=== PATIENT | female | born 1950 | race Caucasian/White ===

== ENCOUNTER 2019-02-05 10:22 | Inpatient (IN) | payer MEDICARE, SELFPAY ==
[2019-02-05 10:25] VITALS: BP 146/89; PULSE 89; RESP 16; TEMP 36.6; O2SAT 99; BMI 25.1
--- NOTE | 2019-02-05 10:43 | CT_ITS ---
STUDY: CT ABDOMEN AND PELVIS WITH CONTRAST REASON FOR EXAM: Female, 68 years old. 4 day history of right lower quadrant pain. RADIATION DOSAGE (If Supplied By Facility): CTDIvol = ( 51.88 ) mGy, DLP = ( 873.28 ) mGycm TECHNIQUE: Transaxial images were obtained from the dome of the diaphragm to the symphysis pubis with oral contrast. 100ml IV/Oral Isovue 300 was administered. Sagittal and coronal images were reconstructed. Individualized dose optimization techniques were used for this CT. COMPARISON: None. FINDINGS: Mild degree of increased markings at the lung bases suggestive of bibasilar atelectasis and/or scarring. Calcified granuloma in the right lower lobe. The visualized portions of the heart are within normal limits. There is decreased attenuation of the liver consistent with steatosis. Normal gallbladder and extrahepatic biliary system. There are multiple benign calcified granulomata of the spleen. Normal pancreas. Normal bilateral adrenal glands. There is a 4.9 cm x 4.6 cm cyst in the mid medial aspect of the right kidney. There is a Newell's cyst in the inferior posterior aspect of the left kidney. There is a small hiatal hernia. Normal small intestine. There is diverticulosis, with thickening of the rectal sigmoid colon wall, and pericolonic inflammation changes consistent with acute diverticulitis. There is evidence of a 3.1 cm x 3.7 cm soft tissue density with air within it along the mesenteric side of the rectosigmoid colon. This may represent localized perforation with phlegmon. A small amount of free fluid is seen in the cul-de-sac. There is non-visualization of the appendix. There is scattered atherosclerotic calcification of the abdominal aorta, without a demonstrated aneurysm. Normal inferior vena cava. Normal retroperitoneum. Normal urinary bladder. There is absence of the uterus consistent with a prior hysterectomy. There is a small umbilical hernia containing fat. Disc space narrowing and degeneration at the L4-L5 and L5-S1 levels. CT/Abdomen/Pelvis WITH Contrast IMPRESSION: Inflammatory changes in the rectosigmoid colon as described with findings suggestive of localized perforation and phlegmon formation as described. Radiographic follow-up is recommended. Small amount of free fluid in the cul-de-sac. Electronically Signed: Tan Willis, at 13:10 EDT , Service support ,
[2019-02-05 10:50] LABS: Absolute Lymphocyte Count 2.07 X10^3/ul (0.83-4.51); Absolute Neutrophil Count 9.5 X10^3/uL (2.0-7.7); Basophil# 0.03 X10^3/uL; Basophil% 0.2 % (0-1); Eosinophil# 0.06 X10^3/uL; Eosinophils% 0.5 % (0-5); Hematocrit 42.4 % (37-47); Hemoglobin 14.3 g/dl (12.0-15.0); Lymphocyte # 2.07 X10^3/ul (4.0); Lymphocyte % 15.8 % (19-41); Mean Corp Hgb Conc 33.7 g/gl (32-36); Mean Corpuscular Hgb 30.2 pg (27.0-32.0); Mean Corpuscular Volume 89.6 fL (81-99); Mean Platelet Vol. 9.5 fl (6.2-12.0); Monocyte# 1.43 X10^3/uL; Monocyte% 10.9 % (0-10); Neutrophil # 9.53 X10^3/uL (2.7-7.7); Neutrophil % 72.4 % (47-70); POSITIVE COUNT NO; POSITIVE DIFFERENTIAL NO; POSITIVE MORPHOLOGY NO; Platelet Count 367 K/mm3 (150-450); RBC Distribution Width CV 12.9 % (11.6-14.6); RBC Distribution Width SD 42.5 fl (35.1-43.9); Red Blood Count 4.73 M/mm3 (4.2-5.4); White Blood Count 13.1 K/mm3 (4.4-11.0)
--- NOTE | 2019-02-05 10:58 | ED.VISSUMM ---
- ER Visit Summary Date of Service: 02/05/19 Chief Complaint: Abdominal pain History of Present Illness: The patient is a 68 F who presents emergency department with 5 days of abdominal pain. Patient states that on Saturday morning she had a late breakfast and had a breakfast burrito. She states around 1230 she began to have a severe abdominal cramps. It waxed and waned since that time. She notes nausea but no vomiting. She notes slight amount of diarrhea. Subjective fever. She notes the pain is mostly on the right mid to upper side of her abdomen. She has not had appendectomy or cholecystectomy. No history of pancreatitis. Physical Examination: Afebrile vital signs are stable Gen: Well-nourished well-developed Head: Normocephalic atraumatic Eyes: Perrl EOMI ENT: TMs clear no rhinorrhea moist mucous membranes Neck: Supple no lymphadenopathy no JVD nontender CVS: Regular rate rhythm no murmurs normal S1-S2 Respiratory: No distress clear to auscultation bilaterally chest nontender Abdomen: Soft moderate tenderness on the right side of her abdomen without guarding or rebound nondistended normal bowel sounds no masses patient also reports tenderness in the suprapubic left lower quadrant Back: Nontender Extremity: Nontender no edema Skin: Normal color no rash Neuro: alert orientated ?3 CN II-XII intact normal strength sensation Psych: Normal affect normal mood Test Results: White count is elevated at 13. CT of the abdomen pelvis demonstrates sigmoid diverticulitis with perforation and phlegmon formation. Emergency Department Course and Treatment: Patient received a dose of IV Zosyn. I spoke with Dr. Porras who performed her colonoscopy as well as hospitalist. Impression: 1. Acute sigmoid perforated diverticulitis with phlegmon formation This note was generated with [employer] dictation software. It may contain incorrect words, spelling, and punctuation that were not noted in review of the chart prior to signing ED Disposition - Plan for ED Patient: Referrals: Pantera Thomas III, MD [Primary Care Provider] -
[2019-02-05 11:11] LABS: AST(SGOT) 13 U/L (15-37); Alanine Aminotransfer ALT/SGPT 18 U/L (13-56); Albumin, Serum 3.5 g/dL (3.2-5.0); Alkaline Phosphatase 97 U/L (45-117); Anion Gap 10 (5-15); BUN 23 mg/dL (7-18); Bilirubin, Direct 0.17 mg/dL (0.00-0.30); Calcium,Total 9.1 mg/dL (8.5-10.1); Chloride 103 mmol/L (98-107); EST Glomerular Filtration Rate 59 mL/min (>60); Est Glom Filt Rate - Afr Amer 71 mL/min (>60); Estimated Creatinine Clearance 55.49 ml/min; Globulin 4.6 g/dL (2.2-4.2); Glucose 130 mg/dL (74-106); Lipase 126 U/L (73-393); Potassium 3.4 mmol/L (3.5-5.1); Protein, Total 8.1 g/dL (6.4-8.2); Sodium Level 139 mmol/L (136-145)
[2019-02-05 11:22] LABS: Bacteria 0 SEEN /hpf (None Seen)
[2019-02-05 11:28] LABS: Color, Urine Yellow (Yellow); Glucose, Dipstick Normal (Normal); Ketone-Dipstick 5 mg/dl (Negative); Leukocyte Esterase-Dipstick 25 /ul (Negative); Nitrite-Dipstick Negative (Negative); Occult Blood-Urine 50 /ul (Negative); Protein-Dipstick 30 mg/dl (Negative); Specific Gravity, Urine 1.005 (1.002-1.030); Urine Bilirubin Dipstick Negative (Negative); Urine Clarity Clear (Clear); Urine Urobilinogen Normal (Normal)
[2019-02-05 11:37] LABS: Mucous, Urine 1+ /hpf (<or=2+); Red Blood Cells-Urine 0-5 SEEN /hpf (0-5); Squamous Epithelial Cells - UA 0-5 SEEN /hpf (5-10); White Blood Cells 0-5 SEEN /hpf (0-5)
--- NOTE | 2019-02-05 13:53 | PCM.HP.STD ---
Problem List (1) Acute diverticulitis Status: Acute (2) Hypertension Status: Chronic Qualifiers: Hypertension type: essential hypertension Qualified Code(s): I10 - Essential (primary) hypertension (3) Hypokalemia Status: Acute History of Present Illness Date of Admission: 02/05/19 Chief Complaint: Abdominal pain - 5 days The patient is a 68 year old F with PMHx of Hypertension, h/o breast CA s/p lumpectomy, s/p radiation and chemotherapy, s/p recent colonoscopy which showed diverticulosis, comes in with abdominal pain and anorexia. It is associated with nausea, anorexia, subjective fever and chills. She had been managing it conservatively by resting at home with no improvement. She went to urgent care this morning was told that she has a fever. Abdominal pain is described as crampy, located in the suprapubic and sometimes in the right and left lower quadrant. She denies any diarrhea or hematochezia or hematemesis. Vitals in ED showed temperature was 90 7.8F, heart rate was 89, blood pressure is 146/89, respiratory rate was 16, SPO2 is 99% on room air. Her admitting blood work showed WBC count of 13.1, hemoglobin 14.3, platelet 367, sodium is 139, potassium 3.4, chloride 103, bicarbonate 26, BUN is 23, creatinine is 1.0. UA is unremarkable. CT scan of the abdomen and pelvic showed inflammatory changes in the rectosigmoid colon, with signs suggestive of localized perforation and phlegmon formation. 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 Denies: Chills, Fever, Malaise, Weight Change Eyes: Denies: Blurred vision, Cataracts, Conjunctivae Inflammation, Pain, Redness, Vision Change HEENT: Denies: Difficulty Hearing, Difficulty Swallowing, Head Aches, Hearing Changes, Sinus Congestion, Sinus Drainage Cardiovascular: Denies: Chest Pain, Claudication, Chest Pressure, Light Headedness, Orthopnea, Palpitations, Paroxysmal Noc. Dyspnea Respiratory: Denies: Cough, Hemoptysis, Shortness of Breath, Shortness of breath at rest, Shortness of breath upon exertion, Sputum production Gastrointestinal: Reports: Abdominal Pain, Nausea. Denies: Constipation, Hematemesis, Hematochezia, Vomiting Genitourinary: Denies: Dysuria, Frequency, Incontinence Gynecological: Denies: Breast symptoms, Excessively long or heavy periods, Vaginal discharge, Vaginal itching Musculoskeletal: Denies: Joint Pain, Joint stiffness, Joint swelling, Joint Tenderness Skin: Denies: Rash, Wounds Neurological: Denies: Difficulty swallowing, Focal weakness, Numbness, Tingling Psychiatric: Denies: Anxiety, Depression, Homicidal Ideations, Suicidal Ideations Endocrine: Denies: Change in Body Habitus, Heat/ Cold Intolerance Hematologic/ Lymphatic: Denies: Easy Bruising, Easy Bleeding VTE Information - Inpt Only VTE Present on Admission: No VTE Pharm Prophylaxis ordered?: Yes Patient Problems: Active and Suspected Problems Acute diverticulitis (Acute) Hypokalemia (Acute) - Physical Exam General: Alert, Oriented x3, Cooperative, No apparent distress HEENT: Atraumatic, PERRLA, EOMI, Normocephalic Oral: Moist Mucosa Neck: Supple Lungs: Clear to auscultation, Normal air movement Cardiovascular: Regular rate, Regular Rhythm, Normal S1, Normal S2, No murmurs Abdomen: Bowel Sounds Present, Soft, Non-Distended, No Hepato-splenomegaly, Tender - tenderness over lower abdominal, with guarding, no rebound tenderness Extremities: No edema Skin: No rashes, No breakdown Musculoskeletal: No Tenderness to Palpation of Joints or Extremities Lymphatic: No Cervical, Supraclavicular, or Inguinal Adenopathy Neurological: Cranial nerves II-XII grossly intact, Neuro grossly intact Psych/Mental Status: Normal Affect, Appropriate Vital Signs Temp Pulse Resp BP Pulse Ox 97.8 F 89 16 146/89 H 99 02/05/19 10:25 02/05/19 10:25 02/05/19 10:25 02/05/19 10:25 02/05/19 10:25 Weight: 77.111 kg Body Mass Index (BMI) 25.1 Laboratory Tests Past 24 Hrs 02/05/19 02/05/19 02/05/19 10:34 10:34 11:18 WBC 13.1 H RBC 4.73 Hgb 14.3 Hct 42.4 MCV 89.6 MCH 30.2 MCHC 33.7 RDW 12.9 RDW Differential 42.5 Plt Count 367 MPV 9.5 Immature Gran % (Auto) 0.200 Neut % (Auto) 72.4 H Lymph % (Auto) 15.8 L [place] % (Auto) 10.9 H Eos % (Auto) 0.5 Baso % (Auto) 0.2 Absolute Neuts (auto) 9.5 H Absolute Lymphs (auto) 2.07 Total Counted Not Reportable Sodium 139 Potassium 3.4 L Chloride 103 Carbon Dioxide 26.0 Anion Gap 10 BUN 23 H Creatinine 1.00 Estim Creat Clear Calc 55.49 Est GFR (MDRD) Af Amer 71 Est GFR (MDRD) Non-Af 59 L BUN/Creatinine Ratio 23.0 H Glucose 130 H Calcium 9.1 Total Bilirubin 0.80 Direct Bilirubin 0.17 AST 13 L ALT 18 Alkaline Phosphatase 97 Total Protein 8.1 Albumin 3.5 Globulin 4.6 H Lipase 126 Urine Color Yellow Urine Clarity Clear Urine pH 7.0 Ur Specific [place] 1.005 Urine Protein 30 H Urine Glucose (UA) Normal Urine Ketones 5 H Urine Occult Blood 50 H Urine Nitrite Negative Urine Bilirubin Negative Urine Urobilinogen Normal Ur Leukocyte Esterase 25 H Urine RBC 0-5 SEEN Urine WBC 0-5 SEEN Ur Squamous Epith Cells 0-5 SEEN Urine Bacteria 0 SEEN Urine Mucus 1+ Assessment/Plan All Active Problems Acute diverticulitis (Acute) Hypokalemia (Acute) 68 year old F with PMHx of Hypertension, h/o breast CA s/p lumpectomy, s/p radiation and chemotherapy, s/p recent colonoscopy which showed diverticulosis, comes in with abdominal pain and anorexia. 1. Acute diverticulitis, possibly complicated with localised perforation and phlegmon formation, admitting WBC 13.1 Plan: Admit to Medsurg, NPO, General surgery, IVF, pain control, IV Unasyn, labs in am 2. Hypokalemia, K 3.4, replaced, recheck in am 3. Hypertension, controlled, continue on atenolol, Irbesartan, Hydrochlorothiazide, Will continue to monitor 4. DVT PPx- Heparin SC Code Visit Inpatient E&M: 17478 Init Hosp L3
[2019-02-05 14:04] VITALS: BP 145/79; PULSE 84; RESP 16; O2SAT 94
[2019-02-05 14:32] VITALS: BP 139/81; PULSE 82; RESP 16; TEMP 36.8; O2SAT 93; BMI 26.2
[2019-02-05 14:34] VITALS: BMI 26.3
[2019-02-05] MEDS: Potassium Chloride 40 MEQ in 0.9% Normal Saline 1,000 ML 75 MEQ IV (16:29)
[2019-02-05] MEDS: Heparin Injection (Vial) 5,000 UNIT/ML VIAL 5000 UNIT SC ×2 (16:29→21:36)
--- NOTE | 2019-02-05 16:34 | CASEMGMT ---
RN CM Assessment Introduced role of RN CM to patient and patient Dominic at bedside.? Patient is alert, oriented and able?to participate in RN CM Assessment. ?Care providers, pharmacy, and demographics verified. Presentation: Abd Pain x5 days, Nausea, Slight Diarrhea, Subjective Fever. Admit Dx: Acute Diverticulitis Re-Admit: No Barriers/Issues: None PCP: Pantera Thomas III Specialists: Onc- Dr Juarez, Cardio- Dr Norman Preferred Pharmacy: [facility] Insurance: [facility] Rx Benefit:?Yes LNOK: Dominic Cai LW/HPOA: Yes-LW, No HPOA and declined offered information. Living Arrangements:?Lives with in a Tri level home. 1-2 steps to enter home. 9 steps to get from Family Room to Bedrooms. ADL?s: Independent with ambulation and ADL's Transportation: Patient drives, to transport on DC DME: None HHC: None SNF: None Goal: Home, does not think will have any needs. Denies questions/concerns, aware CM remains available should there be changes or needs arise. DC PLAN: Home with no anticipated needs identified at this time. Jenni Alarcon RNCM
--- NOTE | 2019-02-05 16:37 | CHAPLAIN ---
Type of Pastoral Visit _x__ Initial Visit ___ Follow-up Visit ___ On-call Visit ___ General Patient Visit ___ Spiritual Assessment ___ Family Conference ___ Bereavement ___ Rapid Response ___ Code Blue ___ Other (describe below) Pastoral Care Referral From _x__ Patient ___ Family ___ Nurse ___ Physician ___ Gameplay Programmer ___ Extrusion Technician ___ Other (describe below) Sacrament/Intervention _x__ Active listening ___ Anointing ___ Confucianist ___ Bereavement ___ Communion ___ Sarai exploration ___ ___ Life review ___ Prayer ___ Reconciliation ___ Sacrament of Sick ___ Supportive presence ___ Wedding ___ Other (describe below) Pastoral Comments
[2019-02-05] MEDS: oxyCODONE 5 MG Tablet PO (17:51)
--- NOTE | 2019-02-05 19:32 | PCM.CONS.GEN ---
Reason for Consult Date of Consultation: 02/05/19 Reason for Consultation: diverticulitis with likely abscess versus phlegmon History of Present Illness: The patient is a 68 year old F who presents with a four-day history of lower abdominal pain. Last Saturday, the patient noted the onset of significant pain after feeling the sensation of a pop in her lower abdomen. The pain was relatively localized to the lower abdomen. It was relatively severe on Saturday and Saturday. It was made more severe with eating but in general the patient felt she would just tough it out at home. The patient improved somewhat Saturday but worsened over the last 2 days. She noted low-grade fever. She denied nausea or vomiting. She presented to urgent care today and was referred to [facility] emergency department. In the emergency department she was noted to have an elevated white blood cell count of 13,000. CT scan of the abdomen and pelvis was performed which demonstrated sigmoid diverticulitis with was felt to be contained perforation of either a phlegmon or an abscess. The patient was noted to be relatively comfortable without peritoneal signs on emerged from examination. The patient is well-known to me. 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 The patient has a personal history of colon polyps.I performed screening colonoscopy in August 08, 2018. No polyps were found but the patient was noted to have diverticulosis throughout the colon.diverticulosis was noted to be sporadic throughout with somewhat increased density of diverticula in the sigmoid region but overall did not seem to have a huge number or significantly large diverticula on endoscopy. the patient had a known aortic murmur and on CT scan and a questionable enlarged aortic arch. She underwent cardiac workup for these findings preoperatively for a right uncal plastic breast reduction and a left breast reduction due to asymmetry following her lumpectomy. The surgical procedure was from September 15, 2018.she had undergone an echocardiogram after my evaluation discovering a murmur. 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 she underwent a CT Jenny Gamma the chest which demonstrated moderate dilation to be relatively localized. It was recommended that this just be followed up serially. She had a normal stress test-nuclear medicine perfusion exercise scan. 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 Denies: Chills, Fever, Weight Change HEENT: Denies: Head Aches, Sinus Congestion, Sinus Drainage Cardiovascular: Denies: Chest Pain, Palpitations Respiratory: Denies: Cough, Shortness of breath at rest, Sputum production Gastrointestinal: Reports: Abdominal Pain. Denies: Nausea, Vomiting Genitourinary: Denies: Dysuria Musculoskeletal: Denies: Joint Pain, Joint Tenderness Skin: Denies: Rash, Wounds Neurological: Denies: Numbness, Tingling, Focal weakness Psychiatric: Denies: Anxiety, Depression, Homicidal Ideations, Suicidal Ideations Hematologic/ Lymphatic: Denies: Easy Bruising, Easy Bleeding Patient Problems: Active and Suspected Problems Acute diverticulitis (Acute) Hypokalemia (Acute) - Physical Exam General: Alert, Oriented x3, Cooperative HEENT: Atraumatic, PERRLA, EOMI, Normocephalic Neck: Supple, No JVD, Negative Carotid Bruits Lungs: Clear to auscultation, Normal air movement Cardiovascular: Regular rate, No murmurs Abdomen: Bowel Sounds Present, Soft, Tender - tender in the lower midabdomen maximally without diffuse peritoneal signs Extremities: No edema, Capillary Refill Less than 3 Seconds Skin: No rashes, No breakdown Musculoskeletal: No Tenderness to Palpation of Joints or Extremities Neurological: Cranial nerves II-XII grossly intact Psych/Mental Status: Normal Affect, Appropriate Vital Signs Temp Pulse Resp BP Pulse Ox 98.3 F 82 16 139/81 H 93 02/05/19 14:32 02/05/19 14:32 02/05/19 14:32 02/05/19 14:32 02/05/19 14:32 Oxygen Delivery Method Room Air Weight: 83 kg Body Mass Index (BMI) 26.2 Intake and Output for Last 24 Hours 02/03/19 02/04/19 02/05/19 23:59 23:59 23:59 Intake Total 184 / 184 Balance 184 / 184 Laboratory Tests Past 24 Hrs 02/05/19 02/05/19 02/05/19 10:34 10:34 11:18 WBC 13.1 H RBC 4.73 Hgb 14.3 Hct 42.4 MCV 89.6 MCH 30.2 MCHC 33.7 RDW 12.9 RDW Differential 42.5 Plt Count 367 MPV 9.5 Immature Gran % (Auto) 0.200 Neut % (Auto) 72.4 H Lymph % (Auto) 15.8 L [place] % (Auto) 10.9 H Eos % (Auto) 0.5 Baso % (Auto) 0.2 Absolute Neuts (auto) 9.5 H Absolute Lymphs (auto) 2.07 Total Counted Not Reportable Sodium 139 Potassium 3.4 L Chloride 103 Carbon Dioxide 26.0 Anion Gap 10 BUN 23 H Creatinine 1.00 Estim Creat Clear Calc 55.49 Est GFR (MDRD) Af Amer 71 Est GFR (MDRD) Non-Af 59 L BUN/Creatinine Ratio 23.0 H Glucose 130 H Calcium 9.1 Total Bilirubin 0.80 Direct Bilirubin 0.17 AST 13 L ALT 18 Alkaline Phosphatase 97 Total Protein 8.1 Albumin 3.5 Globulin 4.6 H Lipase 126 Urine Color Yellow Urine Clarity Clear Urine pH 7.0 Ur Specific [place] 1.005 Urine Protein 30 H Urine Glucose (UA) Normal Urine Ketones 5 H Urine Occult Blood 50 H Urine Nitrite Negative Urine Bilirubin Negative Urine Urobilinogen Normal Ur Leukocyte Esterase 25 H Urine RBC 0-5 SEEN Urine WBC 0-5 SEEN Ur Squamous Epith Cells 0-5 SEEN Urine Bacteria 0 SEEN Urine Mucus 1+ Assessment/Plan All Active Problems Acute diverticulitis (Acute) Hypokalemia (Acute) diverticulitis-abscess versus phlegmon I'm comfortable with the patient being admitted and maintained on IV antibiotics. Would plan to follow her examination sequentially. If the patient fails to improve or her symptoms worsen, I would recommend repeat CT scan to see if this collection in the pelvis appears more to be a drainable abscess then truly a phlegmon. Currently I anticipate she'll respond to conservative treatment. I'm comfortable with restarting her on liquids as she tolerates. We discussed that rarely there is the need for urgent surgical intervention based on diffuse peritonitis bowel obstruction or failure to improve. We'll watch the patient clinically for this possibility.
[2019-02-05 20:15] VITALS: BP 132/71; PULSE 85; RESP 18; TEMP 37.1; O2SAT 93
[2019-02-05] MEDS: Losartan Potassium 50 MG Tablet PO (21:36)
[2019-02-06 02:19] VITALS: BP 122/69; PULSE 80; RESP 18; TEMP 37; O2SAT 95
[2019-02-06] MEDS: oxyCODONE 5 MG Tablet PO (05:29)
[2019-02-06] MEDS: Heparin Injection (Vial) 5,000 UNIT/ML VIAL 5000 UNIT SC ×3 (05:29→21:21)
[2019-02-06 06:41] LABS: Absolute Lymphocyte Count 1.69 X10^3/ul (0.83-4.51); Absolute Neutrophil Count 6.2 X10^3/uL (2.0-7.7); Basophil# 0.02 X10^3/uL; Basophil% 0.2 % (0-1); Eosinophil# 0.13 X10^3/uL; Eosinophils% 1.5 % (0-5); Hematocrit 37.1 % (37-47); Hemoglobin 12.1 g/dl (12.0-15.0); Lymphocyte # 1.69 X10^3/ul (4.0); Lymphocyte % 18.9 % (19-41); Mean Corp Hgb Conc 32.6 g/gl (32-36); Mean Corpuscular Hgb 29.4 pg (27.0-32.0); Mean Corpuscular Volume 90.3 fL (81-99); Mean Platelet Vol. 9.4 fl (6.2-12.0); Monocyte# 0.85 X10^3/uL; Monocyte% 9.5 % (0-10); Neutrophil # 6.24 X10^3/uL (2.7-7.7); Neutrophil % 69.8 % (47-70); Platelet Count 290 K/mm3 (150-450); RBC Distribution Width SD 42.8 fl (35.1-43.9); Red Blood Count 4.11 M/mm3 (4.2-5.4); White Blood Count 8.9 K/mm3 (4.4-11.0)
[2019-02-06 06:45] LABS: POSITIVE COUNT NO; POSITIVE DIFFERENTIAL NO; POSITIVE MORPHOLOGY NO
[2019-02-06 07:01] LABS: Anion Gap 11 (5-15); BUN 18 mg/dL (7-18); BUN/Creat Ratio 27.1 RATIO (10-20); Calcium,Total 8.3 mg/dL (8.5-10.1); Chloride 109 mmol/L (98-107); Creatinine, Serum 0.66 mg/dL (0.55-1.02); EST Glomerular Filtration Rate 94 mL/min (>60); Est Glom Filt Rate - Afr Amer 113 mL/min (>60); Estimated Creatinine Clearance 57.42 ml/min; Glucose 95 mg/dL (74-106); Potassium 3.3 mmol/L (3.5-5.1); Sodium Level 142 mmol/L (136-145)
[2019-02-06 07:37] VITALS: BP 135/64; PULSE 86; RESP 16; TEMP 37.1; O2SAT 93
[2019-02-06] MEDS: Potassium Chloride 40 MEQ in 0.9% Normal Saline 1,000 ML 75 MEQ IV (08:11)
[2019-02-06] MEDS: hydroCHLOROthiazide 25 MG Tablet PO (09:35)
[2019-02-06] MEDS: Atenolol 25 MG Tablet PO (09:35)
--- NOTE | 2019-02-06 09:55 | PN.SURG_ITS ---
Patient Problems: Active and Suspected Problems Acute diverticulitis (Acute) Hypokalemia (Acute) Subjective: still in abdominal discomfort with oral intake, passing flatus - Physical Exam General: Alert, Oriented x3, Cooperative Lungs: Clear to auscultation, Normal air movement Cardiovascular: Regular rate, No murmurs Abdomen: Bowel Sounds Present, Soft, Tender - lower abdominal-slightly decreased from yesterday Vital Signs Temp Pulse Resp BP Pulse Ox 98.8 F 86 16 135/64 H 93 02/06/19 07:37 02/06/19 07:37 02/06/19 07:37 02/06/19 07:37 02/06/19 07:37 Oxygen Delivery Method Room Air Weight: 83 kg Body Mass Index (BMI) 26.2 Intake and Output for Last 24 Hours 02/04/19 02/05/19 02/06/19 23:59 23:59 23:59 Intake Total 184 / 184 1058 / 1058 Output Total 400 / 400 Balance 184 / 184 658 / 658 Laboratory Tests Past 24 Hrs 02/05/19 02/05/19 02/05/19 10:34 10:34 11:18 WBC 13.1 H RBC 4.73 Hgb 14.3 Hct 42.4 MCV 89.6 MCH 30.2 MCHC 33.7 RDW 12.9 RDW Differential 42.5 Plt Count 367 MPV 9.5 Immature Gran % (Auto) 0.200 Neut % (Auto) 72.4 H Lymph % (Auto) 15.8 L [place] % (Auto) 10.9 H Eos % (Auto) 0.5 Baso % (Auto) 0.2 Absolute Neuts (auto) 9.5 H Absolute Lymphs (auto) 2.07 Total Counted Not Reportable Sodium 139 Potassium 3.4 L Chloride 103 Carbon Dioxide 26.0 Anion Gap 10 BUN 23 H Creatinine 1.00 Estim Creat Clear Calc 55.49 Est GFR (MDRD) Af Amer 71 Est GFR (MDRD) Non-Af 59 L BUN/Creatinine Ratio 23.0 H Glucose 130 H Calcium 9.1 Total Bilirubin 0.80 Direct Bilirubin 0.17 AST 13 L ALT 18 Alkaline Phosphatase 97 Total Protein 8.1 Albumin 3.5 Globulin 4.6 H Lipase 126 Urine Color Yellow Urine Clarity Clear Urine pH 7.0 Ur Specific [place] 1.005 Urine Protein 30 H Urine Glucose (UA) Normal Urine Ketones 5 H Urine Occult Blood 50 H Urine Nitrite Negative Urine Bilirubin Negative Urine Urobilinogen Normal Ur Leukocyte Esterase 25 H Urine RBC 0-5 SEEN Urine WBC 0-5 SEEN Ur Squamous Epith Cells 0-5 SEEN Urine Bacteria 0 SEEN Urine Mucus 1+ 02/06/19 02/06/19 06:15 06:15 WBC 8.9 RBC 4.11 L Hgb 12.1 Hct 37.1 MCV 90.3 MCH 29.4 MCHC 32.6 RDW 13.0 RDW Differential 42.8 Plt Count 290 MPV 9.4 Immature Gran % (Auto) 0.100 Neut % (Auto) 69.8 Lymph % (Auto) 18.9 L [place] % (Auto) 9.5 Eos % (Auto) 1.5 Baso % (Auto) 0.2 Absolute Neuts (auto) 6.2 Absolute Lymphs (auto) 1.69 Total Counted Not Reportable Sodium 142 Potassium 3.3 L Chloride 109 H Carbon Dioxide 22.0 Anion Gap 11 BUN 18 Creatinine 0.66 Estim Creat Clear Calc 57.42 Est GFR (MDRD) Af Amer 113 Est GFR (MDRD) Non-Af 94 BUN/Creatinine Ratio 27.1 H Glucose 95 Calcium 8.3 L Total Bilirubin Direct Bilirubin AST ALT Alkaline Phosphatase Total Protein Albumin Globulin Lipase Urine Color Urine Clarity Urine pH Ur Specific [place] Urine Protein Urine Glucose (UA) Urine Ketones Urine Occult Blood Urine Nitrite Urine Bilirubin Urine Urobilinogen Ur Leukocyte Esterase Urine RBC Urine WBC Ur Squamous Epith Cells Urine Bacteria Urine Mucus Medical Necessity - Tobacco Use Smoking Status: Never smoker Tobacco Use: Non-smoker Assessment/Plan All Active Problems Acute diverticulitis (Acute) Hypokalemia (Acute) diverticulitis-abscess versus phlegmon I'm comfortable with the patient being admitted and maintained on IV antibiotics. Would plan to follow her examination sequentially. If the patient fails to improve or her symptoms worsen, I would recommend repeat CT scan to see if this collection in the pelvis appears more to be a drainable abscess then truly a phlegmon. Currently I anticipate she'll respond to conservative treatment. I'm comfortable with restarting her on liquids as she tolerates. We discussed that rarely there is the need for urgent surgical intervention based on diffuse peritonitis bowel obstruction or failure to improve. We'll watch the patient clinically for this possibility.
[2019-02-06 13:36] VITALS: BP 122/60; PULSE 71; RESP 16; TEMP 37; O2SAT 93
--- NOTE | 2019-02-06 14:35 | PCM.PN.HOSP ---
Patient Problems: Active and Suspected Problems Acute diverticulitis (Acute) Hypokalemia (Acute) Subjective: Feeling better. Cannot tolerate even ice chips without vomiting. Vitals/I&O's: Vital Signs Temp Pulse Resp BP Pulse Ox 37.0 C 71 16 122/60 H 93 02/06/19 13:36 02/06/19 13:36 02/06/19 13:36 02/06/19 13:36 02/06/19 13:36 Oxygen Delivery Method Room Air Weight: 83 kg Body Mass Index (BMI) 26.2 Intake and Output for Last 24 Hours 02/04/19 02/05/19 02/06/19 23:59 23:59 23:59 Intake Total 184 / 184 1058 / 1058 Output Total 400 / 400 Balance 184 / 184 658 / 658 General: Alert, No apparent distress HEENT: Atraumatic, Normocephalic Oral: Moist Mucosa, No Gingival or Mucosal Lesions/ Ulcerations Neck: No Nodes, Thyroid Normal Size and Texture Neurological: - - normal gait Psych/Mental Status: Normal Affect Laboratory Results 02/06/19 06:15: WBC 8.9, RBC 4.11 L, Hgb 12.1, Hct 37.1, MCV 90.3, MCH 29.4, MCHC 32.6, RDW 13.0, RDW Differential 42.8, Plt Count 290, MPV 9.4, Immature Gran % (Auto) 0.100, Neut % (Auto) 69.8, Lymph % (Auto) 18.9 L, [place] % (Auto) 9.5, Eos % (Auto) 1.5, Baso % (Auto) 0.2, Absolute Neuts (auto) 6.2, Absolute Lymphs (auto) 1.69, Total Counted Not Reportable 02/06/19 06:15: Sodium 142, Potassium 3.3 L, Chloride 109 H, Carbon Dioxide 22.0, Anion Gap 11, BUN 18, Creatinine 0.66, Estim Creat Clear Calc 57.42, Est GFR (MDRD) Af Amer 113, Est GFR (MDRD) Non-Af 94, BUN/Creatinine Ratio 27.1 H, Glucose 95, Calcium 8.3 L Current Medications Acetaminophen (Tylenol) 650 mg PO Q6H PRN PRN PRN Reason: Mild Pain (1-3)/Temp > 100.7 F Atenolol (Tenormin (Beta Pati)) 25 mg PO DAILY [facility] Last Admin: 02/06/19 09:35 Dose: 25 mg Heparin Sodium (Porcine) (Heparin Na) 5,000 unit SC Q8 [facility] Last Admin: 02/06/19 13:43 Dose: 5,000 unit Hydrochlorothiazide (Hctz) 25 mg PO DAILY [facility] Last Admin: 02/06/19 09:35 Dose: 25 mg Potassium Chloride 40 meq/ (Sodium Chloride) 1,020 mls @ 75 mls/hr IV .[id number] [facility] Stop: 02/06/19 21:14 Last Admin: 02/06/19 08:11 Dose: 75 mls/hr Ampicillin Sodium/Sulbactam Sodium 3,000 mg/ Sodium Chloride 100 mls @ 150 mls/hr IV Q6 [facility] Last Admin: 02/06/19 12:45 Dose: 150 mls/hr Losartan Potassium (Cozaar) 50 mg PO QHS [facility] Last Admin: 02/05/19 21:36 Dose: 50 mg Multivitamins (Multivitamin) 1 tablet PO QHS [facility] Oxycodone HCl (Oxyir) 5 mg PO Q4H PRN PRN PRN Reason: Moderate Pain (4-6/10) Last Admin: 02/06/19 05:29 Dose: 5 mg Sodium Chloride () 5 - 15 ml IV UD PRN PRN Reason: SALINE FLUSH Medical Necessity - Tobacco Use Smoking Status: Never smoker Tobacco Use: Non-smoker Assessment/Plan All Active Problems Acute diverticulitis (Acute) Hypokalemia (Acute) 1. acute diverticulitis localized perf and phlegmon improved, but still uncomfortable per surgery, advance to clears continue Unasyn reimage if worse 2. VTE proph: SQ heparin Code Visit Inpatient E&M: 18536 Subs Hosp L1
--- NOTE | 2019-02-06 14:39 | PN_ITS ---
Patient Problems: Active and Suspected Problems Acute diverticulitis (Acute) Hypokalemia (Acute) Subjective: Feeling better. Cannot tolerate even ice chips without vomiting. Vitals/I&O's: Vital Signs Temp Pulse Resp BP Pulse Ox 37.0 C 71 16 122/60 H 93 02/06/19 13:36 02/06/19 13:36 02/06/19 13:36 02/06/19 13:36 02/06/19 13:36 Oxygen Delivery Method Room Air Weight: 83 kg Body Mass Index (BMI) 26.2 Intake and Output for Last 24 Hours 02/04/19 02/05/19 02/06/19 23:59 23:59 23:59 Intake Total 184 / 184 1058 / 1058 Output Total 400 / 400 Balance 184 / 184 658 / 658 General: Alert, No apparent distress HEENT: Atraumatic, Normocephalic Oral: Moist Mucosa, No Gingival or Mucosal Lesions/ Ulcerations Neck: No Nodes, Thyroid Normal Size and Texture Neurological: - - normal gait Psych/Mental Status: Normal Affect Laboratory Results 02/06/19 06:15: WBC 8.9, RBC 4.11 L, Hgb 12.1, Hct 37.1, MCV 90.3, MCH 29.4, MCHC 32.6, RDW 13.0, RDW Differential 42.8, Plt Count 290, MPV 9.4, Immature Gran % (Auto) 0.100, Neut % (Auto) 69.8, Lymph % (Auto) 18.9 L, [place] % (Auto) 9.5, Eos % (Auto) 1.5, Baso % (Auto) 0.2, Absolute Neuts (auto) 6.2, Absolute Lymphs (auto) 1.69, Total Counted Not Reportable 02/06/19 06:15: Sodium 142, Potassium 3.3 L, Chloride 109 H, Carbon Dioxide 22.0, Anion Gap 11, BUN 18, Creatinine 0.66, Estim Creat Clear Calc 57.42, Est GFR (MDRD) Af Amer 113, Est GFR (MDRD) Non-Af 94, BUN/Creatinine Ratio 27.1 H, Glucose 95, Calcium 8.3 L Current Medications Acetaminophen (Tylenol) 650 mg PO Q6H PRN PRN PRN Reason: Mild Pain (1-3)/Temp > 100.7 F Atenolol (Tenormin (Beta Pati)) 25 mg PO DAILY [facility] Last Admin: 02/06/19 09:35 Dose: 25 mg Heparin Sodium (Porcine) (Heparin Na) 5,000 unit SC Q8 [facility] Last Admin: 02/06/19 13:43 Dose: 5,000 unit Hydrochlorothiazide (Hctz) 25 mg PO DAILY [facility] Last Admin: 02/06/19 09:35 Dose: 25 mg Potassium Chloride 40 meq/ (Sodium Chloride) 1,020 mls @ 75 mls/hr IV .[id number] [facility] Stop: 02/06/19 21:14 Last Admin: 02/06/19 08:11 Dose: 75 mls/hr Ampicillin Sodium/Sulbactam Sodium 3,000 mg/ Sodium Chloride 100 mls @ 150 mls/hr IV Q6 [facility] Last Admin: 02/06/19 12:45 Dose: 150 mls/hr Losartan Potassium (Cozaar) 50 mg PO QHS [facility] Last Admin: 02/05/19 21:36 Dose: 50 mg Multivitamins (Multivitamin) 1 tablet PO QHS [facility] Oxycodone HCl (Oxyir) 5 mg PO Q4H PRN PRN PRN Reason: Moderate Pain (4-6/10) Last Admin: 02/06/19 05:29 Dose: 5 mg Sodium Chloride () 5 - 15 ml IV UD PRN PRN Reason: SALINE FLUSH Medical Necessity - Tobacco Use Smoking Status: Never smoker Tobacco Use: Non-smoker Assessment/Plan All Active Problems Acute diverticulitis (Acute) Hypokalemia (Acute) 1. acute diverticulitis * localized perf and phlegmon * improved, but still uncomfortable * per surgery, advance to clears * continue Unasyn * reimage if worse 2. VTE proph: SQ heparin Code Visit Inpatient E&M: 99074 Subs Hosp L1
[2019-02-06 20:06] VITALS: BP 130/71; PULSE 66; RESP 16; TEMP 36.9; O2SAT 94
[2019-02-06] MEDS: Multivitamins,Therapeutic Tablet 1 TABLET PO (21:21)
[2019-02-06] MEDS: Losartan Potassium 50 MG Tablet PO (21:21)
[2019-02-07 02:00] VITALS: BP 141/79; PULSE 66; RESP 16; TEMP 36.3; O2SAT 94
[2019-02-07] MEDS: Hydrocortisone 2.5% Crm 1 APPLIC TOPICAL (03:10)
[2019-02-07] MEDS: Heparin Injection (Vial) 5,000 UNIT/ML VIAL 5000 UNIT SC ×3 (05:18→20:23)
[2019-02-07 08:32] VITALS: BP 147/82; PULSE 67; RESP 18; TEMP 36.3; O2SAT 95
[2019-02-07] MEDS: hydroCHLOROthiazide 25 MG Tablet PO (08:33)
[2019-02-07] MEDS: Atenolol 25 MG Tablet PO (08:33)
--- NOTE | 2019-02-07 08:44 | PCM.PN.SRG ---
Patient Problems: Active and Suspected Problems Acute diverticulitis (Acute) Hypokalemia (Acute) Subjective: felling less pain, tolerating ice chips - Physical Exam General: Alert, Oriented x3, Cooperative HEENT: Atraumatic, PERRLA, EOMI, Normocephalic Neck: Supple, No JVD, Negative Carotid Bruits Lungs: Clear to auscultation, Normal air movement Cardiovascular: Regular rate, No murmurs Abdomen: Bowel Sounds Present, Soft, Non Tender Extremities: No edema, Capillary Refill Less than 3 Seconds Skin: No rashes, No breakdown Musculoskeletal: No Tenderness to Palpation of Joints or Extremities Neurological: Cranial nerves II-XII grossly intact Psych/Mental Status: Normal Affect, Appropriate Vital Signs Temp Pulse Resp BP Pulse Ox 97.4 F L 67 18 147/82 H 95 02/07/19 08:32 02/07/19 08:32 02/07/19 08:32 02/07/19 08:32 02/07/19 08:32 Oxygen Delivery Method Room Air Weight: 83 kg Body Mass Index (BMI) 26.2 Intake and Output for Last 24 Hours 02/05/19 02/06/19 02/07/19 23:59 23:59 23:59 Intake Total 184 / 184 1058 / 1058 1767 / 1767 Output Total 400 / 400 300 / 300 Balance 184 / 184 658 / 658 1467 / 1467 Medical Necessity - Tobacco Use Smoking Status: Never smoker Tobacco Use: Non-smoker Assessment/Plan All Active Problems Acute diverticulitis (Acute) Hypokalemia (Acute) diverticulitis-abscess versus phlegmon I'm comfortable with the patient being admitted and maintained on IV antibiotics. Would plan to follow her examination sequentially. If the patient fails to improve or her symptoms worsen, I would recommend repeat CT scan to see if this collection in the pelvis appears more to be a drainable abscess then truly a phlegmon. Currently I anticipate she'll respond to conservative treatment. I'm comfortable with restarting her on liquids as she tolerates. We discussed that rarely there is the need for urgent surgical intervention based on diffuse peritonitis bowel obstruction or failure to improve. We'll watch the patient clinically for this possibility. Given findings of abscess versus phelgmon, would repeat non contrast pelvic CT in AM to assure it is improving.
--- NOTE | 2019-02-07 10:13 | PN_ITS ---
Patient Problems: Active and Suspected Problems Acute diverticulitis (Acute) Hypokalemia (Acute) Subjective: Feeling better. Decreased abdominal pain. Still with abdominal distention. Vitals/I&O's: Vital Signs Temp Pulse Resp BP Pulse Ox 36.3 C L 67 18 147/82 H 95 02/07/19 08:32 02/07/19 08:32 02/07/19 08:32 02/07/19 08:32 02/07/19 08:32 Oxygen Delivery Method Room Air Weight: 83 kg Body Mass Index (BMI) 26.2 Intake and Output for Last 24 Hours 02/05/19 02/06/19 02/07/19 23:59 23:59 23:59 Intake Total 184 / 184 1058 / 1058 1767 / 1767 Output Total 400 / 400 300 / 300 Balance 184 / 184 658 / 658 1467 / 1467 General: Alert, No apparent distress HEENT: Atraumatic, Normocephalic Oral: Moist Mucosa, No Gingival or Mucosal Lesions/ Ulcerations Neck: No Nodes, Thyroid Normal Size and Texture Lungs: Clear to auscultation, Normal air movement, No rhonchi, No wheeze Cardiovascular: Regular rate, Regular Rhythm, Normal S1, Normal S2, No murmurs Abdomen: Bowel Sounds Present, Soft, Distended - slight, not taught, Tender - slight Extremities: No edema, No Calf Tenderness Psych/Mental Status: Normal Affect, Appropriate Current Medications Acetaminophen (Tylenol) 650 mg PO Q6H PRN PRN PRN Reason: Mild Pain (1-3)/Temp > 100.7 F Atenolol (Tenormin (Beta Pati)) 25 mg PO DAILY [facility] Last Admin: 02/07/19 08:33 Dose: 25 mg Heparin Sodium (Porcine) (Heparin Na) 5,000 unit SC Q8 [facility] Last Admin: 02/07/19 05:18 Dose: 5,000 unit Hydrochlorothiazide (Hctz) 25 mg PO DAILY [facility] Last Admin: 02/07/19 08:33 Dose: 25 mg Hydrocortisone (Hytone) 1 applic TOPICAL BID PRN PRN; Protocol PRN Reason: ITCHING Ampicillin Sodium/Sulbactam Sodium 3,000 mg/ Sodium Chloride 100 mls @ 150 mls/hr IV Q6 [facility] Last Admin: 02/07/19 05:18 Dose: 150 mls/hr Losartan Potassium (Cozaar) 50 mg PO QHS [facility] Last Admin: 02/06/19 21:21 Dose: 50 mg Multivitamins (Multivitamin) 1 tablet PO QHS [facility] Last Admin: 02/06/19 21:21 Dose: 1 tablet Oxycodone HCl (Oxyir) 5 mg PO Q4H PRN PRN PRN Reason: Moderate Pain (4-6/10) Last Admin: 02/06/19 05:29 Dose: 5 mg Sodium Chloride () 5 - 15 ml IV UD PRN PRN Reason: SALINE FLUSH Medical Necessity - Tobacco Use Smoking Status: Never smoker Tobacco Use: Non-smoker Assessment/Plan All Active Problems Acute diverticulitis (Acute) Hypokalemia (Acute) 1. acute diverticulitis * localized perf and phlegmon * improved, but still uncomfortable * per surgery, advance to clears * continue Unasyn * CT on 02/08 * IVF 2. VTE proph: SQ heparin Code Visit Inpatient E&M: 60680 Subs Hosp L2
[2019-02-07 14:30] VITALS: BP 153/78; PULSE 61; RESP 18; TEMP 36.6; O2SAT 95
[2019-02-07 20:08] VITALS: BP 161/81; PULSE 70; RESP 18; TEMP 36.7; O2SAT 97
[2019-02-07] MEDS: Losartan Potassium 50 MG Tablet PO (20:22)
[2019-02-07] MEDS: Multivitamins,Therapeutic Tablet 1 TABLET PO (20:23)
[2019-02-08 03:07] VITALS: BP 139/74; PULSE 65; RESP 16; TEMP 36.4; O2SAT 98
[2019-02-08] MEDS: Heparin Injection (Vial) 5,000 UNIT/ML VIAL 5000 UNIT SC (05:56)
--- NOTE | 2019-02-08 07:00 | CT_ITS ---
STUDY: CT PELVIS WITHOUT CONTRAST REASON FOR EXAM: Female, 68 years old. History of diverticulitis. Follow-up exam. RADIATION DOSAGE (If Supplied By Facility): CTDIvol = ( 17.29 ) mGy, DLP = ( 604.47 ) mGycm TECHNIQUE: Transaxial imaging of the pelvis was performed with oral contrast, and without intravenous administration of contrast material. Individualized dose optimization techniques were used for this CT. COMPARISON: 02/05/2019. FINDINGS: Partially visualized bilateral renal cysts are again seen. The bladder is suboptimally distended. The visualized small bowel loops are normal in caliber. There again is diverticulosis of the sigmoid colon with thickening and pericolonic inflammatory changes consistent with acute diverticulitis slightly improved since the previous examination. Focal thickening of the rectosigmoid colon is again seen but there is no evidence of drainable abscess. The previously noted adjacent free fluid has decreased. There is no evidence of free air. Diverticulosis of the descending colon is again seen. There is residual minimal fluid. There is no pelvic mass lesion or lymphadenopathy. Normal visualized pelvic arteries. There is is more umbilical hernia containing fat. Degenerative changes in the lower lumbar spine are again seen. CT/Pelvis without IV Contrast IMPRESSION: 1. Diverticulitis of the sigmoid colon as described above slightly improved since previous examination. 2. No drainable abscess is seen at this time. Electronically Signed: Vern Brown MD at 8:34 EDT Tel , Service support ,
--- NOTE | 2019-02-08 07:18 | PCA ---
pt off floor
[2019-02-08 07:50] LABS: Anion Gap 8 (5-15); BUN 9 mg/dL (7-18); BUN/Creat Ratio 13.4 RATIO (10-20); Calcium,Total 8.8 mg/dL (8.5-10.1); Chloride 107 mmol/L (98-107); Creatinine, Serum 0.67 mg/dL (0.55-1.02); EST Glomerular Filtration Rate 92 mL/min (>60); Est Glom Filt Rate - Afr Amer 112 mL/min (>60); Estimated Creatinine Clearance 57.42 ml/min; Glucose 94 mg/dL (74-106); Potassium 3.8 mmol/L (3.5-5.1); Sodium Level 139 mmol/L (136-145)
[2019-02-08 08:10] VITALS: BP 167/84; PULSE 68; RESP 18; TEMP 36.6; O2SAT 94
[2019-02-08] MEDS: Atenolol 25 MG Tablet PO (08:13)
[2019-02-08] MEDS: hydroCHLOROthiazide 25 MG Tablet PO (08:13)
[2019-02-08 09:51] VITALS: BP 165/91
--- NOTE | 2019-02-08 11:07 | PCM.PN.SRG ---
Patient Problems: Active and Suspected Problems Acute diverticulitis (Acute) Hypokalemia (Acute) Subjective: feeling better - Physical Exam Abdomen: - - benign Vital Signs Temp Pulse Resp BP Pulse Ox 97.9 F 68 18 165/91 H 94 02/08/19 08:10 02/08/19 08:10 02/08/19 08:10 02/08/19 09:51 02/08/19 08:10 Oxygen Delivery Method Room Air Weight: 83 kg Body Mass Index (BMI) 26.2 Intake and Output for Last 24 Hours 02/06/19 02/07/19 02/08/19 23:59 23:59 23:59 Intake Total 1058 / 1058 3128 / 3128 2041 / 2041 Output Total 400 / 400 300 / 300 3050 / 3050 Balance 658 / 658 2828 / 2828 -1009 / -1009 Laboratory Tests Past 24 Hrs 02/08/19 07:00 Sodium 139 Potassium 3.8 Chloride 107 Carbon Dioxide 24.0 Anion Gap 8 BUN 9 Creatinine 0.67 Estim Creat Clear Calc 57.42 Est GFR (MDRD) Af Amer 112 Est GFR (MDRD) Non-Af 92 BUN/Creatinine Ratio 13.4 Glucose 94 Calcium 8.8 Medical Necessity - Tobacco Use Smoking Status: Never smoker Tobacco Use: Non-smoker Assessment/Plan All Active Problems Acute diverticulitis (Acute) Hypokalemia (Acute) diverticulitis-abscess versus phlegmon I'm comfortable with the patient being admitted and maintained on IV antibiotics. Would plan to follow her examination sequentially. If the patient fails to improve or her symptoms worsen, I would recommend repeat CT scan to see if this collection in the pelvis appears more to be a drainable abscess then truly a phlegmon. Currently I anticipate she'll respond to conservative treatment. I'm comfortable with restarting her on liquids as she tolerates. We discussed that rarely there is the need for urgent surgical intervention based on diffuse peritonitis bowel obstruction or failure to improve. We'll watch the patient clinically for this possibility. repeat non contrast pelvic CT demonstrates no true abscess in fact the phlegmon looks somewhat improved and what I thought was likely phlegmon may be just more curvature of the colon. Overall the site looks better to be area I'm comfortable with her being discharged home on oral antibiotics and low residue diet for the next few days. I would like for follow-up my office this coming .
--- NOTE | 2019-02-08 12:40 | DCINST_ITS ---
- Discharge Diagnoses Current Active Problems: Current Active and Chronic Problems Acute diverticulitis (Acute) Hypertension (Chronic) Hypokalemia (Acute) You will use the following diet at home:: No restrictions Your food should be the consistency of: Regular Your liquids should be the consistency of: Regular/Thin Discharge Activity: Return to Normal Activity Call your doctor if you observe: Fever of 101 or Higher, - - worsening abdominal pain. Allergies/Adverse Reactions: Allergies ENVIRONMENTAL Allergy (Uncoded 02/05/19 10:24) Itching Medications to take at Discharge Multivitamins,Therapeutic [Multivitamin] 1 tab PO QHS 10/12/13 Atenolol 50 mg PO DAILY 02/05/19 Irbesartan 300 mg PO DAILY 02/05/19 hydroCHLOROthiazide [Hydrochlorothiazide] 12.5 mg PO DAILY 02/05/19 Amox/Clavulanate Tablet [Augmentin Tablet] 875 mg PO Q12H #14 tablet 02/08/19 Ondansetron [Zofran] 8 mg PO Q8H PRN PRN #20 tablet 02/08/19 The following prescriptions were given: Ondansetron [Zofran] 8 mg PO Q8H PRN PRN #20 tablet PRN Reason: nausea vomiting Amox/Clavulanate Tablet [Augmentin Tablet] 875 mg PO Q12H #14 tablet Primary Care Physician: Pantera Thomas III, MD [Primary Care Provider] - Within 2 Weeks Test Results: Test results from this visit will be discussed in further detail at your follow- up appointment, if applicable. Please Follow Up With: Meng Moon MD When: 02/12/19 Proposed Discharge Date: 02/08/19
--- NOTE | 2019-02-08 12:40 | PCM.DC.SUM ---
Discharge Date and Diagnosis - Problem List Patient Problems: Active and Suspected Problems Acute diverticulitis (Acute) Hypokalemia (Acute) Date of Admission: 02/05/19 Date of Discharge: 02/08/19 - Primary Discharge Diagnosis Active and Suspected Problems Acute diverticulitis (Acute) Hypokalemia (Acute) - Secondary Discharge Diagnosis Chronic Problems Hypertension (Chronic) Hospital Course and Treatment Imaging Results: 02/08/19 07:00 CT Pel [Pelvis without IV Contrast] [CT] Urgent Clinical Impression(s) from Imaging Studies Abdomen/Pelvis CT 02/05/19 10:43 IMPRESSION: Inflammatory changes in the rectosigmoid colon as described with findings suggestive of localized perforation and phlegmon formation as described. Radiographic follow-up is recommended. Small amount of free fluid in the cul-de-sac. Electronically Signed: Tan Willis, at 13:10 EDT , Service support , Pelvis CT 02/08/19 07:00 IMPRESSION: 1. Diverticulitis of the sigmoid colon as described above slightly improved since previous examination. 2. No drainable abscess is seen at this time. Electronically Signed: Vern Brown MD at 8:34 EDT Tel , Service support , Meng Moon MD: general surgery. Operations: None Procedures: None Summary of Care Provided: The patient is a 68 year old F presents with 5 days of abdominal pain. Had a CT that showed inflammatory changes and possible localized perforation and phlegmon. Seen by general surgery and no surgical intervention was necessary. Patient did have a repeat scan that showed overall improvement and no abscess formation. Patient was on Unasyn while she was here patient will be discharged with Augmentin upon discharge. She will follow-up with Dr. Moon on the 6. [] Patient Problems: Active and Suspected Problems Acute diverticulitis (Acute) Hypokalemia (Acute) - Physical Exam General: Alert, No apparent distress HEENT: Atraumatic, Normocephalic Oral: Moist Mucosa, No Gingival or Mucosal Lesions/ Ulcerations Neck: No Nodes, Thyroid Normal Size and Texture Lungs: Clear to auscultation, Normal air movement, No rhonchi, No wheeze Cardiovascular: Regular rate, Regular Rhythm, Normal S1, Normal S2, No murmurs Abdomen: Bowel Sounds Present, Soft, Non Tender, Non-Distended Vital Signs Temp Pulse Resp BP Pulse Ox 36.6 C 68 18 165/91 H 94 02/08/19 08:10 02/08/19 08:10 02/08/19 08:10 02/08/19 09:51 02/08/19 08:10 Oxygen Delivery Method Room Air Weight: 83 kg Body Mass Index (BMI) 26.2 Intake and Output for Last 24 Hours 02/06/19 02/07/19 02/08/19 23:59 23:59 23:59 Intake Total 1058 / 1058 3128 / 3128 2040 / 204 Output Total 400 / 400 300 / 300 3050 / 3050 Balance 658 / 658 2828 / 2828 -1009 / -1009 Laboratory Tests Past 24 Hrs 02/08/19 07:00 Sodium 139 Potassium 3.8 Chloride 107 Carbon Dioxide 24.0 Anion Gap 8 BUN 9 Creatinine 0.67 Estim Creat Clear Calc 57.42 Est GFR (MDRD) Af Amer 112 Est GFR (MDRD) Non-Af 92 BUN/Creatinine Ratio 13.4 Glucose 94 Calcium 8.8 Discharge Diet: - - Low residue diet Discharge Activity: Return to Normal Activity Call your doctor if you observe: Fever of 101 or Higher, - - worsening abdominal pain. Home Medications: Medications to take at Discharge Multivitamins,Therapeutic [Multivitamin] 1 tab PO QHS 10/12/13 Atenolol 50 mg PO DAILY 02/05/19 Irbesartan 300 mg PO DAILY 02/05/19 hydroCHLOROthiazide [Hydrochlorothiazide] 12.5 mg PO DAILY 02/05/19 Amox/Clavulanate Tablet [Augmentin Tablet] 875 mg PO Q12H #14 tablet 02/08/19 Ondansetron [Zofran] 8 mg PO Q8H PRN PRN #20 tablet 02/08/19 Following Prescrptions Were Given to Patient: Ondansetron [Zofran] 8 mg PO Q8H PRN PRN #20 tablet PRN Reason: nausea vomiting Amox/Clavulanate Tablet [Augmentin Tablet] 875 mg PO Q12H #14 tablet Primary Care Physician: Pantera Thomas III, MD [Primary Care Provider] - Within 2 Weeks Please Follow Up With: Meng Moon MD When: 02/12/19 Disposition: Home Minutes spent on discharge:: 32 Patient Condition:: Good Medical Necessity - Tobacco Use Smoking Status: Never smoker Tobacco Use: Non-smoker Meaningful Use Info Meaningful Use Diagnoses (Choose all that apply): None applicable Code Visit Inpatient E&M: 20846 Disch Hosp
--- NOTE | 2019-02-08 12:45 | DS.PCM_ITS ---
Discharge Date and Diagnosis - Problem List Patient Problems: Active and Suspected Problems Acute diverticulitis (Acute) Hypokalemia (Acute) Date of Admission: 02/05/19 Date of Discharge: 02/08/19 - Primary Discharge Diagnosis Active and Suspected Problems Acute diverticulitis (Acute) Hypokalemia (Acute) - Secondary Discharge Diagnosis Chronic Problems Hypertension (Chronic) Hospital Course and Treatment Imaging Results: 02/08/19 07:00 CT Pel [Pelvis without IV Contrast] [CT] Urgent Clinical Impression(s) from Imaging Studies Abdomen/Pelvis CT 02/05/19 10:43 IMPRESSION: Inflammatory changes in the rectosigmoid colon as described with findings suggestive of localized perforation and phlegmon formation as described. Radiographic follow-up is recommended. Small amount of free fluid in the cul-de-sac. Electronically Signed: Tan Willis, at 13:10 EDT , Service support , Pelvis CT 02/08/19 07:00 IMPRESSION: 1. Diverticulitis of the sigmoid colon as described above slightly improved since previous examination. 2. No drainable abscess is seen at this time. Electronically Signed: Vren Brown MD at 8:34 EDT Tel , Service support , Meng Moon MD: general surgery. Operations: None Procedures: None Summary of Care Provided: The patient is a 68 year old F presents with 5 days of abdominal pain. Had a CT that showed inflammatory changes and possible localized perforation and phlegmon. Seen by general surgery and no surgical intervention was necessary. Patient did have a repeat scan that showed overall improvement and no abscess formation. Patient was on Unasyn while she was here patient will be discharged with Augmentin upon discharge. She will follow-up with Dr. Moon on the 6. [] Patient Problems: Active and Suspected Problems Acute diverticulitis (Acute) Hypokalemia (Acute) - Physical Exam General: Alert, No apparent distress HEENT: Atraumatic, Normocephalic Oral: Moist Mucosa, No Gingival or Mucosal Lesions/ Ulcerations Neck: No Nodes, Thyroid Normal Size and Texture Lungs: Clear to auscultation, Normal air movement, No rhonchi, No wheeze Cardiovascular: Regular rate, Regular Rhythm, Normal S1, Normal S2, No murmurs Abdomen: Bowel Sounds Present, Soft, Non Tender, Non-Distended Vital Signs Temp Pulse Resp BP Pulse Ox 36.6 C 68 18 165/91 H 94 02/08/19 08:10 02/08/19 08:10 02/08/19 08:10 02/08/19 09:51 02/08/19 08:10 Oxygen Delivery Method Room Air Weight: 83 kg Body Mass Index (BMI) 26.2 Intake and Output for Last 24 Hours 02/06/19 02/07/19 02/08/19 23:59 23:59 23:59 Intake Total 1058 / 1058 3128 / 3128 2040 / 204 Output Total 400 / 400 300 / 300 3050 / 3050 Balance 658 / 658 2828 / 2828 -1009 / -1009 Laboratory Tests Past 24 Hrs 02/08/19 07:00 Sodium 139 Potassium 3.8 Chloride 107 Carbon Dioxide 24.0 Anion Gap 8 BUN 9 Creatinine 0.67 Estim Creat Clear Calc 57.42 Est GFR (MDRD) Af Amer 112 Est GFR (MDRD) Non-Af 92 BUN/Creatinine Ratio 13.4 Glucose 94 Calcium 8.8 Discharge Diet: - - Low residue diet Discharge Activity: Return to Normal Activity Call your doctor if you observe: Fever of 101 or Higher, - - worsening abdominal pain. Home Medications: Medications to take at Discharge Multivitamins,Therapeutic [Multivitamin] 1 tab PO QHS 10/12/13 Atenolol 50 mg PO DAILY 02/05/19 Irbesartan 300 mg PO DAILY 02/05/19 hydroCHLOROthiazide [Hydrochlorothiazide] 12.5 mg PO DAILY 02/05/19 Amox/Clavulanate Tablet [Augmentin Tablet] 875 mg PO Q12H #14 tablet 02/08/19 Ondansetron [Zofran] 8 mg PO Q8H PRN PRN #20 tablet 02/08/19 Following Prescrptions Were Given to Patient: Ondansetron [Zofran] 8 mg PO Q8H PRN PRN #20 tablet PRN Reason: nausea vomiting Amox/Clavulanate Tablet [Augmentin Tablet] 875 mg PO Q12H #14 tablet Primary Care Physician: Pantera Thomas III, MD [Primary Care Provider] - Within 2 Weeks Please Follow Up With: Meng Moon MD When: 02/12/19 Disposition: Home Minutes spent on discharge:: 32 Patient Condition:: Good Medical Necessity - Tobacco Use Smoking Status: Never smoker Tobacco Use: Non-smoker Meaningful Use Info Meaningful Use Diagnoses (Choose all that apply): None applicable Code Visit Inpatient E&M: 37830 Disch Hosp
== END 2019-02-08 12:53 | disposition home or self-care (01) | DRG 392 ==
LOC: ED 11:00 → MS2 14:04
PROVIDERS: Admitting Provider Internal Medicine; Emergency Provider Emergency Medicine; Family Provider Family Medicine; PCP Family Medicine
DX: K57.20 Diverticulitis of large intestine with perforation and abscess without bleeding (principal); E87.6 Hypokalemia; I10 Essential (primary) hypertension; R01.1 Cardiac murmur, unspecified
CPT/HCPCS: 36415; 72192; 74177; 80048; 80076; 81001; 83690; 85025; 99284; J7030; Q9967; J0295

== ENCOUNTER → 2019-08-18 09:58 | Outpatient (CLI) | payer MEDICARE, SELFPAY ==
[2019-04-30 11:14] VITALS: BMI 26.3
--- NOTE | 2019-08-18 10:00 | ECHOD_ITS ---
Reason For Study: Thoracic Aortic Aneurysm Procedure This was a 2D Doppler, Color Flow transthoracic echocardiogram. Myocardial strain analysis was performed in this exam to aid in the assessment of cardiac function. Contrast injection was performed. Exam performed in department. Left Ventricle Normal LV size. Left ventricular systolic function is normal. The estimated ejection fraction is 60 %. The global longitudinal strain = -20 % (normal). Diastolic function is indeterminate. No regional wall motion abnormalities noted. Right Ventricle Normal RV size. Normal systolic function. Atria The left atrium is mildly enlarged. Normal right atrium. No doppler evidence for ASD. Bubble contrast study negative for right to left interatrial shunt. Mitral Valve There is no mitral annular calcification. Mild diffuse mitral valve thickening. Moderate (2+) eccentric mitral valve insufficiency. Tricuspid Valve Normal tricuspid valve. Mild tricuspid valve insufficiency. Right ventricular systolic pressure estimated to be 28 mmHg. Aortic Valve Trisinus/trileaflet aortic valve. Normal aortic valve. Trivial aortic valve insufficiency. Pulmonic Valve The pulmonic valve is not well visualized. Great Vessels The ascending aorta is moderately dilated. Pericardium/Pleural No pericardial effusion. Medication 22 gauge I.V. with prn adaptor inserted into right arm. Performed a rapid injection of agitated mix of 9 cc saline and 1cc air to assess for atrial septal defect. MMode/2D Measurements & Calculations LVIDd: 5.4 cm IVSd: 1.1 cm Ao root diam: 3.8 cm LVIDs: 3.1 cm LVPWd: 1.0 cm LA dimension: 4.3 cm RVDd: 4.0 cm FS: 41.5 % LAV(MOD-bp): 69.3 ml LA A4 area: 22.2 cm2 RA A4 area: 13.7 cm2 LAV(MOD-bp) Indexed: 35.5 ml/m2 LAV(MOD-sp2): 68.5 ml LAV(MOD-sp4): 63.4 ml Time Measurements MV dec time: 0.35 sec Doppler Measurements & Calculations MV E max camron: 64.7 cm/sec Lat Peak E' Camron: 6.8 cm/sec Med Peak E' Camron: 6.2 cm/sec MV A max camron: 77.1 cm/sec E/E' lat: 9.5 E/E' med: 10.4 MV E/A: 0.84 MV V2 max: 80.3 cm/sec MV P1/2t max camron: 71.9 cm/sec Ao V2 max: 109.5 cm/sec MV max P.6 mmHg MV P1/2t: 78.0 msec Ao max P.8 mmHg MV V2 mean: 46.6 cm/sec MV dec slope: 270.1 cm/sec2 MV mean P.99 mmHg MV V2 VTI: 27.0 cm MVA(P1/2t): 2.8 cm2 AI max camron: 362.2 cm/sec LV V1 max: 92.5 cm/sec MR max camron: 603.7 cm/sec AI max P.6 mmHg LV V1 max P.4 mmHg MR max P.8 mmHg AI dec slope: 140.0 cm/sec2 MR mean camron: 462.5 cm/sec AI P1/2t: 757.6 msec MR mean P.9 mmHg MR VTI: 239.3 cm PA V2 max: 58.9 cm/sec TR max camron: 247.8 cm/sec TR max P.6 mmHg Interpretation Summary Contrast injection was performed. Left ventricular systolic function is normal. The estimated ejection fraction is 60 %. The global longitudinal strain = -20 % (normal). The left atrium is mildly enlarged. Mild diffuse mitral valve thickening. Moderate (2+) eccentric mitral valve insufficiency. Mild tricuspid valve insufficiency. Trivial aortic valve insufficiency. The ascending aorta is moderately dilated. (approximately 4.9 cm) Right ventricular systolic pressure estimated to be 28 mmHg. Diastolic function is indeterminate. Ordering Physician: Dominic Valencia Referring Physician: LISA Thomas M.D. Performed By: Mickey Rivera RCS
== END ==
PROVIDERS: Family Provider Family Medicine; PCP Family Medicine; Referring Provider Internal Medicine Cardiovascular Disease; Visit Provider Internal Medicine Cardiovascular Disease
DX: I71.2 Thoracic aortic aneurysm, without rupture (principal)
CPT/HCPCS: 93306; A4216

== ENCOUNTER → 2020-05-10 08:18 | Outpatient (CLI) | payer MEDICARE, SELFPAY ==
[2020-05-02 09:55] VITALS: BMI 26.9
--- NOTE | 2020-05-10 08:21 | CT_ITS ---
STUDY: CT CHEST WITH CONTRAST REASON FOR EXAM: Female, 69 years old. THORACIC AORTIC ANEURYSM, HX BREAST CA RADIATION DOSAGE (If Supplied By Facility): CTDIvol = ( 14.89 ) mGy, DLP = ( 651.09 ) mGycm TECHNIQUE: Transaxial imaging was performed following intravenous administration of IV 100mL Isovue-370. Multiplanar coronal and sagittal images were reformatted. Individualized dose optimization techniques were used for this CT. COMPARISON: None. FINDINGS: Minimal degree of increased markings in the medial aspect of the right middle lobe as well as in the lower lobes suggestive of scarring. There is no demonstrated pleural abnormality. There is mild cardiac enlargement. Left ventricular hypertrophy. Normal mediastinum. Normal hilar regions. Normal enhanced pulmonary arteries. There is dilatation of the root of the ascending aorta with a transverse dimension of 50.3 mm. There are multi-level degenerative changes of the thoracic spine. Increased thoracic kyphosis. There is no demonstrated abnormality of the visualized upper abdomen. CT/Chest WITH Contrast IMPRESSION: Dilatation of the root of the ascending thoracic aorta with a transverse dimension of 50.3 mm. Electronically Signed: Tan Willis, at 9:30 EDT , Service support ,
[2020-05-10 08:30] LABS: CREATININE FINGERSTICK 0.8 mg/dL (0.55-1.02); EGFR FINGERSTICK > 60.0000 mL/min (>60)
== END ==
PROVIDERS: PCP Family Medicine; Referring Provider Internal Medicine Cardiovascular Disease; Visit Provider Internal Medicine Cardiovascular Disease
DX: I71.2 Thoracic aortic aneurysm, without rupture (principal); Z85.3 Personal history of malignant neoplasm of breast
CPT/HCPCS: 71260; Q9967

== ENCOUNTER → 2020-05-19 08:51 | Outpatient (CLI) | payer MEDICARE, SELFPAY ==
[2020-05-02 09:55] VITALS: BMI 26.9
[2020-05-19 09:36] LABS: Anion Gap 4 (5-15); BUN 24 mg/dL (7-18); BUN/Creat Ratio 27.1 RATIO (10-20); Calcium,Total 9.1 mg/dL (8.5-10.1); Chloride 103 mmol/L (98-107); Creatinine, Serum 0.89 mg/dL (0.55-1.02); EST Glomerular Filtration Rate 67 mL/min (>60); Est Glom Filt Rate - Afr Amer 81 mL/min (>60); Glucose 113 mg/dL (74-106); Potassium 3.5 mmol/L (3.5-5.1); Sodium Level 139 mmol/L (136-145)
== END ==
PROVIDERS: PCP Family Medicine; Visit Provider Internal Medicine Cardiovascular Disease
DX: I10 Essential (primary) hypertension (principal)
CPT/HCPCS: 36415; 80048

== ENCOUNTER → 2020-06-03 09:18 | Outpatient (CLI) | payer MEDICARE, SELFPAY ==
[2020-05-02 09:55] VITALS: BMI 26.9
[2020-06-03 11:06] LABS: Anion Gap 5 (5-15); BUN 24 mg/dL (7-18); BUN/Creat Ratio 28.2 RATIO (10-20); Calcium,Total 9.1 mg/dL (8.5-10.1); Chloride 104 mmol/L (98-107); Creatinine, Serum 0.85 mg/dL (0.55-1.02); EST Glomerular Filtration Rate 70 mL/min (>60); Est Glom Filt Rate - Afr Amer 85 mL/min (>60); Glucose 109 mg/dL (74-106); Potassium 3.7 mmol/L (3.5-5.1); Sodium Level 138 mmol/L (136-145)
== END ==
PROVIDERS: PCP Family Medicine; Referring Provider Internal Medicine Cardiovascular Disease; Visit Provider Internal Medicine Cardiovascular Disease
DX: I10 Essential (primary) hypertension (principal)
CPT/HCPCS: 36415; 80048

== ENCOUNTER → 2021-08-15 13:53 | Outpatient (CLI) | payer MEDICARE, SELFPAY ==
--- NOTE | 2021-08-15 13:55 | CT_ITS ---
STUDY: CTA CHEST REASON FOR EXAM: Female, 70 years old. TAA RADIATION DOSAGE (If Supplied By Facility): CTDIvol = ( 15.14 ) mGy, DLP = ( 601.14 ) mGycm TECHNIQUE: The examination was performed with the intravenous administration of IV 100mL Isovue-370. Post-processing of the angiographic images was performed, with multiplanar reformation and 3D reconstruction. Individualized dose optimization techniques were used for this CT. COMPARISON: Comparison is made with prior study dated 05/10/2020. FINDINGS: Stable small benign-appearing bilateral axillary lymph nodes. Normal enhancement of the main pulmonary artery and right and left pulmonary arteries. Normal enhancement of the bilateral peripheral pulmonary arteries. There is no demonstrated pulmonary embolism. There is aneurysmal dilatation of the ascending aorta. The transverse diameter of the ascending aorta measures 50 mm''s. There is no demonstrated aortic dissection. There are calcifications of the coronary arteries. Normal mediastinum. Normal hilar regions. Normal visualized trachea and bronchi. The lungs are well expanded. Mild degree of increased markings in the right middle lobe as well as in the lower lobe suggestive of scarring. Normal pleura. Normal chest wall structures. There are degenerative changes of thoracic spine. Normal visualized upper abdomen. CT/CTA Chest W/WO Contrast IMPRESSION: Stable dilatation at the root of the ascending thoracic aorta with a transverse dimension of 50mm. There is been no change. Electronically Signed: Tan Willis MD at 9:06 EST , Service support ,
[2021-08-15 14:16] LABS: CREATININE FINGERSTICK 0.6 mg/dL (0.55-1.02); EGFR FINGERSTICK > 60.0000 mL/min (>60)
== END ==
PROVIDERS: PCP Family Medicine; Referring Provider Physician Assistant Medical; Visit Provider Physician Assistant Medical
DX: I71.2 Thoracic aortic aneurysm, without rupture (principal)
CPT/HCPCS: 71275; Q9967

== ENCOUNTER 2022-07-24 09:12 | Outpatient (CLI) | payer MEDICARE, SELFPAY ==
[2022-07-24 10:24] LABS: Anion Gap 5 (5-15); BUN 29 mg/dL (7-18); Calcium,Total 9.4 mg/dL (8.5-10.1); Chloride 105 mmol/L (98-107); Creatinine, Serum 0.88 mg/dL (0.55-1.02); EST Glomerular Filtration Rate 67 mL/min (>60); Est Glom Filt Rate - Afr Amer 81 mL/min (>60); Glucose 104 mg/dL (74-106); Potassium 4.1 mmol/L (3.5-5.1); Sodium Level 139 mmol/L (136-145)
== END 2022-07-24 23:59 | disposition home or self-care (01) ==
LOC: LAB 09:15
PROVIDERS: PCP Internal Medicine; Referring Provider Physician Assistant Medical; Visit Provider Physician Assistant Medical
DX: I10 Essential (primary) hypertension (principal)
CPT/HCPCS: 36415; 80048

== ENCOUNTER 2022-08-14 07:21 | Outpatient (CLI) | payer MEDICARE, SELFPAY ==
--- NOTE | 2022-08-14 07:23 | CT_ITS ---
EXAM: CT ANGIOGRAPHY CHEST WITH INTRAVENOUS CONTRAST CLINICAL INDICATION: taa f/u -- schedule mid august TECHNIQUE: Helically acquired angiography images were obtained of the chest with intravenous contrast. This CT exam was performed using one or more of the following dose reduction techniques: automated exposure control, adjustment of the mA and/or kV according to patient size, and/or use of iterative reconstruction technique. This report was created using [employer] report generation technology. MIP reconstructed images were created and reviewed. CONTRAST: IV 100mL Isovue-370 COMPARISON: CTA Chest dated 08/15/2021 FINDINGS: PULMONARY ARTERIES: Normal. Normal in caliber. No evidence of pulmonary embolism. AORTA: Stable 5 cm aneurysmal dilatation of the ascending thoracic aorta. Thoracic aorta tapers to 2.7 cm in diameter of the aortic arch and 2.3 cm diameter of the descending aorta. No evidence of dissection. GREAT VESSELS OF AORTIC ARCH: Normal. Normal in caliber. No evidence of dissection. LUNGS AND PLEURAL SPACES: Normal. No mass. No consolidation or edema. No pleural effusion or thickening. No pneumothorax. HEART: Stable mild cardiomegaly. No coronary artery calcification. No pericardial effusion. No signs of right heart strain, ratio of right ventricle to left ventricle measures less than 1. MEDIASTINUM: Normal. No mediastinal or hilar adenopathy. Esophagus is unremarkable. No hiatal hernia. THYROID: Normal. No thyroid lesions. BONES/JOINTS: Normal. No suspicious lytic or blastic abnormality. CT/CTA Chest W/WO Contrast IMPRESSION: 1. Stable 5 cm aneurysm of the ascending thoracic aorta. 2. Stable mild cardiomegaly. Electronically Signed: Fly Gandhi MD at 7:56 EST ,
== END 2022-08-14 23:59 | disposition home or self-care (01) ==
LOC: CT 07:22
PROVIDERS: PCP Internal Medicine; Referring Provider Physician Assistant Medical; Visit Provider Physician Assistant Medical
DX: I71.20 Thoracic aortic aneurysm, without rupture, unspecified (principal); I51.7 Cardiomegaly
CPT/HCPCS: 71275; Q9967

== ENCOUNTER → 2022-08-16 | Outpatient (CLI) | payer MEDICARE, SELFPAY ==
--- NOTE | 2022-08-16 09:00 | BD_ITS ---
STUDY: DUAL ENERGY X-RAY ABSORPTIOMETRY / DXA REASON FOR EXAM: Female, 71 years old. 627.8Menopausal postmenopausalBONE DENSITY REASON FOR EXAM TECHNIQUE: Bone Mineral Density (BMD) measurements of lumbar spine and bilateral hips were obtained. COMPARISON: Comparison is made with prior study dated 03/01/2011. FINDINGS: Lumbar Spine (L1-L4): g/cm2 (1.109) / T-score (0.6) / Z-score (2.8) Findings are suggestive of normal bone density with a low fracture risk. Left Femur Total: g/cm2 (0.792) / T-score (-1.2) / Z-score (0.4) Left Femoral Neck: g/cm2 (0.698) / T-score (-1.4) / Z-score (0.6) Right Femur Total: g/cm2 (0.829) / T-score (-0.9) / Z-score (0.7) Right Femoral Neck: g/cm2 (0.728) / T-score (-1.1) / Z-score (0.9) The T-Scores on the most recent prior examination were: Lumbar Spine (L1-L4): There has been worsening of bone density since the previous examination. Left Femur Total: which represents a worsening of 8.4%. Right Femur Total: which represents a worsening of 4.6%. BD/Dexa Bone Density Study IMPRESSION: The patient is considered osteopenic as outlined below according to World [employer] Organization (WHO) criteria with a low fracture risk. There has been worsening of bone density since the previous examination. Reference Information: The T-score is the number of standard deviations above or below the standard which is normal for young adults at their peak bone mineral density. The World Health Organization (WHO) interprets the T-scores as follows: Above -1 Normal bone density Between -1 and -2.5 Osteopenia Equal to / or below -2.5 Osteoporosis As a practical clinical guideline, osteopenia may be graded as follows: Mild -1 through -1.5 Moderate -1.6 through -2.0 Severe -2.1 through -2.4 The Z-score is the number of standard deviations above or below age-matched controls. A Z-score of less than -1.5 would be considered abnormal. References: 1. NIH Osteoporosis and Related Bone Diseases www osteo.org 2. International Society for Clinical Densitometry www iscd.org 3. National Osteoporosis Foundation www nof.org Electronically Signed: Tan Willis MD at 10:23 EST ,
== END | disposition home or self-care (01) ==
PROVIDERS: PCP Internal Medicine; Referring Provider Student in an Organized Health Care Education/Training Program; Visit Provider Student in an Organized Health Care Education/Training Program
DX: N95.1 Menopausal and female climacteric states (principal); Z78.0 Asymptomatic menopausal state; M85.80 Other specified disorders of bone density and structure, unspecified site
CPT/HCPCS: 77080

== ENCOUNTER → 2023-01-09 | Outpatient (CLI) | payer MEDICARE, SELFPAY ==
[2023-01-09 11:00] LABS: Anion Gap 9 (5-15); BUN 26 mg/dL (7-18); BUN/Creat Ratio 26.7 RATIO (10-20); Calcium,Total 9.6 mg/dL (8.5-10.1); Chloride 105 mmol/L (98-107); Creatinine, Serum 0.98 mg/dL (0.55-1.02); EST Glomerular Filtration Rate 60 mL/min (>60); Est Glom Filt Rate - Afr Amer 72 mL/min (>60); Glucose 122 mg/dL (74-106); Potassium 4.4 mmol/L (3.5-5.1); Sodium Level 136 mmol/L (136-145)
== END | disposition home or self-care (01) ==
LOC: LAB 10:10
PROVIDERS: PCP Internal Medicine; Referring Provider Physician Assistant Medical; Visit Provider Physician Assistant Medical
DX: I10 Essential (primary) hypertension (principal)
CPT/HCPCS: 36415; 80048

== ENCOUNTER → 2023-08-13 | Outpatient (CLI) | payer MEDICARE, SELFPAY ==
--- NOTE | 2023-08-13 07:59 | CT_ITS ---
STUDY: CTA CHEST REASON FOR EXAM: Female, 72 years old. TAA. Patient has a history of breast carcinoma with radiation and chemotherapy. Prior breast resection and reconstruction. RADIATION DOSAGE (If Supplied By Facility): CTDIvol = ( 12.71 ) mGy, DLP = ( 411.98 ) mGycm TECHNIQUE: The examination was performed with the intravenous administration of IV 100mL Isovue-370. Post-processing of the angiographic images was performed, with multiplanar reformation and 3D reconstruction. Individualized dose optimization techniques were used for this CT. COMPARISON: Comparison is made with prior study dated August 14, 2022. FINDINGS: Normal enhancement of the main pulmonary artery and right and left pulmonary arteries. Normal enhancement of the bilateral peripheral pulmonary arteries. There is no demonstrated pulmonary embolism. There is aneurysmal dilatation of the ascending aorta. The transverse diameter of the ascending aorta measures 48.1 mm''s. There is no demonstrated aortic dissection. Mild atherosclerotic plaque formation of the aortic arch. Mild cardiomegaly. No significant coronary artery calcification is seen. Normal mediastinum. Normal hilar regions. Normal visualized trachea and bronchi. The lungs are well expanded. Normal pulmonary parenchyma. Normal pleura. Normal chest wall structures. There are degenerative changes of thoracic spine. Increased kyphosis. Normal visualized upper abdomen. CT/CTA Chest W/WO Contrast IMPRESSION: Stable examination. Electronically Signed: Tan Willis MD at 15:32 EST ,
[2023-08-13 08:24] LABS: CREATININE FINGERSTICK < 1.0 mg/dL (0.55-1.02); EGFR FINGERSTICK > 60.0000 mL/min (>60)
== END | disposition home or self-care (01) ==
LOC: CT 07:58
PROVIDERS: PCP Internal Medicine; Referring Provider Physician Assistant Medical; Visit Provider Physician Assistant Medical
DX: I71.20 Thoracic aortic aneurysm, without rupture, unspecified (principal)
CPT/HCPCS: 71275; Q9967

== ENCOUNTER → 2023-08-30 | Outpatient (CLI) | payer MEDICARE, SELFPAY ==
--- NOTE | 2023-08-30 08:51 | ECHOD_ITS ---
Reason For Study: Murmur Procedure This was a 2D Doppler, Color Flow transthoracic echocardiogram. Myocardial strain analysis was performed in this exam to aid in the assessment of cardiac function. Exam performed in department. Left Ventricle Normal LV size. Left ventricular systolic function is normal. The estimated ejection fraction is 60 %. Stage 1 diastolic dysfunction. No regional wall motion abnormalities noted. Right Ventricle Normal RV size. Normal systolic function. Atria The left atrium is moderately enlarged. Normal right atrium. Mitral Valve Normal mitral valve. Moderate (2+) eccentric mitral valve insufficiency. Tricuspid Valve Normal tricuspid valve. Mild to moderate (1-2+) tricuspid valve insufficiency. Pulmonary artery systolic pressure is 45 mmHg. Aortic Valve Trisinus/trileaflet aortic valve. Mild (1+) aortic valve insufficiency. Pulmonic Valve Normal pulmonic valve. Great Vessels Moderately dilated aortic root. The pulmonary artery is normal size. Normal inferior vena cava. Pericardium/Pleural No pericardial effusion. MMode/2D Measurements & Calculations LVIDd: 5.5 cm IVSd: 1.0 cm Ao root diam: 5.1 cm LVIDs: 3.7 cm LVPWd: 1.1 cm RVDd: 3.4 cm FS: 31.4 % LAV(MOD-bp): 74.0 ml LVAd ap4: 25.4 cm2 SV(MOD-sp4): 47.8 ml LAV(MOD-bp) Indexed: 37.4 ml/m2 LVLd ap4: 6.9 cm LAV(MOD-sp2): 50.8 ml EDV(MOD-sp4): 78.9 ml LAV(MOD-sp4): 78.5 ml EDV(sp4-el): 79.5 ml LVAs ap4: 14.2 cm2 LVLs ap4: 5.5 cm ESV(MOD-sp4): 31.1 ml ESV(sp4-el): 31.1 ml EF(MOD-sp4): 60.5 % EF(sp4-el): 60.9 % SV(sp4-el): 48.4 ml LA A4 area: 25.7 cm2 RA A4 area: 12.1 cm2 TAPSE: 1.8 cm Time Measurements MV dec time: 0.24 sec Doppler Measurements & Calculations MV E max camron: 70.7 cm/sec Lat Peak E' Camron: 11.0 cm/sec Med Peak E' Camron: 4.9 cm/sec MV A max camron: 84.7 cm/sec E/E' lat: 6.4 E/E' med: 14.4 MV E/A: 0.83 MV dec slope: 297.5 cm/sec2 Ao V2 max: 109.3 cm/sec AI max camron: 349.2 cm/sec Ao max P.8 mmHg AI max P.8 mmHg Ao V2 mean: 86.9 cm/sec AI dec slope: 227.5 cm/sec2 Ao mean P.2 mmHg AI P1/2t: 449.5 msec Ao V2 VTI: 27.0 cm AV (velocity ratio): 0.90 LV V1 max: 90.8 cm/sec PA V2 max: 60.0 cm/sec TR max camron: 322.8 cm/sec LV V1 max P.3 mmHg TR max P.7 mmHg LV V1 mean P.0 mmHg LV V1 mean: 66.5 cm/sec LV V1 VTI: 24.3 cm ECHO/Echo Complete Interpretation Summary Normal LV size. Left ventricular systolic function is normal. The estimated ejection fraction is 60 %. Pulmonary artery systolic pressure is 45 mmHg. Stage 1 diastolic dysfunction. Moderately dilated aortic root. Compared to the previous the aortic root is more dilated. Moderate (2+) eccentric mitral valve insufficiency. Ordering Physician: Yessi Boogie Referring Physician: Jae Belcher Performed By: Sandi Landeros, TONY, RVT
== END | disposition home or self-care (01) ==
LOC: CVS 08:50
PROVIDERS: PCP Internal Medicine; Referring Provider Physician Assistant Medical; Visit Provider Physician Assistant Medical
DX: I34.0 Nonrheumatic mitral (valve) insufficiency (principal)
CPT/HCPCS: 93306

== ENCOUNTER → 2024-04-16 | Outpatient (CLI) | payer MEDICARE, SELFPAY ==
[2024-04-16 16:40] LABS: Creatinine, Serum 0.94 mg/dL (0.55-1.02); EST Glomerular Filtration Rate 62 mL/min (>60); Est Glom Filt Rate - Afr Amer 75 mL/min (>60)
== END | disposition home or self-care (01) ==
LOC: LAB 15:10
PROVIDERS: PCP Internal Medicine; Referring Provider Surgery Trauma Surgery; Visit Provider Surgery Trauma Surgery
DX: I71.20 Thoracic aortic aneurysm, without rupture, unspecified (principal)
CPT/HCPCS: 36415; 82565

== ENCOUNTER → 2024-05-05 | Outpatient (CLI) | payer MEDICARE, SELFPAY ==
--- NOTE | 2024-05-05 07:48 | CT_ITS ---
INDICATION: aortic aneurysm EXAMINATION: CTA CHEST, ABDOMEN AND PELVIS WITH CONTRAST - TECHNIQUE: A CTA of the chest, abdomen, and pelvis is obtained with sagittal and coronal reconstructed MIP views. Three-dimensional surface rendered sequence of the thoracic and abdominal aorta was obtained. A radiation dose optimization technique was used for this scan. 75 mL of Isovue-370. Oral contrast: None. COMPARISON: None. FINDINGS: CT CHEST: THORACIC AORTA: There is aneurysmal dilatation at the root of the ascending thoracic aorta. This measures 48.8 mm. This extends to the proximal portion of the aortic arch. ABDOMINAL AORTA: Atherosclerotic calcific plaques of the abdominal aorta. No evidence of abdominal aortic aneurysm. Mild calcific plaques seen in the common iliac arteries bilaterally. LUNGS: Mild increased markings at the lung bases suggestive of mild scarring. MEDIASTINUM: The thyroid gland is normal. No mediastinal or hilar adenopathy. HEART: Heart is normal size. No pericardial effusion. No coronary calcification is seen. CT ABDOMEN AND PELVIS: LIVER: The liver enhances homogeneously. No masses identified. GALLBLADDER: The CBD is normal. Normal gallbladder. SPLEEN: Normal. PANCREAS: No masses or inflammation. ADRENAL GLANDS: Normal. KIDNEYS AND URETERS: The kidneys both enhance appropriately. There are normal size and shape. No hydronephrosis or nephrolithiasis. Bilateral renal cysts. There is a dominant cyst in the anterior aspect of the right kidney measuring 5.1 cm x 5.7 cm. STOMACH: Normal. SMALL BOWEL: No abnormal distention of the small bowel. MESENTERY: No mesenteric inflammation. No ascites. COLON: Sigmoid diverticulosis. The colon otherwise is normal. There is a large fatty ileocecal valve. APPENDIX: The appendix is visualized and normal. IVC: Normal. RETROPERITONEUM: No retroperitoneal lymphadenopathy. PELVIC STRUCTURES: Normal bladder. Patient is status post hysterectomy. SOFT TISSUES ABDOMEN: The anterior abdominal wall is normal. SOFT TISSUE CHEST: The extrathoracic soft tissues are normal. BONES: Degenerative changes of the lumbar spine. CT/CTA Chst, Abd, Pel W and/or WO IMPRESSION: Aneurysmal dilatation of the root of the ascending thoracic aorta with a transverse dimension of 48.8 mm. No evidence of abdominal aortic aneurysm. Electronically Signed: Tan Willis MD at 10:58 EDT ,
== END | disposition home or self-care (01) ==
LOC: CT 07:48
PROVIDERS: PCP Internal Medicine; Referring Provider Surgery Trauma Surgery; Visit Provider Surgery Trauma Surgery
DX: Z98.890 Other specified postprocedural states (principal); Z86.79 Personal history of other diseases of the circulatory system
CPT/HCPCS: 71275; 74174; Q9967

== ENCOUNTER 2024-07-13 15:59 | Outpatient (RCR) | payer SELFPAY | END 2024-08-08 23:59 | LOC: NS 15:59 | PROVIDERS: PCP Internal Medicine | DX: Z71.3 Dietary counseling and surveillance (principal) ==

== ENCOUNTER → 2024-09-03 | Outpatient (CLI) | payer MEDICARE, SELFPAY ==
--- NOTE | 2024-09-03 13:50 | RAD_ITS ---
STUDY: X-RAY CHEST REASON FOR EXAM: Female, 73 years old. BLUE TECHNIQUE: PA and lateral views of the chest. COMPARISON: None. FINDINGS: Status post median sternotomy with a left atrial appendage closure device. The lungs are clear and expanded. Moderate bilateral pleural effusions. There is moderate cardiac enlargement. Normal mediastinum and cristhian. Normal visualized pulmonary arteries. Normal visualized aortic arch and descending thoracic aorta. Normal visualized thoracic spine. Normal visualized ribs, clavicles, and shoulders. There is no demonstrated abnormality of the visualized soft tissue structures of the upper abdomen. RAD/Chest PA and Lateral IMPRESSION: Moderate bilateral pleural effusions. Electronically Signed: Meng Dickerson MD at 15:00 EST ,
[2024-09-03 14:27] LABS: Basophil# 0.03 X10^3/uL; Basophil% 0.3 % (0-1); Eosinophil# 0.28 X10^3/uL; Hematocrit 35.5 % (37-47); Lymphocyte % 11.9 % (19-41); Mean Corpuscular Hgb 28.9 pg (27.0-32.0); Mean Corpuscular Volume 93.2 fL (81-99); Mean Platelet Vol. 8.3 fl (6.2-12.0); Monocyte# 0.76 X10^3/uL; Monocyte% 8.3 % (0-10); NRBC Flagged by Analyzer 0 % (0-5); Neutrophil % 76.1 % (47-70); Platelet Count 691 K/mm3 (150-450); RBC Distribution Width SD 54.6 fl (35.1-43.9); Red Blood Count 3.81 M/mm3 (4.2-5.4); White Blood Count 9.2 K/mm3 (4.4-11.0)
[2024-09-03 14:40] LABS: Anion Gap 7 (5-15); BUN 30 mg/dL (7-18); BUN/Creat Ratio 35.7 RATIO (10-20); Calcium,Total 8.5 mg/dL (8.5-10.1); Chloride 104 mmol/L (98-107); Creatinine, Serum 0.84 mg/dL (0.55-1.02); EST Glomerular Filtration Rate 70 mL/min (>60); Est Glom Filt Rate - Afr Amer 85 mL/min (>60); Glucose 119 mg/dL (74-106); Potassium 3.5 mmol/L (3.5-5.1); Sodium Level 138 mmol/L (136-145)
== END | disposition home or self-care (01) ==
LOC: RAD 13:42
PROVIDERS: PCP Internal Medicine; Referring Provider Physician Assistant Medical; Visit Provider Physician Assistant Medical
DX: I71.21 Aneurysm of the ascending aorta, without rupture (principal); I34.0 Nonrheumatic mitral (valve) insufficiency; R06.09 Other forms of dyspnea
CPT/HCPCS: 36415; 71046; 80048; 85025

== ENCOUNTER → 2024-09-07 | Outpatient (CLI) | payer MEDICARE, SELFPAY ==
[2024-09-07 07:57] VITALS: BP 128/63; PULSE 71; RESP 20; TEMP 36; O2SAT 95
[2024-09-07] MEDS: Lidocaine 2% (20 ml mdv) 20 ML Vial INFILT (08:04)
[2024-09-07 08:10] VITALS: BP 103/60; PULSE 67; RESP 20; O2SAT 94
[2024-09-07 08:14] VITALS: BP 98/57; PULSE 72; RESP 20; O2SAT 94
--- NOTE | 2024-09-07 08:20 | RAD_ITS ---
STUDY: X-RAY CHEST REASON FOR EXAM: Female, 73 years old. Postthoracentesis TECHNIQUE: 2 AP portable views COMPARISON: 09/03/2024 FINDINGS: No postprocedural pneumothorax noted. Lungs are expanded with persistent and essentially unchanged bilateral pleural effusions with likely associated atelectasis. Sternal cerclage wires and vascular clips are present from a prior sternotomy and coronary artery bypass graft procedure (CABG). Normal mediastinum and cristhian. Normal visualized pulmonary arteries. Normal visualized aortic arch and descending thoracic aorta. Normal visualized thoracic spine. Normal visualized ribs, clavicles, and shoulders. There is no demonstrated abnormality of the visualized soft tissue structures of the upper abdomen. RAD/Chest Insp/Exp 2 View IMPRESSION: No postprocedural pneumothorax Despite apparent thoracentesis, the bilateral pleural effusions are essentially unchanged from 09/03/2024. Electronically Signed: Tomas Arenas MD at 8:56 EST ,
--- NOTE | 2024-09-07 08:20 | OP.PCM_ITS ---
Problems Associated Problem List Diagnoses (1) Bilateral pleural effusion: Multi Select Codes Radiology Radiology [place] Procedures: 23834 Thoracentesis Operative Report (Standard) Operative Information Date of Procedure: 09/07/24 Pre-Operative Diagnosis: Pleural effusion Post-Operative Diagnosis: Pleural effusion Surgery/Procedure Performed: Ultrasound-guided thoracentesis bench scientist: No Type of Anesthesia: Local Procedure Start Time: 09:05 Procedure Stop Time: 09:18 Select all DRAINS/GRAFTS/IMPLANTS that apply: None Estimated Blood Loss: 0 Specimen collected: No Description of surgery: PROCEDURE: Ultrasound Guided Thoracentesis ORDERING PROVIDER: WILY Vazquez INDICATION: Female, 73 years old. Pleural effusion. PROVIDER: Christina Chapman CNP PROCEDURE: The risks, benefits, and alternatives to the procedure were explained to the patient. The specific risks of bleeding, infection, and pneumothorax requiring chest tube insertion were discussed and accepted. Written informed consent was obtained. The patient was placed in the sitting, upright position. Ultrasonographic evaluation of the bilateral lower pleural spaces was carried out. An adequate pocket was identified in the right lower lobe. The overlying skin was prepped with chlorhexidine and draped in sterile fashion. 2 % lidocaine was administered subcutaneously for local anesthesia. Under ultrasound guidance, a 5-[place] thoracentesis needle/catheter system was advanced into the posterior lower pleural fluid collection. 1050 ml of red colored fluid was drained. The catheter was removed, and a sterile dressing was applied. The patient tolerated the procedure well. A chest x-ray was ordered. IMPRESSION: Successful ultrasound guided thoracentesis of right pleural effusion. Surgical Findings: None Complications Complications: No
[2024-09-07 08:29] VITALS: BP 109/65; PULSE 68; RESP 18; O2SAT 94
== END | disposition home or self-care (01) ==
LOC: US 07:47
PROVIDERS: PCP Internal Medicine; Referring Provider Physician Assistant Medical; Visit Provider Physician Assistant Medical
DX: J90 Pleural effusion, not elsewhere classified (principal)
CPT/HCPCS: 32555; 71046

== ENCOUNTER → 2024-09-08 | Outpatient (CLI) | payer MEDICARE, SELFPAY ==
--- NOTE | 2024-09-08 11:42 | FLU_PTH ---
PATIENT: BOB JACOB LOC: U#:[id number] AGE/SX: 73/F ROOM: RE09/08/[address]: WILY Hernandez : 1950 BED: DIS: 09/08/2024 SPEC #: [id number] RECD: 09/08/24 12:05 STATUS: SOFIE RENO #: [id number] BIJAN: 09/08/24 11:[address]: Yessi Boogie DEPT: CYTOLOGY RECD BY: Ralph Boyle ENTERED: 09/08/24 12:06 SP TYPE: Fluid OTHR DR: Dr. Jae Belcher MD Tissues: THORACIC FLUID Procedures: Special Stain Group II Surgery Specimen Level IV Cytospin Fluid HEADER OPERATION: Ultrasound guided thoracentesis fluid PRE-OP DIAGNOSIS: Bilateral pleural effusion TISSUE SUBMITTED: Thoracentesis fluid for cytology DIAGNOSIS CYTOLOGY Thoracentesis fluid for cytology (cytospins and cellblock): Negative for malignant cells. Bloody specimen. See comment. mr 09/10/2024 COMMENT Correlation with clinical, radiologic findings and appropriate follow up are necessary. CYTOLOGY STUDY Slides are reviewed. CYTOLOGY GROSS Received is 100 ml of dark red fluid labeled with the patient's name and and designated per the requisition as Thoracentesis fluid. Submitted for cytology preparation including cell block. Mr 09/08/2024 TC:5 CPT: 36329,68211
[2024-09-08] MEDS: Lidocaine 2% (20 ml mdv) 20 ML Vial INFILT (11:46)
--- NOTE | 2024-09-08 11:57 | OP.PCM_ITS ---
Problems Associated Problem List Diagnoses (1) Bilateral pleural effusion: Multi Select Codes Radiology Radiology [place] Procedures: 88505 Thoracentesis Operative Report (Standard) Operative Information Date of Procedure: 09/08/24 Pre-Operative Diagnosis: Pleural effusion Post-Operative Diagnosis: Pleural effusion Surgery/Procedure Performed: Ultrasound guided thoracentesis facility coordinator: No Type of Anesthesia: Local Procedure Start Time: 11:41 Procedure Stop Time: 11:53 Select all DRAINS/GRAFTS/IMPLANTS that apply: None Estimated Blood Loss: 0 Specimen collected: Yes Description of specimen(s) removed: 100 cc sent to lab Description of surgery: PROCEDURE: Ultrasound Guided Thoracentesis ORDERING PROVIDER: WILY Vazquez INDICATION: Female, 73 years old. Pleural effusion. PROVIDER: Christina Chapman CNP PROCEDURE: The risks, benefits, and alternatives to the procedure were explained to the patient. The specific risks of bleeding, infection, and pneumothorax requiring chest tube insertion were discussed and accepted. Written informed consent was obtained. The patient was placed in the sitting, upright position. Ultrasonographic evaluation of the bilateral lower pleural spaces was carried out. An adequate pocket was identified in the left lower lobe. The overlying skin was prepped with chlorhexidine and draped in sterile fashion. 2 % lidocaine was administered subcutaneously for local anesthesia. Under ultrasound guidance, a 5-[place] thoracentesis needle/catheter system was advanced into the left posterior lower pleural fluid collection. 1010 ml of red colored fluid was drained. The catheter was removed, and a sterile dressing was applied. The patient tolerated the procedure well. A chest x-ray was ordered. IMPRESSION: Successful ultrasound guided thoracentesis of left pleural effusion. Surgical Findings: none Complications Complications: No
--- NOTE | 2024-09-08 12:00 | RAD_ITS ---
STUDY: X-RAY CHEST REASON FOR EXAM: Female, 73 years old. Postthoracentesis TECHNIQUE: 2 AP portable views COMPARISON: Yesterday FINDINGS: No postprocedural pneumothorax No interval change in the size of the previously noted pleural effusions with likely associated atelectasis. Normal size heart. Normal mediastinum and cristhian. Normal visualized pulmonary arteries. Normal visualized aortic arch and descending thoracic aorta. Normal visualized thoracic spine. Normal visualized ribs, clavicles, and shoulders. There is no demonstrated abnormality of the visualized soft tissue structures of the upper abdomen. RAD/Chest Insp/Exp 2 View IMPRESSION: No postprocedural pneumothorax No interval change in the appearance of the lungs since the previous study, persistent bilateral pleural effusions with bibasilar atelectasis Electronically Signed: Tomas Arenas MD at 12:14 EST ,
[2024-09-08 12:27] VITALS: BP 122/53; PULSE 74; RESP 18; O2SAT 94
[2024-09-08 12:28] VITALS: BP 116/55; PULSE 70; RESP 18; O2SAT 92
== END | disposition home or self-care (01) ==
LOC: US 11:09
PROVIDERS: PCP Internal Medicine; Referring Provider Physician Assistant Medical; Visit Provider Physician Assistant Medical
DX: J90 Pleural effusion, not elsewhere classified (principal); I48.91 Unspecified atrial fibrillation; N28.9 Disorder of kidney and ureter, unspecified; I34.0 Nonrheumatic mitral (valve) insufficiency; I97.89 Other postprocedural complications and disorders of the circulatory system, not elsewhere classified
CPT/HCPCS: 32555; 71046; 88108; 88305; 88313

== ENCOUNTER → 2024-09-11 | Outpatient (CLI) | payer MEDICARE, SELFPAY ==
[2024-09-11 11:13] LABS: Anion Gap 6 (5-15); BUN 32 mg/dL (7-18); BUN/Creat Ratio 32.9 RATIO (10-20); Calcium,Total 8.6 mg/dL (8.5-10.1); Chloride 105 mmol/L (98-107); Creatinine, Serum 0.97 mg/dL (0.55-1.02); EST Glomerular Filtration Rate 59 mL/min (>60); Est Glom Filt Rate - Afr Amer 72 mL/min (>60); Glucose 106 mg/dL (74-106); Potassium 3.1 mmol/L (3.5-5.1); Sodium Level 141 mmol/L (136-145)
== END | disposition home or self-care (01) ==
PROVIDERS: PCP Internal Medicine; Referring Provider Physician Assistant Medical; Visit Provider Physician Assistant Medical
DX: J90 Pleural effusion, not elsewhere classified (principal)
CPT/HCPCS: 36415; 80048

== ENCOUNTER → 2024-09-15 | Outpatient (CLI) | payer MEDICARE, SELFPAY ==
--- NOTE | 2024-09-15 10:48 | RAD_ITS ---
HISTORY: Pleural effusion. TECHNIQUE: XR Chest 2 Views. COMPARISON: 09/08/2024. FINDINGS: CARDIOMEDIASTINAL BORDERS: Cardiac silhouette within normal limits in size with closure device again seen. Mediastinal contour also unchanged with midline sternotomy and calcification of the aortic knob. LUNGS: Mild linear bibasilar opacities again seen. PLEURA: Persistent bilateral pleural effusions. OSSEOUS STRUCTURES: Degenerative change. RAD/Chest PA and Lateral IMPRESSION: Persistent bilateral pleural effusions with bibasilar atelectasis. Electronically Signed: Joanne Stewart MD at 11:52 EST ,
== END | disposition home or self-care (01) ==
LOC: RAD 10:47
PROVIDERS: PCP Internal Medicine; Referring Provider Physician Assistant Medical; Visit Provider Physician Assistant Medical
DX: J90 Pleural effusion, not elsewhere classified (principal)
CPT/HCPCS: 71046

== ENCOUNTER → 2024-09-16 | Outpatient (CLI) | payer MEDICARE, SELFPAY ==
[2024-09-16 12:43] LABS: Anion Gap 6 (5-15); BUN 32 mg/dL (7-18); BUN/Creat Ratio 41.2 RATIO (10-20); Calcium,Total 9.1 mg/dL (8.5-10.1); Chloride 108 mmol/L (98-107); Creatinine, Serum 0.78 mg/dL (0.55-1.02); EST Glomerular Filtration Rate 77 mL/min (>60); Est Glom Filt Rate - Afr Amer 93 mL/min (>60); Glucose 117 mg/dL (74-106); Potassium 3.7 mmol/L (3.5-5.1); Sodium Level 141 mmol/L (136-145)
== END | disposition home or self-care (01) ==
LOC: LAB 11:15
PROVIDERS: PCP Internal Medicine; Referring Provider Physician Assistant Medical; Visit Provider Physician Assistant Medical
DX: J90 Pleural effusion, not elsewhere classified (principal)
CPT/HCPCS: 36415; 80048

== ENCOUNTER → 2024-09-22 | Outpatient (CLI) | payer MEDICARE, SELFPAY ==
[2024-09-22] VITALS (7 sets, daily range): BP systolic 94–128; BP diastolic 55–77; PULSE 77–87; RESP 24–26; TEMP 36.2; O2SAT 94–95
[2024-09-22] MEDS: Lidocaine 2% (20 ml mdv) 20 ML Vial INFILT (08:23)
--- NOTE | 2024-09-22 08:33 | RAD_ITS ---
STUDY: X-RAY CHEST REASON FOR EXAM: Female, 73 years old. Post thoracentesis TECHNIQUE: AP inspiration and expiration views. COMPARISON: Comparison is made with prior study dated September 15, 2024. FINDINGS: The patient is status post right thoracentesis. No evidence of pneumothorax. Residual right pleural parenchymal changes. Small to moderate size left pleural effusion with left basilar atelectasis. RAD/Chest Insp/Exp 2 View IMPRESSION: Status post right thoracentesis. No evidence of pneumothorax. Residual pleural-parenchymal changes. Electronically Signed: Tan Willis MD at 8:55 EST ,
--- NOTE | 2024-09-22 08:40 | OP.PCM_ITS ---
Problems Associated Problem List Diagnoses (1) Bilateral pleural effusion: Multi Select Codes Radiology Radiology [place] Procedures: 83031 Thoracentesis Operative Report (Standard) Operative Information Date of Procedure: 09/22/24 Pre-Operative Diagnosis: Pleural effusion Post-Operative Diagnosis: Pleural effusion Surgery/Procedure Performed: Ultrasound-guided thoracentesis spring coiler: No Type of Anesthesia: Local Procedure Start Time: 08:18 Procedure Stop Time: 08:30 Select all DRAINS/GRAFTS/IMPLANTS that apply: None Estimated Blood Loss: 0 Specimen collected: No Description of surgery: PROCEDURE: Ultrasound Guided Thoracentesis ORDERING PROVIDER: WILY Vazquez INDICATION: Female, 73 years old. Pleural effusion. PROVIDER: Christina Chapman CNP PROCEDURE: The risks, benefits, and alternatives to the procedure were explained to the patient. The specific risks of bleeding, infection, and pneumothorax requiring chest tube insertion were discussed and accepted. Written informed consent was obtained. The patient was placed in the sitting, upright position. Ultrasonographic evaluation of the bilateral lower pleural spaces was carried out. An adequate pocket was identified in the right. The overlying skin was prepped with chlorhexidine and draped in sterile fashion. 2 % lidocaine was administered subcutaneously for local anesthesia. Under ultrasound guidance, a 5-[place] thoracentesis needle/catheter system was advanced into the right posterior lower pleural fluid collection. 1270 ml of red colored fluid was drained. The catheter was removed, and a sterile dressing was applied. The patient tolerated the procedure well. A chest x-ray was ordered. IMPRESSION: Successful ultrasound guided thoracentesis of right pleural effusion. Surgical Findings: None Complications Complications: No
== END | disposition home or self-care (01) ==
LOC: US 08:00
PROVIDERS: PCP Internal Medicine; Referring Provider Physician Assistant Medical; Visit Provider Physician Assistant Medical
DX: J90 Pleural effusion, not elsewhere classified (principal)
CPT/HCPCS: 32555; 71046

== ENCOUNTER → 2024-09-23 | Outpatient (CLI) | payer MEDICARE, SELFPAY ==
--- NOTE | 2024-09-23 | FLU_PTH ---
PATIENT: BOB JACOB LOC: U#:[id number] AGE/SX: 73/F ROOM: RE09/23/[address]: WILY Hernandez : 1950 BED: DIS: 09/23/2024 SPEC #: [id number] RECD: 09/23/24 12:47 STATUS: SOFIE BOJORQUEZ #: [id number] BIJAN: 09/23/24 00:[address]: Yessi Boogie DEPT: CYTOLOGY RECD BY: Ralph Boyle ENTERED: 09/24/24 07:58 SP TYPE: Fluid OTHR DR: Dr. Jae Belcher MD Tissues: THORACIC FLUID Procedures: Special Stain Group II Surgery Specimen Level IV Cytospin Fluid HEADER OPERATION: Ultrasound guided thoracentesis PRE-OP DIAGNOSIS: Pleural effusion TISSUE SUBMITTED: Thoracentesis fluid for cytology DIAGNOSIS CYTOLOGY Thoracentesis fluid for cytology (cytospins and cellblock): Negative for malignant cells. See comment. mr 09/25/2024 COMMENT Clinical correlation and appropriate follow up are necessary. CYTOLOGY STUDY Slides are reviewed. CYTOLOGY GROSS Received is 100 ml of dark-red cloudy fluid labeled with the patient's name and and designated per the requisition as Thoracentesis fluid. Submitted for cytology preparation including cell block. Mr 09/24/2024 TC:5 CPT: 53116,94623
[2024-09-23] MEDS: Lidocaine 2% (20 ml mdv) 20 ML Vial INFILT (12:23)
--- NOTE | 2024-09-23 12:33 | RAD_ITS ---
STUDY: X-RAY CHEST REASON FOR EXAM: Female, 73 years old. Post thora TECHNIQUE: AP inspiration and expiration views. COMPARISON: Comparison is made with prior study dated March 22, 2025. FINDINGS: The patient is status post left thoracentesis. No evidence of pneumothorax. Residual bibasilar pleural-parenchymal changes. RAD/Chest Insp/Exp 2 View IMPRESSION: Status post left thoracentesis. No evidence of pneumothorax. Electronically Signed: Tan Willis MD at 12:53 EST ,
[2024-09-23 12:58] VITALS: BP 103/76; BP 125/64; PULSE 76; RESP 18; O2SAT 94; O2SAT 95
[2024-09-23 12:59] VITALS: BP 116/77; PULSE 75; RESP 18; O2SAT 94
--- NOTE | 2024-09-23 12:59 | OP.PCM_ITS ---
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 Pleural effusion. PROVIDER: Christina Chapman CNP PROCEDURE: The risks, benefits, and alternatives to the procedure were explained to the patient. The specific risks of bleeding, infection, and pneumothorax requiring chest tube insertion were discussed and accepted. Written informed consent was obtained. The patient was placed in the sitting, upright position. Ultrasonographic evaluation of the bilateral lower pleural spaces was carried out. An adequate pocket was identified in the left lung. The overlying skin was prepped with chlorhexidine and draped in sterile fashion. 2 % lidocaine was administered subcutaneously for local anesthesia. Under ultrasound guidance, a 5-[place] thoracentesis needle/catheter system was advanced into the left posterior lower pleural fluid collection. 620 ml of red colored fluid was drained. The catheter was removed, and a sterile dressing was applied. The patient tolerated the procedure well. A chest x-ray was ordered. IMPRESSION: Successful ultrasound guided thoracentesis of left pleural effusion. Surgical Findings: None Complications Complications: No
== END | disposition home or self-care (01) ==
LOC: US 11:42
PROVIDERS: PCP Internal Medicine; Referring Provider Physician Assistant Medical; Visit Provider Physician Assistant Medical
DX: J90 Pleural effusion, not elsewhere classified (principal)
CPT/HCPCS: 32555; 71046; 88108; 88305; 88313

== ENCOUNTER → 2024-11-02 | Outpatient (CLI) | payer MEDICARE, SELFPAY ==
--- NOTE | 2024-11-02 13:58 | PCM.CR.HP2 ---
CR - History & Physical General Arrival date:: 11/02/24 Arrival time:: 13:59 Date of Referral:: 10/29/24 Date of CR Evaluation:: 11/02/24 Referring Physician: Dr. Keenan Primary Diagnosis: Heart valve replacement History of Present Cardiac Event Onset Date Heart valve replacement or repair:: Yes (onset 08/10/2024) Medications Ambulatory Orders ?Medication ?Instructions ?Recorded olopatadine 0.1 % eye drops 1 drp ophthalmic (eye) BID PRN 04/30/19 multivitamin 1 tab PO DAILY 03/11/24 pravastatin 20 mg tablet 20 mg PO QDAY 03/11/24 vit C 250 mg-vit E 90 mg-zinc 40 1 tab PO BID 03/11/24 mg-copper 1 lq-usmigh-ugrunc capsule (PreserVision AREDS-2) aspirin 81 mg tablet,delayed 81 mg PO QDAY 09/03/24 release (Adult Low Dose Aspirin) beta carotene 10,000 unit capsule 7,500 mcg PO QDAY 09/03/24 fluticasone propionate 50 1 spray intranasal QDAY 09/03/24 mcg/actuation nasal spray,suspension loratadine 10 mg capsule (Allergy 10 mg PO QDAY PRN 09/03/24 Relief (loratadine)) oxycodone 5 mg capsule 5 mg PO BID PRN 09/03/24 spironolactone 25 mg tablet 25 mg PO DAILY #30 tabs 09/03/24 vitamin B complex-folic acid 1 tab PO DAILY 09/03/24 mg-vit C 60 mg-biotin 300 mcg tablet apixaban 5 mg tablet 5 mg PO BID #180 tabs 09/16/24 metoprolol tartrate 25 mg tablet 25 mg PO BID #180 tabs 09/21/24 Allergies Allergies adhesive tape Allergy (Intermediate, Verified 10/29/24 10:28) Itching Environmental Allergies: Uncoded Allergy (Verified 10/29/24 10:28) Itching amlodipine Adverse Reaction (Severe, Verified 10/29/24 10:28) pedal edema lisinopril Adverse Reaction (Severe, Verified 10/29/24 10:28) Cough doxazosin Adverse Reaction (Unknown, Verified 10/29/24 10:28) dizzy, loopy meloxicam Adverse Reaction (Unknown, Verified 10/29/24 10:28) kidney problems Sleep Disorder Evaluation Hx of Sleep Apnea: No Do you snore loudly (louder than talking or can be heard through closed doors)?: No Do you often feel tired/ fatigued/ sleepy during daytime?: No Has anyone observed you stop breathing during sleep?: No History of Hypertension (for STOP score): Yes STOP Results: Negative Advanced Directives Advanced Directives Power of Ct Mri Technologist: Yes Living Will: Yes Advance Directives Information Provided: Yes Advance Directives on File: No DNR Order?:: No Past Medical History Covid-19 Screening Physicial Symptoms Other Clinical Concerns Exposure Risk Pertinent Comorbidities 65 years or older:: Yes Has a serious heart condition:: Yes Past Medical Illness Medical History Bilateral pleural effusion Postoperative atrial fibrillation Mitral valve insufficiency Thoracic aortic aneurysm without rupture Breast cancer Essential hypertension Hypokalemia Acute diverticulitis Past Surgical History Surgical History S/P left atrial appendage ligation History of lumpectomy of right breast History of breast reconstruction History of hysterectomy Acoustic neuroma Surgical History: hysterectomy and - (s/p left breast lumpectomy, s/p acoustic neuroma excision) Family History Summary Family History Mother Hypertension Colon cancer Father Heart disease Cancer Prostate Hypertension Brother Diabetes Hypertension Sister Cancer Ovarian, thyroid Sister Cancer Thyroid Other Hypokalemia Social History Smoking History Smoking Status: Never smoker Alcohol Use Alcohol Usage: Yes (occas) Substance Abuse Hx Substance Use: No Occupation Occupation (List type of work in comments):: Retired Social Environment Status Marital Status: Current Living Arrangements Living Environment:: Spouse Children How many children do you have?: 3 Safety Do you feel safe in your surroundings?: Yes Assistance Do you need any assistance at home?: no Review of Systems Review of Systems Hints Review of Present Symptoms: Reports Shortness of Breath with Exertion, Dizziness/Lightheadedness, Fatigue, Appetite - Normal, Appetite - Special Diet and Sleep - Normal; Denies Shortness of Breath at Rest, PVD, Operative Discomfort, Angina, Wound Healing, Heart Arrhythmia/Irregularities or Sexual Changes Pain Is Patient Pain Free?: Yes Risk Factor Assessment Chief Complaint Chief Complaint: Heart valve replacement Vital Signs Pulse Ox: 92 Blood Pressure: 111/71 Pulse Pulse Rate: 74 Hypertension Blood Pressure Sitting - Right Arm: 111/71 Obesity Height: 5 ft 9 in Weight:: 157 lb Weight in Pounds: 157.0 lbs Body Mass Index (BMI): 23.1 Nutritional Referral for Obesity: No Physical Inactivity Physical Inactivity: Reg Exercise 30 min/day Risk Stratification Risk Guidelines: Lowest Risk: Risk Factor for Smoking, Moderate Risk: Risk Factor for Dyslipidemia, Risk Factor for Diabetes, Risk Factor for Obesity, Risk Factor for Sedentary Lifestyle and Risk Factor for Depression and Highest Risk: Risk Factor for Hypertension For Smoking Smoking Risk Guidelines For Dyslipidemia Dyslipidemia Risk Guidelines For Diabetes Mellitus Diabetes Risk Guidelines For Obesity/Overweight Obesity/Overweight Risk Guidelines For Hypertension Hypertension Risk Guidelines For Sedentary Lifestyle Sedentary Lifestyle Risk Guidelines For Depression Depression Risk Guidelines Family History Family History Mother Hypertension Colon cancer Father Heart disease Cancer Hypertension Brother Diabetes Hypertension Sister Cancer Sister Cancer Other Hypokalemia Motivation Motivation to Participate On a scale of 1 to 10, how prepared are you to commit to attending program?: 8 What do you see as barriers to successfully being able to complete the program?: nothing What do you see as the benefits of succesfully completing the program? In other words, what do you hope to get out of participating in the program?: energy, strength, stability. Are there issues you are dealing with that will interfere with completing the program?: no Do you have a spouse or signficant other, family or friends who will help support you to complete the program?: yes
[2024-11-02 14:04] VITALS: BP 111/71; PULSE 74; O2SAT 92
--- NOTE | 2024-11-02 14:04 | CR.ITP_ITS ---
Diagnosis General Information Admitting Diagnosis: Heart valve replacement Personal Learning Style:: Audio/Visual Barriers to Learning: No Barriers Stage of change r/t lifestyle modifications:: Contemplation Gave educational material for:: Treating Heart Disease, How The Heart Works, What it means to have Heart Disease, How Coronary Artery Disease is Diagnosed, Heart Procedures, What Heart Medications Do, Risk Factors & Modifications, Living an Active Life, Nutrition, Emotions & Heart Disease, Stress Management & Relaxation and Sleep Disorders & Heart Disease Education/Goals Cardiac Rehabilitation Goals Personal Goals: Initial Assessment: Improve management of stress and emotions, Improve energy level, Participate in home exercise program, Get back to work, or to resume activities faster, Improve knowledge of cardiac disease, Improve muscle strength and endurance, Improve diet and eating habits (eat healthier) and Control risk factors (learn risk factor modification) Scale for measuring improvement of personal goals Diagnosis & Disease Process Outcomes/Goals: Pt IDs own risk factors & lifestyle modifications by Session 10, Verbalizes symptoms of angina & response by session 3., Pt independently manages and Other Additional Outcomes/Goals: Plan/Interventions: Assist Pt to ID & engage in lifestyle modification to reduce CVD risk, Instruct on individual risk factors, Review symptoms of angina & emergency actions, Review secondary diagnosis & identify educational needs. and Other see comment 30 day Reassessments:: Not Met 30 day Reassessments:: Not Met 30 day Reassessments:: Not Met 30 day Reassessments:: Not Met Final Reassessments:: Not Met Safety Referral to Physical Therapy: No Referral to [facility] Case Management: No Fall Risk Assessed:: Yes Assistive Devices:: None Exercise - Initial Assessment Visit Date of Eval: 11/02/24 (initial eval ) Mets: Pre-: >3 METS for 30 minutes by discharge, >5 METS for 30 minutes by discharge, >7 METS for 30 minutes by discharge and Unable to meet goal due to: (see comment below) Physician Prescribed Exercise Modalities: Treadmill, [place] Airdyne AD-7, SciFit Stepper, SciFit Pro-II Ergometer and SciFit Lateral [place] Frequency: 3x/week for 12 weeks [36 sessions] Intensity: 60-80% of age predicted maximum heart rate reserve Duration: 30 - 45 minutes Current METSs:: 3.0 Target Heart Rate:: 88-110 Resting Blood Pressure: 111/71 EKG Type: A-fib with RVR with premanture ventricular or abberantly conducted complexe Outcomes & Goals Goals:: Verbalizes understanding of THR, RPE & goal METS by session 6, Documents in home exercise log/reports 30 min aerobic 5 day/wk by DC, Demonstrates accurate pulse taking by DC and Other additional outcome/goals: see below Intervention & Plan Exercise Program Goals: Instruct on personal THR & RPE, Instruct on MET level & personal MET goal, Show patient to take own pulse /validate performance until accurate and Instruct on home exercise Physical Activity Home Exercise Physical Activity - Home Exercise: Safe Exercise, Warm-up, Self-monitoring, Cool-Down, Home Exercise > 30 min Daily and Sitting Time <3 hours/daily Outcomes & Goals Outcomes/Goals: Demonstrates correct Warm-up/exercise Cool-Down (S3) if = 2.5 METs, Verbalizes symptoms of exercise intolerance by Session 3 (S3) and Demonstrate safe equipment use (S3) & follows exercise prescrition (6) Intervention & Plan Plan/Intervention: Instruct warm-up & cool-down if exercising at > 2 METs, Instruct on symptoms of exercise intolerance & actions to take, Instruct & monitor on saf and Assess intial functional capacity & safety risk Nutrition - Initial Assessment Program Goals Nutrition Program Goals Patient has diagnosis of Hyperlipidemia (ICD E78)?: No Visit Date of Eval: 11/02/24 (initial eval ) Cholesterol/Lipids (Other Core Measures) Determine presence & major risk factors that modify LDL goal: Hypertension or hypertensive medication, Low HDL cholesterol <40 mg/dL*, Family history of premature CHD in Male < 55 years: female <65 yearsFa and Age men > 45 years; women >/= 55 years Outcomes/Goals: Pt IDs own risk factors & lifestyle modifications by Session 10, Verbalizes symptoms of angina & response by session 3., Pt independently manages and Other Additional Outcomes/Goals: Intervention/Plan: Advocate for lipid panel cholesterol medication if applicable, Instruct on personal lipid levels & lipid goals/NCEP guidelines, Ins truct on cholesterol and Other additional plan/int Referral to dietitian:: Yes Diabetes (Other Core Measures) Diabetes Type: Not Applicable Weight Mgt (Other Care) Height: 5 ft 9 in Weight:: 157 lb BMI: 23.1 Diagnosis Overweight/Obesity BMI> 30% ICD-10 E66: No Diagnosis High BMI/Morbid Obesity BMI> 35% ICD-10 Z68: No Outcomes/Goals: Pt sets, maintains & shows weight loss goal & trend during rehab and Other additional outcomes/goals Intervention/Plan: Instruct on ideal BMI & set weight loss goal w/patient, Assist pt to ID & incorporate diet changes for weight loss by S9, Refer to Structured Weight Loss program as appropriate, Encourage goal of using 250- 300dcal per session for weight loss and Other additional plan/interventions Healthy Eating Habits Will attend diet classes:: Yes Outcomes/Goals:: Consume diet rich in vegs,fruits,whole grain/high fibe r,fish,lean meat, Limit sat/trans fats,cholesterol & added salts & sugars and Other additional outcome/goals: Intervention/Plan:: Assess current eating habits and Other Additional plan/interventions Education Gave educational materials for:: Signs & symptoms of hypoglycemia, Signs & symptoms of hyperglycemia, Relate diabetes to coronary artery disease and Healthy eating Core - Initial Assessment Visit Date of Eval: 11/02/24 (initial eval ) Medication Compliance Preventative Medication(s):: Aspirin, Statin/lipid, Beta rocco and Eliquis H/O mental health issues: depression, anxiety, or addiction?: No Doesn?t believe in the benefits of treatment?: No Believes medications are unnecessary or harmful?: No Has a concern about medication side effects?: No Expresses concern over the cost of medications?: No Outcomes/Goals: Verbalizes medications,desired effect & common side effects @ DC, Pt self-reports following medication regimen, Keeps card in wallet w/medications listed by DC and Other additional outcome/goals: Interventions/plans: Instruct on medication effects & side effects, Review medication list w/patient every two weeks, Instruct importance of taking meds as ordered & assist problem solving and Other additional Tobacco Use Tobacco Use: Non-smoker Hypertension Hypertension Diagnosis:: Hypertension ICD-10 I10 Resting Blood Pressure:: 111/71 [place] [employer] Hypertension Guidelines Outcomes/Goals: Able to verbalize/achieve optimal blood pressure <130/80, Incorporates diet changes & exercise for blood pressure control by DC and Other additional outcomes/goals Interventions/plan: Instruct on optimal blood pressure, hypertension & medications, Instruct on effects of sodium, alcohol, stress, exercise &hypertension and Other additional plan/interventions Tobacco Cessation Referral Smoking Cessation Referral:: No Individual Education/Counseling:: No Education Schedule Given:: Yes Psychosocial - Initial Assess VIsit Date of Eval: 11/02/24 (initial eval ) History of previous Mental disease:: No Target Goals Target Goals Psychosocial Test Tool Used:: Buyer[employer] QOL Cardiac and PHQ-9 Questionnaire phq-9 Severity Referral to Behavioral Health PS - Interventions: Yes: Attend Stress Management Classes Outcomes/Goals: See list Psychosocial Outcomes/Goals:: ID's personal stressors & 2 strategies to manage stress by discharge and Other Additional outcome/goals: Intervention/Plan: See List Interventions/Plan:: Assess stressors,coping strategies & signs of derpression on admission, Instruct/assist pt to develop coping & personal stress Mgt strategies, Refer to Behavioral Health if appropriate, Refer to Physician if appropriate, Instruct patient to recognize signs & symptoms of depression, Instruct patient to recog and Other additional plan/intervention Patient Health Questionnaire PHQ-9 Screening Initial Assessment: 1. Little interest or pleasure in doing things: Not at all 2. Feeling down, depressed, or hopeless: Not at all 3. Trouble falling or staying asleep, or sleeping too much: Several days 4. Feeling tired or having little energy: Several days 5. Poor appetite or overeating: Several days 6. Feeling bad about yourself -- or that you are a failure or have let yourself or your family down: Not at all 7. Trouble concentrating on things, such as reading the newspaper or watching television: Not at all 8. Moving or speaking so slowly that other people could have noticed. Or the opposite - being so fidgety or restless that you have been moving around a lot more than usual: Not at all 9. Thoughts that you would be better off , or of hurting yourself in some way: Not at all How difficult have these problems made it for you to do your work, take care of things at home, or get along with other people?: Not difficult at all Total Score: 3 [place]-Q SV Test Statements CAD is a disease of the arteries in the heart: False Examples of risk factors for heart disease: True Angina is chest pain or discomfort: True The benefits of resistance training include: True Eating more meat and dairy products: False Anti-platelet medications such as aspirin are important: True The only effective way to manage stress: False An exercise warm-up slowly increases heart rate: True Prepared, processed foods usually have high sodium: True Depression is common after a heart attack: True The statin medications lower cholesterol: True To control blood pressure, lower the amount of sodium: True If someone gets chest discomfort during walking: False Transfats are partially hydrogenated vegetable oils: True Sleep apnea that is not treated increases the risk: False To control cholesterol, one should become a vegetarian: False Someone knows if he/she is exercising at the right level: I Don't Know Diabetes cannot be prevented with exercise & health eating: False Stress is a large risk for heart attack: True A diet that can help lower blood pressure is rich in: True Total Score Total Correct Responses: 19 Self-Efficacy 6-Item Scale Initial Assessment: We would like to know how confident you are in doing certain activities. Please select your confidence level for: Fatigue Select Number: 4 Physical Discomfort or Pain Select Number: 5 Emotional Distress Select Number: 6 Other Symptoms or Health Problems Select Number: 6 Different Tasks and Activities Select Number: 8 Medication Select Number: 9 Total Score:: 6 Nutrition Survey Nutrition Survey Instructions Scoring Instructions Nutrition Survey Initial: Have you lost >10 lbs over the past 2 months without trying?: Yes Are you following a special diet at home for diabetes, low fat, or low salt?: Yes Are you interested in meeting with a dietitian for help understanding your diet?: Yes Do you eat less than 3 meals a day?: No Do you eat fatty meats (olivarez, sausage, ribs, etc), fried foods, desserts, large amounts of salad dressings, margarine, butter, or cheese most days?: No Do you have food allergies? [Enter types in comment field]: No Do you eat in restaurants more than 3 times a week?: No Do you season food with salt, seasoning salt, or garlic salt?: No Do you used canned, boxed, frozen meals, or soups, seasoning packets?: No Total Score:: 3 Exercise - 30-day Assessment Physician Prescribed Exercise Modalities: Treadmill, [place] Airdyne AD-7, SciFit Stepper, SciFit Pro-II Ergometer and SciFit Lateral [place] Exercise - 60-day Assessment Physician Prescribed Exercise Modalities: Treadmill, [place] Airdyne AD-7, SciFit Stepper, SciFit Pro-II Ergometer and SciFit Lateral [place] Exercise - 90-day Assessment Physician Prescribed Exercise Modalities: Treadmill, [place] Airdyne AD-7, SciFit Stepper, SciFit Pro-II Ergometer and SciFit Lateral Licensing [place] Exercise - Final/Discharge Physician Prescribed Exercise Modalities: Treadmill, Schwinn Airdyne AD-7, SciFit Stepper, SciFit Pro-II Ergo meter and SciFit Lateral [employer]ensing [employer] Frequency: 3x/week for 12 weeks [36 sessions] Intensity: 60-80% of age predicted maximum heart rate reserve Current METSs:: 3.0 Target Heart Rate:: 88-110 Nutrition - 30-Day Assessment Weight Mgt (Other Care) Height: 5 ft 9 in Weight:: 157 lb BMI: 23.1 Nutrition - 60-Day Assessment Weight Mgt (Other Care) Height: 5 ft 9 in Weight:: 157 lb BMI: 23.1 Core - Final Assessment Hypertension Resting Blood Pressure:: 111/71 [place] [employer] Hypertension Guidelines Core - 60-Day Assessment Hypertension Resting Blood Pressure:: 111/71 [place] [employer] Hypertension Guidelines Psychosocial - 30-Day Assess Target Goals Target Goals Referral to Behavioral Health PS - Interventions: Yes: Attend Stress Management Classes Psychosocial - 60-Day Assess Target Goals Target Goals Referral to Behavioral Health PS - Interventions: Yes: Attend Stress Management Classes Psychosocial - 90-Day Assess Target Goals Target Goals Referral to Behavioral Health PS - Interventions: Yes: Attend Stress Management Classes Psychosocial - Final Assessmen Target Goals Target Goals Referral to Behavioral Health PS - Interventions: Yes: Attend Stress Management Classes Nutrition - 90-Day Assessment Weight Mgt (Other Care) Height: 5 ft 9 in Weight:: 157 lb BMI: 23.1 Nutrition - Final Assessment Program Goals Patient has diagnosis of Hyperlipidemia (ICD E78)?: No Weight Mgt (Other Care) Height: 5 ft 9 in Weight:: 157 lb BMI: 23.1
[2024-11-02 14:07] VITALS: BP 111/71
[2024-11-02 14:19] VITALS: BMI 23.1
[2024-11-02 14:40] VITALS: BP 111/71
[2024-11-02 14:51] VITALS: BP 111/71; BMI 23.1
== END | disposition home or self-care (01) ==
LOC: CR 13:51
PROVIDERS: PCP Internal Medicine; Referring Provider Internal Medicine Cardiovascular Disease; Visit Provider Internal Medicine Cardiovascular Disease
DX: I71.21 Aneurysm of the ascending aorta, without rupture (principal); I10 Essential (primary) hypertension; Z95.2 Presence of prosthetic heart valve; R06.02 Shortness of breath; R42 Dizziness and giddiness; R53.83 Other fatigue

== ENCOUNTER → 2024-11-09 | Outpatient (CLI) | payer MEDICARE, SELFPAY ==
[2024-11-02 14:51] VITALS: BMI 23.1
--- NOTE | 2024-11-09 11:57 | RAD_ITS ---
EXAM: XR Chest, 2 Views CLINICAL INDICATION: TECHNIQUE: Frontal and lateral views of the chest. COMPARISON: No relevant prior studies available. FINDINGS: LUNGS AND PLEURAL SPACES: Right middle lobe and lingula atelectasis or pneumonia. Bilateral pleural effusions. No pneumothorax. HEART: Unremarkable. No cardiomegaly. MEDIASTINUM: Unremarkable. Normal mediastinal contour. BONES/JOINTS: Unremarkable. No acute fracture. RAD/Chest PA and Lateral IMPRESSION: 1. Right middle lobe and lingula atelectasis or pneumonia. 2. Bilateral pleural effusions. Reading [facility]
[2024-11-09 15:52] LABS: Anion Gap 14 (5-15); BUN 25 mg/dL (4-19); BUN/Creat Ratio 27.6 RATIO (10-20); Calcium 9.9 mg/dL (7.6-11.0); Carbon Dioxide 20.7 mmol/L (22.0-29.0); Chloride 105 mmol/L (96-108); Creatinine, Serum 0.91 mg/dL (0.70-1.20); EST Glomerular Filtration Rate 66 (>60); Glucose 119 mg/dL (70-99); Potassium 4.1 mmol/L (3.3-5.1); Sodium Level 140 mmol/L (133-145)
== END | disposition home or self-care (01) ==
LOC: RAD 11:57
PROVIDERS: PCP Internal Medicine; Referring Provider Physician Assistant Medical; Visit Provider Physician Assistant Medical
DX: J90 Pleural effusion, not elsewhere classified (principal)
CPT/HCPCS: 36415; 71046; 80048

== ENCOUNTER 2024-11-11 11:15 | Outpatient (RCR) | payer MEDICARE, SELFPAY ==
[2024-11-02 14:51] VITALS: BMI 23.1
== END 2024-12-07 23:59 ==
LOC: CR 11:15
PROVIDERS: PCP Internal Medicine; Referring Provider Internal Medicine Cardiovascular Disease; Visit Provider Internal Medicine Cardiovascular Disease
DX: I71.21 Aneurysm of the ascending aorta, without rupture (principal)
CPT/HCPCS: 93798

== ENCOUNTER → 2024-11-12 | Outpatient (CLI) | payer MEDICARE, SELFPAY ==
[2024-11-02 14:51] VITALS: BMI 23.1
[2024-11-12 12:16] VITALS: BP 136/65; PULSE 67; RESP 18; TEMP 36.3; O2SAT 95
[2024-11-12] MEDS: Lidocaine 2% (20 ml mdv) 20 ML Vial INFILT (12:25)
[2024-11-12 12:28] VITALS: BP 125/74; PULSE 69; RESP 18; O2SAT 97
[2024-11-12 12:30] VITALS: BP 115/71; PULSE 71; RESP 18; O2SAT 95
[2024-11-12 12:35] VITALS: BP 107/61; PULSE 73; RESP 18; TEMP 36.3; O2SAT 94
--- NOTE | 2024-11-12 12:41 | RAD_ITS ---
PROCEDURE: CHEST INSP/EXP 2 VIEW REASON FOR EXAM: Post right thoracentesis. TECHNIQUE: Frontal and lateral views of the chest. COMPARISON: 11/09/2024 chest. FINDINGS: The heart size is normal. The mediastinal contour is unremarkable. The lungs are clear. No pneumothorax following right thoracentesis. Decrease in the right pleural fluid. Left pleural effusion is again noted. Median sternotomy wires. RAD/Chest Insp/Exp 2 View IMPRESSION: No evidence of pneumothorax following right thoracentesis. Decrease in the right pleural effusion. Left pleural effusion. Reading Location: [place] [id number]
--- NOTE | 2024-11-12 12:54 | OP.PCM_ITS ---
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 Bilateral pleural effusion. PROVIDER: JESSE Parra PROCEDURE: The risks, benefits, and alternatives to the procedure were explained to the patient. The specific risks of bleeding, infection, and pneumothorax requiring chest tube insertion were discussed and accepted. Written informed consent was obtained. The patient was placed in the sitting, upright position. Ultrasonographic evaluation of the bilateral lower pleural spaces was carried out. Both the left and the right lower pleural spaces had an adequate amount of fluid to drain. The right pocket appeared to be slightly larger than the left; therefore, I proceeded with drainage of the right side today and will defer the left side for 24 hours. The patient does not appear symptomatic at this time and this is the safest approach. An adequate pocket was identified in the right lower pleural space. The overlying skin was prepped with chlorhexidine and draped in sterile fashion. 2 % lidocaine was administered subcutaneously for local anesthesia. Under ultrasound guidance, a 5-[place] thoracentesis needle/catheter system was advanced into the right posterior lower pleural fluid collection. 1050 ml of clear red-tinged colored fluid was drained. The catheter was removed, and a sterile dressing was applied. The patient tolerated the procedure well. A chest x-ray was ordered. There was no evidence of pneumothorax. IMPRESSION: Successful ultrasound guided thoracentesis of right pleural effusion. Surgical Findings: None Complications Complications: No
== END | disposition home or self-care (01) ==
LOC: US 11:53
PROVIDERS: PCP Internal Medicine; Referring Provider Physician Assistant Medical; Visit Provider Physician Assistant Medical
DX: J90 Pleural effusion, not elsewhere classified (principal)
CPT/HCPCS: 32555; 71046

== ENCOUNTER → 2024-11-16 | Outpatient (CLI) | payer MEDICARE, SELFPAY ==
[2024-11-02 14:51] VITALS: BMI 23.1
--- NOTE | 2024-11-16 07:58 | US_ITS ---
PROCEDURE: THORACENTESIS W US REASON FOR EXAM: Right pleural effusion. TECHNIQUE: The procedure as well as benzoin possible complications including infection bleeding and pneumothorax were explained to the patient. Informed consent was obtained. The overlying skin was prepped and draped in the usual sterile fashion. Following local anesthetic application, puncture of the right pleural space was performed with a 5 [place] catheter. 650 mL of blood- tinged fluid was aspirated. The patient tolerated the procedure well. COMPARISON: None. FINDINGS: Right pleural effusion. US/Thoracentesis W US IMPRESSION: Successful right thoracentesis without immediate complication. The patient tolerated the procedure well. Reading Location: [place] [id number]
[2024-11-16 08:18] VITALS: BP 124/71; PULSE 68; RESP 18; TEMP 36.4; O2SAT 95
[2024-11-16] MEDS: Lidocaine 2% (20 ml mdv) 20 ML Vial (08:27)
[2024-11-16 08:28] VITALS: BP 115/61; PULSE 70; RESP 18; O2SAT 94
[2024-11-16 08:30] VITALS: BP 123/65; PULSE 69; RESP 18; O2SAT 94
[2024-11-16 08:33] VITALS: BP 118/62; PULSE 64; RESP 18; O2SAT 94
--- NOTE | 2024-11-16 08:35 | RAD_ITS ---
PROCEDURE: CHEST INSP/EXP 2 VIEW REASON FOR EXAM: Status post right thoracentesis. TECHNIQUE: Inspiration expiration views were obtained following the thoracentesis. COMPARISON: Comparison is made with prior study dated November 12, 2024. FINDINGS: No evidence of pneumothorax in the immediate post right thoracentesis. Residual pleural-parenchymal changes at the left lung base. RAD/Chest Insp/Exp 2 View IMPRESSION: Status post right thoracentesis. There is no evidence of pneumothorax. Residual left pleural-parenchymal changes. Reading Location: [place] [id number]
== END | disposition home or self-care (01) ==
PROVIDERS: PCP Internal Medicine; Referring Provider Physician Assistant Medical; Visit Provider Physician Assistant Medical
DX: J90 Pleural effusion, not elsewhere classified (principal)
CPT/HCPCS: 32555; 71046

== ENCOUNTER → 2024-12-21 | Outpatient (CLI) | payer MEDICARE, SELFPAY ==
[2024-11-02 14:51] VITALS: BMI 23.1
--- NOTE | 2024-12-21 10:05 | RAD_ITS ---
PROCEDURE: CHEST PA AND LATERAL 12/21/2024 REASON FOR EXAM: RECURRENT PLEURAL EFFUSIONS TECHNIQUE: Frontal and lateral views of the chest. COMPARISON: 11/16/2024 and 11/12/2024 FINDINGS: Fairly small right pleural effusion. Very small left pleural effusion versus pleural thickening. Platelike area of left base atelectasis or scar. The lungs otherwise appear clear. Pulmonary vascularity appears within limits. Status post median sternotomy with left atrial appendage closure device and epicardial pacing wires again noted. Atherosclerotic changes again seen at the aortic arch. There is again suggestion of possible enlargement of the main pulmonary artery seen on the frontal view, unchanged. RAD/Chest PA and Lateral IMPRESSION: Fairly small right pleural effusion. Very small left pleural effusion versus pl eural thickening. Platelike area of left base atelectasis or scar. The lungs otherwise appear clear. Reading Location: [id number]
== END | disposition home or self-care (01) ==
LOC: RAD 10:05
PROVIDERS: PCP Internal Medicine; Referring Provider Physician Assistant Medical; Visit Provider Physician Assistant Medical
DX: J90 Pleural effusion, not elsewhere classified (principal)
CPT/HCPCS: 71046

== ENCOUNTER → 2025-01-05 | Outpatient (CLI) | payer MEDICARE, SELFPAY ==
[2024-11-02 14:51] VITALS: BMI 23.1
[2025-01-05 10:40] LABS: Anion Gap 10 (5-15); BUN 31 mg/dL (4-19); BUN/Creat Ratio 30.8 RATIO (10-20); Calcium,Total 9.4 mg/dL (7.6-11.0); Carbon Dioxide 23.6 mmol/L (21.0-32.0); Chloride 104 mmol/L (98-108); EST Glomerular Filtration Rate 59 (>60); Glucose 97 mg/dL (70-99); Potassium 4.5 mmol/L (3.3-5.1); Sodium Level 138 mmol/L (133-145)
== END | disposition home or self-care (01) ==
LOC: LAB 09:06
PROVIDERS: PCP Internal Medicine; Referring Provider Physician Assistant Medical; Visit Provider Physician Assistant Medical
DX: J90 Pleural effusion, not elsewhere classified (principal)
CPT/HCPCS: 36415; 80048

== ENCOUNTER 2025-01-14 08:47 | Outpatient (RCR) | payer SELFPAY ==
[2024-11-02 14:51] VITALS: BMI 23.1
== END 2025-02-06 23:59 ==
LOC: NS 08:47
PROVIDERS: PCP Internal Medicine
DX: Z71.3 Dietary counseling and surveillance (principal)

== ENCOUNTER → 2025-04-21 | Outpatient (CLI) | payer MEDICARE, SELFPAY ==
[2024-11-02 14:51] VITALS: BMI 23.1
--- OUTSIDE RECORDS SUMMARY | 2025-04-21 07:20 | XMS RPT_ITS | CCD ---
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 Pantera Thomas III Referring Provider WILY Early Attending Provider Dr. Jae Belcher Primary Care Provider Dr. Jae Belcher Referring Provider WILY Early Attending Provider Dr. Jae Belcher Primary Care Provider Dr. Jae Belcher Referring Provider WILY Early Attending Provider Jae Belcher MD Primary Care Provider Jae Belcher MD Primary Care Provider Joaquim Galloway MD Unavailable JAE BELCHER Primary Care Unavailable FLAQUITA HENDRIX Admitting Unavailable FLAQUITA HENDRIX Attending Unavailable JOAQUIM GALLOWAY Admitting Unavailable JOAQUIM GALLOWAY Attending Unavailable JAE BELCHER Primary Care Unavailable JOAQUIM GALLOWAY Referring Unavailable JAE BELCHER Primary Care Unavailable KATHI, SALLY A Attending Unavailable JAE BELCHER Primary Care Unavailable KATHI, SALLY A Referring Unavailable JOAQUIM GALLOWAY Referring Unavailable JAE BELCHER HIZON Primary Care Unavailable JAH OLMEDO Referring Unavailable BELCHER, JAE [facility] Primary Care Unavailable Marium FLETCHER, Jae [facility] Primary Care Provider Joaquim Galloway MD Unavailable Unavailable Primary Care Provider Hang Kothari APRN.Savanna MARY Unavailable JOAQUIM GALLOWAY Referring Unavailable BELCHER, JAE [facility] Primary Care Unavailable LAVERNE, JOAQUIM James Attending Unavailable MARIUM[facility] Care Unavailable LAVERNE, JOAQUIM James Referring Unavailable BELCHER, JAE [facility] Primary Care Unavailable BELCHER, JAE [facility] Primary Care Unavailable JOAQUIM GALLOWAY Attending Unavailable ANITA LIM Referring Unavailable BELCHER, JAE [facility] Primary Care Unavailable BELCHER, JAE [facility] Primary Care Unavailable EH MCKEON Referring Unavailable BELCHER, JAE [facility] Primary Care Unavailable MARIUM, JAE [facility] Primary Care Unavailable JOAQUIM GALLOWAY Referring Unavailable BELCHER, JAE [facility] Primary Care Unavailable JOAQUIM GALLOWAY Referring Unavailable BELCHER, JAE [facility] Primary Care Unavailable LAVERNE, JOAQUIM James Attending Unavailable MARIUM JAE OLINDA HIMYESHACoreen Primary Care Unavailable JAE BELCHER Primary Care Unavailable JAE BELCHER Attending Unavailable JAE BELCHER Primary Care Unavailable JAE BELCHER Referring Unavailable AMANDA FLEMING Referring Unavailable JAE BELCHER Primary Care Unavailable TESTAMANDA GONZALEZ Attending Unavailable JAE BELCHER Primary Care Unavailable MARIUM, JAE Sloan Primary Care Unavailable JAE BELCHER Referring Unavailable JAE BELCHER Referring Unavailable MARIUM, JAE Sloan Primary Care Unavailable JAE BELCHER Primary Care Unavailable SAVANNA KOTHARI Attending Unavailable JAE BELCHER Primary Care Unavailable SAVANNA KOTHARI Referring Unavailable MARIUM, JAE Sloan Primary Care Unavailable SAVANNA KOTHARI Attending Unavailable BELCHER, DHARA Primary Care Unavailable BELCHER, DHARA Referring Unavailable BELCHER, DHARA Primary Care Unavailable BELCHER, DHARA Referring Unavailable MENDOZA PUENTE Attending Unavailable BELCHER, DHARA Primary Care Unavailable BELCHER, DHARA Referring Unavailable BELCHER, DHARA Primary Care Unavailable BELCHER, DHARA Referring Unavailable BELCHER, DHARA Primary Care Unavailable BELCHER, DHARA Referring Unavailable BELCHER, DHARA Primary Care Unavailable BELCHER, DHARA Attending Unavailable BELCHER, DHARA Primary Care Unavailable Marium FLETCHER, Dr. Rowe Primary Care Provider Marium FLETCHER, Dr. Rowe Referring Provider Mendoza Early Attending Provider Mendoza Early Referring Provider Mendoza Early Other Provider [phone] Christina Brooks Attending Provider Ree FLETCHER, Dr. Antunez Attending Provider Dr. Tulio Keenan MD Referring Provider Lisbeth Lay Attending Provider Marium FLETCHER, Dr. Rowe Primary Care Provider Marium FLETCHER, Dr. Rowe Referring Provider Mendoza Early Attending Provider Mendoza Early Referring Provider Mendoza Early Other Provider [phone] Referred, Self Attending Provider Unavailable Jaqueline FLETCHER, Dr. Coronel Attending Provider Referred, Self Attending Unavailable Marium, Jae Primary Care Unavailable Referred, Self Attending Unavailable Marium, Jae Primary Care Unavailable Tulio Keenan Attending Unavailable Tulio Keenan Referring Unavailable Marium, Jae Primary Care Unavailable Belcher, Jae Primary Care Unavailable Mendoza Early Attending Unavail able Mendoza Early Referring Unavail able Belcher, Jae Primary Care Unavailable Mendoza Early Attending Unavail able Mendoza Early Referring Unavail able Berna Parsons Attending Unavailable Berna Parsons Referring Unavailable Belcher, Jae Primary Care Unavailable Mendoza Early Attending Unavail able Belcher, Jae Primary Care Unavailable Mendoza Early Referring Unavail able Belcher, Jae Primary Care Unavailable Mendoza Early Attending Unavail able Mendoza Early Referring Unavail able Belcher, Jae Primary Care Unavailable Mendoza Early Attending Unavail able Mendoza Early Referring Unavail able Belcher, Jae Primary Care Unavailable Mendoza Early Referring Unavail able Mendoza Early Attending Unavail able Belcher, Jae Primary Care Unavailable Mendoza Early Referring Unavail able Mnedoza Early Attending Unavail able Belcher, Jae Primary Care Unavailable Mendoza Early Referring Unavail able Mendoza Early Attending Unavail able Belcher, Jae Primary Care Unavailable Mendoza Early Referring Unavail able Mendoza Early Attending Unavail able Tulio Keenan Attending Unavailable Ree, [place] Referring Unavailable Belcher, Jae Primary Care Unavailable Roman Alberto Attending Unavailable Roman Alberto Referring Unavailable Belcher, Jae Primary Care Unavailable Belcher, Jae Primary Care Unavailable Mendoza Early Attending Unavail able Mendoza Early Referring Unavail able Referred, Self Attending Unavailable Belcher, Jae Primary Care Unavailable Ree, Tulio Attending Unavailable Belcher, Jae Primary Care Unavailable Mendoza Early Referring Unavail able Mendoza Early Attending Unavail able Belcher, Jae Primary Care Unavailable Mendzoa Early Referring Unavail able Mendoza Early Attending Unavail able Belcher, Jae Primary Care Unavailable Mendoza Early Referring Unavail able Belcher, Jae Primary Care Unavailable Mendoza Early Attending Unavail able Mendoza Early Referring Unavail able Ree, [place] Attending Unavailable Ree, Tulio Referring Unavailable Belcher, Jae Primary Care Unavailable Lisbeth Garvey Attending Unavailable Belcher, Jae Primary Care Unavailable Mendoza Early Consulting Unavail able Chuyita JULIEN, Menodza Lawler Referring Unavail able Ari BRICK OFF BEARER, Attending Unavailable Belcher, Jae Primary Care Unavailable Chuyita JULIEN, Mendoza Lawler Consulting Unavail able Chuyita JULIEN, Mendoza Lawler Referring Unavail able Ari BRICK OFF BEARER, Attending Unavailable Chuyita JULIEN, Mendoza Lawler Consulting Unavail able Belcher, Jae Primary Care Unavailable Chuyita JULIEN, Mendoza Lawler Referring Unavail able Ari BRICK OFF BEARER, Attending Unavailable Chuyita JULIEN, Mendoza Lawler Consulting Unavail able Belcher, Jae Primary Care Unavailable Mendoza Early Referring Unavail able Belcher, Jae Referring Unavailable Belcher, Jae Primary Care Unavailable Mendoza Early Attending Unavail able Berna Parsons Attending Unavailable Belcher, Jae Referring Unavailable Belcher, Jae Primary Care Unavailable Belcher, Jae Referring Unavailable Belcher, Jae Primary Care Unavailable Mendoza Early Attending Unavail able Belcher, Jae Referring Unavailable Belcher, Jae Primary Care Unavailable Mendoza Early Attending Unavail able Belcher, Jae Referring Unavailable Belcher, Jae Primary Care Unavailable Mendoza Early Attending Unavail able Ari BRICK OFF BEARER, Attending Unavailable Belcher, Jae Primary Care Unavailable Mendoza Early Consulting Unavail able Chuyita JULIEN, Mendoza Lawler Referring Unavail able Referred, Self Attending Unavailable Belcher, Jae Primary Care Unavailable Belcher, Jae Primary Care Unavailable Mendoza Early Attending Unavail able Mendoza Early Referring Unavail able Allergies Allergy Classification Reported Allergen(s) Allergy Type Date of Onset Reaction(s) Facility (20 sources) amLODIPine; Translations: [AMLODIPINE BESYLATE] Drug Allergy 01-31-20 10 Swelling [facility] Repository (20 sources) Lisinopril; Translations: [LISINOPRIL] Drug Allergy 03-09-20 10 Cough [facility] Repository (1 source) OTHER; Translations: [OTHER] Propensity to adverse reactions (disorder) 07-14-20 09 [facility] Other [place] Repository (20 sources) Adhesive agent; Translations: [ADHESIVE] Drug Intolerance 11-06-19 19 Other: See Comments, Rash [facility] Work Phone: (12 sources) Environmental allergies [Other] Propensity to adverse reactions 07-14-20 09 [facility] (20 sources) amLODIPine; Translations: [AMLODIPINE] Drug Allergy 07-05-20 22 Swelling [facility] (11 sources) Environmental Allergies: Uncoded; Translations: [Environmental Allergies: Uncoded] Allergy to substance 08-10-20 22 Itching [facility] (20 sources) House Dust Mite; Translations: [HOUSE DUST MITE] Drug Allergy 08-26-20 23 Cough [facility] Work Phone: (20 sources) meloxicam; Translations: [MELOXICAM] Drug Allergy 01-02-20 24 Myalgia, Other [facility] (20 sources) Doxazosin; Translations: [DOXAZOSIN] Drug Allergy 05-14-20 24 [facility] Work Phone: (14 sources) Adhesive Tape-Silicones; Translations: [ADHESIVE TAPE-SILICONES] Propensity to adverse reactions 05-14-20 24 Itching [facility] (8 sources) Adhesive Tape; Translations: [adhesive tape] Allergy to substance 10-29-19 25 Itching [facility] (1 source) amLODIPine Drug Allergy 01-19-20 25 [facility] Repository (1 source) Doxazosin Drug Allergy 01-19-20 25 [facility] Repository (1 source) meloxicam Drug Allergy 01-19-20 25 [facility] Repository Medications Current Medications Medication Drug Class(es) Dates Sig (Normalized) Sig (Original) acetaminophen 500 mg oral tablet (12 sources) Start: 01-18-2025 take 1 tablet by mouth twice daily Acetaminophen 500 mg tablet Active 500 mg PO TWICE A DAY January 18, 2025 12:00am Start: 08-21-2024 [facility] hours acetaminophen (Tylenol) 325 mg tablet Indications: S/P ascending aortic replacement Take 2 tablets (650 mg) by mouth every 6 hours. 08/21/2024 Active Start: 08-11-2024 End: 08-17-2024 Start: 08-10-2024 End: 08-11-2024 take 1 tablet by mouth every six hours End: 08-22-2024 albuterol 0.833 mg/ml / ipratropium bromide 0.167 mg/ml inhalation solution (2 sources) Anticholinergic, beta2-Adrenergic Agonist Start: 08-14-2024 End: 08-16-2024 aspirin 81 mg delayed release oral tablet (15 sources) Platelet Aggregation Inhibitor, Nonsteroidal Anti-inflammatory Drug Start: 09-03-2024 Aspirin (Adult Lo w Dose Aspirin) 81 mg tablet,delayed release (DR/EC) Active 81 mg PO daily September 03, 2024 1:00am Start: 08-10-2024 End: 09-21-2024 take 1 tablet by mouth once daily aspirin 81 mg chewable tablet Take 81 mg by mouth once daily. 08/22/2024 09/21/2024 Active Start: 06-09-2024 End: 06-09-2024 take 324 mg by mouth once 324 mg, oral, Once, On Sat at 1000, For 1 dose, Preprocedure, If not taken prior to arrival B complex-vitamin C-folic acid (Nephro-Bull Rx) 1-60-300 mg-mg-mcg tablet (11 sources) take 1 tablet by britni th once daily at breakfast B complex-vitamin C-folic acid (Nephro-Bull Rx) 1-60-300 mg-mg-mcg tablet Take 1 tablet by mouth once daily with breakfast. Suspended take 1 tablet by britni th once daily at breakfast B complex-vitamin C-folic acid (Nephro-V ite Rx) 1-60-300 mg-mg-mcg tablet Take 1 tablet by mouth once daily with breakfast. Active Beta Carotene 10,000 unit capsule (7 sources) Start: 09-03-2024 take 1 capsule by mouth once daily Beta Carotene 10,000 unit capsule Active 7500 ug PO daily September 03, 2024 1:00am administer with a meal biotin 1 mg chewable tablet (18 sources) Start: 01-18-2025 take 1 tablet by mouth once daily Biotin 1,000 mcg tablet,chewable Active 1000 ug PO daily January 18, 2025 12:00am Start: 03-11-2024 End: 09-03-2024 Biotin 10,000 mcg capsule Discontinued ug PO March 11, 2024 12:00am September 03, 2024 1:58pm End: 08-28-2024 take 1 capsule by mouth once daily Biotin 10,000 mcg cap Take 1 capsule by mouth once daily. 08/28/2024 Discontinued (Discontinued by Patient) cephalexin 500 mg oral capsule (3 sources) Cephalosporin Antibacterial Start: 05-29-2024 End: 06-05-2024 take 1 capsule by mouth three times daily cephALEXin (KEFLEX) 500 mg capsule Indications: Burning with urination Take 1 capsule by mouth three times a day for 7 days. 21 capsule 05/29/2024 06/05/2024 Active Start: 05-20-2024 End: 05-27-2024 take 1 capsule by mouth twice daily cephALEXin (KEFLEX) 500 mg capsule Take 1 capsule by mouth two times a day for 7 days. 14 capsule 05/20/2024 05/27/2024 Active docusate sodium 50 mg / antonino osides, longterm 8.6 mg oral tablet (1 source) Start: 08-10-2024 Drug or medicament (substanc e) (9 sources) Start: 08-17-2024 Start: 08-15-2024 End: 08-17-2024 Start: 08-13-2024 End: 08-15-2024 Start: 08-12-2024 End: 08-13-2024 Start: 08-12-2024 End: 08-12-2024 Start: 08-12-2024 End: 08-12-2024 Start: 08-11-2024 End: 08-12-2024 Start: 08-10-2024 End: 08-11-2024 fluticasone propionate 0.05 mg/actuat metered dose nasal spray (17 sources) Corticosteroid Start: 09-03-2024 End: 01-18-2025 Fluticasone Propionate 50 mcg/actuation spray,suspension Active 1 NMA INTRANASAL daily as needed January 18, 2025 1:53pm administer into each nostril take 1 spray(s) nasal route once daily fluticasone (FLONASE) 50 mcg/actuation nasal spray Use 1 [place] in each nostril once daily. Active fluticasone (Tino nase) 50 mcg/actuation nasal spray Administer 1 spray into each nostril if needed for rhinitis. Shake gently. Before first use, prime pump. After use, clean tip and replace cap. Active glucagon (rdna) 1 mg injection (2 sources) Antihypoglycemic Agent Start: 08-21-2024 50 ml glucose 500 mg/ml prefilled syringe (2 sources) Start: 08-21-2024 loratadine 10 mg oral tablet (16 sources) Start: 09-03-2024 take 1 capsule by mouth once daily as needed Loratadine (Allergy Relief (Loratadine)) 10 mg capsule Active 10 mg PO daily as needed September 03, 2024 1:00am loratadine 10 mg dissolvable tablet Take 10 mg by mouth. Active Multivitamin preparation (3 sources) take 3000 ug by mout h once daily multivitamin (VITAMIN A DAY ORAL) Take 3,000 mcg by mouth once daily. Active multivitamin tablet (11 sources) take 1 tablet by britni th once daily multivitamin tablet Take 1 tablet by mouth once daily. Suspended take 1 tablet by mouth once olga y multivitamin tablet Take 1 tablet by mouth once daily. Active Multivitamin tablet (7 sources) Start: 03-11-2024 Multivitamin t ablet Active 1 {tbl} PO DAILY March 11, 2024 12:00am ha-erg-lypil-calcium carb-K1 (WOMEN'S 50 PLUS MULTIVITAMIN) 400 mcg-500 mg calcium-20 mcg tab (7 sources) Start: 05-29-2024 take 1 tablet by mouth once daily ab-wmn-htpqp-calcium carb-K1 (WOMEN'S 50 PLUS MULTIVITAMIN) 400 mcg-500 mg calcium-20 mcg tab Take 1 tablet by mouth once daily. 05/29/2024 Active mv-min/FA/vit K/lutein/zeaxant (PRESERVISION AREDS 2 PLUS MV ORAL) (11 sources) mv-min/FA/vit K/lutein/zeaxant (PRESERVISION AREDS 2 PLUS MV ORAL) Take 1 tablet by mouth once daily. Suspended mv-min/FA/vit K/ lutein/zeaxant (PRESERVISION AREDS 2 PLUS MV ORAL) Take 1 tablet by mouth once daily. Active nitrofurantoin, macrocrystals 25 mg / nitrofurantoin, monohydrate 75 mg oral capsule (1 source) Nitrofuran Antibacterial Start: 10-26-2023 End: 10-29-2023 take 1 capsule by mouth twice daily at mealtime nitrofurantoin monohydrate and macrocrystal (MACROBID) 100 mg capsule Indications: Dysuria Take 1 capsule by mouth two times a day with meals for 3 days. 6 capsule 0 10/26/2023 10/29/2023 Active Comment on above: [facility] 1 capsule [facility] two times a day with meals for 3 days. olopatadine 1 mg/ml ophthalmic solution (20 sources) Histamine-1 Receptor Inhibitor Start: 04-28-2019 End: 04-30-2019 Olopatadine 0.1 % drops Active 1 NMA OPHTHALMIC TWICE A DAY as needed April 30, 2019 11:15am Start: 06-28-2009 End: 04-30-2019 olopatadine hcl(PATANOL 0.1 % EYE DROPS) Indications: Acute atopic conjunctivitis 1 to 2 drops to each eye twice daily as needed 1 11 06/28/2009 Active olopatadine (Pat anol) 0.1 % ophthalmic solution Administer 1 drop into both eyes if needed. Active take 1 drop(s) into the eye(s) twice daily olopatadine (Patanol) 0.1 % ophthalmic solution Administer 1 drop into both eyes 2 times a day. Active Comment on above: 1 to 2 drops to each eye twice daily as needed 2 ml ondansetron 2 mg/ml injection (11 sources) Serotonin-3 Receptor Antagonist Start: 08-10-2024 take 4 mg intravenously every eight hours as needed Start: 02-08-2019 End: 04-28-2019 take 1 tablet by mouth every eight hours as needed for nausea Ondansetron Hcl 8 MG tablet Discontinued 8 mg PO EVERY 8 HOURS NEEDED as needed for nausea vomiting February 08, 2019 12:00am April 28, 2019 5:03pm polyethylene glycol 3350 12276 mg powder for oral solution (8 sources) Osmotic Laxative Start: 08-10-2024 take 17 g by mouth every twenty-four hours as needed polyethylene glycol 3350 17 gram packet Take 17 g by mouth at bedtime as needed. 08/21/2024 Active Potassium (3 sources) End: 07-24-2022 POTASSIUM ORAL Take by mouth. 0 07/24/2022 Discontinued POTASSIUM ORAL T tegan by mouth. 0 Active Comment on above: Take by mouth. pravastatin sodium 20 mg oral tablet (20 sources) HMG-CoA Reductase Inhibitor Start: 09-04-2023 End: 09-13-2024 take 1 tablet by mouth once daily Pravastatin 20 mg tablet Active 20 mg PO daily March 11, 2024 12:00am Comment on above: Take 1 tablet by britni th once daily. simethicone 80 mg chewable tablet (8 sources) Start: 08-21-2024 simethicone, chewable (MYLICON) 80 mg chewable tablet Take 120 mg by mouth. 08/21/2024 Active Start: 08-12-2024 simethicone (M ylicon) 80 mg chewable tablet Indications: S/P ascending aortic replacement Chew 1.5 tablets (120 mg) 4 times a day as needed for flatulence (gas pains). 08/21/2024 Active spironolactone 25 mg oral tablet (20 sources) Aldosterone Antagonist Start: 09-03-2024 End: 12-08-2024 take 1 tablet by mouth once daily Spironolactone 25 mg tablet Active 25 mg PO DAILY December 08, 2024 10:44am Start: 07-05-2022 End: 09-03-2024 take 1 tablet by mouth once daily Spironolactone 50 mg tablet Discontinued 50 mg PO DAILY November 04, 2023 2:43pm September 03, 2024 1:58pm Comment on above: Take 50 mg by mouth once daily. Take 1 tablet by britni th once daily. Per [facility] Take 50 mg by mouth once daily. Per [facility] traZODone hydrochloride 50 mg oral tablet (1 source) Serotonin Reuptake Inhibitor Start: 4 Vit B Cmplx 3-FA-Vit C-Biotin tablet (5 sources) Vit B Cmplx 3-FA-Vit C-Biotin tablet Take 1 tablet by mouth daily with breakfast. Active Vit B Complx-Folic Ac-C-Biotin 1 mg-60 mg- 300 mcg tablet (7 sources) Start: 4 Vit B Complx-Folic Ac-C-Biotin 1 mg-60 mg- 300 mcg tablet Active {tbl} PO DAILY September 03, 2024 1:00am Vit C,P-Cm-Yatjx-Lutein-Ant avery (Preservision Areds-2) 250-90-40-1 mg capsule (15 sources) Start: take 2 capsules by mouth twice daily Vit C,P-Uj-Hsjjg-Lute in-Zeaxan (Preservision Areds-2) 250-90-40-1 mg capsule Active 1 {tbl} PO TWICE A DAY March 11, 2024 2:40pm Start: 08-20-2023 End: 03-11-2024 take 2 capsules by mouth once Vit C,Z-Wd-Evfru-Lutein-Zeaxan (Preservision Areds-2) 250-90-40-1 mg capsule Discontinued 1 {tbl} PO ONCE August 20, 2023 1:00am March 11, 2024 2:41pm Start: 08-20-2023 Vit C,E-Zn-Machine Etcher cr-Kaoxwn-Gdncfm (Preservision Areds-2) 250-90-40-1 mg capsule Active 1 TABLET PO ONCE August 20, 2023 12:00am vit C/E/Zn/coppr/lutein/zeax an (PRESERVISION AREDS-2 ORAL) (20 sources) take 1 tablet by mouth twice daily vit C/E/Zn/coppr/lutein/zeaxan (PRESERVISION AREDS-2 ORAL) Take 1 tablet by mouth two times a day. Active take 1 tablet by britni th twice daily vit C/E/Zn/coppr/lutein/zeaxan (PRESERVI RIO AREDS-2 ORAL) Take 1 tablet by mouth two times a day. 0 Active Comment on above: Take 1 tablet by britni th two times a day. VITAMIN A ORAL (20 sources) take 400 mg by mouth once daily VITAMIN A ORAL Take 400 mg by mouth once daily. Active take 400 mg by mouth once daily VITAMIN A ORAL Take 400 mg by mouth once daily. 0 Active Comment on above: Take 400 mg by mouth once daily. (1 source) (1 source) (2 sources) Start: 08-19-2024 End: 08-31-2024 [Order 1 Start] Name: amiodarone (Pacerone) tablet 400 mg Signed Summary: 400 mg, oral, 2 times daily, First dose on Sat08/19/24 at 0900, For 25 doses, Indications: atrial fibrillation [Order 1 End] [Order 2 Start] Name: amiodarone (Pacerone) tablet 200 mg Signed Summary: 200 mg, oral, Daily, First dose on Sat09/01/24 at 0900, Indications: atrial fibrillation [Order 2 End] Start: 08-12-2024 End: 08-12-2024 (1 source) Start: 08-16-2024 Completed/Discontinued Medications Medication Drug Class(es) Dates Sig (Normalized) Sig (Original) 500 ml albumin human, longterm 50 mg/ml injection (2 sources) Human Serum Albumin Start: 08-12-2024 End: 08-12-2024 Start: 08-11-2024 End: 08-11-2024 amiodarone hydrochloride 200 mg oral tablet (20 sources) Antiarrhythmic Start: 09-03-2024 End: 10-29-2024 take 1 tablet by mouth once daily Amiodarone 200 mg tablet Discontinued 200 mg PO daily September 03, 2024 1:00am October 29, 2024 11:32am Start: 08-21-2024 End: 10-13-2024 take 2 tablets by mouth twice daily, then take 1 tablet by mouth once daily amiodarone (PACERONE) 200 mg tablet Take 400 mg by mouth two times a day. for 10 days and then 200 mg daily for 20 days 08/21/2024 10/13/2024 Discontinued (Discontinued by another Health Care Provider) Start: 08-19-2024 End: 08-19-2024 Start: 08-12-2024 End: 08-12-2024 Start: 08-12-2024 End: 08-12-2024 Start: 08-12-2024 End: 08-12-2024 amoxicillin 875 mg / clavulanate 125 mg oral tablet (10 sources) Penicillin-class Antibacterial Start: 02-08-2019 End: 04-28-2019 take 1 tablet by mouth every twelve hours Amoxicillin-Pot Clavulanate 875 MG tablet Discontinued 875 mg PO Q12H February 08, 2019 12:00am April 28, 2019 5:03pm apixaban 5 mg oral tablet (20 sources) Factor Xa Inhibitor Start: 08-20-2024 End: 11-19-2024 take 1 tablet by mouth twice daily Apixaban 5 mg tablet Discontinued 5 mg PO TWICE A DAY September 03, 2024 1:00am September 16, 2024 11:56am atenolol 50 mg oral tablet (20 sources) beta-Adrenergic Pati Start: 02-05-2019 End: 08-25-2019 take 1 tablet by mouth once daily Atenolol 50 mg tablet Discontinued 50 mg PO DAILY 90 April 30, 2019 11:59am August 25, 2019 10:06am benzonatate 100 mg oral capsule (1 source) Non-narcotic Antitussive Start: 08-15-2024 End: 08-17-2024 calcium carbonate 1500 mg / cholecalciferol 200 unt oral capsule (10 sources) Vitamin D Start: 04-28-2019 End: 08-20-2023 Calcium Carbonate-Vitamin D3 600 mg calcium- 200 unit capsule Discontinued 1 NMA PO DAILY April 28, 2019 12:00am August 20, 2023 10:12am Calcium Carbonate / vitamin D3 (12 sources) take 1 tablet by mouth twice daily CALCIUM CARBONATE/VITAMIN D3 (CALCIUM 600 + D ORAL) Take 1 tablet by mouth twice daily. 0 Active Comment on above: Take 1 tablet by britni twice daily. calcium chloride 0.0014 meq/ml / potassium chloride 0.004 meq/ml / sodium chloride 0.103 meq/ml / sodium lactate 0.028 meq/ml injectable solution (9 sources) Start: 08-13-2024 End: 08-14-2024 Start: 08-10-2024 End: 08-13-2024 100 ml calcium gluconate 20 mg/ml injection (1 source) Start: 08-11-2024 End: 08-11-2024 ceFAZolin 2000 mg injection (1 source) Cephalosporin Antibacterial Start: 08-10-2024 End: 08-12-2024 take 2 g intravenously every eight hours chlorhexidine gluconate 1.2 mg/ml mouthwash (2 sources) Start: 07-29-2024 End: 08-10-2024 Start: 07-29-2024 chlorhexidine (Peridex) 0.12 % solution Indications: Preop testing 15 ml swish and spit for 30 seconds night prior to surgery and morning of surgery 473 mL 07/29/2024 Active cholecalciferol 0.05 mg oral capsule (9 sources) Vitamin D Start: 11-29-2022 End: 08-20-2023 take 1 capsule by mouth once daily Cholecalciferol (Vitamin D3) 50 mcg (2,000 unit) capsule Discontinued 50 ug PO DAILY November 29, 2022 12:00am August 20, 2023 10:11am dextromethorphan hydrobromide 2 mg/ml / guaiFENesin 20 mg/ml oral solution (1 source) Uncompetitive D-vstgdm-M-asparta te Receptor Antagonist, Sigma-1 Agonist Start: 08-15-2024 End: 08-17-2024 take 10 mL by mouth every four hours as needed doxazosin 2 mg oral tablet (20 sources) alpha-Adrenergic Pati Start: 08-20-2023 End: 03-23-2024 take 1 tablet by mouth at bedtime Doxazosin (Cardura) 2 mg tablet Discontinued 2 mg PO AT BEDTIME August 20, 2023 1:00am March 11, 2024 2:38pm Comment on above: Take 1 tablet by britni th daily at bedtime. [facility]. 0.4 ml enoxaparin sodium 100 mg/ml prefilled syringe (1 source) Low Molecular Weight Heparin Start: 08-12-2024 End: 08-19-2024 EPINEPHrine (Adrenalin) 4 mg in dextrose 5% 250 mL (16 mcg/mL) infusion (premix) (1 source) Start: 08-10-2024 End: 08-11-2024 ferrous sulfate 325 mg oral tablet (1 source) Start: 08-17-2024 End: 08-19-2024 furosemide 20 mg oral tablet (20 sources) Loop Diuretic Start: 12-22-2024 End: 01-18-2025 take 1 tablet by mouth once daily in the morning Furosemide 20 mg tablet Discontinued 20 mg PO EVERY MORNING December 22, 2024 10:05am January 18, 2025 1:53pm Start: 11-10-2024 End: 12-22-2024 take 1 tablet by mouth once daily in the morning Furosemide 40 mg tablet Discontinued 40 mg PO EVERY MORNING November 10, 2024 12:38pm December 22, 2024 10:07am Start: 09-04-2024 End: 10-29-2024 take 1 tablet by mouth once daily in the morning Furosemide 40 mg tablet Discontinued 40 mg PO EVERY MORNING September 21, 2024 11:17am October 29, 2024 12:07pm Start: 08-21-2024 End: 08-29-2024 take 1 tablet by mouth twice daily furosemide (Lasix) 20 mg tablet Indications: S/P ascending aortic replacement Take 1 tablet (20 mg) by mouth 2 times daily (morning and late afternoon) for 7 days. 14 tablet 08/22/2024 11:17 AM EST 08/21/2024 Active Start: 08-12-2024 End: 08-21-2024 take 20 mg intravenously every twelve hours 12 hr guaiFENesin 600 mg extended release oral tablet (1 source) Start: 08-18-2024 End: 08-21-2024 hydrALAZINE hydrochloride 25 mg oral tablet (20 sources) Arteriolar Vasodilator Start: 05-30-2020 End: 06-06-2020 take 1 tablet by mouth three times daily Hydralazine 25 mg tablet Discontinued 25 mg PO THREE TIMES A DAY May 30, 2020 4:59pm June 06, 2020 2:38pm hydroCHLOROthiazide 25 mg oral tablet (20 sources) Thiazide Diuretic Start: 11-29-2022 End: 08-20-2023 take 1 tablet by mouth once daily Hydrochlorothiazide 25 mg tablet Discontinued 25 mg PO DAILY November 29, 2022 2:02pm August 20, 2023 10:12am Start: 08-22-2021 End: 07-24-2022 take 2 tablets by mouth once daily hydroCHLOROthiazide (HYDRODIURIL, ESIDRIX) 12.5 mg tablet Take 2 tablets by mouth once daily. 0 08/22/2021 07/24/2022 Discontinued Start: 05-10-2020 End: 07-05-2022 take 1 tablet by mouth once daily Hydrochlorothiazide 25 mg tablet Discontinued 25 mg PO DAILY August 10, 2021 4:24pm July 05, 2022 11:14am Start: 02-05-2019 End: 05-10-2020 take 1 tablet by mouth once daily Hydrochlorothiazide 12.5 MG tablet Discontinued 12.5 mg PO DAILY February 05, 2019 12:00am May 10, 2020 2:51pm Comment on above: [facility] 1 ml HYDROmorphone hydrochloride 0.2 mg/ml prefilled syringe (1 source) Opioid Agonist Start: End: 4 insulin lispro 100 unt/ml injectable solution (2 sources) Insulin Analog Start: 4 End: 4 iohexol (OMNIPaque) 350 mg iodine/mL solution 75 mL (1 source) Start: 5 End: 5 75 mL, intravenous, Once in imaging, Starting on Sat09/30/24 at 1324, For 1 dose irbesartan 300 mg oral tablet (20 sources) Angiotensin 2 Receptor Pati Start: 9 End: 4 take 1 tablet by mouth once daily Irbesartan 300 MG tablet Discontinued 300 mg PO DAILY February 05, 2019 12:00am September 03, 2024 1:58pm Comment on above: Take 1 tablet by britni th once daily. 10 ml lidocaine hydrochloride 10 mg/ml injection (2 sources) Antiarrhythmic, Amide Local Anesthetic Start: 4 End: 4 Start: 08-10-2024 End: 08-13-2024 Magnesium (10 sources) Start: 04-30-2019 End: 08-20-2023 take 1 tablet by mouth once daily Magnesium 250 mg tablet Discontinued 250 mg PO DAILY April 30, 2019 12:00am August 20, 2023 10:12am Start: 04-30-2019 End: 08-20-2023 take 250 mg by mouth once daily Magnesium Discontinued 250 MG PO DAILY April 29, 2019 11:00pm August 20, 2023 9:12am Start: 04-30-2019 take 250 mg by mouth once daily Magnesium Active 250 MG PO DAILY April 30, 2019 12:00am Start: 04-30-2019 take 250 mg by mouth once daily Magnesium Active 250 MG PO DAILY April 29, 2019 11:00pm 50 ml magnesium sulfate 40 m g/ml injection (5 sources) Start: 08-19-2024 End: 08-20-2024 Start: 08-10-2024 End: 08-14-2024 meloxicam 15 mg oral tablet (20 sources) Nonsteroidal Anti-inflammatory Drug Start: 08-10-2021 End: 03-11-2024 take 1 tablet by mouth once daily as needed Meloxicam 15 mg tablet Discontinued 15 mg PO DAILY as needed August 10, 2021 1:00am March 11, 2024 2:39pm Comment on above: Take 15 mg by mouth once daily. Take 1 tablet by britni th once daily. 24 hr metoprolol succinate 100 mg extended release oral tablet (20 sources) beta-Adrenergic Pati Start: 09-03-2024 End: 09-03-2024 take 4 tablets by mouth twice daily Metoprolol Succinate 100 mg tablet extended release 24 hr Discontinued 25 mg PO TWICE A DAY September 03, 2024 1:57pm September 03, 2024 4:08pm Start: 08-28-2024 End: 10-13-2024 take 1 tablet by mouth once daily metoprolol succinate ER (TOPROL XL) 25 mg 24 hr tablet Take 1 tablet by mouth once daily. 08/28/2024 10/13/2024 Discontinued (Discontinued by another Health Care Provider) Start: 08-14-2024 End: 09-21-2024 take 1 tablet by mouth twice daily Metoprolol Tartrate 25 mg tablet Discontinued 25 mg PO TWICE A DAY September 03, 2024 1:00am September 21, 2024 12:56pm Start: 05-08-2024 End: 08-22-2024 Start: 05-15-2023 End: 09-03-2024 take 1 tablet by mouth once daily Metoprolol Succinate 100 mg tablet extended release 24 hr Discontinued 100 mg PO daily March 11, 2024 12:00am September 03, 2024 1:58pm Start: 08-10-2021 End: 03-11-2024 Metoprolol Succinate 50 mg t ablet extended release 24 hr Discontinued 100 mg PO DAILY August 10, 2021 3:56pm March 11, 2024 2:39pm Start: 08-10-2021 take 100 mg by mouth once daily Metoprolol Succinate Active 100 MG PO DAILY August 10, 2021 2:56pm Start: 04-11-2021 End: 05-13-2023 take 1 tablet by mouth once daily metoprolol succinate ER (TOPROL XL) 100 mg Take 1 tablet by mouth once daily. 90 tablet 3 05/09/2022 05/13/2023 Discontinued Start: 08-25-2019 End: 08-10-2021 take 1 tablet by mouth once daily Metoprolol Succinate 50 mg tablet extended release 24 hr Discontinued 50 mg PO DAILY August 25, 2019 1:00am August 10, 2021 3:57pm Comment on above: Take 1 tablet by britni th once daily. multivitamin ORAL tablet (12 sources) take 1 tablet by mouth once daily multivitamin ORAL tablet Take 1 tablet by mouth once daily. 0 Active Comment on above: Take 1 tablet by britni th once daily. Multivitamin With Folic Acid (3 sources) Start: 10-12-2013 End: 08-20-2023 take 1 tablet by mouth at bedtime Multivitamin With Folic Acid Discontinued 1 TABLET PO AT BEDTIME October 12, 2013 12:00am August 20, 2023 9:12am Start: 10-12-2013 take 1 tablet by britni th at bedtime Multivitamin With Folic Acid Active 1 TABLET PO AT BEDTIME October 12, 2013 1:00am Start: 10-12-2013 take 1 tablet by britni th at bedtime Multivitamin With Folic Acid Active 1 TABLET PO AT BEDTIME October 12, 2013 12:00am Multivitamin With Folic Acid 1 TABLET tablet (7 sources) Start: 10-12-2013 End: 08-20-2023 take 1 tablet by mouth at bedtime Multivitamin With Folic Acid 1 TABLET tablet Discontinued 1 {tbl} PO AT BEDTIME October 12, 2013 1:00am August 20, 2023 10:12am norepinephrine (Levophed) 8 mg in dextrose 5% 250 mL (0.032 mg/mL) infusion (premix) (1 source) Start: 08-10-2024 End: 08-11-2024 oxyCODONE hydrochloride 5 mg oral capsule (11 sources) Opioid Agonist Start: 09-03-2024 End: 01-18-2025 take 1 capsule by mouth twice daily as needed Oxycodone 5 mg capsule Discontinued 5 mg PO TWICE A DAY as needed September 03, 2024 1:00am January 18, 2025 1:53pm Start: 08-17-2024 End: 08-26-2024 Start: 08-10-2024 End: 08-17-2024 take 1 tablet by mouth every four hours as needed Start: 08-10-2024 End: 08-17-2024 take 1 tablet by mouth every four hours as needed oxygen (O2) therapy (1 source) Start: 08-10-2024 End: 08-10-2024 piperacillin 4000 mg / tazobactam 500 mg injection (1 source) Penicillin-cla ss Antibacterial, beta Lactamase Inhibitor Start: 08-12-2024 End: 08-14-2024 take 4.5 g intravenously every six hours microencapsulated potassium chloride 20 meq extended release oral tablet (20 sources) Start: 12-22-2024 End: 01-18-2025 take 1 tablet by mouth once daily Potassium Chloride 20 mEq tablet,ER particles/jamel ls Discontinued 20 meq PO daily December 22, 2024 12:00am January 18, 2025 1:53pm Start: 09-11-2024 End: 10-29-2024 take 2 capsules by mouth once daily Potassium Chloride 10 mEq capsule, extended release Discontinued 20 meq PO DAILY 60 September 11, 2024 1:00am October 29, 2024 12:07pm Start: 08-21-2024 take 40 mEq by mouth twice yumi ly potassium chloride 20 mEq TbER Take 40 mEq by mouth two times a day. 08/21/2024 Active Start: 08-16-2024 End: 08-29-2024 Start: 08-14-2024 End: 08-14-2024 Start: 08-10-2024 End: 08-10-2024 Start: 11-29-2022 End: 08-20-2023 take 1 capsule by mouth once daily Potassium Chloride 10 mEq capsule, extended release Discontinued 10 meq PO DAILY November 29, 2022 12:00am August 20, 2023 10:12am Start: 08-10-2021 End: 07-05-2022 take 2 capsules by mouth once daily Potassium Chloride 10 mEq capsule, extended release Discontinued 20 meq PO DAILY August 10, 2021 1:00am July 05, 2022 11:13am Start: 08-10-2021 End: 07-05-2022 take 20 mEq by mouth once daily Potassium Chloride Dis continued 20 MEQ PO DAILY 180 August 10, 2021 12:00am July 05, 2022 10:13am Start: 05-19-2020 End: 08-10-2021 take 1 tablet by mouth once daily Potassium Chloride 20 mEq tablet extended release Discontinued 20 meq PO DAILY June 19, 2020 11:06am August 10, 2021 4:23pm 10 ml propofol 10 mg/ml inje ction (1 source) General Anesthetic Start: 08-10-2024 End: 08-10-2024 sodium chloride 30 mg/ml inh alation solution (4 sources) Start: 08-14-2024 End: 08-16-2024 Start: 08-10-2024 End: 08-11-2024 Start: 06-09-2024 End: 06-09-2024 take 100 mL intravenously every hour 100 mL/hr, intravenous, Continuous, Starting on Sat06/09/24 at 1000, Preprocedure vitamin a 37183 unt oral capsule (20 sources) Vitamin A Start: 04-30-2019 End: 09-03-2024 Vitamin A 10,000 unit capsul e Discontinued [id number] U PO DAILY April 30, 2019 12:00am September 03, 2024 1:58pm Vitamin B Complex (B Complex-Vitamin B12) tablet (10 sources) Start: 04-28-2019 End: 08-20-2023 Vitamin B Complex (B Complex-Vitamin B12) tablet Discontinued 1 {tbl} PO DAILY April 28, 2019 12:00am August 20, 2023 10:12am Start: 04-28-2019 End: 08-20-2023 take 1 tablet by mouth once daily Vitamin B Complex (B Complex-Vitamin B12) tablet Discontinued 1 TABLET PO DAILY April 27, 2019 11:00pm August 20, 2023 9:12am Start: 04-28-2019 take 1 tablet by britni th once daily Vitamin B Complex (B Complex-Vitamin B12) tablet Active 1 TABLET PO DAILY April 28, 2019 12:00am Start: 04-28-2019 take 1 tablet by britni th once daily Vitamin B Complex (B Complex-Vitamin B12) tablet Active 1 TABLET PO DAILY April 27, 2019 11:00pm vitamin b12 0.05 mg oral tablet (12 sources) Vitamin B12 take 1 tablet by mouth once daily Cyanocobalamin 50 mcg tab Take 1 tablet by mouth once daily. 0 Active Comment on above: Take 1 tablet by britni th once daily. zinc gluconate 50 mg oral tablet (9 sources) Start: 11-29-2022 End: 08-20-2023 take 1 tablet by mouth once daily Zinc Gluconate 50 mg tablet Discontinued 50 mg PO DAILY November 29, 2022 12:00am August 20, 2023 10:12am (3 sources) Start: 08-13-2024 End: 08-15-2024 Start: 08-12-2024 End: 08-13-2024 Start: 08-12-2024 End: 08-12-2024 (3 sources) Start: 08-13-2024 End: 08-14-2024 Start: 08-11-2024 End: 08-13-2024 Start: 08-10-2024 End: 08-10-2024 (2 sources) Start: 08-11-2024 End: 08-12-2024 Start: 08-10-2024 End: 08-10-2024 Problems Active Problems Problem Classification Problem Date Documented Date Episodic/Chronic Acquired foot deformities (1 source) Toe joint rigid; Translations: [Hallux rigidus, right foot] 01-02-2024 Chronic Administrative/socia l admission (1 source) First encounter by subject; Translations: [Persons encountering health services in other specified circumstances] 01-18-2025 Episodic Aortic; peripheral; and visceral artery aneurysms (20 sources) Thoracic aortic aneurysm, without rupture; Translations: [Aortic root dilatation] Onset: 8 10-14-2018 Chronic Comment on above: CTA images reviewed, 4.83 cm by center line, taper to normal prior to innominateECHO-tricuspid aortic valve Cancer of breast (20 sources) Intraductal carcinoma in situ of breast; Translations: [Intraductal carcinoma in situ of unspecified breast] Onset: 1 09-04-2021 Chronic Cancer of breast (20 sources) History of malignant neoplasm of breast; Translations: [Personal history of malignant neoplasm of breast] Onset: 8 06-05-2018 Episodic Cardiac dysrhythmias (3 sources) Unspecified atrial fibrillation; Translations: [Paroxysmal atrial fibrillation] Onset: 5 Chronic Cardiac dysrhythmias (2 sources) Palpitations; Translations: [Palpitations] Onset: 4 08-28-2024 Episodic Chronic kidney disease (20 sources) Chronic kidney disease stage 3A ; Translations: [Chronic renal impairment, stage 3a (HCC)] Onset: 4 10-17-2023 Chronic Complications of surgical procedures or medical care (20 sources) Iatrogenic hypotension; Translations: [Postprocedural hypotension] Onset: 5 08-18-2024 Episodic Conditions associated with dizziness or vertigo (2 sources) Lightheadedness; Translations: [Dizziness and giddiness] Onset: 4 08-28-2024 Episodic Deficiency and other anemia (1 source) Anemia due to blood loss; Translations: [Iron deficiency anemia secondary to blood loss (chronic)] 08-28-2024 Chronic Deficiency and other anemia (1 source) Iron deficiency anemia secondary to blood loss (chronic); Translations: [Blood loss anemia] Onset: 4 Chronic Diabetes mellitus without complication (12 sources) Type 2 diabetes mellitus without complication; Translations: [Type 2 diabetes mellitus without complications] Onset: 4 02-25-2024 Chronic Diabetes mellitus without complication (20 sources) Impaired fasting glycemia; Translations: [Impaired fasting glucose] Onset: 9 Resolved: 4 07-27-2019 Episodic Disorders of lipid metabolism (20 sources) Raised low density lipoprotein cholesterol; Translations: [Pure hypercholesterolemia, unspecified] Onset: 3 09-04-2023 Chronic Essential hypertension (20 sources) Benign essential hypertension; Translations: [Essential (primary) hypertension] Onset: 9 06-21-2009 Chronic Genitourinary symptoms and ill-defined conditions (5 sources) Dysuria; Translations: [Dysuria] Onset: 4 10-26-2023 Episodic Heart valve disorders (20 sources) Aortic murmur; Translations: [Other nonrheumatic aortic valve disorders] Onset: 6 07-30-2016 Chronic Immunizations and screening for infectious disease (3 sources) Vaccination needed; Translations: [Encounter for immunization] Episodic Malaise and fatigue (2 sources) Asthenia; Translations: [Weakness] Onset: 4 08-28-2024 Episodic Neoplasms of unspecified nature or uncertain behavior (1 source) Thrombocytosis; Translations: [Thrombocytosis] Onset: 5 Chronic Neoplasms of unspecified nature or uncertain behavior (1 source) Thrombocytosis; Translations: [Thrombocytosis] 10-13-2024 Episodic Osteoarthritis (20 sources) Bilateral arthritis of first metatarsophalangeal joints; Translations: [Primary osteoarthritis, right ankle and foot] Onset: 0 08-27-2023 Chronic Other circulatory disease (1 source) History of aortic arch replacement; Translations: [Presence of other vascular implants and grafts] 08-18-2024 Chronic Other circulatory disease (2 sources) History of replacement of ascending aorta; Translations: [Presence of other vascular implants and grafts] 08-21-2024 Chronic Other circulatory disease (2 sources) Presence of other vascular implants and grafts; Translations: [Presence of other vascular implants and grafts] Onset: 5 Chronic Other circulatory disease (1 source) Personal history of other diseases of the circulatory system; Translations: [S/P aortic aneurysm repair] Onset: 4 Episodic Other connective tissue disease (1 source) Foot pain; Translations: [Pain in right foot] 01-18-2025 Episodic Other connective tissue disease (1 source) Pain in right foot; Translations: [Pain in right foot] Onset: 5 Episodic Other connective tissue disease (1 source) Pain in left foot; Translations: [Pain in left foot] Onset: 5 Episodic Other diseases of kidney and ureters (7 sources) Renal impairment; Translations: [Disorder of kidney and ureter, unspecified] 03-11-2024 Episodic Other diseases of veins and lymphatics (1 source) Vascular insufficiency; Translations: [Venous insufficiency (chronic) (peripheral)] 08-28-2024 Episodic Other diseases of veins and lymphatics (1 source) Venous insufficiency (chronic) (peripheral); Translations: [Venous insufficiency] Onset: 4 Episodic Other lower respiratory disease (1 source) Dyspnea on exertion; Translations: [Other forms of dyspnea] 08-28-2024 Episodic Other nervous system disorders (1 source) Paresthesia of foot ; Translations: [Anesthesia of skin] 01-18-2025 Episodic Other nervous system disorders (1 source) Paresthesia of skin; Translations: [Paresthesia of skin] Onset: 5 Episodic Other nervous system disorders (1 source) Anesthesia of skin; Translations: [Anesthesia of skin] Onset: 5 Episodic Other screening for suspected conditions (not mental disorders or infectious disease) (5 sources) Patient encounter status; Translations: [Encounter for screening mammogram for malignant neoplasm of breast] Onset: 4 07-23-2023 Episodic Other upper respiratory disease (20 sources) Allergic rhinitis; Translations: [Allergic rhinitis, unspecified] Onset: 9 06-21-2009 Chronic Pleurisy; pneumothorax; pulmonary collapse (20 sources) Pleural effusion; Translations: [Pleural effusion, not elsewhere classified] Onset: 4 08-28-2024 Episodic Residual codes; unclassified (1 source) Pain; Translations: [Pain, unspecified] 01-02-2024 Episodic Residual codes; unclassified (1 source) Bilateral lower limb edema; Translations: [Localized edema] 08-28-2024 Episodic Residual codes; unclassified (1 source) Localized edema; Translations: [Bilateral lower extremity edema] Onset: Episodic Respiratory failure; insufficiency; arrest (adult) (5 sources) Acute respiratory distress syndrome; Translations: [Acute respiratory distress syndrome] Onset: 4 08-14-2024 Episodic Superficial injury; contusion (2 sources) Contusion of left lesser toe; Translations: [Contusion of left lesser toe(s) without damage to nail, initial encounter] 01-02-2024 Episodic Unclassified (2 sources) Aneurysm of the ascending aorta, without rupture (CMS-HCC); Translations: [Aneurysm of the ascending aorta, without rupture (CMS-HCC)] Onset: 4 Unclassified (2 sources) History of replacement of ascending aorta 08-22-2024 Unclassified (2 sources) Nurse Visit; Translations: [Nurse Visit] Onset: 4 Unclassified (1 source) Chronic renal impairment, stage 3a (HCC); Translations: [Chronic renal impairment, stage 3a (HCC)] Onset: 4 Unclassified (5 sources) I71.21 - Aneurysm of the ascending aorta, without rupture Unclassified (7 sources) N28.9 - Disorder of kidney and ureter, unspecified,I10 - Essential (primary) hypertension,I97.89 - Other postprocedural complications and disorders of the circulatory system, not elsewhere classified,I48.91 - Unspecified atrial fibrillation Unclassified (2 sources) Pain in both feet; Translations: [M79.671 - Pain in right foot,M79.672 - Pain in left foot] Unclassified (1 source) Postoperative atrial fibrillation Unclassified (1 source) Aneurysm of the ascending aorta, without rupture; Translations: [Aneurysm of the ascending aorta, without rupture] Onset: Past or Other Problems Problem Classification Problem Date Documented Da te Episodic/Chronic Acquired foot deformities (17 sources) Bunion; Translations: [Bunion of left foot] Onset: 07-18-2013 Resolved: 07-27-2014 07-27-2014 Episodic Diverticulosis and diverticulitis (20 sources) Diverticular disease; Translations: [Diverticulosis of intestine, part unspecified, without perforation or abscess without bleeding] Onset: 07-27-2019 Resolved: 08-26-2023 07-27-2019 Chronic Inflammation; infection of eye (except that caused by tuberculosis or sexually transmitteddisease) (17 sources) Eczematous dermatitis of eyelid; Translations: [Eczematous dermatitis of unspecified eye, unspecified eyelid] Onset: 07-26-2009 Resolved: 08-22-2021 08-22-2021 Episodic Menopausal disorders (20 sources) Menopausal symptom; Translations: [Menopausal and female climacteric states] Onset: 07-25-2011 Resolved: 08-26-2023 07-25-2011 Chronic Nonmalignant breast conditions (20 sources) Disproportion of reconstructed breast; Translations: [Disproportion of reconstructed breast] Onset: 06-05-2018 06-05-2018 Episodic Other and unspecified benign neoplasm (20 sources) Adenoma of ascending colon; Translations: [Benign neoplasm of ascending colon] Onset: 07-01-2018 07-01-2018 Episodic Other bone disease and musculoskeletal deformities (20 sources) Osteopenia; Translations: [Other specified disorders of bone density and structure, unspecified site] Onset: 08-26-2023 08-26-2023 Episodic Other diseases of kidney and ureters (2 sources) Disorder of kidney and ureter, unspecified; Translations: [Disorder of kidney and ureter, unspecified] Onset: 10-06-2024 Episodic Other lower respiratory disease (2 sources) Dyspnea; Translations: [Shortness of breath] Onset: 06-03-2024 05-27-2024 Episodic Other lower respiratory disease (1 source) Shortness of breath; Translations: [Shortness of breath] Onset: 06-03-2024 Episodic Other lower respiratory disease (2 sources) Other forms of dyspnea; Translations: [Dyspnea on exertion] Onset: 08-28-2024 Episodic Other nutritional; endocrine; and metabolic disorders (20 sources) Body mass index 25-29 - overweight; Translations: [Overweight] Onset: 08-22-2021 08-22-2021 Episodic Residual codes; unclassified (20 sources) History of colonoscopy; Translations: [Other specified postprocedural states] Onset: 07-28-2015 Resolved: 08-26-2023 07-28-2015 Episodic Residual codes; unclassified (6 sources) History of great vessel repair; Translations: [Other specified postprocedural states] Onset: 08-28-2024 08-28-2024 Episodic Residual codes; unclassified (2 sources) Other specified postprocedural states; Translations: [S/P aortic aneurysm repair] Onset: 05-12-2024 Episodic Residual codes; unclassified (1 source) Pain, unspecified; Translations: [Pain] Onset: 01-02-2024 Episodic Unclassified (9 sources) Onset: 05-27-2024 Resolved: 06-24-2024 05-27-2024 Unclassified (2 sources) Aneurysm of the ascending aorta, without rupture (CMS-HCC); Translations: [Aneurysm of the ascending aorta, without rupture (CMS-HCC)] Onset: 07-22-2024 Unclassified (1 source) History of aortic arch replacement 08-22-2024 Results Test Name Value Interpretation Reference Range Facility Laboratory - Hematology and Cell countsOrdered By: Berna Parsons on 01-18-2025 HbA1c (Bld) [Mass fraction] 5.8 % 4.2-6.3 [facility] Internal Medicine Office Vis [facility] 01-14-2025 Internal Medicine Office Visit [facility] [address] [place], [place] [address] OFFICE VISIT Date of Service: 01/18/25 MR#: [id number] Acct: [id number] Name: KARLA CAI Rep #: [id number] : 1950 Provider: Dr. Berna tidwell MD Age/Sex: 74/F Location: [facility] Status: Signed Intake Vital Signs 10/29/24 10:28 12/22/24 09:17 01/18/25 14:06 Height 5 ft 9 in 5 ft 9 in 5 ft 9 in Weight: 163 lb BMI 24.0 BP 120/76 Blood Pressure Location Lt brachial Position Sitting Respiration 16 Pulse 64 Pulse Source Monitor Temp 97.5 F L Temp Source Temporal Pulse Oximetry (%) 97 Oxygen Delivery Method room air Intake Visit Reasons: BRICK OFF BEARER EST CARE-WHG PATIENT Chief Complaint: establish care Rope Tier Required: No Is patient in pain?: No Allergies adhesive tape Allergy (Intermediate, Verified 01/18/25 13:45) Itching Environmental Allergies: Uncoded Allergy (Verified 01/18/25 13:45) Itching amlodipine Adverse Reaction (Severe, Verified 01/18/25 13:45) pedal edema lisinopril Adverse Reaction (Severe, Verified 01/18/25 13:45) Cough doxazosin Adverse Reaction (Unknown, Verified 01/18/25 13:45) dizzy, loopy meloxicam Adverse Reaction (Unknown, Verified 01/18/25 13:45) kidney problems Medications ???Medication ???Instructions ???Recorded ???Confirmed ???Type olopatadine 0.1 % eye drops 1 drp ophthalmic (eye) BID PRN 01/18/25 History multivitamin 1 tab PO DAILY 03/11/24 01/18/25 H istory pravastatin 20 mg tablet 20 mg PO QDAY 03/11/24 01/18/25 Hi story vit C 250 mg-vit E 90 mg-zinc 40 1 tab PO BID 03/11/24 01/18/25 His tory mg-copper 1 [id number] capsule (PreserVision AREDS-2) aspirin 81 mg tablet,delayed 81 mg PO QDAY 09/03/24 01/18/25 Hi story release (Adult Low Dose Aspirin) beta carotene 10,000 unit capsule 7,500 mcg PO QDAY 09/03/24 History loratadine 10 mg capsule (Allergy 10 mg PO QDAY PRN 09/03/24 History Relief (loratadine)) vitamin B complex-folic acid 1 tab PO DAILY 09/03/24 01/18/25 His tory mg-vit C 60 mg-biotin 300 mcg tablet apixaban 5 mg tablet 5 mg PO BID #180 tabs 09/16/2409/02 Rx metoprolol tartrate 25 mg tablet 25 mg PO BID #180 tabs 09/21/24 Rx spironolactone 25 mg tablet 25 mg PO DAILY #90 tabs 12/08/24 0 01/18/25 Rx acetaminophen 500 mg tablet 500 mg PO BID Aug 2024 01/18/25 History biotin 1,000 mcg chewable tablet 1,000 mcg PO QDAY 01/18/25 5 History fluticasone propionate 50 1 spray intranasal QDAY PRN 01/18/25 History mcg/actuation nasal spray,suspension Have you fallen in the past year?: No Nurse's Note: Dr. Keenan does not fill statin. Pt forgot hearing aids today. Has H/o breast CA. Last mammogram 07/2024 States she was dx'd as diabetic and wants to know what else she can do, is uncertain of when last a1c was and previously saw [facility]. Has toe numbness that has been ongoing. She states she had a few toes here and there but after heart surgery both feet have had a lot of numbness that goes into the heel. Pt states that she has seen a interlocking pavement installer and been told she has arthritis in the toes and surgery would be the only option. She does not want to do this. Pt states the numbness is all the time but notices it the most when she is in bed or does not have shoes on. Is concerned as she has been dx'd as diabetic. She has some feeling but not how it previously was. Pt wants to know what excercises would be safe to help assist w/ losing stomach fat that will not go. She is concerned w/ what she is able to do w/ the heart surgery and was not eligible for cardiac rehab and the heart group did not help. [facility] Medical History (Updated 01/18/25 @ 14:[address] Berna Parsons MD) Arthritis CKD (chronic kidney disease) Bilateral pleural effusion Postoperative atrial fibrillation Mitral valve insufficiency Thoracic aortic aneurysm without rupture Breast cancer Essential hypertension Hypokalemia Acute diverticulitis Surgical History (Updated 01/18/25 @ 14:[address] Berna Parsons MD) Surgical procedures, elective History of thoracentesis S/P left atrial appendage ligation History of lumpectomy of right breast History of breast reconstruction History of hysterectomy Acoustic neuroma Family History (Updated 01/18/25 @ 14:[address] Berna Parsons MD) Mother Hypertension Colon cancer Father Heart disease Cancer Prostate Hypertension Brother Diabetes Hypertension Sister Cancer Ovarian, thyroid Retina hole Sister Cancer Thyroid Breast cancer Other Hypokalemia Social History (Updated 01/18/25 @ 14:[address] 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 Normal [facility] Anion gap in Serum or Plasma Ordered By: Mendoza Boogie on 01-05-2025 Anion gap [Moles/Vol] 10 mmol/L 5-15 [facility] BUN/creatinine ratioOrdered By: Mendoza Boogie on 01-05-2025 Urea nitrogen/Creatinine [Mass ratio] 30.8 mg/mg High - [facility] Basic Metabolic Profile (BMP )on 01-05-2025 BUN/CRE 30.8 RATIO [facility] 10- [facility] Comment on above: Performed By: #### L 500.2500 #### [facility] [address] [place], [address] Calcium [Mass/Vol] 9.4 mg/dL Normal 7.6-11.0 [facility] Comment on above: Performed By: #### L 500.2500 #### [facility] [address] [place], [address] Chloride [Moles/Vol] 104 mmol/L Normal 98-108 [facility] Comment on above: Performed By: #### L 500.2500 #### [facility] [address] [place], [address] CO2 [Moles/Vol] 23.6 mmol/L Normal 21.0-32.0 [facility] Comment on above: Performed By: #### L 500.2500 #### [facility] [address] [place], [address] Creatinine [Mass/Vol] 1.00 mg/dL Normal 0.70-1.20 [facility] Comment on above: Performed By: #### L 500.2500 #### [facility] [address] [place], [address] GAP 10 Normal 5-15 [facility] Comment on above: Performed By: #### L 500.2500 #### [facility] [address] [place], [address] GFR/1.73 sq M.predicted among non-blacks MDRD (S/P/Bld) [Vol rate/Area] 59 mL/min/{1.73_m2} Low >60 [facility] Comment on above: Result Comment: mL/m in/1.73m2 CKD-EPI Creatinine Equation (2020) Performed By: #### L 500.2500 #### [facility] [address] [place], [address] Glucose [Mass/Vol] 97 mg/dL Normal 70-99 [facility] Comment on above: Performed By: #### L 500.2500 #### [facility] [address] [place], [address] Potassium [Moles/Vol] 4.5 mmol/L Normal 3.3-5.1 [facility] Comment on above: Performed By: #### L 500.2500 #### [facility] [address] [place], [address] Sodium [Moles/Vol] 138 mmol/L Normal 133-145 [facility] Comment on above: Performed By: #### L 500.2500 #### [facility] [address] [place], [address] Urea nitrogen [Mass/Vol] 31 mg/dL High 4-19 [facility] Comment on above: Performed By: #### L 500.2500 #### [facility] [address] [place], [address] Carbon dioxide, total [Moles /volume] in Central venous bloodOrdered By: Mendoza Boogie on 01-05-2025 CO2 [Moles/Vol] 23.6 mmol/L 21.0-32.0 [facility] Chloride assayOrdered By: Farzana Boogie on 01-05-2025 Chloride [Moles/Vol] 104 mmol/L 98-108 [facility] Glomerular filtration rate ( GFR) estimation/1.73 sq m using serum, plasma, or whole bOrdered By: Mendoza Boogie on 01-05-2025 GFR/1.73 sq M.predicted among non-blacks MDRD (S/P/Bld) [Vol rate/Area] 59 mL/min/{1.73_m2} Low >60 [facility] Comment on above: mL/min/1.73m2 CKD-EP I Creatinine Equation (2020) Potassium measurement (mass/ volume)Ordered By: Mendoza Boogie on 01-05-2025 Potassium (Unsp spec) [Mass/Vol] 4.5 mmol/L 3.3-5.1 [facility] Serum creatinine measurement (mass/volume)Ordered By: Mendoza Boogie on 01-05-2025 Creatinine [Mass/Vol] 1.00 mg/dL 0.70-1.20 [facility] Serum glucose measurement (m ass/volume)Ordered By: Mendoza Boogie on 01-05-2025 Glucose [Mass/Vol] 97 mg/dL 70-99 [facility] Serum or plasma calcium jillian urement (mass/volume)Ordered By: Mendoza Boogie on 01-05-2025 Calcium [Mass/Vol] 9.4 mg/dL 7.6-11.0 [facility] Serum or plasma urea nitroge n measurement (mass/volume)Ordered By: Mendoza Boogie on 01-05-2025 Urea nitrogen [Mass/Vol] 31 mg/dL High 4-19 [facility] Sodium levelOrdered By: Ten Boogie on 01-05-2025 Sodium [Moles/Vol] 138 mmol/L 133-145 [facility] Cardiology Visit Reporton Cardiology Visit Report [facility] [address] [place] [address] OFFICE VISIT Date of Service: 12/22/24 MR#: [id number] Acct: [id number] Name: KARLA CAI Rep #: [id number] : 1950 Provider: WILY Ortega Age/Sex: 74/F Location: [facility] Status: Signed HPI HPI History of Present Illness Details: Karla Cai is a 73-year-old female that presents here today for a cardiovascular follow-up with a history of an ascending aortic aneurysm, moderate mitral valve insuff and hypertension. Patient aortic aneurysm was being followed by Dr. Alberto, it was noted to be greater than 5 mm, she was referred to for aortic aneurysm replacement. On August 10, 2024 patient underwent an aortic aneurysm replacement with a Gelweave 30 mm, EDD C40 5 mm meter atrial clip. Postoperatively was complicated by new onset of left bundle branch block, atrial for with RVR, accelerated junctional rhythm, anemia requiring transfusion, respiratory failure with moderate ards requiring Airvo and a large pleural effusion with thoracentesis which had 850 cc removed. She was discharged home on amiodarone twice a day for 10 days then once a day for 20 days, apixaban, furosemide, metoprolol. Patient was in to see our office in September 2024. She did have recurrent bilateral pleural effusions. She did undergo bilateral thoracentesis 1 was done on September 22 the second was done on September 23.In November 2024 patient had a right sided pleural thoracentesis x 2. Chest x-ray today demonstrates improved pleural effusions. She does feel better. She has been able to walk. She does feel her SOB has improved. At night she does sometimes note that she walks up with an irregular heart beat. Her watch has not indicated any Afib. She does sometimes have lightheadedness, this is with positional changes. Unfortunately cardiac rehab was not covered. Intake Vital Signs 10/29/24 10:28 12/22/24 09:17 Height 5 ft 9 in 5 ft 9 in Weight: 160 lb BMI 23.6 BP 123/76 H Blood Pressure Location Lt brachial Position Sitting Respiration 16 Pulse 68 Pulse Source NIBP Intake Visit Reasons: 2 M FU PER MMM Rope Tier Required: No Is patient in pain?: No Allergies adhesive tape Allergy (Intermediate, Verified 12/22/24 09:30) Itching Environmental Allergies: Uncoded Allergy (Verified 12/22/24 09:30) Itching amlodipine Adverse Reaction (Severe, Verified 12/22/24 09:30) pedal edema lisinopril Adverse Reaction (Severe, Verified 12/22/24 09:30) Cough doxazosin Adverse Reaction (Unknown, Verified 12/22/24 09:30) dizzy, loopy meloxicam Adverse Reaction (Unknown, Verified 12/22/24 09:30) kidney problems Medications ???Medication ???Instructions ???Recorded ???Confirmed ???Type olopatadine 0.1 % eye drops 1 drp ophthalmic (eye) BID PRN 12/22/24 History multivitamin 1 tab PO DAILY 03/11/24 12/22/24 H istory pravastatin 20 mg tablet 20 mg PO QDAY 03/11/24 12/22/24 Hi story vit C 250 mg-vit E 90 mg-zinc 40 1 tab PO BID 03/11/24 12/22/24 His tory mg-copper 1 jz-zaphti-rfuwiq capsule (PreserVision AREDS-2) aspirin 81 mg tablet,delayed 81 mg PO QDAY 09/03/24 12/22/24 Hi story release (Adult Low Dose Aspirin) beta carotene 10,000 unit capsule 7,500 mcg PO QDAY 09/03/24 History fluticasone propionate 50 1 spray intranasal QDAY 09/03/24 0 12/22/24 History mcg/actuation nasal spray,suspension loratadine 10 mg capsule (Allergy 10 mg PO QDAY PRN 09/03/24 History Relief (loratadine)) oxycodone 5 mg capsule 5 mg PO BID PRN 09/03/24 12/22/24 History vitamin B complex-folic acid 1 tab PO DAILY 09/03/24 12/22/24 His tory mg-vit C 60 mg-biotin 300 mcg tablet apixaban 5 mg tablet 5 mg PO BID #180 tabs 09/16/24 Rx metoprolol tartrate 25 mg tablet 25 mg PO BID #180 tabs 09/21/24 Rx spironolactone 25 mg tablet 25 mg PO DAILY #90 tabs 12/08/24 0 12/22/24 Rx furosemide 20 mg tablet 20 mg PO QAM #90 tabs 12/22/24 Rx potassium chloride 20 mEq 20 meq PO QDAY 12/22/24 12/22/24 H istory tablet,extended release(part/cryst) Ejection fraction %: 60 Have you fallen in the past year?: No PFSH Medical History Bilateral pleural effusion Postoperative atrial fibrillation Mitral valve insufficiency Thoracic aortic aneurysm without rupture Breast cancer Essential hypertension Hypokalemia Acute diverticulitis Surgical History (Updated 12/22/24 @ 09:33 by Mile Nolt) History of thoracentesis S/P left atrial appendage ligation History of lumpectomy of right breast History of breast reconstruction History of hysterectomy Acoustic neuroma Family History (more content not included)... Normal [facility] Chest PA and Lateralon 12-21 Chest PA and Lateral [facility] Services [address] [place], [place] [address] Chest PA and Lateral MR#: [id number] Acct: [id number] Name: KARLA CAI Rep #: [id number] : 1950 F 74 From: Hung Campbell MD PCP: Dr. Jae Belcher MD Status: REG CLI Study: Chest PA and Lateral Date of Exam: 12/21/24 Exam# [id number] Ordering Dr: Mendoza Boogie PA PROCEDURE: CHEST PA AND LATERAL 12/21/2024 REASON FOR EXAM: RECURRENT PLEURAL EFFUSIONS TECHNIQUE: Frontal and lateral views of the chest. COMPARISON: 11/16/2024 and 11/12/2024 FINDINGS: Fairly small right pleural effusion. Very small left pleural effusion versus pleural thickening. Platelike area of left base atelectasis or scar. The lungs otherwise appear clear. Pulmonary vascularity appears within limits. Status post median sternotomy with left atrial appendage closure device and epicardial pacing wires again noted. Atherosclerotic changes again seen at the aortic arch. There is again suggestion of possible enlargement of the main pulmonary artery seen on the frontal view, unchanged. RAD/Chest PA and Lateral IMPRESSION: Fairly small right pleural effusion. Very small left pleural effusion versus pleural thickening. Platelike area of left base atelectasis or scar. The lungs otherwise appear clear. Reading Location: [id number] CC: Dr. Jae Belcher MD; WILY Hernandez Biscuit Packer: Signed Normal [facility] Chest Insp/Exp 2 Viewon 11-07 Chest Insp/Exp 2 View [facility] [address] [place] [address] Chest Insp/Exp 2 View MR#: [id number] Acct: [id number] Name: KARLA CAI Rep #: [id number] : 1950 F 73 From: Tan lechuga MD PCP: Dr. Jae Belcher MD Status: [facility] Study: Chest Insp/Exp 2 View Date of Exam: 11/16/24 Exam# [id number] Ordering Dr: Tan Willis PROCEDURE: CHEST INSP/EXP 2 VIEW REASON FOR EXAM: Status post right thoracentesis. TECHNIQUE: Inspiration expiration views were obtained following the thoracentesis. COMPARISON: Comparison is made with prior study dated November 12, 2024. FINDINGS: No evidence of pneumothorax in the immediate post right thoracentesis. Residual pleural-parenchymal changes at the left lung base. RAD/Chest Insp/Exp 2 View IMPRESSION: Status post right thoracentesis. There is no evidence of pneumothorax. Residual left pleural-parenchymal changes. Reading Location: [facility] CC: Dr. Tan Willis MD; Dr. Jae Belcher MD Biscuit Packer: Signed Normal [facility] Thoracentesis W USon 025 Thoracentesis W [facility] Services [address] [place], [place] [id number] Thoracentesis W US MR#: [id number] Acct: [id number] Name: KARLA CAI Rep #: [id number] : 1950 F 73 From: Tan lechuga MD PCP: Dr. Jae Belcher MD Status: REG CLI Study: Thoracentesis W US Date of Exam: 11/16/24 Exam# [id number] Ordering Dr: Mendoza Boogie PROCEDURE: THORACENTESIS W US REASON FOR EXAM: Right pleural effusion. TECHNIQUE: The procedure as well as benzoin possible complications including infection bleeding and pneumothorax were explained to the patient. Informed consent was obtained. The overlying skin was prepped and draped in the usual sterile fashion. Following local anesthetic application, puncture of the right pleural space was performed with a 5 Belgian catheter. 650 mL of blood-tinged fluid was aspirated. The patient tolerated the procedure well. COMPARISON: None. FINDINGS: Right pleural effusion. US/Thoracentesis W US IMPRESSION: Successful right thoracentesis without immediate complication. The patient tolerated the procedure well. Reading Location: [facility] CC: Dr. Jae Belcher MD; WILY Hernandez Biscuit Packer: Signed Normal [facility] Chest Insp/Exp 2 Viewon 03 Chest Insp/Exp 2 View [facility] Imaging Services [address] [place] [address] Chest Insp/Exp 2 View MR#: [id number] Acct: [id number] Name: KARLA CAI Rep #: [id number] : 1950 F 73 From: Roman Diana MD PCP: Dr. Jae Belcher MD Status: REG CLI Study: Chest Insp/Exp 2 View Date of Exam: 11/12/24 Exam# [id number] Ordering Dr: Lisbeth Garvey BRICK OFF BEARER-C PROCEDURE: CHEST INSP/EXP 2 VIEW REASON FOR EXAM: Post right thoracentesis. TECHNIQUE: Frontal and lateral views of the chest. COMPARISON: 11/09/2024 chest. FINDINGS: The heart size is normal. The mediastinal contour is unremarkable. The lungs are clear. No pneumothorax following right thoracentesis. Decrease in the right pleural fluid. Left pleural effusion is again noted. Median sternotomy wires. RAD/Chest Insp/Exp 2 View IMPRESSION: No evidence of pneumothorax following right thoracentesis. Decrease in the right pleural effusion. Left pleural effusion. Reading Location: [facility] CC: BRICK OFF BEARERLavinia Garvey; Dr. Jae Belcher MD Biscuit Packer: Signed Normal [facility] Operative Reporton Operative Report [facility] Medical Records Department [address] [place] [address] Operative Report 11/12/24 1254 MR#: [id number] Acct: [id number] Name: KARLA CAI Rep #: [id number] : 1950 73 From: Lisbeth GONZALES PCP: Dr. Jae Belcher MD Status:REG CLI Location: US Problems Associated Problem List Diagnoses (1) Bilateral pleural effusion: Multi Select Codes Radiology Radiology US Procedures: 84070 Thoracentesis Operative Report (Standard) Operative Information Date of Procedure: 11/12/24 Pre-Operative Diagnosis: Bilateral pleural effusion Post-Operative Diagnosis: Bilateral pleural effusion Surgery/Procedure Performed: Ultrasound-guided thoracentesis manager strategic alliances: No Type of Anesthesia: Local Procedure Start Time: 12:16 Procedure Stop Time: 12:35 Select all DRAINS/GRAFTS/IMPLANTS that apply: None Estimated Blood Loss: 0 Specimen collected: No Description of surgery: PROCEDURE: Ultrasound Guided Thoracentesis ORDERING PROVIDER: WILY Vazquez INDICATION: Female, 73 years old. Bilateral pleural effusion. PROVIDER: JESSE Parra PROCEDURE: The risks, benefits, and alternatives to the procedure were explained to the patient. The specific risks of bleeding, infection, and pneumothorax requiring chest tube insertion were discussed and accepted. Written informed consent was obtained. The patient was placed in the sitting, upright position. Ultrasonographic evaluation of the bilateral lower pleural spaces was carried out. Both the left and the right lower pleural spaces had an adequate amount of fluid to drain. The right pocket appeared to be slightly larger than the left; therefore, I proceeded with drainage of the right side today and will defer the left side for 24 hours. The patient does not appear symptomatic at this time and this is the safest approach. An adequate pocket was identified in the right lower pleural space. The overlying skin was prepped with chlorhexidine and draped in sterile fashion. 2 % lidocaine was administered subcutaneously for local anesthesia. Under ultrasound guidance, a 5- Belgian thoracentesis needle/catheter system was advanced into the right posterior lower pleural fluid collection. 1050 ml of clear red-tinged colored fluid was drained. The catheter was removed, and a sterile dressing was applied. The patient tolerated the procedure well. A chest x-ray was ordered. There was no evidence of pneumothorax. IMPRESSION: Successful ultrasound guided thoracentesis of right pleural effusion. Surgical Findings: None Complications Complications: No 11/12/24 1320 Cosigner Signature (if applicable): CC: CHRISTIAN Garvey; Dr. Jae Belcher MD; WILY Hernandez Signed Normal [facility] BUN/creatinine ratioOrdered By: Mendoza Boogie on 11-09-2024 Urea nitrogen/Creatinine [Mass ratio] 27.6 mg/mg [address] Basic Metabolic Profile (BMP )on 11-09-2024 Anion gap [Moles/Vol] 14 mmol/L Normal 01-21 [facility] Comment on above: Performed By: #### L 500.2500 ####[facility] [id number] [place], [address] BUN/CRE 27.6 RATIO [address] [place] [address] Comment on above: Performed By: #### L 500.2500 ####[facility] [address] [place], [address] Calcium [Mass/Vol] 9.9 mg/dL Normal 7.6-11.0 [facility] Comment on above: Performed By: #### L 500.2500 ####[facility] [address] [place], [address] Chloride [Moles/Vol] 105 mmol/L Normal 96-108 [facility] Comment on above: Performed By: #### L 500.2500 ####[facility] [address] [place], [address] CO2 [Moles/Vol] 20.7 mmol/L Low 22.0-29.0 [facility] Comment on above: Performed By: #### L 500.2500 ####[facility] [address] [place], [address] Creatinine [Mass/Vol] 0.91 mg/dL Normal 0.70-1.20 [facility] Comment on above: Performed By: #### L 500.2500 ####[facility] [address] [place], [address] GFR/1.73 sq M.predicted among non-blacks MDRD (S/P/Bld) [Vol rate/Area] 66 mL/min/{1.73_m2} Normal >60 [facility] Comment on above: Result Comment: mL/m in/1.73m2 CKD-EPI Creatinine Equation (2020) Performed By: #### L 500.2500 ####[facility] [address] [place], [address] Glucose [Mass/Vol] 119 mg/dL High 70-99 [facility] Comment on above: Performed By: #### L 500.2500 ####[facility] [address] [place], [address] Potassium [Moles/Vol] 4.1 mmol/L Normal 3.3-5.1 [facility] Comment on above: Performed By: #### L 500.2500 ####[facility] [address] [place], [place], [address] Sodium [Moles/Vol] 140 mmol/L Normal 133-145 [facility] Comment on above: Performed By: #### L 500.2500 ####[facility] [address] [place], [place], [address] Urea nitrogen [Mass/Vol] 25 mg/dL High 4-19 [facility] Comment on above: Performed By: #### L 500.2500 ####[facility] [address] [place], [place], [address] Carbon dioxide measurementOr dered By: Mendoza Boogie on 11-09-2024 CO2 [Moles/Vol] 20.7 mmol/L Low 22.0-29.0 [facility] Chest PA and Lateralon 11-09 Chest PA and Lateral [facility] Services [address] [place], [place] [address] Chest PA and Lateral MR#: [id number] Acct: [id number] Name: KARLA CAI Rep #: [id number] : 1950 F 73 From: Ricky Queen MD PCP: Dr. Jae Belcher MD Status: REG CLI Study: Chest PA and Lateral Date of Exam: 11/09/24 Exam# [id number] Ordering Dr: Mendoza Boogie PA EXAM: XR Chest, 2 Views CLINICAL INDICATION: TECHNIQUE: Frontal and lateral views of the chest. COMPARISON: No relevant prior studies available. FINDINGS: LUNGS AND PLEURAL SPACES: Right middle lobe and lingula atelectasis or pneumonia. Bilateral pleural effusions. No pneumothorax. HEART: Unremarkable. No cardiomegaly. MEDIASTINUM: Unremarkable. Normal mediastinal contour. BONES/JOINTS: Unremarkable. No acute fracture. RAD/Chest PA and Lateral IMPRESSION: 1. Right middle lobe and lingula atelectasis or pneumonia. 2. Bilateral pleural effusions. Reading Location: [facility] CC: Dr. Jae Belcher MD; WILY Hernandez Biscuit Packer: Signed Normal [facility] Chloride measurementOrdered By: Mendoza Boogie on 11-09-2024 Chloride [Moles/Vol] 105 mmol/L 96-108 [facility] GFR/1.73 sq M.predicted maribel g non-blacks MDRD (S/P/Bld) [Vol rate/Area]Ordered By: Mendoza Boogie on 11-09-2024 Estimated GFR (MDRD) Non-Af Amer 66 >60 [facility] Comment on above: mL/min/1.73m2 CKD-EP I Creatinine Equation (2020) Glomerular filtration rate ( GFR) estimation/1.73 sq m using serum, plasma, or whole bOrdered By: Mendoza Boogie on 11-09-2024 GFR/1.73 sq M.predicted among non-blacks MDRD (S/P/Bld) [Vol rate/Area] 66 mL/min/{1.73_m2} >60 [facility] Comment on above: mL/min/1.73m2 CKD-EP I Creatinine Equation (2020) Serum creatinine measurement (mass/volume)Ordered By: Mendoza Boogie on 11-09-2024 Creatinine [Mass/Vol] 0.91 mg/dL 0.70-1.20 [facility] Serum glucose measurement (m ass/volume)Ordered By: Mendoza Boogie on 11-09-2024 Glucose [Mass/Vol] 119 mg/dL High 70-99 [facility] Serum or plasma anion gap de termination (moles/volume)Ordered By: Mendoza Boogie on 11-09-2024 Anion gap [Moles/Vol] 14 mmol/L 5-15 [facility] Serum or plasma calcium jillian urement (mass/volume)Ordered By: Mendoza Boogie on 11-09-2024 Calcium [Mass/Vol] 9.9 mg/dL 7.6-11.0 [facility] Serum or plasma potassium me asurementOrdered By: Mendoza Boogie on 11-09-2024 Potassium [Moles/Vol] 4.1 mmol/L 3.3-5.1 [facility] Serum or plasma sodium measu rement (moles/volume)Ordered By: Mendoza Boogie on 11-09-2024 Sodium [Moles/Vol] 140 mmol/L 133-145 [facility] Serum or plasma urea nitroge n measurement (mass/volume)Ordered By: Mendoza Boogie on 11-09-2024 Urea nitrogen [Mass/Vol] 25 mg/dL High 4-19 [facility] Cardiac rehabilitation evalu ation reportOrdered By: Ari De Los Santos on 11-03-2024 Study report [facility] Cardiac Rehab [address] [place] [address] CR - History & Physical MR#: [id number] Acct: [id number] Name: KARLA CAI Rep #:[id number] : 1950 73 From: Ari Moscoso BS, RVT PCP: Dr. Jae Belcher MD DOS: CR - History & Physical General Arrival date:: 11/02/24 Arrival time:: 13:59 Date of Referral:: 10/29/24 Date of CR Evaluation:: 11/02/24 Referring Physician: Dr. Keenan Primary Diagnosis: Heart valve replacement History of Present Cardiac Event Onset Date Heart valve replacement or repair:: Yes (onset 08/10/2024) Medications Ambulatory Orders ?Medication ?Instructions ?Recorded olopatadine 0.1 % eye drops 1 drp ophthalmic (eye) BID PRN 04/30/19 multivitamin 1 tab PO DAILY 03/11/24 pravastatin 20 mg tablet 20 mg PO QDAY 03/11/24 vit C 250 mg-vit E 90 mg-zinc 40 1 tab PO BID 03/11/24 mg-copper 1 tj-zvqqal-pxzszx capsule (PreserVision AREDS-2) aspirin 81 mg tablet,delayed 81 mg PO QDAY 09/03/24 release (Adult Low Dose Aspirin) beta carotene 10,000 unit capsule 7,500 mcg PO QDAY fluticasone propionate 50 1 spray intranasal QDAY 08/10 03/02 mcg/actuation nasal spray,suspension loratadine 10 mg capsule (Allergy 10 mg PO QDAY PRN Relief (loratadine)) oxycodone 5 mg capsule 5 mg PO BID PRN 09/03/24 spironolactone 25 mg tablet 25 mg PO DAILY #30 tabs vitamin B complex-folic acid 1 tab PO DAILY 09/03/24 mg-vit C 60 mg-biotin 300 mcg tablet apixaban 5 mg tablet 5 mg PO BID #180 tabs metoprolol tartrate 25 mg tablet 25 mg PO BID #180 tab s 09/21/24 Allergies Allergies adhesive tape Allergy (Intermediate, Verified 10/29/24 10:28) Itching Environmental Allergies: Uncoded Allergy (Verified 10/29/24 10:28) Itching amlodipine Adverse Reaction (Severe, Verified 10/29/24 10:28) pedal edema lisinopril Adverse Reaction (Severe, Verified 10/29/24 10:28) Cough doxazosin Adverse Reaction (Unknown, Verified 10/29/24 10:28) dizzy, loopy meloxicam Adverse Reaction (Unknown, Verified 10/29/24 10:28) kidney problems Sleep Disorder Evaluation Hx of Sleep Apnea: No Do you snore loudly (louder than talking or can be heard through closed doors)?:No Do you often feel tired/ fatigued/ sleepy during daytime?: No Has anyone observed you stop breathing during sleep?: No History of Hypertension (for STOP score): Yes STOP Results: Negative Advanced Directives Advanced Directives Power of Client Success Manager: Yes Living Will: Yes Advance Directives Information Provided: Yes Advance Directives on File: No DNR Order?:: No Past Medical History Covid-19 Screening Physicial Symptoms Other Clinical Concerns Exposure Risk Pertinent Comorbidities 65 years or older:: Yes Has a serious heart condition:: Yes Past Medical Illness Medical History Bilateral pleural effusion Postoperative atrial fibrillation Mitral valve insufficiency Thoracic aortic aneurysm without rupture Breast cancer Essential hypertension Hypokalemia Acute diverticulitis Past Surgical History Surgical History S/P left atrial appendage ligation History of lumpectomy of right breast History of breast reconstruction History of hysterectomy Acoustic neuroma Surgical History: hysterectomy and - (s/p left breast lumpectomy, s/p acoustic neuroma excision) Family History Summary Family History Mother Hypertension Colon cancer Father Heart disease Cancer Prostate Hypertension Brother Diabetes Hypertension Sister Cancer Ovarian, thyroid Sister Cancer Thyroid Other Hypokalemia Social History Smoking History Smoking Status: Never smoker Alcohol Use Alcohol Usage: Yes (occas) Substance Abuse Hx Substance Use: No Occupation Occupation (List type of work in comments):: Retired Social Environment Status Marital Status: Current Living Arrangements Living Environment:: Spouse Children How many children do you have?: 3 Safety Do you feel safe in your surroundings?: Yes Assistance Do you need any assistance at home?: no Review of Systems Review of Systems Hints Review of Present Symptoms: Reports Shortness of Breath with Exertion, Dizziness/Lightheadedn ess, Fatigue, Appetite - Normal, Appetite - Special Diet and Sleep - Normal; Denies Shortness of Breath at Rest, PVD, Operative Discomfort, Angina, Wound Healing, Heart Arrhythmia/Irregularit ies or Sexual Changes Pain Is Patient Pain Free?: Yes Risk Factor Assessment Chief Complaint Chief Complaint: Heart valve replacement Vital Signs Pulse Ox: 92 Blood Pressure: 111/71 Pulse Pulse Rate: 74 Hypertension Blood Pressure Sitting - Right Arm: 111/71 Obesity Height: 5 ft 9 in Weight:: 157 lb Weight in Pounds: 157.0 lbs Body Mass Index (BMI): 23.1 Nutritional Referral for Obesity: No Physical Inactivity Physical Inactivity: Reg Exercise 30 min/day Risk Stratification Risk Guidelines: Lo (more content not included)... [facility] No Panel InformationOrdered By: Ari De Los Santos on 11-03-2024 [facility] Cardiac Rehab [address] [place] [address] CR - Individual Treatment Plan MR#: [id number] Acct: [id number] Name: KARLA CAI Rep #:[id number] : 1950 73 From: Ari Moscoso BS, RVT PCP: Dr. Jae Belcher MD DOS: Diagnosis General Information Admitting Diagnosis: Heart valve replacement Personal Learning Style:: Audio/Visual Barriers to Learning: No Barriers Stage of change r/t lifestyle modifications:: Contemplation Gave educational material for:: Treating Heart Disease, How The Heart Works, What it means to have Heart Disease, How Coronary Artery Disease is Diagnosed, Heart Procedures, What Heart Medications Do, Risk Factors & Modifications, Living an Active Life, Nutrition, Emotions & Heart Disease, Stress Management & Relaxation and Sleep Disorders & Heart Disease Education/Goals Cardiac Rehabilitation Goals Personal Goals: Initial Assessment: Improve management of stress and emotions, Improve energy level, Participate in home exercise program, Get back to work, orto resume activities faster, Improve knowledge of cardiac disease, Improve muscle strength and endurance, Improve diet and eating habits (eat healthier) and Control risk factors (learn risk factor modification) Scale for measuring improvement of personal goals Diagnosis & Disease Process Outcomes/Goals: Pt IDs own risk factors & lifestyle modifications by Session 10,Verbalizes symptoms of angina & response by session 3., Pt independently managesand Other Additional Outcomes/Goals: Plan/Interventions: Assist Pt to ID & engage in lifestyle modification to reduceCVD risk, Instruct on individual risk factors, Review symptoms of angina & emergency actions, Review secondary diagnosis & identify educational needs. and Other see comment 30 day Reassessments:: Not Met 30 day Reassessments:: Not Met 30 day Reassessments:: Not Met 30 day Reassessments:: Not Met Final Reassessments:: Not Met Safety Referral to Physical Therapy: No Referral to [facility] Case Management: No Fall Risk Assessed:: Yes Assistive Devices:: None Exercise - Initial Assessment Visit Date of Eval: 11/02/24 (initial eval ) Mets: Pre-: >3 METS for 30 minutes by discharge, >5 METS for 30 minutes by discharge, >7 METS for 30 minutes by discharge and Unable to meet goal due to: (see comment below) Physician Prescribed Exercise Modalities: Treadmill, Schwinn Airdyne AD-7, SciFit Stepper, DashBurstFit Pro-II Ergometer and DashBurstFit Lateral [place] Frequency: 3x/week for 12 weeks [36 sessions] Intensity: 60-80% of age predicted maximum heart rate reserve Duration: 30 - 45 minutes Current METSs:: 3.0 Target Heart Rate:: 88-110 Resting Blood Pressure: 111/71 EKG Type: A-fib with RVR with premanture ventricular or abberantly conducted complexe Outcomes & Goals Goals:: Verbalizes understanding of THR, RPE & goal METS by session 6, Documentsin home exercise log/reports 30 min aerobic 5 day/wk by DC, Demonstrates accurate pulse taking by DC and Other additional outcome/goals: see below Intervention & Plan Exercise Program Goals: Instruct on personal THR & RPE, Instruct on MET level & personal MET goal, Show patient to take own pulse /validate performance until accurate and Instruct on home exercise Physical Activity Home Exercise Physical Activity - Home Exercise: Safe Exercise, Warm-up, Self-monitoring, Cool-Down, Home Exercise > 30 min Daily and Sitting Time <3 hours/daily Outcomes & Goals Outcomes/Goals: Demonstrates correct Warm-up/exercise Cool-Down (S3) if = 2.5 METs, Verbalizes symptoms of exercise intolerance by Session 3 (S3) and Demonstrate safe equipment use (S3) & follows exercise prescrition (6) Intervention & Plan Plan/Intervention: Instruct warm-up & cool-down if exercising at > 2 METs, Instruct on symptoms of exercise intolerance & actions to take, Instruct & monitor on saf and Assess intial functional capacity & safety risk Nutrition - Initial Assessment Program Goals Nutrition Program Goals Patient has diagnosis of Hyperlipidemia (ICD E78)?: No Visit Date of Eval: 11/02/24 (initial eval ) Cholesterol/Lipids (Other Core Measures) Determine presence & major risk factors that modify LDL goal: Hypertension or hypertensive medication, Low HDL cholesterol <40 mg/dL*, Family history of premature CHD in Male < 55 years: female <65 yearsFa and Age men > 45 years; women >/= 55 years Outcomes/Goals: Pt IDs own risk factors & lifestyle modifications by Session 10,Verbalizes symptoms of angina & response by session 3., Pt independently managesand Other Additional Outcomes/Goals: Intervention/Plan: Advocate for lipid panel cholesterol medication if applicable, Instruct on personal lipid levels & lipid goals/NCEP guidelines, Instruct on cholesterol and Other additional plan/int Referral to dietitian:: Yes Diabetes (Other Core Measures) Diabetes Type: Not Applicable Weight Mgt (Other Care) Height: 5 ft 9 in Weight:: 157 lb BMI: 23.1 Diagnosis Overweight/Obesity BMI> 30% ICD-10 E66: No Diagnosis High BMI/Morbid Obesity BMI> (more content not included)... [facility] CR - History AND Physicalon 11-02-2024 CR - History & Physical [facility] Cardiac Rehab [address] [place] [address] CR - History Physical MR#: [id number] Acct: [id number] Name: KARLA CAI Rep #: [id number] : 1950 73 From: Ari Moscoso BS, RVT PCP: Dr. Jae Belcher MD DOS: 11/02/24 CR - History Physical General Arrival date:: 11/02/24 Arrival time:: 13:59 Date of Referral:: 10/29/24 Date of CR Evaluation:: 11/02/24 Referring Physician: Dr. Keenan Primary Diagnosis: Heart valve replacement History of Present Cardiac Event Onset Date Heart valve replacement or repair:: Yes (onset 08/10/2024) Medications Ambulatory Orders ???Medication ???Instructions ???Recorded olopatadine 0.1 % eye drops 1 drp ophthalmic (eye) BID PRN multivitamin 1 tab PO DAILY 03/11/24 pravastatin 20 mg tablet 20 mg PO QDAY 03/11/24 vit C 250 mg-vit E 90 mg-zinc 40 1 tab PO BID 03/11/24 mg-copper 1 [id number]-[id number] capsule (PreserVision AREDS-2) aspirin 81 mg tablet,delayed 81 mg PO QDAY 09/03/24 release (Adult Low Dose Aspirin) beta carotene 10,000 unit capsule 7,500 mcg PO QDAY 09/03/24 fluticasone propionate 50 1 spray intranasal QDAY 09/03/24 mcg/actuation nasal spray,suspension loratadine 10 mg capsule (Allergy 10 mg PO QDAY PRN 09/03/24 Relief (loratadine)) oxycodone 5 mg capsule 5 mg PO BID PRN 09/03/24 spironolactone 25 mg tablet 25 mg PO DAILY #30 tabs 09/03/24 vitamin B complex-folic acid 1 tab PO DAILY 09/03/24 mg-vit C 60 mg-biotin 300 mcg tablet apixaban 5 mg tablet 5 mg PO BID #180 tabs 09/16/24 metoprolol tartrate 25 mg tablet 25 mg PO BID #180 tabs 09/21/24 Allergies Allergies adhesive tape Allergy (Intermediate, Verified 10/29/24 10:28) Itching Environmental Allergies: Uncoded Allergy (Verified 10/29/24 10:28) Itching amlodipine Adverse Reaction (Severe, Verified 10/29/24 10:28) pedal edema lisinopril Adverse Reaction (Severe, Verified 10/29/24 10:28) Cough doxazosin Adverse Reaction (Unknown, Verified 10/29/24 10:28) dizzy, loopy meloxicam Adverse Reaction (Unknown, Verified 10/29/24 10:28) kidney problems Sleep Disorder Evaluation Hx of Sleep Apnea: No Do you snore loudly (louder than talking or can be heard through closed doors)?: No Do you often feel tired/ fatigued/ sleepy during daytime?: No Has anyone observed you stop breathing during sleep?: No History of Hypertension (for STOP score): Yes STOP Results: Negative Advanced Directives Advanced Directives Power of Client Success Manager: Yes Living Will: Yes Advance Directives Information Provided: Yes Advance Directives on File: No DNR Order?:: No Past Medical History Covid-19 Screening Physicial Symptoms Other Clinical Concerns Exposure Risk Pertinent Comorbidities 65 years or older:: Yes Has a serious heart condition:: Yes Past Medical Illness Medical History Bilateral pleural effusion Postoperative atrial fibrillation Mitral valve insufficiency Thoracic aortic aneurysm without rupture Breast cancer Essential hypertension Hypokalemia Acute diverticulitis Past Surgical History Surgical History S/P left atrial appendage ligation History of lumpectomy of right breast History of breast reconstruction History of hysterectomy Acoustic neuroma Surgical History: hysterectomy and - (s/p left breast lumpectomy, s/p acoustic neuroma excision) Family History Summary Family History Mother Hypertension Colon cancer Father Heart disease Cancer Prostate Hypertension Brother Diabetes Hypertension Sister Cancer Ovarian, thyroid Sister Cancer Thyroid Other Hypokalemia Social History Smoking History Smoking Status: Never smoker Alcohol Use Alcohol Usage: Yes (occas) Substance Abuse Hx Substance Use: No Occupation Occupation (List type of work in comments):: Retired Social Environment Status Marital Status: Current Living Arrangements Living Environment:: Spouse Children How many children do you have?: 3 Safety Do you feel safe in your surroundings?: Yes Assistance Do you need any assistance at home?: no Review of Systems Review of Systems Hints Review of Present Symptoms: Reports Shortness of Breath with Exertion, Dizziness/Lightheadedn ess, Fatigue, Appetite - Normal, Appetite - Special Diet and Sleep - Normal; Denies Shortness of Breath at Rest, PVD, Operative Discomfort, Angina, Wound Healing, Heart Arrhythmia/Irregularit ies or Sexual Changes Pain Is Patient Pain Free?: Yes Risk Factor Assessment Chief Complaint Chief Complaint: Heart valve replacement Vital Signs Pulse Ox: 92 Blood Pressure: 111/71 Pulse Pulse Rate: 74 Hyper (more content not included)... Normal [facility] 12 Lead EKG performed by [facility] on 10-29-2024 12 Lead EKG performed by [address] [address] 12 Lead EKG performed by [facility] 10/29/24 1027 MR#: [id number] Acct: [id number] Name: KARLA CAI Rep #: [id number] : 1950 73 From: Mendoza Christie Attending Dr: WILY Hernandez Status: DEP AMB Ordering Dr: Mendoza Boogie Date: 10/11 Location: [facility] Sex: F C Admitted: BMS/12 Lead EKG performed by [facility] ECG Report Interpretation ----Sinus Rhythm -Left atrial enlargement. -Anterior infarct -age undetermined. ABNORMAL Electronically signed on 10/30/2024 at 12:00 by Tulio Keenan Software Version [id number] 10/30/24 1205 Date Mendoza JULIEN CC: Dr. Jae Belcher MD Date Dictated: 10/29/24 1027 Date Transcribed: 10/29/241026 Biscuit Packer: GO Signed Normal [facility] Cardiology Visit Reporton Cardiology Visit Report [facility] [address] [place] [address] OFFICE VISIT Date of Service: 10/29/24 MR#: [id number] Acct: [id number] Name: KARLA CAI Rep #: [id number] : 1950 Provider: WILY Ortega Age/Sex: 73/F Location: [facility] Status: Signed HPI HPI History of Present Illness Details: Karla Cai is a 73-year-old female that presents here today for a cardiovascular follow-up with a history of an ascending aortic aneurysm, moderate mitral valve insuff and hypertension. Patient aortic aneurysm was being followed by Dr. Alberto, it was noted to be greater than 5 mm, she was referred to for aortic aneurysm replacement. On August 10, 2024 patient underwent an aortic aneurysm replacement with a Gelweave 30 mm, EDD C40 5 mm meter atrial clip. Postoperatively was complicated by new onset of left bundle branch block, atrial for with RVR, accelerated junctional rhythm, anemia requiring transfusion, respiratory failure with moderate ards requiring Airvo and a large pleural effusion with thoracentesis which had 850 cc removed. She was discharged home on amiodarone twice a day for 10 days then once a day for 20 days, apixaban, furosemide, metoprolol. Patient was in to see our office in September 2024. She did have recurrent bilateral pleural effusions. She did undergo bilateral thoracentesis 1 was done on September 22 the second was done on September 23. She was at the surgeon 10/07/24, she was released from there. She is feeling much better. She does not have any chest pain. She feels her shortness of breath and cough has improved. She would like to stop her diuretics if possible. She does question how much protein she should have based on her renal function. She is also interested in cardiac rehab. Intake Vital Signs 09/16/24 10:29 10/29/24 10:28 Height 5 ft 9 in 5 ft 9 in Weight: 157 lb BMI 23.1 BP 111/71 Blood Pressure Location Lt brachial Position Sitting Respiration 18 Pulse 74 Pulse Source Monitor Pulse Oximetry (%) 92 Intake Visit Reasons: 1 M FU OK PER MMM Rope Tier Required: No Is patient in pain?: No Allergies adhesive tape Allergy (Intermediate, Verified 10/29/24 10:28) Itching Environmental Allergies: Uncoded Allergy (Verified 10/29/24 10:28) Itching amlodipine Adverse Reaction (Severe, Verified 10/29/24 10:28) pedal edema lisinopril Adverse Reaction (Severe, Verified 10/29/24 10:28) Cough doxazosin Adverse Reaction (Unknown, Verified 10/29/24 10:28) dizzy, loopy meloxicam Adverse Reaction (Unknown, Verified 10/29/24 10:28) kidney problems Medications ???Medication ???Instructions ???Recorded ???Confirmed ???Type olopatadine 0.1 % eye drops 1 drp ophthalmic (eye) BID PRN 10/29/24 History multivitamin 1 tab PO DAILY 03/11/24 10/29/24 H istory pravastatin 20 mg tablet 20 mg PO QDAY 03/11/24 10/29/24 Hi story vit C 250 mg-vit E 90 mg-zinc 40 1 tab PO BID 03/11/24 10/29/24 His tory mg-copper 1 im-euyylm-qkxjgz capsule (PreserVision AREDS-2) aspirin 81 mg tablet,delayed 81 mg PO QDAY 09/03/24 10/29/24 Hi story release (Adult Low Dose Aspirin) beta carotene 10,000 unit capsule 7,500 mcg PO QDAY 09/03/24 History fluticasone propionate 50 1 spray intranasal QDAY 09/03/24 0 10/29/24 History mcg/actuation nasal spray,suspension loratadine 10 mg capsule (Allergy 10 mg PO QDAY PRN 09/03/24 History Relief (loratadine)) oxycodone 5 mg capsule 5 mg PO BID PRN 09/03/24 10/29/24 History spironolactone 25 mg tablet 25 mg PO DAILY #30 tabs 09/03/24 0 10/29/24 Rx vitamin B complex-folic acid 1 tab PO DAILY 09/03/24 10/29/24 His tory mg-vit C 60 mg-biotin 300 mcg tablet apixaban 5 mg tablet 5 mg PO BID #180 tabs 09/16/24 Rx metoprolol tartrate 25 mg tablet 25 mg PO BID #180 tabs 09/21/24 Rx Have you fallen in the past year?: No PFSH Medical History Bilateral pleural effusion Postoperative atrial fibrillation Mitral valve insufficiency Thoracic aortic aneurysm without rupture Breast cancer Essential hypertension Hypokalemia Acute diverticulitis Surgical History S/P left atrial appendage ligation History of lumpectomy of right breast History of breast reconstruction History of hysterectomy Acoustic neuroma Family History Mother Hypertension Colon cancer Father Heart disease Cancer Prostate Hypertension Brother Diabetes Hypertension Sister Cancer Ovarian, thyroid Sister Cancer Thyroid Other Hypokalemia Social History (Reviewed 09/16/24 @ (more content not included)... Normal [facility] ALBUMIN/CREATININE RATIO, UR INEon 10-28-2024 Albumin DL <= 20 mg/L (U) [Mass/Vol] 87.4 mg/L Normal [facility] Comment on above: Order Comment: Speci men Type: BLOOD SPECIMEN Ordering Facility: [facility] Address: [address] [place] [address] Performed By: #### 5 5454-3 #### [facility] CLIA [id number] [address] [place] [address] [place] [facility] Albumin/Creatinine (U) [Mass ratio] 30 mg/g High <30 [facility] Comment on above: Order Comment: Speci men Type: BLOOD SPECIMEN Ordering Facility: [facility] Address: [address] [place] [address] Result Comment: Adul t Male and Female Nephrotic Criteria: <30 mg/g is considered normal to mildly increased 30-300 mg/g is considered moderately increased >300 mg/g is considered severely increased KDIGO. (2013). KDIGO 2012 Clinical Practice Guideline for the Evaluation and Management of Chronic Kidney Disease. Official Journal of the International Society of Nephrology, 3(1), 1-150. Performed By: #### 5 5454-3 #### [facility] CLIA [id number] [address] [place] [address] [place] Creatinine (U) [Mass/Vol] 287.1 mg/dL Normal 20.0-300.0 [facility] Comment on above: Order Comment: Speci men Type: BLOOD SPECIMEN Ordering Facility: [facility] Address: [address] [place] [address] Performed By: #### 5 [id number] #### [facility] CLIA [id number] [address] [place] [address] [place] CBC W Auto Differential pane l (Bld)on 10-28-2024 Basophils (Bld) [#/Vol] 0.06 10*3/uL Normal <0.11 [facility] Comment on above: Order Comment: Speci men Type: BLOOD SPECIMEN [facility] Facility[facility] Address: [address] [place] [address] Performed By: #### 5 5454-3 #### [facility] CLIA [id number] [address] [place] [address] [place] Basophils/100 WBC (Bld) 0.7 % [facility] Comment on above: Order Comment: Speci men Type: BLOOD SPECIMEN [facility] Facility: [facility] Address: [address] [place] [address] Performed By: #### 5 5454-3 #### [facility] CLIA [id number] [address] [place] [address] [place] Differential cell count method Nom (Bld) Auto Normal [facility] Comment on above: Order Comment: Speci men Type: BLOOD SPECIMEN [facility] Facility[facility] Address: [address] [place] [address] Performed By: #### 5 5454-3 #### [facility] CLIA [id number] [address] [place] [address] [place] Eosinophils (Bld) [#/Vol] 0.21 10*3/uL Normal <0.46 [facility] Comment on above: Order Comment: Speci men Type: BLOOD SPECIMEN [facility]ing Facility: [facility] Address: [address] [place] [address] Performed By: #### 5 5454-3 #### [facility] CLIA [id number] [address] [place] [address] [place] Eosinophils/100 WBC (Bld) 2.6 % Normal [facility] Comment on above: Order Comment: Speci men Type: BLOOD SPECIMEN [facility] Facility: [facility] Address: [address] [place] [address] Performed By: #### 5 5454-3 #### [facility] CLIA [id number] [address] [place] [address] [place] Erythrocyte distribution width (RBC) [Ratio] 16.9 % High 11.5-15.0 [facility] Comment on above: Order Comment: Speci men Type: BLOOD SPECIMEN [facility]ing Facility: [facility] Address: [address] [place] [address] Performed By: #### 5 5454-3 #### [facility] CLIA [id number] [address] [place] [address] [place] Hematocrit (Bld) [Volume fraction] 42.0 % Normal 36.0-46.0 [facility] Comment on above: Order Comment: Speci men Type: BLOOD SPECIMEN [facility]ing Facility: [facility] Address: [address] [place] [address] Performed By: #### 5 5454-3 #### [facility] CLIA [id number] [address] [place] [address] [place] Hemoglobin (Bld) [Mass/Vol] 13.0 g/dL Normal 11.5-15.5 [facility] Comment on above: Order Comment: Speci men Type: BLOOD SPECIMEN [facility]ing Facility: [facility] Address: [address] [place] [address] Performed By: #### 5 5454-3 #### [facility] CLIA [id number] [address] [place] [address] [place] Immature granulocytes (Bld) [#/Vol] 0.03 10*3/uL Normal <0.10 [facility] Comment on above: Order Comment: Speci men Type: BLOOD SPECIMEN [facility] Facility: [facility] Address: [address] [place] [address] Performed By: #### 5 5454-3 #### [facility] CLIA [id number] [address] [place] [address] [place] Immature granulocytes/100 WBC (Bld) 0.4 % Normal [facility] Comment on above: Order Comment: Speci men Type: BLOOD SPECIMEN [facility]ing Facility: [facility] Address: [address] [place] [address] Performed By: #### 5 5454-3 #### [facility] CLIA [id number] [address] [place] [address] [place] Lymphocytes (Bld) [#/Vol] 2.38 10*3/uL Normal 1.00-4.00 [facility] Comment on above: Order Comment: Speci men Type: BLOOD SPECIMEN [facility] Facility: [facility] Address: [address] [place] [address] Performed By: #### 5 5454-3 #### [facility] CLIA [id number] [address] [place] [address] [place] Lymphocytes/100 WBC (Bld) 29.0 % Normal [facility] Comment on above: Order Comment: Speci men Type: BLOOD SPECIMEN [facility]ing Facility: [facility] Address: [address] [place] [address] Performed By: #### 5 5454-3 #### [facility] CLIA [id number] [address] [place] [address] [place] MCH (RBC) [Entitic mass] 28.6 pg Normal 26.0-34.0 [facility] Comment on above: Order Comment: Speci men Type: BLOOD SPECIMEN [facility] Facility[facility] Address: [address] [place] [address] Performed By: #### 5 5454-3 #### [facility] CLIA [id number] [address] [place] [address] [place] MCHC (RBC) [Mass/Vol] 31.0 g/dL Normal 30.5-36.0 [facility] Comment on above: Order Comment: Speci men Type: BLOOD SPECIMEN [facility]ing Facility: [facility] Address: [address] [place] [address] Performed By: #### 5 5454-3 #### [facility] CLIA [id number] [address] [place] [address] [place] MCV (RBC) [Entitic vol] 92.3 fL Normal 80.0-100.0 [facility] Comment on above: Order Comment: Speci men Type: BLOOD SPECIMEN [facility]ing Facility: [facility] Address: [address] [place] [address] Performed By: #### 5 5454-3 #### [facility] CLIA [id number] [address] [place] [address] [place] Monocytes (Bld) [#/Vol] 0.88 10*3/uL High <0.87 [facility] Comment on above: Order Comment: Speci men Type: BLOOD SPECIMEN [facility]ing Facility: [facility] Address: [address] [place] [address] Performed By: #### 5 5454-3 #### [facility] CLIA [id number] [address] [place] [address] [place] Monocytes/100 WBC (Bld) 10.7 % Normal [facility] Comment on above: Order Comment: Speci men Type: BLOOD SPECIMEN [facility]ing Facility: [facility] Address: [address] [place] [address] Performed By: #### 5 5454-3 #### [facility] CLIA [id number] [address] [place] [address] [place] Neutrophils (Bld) [#/Vol] 4.66 10*3/uL Normal 1.45-7.50 [facility] Comment on above: Order Comment: Speci men Type: BLOOD SPECIMEN [facility] Facility: [facility] Address: [address] [place] [address] Performed By: #### 5 5454-3 #### [facility] CLIA [id number] [address] [place] [address] [place] Neutrophils/100 WBC (Bld) 56.6 % Normal [facility] Comment on above: Order Comment: Speci men Type: BLOOD SPECIMEN [facility]ing Facility: [facility] Address: [address] [place] [address] Performed By: #### 5 5454-3 #### [facility] CLIA [id number] [address] [place] [address] [place] Nucleated RBC (Bld) [#/Vol] 10*3/uL Normal <0.01 [facility] Comment on above: Order Comment: Speci men Type: BLOOD SPECIMEN [facility] Facility: [facility] Address: [address] [place] [address] Performed By: #### 5 5454-3 #### [facility] CLIA [id number] [address] [place] [address] [place] Nucleated RBC/100 WBC (Bld) [Ratio] 0.0 /100 WBC Normal [facility] Comment on above: Order Comment: Speci men Type: BLOOD SPECIMEN [facility] Facility: [facility] Address: [address] [place] [address] Performed By: #### 5 5454-3 #### [facility] CLIA [id number] [address] [place] [address] [place] Platelet mean volume (Bld) [Entitic vol] 10.4 fL Normal 9.0-12.7 [facility] Comment on above: Order Comment: Speci men Type: BLOOD SPECIMEN [facility]ing Facility: [facility] Address: [address] [place] [address] Performed By: #### 5 5454-3 #### [facility] CLIA [id number] [address] [place] [address] [place] Platelets (Bld) [#/Vol] 397 10*3/uL Normal 150-400 [facility] Comment on above: Order Comment: Speci men Type: BLOOD SPECIMEN [facility]ing Facility: [facility] Address: [address] [place] [address] Performed By: #### 5 5454-3 #### [facility] CLIA [id number] [address] [place] [address] [place] RBC (Bld) [#/Vol] 4.55 10*6/uL Normal 3.90-5.[address] [facility] Comment on above: Order Comment: Speci men Type: BLOOD SPECIMEN [facility] Facility[facility] Address: [address] [place] [address] Performed By: #### 5 5454-3 #### [facility] CLIA [id number] [address] [place] [address] [place] WBC (Bld) [#/Vol] 8.22 10*3/uL Normal 3.70-11.[address] [facility] Comment on above: Order Comment: Speci men Type: BLOOD SPECIMEN [facility] Facility[facility] Address: [address] [place] [address] Performed By: #### 5 5454-3 #### [facility] CLIA [id number] [address] [place] [address] [place] Comprehensive metabolic 2000 panelon 10-28-2024 Albumin [Mass/Vol] 4.0 g/dL Normal 3.9-4.9 [facility] Comment on above: Order Comment: Speci men Type: BLOOD SPECIMENOrdering Facility: [facility] Address: [address] [place] [address] Performed By: #### 2 4323-8, 6-4, 50277-4 ####[facility] [id number] [place] [address] [place] ALP [Catalytic activity/Vol] 95 U/L Normal 34-123 [facility] Comment on above: Order Comment: Speci men Type: BLOOD SPECIMENOrdering Facility: [facility] Address: [address] [place] [address] Performed By: #### 2 4323-8, 2275-, 07024-6 ####[facility] [id number] [place] [address] [place] ALT [Catalytic activity/Vol] 24 U/L Normal 7-38 [facility] Comment on above: Order Comment: Speci men Type: BLOOD SPECIMENOrdering Facility: [facility] Address: [address] [place] [address] Performed By: #### 2 4323-8, 2275-12, 81938-8 ####[facility] [id number] [place] [address] [place] Anion gap [Moles/Vol] 11 mmol/L Normal 8-15 [facility] Comment on above: Order Comment: Speci men Type: BLOOD SPECIMENOrdering Facility: [facility] Address: [address] [place] [address] Performed By: #### 2 4323-8, 6-, 36411-8 ####[facility] [id number] [place] [address] [place] AST [Catalytic activity/Vol] 27 U/L Normal 13-35 [facility] Comment on above: Order Comment: Speci men Type: BLOOD SPECIMENOrdering Facility: [facility] Address: [address] [place] [id number] Performed By: #### 2 4323-8, 6-4, 51389-6 ####[facility] [id number] [place] [address] [place] Bilirubin [Mass/Vol] 0.4 mg/dL Normal 0.2-1.3 [facility] Comment on above: Order Comment: Speci men Type: BLOOD SPECIMENOrdering Facility: [facility] Address: [address] [place] [address] Performed By: #### 2 4323-8, 6-4, 16134-1 ####[facility] [id number] [place] [address] [place] Calcium [Mass/Vol] 10.0 mg/dL Normal 8.5-10.2 [facility] Comment on above: Order Comment: Speci men Type: BLOOD SPECIMENOrdering Facility: [facility] Address: [address] [place] [address] Performed By: #### 2 4323-8, 2275-4, 49690-2 ####[facility] [id number] [place] [address] [place] Chloride [Moles/Vol] 103 mmol/L Normal 98-107 [facility] Comment on above: Order Comment: Speci men Type: BLOOD SPECIMENOrdering Facility: [facility] Address: [address] [place] [address] Performed By: #### 2 4323-8, 6-4, 35076-2 ####[facility] [id number] [place] [address] [place] CO2 [Moles/Vol] 24 mmol/L Normal 22-30 [facility] Comment on above: Order Comment: Speci men Type: BLOOD SPECIMENOrdering Facility: [facility] Address: [address] [place], [place] [address] Performed By: #### 2 4323-8, 2276-4, 74536-1 ####[facility] [id number] [place] [id number] [place] Creatinine [Mass/Vol] 0.99 mg/dL High 0.58-0.96 [facility] Comment on above: Order Comment: Speci men Type: BLOOD SPECIMENOrdering Facility: [facility] Address: [address] [place] [address] Performed By: #### 2 4323-8, 2275-4, 72353-8 ####[facility] [id number] [place] [address] [place] Creatinine and Glomerular filtration rate.predicted panel (S/P/Bld) 60 mL/min/1.73m??? Normal >=60 [facility] Comment on above: Order Comment: Jethro men Type: BLOOD SPECIMENOrdering Facility: [facility] Address: [address] [place] [address] Result Comment: Inocencia mated Glomerular Filtration Rate (eGFR) is calculated using the 2020 CKD-EPI creatinine equation. This equation utilizes serum creatinine, sex, and age as parameters. The creatinine assay has traceable calibration to isotope dilution-mass spectrometry. Refer to KDIGO guidelines for clinical interpretation. In patients with unstable renal function, e.g. those with acute kidney injury, the eGFR may not accurately reflect actual GFR. Performed By: #### 2 4323-8, 2275-4, 86142-4 ####[facility] [id number] [place] [id number] [place] Glucose [Mass/Vol] 105 mg/dL High 74-99 [facility] Comment on above: Order Comment: Speci men Type: BLOOD SPECIMENOrdering Facility: [facility] Address: [address] [place] [address] Result Comment: The [place] Diabetes Association (ADA) provides guidance for cutoff [...] Standards of Medical Care in Diabetes 2016, [place] Diabetes Association. Diabetes Care. 2016.39(Suppl 1). Performed By: #### 2 4323-8, 2275-12, 05198-8 ####[facility] [id number] [address] [address] [place] Potassium [Moles/Vol] 4.4 mmol/L Normal 3.7-5.1 [facility] Comment on above: Order Comment: Speci men Type: BLOOD SPECIMENOrdering Facility: [facility] Address: [address] [place] [address] Performed By: #### 2 4323-8, 2275-12, 03169-8 ####[facility] [id number] [place] [address] [place] Protein [Mass/Vol] 7.4 g/dL Normal 6.3-8.0 [facility] Comment on above: Order Comment: Speci men Type: BLOOD SPECIMENOrdering Facility: [facility] Address: [address] [place] [address] Performed By: #### 2 4323-8, 2275-12, ####[facility] [id number] [address] [address] [place] Sodium [Moles/Vol] 138 mmol/L Normal 136-144 [facility] Comment on above: Order Comment: Speci men Type: BLOOD SPECIMENOrdering Facility: [facility] Address: [address] [place] [address] Performed By: #### 2 4323-8, 2275-12, 78432-6 ####[facility] [id number] [place] [address] [place] Urea nitrogen [Mass/Vol] 34 mg/dL High 7- [facility] Comment on above: Order Comment: Speci men Type: BLOOD SPECIMENOrdering Facility: [facility] Address: [address] [place] [address] Performed By: #### 2 4323-8, 2276-4, 58339-8 ####[facility] [id number] [place] [address] [place] Ferritin SerPl-mCncon 2024 Ferritin [Mass/Vol] 107.0 ng/mL Normal 14.7-205.1 [facility] Comment on above: Order Comment: Speci men Type: BLOOD SPECIMENOrdering Facility: [facility] Address: [address] [place] [address] Performed By: #### 2 4323-8, 2276-4, 81869-7 ####[facility] [id number] [place] [address] [place] HbA1c (Bld)on 10-28-2024 Average glucose Estimated from glycated hemoglobin (Bld) [Mass/Vol] 105 mg/dL Normal [facility] Comment on above: Order Comment: Speci men Type: BLOOD SPECIMEN [facility] Address: [address] [place] [address] Result Comment: eAG: (Estimated average glucose) is a calculated value from HgbA1c and is mortician supplies sales representative of the average blood glucose level in the last 2-3 month period. Performed By: #### 5 5454-3 #### [facility] CLIA [id number] [address] [place] [address] [place] HbA1c (Bld) [Mass fraction] 5.3 % Normal 4.3-5.6 [facility] Comment on above: Order Comment: Speci men Type: BLOOD SPECIMEN [facility] Address: [address] [place] [address] Result Comment: [place] Diabetes Association guidelines indicate that patients with HgbA1c in the range 5.7-6.4% are at increased risk for development of diabetes, and intervention by lifestyle modification may be beneficial. HgbA1c greater or equal to 6.5% is considered diagnostic of diabetes. Performed By: #### 5 5454-3 #### [facility] CLIA [id number] [facility] [place] [address] [place] Lipid 1996 panelon 5 Cholesterol [Mass/Vol] 142 mg/dL Normal <200 [facility] Comment on above: Order Comment: Speci men Type: BLOOD SPECIMENOrdering Facility: [facility] Address: [address] [place] [address] Result Comment: <200 mg/dL, Desirable 200-239 mg/dL, Borderline high >239 mg/dL, High Performed By: #### 2 4323-8, 2276-4, 27856-9 ####[facility] [id number] [address] [place] Cholesterol in HDL [Mass/Vol] 45 mg/dL Normal >39 [facility] Comment on above: Order Comment: Speci men Type: BLOOD SPECIMENOrdering Facility: [facility] Address: [address] [place] [address] Result Comment: 40-5 9 mg/dL, Acceptable >59 mg/dL, High: Negative risk factor for coronary heart disease <40 mg/dL, Low: Positive risk factor for coronary heart disease Performed By: #### 2 4323-8, 2276-4, 45431-0 ####[facility] [id number] [address] [place] Cholesterol in LDL [Mass/Vol] 77 mg/dL Normal <100 [facility] Comment on above: Order Comment: Speci men Type: BLOOD SPECIMENOrdering Facility: [facility] Address: [address] [place] [address] Result Comment: <100 mg/dL, Optimal 100-129 mg/dL, Near optimal/above optimal 130-159 mg/dL, Borderline high 160-189 mg/dL, High >189 mg/dL, Very high Secondary prevention optimal LDL Cholesterol levels are recommended to be < 70 mg/dL Performed By: #### 2 4323-8, 6-4, 19248-8 ####[facility] [id number] [address] [address] [place] Cholesterol in LDL/Cholesterol in HDL [Mass ratio] 1.71 {ratio} Normal <2.54 [facility] Comment on above: Order Comment: Speci men Type: BLOOD SPECIMENOrdering Facility: [facility] Address: [address] [place] [address] Result Comment: Juju sutton: 1. National Cholesterol Education Program ATP III Guideline At-A-Glance Quick Desk Reference: National Heart, Lung, and Blood [place]. National Institutes of Health. 2001: NIH Publication No. 01-3305. 2. An International Atherosclerosis Society position paper: global recommendations for the management of dyslipidemia: executive summary, Atherosclerosis. 2014: 232(2):410-413. Performed By: #### 2 4323-8, 2275-4, 06204-6 ####[facility] [id number] [place] [address] [place] Cholesterol in VLDL [Mass/Vol] 20 mg/dL Normal <30 [facility] Comment on above: Order Comment: Pati men Type: BLOOD SPECIMENOrdering Facility: [facility] Address: [address] [place] [address] Performed By: #### 2 4323-8, 6-4, 18434-5 ####[facility] [id number] [place] [id number] [place] Cholesterol non HDL [Mass/Vol] 97 mg/dL Normal <130 [facility] Comment on above: Order Comment: Pati men Type: BLOOD SPECIMENOrdering Facility: [facility] Address: [address], [place] [address] Result Comment: <130 mg/dL, Optimal 130-159 mg/dL, Near optimal/above optimal 160-189 mg/dL, Borderline high 190-219 mg/dL, High >219 mg/dL, Very high Secondary prevention optimal non HDL Cholesterol levels are recommended to be <100 mg/dL Performed By: #### 2 4323-8, 6-4, 49987-9 ####[facility] [id number] [place] [address] [place] Cholesterol.total/Choles terol in HDL [Mass ratio] 3.16 {ratio} Normal <5.10 [facility] Comment on above: Order Comment: Speci men Type: BLOOD SPECIMENOrdering Facility: [facility] Address: [address] [place] [address] Performed By: #### 2 4323-8, 2275-, 88650-5 ####[facility] [id number] [address] STATES OF [facility] FASTING TIME 12 hrs Normal [facility] Comment on above: Order Comment: Speci men Type: BLOOD SPECIMENOrdering Facility: [facility] Address: [address] [place] [address] Performed By: #### 2 4323-8, 2275-12, ####[facility] [id number] [place] [address] [place] Triglyceride [Mass/Vol] 100 mg/dL Normal <150 [facility] Comment on above: Order Comment: Speci men Type: BLOOD SPECIMENOrdering Facility: [facility] Address: [address] [place] [address] Result Comment: <150 mg/dL, Normal 150-199 mg/dL, Borderline high 200-499 mg/dL, High >499 mg/dL, Very high Performed By: #### 2 4323-8, 2275-4, 97265-6 ####[facility] [id number] [place] [id number] [place] CNOVon 10-13-2024 CNOV Office Visit (INT[facility] ) KARLA CAI ([id number]) 1950 F Date Time Provider Department 10/13/24 12:20 PM SAVANNA KOTHARI [facility] During your visit today, we recorded the following information about you: Pulse Respiration Blood pressure Weight 80/minute 12/minute 114/70 69.1 kg Height 1.72 m Savanna Kothari, EDWARD.SURGICAL ONCOLOGIST 10/13/2024 12:52 PM Signed Karla Christie Trell is a 73 year old female here [...] Current care team: Patient Care Team: Jae Belcher MD as PCP - General (Internal Medicine) Savanna Kothari, EDWARD.SURGICAL ONCOLOGIST as Electrical Engineering Professor (Internal Medicine) Dr. Fleming-podiatry Dr. Moon-general surgeon Outside specialists seen: [facility], [facility]-Dr. Goldberg, Medical/Family history review Reviewed and updated problem list, medical/surgical/famil y/social history, medications, and allergies. Opioid use review [...] 80 Resp 12 Ht 172 cm (5' 7.72) Wt 69.1 kg (152 lb 5.4 oz) SpO2 96% BMI 23.36 kg/m? Vision Screening: Follows with optometry/ophthalmolog y Assessment/Plan Medicare annual wellness visit, subsequent () [...] 80 Resp 12 Ht 172 cm (5' 7.72) Wt 69.1 kg (152 lb 5.4 oz) [...] - Controlled - Continue current medications Savanna Kothari APRN.CNP Medical Decision Making: Problems: Moderate: 2+ stable chronic illnesses Risk: Low: Low risk from testing/treatment Medical Decision Making Level: 3 - Low Savanna Kothari APRN.CNP 10/13/2024 12:44 PM Addendum Screening schedule The following prevention plan is recommended: DTaP,Tdap,Td Vaccine(2 - Td or Tdap) due on 06/21/2019 WHAT YOU CAN DO TO PREVENT FALLS Many falls can be prevented. By making some changes, you can lower your chances of falling. Four t (more content not included)... Normal [facility] ALBUMIN/CREATININE RATIO, UR INEon 10-12-2024 Albumin DL <= 20 mg/L (U) [Mass/Vol] 49.4 mg/L Normal [facility] Comment on above: Order Comment: Speci men Type: URINE SPECIMENOrdering Facility: [facility] [facility] Address: [address] [place] [address] Performed By: #### U ACR ####[facility] [id number] [facility] [id number] [place] [address] [place] Albumin/Creatinine (U) [Mass ratio] 35 mg/g High <30 [facility] Comment on above: Order Comment: Speci men Type: URINE SPECIMENOrdering Facility: [facility] Address: [address] [place] [address] Result Comment: Adul t Male and Female Nephrotic Criteria: <30 mg/g is considered normal to mildly increased 30-300 mg/g is considered moderately increased >300 mg/g is considered severely increased KDIGO. (2013). KDIGO 2012 Clinical Practice Guideline for the Evaluation and Management of Chronic Kidney Disease. Official Journal of the International Society of Nephrology, 3(1), 1-150. Performed By: #### U ACR ####[facility] [id number] [place] [address] [place] Creatinine (U) [Mass/Vol] 139.6 mg/dL Normal 20.0-300.0 [facility] Comment on above: Order Comment: Speci men Type: URINE SPECIMENOrdering Facility: [facility] Address: [address] [place] [address] Performed By: #### U ACR ####[facility] [id number] [place] [address] [place] CBC panel Auto (Bld)on 10-12 Erythrocyte distribution width (RBC) [Ratio] 17.9 % High 11.5-15.0 [facility] Comment on above: Order Comment: Speci men Type: BLOOD SPECIMEN [facility] Address: [address] [place] [address] Performed By: #### 5 5454-3 #### [facility] CLIA [id number] [address] [place] [address] [place] Hematocrit (Bld) [Volume fraction] 40.4 % Normal 36.0-46.0 [facility] Comment on above: Order Comment: Speci men Type: BLOOD SPECIMEN [facility] Address: [address] [place] [address] Performed By: #### 5 5454-3 #### [facility] CLIA [id number] [address] [place] [address] [place] Hemoglobin (Bld) [Mass/Vol] 12.9 g/dL Normal 11.5-15.5 [facility] Comment on above: Order Comment: Speci men Type: BLOOD SPECIMEN [facility] Address: [address] [place] [address] Performed By: #### 5 5454-3 #### [facility] CLIA [id number] [address] [id number] [address] [place] MCH (RBC) [Entitic mass] 29.1 pg Normal 26.0-34.0 [facility] Comment on above: Order Comment: Speci men Type: BLOOD SPECIMEN [facility] Address: [address] [place] [address] Performed By: #### 5 5454-3 #### [facility] CLIA [id number] [address] [place] [address] [place] MCHC (RBC) [Mass/Vol] 31.9 g/dL Normal 30.5-36.0 [facility] Comment on above: Order Comment: Speci men Type: BLOOD SPECIMEN [facility] Address: [address] [place] [address] Performed By: #### 5 5454-3 #### [facility] CLIA [id number] [address] [place] [address] [place] MCV (RBC) [Entitic vol] 91.2 fL Normal 80.0-100.0 [facility] Comment on above: Order Comment: Speci men Type: BLOOD SPECIMEN [facility] Address: [address] [place] [address] Performed By: #### 5 5454-3 #### [facility] CLIA [id number] [address] [place] [address] [place] Nucleated RBC (Bld) [#/Vol] 10*3/uL Normal <0.01 [facility] Comment on above: Order Comment: Speci men Type: BLOOD SPECIMEN [facility] Address: [address] [place] [address] Performed By: #### 5 5454-3 #### [facility] CLIA [id number] [address] [place] [address] [place] Platelet mean volume (Bld) [Entitic vol] 10.3 fL Normal 9.0-12.7 [facility] Comment on above: Order Comment: Speci men Type: BLOOD SPECIMEN [facility] Address: [address] [place] [address] Performed By: #### 5 5454-3 #### [facility] CLIA [id number] [address] [place] [address] [place] Platelets (Bld) [#/Vol] 497 10*3/uL High 150-400 [facility] Comment on above: Order Comment: Speci men Type: BLOOD SPECIMEN [facility] Address: [address] [place] [address] Performed By: #### 5 5454-3 #### [facility] CLIA [id number] [address] [place] [address] [place] RBC (Bld) [#/Vol] 4.43 10*6/uL Normal 3.90-5.[address] [facility] Comment on above: Order Comment: Speci men Type: BLOOD SPECIMEN [facility] Address: [address] [place] [address] Performed By: #### 5 5454-3 #### [facility] CLIA [id number] [address] [place] [address] [place] WBC (Bld) [#/Vol] 7.37 10*3/uL Normal 3.70-11.[address] [facility] Comment on above: Order Comment: Speci men Type: BLOOD SPECIMEN [facility] Address: [address] [place] [address] Performed By: #### 5 5454-3 #### [facility] CLIA [id number] [address] [place] [address] [place] Comprehensive metabolic 2000 panelon 10-12-2024 Albumin [Mass/Vol] 4.0 g/dL Normal 3.9-4.9 [facility] Comment on above: Order Comment: Speci men Type: BLOOD SPECIMEN [facility] Address: [address] [place] [address] Performed By: #### 5 5454-3 #### [facility] CLIA [id number] [address] [place] [address] [place] ALP [Catalytic activity/Vol] 100 U/L Normal 34-123 [facility] Comment on above: Order Comment: Speci men Type: BLOOD SPECIMEN [facility] Address: [address] [place] [address] Performed By: #### 5 5454-3 #### [facility] CLIA [id number] [address] [place] [address] [place] ALT [Catalytic activity/Vol] 27 U/L Normal 7-38 [facility] Comment on above: Order Comment: Speci men Type: BLOOD SPECIMEN [facility] Address: [address] [place] [address] Performed By: #### 5 5454-3 #### [facility] CLIA [id number] [address] [place] [address] [place] Anion gap [Moles/Vol] 14 mmol/L Normal 8-15 [facility] Comment on above: Order Comment: Speci men Type: BLOOD SPECIMEN [facility] Address: [address] [place] [address] Performed By: #### 5 5454-3 #### [facility] CLIA [id number] [address] [place] [address] [place] AST [Catalytic activity/Vol] 28 U/L Normal 13-35 [facility] Comment on above: Order Comment: Speci men Type: BLOOD SPECIMEN [facility] Address: [address] [place] [address] Performed By: #### 5 5454-3 #### [facility] CLIA [id number] [address] [place] [address] [place] Bilirubin [Mass/Vol] 0.3 mg/dL Normal 0.2-1.3 [facility] Comment on above: Order Comment: Speci men Type: BLOOD SPECIMEN [facility] Address: [address] [place] [address] Performed By: #### 5 5454-3 #### [facility] CLIA [id number] [address] [place] [address] [place] Calcium [Mass/Vol] 9.3 mg/dL Normal 8.5-10.2 [facility] Comment on above: Order Comment: Speci men Type: BLOOD SPECIMEN [facility] Address: [address] [place] [address] Performed By: #### 5 5454-3 #### [facility] CLIA [id number] [address] [place] [address] [place] Chloride [Moles/Vol] 103 mmol/L Normal 98-107 [facility] Comment on above: Order Comment: Speci men Type: BLOOD SPECIMEN [facility] Address: [address] [place] [address] Performed By: #### 5 5454-3 #### [facility] CLIA [id number] [address] [place] [address] [place] CO2 [Moles/Vol] 21 mmol/L Low 22-30 [facility] Comment on above: Order Comment: Speci men Type: BLOOD SPECIMEN [facility] Address: [address] [place] [address] Performed By: #### 5 5454-3 #### [facility] CLIA [id number] [address] [place] [address] [place] Creatinine [Mass/Vol] 0.98 mg/dL High 0.58-0.96 [facility] Comment on above: Order Comment: Speci men Type: BLOOD SPECIMEN [facility] Address: [address] [place] [address] Performed By: #### 5 5454-3 #### [facility] CLIA [id number] [address] [place] [address] [place] Creatinine and Glomerular filtration rate.predicted panel (S/P/Bld) 61 mL/min/1.73m??? Normal >=60 [facility] Comment on above: Order Comment: Jethro bergman Type: BLOOD SPECIMEN [facility] Address: [address] [place] [address] Result Comment: Inocencia mated Glomerular Filtration Rate (eGFR) is calculated using the 2020 CKD-EPI creatinine equation. This equation utilizes serum creatinine, sex, and age as parameters. The creatinine assay has traceable calibration to isotope dilution-mass spectrometry. Refer to KDIGO guidelines for clinical interpretation. In patients with unstable renal function, e.g. those with acute kidney injury, the eGFR may not accurately reflect actual GFR. Performed By: #### 5 5454-3 #### [facility] CLIA [id number] [address] [place] [address] [place] Glucose [Mass/Vol] 148 mg/dL High 74-99 [facility] Comment on above: Order Comment: Jethro bergman Type: BLOOD SPECIMEN [facility] Address: [address] [place] [address] Result Comment: The [place] Diabetes Association (ADA) provides guidance for cutoff [...] Standards of Medical Care in Diabetes 2016, [place] Diabetes Association. Diabetes Care. 2016.39(Suppl 1). Performed By: #### 5 5454-3 #### [facility] CLIA [id number] [address] [place] [address] [place] Potassium [Moles/Vol] 4.1 mmol/L Normal 3.7-5.1 [facility] Comment on above: Order Comment: Speci men Type: BLOOD SPECIMEN [facility] Address: [address] [place] [address] Performed By: #### 5 5454-3 #### [facility] CLIA [id number] [address] [place] [address] [place] Protein [Mass/Vol] 7.2 g/dL Normal 6.3-8.0 [facility] Comment on above: Order Comment: Speci men Type: BLOOD SPECIMEN [facility] Address: [address] [place] [address] Performed By: #### 5 5454-3 #### [facility] CLIA [id number] [address] [place] [address] [place] Sodium [Moles/Vol] 138 mmol/L Normal 136-144 [facility] Comment on above: Order Comment: Speci men Type: BLOOD SPECIMEN [facility] Address: [address] [place] [address] Performed By: #### 5 5454-3 #### [facility] CLIA [id number] [address] [place] [address] [place] Urea nitrogen [Mass/Vol] 35 mg/dL High 7-21 [facility] Comment on above: Order Comment: Speci men Type: BLOOD SPECIMEN [facility] Address: [address] [place] [address] Performed By: #### 5 5454-3 #### [facility] CLIA [id number] [address] [place] [address] [place] HbA1c (Bld)on 10-12-2024 Average glucose Estimated from glycated hemoglobin (Bld) [Mass/Vol] 105 mg/dL Normal [facility] Comment on above: Order Comment: Speci men Type: BLOOD SPECIMEN [facility] Address: [address] [place] [address] Result Comment: eAG: (Estimated average glucose) is a calculated value from HgbA1c and is mortician supplies sales representative of the average blood glucose level in the last 2-3 month period. Performed By: #### 5 5454-3 #### [facility] CLIA [id number] [address] [place] [address] [place] HbA1c (Bld) [Mass fraction] 5.3 % Normal 4.3-5.6 [facility] Comment on above: Order Comment: Jethro bergman Type: BLOOD SPECIMEN [facility] Address: [address] [place] [address] Result Comment: [place] Diabetes Association guidelines indicate that patients with HgbA1c in the range 5.7-6.4% are at increased risk for development of diabetes, and intervention by lifestyle modification may be beneficial. HgbA1c greater or equal to 6.5% is considered diagnostic of diabetes. Performed By: #### 5 5454-3 #### [facility] CLIA [id number] [address] [place] [address] [place] LIPID PANEL, NONFASTINGon Cholesterol [Mass/Vol] 136 mg/dL Normal <200 [facility] Comment on above: Order Comment: Jethro bergman Type: BLOOD SPECIMEN [facility] Address: [address] [place] [address] Result Comment: <200 mg/dL, Desirable 200-239 mg/dL, Borderline high >239 mg/dL, High Performed By: #### 5 5454-3 #### [facility] CLIA [id number] [address] [place] [address] [place] HDL CHOLESTEROL, NF 47 mg/dL Normal >[address] [facility] Comment on above: Order Comment: Jethro bergman Type: BLOOD SPECIMEN [facility] Address: [address] [place] [address] Result Comment: 40-5 9 mg/dL, Acceptable >59 mg/dL, High: Negative risk factor for coronary heart disease <40 mg/dL, Low: Positive risk factor for coronary heart disease Performed By: #### 5 5454-3 #### [facility] CLIA [id number] [address] [place] [address] [place] [facility] LDL CHOLESTEROL, NF 70 mg/dL Normal <[address] [facility] Comment on above: Order Comment: Jethro bergman Type: BLOOD SPECIMEN [facility] Address: [address] [place] [address] Result Comment: <100 mg/dL, Optimal 100-129 mg/dL, Near optimal/above optimal 130-159 mg/dL, Borderline high 160-189 mg/dL, High >189 mg/dL, Very high Secondary prevention optimal LDL Cholesterol levels are recommended to be < 70 mg/dL Performed By: #### 5 5454-3 #### [facility] CLIA [id number] [address] [place] [address] OF [facility] LDL/HDL RATIO, NF 1.49 mg/dL Normal <2.54 [facility] Comment on above: Order Comment: Jethro bergman Type: BLOOD SPECIMEN [facility] Address: [address] [place] [address] Result Comment: Refe rence: 1. National Cholesterol Education Program ATP III Guideline At-A-Glance Quick Desk Reference: National Heart, Lung, and Blood [place]. National Institutes of Health. 2001: NIH Publication No. 01-3305. 2. An International Atherosclerosis Society position paper: global recommendations for the management of dyslipidemia: executive summary, Atherosclerosis. 2014: 232(2):410-413. Performed By: #### 5 5454-3 #### [facility] CLIA [id number] [address] [place] [address] [place] NON HDL CHOL, NF 89 mg/dL Normal <130 [facility] Comment on above: Order Comment: Jethro bergman Type: BLOOD SPECIMEN [facility] Address: [address] [place] [address] Result Comment: <130 mg/dL, Optimal 130-159 mg/dL, Near optimal/above optimal 160-189 mg/dL, Borderline high 190-219 mg/dL, High >219 mg/dL, Very high Secondary prevention optimal non HDL Cholesterol levels are recommended to be <100 mg/dL Performed By: #### 5 5454-3 #### [facility] CLIA [id number] [address] [place] [address] [place] T CHOL/HDL RATIO NF 2.89 mg/dL Normal <5.[address] [facility] Comment on above: Order Comment: Speci men Type: BLOOD SPECIMEN [facility] Address: [address] [place] [address] Performed By: #### 5 5454-3 #### [facility] CLIA [id number] [address] [place] [address] [place] TRIGLYCERIDES, NF 97 mg/dL Normal <150 [facility] Comment on above: Order Comment: Speci men Type: BLOOD SPECIMEN [facility] Address: [address] [place] [address] Result Comment: <150 mg/dL, Normal 150-199 mg/dL, Borderline high 200-499 mg/dL, High >499 mg/dL, Very high Performed By: #### 5 5454-3 #### [facility] CLIA [id number] [address] [place] [address] [place] VLDL CHOLESTEROL, NF 19 mg/dL Normal <30 [facility] Comment on above: Order Comment: Speci men Type: BLOOD SPECIMEN [facility] Address: [address] [place] [address] Performed By: #### 5 5454-3 #### [facility] CLIA [id number] [address] [place] [address] [place] XR CHEST 2 VIEWSon XR CHEST 2 VIEWS Interpreted By: Ayo Rey, STUDY: XR CHEST 2 VIEWS; 10/07/2024 3:16 pm INDICATION: Signs/Symptoms:postop. ,I71.21 Aneurysm of the ascending aorta, without rupture (CMS-HCC) COMPARISON: 08/21/2024 ACCESSION NUMBER(S): [id number] ORDERING CLINICIAN: JOAQUIM GALLOWAY FINDINGS: Median sternotomy wires present CARDIOMEDIASTINAL SILHOUETTE: Cardiomediastinal silhouette is normal in size and configuration. LUNGS: The lungs are hyperinflated. There is bilateral small pleural effusions. Associated atelectasis. ABDOMEN: No remarkable upper abdominal findings. BONES: No acute osseous changes. IMPRESSION: 1. Bilateral small pleural effusions with atelectatic changes MACRO: None Signed by: Ayo Rey 10/08/2024 6:25 PM Dictation workstation: [id number] [facility] CT ANGIO CHEST W AND WO IV C [facility] 09-30-2024 CT ANGIO CHEST W AND WO IV CONTRAST Interpreted By: Hung Currie, STUDY: CT ANGIO CHEST W AND WO IV CONTRAST; 09/30/2024 1:25 pm INDICATION: Signs/Symptoms:s/p asc aorta replacement. ,I71.21 Aneurysm of the ascending aorta, without rupture (CMS-HCC) COMPARISON: None. ACCESSION NUMBER(S): [id number] ORDERING CLINICIAN: JOAQUIM GALLOWAY TECHNIQUE: Using multi-detector CT technology, axial, sequential [...] bilateral renal arteries are normal in caliber. GREEN PIPEFITTER MEASUREMENTS OF THE AORTA: Annulus x cm [...] in morphology. No calcifications. MITRAL VALVE: No thickening/calcificati on. PERICARDIUM: There is no pericardial effusion or [...] Hung Currie 09/30/2024 3:06 PM Dictation workstation: [id number] [facility] Comment on above: Order Comment: GATED CTA CHEST PLEASE CTA Chest vessels WO and W andree ontrast Benigno 09-30-2024 1. Findings consiste nt with postsurgical changes of valve sparing ascending aorta interposition graft. 2. There is a small amount of postsurgical perigraft fluid without evidence of leak/extravasation. 3. Postsurgical moderate-sized bilateral pleural effusions with basilar atelectasis. MACRO: None Signed by: Hung Currie 09/30/2024 3:06 PM Dictation workstation: [id number] [facility] Interpreted By: Hung Currie, STUDY: CT ANGIO CHEST W AND WO IV CONTRAST; 09/30/2024 1:25 pm INDICATION: Signs/Symptoms:s/p asc aorta replacement. ,I71.21 Aneurysm of the ascending aorta, without rupture ([facility]) COMPARISON: None. ACCESSION NUMBER(S): [id number] ORDERING CLINICIAN: JOAQUIM GALLOWAY TECHNIQUE: Using multi-detector CT technology, axial, sequential [...] bilateral renal arteries are normal in caliber. GREEN PIPEFITTER MEASUREMENTS OF THE AORTA: Annulus x cm [...] in morphology. No calcifications. MITRAL VALVE: No thickening/calcificati on. PERICARDIUM: There is no pericardial effusion or [...] Postsurgical changes consistent with recent median sternotomy. MMODAL Jacob Currie MD - 09/30/2024 Interpreted By: Hung Currie, STUDY: CT ANGIO CHEST W AND WO IV CONTRAST; 09/30/2024 1:25 pm INDICATION: Signs/Symptoms:s/p asc aorta replacement. ,I71.21 Aneurysm of the ascending aorta, without rupture ([facility]) COMPARISON: None. ACCESSION NUMBER(S): [id number] ORDERING CLINICIAN: JOAQUIM GALLOWAY TECHNIQUE: Using multi-detector CT technology, axial, sequential [...] bilateral renal arteries are normal in caliber. GREEN PIPEFITTER MEASUREMENTS OF THE AORTA: Annulus x cm [...] in morphology. No calcifications. MITRAL VALVE: No thickening/calcificati on. PERICARDIUM: There is no pericardial effusion or [...] Hung Currie 09/30/2024 3:06 PM Dictation workstation: [id number] [facility] Work Phone: Radiology Study observation (narrative) [facility] Work Phone: CTA Chest vessels WO and W c ontrast IVOrdered By: Jacob Currie on 09-30-2024 [facility] Work Phone: Chest Insp/Exp 2 Viewon 09-09 Chest Insp/Exp 2 View [facility] Services [address] [place] [address] Chest Insp/Exp 2 View MR#: [id number] Acct: [id number] Name: KARLA CAI Rep #: [id number] : 1950 F 73 From: Tan lechuga MD PCP: Dr. Jae Belcher MD Status: REG CLI Study: Chest Insp/Exp 2 View Date of Exam: 09/23/24 Exam# [id number] Ordering Dr: Tan Willis [id number] STUDY: X-RAY CHEST REASON FOR EXAM: Female, 73 years old. Post thora TECHNIQUE: AP inspiration and expiration views. COMPARISON: Comparison is made with prior study dated March 22, 2025. FINDINGS: The patient is status post left thoracentesis. No evidence of pneumothorax. Residual bibasilar pleural-parenchymal changes. RAD/Chest Insp/Exp 2 View IMPRESSION: Status post left thoracentesis. No evidence of pneumothorax. Electronically Signed: Tan Willis MD at 12:53 EST , CC: Dr. Tan Willis MD; Dr. Jae Belcher MD Biscuit Packer: Signed Normal [facility] Operative Reporton Operative Report [facility] Medical Records Department [address] [place] [address] Operative Report 09/23/24 1259 MR#: [id number] Acct: [id number] Name: KARLA CAI Rep #: [id number] : 1950 73 From: Christina Chapman NP BRICK OFF BEARER-C PCP: Dr. Jae Belcher MD Status:REG CLI Location: US Problems Associated Problem List Diagnoses (1) Bilateral pleural effusion: Multi Select C[facility] Radiology Radiology US Procedures: 87910 Thoracentesis Operative Report (Standard) Operative Information Date of Procedure: 09/23/24 Pre-Operative Diagnosis: Pleural effusion Post-Operative Diagnosis: Pleural effusion Surgery/Procedure Performed: Ultrasound-guided thoracentesis manager strategic alliances: No Type of Anesthesia: Local Procedure Start Time: 12:16 Procedure Stop Time: 12:30 Select all DRAINS/GRAFTS/IMPLANTS that apply: None Estimated Blood Loss: 0 Specimen collected: Yes Description of specimen(s) removed: 100 cc of pleural fluid sent to lab Description of surgery: PROCEDURE: Ultrasound Guided Thoracentesis ORDERING PROVIDER: WILY Pickens INDICATION: Female, 73 years old. Pleural effusion. PROVIDER: Christina Chapman CNP PROCEDURE: The risks, benefits, and alternatives to the procedure were explained to the patient. The specific risks of bleeding, infection, and pneumothorax requiring chest tube insertion were discussed and accepted. Written informed consent was obtained. The patient was placed in the sitting, upright position. Ultrasonographic evaluation of the bilateral lower pleural spaces was carried out. An adequate pocket was identified in the left lung. The overlying skin was prepped with chlorhexidine and draped in sterile fashion. 2 % lidocaine was administered subcutaneously for local anesthesia. Under ultrasound guidance, a 5- Belgian thoracentesis needle/catheter system was advanced into the left posterior lower pleural fluid collection. 620 ml of red colored fluid was drained. The catheter was removed, and a sterile dressing was applied. The patient tolerated the procedure well. A chest x-ray was ordered. IMPRESSION: Successful ultrasound guided thoracentesis of left pleural effusion. Surgical Findings: None Complications Complications: No 09/23/24 1302 Cosigner Signature (if applicable): CC: CHRISTIAN Chapman; Dr. Jae Belcher MD; WILY Hernandez Signed Normal [facility] Special Stain Group IIon Special Stain Group II ----- ---- Patient Age/Sex Location Account Attending Physician ---- KARLA CAI 73/F [id number] WILY Hernandez ---- Specimen: [id number] Received: 09/23/24 Status: ALEJANDRODeja Templeton Num: [id number] Spec Type: Fluid Subm Dr: WILY Hernandez HEADER OPERATION: Ultrasound guided thoracentesis PRE-OP DIAGNOSIS: Pleural effusion TISSUE SUBMITTED: Thoracentesis fluid for cytology ---- DIAGNOSIS CYTOLOGY Thoracentesis fluid for cytology (cytospins and cellblock): Negative for malignant cells. See comment. SJ.mr 09/25/2024 COMMENT Clinical correlation and appropriate follow up are necessary. CYTOLOGY STUDY Slides are reviewed. CYTOLOGY GROSS Received is 100 ml of dark-red cloudy fluid labeled with the patient's name and and designated per the requisition as Thoracentesis fluid. Submitted for cytology preparation including cell block. Mr 09/24/2024 TC:5 CPT: 72403,80079 Signed (signature on file) Dr. Yogi Luciano MD 09/25/24 1254 ---- Normal [facility] Comment on above: Performed By: #### P SSII #### [facility] Laboratory [address] [place], [place], [address] Chest Insp/Exp 2 Viewon 09-09 Chest Insp/Exp 2 View [facility] Imaging Services [address] [place], [place] [address] Chest Insp/Exp 2 View MR#: [id number] Acct: [id number] Name: KARLA CAI Rep #: [id number] : 1950 F 73 From: Tan lechuga MD PCP: Dr. Jae Belcher MD Status: REG CLI Study: Chest Insp/Exp 2 View Date of Exam: 09/22/24 Exam# [id number] Ordering Dr: Christina Chapman BRICK OFF BEARER BRICK [employer] BEARER-C [id number] STUDY: X-RAY CHEST REASON FOR EXAM: Female, 73 years old. Post thoracentesis TECHNIQUE: AP inspiration and expiration views. COMPARISON: Comparison is made with prior study dated September 15, 2024. FINDINGS: The patient is status post right thoracentesis. No evidence of pneumothorax. Residual right pleural parenchymal changes. Small to moderate size left pleural effusion with left basilar atelectasis. RAD/Chest Insp/Exp 2 View IMPRESSION: Status post right thoracentesis. No evidence of pneumothorax. Residual pleural-parenchymal changes. Electronically Signed: Tan Willis MD at 8:55 EST Reading Location ID and State: [facility] / [place] , Service support , CC: CHRISTIAN Chapman; Dr. Jae Belcher MD Biscuit Packer: Signed Normal [facility] Operative Reporton 5 Operative Report [facility] Medical Records Department [address] [place] [address] Operative Report 09/22/24 0840 MR#: [id number] Acct: [id number] Name: KARLA CAI Rep #: [id number] : 1950 73 From: Christina GONZALES PCP: Dr. Jae Belcher MD Status:REG CLI Location: US Problems Associated Problem List Diagnoses (1) Bilateral pleural effusion: Multi Select Codes Radiology Radiology US Procedures: 20089 Thoracentesis Operative Report (Standard) Operative Information Date of Procedure: 09/22/24 Pre-Operative Diagnosis: Pleural effusion Post-Operative Diagnosis: Pleural effusion Surgery/Procedure Performed: Ultrasound-guided thoracentesis manager strategic alliances: No Type of Anesthesia: Local Procedure Start Time: 08:18 Procedure Stop Time: 08:30 Select all DRAINS/GRAFTS/IMPLANTS that apply: None Estimated Blood Loss: 0 Specimen collected: No Description of surgery: PROCEDURE: Ultrasound Guided Thoracentesis ORDERING PROVIDER: WILY Vazquez INDICATION: Female, 73 years old. Pleural effusion. PROVIDER: Christina Chapman CNP PROCEDURE: The risks, benefits, and alternatives to the procedure were explained to the patient. The specific risks of bleeding, infection, and pneumothorax requiring chest tube insertion were discussed and accepted. Written informed consent was obtained. The patient was placed in the sitting, upright position. Ultrasonographic evaluation of the bilateral lower pleural spaces was carried out. An adequate pocket was identified in the right. The overlying skin was prepped with chlorhexidine and draped in sterile fashion. 2 % lidocaine was administered subcutaneously for local anesthesia. Under ultrasound guidance, a 5- Belgian thoracentesis needle/catheter system was advanced into the right posterior lower pleural fluid collection. 1270 ml of red colored fluid was drained. The catheter was removed, and a sterile dressing was applied. The patient tolerated the procedure well. A chest x-ray was ordered. IMPRESSION: Successful ultrasound guided thoracentesis of right pleural effusion. Surgical Findings: None Complications Complications: No 09/22/24 0853 Cosigner Signature (if applicable): CC: CHRISTIAN Chapman; Dr. Jae Belcher MD; WILY Hernandez Signed Normal [facility] 12 Lead EKG performed by [facility] on 09-16-2024 12 Lead EKG performed by [place] [place] [address] [place] [address] 12 Lead EKG performed by [facility] 09/16/24 0751 MR#: [id number] Acct: [id number] Name: KARLA CAI Rep #: [id number] : 1950 73 From: Mendoza Christie Attending Dr: WILY Hernandez Status: DEP AMB Ordering Dr: Mendoza Boogie Date: 05/03 Location: [facility] Sex: F C Admitted: BMS/12 Lead EKG performed by [facility] ECG Report Interpretation ----Sinus Rhythm Low voltage in precordial leads. -Left atrial enlargement. -Anterior infarct -age undetermined. - T-abnormality -Possible Anterolateral and inferior ischemia. ABNORMAL Electronically signed on 09/16/2024 at 14:41 by [employer] Version [id number] 09/16/24 1443 Date Mendoza JULIEN CC: Dr. Jae Belcher MD Date Dictated: 09/16/24750 Date Transcribed: 09/16/24750 Biscuit Packer: GO Signed Normal [facility] Basic Metabolic Profile (BMP )on 09-16-2024 BUN/CRE 41.2 RATIO High 10-20 [facility] Comment on above: Performed By: #### L 500.2500 #### [facility] Laboratory [address] [place], [address] CA,Total 9.1 mg/dL Normal 8.5-10.1 [facility] Comment on above: Performed By: #### L 500.2500 #### [facility] [address] [place], [address] Chloride [Moles/Vol] 108 mmol/L High 98-107 [facility] Comment on above: Performed By: #### L 500.2500 #### [facility] [address] [place], [address] CO2 [Moles/Vol] 27.0 mmol/L Normal 21.0-32.0 [facility] Comment on above: Performed By: #### L 500.2500 #### [facility] [address] [place], [address] Creatinine [Mass/Vol] 0.78 mg/dL Normal 0.55-1.02 [facility] Comment on above: Result Comment: The validity of the calculated GFR GFRAA in patients over 70 years has not been determined. Clinical correlation is essential. Performed By: #### L 500.2500 #### [facility] [address] [place], [address] EST GFR - AA 93 mL/min Normal >60 [facility] Comment on above: Result Comment: Afri can Tunisian GFR Calc Performed By: #### L 500.2500 #### [facility] [address] [place], [address] GAP 6 Normal 5-15 [facility] Comment on above: Performed By: #### L 500.2500 #### [facility] [address] [place], [address] GFR/1.73 sq M.predicted among non-blacks MDRD (S/P/Bld) [Vol rate/Area] 77 mL/min/{1.73_m2} Normal >60 [facility] Comment on above: Result Comment: Non- GFR Calc Performed By: #### L 500.2500 #### [facility] [address] [place], [address] Glucose [Mass/Vol] 117 mg/dL High 74-106 [facility] Comment on above: Result Comment: Fast ing Glucose result from 100 to 125 mg/dL suggests IMPAIRED HOMEOSTASIS per A.D.A. criteria. Performed By: #### L 500.2500 #### [facility] [address] [place], [address] Potassium [Moles/Vol] 3.7 mmol/L Normal 3.5-5.1 [facility] Comment on above: Performed By: #### L 500.2500 #### [facility] [address] [place], [place], [address] Sodium [Moles/Vol] 141 mmol/L Normal 136-145 [facility] Comment on above: Performed By: #### L 500.2500 #### [facility] [address] [place], [place], [address] Urea nitrogen [Mass/Vol] 32 mg/dL High 7-18 [facility] Comment on above: Performed By: #### L 500.2500 #### [facility] [address] [place], [place], [address] Blood urea nitrogen (BUN)/cr eatinine ratioOrdered By: Mendoza Boogie on 09-16-2024 Urea nitrogen/Creatinine [Mass ratio] 41.2 mg/mg High 10-20 [facility] Carbon dioxide measurementOr dered By: Mendoza Boogie on 09-16-2024 CO2 [Moles/Vol] 27.0 mmol/L 21.0-32.0 [facility] Cardiology Visit Reporton Cardiology Visit Report [facility] [address] [place], [place] [address] OFFICE VISIT Date of Service: 09/16/24 MR#: [id number] Acct: [id number] Name: KARLA CAI Rep #: [id number] : 1950 Provider: WILY Ortega Age/Sex: 73/F Location: [facility] Status: Signed HPI HPI History of Present Illness Details: Karla Cai is a 73-year-old female that presents here today for a cardiovascular follow-up with a history of an ascending aortic aneurysm, moderate mitral valve insuff and hypertension. Patient aortic aneurysm was being followed by Dr. Alberto, it was noted to be greater than 5 mm, she was referred to for aortic aneurysm replacement. On August 10, 2024 patient underwent an aortic aneurysm replacement with a Gelweave 30 mm, EDD C40 5 mm meter atrial clip. Postoperatively was complicated by new onset of left bundle branch block, atrial for with RVR, accelerated junctional rhythm, anemia requiring transfusion, respiratory failure with moderate ards requiring Airvo and a large pleural effusion with thoracentesis which had 850 cc removed. She was discharged home on amiodarone twice a day for 10 days then once a day for 20 days, apixaban, furosemide, metoprolol. Patient was seen 2 weeks ago and was noted to still have shortness of breath and significant lower extremity edema. She did require a thoracentesis in her right and left lobe. Chest x-ray done yesterday demonstrates that pleural effusions have returned although they are not as significant as before. Patient does feel better however she still does have fatigue. She is short of breath but does feel it is better. She does have an appointment at the end of the month with the CT surgeon. She does not have any lower extremity edema. She does have a cough and wonders if it is from her pleural effusions. EKG today demonstrates sinus rhythm with a heart rate of 65. Left atrial enlargement, anterior infarct, age undetermined, T wave abnormality, possible anterolateral and inferior ischemia. Similar to previous. Intake Vital Signs 03/11/24 14:35 09/03/24 07:27 09/16/24 10:29 Height 5 ft 9 in 5 ft 9 in 5 ft 9 in Weight: 159 lb BMI 23.4 BP 105/66 Blood Pressure Location Rt brachial Position Sitting Respiration 18 Pulse 67 Pulse Source Monitor Pulse Oximetry (%) 95 Intake Visit Reasons: 6 m fu Rope Tier Required: No Is patient in pain?: No Allergies adhesive tape Allergy (Intermediate, Verified 09/16/24 10:29) Itching Environmental Allergies: Uncoded Allergy (Verified 09/16/24 10:29) Itching amlodipine Adverse Reaction (Severe, Verified 09/16/24 10:29) pedal edema lisinopril Adverse Reaction (Severe, Verified 09/16/24 10:29) Cough doxazosin Adverse Reaction (Unknown, Verified 09/16/24 10:29) dizzy, loopy meloxicam Adverse Reaction (Unknown, Verified 09/16/24 10:29) kidney problems Medications ???Medication ???Instructions ???Recorded ???Confirmed ???Type olopatadine 0.1 % eye drops 1 drp ophthalmic (eye) BID PRN 04/30/19 09/16/24 History multivitamin 1 tab PO DAILY 03/11/24 09/16/24 History pravastatin 20 mg tablet 20 mg PO QDAY 03/11/24 09/16/24 History vit C 250 mg-vit E 90 mg-zinc 40 1 tab PO BID 03/11/24 09/16/24 History mg-copper 1 [id number] capsule (PreserVision AREDS-2) amiodarone 200 mg tablet 200 mg PO QDAY 09/03/24 09/16/24 History aspirin 81 mg tablet,delayed 81 mg PO QDAY 09/03/24 09/16/24 History release (Adult Low Dose Aspirin) beta carotene 10,000 unit capsule 7,500 mcg PO QDAY 09/03/24 09/16/24 History fluticasone propionate 50 1 spray intranasal QDAY 09/03/24 09/16/24 History mcg/actuation nasal spray,suspension loratadine 10 mg capsule (Allergy 10 mg PO QDAY PRN 09/03/24 09/16/24 History Relief (loratadine)) metoprolol tartrate 25 mg tablet 25 mg PO BID 09/03/24 09/16/24 History oxycodone 5 mg capsule 5 mg PO BID PRN 09/03/24 09/16/24 History spironolactone 25 mg tablet 25 mg PO DAILY #30 tabs 09/03/24 09/16/24 Rx vitamin B complex-folic acid 1 tab PO DAILY 09/03/24 09/16/24 History mg-vit C 60 mg-biotin 300 mcg tablet furosemide 40 mg tablet 40 mg PO QAM 09/04/24 09/16/24 History potassium chloride 10 mEq 20 meq (2 x 10 mEq) PO DAILY #60 09/11/24 09/16/24 Rx capsule,extended release caps apixaban 5 mg tablet 5 mg PO BID #180 tabs 09/16/24 09/16/24 Rx Have you fallen in the past year?: No PFSH Medical History Bilateral pleural effusion Postoperative atrial fibrillation Mitral valve insufficiency Thoracic aortic aneurysm without rupture Breast cancer Essential hypertension Hypokalemia Acute diverticulitis Surgical History ... Normal [facility] Chloride measurementOrdered By: Mendoza Boogie on 09-16-2024 Chloride [Moles/Vol] 108 mmol/L High 98-107 [facility] Estimated glomerular filtrat ion rate (GFR) AmericanOrdered By: Mendoza Boogie on 09-16-2024 Estimated GFR (MDRD) Amer 93 mL/min >60 [facility] Comment on above: GFR Calc Glomerular filtration rate ( GFR) estimationOrdered By: Mendoza Boogie on 09-16-2024 Estimated GFR (MDRD) Non-Af Amer 77 mL/min >60 [facility] Comment on above: Non- GFR Calc Glucose measurementOrdered B y: Mendoza Boogie on 09-16-2024 Glucose [Mass/Vol] 117 mg/dL High 74-106 [facility] Comment on above: Fasting Glucose resu lt from 100 to 125 mg/dL suggests IMPAIRED HOMEOSTASIS per A.D.A. criteria. Potassium measurementOrdered By: Mendoza Boogie on 09-16-2024 Potassium [Moles/Vol] 3.7 mmol/L 3.5-5.1 [facility] Serum anion gap measurementO rdered By: Mendoza Boogie on 09-16-2024 Anion gap [Moles/Vol] 6 mmol/L 5-15 [facility] Serum or plasma calcium jillian urement (mass/volume)Ordered By: Mendoza Boogie on 09-16-2024 Calcium [Mass/Vol] 9.1 mg/dL 8.5-10.1 [facility] Serum or plasma creatinine m easurement (mass/volume)Ordered By: Mendoza Boogie on 09-16-2024 Creatinine [Mass/Vol] 0.78 mg/dL 0.55-1.02 [facility] Comment on above: The validity of the calculated GFR & GFRAA in patients over 70 years has not been determined. Clinical correlation is essential. Serum or plasma urea nitroge n measurement (mass/volume)Ordered By: Mendoza Boogie on 09-16-2024 Urea nitrogen [Mass/Vol] 32 mg/dL High 7-18 [facility] Sodium levelOrdered By: Ten Boogie on 09-16-2024 Sodium [Moles/Vol] 141 mmol/L 136-145 [facility] Chest PA and Lateralon 09-15 Chest PA and Lateral [facility] Imaging Services [address] [place], [place] [address] Chest PA and Lateral MR#: [id number] Acct: [id number] Name: KARLA CAI Rep #: [id number] : 1950 F 73 From: Joanne angela MD PCP: Dr. Jae Belcher MD Status: REG CLI Study: Chest PA and Lateral Date of Exam: 09/15/24 Exam# [id number] Ordering Dr: Mendoza Boogie [place] [id number] HISTORY: Pleural effusion. TECHNIQUE: XR Chest 2 Views. COMPARISON: 09/08/2024. FINDINGS: CARDIOMEDIASTINAL BORDERS: Cardiac silhouette within normal limits in size with closure device again seen. Mediastinal contour also unchanged with midline sternotomy and calcification of the aortic knob. LUNGS: Mild linear bibasilar opacities again seen. PLEURA: Persistent bilateral pleural effusions. OSSEOUS STRUCTURES: Degenerative change. RAD/Chest PA and Lateral IMPRESSION: Persistent bilateral pleural effusions with bibasilar atelectasis. Electronically Signed: Joanne Stewart MD at 11:52 EST , CC: Dr. Jae Belcher MD; WILY Hernandez Biscuit Packer: Signed Normal [facility] Basic Metabolic Profile (BMP )on 09-11-2024 BUN/CRE 32.9 RATIO High 10-20 [facility] Comment on above: Performed By: #### L 500.2500 #### [facility] [address] [place], [place], [address] CA,Total 8.6 mg/dL Normal 8.5-10.1 [facility] Comment on above: Performed By: #### L 500.2500 #### [facility] [address] [place], [address] Chloride [Moles/Vol] 105 mmol/L Normal 98-107 [facility] Comment on above: Performed By: #### L 500.2500 #### [facility] [address] [place], [address] CO2 [Moles/Vol] 30.0 mmol/L Normal 21.0-32.0 [facility] Comment on above: Performed By: #### L 500.2500 #### [facility] [address] [place], [address] Creatinine [Mass/Vol] 0.97 mg/dL Normal 0.55-1.02 [facility] Comment on above: Result Comment: The validity of the calculated GFR GFRAA in patients over 70 years has not been determined. Clinical correlation is essential. Performed By: #### L 500.2500 #### [facility] [address] [place], [address] EST GFR - AA 72 mL/min Normal >60 [facility] Comment on above: Result Comment: Afri can Tunisian GFR Calc Performed By: #### L 500.2500 #### [facility] [address] [place], [address] GAP 6 Normal 5-15 [facility] Comment on above: Performed By: #### L 500.2500 #### [facility] [address] [place], [address] GFR/1.73 sq M.predicted among non-blacks MDRD (S/P/Bld) [Vol rate/Area] 59 mL/min/{1.73_m2} Low >60 [facility] Comment on above: Result Comment: Non- GFR Calc Performed By: #### L 500.2500 #### [facility] [address] [place], [address] Glucose [Mass/Vol] 106 mg/dL Normal 74-106 [facility] Comment on above: Result Comment: Fast ing Glucose result from 100 to 125 mg/dL suggests IMPAIRED HOMEOSTASIS per A.D.A. criteria. Performed By: #### L 500.2500 #### [facility] [address] [place], [address] Potassium [Moles/Vol] 3.1 mmol/L Low 3.5-5.1 [facility] Comment on above: Performed By: #### L 500.2500 #### [facility] [address] [place], [address] Sodium [Moles/Vol] 141 mmol/L Normal 136-145 [facility] Comment on above: Performed By: #### L 500.2500 #### [facility] [address] [place], [address] Urea nitrogen [Mass/Vol] 32 mg/dL High 7-18 [facility] Comment on above: Performed By: #### L 500.2500 #### [facility] [address] [place], [address] Blood urea nitrogen (BUN)/cr eatinine ratioOrdered By: Mendoza Boogie on 09-11-2024 Urea nitrogen/Creatinine [Mass ratio] 32.9 mg/mg High 10-20 [facility] Carbon dioxide measurementOr dered By: Mendoza Boogie on 09-11-2024 CO2 [Moles/Vol] 30.0 mmol/L 21.0-32.0 [facility] Chloride measurementOrdered By: Mendoza Boogie on 09-11-2024 Chloride [Moles/Vol] 105 mmol/L 98-107 [facility] Estimated glomerular filtrat ion rate (GFR) AmericanOrdered By: Mendoza Boogie on 09-11-2024 Estimated GFR (MDRD) Amer 72 mL/min >60 [facility] Comment on above: GFR Calc Glomerular filtration rate ( GFR) estimationOrdered By: Mendoza Boogie on 09-11-2024 Estimated GFR (MDRD) Non-Af Amer 59 mL/min Low >60 [facility] Comment on above: Non- GFR Calc Glucose measurementOrdered B y: Mendoza Boogie on 09-11-2024 Glucose [Mass/Vol] 106 mg/dL 74-106 [facility] Comment on above: Fasting Glucose resu lt from 100 to 125 mg/dL suggests IMPAIRED HOMEOSTASIS per A.D.A. criteria. Potassium measurementOrdered By: Mendoza Boogie on 09-11-2024 Potassium [Moles/Vol] 3.1 mmol/L Low 3.5-5.1 [facility] Serum anion gap measurementO rdered By: Mendoza Boogie on 09-11-2024 Anion gap [Moles/Vol] 6 mmol/L 5-15 [facility] Serum or plasma calcium jillian urement (mass/volume)Ordered By: Mendoza Boogie on 09-11-2024 Calcium [Mass/Vol] 8.6 mg/dL 8.5-10.1 [facility] Serum or plasma creatinine m easurement (mass/volume)Ordered By: Mendoza Boogie on 09-11-2024 Creatinine [Mass/Vol] 0.97 mg/dL 0.55-1.02 [facility] Comment on above: The validity of the calculated GFR & GFRAA in patients over 70 years has not been determined. Clinical correlation is essential. Serum or plasma urea nitroge n measurement (mass/volume)Ordered By: Mendoza Boogie on 09-11-2024 Urea nitrogen [Mass/Vol] 32 mg/dL High 7-18 [facility] Sodium levelOrdered By: Ten Boogie on 09-11-2024 Sodium [Moles/Vol] 141 mmol/L 136-145 [facility] Chest Insp/Exp 2 Viewon 12-3 Chest Insp/Exp 2 View [facility] Imaging Services [address] [place], [place] [address] Chest Insp/Exp 2 View MR#: [id number] Acct: [id number] Name: TRELLKARLA EDWARD Rep #: [id number] : 1950 F 73 From: Chris Arenas MD PCP: Dr. Jae Belcher MD Status: REG CLI Study: Chest Insp/Exp 2 View Date of Exam: 09/08/24 Exam# [id number] Ordering Dr: Christina Chapman NP [employer]ER-C [id number] STUDY: X-RAY CHEST REASON FOR EXAM: Female, 73 years old. Postthoracentesis TECHNIQUE: 2 AP portable views COMPARISON: Yesterday FINDINGS: No postprocedural pneumothorax No interval change in the size of the previously noted pleural effusions with likely associated atelectasis. Normal size heart. Normal mediastinum and cristhian. Normal visualized pulmonary arteries. Normal visualized aortic arch and descending thoracic aorta. Normal visualized thoracic spine. Normal visualized ribs, clavicles, and shoulders. There is no demonstrated abnormality of the visualized soft tissue structures of the upper abdomen. RAD/Chest Insp/Exp 2 View IMPRESSION: No postprocedural pneumothorax No interval change in the appearance of the lungs since the previous study, persistent bilateral pleural effusions with bibasilar atelectasis Electronically Signed: Tomas Arenas MD at 12:14 EST , CC: BR[employer]-Andree Chapman; Dr. Jae Belcher MD Biscuit Packer: Signed Normal [facility] Operative Reporton 4 Operative Report [facility] Medical Records Department [address] [place] [address] Operative Report 09/08/24 1157 MR#: [id number] Acct: [id number] Name: KARLA CAI Rep #: [id number] : 1950 73 From: Christina Chapman NP, NP-C PCP: Dr. Jae Belcher MD Status:REG CLI Location: US Problems Associated Problem List Diagnoses (1) Bilateral pleural effusion: Multi Select Codes Radiology Radiology US Procedures: 07122 Thoracentesis Operative Report (Standard) Operative Information Date of Procedure: 09/08/24 Pre-Operative Diagnosis: Pleural effusion Post-Operative Diagnosis: Pleural effusion Surgery/Procedure Performed: Ultrasound guided thoracentesis manager strategic alliances: No Type of Anesthesia: Local Procedure Start Time: 11:41 Procedure Stop Time: 11:53 Select all DRAINS/GRAFTS/IMPLANTS that apply: None Estimated Blood Loss: 0 Specimen collected: Yes Description of specimen(s) removed: 100 cc sent to lab Description of surgery: PROCEDURE: Ultrasound Guided Thoracentesis ORDERING PROVIDER: WILY Vazquez INDICATION: Female, 73 years old. Pleural effusion. PROVIDER: Christina Chapman CNP PROCEDURE: The risks, benefits, and alternatives to the procedure were explained to the patient. The specific risks of bleeding, infection, and pneumothorax requiring chest tube insertion were discussed and accepted. Written informed consent was obtained. The patient was placed in the sitting, upright position. Ultrasonographic evaluation of the bilateral lower pleural spaces was carried out. An adequate pocket was identified in the left lower lobe. The overlying skin was prepped with chlorhexidine and draped in sterile fashion. 2 % lidocaine was administered subcutaneously for local anesthesia. Under ultrasound guidance, a 5- Belgian thoracentesis needle/catheter system was advanced into the left posterior lower pleural fluid collection. 1010 ml of red colored fluid was drained. The catheter was removed, and a sterile dressing was applied. The patient tolerated the procedure well. A chest x-ray was ordered. IMPRESSION: Successful ultrasound guided thoracentesis of left pleural effusion. Surgical Findings: none Complications Complications: No 09/08/24 1201 Cosigner Signature (if applicable): CC: BRICK OFF BEARERLavinia Chapman; Dr. Jae Belcher MD; WILY Hernandez Signed Normal [facility] Special Stain Group IIon Special Stain Group II ----- ---- Patient Age/Sex Location Account Attending Physician ---- KARLA CAI 73/F [id number] WILY Hernandez ---- Specimen: [id number] Received: 09/08/24-120 Status: SOFIE [place] Num: [id number] Spec Type: Fluid Subm Dr: WILY Hernandez HEADER OPERATION: Ultrasound guided thoracentesis fluid PRE-OP DIAGNOSIS: Bilateral pleural effusion TISSUE SUBMITTED: Thoracentesis fluid for cytology ---- DIAGNOSIS CYTOLOGY Thoracentesis fluid for cytology (cytospins and cellblock): Negative for malignant cells. Bloody specimen. See comment. SJ.mr 09/10/2024 COMMENT Correlation with clinical, radiologic findings and appropriate follow up are necessary. CYTOLOGY STUDY Slides are reviewed. CYTOLOGY GROSS Received is 100 ml of dark red fluid labeled with the patient's name and and designated per the requisition as Thoracentesis fluid. Submitted for cytology preparation including cell block. Mr 09/08/2024 TC:5 CPT: 85724,60815 Signed (signature on file) Dr. Yogi Luciano MD 09/10/24 1042 ---- Normal [facility] Comment on above: Performed By: #### P SSII ####[facility] [address] [facility] [place], [place], [id number] Chest Insp/Exp 2 Viewon 12-3 Chest Insp/Exp 2 View [facility] Imaging Services [address] [place], [place] [address] Chest Insp/Exp 2 View MR#: [id number] Acct: [id number] Name: KARLA ACI Rep #: [id number] : 1950 F 73 From: Chris Arenas MD PCP: Dr. Jae Belcher MD Status: REG CLI Study: Chest Insp/Exp 2 View Date of Exam: 09/07/24 Exam# [id number] Ordering Dr: Christina Chapman BRICK OFF BEARER BRICK OFF BEARER-C [id number] STUDY: X-RAY CHEST REASON FOR EXAM: Female, 73 years old. Postthoracentesis TECHNIQUE: 2 AP portable views COMPARISON: 09/03/2024 FINDINGS: No postprocedural pneumothorax noted. Lungs are expanded with persistent and essentially unchanged bilateral pleural effusions with likely associated atelectasis. Sternal cerclage wires and vascular clips are present from a prior sternotomy and coronary artery bypass graft procedure (CABG). Normal mediastinum and cristhian. Normal visualized pulmonary arteries. Normal visualized aortic arch and descending thoracic aorta. Normal visualized thoracic spine. Normal visualized ribs, clavicles, and shoulders. There is no demonstrated abnormality of the visualized soft tissue structures of the upper abdomen. RAD/Chest Insp/Exp 2 View IMPRESSION: No postprocedural pneumothorax Despite apparent thoracentesis, the bilateral pleural effusions are essentially unchanged from 09/03/2024. Electronically Signed: Tomas Arenas MD at 8:56 EST , CC: CHRISTIAN Chapman; Dr. Jae Belcher MD Biscuit Packer: Signed Normal [facility] Operative Reporton Operative Report [facility] Medical Records Department [address] [place] [address] Operative Report 09/07/24 0820 MR#: [id number] Acct: [id number] Name: KARLA CAI Rep #: [id number] : 1950 73 From: Christina GONZALES PCP: Dr. Jae Belcher MD Status:REG CLI Location: US Problems Associated Problem List Diagnoses (1) Bilateral pleural effusion: Multi Select Codes Radiology Radiology US Procedures: 84414 Thoracentesis Operative Report (Standard) Operative Information Date of Procedure: 09/07/24 Pre-Operative Diagnosis: Pleural effusion Post-Operative Diagnosis: Pleural effusion Surgery/Procedure Performed: Ultrasound-guided thoracentesis manager strategic alliances: No Type of Anesthesia: Local Procedure Start Time: 09:05 Procedure Stop Time: 09:18 Select all DRAINS/GRAFTS/IMPLANTS that apply: None Estimated Blood Loss: 0 Specimen collected: No Description of surgery: PROCEDURE: Ultrasound Guided Thoracentesis ORDERING PROVIDER: WILY Vazquez INDICATION: Female, 73 years old. Pleural effusion. PROVIDER: Christina Chapman CNP PROCEDURE: The risks, benefits, and alternatives to the procedure were explained to the patient. The specific risks of bleeding, infection, and pneumothorax requiring chest tube insertion were discussed and accepted. Written informed consent was obtained. The patient was placed in the sitting, upright position. Ultrasonographic evaluation of the bilateral lower pleural spaces was carried out. An adequate pocket was identified in the right lower lobe. The overlying skin was prepped with chlorhexidine and draped in sterile fashion. 2 % lidocaine was administered subcutaneously for local anesthesia. Under ultrasound guidance, a 5- Belgian thoracentesis needle/catheter system was advanced into the posterior lower pleural fluid collection. 1050 ml of red colored fluid was drained. The catheter was removed, and a sterile dressing was applied. The patient tolerated the procedure well. A chest x-ray was ordered. IMPRESSION: Successful ultrasound guided thoracentesis of right pleural effusion. Surgical Findings: None Complications Complications: No 09/07/24 0823 Cosigner Signature (if applicable): CC: CHRISTIAN Chapman; Dr. Jae Belcher MD; WILY Hernandez Signed Normal [facility] 12 Lead EKG performed by [facility] on 09-03-2024 12 Lead EKG performed by [facility] [address] [place] [address] 12 Lead EKG performed by [facility] 09/03/24 1252 MR#: [id number] Acct: [id number] Name: KARLA CAI Rep #: [id number] : 1950 73 From: Mendoza Christie Attending Dr: WILY Hernandez Status: DEP AMB Ordering Dr: Mendoza Boogie Date: 08/10 03/02 Location: [facility] Sex: F C Admitted: BMS/12 Lead EKG performed by [facility] ECG Report Interpretation ----Sinus Rhythm Diffuse low voltage. -Intraventricular conduction defect -consider left ventricular hypertrophy. - Anterior -lateral infarct (age undetermined) -Right axis -may be secondary to infarct. ABNORMAL Electronically signed on 09/06/2024 at 12:06 by Tulio Keenan Software Version [id number] 09/06/24 1209 Date Mendoza JULIEN CC: Dr. Jae Belcher MD Date Dictated: 09/03/24 1252 Date Transcribed: 09/03/24 125 Biscuit Packer: GO Signed Normal [facility] Absolute neutrophil countOrd ered By: Mendoza Boogie on 09-03-2024 Neutrophils (Bld) [#/Vol] 7.0 10*3/uL 2.0-7.7 [facility] Basic Metabolic Profile (BMP )on 09-03-2024 BUN/CRE 35.7 RATIO High 10-20 [facility] Comment on above: Performed By: #### L 100.0100, L500.2500 ####[facility] [address] [place], [address] CA,Total 8.5 mg/dL Normal 8.5-10.1 [facility] Comment on above: Performed By: #### L 100.0100, L500.2500 ####[facility] [address] [place], [address] Chloride [Moles/Vol] 104 mmol/L Normal 98-107 [facility] Comment on above: Performed By: #### L 100.0100, L500.2500 ####[facility] [address] [place], [address] CO2 [Moles/Vol] 27.0 mmol/L Normal 21.0-32.0 [facility] Comment on above: Performed By: #### L 100.0100, L500.2500 ####[facility] [address] [place], [address] Creatinine [Mass/Vol] 0.84 mg/dL Normal 0.55-1.02 [facility] Comment on above: Result Comment: The validity of the calculated GFR GFRAA in patients over 70 years has not been determined. Clinical correlation is essential. Performed By: #### L 100.0100, L500.2500 ####[facility] [address] [place], [address] EST GFR - AA 85 mL/min Normal >60 [facility] Comment on above: Result Comment: Afri can Tunisian GFR Calc Performed By: #### L 100.0100, L500.2500 ####[facility] [address] [place], [address] GAP 7 Normal 5-15 [facility] Comment on above: Performed By: #### L 100.0100, L500.2500 ####[facility] [address] [place], [address] GFR/1.73 sq M.predicted among non-blacks MDRD (S/P/Bld) [Vol rate/Area] 70 mL/min/{1.73_m2} Normal >60 [facility] Comment on above: Result Comment: Non- GFR Calc Performed By: #### L 100.0100, L500.2500 ####[facility] [address] [place], [address] Glucose [Mass/Vol] 119 mg/dL High 74-106 [facility] Comment on above: Result Comment: Fast ing Glucose result from 100 to 125 mg/dL suggests IMPAIRED HOMEOSTASIS per A.D.A. criteria. Performed By: #### L 100.0100, L500.2500 ####[facility] [address] [place], [address] Potassium [Moles/Vol] 3.5 mmol/L Normal 3.5-5.1 [facility] Comment on above: Performed By: #### L 100.0100, L500.2500 ####[facility] [address] [place], [address] Sodium [Moles/Vol] 138 mmol/L Normal 136-145 [facility] Comment on above: Performed By: #### L 100.0100, L500.2500 ####[facility] [address] [place], [address] Urea nitrogen [Mass/Vol] 30 mg/dL High 7-18 [facility] Comment on above: Performed By: #### L 100.0100, L500.2500 ####[facility] [address] [place], [address] Basophil percentageOrdered B y: Mendoza Boogie on 09-03-2024 Basophils/100 WBC (Bld) 0.3 % 0-1 [facility] Blood urea nitrogen (BUN)/cr eatinine ratioOrdered By: Mendoza Boogie on 09-03-2024 Urea nitrogen/Creatinine [Mass ratio] 35.7 mg/mg High 10-20 [facility] CBC W/Diff, Automatedon 12-2 Absolute Lymph 1.10 X10 3/uL Normal 0.83-4.51 [facility] Comment on above: Performed By: #### L 100.0100, L500.2500 #### [facility] [address] [place], [address] Absolute Neut 7.0 X10 3/uL Normal 2.0-7.7 [facility] Comment on above: Performed By: #### L 100.0100, L500.2500 #### [facility] [address] [place], [address] Basophils/100 WBC (Bld) 0.3 % Normal 0-1 [facility] Comment on above: Performed By: #### L 100.0100, L500.2500 #### [facility] [address] [place], [address] Eosinophils/100 WBC (Bld) 3.0 % Normal 0-5 [facility] Comment on above: Performed By: #### L 100.0100, L500.2500 #### [facility] [address] [place], [address] Erythrocyte distribution width (RBC) [Ratio] 16.0 % High 11.6-14.6 [facility] Comment on above: Performed By: #### L 100.0100, L500.2500 #### [facility] [address] [place], [address] Hematocrit (Bld) [Volume fraction] 35.5 % Low 37-47 [facility] Comment on above: Performed By: #### L 100.0100, L500.2500 #### [facility] [address] [place], [address] Hemoglobin (Bld) [Mass/Vol] 11.0 g/dL Low 12.0-15.0 [facility] Comment on above: Performed By: #### L 100.0100, L500.2500 #### [facility] [address] [place], [address] IG% 0.400 Normal 0.0-0.9 [facility] Comment on above: Result Comment: IG% - Immature Granulocytes (promyelocytes, myelocytes and metamyelocytes) > 1% indicates that a LEFT SHIFT is Present. Performed By: #### L 100.0100, L500.2500 #### [facility] [address] [place], [address] Lymphocytes/100 WBC (Bld) 11.9 % Low 19-41 [facility] Comment on above: Performed By: #### L 100.0100, L500.2500 #### [facility] [address] [place], [address] MCH (RBC) [Entitic mass] 28.9 pg Normal 27.0-32.0 [facility] Comment on above: Performed By: #### L 100.0100, L500.2500 #### [facility] [address] [place], [address] MCHC (RBC) [Mass/Vol] 31.0 g/dL Low 32-36 [facility] Comment on above: Performed By: #### L 100.0100, L500.2500 #### [facility] [address] [place], [address] MCV (RBC) [Entitic vol] 93.2 fL Normal 81-99 [facility] Comment on above: Performed By: #### L 100.0100, L500.2500 #### [facility] [address] [place], [address] Monocytes/100 WBC (Bld) 8.3 % Normal 0-10 [facility] Comment on above: Performed By: #### L 100.0100, L500.2500 #### [facility] [address] [place], [address] Neutrophils/100 WBC (Bld) 76.1 % High 47-70 [facility] Comment on above: Performed By: #### L 100.0100, L500.2500 #### [facility] [address] [place], [address] Nucleated RBC (Bld) [#/Vol] 0 10*3/uL Normal 0-5 [facility] Comment on above: Performed By: #### L 100.0100, L500.2500 #### [facility] [address] [place], [address] Platelet mean volume (Bld) [Entitic vol] 8.3 fL Normal 6.2-12.0 [facility] Comment on above: Performed By: #### L 100.0100, L500.2500 #### [facility] [address] [place], [address] Platelets (Bld) [#/Vol] 691 10*3/uL High 150-450 [facility] Comment on above: Performed By: #### L 100.0100, L500.2500 #### [facility] [address] [place], [address] RBC (Bld) [#/Vol] 3.81 10*6/uL Low 4.2-5.4 [facility] Comment on above: Performed By: #### L 100.0100, L500.2500 #### [facility] [address] [place], [address] RDW SD 54.6 fl High 35.1-43.9 [facility] Comment on above: Performed By: #### L 100.0100, L500.2500 #### [facility] [address] [place], [address] WBC (Bld) [#/Vol] 9.2 10*3/uL Normal 4.4-11.0 [facility] Comment on above: Performed By: #### L 100.0100, L500.2500 #### [facility] [address] [place], [address] Carbon dioxide measurementOr dered By: Mendoza Boogie on 09-03-2024 CO2 [Moles/Vol] 27.0 mmol/L 21.0-32.0 [facility] Cardiology Visit Reporton Cardiology Visit Report [facility] [address] [place] [address] OFFICE VISIT Date of Service: 09/03/24 MR#: [id number] Acct: [id number] Name: KARLA CAI Rep #: [id number] : 1950 Provider: WILY Ortega Age/Sex: 73/F Location: [facility] Status: Signed HPI HPI History of Present Illness Details: Karla Cai is a 73-year-old female that presents here today for a cardiovascular follow-up with a history of an ascending aortic aneurysm, moderate mitral valve insuff and hypertension. Patient aortic aneurysm was being followed by Dr. Alberto, it was noted to be greater than 5 mm, she was referred to for aortic aneurysm replacement. On August 10, 2024 patient underwent an aortic aneurysm replacement with a Gelweave 30 mm, EDD C40 5 mm meter atrial clip. Postoperatively was complicated by new onset of left bundle branch block, atrial for with RVR, accelerated junctional rhythm, anemia requiring transfusion, respiratory failure with moderate ards requiring Airvo and a large pleural effusion with thoracentesis which had 850 cc removed. She was discharged home on amiodarone twice a day for 10 days then once a day for 20 days, apixaban, furosemide, metoprolol. Patient has been home for 10 days. She states that she is still fatigued. She does feel short of breath. She did need to increase her Lasix about 3 days ago. She did call the surgeons office and discussed this with them. She does have lower extremity edema that is not improving. She is concerned that she has her pleural effusions back. She does not have any incisional pains. Her incision is healing well. She does not have any palpitations that she is aware of. Intake Vital Signs 03/11/24 14:35 09/03/24 07:27 Height 5 ft 9 in 5 ft 9 in Weight: 173 lb BMI 25.5 BP 135/82 H Blood Pressure Location Lt brachial Position Sitting Respiration 18 Pulse 61 Pulse Source Monitor Pulse Oximetry (%) 93 Intake Visit Reasons: S/P Yara 08/22 Rope Tier Required: No Is patient in pain?: No Allergies adhesive tape Allergy (Intermediate, Verified 09/03/24 12:49) Itching Environmental Allergies: Uncoded Allergy (Verified 09/03/24 12:49) Itching amlodipine Adverse Reaction (Severe, Verified 09/03/24 12:49) pedal edema lisinopril Adverse Reaction (Severe, Verified 09/03/24 12:49) Cough doxazosin Adverse Reaction (Unknown, Verified 09/03/24 12:49) dizzy, loopy meloxicam Adverse Reaction (Unknown, Verified 09/03/24 12:49) kidney problems Medications ???Medication ???Instructions ???Recorded ???Confirmed ???Type olopatadine 0.1 % eye drops 1 drp ophthalmic (eye) BID PRN 04/30/19 09/03/24 History multivitamin 1 tab PO DAILY 03/11/24 09/03/24 History pravastatin 20 mg tablet 20 mg PO QDAY 03/11/24 09/03/24 History vit C 250 mg-vit E 90 mg-zinc 40 1 tab PO BID 03/11/24 09/03/24 History mg-copper 1 [id number]-[id number]-gzorfi capsule (PreserVision AREDS-2) amiodarone 200 mg tablet 200 mg PO QDAY 09/03/24 09/03/24 History apixaban 5 mg tablet 5 mg PO BID 09/03/24 09/03/24 History aspirin 81 mg tablet,delayed 81 mg PO QDAY 09/03/24 09/03/24 History release (Adult Low Dose Aspirin) beta carotene 10,000 unit capsule 7,500 mcg PO QDAY 09/03/24 09/03/24 History fluticasone propionate 50 1 spray intranasal QDAY 09/03/24 09/03/24 History mcg/actuation nasal spray,suspension loratadine 10 mg capsule (Allergy 10 mg PO QDAY PRN 09/03/24 09/03/24 History Relief (loratadine)) metoprolol succinate 100 mg 25 mg PO BID 09/03/24 09/03/24 History tablet,extended release 24 hr metoprolol tartrate 25 mg tablet 25 mg PO BID 09/03/24 09/03/24 History oxycodone 5 mg capsule 5 mg PO BID PRN 09/03/24 09/03/24 History vitamin B complex-folic acid 1 tab PO DAILY 09/03/24 09/03/24 History mg-vit C 60 mg-biotin 300 mcg tablet Have you fallen in the past year?: No PFSH Medical History (Updated 09/03/24 @ 13:55 by Mendoza JULIEN PA) Postoperative atrial fibrillation Mitral valve insufficiency Thoracic aortic aneurysm without rupture Breast cancer Essential hypertension Hypokalemia Acute diverticulitis Surgical History (Updated 09/03/24 @ 14:01 by Mendoza JULIEN PA) S/P left atrial appendage ligation History of lumpectomy of right breast History of breast reconstruction History of hysterectomy Acoustic neuroma Family History Mother Hypertension Colon cancer Father Heart disease Cancer Prostate Hypertension Brother Diabetes Hypertension Sister Cancer Ovarian, thyroid Sister Cancer Thyroid Other Hypokalemia Social History Smoking Status: Never smoker alcohol intake: n (more content not included)... Normal [facility] Chest PA and Lateralon 09-03 Chest PA and Lateral [facility] Imaging Services [address] [place], [place] [address] Chest PA and Lateral MR#: [id number] Acct: [id number] Name: KARLA CAI Rep #: [id number] : 1950 F 73 From: Meng Dickerson MD PCP: Dr. Jae Belcher MD Status: REG CLI Study: Chest PA and Lateral Date of Exam: 09/03/24 Exam# [id number] Ordering Dr: Mendoza Boogie [id number] STUDY: X-RAY CHEST REASON FOR EXAM: Female, 73 years old. BLUE TECHNIQUE: PA and lateral views of the chest. COMPARISON: None. FINDINGS: Status post median sternotomy with a left atrial appendage closure device. The lungs are clear and expanded. Moderate bilateral pleural effusions. There is moderate cardiac enlargement. Normal mediastinum and cristhian. Normal visualized pulmonary arteries. Normal visualized aortic arch and descending thoracic aorta. Normal visualized thoracic spine. Normal visualized ribs, clavicles, and shoulders. There is no demonstrated abnormality of the visualized soft tissue structures of the upper abdomen. RAD/Chest PA and Lateral IMPRESSION: Moderate bilateral pleural effusions. Electronically Signed: Meng Dickerson MD at 15:00 EST , CC: Dr. Jae Belcher MD; WILY Hernandez Biscuit Packer: Signed Normal [facility] Chloride measurementOrdered By: Mendoza Boogie on 09-03-2024 Chloride [Moles/Vol] 104 mmol/L 98-107 [facility] Eosinophil percentageOrdered By: Mendoza Boogie on 09-03-2024 Eosinophils/100 WBC (Bld) 3.0 % 0-5 [facility] Erythrocyte distribution wid th ratioOrdered By: Mendoza Boogie on 09-03-2024 Erythrocyte distribution width (RBC) [Ratio] 16.0 % High 11.6-14.6 [facility] Erythrocyte distribution wid th standard deviationOrdered By: Mendoza Boogie on 09-03-2024 Erythrocyte distribution width (RBC) [Entitic vol] 54.6 fL High 35.1-43.9 [facility] Estimated glomerular filtrat ion rate (GFR) AmericanOrdered By: Mendoza Boogie on 09-03-2024 Estimated GFR (MDRD) Amer 85 mL/min >60 [facility] Comment on above: GFR Calc Glomerular filtration rate ( GFR) estimationOrdered By: Mendoza Boogie on 09-03-2024 Estimated GFR (MDRD) Non-Af Amer 70 mL/min >60 [facility] Comment on above: Non- GFR Calc Glucose measurementOrdered B y: Mendoza Boogie on 09-03-2024 Glucose [Mass/Vol] 119 mg/dL High 74-106 [facility] Comment on above: Fasting Glucose resu lt from 100 to 125 mg/dL suggests IMPAIRED HOMEOSTASIS per A.D.A. criteria. Hematocrit Auto (Bld) [Volum e fraction]Ordered By: Mendoza Boogie on 09-03-2024 Hematocrit (Bld) [Volume fraction] 35.5 % Low 37-47 [facility] Hemoglobin measurementOrdere d By: Mendoza Boogie on 09-03-2024 Hemoglobin (Bld) [Mass/Vol] 11.0 g/dL Low 12.0-15.0 [facility] Immature granulocytes/100 WB C Auto (Bld)Ordered By: Mendoza Boogie on 09-03-2024 Immature granulocytes/100 WBC (Bld) 0.400 % 0.0-0.9 [facility] Comment on above: IG% - Immature Granu locytes (promyelocytes, myelocytes and metamyelocytes) > 1% indicates that a LEFT SHIFT is Present. Lymphocytes Auto (Unsp spec) [#/Vol]Ordered By: Mendoza Boogie on 09-03-2024 Lymphocytes (Bld) [#/Vol] 1.10 10*3/uL 0.83-4.51 [facility] Lymphocytes/100 WBC Auto (Un sp spec)Ordered By: Mendoza Boogie on 09-03-2024 Lymphocytes/100 WBC (Bld) 11.9 % Low 19-41 [facility] MCV (mean corpuscular volume ) determinationOrdered By: Mendoza Boogie on 09-03-2024 MCV (RBC) [Entitic vol] 93.2 fL 81-99 [facility] Mean corpuscular hemoglobin (MCH) determinationOrdered By: Mendoza Boogie on 09-03-2024 MCH (RBC) [Entitic mass] 28.9 pg 27.0-32.0 [facility] Mean corpuscular hemoglobin concentration (MCHC) determinationOrdered By: Mendoza Boogie on 09-03-2024 MCHC (RBC) [Mass/Vol] 31.0 g/dL Low 32-36 [facility] Mean platelet volume determi nationOrdered By: Mendoza Boogie on 09-03-2024 Platelet mean volume (Bld) [Entitic vol] 8.3 fL 6.2-12.0 [facility] Monocyte percentageOrdered B y: Mendoza Boogie on 09-03-2024 Monocytes/100 WBC (Bld) 8.3 % 0-10 [facility] Neutrophil percentageOrdered By: Mendoza Boogie on 09-03-2024 Neutrophils/100 WBC (Bld) 76.1 % High 47-70 [facility] Nucleated red blood cell per centageOrdered By: Mendoza Boogie on 09-03-2024 Nucleated RBC/100 WBC (Bld) [Ratio] 0 % 0-5 [facility] Platelet countOrdered By: Farzana Boogie on 09-03-2024 Platelets (Bld) [#/Vol] 691 10*3/uL High 150-450 [facility] Potassium measurementOrdered By: Mendoza Boogie on 09-03-2024 Potassium [Moles/Vol] 3.5 mmol/L 3.5-5.1 [facility] RBC Auto (Bld) [#/Vol]Ordere d By: Mendoza Boogie on 09-03-2024 RBC (Bld) [#/Vol] 3.81 10*6/uL Low 4.2-5.4 [facility] Serum anion gap measurementO rdered By: Mendoza Boogie on 09-03-2024 Anion gap [Moles/Vol] 7 mmol/L 5-15 [facility] Serum or plasma calcium jillian urement (mass/volume)Ordered By: Mendoza Boogie on 09-03-2024 Calcium [Mass/Vol] 8.5 mg/dL 8.5-10.1 [facility] Serum or plasma creatinine m easurement (mass/volume)Ordered By: Mendoza Boogie on 09-03-2024 Creatinine [Mass/Vol] 0.84 mg/dL 0.55-1.02 [facility] Comment on above: The validity of the calculated GFR & GFRAA in patients over 70 years has not been determined. Clinical correlation is essential. Serum or plasma urea nitroge n measurement (mass/volume)Ordered By: Mendoza Boogie on 09-03-2024 Urea nitrogen [Mass/Vol] 30 mg/dL High 7-18 [facility] Sodium levelOrdered By: Ten Boogie on 09-03-2024 Sodium [Moles/Vol] 138 mmol/L 136-145 [facility] White blood cell (WBC) count Ordered By: Mendoza Boogie on 09-03-2024 WBC (Bld) [#/Vol] 9.2 10*3/uL 4.4-11.0 [facility] CNOVon 08-28-2024 CNOV Office Visit (INTMWS ) KARLA CAI ([id number]) 1950 F Date Time Provider Department 08/28/24 1:20 PM SAVANNA KOTHARI INTMWS During your visit today, we recorded the following information about you: Temperature Pulse Blood pressure Weight 98.3 degrees 66/minute 122/68 79.4 kg Savanna Kothari, MANAGER HOSPICE.SURGICAL ONCOLOGIST 08/28/2024 2:06 PM Signed CC: Patient presents with: Hospital F/U: [facility] Dr. Galloway. Has been having some dizziness off and on. SAVANNA Karla Cai is a 73 year old female who [...] and Aldactone were discontinued. [facility] cardiac nurse yesterday. She is scheduled for follow-up with the belt cleaner on 09/03 and the surgeon on 10/07. [...] episode of palpitations causing her breath to catch but resolved quickly. Incisional pain is controlled [...] difficulty urinating, dysuria, frequency, hematuria and urgency. Psychiatric/Behavioral : Negative for dysphoric mood. The patient is not nervous/anxious. 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 vit C/E/Zn/coppr/lutein/ze axan (PRESERVISION AREDS-2 ORAL) Take 1 tablet by mouth two times a day. spironolactone (ALDACTONE) 50 mg tablet Take 1 tablet by mouth once daily. Per [facility] VITAMIN A ORAL Take (more content not included)... Normal [facility] CBC panel Auto (Bld)on 08-22 Erythrocyte distribution width (RBC) [Ratio] 16.9 % High 11.5 - 14.5 % [facility] Hematocrit (Bld) [Volume fraction] 28.1 % Low 36.0 - 46.0 % [facility] Hemoglobin (Bld) [Mass/Vol] 9.1 g/dL Low 12.0 - 16.0 g/dL [facility] Interpretation and review of laboratory results Abnormal [facility] MCH (RBC) [Entitic mass] 30.2 pg 26. 0 - 34.0 pg [facility] MCHC (RBC) [Mass/Vol] 32.4 g/dL 32.0 - 36.0 g/dL [facility] MCV (RBC) [Entitic vol] 93 fL 80 - 100 fL [facility] Nucleated RBC/100 WBC (Bld) [Ratio] 0 % [facility] Platelets (Bld) [#/Vol] 539 10*3/uL High [facility] RBC (Bld) [#/Vol] 3.01 10*6/uL Low Unive [facility] WBC (Bld) [#/Vol] 15.8 10*3/uL High [facility] Erythrocyte distribution width (RBC) [Ratio] 16.9 % High 11.5-14.5 [facility] Comment on above: Performed By: #### 5 8410-2 ####STEFANO TROY ([id number])[facility] ([facility] [place] [place])[address] [place] [address] Hematocrit (Bld) [Volume fraction] 28.1 % Low 36.0-46.0 [facility] Comment on above: Performed By: #### 5 8410-2 ####STEFANO TROY ([id number])[facility] ([facility] [place] [place])[address] [place] [address] Hemoglobin (Bld) [Mass/Vol] 9.1 g/dL Low 12.0-16.0 [facility] Comment on above: Performed By: #### 5 8410-2 ####STEFANO TROY ([id number])[facility] ([facility] [place] [place])[address] [place] [address] MCH (RBC) [Entitic mass] 30.2 pg Normal 26.0-34.0 [facility] Comment on above: Performed By: #### 5 8410-2 ####STEFANO TROY ([id number])[facility] ([facility] [place] [place])[address] [place] [address] MCHC (RBC) [Mass/Vol] 32.4 g/dL Normal 32.0-36.0 [facility] Comment on above: Performed By: #### 5 8410-2 ####STEFANO TROY ([id number])[facility] ([facility] [place] [place])[address] [place] [address] MCV (RBC) [Entitic vol] 93 fL Normal 80-100 [facility] Comment on above: Performed By: #### 5 8410-2 ####STEFANO TROY ([id number])[facility] ([facility] [place] [place])[address] [place] [id number] Nucleated RBC/100 WBC (Bld) [Ratio] 0.0 /100 WBCs Normal 0.0-0.0 [facility] Comment on above: Performed By: #### 5 8410-2 ####STEFANO TROY ([id number])[facility] ([facility] [place] [place])[address] [place] [address] Platelets (Bld) [#/Vol] 539 x10*3/uL High 150-450 [facility] Comment on above: Performed By: #### 5 8410-2 ####STEFANO TROY ([id number])[facility] ([facility] [place] [place])[address] [place] [id number] RBC (Bld) [#/Vol] 3.01 x10*6/uL Low 4.00-5.20 [facility] Comment on above: Performed By: #### 5 8410-2 ####STEFANO TROY ([id number])[facility] ([facility] [place] [place])[address] [place] [id number] WBC (Bld) [#/Vol] 15.8 x10*3/uL High 4.4-11.3 [facility] Comment on above: Performed By: #### 5 8410-2 ####STEFANO TROY ([id number])[facility] ([facility] [place] [place])[address] [place] [id number] Magnesiumon 08-22-2024 Magnesium [Mass/Vol] 1.9 mg/dL 1.60 - 2.40 mg/dL [facility] Magnesium [Mass/Vol] 1.90 mg/dL Normal 1.60-2.40 [facility] Comment on above: Performed By: #### 1 9123-9 ####STEFANO TROY ([id number])[facility] ([facility] [place] [place])[address] [place] [address] Magnesium [Mass/Vol]on 08-22 Interpretation and review of laboratory results Normal [facility] No Panel Informationon 08-22 [facility] Renal function 2000 panelon 08-22-2024 Albumin BCP dye [Mass/Vol] 2.7 g/dL Low 3.4 - 5.0 g/dL [facility] Anion gap [Moles/Vol] 12 mmol/L 10 - 2 0 mmol/L [facility] Calcium [Mass/Vol] 7.9 mg/dL Low 8.6 - 10. 3 mg/dL [facility] Chloride [Moles/Vol] 108 mmol/L High 98 - 10 7 mmol/L [facility] CO2 [Moles/Vol] 24 mmol/L 21 - 32 mmol/L [facility] Creatinine [Mass/Vol] 0.74 mg/dL 0.50 - 1.05 mg/dL [facility] GFR/1.73 sq M.predicted among non-blacks MDRD (S/P/Bld) [Vol rate/Area] 85 mL/min/{1.73_m2} - PINF [facility] Glucose [Mass/Vol] 109 mg/dL High 74 - 99 mg/dL [facility] Interpretation and review of laboratory results Abnormal [facility] Phosphate [Mass/Vol] 3.6 mg/dL 2.5 - 4 .9 mg/dL [facility] Potassium [Moles/Vol] 4.3 mmol/L 3.5 - 5.3 mmol/L [facility] Sodium [Moles/Vol] 140 mmol/L 136 - 145 mmol/L [facility] Urea nitrogen [Mass/Vol] 32 mg/dL High 6 - 23 mg/d L [facility] Albumin BCP dye [Mass/Vol] 2.7 g/dL Low 3.4-5.0 [facility] Comment on above: Performed By: #### 2 4362-6 ####STEFANO TROY ([id number])[facility] ([facility] [place] [place])[address] [place] [address] Anion gap [Moles/Vol] 12 mmol/L Normal 10-20 [facility] Comment on above: Performed By: #### 2 4362-6 ####STEFANO TROY ([id number])[facility] ([facility] [place] [place])[address] [place] [address] Calcium [Mass/Vol] 7.9 mg/dL Low 8.6-10.3 [facility] Comment on above: Performed By: #### 2 4362-6 ####STEFANO TROY ([id number])[facility] ([facility] [place] [place])[address] [place] [address] Chloride [Moles/Vol] 108 mmol/L High 98-107 [facility] Comment on above: Performed By: #### 2 4362-6 ####STEFANO TROY ([id number])[facility] ([facility] [place] [place])[address] [place] [address] CO2 [Moles/Vol] 24 mmol/L Normal 21-32 [facility] Comment on above: Performed By: #### 2 4362-6 ####STEFANO TROY ([id number])[facility] ([facility] [place] [place])[address] [place] [address] Creatinine [Mass/Vol] 0.74 mg/dL Normal 0.50-1.05 [facility] Comment on above: Performed By: #### 2 4362-6 ####STEFANO TROY ([id number])[facility] ([facility] [place] [place])[address] [place] [address] Glomerular filtration rate/1.73 sq M.predicted 85 mL/min/1.73m*2 Normal >60 [facility] Comment on above: Result Comment: Calc ulations of estimated GFR are performed using the 2020 CKD-EPI Study Refit equation without the race variable for the IDMS-Traceable creatinine methods.https://jasn.asnjournals.org/content/early /ASN.8690640175 Performed By: #### 2 4362-6 ####STEFANO TROY ([id number])[facility] ([facility] [place] [place])[address] [place] [address] Glucose [Mass/Vol] 109 mg/dL High 74-99 [facility] Comment on above: Performed By: #### 2 4362-6 ####STEFANO TROY ([id number])[facility] ([facility] [place] [place])[address] [place] [address] Phosphate [Mass/Vol] 3.6 mg/dL Normal 2.5-4.9 [facility] Comment on above: Result Comment: The performance characteristics of phosphorus testing in heparinized plasma have been validated by the individual laboratory site where testing is performed. Testing on heparinized plasma is not approved by the FDA; however, such approval is not necessary. Performed By: #### 2 4362-6 ####STEFANO TROY ([id number])[facility] ([facility] [place] [place])[address] [place] [address] Potassium [Moles/Vol] 4.3 mmol/L Normal 3.5-5.3 [facility] Comment on above: Performed By: #### 2 4362-6 ####STEFANO TROY ([id number])[facility] ([facility] [place] [place])[address] [place] [address] Sodium [Moles/Vol] 140 mmol/L Normal 136-145 [facility] Comment on above: Performed By: #### 2 4362-6 ####STEFANO TROY ([id number])[facility] ([facility] [place] [place])[address] [place] [address] Urea nitrogen [Mass/Vol] 32 mg/dL High 6-23 [facility] Comment on above: Performed By: #### 2 4362-6 ####STEFANO TROY ([id number])[facility] ([facility] [place] [place])[address] [place] [address] CBC panel Auto (Bld)on 08-21 Erythrocyte distribution width (RBC) [Ratio] 16.6 % High 11.5 - 14.5 % [facility] Hematocrit (Bld) [Volume fraction] 31.8 % Low 36.0 - 46.0 % [facility] Hemoglobin (Bld) [Mass/Vol] 9.9 g/dL Low 12.0 - 16.0 g/dL [facility] Interpretation and review of laboratory results Abnormal [facility] MCH (RBC) [Entitic mass] 29.4 pg 26. 0 - 34.0 pg [facility] MCHC (RBC) [Mass/Vol] 31.1 g/dL Low 32.0 - 36.0 g/dL [facility] MCV (RBC) [Entitic vol] 94 fL 80 - 100 fL [facility] Nucleated RBC/100 WBC (Bld) [Ratio] 0 % [facility] Platelets (Bld) [#/Vol] 614 10*3/uL High [facility] RBC (Bld) [#/Vol] 3.37 10*6/uL Low [facility]ive [facility] WBC (Bld) [#/Vol] 17.1 10*3/uL High [facility] Erythrocyte distribution width (RBC) [Ratio] 16.6 % High 11.5-14.5 [facility] Comment on above: Performed By: #### 5 8410-2 ####STEFANO TROY ([id number])[facility] ([facility] [place] [place])[address] [place] [address] Hematocrit (Bld) [Volume fraction] 31.8 % Low 36.0-46.0 [facility] Comment on above: Performed By: #### 5 8410-2 ####STEFANO TROY ([id number])[facility] ([facility] [place] [place])[address] [place] [address] Hemoglobin (Bld) [Mass/Vol] 9.9 g/dL Low 12.0-16.0 [facility] Comment on above: Performed By: #### 5 8410-2 ####STEFANO TROY ([id number])[facility] ([facility] [place] [place])[address] [place] [address] MCH (RBC) [Entitic mass] 29.4 pg Normal 26.0-34.0 [facility] Comment on above: Performed By: #### 5 8410-2 ####STEFANO TROY ([id number])[facility] ([facility] [place] [place])[address] [place] [address] MCHC (RBC) [Mass/Vol] 31.1 g/dL Low 32.0-36.0 [facility] Comment on above: Performed By: #### 5 8410-2 ####STEFANO TROY ([id number])[facility] ([facility] [place] [place])[address] [place] [address] MCV (RBC) [Entitic vol] 94 fL Normal 80-100 [facility] Comment on above: Performed By: #### 5 8410-2 ####STEFANO TROY ([id number])[facility] ([facility] [place] [place])[address] [place] [address] Nucleated RBC/100 WBC (Bld) [Ratio] 0.0 /100 WBCs Normal 0.0-0.0 [facility] Comment on above: Performed By: #### 5 8410-2 ####STEFANO TROY ([id number])[facility] ([facility] [place] [place])[address] [place] [address] Platelets (Bld) [#/Vol] 614 x10*3/uL High 150-450 [facility] Comment on above: Performed By: #### 5 8410-2 ####STEFANO TROY ([id number])[facility] ([facility] [place] [place])[address] [place] [address] RBC (Bld) [#/Vol] 3.37 x10*6/uL Low 4.00-5.20 [facility] Comment on above: Performed By: #### 5 8410-2 ####STEFANO TROY ([id number])[facility] ([facility] [place] [place])[address] [place] [id number] WBC (Bld) [#/Vol] 17.1 x10*3/uL High 4.4-11.3 [facility] Comment on above: Performed By: #### 5 8410-2 ####STEFANO TROY ([id number])[facility] ([facility] [place] [place])[address] [place] [address] Erythrocyte distribution width (RBC) [Ratio] 16.7 % High 11.5 - 14.5 % [facility] Hematocrit (Bld) [Volume fraction] 29.7 % Low 36.0 - 46.0 % [facility] Hemoglobin (Bld) [Mass/Vol] 9.3 g/dL Low 12.0 - 16.0 g/dL [facility] Interpretation and review of laboratory results Abnormal [facility] MCH (RBC) [Entitic mass] 30 pg 26. 0 - 34.0 pg [facility] MCHC (RBC) [Mass/Vol] 31.3 g/dL Low 32.0 - 36.0 g/dL [facility] MCV (RBC) [Entitic vol] 96 fL 80 - 100 fL [facility] Nucleated RBC/100 WBC (Bld) [Ratio] 0 % [facility] Platelets (Bld) [#/Vol] 542 10*3/uL High [facility] RBC (Bld) [#/Vol] 3.1 10*6/uL Low [facility] WBC (Bld) [#/Vol] 15.1 10*3/uL High [facility] Glucose Test strip manual (B ld) [Mass/Vol]on 08-21-2024 Glucose [Mass/Vol] 118 mg/dL High 74 - 99 mg/dL [facility] Interpretation and review of laboratory results Abnormal [facility] Glucose [Mass/Vol] 118 mg/dL High 74-99 [facility] Comment on above: Performed By: #### 2 341-6 ####STEFANO TROY ([id number])[facility] ([facility] [place] [place])[address] [place], [place] [id number] Lavender Topon 08-21-2024 Extra Tube Hold for add-ons. [facility] Magnesiumon 08-21-2024 Magnesium [Mass/Vol] 2.2 mg/dL 1.60 - 2.40 mg/dL [facility] Magnesium [Mass/Vol] 2.20 mg/dL Normal 1.60-2.40 [facility] Comment on above: Performed By: #### 1 9123-9 ####STEFANO TROY ([id number])[facility] ([facility] [place] [place])[address] [place] [address] Magnesium [Mass/Vol]on 08-21 Interpretation and review of laboratory results Normal [facility] Renal function 2000 panelon 08-21-2024 Albumin BCP dye [Mass/Vol] 2.7 g/dL Low 3.4 - 5.0 g/dL [facility] Anion gap [Moles/Vol] 11 mmol/L 10 - 2 0 mmol/L [facility] Calcium [Mass/Vol] 7.7 mg/dL Low 8.6 - 10. 3 mg/dL [facility] Chloride [Moles/Vol] 107 mmol/L 98 - 10 7 mmol/L [facility] CO2 [Moles/Vol] 24 mmol/L 21 - 32 mmol/L [facility] Creatinine [Mass/Vol] 0.79 mg/dL 0.50 - 1.05 mg/dL [facility] GFR/1.73 sq M.predicted among non-blacks MDRD (S/P/Bld) [Vol rate/Area] 79 mL/min/{1.73_m2} - PINF [facility] Glucose [Mass/Vol] 114 mg/dL High 74 - 99 mg/dL [facility] Interpretation and review of laboratory results Abnormal [facility] Phosphate [Mass/Vol] 3.5 mg/dL 2.5 - 4 .9 mg/dL [facility] Potassium [Moles/Vol] 3.7 mmol/L 3.5 - 5.3 mmol/L [facility] Sodium [Moles/Vol] 138 mmol/L 136 - 145 mmol/L [facility] Urea nitrogen [Mass/Vol] 34 mg/dL High 6 - 23 mg/d L [facility] Albumin BCP dye [Mass/Vol] 2.7 g/dL Low 3.4-5.0 [facility] Comment on above: Performed By: #### 2 4362-6 ####STEFANO TROY ([id number])[facility] ([facility] [place] [place])[address] [place] [address] Anion gap [Moles/Vol] 11 mmol/L Normal 10-20 [facility] Comment on above: Performed By: #### 2 4362-6 ####STEFANO TROY ([id number])[facility] ([facility] [place] [place])[address] [place] [address] Calcium [Mass/Vol] 7.7 mg/dL Low 8.6-10.3 [facility] Comment on above: Performed By: #### 2 4362-6 ####STEFANO TROY ([id number])[facility] ([facility] [place] [place])[address] [place] [address] Chloride [Moles/Vol] 107 mmol/L Normal 98-107 [facility] Comment on above: Performed By: #### 2 4362-6 ####STEFANO TROY ([id number])[facility] ([facility] [place] [place])[address] [place] [address] CO2 [Moles/Vol] 24 mmol/L Normal 21-32 [facility] Comment on above: Performed By: #### 2 4362-6 ####STEFANO TROY ([id number])[facility] ([facility] [place] [place])[address] [place] [address] Creatinine [Mass/Vol] 0.79 mg/dL Normal 0.50-1.05 [facility] Comment on above: Performed By: #### 2 4362-6 ####STEFANO TROY ([id number])[facility] ([facility] [place] [place])[address] [place] [address] Glomerular filtration rate/1.73 sq M.predicted 79 mL/min/1.73m*2 Normal >60 [facility] Comment on above: Result Comment: Calc ulations of estimated GFR are performed using the 2020 CKD-EPI Study Refit equation without the race variable for the IDMS-Traceable creatinine methods.https://jasn.asnjournals.org/content/ /ASN.3292662260 Performed By: #### 2 4362-6 ####STEFANO TROY ([id number])[facility] ([facility] [place] [place])[address] [place] [address] Glucose [Mass/Vol] 114 mg/dL High 74-99 [facility] Comment on above: Performed By: #### 2 4362-6 ####STEFANO TROY ([id number])[facility] ([facility] [place] [place])[address] [place] [address] Phosphate [Mass/Vol] 3.5 mg/dL Normal 2.5-4.9 [facility] Comment on above: Result Comment: The performance characteristics of phosphorus testing in heparinized plasma have been validated by the individual laboratory site where testing is performed. Testing on heparinized plasma is not approved by the FDA; however, such approval is not necessary. Performed By: #### 2 4362-6 ####STEFANO TROY ([id number])[facility] ([facility] [place], [place])[address] [place] [address] Potassium [Moles/Vol] 3.7 mmol/L Normal 3.5-5.3 [facility] Comment on above: Performed By: #### 2 4362-6 ####STEFANO TROY ([id number])[facility] ([facility] [place] [place])[address] [place] [address] Sodium [Moles/Vol] 138 mmol/L Normal 136-145 [facility] Comment on above: Performed By: #### 2 4362-6 ####STEFANO TROY ([id number])[facility] ([facility] [place] [place])[address] [place] [address] Urea nitrogen [Mass/Vol] 34 mg/dL High 6-23 [facility] Comment on above: Performed By: #### 2 4362-6 ####STEFANO TROY ([id number])[facility] ([facility] [place] [place])[address] [place] [address] Urinalysis complete W Reflex Culture panel (U)on 08-21-2024 Appearance (U) Clear Clear [facility] Bilirubin (U) [Mass/Vol] Negative NEGATIVE [facility] Color (U) Yellow Light-Yellow , Yellow, Dark-Yellow [facility] Glucose Auto test strip (U) [Mass/Vol] Normal Normal mg/dL [facility] Interpretation and review of laboratory results Normal [facility] Ketones (U) [Mass/Vol] Negative NEGAT ELLEN mg/dL [facility] Leukocyte esterase Auto test strip Ql (U) Negative NEGATIVE [facility] Nitrite Auto test strip Ql (U) Negative NEGATIVE [facility] pH (U) 5 [pH] 5.0, 5.5, 6.0, 6.5, 7.0, 7.5, 8.0 [facility] Protein (U) [Mass/Vol] Negative NEGAT ELLEN, 10 (TRACE), 20 (TRACE) mg/dL [facility] RBC (U) [#/Vol] Negative NEGATIVE [facility] Specific gravity (U) [Rel density] 1.019 1.005 - 1.035 [facility] Urobilinogen (U) [Mass/Vol] Normal Normal mg/dL [facility] Appearance (U) Clear Normal Clear [facility] Comment on above: Performed By: #### 5 8077-9 ####STEFANO TROY ([id number])[facility] ([facility] [place], [place])[address] [place] [address] Bilirubin (U) [Mass/Vol] Negative Normal NEGATIVE [facility] Comment on above: Performed By: #### 5 8077-9 ####STEFANO TROY ([id number])[facility] ([facility] [place], [place])[address] [place] [address] Color (U) Yellow Normal Light-Yellow , Yellow, Dark-Yellow [facility] Comment on above: Performed By: #### 5 8077-9 ####STEFANO TROY ([id number])[facility] ([facility] [place] [place])[address] [place] [address] Glucose Auto test strip (U) [Mass/Vol] Normal Normal Normal [facility] Comment on above: Performed By: #### 5 8077-9 ####STEFANO TROY ([id number])[facility] ([facility] [place] [place])[address] [place] [address] [place] [address] Ketones (U) [Mass/Vol] Negative Normal NEGATIVE Un [facility] Comment on above: Performed By: #### 5 8077-9 ####STEFANO TROY ([id number])[facility] ([facility] [place] [place])[address] [place] [address] Leukocyte esterase Auto test strip Ql (U) Negative Normal NEGATIVE [facility] Comment on above: Performed By: #### 5 8077-9 ####STEFANO TROY ([id number])[facility] ([facility] [place] [place])[address] [place] [address] Nitrite Auto test strip Ql (U) Negative Normal NEGATIVE [facility] Comment on above: Performed By: #### 5 8077-9 ####STEFANO TROY ([id number])[facility] ([facility] [place] [place])[address] [place] [address] pH (U) 5.0 [pH] Normal 5.0, 5.5, 6.0, 6.5, 7.0, 7.5, 8.0 [facility] Comment on above: Performed By: #### 5 8077-9 ####STEFANO TROY ([id number])[facility] ([facility] [place] [place])[address] [place] [address] Protein (U) [Mass/Vol] Negative Normal NEGAT ELLEN, 10 (TRACE), 20 (TRACE) [facility] Comment on above: Performed By: #### 5 8077-9 ####STEFANO TROY ([id number])[facility] ([facility] [place] [place])[address] [place] [address] RBC (U) [#/Vol] Negative Normal NEGATIVE [facility] Comment on above: Performed By: #### 5 8077-9 ####STEFANO TROY ([id number])[facility] ([facility] [place] [place])[address] [place] [address] Specific gravity (U) [Rel density] 1.019 Normal 1.005-1.035 [facility] Comment on above: Performed By: #### 5 8077-9 ####STEFANO TROY ([id number])[facility] ([facility] [place] [place])[address] [place] [address] Urobilinogen (U) [Mass/Vol] Normal Normal Normal [facility] Comment on above: Performed By: #### 5 8077-9 ####STEFANO TROY ([id number])[facility] ([facility] [place] [place])[address] [place] [address] XR CHEST 1 VIEWon 08-21-2024 XR CHEST 1 VIEW Normal [facility] XR Chest Single viewon 08-21 [facility] MMODAL U[facility] MMODAL [facility] Work Phone: [facility] Work Phone: Radiology Study observation (narrative) [facility] Work Phone: CBC panel Auto (Bld)on 08-20 Erythrocyte distribution width (RBC) [Ratio] 16.7 % High 11.5-14.5 [facility] Comment on above: Performed By: #### 5 8410-2 ####STEFANO TROY ([id number])[facility] ([facility] [place] [place])[address] [place] [address] Hematocrit (Bld) [Volume fraction] 29.7 % Low 36.0-46.0 [facility] Comment on above: Performed By: #### 5 8410-2 ####STEFANO TROY ([id number])[facility] ([facility] [place] [place])[address] [place] [id number] Hemoglobin (Bld) [Mass/Vol] 9.3 g/dL Low 12.0-16.0 [facility] Comment on above: Performed By: #### 5 8410-2 ####STEFANO TORY ([id number])[facility] ([facility] [place] [place])[address] [place] [phone] MCH (RBC) [Entitic mass] 30.0 pg Normal 26.0-34.0 [facility] Comment on above: Performed By: #### 5 8410-2 ####STEFANO TROY ([id number])[facility] ([facility] [place] [place])[address] [place] [address] MCHC (RBC) [Mass/Vol] 31.3 g/dL Low 32.0-36.0 [facility] Comment on above: Performed By: #### 5 8410-2 ####STEFANO TROY ([id number])[facility] ([facility] [place] [place])[address] [place] [address] MCV (RBC) [Entitic vol] 96 fL Normal 80-100 [facility] Comment on above: Performed By: #### 5 8410-2 ####STEFANO TROY ([id number])[facility] ([facility] [place] [place])[address] [place] [phone] Nucleated RBC/100 WBC (Bld) [Ratio] 0.0 /100 WBCs Normal 0.0-0.0 [facility] Comment on above: Performed By: #### 5 8410-2 ####STEFANO TROY ([id number])[facility] ([facility] [place] [place])[address] [place] [address] Platelets (Bld) [#/Vol] 542 x10*3/uL High 150-450 [facility] Comment on above: Performed By: #### 5 8410-2 ####STEFANO TROY ([id number])[facility] ([facility] [place] [place])[address] [place] [address] RBC (Bld) [#/Vol] 3.10 x10*6/uL Low 4.00-5.20 [facility] Comment on above: Performed By: #### 5 8410-2 ####STEFANO TROY ([id number])[facility] ([facility] [place] [place])[address] [place] [address] WBC (Bld) [#/Vol] 15.1 x10*3/uL High 4.4-11.3 [facility] Comment on above: Performed By: #### 5 8410-2 ####STEFANO TROY ([id number])[facility] ([facility] [place] [place])[address] [place] [address] Glucose Test strip manual (B ld) [Mass/Vol]on 08-20-2024 Glucose [Mass/Vol] 144 mg/dL High 74 - 99 mg/dL [facility] Interpretation and review of laboratory results Abnormal [facility] Glucose [Mass/Vol] 144 mg/dL High 74-99 [facility] Comment on above: Performed By: #### 2 341-6 ####STEFANO TROY ([id number])[facility] ([facility] [place] [place])[address] [place] [address] Glucose [Mass/Vol] 114 mg/dL High 74 - 99 mg/dL [facility] Interpretation and review of laboratory results Abnormal [facility] Glucose [Mass/Vol] 114 mg/dL High 74-99 [facility] Comment on above: Performed By: #### 2 341-6 ####STEFANO TROY ([id number])[facility] ([facility] [place] [place])[address] [place] [address] Glucose [Mass/Vol] 140 mg/dL High 74 - 99 mg/dL [facility] Interpretation and review of laboratory results Abnormal [facility] Glucose [Mass/Vol] 140 mg/dL High 74-99 [facility] Comment on above: Performed By: #### 2 341-6 ####STEFANO TROY ([id number])[facility] ([facility] [place] [place])[address] [place] [address] Lavender Topon 08-20-2024 Extra Tube Hold for add-ons. [facility] Magnesiumon 08-20-2024 Magnesium [Mass/Vol] 2.16 mg/dL 1.60 - 2.40 mg/dL [facility] Magnesium [Mass/Vol] 2.16 mg/dL Normal 1.60-2.40 [facility] Comment on above: Order Comment: 2 yury rs after infusion complete. Performed By: #### 1 9123-9 ####STEFANO TROY ([id number])[facility] ([facility] [place] [place])[address] [place] [address] Magnesium [Mass/Vol]on 08-20 Interpretation and review of laboratory results Normal [facility] Renal function 2000 panelon 08-20-2024 Albumin BCP dye [Mass/Vol] 3 g/dL Low 3.4 - 5.0 g/dL [facility] Anion gap [Moles/Vol] 13 mmol/L 10 - 2 0 mmol/L [facility] Calcium [Mass/Vol] 8.3 mg/dL Low 8.6 - 10. 3 mg/dL [facility] Chloride [Moles/Vol] 106 mmol/L 98 - 10 7 mmol/L [facility] CO2 [Moles/Vol] 23 mmol/L 21 - 32 mmol/L [facility] Creatinine [Mass/Vol] 0.97 mg/dL 0.50 - 1.05 mg/dL [facility] GFR/1.73 sq M.predicted among non-blacks MDRD (S/P/Bld) [Vol rate/Area] 61 mL/min/{1.73_m2} - PINF [facility] Glucose [Mass/Vol] 142 mg/dL High 74 - 99 mg/dL [facility] Interpretation and review of laboratory results Abnormal [facility] Phosphate [Mass/Vol] 3.6 mg/dL 2.5 - 4 .9 mg/dL [facility] Potassium [Moles/Vol] 4.6 mmol/L 3.5 - 5.3 mmol/L [facility] Sodium [Moles/Vol] 137 mmol/L 136 - 145 mmol/L [facility] Urea nitrogen [Mass/Vol] 36 mg/dL High 6 - 23 mg/d L [facility] Albumin BCP dye [Mass/Vol] 3.0 g/dL Low 3.4-5.0 [facility] Comment on above: Performed By: #### 2 4362-6 ####STEFANO TROY ([id number])[facility] ([facility] [place], [place])[address] [place] [address] Anion gap [Moles/Vol] 13 mmol/L Normal 10-20 [facility] Comment on above: Performed By: #### 2 4362-6 ####STEFANO TROY ([id number])[facility] ([facility] [place] [place])[address] [place] [address] Calcium [Mass/Vol] 8.3 mg/dL Low 8.6-10.3 [facility] Comment on above: Performed By: #### 2 4362-6 ####STEFANO TROY ([id number])[facility] ([facility] [place] [place])[address] [place] [address] Chloride [Moles/Vol] 106 mmol/L Normal 98-107 [facility] Comment on above: Performed By: #### 2 4362-6 ####STEFANO TROY ([id number])[facility] ([facility] [place] [place])[address] [place] [address] CO2 [Moles/Vol] 23 mmol/L Normal 21-32 [facility] Comment on above: Performed By: #### 2 4362-6 ####STEFANO TROY ([id number])[facility] ([facility] [place] [place])[address] [place] [address] Creatinine [Mass/Vol] 0.97 mg/dL Normal 0.50-1.05 [facility] Comment on above: Performed By: #### 2 4362-6 ####STEFANO TROY ([id number])[facility] ([facility] [place] [place])[address] [place] [address] Glomerular filtration rate/1.73 sq M.predicted 61 mL/min/1.73m*2 Normal >60 [facility] Comment on above: Result Comment: Calc ulations of estimated GFR are performed using the 2020 CKD-EPI Study Refit equation without the race variable for the IDMS-Traceable creatinine methods.https://jasn.asnjournals.org/content/ /ASN.2945916554 Performed By: #### 2 4362-6 ####STEFANO TROY ([id number])[facility] ([facility] [place] [place])[address] [place] [address] Glucose [Mass/Vol] 142 mg/dL High 74-99 [facility] Comment on above: Performed By: #### 2 4362-6 ####STEFANO TROY ([id number])[facility] ([facility] [place] [place])[address] [place] [address] Phosphate [Mass/Vol] 3.6 mg/dL Normal 2.5-4.9 [facility] Comment on above: Result Comment: The performance characteristics of phosphorus testing in heparinized plasma have been validated by the individual laboratory site where testing is performed. Testing on heparinized plasma is not approved by the FDA; however, such approval is not necessary. Performed By: #### 2 4362-6 ####STEFANO TROY ([id number])[facility] ([facility] [place], [place])[address] [place], [place] [id number] Potassium [Moles/Vol] 4.6 mmol/L Normal 3.5-5.3 [facility] Comment on above: Performed By: #### 2 4362-6 ####STEFANO TROY ([id number])[facility] ([facility] [place] [place])[address] [place] [address] Sodium [Moles/Vol] 137 mmol/L Normal 136-145 [facility] Comment on above: Performed By: #### 2 4362-6 ####STEFANO TROY ([id number])[facility] ([facility] [place] [place])[address] [place] [address] Urea nitrogen [Mass/Vol] 36 mg/dL High 6-23 [facility] Comment on above: Performed By: #### 2 4362-6 ####STEFANO TROY ([id number])[facility] ([facility] [place] [place])[address] [place] [address] Surgical pathology studyOrde red By: Marisela Orlando on 08-20-2024 Laboratory comment Dharmesh (Report) u3hvqVVxYBZil8niOWQhrI FuZzEwMzNcZnRuYmpcdWMx BCqoqfZvBJjfl5IsJ7JwMn AwMFxhbnNpXGRlZmxhbmcx OEDwLSZ9ahBeXZHzGJpvYG HjYJryVs3ipBUngMfsLmRh QGTin5dvklJABCrtRUNMKD w1h9icEAVgQqG8aEOlTAmb Z0gnakOwtLNxF0Abf5IkRF y6rI60ACOpeC4zfLYbTDqo cpGdCmM7UCftAOUjLpY0LI DwxDHbCSQkL3bdUCEaRKgg PDLmUYbxqSHwKSN9lJilc3 U0uOXhkQMbjOwqEfXnZnZy ZpMWh1HaPTf4jMsvC9AlKE RkYxJ8sUIuZEExAOngYFNe JNZjsdT8pC40UBrwenX3tM Tqw3Aws95bt189sV4suWOn GYK5RVBjVBHboBCkOHSrQA H4VWJvzMTnQ4rlEdByhFVh Q1LoJmDbfBUtL0HkKxWxcK AiT9MyBpIllZVzRGUdhJI8 AUihk288VGE8QuKcSI4yI6 Kht6B5zK8qpZNvYYZjnTZe QzJmRUOugh6fuIChIMeej1 QfVFQ9adJ8nJBmbBMcUKCv PG77Vgmux0NsZekgOUV8YV SbtuXou7Nli6vlWyJkryRn D9syT6PaCOMfBTRyEYHzRk AisrMny8Igk0GgwIMziGq1 n7kkXFCyJYTwwYcxm9cdDG W8BUOdC5O6bPYnb0diOPzs RNBkgZU9bdZ4JNxtWOLhhx G7ckV7KKaeLVHhhBC4wbZ6 OLrzHZZnOyD1jbT2KAbjQC XyQXT1ZfHvUJAxp6Gvuecz WaZqq1IuhECmDSzbH15jy7 38BUTwuiUxV0carJZnxrig qKJpivmkKBzbtxG5BPPcKT BsYWluXGYxXGZzMjBcbGFu ZzEwMzNcaGljaFxmMVxkYm VmZUPsTNiyA2nrLmBxUeTc USVMzDF5fJXot9fdtaU0eC OeFB2wBCVdzDBdxqFlz4B3 UCU5gMGzaP3tdVBaDWHxnH EwusVaeg99nIJjfRV9SLVn NVQalMDbwS3wDXKmEHJBbG 5hbCBJbnRlcnByZXRhdGlv at8RwCUgfx4agBNyR6QiuJ lmaWVzIHRoYXQgdGhleSBo TEAcXIBsapkwu0WtMMJppI KaR3DeIW5lJORake98 [facility] Work Phone: Pathology report Cancer Narrative [facility] Work Phone: Pathology report final diagnosis Narrative t1oapEZjNORrrKBgGSnvDv ywzxNyGLFqmRWcZ3Xnxski AJjqMK7jMI8ntYdeuKSkkS ToPLElOiHuk3pen657mZLh p4sjEPDJpkrhpCq5oCtrJ6 5ng7D7GxjvS4ybBGTzNNmd XCMgVKeveBTpSBf9NDDosH VydzEyMjQwXHBhcGVyaDE1 FVZdDX6wdpbsALxiZEemFK JrnrT1EOSclFOmP4JcDRKa QE3gmiqgJZQ5XNxgBRYaSN Z7RhQcIFXbh9Srhxv7JtIa nEh5s1shLGZfEIMmdTnma4 poMJD0DQHcmQYqN3jhsK1h NFIpNF5ytuynb3oeAPjxSA uqCEKqtIL2cgZ6RNYouCRw E3IlgF0gJHRvXNKdboXnqI xoyD5aSwpkpuDjLIBdUJXT U6LZKKoFRgGAZ2WXCSWoXP pNI2XEWilzIROcRsRuCW7t QkVOSUdOIEFPUlRJQyBXQU xMLCBDTElOSUNBTExZIEFO RXSJXINSQRFVLLOSHa9hE4 YxICBccGFyXHBhcn0= [facility] Work Phone: Pathology report gross observation Narrative k6kfmKAvJHEzpMRiRMxxYg buaeGxNXDhqNLaT4Jqilhn IKtmOR6eBQ0huBhpyYNwrV OjYSAaYvMiz0lgn699iDXr d7pbLNQZjpqatCv3nCfjO4 7dp8P6JpfzB45etSSuKZT1 NYTaFIHzxEBxXLBwBHP8QO HqyVCxG2udTYIfBJ4gvity KNfgSUudKULezCM3MXPbaG XfO0YnDWRtRKxzAQZclwu3 WpWxQz6bdFSibRviJLjdAg wuiTple9QwcVQpXRozKMVj XHJvQBsamhzhDMv3BXEvVC uuqVViCY5fbTxlSemtkLma x1LsaIGlODijYNNhZPWeKQ grSDQfU0BMXLMfCkN0SDF2 OutlLGu9XUk4JF2YImGuGM FbNPT8NXK3BdXbVPf2ATmp KD0ZVMUrELBkUUVmOrKmQB QzNTMgXFxuaCBcXHQgMiBc GMFmSHGtVFyyzTDwDE9xOK tfXtP6KOOtxbVyp2PaCRvt zTtuRBQrKoXckWxbnU8lXk TqMSPBBmJqDaXeBGk0RVZh vV5mTw3zrWTrgN4wYKjbLi UyTUHoq3k9sLE3tOXkgUG4 zNYkxOlhXC7abROzGD5xIK reu4GoyMKwCP37vQNyzeUr tsXnZdNlmkRiHlY0iYOafK UiLCBhcmUgbXVsdGlwbGUg r1YmpPVbwBHhx3ErFK1aqG loLJHag4W6RUNbB2qgCDxz vQojJlZ3quGaXj4hHWoqWw 63MKpmWN9mIHNnXkVGhRNh i7VkwCDzsiJgUdYtL79rgU 8yoFezP7ozWBFrXqKIfIZv bG09uP0kjWHfnNKvSPPlUC FwMPLufo04POErcH2gw5Gr UOJhTIVcaKStNzitGCF5kS Llw9LluBPas7Hamr5kCNmn IGFkdmVudGlhbCBzdXJmYW ElEZZllB4cg0GzCXIwldUa suMukoCqLT3fDY4ugFCuxY Oel3CngVCsAD0dFgGtoeCz IT52ZAAjyeTrn6MwmZuhsa WuKEXiDKU5Ne8unOPqBLKt hbCenuQoZ2Onu9K3kCZrFI BhclxwYXJkXHNhMzBcZXBp I7uaEJPiLMNPC8qtLNLdM2 NqB2MeztE1l4jadHpwt2Pe tKFuUN5ncXFskY== [facility] Work Phone: Pathology report relevant history Narrative c0ieoVMiTSHqb3qhQQIltO DhYgZiAvGvSnWySrk3ESIz elG2Uvs0MZTtMVhovM5zRA UnNNigH0aiypBrtOOlIVJy FCc6iI2pfQftgN1bXbCjHu PeEOXEneOuz2YxHWujX22y m1prMvkmRAYsWO0ukFM6g4 2kd7HlKFXxZZ0gcD0dFZFm cnRhIHdpdGhvdXQgcnVwdH GhMOJnF35IHQkXNwgbN1a7 QL0yNW6mpBRoOV2= [facility] Work Phone: [facility] Work Phone: CBC panel Auto (Bld)on 08-19 Erythrocyte distribution width (RBC) [Ratio] 16 % High 11.5 - 14.5 % [facility] Hematocrit (Bld) [Volume fraction] 27.6 % Low 36.0 - 46.0 % [facility] Hemoglobin (Bld) [Mass/Vol] 9 g/dL Low 12.0 - 16.0 g/dL [facility] Interpretation and review of laboratory results Abnormal [facility] MCH (RBC) [Entitic mass] 30.6 pg 26. 0 - 34.0 pg [facility] MCHC (RBC) [Mass/Vol] 32.6 g/dL 32.0 - 36.0 g/dL [facility] MCV (RBC) [Entitic vol] 94 fL 80 - 100 fL [facility] Nucleated RBC/100 WBC (Bld) [Ratio] 0.2 % High [facility] Platelets (Bld) [#/Vol] 433 10*3/uL [facility] RBC (Bld) [#/Vol] 2.94 10*6/uL Low [facility] WBC (Bld) [#/Vol] 11.8 10*3/uL High [facility] Erythrocyte distribution width (RBC) [Ratio] 16.0 % High 11.5-14.5 [facility] Comment on above: Performed By: #### 5 8410-2 ####STEFANO TROY ([id number])[facility] ([facility] [place] [place])[address] [place] [address] Hematocrit (Bld) [Volume fraction] 27.6 % Low 36.0-46.0 [facility] Comment on above: Performed By: #### 5 8410-2 ####STEFANO TROY ([id number])[facility] ([facility] [place] [place])[address] [place] [id number] Hemoglobin (Bld) [Mass/Vol] 9.0 g/dL Low 12.0-16.0 [facility] Comment on above: Performed By: #### 5 8410-2 ####STEFANO TROY ([id number])[facility] ([facility] [place] [place])[address] [place] [address] MCH (RBC) [Entitic mass] 30.6 pg Normal 26.0-34.0 [facility] Comment on above: Performed By: #### 5 8410-2 ####STEFANO TROY ([id number])[facility] ([facility] [place], [place])[address] [place] [address] MCHC (RBC) [Mass/Vol] 32.6 g/dL Normal 32.0-36.0 [facility] Comment on above: Performed By: #### 5 8410-2 ####STEFANO TROY ([id number])[facility] ([facility] [place], [place])[address] [place] [address] MCV (RBC) [Entitic vol] 94 fL Normal 80-100 [facility] Comment on above: Performed By: #### 5 8410-2 ####STEFANO TROY ([id number])[facility] ([facility] [place], [place])[address] [place] [address] Nucleated RBC/100 WBC (Bld) [Ratio] 0.2 /100 WBCs High 0.0-0.0 [facility] Comment on above: Performed By: #### 5 8410-2 ####STEFANO TROY ([id number])[facility] ([facility] [place], [place])[address] [place] [address] Platelets (Bld) [#/Vol] 433 x10*3/uL Normal 150-450 [facility] Comment on above: Performed By: #### 5 8410-2 ####STEFANO TROY ([id number])[facility] ([facility] [place] [place])[address] [place] [address] RBC (Bld) [#/Vol] 2.94 x10*6/uL Low 4.00-5.20 [facility] Comment on above: Performed By: #### 5 8410-2 ####STEFANO TROY ([id number])[facility] ([facility] [place] [place])[address] [place] [id number] WBC (Bld) [#/Vol] 11.8 x10*3/uL High 4.4-11.3 [facility] Comment on above: Performed By: #### 5 8410-2 ####STEFANO LI ([id number])[facility] ([facility] [place], [place])[address] [place] [address] ECG 12-LEADon 08-19-2024 ECG 12-LEAD Ventricular Rate 109 Atrial Rate 117 QRS Duration 144 Q-T Interval 334 QTC Calculation([place]az[place]) 449 R [place] 113 T [place] -38 QRS Count 18 Q Onset 213 [...] changes have occurred Confirmed by Gurjit Bower ([id number]) on 08/25/2024 5:44:02 PM Normal [facility] Electrocardiogram 12-lead HI N for arrhythmiaOrdered By: Kevin Kenyon on 08-19-2024 Atrial Rate 92 BPM [facility] Work Phone: [phone] P [place] 40 degrees [facility] Work Phone: [phone] P Offset 179 ms [facility] Work Phone: [phone] P Onset 130 ms [facility] Work Phone: [phone] HI Interval 168 ms [facility] Work Phone: [phone] Q Onset 214 ms [facility] Work Phone: [phone] QRS Count 15 beats [facility] Work Phone: [phone] QRS Duration 134 ms [facility] Work Phone: [phone] QT Interval 430 ms [facility] Work Phone: [phone] QTC Calculation([place]) 531 ms [facility] Work Phone: [phone] QTC Fredericia 495 ms [facility] Work Phone: [phone] R [place] 136 degrees [facility] Work Phone: [phone] T [place] 47 degrees [facility] Work Phone: T Offset 429 ms [facility] Work Phone: Ventricular Rate 92 BPM [facility] Work Phone: [facility] Work Phone: Electrocardiogram 12-lead HI N for arrhythmiaon 08-19-2024 [facility] Work Phone: Glucose Test strip manual (B ld) [Mass/Vol]on 08-19-2024 Glucose [Mass/Vol] 121 mg/dL High 74 - 99 mg/dL [facility] Interpretation and review of laboratory results Abnormal [facility] Glucose [Mass/Vol] 121 mg/dL High 74-99 [facility] Comment on above: Performed By: #### 2 341-6 ####STEFANO TROY ([id number])[facility] ([facility] [place], [place])[address] [place] [address] Glucose [Mass/Vol] 137 mg/dL High 74 - 99 mg/dL [facility] Interpretation and review of laboratory results Abnormal [facility] Glucose [Mass/Vol] 137 mg/dL High 74-99 [facility] Comment on above: Performed By: #### 2 341-6 ####STEFANO TROY ([id number])[facility] ([facility] [place] [place])[address] [place] [address] Glucose [Mass/Vol] 128 mg/dL High 74 - 99 mg/dL [facility] Interpretation and review of laboratory results Abnormal [facility] Glucose [Mass/Vol] 128 mg/dL High 74-99 [facility] Comment on above: Performed By: #### 2 341-6 ####STEFANO TROY ([id number])[facility] ([facility] [place] [place])[address] [place] [address] Glucose [Mass/Vol] 122 mg/dL High 74 - 99 mg/dL [facility] Interpretation and review of laboratory results Abnormal [facility] Glucose [Mass/Vol] 122 mg/dL High 74-99 [facility] Comment on above: Performed By: #### 2 341-6 ####STEFANO TROY ([id number])[facility] ([facility] [place] [place])[address] [place] [address] Magnesiumon 08-19-2024 Magnesium [Mass/Vol] 1.91 mg/dL 1.60 - 2.40 mg/dL [facility] Magnesium [Mass/Vol] 1.91 mg/dL Normal 1.60-2.40 [facility] Comment on above: Performed By: #### 1 9123-9 ####STEFANO TROY ([id number])[facility] ([facility] [place] [place])[address] [place] [address] Magnesium [Mass/Vol]on 08-19 Interpretation and review of laboratory results Normal [facility] No Panel Informationon 08-19 [facility] Renal function 2000 panelon 08-19-2024 Albumin BCP dye [Mass/Vol] 2.7 g/dL Low 3.4 - 5.0 g/dL [facility] Anion gap [Moles/Vol] 12 mmol/L 10 - 2 0 mmol/L [facility] Calcium [Mass/Vol] 7.6 mg/dL Low 8.6 - 10. 3 mg/dL [facility] Chloride [Moles/Vol] 107 mmol/L 98 - 10 7 mmol/L [facility] CO2 [Moles/Vol] 24 mmol/L 21 - 32 mmol/L [facility] Creatinine [Mass/Vol] 0.81 mg/dL 0.50 - 1.05 mg/dL [facility] GFR/1.73 sq M.predicted among non-blacks MDRD (S/P/Bld) [Vol rate/Area] 76 mL/min/{1.73_m2} - PINF [facility] Glucose [Mass/Vol] 104 mg/dL High 74 - 99 mg/dL [facility] Interpretation and review of laboratory results Abnormal [facility] Phosphate [Mass/Vol] 4 mg/dL 2.5 - 4 .9 mg/dL [facility] Potassium [Moles/Vol] 4 mmol/L 3.5 - 5.3 mmol/L [facility] Sodium [Moles/Vol] 139 mmol/L 136 - 145 mmol/L [facility] Urea nitrogen [Mass/Vol] 33 mg/dL High 6 - 23 mg/d L [facility] Albumin BCP dye [Mass/Vol] 2.7 g/dL Low 3.4-5.0 [facility] Comment on above: Performed By: #### 2 4362-6 ####STEFANO TROY ([id number])[facility] ([facility] [place] [place])[address] [place] [address] Anion gap [Moles/Vol] 12 mmol/L Normal 10-20 [facility] Comment on above: Performed By: #### 2 436-6 ####STEFANO TROY ([id number])[facility] ([facility] [place] [place])[address] [place] [address] Calcium [Mass/Vol] 7.6 mg/dL Low 8.6-10.3 [facility] Comment on above: Performed By: #### 2 4362-6 ####STEFANO TROY ([id number])[facility] ([facility] [place] [place])[address] [place] [address] Chloride [Moles/Vol] 107 mmol/L Normal 98-107 [facility] Comment on above: Performed By: #### 2 4362-6 ####STEFANO TROY ([id number])[facility] ([facility] [place] [place])[address] [place] [address] CO2 [Moles/Vol] 24 mmol/L Normal 21-32 [facility] Comment on above: Performed By: #### 2 4362-6 ####STEFANO TROY ([id number])[facility] ([facility] [place] [place])[address] [place] [address] Creatinine [Mass/Vol] 0.81 mg/dL Normal 0.50-1.05 [facility] Comment on above: Performed By: #### 2 4362-6 ####STEFANO TROY ([id number])[facility] ([facility] [place] [place])[address] [place] [address] Glomerular filtration rate/1.73 sq M.predicted 76 mL/min/1.73m*2 Normal >60 [facility] Comment on above: Result Comment: Calc ulations of estimated GFR are performed using the 2020 CKD-EPI Study Refit equation without the race variable for the IDMS-Traceable creatinine methods.https://jasn.asnjournals.org/content/early /ASN.6797424252 Performed By: #### 2 4362-6 ####STEFANO TROY ([id number])[facility] ([facility] [place] [place])[address] [place] [address] Glucose [Mass/Vol] 104 mg/dL High 74-99 [facility] Comment on above: Performed By: #### 2 4362-6 ####STEFANO TROY ([id number])[facility] ([facility] [place] [place])[address] [place] [address] Phosphate [Mass/Vol] 4.0 mg/dL Normal 2.5-4.9 [facility] Comment on above: Result Comment: The performance characteristics of phosphorus testing in heparinized plasma have been validated by the individual laboratory site where testing is performed. Testing on heparinized plasma is not approved by the FDA; however, such approval is not necessary. Performed By: #### 2 4362-6 ####STFEANO TROY ([id number])[facility] ([facility] [place] [place])[address] [place] [address] Potassium [Moles/Vol] 4.0 mmol/L Normal 3.5-5.3 [facility] Comment on above: Performed By: #### 2 4362-6 ####STEFANO TROY ([id number])[facility] ([facility] [place] [place])[address] [place] [address] Sodium [Moles/Vol] 139 mmol/L Normal 136-145 [facility] Comment on above: Performed By: #### 2 4362-6 ####STEFANO TROY ([id number])[facility] ([facility] [place] [place])[address] [place] [address] Urea nitrogen [Mass/Vol] 33 mg/dL High 6-23 [facility] Comment on above: Performed By: #### 2 4362-6 ####STEFANO TROY ([id number])[facility] ([facility] [place] [place])[address] [place] [address] XR CHEST 1 VIEWon 08-19-2024 XR CHEST 1 VIEW Normal [facility] XR Chest Single viewon 08-19 [facility] Work Phone: [facility] Work Phone: Radiology Study observation (narrative) [facility] Work Phone: CBC panel Auto (Bld)on 08-18 Erythrocyte distribution width (RBC) [Ratio] 15.9 % High 11.5 - 14.5 % [facility] Hematocrit (Bld) [Volume fraction] 27.8 % Low 36.0 - 46.0 % [facility] Hemoglobin (Bld) [Mass/Vol] 8.9 g/dL Low 12.0 - 16.0 g/dL [facility] Interpretation and review of laboratory results Abnormal [facility] MCH (RBC) [Entitic mass] 29.2 pg 26. 0 - 34.0 pg [facility] MCHC (RBC) [Mass/Vol] 32 g/dL 32.0 - 36.0 g/dL [facility] MCV (RBC) [Entitic vol] 91 fL 80 - 100 fL [facility] Nucleated RBC/100 WBC (Bld) [Ratio] 0.3 % High [facility] Platelets (Bld) [#/Vol] 409 10*3/uL [facility] RBC (Bld) [#/Vol] 3.05 10*6/uL Low [facility] WBC (Bld) [#/Vol] 11.5 10*3/uL High [facility] Erythrocyte distribution width (RBC) [Ratio] 15.9 % High 11.5-14.5 [facility] Comment on above: Performed By: #### 5 8410-2 ####STEFANO TROY ([id number])[facility] ([facility] [place] [place])[address] [place] [address] Hematocrit (Bld) [Volume fraction] 27.8 % Low 36.0-46.0 [facility] Comment on above: Performed By: #### 5 8410-2 ####STEFANO TROY ([id number])[facility] ([facility] [place] [place])[address] [place] [address] Hemoglobin (Bld) [Mass/Vol] 8.9 g/dL Low 12.0-16.0 [facility] Comment on above: Performed By: #### 5 8410-2 ####STEFANO TROY ([id number])[facility] ([facility] [place] [place])[address] [place] [address] MCH (RBC) [Entitic mass] 29.2 pg Normal 26.0-34.0 [facility] Comment on above: Performed By: #### 5 8410-2 ####STEFANO TROY ([id number])[facility] ([facility] [place] [place])[address] [place] [address] MCHC (RBC) [Mass/Vol] 32.0 g/dL Normal 32.0-36.0 [facility] Comment on above: Performed By: #### 5 8410-2 ####STEFANO TROY ([id number])[facility] ([facility] [place] [place])[address] [place] [id number] MCV (RBC) [Entitic vol] 91 fL Normal 80-100 [facility] Comment on above: Performed By: #### 5 8410-2 ####STEFANO TROY ([id number])[facility] ([facility] [place] [place])[address] [place] [phone] Nucleated RBC/100 WBC (Bld) [Ratio] 0.3 /100 WBCs High 0.0-0.0 [facility] Comment on above: Performed By: #### 5 8410-2 ####STEFANO TROY ([id number])[facility] ([facility] [place] [place])[address] [place] [address] Platelets (Bld) [#/Vol] 409 x10*3/uL Normal 150-450 [facility] Comment on above: Performed By: #### 5 8410-2 ####STEFANO TROY ([id number])[facility] ([facility] [place] [place])[address] [place] [address] RBC (Bld) [#/Vol] 3.05 x10*6/uL Low 4.00-5.20 [facility] Comment on above: Performed By: #### 5 8410-2 ####STEFANO TROY ([id number])[facility] ([facility] [place] [place])[address] [place] [address] WBC (Bld) [#/Vol] 11.5 x10*3/uL High 4.4-11.3 [facility] Comment on above: Performed By: #### 5 8410-2 ####STEFANO TROY ([id number])[facility] ([facility] [place] [place])[address] [place] [phone] Glucose Test strip manual (B ld) [Mass/Vol]on 08-18-2024 Glucose [Mass/Vol] 138 mg/dL High 74 - 99 mg/dL [facility] Interpretation and review of laboratory results Abnormal [facility] Glucose [Mass/Vol] 138 mg/dL High 74-99 [facility] Comment on above: Performed By: #### 2 341-6 ####STEFANO TROY ([id number])[facility] ([facility] [place] [place])[address] [place] [address] Glucose [Mass/Vol] 137 mg/dL High 74 - 99 mg/dL [facility] Interpretation and review of laboratory results Abnormal [facility] Glucose [Mass/Vol] 137 mg/dL High 74-99 [facility] Comment on above: Performed By: #### 2 341-6 ####TSEFANO TROY ([id number])[facility] ([facility] [place] [place])[address] [place] [address] Glucose [Mass/Vol] 121 mg/dL High 74 - 99 mg/dL [facility] Interpretation and review of laboratory results Abnormal [facility] Glucose [Mass/Vol] 121 mg/dL High 74-99 [facility] Comment on above: Performed By: #### 2 341-6 ####STEFANO TROY ([id number])[facility] ([facility] [place] [place])[address] [place] [address] Glucose [Mass/Vol] 161 mg/dL High 74 - 99 mg/dL [facility] Interpretation and review of laboratory results Abnormal [facility] Glucose [Mass/Vol] 161 mg/dL High 74-99 [facility] Comment on above: Performed By: #### 2 341-6 ####STEFANO TROY ([id number])[facility] ([facility] [place] [place])[address] [place] [address] Glucose [Mass/Vol] 113 mg/dL High 74 - 99 mg/dL [facility] Interpretation and review of laboratory results Abnormal [facility] Glucose [Mass/Vol] 113 mg/dL High 74-99 [facility] Comment on above: Performed By: #### 2 341-6 ####STEFANO TROY ([id number])[facility] ([facility] [place] [place])[address] [place] [address] Guidance for thoracentesis o f Cheston 08-18-2024 [facility] MM[facility] Work Phone: [place] [address] Work Phone: Radiology Study observation (narrative) [facility] Work Phone: Magnesiumon 08-18-2024 Magnesium [Mass/Vol] 2.08 mg/dL 1.60 - 2.40 mg/dL [facility] Magnesium [Mass/Vol] 2.08 mg/dL Normal 1.60-2.40 [facility] Comment on above: Performed By: #### 1 9123-9 ####STEFANO TROY ([id number])[facility] ([facility] [place] [place])[address] [place] [phone] Magnesium [Mass/Vol]on 08-18 Interpretation and review of laboratory results Normal [facility] No Panel Informationon 08-18 [facility] Renal function 2000 panelon 08-18-2024 Albumin BCP dye [Mass/Vol] 3 g/dL Low 3.4 - 5.0 g/dL [facility] Anion gap [Moles/Vol] 12 mmol/L 10 - 2 0 mmol/L [facility] Calcium [Mass/Vol] 7.8 mg/dL Low 8.6 - 10. 3 mg/dL [facility] Chloride [Moles/Vol] 106 mmol/L 98 - 10 7 mmol/L [facility] CO2 [Moles/Vol] 25 mmol/L 21 - 32 mmol/L [facility] Creatinine [Mass/Vol] 0.79 mg/dL 0.50 - 1.05 mg/dL [facility] GFR/1.73 sq M.predicted among non-blacks MDRD (S/P/Bld) [Vol rate/Area] 79 mL/min/{1.73_m2} - PINF [facility] Glucose [Mass/Vol] 118 mg/dL High 74 - 99 mg/dL [facility] Interpretation and review of laboratory results Abnormal [facility] Phosphate [Mass/Vol] 3.6 mg/dL 2.5 - 4 .9 mg/dL [facility] Potassium [Moles/Vol] 4.2 mmol/L 3.5 - 5.3 mmol/L [facility] Sodium [Moles/Vol] 139 mmol/L 136 - 145 mmol/L [facility] Urea nitrogen [Mass/Vol] 35 mg/dL High 6 - 23 mg/d L [facility] Albumin BCP dye [Mass/Vol] 3.0 g/dL Low 3.4-5.0 [facility] Comment on above: Performed By: #### 2 4362-6 ####STEFANO SYDNI ([id number])[facility] ([facility] [place] [place])[address] [place] [address] Anion gap [Moles/Vol] 12 mmol/L Normal 10-20 [facility] Comment on above: Performed By: #### 2 4362-6 ####STEFANO TROY ([id number])[facility] ([facility] [place] [place])[address] [place] [address] Calcium [Mass/Vol] 7.8 mg/dL Low 8.6-10.3 [facility] Comment on above: Performed By: #### 2 4362-6 ####STEFANO TROY ([id number])[facility] ([facility] [place] [place])[address] [place] [address] Chloride [Moles/Vol] 106 mmol/L Normal 98-107 [facility] Comment on above: Performed By: #### 2 4362-6 ####STEFANO TROY ([id number])[facility] ([facility] [place] [place])[address] [place] [address] CO2 [Moles/Vol] 25 mmol/L Normal 21-32 [facility] Comment on above: Performed By: #### 2 4362-6 ####STEFANO TROY ([id number])[facility] ([facility] [place] [place])[address] [place] [address] Creatinine [Mass/Vol] 0.79 mg/dL Normal 0.50-1.05 [facility] Comment on above: Performed By: #### 2 4362-6 ####STEFANO TROY ([id number])[facility] ([facility] [place] [place])[address] [place] [address] Glomerular filtration rate/1.73 sq M.predicted 79 mL/min/1.73m*2 Normal >60 [facility] Comment on above: Result Comment: Calc ulations of estimated GFR are performed using the 2020 CKD-EPI Study Refit equation without the race variable for the IDMS-Traceable creatinine methods.https://jasn.asnjournals.org/content/ /ASN.3644097056 Performed By: #### 2 4362-6 ####STEFANO TROY ([id number])[facility] ([facility] [place] [place])[address] [place] [address] Glucose [Mass/Vol] 118 mg/dL High 74-99 [facility] Comment on above: Performed By: #### 2 4362-6 ####STEFANO TROY ([id number])[facility] ([facility] [place] [place])[address] [place] [address] Phosphate [Mass/Vol] 3.6 mg/dL Normal 2.5-4.9 [facility] Comment on above: Result Comment: The performance characteristics of phosphorus testing in heparinized plasma have been validated by the individual laboratory site where testing is performed. Testing on heparinized plasma is not approved by the FDA; however, such approval is not necessary. Performed By: #### 2 4362-6 ####STEFANO TROY ([id number])[facility] ([facility] [place] [place])[address] [place] [address] Potassium [Moles/Vol] 4.2 mmol/L Normal 3.5-5.3 [facility] Comment on above: Performed By: #### 2 4362-6 ####STEFANO TROY ([id number])[facility] ([facility] [place] [place])[address] [place] [address] Sodium [Moles/Vol] 139 mmol/L Normal 136-145 [facility] Comment on above: Performed By: #### 2 4362-6 ####STEFANO TROY ([id number])[facility] ([facility] [place] [place])[address] [place] [address] Urea nitrogen [Mass/Vol] 35 mg/dL High 6-23 [facility] Comment on above: Performed By: #### 2 4362-6 ####STEFANO TROY ([id number])[facility] ([facility] [place] [place])[address] [place] [address] US THORACENTESISon 4 US THORACENTESIS Normal [facility] XR CHEST 1 VIEWon 08-18-2024 XR CHEST 1 VIEW Normal [facility] XR CHEST 2 VIEWSon 4 XR CHEST 2 VIEWS Normal [facility] XR Chest 2 Viewson [facility] Work Phone: Radiology Study observation (narrative) [facility] Work Phone: XR Chest 2 ViewsOrdered By: Elisabet Borges on 08-18-2024 [facility] Work Phone: XR Chest Single viewon 08-18 [facility] MM[facility] MM[facility] Work Phone: [facility] Work Phone: Radiology Study observation (narrative) [facility] Work Phone: Bacteria identified Cx Nom ( Bld)on 08-17-2024 Interpretation and review of laboratory results Normal [facility] Blood Cultureon 08-17-2024 Bacteria identified Cx Nom (Bld) No growth at 4 days - FINAL REPORT [facility] CBC panel Auto (Bld)on 08-17 Erythrocyte distribution width (RBC) [Ratio] 15.3 % High 11.5 - 14.5 % [facility] Hematocrit (Bld) [Volume fraction] 25.5 % Low 36.0 - 46.0 % [facility] Hemoglobin (Bld) [Mass/Vol] 8.4 g/dL Low 12.0 - 16.0 g/dL [facility] Interpretation and review of laboratory results Abnormal [facility] MCH (RBC) [Entitic mass] 30.3 pg 26. 0 - 34.0 pg [facility] MCHC (RBC) [Mass/Vol] 32.9 g/dL 32.0 - 36.0 g/dL [facility] MCV (RBC) [Entitic vol] 92 fL 80 - 100 fL [facility] Nucleated RBC/100 WBC (Bld) [Ratio] 0.4 % High [facility] Platelets (Bld) [#/Vol] 342 10*3/uL [facility] RBC (Bld) [#/Vol] 2.77 10*6/uL Low [facility] WBC (Bld) [#/Vol] 11.9 10*3/uL High [facility] Erythrocyte distribution width (RBC) [Ratio] 15.3 % High 11.5-14.5 [facility] Comment on above: Performed By: #### 5 8410-2 ####STEFANO TROY ([id number])[facility] ([facility] [place] [place])[address] [place] [address] Hematocrit (Bld) [Volume fraction] 25.5 % Low 36.0-46.0 [facility] Comment on above: Performed By: #### 5 8410-2 ####STEFANO TROY ([id number])[facility] ([facility] [place] [place])[address] [place] [address] Hemoglobin (Bld) [Mass/Vol] 8.4 g/dL Low 12.0-16.0 [facility] Comment on above: Performed By: #### 5 8410-2 ####STEFANO TROY ([id number])[facility] ([facility] [place] [place])[address] [place] [id number] MCH (RBC) [Entitic mass] 30.3 pg Normal 26.0-34.0 [facility] Comment on above: Performed By: #### 5 8410-2 ####STEFANO TROY ([id number])[facility] ([facility] [place] [place])[address] [place] [address] MCHC (RBC) [Mass/Vol] 32.9 g/dL Normal 32.0-36.0 [facility] Comment on above: Performed By: #### 5 8410-2 ####STEFANO TROY ([id number])[facility] ([facility] [place] [place])[address] [place] [address] MCV (RBC) [Entitic vol] 92 fL Normal 80-100 [facility] Comment on above: Performed By: #### 5 8410-2 ####STEFANO TROY ([id number])[facility] ([facility] [place] [place])[address] [place] [phone] Nucleated RBC/100 WBC (Bld) [Ratio] 0.4 /100 WBCs High 0.0-0.0 [facility] Comment on above: Performed By: #### 5 8410-2 ####STEFANO TROY ([id number])[facility] ([facility] [place] [place])[address] [place] [address] Platelets (Bld) [#/Vol] 342 x10*3/uL Normal 150-450 [facility] Comment on above: Performed By: #### 5 8410-2 ####STEFANO TROY ([id number])[facility] ([facility] [place] [place])[address] [place] [address] RBC (Bld) [#/Vol] 2.77 x10*6/uL Low 4.00-5.20 [facility] Comment on above: Performed By: #### 5 8410-2 ####STEFANO TROY ([id number])[facility] ([facility] [place] [place])[address] [place] [address] WBC (Bld) [#/Vol] 11.9 x10*3/uL High 4.4-11.3 [facility] Comment on above: Performed By: #### 5 8410-2 ####STEFANO TROY ([id number])[facility] ([facility] [place], [place])[address] [place] [address] ECG 12 LeadOrdered By: Cassius Mei on 08-17-2024 Atrial Rate 104 BPM [facility] Work Phone: [phone] P [place] 270 degrees [facility] Work Phone: [phone] P Offset 206 ms [facility] Work Phone: [phone] P Onset 146 [facility] Work Phone: [phone] HI Interval 130 ms [facility] Work Phone: [phone] Q Onset 211 ms [facility] Work Phone: [phone] QRS Count 17 beats [facility] Work Phone: [phone] QRS Duration 146 ms [facility] Work Phone: [phone] QT Interval 410 ms [facility] Work Phone: [phone] QTC Calculation(Bazett) 539 ms [facility] Work Phone: [phone] QTC Fredericia 492 ms [facility] Work Phone: [phone] R [place] 96 degrees [facility] Work Phone: [phone] T [place] -2 degrees [facility] Work Phone: [phone] T Offset 416 ms [facility] Work Phone: [phone] Ventricular Rate 104 BPM [facility] Work Phone: [phone] [facility] Work Phone: [phone] ECG 12 Leadon 08-17-2024 [facility] Work Phone: [phone] Electrocardiogram 12-lead HI N for arrhythmiaon 08-17-2024 Atrial Rate 99 BPM [facility] Work Phone: [phone] P Offset 132 [facility] Work Phone: [phone] P Onset 96 [facility] Work Phone: [phone] HI Interval 128 ms [facility] Work Phone: [phone] Q Onset 218 ms [facility] Work Phone: [phone] QRS Count 16 beats [facility] Work Phone: [phone] QRS Duration 138 ms [facility] Work Phone: [phone] QT Interval 296 ms [facility] Work Phone: [phone] QTC Calculation(Bazett) 379 ms [facility] Work Phone: [phone] QTC Fredericia 349 ms [facility] Work Phone: [phone] R [place] 145 degrees [facility] Work Phone: [phone] T [place] 44 degrees [facility] Work Phone: [phone] T Offset 366 ms [facility] Work Phone: Ventricular Rate 99 BPM [facility] Work Phone: [facility] Work Phone: [facility] Work Phone: Glucose Test strip manual (B ld) [Mass/Vol]on 08-17-2024 Glucose [Mass/Vol] 117 mg/dL High 74 - 99 mg/dL [facility] Interpretation and review of laboratory results Abnormal [facility] Glucose [Mass/Vol] 117 mg/dL High 74-99 [facility] Comment on above: Performed By: #### 2 341-6 ####STEFANO TROY ([id number])[facility] ([facility] [place] [place])[address] [place] [address] Glucose [Mass/Vol] 156 mg/dL High 74 - 99 mg/dL [facility] Interpretation and review of laboratory results Abnormal [facility] Glucose [Mass/Vol] 156 mg/dL High 74-99 [facility] Comment on above: Performed By: #### 2 341-6 ####STEFANO TROY ([id number])[facility] ([facility] [place] [place])[address] [place] [address] Glucose [Mass/Vol] 122 mg/dL High 74 - 99 mg/dL [facility] Interpretation and review of laboratory results Abnormal [facility] Glucose [Mass/Vol] 122 mg/dL High 74-99 [facility] Comment on above: Performed By: #### 2 341-6 ####STEFANO TROY ([id number])[facility] ([facility] [place] [place])[address] [place] [address] Glucose [Mass/Vol] 116 mg/dL High 74 - 99 mg/dL [facility] Interpretation and review of laboratory results Abnormal [facility] Glucose [Mass/Vol] 116 mg/dL High 74-99 [facility] Comment on above: Performed By: #### 2 341-6 ####STEFANO TROY ([id number])[facility] ([facility] [place] [place])[address] [place] [address] Magnesiumon 08-17-2024 Magnesium [Mass/Vol] 2.22 mg/dL 1.60 - 2.40 mg/dL [facility] Magnesium [Mass/Vol] 2.22 mg/dL Normal 1.60-2.40 [facility] Comment on above: Performed By: #### 1 9123-9 ####STEFANO TROY ([id number])[facility] ([facility] [place] [place])[address] [place] [address] Magnesium [Mass/Vol]on 08-17 Interpretation and review of laboratory results Normal [facility] No Panel Informationon 08-17 [facility] Renal function 2000 panelon 08-17-2024 Albumin BCP dye [Mass/Vol] 3 g/dL Low 3.4 - 5.0 g/dL [facility] Anion gap [Moles/Vol] 13 mmol/L 10 - 2 0 mmol/L [facility] Calcium [Mass/Vol] 7.6 mg/dL Low 8.6 - 10. 3 mg/dL [facility] Chloride [Moles/Vol] 103 mmol/L 98 - 10 7 mmol/L [facility] CO2 [Moles/Vol] 23 mmol/L 21 - 32 mmol/L [facility] Creatinine [Mass/Vol] 0.83 mg/dL 0.50 - 1.05 mg/dL [facility] GFR/1.73 sq M.predicted among non-blacks MDRD (S/P/Bld) [Vol rate/Area] 74 mL/min/{1.73_m2} - PINF [facility] Glucose [Mass/Vol] 119 mg/dL High 74 - 99 mg/dL [facility] Interpretation and review of laboratory results Abnormal [facility] Phosphate [Mass/Vol] 3 mg/dL 2.5 - 4 .9 mg/dL [facility] Potassium [Moles/Vol] 3.9 mmol/L 3.5 - 5.3 mmol/L [facility] Sodium [Moles/Vol] 135 mmol/L Low 136 - 145 mmol/L [facility] Urea nitrogen [Mass/Vol] 38 mg/dL High 6 - 23 mg/d L [facility] Albumin BCP dye [Mass/Vol] 3.0 g/dL Low 3.4-5.0 [facility] Comment on above: Performed By: #### 2 436-6 ####STEFANO TROY ([id number])[facility] ([facility] [place] [place])[address] [place] [address] Anion gap [Moles/Vol] 13 mmol/L Normal 10-20 [facility] Comment on above: Performed By: #### 2 436-6 ####STEFANO TROY ([id number])[facility] ([facility] [place] [place])[address] [place] [id number] Calcium [Mass/Vol] 7.6 mg/dL Low 8.6-10.3 [facility] Comment on above: Performed By: #### 2 436-6 ####STEFANO TROY ([id number])[facility] ([facility] [place] [place])[address] [place] [address] Chloride [Moles/Vol] 103 mmol/L Normal 98-107 [facility] Comment on above: Performed By: #### 2 436-6 ####STEFANO TROY ([id number])[facility] ([facility] [place] [place])[address] [place] [address] CO2 [Moles/Vol] 23 mmol/L Normal 21-32 [facility] Comment on above: Performed By: #### 2 4362-6 ####STEFANO TROY ([id number])[facility] ([facility] [place] [place])[address] [place] [address] Creatinine [Mass/Vol] 0.83 mg/dL Normal 0.50-1.05 [facility] Comment on above: Performed By: #### 2 4362-6 ####STEFANO TROY ([id number])[facility] ([facility] [place] [place])[address] [place] [address] Glomerular filtration rate/1.73 sq M.predicted 74 mL/min/1.73m*2 Normal >60 [facility] Comment on above: Result Comment: Calc ulations of estimated GFR are performed using the 2020 CKD-EPI Study Refit equation without the race variable for the IDMS-Traceable creatinine methods.https://jasn.asnjournals.org/content/ /ASN.6560124828 Performed By: #### 2 4362-6 ####STEFANO TROY ([id number])[facility] ([facility] [place] [place])[address] [place] [address] Glucose [Mass/Vol] 119 mg/dL High 74-99 [facility] Comment on above: Performed By: #### 2 4362-6 ####STEFANO TROY ([id number])[facility] ([facility] [place] [place])[address] [place] [address] Phosphate [Mass/Vol] 3.0 mg/dL Normal 2.5-4.9 [facility] Comment on above: Result Comment: The performance characteristics of phosphorus testing in heparinized plasma have been validated by the individual laboratory site where testing is performed. Testing on heparinized plasma is not approved by the FDA; however, such approval is not necessary. Performed By: #### 2 4362-6 ####STEFANO TROY ([id number])[facility] ([facility] [place] [place])[address] [place] [address] Potassium [Moles/Vol] 3.9 mmol/L Normal 3.5-5.3 [facility] Comment on above: Performed By: #### 2 4362-6 ####STEFANO TROY ([id number])[facility] ([facility] [place] [place])[address] [place] [address] Sodium [Moles/Vol] 135 mmol/L Low 136-145 [facility] Comment on above: Performed By: #### 2 4362-6 ####STEFANO TROY ([id number])[facility] ([facility] [place] [place])[address] [place] [address] Urea nitrogen [Mass/Vol] 38 mg/dL High 6-23 [facility] Comment on above: Performed By: #### 2 4362-6 ####STEFANO SYDNI ([id number])[facility] ([facility] [place] [place])[address] [place] [address] XR CHEST 2 VIEWSon 4 XR CHEST 2 VIEWS Normal [facility] XR Chest 2 Viewson 4 UH MMODAL UH MMODAL [facility] Work Phone: [facility] Work Phone: Radiology Study observation (narrative) [facility] Work Phone: CBC W Auto Differential pane l (Bld)on 08-16-2024 Basophils (Bld) [#/Vol] 0.02 10*3/uL [facility] Basophils/100 WBC (Bld) 0.2 % 0.0 - 2.0 % [facility] Eosinophils (Bld) [#/Vol] 0.27 10*3/uL [facility] Eosinophils/100 WBC (Bld) 2.6 % 0.0 - 6.0 % [facility] Erythrocyte distribution width (RBC) [Ratio] 15.2 % High 11.5 - 14.5 % [facility] Hematocrit (Bld) [Volume fraction] 25.2 % Low 36.0 - 46.0 % [facility] Hemoglobin (Bld) [Mass/Vol] 8.5 g/dL Low 12.0 - 16.0 g/dL [facility] Immature granulocytes (Bld) [#/Vol] 0.09 10*3/uL [facility] Immature granulocytes/100 WBC (Bld) 0.9 % 0.0 - 0.9 % [facility] Interpretation and review of laboratory results Abnormal [facility] Lymphocytes (Bld) [#/Vol] 1.76 10*3/uL [facility] Lymphocytes/100 WBC (Bld) 17.3 % 13.0 - 44.0 % [facility] MCH (RBC) [Entitic mass] 30.5 pg 26. 0 - 34.0 pg [facility] MCHC (RBC) [Mass/Vol] 33.7 g/dL 32.0 - 36.0 g/dL [facility] MCV (RBC) [Entitic vol] 90 fL 80 - 100 fL [facility] Monocytes (Bld) [#/Vol] 1.05 10*3/uL [facility] Monocytes/100 WBC (Bld) 10.3 % 2.0 - 10.0 % [facility] Neutrophils (Bld) [#/Vol] 7.01 10*3/uL [facility] Neutrophils/100 WBC (Bld) 68.7 % 40.0 - 80.0 % [facility] Nucleated RBC/100 WBC (Bld) [Ratio] 0.6 % [facility] Platelets (Bld) [#/Vol] 287 10*3/uL [facility] RBC (Bld) [#/Vol] 2.79 10*6/uL Low Unive [facility] WBC (Bld) [#/Vol] 10.2 10*3/uL [facility] Basophils (Bld) [#/Vol] 0.02 x10*3/uL Normal 0.00-0.10 [facility] Comment on above: Performed By: #### 5 7021-8 ####STEFANO TROY ([id number])[facility] ([facility] [place], [place])[address] [place] [address] Basophils/100 WBC (Bld) 0.2 % Normal 0.0-2.0 [facility] Comment on above: Performed By: #### 5 7021-8 ####STEFANO TROY ([id number])[facility] ([facility] [place] [place])[address] [place] [address] Eosinophils (Bld) [#/Vol] 0.27 x10*3/uL Normal 0.00-0.40 [facility] Comment on above: Performed By: #### 5 7021-8 ####STEFANO TROY ([id number])[facility] ([facility] [place] [place])[address] [place] [address] Eosinophils/100 WBC (Bld) 2.6 % Normal 0.0-6.0 [facility] Comment on above: Performed By: #### 5 7021-8 ####STEFANO TROY ([id number])[facility] ([facility] [place] [place])[address] [place] [address] Erythrocyte distribution width (RBC) [Ratio] 15.2 % High 11.5-14.5 [facility] Comment on above: Performed By: #### 5 7021-8 ####STEFANO TROY ([id number])[facility] ([facility] [place] [place])[address] [place] [address] Hematocrit (Bld) [Volume fraction] 25.2 % Low 36.0-46.0 [facility] Comment on above: Performed By: #### 5 7021-8 ####STEFANO TROY ([id number])[facility] ([facility] [place] [place])[address] [place] [address] Hemoglobin (Bld) [Mass/Vol] 8.5 g/dL Low 12.0-16.0 [facility] Comment on above: Performed By: #### 5 7021-8 ####STEFANO TROY ([id number])[facility] ([facility] [place] [place])[address] [place] [address] Immature granulocytes (Bld) [#/Vol] 0.09 x10*3/uL Normal 0.00-0.50 [facility] Comment on above: Performed By: #### 5 7021-8 ####STEFANO TROY ([id number])[facility] ([facility] [place] [place])[address] [place] [address] Immature granulocytes/100 WBC (Bld) 0.9 % Normal 0.0-0.9 [facility] Comment on above: Result Comment: Laurie ture Granulocyte Count (IG) includes promyelocytes, myelocytes and metamyelocytes but does not include bands. Percent differential counts (%) should be interpreted in the context of the absolute cell counts (cells/UL). Performed By: #### 5 7021-8 ####STEFANO TROY ([id number])[facility] ([facility] [place] [place])[address] [place] [address] Lymphocytes (Bld) [#/Vol] 1.76 x10*3/uL Normal 0.80-3.00 [facility] Comment on above: Performed By: #### 5 7021-8 ####STEFANO TROY ([id number])[facility] ([facility] [place] [place])[address] [place] [address] Lymphocytes/100 WBC (Bld) 17.3 % Normal 13.0-44.0 [facility] Comment on above: Performed By: #### 5 7021-8 ####STEFANO TROY ([id number])[facility] ([facility] [place] [place])[address] [place] [address] MCH (RBC) [Entitic mass] 30.5 pg Normal 26.0-34.0 [facility] Comment on above: Performed By: #### 5 7021-8 ####STEFANO TROY ([id number])[facility] ([facility] [place] [place])[address] [place] [address] MCHC (RBC) [Mass/Vol] 33.7 g/dL Normal 32.0-36.0 [facility] Comment on above: Performed By: #### 5 7021-8 ####STEFANO TROY ([id number])[facility] ([facility] [place] [place])[address] [place] [address] MCV (RBC) [Entitic vol] 90 fL Normal 80-100 [facility] Comment on above: Performed By: #### 5 7021-8 ####STEFANO TROY ([id number])[facility] ([facility] [place] [place])[address] [place], [place] [id number] Monocytes (Bld) [#/Vol] 1.05 x10*3/uL High 0.05-0.80 [facility] Comment on above: Performed By: #### 5 7021-8 ####STEFANO TROY ([id number])[facility] ([facility] [place] [place])[address] [place] [address] Monocytes/100 WBC (Bld) 10.3 % Normal 2.0-10.0 [facility] Comment on above: Performed By: #### 5 7021-8 ####STEFANO TROY ([id number])[facility] ([facility] [place] [place])[address] [place] [address] Neutrophils (Bld) [#/Vol] 7.01 x10*3/uL High 1.60-5.50 [facility] Comment on above: Result Comment: Perc ent differential counts (%) should be interpreted in the context of the absolute cell counts (cells/uL). Performed By: #### 5 7021-8 ####STEFANO TROY ([id number])[facility] ([facility] [place] [place])[address] [place] [id number] Neutrophils/100 WBC (Bld) 68.7 % Normal 40.0-80.0 [facility] Comment on above: Performed By: #### 5 7021-8 ####STEFANO TROY ([id number])[facility] ([facility] [place] [place])[address] [place] [address] Nucleated RBC/100 WBC (Bld) [Ratio] 0.6 /100 WBCs High 0.0-0.0 [facility] Comment on above: Performed By: #### 5 7021-8 ####STEFANO TROY ([id number])[facility] ([facility] [place] [place])[address] [place] [phone] Platelets (Bld) [#/Vol] 287 x10*3/uL Normal 150-450 [facility] Comment on above: Performed By: #### 5 7021-8 ####STEFANO TROY ([id number])[facility] ([facility] [place] [place])[address] [place] [id number] RBC (Bld) [#/Vol] 2.79 x10*6/uL Low 4.00-5.20 [facility] Comment on above: Performed By: #### 5 7021-8 ####STEFANO TROY ([id number])[facility] ([facility] [place] [place])[address] [place] [address] WBC (Bld) [#/Vol] 10.2 x10*3/uL Normal 4.4-11.3 [facility] Comment on above: Performed By: #### 5 7021-8 ####STEFANO TROY ([id number])[facility] ([facility] [place] [place])[address] [place] [address] Glucose Test strip manual (B ld) [Mass/Vol]on 08-16-2024 Glucose [Mass/Vol] 122 mg/dL High 74 - 99 mg/dL [facility] Interpretation and review of laboratory results Abnormal [facility] Glucose [Mass/Vol] 122 mg/dL High 74-99 [facility] Comment on above: Performed By: #### 2 341-6 ####STEFANO TROY ([id number])[facility] ([facility] [place] [place])[address] [place] [phone] Glucose [Mass/Vol] 130 mg/dL High 74 - 99 mg/dL [facility] Interpretation and review of laboratory results Abnormal [facility] Glucose [Mass/Vol] 130 mg/dL High 74-99 [facility] Comment on above: Performed By: #### 2 341-6 ####STEFANO TROY ([id number])[facility] ([facility] [place] [place])[address] [place] [address] Glucose [Mass/Vol] 126 mg/dL High 74 - 99 mg/dL [facility] Interpretation and review of laboratory results Abnormal [facility] Glucose [Mass/Vol] 126 mg/dL High 74-99 [facility] Comment on above: Performed By: #### 2 341-6 ####STEFANO TROY ([id number])[facility] ([facility] [place] [place])[address] [place] [id number] Glucose [Mass/Vol] 122 mg/dL High 74 - 99 mg/dL [facility] Interpretation and review of laboratory results Abnormal [facility] Glucose [Mass/Vol] 122 mg/dL High 74-99 [facility] Comment on above: Performed By: #### 2 341-6 ####STEFANO TROY ([id number])[facility] ([facility] [place] [place])[address] [place] [phone] Magnesiumon 08-16-2024 Magnesium [Mass/Vol] 2.34 mg/dL 1.60 - 2.40 mg/dL [facility] Magnesium [Mass/Vol] 2.34 mg/dL Normal 1.60-2.40 [facility] Comment on above: Performed By: #### 1 9123-9 ####STEFANO SYDNI ([id number])[facility] ([facility] [place] [place])[address] [place] [address] Magnesium [Mass/Vol]on 08-16 Interpretation and review of laboratory results Normal [facility] No Panel Informationon 08-16 [facility] Blood Expiration Date 09/10/2024 11:59:00 PM EST [facility] Dispense Status RE [facility] PRODUCT BLOOD TYPE 5[address] [facility] PRODUCT CODE [id number] [facility] Unit ABO O [facility] RH Positive [facility] UNIT VOLUME 350 [facility] XM INTEP COMP [facility] Prepare RBC: 4 Unitson 08-16 Blood Expiration Date 09/04/2024 11:59:0 0 PM EST [facility] Dispense Status TR [facility] Unit Number [id number] [facility] Unit Number [id number] [facility] Unit Number [id number] [facility] Unit Number [id number] [facility] Renal function 2000 panelon 08-16-2024 Albumin BCP dye [Mass/Vol] 3 g/dL Low 3.4 - 5.0 g/dL [facility] Anion gap [Moles/Vol] 12 mmol/L 10 - 2 0 mmol/L [facility] Calcium [Mass/Vol] 7.5 mg/dL Low 8.6 - 10. 3 mg/dL [facility] Chloride [Moles/Vol] 102 mmol/L 98 - 10 7 mmol/L [facility] CO2 [Moles/Vol] 22 mmol/L 21 - 32 mmol/L [facility] Creatinine [Mass/Vol] 0.81 mg/dL 0.50 - 1.05 mg/dL [facility] GFR/1.73 sq M.predicted among non-blacks MDRD (S/P/Bld) [Vol rate/Area] 76 mL/min/{1.73_m2} - PINF [facility] Glucose [Mass/Vol] 119 mg/dL High 74 - 99 mg/dL [facility] Interpretation and review of laboratory results Abnormal [facility] Phosphate [Mass/Vol] 3.4 mg/dL 2.5 - 4 .9 mg/dL [facility] Potassium [Moles/Vol] 4 mmol/L 3.5 - 5.3 mmol/L [facility] Sodium [Moles/Vol] 132 mmol/L Low 136 - 145 mmol/L [facility] Urea nitrogen [Mass/Vol] 40 mg/dL High 6 - 23 mg/d L [facility] Albumin BCP dye [Mass/Vol] 3.0 g/dL Low 3.4-5.0 [facility] Comment on above: Performed By: #### 2 4362-6 ####STEFANO TROY ([id number])[facility] ([facility] [place] [place])[address] [place] [address] Anion gap [Moles/Vol] 12 mmol/L Normal 10-20 [facility] Comment on above: Performed By: #### 2 4362-6 ####STEFANO TROY ([id number])[facility] ([facility] [place], [place])[address] [place] [address] Calcium [Mass/Vol] 7.5 mg/dL Low 8.6-10.3 [facility] Comment on above: Performed By: #### 2 4362-6 ####STEFANO TROY ([id number])[facility] ([facility] – [place], [place])[address] [place] [id number] Chloride [Moles/Vol] 102 mmol/L Normal 98-107 [facility] Comment on above: Performed By: #### 2 4362-6 ####STEFANO TROY ([id number])[facility] ([facility] – [place], [place])[address] [place] [address] CO2 [Moles/Vol] 22 mmol/L Normal 21-32 [facility] Comment on above: Performed By: #### 2 4362-6 ####STEFANO TROY ([id number])[facility] ([facility] – [place], [place])[address] [place] [address] Creatinine [Mass/Vol] 0.81 mg/dL Normal 0.50-1.05 [facility] Comment on above: Performed By: #### 2 4362-6 ####STEFANO TROY ([id number])[facility] ([facility] – [place], [place])[address] [place] [address] Glomerular filtration rate/1.73 sq M.predicted 76 mL/min/1.73m*2 Normal >60 [facility] Comment on above: Result Comment: Calc ulations of estimated GFR are performed using the 2020 CKD-EPI Study Refit equation without the race variable for the IDMS-Traceable creatinine methods.https://jasn.asnjournals.org/content/early /ASN.6417709568 Performed By: #### 2 4362-6 ####STEFANO TROY ([id number])[facility] ([facility] – [place], [place])[address] [place] [address] Glucose [Mass/Vol] 119 mg/dL High 74-99 [facility] Comment on above: Performed By: #### 2 4362-6 ####STEFANO TROY ([id number])[facility] ([facility] – [place], [place])[address] [place] [address] Phosphate [Mass/Vol] 3.4 mg/dL Normal 2.5-4.9 [facility] Comment on above: Result Comment: The performance characteristics of phosphorus testing in heparinized plasma have been validated by the individual laboratory site where testing is performed. Testing on heparinized plasma is not approved by the FDA; however, such approval is not necessary. Performed By: #### 2 4362-6 ####STEFANO TROY ([id number])[facility] ([facility] – [place], [place])[address] [place] [address] Potassium [Moles/Vol] 4.0 mmol/L Normal 3.5-5.3 [facility] Comment on above: Performed By: #### 2 4362-6 ####STEFANO TROY ([id number])[facility] ([facility] – [place], [place])[address] [place] [address] Sodium [Moles/Vol] 132 mmol/L Low 136-145 [facility] Comment on above: Performed By: #### 2 4362-6 ####STEFANO TROY ([id number])[facility] ([facility] – [place], [place])[address] [place] [address] Urea nitrogen [Mass/Vol] 40 mg/dL High 6-23 [facility] Comment on above: Performed By: #### 2 4362-6 ####STEFANO TROY ([id number])[facility] ([facility] – [place], [place])[address] [place] [address] Bacteria identified Respirat ory culture Nom (Unsp spec)Ordered By: Joann Dennis on 08-15-2024 Interpretation and review of laboratory results Abnormal [facility] Microscopic observation Gram stain Nom (Unsp spec) Gram stain indicates specimen contains significant salivary contamination. Abnormal [facility] CBC W Auto Differential pane l (Bld)on 08-15-2024 Basophils (Bld) [#/Vol] 0.02 10*3/uL [facility] Basophils/100 WBC (Bld) 0.2 % 0.0 - 2.0 % [facility] Eosinophils (Bld) [#/Vol] 0.23 10*3/uL [facility] Eosinophils/100 WBC (Bld) 2.2 % 0.0 - 6.0 % [facility] Erythrocyte distribution width (RBC) [Ratio] 15.5 % High 11.5 - 14.5 % [facility] Hematocrit (Bld) [Volume fraction] 26.6 % Low 36.0 - 46.0 % [facility] Hemoglobin (Bld) [Mass/Vol] 8.7 g/dL Low 12.0 - 16.0 g/dL [facility] Immature granulocytes (Bld) [#/Vol] 0.05 10*3/uL [facility] Immature granulocytes/100 WBC (Bld) 0.5 % 0.0 - 0.9 % [facility] Interpretation and review of laboratory results Abnormal [facility] Lymphocytes (Bld) [#/Vol] 2.48 10*3/uL [facility] Lymphocytes/100 WBC (Bld) 24.1 % 13.0 - 44.0 % [facility] MCH (RBC) [Entitic mass] 29.6 pg 26. 0 - 34.0 pg [facility] MCHC (RBC) [Mass/Vol] 32.7 g/dL 32.0 - 36.0 g/dL [facility] MCV (RBC) [Entitic vol] 91 fL 80 - 100 fL [facility] Monocytes (Bld) [#/Vol] 1.1 10*3/uL [facility] Monocytes/100 WBC (Bld) 10.7 % 2.0 - 10.0 % [facility] Neutrophils (Bld) [#/Vol] 6.41 10*3/uL [facility] Neutrophils/100 WBC (Bld) 62.3 % 40.0 - 80.0 % [facility] Nucleated RBC/100 WBC (Bld) [Ratio] 0.6 % [facility] Platelets (Bld) [#/Vol] 283 10*3/uL [facility] RBC (Bld) [#/Vol] 2.94 10*6/uL [facility] WBC (Bld[facility] [#/Vol] 10.3 10*3/uL [facility] Basophils (Bld) [#/Vol] 0.02 x10*3/uL Normal 0.00-0.10 [facility] Comment on above: Performed By: #### 5 7021-8 ####STEFANO TROY ([id number])[facility] ([facility] – [place], [place])[address] [place] [address] Basophils/100 WBC (Bld) 0.2 % Normal 0.0-2.0 [facility] Comment on above: Performed By: #### 5 7021-8 ####STEFANO TROY ([id number])[facility] ([facility] – [place], [place])[address] [place] [address] Eosinophils (Bld) [#/Vol] 0.23 x10*3/uL Normal 0.00-0.40 [facility] Comment on above: Performed By: #### 5 7021-8 ####STEFANO TROY ([id number])[facility] ([facility] – [place], [place])[address] [place] [address] Eosinophils/100 WBC (Bld) 2.2 % Normal 0.0-6.0 [facility] Comment on above: Performed By: #### 5 7021-8 ####STEFANO TROY ([id number])[facility] ([facility] – [place], [place])[address] [place] [address] Erythrocyte distribution width (RBC) [Ratio] 15.5 % High 11.5-14.5 [facility] Comment on above: Performed By: #### 5 7021-8 ####STEFANO TROY ([id number])[facility] ([facility] – [place], [place])[address] [place] [address] Hematocrit (Bld) [Volume fraction] 26.6 % Low 36.0-46.0 [facility] Comment on above: Performed By: #### 5 7021-8 ####STEFANO TROY ([id number])[facility] ([facility] – [place], [place])[address] [place] [phone] Hemoglobin (Bld) [Mass/Vol] 8.7 g/dL Low 12.0-16.0 [facility] Comment on above: Performed By: #### 5 7021-8 ####STEFANO TROY ([id number])[facility] ([facility] – [place], [place])[address] [place] [id number] Immature granulocytes (Bld) [#/Vol] 0.05 x10*3/uL Normal 0.00-0.50 [facility] Comment on above: Performed By: #### 5 7021-8 ####STEFANO TROY ([id number])[facility] ([facility] – [place], [place])[address] [place] [address] Immature granulocytes/100 WBC (Bld) 0.5 % Normal 0.0-0.9 [facility] Comment on above: Result Comment: Laurie ture Granulocyte Count (IG) includes promyelocytes, myelocytes and metamyelocytes but does not include bands. Percent differential counts (%) should be interpreted in the context of the absolute cell counts (cells/UL). Performed By: #### 5 7021-8 ####STEFANO TROY ([id number])[facility] ([facility] – [place], [place])[address] [place] [address] Lymphocytes (Bld) [#/Vol] 2.48 x10*3/uL Normal 0.80-3.00 [facility] Comment on above: Performed By: #### 5 7021-8 ####STEFANO TROY ([id number])[facility] ([facility] – [place], [place])[address] [place] [address] Lymphocytes/100 WBC (Bld) 24.1 % Normal 13.0-44.0 [facility] Comment on above: Performed By: #### 5 7021-8 ####STEFANO TROY ([id number])[facility] ([facility] – [place], [place])[address] [place], [place] [id number] MCH (RBC) [Entitic mass] 29.6 pg Normal 26.0-34.0 [facility] Comment on above: Performed By: #### 5 7021-8 ####STEFANO TROY ([id number])[facility] ([facility] – [place], [place])[address] [place], [place] [address] MCHC (RBC) [Mass/Vol] 32.7 g/dL Normal 32.0-36.0 [facility] Comment on above: Performed By: #### 5 7021-8 ####STEFANO TROY ([id number])[facility] ([facility] – [place], [place])[address] [place], [place] [id number] MCV (RBC) [Entitic vol] 91 fL Normal 80-100 [facility] Comment on above: Performed By: #### 5 7021-8 ####STEFANO TROY ([id number])[facility] ([facility] [place], [place])[address] [place] [address] Monocytes (Bld) [#/Vol] 1.10 x10*3/uL High 0.05-0.80 [facility] Comment on above: Performed By: #### 5 7021-8 ####STEFANO RTOY ([id number])[facility] ([facility] – [place], [place])[address] [place] [address] Monocytes/100 WBC (Bld) 10.7 % Normal 2.0-10.0 [facility] Comment on above: Performed By: #### 5 7021-8 ####STEFANO TROY ([id number])[facility] ([facility] [place], [place])[address] [place] [phone] Neutrophils (Bld) [#/Vol] 6.41 x10*3/uL High 1.60-5.50 [facility] Comment on above: Result Comment: Perc ent differential counts (%) should be interpreted in the context of the absolute cell counts (cells/uL). Performed By: #### 5 7021-8 ####STEFANO TROY ([id number])[facility] ([facility] – [place], [place])[address] [place] [address] Neutrophils/100 WBC (Bld) 62.3 % Normal 40.0-80.0 [facility] Comment on above: Performed By: #### 5 7021-8 ####STEFANO TROY ([id number])[facility] ([facility] – [place], [place])[address] [place] [address] Nucleated RBC/100 WBC (Bld) [Ratio] 0.6 /100 WBCs High 0.0-0.0 [facility] Comment on above: Performed By: #### 5 7021-8 ####STEFANO TROY ([id number])[facility] ([facility] – [place], [place])[address] [place] [address] Platelets (Bld) [#/Vol] 283 x10*3/uL Normal 150-450 [facility] Comment on above: Performed By: #### 5 7021-8 ####STEFANO TROY ([id number])[facility] ([facility] – [place], [place])[address] [place] [address] RBC (Bld) [#/Vol] 2.94 x10*6/uL Low 4.00-5.20 [facility] Comment on above: Performed By: #### 5 7021-8 ####STEFANO TROY ([id number])[facility] ([facility] – [place], [place])[address] [place] [address] WBC (Bld) [#/Vol] 10.3 x10*3/uL Normal 4.4-11.3 [facility] Comment on above: Performed By: #### 5 7021-8 ####STEFANO TROY ([id number])[facility] ([facility] [place], [place])[address] [place] [address] Glucose Test strip manual (B ld) [Mass/Vol]on 08-15-2024 Glucose [Mass/Vol] 136 mg/dL High 74 - 99 mg/dL [facility] Interpretation and review of laboratory results Abnormal [facility] Glucose [Mass/Vol] 136 mg/dL High 74-99 [facility] Comment on above: Performed By: #### 2 341-6 ####STEFANO TROY ([id number])[facility] ([facility] – [place], [place])[address] [place] [address] Glucose [Mass/Vol] 133 mg/dL High 74 - 99 mg/dL [facility] Interpretation and review of laboratory results Abnormal [facility] Glucose [Mass/Vol] 133 mg/dL High 74-99 [facility] Comment on above: Performed By: #### 2 341-6 ####STEFANO TROY ([id number])[facility] ([facility] – [place], [place])[address] [place] [address] Glucose [Mass/Vol] 111 mg/dL High 74 - 99 mg/dL [facility] Interpretation and review of laboratory results Abnormal [facility] Glucose [Mass/Vol] 111 mg/dL High 74-99 [facility] Comment on above: Performed By: #### 2 341-6 ####STEFANO TROY ([id number])[facility] ([facility] – [place], [place])[address] [place] [address] Glucose [Mass/Vol] 108 mg/dL High 74 - 99 mg/dL [facility] Interpretation and review of laboratory results Abnormal [facility] Glucose [Mass/Vol] 108 mg/dL High 74-99 [facility] Comment on above: Performed By: #### 2 341-6 ####STEFANO TROY ([id number])[facility] ([facility] – [place], [place])[address] [place] [address] Magnesiumon 08-15-2024 Magnesium [Mass/Vol] 2.37 mg/dL 1.60 - 2.40 mg/dL [facility] Magnesium [Mass/Vol] 2.37 mg/dL Normal 1.60-2.40 [facility] Comment on above: Performed By: #### 1 9123-9 ####STEFANO TROY ([id number])[facility] ([facility] – [place], [place])[address] [place] [address] Magnesium [Mass/Vol]on 08-15 Interpretation and review of laboratory results Normal [facility] No Panel Informationon 08-15 [facility] Renal function 2000 panelon 08-15-2024 Albumin BCP dye [Mass/Vol] 3.2 g/dL Low 3.4 - 5.0 g/dL [facility] Anion gap [Moles/Vol] 12 mmol/L 10 - 2 0 mmol/L [facility] Calcium [Mass/Vol] 7.8 mg/dL Low 8.6 - 10. 3 mg/dL [facility] Chloride [Moles/Vol] 101 mmol/L 98 - 10 7 mmol/L [facility] CO2 [Moles/Vol] 25 mmol/L 21 - 32 mmol/L [facility] Creatinine [Mass/Vol] 0.86 mg/dL 0.50 - 1.05 mg/dL [facility] GFR/1.73 sq M.predicted among non-blacks MDRD (S/P/Bld) [Vol rate/Area] 71 mL/min/{1.73_m2} - PINF [facility] Glucose [Mass/Vol] 108 mg/dL High 74 - 99 mg/dL [facility] Interpretation and review of laboratory results Abnormal [facility] Phosphate [Mass/Vol] 3.1 mg/dL 2.5 - 4 .9 mg/dL [facility] Potassium [Moles/Vol] 4.4 mmol/L 3.5 - 5.3 mmol/L [facility] Sodium [Moles/Vol] 134 mmol/L Low 136 - 145 mmol/L [facility] Urea nitrogen [Mass/Vol] 41 mg/dL High 6 - 23 mg/d L [facility] Albumin BCP dye [Mass/Vol] 3.2 g/dL Low 3.4-5.0 [facility] Comment on above: Performed By: #### 2 4362-6 ####STEFANO TROY ([id number])[facility] ([facility] – [place], [place])[address] [place], [place] [address] Anion gap [Moles/Vol] 12 mmol/L Normal 10-20 [facility] Comment on above: Performed By: #### 2 4362-6 ####STEFANO TROY ([id number])[facility] ([facility] – [place], [place])[address] [place] [address] Calcium [Mass/Vol] 7.8 mg/dL Low 8.6-10.3 [facility] Comment on above: Performed By: #### 2 4362-6 ####STEFANO TROY ([id number])[facility] ([facility] – [place], [place])[address] [place] [address] Chloride [Moles/Vol] 101 mmol/L Normal 98-107 [facility] Comment on above: Performed By: #### 2 4362-6 ####STEFANO TROY ([id number])[facility] ([facility] [place], [place])[address] [place] [address] CO2 [Moles/Vol] 25 mmol/L Normal 21-32 [facility] Comment on above: Performed By: #### 2 4362-6 ####STEFANO TROY ([id number])[facility] ([facility] [place], [place])[address] [place] [address] Creatinine [Mass/Vol] 0.86 mg/dL Normal 0.50-1.05 [facility] Comment on above: Performed By: #### 2 4362-6 ####STEFANO RTOY ([id number])[facility] ([facility] [place], [place])[address] [place] [address] Glomerular filtration rate/1.73 sq M.predicted 71 mL/min/1.73m*2 Normal >60 [facility] Comment on above: Result Comment: Calc ulations of estimated GFR are performed using the 2020 CKD-EPI Study Refit equation without the race variable for the IDMS-Traceable creatinine methods.https://jasn.asnjournals.org/content/early /ASN.4099740216 Performed By: #### 2 4362-6 ####STEFANO TROY ([id number])[facility] ([facility] – [place], [place])[address] [place] [address] Glucose [Mass/Vol] 108 mg/dL High 74-99 [facility] Comment on above: Performed By: #### 2 4362-6 ####STEFANO TROY ([id number])[facility] ([facility] [place], [place])[address] [place] [address] Phosphate [Mass/Vol] 3.1 mg/dL Normal 2.5-4.9 [facility] Comment on above: Result Comment: The performance characteristics of phosphorus testing in heparinized plasma have been validated by the individual laboratory site where testing is performed. Testing on heparinized plasma is not approved by the FDA; however, such approval is not necessary. Performed By: #### 2 4362-6 ####STEFANO TROY ([id number])[facility] ([facility] – [place], [place])[address] [place] [address] Potassium [Moles/Vol] 4.4 mmol/L Normal 3.5-5.3 [facility] Comment on above: Performed By: #### 2 4362-6 ####STEFANO TROY ([id number])[facility] ([facility] – [place], [place])[address] [place] [address] Sodium [Moles/Vol] 134 mmol/L Low 136-145 [facility] Comment on above: Performed By: #### 2 4362-6 ####STEFANO TROY ([id number])[facility] ([facility] [place], [place])[address] [place] [phone] Urea nitrogen [Mass/Vol] 41 mg/dL High 6-23 [facility] Comment on above: Performed By: #### 2 4362-6 ####STEFANO TROY ([id number])[facility] ([facility] [place], [place])[address] [place] [address] Respiratory Culture/SmearOrd ered By: Joann Dennis on 08-15-2024 Bacteria identified Respiratory culture Nom (Unsp spec) Culture not performed. See Gram stain findings. Recollect if clinically indicated. Abnormal [facility] Bacteria identifiedon 2023 Bacteria identified Respiratory culture Nom (Unsp spec) Abnormal [facility] Comment on above: Performed By: #### 3 2355-0 ####ZABRINA Villalba ([id number])[facility] ([facility])[address] [place] [address] CBC W Auto Differential pane l (Bld)on 08-14-2024 Basophils (Bld) [#/Vol] 0.01 10*3/uL [facility] Basophils/100 WBC (Bld) 0.1 % 0.0 - 2.0 % [facility] Eosinophils (Bld) [#/Vol] 0.11 10*3/uL [facility] Eosinophils/100 WBC (Bld) 0.9 % 0.0 - 6.0 % [facility] Erythrocyte distribution width (RBC) [Ratio] 15 % High 11.5 - 14.5 % [facility] Hematocrit (Bld) [Volume fraction] 24.9 % Low 36.0 - 46.0 % [facility] Hemoglobin (Bld) [Mass/Vol] 9 g/dL Low 12.0 - 16.0 g/dL [facility] Immature granulocytes (Bld) [#/Vol] 0.07 10*3/uL [facility] Immature granulocytes/100 WBC (Bld) 0.6 % 0.0 - 0.9 % [facility] Interpretation and review of laboratory results Abnormal [facility] Lymphocytes (Bld) [#/Vol] 1.85 10*3/uL [facility] Lymphocytes/100 WBC (Bld) 15.5 % 13.0 - 44.0 % [facility] MCH (RBC) [Entitic mass] 30.1 pg 26. 0 - 34.0 pg [facility] MCHC (RBC) [Mass/Vol] 36.1 g/dL High 32.0 - 36.0 g/dL [facility] MCV (RBC) [Entitic vol] 83 fL 80 - 100 fL [facility] Monocytes (Bld) [#/Vol] 1.13 10*3/uL [facility] Monocytes/100 WBC (Bld) 9.5 % 2.0 - 10.0 % [facility] Neutrophils (Bld) [#/Vol] 8.77 10*3/uL High [facility] Neutrophils/100 WBC (Bld) 73.4 % 40.0 - 80.0 % [facility] Nucleated RBC/100 WBC (Bld) [Ratio] 0.3 % [facility] Platelets (Bld) [#/Vol] 224 10*3/uL [facility] RBC (Bld) [#/Vol] 2.99 10*6/uL Low [facility] WBC (Bld) [#/Vol] 11.9 10*3/uL High [facility] Basophils (Bld) [#/Vol] 0.01 x10*3/uL Normal 0.00-0.10 [facility] Comment on above: Performed By: #### 5 7021-8 ####STEFANO TROY ([id number])[facility] ([facility] – [place], [place])[address] [place] [address] Basophils/100 WBC (Bld) 0.1 % Normal 0.0-2.0 [facility] Comment on above: Performed By: #### 5 7021-8 ####STEFANO TROY ([id number])[facility] ([facility] [place], [place])[address] [place] [address] Eosinophils (Bld) [#/Vol] 0.11 x10*3/uL Normal 0.00-0.40 [facility] Comment on above: Performed By: #### 5 7021-8 ####STEFANO TROY ([id number])[facility] ([facility] [place])[address] [place] [address] Eosinophils/100 WBC (Bld) 0.9 % Normal 0.0-6.0 [facility] Comment on above: Performed By: #### 5 7021-8 ####STEFANO TRYO ([id number])[facility] ([facility] – [place])[address] [place] [address] Erythrocyte distribution width (RBC) [Ratio] 15.0 % High 11.5-14.5 [facility] Comment on above: Performed By: #### 5 7021-8 ####STEFANO TROY ([id number])[facility] ([facility] [place], [place])[address] [place] [address] Hematocrit (Bld) [Volume fraction] 24.9 % Low 36.0-46.0 [facility] Comment on above: Performed By: #### 5 7021-8 ####STEFANO TROY ([id number])[facility] ([facility] [place], [place])[address] [place] [address] Hemoglobin (Bld) [Mass/Vol] 9.0 g/dL Low 12.0-16.0 [facility] Comment on above: Performed By: #### 5 7021-8 ####STEFANO TROY ([id number])[facility] ([facility] [place], [place])[address] [place], [place] [id number] Immature granulocytes (Bld) [#/Vol] 0.07 x10*3/uL Normal 0.00-0.50 [facility] Comment on above: Performed By: #### 5 7021-8 ####STEFANO TROY ([id number])[facility] ([facility] [place], [place])[address] [place] [address] Immature granulocytes/100 WBC (Bld) 0.6 % Normal 0.0-0.9 [facility] Comment on above: Result Comment: Laurie ture Granulocyte Count (IG) includes promyelocytes, myelocytes and metamyelocytes but does not include bands. Percent differential counts (%) should be interpreted in the context of the absolute cell counts (cells/UL). Performed By: #### 5 7021-8 ####STEFANO TROY ([id number])[facility] ([facility] – [place], [place])[address] [place] [address] Lymphocytes (Bld) [#/Vol] 1.85 x10*3/uL Normal 0.80-3.00 [facility] Comment on above: Performed By: #### 5 7021-8 ####STEFANO TROY ([id number])[facility] ([facility] [place], [place])[address] [place] [address] Lymphocytes/100 WBC (Bld) 15.5 % Normal 13.0-44.0 [facility] Comment on above: Performed By: #### 5 7021-8 ####STEFANO TROY ([id number])[facility] ([facility] [place], [place])[address] [place] [phone] MCH (RBC) [Entitic mass] 30.1 pg Normal 26.0-34.0 [facility] Comment on above: Performed By: #### 5 7021-8 ####STEFANO TROY ([id number])[facility] ([facility] [place], [place])[address] [place] [phone] MCHC (RBC) [Mass/Vol] 36.1 g/dL High 32.0-36.0 [facility] Comment on above: Performed By: #### 5 7021-8 ####STEFANO TROY ([id number])[facility] ([facility] [place] [place])[address] [place] [phone] MCV (RBC) [Entitic vol] 83 fL Normal 80-100 [facility] Comment on above: Performed By: #### 5 7021-8 ####STEFANO TROY ([id number])[facility] ([facility] [place] [place])[address] [place] [address] Monocytes (Bld) [#/Vol] 1.13 x10*3/uL High 0.05-0.80 [facility] Comment on above: Performed By: #### 5 7021-8 ####STEFANO TROY ([id number])[facility] ([facility] [place] [place])[address] [place] [address] Monocytes/100 WBC (Bld) 9.5 % Normal 2.0-10.0 [facility] Comment on above: Performed By: #### 5 7021-8 ####STEFANO TROY ([id number])[facility] ([facility] [place] [place])[address] [place] [address] Neutrophils (Bld) [#/Vol] 8.77 x10*3/uL High 1.60-5.50 [facility] Comment on above: Result Comment: Perc ent differential counts (%) should be interpreted in the context of the absolute cell counts (cells/uL). Performed By: #### 5 7021-8 ####STEFANO TROY ([id number])[facility] ([facility] [place] [place])[address] [place] [address] Neutrophils/100 WBC (Bld) 73.4 % Normal 40.0-80.0 [facility] Comment on above: Performed By: #### 5 7021-8 ####STEFANO TROY ([id number])[facility] ([facility] [place] [place])[address] [place] [address] Nucleated RBC/100 WBC (Bld) [Ratio] 0.3 /100 WBCs High 0.0-0.0 [facility] Comment on above: Performed By: #### 5 7021-8 ####STEFANO TROY ([id number])[facility] ([facility] [place] [place])[address] [place] [address] Platelets (Bld) [#/Vol] 224 x10*3/uL Normal 150-450 [facility] Comment on above: Performed By: #### 5 7021-8 ####STEFANO TROY ([id number])[facility] ([facility] [place] [place])[address] [place] [address] RBC (Bld) [#/Vol] 2.99 x10*6/uL Low 4.00-5.20 [facility] Comment on above: Performed By: #### 5 7021-8 ####STEFANO TROY ([id number])[facility] ([facility] [place] [place])[address] [place] [address] WBC (Bld) [#/Vol] 11.9 x10*3/uL High 4.4-11.3 [facility] Comment on above: Performed By: #### 5 7021-8 ####STEFANO TROY ([id number])[facility] ([facility] [place] [place])[address] [place] [address] ECG 12-LEADon 08-14-2024 ECG 12-LEAD Ventricular Rate 92 Atrial Rate 92 P-R Interval 168 QRS Duration 134 Q-T Interval 430 QTC Calculation(Bazett) 531 P [place] 40 R [place] 136 T [place] 47 QRS Count 15 Q Onset 214 P Onset 130 P Offset 179 T Offset 429 QTC Fredericia 495 Diagnosis Normal sinus rhythm Right axis deviation Nonspecific intraventricular block Cannot rule out Anteroseptal infarct , age undetermined ST elevation in Inferior leads ACUTE MO Abnormal ECG When compared with ECG of 13-AUG-2024 08:21, (unconfirmed) Sinus rhythm has replaced Junctional rhythm QRS axis Shifted right Nonspecific T wave abnormality now evident in Anterior leads Confirmed by Kevin Kenyon ([id number]) on 08/19/2024 7:28:14 PM Normal [facility] Gas and Carbon monoxide and Electrolytes panel (BldA)on 08-14-2024 Anion gap 4 (BldA) [Moles/Vol] 11 [facility] Base excess Calc (Bld) [Moles/Vol] -0.8000 mmol/L -2.0 - 3.0 mmol/L [facility] Calcium.ionized (BldA) [Moles/Vol] 1.14 mmol/L 1.10 - 1.33 mmol/L [facility] Chloride (BldA) [Moles/Vol] 102 mmol/L 98 - 107 mmol/L [facility] CO2 (Bld) [Partial pressure] 28 mm[Hg] Low [facility] Flow 40 LPM [facility] Glucose [Mass/Vol] 121 mg/dL High 74 - 99 mg/dL [facility] HCO3 (Bld) [Moles/Vol] 21.8 mmol/L Low 22.0 - 26.0 mmol/L [facility] Hematocrit Est (Bld) [Volume fraction] 27 % Low 36.0 - 46.0 % [facility] Hemoglobin (Bld) [Mass/Vol] 8.9 g/dL Low 12.0 - 16.0 g/dL [facility] Inhaled oxygen concentration 40 % [facility] Interpretation and review of laboratory results Abnormal [facility] Lactate (BldA) [Moles/Vol] 1.4 mmol/L 0.4 - 2.0 mmol/L [facility] Oxygen (Bld) [Partial pressure] 95 mm[Hg] [facility] Oxyhemoglobin (BldA) [Mass fraction] 97.1 % 94.0 - 98.0 % [facility] pH (Bld) 7.5 [pH] High 7.38 - 7.42 pH [facility] Potassium (BldA) [Moles/Vol] 3.9 mmol/L 3.5 - 5.3 mmol/L [facility] Sodium (BldA) [Moles/Vol] 131 mmol/L Low 136 - 145 mmol/L [facility] Anion gap 4 (BldA) [Moles/Vol] 11 mmo/L Normal 10-25 [facility] Comment on above: Performed By: #### 9 3685-6 ####STEFANO TROY ([id number])[facility] ([facility] [place], [place])[address] [place] [address] Base excess Calc (Bld) [Moles/Vol] -0.8000 mmol/L Normal -2.0-3.0 [facility] Comment on above: Performed By: #### 9 3685-6 ####STEFANO TROY ([id number])[facility] ([facility] [place] [place])[address] [place] [address] Calcium.ionized (BldA) [Moles/Vol] 1.14 mmol/L Normal 1.10-1.33 [facility] Comment on above: Performed By: #### 9 3685-6 ####STEFANO TROY ([id number])[facility] ([facility] [place] [place])[address] [place] [address] Chloride (BldA) [Moles/Vol] 102 mmol/L Normal 98-107 [facility] Comment on above: Performed By: #### 9 3685-6 ####STEFANO TROY ([id number])[facility] ([facility] [place], [place])[address] [place], [place] [address] CO2 (Bld) [Partial pressure] 28 mm Hg Low 38-42 [facility] Comment on above: Performed By: #### 9 3685-6 ####STEFANO TROY ([id number])[facility] ([facility] [place] [place])[address] [place] [address] FLOW 40.0 LPM Normal [facility] Comment on above: Performed By: #### 9 3685-6 ####STEFANO TROY ([id number])[facility] ([facility] [place], [place])[address] [place], [place] [address] Glucose [Mass/Vol] 121 mg/dL High 74-99 [facility] Comment on above: Performed By: #### 9 3685-6 ####STEFANO TROY ([id number])[facility] ([facility] [place], [place])[address] [place], [place] [address] HCO3 (Bld) [Moles/Vol] 21.8 mmol/L Low 22.0-26.0 [facility] Comment on above: Performed By: #### 9 3685-6 ####STEFANO TROY ([id number])[facility] ([facility] [place] [place])[address] [place] [phone] Hematocrit Est (Bld) [Volume fraction] 27.0 % Low 36.0-46.0 [facility] Comment on above: Performed By: #### 9 3685-6 ####STEFANO TROY ([id number])[facility] ([facility] [place] [place])[address] [place] [address] Hemoglobin (Bld) [Mass/Vol] 8.9 g/dL Low 12.0-16.0 [facility] Comment on above: Performed By: #### 9 3685-6 ####STEFANO TROY ([id number])[facility] ([facility] [place] [place])[address] [place] [phone] Inhaled oxygen concentration 40 % Normal [facility] Comment on above: Performed By: #### 9 3685-6 ####STEFANO TROY ([id number])[facility] ([facility] [place] [place])[address] [place] [phone] Lactate (BldA) [Moles/Vol] 1.4 mmol/L Normal 0.4-2.0 [facility] Comment on above: Performed By: #### 9 3685-6 ####STEFANO TROY ([id number])[facility] ([facility] [place] [place])[address] [place] [phone] Oxygen (Bld) [Partial pressure] 95 mm Hg Normal 85-95 [facility] Comment on above: Performed By: #### 9 3685-6 ####STEFANO TROY ([id number])[facility] ([facility] [place] [place])[address] [place] [address] Oxyhemoglobin (BldA) [Mass fraction] 97.1 % Normal 94.0-98.0 [facility] Comment on above: Performed By: #### 9 3685-6 ####STEFANO TROY ([id number])[facility] ([facility] [place] [place])[address] [place] [address] pH (Bld) 7.50 [pH] High 7.38-7.42 [facility] Comment on above: Performed By: #### 9 3685-6 ####STEFANO TROY ([id number])[facility] ([facility] [place] [place])[address] [place] [address] Potassium (BldA) [Moles/Vol] 3.9 mmol/L Normal 3.5-5.3 [facility] Comment on above: Performed By: #### 9 3685-6 ####STEFANO TROY ([id number])[facility] ([facility] [place] [place])[address] [place] [phone] Sodium (BldA) [Moles/Vol] 131 mmol/L Low 136-145 [facility] Comment on above: Performed By: #### 9 3685-6 ####STEFANO TROY ([id number])[facility] ([facility] [place], [place])[address] [place], [place] [address] Anion gap 4 (BldA) [Moles/Vol] 11 [facility] Base excess Calc (Bld) [Moles/Vol] -0.1000 mmol/L -2.0 - 3.0 mmol/L [facility] Calcium.ionized (BldA) [Moles/Vol] 1.14 mmol/L 1.10 - 1.33 mmol/L [facility] Chloride (BldA) [Moles/Vol] 100 mmol/L 98 - 107 mmol/L [facility] CO2 (Bld) [Partial pressure] 29 mm[Hg] Low [facility] Flow 60 LPM [facility] Glucose [Mass/Vol] 153 mg/dL High 74 - 99 mg/dL [facility] HCO3 (Bld) [Moles/Vol] 22.6 mmol/L 22.0 - 26.0 mmol/L [facility] Hematocrit Est (Bld) [Volume fraction] 28 % Low 36.0 - 46.0 % [facility] Hemoglobin (Bld) [Mass/Vol] 9.2 g/dL Low 12.0 - 16.0 g/dL [facility] Inhaled oxygen concentration 50 % [facility] Interpretation and review of laboratory results Abnormal [facility] Lactate (BldA) [Moles/Vol] 1.4 mmol/L 0.4 - 2.0 mmol/L [facility] Oxygen (Bld) [Partial pressure] 81 mm[Hg] Low [facility] Oxyhemoglobin (BldA) [Mass fraction] 95.9 % 94.0 - 98.0 % [facility] pH (Bld) 7.5 [pH] High 7.38 - 7.42 pH [facility] Potassium (BldA) [Moles/Vol] 3.6 mmol/L 3.5 - 5.3 mmol/L [facility] Sodium (BldA) [Moles/Vol] 130 mmol/L Low 136 - 145 mmol/L [facility] Anion gap 4 (BldA) [Moles/Vol] 11 mmo/L Normal 10-25 [facility] Comment on above: Performed By: #### 9 3685-6 ####STEFANO TROY ([id number])[facility] ([facility] [place], [place])[address] [place] [address] Base excess Calc (Bld) [Moles/Vol] -0.1000 mmol/L Normal -2.0-3.0 [facility] Comment on above: Performed By: #### 9 3685-6 ####STEFANO TROY ([id number])[facility] ([facility] [place], [place])[address] [place] [address] Calcium.ionized (BldA) [Moles/Vol] 1.14 mmol/L Normal 1.10-1.33 [facility] Comment on above: Performed By: #### 9 3685-6 ####STEFANO TROY ([id number])[facility] ([facility] [place], [place])[address] [place], [place] [address] Chloride (BldA) [Moles/Vol] 100 mmol/L Normal 98-107 [facility] Comment on above: Performed By: #### 9 3685-6 ####STEFANO TROY ([id number])[facility] ([facility] [place], [place])[address] [place], [place] [address] CO2 (Bld) [Partial pressure] 29 mm Hg Low 38-42 [facility] Comment on above: Performed By: #### 9 3685-6 ####STEFANO TROY ([id number])[facility] ([facility] [place], [place])[address] [place] [address] FLOW 60.0 LPM Normal [facility] Comment on above: Performed By: #### 9 3685-6 ####STEFANO TROY ([id number])[facility] ([facility] [place] [place])[address] [place] [address] Glucose [Mass/Vol] 153 mg/dL High 74-99 [facility] Comment on above: Performed By: #### 9 3685-6 ####STEFANO TROY ([id number])[facility] ([facility] [place] [place])[address] [place] [address] HCO3 (Bld) [Moles/Vol] 22.6 mmol/L Normal 22.0-26.0 [facility] Comment on above: Performed By: #### 9 3685-6 ####STEFANO TROY ([id number])[facility] ([facility] [place] [place])[address] [place] [address] Hematocrit Est (Bld) [Volume fraction] 28.0 % Low 36.0-46.0 [facility] Comment on above: Performed By: #### 9 3685-6 ####STEFANO TROY ([id number])[facility] ([facility] [place] [place])[address] [place] [address] Hemoglobin (Bld) [Mass/Vol] 9.2 g/dL Low 12.0-16.0 [facility] Comment on above: Performed By: #### 9 3685-6 ####STEFANO TROY ([id number])[facility] ([facility] [place] [place])[address] [place] [address] Inhaled oxygen concentration 50 % Normal [facility] Comment on above: Performed By: #### 9 3685-6 ####STEFANO TROY ([id number])[facility] ([facility] [place] [place])[address] [place] [address] Lactate (BldA) [Moles/Vol] 1.4 mmol/L Normal 0.4-2.0 [facility] Comment on above: Performed By: #### 9 3685-6 ####STEFANO TROY ([id number])[facility] ([facility] [place] [place])[address] [place] [address] Oxygen (Bld) [Partial pressure] 81 mm Hg Low 85-95 [facility] Comment on above: Performed By: #### 9 3685-6 ####STEFANO TROY ([id number])[facility] ([facility] [place], [place])[address] [place] [phone] Oxyhemoglobin (BldA) [Mass fraction] 95.9 % Normal 94.0-98.0 [facility] Comment on above: Performed By: #### 9 3685-6 ####STEFANO TROY ([id number])[facility] ([facility] [place], [place])[address] [place] [address] pH (Bld) 7.50 [pH] High 7.38-7.42 [facility] Comment on above: Performed By: #### 9 3685-6 ####STEFANO TROY ([id number])[facility] ([facility] [place] [place])[address] [place] [phone] Potassium (BldA) [Moles/Vol] 3.6 mmol/L Normal 3.5-5.3 [facility] Comment on above: Performed By: #### 9 3685-6 ####STEFANO TROY ([id number])[facility] ([facility] [place], [place])[address] [place], [place] [address] Sodium (BldA) [Moles/Vol] 130 mmol/L Low 136-145 [facility] Comment on above: Performed By: #### 9 3685-6 ####STEFANO TROY ([id number])[facility] ([facility] [place], [place])[address] [place], [place] [address] Glucose Test strip manual (B ld) [Mass/Vol]on 08-14-2024 Glucose [Mass/Vol] 149 mg/dL High 74 - 99 mg/dL [facility] Interpretation and review of laboratory results Abnormal [facility] Glucose [Mass/Vol] 149 mg/dL High 74-99 [facility] Comment on above: Performed By: #### 2 341-6 ####STEFANO TROY ([id number])[facility] ([facility] [place] [place])[address] [place] [address] Glucose [Mass/Vol] 111 mg/dL High 74 - 99 mg/dL [facility] Interpretation and review of laboratory results Abnormal [facility] Glucose [Mass/Vol] 111 mg/dL High 74-99 [facility] Comment on above: Performed By: #### 2 341-6 ####STEFANO TROY ([id number])[facility] ([facility] [place], [place])[address] [place] [address] Glucose [Mass/Vol] 163 mg/dL High 74 - 99 mg/dL [facility] Interpretation and review of laboratory results Abnormal [facility] Glucose [Mass/Vol] 163 mg/dL High 74-99 [facility] Comment on above: Performed By: #### 2 341-6 ####STEFANO TROY ([id number])[facility] ([facility] [place] [place])[address] [place] [address] Glucose [Mass/Vol] 142 mg/dL High 74 - 99 mg/dL [facility] Interpretation and review of laboratory results Abnormal [facility] Glucose [Mass/Vol] 142 mg/dL High 74-99 [facility] Comment on above: Performed By: #### 2 341-6 ####STEFANO TROY ([id number])[facility] ([facility] [place] [place])[address] [place], [place] [address] Magnesiumon 08-14-2024 Magnesium [Mass/Vol] 2.22 mg/dL 1.60 - 2.40 mg/dL [facility] Magnesium [Mass/Vol] 2.22 mg/dL Normal 1.60-2.40 [facility] Comment on above: Performed By: #### 1 9123-9 ####STEFANO TROY ([id number])[facility] ([facility] [place], [place])[address] [place] [address] Magnesium [Mass/Vol]on 08-14 Interpretation and review of laboratory results Normal [facility] Renal function 2000 panelon 08-14-2024 Albumin BCP dye [Mass/Vol] 3.1 g/dL Low 3.4 - 5.0 g/dL [facility] Anion gap [Moles/Vol] 12 mmol/L 10 - 2 0 mmol/L [facility] Calcium [Mass/Vol] 7.6 mg/dL Low 8.6 - 10. 3 mg/dL [facility] Chloride [Moles/Vol] 100 mmol/L 98 - 10 7 mmol/L [facility] CO2 [Moles/Vol] 22 mmol/L 21 - 32 mmol/L [facility] Creatinine [Mass/Vol] 0.79 mg/dL 0.50 - 1.05 mg/dL [facility] GFR/1.73 sq M.predicted among non-blacks MDRD (S/P/Bld) [Vol rate/Area] 79 mL/min/{1.73_m2} - PINF [facility] Glucose [Mass/Vol] 138 mg/dL High 74 - 99 mg/dL [facility] Interpretation and review of laboratory results Abnormal [facility] Phosphate [Mass/Vol] 2.9 mg/dL 2.5 - 4 .9 mg/dL [facility] Potassium [Moles/Vol] 3.6 mmol/L 3.5 - 5.3 mmol/L [facility] Sodium [Moles/Vol] 130 mmol/L Low 136 - 145 mmol/L [facility] Urea nitrogen [Mass/Vol] 39 mg/dL High 6 - 23 mg/d L [facility] Albumin BCP dye [Mass/Vol] 3.1 g/dL Low 3.4-5.0 [facility] Comment on above: Performed By: #### 2 4362-6 ####STEFANO TROY ([id number])[facility] ([facility] [place], [place])[address] [place] [address] Anion gap [Moles/Vol] 12 mmol/L Normal 10-20 [facility] Comment on above: Performed By: #### 2 4362-6 ####STEFANO TROY ([id number])[facility] ([facility] [place] [place])[address] [place] [address] Calcium [Mass/Vol] 7.6 mg/dL Low 8.6-10.3 [facility] Comment on above: Performed By: #### 2 4362-6 ####STEFANO TROY ([id number])[facility] ([facility] [place] [place])[address] [place] [address] Chloride [Moles/Vol] 100 mmol/L Normal 98-107 [facility] Comment on above: Performed By: #### 2 4362-6 ####STEFANO TROY ([id number])[facility] ([facility] [place] [place])[address] [place] [address] CO2 [Moles/Vol] 22 mmol/L Normal 21-32 [facility] Comment on above: Performed By: #### 2 4362-6 ####STEFANO TROY ([id number])[facility] ([facility] [place] [place])[address] [place] [address] Creatinine [Mass/Vol] 0.79 mg/dL Normal 0.50-1.05 [facility] Comment on above: Performed By: #### 2 4362-6 ####STEFANO TROY ([id number])[facility] ([facility] [place] [place])[address] [place] [address] Glomerular filtration rate/1.73 sq M.predicted 79 mL/min/1.73m*2 Normal >60 [facility] Comment on above: Result Comment: Calc ulations of estimated GFR are performed using the 2020 CKD-EPI Study Refit equation without the race variable for the IDMS-Traceable creatinine methods.https://jasn.asnjournals.org/content/ /ASN.6233650660 Performed By: #### 2 4362-6 ####STEFANO TROY ([id number])[facility] ([facility] [place] [place])[address] [place] [address] Glucose [Mass/Vol] 138 mg/dL High 74-99 [facility] Comment on above: Performed By: #### 2 4362-6 ####STEFANO TROY ([id number])[facility] ([facility] [place] [place])[address] [place] [address] Phosphate [Mass/Vol] 2.9 mg/dL Normal 2.5-4.9 [facility] Comment on above: Result Comment: The performance characteristics of phosphorus testing in heparinized plasma have been validated by the individual laboratory site where testing is performed. Testing on heparinized plasma is not approved by the FDA; however, such approval is not necessary. Performed By: #### 2 4362-6 ####STEFANO TROY ([id number])[facility] ([facility] [place] [place])[address] [place] [id number] Potassium [Moles/Vol] 3.6 mmol/L Normal 3.5-5.3 [facility] Comment on above: Performed By: #### 2 4362-6 ####STEFANO TROY ([id number])[facility] ([facility] [place] [place])[address] [place], [place] [address] Sodium [Moles/Vol] 130 mmol/L Low 136-145 [facility] Comment on above: Performed By: #### 2 4362-6 ####STEFANO TROY ([id number])[facility] ([facility] [place] [place])[address] [place] [address] Urea nitrogen [Mass/Vol] 39 mg/dL High 6-23 [facility] Comment on above: Performed By: #### 2 4362-6 ####STEFANO TROY ([id number])[facility] ([facility] [place], [place])[address] [place] [address] XR CHEST 1 VIEWon 08-14-2024 XR CHEST 1 VIEW Normal [facility] XR Chest Single viewon 08-14 [facility] Work Phone: [facility] Work Phone: Radiology Study observation (narrative) [facility] Work Phone: CBC W Auto Differential pane l (Bld)on 08-13-2024 Basophils (Bld) [#/Vol] 0.02 10*3/uL [facility] Basophils/100 WBC (Bld) 0.1 % 0.0 - 2.0 % [facility] Eosinophils (Bld) [#/Vol] 0.03 10*3/uL [facility] Eosinophils/100 WBC (Bld) 0.2 % 0.0 - 6.0 % [facility] Erythrocyte distribution width (RBC) [Ratio] 15.9 % High 11.5 - 14.5 % [facility] [facility] Hematocrit (Bld) [Volume fraction] 28 % Low 36.0 - 46.0 % [facility] Hemoglobin (Bld) [Mass/Vol] 9.9 g/dL Low 12.0 - 16.0 g/dL [facility] Immature granulocytes (Bld) [#/Vol] 0.16 10*3/uL [facility] Immature granulocytes/100 WBC (Bld) 0.9 % 0.0 - 0.9 % [facility] Interpretation and review of laboratory results Abnormal [facility] Lymphocytes (Bld) [#/Vol] 2.19 10*3/uL [facility] Lymphocytes/100 WBC (Bld) 12.8 % 13.0 - 44.0 % [facility] MCH (RBC) [Entitic mass] 30.7 pg 26. 0 - 34.0 pg [facility] MCHC (RBC) [Mass/Vol] 35.4 g/dL 32.0 - 36.0 g/dL [facility] MCV (RBC) [Entitic vol] 87 fL 80 - 100 fL [facility] Monocytes (Bld) [#/Vol] 1.68 10*3/uL High [facility] Monocytes/100 WBC (Bld) 9.8 % 2.0 - 10.0 % [facility] Neutrophils (Bld) [#/Vol] 12.98 10*3/uL High [facility] Neutrophils/100 WBC (Bld) 76.2 % 40.0 - 80.0 % [facility] Nucleated RBC/100 WBC (Bld) [Ratio] 0 % [facility] Platelets (Bld) [#/Vol] 247 10*3/uL [facility] RBC (Bld) [#/Vol] 3.23 10*6/uL Low [facility] WBC (Bld) [#/Vol] 17.1 10*3/uL High [facility] Basophils (Bld) [#/Vol] 0.02 x10*3/uL Normal 0.00-0.10 [facility] Comment on above: Performed By: #### 5 7021-8 ####STEFANO TROY ([id number])[facility] ([facility] [place], [place])[address] [place] [address] Basophils/100 WBC (Bld) 0.1 % Normal 0.0-2.0 [facility] Comment on above: Performed By: #### 5 7021-8 ####STEFANO TROY ([id number])[facility] ([facility] [place] [place])[address] [place] [address] Eosinophils (Bld) [#/Vol] 0.03 x10*3/uL Normal 0.00-0.40 [facility] Comment on above: Performed By: #### 5 7021-8 ####STEFANO TROY ([id number])[facility] ([facility] [place] [place])[address] [place] [address] Eosinophils/100 WBC (Bld) 0.2 % Normal 0.0-6.0 [facility] Comment on above: Performed By: #### 5 7021-8 ####STEFANO TROY ([id number])[facility] ([facility] [place] [place])[address] [place] [address] Erythrocyte distribution width (RBC) [Ratio] 15.9 % High 11.5-14.5 [facility] Comment on above: Performed By: #### 5 7021-8 ####STEFANO TROY ([id number])[facility] ([facility] [place] [place])[address] [place] [address] Hematocrit (Bld) [Volume fraction] 28.0 % Low 36.0-46.0 [facility] Comment on above: Performed By: #### 5 7021-8 ####STEFANO TROY ([id number])[facility] ([facility] [place] [place])[address] [place] [id number] Hemoglobin (Bld) [Mass/Vol] 9.9 g/dL Low 12.0-16.0 [facility] Comment on above: Performed By: #### 5 7021-8 ####STEFANO TROY ([id number])[facility] ([facility] [place] [place])[address] [place] [address] Immature granulocytes (Bld) [#/Vol] 0.16 x10*3/uL Normal 0.00-0.50 [facility] Comment on above: Performed By: #### 5 7021-8 ####STEFANO TROY ([id number])[facility] ([facility] [place] [place])[address] [place] [address] Immature granulocytes/100 WBC (Bld) 0.9 % Normal 0.0-0.9 [facility] Comment on above: Result Comment: Laurie ture Granulocyte Count (IG) includes promyelocytes, myelocytes and metamyelocytes but does not include bands. Percent differential counts (%) should be interpreted in the context of the absolute cell counts (cells/UL). Performed By: #### 5 7021-8 ####STEFANO TROY ([id number])[facility] ([facility] [place] [place])[address] [place] [address] Lymphocytes (Bld) [#/Vol] 2.19 x10*3/uL Normal 0.80-3.00 [facility] Comment on above: Performed By: #### 5 7021-8 ####STEFANO TROY ([id number])[facility] ([facility] [place] [place])[address] [place] [id number] Lymphocytes/100 WBC (Bld) 12.8 % Normal 13.0-44.0 [facility] Comment on above: Performed By: #### 5 7021-8 ####STEFANO TROY ([id number])[facility] ([facility] [place] [place])[address] [place] [phone] MCH (RBC) [Entitic mass] 30.7 pg Normal 26.0-34.0 [facility] Comment on above: Performed By: #### 5 7021-8 ####STEFANO TROY ([id number])[facility] ([facility] [place], [place])[address] [place], [place] [id number] MCHC (RBC) [Mass/Vol] 35.4 g/dL Normal 32.0-36.0 [facility] Comment on above: Performed By: #### 5 7021-8 ####STEFANO TROY ([id number])[facility] ([facility] [place] [place])[address] [place] [address] MCV (RBC) [Entitic vol] 87 fL Normal 80-100 [facility] Comment on above: Performed By: #### 5 7021-8 ####STEFANO TROY ([id number])[facility] ([facility] [place] [place])[address] [place] [address] Monocytes (Bld) [#/Vol] 1.68 x10*3/uL High 0.05-0.80 [facility] Comment on above: Performed By: #### 5 7021-8 ####STEFANO TROY ([id number])[facility] ([facility] [place] [place])[address] [place] [id number] Monocytes/100 WBC (Bld) 9.8 % Normal 2.0-10.0 [facility] Comment on above: Performed By: #### 5 7021-8 ####STEFANO TROY ([id number])[facility] ([facility] [place] [place])[address] [place] [phone] Neutrophils (Bld) [#/Vol] 12.98 x10*3/uL High 1.60-5.50 [facility] Comment on above: Result Comment: Perc ent differential counts (%) should be interpreted in the context of the absolute cell counts (cells/uL). Performed By: #### 5 7021-8 ####STEFANO TROY ([id number])[facility] ([facility] [place] [place])[address] [place] [address] Neutrophils/100 WBC (Bld) 76.2 % Normal 40.0-80.0 [facility] Comment on above: Performed By: #### 5 7021-8 ####STEFANO TROY ([id number])[facility] ([facility] [place] [place])[address] [place] [phone] Nucleated RBC/100 WBC (Bld) [Ratio] 0.0 /100 WBCs Normal 0.0-0.0 [facility] Comment on above: Performed By: #### 5 7021-8 ####STEFANO TROY ([id number])[facility] ([facility] [place] [place])[address] [place] [address] Platelets (Bld) [#/Vol] 247 x10*3/uL Normal 150-450 [facility] Comment on above: Performed By: #### 5 7021-8 ####STEFANO TROY ([id number])[facility] ([facility] [place] [place])[address] [place] [address] RBC (Bld) [#/Vol] 3.23 x10*6/uL Low 4.00-5.20 [facility] Comment on above: Performed By: #### 5 7021-8 ####STEFANO TROY ([id number])[facility] ([facility] [place] [place])[address] [place] [address] WBC (Bld) [#/Vol] 17.1 x10*3/uL High 4.4-11.3 [facility] Comment on above: Performed By: #### 5 7021-8 ####STEFANO TROY ([id number])[facility] ([facility] [place] [place])[address] [place] [address] ECG 12-LEADon 08-13-2024 ECG 12-LEAD Ventricular Rate 104 Atrial Rate 104 P-R Interval 130 QRS Duration 146 Q-T Interval 410 QTC Calculation(Bazett) 539 P [place] 270 R [place] 96 T [place] -2 QRS Count 17 Q Onset 211 P Onset 146 P Offset 206 T Offset 416 QTC Fredericia 492 Diagnosis Unusual P axis and short HI, probable junctional tachycardia Rightward axis Nonspecific intraventricular block Abnormal ECG When compared with ECG of 13-AUG-2024 06:22, (unconfirmed) Junctional rhythm has replaced Sinus rhythm QRS axis Shifted left Criteria for Lateral infarct are no longer Present Criteria for Inferior infarct are no longer Present QT has lengthened Confirmed by Cassius Mei ([id number]) on 08/17/2024 11:26:11 AM Normal [facility] ECG 12-LEAD Ventricular Rate 99 Atrial Rate 99 P-R Interval 128 QRS Duration 138 Q-T Interval 296 QTC Calculation(Bazett) 379 R [place] 145 T [place] 44 QRS Count 16 Q Onset 218 P Onset 96 P Offset 132 T Offset 366 QTC Fredericia 349 Diagnosis Suspect arm lead reversal, interpretation assumes no reversal Normal sinus rhythm Nonspecific intraventricular block Possible Right ventricular hypertrophy Cannot rule out Septal infarct (cited on or before 12-AUG-2024) Lateral infarct (cited on or before 12-AUG-2024) Inferior infarct , age undetermined ACUTE MO Abnormal ECG When compared with ECG of 12-AUG-2024 17:34, (unconfirmed) HI interval has decreased Serial changes of Septal infarct Present Confirmed by Cassius Mei ([id number]) on 08/17/2024 11:25:29 AM Normal [facility] Electrocardiogram 12-lead HI N ACS symptomsOrdered By: Alexy Montana on 08-13-2024 Atrial Rate 99 BPM [facility] Work Phone: HI Interval 288 ms [facility] Work Phone: Q Onset 217 ms [facility] Work Phone: QRS Count 16 beats [facility] Work Phone: QRS Duration 132 ms [facility] Work Phone: QT Interval 318 ms [facility] Work Phone: QTC Calculation(Bazett) 408 ms U [facility] Work Phone: QTC Fredericia 375 ms [facility] Work Phone: R [place] 106 degrees [facility] Work Phone: T [place] 22 degrees [facility] Work Phone: T Offset 376 ms [facility] Work Phone: Ventricular Rate 99 BPM [facility] Work Phone: [facility] Work Phone: Electrocardiogram 12-lead HI N ACS symptomson 08-13-2024 [facility] Work Phone: Gas and Carbon monoxide and Electrolytes panel (BldA)on 08-13-2024 Anion gap 4 (BldA) [Moles/Vol] 15 [facility] Base excess Calc (Bld) [Moles/Vol] -2.2000 mmol/L Low -2.0 - 3.0 mmol/L [facility] Calcium.ionized (BldA) [Moles/Vol] 1.14 mmol/L 1.10 - 1.33 mmol/L [facility] Chloride (BldA) [Moles/Vol] 100 mmol/L 98 - 107 mmol/L [facility] CO2 (Bld) [Partial pressure] 25 mm[Hg] Low [facility] Glucose [Mass/Vol] 148 mg/dL High 74 - 99 mg/dL [facility] HCO3 (Bld) [Moles/Vol] 19.9 mmol/L Low 22.0 - 26.0 mmol/L [facility] Hematocrit Est (Bld) [Volume fraction] 29 % Low 36.0 - 46.0 % [facility] Hemoglobin (Bld) [Mass/Vol] 9.7 g/dL Low 12.0 - 16.0 g/dL [facility] Inhaled oxygen concentration 65 % [facility] Interpretation and review of laboratory results Abnormal [facility] Lactate (BldA) [Moles/Vol] 2 mmol/L 0.4 - 2.0 mmol/L [facility] Oxygen (Bld) [Partial pressure] 72 mm[Hg] Low [facility] Oxyhemoglobin (BldA) [Mass fraction] 95.3 % 94.0 - 98.0 % [facility] pH (Bld) 7.51 [pH] High 7.38 - 7.42 pH [facility] Potassium (BldA) [Moles/Vol] 3.7 mmol/L 3.5 - 5.3 mmol/L [facility] Sodium (BldA) [Moles/Vol] 131 mmol/L Low 136 - 145 mmol/L [facility] Anion gap 4 (BldA) [Moles/Vol] 15 mmo/L Normal 10-25 [facility] Comment on above: Performed By: #### 9 3685-6 ####STEFANO TROY ([id number])[facility] ([facility] [place], [place])[address] [place] [address] Base excess Calc (Bld) [Moles/Vol] -2.2000 mmol/L Low -2.0-3.0 [facility] Comment on above: Performed By: #### 9 3685-6 ####STEFANO TROY ([id number])[facility] ([facility] [place] [place])[address] [place] [address] Calcium.ionized (BldA) [Moles/Vol] 1.14 mmol/L Normal 1.10-1.33 [facility] Comment on above: Performed By: #### 9 3685-6 ####STEFANO TROY ([id number])[facility] ([facility] [place] [place])[address] [place] [address] Chloride (BldA) [Moles/Vol] 100 mmol/L Normal 98-107 [facility] Comment on above: Performed By: #### 9 3685-6 ####STEFANO TROY ([id number])[facility] ([facility] [place] [place])[address] [place] [address] CO2 (Bld) [Partial pressure] 25 mm Hg Low 38-42 [facility] Comment on above: Performed By: #### 9 3685-6 ####STEFANO TROY ([id number])[facility] ([facility] [place], [place])[address] [place], [place] [id number] Glucose [Mass/Vol] 148 mg/dL High 74-99 [facility] Comment on above: Performed By: #### 9 3685-6 ####STEFANO TROY ([id number])[facility] ([facility] [place] [place])[address] [place], [place] [address] HCO3 (Bld) [Moles/Vol] 19.9 mmol/L Low 22.0-26.0 [facility] Comment on above: Performed By: #### 9 3685-6 ####STEFANO TROY ([id number])[facility] ([facility] [place] [place])[address] [place] [address] Hematocrit Est (Bld) [Volume fraction] 29.0 % Low 36.0-46.0 [facility] Comment on above: Performed By: #### 9 3685-6 ####STEFANO TROY ([id number])[facility] ([facility] [place] [place])[address] [place] [address] Hemoglobin (Bld) [Mass/Vol] 9.7 g/dL Low 12.0-16.0 [facility] Comment on above: Performed By: #### 9 3685-6 ####STEFANO TROY ([id number])[facility] ([facility] [place] [place])[address] [place] [id number] Inhaled oxygen concentration 65 % Normal [facility] Comment on above: Performed By: #### 9 3685-6 ####STEFANO TROY ([id number])[facility] ([facility] [place] [place])[address] [place] [phone] Lactate (BldA) [Moles/Vol] 2.0 mmol/L Normal 0.4-2.0 [facility] Comment on above: Performed By: #### 9 3685-6 ####STEFANO TROY ([id number])[facility] ([facility] [place] [place])[address] [place] [address] Oxygen (Bld) [Partial pressure] 72 mm Hg Low 85-95 [facility] Comment on above: Performed By: #### 9 3685-6 ####STEFANO TROY ([id number])[facility] ([facility] [place] [place])[address] [place] [address] Oxyhemoglobin (BldA) [Mass fraction] 95.3 % Normal 94.0-98.0 [facility] Comment on above: Performed By: #### 9 3685-6 ####STEFANO TROY ([id number])[facility] ([facility] [place] [place])[address] [place] [address] pH (Bld) 7.51 [pH] High 7.38-7.42 [facility] Comment on above: Performed By: #### 9 3685-6 ####STEFANO TROY ([id number])[facility] ([facility] [place] [place])[address] [place] [address] Potassium (BldA) [Moles/Vol] 3.7 mmol/L Normal 3.5-5.3 [facility] Comment on above: Performed By: #### 9 3685-6 ####STEFANO TROY ([id number])[facility] ([facility] [place] [place])[address] [place] [address] Sodium (BldA) [Moles/Vol] 131 mmol/L Low 136-145 [facility] Comment on above: Performed By: #### 9 3685-6 ####STEFANO TROY ([id number])[facility] ([facility] [place] [place])[address] [place] [address] Glucose Test strip manual (B ld) [Mass/Vol]on 08-13-2024 Glucose [Mass/Vol] 150 mg/dL High 74 - 99 mg/dL [facility] Interpretation and review of laboratory results Abnormal [facility] Glucose [Mass/Vol] 150 mg/dL High 74-99 [facility] Comment on above: Performed By: #### 2 341-6 ####STEFANO TROY ([id number])[facility] ([facility] [place] [place])[address] [place] [address] Glucose [Mass/Vol] 142 mg/dL High 74 - 99 mg/dL [facility] Interpretation and review of laboratory results Abnormal [facility] Glucose [Mass/Vol] 142 mg/dL High 74-99 [facility] Comment on above: Performed By: #### 2 341-6 ####STEFANO TROY ([id number])[facility] ([facility] [place] [place])[address] [place] [address] Glucose [Mass/Vol] 127 mg/dL High 74 - 99 mg/dL [facility] Interpretation and review of laboratory results Abnormal [facility] Glucose [Mass/Vol] 127 mg/dL High 74-99 [facility] Comment on above: Performed By: #### 2 341-6 ####STEFANO TROY ([id number])[facility] ([facility] [place] [place])[address] [place] [phone] Glucose [Mass/Vol] 179 mg/dL High 74 - 99 mg/dL [facility] Interpretation and review of laboratory results Abnormal [facility] Glucose [Mass/Vol] 179 mg/dL High 74-99 [facility] Comment on above: Performed By: #### 2 341-6 ####STEFANO TROY ([id number])[facility] ([facility] [place] [place])[address] [place] [address] Legionella Antigen, UrineOrd ered By: Hannah Bower on 08-13-2024 Legionella sp Ag Ql (U) Negative Negative U [facility] No Panel InformationOrdered By: Hannah Bower on 08-13-2024 Interpretation and review of laboratory results Normal [facility] Renal function 2000 panelon 08-13-2024 Albumin BCP dye [Mass/Vol] 3.4 g/dL 3.4 - 5.0 g/dL [facility] Anion gap [Moles/Vol] 12 mmol/L 10 - 2 0 mmol/L [facility] Calcium [Mass/Vol] 7.7 mg/dL Low 8.6 - 10. 3 mg/dL [facility] Chloride [Moles/Vol] 101 mmol/L 98 - 10 7 mmol/L [facility] CO2 [Moles/Vol] 21 mmol/L 21 - 32 mmol/L [facility] Creatinine [Mass/Vol] 0.88 mg/dL 0.50 - 1.05 mg/dL [facility] GFR/1.73 sq M.predicted among non-blacks MDRD (S/P/Bld) [Vol rate/Area] 69 mL/min/{1.73_m2} - PINF [facility] Glucose [Mass/Vol] 161 mg/dL High 74 - 99 mg/dL [facility] Interpretation and review of laboratory results Abnormal [facility] Phosphate [Mass/Vol] 3.3 mg/dL 2.5 - 4 .9 mg/dL [facility] Potassium [Moles/Vol] 4 mmol/L 3.5 - 5.3 mmol/L [facility] Sodium [Moles/Vol] 130 mmol/L Low 136 - 145 mmol/L [facility] Urea nitrogen [Mass/Vol] 37 mg/dL High 6 - 23 mg/d L [facility] Albumin BCP dye [Mass/Vol] 3.4 g/dL Normal 3.4-5.0 [facility] Comment on above: Performed By: #### 2 4362-6 ####STEFANO TROY ([id number])[facility] ([facility] [place] [place])[address] [place] [address] Anion gap [Moles/Vol] 12 mmol/L Normal 10-20 [facility] Comment on above: Performed By: #### 2 4362-6 ####STEFANO TROY ([id number])[facility] ([facility] [place] [place])[address] [place], [place] [id number] Calcium [Mass/Vol] 7.7 mg/dL Low 8.6-10.3 [facility] Comment on above: Performed By: #### 2 4362-6 ####STEFANO TROY ([id number])[facility] ([facility] [place], [place])[address] [place] [address] Chloride [Moles/Vol] 101 mmol/L Normal 98-107 [facility] Comment on above: Performed By: #### 2 4362-6 ####STEFANO TROY ([id number])[facility] ([facility] [place] [place])[address] [place] [address] CO2 [Moles/Vol] 21 mmol/L Normal 21-32 [facility] Comment on above: Performed By: #### 2 4362-6 ####STEFANO TROY ([id number])[facility] ([facility] [place] [place])[address] [place] [address] Creatinine [Mass/Vol] 0.88 mg/dL Normal 0.50-1.05 [facility] Comment on above: Performed By: #### 2 4362-6 ####STEFANO TROY ([id number])[facility] ([facility] [place] [place])[address] [place] [address] Glomerular filtration rate/1.73 sq M.predicted 69 mL/min/1.73m*2 Normal >60 [facility] Comment on above: Result Comment: Calc ulations of estimated GFR are performed using the 2020 CKD-EPI Study Refit equation without the race variable for the IDMS-Traceable creatinine methods.https://jasn.asnjournals.org/content/early/ /ASN.8031069462 Performed By: #### 2 4362-6 ####STEFANO TROY ([id number])[facility] ([facility] [place] [place])[address] [place] [address] Glucose [Mass/Vol] 161 mg/dL High 74-99 [facility] Comment on above: Performed By: #### 2 4362-6 ####STEFANO TROY ([id number])[facility] ([facility] [place] [place])[address] [place] [address] Phosphate [Mass/Vol] 3.3 mg/dL Normal 2.5-4.9 [facility] Comment on above: Result Comment: The performance characteristics of phosphorus testing in heparinized plasma have been validated by the individual laboratory site where testing is performed. Testing on heparinized plasma is not approved by the FDA; however, such approval is not necessary. Performed By: #### 2 4362-6 ####STEFANO TROY ([id number])[facility] ([facility] [place] [place])[address] [place] [address] Potassium [Moles/Vol] 4.0 mmol/L Normal 3.5-5.3 [facility] Comment on above: Performed By: #### 2 4362-6 ####STEFANO TROY ([id number])[facility] ([facility] [place] [place])[address] [place] [address] Sodium [Moles/Vol] 130 mmol/L Low 136-145 [facility] Comment on above: Performed By: #### 2 4362-6 ####STEFANO TROY ([id number])[facility] ([facility] [place] [place])[address] [place] [address] Urea nitrogen [Mass/Vol] 37 mg/dL High 6- [facility] Comment on above: Performed By: #### 2 4362-6 ####STEFANO TROY ([id number])[facility] ([facility] [place] [place])[address] [place] [address] Streptococcus pneumoniae Ant igen, Urineon 08-13-2024 S. pneumoniae Ag Ql (U) Negative Negative U [facility] Work Phone: XR CHEST 1 VIEWon 08-13-2024 XR CHEST 1 VIEW Normal [facility] XR Chest Single viewon 08-13 [facility] MMODAL U[facility] MMODAL [facility] Work Phone: Radiology Study observation (narrative) [facility] Work Phone: XR Chest Single viewOrdered By: Chirag Ortega on 08-13-2024 [facility] Work Phone: Bacteria identifiedon 2023 Bacteria identified Cx Nom (Bld) Normal [facility] Comment on above: Performed By: #### 6 00-7 ####ZABRINA Villalba ([id number])[facility] ([facility])[address] [place], [place] [id number] CBC W Auto Differential pane l (Bld)on 08-12-2024 Basophils (Bld) [#/Vol] 0.02 10*3/uL [facility] Basophils/100 WBC (Bld) 0.1 % 0.0 - 2.0 % [facility] Eosinophils (Bld) [#/Vol] 0.02 10*3/uL [facility] Eosinophils/100 WBC (Bld) 0.1 % 0.0 - 6.0 % [facility] Erythrocyte distribution width (RBC) [Ratio] 16 % High 11.5 - 14.5 % [facility] Hematocrit (Bld) [Volume fraction] 30.2 % Low 36.0 - 46.0 % [facility] Hemoglobin (Bld) [Mass/Vol] 10.3 g/dL Low 12.0 - 16.0 g/dL [facility] Immature granulocytes (Bld) [#/Vol] 0.13 10*3/uL [facility] Immature granulocytes/100 WBC (Bld) 0.7 % 0.0 - 0.9 % [facility] Interpretation and review of laboratory results Abnormal [facility] Lymphocytes (Bld) [#/Vol] 2.27 10*3/uL [facility] Lymphocytes/100 WBC (Bld) 12.3 % 13.0 - 44.0 % [facility] MCH (RBC) [Entitic mass] 30.1 pg 26. 0 - 34.0 pg [facility] MCHC (RBC) [Mass/Vol] 34.1 g/dL 32.0 - 36.0 g/dL [facility] MCV (RBC) [Entitic vol] 88 fL 80 - 100 fL [facility] Monocytes (Bld) [#/Vol] 2.16 10*3/uL High [facility] Monocytes/100 WBC (Bld) 11.7 % 2.0 - 10.0 % [facility] Neutrophils (Bld) [#/Vol] 13.84 10*3/uL High [facility] Neutrophils/100 WBC (Bld) 75.1 % 40.0 - 80.0 % [facility] Nucleated RBC/100 WBC (Bld) [Ratio] 0 % [facility] Platelets (Bld) [#/Vol] 237 10*3/uL [facility] RBC (Bld) [#/Vol] 3.42 10*6/uL Low [facility] WBC (Bld) [#/Vol] 19.2 10*3/uL High [facility] Basophils (Bld) [#/Vol] 0.02 x10*3/uL Normal 0.00-0.10 [facility] Comment on above: Performed By: #### 5 7021-8 ####STEFANO TROY ([id number])[facility] ([facility] [place] [place])[address] [place] [address] Basophils/100 WBC (Bld) 0.1 % Normal 0.0-2.0 [facility] Comment on above: Performed By: #### 5 7021-8 ####STEFANO TROY ([id number])[facility] ([facility] [place] [place])[address] [place] [address] Eosinophils (Bld) [#/Vol] 0.02 x10*3/uL Normal 0.00-0.40 [facility] Comment on above: Performed By: #### 5 7021-8 ####STEFANO TROY ([id number])[facility] ([facility] [place] [place])[address] [place] [id number] Eosinophils/100 WBC (Bld) 0.1 % Normal 0.0-6.0 [facility] Comment on above: Performed By: #### 5 7021-8 ####STEFANO TROY ([id number])[facility] ([facility] [place] [place])[address] [place] [address] Immature granulocytes (Bld) [#/Vol] 0.13 x10*3/uL Normal 0.00-0.50 [facility] Comment on above: Performed By: #### 5 7021-8 ####STEFANO TROY ([id number])[facility] ([facility] [place] [place])[address] [place] [id number] Immature granulocytes/100 WBC (Bld) 0.7 % Normal 0.0-0.9 [facility] Comment on above: Result Comment: Laurie ture Granulocyte Count (IG) includes promyelocytes, myelocytes and metamyelocytes but does not include bands. Percent differential counts (%) should be interpreted in the context of the absolute cell counts (cells/UL). Performed By: #### 5 7021-8 ####STEFANO TROY ([id number])[facility] ([facility] [place] [place])[address] [place], [place] [id number] Lymphocytes (Bld) [#/Vol] 2.27 x10*3/uL Normal 0.80-3.00 [facility] Comment on above: Performed By: #### 5 7021-8 ####STEFANO TROY ([id number])[facility] ([facility] [place] [place])[address] [place] [address] Lymphocytes/100 WBC (Bld) 12.3 % Normal 13.0-44.0 [facility] Comment on above: Performed By: #### 5 7021-8 ####STEFANO TROY ([id number])[facility] ([facility] [place] [place])[address] [place] [address] Monocytes (Bld) [#/Vol] 2.16 x10*3/uL High 0.05-0.80 [facility] Comment on above: Performed By: #### 5 7021-8 ####STEFANO TROY ([id number])[facility] ([facility] [place] [place])[address] [place] [address] Monocytes/100 WBC (Bld) 11.7 % Normal 2.0-10.0 [facility] Comment on above: Performed By: #### 5 7021-8 ####STEFANO TROY ([id number])[facility] ([facility] [place], [place])[address] [place] [address] Neutrophils (Bld) [#/Vol] 13.84 x10*3/uL High 1.60-5.50 [facility] Comment on above: Result Comment: Perc ent differential counts (%) should be interpreted in the context of the absolute cell counts (cells/uL). Performed By: #### 5 7021-8 ####STEFANO TROY ([id number])[facility] ([facility] [place] [place])[address] [place] [address] Neutrophils/100 WBC (Bld) 75.1 % Normal 40.0-80.0 [facility] Comment on above: Performed By: #### 5 7021-8 ####STEFANO TROY ([id number])[facility] ([facility] [place] [place])[address] [place] [address] CBC panel Auto (Bld)on 08-12 Erythrocyte distribution width (RBC) [Ratio] 16 % High 11.5 - 14.5 % [facility] Hematocrit (Bld) [Volume fraction] 30.2 % Low 36.0 - 46.0 % [facility] Hemoglobin (Bld) [Mass/Vol] 10.3 g/dL Low 12.0 - 16.0 g/dL [facility] Interpretation and review of laboratory results Abnormal [facility] MCH (RBC) [Entitic mass] 30.1 pg 26. 0 - 34.0 pg [facility] MCHC (RBC) [Mass/Vol] 34.1 g/dL 32.0 - 36.0 g/dL [facility] MCV (RBC) [Entitic vol] 88 fL 80 - 100 fL [facility] Nucleated RBC/100 WBC (Bld) [Ratio] 0 % [facility] Platelets (Bld) [#/Vol] 237 10*3/uL [facility] RBC (Bld) [#/Vol] 3.42 10*6/uL Low [facility] WBC (Bld) [#/Vol] 19.2 10*3/uL High [facility] Erythrocyte distribution width (RBC) [Ratio] 16.1 % High 11.5 - 14.5 % [facility] Hematocrit (Bld) [Volume fraction] 27.7 % Low 36.0 - 46.0 % [facility] Hemoglobin (Bld) [Mass/Vol] 9 g/dL Low 12.0 - 16.0 g/dL [facility] Interpretation and review of laboratory results Abnormal [facility] MCH (RBC) [Entitic mass] 29.5 pg 26. 0 - 34.0 pg [facility] MCHC (RBC) [Mass/Vol] 32.5 g/dL 32.0 - 36.0 g/dL [facility] MCV (RBC) [Entitic vol] 91 fL 80 - 100 fL [facility] Nucleated RBC/100 WBC (Bld) [Ratio] 0 % [facility] Platelets (Bld) [#/Vol] 186 10*3/uL [facility] RBC (Bld) [#/Vol] 3.05 10*6/uL Low [facility] WBC (Bld) [#/Vol] 12.4 10*3/uL High [facility] Erythrocyte distribution width (RBC) [Ratio] 16.1 % High 11.5-14.5 [facility] Comment on above: Performed By: #### 5 8410-2 ####STEFANO TROY ([id number])[facility] ([facility] [place] [place])[address] [place] [address] Hematocrit (Bld) [Volume fraction] 27.7 % Low 36.0-46.0 [facility] Comment on above: Performed By: #### 5 8410-2 ####STEFANO TROY ([id number])[facility] ([facility] [place] [place])[address] [place] [address] Hemoglobin (Bld) [Mass/Vol] 9.0 g/dL Low 12.0-16.0 [facility] Comment on above: Performed By: #### 5 8410-2 ####STEFANO TROY ([id number])[facility] ([facility] [place] [place])[address] [place] [id number] MCH (RBC) [Entitic mass] 29.5 pg Normal 26.0-34.0 [facility] Comment on above: Performed By: #### 5 8410-2 ####STEFANO TROY ([id number])[facility] ([facility] [place] [place])[address] [place] [address] MCHC (RBC) [Mass/Vol] 32.5 g/dL Normal 32.0-36.0 [facility] Comment on above: Performed By: #### 5 8410-2 ####STEFANO TROY ([id number])[facility] ([facility] [place] [place])[address] [place] [address] MCV (RBC) [Entitic vol] 91 fL Normal 80-100 [facility] Comment on above: Performed By: #### 5 8410-2 ####STEFANO TROY ([id number])[facility] ([facility] [place] [place])[address] [place] [address] Nucleated RBC/100 WBC (Bld) [Ratio] 0.0 /100 WBCs Normal 0.0-0.0 [facility] Comment on above: Performed By: #### 5 8410-2 ####STEFANO TROY ([id number])[facility] ([facility] [place] [place])[address] [place] [address] Platelets (Bld) [#/Vol] 186 x10*3/uL Normal 150-450 [facility] Comment on above: Performed By: #### 5 8410-2 ####STEFANO TROY ([id number])[facility] ([facility] [place] [place])[address] [place] [address] RBC (Bld) [#/Vol] 3.05 x10*6/uL Low 4.00-5.20 [facility] Comment on above: Performed By: #### 5 8410-2 ####STEFANO TROY ([id number])[facility] ([facility] [place] [place])[address] [place] [address] WBC (Bld) [#/Vol] 12.4 x10*3/uL High 4.4-11.3 [facility] Comment on above: Performed By: #### 5 8410-2 ####STEFANO TROY ([id number])[facility] ([facility] [place] [place])[address] [place], [place] [id number] Erythrocyte distribution width (RBC) [Ratio] 14.8 % High 11.5 - 14.5 % [facility] Hematocrit (Bld) [Volume fraction] 25.4 % Low 36.0 - 46.0 % [facility] Hemoglobin (Bld) [Mass/Vol] 9 g/dL Low 12.0 - 16.0 g/dL [facility] Interpretation and review of laboratory results Abnormal [facility] MCH (RBC) [Entitic mass] 30.1 pg 26. 0 - 34.0 pg [facility] MCHC (RBC) [Mass/Vol] 35.4 g/dL 32.0 - 36.0 g/dL [facility] MCV (RBC) [Entitic vol] 85 fL 80 - 100 fL [facility] Nucleated RBC/100 WBC (Bld) [Ratio] 0 % [facility] Platelets (Bld) [#/Vol] 182 10*3/uL [facility] RBC (Bld) [#/Vol] 2.99 10*6/uL [facility] WBC (Bld) [#/Vol] 11 10*3/uL [facility] Erythrocyte distribution width (RBC) [Ratio] 14.8 % High 11.5-14.5 [facility] Comment on above: Performed By: #### 5 8410-2 ####STEFANO TROY ([id number])[facility] ([facility] [place] [place])[address] [place] [address] Hematocrit (Bld) [Volume fraction] 25.4 % Low 36.0-46.0 [facility] Comment on above: Performed By: #### 5 8410-2 ####STEFANO TROY ([id number])[facility] ([facility] [place] [place])[address] [place] [address] Hemoglobin (Bld) [Mass/Vol] 9.0 g/dL Low 12.0-16.0 [facility] Comment on above: Performed By: #### 5 8410-2 ####STEFANO TROY ([id number])[facility] ([facility] [place] [place])[address] [place] [address] MCH (RBC) [Entitic mass] 30.1 pg Normal 26.0-34.0 [facility] Comment on above: Performed By: #### 5 8410-2 ####STEFANO TROY ([id number])[facility] ([facility] [place] [place])[address] [place] [address] MCHC (RBC) [Mass/Vol] 35.4 g/dL Normal 32.0-36.0 [facility] Comment on above: Performed By: #### 5 8410-2 ####STEFANO TROY ([id number])[facility] ([facility] [place] [place])[address] [place] [address] MCV (RBC) [Entitic vol] 85 fL Normal 80-100 [facility] Comment on above: Performed By: #### 5 8410-2 ####STEFANO TROY ([id number])[facility] ([facility] [place] [place])[address] [place] [id number] Nucleated RBC/100 WBC (Bld) [Ratio] 0.0 /100 WBCs Normal 0.0-0.0 [facility] Comment on above: Performed By: #### 5 8410-2 ####STEFANO TROY ([id number])[facility] ([facility] [place] [place])[address] [place] [address] Platelets (Bld) [#/Vol] 182 x10*3/uL Normal 150-450 [facility] Comment on above: Performed By: #### 5 8410-2 ####STEFANO TROY ([id number])[facility] ([facility] [place] [place])[address] [place] [address] RBC (Bld) [#/Vol] 2.99 x10*6/uL Low 4.00-5.20 [facility] Comment on above: Performed By: #### 5 8410-2 ####STEFANO TROY ([id number])[facility] ([facility] [place] [place])[address] [place] [address] WBC (Bld) [#/Vol] 11.0 x10*3/uL Normal 4.4-11.3 [facility] Comment on above: Performed By: #### 5 8410-2 ####STEFANO TROY ([id number])[facility] ([facility] [place] [place])[address] [place], [place] [id number] Coagulation factor VIII acti vity actual/normal Coag (PPP) [Relative time]Ordered By: Katelin Childs on 08-12-2024 Interpretation and review of laboratory results Normal [facility] Complete blood count panelon 08-12-2024 Erythrocyte distribution width (RBC) [Ratio] 16.0 % High 11.5-14.5 [facility] Comment on above: Performed By: #### 5 8410-2 ####STEFANO TROY ([id number])[facility] ([facility] [place] [place])[address] [place] [address] Performed By: #### 5 7021-8 ####STEFANO TROY ([id number])[facility] ([facility] [place] [place])[address] [place] [address] Hematocrit (Bld) [Volume fraction] 30.2 % Low 36.0-46.0 [facility] Comment on above: Performed By: #### 5 8410-2 ####STEFANO TROY ([id number])[facility] ([facility] [place] [place])[address] [place] [address] Performed By: #### 5 7021-8 ####STEFANO TROY ([id number])[facility] ([facility] [place] [place])[address] [place] [address] Hemoglobin (Bld) [Mass/Vol] 10.3 g/dL Low 12.0-16.0 [facility] Comment on above: Performed By: #### 5 8410-2 ####STEFANO TROY ([id number])[facility] ([facility] [place] [place])[address] [place] [address] Performed By: #### 5 7021-8 ####STEFANO TROY ([id number])[facility] ([facility] [place] [place])[address] [place] [address] MCH (RBC) [Entitic mass] 30.1 pg Normal 26.0-34.0 [facility] Comment on above: Performed By: #### 5 8410-2 ####STEFANO TROY ([id number])[facility] ([facility] [place] [place])[address] [place] [address] Performed By: #### 5 7021-8 ####STEFANO TROY ([id number])[facility] ([facility] [place] [place])[address] [place] [address] MCHC (RBC) [Mass/Vol] 34.1 g/dL Normal 32.0-36.0 [facility] Comment on above: Performed By: #### 5 8410-2 ####STEFANO TROY ([id number])[facility] ([facility] [place] [place])[address] [place] [address] Performed By: #### 5 7021-8 ####STEFANO TROY ([id number])[facility] ([facility] [place] [place])[address] [place] [address] MCV (RBC) [Entitic vol] 88 fL Normal 80-100 [facility] Comment on above: Performed By: #### 5 8410-2 ####STEFANO TROY ([id number])[facility] ([facility] [place] [place])[address] [place] [address] Performed By: #### 5 7021-8 ####STEFANO TROY ([id number])[facility] ([facility] [place] [place])[address] [place] [id number] Nucleated RBC/100 WBC (Bld) [Ratio] 0.0 /100 WBCs Normal 0.0-0.0 [facility] Comment on above: Performed By: #### 5 8410-2 ####STEFANO TROY ([id number])[facility] ([facility] [place] [place])[address] [place] [address] Performed By: #### 5 7021-8 ####STEFANO TROY ([id number])[facility] ([facility] [place] [place])[address] [place] [address] Platelets (Bld) [#/Vol] 237 x10*3/uL Normal 150-450 [facility] Comment on above: Performed By: #### 5 8410-2 ####STEFANO TROY ([id number])[facility] ([facility] [place] [place])[address] [place] [address] Performed By: #### 5 7021-8 ####STEFANO TROY ([id number])[facility] ([facility] [place] [place])[address] [place] [address] RBC (Bld) [#/Vol] 3.42 x10*6/uL Low 4.00-5.20 [facility] Comment on above: Performed By: #### 5 8410-2 ####STEFANO TROY ([id number])[facility] ([facility] [place] [place])[address] [place] [address] Performed By: #### 5 7021-8 ####STEFANO TROY ([id number])[facility] ([facility] [place] [place])[address] [place] [address] WBC (Bld) [#/Vol] 19.2 x10*3/uL High 4.4-11.3 [facility] Comment on above: Performed By: #### 5 8410-2 ####STEFANO TROY ([id number])[facility] ([facility] [place] [place])[address] [place] [address] Performed By: #### 5 7021-8 ####STEFANO TROY ([id number])[facility] ([facility] [place] [place])[address] [place] [id number] ECG 12-LEADon 08-12-2024 ECG 12-LEAD Ventricular Rate 99 Atrial Rate 99 P-R Interval 288 QRS Duration 132 Q-T Interval 318 QTC Calculation(Bazett) 408 R [place] 106 T [place] 22 QRS Count 16 Q Onset 217 T Offset 376 QTC Fredericia 375 Diagnosis Sinus rhythm with 1st degree AV block Nonspecific intraventricular block Anterolateral infarct (cited on or before 12-AUG-2024) Abnormal ECG When compared with ECG of 12-AUG-2024 08:32, Sinus rhythm has replaced Atrial fibrillation Questionable change in initial forces of Anterolateral leads Confirmed by Alexy Montana ([id number]) on 08/13/2024 10:22:47 AM Normal [facility] ECG 12-LEAD Ventricular Rate 121 Atrial Rate 133 QRS Duration 130 Q-T Interval 350 QTC Calculation(Bazett) 497 R [place] 89 T [place] 47 QRS Count 20 Q Onset 213 T Offset 388 QTC Fredericia 442 Diagnosis Atrial fibrillation with rapid ventricular response Low voltage QRS Nonspecific intraventricular block Cannot rule out Septal infarct , age undetermined Possible Lateral infarct , age undetermined Abnormal ECG Confirmed by Staci Díaz ([id number]) on 08/12/2024 11:41:30 AM Normal [facility] Electrocardiogram 12-lead HI N for arrhythmiaon 08-12-2024 Atrial Rate 133 BPM [facility] Work Phone: Q Onset 213 ms [facility] Work Phone: QRS Count 20 beats [facility] Work Phone: QRS Duration 130 ms [facility] Work Phone: QT Interval 350 ms [facility] Work Phone: QTC Calculation(Bazett) 497 ms U [facility] Work Phone: QTC Fredericia 442 ms [facility] Work Phone: R [place] 89 degrees [facility] Work Phone: T [place] 47 degrees [facility] Work Phone: [phone] T Offset 388 ms [facility] Work Phone: Ventricular Rate 121 BPM [facility] Work Phone: MUSE [facility] Work Phone: [facility] Work Phone: Factor 8 ActivityOrdered By: Katelin Childs on 08-12-2024 Coagulation factor VIII activity actual/normal Coag (PPP) [Relative time] 108 % 55 - 180 % [facility] Gas and Carbon monoxide and Electrolytes panel (BldA)on 08-12-2024 Anion gap 4 (BldA) [Moles/Vol] 16 [facility] [employer]aratus HIGH FLOW CANNULA [facility] Base excess Calc (Bld) [Moles/Vol] -4.2000 mmol/L Low -2.0 - 3.0 mmol/L [facility] Calcium.ionized (BldA) [Moles/Vol] 1.17 mmol/L 1.10 - 1.33 mmol/L [facility] Chloride (BldA) [Moles/Vol] 100 mmol/L 98 - 107 mmol/L [facility] CO2 (Bld) [Partial pressure] 26 mm[Hg] Low [facility] Flow 60 LPM [facility] Glucose [Mass/Vol] 213 mg/dL High 74 - 99 mg/dL [facility] HCO3 (Bld) [Moles/Vol] 18.5 mmol/L Low 22.0 - 26.0 mmol/L [facility] Hematocrit Est (Bld) [Volume fraction] 31 % Low 36.0 - 46.0 % [facility] Hemoglobin (Bld) [Mass/Vol] 10.4 g/dL Low 12.0 - 16.0 g/dL [facility] Inhaled oxygen concentration 90 % [facility] Interpretation and review of laboratory results Abnormal [facility] Lactate (BldA) [Moles/Vol] 2.4 mmol/L High 0.4 - 2.0 mmol/L [facility] Oxygen (Bld) [Partial pressure] 117 mm[Hg] High [facility] Oxyhemoglobin (BldA) [Mass fraction] 97.3 % 94.0 - 98.0 % [facility] pH (Bld) 7.46 [pH] High 7.38 - 7.42 pH [facility] Potassium (BldA) [Moles/Vol] 4.3 mmol/L 3.5 - 5.3 mmol/L [facility] Sodium (BldA) [Moles/Vol] 130 mmol/L Low 136 - 145 mmol/L [facility] Specimen drawn from Nom Arterial Line [facility] Anion gap 4 (BldA) [Moles/Vol] 16 mmo/L Normal 10-25 [facility] Comment on above: Performed By: #### 9 3685-6 ####STEFANO TROY ([id number])[facility] ([facility] [place] [place])[address] [place] [address] APPARATUS HIGH FLOW CANNULA Normal [facility] Comment on above: Performed By: #### 9 3685-6 ####STEFANO TROY ([id number])[facility] ([facility] [place] [place])[address] [place] [address] Base excess Calc (Bld) [Moles/Vol] -4.2000 mmol/L Low -2.0-3.0 [facility] Comment on above: Performed By: #### 9 3685-6 ####STEFANO TROY ([id number])[facility] ([facility] – [place], [place])[address] [place] [address] Calcium.ionized (BldA) [Moles/Vol] 1.17 mmol/L Normal 1.10-1.33 [facility] Comment on above: Performed By: #### 9 3685-6 ####STEFANO TROY ([id number])[facility] ([facility] – [place], [place])[address] [place] [address] Chloride (BldA) [Moles/Vol] 100 mmol/L Normal 98-107 [facility] Comment on above: Performed By: #### 9 3685-6 ####STEFANO TROY ([id number])[facility] ([facility] – [place], [place])[address] [place] [address] CO2 (Bld) [Partial pressure] 26 mm Hg Low 38-42 [facility] Comment on above: Performed By: #### 9 3685-6 ####STEFANO TROY ([id number])[facility] ([facility] [place], [place])[address] [place] [address] FLOW 60.0 LPM Normal [facility] Comment on above: Performed By: #### 9 3685-6 ####STEFANO TROY ([id number])[facility] ([facility] [place], [place])[address] [place] [address] Glucose [Mass/Vol] 213 mg/dL High 74-99 [facility] Comment on above: Performed By: #### 9 3685-6 ####STEFANO TROY ([id number])[facility] ([facility] [place], [place])[address] [place] [address] HCO3 (Bld) [Moles/Vol] 18.5 mmol/L Low 22.0-26.0 [facility] Comment on above: Performed By: #### 9 3685-6 ####STEFANO TROY ([id number])[facility] ([facility] [place] [place])[address] [place] [address] Hematocrit Est (Bld) [Volume fraction] 31.0 % Low 36.0-46.0 [facility] Comment on above: Performed By: #### 9 3685-6 ####STEFANO TROY ([id number])[facility] ([facility] [place] [place])[address] [place] [address] Hemoglobin (Bld) [Mass/Vol] 10.4 g/dL Low 12.0-16.0 [facility] Comment on above: Performed By: #### 9 3685-6 ####STEFANO TROY ([id number])[facility] ([facility] [place] [place])[address] [place] [address] Inhaled oxygen concentration 90 % Normal [facility] Comment on above: Performed By: #### 9 3685-6 ####STEFANO TROY ([id number])[facility] ([facility] [place] [place])[address] [place] [address] Lactate (BldA) [Moles/Vol] 2.4 mmol/L High 0.4-2.0 [facility] Comment on above: Performed By: #### 9 3685-6 ####STEFANO TROY ([id number])[facility] ([facility] [place] [place])[address] [place] [address] Oxygen (Bld) [Partial pressure] 117 mm Hg High 85-95 [facility] Comment on above: Performed By: #### 9 3685-6 ####STEFANO TROY ([id number])[facility] ([facility] [place] [place])[address] [place] [address] Oxyhemoglobin (BldA) [Mass fraction] 97.3 % Normal 94.0-98.0 [facility] Comment on above: Performed By: #### 9 3685-6 ####STEFANO TROY ([id number])[facility] ([facility] [place] [place])[address] [place] [address] pH (Bld) 7.46 [pH] High 7.38-7.42 [facility] Comment on above: Performed By: #### 9 3685-6 ####STEFANO TROY ([id number])[facility] ([facility] [place] [place])[address] [place] [address] Potassium (BldA) [Moles/Vol] 4.3 mmol/L Normal 3.5-5.3 [facility] Comment on above: Performed By: #### 9 3685-6 ####STEFANO TROY ([id number])[facility] ([facility] [place] [place])[address] [place] [address] Sodium (BldA) [Moles/Vol] 130 mmol/L Low 136-145 [facility] Comment on above: Performed By: #### 9 3685-6 ####STEFANO TROY ([id number])[facility] ([facility] [place] [place])[address] [place] [address] Specimen drawn from Nom Arterial Line Normal [facility] Comment on above: Performed By: #### 9 3685-6 ####STEFANO TROY ([id number])[facility] ([facility] [place] [place])[address] [place] [address] Anion gap 4 (BldA) [Moles/Vol] 10 [facility] Base excess Calc (Bld) [Moles/Vol] -3.2000 mmol/L Low -2.0 - 3.0 mmol/L [facility] Calcium.ionized (BldA) [Moles/Vol] 1.13 mmol/L 1.10 - 1.33 mmol/L [facility] Chloride (BldA) [Moles/Vol] 105 mmol/L 98 - 107 mmol/L [facility] CO2 (Bld) [Partial pressure] 20 mm[Hg] Low [facility] Glucose [Mass/Vol] 214 mg/dL High 74 - 99 mg/dL [facility] HCO3 (Bld) [Moles/Vol] 17.5 mmol/L Low 22.0 - 26.0 mmol/L [facility] Hematocrit Est (Bld) [Volume fraction] 33 % Low 36.0 - 46.0 % [facility] Hemoglobin (Bld) [Mass/Vol] 11.1 g/dL Low 12.0 - 16.0 g/dL [facility] Inhaled oxygen concentration 80 % [facility] Interpretation and review of laboratory results Abnormal [facility] Lactate (BldA) [Moles/Vol] 2.4 mmol/L High 0.4 - 2.0 mmol/L [facility] Oxygen (Bld) [Partial pressure] 58 mm[Hg] Low [facility] Oxyhemoglobin (BldA) [Mass fraction] 91.6 % Low 94.0 - 98.0 % [facility] pH (Bld) 7.55 [pH] High 7.38 - 7.42 pH [facility] Potassium (BldA) [Moles/Vol] 4.2 mmol/L 3.5 - 5.3 mmol/L [facility] Sodium (BldA) [Moles/Vol] 128 mmol/L Low 136 - 145 mmol/L [facility] Anion gap 4 (BldA) [Moles/Vol] 10 mmo/L Normal 10-25 [facility] Comment on above: Performed By: #### 9 3685-6 ####STEFANO TROY ([id number])[facility] ([facility] [place], [place])[address] [place] [address] Base excess Calc (Bld) [Moles/Vol] -3.2000 mmol/L Low -2.0-3.0 [facility] Comment on above: Performed By: #### 9 3685-6 ####STEFANO TROY ([id number])[facility] ([facility] [place], [place])[address] [place] [address] Calcium.ionized (BldA) [Moles/Vol] 1.13 mmol/L Normal 1.10-1.33 [facility] Comment on above: Performed By: #### 9 3685-6 ####STEFANO TROY ([id number])[facility] ([facility] [place], [place])[address] [place], [place] [address] Chloride (BldA) [Moles/Vol] 105 mmol/L Normal 98-107 [facility] Comment on above: Performed By: #### 9 3685-6 ####STEFANO TROY ([id number])[facility] ([facility] [place], [place])[address] [place], [place] [address] CO2 (Bld) [Partial pressure] 20 mm Hg Low 38-42 [facility] Comment on above: Performed By: #### 9 3685-6 ####STEFANO TROY ([id number])[facility] ([facility] [place], [place])[address] [place], [place] [address] Glucose [Mass/Vol] 214 mg/dL High 74-99 [facility] Comment on above: Performed By: #### 9 3685-6 ####STEFANO TROY ([id number])[facility] ([facility] [place] [place])[address] [place] [address] HCO3 (Bld) [Moles/Vol] 17.5 mmol/L Low 22.0-26.0 [facility] Comment on above: Performed By: #### 9 3685-6 ####STEFANO TROY ([id number])[facility] ([facility] [place], [place])[address] [place] [phone] Hematocrit Est (Bld) [Volume fraction] 33.0 % Low 36.0-46.0 [facility] Comment on above: Performed By: #### 9 3685-6 ####STEFANO TROY ([id number])[facility] ([facility] [place] [place])[address] [place] [address] Hemoglobin (Bld) [Mass/Vol] 11.1 g/dL Low 12.0-16.0 [facility] Comment on above: Performed By: #### 9 3685-6 ####STEFANO TROY ([id number])[facility] ([facility] [place] [place])[address] [place] [phone] Inhaled oxygen concentration 80 % Normal [facility] Comment on above: Performed By: #### 9 3685-6 ####STEFANO TROY ([id number])[facility] ([facility] [place] [place])[address] [place] [address] Lactate (BldA) [Moles/Vol] 2.4 mmol/L High 0.4-2.0 [facility] Comment on above: Performed By: #### 9 3685-6 ####STEFANO TROY ([id number])[facility] ([facility] [place] [place])[address] [place] [address] Oxygen (Bld) [Partial pressure] 58 mm Hg Low 85-95 [facility] Comment on above: Performed By: #### 9 3685-6 ####STEFANO TROY ([id number])[facility] ([facility] [place] [place])[address] [place] [address] Oxyhemoglobin (BldA) [Mass fraction] 91.6 % Low 94.0-98.0 [facility] Comment on above: Performed By: #### 9 3685-6 ####STEFANO TROY ([id number])[facility] ([facility] [place] [place])[address] [place] [address] pH (Bld) 7.55 [pH] High 7.38-7.42 [facility] Comment on above: Performed By: #### 9 3685-6 ####STEFANO TROY ([id number])[facility] ([facility] [place] [place])[address] [place] [address] Potassium (BldA) [Moles/Vol] 4.2 mmol/L Normal 3.5-5.3 [facility] Comment on above: Performed By: #### 9 3685-6 ####STEFANO TROY ([id number])[facility] ([facility] [place] [place])[address] [place] [address] Sodium (BldA) [Moles/Vol] 128 mmol/L Low 136-145 [facility] Comment on above: Performed By: #### 9 3685-6 ####STEFANO TROY ([id number])[facility] ([facility] [place] [place])[address] [place] [address] Gas panelon 08-12-2024 Lactate (BldV) [Moles/Vol] 2.3 mmol/L High 0.4-2.0 [facility] Comment on above: Order Comment: Pleas e obtain from distal port of CVCBedside RN to obtain sample Performed By: #### 2 4339-4 ####STEFANO TROY ([id number])[facility] ([facility] [place], [place])[address] [place] [address] Performed By: #### 2 519-7 ####STEFANO TROY ([id number])[facility] ([facility] [place] [place])[address] [place] [address] Gas panel (BldV)on 4 Anion gap 4 (BldV) [Moles/Vol] 11 mmol/L 10.0 - 25.0 mmol/L [facility] Base excess Calc (BldV) [Moles/Vol] -4.3000 mmol/L Low -2.0 - 3.0 mmol/L [facility] Calcium.ionized (BldV) [Moles/Vol] 1.11 mmol/L 1.10 - 1.33 mmol/L [facility] Chloride (BldV) [Moles/Vol] 103 mmol/L 98 - 107 mmol/L [facility] CO2 (BldV) [Partial pressure] 33 mm[Hg] Low [facility] Flow 60 LPM [facility] Glucose [Mass/Vol] 189 mg/dL High 74 - 99 mg/dL [facility] HCO3 (Bld) [Moles/Vol] 20 mmol/L Low 22.0 - 26.0 mmol/L [facility] Hematocrit Est (Bld) [Volume fraction] 31 % Low 36.0 - 46.0 % [facility] Hemoglobin (Bld) [Mass/Vol] 10.2 g/dL Low 12.0 - 16.0 g/dL [facility] Inhaled oxygen concentration 90 % [facility] Oxygen (BldV) [Partial pressure] 30 mm[Hg] Low [facility] Oxygen saturation in Venous blood 50 % 45 - 75 % [facility] Oxyhemoglobin (BldV) [Mass fraction] 49.5 % 45.0 - 75.0 % [facility] pH (BldV) 7.39 [pH] 7.33 - 7.43 pH [facility] Potassium (BldV) [Moles/Vol] 4 mmol/L 3.5 - 5.3 mmol/L [facility] Sodium (BldV) [Moles/Vol] 130 mmol/L Low 136 - 145 mmol/L [facility] Anion gap 4 (BldV) [Moles/Vol] 11.0 mmol/L Normal 10.0-25.0 [facility] Comment on above: Order Comment: Ilir rucker obtain from distal port of CVCBedside RN to obtain sample Performed By: #### 2 4339-4 ####STEFANO TROY ([id number])[facility] ([facility] [place], [place])[address] [place] [address] Base excess Calc (BldV) [Moles/Vol] -4.3000 mmol/L Low -2.0-3.0 [facility] Comment on above: Order Comment: Pleas e obtain from distal port of CVCBedside RN to obtain sample Performed By: #### 2 4339-4 ####STEFANO TROY ([id number])[facility] ([facility] [place], [place])[address] [place] [address] Calcium.ionized (BldV) [Moles/Vol] 1.11 mmol/L Normal 1.10-1.33 [facility] Comment on above: Order Comment: Pleas e obtain from distal port of CVCBedside RN to obtain sample Performed By: #### 2 4339-4 ####STEFANO TROY ([id number])[facility] ([facility] [place], [place])[address] [place] [address] Chloride (BldV) [Moles/Vol] 103 mmol/L Normal 98-107 [facility] Comment on above: Order Comment: Pleas e obtain from distal port of CVCBedside RN to obtain sample Performed By: #### 2 4339-4 ####STEFANO TROY ([id number])[facility] ([facility] [place], [place])[address] [place] [address] CO2 (BldV) [Partial pressure] 33 mm Hg Low 41-51 [facility] Comment on above: Order Comment: Pleas e obtain from distal port of CVCBedside RN to obtain sample Performed By: #### 2 4339-4 ####STEFANO TROY ([id number])[facility] ([facility] [place], [place])[address] [place], [place] [address] FLOW 60.0 LPM Normal [facility] Comment on above: Order Comment: Pleas e obtain from distal port of CVCBedside RN to obtain sample Performed By: #### 2 4339-4 ####STEFANO TROY ([id number])[facility] ([facility] [place], [place])[address] [place] [phone] Glucose [Mass/Vol] 189 mg/dL High 74-99 [facility] Comment on above: Order Comment: Pleas e obtain from distal port of CVCBedside RN to obtain sample Performed By: #### 2 4339-4 ####STEFANO TROY ([id number])[facility] ([facility] [place], [place])[address] [place] [address] HCO3 (Bld) [Moles/Vol] 20.0 mmol/L Low 22.0-26.0 [facility] Comment on above: Order Comment: Pleas e obtain from distal port of CVCBedside RN to obtain sample Performed By: #### 2 4339-4 ####STEFANO TROY ([id number])[facility] ([facility] [place], [place])[address] [place] [address] Hematocrit Est (Bld) [Volume fraction] 31.0 % Low 36.0-46.0 [facility] Comment on above: Order Comment: Pleas e obtain from distal port of CVCBedside RN to obtain sample Performed By: #### 2 4339-4 ####STEFANO TROY ([id number])[facility] ([facility] [place], [place])[address] [place] [address] Hemoglobin (Bld) [Mass/Vol] 10.2 g/dL Low 12.0-16.0 [facility] Comment on above: Order Comment: Pleas e obtain from distal port of CVCBedside RN to obtain sample Performed By: #### 2 4339-4 ####STEFANO TROY ([id number])[facility] ([facility] [place], [place])[address] [place] [phone] Inhaled oxygen concentration 90 % Normal [facility] Comment on above: Order Comment: Pleas e obtain from distal port of CVCBedside RN to obtain sample Performed By: #### 2 4339-4 ####STEFANO TROY ([id number])[facility] ([facility] [place], [place])[address] [place] [phone] Oxygen (BldV) [Partial pressure] 30 mm Hg Low 35-45 [facility] Comment on above: Order Comment: Pleas e obtain from distal port of CVCBedside RN to obtain sample Performed By: #### 2 4339-4 ####STEFANO TROY ([id number])[facility] ([facility] [place], [place])[address] [place] [address] Oxygen saturation in Venous blood 50 % Normal 45-75 [facility] Comment on above: Order Comment: Pleas e obtain from distal port of CVCBedside RN to obtain sample Performed By: #### 2 4339-4 ####STEFANO TROY ([id number])[facility] ([facility] [place], [place])[address] [place] [address] Oxyhemoglobin (BldV) [Mass fraction] 49.5 % Normal 45.0-75.0 [facility] Comment on above: Order Comment: Pleas e obtain from distal port of CVCBedside RN to obtain sample Performed By: #### 2 4339-4 ####STEFANO TROY ([id number])[facility] ([facility] [place], [place])[address] [place] [address] pH (BldV) 7.39 [pH] Normal 7.33-7.43 [facility] Comment on above: Order Comment: Pleas e obtain from distal port of CVCBedside RN to obtain sample Performed By: #### 2 4339-4 ####STEFANO TROY ([id number])[facility] ([facility] [place], [place])[address] [place], [place] [address] Potassium (BldV) [Moles/Vol] 4.0 mmol/L Normal 3.5-5.3 [facility] Comment on above: Order Comment: Pleas e obtain from distal port of CVCBedside RN to obtain sample Performed By: #### 2 4339-4 ####STEFANO TROY ([id number])[facility] ([facility] [place], [place])[address] [place], [place] [address] Sodium (BldV) [Moles/Vol] 130 mmol/L Low 136-145 [facility] Comment on above: Order Comment: Pleas e obtain from distal port of CVCBedside RN to obtain sample Performed By: #### 2 4339-4 ####STEFANO TROY ([id number])[facility] ([facility] [place] [place])[address] [place], [place] [address] Glucose Test strip manual (B ld) [Mass/Vol]on 08-12-2024 Glucose [Mass/Vol] 151 mg/dL High 74 - 99 mg/dL [facility] Interpretation and review of laboratory results Abnormal [facility] Glucose [Mass/Vol] 151 mg/dL High 74-99 [facility] Comment on above: Performed By: #### 2 341-6 ####STEFANO TROY ([id number])[facility] ([facility] [place], [place])[address] [place] [address] Glucose [Mass/Vol] 193 mg/dL High 74 - 99 mg/dL [facility] Interpretation and review of laboratory results Abnormal [facility] Glucose [Mass/Vol] 193 mg/dL High 74-99 [facility] Comment on above: Performed By: #### 2 341-6 ####STEFANO TROY ([id number])[facility] ([facility] [place], [place])[address] [place] [address] Glucose [Mass/Vol] 178 mg/dL High 74 - 99 mg/dL [facility] Interpretation and review of laboratory results Abnormal [facility] Glucose [Mass/Vol] 178 mg/dL High 74-99 [facility] Comment on above: Performed By: #### 2 341-6 ####STEFANO TROY ([id number])[facility] ([facility] [place], [place])[address] [place] [address] Glucose [Mass/Vol] 130 mg/dL High 74 - 99 mg/dL [facility] Interpretation and review of laboratory results Abnormal [facility] Glucose [Mass/Vol] 130 mg/dL High 74-99 [facility] Comment on above: Performed By: #### 2 341-6 ####STEFANO TROY ([id number])[facility] ([facility] [place], [place])[address] [place], [place] [address] Hemoglobin and Hematocrit pa basil (Bld)on 08-12-2024 Hematocrit (Bld) [Volume fraction] 30.1 % Low 36.0 - 46.0 % [facility] Hemoglobin (Bld) [Mass/Vol] 10.3 g/dL Low 12.0 - 16.0 g/dL [facility] Interpretation and review of laboratory results Abnormal [facility] Hematocrit (Bld) [Volume fraction] 30.1 % Low 36.0-46.0 [facility] Comment on above: Performed By: #### 2 4360-0 ####STEFANO TROY ([id number])[facility] ([facility] [place], [place])[address] [place] [address] Hemoglobin (Bld) [Mass/Vol] 10.3 g/dL Low 12.0-16.0 [facility] Comment on above: Performed By: #### 2 4360-0 ####STEFANO TROY ([id number])[facility] ([facility] [place] [place])[address] [place] [address] Laboratory - Chemistry and C hemistry - challengeon 08-12-2024 Lactate (BldV) [Moles/Vol] 2.3 mmol/L High 0.4 - 2.0 mmol/L [facility] Legionella sp Agon Legionella sp Ag Ql (U) Negative Normal Negative U [facility] Comment on above: Performed By: #### 3 2781-7 ####ZABRINA Villalba ([id number])[facility] ([facility])[address] [place] [address] Magnesiumon 08-12-2024 Magnesium [Mass/Vol] 2.9 mg/dL High 1.60 - 2.40 mg/dL [facility] Magnesium [Mass/Vol] 2.90 mg/dL High 1.60-2.40 [facility] Comment on above: Performed By: #### 1 9123-9 ####STEFANO TROY ([id number])[facility] ([facility] [place], [place])[address] [place], [place] [address] Magnesium [Mass/Vol] 1.87 mg/dL 1.60 - 2.40 mg/dL [facility] Magnesium [Mass/Vol] 1.87 mg/dL Normal 1.60-2.40 [facility] Comment on above: Performed By: #### 1 9123-9 ####STEFANO TROY ([id number])[facility] ([facility] [place] [place])[address] [place] [phone] Magnesium [Mass/Vol]on 08-12 Interpretation and review of laboratory results Normal [facility] No Panel Informationon 08-12 [facility] Interpretation and review of laboratory results Abnormal [facility] Interpretation and review of laboratory results Abnormal [facility] Blood Expiration Date 08/13/2024 11:59:00 PM EST [facility] PRODUCT BLOOD TYPE [address] [facility] PRODUCT CODE [id number] [facility] Unit ABO O [facility] Unit RH Negative [facility] UNIT VOLUME 350 [facility] XM INTEP COMP [facility] Dispense Status PT [facility] PRODUCT BLOOD TYPE [address] [facility] PRODUCT CODE [id number] [facility] ABO O [facility] RH Positive [facility] PT and aPTT panel Coag (PPP) on 08-12-2024 aPTT Coag (PPP) [Time] 31 s Un [facility] INR Coag (PPP) [Relative time] 1.5 {INR} High 0.9 - 1.1 [facility] Interpretation and review of laboratory results Abnormal [facility] PT Coag (PPP) [Time] 17 s High [facility] aPTT Coag (PPP) [Time] 31 s Normal 27-[address] [facility] Comment on above: Order Comment: The A PTT is no longer used for monitoring Unfractionated Heparin Therapy. For monitoring Heparin Therapy, use the Heparin Assay. Performed By: #### 3 4529-8 ####STEFANO TROY ([id number])[facility] ([facility] [place] [place])[address] [place] [phone] INR Coag (PPP) [Relative time] 1.5 High 0.9-1.1 [facility] Comment on above: Order Comment: The A PTT is no longer used for monitoring Unfractionated Heparin Therapy. For monitoring Heparin Therapy, use the Heparin Assay. Performed By: #### 3 4529-8 ####STEFANO TROY ([id number])[facility] ([facility] [place] [place])[address] [place] [address] PT Coag (PPP) [Time] 17.0 s High 9.8-12.8 [facility] Comment on above: Order Comment: The A PTT is no longer used for monitoring Unfractionated Heparin Therapy. For monitoring Heparin Therapy, use the Heparin Assay. Performed By: #### 3 4529-8 ####STEFANO TROY ([id number])[facility] ([facility] [place] [place])[address] [place] [address] Prepare Cryoprecipitated AHF (Pooled Units): 2 Poolson 08-12-2024 Blood Expiration Date 08/10/2024 10:12:00 PM [facility] Blood Expiration Date 08/10/2024 10:26:00 PM [facility] Unit Number [id number] [facility] Unit Number [id number] [facility] UNIT VOLUME 82 [facility] UNIT VOLUME 103 [facility] Prepare RBC: 1 Unitson 08-12 Blood Expiration Date 08/28/2024 11:59:0 0 PM [facility] Dispense Status RE [facility] PRODUCT BLOOD TYPE [address] [facility] PRODUCT CODE [id number] [facility] [facility] ABO O [facility] Number [id number] [facility] RH Positive [facility] VOLUME 350 [facility] XM INTEP COMP [facility] Prepare RBC: 2 Unitson 08-12 Dispense Status RE [facility] Dispense Status TR [facility] Unit Number [id number] [facility] Unit Number [id number] [facility] Renal function 2000 panelon 08-12-2024 Albumin BCP dye [Mass/Vol] 3.4 g/dL 3.4 - 5.0 g/dL [facility] Anion gap [Moles/Vol] 13 mmol/L 10 - 2 0 mmol/L [facility] Calcium [Mass/Vol] 7.9 mg/dL Low 8.6 - 10. 3 mg/dL [facility] Chloride [Moles/Vol] 102 mmol/L 98 - 10 7 mmol/L [facility] CO2 [Moles/Vol] 21 mmol/L 21 - 32 mmol/L [facility] Creatinine [Mass/Vol] 0.92 mg/dL 0.50 - 1.05 mg/dL [facility] GFR/1.73 sq M.predicted among non-blacks MDRD (S/P/Bld) [Vol rate/Area] 65 mL/min/{1.73_m2} - PINF [facility] Glucose [Mass/Vol] 180 mg/dL High 74 - 99 mg/dL [facility] Phosphate [Mass/Vol] 2.9 mg/dL 2.5 - 4 .9 mg/dL [facility] Potassium [Moles/Vol] 4 mmol/L 3.5 - 5.3 mmol/L [facility] Sodium [Moles/Vol] 132 mmol/L Low 136 - 145 mmol/L [facility] Urea nitrogen [Mass/Vol] 34 mg/dL High 6 - 23 mg/d L [facility] Albumin BCP dye [Mass/Vol] 3.4 g/dL Normal 3.4-5.0 [facility] Comment on above: Performed By: #### 2 4362-6 ####STEFANO TROY ([id number])[facility] ([facility] [place] [place])[address] [place] [address] Anion gap [Moles/Vol] 13 mmol/L Normal 10-20 [facility] Comment on above: Performed By: #### 2 4362-6 ####STEFANO TROY ([id number])[facility] ([facility] [place] [place])[address] [place] [address] Calcium [Mass/Vol] 7.9 mg/dL Low 8.6-10.3 [facility] Comment on above: Performed By: #### 2 4362-6 ####STEFANO TROY ([id number])[facility] ([facility] [place] [place])[address] [place] [address] Chloride [Moles/Vol] 102 mmol/L Normal 98-107 [facility] Comment on above: Performed By: #### 2 4362-6 ####STEFANO TROY ([id number])[facility] ([facility] [place] [place])[address] [place] [address] CO2 [Moles/Vol] 21 mmol/L Normal 21-32 [facility] Comment on above: Performed By: #### 2 4362-6 ####STEFANO TROY ([id number])[facility] ([facility] [place] [place])[address] [place] [address] Creatinine [Mass/Vol] 0.92 mg/dL Normal 0.50-1.05 [facility] Comment on above: Performed By: #### 2 436-6 ####STEFANO TROY ([id number])[facility] ([facility] [place] [place])[address] [place] [address] Glomerular filtration rate/1.73 sq M.predicted 65 mL/min/1.73m*2 Normal >60 [facility] Comment on above: Result Comment: Calc ulations of estimated GFR are performed using the 2020 CKD-EPI Study Refit equation without the race variable for the IDMS-Traceable creatinine methods.https://jasn.asnjournals.org/content/early /ASN.7840408167 Performed By: #### 2 4362-6 ####STEFANO TROY ([id number])[facility] ([facility] [place] [place])[address] [place] [address] Glucose [Mass/Vol] 180 mg/dL High 74-99 [facility] Comment on above: Performed By: #### 2 4362-6 ####STEFANO TROY ([id number])[facility] ([facility] [place] [place])[address] [place] [address] Phosphate [Mass/Vol] 2.9 mg/dL Normal 2.5-4.9 [facility] Comment on above: Result Comment: The performance characteristics of phosphorus testing in heparinized plasma have been validated by the individual laboratory site where testing is performed. Testing on heparinized plasma is not approved by the FDA; however, such approval is not necessary. Performed By: #### 2 4362-6 ####STEFANO TROY ([id number])[facility] ([facility] [place] [place])[address] [place] [address] Potassium [Moles/Vol] 4.0 mmol/L Normal 3.5-5.3 [facility] Comment on above: Performed By: #### 2 4362-6 ####STEFANO TROY ([id number])[facility] ([facility] [place] [place])[address] [place] [address] Sodium [Moles/Vol] 132 mmol/L Low 136-145 [facility] Comment on above: Performed By: #### 2 4362-6 ####STEFANO TROY ([id number])[facility] ([facility] [place] [place])[address] [place] [address] Urea nitrogen [Mass/Vol] 34 mg/dL High 6-23 [facility] Comment on above: Performed By: #### 2 4362-6 ####STEFANO TROY ([id number])[facility] ([facility] [place] [place])[address] [place] [address] Albumin BCP dye [Mass/Vol] 3.4 g/dL 3.4 - 5.0 g/dL [facility] Anion gap [Moles/Vol] 10 mmol/L 10 - 2 0 mmol/L [facility] Calcium [Mass/Vol] 8.2 mg/dL Low 8.6 - 10. 3 mg/dL [facility] Chloride [Moles/Vol] 105 mmol/L 98 - 10 7 mmol/L [facility] CO2 [Moles/Vol] 25 mmol/L 21 - 32 mmol/L [facility] Creatinine [Mass/Vol] 0.64 mg/dL 0.50 - 1.05 mg/dL [facility] eGFR - PINF [facility] Glucose [Mass/Vol] 127 mg/dL High 74 - 99 mg/dL [facility] Interpretation and review of laboratory results Abnormal [facility] Phosphate [Mass/Vol] 2 mg/dL Low 2.5 - 4 .9 mg/dL [facility] Potassium [Moles/Vol] 4.2 mmol/L 3.5 - 5.3 mmol/L [facility] Sodium [Moles/Vol] 136 mmol/L 136 - 145 mmol/L [facility] Urea nitrogen [Mass/Vol] 29 mg/dL High 6 - 23 mg/d L [facility] Albumin BCP dye [Mass/Vol] 3.4 g/dL Normal 3.4-5.0 [facility] Comment on above: Performed By: #### 2 4362-6 ####STEFANO TROY ([id number])[facility] ([facility] [place] [place])[address] [place] [address] Anion gap [Moles/Vol] 10 mmol/L Normal 10-20 [facility] Comment on above: Performed By: #### 2 4362-6 ####STEFANO TROY ([id number])[facility] ([facility] [place] [place])[address] [place] [address] Calcium [Mass/Vol] 8.2 mg/dL Low 8.6-10.3 [facility] Comment on above: Performed By: #### 2 4362-6 ####STEFANO TROY ([id number])[facility] ([facility] [place] [place])[address] [place] [address] Chloride [Moles/Vol] 105 mmol/L Normal 98-107 [facility] Comment on above: Performed By: #### 2 4362-6 ####STEFANO TROY ([id number])[facility] ([facility] [place] [place])[address] [place] [address] CO2 [Moles/Vol] 25 mmol/L Normal 21-32 [facility] Comment on above: Performed By: #### 2 4362-6 ####STEFANO TROY ([id number])[facility] ([facility] [place] [place])[address] [place] [address] Creatinine [Mass/Vol] 0.64 mg/dL Normal 0.50-1.05 [facility] Comment on above: Performed By: #### 2 4362-6 ####STEFANO TROY ([id number])[facility] ([facility] [place] [place])[address] [place] [address] GFR/1.73 sq M.predicted MDRD (S/P/Bld) [Vol rate/Area] mL/min/{1.73_m2} Normal >60 [facility] Comment on above: Result Comment: Calc ulations of estimated GFR are performed using the 2020 CKD-EPI Study Refit equation without the race variable for the IDMS-Traceable creatinine methods.https://jasn.asnjournals.org/content/early/ /ASN.9482382316 Performed By: #### 2 4362-6 ####STEFANO TROY ([id number])[facility] ([facility] [place] [place])[address] [place] [address] Glucose [Mass/Vol] 127 mg/dL High 74-99 [facility] Comment on above: Performed By: #### 2 4362-6 ####STEFANO TROY ([id number])[facility] ([facility] [place] [place])[address] [place] [address] Phosphate [Mass/Vol] 2.0 mg/dL Low 2.5-4.9 [facility] Comment on above: Result Comment: The performance characteristics of phosphorus testing in heparinized plasma have been validated by the individual laboratory site where testing is performed. Testing on heparinized plasma is not approved by the FDA; however, such approval is not necessary. Performed By: #### 2 4362-6 ####STEFANO TROY ([id number])[facility] ([facility] [place] [place])[address] [place] [address] Potassium [Moles/Vol] 4.2 mmol/L Normal 3.5-5.3 [facility] Comment on above: Performed By: #### 2 4362-6 ####STEFANO TROY ([id number])[facility] ([facility] [place] [place])[address] [place] [address] Sodium [Moles/Vol] 136 mmol/L Normal 136-145 [facility] Comment on above: Performed By: #### 2 4362-6 ####STEFANO TROY ([id number])[facility] ([facility] [place] [place])[address] [place] [address] Urea nitrogen [Mass/Vol] 29 mg/dL High 6-23 [facility] Comment on above: Performed By: #### 2 4362-6 ####STEFANO TROY ([id number])[facility] ([facility] [place] [place])[address] [place] [address] Streptococcus pneumoniae Ago n 08-12-2024 S. pneumoniae Ag Ql (U) Negative Normal Negative U [facility] Comment on above: Performed By: #### 2 4027-5 ####ZABRINA Villalba ([id number])[facility] ([facility])[address] [place], [place] [address] TRANSTHORACIC ECHO (TTE) [place] ITEDon 08-12-2024 TRANSTHORACIC ECHO (TTE) LIMITED Normal [facility] US Heart Transthoracicon LV A4C EF 57.7 [facility] Work Phone: LV EF 49 % [facility] Work Phone: Tricuspid annular plane systolic excursion 2.1 cm [facility] Phone: SYNGO [facility] Work Phone: [facility] Work Phone: Urinalysis complete panel (U )on 08-12-2024 Appearance (U) Turbid Abnormal Clear [facility] Bilirubin (U) [Mass/Vol] Negative NEGATIVE [facility] Color (U) Light-Yellow Light-Yellow , Yellow, Dark-Yellow [facility] Glucose Auto test strip (U) [Mass/Vol] Normal Normal mg/dL [facility] Interpretation and review of laboratory results Abnormal [facility] Ketones (U) [Mass/Vol] Negative NEGAT ELLEN mg/dL [facility] Leukocyte esterase Auto test strip Ql (U) Negative NEGATIVE [facility] Nitrite Auto test strip Ql (U) Negative NEGATIVE [facility] pH (U) 5 [pH] 5.0, 5.5, 6.0, 6.5, 7.0, 7.5, 8.0 [facility] Protein (U) [Mass/Vol] 20 (TRACE) NEGAT ELLEN, 10 (TRACE), 20 (TRACE) mg/dL [facility] RBC (U) [#/Vol] 0.2 (2+) Abnormal NEGATIVE [facility] Specific gravity (U) [Rel density] 1.021 1.005 - 1.035 [facility] Urobilinogen (U) [Mass/Vol] Normal Normal mg/dL [facility] Appearance (U) Turbid Normal Clear [facility] Comment on above: Performed By: #### 2 4356-8 ####STEFANO TROY ([id number])[facility] ([facility] [place] [place])[address] [place] [address] Bilirubin (U) [Mass/Vol] Negative Normal NEGATIVE [facility] Comment on above: Performed By: #### Ramirez 4356-8 ####STEFANO TROY ([id number])[facility] ([facility] [place] [place])[address] [place] [address] Color (U) Light-Yellow Normal Light-Yellow , Yellow, Dark-Yellow [facility] Comment on above: Performed By: #### 2 4356-8 ####STEFANO TROY ([id number])[facility] ([facility] [place] [place])[address] [place] [address] Glucose Auto test strip (U) [Mass/Vol] Normal Normal Normal [facility] Comment on above: Performed By: #### 2 4356-8 ####STEFANO TROY ([id number])[facility] ([facility] [place] [place])[address] [place] [address] Ketones (U) [Mass/Vol] Negative Normal NEGATIVE [facility] Comment on above: Performed By: #### 2 4356-8 ####STEFANO TROY ([id number])[facility] ([facility] [place] [place])[address] [place] [address] Leukocyte esterase Auto test strip Ql (U) Negative Normal NEGATIVE [facility] Comment on above: Performed By: #### 2 4356-8 ####STEFANO TROY ([id number])[facility] ([facility] [place] [place])[address] [place] [address] Nitrite Auto test strip Ql (U) Negative Normal NEGATIVE [facility] Comment on above: Performed By: #### 2 435-8 ####STEFANO TROY ([id number])[facility] ([facility] [place] [place])[address] [place] [address] pH (U) 5.0 [pH] Normal 5.0, 5.5, 6.0, 6.5, 7.0, 7.5, 8.0 [facility] Comment on above: Performed By: #### 2 4356-8 ####STEFANO TROY ([id number])[facility] ([facility] [place] [place])[address] [place] [address] Protein (U) [Mass/Vol] 20 (TRACE) Normal NEGAT ELLEN, 10 (TRACE), 20 (TRACE) [facility] Comment on above: Performed By: #### 2 4356-8 ####STEFANO TROY ([id number])[facility] ([facility] [place] [place])[address] [place] [address] RBC (U) [#/Vol] 0.2 (2+) Abnormal NEGATIVE [facility] Comment on above: Performed By: #### 2 4356-8 ####STEFANO TROY ([id number])[facility] ([facility] [place] [place])[address] [place] [address] Specific gravity (U) [Rel density] 1.021 Normal 1.005-1.035 [facility] Comment on above: Performed By: #### 2 4356-8 ####STEFANO TROY ([id number])[facility] ([facility] [place] [place])[address] [place] [address] Urobilinogen (U) [Mass/Vol] Normal Normal Normal [facility] Comment on above: Performed By: #### 2 4356-8 ####STEFANO TROY ([id number])[facility] ([facility] [place] [place])[address] [place] [address] Urinalysis microscopic panel Auto Ql (U)on 08-12-2024 Mucus Auto (Urine sed) [#/Area] FEW Reference range not established. /LPF [facility] RBC Auto (Urine sed) [#/Area] 1-2 NONE, 1-2, 3-5 /HPF [facility] WBC Auto (Urine sed) [#/Area] 1-5 1-5, NONE /HPF [facility] Mucus Auto (Urine sed) [#/Area] FEW Normal Reference range not established. [facility] Comment on above: Performed By: #### 5 3315-8 ####STEFANO TROY ([id number])[facility] ([facility] [place] [place])[address] [place] [address] RBC Auto (Urine sed) [#/Area] 1-2 Normal NONE, 1-2, 3-5 [facility] Comment on above: Performed By: #### 5 3315-8 ####STEFANO TROY ([id number])[facility] ([facility] [place] [place])[address] [place] [address] WBC Auto (Urine sed) [#/Area] 1-5 Normal 1-5, NONE [facility] Comment on above: Performed By: #### 5 2465-8 ####STEFANO TROY ([id number])[facility] ([facility] [place] [place])[address] [place], [place] [address] XR CHEST 1 VIEWon 08-12-2024 XR CHEST 1 VIEW Normal [facility] XR CHEST 1 VIEW Normal [facility] XR Chest Single viewon 08-12 [facility] MM[facility]AL [facility] MM[facility]AL [facility] Work Phone: Radiology Study observation (narrative) [facility] Work Phone: [facility] MMODAL [facility] MMODAL [facility] Work Phone: [facility] Work Phone: Radiology Study observation (narrative) [facility] Work Phone: XR Chest Single viewOrdered By: Lenard Munguia on 08-12-2024 [facility] Work Phone: CBC panel Auto (Bld)on 08-11 Erythrocyte distribution width (RBC) [Ratio] 13.4 % Normal 11.5-14.5 [facility] Comment on above: Performed By: #### 5 8410-2 ####STEFANO TROY ([id number])[facility] ([facility] [place] [place])[address] [place] [address] Hematocrit (Bld) [Volume fraction] 23.6 % Low 36.0-46.0 [facility] Comment on above: Performed By: #### 5 8410-2 ####STEFANO TROY ([id number])[facility] ([facility] [place] [place])[address] [place] [address] Hemoglobin (Bld) [Mass/Vol] 7.6 g/dL Low 12.0-16.0 [facility] Comment on above: Performed By: #### 5 8410-2 ####STEFANO TROY ([id number])[facility] ([facility] [place] [place])[address] [place] [phone] MCH (RBC) [Entitic mass] 29.9 pg Normal 26.0-34.0 [facility] Comment on above: Performed By: #### 5 8410-2 ####STEFANO TROY ([id number])[facility] ([facility] [place] [place])[address] [place] [phone] MCHC (RBC) [Mass/Vol] 32.2 g/dL Normal 32.0-36.0 [facility] Comment on above: Performed By: #### 5 8410-2 ####STEFANO TROY ([id number])[facility] ([facility] [place] [place])[address] [place] [phone] MCV (RBC) [Entitic vol] 93 fL Normal 80-100 U [facility] Comment on above: Performed By: #### 5 8410-2 ####STEFANO TROY ([id number])[facility] ([facility] [place] [place])[address] [place] [address] Nucleated RBC/100 WBC (Bld) [Ratio] 0.0 /100 WBCs Normal 0.0-0.0 [facility] Comment on above: Performed By: #### 5 8410-2 ####STEFANO TROY ([id number])[facility] ([facility] [place] [place])[address] [place] [address] Platelets (Bld) [#/Vol] 230 x10*3/uL Normal 150-450 [facility] Comment on above: Performed By: #### 5 8410-2 ####STEFANO TROY ([id number])[facility] ([facility] [place] [place])[address] [place] [address] RBC (Bld) [#/Vol] 2.54 x10*6/uL Low 4.00-5.20 [facility] Comment on above: Performed By: #### 5 8410-2 ####STEFANO TROY ([id number])[facility] ([facility] [place] [place])[address] [place] [address] WBC (Bld) [#/Vol] 9.5 x10*3/uL Normal 4.4-11.3 [facility] Comment on above: Performed By: #### 5 8410-2 ####STEFANO TROY ([id number])[facility] ([facility] [place] [place])[address] [place] [address] Coagulation factor VIII acti vity actual/Normalon 08-11-2024 Coagulation factor VIII activity actual/normal Coag (PPP) [Relative time] 108 % Normal 55-180 [facility] Comment on above: Performed By: #### 3 209-4 ####ZABRINA Villalba ([id number])[facility] ([facility])[address] [place] [address] Gas panel (BldV)on 4 Anion gap 4 (BldV) [Moles/Vol] 10 mmol/L 10.0 - 25.0 mmol/L [facility] Base excess Calc (BldV) [Moles/Vol] -0.4000 mmol/L -2.0 - 3.0 mmol/L [facility] Calcium.ionized (BldV) [Moles/Vol] 1.21 mmol/L 1.10 - 1.33 mmol/L [facility] Chloride (BldV) [Moles/Vol] 104 mmol/L 98 - 107 mmol/L [facility] CO2 (BldV) [Partial pressure] 38 mm[Hg] Low [facility] Glucose [Mass/Vol] 172 mg/dL High 74 - 99 mg/dL [facility] HCO3 (Bld) [Moles/Vol] 24.1 mmol/L 22.0 - 26.0 mmol/L [facility] Hematocrit Est (Bld) [Volume fraction] 29 % Low 36.0 - 46.0 % [facility] Hemoglobin (Bld) [Mass/Vol] 9.6 g/dL Low 12.0 - 16.0 g/dL [facility] Inhaled oxygen concentration 28 % [facility] Interpretation and review of laboratory results Abnormal [facility] Lactate (BldV) [Moles/Vol] 2.7 mmol/L High 0.4 - 2.0 mmol/L [facility] Oxygen (BldV) [Partial pressure] 36 mm[Hg] [facility] Oxygen saturation in Venous blood 58 % 45 - 75 % [facility] Oxyhemoglobin (BldV) [Mass fraction] 57.2 % 45.0 - 75.0 % [facility] pH (BldV) 7.41 [pH] 7.33 - 7.43 pH [facility] Potassium (BldV) [Moles/Vol] 4.2 mmol/L 3.5 - 5.3 mmol/L [facility] Sodium (BldV) [Moles/Vol] 134 mmol/L Low 136 - 145 mmol/L [facility] Anion gap 4 (BldV) [Moles/Vol] 10.0 mmol/L Normal 10.0-25.0 [facility] Comment on above: Order Comment: Place draw from CVP port Performed By: #### 2 4339-4 ####STEFANO TROY ([id number])[facility] ([facility] [place] [place])[address] [place] [address] Base excess Calc (BldV) [Moles/Vol] -0.4000 mmol/L Normal -2.0-3.0 [facility] Comment on above: Order Comment: Place draw from CVP port Performed By: #### 2 4339-4 ####STEFANO TROY ([id number])[facility] ([facility] [place] [place])[address] [place] [address] Calcium.ionized (BldV) [Moles/Vol] 1.21 mmol/L Normal 1.10-1.33 [facility] Comment on above: Order Comment: Place draw from CVP port Performed By: #### 2 4339-4 ####STEFANO TROY ([id number])[facility] ([facility] [place] [place])[address] [place], [place] [address] Chloride (BldV) [Moles/Vol] 104 mmol/L Normal 98-107 [facility] Comment on above: Order Comment: Place draw from CVP port Performed By: #### 2 4339-4 ####STEFANO TROY ([id number])[facility] ([facility] [place] [place])[address] [place] [address] CO2 (BldV) [Partial pressure] 38 mm Hg Low 41-51 [facility] Comment on above: Order Comment: Place draw from CVP port Performed By: #### 2 4339-4 ####STEFANO TROY ([id number])[facility] ([facility] [place] [place])[address] [place] [address] Glucose [Mass/Vol] 172 mg/dL High 74-99 [facility] Comment on above: Order Comment: Place draw from CVP port Performed By: #### 2 4339-4 ####STEFANO TROY ([id number])[facility] ([facility] [place] [place])[address] [place] [address] HCO3 (Bld) [Moles/Vol] 24.1 mmol/L Normal 22.0-26.0 [facility] Comment on above: Order Comment: Place draw from CVP port Performed By: #### 2 4339-4 ####STEFANO TROY ([id number])[facility] [facility] [place], [place])[address] [place] [address] Hematocrit Est (Bld) [Volume fraction] 29.0 % Low 36.0-46.0 [facility] Comment on above: Order Comment: Place draw from CVP port Performed By: #### 2 4339-4 ####STEFANO TROY ([id number])[facility] ([facility] [place], [place])[address] [place] [id number] Hemoglobin (Bld) [Mass/Vol] 9.6 g/dL Low 12.0-16.0 [facility] Comment on above: Order Comment: Place draw from CVP port Performed By: #### 2 4339-4 ####STEFANO TROY ([id number])[facility] ([facility] [place], [place])[address] [place] [phone] Inhaled oxygen concentration 28 % Normal [facility] Comment on above: Order Comment: Place draw from CVP port Result Comment: 1L N C Performed By: #### 2 4339-4 ####STEFANO TROY ([id number])[facility] ([facility] [place], [place])[address] [place] [address] Lactate (BldV) [Moles/Vol] 2.7 mmol/L High 0.4-2.0 [facility] Comment on above: Order Comment: Place draw from CVP port Performed By: #### 2 4339-4 ####STEFANO TROY ([id number])[facility] ([facility] [place], [place])[address] [place] [address] Oxygen (BldV) [Partial pressure] 36 mm Hg Normal 35-45 [facility] Comment on above: Order Comment: Place draw from CVP port Performed By: #### 2 4339-4 ####STEFANO TROY ([id number])[facility] ([facility] [place], [place])[address] [place] [phone] Oxygen saturation in Venous blood 58 % Normal 45-75 [facility] Comment on above: Order Comment: Place draw from CVP port Performed By: #### 2 4339-4 ####STEFANO TROY ([id number])[facility] ([facility] [place], [place])[address] [place] [address] Oxyhemoglobin (BldV) [Mass fraction] 57.2 % Normal 45.0-75.0 [facility] Comment on above: Order Comment: Place draw from CVP port Performed By: #### 2 4339-4 ####STEFANO TROY ([id number])[facility] ([facility] [place], [place])[address] [place] [address] pH (BldV) 7.41 [pH] Normal 7.33-7.43 [facility] Comment on above: Order Comment: Place draw from CVP port Performed By: #### 2 4339-4 ####STEFANO TROY ([id number])[facility] ([facility] [place], [place])[address] [place] [address] Potassium (BldV) [Moles/Vol] 4.2 mmol/L Normal 3.5-5.3 [facility] Comment on above: Order Comment: Place draw from CVP port Performed By: #### 2 4339-4 ####STEFANO TROY ([id number])[facility] ([facility] [place], [place])[address] [place] [address] Sodium (BldV) [Moles/Vol] 134 mmol/L Low 136-145 [facility] Comment on above: Order Comment: Place draw from CVP port Performed By: #### 2 4339-4 ####STEFANO TROY ([id number])[facility] ([facility] [place], [place])[address] [place] [address] Glucose Test strip manual (B ld) [Mass/Vol]on 08-11-2024 Glucose [Mass/Vol] 123 mg/dL High 74 - 99 mg/dL [facility] Interpretation and review of laboratory results Abnormal [facility] Glucose [Mass/Vol] 123 mg/dL High 74-99 [facility] Comment on above: Performed By: #### 2 341-6 ####STEFANO TROY ([id number])[facility] ([facility] [place], [place])[address] [place] [address] Glucose [Mass/Vol] 155 mg/dL High 74 - 99 mg/dL [facility] Interpretation and review of laboratory results Abnormal [facility] Glucose [Mass/Vol] 155 mg/dL High 74-99 [facility] Comment on above: Performed By: #### 2 341-6 ####STEFANO TROY ([id number])[facility] ([facility] [place], [place])[address] [place] [address] Glucose [Mass/Vol] 151 mg/dL High 74 - 99 mg/dL [facility] Interpretation and review of laboratory results Abnormal [facility] Glucose [Mass/Vol] 151 mg/dL High 74-99 [facility] Comment on above: Performed By: #### 2 341-6 ####STEFANO TROY ([id number])[facility] ([facility] [place], [place])[address] [place] [phone] Glucose [Mass/Vol] 158 mg/dL High 74 - 99 mg/dL [facility] Interpretation and review of laboratory results Abnormal [facility] Glucose [Mass/Vol] 158 mg/dL High 74-99 [facility] Comment on above: Performed By: #### 2 341-6 ####STEFANO TROY ([id number])[facility] ([facility] [place], [place])[address] [place] [phone] Magnesiumon 08-11-2024 Magnesium [Mass/Vol] 2.16 mg/dL Normal 1.60-2.40 [facility] Comment on above: Performed By: #### 1 9123-9 ####STEFANO TROY ([id number])[facility] ([facility] [place], [place])[address] [place] [address] Renal function 2000 panelon 08-11-2024 Anion gap [Moles/Vol] 12 mmol/L 10 - 2 0 mmol/L [facility] Albumin BCP dye [Mass/Vol] 3.6 g/dL Normal 3.4-5.0 [facility] Comment on above: Performed By: #### 2 4362-6 ####STEFANO TROY ([id number])[facility] ([facility] [place], [place])[address] [place] [address] Anion gap [Moles/Vol] 12 mmol/L Normal 10-20 [facility] Comment on above: Performed By: #### 2 4362-6 ####STEFANO TROY ([id number])[facility] ([facility] [place], [place])[address] [place] [address] Calcium [Mass/Vol] 7.7 mg/dL Low 8.6-10.3 [facility] Comment on above: Performed By: #### 2 4362-6 ####STEFANO TROY ([id number])[facility] ([facility] [place], [place])[address] [place] [address] Chloride [Moles/Vol] 107 mmol/L Normal 98-107 [facility] Comment on above: Performed By: #### 2 4362-6 ####STEFANO RTOY ([id number])[facility] ([facility] [place], [place])[address] [place] [address] CO2 [Moles/Vol] 22 mmol/L Normal 21-32 [facility] Comment on above: Performed By: #### 2 4362-6 ####STEFANO TROY ([id number])[facility] ([facility] [place], [place])[address] [place] [address] Creatinine [Mass/Vol] 0.76 mg/dL Normal 0.50-1.05 [facility] Comment on above: Performed By: #### 2 4362-6 ####STEFANO TROY ([id number])[facility] ([facility] [place], [place])[address] [place] [address] Glomerular filtration rate/1.73 sq M.predicted 82 mL/min/1.73m*2 Normal >60 [facility] Comment on above: Result Comment: Calc ulations of estimated GFR are performed using the 2020 CKD-EPI Study Refit equation without the race variable for the IDMS-Traceable creatinine methods.https://jasn.asnjournals.org/content/ /ASN.5914327403 Performed By: #### 2 4362-6 ####STEFANO TROY ([id number])[facility] ([facility] [place], [place])[address] [place] [address] Glucose [Mass/Vol] 187 mg/dL High 74-99 [facility] Comment on above: Performed By: #### 2 4362-6 ####STEFANO TROY ([id number])[facility] ([facility] [place], [place])[address] [place] [address] Phosphate [Mass/Vol] 3.3 mg/dL Normal 2.5-4.9 [facility] Comment on above: Result Comment: The performance characteristics of phosphorus testing in heparinized plasma have been validated by the individual laboratory site where testing is performed. Testing on heparinized plasma is not approved by the FDA; however, such approval is not necessary. Performed By: #### 2 4362-6 ####STEFANO TROY ([id number])[facility] ([facility] [place], [place])[address] [place] [address] Potassium [Moles/Vol] 4.1 mmol/L Normal 3.5-5.3 [facility] Comment on above: Performed By: #### 2 4362-6 ####STEFANO TROY ([id number])[facility] ([facility] [place], [place])[address] [place] [address] Sodium [Moles/Vol] 137 mmol/L Normal 136-145 [facility] Comment on above: Performed By: #### 2 4362-6 ####STEFANO TROY ([id number])[facility] ([facility] [place], [place])[address] [place] [address] Urea nitrogen [Mass/Vol] 24 mg/dL High 6-23 [facility] Comment on above: Performed By: #### 2 4362-6 ####STEFANO TROY ([id number])[facility] ([facility] [place], [place])[address] [place] [address] XR Chest Single viewon 08-11 [facility] MM[facility]AL [facility] MM[facility]AL [facility] Work Phone: XR Chest Single viewOrdered By: Rob Hussein on 08-11-2024 [facility] Work Phone: ANESTHESIA INTRAOPERATIVE TE Tanner 08-10-2024 ANESTHESIA INTRAOPERATIVE ANASTASIA Normal [facility] Activated clotting timeon ACT Coag (Bld) 115 s Normal [address] [place] [address] Comment on above: Result Comment: Targ et ACT range will vary based on the patient population, clinical status, and surgical intervention occurring. Performed By: #### 3 184-9 ####STEFANO TROY ([id number])[facility] ([facility] [place], [place])[address] [place] [phone] ACT Coag (Bld) [address] Comment on above: Result Comment: Targ et ACT range will vary based on the patient population, clinical status, and surgical intervention occurring. Performed By: #### 3 184-9 ####STEFANO TROY ([id number])[facility] ([facility] [place], [place])[address] [place], [place] [id number] ACT Coag (Bld) [address] Comment on above: Result Comment: Targ et ACT range will vary based on the patient population, clinical status, and surgical intervention occurring. Performed By: #### 3 184-9 ####STEFANO TROY ([id number])[facility] ([facility] [place], [place])[address] [place] [address] ACT Coag (Bld) [address] Comment on above: Result Comment: Targ et ACT range will vary based on the patient population, clinical status, and surgical intervention occurring. Performed By: #### 3 184-9 ####STEFANO TROY ([id number])[facility] ([facility] [place], [place])[address] [place] [address] ACT Coag (Bld) [address] Comment on above: Result Comment: Targ et ACT range will vary based on the patient population, clinical status, and surgical intervention occurring. Performed By: #### 3 184-9 ####STEFANO TROY ([id number])[facility] ([facility] [place], [place])[address] [place] [address] ACT Coag (Bld) 579 s High 82-174 [facility] Comment on above: Result Comment: Targ et ACT range will vary based on the patient population, clinical status, and surgical intervention occurring. Performed By: #### 3 184-9 ####STEFANO TROY ([id number])[facility] ([facility] [place], [place])[address] [place] [address] ACT Coag (Bld) 93 s Normal 82-174 [facility] Comment on above: Result Comment: Targ et ACT range will vary based on the patient population, clinical status, and surgical intervention occurring. Performed By: #### 3 184-9 ####STEFANO TROY ([id number])[facility] ([facility] [place], [place])[address] [place] [address] Anesthesia Intraoperative Tr ansesophageal EchocardiogramOrdered By: Jah Olmedo on 08-10-2024 Aortic Valve Area by Continuity of Peak Velocity 1.41 cm2 [facility] Work Phone: 30 Aortic Valve Area by Continuity of VTI 1.28 cm2 [facility] Work Phone: 30 AV mn grad 3 mmHg [facility] Work Phone: 30 AV pk grad 6 mmHg [facility] Work Phone: 30 AV pk last 1.2 m/s [facility] Work Phone: 30 LV EF 58 % [facility] Work Phone: 30 LVOT diam 1.9 cm [facility] Work Phone: 30 RVSP 41.4 mmHg [facility] Work Phone: 30 [facility] Work Phone: 30 Anesthesia Intraoperative Tr ansesophageal Echocardiogramon 08-10-2024 [facility] - Dept of Anesthesiology [address] [place] [address] and TRANSESOPHAGEAL ECHOCARDIOGRAM REPORT Patient Name: KARLA EDWARD TRELL [place] Physician: [id number] Jah Olmedo DO Study Date: 08/10/2024 Ordering Provider: [id number] OLMEDO MRN/PID: [id number] Fellow: Nurse: Date of /Age: 3 1950 / 73 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: Gender assigned at F Additional Staff: : BSA / BMI: m2 / kg/m2 Study Type: ANESTHESIA INTRAOPERATIVE ANASTASIA Diagnosis/ICD: Aneurysm of the ascending aorta, without rupture-I71.21 CPT Code: ANASTASIA Complete-80806; Doppler Limited-56248; Color Doppler-89436 PHYSICIAN INTERPRETATION: Left Ventricle: The left ventricular [...] LV DIASTOLIC FUNCTION: Normal Ranges: PulmV Sys Last: 33.20 cm/s PulmV Diaz Last: 32.70 cm/s PulmV S/D Last: 1.00 PulmV A Revs Last: 18.80 cm/s PulmV A Revs Dur: 148.00 msec AORTIC VALVE: Normal Ranges: AoV Vmax: 1.20 m/s (<=1.7m/s) AoV Peak P.8 mmHg (<20mmHg) AoV Mean P.0 mmHg (1.7-11.5mmHg) LVOT Max Last: 0.60 m/s (<=1.1m/s) AoV VTI: 27.90 cm (18-25cm) LVOT VTI: 12.60 cm LVOT Diameter: 1.90 cm (1.8-2.4cm) AoV Area, VTI: 1.28 cm2 (2.5-5.5cm2) AoV Area,Vm (more content not included)... 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: Gender assigned at F Additional Staff: : BSA / BMI: m2 / kg/m2 Study Type: ANESTHESIA INTRAOPERATIVE ANASTASIA Diagnosis/ICD: Aneurysm of the ascending aorta, without rupture-I71.21 CPT Code: ANASTASIA Complete-33836; Doppler Limited-97682; Color Doppler-05315 PHYSICIAN INTERPRETATION: Left Ventricle: The left ventricular [...] LV DIASTOLIC FUNCTION: Normal Ranges: PulmV Sys Last: 33.20 cm/s PulmV Diaz Last: 32.70 cm/s PulmV S/D Last: 1.00 PulmV A Revs Last: 18.80 cm/s PulmV A Revs Dur: 148.00 msec AORTIC VALVE: Normal Ranges: AoV Vmax: 1.20 m/s (<=1.7m/s) AoV Peak P.8 mmHg (<20mmHg) AoV Mean P.0 mmHg (1.7-11.5mmHg) LVOT Max Last: 0.60 m/s (<=1.1m/s) AoV VTI: 27.90 cm (18-25cm) LVOT VTI: 12.60 cm LVOT Diameter: 1.90 cm (1.8-2.4cm) AoV Area, VTI: 1.28 cm2 (2.5-5.5cm2) AoV Area,Vmax: 1.41 cm2 (2.5-4.5cm2) AoV Dimensionless Index: 0.45 TRICUSPID VALVE/RVSP: Normal Ranges: Peak TR Velocity: 3.10 m/s RV Syst Pressure: 41 mmHg (< 30mmHg) Pulmonary Veins: PulmV A Revs Dur: 148.00 msec PulmV A Revs Last: 18.80 cm/s PulmV Diaz Last: 32.70 cm/s PulmV S/D Last: 1.00 PulmV Sys (more content not included)... [facility] Work Phone: CBC panel Auto (Bld)on 08-10 Erythrocyte distribution width (RBC) [Ratio] 13.1 % Normal 11.5-14.5 [facility] Comment on above: Performed By: #### 5 8410-2 ####STEFANO TROY ([id number])[facility] ([facility] [place], [place])[address] [place] [address] Hematocrit (Bld) [Volume fraction] 27.5 % Low 36.0-46.0 [facility] Comment on above: Performed By: ###Óscar 5 8410-2 ####STEFANO TROY ([id number])[facility] ([facility] [place], [place])[address] [place] [address] Hemoglobin (Bld) [Mass/Vol] 9.0 g/dL Low 12.0-16.0 [facility] Comment on above: Performed By: ##Emmanuelle 5 8410-2 ####STEFANO TROY ([id number])[facility] ([facility] [place], [place])[address] [place] [address] MCH (RBC) [Entitic mass] 30.7 pg Normal 26.0-34.0 [facility] Comment on above: Performed By: #### 5 8410-2 ####STEFANO TROY ([id number])[facility] ([facility] [place], [place])[address] [place] [address] MCHC (RBC) [Mass/Vol] 32.7 g/dL Normal 32.0-36.0 [facility] Comment on above: Performed By: #### 5 8410-2 ####STEFANO TROY ([id number])[facility] ([facility] [place], [place])[address] [place] [address] MCV (RBC) [Entitic vol] 94 fL Normal 80-100 [facility] Comment on above: Performed By: #### 5 8410-2 ####STEFANO TROY ([id number])[facility] ([facility] [place], [place])[address] [place] [address] Nucleated RBC/100 WBC (Bld) [Ratio] 0.0 /100 WBCs Normal 0.0-0.0 [facility] Comment on above: Performed By: #### 5 8410-2 ####STEFANO TROY ([id number])[facility] ([facility] [place], [place])[address] [place] [phone] Platelets (Bld) [#/Vol] 286 x10*3/uL Normal 150-450 [facility] Comment on above: Performed By: #### 5 8410-2 ####STEFANO TROY ([id number])[facility] ([facility] [place], [place])[address] [place] [phone] RBC (Bld) [#/Vol] 2.93 x10*6/uL Low 4.00-5.20 [facility] Comment on above: Performed By: #### 5 8410-2 ####STEFANO TROY ([id number])[facility] ([facility] [place], [place])[address] [place] [address] WBC (Bld) [#/Vol] 13.6 x10*3/uL High 4.4-11.3 [facility] Comment on above: Performed By: #### 5 8410-2 ####STEFANO TROY ([id number])[facility] ([facility] [place], [place])[address] [place] [address] Erythrocyte distribution width (RBC) [Ratio] 13.0 % Normal 11.5-14.5 [facility] Comment on above: Order Comment: On ad kareem to ICU Performed By: #### 5 8410-2 ####STEFANO TROY ([id number])[facility] ([facility] [place], [place])[address] [place] [address] Hematocrit (Bld) [Volume fraction] 27.5 % Low 36.0-46.0 [facility] Comment on above: Order Comment: On ad kareem to ICU Performed By: #### 5 8410-2 ####STEFANO TROY ([id number])[facility] ([facility] [place], [place])[address] [place] [address] Hemoglobin (Bld) [Mass/Vol] 9.1 g/dL Low 12.0-16.0 [facility] Comment on above: Order Comment: On ad kareem to ICU Performed By: #### 5 8410-2 ####STEFANO TROY ([id number])[facility] ([facility] [place], [place])[address] [place] [address] MCH (RBC) [Entitic mass] 29.7 pg Normal 26.0-34.0 [facility] Comment on above: Order Comment: On ad kareem to ICU Performed By: #### 5 8410-2 ####STEFANO TROY ([id number])[facility] ([facility] [place], [place])[address] [place] [address] MCHC (RBC) [Mass/Vol] 33.1 g/dL Normal 32.0-36.0 [facility] Comment on above: Order Comment: On ad kareem to ICU Performed By: #### 5 8410-2 ####STEFANO TROY ([id number])[facility] ([facility] [place], [place])[address] [place] [address] MCV (RBC) [Entitic vol] 90 fL Normal 80-100 [facility] Comment on above: Order Comment: On ad kareem to ICU Performed By: #### 5 8410-2 ####STEFANO TROY (35279)[facility] ([facility] [place], [place])[address] [place] [phone] Nucleated RBC/100 WBC (Bld) [Ratio] 0.0 /100 WBCs Normal 0.0-0.0 [facility] Comment on above: Order Comment: On ad kareem to ICU Performed By: #### 5 8410-2 ####STEFANO TROY ([id number])[facility] ([facility] [place] [place])[address] [place] [phone] Platelets (Bld) [#/Vol] 273 x10*3/uL Normal 150-450 [facility] Comment on above: Order Comment: On ad kareem to ICU Performed By: #### 5 8410-2 ####STFEANO TROY ([id number])[facility] ([facility] [place], [place])[address] [place] [address] RBC (Bld) [#/Vol] 3.06 x10*6/uL Low 4.00-5.20 [facility] Comment on above: Order Comment: On ad kareem to ICU Performed By: #### 5 8410-2 ####STEFANO TROY ([id number])[facility] ([facility] [place], [place])[address] [place] [phone] WBC (Bld) [#/Vol] 15.8 x10*3/uL High 4.4-11.3 [facility] Comment on above: Order Comment: On ad kareem to ICU Performed By: #### 5 8410-2 ####STEFANO TROY ([id number])[facility] ([facility] [place], [place])[address] [place] [address] Erythrocyte distribution width (RBC) [Ratio] 12.9 % Normal 11.5-14.5 [facility] Comment on above: Performed By: #### 5 8410-2 ####STEFANO TROY ([id number])[facility] ([facility] [place] [place])[address] [place] [address] Hematocrit (Bld) [Volume fraction] 29.8 % Low 36.0-46.0 [facility] Comment on above: Performed By: #### 5 8410-2 ####STEFANO TROY ([id number])[facility] ([facility] [place] [place])[address] [place] [address] Hemoglobin (Bld) [Mass/Vol] 9.8 g/dL Low 12.0-16.0 [facility] Comment on above: Performed By: #### 5 8410-2 ####STEFANO TROY ([id number])[facility] ([facility] [place], [place])[address] [place] [phone] MCHC (RBC) [Mass/Vol] 32.9 g/dL Normal 32.0-36.0 [facility] Comment on above: Performed By: #### 5 8410-2 ####STEFANO TROY ([id number])[facility] ([facility] [place] [place])[address] [place] [address] MCV (RBC) [Entitic vol] 93 fL Normal 80-100 [facility] Comment on above: Performed By: #### 5 8410-2 ####STEFANO TROY (18273)[facility] ([facility] [place] [place])[address] [place] [address] Platelets (Bld) [#/Vol] 229 x10*3/uL Normal 150-450 [facility] Comment on above: Performed By: #### 5 8410-2 ####STEFANO TROY ([id number])[facility] ([facility] [place] [place])[address] [place] [address] RBC (Bld) [#/Vol] 3.19 x10*6/uL Low 4.00-5.20 [facility] Comment on above: Performed By: #### 5 8410-2 ####STEFANO TROY ([id number])[facility] ([facility] [place] [place])[address] [place] [phone] WBC (Bld) [#/Vol] 18.3 x10*3/uL High 4.4-11.3 [facility] Comment on above: Performed By: #### 5 8410-2 ####STEFANO TROY ([id number])[facility] ([facility] [place] [place])[address] [place] [address] Carboxyhemoglobin (BldA) [Ma ss fraction]on 08-10-2024 Deoxyhemoglobin (BldA) [Mass fraction] 0.5 % Normal 0.0-5.0 [facility] Comment on above: Performed By: #### 2 030-5 ####STEFANO TROY ([id number])[facility] ([facility] [place] [place])[address] [place] [address] Methemoglobin (BldA) [Mass fraction] 0.9 % Normal 0.0-1.5 [facility] Comment on above: Performed By: #### 2 030-5 ####STEFANO TROY ([id number])[facility] ([facility] [place] [place])[address] [place] [address] Deoxyhemoglobin (BldA) [Mass fraction] 0.2 % Normal 0.0-5.0 [facility] Comment on above: Performed By: #### 2 030-5 ####STEFANO TROY ([id number])[facility] ([facility] – [place], [place])[address] [place] [address] Methemoglobin (BldA) [Mass fraction] 0.6 % Normal 0.0-1.5 [facility] Comment on above: Performed By: #### 2 030-5 ####STEFANO TROY ([id number])[facility] ([facility] – [place], [place])[address] [place] [address] Deoxyhemoglobin (BldA) [Mass fraction] 0.0 % Normal 0.0-5.0 [facility] Comment on above: Performed By: #### 2 030-5 ####STEFANO TROY ([id number])[facility] ([facility] [place], [place])[address] [place] [address] Methemoglobin (BldA) [Mass fraction] 0.6 % Normal 0.0-1.5 [facility] Comment on above: Performed By: #### 2 030-5 ####STEFANO TROY ([id number])[facility] ([facility] [place], [place])[address] [place] [address] Deoxyhemoglobin (BldA) [Mass fraction] 0.0 % Normal 0.0-5.0 [facility] Comment on above: Performed By: #### 2 030-5 ####STEFANO TROY ([id number])[facility] ([facility] [place], [place])[address] [place] [address] Methemoglobin (BldA) [Mass fraction] 1.0 % Normal 0.0-1.5 [facility] Comment on above: Performed By: #### 2 030-5 ####STEFANO TROY ([id number])[facility] ([facility] [place], [place])[address] [place] [address] Deoxyhemoglobin (BldA) [Mass fraction] 0.2 % Normal 0.0-5.0 [facility] Comment on above: Performed By: #### 2 030-5 ####STEFANO TROY ([id number])[facility] ([facility] [place] [place])[address] [place] [address] Methemoglobin (BldA) [Mass fraction] 0.8 % Normal 0.0-1.5 [facility] Comment on above: Performed By: #### 2 030-5 ####STEFANO TROY ([id number])[facility] ([facility] [place] [place])[address] [place] [address] Deoxyhemoglobin (BldA) [Mass fraction] 0.0 % Normal 0.0-5.0 [facility] Comment on above: Performed By: #### 2 030-5 ####STEFANO TROY ([id number])[facility] ([facility] [place] [place])[address] [place] [address] Methemoglobin (BldA) [Mass fraction] 0.4 % Normal 0.0-1.5 [facility] Comment on above: Performed By: #### 2 030-5 ####STEFANO TROY ([id number])[facility] ([facility] [place] [place])[address] [place] [address] Deoxyhemoglobin (BldA) [Mass fraction] 0.0 % Normal 0.0-5.0 [facility] Comment on above: Performed By: #### 2 030-5 ####STEFANO TROY ([id number])[facility] ([facility] [place] [place])[address] [place] [address] Methemoglobin (BldA) [Mass fraction] 0.7 % Normal 0.0-1.5 [facility] Comment on above: Performed By: #### 2 030-5 ####STEFANO TROY ([id number])[facility] ([facility] [place] [place])[address] [place] [address] Deoxyhemoglobin (BldA) [Mass fraction] 0.0 % Normal 0.0-5.0 [facility] Comment on above: Performed By: #### 2 030-5 ####STEFANO TROY ([id number])[facility] ([facility] [place] [place])[address] [place] [address] Methemoglobin (BldA) [Mass fraction] 0.3 % Normal 0.0-1.5 [facility] Comment on above: Performed By: #### 2 030-5 ####STEFANO TROY ([id number])[facility] ([facility] [place] [place])[address] [place] [address] Carboxyhemoglobin (BldV) [Ma ss fraction]on 08-10-2024 Methemoglobin (BldV) [Mass fraction] 0.7 % Normal 0.0-1.5 [facility] Comment on above: Performed By: #### 2 032-1 ####STEFANO TROY ([id number])[facility] ([facility] [place] [place])[address] [place] [address] Carboxyhemoglobin/Hemoglobin .totalon 08-10-2024 Carboxyhemoglobin (BldA) [Mass fraction] 1.2 % Normal [facility] Comment on above: Result Comment: Ref ValuesNon-Smokers 0.5-1.5%Smokers 0.5-10.0% Performed By: #### 2 030-5 ####STEFANO TROY ([id number])[facility] ([facility] [place] [place])[address] [place] [address] Carboxyhemoglobin (BldA) [Mass fraction] 1.1 % [facility] Comment on above: Result Comment: Ref ValuesNon-Smokers 0.5-1.5%Smokers 0.5-10.0% Performed By: #### 2 030-5 ####STEFANO TROY ([id number])[facility] ([facility] [place] [place])[address] [place] [address] Carboxyhemoglobin (BldA) [Mass fraction] 1.6 % [facility] Comment on above: Result Comment: Ref ValuesNon-Smokers 0.5-1.5%Smokers 0.5-10.0% Performed By: #### 2 030-5 ####STEFANO TROY ([id number])[facility] ([facility] [place] [place])[address] [place] [address] Carboxyhemoglobin (BldA) [Mass fraction] 1.6 % [facility] Comment on above: Result Comment: Ref ValuesNon-Smokers 0.5-1.5%Smokers 0.5-10.0% Performed By: #### 2 030-5 ####STEFANO TROY ([id number])[facility] ([facility] [place] [place])[address] [place] [address] Carboxyhemoglobin (BldA) [Mass fraction] 1.4 % [facility] Comment on above: Result Comment: Ref ValuesNon-Smokers 0.5-1.5%Smokers 0.5-10.0% Performed By: #### 2 030-5 ####STEFANO TROY ([id number])[facility] ([facility] [place] [place])[address] [place] [address] Carboxyhemoglobin (BldV) [Mass fraction] 1.5 % [facility] Comment on above: Result Comment: Ref ValuesNon-Smokers 0.5-1.5%Smokers 0.5-10.0% Performed By: #### 2 032-1 ####STEFANO TROY ([id number])[facility] ([facility] [place] [place])[address] [place] [address] Carboxyhemoglobin (BldA) [Mass fraction] 1.5 % Normal [facility] Comment on above: Result Comment: Ref ValuesNon-Smokers 0.5-1.5%Smokers 0.5-10.0% Performed By: #### 2 030-5 ####STEFANO TROY ([id number])[facility] ([facility] [place] [place])[address] [place] [phone] Carboxyhemoglobin (BldA) [Mass fraction] 1.7 % Normal [facility] Comment on above: Result Comment: Ref ValuesNon-Smokers 0.5-1.5%Smokers 0.5-10.0% Performed By: #### 2 030-5 ####STEFANO TROY ([id number])[facility] ([facility] [place] [place])[address] [place] [address] Carboxyhemoglobin (BldA) [Mass fraction] 1.5 % Normal [facility] Comment on above: Result Comment: Ref ValuesNon-Smokers 0.5-1.5%Smokers 0.5-10.0% Performed By: #### 2 030-5 ####STEFANO TROY ([id number])[facility] ([facility] [place] [place])[address] [place] [phone] Hemoglobin (Bld) [Mass/Vol] 12.0 g/dL Normal 12.0-16.0 [facility] Comment on above: Performed By: #### 2 030-5 ####STEFANO TROY ([id number])[facility] ([facility] [place] [place])[address] [place] [address] Performed By: #### 9 3685-6 ####STEFANO TROY ([id number])[facility] ([facility] [place] [place])[address] [place] [address] Oxyhemoglobin (BldA) [Mass fraction] 98.2 % High 94.0-98.0 [facility] Comment on above: Performed By: #### 2 030-5 ####STEFANO TROY ([id number])[facility] ([facility] [place] [place])[address] [place] [address] Performed By: #### 9 3685-6 ####STEFANO TROY ([id number])[facility] ([facility] [place] [place])[address] [place] [phone] Coagulation surface inducedo n 08-10-2024 aPTT Coag (PPP) [Time] 34 s Normal 27-[address] [facility] Comment on above: Order Comment: The A PTT is no longer used for monitoring Unfractionated Heparin Therapy. For monitoring Heparin Therapy, use the Heparin Assay. Performed By: #### 1 4979-9 ####STEFANO TROY ([id number])[facility] ([facility] [place] [place])[address] [place] [address] Coagulation tissue factor in ducedon 08-10-2024 PT Coag (PPP) [Time] 19.0 s High 9.8-12.8 [facility] Comment on above: Performed By: #### 5 902-2 ####STEFANO TROY ([id number])[facility] ([facility] [place] [place])[address] [place], [place] [address] ECG 12-LEADon 08-10-2024 ECG 12-LEAD Ventricular Rate 71 Atrial Rate 71 P-R Interval 204 QRS Duration 148 Q-T Interval 508 QTC Calculation(Bazett) 552 P [place] 75 R [place] -23 T [place] 72 QRS Count 12 Q Onset 212 P Onset 110 P Offset 167 T Offset 466 QTC Fredericia 537 Diagnosis Normal sinus rhythm Left bundle branch block Abnormal ECG Confirmed by Staci Díaz ([id number]) on 08/10/2024 4:54:53 PM Normal [facility] Fibrinogenon 08-10-2024 Fibrinogen Coag (PPP) [Mass/Vol] 185 mg/dL Low 200-400 [facility] Comment on above: Performed By: #### 3 255-7 ####STEFANO TROY ([id number])[facility] ([facility] [place] [place])[address] [place] [phone] Fibrinogen Coag (PPP) [Mass/Vol] 151 mg/dL Low 200-400 [facility] Comment on above: Performed By: #### 3 255-7 ####STEFANO TROY ([id number])[facility] ([facility] [place] [place])[address] [place] [address] Gas AND CO AND electrolytes panelon 08-10-2024 Hemoglobin (Bld) [Mass/Vol] 10.1 g/dL Low 12.0-16.0 [facility] Comment on above: Performed By: #### 9 3685-6 ####STEFANO TROY ([id number])[facility] ([facility] [place] [place])[address] [place] [address] Performed By: #### 2 030-5 ####STEFANO TROY ([id number])[facility] ([facility] [place] [place])[address] [place] [address] Oxyhemoglobin (BldA) [Mass fraction] 97.4 % Normal 94.0-98.0 [facility] Comment on above: Performed By: #### 9 3685-6 ####STEFANO TROY ([id number])[facility] ([facility] [place] [place])[address] [place] [phone] Performed By: #### 2 030-5 ####STEFANO TROY ([id number])[facility] ([facility] [place] [place])[address] [place] [address] Hemoglobin (Bld) [Mass/Vol] 8.3 g/dL Low 12.0-16.0 [facility] Comment on above: Performed By: #### 9 3685-6 ####STEFANO TROY ([id number])[facility] ([facility] [place] [place])[address] [place] [address] Performed By: #### 2 030-5 ####STEFANO TROY ([id number])[facility] ([facility] [place] [place])[address] [place] [address] Oxyhemoglobin (BldA) [Mass fraction] 98.2 % High 94.0-98.0 [facility] Comment on above: Performed By: #### 9 3685-6 ####STEFANO TROY ([id number])[facility] ([facility] [place] [place])[address] [place] [address] Performed By: #### 2 030-5 ####STEFANO TROY ([id number])[facility] ([facility] [place] [place])[address] [place] [address] Hemoglobin (Bld) [Mass/Vol] 9.1 g/dL Low 12.0-16.0 [facility] Comment on above: Performed By: #### 9 3685-6 ####STEFANO TROY ([id number])[facility] ([facility] [place] [place])[address] [place] [address] Performed By: #### 2 030-5 ####STEFANO TROY ([id number])[facility] ([facility] [place] [place])[address] [place] [address] Oxyhemoglobin (BldA) [Mass fraction] 97.8 % Normal 94.0-98.0 [facility] Comment on above: Performed By: #### 9 3685-6 ####STEFANO TROY ([id number])[facility] ([facility] [place] [place])[address] [place] [address] Performed By: #### 2 030-5 ####STEFANO TROY ([id number])[facility] ([facility] [place] [place])[address] [place] [address] Hemoglobin (Bld) [Mass/Vol] 8.8 g/dL Low 12.0-16.0 [facility] Comment on above: Performed By: #### 9 3685-6 ####STEFANO TROY ([id number])[facility] ([facility] [place] [place])[address] [place] [phone] Performed By: #### 2 030-5 ####STEFANO TROY ([id number])[facility] ([facility] [place] [place])[address] [place] [phone] Oxyhemoglobin (BldA) [Mass fraction] 97.4 % Normal 94.0-98.0 [facility] Comment on above: Performed By: #### 9 3685-6 ####STEFANO TROY ([id number])[facility] ([facility] [place] [place])[address] [place] [address] Performed By: #### 2 030-5 ####STEFANO TROY ([id number])[facility] ([facility] [place] [place])[address] [place] [address] Hemoglobin (Bld) [Mass/Vol] 8.8 g/dL Low 12.0-16.0 [facility] Comment on above: Performed By: #### 9 3685-6 ####STEFANO TROY ([id number])[facility] ([facility] [place] [place])[address] [place] [address] Performed By: #### 2 030-5 ####STEFANO TROY ([id number])[facility] ([facility] [place] [place])[address] [place] [address] Oxyhemoglobin (BldA) [Mass fraction] 97.6 % Normal 94.0-98.0 [facility] Comment on above: Performed By: #### 9 3685-6 ####STEFANO TROY ([id number])[facility] ([facility] [place] [place])[address] [place] [address] Performed By: #### 2 030-5 ####STEFANO TROY ([id number])[facility] ([facility] [place] [place])[address] [place] [address] Hemoglobin (Bld) [Mass/Vol] 8.6 g/dL Low 12.0-16.0 [facility] Comment on above: Performed By: #### 9 3685-6 ####STEFANO TROY ([id number])[facility] ([facility] [place] [place])[address] [place] [address] Performed By: #### 2 030-5 ####STEFANO TROY ([id number])[facility] ([facility] [place] [place])[address] [place], [place] [address] Oxyhemoglobin (BldA) [Mass fraction] 98.0 % Normal 94.0-98.0 [facility] Comment on above: Performed By: #### 9 3685-6 ####STEFANO TROY ([id number])[facility] ([facility] [place] [place])[address] [place], [place] [address] Performed By: #### 2 030-5 ####STEFANO TROY ([id number])[facility] ([facility] [place] [place])[address] [place] [address] Hemoglobin (Bld) [Mass/Vol] 10.9 g/dL Low 12.0-16.0 [facility] Comment on above: Performed By: #### 9 3685-6 ####STEFANO TROY ([id number])[facility] ([facility] [place] [place])[address] [place] [address] Performed By: #### 2 030-5 ####STEFANO TROY ([id number])[facility] ([facility] [place] [place])[address] [place], [place] [address] Oxyhemoglobin (BldA) [Mass fraction] 97.6 % Normal 94.0-98.0 [facility] Comment on above: Performed By: #### 9 3685-6 ####STEFANO TROY ([id number])[facility] ([facility] [place] [place])[address] [place] [address] Performed By: #### 2 030-5 ####STEFANO TROY ([id number])[facility] ([facility] [place] [place])[address] [place] [address] Gas and Carbon monoxide and Electrolytes panel (BldA)on 08-10-2024 Anion gap 4 (BldA) [Moles/Vol] 11 mmo/L Normal 10-25 [facility] Comment on above: Performed By: #### 9 3685-6 ####STEFANO TROY ([id number])[facility] ([facility] [place] [place])[address] [place] [address] Base excess Calc (Bld) [Moles/Vol] -5.5000 mmol/L Low -2.0-3.0 [facility] Comment on above: Performed By: #### 9 3685-6 ####STEFANO TROY ([id number])[facility] ([facility] [place] [place])[address] [place], [place] [address] Calcium.ionized (BldA) [Moles/Vol] 1.10 mmol/L Normal 1.10-1.33 [facility] Comment on above: Performed By: #### 9 3685-6 ####STEFANO TROY ([id number])[facility] ([facility] [place] [place])[address] [place], [place] [address] Chloride (BldA) [Moles/Vol] 110 mmol/L High 98-107 [facility] Comment on above: Performed By: #### 9 3685-6 ####STEFANO TROY ([id number])[facility] ([facility] [place] [place])[address] [place] [address] CO2 (Bld) [Partial pressure] 39 mm Hg Normal 38-42 [facility] Comment on above: Performed By: #### 9 3685-6 ####STEFANO TROY ([id number])[facility] ([facility] [place] [place])[address] [place] [address] Glucose [Mass/Vol] 234 mg/dL High 74-99 [facility] Comment on above: Performed By: #### 9 3685-6 ####STEFANO TROY ([id number])[facility] ([facility] [place] [place])[address] [place] [address] HCO3 (Bld) [Moles/Vol] 20.1 mmol/L Low 22.0-26.0 [facility] Comment on above: Performed By: #### 9 3685-6 ####STEFANO TROY ([id number])[facility] ([facility] [place] [place])[address] [place] [phone] Hematocrit Est (Bld) [Volume fraction] 27.0 % Low 36.0-46.0 [facility] Comment on above: Performed By: #### 9 3685-6 ####STEFANO TROY ([id number])[facility] ([facility] [place] [place])[address] [place] [address] Hemoglobin (Bld) [Mass/Vol] 9.1 g/dL Low 12.0-16.0 [facility] Comment on above: Performed By: #### 9 3685-6 ####STEFANO TROY ([id number])[facility] ([facility] [place] [place])[address] [place] [phone] Inhaled oxygen concentration 40 % Normal [facility] Comment on above: Performed By: #### 9 3685-6 ####STEFANO TROY ([id number])[facility] ([facility] [place] [place])[address] [place] [address] Lactate (BldA) [Moles/Vol] 1.9 mmol/L Normal 0.4-2.0 [facility] Comment on above: Performed By: #### 9 3685-6 ####STEFANO TROY ([id number])[facility] ([facility] [place] [place])[address] [place] [address] Oxygen (Bld) [Partial pressure] 154 mm Hg High 85-95 [facility] Comment on above: Performed By: #### 9 3685-6 ####STEFANO TROY ([id number])[facility] ([facility] [place] [place])[address] [place] [address] Oxyhemoglobin (BldA) [Mass fraction] 97.5 % Normal 94.0-98.0 [facility] Comment on above: Performed By: #### 9 3685-6 ####STEFANO TROY ([id number])[facility] ([facility] [place] [place])[address] [place] [address] PEEP CMH2O 5.0 cm H2O Normal [facility] Comment on above: Performed By: #### 9 3685-6 ####STEFANO TROY ([id number])[facility] ([facility] [place] [place])[address] [place] [address] pH (Bld) 7.32 [pH] Low 7.38-7.42 [facility] Comment on above: Performed By: #### 9 3685-6 ####STEFANO TROY ([id number])[facility] ([facility] [place] [place])[address] [place] [address] Potassium (BldA) [Moles/Vol] 4.0 mmol/L Normal 3.5-5.3 [facility] Comment on above: Performed By: #### 9 3685-6 ####STEFANO TROY ([id number])[facility] ([facility] [place] [place])[address] [place] [address] Sodium (BldA) [Moles/Vol] 137 mmol/L Normal 136-145 [facility] Comment on above: Performed By: #### 9 3685-6 ####STEFANO TROY ([id number])[facility] ([facility] [place] [place])[address] [place] [address] TIDAL VOLUME 400 mL Normal [facility] Comment on above: Performed By: #### 9 3685-6 ####STEFANO TROY ([id number])[facility] ([facility] [place] [place])[address] [place] [address] VENTILATOR RATE 14 bpm Normal [facility] Comment on above: Performed By: #### 9 3685-6 ####STEFANO TROY ([id number])[facility] ([facility] [place] [place])[address] [place], [place] [address] Anion gap 4 (BldA) [Moles/Vol] 12 mmo/L Normal 10-25 [facility] Comment on above: Performed By: #### 9 3685-6 ####STEFANO TROY ([id number])[facility] ([facility] [place] [place])[address] [place], [place] [address] Base excess Calc (Bld) [Moles/Vol] -4.4000 mmol/L Low -2.0-3.0 [facility] Comment on above: Performed By: #### 9 3685-6 ####STEFANO TROY ([id number])[facility] ([facility] [place] [place])[address] [place], [place] [address] Calcium.ionized (BldA) [Moles/Vol] 1.04 mmol/L Low 1.10-1.33 [facility] Comment on above: Performed By: #### 9 3685-6 ####STEFANO TROY ([id number])[facility] ([facility] [place] [place])[address] [place] [address] Chloride (BldA) [Moles/Vol] 110 mmol/L High 98-107 [facility] Comment on above: Performed By: #### 9 3685-6 ####STEFANO TROY ([id number])[facility] ([facility] [place] [place])[address] [place], [place] [address] CO2 (Bld) [Partial pressure] 43 mm Hg High 38-42 [facility] Comment on above: Performed By: #### 9 3685-6 ####STEFANO TROY ([id number])[facility] ([facility] [place] [place])[address] [place] [address] Glucose [Mass/Vol] 202 mg/dL High 74-99 [facility] Comment on above: Performed By: #### 9 3685-6 ####STEFANO TROY (67346)[facility] ([facility] [place] [place])[address] [place] [address] HCO3 (Bld) [Moles/Vol] 21.7 mmol/L Low 22.0-26.0 [facility] Comment on above: Performed By: #### 9 3685-6 ####STEFANO TROY ([id number])[facility] ([facility] [place] [place])[address] [place] [address] Hematocrit Est (Bld) [Volume fraction] 29.0 % Low 36.0-46.0 [facility] Comment on above: Performed By: #### 9 3685-6 ####STEFANO TROY ([id number])[facility] ([facility] [place] [place])[address] [place] [address] Hemoglobin (Bld) [Mass/Vol] 9.6 g/dL Low 12.0-16.0 [facility] Comment on above: Performed By: #### 9 3685-6 ####STEFANO TROY ([id number])[facility] ([facility] [place] [place])[address] [place] [address] Inhaled oxygen concentration 50 % Normal [facility] Comment on above: Performed By: #### 9 3685-6 ####STEFANO TROY ([id number])[facility] ([facility] [place] [place])[address] [place] [address] Lactate (BldA) [Moles/Vol] 1.2 mmol/L Normal 0.4-2.0 [facility] Comment on above: Performed By: #### 9 3685-6 ####STEFANO TROY ([id number])[facility] ([facility] [place] [place])[address] [place] [address] Oxygen (Bld) [Partial pressure] 149 mm Hg High 85-95 [facility] Comment on above: Performed By: #### 9 3685-6 ####STEFANO TROY ([id number])[facility] ([facility] [place], [place])[address] [place] [id number] Oxyhemoglobin (BldA) [Mass fraction] 97.2 % Normal 94.0-98.0 [facility] Comment on above: Performed By: #### 9 3685-6 ####STEFANO TROY ([id number])[facility] ([facility] [place], [place])[address] [place] [id number] PEEP CMH2O 5.0 cm H2O [facility] Comment on above: Performed By: #### 9 3685-6 ####STEFANO TROY ([id number])[facility] ([facility] [place], [place])[address] [place] [address] pH (Bld) 7.31 [pH] Low 7.38-7.42 [facility] Comment on above: Performed By: #### 9 3685-6 ####STEFANO TROY ([id number])[facility] ([facility] [place], [place])[address] [place] [address] Potassium (BldA) [Moles/Vol] 3.7 mmol/L Normal 3.5-5.3 [facility] Comment on above: Performed By: #### 9 3685-6 ####STEFANO TROY ([id number])[facility] ([facility] [place], [place])[address] [place] [address] Sodium (BldA) [Moles/Vol] 140 mmol/L Normal 136-145 [facility] Comment on above: Performed By: #### 9 3685-6 ####STEFANO TROY ([id number])[facility] ([facility] [place], [place])[address] [place] [id number] Specimen drawn from Nom Arterial Line [facility] Comment on above: Performed By: #### 9 3685-6 ####STEFANO TRYO ([id number])[facility] ([facility] [place], [place])[address] [place] [address] TIDAL VOLUME 450 mL [facility] Comment on above: Performed By: #### 9 3685-6 ####STEFANO TROY ([id number])[facility] ([facility] [place], [place])[address] [place] [id number] VENTILATOR RATE 14 bpm Normal [facility] Comment on above: Performed By: #### 9 3685-6 ####STEFANO TROY ([id number])[facility] ([facility] [place], [place])[address] [place], [place] [id number] Anion gap 4 (BldA) [Moles/Vol] 13 mmo/L Normal 10-25 [facility] Comment on above: Performed By: #### 9 3685-6 ####STEFANO TROY ([id number])[facility] ([facility] [place], [place])[address] [place] [address] Base excess Calc (Bld) [Moles/Vol] -3.8000 mmol/L Low -2.0-3.0 [facility] Comment on above: Performed By: #### 9 3685-6 ####STEFANO TROY ([id number])[facility] ([facility] [place], [place])[address] [place] [address] Calcium.ionized (BldA) [Moles/Vol] 1.17 mmol/L Normal 1.10-1.33 [facility] Comment on above: Performed By: #### 9 3685-6 ####STEFANO TROY ([id number])[facility] ([facility] [place], [place])[address] [place] [address] Chloride (BldA) [Moles/Vol] 108 mmol/L High 98-107 [facility] Comment on above: Performed By: #### 9 3685-6 ####STEFANO TROY ([id number])[facility] ([facility] [place], [place])[address] [place] [id number] CO2 (Bld) [Partial pressure] 43 mm Hg High 38-42 [facility] Comment on above: Performed By: #### 9 3685-6 ####STEFANO TROY ([id number])[facility] ([facility] [place], [place])[address] [place], [place] [id number] Glucose [Mass/Vol] 162 mg/dL High 74-99 [facility] Comment on above: Performed By: #### 9 3685-6 ####STEFANO TROY ([id number])[facility] ([facility] – [place], [place])[address] [place] [id number] HCO3 (Bld) [Moles/Vol] 22.2 mmol/L Normal 22.0-26.0 [facility] Comment on above: Performed By: #### 9 3685-6 ####STEFANO TROY ([id number])[facility] ([facility] [place], [place])[address] [place] [id number] Hematocrit Est (Bld) [Volume fraction] 30.0 % Low 36.0-46.0 [facility] Comment on above: Performed By: #### 9 3685-6 ####STEFANO TROY ([id number])[facility] ([facility] [place], [place])[address] [place] [address] Inhaled oxygen concentration 100 % Normal [facility] Comment on above: Performed By: #### 9 3685-6 ####STEFANO TROY ([id number])[facility] ([facility] [place], [place])[address] [place] [address] Lactate (BldA) [Moles/Vol] 2.2 mmol/L High 0.4-2.0 [facility] Comment on above: Performed By: #### 9 3685-6 ####STEFANO TROY ([id number])[facility] ([facility] [place], [place])[address] [place] [address] Oxygen (Bld) [Partial pressure] 298 mm Hg High 85-95 [facility] Comment on above: Performed By: #### 9 3685-6 ####STEFANO TROY ([id number])[facility] ([facility] [place], [place])[address] [place] [address] pH (Bld) 7.32 [pH] Low 7.38-7.42 [facility] Comment on above: Performed By: #### 9 3685-6 ####STEFANO TROY ([id number])[facility] ([facility] [place], [place])[address] [place] [address] Potassium (BldA) [Moles/Vol] 3.7 mmol/L Normal 3.5-5.3 [facility] Comment on above: Performed By: #### 9 3685-6 ####STEFANO TROY ([id number])[facility] ([facility] [place], [place])[address] [place] [address] Sodium (BldA) [Moles/Vol] 139 mmol/L Normal 136-145 [facility] Comment on above: Performed By: #### 9 3685-6 ####STEFANO TROY ([id number])[facility] ([facility] [place], [place])[address] [place], [place] [address] Anion gap 4 (BldA) [Moles/Vol] 14 mmo/L Normal 10-25 [facility] Comment on above: Performed By: #### 9 3685-6 ####STEFANO TROY ([id number])[facility] ([facility] [place], [place])[address] [place], [place] [address] Base excess Calc (Bld) [Moles/Vol] -3.6000 mmol/L Low -2.0-3.0 [facility] Comment on above: Performed By: #### 9 3685-6 ####STEFANO TROY ([id number])[facility] ([facility] [place], [place])[address] [place], [place] [address] Calcium.ionized (BldA) [Moles/Vol] 1.19 mmol/L Normal 1.10-1.33 [facility] Comment on above: Performed By: #### 9 3685-6 ####STEFANO TROY ([id number])[facility] ([facility] [place], [place])[address] [place] [address] Chloride (BldA) [Moles/Vol] 108 mmol/L High 98-107 [facility] Comment on above: Performed By: #### 9 3685-6 ####STEFANO TROY ([id number])[facility] ([facility] [place], [place])[address] [place], [place] [address] CO2 (Bld) [Partial pressure] 42 mm Hg Normal 38-42 [facility] Comment on above: Performed By: #### 9 3685-6 ####STEFANO TROY ([id number])[facility] ([facility] [place], [place])[address] [place] [phone] Glucose [Mass/Vol] 144 mg/dL High 74-99 [facility] Comment on above: Performed By: #### 9 3685-6 ####STEFANO TROY ([id number])[facility] ([facility] [place], [place])[address] [place] [address] HCO3 (Bld) [Moles/Vol] 22.1 mmol/L Normal 22.0-26.0 [facility] Comment on above: Performed By: #### 9 3685-6 ####STEFANO TROY ([id number])[facility] ([facility] [place], [place])[address] [place] [address] Hematocrit Est (Bld) [Volume fraction] 25.0 % Low 36.0-46.0 [facility] Comment on above: Performed By: #### 9 3685-6 ####STEFANO TROY ([id number])[facility] ([facility] [place], [place])[address] [place] [address] Inhaled oxygen concentration 100 % Normal [facility] Comment on above: Performed By: #### 9 3685-6 ####STEFANO TROY ([id number])[facility] ([facility] [place], [place])[address] [place] [address] Lactate (BldA) [Moles/Vol] 2.9 mmol/L High 0.4-2.0 [facility] Comment on above: Performed By: #### 9 3685-6 ####STEFANO TROY ([id number])[facility] ([facility] [place], [place])[address] [place] [address] Oxygen (Bld) [Partial pressure] 266 mm Hg High 85-95 [facility] Comment on above: Performed By: #### 9 3685-6 ####STEFANO TROY ([id number])[facility] ([facility] [place], [place])[address] [place] [address] pH (Bld) 7.33 [pH] Low 7.38-7.42 [facility] Comment on above: Performed By: #### 9 3685-6 ####STEFANO TROY ([id number])[facility] ([facility] [place], [place])[address] [place] [address] Potassium (BldA) [Moles/Vol] 4.0 mmol/L Normal 3.5-5.3 [facility] Comment on above: Performed By: #### 9 3685-6 ####STEFANO TROY ([id number])[facility] ([facility] [place], [place])[address] [place] [address] Sodium (BldA) [Moles/Vol] 140 mmol/L Normal 136-145 [facility] Comment on above: Performed By: #### 9 3685-6 ####STEFANO TROY ([id number])[facility] ([facility] [place], [place])[address] [place] [address] Anion gap 4 (BldA) [Moles/Vol] 11 mmo/L Normal 10-25 [facility] Comment on above: Performed By: #### 9 3685-6 ####STEFANO TROY ([id number])[facility] ([facility] [place], [place])[address] [place], [place] [address] Base excess Calc (Bld) [Moles/Vol] -4.2000 mmol/L Low -2.0-3.0 [facility] Comment on above: Performed By: #### 9 3685-6 ####STEFANO TROY ([id number])[facility] ([facility] [place], [place])[address] [place] [address] Calcium.ionized (BldA) [Moles/Vol] 1.15 mmol/L Normal 1.10-1.33 [facility] Comment on above: Performed By: #### 9 3685-6 ####STEFANO TROY ([id number])[facility] ([facility] [place], [place])[address] [place] [address] Chloride (BldA) [Moles/Vol] 109 mmol/L High 98-107 [facility] Comment on above: Performed By: #### 9 3685-6 ####STEFANO TROY ([id number])[facility] ([facility] [place], [place])[address] [place] [address] CO2 (Bld) [Partial pressure] 45 mm Hg High 38-42 [facility] Comment on above: Performed By: #### 9 3685-6 ####STEFANO TROY ([id number])[facility] ([facility] [place], [place])[address] [place] [address] Glucose [Mass/Vol] 188 mg/dL High 74-99 [facility] Comment on above: Performed By: #### 9 3685-6 ####STEFANO TROY ([id number])[facility] ([facility] [place], [place])[address] [place] [address] HCO3 (Bld) [Moles/Vol] 22.1 mmol/L Normal 22.0-26.0 [facility] Comment on above: Performed By: #### 9 3685-6 ####STEFANO TROY ([id number])[facility] ([facility] [place], [place])[address] [place] [address] Hematocrit Est (Bld) [Volume fraction] 27.0 % Low 36.0-46.0 [facility] Comment on above: Performed By: #### 9 3685-6 ####STEFANO TROY ([id number])[facility] ([facility] [place], [place])[address] [place] [address] Inhaled oxygen concentration 100 % Normal [facility] Comment on above: Performed By: #### 9 3685-6 ####STEFANO TROY ([id number])[facility] ([facility] [place], [place])[address] [place] [address] Lactate (BldA) [Moles/Vol] 2.7 mmol/L High 0.4-2.0 [facility] Comment on above: Performed By: #### 9 3685-6 ####STEFANO TROY ([id number])[facility] ([facility] [place], [place])[address] [place] [address] Oxygen (Bld) [Partial pressure] 281 mm Hg High 85-95 [facility] Comment on above: Performed By: #### 9 3685-6 ####STEFANO TROY ([id number])[facility] ([facility] [place], [place])[address] [place] [address] pH (Bld) 7.30 [pH] Low 7.38-7.42 [facility] Comment on above: Performed By: #### 9 3685-6 ####STEFANO TROY ([id number])[facility] ([facility] [place], [place])[address] [place] [address] Potassium (BldA) [Moles/Vol] 4.7 mmol/L Normal 3.5-5.3 [facility] Comment on above: Performed By: #### 9 3685-6 ####STEFANO TROY ([id number])[facility] ([facility] [place], [place])[address] [place] [address] Sodium (BldA) [Moles/Vol] 137 mmol/L Normal 136-145 [facility] Comment on above: Performed By: #### 9 3685-6 ####STEFANO TROY ([id number])[facility] ([facility] [place], [place])[address] [place], [place] [address] Anion gap 4 (BldA) [Moles/Vol] 9 mmo/L Low 10-25 [facility] Comment on above: Performed By: #### 9 3685-6 ####STEFANO TROY ([id number])[facility] ([facility] [place], [place])[address] [place], [place] [address] Base excess Calc (Bld) [Moles/Vol] -1.5000 mmol/L Normal -2.0-3.0 [facility] Comment on above: Performed By: #### 9 3685-6 ####STEFANO TROY ([id number])[facility] ([facility] [place], [place])[address] [place], [place] [address] Calcium.ionized (BldA) [Moles/Vol] 1.14 mmol/L Normal 1.10-1.33 [facility] Comment on above: Performed By: #### 9 3785-6 ####STEFANO TROY ([id number])[facility] ([facility] [place], [place])[address] [place] [address] Chloride (BldA) [Moles/Vol] 109 mmol/L High 98-107 [facility] Comment on above: Performed By: #### 9 3685-6 ####STEFANO TROY ([id number])[facility] ([facility] [place], [place])[address] [place] [address] CO2 (Bld) [Partial pressure] 35 mm Hg Low 38-42 [facility] Comment on above: Performed By: #### 9 3685-6 ####STEFANO TROY ([id number])[facility] ([facility] [place], [place])[address] [place] [address] Glucose [Mass/Vol] 182 mg/dL High 74-99 [facility] Comment on above: Performed By: #### 9 3685-6 ####STEFANO TROY ([id number])[facility] ([facility] [place], [place])[address] [place] [address] HCO3 (Bld) [Moles/Vol] 22.7 mmol/L Normal 22.0-26.0 [facility] Comment on above: Performed By: #### 9 3685-6 ####STEFANO TROY ([id number])[facility] ([facility] [place], [place])[address] [place] [address] Hematocrit Est (Bld) [Volume fraction] 26.0 % Low 36.0-46.0 [facility] Comment on above: Performed By: #### 9 3685-6 ####STEFANO TROY ([id number])[facility] ([facility] [place], [place])[address] [place] [address] Inhaled oxygen concentration 80 % Normal [facility] Comment on above: Performed By: #### 9 3685-6 ####STEFANO TROY ([id number])[facility] ([facility] [place], [place])[address] [place] [address] Lactate (BldA) [Moles/Vol] 1.2 mmol/L Normal 0.4-2.0 [facility] Comment on above: Performed By: #### 9 3685-6 ####STEFANO TROY ([id number])[facility] ([facility] [place], [place])[address] [place] [address] Oxygen (Bld) [Partial pressure] 350 mm Hg High 85-95 [facility] Comment on above: Performed By: #### 9 3685-6 ####STEFANO TROY ([id number])[facility] ([facility] [place], [place])[address] [place] [address] pH (Bld) 7.42 [pH] Normal 7.38-7.42 [facility] Comment on above: Performed By: #### 9 3685-6 ####STEFANO TROY ([id number])[facility] ([facility] [place], [place])[address] [place] [address] Potassium (BldA) [Moles/Vol] 5.3 mmol/L Normal 3.5-5.3 [facility] Comment on above: Performed By: #### 9 3685-6 ####STEFANO TROY ([id number])[facility] ([facility] [place], [place])[address] [place] [address] Sodium (BldA) [Moles/Vol] 135 mmol/L Low 136-145 [facility] Comment on above: Performed By: #### 9 3685-6 ####STEFANO TROY ([id number])[facility] ([facility] [place], [place])[address] [place], [place] [address] Anion gap 4 (BldA) [Moles/Vol] 10 mmo/L Normal 10-25 [facility] Comment on above: Performed By: #### 9 3685-6 ####STEFANO TROY ([id number])[facility] ([facility] [place], [place])[address] [place], [place] [address] Base excess Calc (Bld) [Moles/Vol] -1.5000 mmol/L Normal -2.0-3.0 [facility] Comment on above: Performed By: #### 9 3685-6 ####STEFANO TROY ([id number])[facility] ([facility] [place], [place])[address] [place] [address] Calcium.ionized (BldA) [Moles/Vol] 1.12 mmol/L Normal 1.10-1.33 [facility] Comment on above: Performed By: #### 9 3685-6 ####STEFANO TROY ([id number])[facility] ([facility] [place], [place])[address] [place] [address] Chloride (BldA) [Moles/Vol] 108 mmol/L High 98-107 [facility] Comment on above: Performed By: #### 9 3685-6 ####STEFANO TROY ([id number])[facility] ([facility] [place], [place])[address] [place] [address] CO2 (Bld) [Partial pressure] 35 mm Hg Low 38-42 [facility] Comment on above: Performed By: #### 9 3685-6 ####STEFANO TROY ([id number])[facility] ([facility] [place], [place])[address] [place] [address] Glucose [Mass/Vol] 175 mg/dL High 74-99 [facility] Comment on above: Performed By: #### 9 3685-6 ####STEFANO TROY ([id number])[facility] ([facility] [place], [place])[address] [place], [place] [address] HCO3 (Bld) [Moles/Vol] 22.7 mmol/L Normal 22.0-26.0 [facility] Comment on above: Performed By: #### 9 3685-6 ####STEFANO TROY ([id number])[facility] ([facility] [place], [place])[address] [place] [phone] Hematocrit Est (Bld) [Volume fraction] 26.0 % Low 36.0-46.0 [facility] Comment on above: Performed By: #### 9 3685-6 ####STEFANO TROY ([id number])[facility] ([facility] [place], [place])[address] [place] [address] Lactate (BldA) [Moles/Vol] 1.2 mmol/L Normal 0.4-2.0 [facility] Comment on above: Performed By: #### 9 3685-6 ####STEFANO TROY ([id number])[facility] ([facility] [place], [place])[address] [place], [place] [address] Oxygen (Bld) [Partial pressure] 356 mm Hg High 85-95 [facility] Comment on above: Performed By: #### 9 3685-6 ####STEFANO TROY ([id number])[facility] ([facility] [place], [place])[address] [place], [place] [address] pH (Bld) 7.42 [pH] Normal 7.38-7.42 [facility] Comment on above: Performed By: #### 9 3685-6 ####STEFANO TROY ([id number])[facility] ([facility] [place], [place])[address] [place] [address] Potassium (BldA) [Moles/Vol] 5.0 mmol/L Normal 3.5-5.3 [facility] Comment on above: Performed By: #### 9 3685-6 ####STEFANO TROY ([id number])[facility] ([facility] [place], [place])[address] [place], [place] [address] Sodium (BldA) [Moles/Vol] 136 mmol/L Normal 136-145 [facility] Comment on above: Performed By: #### 9 3685-6 ####STEFANO TROY ([id number])[facility] ([facility] [place], [place])[address] [place], [place] [address] Anion gap 4 (BldA) [Moles/Vol] 9 mmo/L Low 10-25 [facility] Comment on above: Performed By: #### 9 3685-6 ####STEFANO TROY ([id number])[facility] ([facility] [place], [place])[address] [place], [place] [address] Base excess Calc (Bld) [Moles/Vol] -0.2000 mmol/L Normal -2.0-3.0 [facility] Comment on above: Performed By: #### 9 3685-6 ####STEFANO TROY ([id number])[facility] ([facility] [place], [place])[address] [place], [place] [address] Calcium.ionized (BldA) [Moles/Vol] 1.09 mmol/L Low 1.10-1.33 [facility] Comment on above: Performed By: #### 9 3685-6 ####STEFANO TROY ([id number])[facility] ([facility] [place], [place])[address] [place] [address] Chloride (BldA) [Moles/Vol] 108 mmol/L High 98-107 [facility] Comment on above: Performed By: #### 9 3685-6 ####STEFANO TROY ([id number])[facility] ([facility] [place], [place])[address] [place] [address] CO2 (Bld) [Partial pressure] 34 mm Hg Low 38-42 [facility] Comment on above: Performed By: #### 9 3685-6 ####STEFANO TROY ([id number])[facility] ([facility] [place], [place])[address] [place] [address] Glucose [Mass/Vol] 174 mg/dL High 74-99 [facility] Comment on above: Performed By: #### 9 3685-6 ####STEFANO TROY ([id number])[facility] ([facility] [place], [place])[address] [place], [place] [address] HCO3 (Bld) [Moles/Vol] 23.6 mmol/L Normal 22.0-26.0 [facility] Comment on above: Performed By: #### 9 3685-6 ####STEFANO TROY ([id number])[facility] ([facility] [place], [place])[address] [place] [address] Hematocrit Est (Bld) [Volume fraction] 26.0 % Low 36.0-46.0 [facility] Comment on above: Performed By: #### 9 3685-6 ####STEFANO TROY ([id number])[facility] ([facility] [place], [place])[address] [place] [address] Inhaled oxygen concentration 75 % Normal [facility] Comment on above: Performed By: #### 9 1525-6 ####STEFANO TROY ([id number])[facility] ([facility] [place], [place])[address] [place] [address] Lactate (BldA) [Moles/Vol] 1.2 mmol/L Normal 0.4-2.0 [facility] Comment on above: Performed By: #### 9 3685-6 ####STEFANO TROY ([id number])[facility] ([facility] [place], [place])[address] [place], [place] [address] Oxygen (Bld) [Partial pressure] 396 mm Hg High 85-95 [facility] Comment on above: Performed By: #### 9 3685-6 ####STEFANO TROY ([id number])[facility] ([facility] [place], [place])[address] [place], [place] [address] pH (Bld) 7.45 [pH] High 7.38-7.42 [facility] Comment on above: Performed By: #### 9 3685-6 ####STEFANO TROY ([id number])[facility] ([facility] [place], [place])[address] [place], [place] [address] Potassium (BldA) [Moles/Vol] 6.0 mmol/L High 3.5-5.3 [facility] Comment on above: Performed By: #### 9 3685-6 ####STEFANO TROY ([id number])[facility] ([facility] [place], [place])[address] [place] [address] Sodium (BldA) [Moles/Vol] 135 mmol/L Low 136-145 [facility] Comment on above: Performed By: #### 9 3685-6 ####STEFANO TROY ([id number])[facility] ([facility] [place], [place])[address] [place] [id number] Anion gap 4 (BldA) [Moles/Vol] 11 mmo/L Normal 10-25 [facility] Comment on above: Performed By: #### 9 3685-6 ####STEFANO TROY ([id number])[facility] ([facility] [place], [place])[address] [place] [address] Base excess Calc (Bld) [Moles/Vol] -2.3000 mmol/L Low -2.0-3.0 [facility] Comment on above: Performed By: #### 9 3685-6 ####STEFANO TROY ([id number])[facility] ([facility] [place], [place])[address] [place] [address] Calcium.ionized (BldA) [Moles/Vol] 1.21 mmol/L Normal 1.10-1.33 [facility] Comment on above: Performed By: #### 9 3685-6 ####STEFANO TROY ([id number])[facility] ([facility] [place] [place])[address] [place] [address] Chloride (BldA) [Moles/Vol] 108 mmol/L High 98-107 [facility] Comment on above: Performed By: #### 9 3685-6 ####STEFANO TROY ([id number])[facility] ([facility] [place] [place])[address] [place] [address] CO2 (Bld) [Partial pressure] 38 mm Hg Normal 38-42 [facility] Comment on above: Performed By: #### 9 3685-6 ####STEFANO TROY ([id number])[facility] ([facility] [place], [place])[address] [place] [id number] Glucose [Mass/Vol] 141 mg/dL High 74-99 [facility] Comment on above: Performed By: #### 9 3685-6 ####STEFANO TROY ([id number])[facility] ([facility] [place], [place])[address] [place] [address] HCO3 (Bld) [Moles/Vol] 22.5 mmol/L Normal 22.0-26.0 [facility] Comment on above: Performed By: #### 9 3685-6 ####STEFANO TROY ([id number])[facility] ([facility] [place], [place])[address] [place] [phone] Hematocrit Est (Bld) [Volume fraction] 33.0 % Low 36.0-46.0 [facility] Comment on above: Performed By: #### 9 3685-6 ####STEFANO TROY ([id number])[facility] ([facility] – [place], [place])[address] [place] [address] Inhaled oxygen concentration 100 % Normal [facility] Comment on above: Performed By: #### 9 3685-6 ####STEFANO TROY ([id number])[facility] ([facility] – [place], [place])[address] [place] [address] Lactate (BldA) [Moles/Vol] 1.2 mmol/L Normal 0.4-2.0 [facility] Comment on above: Performed By: #### 9 3685-6 ####STEFANO TROY ([id number])[facility] ([facility] – [place], [place])[address] [id number] Oxygen (Bld) [Partial pressure] 318 mm Hg High 85-95 [facility] Comment on above: Performed By: #### 9 3685-6 ####STEFANO TROY ([id number])[facility] ([facility] – [place], [place])[address] [address] pH (Bld) 7.38 [pH] Normal 7.38-7.42 [facility] Comment on above: Performed By: #### 9 9115-6 ####STEFANO TROY ([id number])[facility] ([facility] – [place], [place])[address] [place] [address] Potassium (BldA) [Moles/Vol] 3.6 mmol/L Normal 3.5-5.3 [facility] Comment on above: Performed By: #### 9 2455-6 ####STEFANO TROY ([id number])[facility] ([facility] [place], [place])[address] [place] [address] Sodium (BldA) [Moles/Vol] 138 mmol/L Normal 136-145 [facility] Comment on above: Performed By: #### 9 3775-6 ####STEFANO TROY ([id number])[facility] ([facility] [place], [place])[address] [place] [address] Anion gap 4 (BldA) [Moles/Vol] 13 mmo/L Normal 10-25 [facility] Comment on above: Performed By: #### 9 3685-6 ####STEFANO TROY ([id number])[facility] ([facility] [place], [place])[address] [place] [address] Base excess Calc (Bld) [Moles/Vol] -2.0000 mmol/L Normal -2.0-3.0 [facility] Comment on above: Performed By: #### 9 3685-6 ####STEFANO TROY ([id number])[facility] ([facility] – [place], [place])[address] [place] [address] Calcium.ionized (BldA) [Moles/Vol] 1.23 mmol/L Normal 1.10-1.33 [facility] Comment on above: Performed By: #### 9 3685-6 ####STEFANO TROY ([id number])[facility] ([facility] – [place], [place])[address] [place] [address] Chloride (BldA) [Moles/Vol] 107 mmol/L Normal 98-107 [facility] Comment on above: Performed By: #### 9 3685-6 ####STEFANO TROY ([id number])[facility] ([facility] [place], [place])[address] [id number] CO2 (Bld) [Partial pressure] 35 mm Hg Low 38-42 [facility] Comment on above: Performed By: #### 9 3685-6 ####STEFANO TROY ([id number])[facility] ([facility] [place], [place])[address] [id number] Glucose [Mass/Vol] 127 mg/dL High 74-99 [facility] Comment on above: Performed By: #### 9 3685-6 ####STEFANO TROY ([id number])[facility] ([facility] [place], [place])[address] [id number] HCO3 (Bld) [Moles/Vol] 22.2 mmol/L Normal 22.0-26.0 [facility] Comment on above: Performed By: #### 9 3685-6 ####STEFANO TROY ([id number])[facility] ([facility] [place], [place])[address] [place] [address] Hematocrit Est (Bld) [Volume fraction] 36.0 % Normal 36.0-46.0 [facility] Comment on above: Performed By: #### 9 3685-6 ####STEFANO TROY ([id number])[facility] ([facility] [place], [place])[address] [place] [address] Inhaled oxygen concentration 60 % Normal [facility] Comment on above: Performed By: #### 9 3685-6 ####STEFANO TROY ([id number])[facility] ([facility] [place] [place])[address] [place] [id number] Lactate (BldA) [Moles/Vol] 1.5 mmol/L Normal 0.4-2.0 [facility] Comment on above: Performed By: #### 9 3685-6 ####STEFANO TROY ([id number])[facility] ([facility] [place] [place])[address] [place] [phone] Oxygen (Bld) [Partial pressure] 225 mm Hg High 85-95 [facility] Comment on above: Performed By: #### 9 3685-6 ####STEFANO TROY ([id number])[facility] ([facility] [place], [place])[address] [place], [place] [address] pH (Bld) 7.41 [pH] Normal 7.38-7.42 [facility] Comment on above: Performed By: #### 9 3685-6 ####STEFANO TORY ([id number])[facility] ([facility] [place] [place])[address] [place] [phone] Potassium (BldA) [Moles/Vol] 3.6 mmol/L Normal 3.5-5.3 [facility] Comment on above: Performed By: #### 9 3685-6 ####STEFANO TROY ([id number])[facility] ([facility] [place] [place])[address] [place] [address] Sodium (BldA) [Moles/Vol] 139 mmol/L Normal 136-145 [facility] Comment on above: Performed By: #### 9 7845-6 ####STEFANO TROY ([id number])[facility] ([facility] [place] [place])[address] [place] [address] Gas panel (BldV)on 4 Anion gap 4 (BldV) [Moles/Vol] 11.0 mmol/L Normal 10.0-25.0 [facility] Comment on above: Performed By: #### 2 4339-4 ####STEFANO TROY ([id number])[facility] ([facility] [place] [place])[address] [place], [place] [address] Base excess Calc (BldV) [Moles/Vol] -0.5000 mmol/L Normal -2.0-3.0 [facility] Comment on above: Performed By: #### 2 4339-4 ####STEFANO TROY ([id number])[facility] ([facility] [place] [place])[address] [place] [address] Calcium.ionized (BldV) [Moles/Vol] 1.13 mmol/L Normal 1.10-1.33 [facility] Comment on above: Performed By: #### 2 4339-4 ####STEFANO TROY ([id number])[facility] ([facility] [place], [place])[address] [place], [place] [address] Chloride (BldV) [Moles/Vol] 106 mmol/L Normal 98-107 [facility] Comment on above: Performed By: #### 2 4339-4 ####STEFANO TROY ([id number])[facility] ([facility] [place], [place])[address] [place], [place] [address] CO2 (BldV) [Partial pressure] 39 mm Hg Low 41-51 [facility] Comment on above: Performed By: #### 2 4339-4 ####STEFANO TROY ([id number])[facility] ([facility] [place] [place])[address] [place], [place] [address] Glucose [Mass/Vol] 176 mg/dL High 74-99 [facility] Comment on above: Performed By: #### 2 4339-4 ####STEFANO TROY ([id number])[facility] ([facility] [place], [place])[address] [place], [place] [address] HCO3 (Bld) [Moles/Vol] 24.2 mmol/L Normal 22.0-26.0 [facility] Comment on above: Performed By: #### 2 4339-4 ####STEFANO TROY ([id number])[facility] ([facility] [place] [place])[address] [place] [address] Hematocrit Est (Bld) [Volume fraction] 26.0 % Low 36.0-46.0 [facility] Comment on above: Performed By: #### 2 4339-4 ####STEFANO TROY ([id number])[facility] ([facility] [place] [place])[address] [place] [phone] Hemoglobin (Bld) [Mass/Vol] 8.7 g/dL Low 12.0-16.0 [facility] Comment on above: Performed By: #### 2 4339-4 ####STEFANO TROY ([id number])[facility] ([facility] [place] [place])[address] [place] [address] Inhaled oxygen concentration 75 % Normal [facility] Comment on above: Performed By: #### 2 4339-4 ####STEFANO TROY ([id number])[facility] ([facility] [place] [place])[address] [place] [address] Lactate (BldV) [Moles/Vol] 1.1 mmol/L Normal 0.4-2.0 [facility] Comment on above: Performed By: #### 2 4339-4 ####STEFANO TROY ([id number])[facility] ([facility] [place] [place])[address] [place] [address] Oxygen (BldV) [Partial pressure] 53 mm Hg High 35-45 [facility] Comment on above: Performed By: #### 2 4339-4 ####STEFANO TROY ([id number])[facility] ([facility] [place] [place])[address] [place] [address] Oxygen saturation in Venous blood 88 % High 45-75 [facility] Comment on above: Performed By: #### 2 4339-4 ####STEFANO TROY ([id number])[facility] ([facility] [place] [place])[address] [place] [address] Oxyhemoglobin (BldV) [Mass fraction] 86.3 % High 45.0-75.0 [facility] Comment on above: Performed By: #### 2 4339-4 ####STEFANO TROY ([id number])[facility] ([facility] [place] [place])[address] [place] [address] pH (BldV) 7.40 [pH] Normal 7.33-7.43 [facility] Comment on above: Performed By: #### 2 4339-4 ####STEFANO TROY ([id number])[facility] ([facility] [place] [place])[address] [place], [place] [address] Potassium (BldV) [Moles/Vol] 5.3 mmol/L Normal 3.5-5.3 [facility] Comment on above: Performed By: #### 2 4339-4 ####STEFANO TROY ([id number])[facility] ([facility] [place] [place])[address] [place] [address] Sodium (BldV) [Moles/Vol] 136 mmol/L Normal 136-145 [facility] Comment on above: Performed By: #### 2 4339-4 ####STEFANO TROY ([id number])[facility] ([facility] [place] [place])[address] [place] [phone] Glucose Test strip manual (B ld) [Mass/Vol]on 08-10-2024 Glucose [Mass/Vol] 173 mg/dL High 74-99 [facility] Comment on above: Performed By: #### 2 341-6 ####STEFANO TROY ([id number])[facility] ([facility] [place] [place])[address] [place] [address] Glucose [Mass/Vol] 182 mg/dL High [address] [place] [address] Comment on above: Performed By: #### 2 341-6 ####STEFANO TROY ([id number])[facility] ([facility] [place] [place])[address] [place] [phone] Glucose [Mass/Vol] 167 mg/dL High 74-99 [facility] Comment on above: Performed By: #### 2 341-6 ####STEFANO TROY ([id number])[facility] ([facility] [place] [place])[address] [place] [address] Glucose [Mass/Vol] 113 mg/dL High 74-99 [facility] Comment on above: Performed By: #### 2 341-6 ####STEFANO TROY ([id number])[facility] ([facility] [place], [place])[address] [place] [address] Magnesiumon 08-10-2024 Magnesium [Mass/Vol] 2.39 mg/dL Normal 1.60-2.40 [facility] Comment on above: Order Comment: On ad kareem to ICU Performed By: #### 1 9123-9 ####STEFANO TROY ([id number])[facility] ([facility] [place], [place])[address] [place] [address] PT Coag (PPP) [Time]on 08-10 INR Coag (PPP) [Relative time] 1.7 High 0.9-1.1 [facility] Comment on above: Performed By: #### 5 902-2 ####STEFANO TROY ([id number])[facility] ([facility] [place], [place])[address] [place] [address] PT and aPTT panel Coag (PPP) on 08-10-2024 aPTT Coag (PPP) [Time] 27 s Normal 27-38 [facility] Comment on above: Order Comment: The A PTT is no longer used for monitoring Unfractionated Heparin Therapy. For monitoring Heparin Therapy, use the Heparin Assay. Performed By: #### 3 4529-8 ####STEFANO TROY ([id number])[facility] ([facility] [place], [place])[address] [place] [address] INR Coag (PPP) [Relative time] 1.3 High 0.9-1.1 [facility] Comment on above: Order Comment: The A PTT is no longer used for monitoring Unfractionated Heparin Therapy. For monitoring Heparin Therapy, use the Heparin Assay. Performed By: #### 3 4529-8 ####STEFANO TROY ([id number])[facility] ([facility] [place] [place])[address] [place] [address] PT Coag (PPP) [Time] 14.5 s High 9.8-12.8 [facility] Comment on above: Order Comment: The A PTT is no longer used for monitoring Unfractionated Heparin Therapy. For monitoring Heparin Therapy, use the Heparin Assay. Performed By: #### 3 4529-8 ####STEFANO TROY ([id number])[facility] ([facility] [place] [place])[address] [place] [address] Renal function 2000 panelon 08-10-2024 Albumin BCP dye [Mass/Vol] 3.4 g/dL Normal 3.4-5.0 [facility] Comment on above: Order Comment: On ad kareem to ICU Performed By: #### 2 4362-6 ####STEFANO TROY ([id number])[facility] ([facility] [place] [place])[address] [place] [address] Anion gap [Moles/Vol] 10 mmol/L Normal 10-20 [facility] Comment on above: Order Comment: On ad kareem to ICU Performed By: #### 2 4362-6 ####STEFANO TROY ([id number])[facility] ([facility] [place] [place])[address] [place] [address] Calcium [Mass/Vol] 7.3 mg/dL Low 8.6-10.3 [facility] Comment on above: Order Comment: On ad kareem to ICU Performed By: #### 2 4362-6 ####STEFANO TROY ([id number])[facility] ([facility] [place] [place])[address] [place] [address] Chloride [Moles/Vol] 112 mmol/L High 98-107 [facility] Comment on above: Order Comment: On ad kareem to ICU Performed By: #### 2 4362-6 ####STEFANO TROY ([id number])[facility] ([facility] [place] [place])[address] [place] [address] CO2 [Moles/Vol] 23 mmol/L Normal 21-32 [facility] Comment on above: Order Comment: On ad kareem to ICU Performed By: #### 2 4362-6 ####STEFANO TROY ([id number])[facility] ([facility] [place] [place])[address] [place] [address] Creatinine [Mass/Vol] 0.73 mg/dL Normal 0.50-1.05 [facility] Comment on above: Order Comment: On ad kareem to ICU Performed By: #### 2 4362-6 ####STEFANO TROY ([id number])[facility] ([facility] [place] [place])[address] [place] [address] Glomerular filtration rate/1.73 sq M.predicted 86 mL/min/1.73m*2 Normal >60 [facility] Comment on above: Order Comment: On ad kareem to ICU Result Comment: Calc ulations of estimated GFR are performed using the 2020 CKD-EPI Study Refit equation without the race variable for the IDMS-Traceable creatinine methods.https://jasn.asnjournals.org/content/early/ /ASN.1224666938 Performed By: #### 2 4362-6 ####STEFANO TROY ([id number])[facility] ([facility] [place] [place])[address] [place] [address] Glucose [Mass/Vol] 180 mg/dL High 74-99 [facility] Comment on above: Order Comment: On ad kareem to ICU Performed By: #### 2 4362-6 ####STEFANO TROY ([id number])[facility] ([facility] [place] [place])[address] [place] [address] Phosphate [Mass/Vol] 3.0 mg/dL Normal 2.5-4.9 [facility] Comment on above: Order Comment: On ad kareem to ICU Result Comment: The performance characteristics of phosphorus testing in heparinized plasma have been validated by the individual laboratory site where testing is performed. Testing on heparinized plasma is not approved by the FDA; however, such approval is not necessary. Performed By: #### 2 4362-6 ####STEFANO TROY ([id number])[facility] ([facility] [place] [place])[address] [place] [address] Potassium [Moles/Vol] 3.6 mmol/L Normal 3.5-5.3 [facility] Comment on above: Order Comment: On ad kareem to ICU Performed By: #### 2 4362-6 ####STEFANO TROY ([id number])[facility] ([facility] [place] [place])[address] [place] [phone] Sodium [Moles/Vol] 141 mmol/L Normal 136-145 [facility] Comment on above: Order Comment: On ad kareem to ICU Performed By: #### 2 4362-6 ####STEFANO TROY ([id number])[facility] ([facility] [place] [place])[address] [place] [address] Urea nitrogen [Mass/Vol] 21 mg/dL Normal 6-23 [facility] Comment on above: Order Comment: On ad kareem to ICU Performed By: #### 2 4362-6 ####STEFANO TROY ([id number])[facility] ([facility] [place] [place])[address] [place] [address] Surgical pathology studyon 1 10-11-2023 Surgical pathology study [facility] Comment on above: Order Comment: Pre-o p diagnosis:Aneurysm of ascending aorta without rupture ([facility]) [I71.21] VERAB/VERIFY ABORHon 024 ABO group Nom (Bld) O [facility] Comment on above: Order Comment: Thi s is for confirming/verifying history of ABORh on file for transfusion of blood products. If this is not for transfusion, please order an ABO/RH [[id number]]. If you have any questions or unsure what to order, please call the blood bank. Performed By: #### V ERAB ####STEFANO TROY ([id number])[facility] ([facility])[address] [place] [address] US D Ag Ql (Bld) Positive [facility] Comment on above: Order Comment: Thi s is for confirming/verifying history of ABORh on file for transfusion of blood products. If this is not for transfusion, please order an ABO/RH [[id number]]. If you have any questions or unsure what to order, please call the blood bank. Performed By: #### V ERAB ####STEFANO RTOY ([id number])[facility] ([facility]BB)[address] [place] [address] US XR CHEST 1 VIEWon 08-10-2024 XR CHEST 1 VIEW Normal [facility] Comment on above: Order Comment: Rafaelherminio dave in ICU Order Comment: On ar rival to ICU Blood type and Indirect anti body screen panel (Bld)on 07-29-2024 ABO group Nom (Bld) O [facility] Comment on above: Performed By: #### 5 8410-2 #### ZABRINA Villalba ([id number]) [facility] ([facility]) [address] [place] [address] Blood group antibody screen Ql Negative [facility] Comment on above: Performed By: #### 5 8410-2 #### ZABRINA POLANCO L ([id number]) [facility] ([facility]) [address] [place] [address] D Ag Ql (Bld) Positive [facility] Comment on above: Result Comment: 2nd ABO test required. Order and Collect VERAB Performed By: #### 5 8410-2 #### ZABRINA Villalba ([id number]) [facility] ([facility]) [address] [place] [address] C reactive proteinon 024 CRP [Mass/Vol] mg/L Normal <1.00 [facility] Comment on above: Performed By: #### 1 988-5 #### STEFANO TROY ([id number]) [facility] ([facility] [place] [place]) [address] [place], [place] [address] CBC W Auto Differential pane l (Bld)on 07-29-2024 Basophils (Bld) [#/Vol] 0.02 x10*3/uL Normal 0.00-0.10 [facility] Comment on above: Performed By: #### 5 7021-8 #### STEFANO TROY ([id number]) [facility] ([facility] [place] [place]) [address] [place] [id number] Basophils/100 WBC (Bld) 0.4 % Normal 0.0-2.0 [facility] Comment on above: Performed By: #### 5 7021-8 #### STEFANO TROY ([id number]) [facility] ([facility] [place] [place]) [address] [place] [address] Eosinophils (Bld) [#/Vol] 0.15 x10*3/uL Normal 0.00-0.40 [facility] Comment on above: Performed By: #### 5 7021-8 #### STEFANO TROY ([id number]) [facility] ([facility] [place] [place]) [address] [place] [address] Eosinophils/100 WBC (Bld) 2.7 % Normal 0.0-6.0 [facility] Comment on above: Performed By: #### 5 7021-8 #### STEFANO TROY ([id number]) [facility] ([facility] [place] [place]) [address] [place] [address] Erythrocyte distribution width (RBC) [Ratio] 13.2 % Normal 11.5-14.5 [facility] Comment on above: Performed By: #### 5 7021-8 #### STEFANO TROY ([id number]) [facility] ([facility] [place] [place]) [address] [place] [address] Hematocrit (Bld) [Volume fraction] 41.4 % Normal 36.0-46.0 [facility] Comment on above: Performed By: #### 5 7021-8 #### STEFANO TROY ([id number]) [facility] ([facility] [place] [place]) [address] [place] [phone] Hemoglobin (Bld) [Mass/Vol] 12.9 g/dL Normal 12.0-16.0 [facility] Comment on above: Performed By: #### 5 7021-8 #### STEFANO TROY ([id number]) [facility] ([facility] [place] [place]) [address] [place] [address] Immature granulocytes (Bld) [#/Vol] 0.02 x10*3/uL Normal 0.00-0.50 [facility] Comment on above: Performed By: #### 5 7021-8 #### STEFANO TROY ([id number]) [facility] ([facility] [place] [place]) [address] [place] [address] Immature granulocytes/100 WBC (Bld) 0.4 % Normal 0.0-0.9 [facility] Comment on above: Result Comment: Laurie ture Granulocyte Count (IG) includes promyelocytes, myelocytes and metamyelocytes but does not include bands. Percent differential counts (%) should be interpreted in the context of the absolute cell counts (cells/UL). Performed By: #### 5 7021-8 #### STEFANO TROY ([id number]) [facility] ([facility] [place] [place]) [address] [place] [address] Lymphocytes (Bld) [#/Vol] 1.79 x10*3/uL Normal 0.80-3.00 [facility] Comment on above: Performed By: #### 5 7021-8 #### STEFANO TROY ([id number]) [facility] ([facility] [place] [place]) [address] [place] [address] Lymphocytes/100 WBC (Bld) 32.5 % Normal 13.0-44.0 [facility] Comment on above: Performed By: #### 5 7021-8 #### STEFANO TROY ([id number]) [facility] ([facility] [place] [place]) [address] [place] [address] MCH (RBC) [Entitic mass] 29.3 pg Normal 26.0-34.0 [facility] Comment on above: Performed By: #### 5 7021-8 #### STEFANO TROY ([id number]) [facility] ([facility] [place] [place]) [address] [place] [address] MCHC (RBC) [Mass/Vol] 31.2 g/dL Low 32.0-36.0 [facility] Comment on above: Performed By: #### 5 7021-8 #### STEFANO TROY ([id number]) [facility] ([facility] [place] [place]) [address] [place] [address] MCV (RBC) [Entitic vol] 94 fL Normal 80-100 [facility] Comment on above: Performed By: #### 5 7021-8 #### STEFANO TROY ([id number]) [facility] ([facility] [place] [place]) [address] [place] [address] Monocytes (Bld) [#/Vol] 0.53 x10*3/uL Normal 0.05-0.80 [facility] Comment on above: Performed By: #### 5 7021-8 #### STEFANO TROY ([id number]) [facility] ([facility] [place] [place]) [address] [place] [phone] Monocytes/100 WBC (Bld) 9.6 % Normal 2.0-10.0 [facility] Comment on above: Performed By: #### 5 7021-8 #### STEFANO TROY ([id number]) [facility] ([facility] [place] [place]) [address] [place] [phone] Neutrophils (Bld) [#/Vol] 3.00 x10*3/uL Normal 1.60-5.50 [facility] Comment on above: Result Comment: Perc ent differential counts (%) should be interpreted in the context of the absolute cell counts (cells/uL). Performed By: #### 5 7021-8 #### STEFANO TROY ([id number]) [facility] ([facility] [place] [place]) [address] [place] [address] Neutrophils/100 WBC (Bld) 54.4 % Normal 40.0-80.0 [facility] Comment on above: Performed By: #### 5 7021-8 #### STEFANO TROY (49789) [facility] ([facility] [place] [place]) [address] [place] [address] Nucleated RBC/100 WBC (Bld) [Ratio] 0.0 /100 WBCs Normal 0.0-0.0 [facility] Comment on above: Performed By: #### 5 7021-8 #### STEFANO TROY ([id number]) [facility] ([facility] [place] [place]) [address] [place] [address] Platelets (Bld) [#/Vol] 317 x10*3/uL Normal 150-450 [facility] Comment on above: Performed By: #### 5 7021-8 #### STEFANO TROY ([id number]) [facility] ([facility] [place] [place]) [address] [place] [address] RBC (Bld) [#/Vol] 4.41 x10*6/uL Normal 4.00-5.20 [facility] Comment on above: Performed By: #### 5 7021-8 #### STEFANO TROY ([id number]) [facility] ([facility] [place] [place]) [address] [place] [address] WBC (Bld) [#/Vol] 5.5 x10*3/uL Normal 4.4-11.3 [facility] Comment on above: Performed By: #### 5 7021-8 #### STEFANO TROY ([id number]) [facility] ([facility] [place] [place]) [address] [place] [address] Comprehensive metabolic 2000 panelon 07-29-2024 Albumin BCP dye [Mass/Vol] 4.5 g/dL Normal 3.4-5.0 [facility] Comment on above: Performed By: #### 2 4323-8 #### STEFANO TROY ([id number]) [facility] ([facility] [place] [place]) [address] [place] [id number] ALP [Catalytic activity/Vol] 85 U/L Normal 33-136 [facility] Comment on above: Performed By: #### 2 4323-8 #### STEFANO TROY ([id number]) [facility] ([facility] [place] [place]) [address] [place] [id number] ALT With P-5'-P [Catalytic activity/Vol] 17 U/L Normal 7-45 [facility] Comment on above: Result Comment: [place] ents treated with Sulfasalazine may generate falsely decreased results for ALT. Performed By: #### 2 4323-8 #### STEFANO TROY ([id number]) [facility] ([facility] [place] [place]) [address] [place] [id number] Anion gap [Moles/Vol] 10 mmol/L Normal 10-20 [facility] Comment on above: Performed By: #### 2 4323-8 #### STEFANO TROY ([id number]) [facility] ([facility] – [place], [place]) [address] [place] [address] AST With P-5'-P [Catalytic activity/Vol] 18 U/L Normal 9-39 [facility] Comment on above: Performed By: #### 2 4323-8 #### STEFANO TROY ([id number]) [facility] ([facility] – [place], [place]) [address] [place] [address] Bilirubin [Mass/Vol] 0.7 mg/dL Normal 0.0-1.2 [facility] Comment on above: Performed By: #### 2 4323-8 #### STEFANO TROY ([id number]) [facility] ([facility] – [place], [place]) [address] [place] [address] Calcium [Mass/Vol] 9.6 mg/dL Normal 8.6-10.3 [facility] Comment on above: Performed By: #### 2 4323-8 #### STEFANO TROY ([id number]) [facility] ([facility] – [place], [place]) [address] [place] [address] Chloride [Moles/Vol] 104 mmol/L Normal 98-107 [facility] Comment on above: Performed By: #### 2 4323-8 #### STEFANO TROY ([id number]) [facility] ([facility] [place], [place]) [address] [place] [address] CO2 [Moles/Vol] 28 mmol/L Normal 21-32 [facility] Comment on above: Performed By: #### 2 4323-8 #### STEFANO TROY ([id number]) [facility] ([facility] [place], [place]) [address] [place] [address] Creatinine [Mass/Vol] 0.89 mg/dL Normal 0.50-1.05 [facility] Comment on above: Performed By: #### 2 4323-8 #### STEFANO TROY ([id number]) [facility] ([facility] [place], [place]) [address] [place] [address] Glomerular filtration rate/1.73 sq M.predicted 68 mL/min/1.73m*2 Normal >60 [facility] Comment on above: Result Comment: Calc ulations of estimated GFR are performed using the 2020 CKD-EPI Study Refit equation without the race variable for the IDMS-Traceable creatinine methods. https://jasn.asnjournals.org/content/ASN.956 2744225 Performed By: #### 2 4323-8 #### STEFANO TROY ([id number]) [facility] ([facility] [place], [place]) [address] [place] [address] Glucose [Mass/Vol] 105 mg/dL High 74-99 [facility] Comment on above: Performed By: #### 2 4323-8 #### STEFANO TROY ([id number]) [facility] ([facility] [place] [place]) [address] [place] [address] Potassium [Moles/Vol] 4.5 mmol/L Normal 3.5-5.3 [facility] Comment on above: Performed By: #### 2 4323-8 #### STEFANO TROY ([id number]) [facility] ([facility] [place] [place]) [address] [place] [address] Protein [Mass/Vol] 6.7 g/dL Normal 6.4-8.2 [facility] Comment on above: Performed By: #### 2 4323-8 #### STEFANO TROY ([id number]) [facility] ([facility] [place] [place]) [address] [place] [address] Sodium [Moles/Vol] 137 mmol/L Normal 136-145 [facility] Comment on above: Performed By: #### 2 4323-8 #### STEFANO TROY ([id number]) [facility] ([facility] [place] [place]) [address] [place] [address] Urea nitrogen [Mass/Vol] 29 mg/dL High 6-23 [facility] Comment on above: Performed By: #### 2 4323-8 #### STEFANO TROY ([id number]) [facility] ([facility] [place] [place]) [address] [place] [address] ECG 12-LEADon 07-29-2024 ECG 12-LEAD Ventricular Rate 59 Atrial Rate 59 P-R Interval 182 QRS Duration 86 Q-T Interval 428 QTC Calculation(Bazett) 423 P [place] 44 R [place] 2 T [place] 12 QRS Count 10 Q Onset 220 P Onset 129 P Offset 200 T Offset 434 QTC Fredericia 425 Diagnosis Sinus bradycardia Nonspecific ST and T wave abnormality Abnormal ECG No previous ECGs available Confirmed by Santo Hargrove ([id number]) on 07/29/2024 2:34:55 PM Normal [facility] PT and aPTT panel Coag (PPP) on 07-29-2024 aPTT Coag (PPP) [Time] 34 s Normal 27-38 Un [facility] Comment on above: Order Comment: The A PTT is no longer used for monitoring Unfractionated Heparin Therapy. For monitoring Heparin Therapy, use the Heparin Assay. Performed By: #### 3 4529-8 #### STEFANO TROY ([id number]) [facility] ([facility] [place] [place]) [address] [place] [address] INR Coag (PPP) [Relative time] 1.0 Normal 0.9-1.1 [facility] Comment on above: Order Comment: The A PTT is no longer used for monitoring Unfractionated Heparin Therapy. For monitoring Heparin Therapy, use the Heparin Assay. Performed By: #### 3 4529-8 #### STEFANO TROY ([id number]) [facility] ([facility] [place] [place]) [address] [place] [address] PT Coag (PPP) [Time] 11.2 s Normal 9.8-12.8 [facility] Comment on above: Order Comment: The A PTT is no longer used for monitoring Unfractionated Heparin Therapy. For monitoring Heparin Therapy, use the Heparin Assay. Performed By: #### 3 4529-8 #### STEFANO TROY ([id number]) [facility] ([facility] [place] [place]) [address] [place] [id number] Staphylococcus aureus.methic illin resistant isolateon 07-29-2024 MRSA isol Org specific cx Ql (Nose) Normal [facility] Comment on above: Performed By: #### 5 2969-3 ####ZABRINA Villalba ([id number])[facility] ([facility])[address] [place] [id number] Urinalysis complete W Reflex Culture panel (U)on 07-29-2024 Appearance (U) Clear Normal Clear [facility] Comment on above: Performed By: #### 5 8077-9 #### STEFANO TROY ([id number]) [facility] ([facility] [place] [place]) [address] [place] [address] Bilirubin (U) [Mass/Vol] Negative Normal NEGATIVE [facility] Comment on above: Performed By: #### 5 8077-9 #### STEFANO TROY ([id number]) [facility] ([facility] [place] [place]) [address] [place] [address] Color (U) Light-Yellow Normal Light-Yellow , Yellow, Dark-Yellow [facility] Comment on above: Performed By: #### 5 8077-9 #### STEFANO TROY ([id number]) [facility] ([facility] [place] [place]) [address] [place] [address] Epithelial cells.squamous Auto (Urine sed) [#/Area] 1-9 (SPARSE) Normal Reference range not established. [facility] Comment on above: Performed By: #### 5 8077-9 #### STEFANO TROY ([id number]) [facility] ([facility] [place] [place]) [address] [place] [address] Glucose Auto test strip (U) [Mass/Vol] Normal Normal Normal [facility] Comment on above: Performed By: #### 5 8077-9 #### STEFANO TROY ([id number]) [facility] ([facility] [place] [place]) [address] [place] [address] Ketones (U) [Mass/Vol] Negative Normal NEGATIVE [facility] Comment on above: Performed By: #### 5 8077-9 #### STEFANO TROY ([id number]) [facility] ([facility] [place] [place]) [address] [place] [address] Leukocyte esterase Auto test strip Ql (U) Negative Normal NEGATIVE [facility] Comment on above: Performed By: #### 5 8077-9 #### STEFANO TROY ([id number]) [facility] ([facility] [place] [place]) [address] [place] [address] Mucus Auto (Urine sed) [#/Area] FEW Normal Reference range not established. [facility] Comment on above: Performed By: #### 5 8077-9 #### STEFANO TROY ([id number]) [facility] ([facility] [place] [place]) [address] [place] [address] Nitrite Auto test strip Ql (U) Negative Normal NEGATIVE [facility] Comment on above: Performed By: #### 5 8077-9 #### STEFANO TROY ([id number]) [facility] ([facility] [place] [place]) [address] [place] [address] pH (U) 5.5 [pH] Normal 5.0, 5.5, 6.0, 6.5, 7.0, 7.5, 8.0 [facility] Comment on above: Performed By: #### 5 8077-9 #### STEFANO TROY ([id number]) [facility] ([facility] [place] [place]) [address] [place] [address] Protein (U) [Mass/Vol] 10 (TRACE) Normal NEGAT ELLEN, 10 (TRACE), 20 (TRACE) [facility] Comment on above: Performed By: #### 5 8077-9 #### STEFANO TROY ([id number]) [facility] ([facility] [place] [place]) [address] [place] [address] RBC (U) [#/Vol] Negative Normal NEGATIVE [facility] Comment on above: Performed By: #### 5 8077-9 #### STEFANO TROY ([id number]) [facility] ([facility] [place] [place]) [address] [place] [address] RBC Auto (Urine sed) [#/Area] 1-2 Normal NONE, 1-2, 3-5 [facility] Comment on above: Performed By: #### 5 8077-9 #### STEFANO TROY ([id number]) [facility] ([facility] [place] [place]) [address] [place] [address] Specific gravity (U) [Rel density] 1.029 Normal 1.005-1.035 [facility] Comment on above: Performed By: #### 5 8077-9 #### STEFANO TROY ([id number]) [facility] ([facility] [place] [place]) [address] [place] [phone] Urobilinogen (U) [Mass/Vol] Normal Normal Normal [facility] Comment on above: Performed By: #### 5 8077-9 #### STEFANO TROY ([id number]) [facility] ([facility] [place] [place]) [address] [place] [phone] WBC Auto (Urine sed) [#/Area] 1-5 Normal 1-5, NONE [facility] Comment on above: Performed By: #### 5 8077-9 #### STEFANO TROY ([id number]) [facility] ([facility] [place] [place]) [address] [place] [phone] XR CHEST 2 VIEWSon XR CHEST 2 VIEWS Normal [facility] DAVID SCREENING W TOMOon 07-23 DAVID SCREENING W OSVALDO * * *Final Report* * * DATE OF EXAM: Jul 23 2024 9:38AM WRW [id number] - DAVID SCREENING W OSVALDO / PROCEDURE REASON: Screening mammogram for breast cancer * * * * Physician Interpretation * * * * RESULT: [place] [address] HISTORY: Patient is 73 years old and [...] year. BI-RADS Category 2: Benign Interpreting Radiologist: Abraham Garrison M.D. Electronically signed on: 07/24/2024 Biscuit Packer: JOANN Transcribe Date/Time: Jul 23 2024 9:07A Dictated by: ABRAHAM GARRISON MD This examination was interpreted and the report reviewed and electronically signed by: ABRAHAM GARRISON MD on Jul 24 2024 4:33PM EST [id number] Normal [facility] CARDIAC CATHETERIZATION PROC EDUREon 06-09-2024 CARDIAC CATHETERIZATION PROCEDURE Normal [facility] Cardiac catheterization stud yon 06-09-2024 [facility], Family Court Counsellor, [address] [place] [address] Cardiovascular Catheterization Report Patient Name: KARLA CAI Performing Physician: [id number] Hendrix MD Study Date: 06/09/2024 Verifying Physician: Elizabeth Hendrix MD MRN/PID: [id number] Clinical Project Coordinator/Co-Scrub: Ordering Provider: [id number] GALLOWAY Date of /Age: 3 1950 / 73 years Clinical Project Coordinator: Gender: F Fellow: Surgeon: Study: Left Heart Cath Additional Study: Coronary Arteriogram Indications: KARLA CAI is a 74 year old female who [...] a modified Seldinger technique. Subsequently a 6 Belgian sheath was placed retrograde in the right [...] Patient counseled and advised to discontinue smoking. ___ (more content not included)... Flaquita Vega MD - 06/09/2024 [facility], Family Court Counsellor, [address] [place] [address] Cardiovascular Catheterization Report Patient Name: KARLA CAI Performing Physician: [id number] Hendrix MD Study Date: 06/09/2024 Verifying Physician: Elizabeth Hendrix MD MRN/PID: [id number] Clinical Project Coordinator/Co-Scrub: Ordering Provider: [id number] GALLOWAY Date of /Age: 3 1950 / 73 years Clinical Project Coordinator: Gender: F Fellow: Surgeon: Study: Left Heart Cath Additional Study: Coronary Arteriogram Indications: KARLA CAI is a 74 year old female who [...] a modified Seldinger technique. Subsequently a 6 Belgian sheath was placed retrograde in the right [...] Patient counseled and advised to discontinue smoking. CONCLUSIONS: 1. Left dominant coronary circulation with trivial diffuse non-obstructive CAD, as described above. 2. LVEDP 17 mm Hg. ICD 10 Codes: Aneurysm of the ascending aorta, without rupture-I71.21 CPT Codes: Left Heart Cath (visualization of coronaries) and LV-63598 57900 Car (more content not included)... [facility] Work Phone: Cardiac catheterization stud yOrdered By: Flaquita Hendrix on 06-09-2024 [facility] Work Phone: Basic metabolic 2000 panelon 06-03-2024 Anion gap [Moles/Vol] 14 mmol/L Normal 10-20 [facility] Comment on above: Performed By: #### 2 4321-2 #### ZABRINA Villalba ([id number]) [facility] ([facility]) [address] [place] [address] Calcium [Mass/Vol] 9.9 mg/dL Normal 8.6-10.6 [facility] Comment on above: Performed By: #### 2 4321-2 #### ZABRINA Villalba ([id number]) [facility] ([facility]) [address] [place] [address] Chloride [Moles/Vol] 103 mmol/L Normal 98-107 [facility] Comment on above: Performed By: #### 2 4321-2 #### ZABRINA Villalba ([id number]) [facility] ([facility]) [address] [place] [address] CO2 [Moles/Vol] 26 mmol/L Normal 21-32 [facility] Comment on above: Performed By: #### 2 4321-2 #### ZABRINA Villalba ([id number]) [facility] ([facility]) [address] [place] [address] Creatinine [Mass/Vol] 1.09 mg/dL High 0.50-1.05 [facility] Comment on above: Performed By: #### 2 4321-2 #### ZABRINA Villalba ([id number]) [facility] ([facility]) [address] [place] [address] Glomerular filtration rate/1.73 sq M.predicted 53 mL/min/1.73m*2 Low >60 [facility] Comment on above: Result Comment: Calc ulations of estimated GFR are performed using the 2020 CKD-EPI Study Refit equation without the race variable for the IDMS-Traceable creatinine methods. https://jasn.asnjournals.org/content/early//ASN.223 1551936 Performed By: #### 2 4321-2 #### ZABRINA Villalba ([id number]) [facility] ([facility]) [address] [place] [address] Glucose [Mass/Vol] 103 mg/dL High 74-99 [facility] Comment on above: Performed By: #### 2 4321-2 #### ZABRINA Villalba (85295) [facility] ([facility]) [address] [place] [address] Potassium [Moles/Vol] 4.2 mmol/L Normal 3.5-5.3 [facility] Comment on above: Performed By: #### 2 4321-2 #### ZABRINA POLANCO L ([id number]) [facility] ([facility]) [address] [place] [address] Sodium [Moles/Vol] 139 mmol/L Normal 136-145 [facility] Comment on above: Performed By: #### 2 4321-2 #### ZABRINA POLANCO L (43925) [facility] ([facility]) [address] [place] [address] Urea nitrogen [Mass/Vol] 32 mg/dL High 6-23 [facility] Comment on above: Performed By: #### 2 4321-2 #### ZABRINA Villalba (53644) [facility] ([facility]) [address] [place] [address] 1945[address] CBC panel Auto (Bld)on 06-03 Erythrocyte distribution width (RBC) [Ratio] 12.9 % Normal 11.5-14.5 [facility] Comment on above: Performed By: #### 5 8410-2 #### ZABRINA Villalba ([id number]) [facility] ([facility]) [address] [place] [address] Hematocrit (Bld) [Volume fraction] 41.8 % Normal 36.0-46.0 [facility] Comment on above: Performed By: #### 5 8410-2 #### ZABRINA Villalba ([id number]) [facility] ([facility]) [address] [place] [address] Hemoglobin (Bld) [Mass/Vol] 13.5 g/dL Normal 12.0-16.0 [facility] Comment on above: Performed By: #### 5 8410-2 #### ZABRINA Villalba ([id number]) [facility] ([facility]) [address] [place] [address]75 MCH (RBC) [Entitic mass] 30.1 pg Normal 26.0-34.0 [facility] Comment on above: Performed By: #### 5 8410-2 #### ZABRINA Villalba ([id number]) [facility] ([facility]) [address] [place] [address] MCHC (RBC) [Mass/Vol] 32.3 g/dL Normal 32.0-36.0 [facility] Comment on above: Performed By: #### 5 8410-2 #### ZABRINA Villalba ([id number]) [facility] ([facility]) [address] [place] [address]262 MCV (RBC) [Entitic vol] 93 fL Normal 80-100 [facility] Comment on above: Performed By: #### 5 8410-2 #### ZABRINA Villalba ([id number]) [facility] ([facility]) [address] [place] [address] Nucleated RBC/100 WBC (Bld) [Ratio] 0.0 /100 WBCs Normal 0.0-0.0 [facility] Comment on above: Performed By: #### 5 8410-2 #### ZABRINA Villalba ([id number]) [facility] ([facility]) [address] [place] [address] Platelets (Bld) [#/Vol] 364 x10*3/uL Normal 150-450 [facility] Comment on above: Performed By: #### 5 8410-2 #### ZABRINA Villalba (58446) [facility] ([facility]) [address] [place] [address] RBC (Bld) [#/Vol] 4.49 x10*6/uL Normal 4.00-5.20 [facility] Comment on above: Performed By: #### 5 8410-2 #### ZABRINA Villalba ([id number]) [facility] ([facility]) [address] [place] [address] WBC (Bld) [#/Vol] 6.3 x10*3/uL Normal 4.4-11.3 [facility] Comment on above: Performed By: #### 5 8410-2 #### ZABRINA Villalba ([id number]) [facility] ([facility]) [address] [place] [address] PT and aPTT panel Coag (PPP) on 06-03-2024 aPTT Coag (PPP) [Time] 36 s Normal 27-38 [facility] Comment on above: Order Comment: The A PTT is no longer used for monitoring Unfractionated Heparin Therapy. For monitoring Heparin Therapy, use the Heparin Assay. Performed By: #### 3 4529-8 #### ZABRINA Villalba ([id number]) [facility] ([facility]) [address] [place] [address] INR Coag (PPP) [Relative time] 1.0 Normal 0.9-1.1 [facility] Comment on above: Order Comment: The A PTT is no longer used for monitoring Unfractionated Heparin Therapy. For monitoring Heparin Therapy, use the Heparin Assay. Performed By: #### 3 4529-8 #### ZABRINA Villalba ([id number]) [facility] ([facility]) [address] [place] [address] PT Coag (PPP) [Time] 11.8 s Normal 9.8-12.8 [facility] Comment on above: Order Comment: The A PTT is no longer used for monitoring Unfractionated Heparin Therapy. For monitoring Heparin Therapy, use the Heparin Assay. Performed By: #### 3 4529-8 #### ZABRINA Villalba ([id number]) [facility] ([facility]) [address] [place] [address] TRANSTHORACIC ECHO (TTE) [facility] 06-03-2024 TRANSTHORACIC ECHO (TTE) COMPLETE [address] [address] and TRANSTHORACIC ECHOCARDIOGRAM REPORT Patient Name: KARLA Hancock Physician: [id number] Rob Jones MD Study Date: 06/03/2024 Ordering Provider: [id number] JOAQUIM GALLOWAY MRN/PID: [id number] Fellow: Nurse: Date of /Age: 3 1950 / 73 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: Yenny Vyas DEVON Gender: F Additional Staff: Height: 175.26 cm Admit Date: Weight: 78.02 kg Admission Status: Outpatient BSA / BMI: 1.94 m2 / 25.40 kg/m2 Blood Pressure: 120/63 mmHg Department Location: [facility] Study Type: TRANSTHORACIC ECHO (TTE) COMPLETE Diagnosis/ICD: Ascending aorta dilatation-I77.810; Nonrheumatic aortic (valve) insufficiency-I35.1; Nonrheumatic mitral (valve) insufficiency-I34.0 Indication: Asc AO Dilatation CPT Code: Echo Complete w Full Doppler-30898 Patient History: Pertinent History: HTN, ASC AO DILATATION. Study Detail: The following Echo studies were performed: 2D, M-Mode, Doppler and color flow. A bubble study was not performed. PHYSICIAN INTERPRETATION: Left Ventricle: The left ventricular systolic function is normal, with a visually estimated ejection fraction of 60-65%. There are no regional left ventricular wall motion abnormalities. The left ventricular cavity size is normal. Spectral Doppler shows an impaired relaxation pattern of left ventricular diastolic filling. Left Atrium: The left atrium is normal in size. A bubble study using agitated saline was not performed. Right Ventricle: The right ventricle is normal in size. There is low normal right ventricular systolic function. Right Atrium: The right atrium is normal in size. Aortic Valve: The aortic valve is trileaflet. The aortic valve dimensionless index is 0.72. There is trace aortic valve regurgitation. The peak instantaneous gradient of the aortic valve is 5.0 mmHg. The mean gradient of the aortic valve is 2.8 mmHg. Mitral Valve: The mitral valve is normal in structure. There is mild to moderate mitral valve regurgitation. Tricuspid Valve: The tricuspid valve is structurally normal. There is mild to moderate tricuspid regurgitation. The Doppler estimated RVSP is within normal limits at 29.0 mmHg. Pulmonic Valve: The pulmonic valve is structurally normal. There is physiologic pulmonic valve regurgitation. Pericardium: Trivial pericardial effusion. There is a pericardial fat pad present. Aorta: The aortic root is normal. The ascending thoracic aorta is aneurysmal measuring 5 cm in diameter. Recommend chest cta and/or mra of the chest for confirmation. In comparison to the previous echocardiogram(s): There are no prior studies on this patient for comparison purposes. CONCLUSIONS: 1. The left ventricular systolic function is normal, with a visually estimated ejection fraction of 60-65%. 2. Spectral Doppler shows an impaired relaxation pattern of left ventricular diastolic filling. 3. There is low normal right ventricular systolic function. 4. Mild to moderate mitral valve regurgitation. 5. Mild to moderate tricuspid regurgitation visualized. 6. Right ventricular systolic pressure is within normal limits. 7. The ascending thoracic aorta is aneurysmal measuring 5 cm in diameter. Recommend chest cta and/or mra of the chest for confirmation. QUANTITATIVE DATA SUMMARY: 2D MEASUREMENTS: Normal Ranges: LAs: 4.06 cm (2.7-4.0cm) IVSd: 0.86 cm (0.6-1.1cm) LVPWd: 0.88 cm (0.6-1.1cm) LVIDd: 4.83 cm (3.9-5.9cm) LVIDs: 3.43 cm LV Mass Index: 74 g/m2 LVEDV Index: 39 ml/m2 LV % FS 29.1 % LA VOLUME: Normal Ranges: LA Vol A4C: 40.3 ml (22+/-6mL/m2) LA Vol A2C: 32.7 ml LA Vol BP: 37.3 ml LA Vol Index A4C: 20.8ml/m2 LA Vol Index A2C: 16.9 ml/m2 LA Vol Index BP: 19.3 ml/m2 LA Area A4C: 16.0 cm2 LA Area A2C: 14.0 cm2 LA Major [place] A4C: 5.4 cm LA [place] A2C: 5.1 cm LA Volume Index: 19.3 ml/m2 LA Vol A4C: 36.9 ml LA Vol A2C: 31.0 ml LA Vol Index BSA: 17.5 ml/m2 RA VOLUME BY A/L METHOD: Normal Ranges: RA Area A4C: 15.4 cm2 AORTA MEASUREMENTS: Normal Ranges: Ao Sinus, d: 3.70 cm (2.1-3.5cm) Ao STJ, d: 3.20 cm (1.7-3.4cm) Asc Ao, d: 5.00 cm (2.1-3.4cm) LV SYSTOLIC FUNCTION BY 2D PLANIMETRY (MOD): Normal Ranges: EF-A4C View: 67 % (>=55%) EF-A2C View: 71 % EF-Biplane: 69 % EF-Visual: 63 % LV EF Reported: 63 % LV DIASTOLIC FUNCTION: Normal Ranges: MV Peak E: 0.49 m/s (0.7-1.2 m/s) MV Peak A: 0.74 m/s (0.42-0.7 m/s) E/A Ratio: 0.67 (1.0-2.2) MV e' 0.070 m/s (>8.0) MV lateral e' 0.09 m/s MV medial e' 0.05 m/s E/e' Ratio: 7.06 (<8.0) MITRAL VALVE: Normal Ranges: MV DT: 352 msec (150-240msec) MITRAL INSUFFICIENCY: Normal Ranges: MR VTI: 158.58 cm MR Vmax: 483.44 cm/s AORTIC VALVE: Normal Ranges: AoV Vmax: 1.11 m/s (<=1.7m/s) AoV Peak P.0 mmHg (<20mmHg) AoV Mean P.8 mmHg (1.7-11.5mmHg) LVOT Max Ve (more content not included)... [facility] CNOVon 05-29-2024 CNOV Office Visit (INTMWS ) KARLA CAI ([id number]) 1950 F Date Time Provider Department 05/29/24 10:40 AM JAE BELCHER INTMWS During your visit today, we recorded the following information about you: Temperature Pulse Respiration Blood pressure 97.7 degrees 68/minute 18/minute 118/78 Weight 77.7 kg Jae Belcher MD 05/29/2024 2:00 PM Signed This note was created using [employer]. Subjective Patient presents with: F/U 3 Month Karla Shahnaz Cai is a 73 year old female. She was here for follow up of newly diagnosed diabetes. She was not on medication and had no symptoms of hyperglycemia. Her fasting glucoses have elevated but her A1C's continued to be borderline. She just finished cephalexin for urinary tract infection and symptoms were recurring. Urine culture was + E. Coli. She scraped her right knee and clark this Saturday getting off a boat. She was applying [employer]. Her vascular specialist referred her to in [place] for consideration of thoracic aneurysm repair. Review of Systems Constitutional: Negative for chills and fever. Respiratory: Negative for shortness of breath. Cardiovascular: Negative for chest pain and palpitations. Gastrointestinal: Negative for abdominal pain. Genitourinary: Negative for flank pain. 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 Biotin 10,000 mcg cap Take 1 capsule by mouth once daily. irbesartan (AVAPRO) 300 mg tablet Take 1 tablet by mouth once daily. pravastatin (PRAVACHOL) 20 mg tablet Take 1 tablet by mouth once daily. vit C/E/Zn/coppr/lutein/ze axan (PRESERVISION AREDS-2 ORAL) Take 1 tablet by mouth two times a day. spironolactone (ALDACTONE) 50 mg tablet Take 1 tablet by mouth once daily. Per [facility] VITAMIN A ORAL Take 400 mg by mouth once daily. olopatadine hcl(PATANOL 0.1 % EYE DROPS) 1 to 2 drops to each eye twice daily as needed hj-lww-szddz-calcium carb-K1 (WOMEN'S 50 PLUS MULTIVITAMIN) 400 mcg-500 mg calcium-20 mcg tab Take 1 tablet by mouth once daily. No current facility-administered medications for this visit. Objective BP 118/78 (BP Site: Left Arm, BP Position: Sitting, BP Cuff Size: Regular Adult) Pulse 68 Resp 18 Wt 77.7 kg (171 lb 4.8 oz) SpO2 94% BMI 26.05 kg/m? Physical Exam Constitutional: Appearance: Normal appearance. She is not ill-appearing. HENT: Head: Normocephalic. Cardiovascular: Rate and Rhythm: Normal rate and regular rhythm. Heart sounds: S1 normal and S2 normal. Murmur heard. Systolic murmur is present with a grade of 1/6. Comments: LLSB Pulmonary: Breath sounds: Normal breath sounds. Abdominal: Tenderness: There is no abdominal tenderness. There is no right CVA tenderness or left CVA tenderness. Musculoskeletal: Right lower leg: No edema. Left lower leg: No edema. Comments: Moist ovoid abrasion right knee 2 x 1 cm minimal marginal erythema. Moist linear abrasion right clark. Neurological: Mental Status: She is alert. Latest Ref Rng 05/29/2024 Hemoglobin A1C (POCT) 4.3 - 5.6 % 5.9 ! Legend: ! Abnormal Assessment and Plan 1. Encounter for immunization - ICD9: V03.89, ICD10: Z23 (primary diagnosis) - INFLUENZA VACCINE, PRSV FREE, AGE 65+ YR, HIGH DOSE, TRIVALENT (FLUZONE HIGH-DOSE) 2. Burning with urination - ICD9: 788.1, ICD10: R30.0 acute - UA DIP B/O - CEPHALEXIN 500 MG CAPSULE. Repeat treatment TID x 7 days. 3. Abrasion of right lower extremity, initial encounter - ICD9: 916.0, ICD10: S80.811A - Continue self wound care. - Get Tdap booster at the pharmacy. 4. Controlled type 2 diabetes mellitus without complication, without long-term current use of insulin (HCC) - ICD9: 250.00, ICD10: E11.9 - Diet controlled - HEMOGLOBIN A1C (POC) - COMPREHENSIVE METABOLIC PANEL - LIPID PANEL BASIC - HEMOGLOBIN A1C - ALBUMIN/CREATININE RATIO, URINE 5. Aneurysm of ascending aorta without rupture (HCC) - ICD9: 441.2, ICD10: I71.21 - Evaluation ongoing at [facility]. Jae Belcher MD Allergies A (more content not included)... Normal [facility] HEMOGLOBIN A1C (POC)on 05-29 HbA1c (Bld) [Mass fraction] 5.9 % Abnormal 4.3 - 5.6 % [facility] Comment on above: Location:[address], [place], [address] Point of care (POC) Hemoglobin A1c (HGBA1C) testing is intended to assess glucose control and provide a management tool for patients known to have diabetes and their healthcare providers. Target HGBA1C levels may depend on specific clinical circumstances. POC HGBA1C is not intended for use as a diagnostic or screening test; laboratory-based testing should be used for diagnostic purposes. The following information is supplemental and may not be applicable to specific diabetes management situations: The POC device horticultural specialty grower field provides a normal range of 4.2% to 6.5% for the HGBA1C POC test. However, the [place] [employer] guidelines indicate that patients with HGBA1C in the range of 5.7% to 6.4% are at increased risk for development of diabetes and that intervention by lifestyle modification may be beneficial. A HGBA1C level greater than or equal to 6.5% is considered diagnostic of diabetes, pending confirmatory testing. Use of HGBA1C testing to evaluate glucose control may not be appropriate for patients with hemoglobin variants or other conditions (e.g. anemia) that alter red blood cell lifespan. Interpretation and review of laboratory results Abnormal [facility] UA DIP, URINE (POC)on 2023 BILIRUBIN UA (POCT) Negative Negative [facility] CLARITY UA (POCT) [facility] COLOR UA (POCT) Other [facility] GLUCOSE UA (POCT) Negative Negative mg/dL [facility] Hemoglobin Ql (U) Trace-intact Abnormal Negative [facility] Interpretation and review of laboratory results Abnormal [facility] KETONE UA (POCT) Trace Negative mg/dL [facility] LEUKOCYTES UA (POCT) Small Abnormal Negative [facility] NITRITE UA (POCT) Negative Negative [facility] PH UA (POCT) 5.5 4.5 - 8.0 [facility] Protein Ql (U) 100 mg/dL Abnormal Negative [facility] SPECIFIC GRAVITY UA (POCT) >=1.030 1.005 - 1.030 [facility] UROBILINOGEN UA (POCT) 0.2 Ashley l E.U./dL [facility] Location:[address], [place], [address] [facility] POINT OF CARE [facility] [place] 05-23-2024 [facility] Telephone (RUSTTR) KARLA CAI ([id number]) 1950 F Date Time Provider Department 05/23/24 CLARIBEL HOOPER [facility] During your visit today, we recorded the following information about you: Claribel Hooper APRN.SURGICAL ONCOLOGIST 05/23/2024 3:17 PM Signed Please call patient and let her know she is on the correct antibiotic according to urine culture. Please let her know if her symptoms are not improving she needs to follow-up with primary care. Elizabeth Dash MA 05/23/2024 3:30 PM Signed Left message for patient to return call. CAMDEN Mahan Brittany L, MA 05/25/2024 1:45 PM Signed Patient active MyChart. Patient notified via [employer] message. Chad Delgado MA Allergies As of Date: 05/23/2024 Noted Allergy Reaction ADHESIVE 11/06/2018 2 - Rash Comments: Redness, swelling, blisters MELOXICAM 01/02/2024 17 - Myalgia Comments: Kidney damage HOUSE DUST MITE 08/26/2023 3 - Cough LISINOPRIL 03/09/2010 3 - Cough NORVASC (AMLODIPINE BESYLATE) 01/30/2010 7 - Swelling Comments: pedal edema Date Reviewed: 05/20/2024 Reviewed by: Elizabeth Dash MA - Fully Assessed Reason for Visit: Results [95] Prescriptions as of 05/25/2024 - cephALEXin (KEFLEX) 500 mg capsule Take 1 capsule by mouth two times a day for 7 days. - metoprolol succinate ER (TOPROL XL) 100 mg Take 1 tablet by mouth once daily. - Biotin 10,000 mcg cap Take 1 capsule by mouth once daily. - irbesartan (AVAPRO) 300 mg tablet Take 1 tablet by mouth once daily. - pravastatin (PRAVACHOL) 20 mg tablet Take 1 tablet by mouth once daily. - vit C/E/Zn/coppr/lutein/ze axan (PRESERVISION AREDS-2 ORAL) Take 1 tablet by mouth two times a day. - spironolactone (ALDACTONE) 50 mg tablet Take 1 tablet by mouth once daily. Per [facility] - VITAMIN A ORAL Take 400 mg by mouth once daily. - olopatadine hcl(PATANOL 0.1 % EYE DROPS) 1 to 2 drops to each eye twice daily as needed Problem List As Of Date 05/23/2024 Noted Resolved Essential Hypertension, Benign [I10] 06/21/2009 [...] rupture (HC*08/27/2018 Impaired fasting glucose [R73.01] 07/27/2019 Diverticulosis [K57.90] 07/27/2019 08/26/2023 Overweight (BMI 25.0-29.9) [E66.3] 08/22/2021 Osteopenia [M85.80] 08/26/2023 Mitral valve insufficiency [I34.0] 11/29/2022 Diagnosed: 08/26/2023 Arthritis of metatarsophalangeal (MTP) joint of*08/30/2020 Elevated LDL cholesterol level [E78.00] 09/04/2023 Chronic kidney insufficiency [N18.9] 10/17/2023 Encounter Status:Closed by CHAD DELGADO on 05/25/24 Normal [facility] Echocardiogram Non Bill Outs adam Study Onlyon 05-22-2024 Study performed outside the system. Official study report is not available here and may be obtained from the performing facility. [facility] Work Phone: Bacteria Ur Culton 4 Bacteria identified Cx Nom (U) ORGANISM ID: 1 >=100,000 CFU/ml Escherichia coli ORGANISM ID: 1 (ESCHERICHIA COLI) -- ANTIBIOTIC INTERPRETATION KAUSHIK STATUS REFERENCE RANGE -- Ampicillin S 8 F Susceptible <=8 , Intermediate >8 , Resistant >16 Cefazolin S <=4 F Susceptible 0-16 , Intermediate <0 or >16 , Resistant >16 For uncomplicated urinary tract infections, cefazolin results can be used to predict susceptibility or resistance to cephalexin. Ceftriaxone S <=1 F Susceptible <=1 , Intermediate >1 , Resistant >=4 Cefepime S <=1 F Susceptible <=2 , Susceptible-Dose Dependent >2 , Resistant >=16 Ertapenem S <=0.5 F Susceptible <=0.5 , Intermediate >.5 , Resistant >1 Meropenem S <=0.25 F Susceptible <=1 , Intermediate >1 , Resistant >2 Ampicillin/Sulbact S 4 F Susceptible <=8 , Intermediate >8 , Resistant >16 Piperacillin/Tazobac S <=4 F Susceptible <16 , Susceptible-Dose Dependent >=16 , Resistant >=32 Gentamicin S <=1 F Susceptible <=2 , Intermediate >2 , Resistant >=8 Tobramycin S <=1 F Susceptible <4 , Intermediate >=4 , Resistant >=8 Trimeth sulfameth S <=20 F Susceptible <=40 , Resistant >40 Ciprofloxacin S <=0.25 F Susceptible <0.5 , Intermediate >=.5 , Resistant >=1 Nitrofurantoin S <=16 F Susceptible <=32 , Intermediate >32 , Resistant >64 Abnormal [facility] Comment on above: Performed By: #### 6 30-4 #### [facility] CLIA [id number] [address] [place] [address] STATES OF [facility] CNOVon 05-20-2024 CNOV Office Visit (UCWSTR ) KARLA CAI ([id number]) 1950 F Date Time Provider Department 05/20/24 11:45 AM TORRI FERRER WS During your visit today, we recorded the following information about you: Temperature Pulse Respiration Blood pressure 98.7 degrees 68/minute 16/minute 124/70 Weight 79.6 kg Torri Ferrer PA 05/20/2024 11:40 AM Signed This note was created using [employer]. Subjective Karla Cai is a 73 year old female. HPI 73-year-old female presents for urinary frequency, urgency, burning. Patient states symptoms have been going on for about a week. She states they resolved while she was taking Azo, but when she stopped taking it, they returned. She has not taken Azo for about 3 days now. She has not seen any blood in the urine. No abdominal pain, back pain, fevers, vomiting. She does have history of UTIs in the past, but none recently. She states that she does have CKD as well. No other complaint. 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 03/2011: DCIS (ductal carcinoma in situ) No date: Diverticulitis 07/27/2019: Diverticulosis 07/26/2009: Eczematous dermatitis of eyelid No date: Essential hypertension, benign 08/27/2013: History of colonoscopy with polypectomy Comment: tubular adenoma, patient prefers prep with least amount of sodium 07/27/2019: Impaired fasting glucose 11/29/2022: Mitral valve insufficiency 08/26/2023: Osteopenia PAST SURGICAL HISTORY 1986: BIOPSY BREAST OPEN INCISIONAL Comment: Left Breast cyst 03/07/2011: BX BREAST PERC VACUUM/ROTN Comment: Right - DCIS 2003: COLONOSCOPY Comment: Per HM repeat in 10 yrs (-2013) 08/08/2018: COLONOSCOPY FLX DX W/COLLJ SPEC WHEN PFRMD Comment: Colonoscopy, patient prefers prep with least amount of sodium 12/15/1997: DIAGNOSIS/HISTORY; Left Comment: acoustic neuroma unilateral, 47 04/12/2011: EXC BREAST LES PREOP PLMT RAD MARKER OPEN 1 LES Comment: RIght Needle Loc - Excisional 10/10/2013: EYE SURGERY HX Comment: right/left cararact surgery 1999: HEMORRHOIDECTOMY XTRNL 2/> COLUMN/GROUP 1992: PUNCTURE ASPIRATION CYST BREAST Comment: Right breast 10/10/2000: VAGINAL HYSTERECTOMY UTERUS 250 GM/< Comment: Hysterectomy, vaginal ALLERGIES Adhesive, Meloxicam, House Dust Mite, Lisinopril, and Norvasc [Amlodipine Besylate] MEDICATIONS metoprolol succinate ER (TOPROL XL) 100 mg Take 1 tablet by mouth once daily. Biotin 10,000 mcg cap Take 1 capsule by mouth once daily. irbesartan (AVAPRO) 300 mg tablet Take 1 tablet by mouth once daily. pravastatin (PRAVACHOL) 20 mg tablet Take 1 tablet by mouth once daily. vit C/E/Zn/coppr/lutein/ze axan (PRESERVISION AREDS-2 ORAL) Take 1 tablet by mouth two times a day. spironolactone (ALDACTONE) 50 mg tablet Take 1 tablet by mouth once daily. Per [facility] VITAMIN A ORAL Take 400 mg by mouth once daily. olopatadine hcl(PATANOL 0.1 % EYE DROPS) 1 to 2 drops to each eye twice daily as needed cephALEXin (KEFLEX) 500 mg capsule Take 1 capsule by mouth two times a day for 7 days. FAMILY HISTORY Problem Relation Age of Onset [...] per week Comment: 1-2/week Drug use: No Review of Systems Constitutional: Negative for chills and fever. HENT: Negative for congestion, ear pain and sore throat. Respiratory: Negative for cough and shortness of breath. Cardiovascular: Negative for chest pain. Gastrointestinal: Negative for abdominal pain, diarrhea and vomiting. Genitourinary: Positive for dysuria, frequency and urgency. Negative for hematuria. Objective BP 124/70 Pulse 68 Temp 37.1 ?C (98.7 ?F) Resp 16 Wt 79.6 kg (175 lb 7.8 oz) SpO2 97% BMI 26.68 kg/m? Physical Exam Vitals and nursing note reviewed. Constitutional: General: She is not in acute distress. Appearance: Normal appearance. She is not toxic-appearing. Cardiovascular: Rate and Rhythm: Normal rate and regular rhythm. Pulmonary: (more content not included)... Normal [facility] UA DIP, URINE (POC)on 2023 BILIRUBIN UA (POCT) Small Abnormal Negative [facility] CLARITY UA (POCT) [facility] COLOR UA (POCT) Dark yellow [facility] GLUCOSE UA (POCT) Negative Negative mg/dL [facility] Hemoglobin Ql (U) Large Abnormal Negative [facility] Interpretation and review of laboratory results Abnormal [facility] KETONE UA (POCT) Trace Negative mg/dL [facility] LEUKOCYTES UA (POCT) Small Abnormal Negative [facility] NITRITE UA (POCT) Negative Negative [facility] PH UA (POCT) 5.5 4.5 - 8.0 [facility] Protein Ql (U) >=300 Abnormal Negative mg/dL [facility] SPECIFIC GRAVITY UA (POCT) >=1.030 1.005 - 1.030 [facility] UROBILINOGEN UA (POCT) 0.2 Ashley l E.U./dL [facility] Location:[facility], [address], [place], [address] [facility] POINT OF CARE [facility] CTA Chst, Abd, Pel W and/or WOon 05-05-2024 CTA Chst, Abd, Pel W and/or WO [facility] [address] [place] [address] CTA Chst, Abd, Pel W and/or WO MR#: [id number] Acct: [id number] Name: KARLA CAI Rep #: [id number] : 1950 F 73 From: Tan lechuga MD PCP: Dr. Jae Belcher MD Status: REG CLI Study: CTA Chst, Abd, Pel W and/or WO Date of Exam: 0 05/05/24 Exam# [id number] Ordering Dr: Roman Alberto MD [id number] INDICATION: aortic aneurysm EXAMINATION: CTA CHEST, ABDOMEN AND PELVIS WITH CONTRAST - TECHNIQUE: A CTA of the chest, abdomen, and pelvis is obtained with sagittal and coronal reconstructed MIP views. Three-dimensional surface rendered sequence of the thoracic and abdominal aorta was obtained. A radiation dose optimization technique was used for this scan. 75 mL of Isovue-370. Oral contrast: None. COMPARISON: None. FINDINGS: CT CHEST: THORACIC AORTA: There is aneurysmal dilatation at the root of the ascending thoracic aorta. This measures 48.8 mm. This extends to the proximal portion of the aortic arch. ABDOMINAL AORTA: Atherosclerotic calcific plaques of the abdominal aorta. No evidence of abdominal aortic aneurysm. Mild calcific plaques seen in the common iliac arteries bilaterally. LUNGS: Mild increased markings at the lung bases suggestive of mild scarring. MEDIASTINUM: The thyroid gland is normal. No mediastinal or hilar adenopathy. HEART: Heart is normal size. No pericardial effusion. No coronary calcification is seen. CT ABDOMEN AND PELVIS: LIVER: The liver enhances homogeneously. No masses identified. GALLBLADDER: The CBD is normal. Normal gallbladder. SPLEEN: Normal. PANCREAS: No masses or inflammation. ADRENAL GLANDS: Normal. KIDNEYS AND URETERS: The kidneys both enhance appropriately. There are normal size and shape. No hydronephrosis or nephrolithiasis. Bilateral renal cysts. There is a dominant cyst in the anterior aspect of the right kidney measuring 5.1 cm x 5.7 cm. STOMACH: Normal. SMALL BOWEL: No abnormal distention of the small bowel. MESENTERY: No mesenteric inflammation. No ascites. COLON: Sigmoid diverticulosis. The colon otherwise is normal. There is a large fatty ileocecal valve. APPENDIX: The appendix is visualized and normal. IVC: Normal. RETROPERITONEUM: No retroperitoneal lymphadenopathy. PELVIC STRUCTURES: Normal bladder. Patient is status post hysterectomy. SOFT TISSUES ABDOMEN: The anterior abdominal wall is normal. SOFT TISSUE CHEST: The extrathoracic soft tissues are normal. BONES: Degenerative changes of the lumbar spine. CT/CTA Chst, Abd, Pel W and/or WO IMPRESSION: Aneurysmal dilatation of the root of the ascending thoracic aorta with a transverse dimension of 48.8 mm. No evidence of abdominal aortic aneurysm. Electronically Signed: Tan Willis MD at 10:58 EDT , CC: Dr. Roman Alberto MD; Dr. Jae Belcher MD Biscuit Packer: Signed Normal [facility] 03-23-2024 [facility] Telephone ([id number]) KARLA CAI ([id number]) 1950 F Date Time Provider Department 03/23/24 JAE BELCHER During your visit today, we recorded the following information about you: Mandie Recinos LPN 03/23/2024 8:13 AM Signed ----- Message from Jae Belcher MD sent at 03/21/2024 10:50 AM EDT ----- See comment. Within normal limits. Mandie Recinos LPN 03/23/2024 8:14 AM Signed Left a message for pt to call the office and ask to speak to a nurse. MARKOS Keith Beth, LPN 03/23/2024 8:42 AM Signed Patient returned call and went over ultrasound results from Dr Belcher with understanding. Patient concerned report says lesions in both kidneys one 2.0 cm and other 6.1 cm is that going to be a problem down the road? Jae Belcher MD 03/23/2024 8:08 PM Signed Kidney cysts are common, benign, and not expected to be an issue. These have been noted on CT scans as early as 2018. Teodoro Roca MA 03/24/2024 10:08 AM Signed Patient notified, verbalized understanding. Allergies As of Date: 03/23/2024 Noted Allergy Reaction ADHESIVE 11/06/2018 2 - Rash Comments: Redness, swelling, blisters MELOXICAM 01/02/2024 17 - Myalgia Comments: Kidney damage HOUSE DUST MITE 08/26/2023 3 - Cough LISINOPRIL 03/09/2010 3 - Cough NORVASC (AMLODIPINE BESYLATE) 01/30/2010 7 - Swelling Comments: pedal edema Date Reviewed: 02/25/2024 Reviewed by: Faiza Morgan LPN - Fully Assessed Reason for Visit: Results [95] Prescriptions as of 03/24/2024 - Biotin 10,000 mcg cap Take 1 capsule by mouth once daily. - irbesartan (AVAPRO) 300 mg tablet Take 1 tablet by mouth once daily. - pravastatin (PRAVACHOL) 20 mg tablet Take 1 tablet by mouth once daily. - vit C/E/Zn/coppr/lutein/ze axan (PRESERVISION AREDS-2 ORAL) Take 1 tablet by mouth two times a day. - metoprolol succinate ER (TOPROL XL) 100 mg Take 1 tablet by mouth once daily. - spironolactone (ALDACTONE) 50 mg tablet Take 1 tablet by mouth once daily. Per [facility] - VITAMIN A ORAL Take 400 mg by mouth once daily. - olopatadine hcl(PATANOL 0.1 % EYE DROPS) 1 to 2 drops to each eye twice daily as needed Problem List As Of Date 03/23/2024 Noted Resolved Essential Hypertension, Benign [I10] 06/21/2009 [...] rupture (HC*08/27/2018 Impaired fasting glucose [R73.01] 07/27/2019 Diverticulosis [K57.90] 07/27/2019 08/26/2023 Overweight (BMI 25.0-29.9) [E66.3] 08/22/2021 Osteopenia [M85.80] 08/26/2023 Mitral valve insufficiency [I34.0] 11/29/2022 Arthritis of metatarsophalangeal (MTP) joint of*08/30/2020 Elevated LDL cholesterol level [E78.00] 09/04/2023 Chronic kidney insufficiency [N18.9] 10/17/2023 Medications Discontinued During This Encounter Prescriptions - doxazosin (CARDURA) 2 mg tablet (Discontinued) Reported on 01/02/2024 Encounter Status:Closed by TEODORO ROCA on 03/24/24 Normal [facility] US KIDNEY/BLADDERon 03-19-20 US KIDNEY/BLADDER * * *Final Report* * * DATE OF EXAM: Mar 19 2024 9:39AM U 1055 - US KIDNEY/BLADDER / PROCEDURE REASON: Chronic renal impairment, stage 3a (HCC) * * * * Physician Interpretation * * * * EXAMINATION: RENAL ULTRASOUND CLINICAL HISTORY: Chronic kidney disease TECHNIQUE: Sonography of the kidneys and urinary bladder was performed. Images were obtained and stored in a permanent archive. MQ: [id number] COMPARISON: CT abdomen pelvis 05/29/2019. RESULT: Right Kidney: -Renal length: 12.9 cm -Parenchyma: Normal parenchymal echogenicity. Normal parenchymal thickness. -Collecting system: No hydronephrosis. -Calculus: No echogenic, shadowing calculus. -Lesion: 6.1 cm mid pole cyst. Left Kidney: -Renal length: 11.0 cm -Parenchyma: Normal parenchymal echogenicity. Normal parenchymal thickness. -Collecting system: No hydronephrosis. -Calculus: No echogenic, shadowing calculus. -Lesion: 2.0 cm lower pole cyst. Bladder: Not well distended. IMPRESSION: No hydronephrosis or echogenic calculus. Biscuit Packer: [facility] Transcribe Date/Time: Mar 21 2024 9:41A Dictated by : JASE DUMAS MD This examination was interpreted and the report reviewed and electronically signed by: JASE DUMAS MD on Mar 21 2024 9:42AM EST [id number] Normal [facility] CNNURSEon 03-11-2024 CNNURSE Nurse Visit (ENDIMT) KARLA CAI ([id number]) 1950 F Date Time Provider Department 03/11/24 1:00 PM ABDIFATAH AVELAR During your visit today, we recorded the following information about you: Abdifatah Avelar RN 03/11/2024 1:34 PM Signed DIABETES CARE AND EDUCATION VISIT Location: [place] Type of visit: In person individual PATIENT'S MAIN CONCERN TODAY: New diagnosis of Pre-diabetes Support person present for education today: none Cognitive ability: Alert and oriented Motivation to learn: Interested Learning barriers identified by educator: none Method of instruction: written, verbal, and demonstration DIABETES FINDINGS: Monitoring: Reviewed A1c and monitoring Meal Planning: Reviewed basic ADA diet recommendations Medications: discussed Metformin as most often used medication for first instance Physical Activity: benefits of activity to help avoid progression of diabetes Reducing Risks: Importance of maintaining good control to avoid complications reviewed HANDOUTS: Healthy You: Survival Skills and Healthy You: Planning Healthy Meals LEARNING RESPONSE: Healthy eating: Demonstrated understanding/competen cy today or at previous visit Being active: Demonstrated understanding/competen cy today or at previous visit POSSIBLE FUTURE TOPICS: 1. DIABETES CARE AND EDUCATION PLAN: Education completed and annual diabetes education follow-up visit recommended Time Spent (Minutes): 30 This visit note will be communicated to the healthcare provider via access to shared medical record. SIGNATURE: Abdifatah Avelar RN PATIENT NAME: Karla Cai DATE: March 11, 2024 TIME: 12:45 PM Referring Provider: JAE BELCHER [[id number]] Allergies As of Date: 03/11/2024 Noted Allergy Reaction ADHESIVE 11/06/2018 2 - Rash Comments: Redness, swelling, blisters MELOXICAM 01/02/2024 17 - Myalgia Comments: Kidney damage HOUSE DUST MITE 08/26/2023 3 - Cough LISINOPRIL 03/09/2010 3 - Cough NORVASC (AMLODIPINE BESYLATE) 01/30/2010 7 - Swelling Comments: pedal edema Date Reviewed: 02/25/2024 Reviewed by: Faiza Morgan LPN - Fully Assessed Primary Visit Diagnosis:Prediabetes [R73.03] Prescriptions as of 03/11/2024 - Biotin 10,000 mcg cap Take 1 capsule by mouth once daily. - irbesartan (AVAPRO) 300 mg tablet Take 1 tablet by mouth once daily. - pravastatin (PRAVACHOL) 20 mg tablet Take 1 tablet by mouth once daily. - vit C/E/Zn/coppr/lutein/ze axan (PRESERVISION AREDS-2 ORAL) Take 1 tablet by mouth two times a day. - doxazosin (CARDURA) 2 mg tablet Take 1 tablet by mouth daily at bedtime. [facility] - metoprolol succinate ER (TOPROL XL) 100 mg Take 1 tablet by mouth once daily. - spironolactone (ALDACTONE) 50 mg tablet Take 1 tablet by mouth once daily. Per [facility] - VITAMIN A ORAL Take 400 mg by mouth once daily. - olopatadine hcl(PATANOL 0.1 % EYE DROPS) 1 to 2 drops to each eye twice daily as needed Problem List As Of Date 03/11/2024 Noted Resolved Essential Hypertension, Benign [I10] 06/21/2009 [...] rupture (HC*08/27/2018 Impaired fasting glucose [R73.01] 07/27/2019 Diverticulosis [K57.90] 07/27/2019 08/26/2023 Overweight (BMI 25.0-29.9) [E66.3] 08/22/2021 Osteopenia [M85.80] 08/26/2023 Mitral valve insufficiency [I34.0] 11/29/2022 Arthritis of metatarsophalangeal (MTP) joint of*08/30/2020 Elevated LDL cholesterol level [E78.00] 09/04/2023 Chronic kidney insufficiency [N18.9] 10/17/2023 Encounter Status:Closed by ABDIFATAH AVELAR on 03/11/24 [facility] CNOVon 02-25-2024 CNOV Office Visit (INTMWS ) KARLA CAI ([id number]) 1950 F Date Time Provider Department 02/25/24 9:20 AM JAE BELCHER INTMWS During your visit today, we recorded the following information about you: Temperature Pulse Respiration Blood pressure 97.7 degrees 64/minute 16/minute 120/78 Weight 80.3 kg Jae Belcher MD 02/26/2024 12:07 AM Signed This note was created using [employer]. Subjective Karla Cai is a 73 year old female. She felt well, and was mainly concerned with her lab results. 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 irbesartan (AVAPRO) 300 mg tablet Take 1 tablet by mouth once daily. pravastatin (PRAVACHOL) 20 mg tablet Take 1 tablet by mouth once daily. vit C/E/Zn/coppr/lutein/ze axan (PRESERVISION AREDS-2 ORAL) Take 1 tablet by mouth two times a day. metoprolol succinate ER (TOPROL XL) 100 mg Take 1 tablet by mouth once daily. spironolactone (ALDACTONE) 50 mg tablet Take 1 tablet by mouth once daily. Per [facility] VITAMIN A ORAL Take 400 mg by mouth once daily. olopatadine hcl(PATANOL 0.1 % EYE DROPS) 1 to 2 drops to each eye twice daily as needed doxazosin (CARDURA) 2 mg tablet Take 1 tablet by mouth daily at bedtime. [facility]. (Patient not taking: Reported on 01/02/2024) No current facility-administered medications for this visit. Objective BP 120/78 (BP Site: Left Arm, BP Position: Sitting, BP Cuff Size: Large Adult) Pulse 64 Temp 36.5 ?C (97.7 ?F) (Temporal) Resp 16 Wt 80.3 kg (177 lb) BMI 26.91 kg/m? Physical Exam Constitutional: Appearance: Normal appearance. Depression Screening PHQ-2 Score PRIMO-2 Total Score 02/25/2024 0 0 Depression screening tool completed and reviewed. Based on score and interview, patient is not at risk for depression. Screening tool discussed with patient, and I recommended no further intervention at this time. Latest Ref Rng 02/24/2024 Glucose 74 - 99 mg/dL 129 (H) BUN 7 - 21 mg/dL 31 (H) Creatinine 0.58 - 0.96 mg/dL 0.91 Sodium 136 - 144 mmol/L 136 Potassium 3.7 - 5.1 mmol/L 4.0 Chloride 98 - 107 mmol/L 103 CO2 22 - 30 mmol/L 21 (L) Anion Gap 8 - 15 mmol/L 12 Calcium 8.5 - 10.2 mg/dL 10.0 eGFR >=60 mL/min/1.73m? 66 Hemoglobin A1C 4.3 - 5.6 % 6.1 (H) Estimated Average Glucose mg/dL 128 Legend: (H) High (L) Low Assessment and Plan: 1. Controlled type 2 diabetes mellitus without complication, without long-term current use of insulin (HCC) - ICD9: 250.00, ICD10: E11.9 (primary diagnosis) - New diagnosis - Discussed diabetic education issues of diabetes complications and monitoring required, medication-specific side effects and monitoring. - Shared Medical Decision Making was done: Medication: Options include Jardiance, Ozempic, metformin. Benefits: Medication may help glucose in the short term and CV or renal risk in the snf. Risks: Possible side effects were discussed including , GI. Possible interactions: n/a. Warnings: discussed. Approved use or off label use: approved. Option as above. Cost: high Prior approval may be needed. We agreed to monitor only for now and she will focus on low carb diet. She declined self glucose monitoring. - CONSULT TO DIABETES EDUCATION DSME/MNT 2. Chronic renal impairment, stage 3a (HCC) - ICD9: 585.3, ICD10: N18.31 - eGFR: 66 Improving - US KIDNEY/BLADDER Time spent was 30 or more, all for discussion. Jae Belcher MD Allergies As of Date: 02/25/2024 Noted Allergy Reaction ADHESIVE 11/06/2018 2 - Rash Comments: Redness, swelling, blisters MELOXICAM 01/02/2024 17 - Myalgia Comments: Kidney damage HOUSE DUST MITE 08/26/2023 3 - Cough LISINOPRIL 03/09/2010 3 - Cough NORVASC (AMLODIPINE BESYLATE) 01/30/2010 7 - Swelling Comments: pedal edema Date Reviewed: 02/25/2024 Reviewed by: Faiza Morgan LPN - Fully Assessed Reason for Visit: F/U 6 months [1177] Primary Visit Diagnosis:Controlled type 2 diabetes mellitus without complication, without long-term current use of insulin (HCC) [E11.9] Oth (more content not included)... Normal [facility] Basic metabolic 2000 panelon 02-24-2024 Anion gap [Moles/Vol] 12 mmol/L Normal 8-15 [facility] Comment on above: Order Comment: Speci men Type: BLOOD SPECIMEN [facility] Facility: [facility] Address: [address] [place] [address] Performed By: #### 5 5454-3 #### [facility] CLIA [id number] [address] [place] [address] [place] Calcium [Mass/Vol] 10.0 mg/dL Normal 8.5-10.2 [facility] Comment on above: Order Comment: Pati pacheco Type: BLOOD SPECIMEN Ordering Facility: [facility] Address: [address] [place] [address] Performed By: #### 5 5454-3 #### [facility] CLIA [id number] [address] [place] [address] [place] Chloride [Moles/Vol] 103 mmol/L Normal 98-107 [facility] Comment on above: Order Comment: Speci men Type: BLOOD SPECIMEN [facility]ing Facility: [facility] Address: [address] [place] [address] Performed By: #### 5 5454-3 #### [facility] CLIA [id number] [address] [place] [address] [place] CO2 [Moles/Vol] 21 mmol/L Low 22-30 [facility] Comment on above: Order Comment: Speci men Type: BLOOD SPECIMEN [facility] Facility: [facility] Address: [address] [place] [address] Performed By: #### 5 5454-3 #### [facility] CLIA [id number] [address] [place] [address] [place] Creatinine [Mass/Vol] 0.91 mg/dL Normal 0.58-0.96 [facility] Comment on above: Order Comment: Speci men Type: BLOOD SPECIMEN [facility]ing Facility: [facility] Address: [address] [place] [address] Performed By: #### 5 5454-3 #### [facility] CLIA [id number] [address] [place] [address] [place] Creatinine and Glomerular filtration rate.predicted panel (S/P/Bld) 66 mL/min/1.73m??? Normal >=60 [facility] Comment on above: Order Comment: Speci men Type: BLOOD SPECIMEN [facility]ing Facility: [facility] Address: [address] [place] [address] Result Comment: Inocencia mated Glomerular Filtration Rate (eGFR) is calculated using the 2020 CKD-EPI creatinine equation. This equation utilizes serum creatinine, sex, and age as parameters. The creatinine assay has traceable calibration to isotope dilution-mass spectrometry. Refer to KDIGO guidelines for clinical interpretation. In patients with unstable renal function, e.g. those with acute kidney injury, the eGFR may not accurately reflect actual GFR. Performed By: #### 5 5454-3 #### [facility] CLIA [id number] [address] [place] [address] [place] Glucose [Mass/Vol] 129 mg/dL High 74-99 [facility] Comment on above: Order Comment: Speci men Type: BLOOD SPECIMEN Ordering Facility: [facility] Address: [address] [place] [address] Result Comment: The [place] Diabetes Association (ADA) provides guidance for cutoff [...] Standards of Medical Care in Diabetes 2016, [place] Diabetes Association. Diabetes Care. 2016.39(Suppl 1). Performed By: #### 5 5454-3 #### [facility] CLIA [id number] [address] [place] [address] [place] Potassium [Moles/Vol] 4.0 mmol/L Normal 3.7-5.1 [facility] Comment on above: Order Comment: Speci pacheco Type: BLOOD SPECIMEN Ordering Facility: [facility] Address: [address] [place] [address] Performed By: #### 5 5454-3 #### [facility] CLIA [id number] [address] [place] [address] [place] Sodium [Moles/Vol] 136 mmol/L Normal 136-144 [facility] Comment on above: Order Comment: Pati pacheco Type: BLOOD SPECIMEN Ordering Facility: [facility] Address: [address] [place] [address] Performed By: #### 5 5454-3 #### [facility] CLIA [id number] [address] [place] [address] [place] Urea nitrogen [Mass/Vol] 31 mg/dL High 7-21 [facility] Comment on above: Order Comment: Pati men Type: BLOOD SPECIMEN Ordering Facility: [facility] Address: [address] [place] [address] Performed By: #### 5 5454-3 #### [facility] CLIA [id number] [address] [place] [address] STATES [place] [facility] HbA1c (Bld)on 02-24-2024 Average glucose Estimated from glycated hemoglobin (Bld) [Mass/Vol] 128 mg/dL Normal [facility] Comment on above: Order Comment: Jethro bergman Type: BLOOD SPECIMEN Ordering Facility: [facility] Address: [address] [place] [address] Result Comment: eAG: (Estimated average glucose) is a calculated value from HgbA1c and is mortician supplies sales representative of the average blood glucose level in the last 2-3 month period. Performed By: #### 5 5454-3 #### [facility] CLIA [id number] [address] [place] [address] HbA1c (Bld) [Mass fraction] 6.1 % High 4.3-5.6 [facility] Comment on above: Order Comment: Jethro bergman Type: BLOOD SPECIMEN Ordering Facility: [facility] Address: [address] [place] [address] Result Comment: [place] Diabetes Association guidelines indicate that patients with HgbA1c in the range 5.7-6.4% are at increased risk for development of diabetes, and intervention by lifestyle modification may be beneficial. HgbA1c greater or equal to 6.5% is considered diagnostic of diabetes. Performed By: #### 5 5454-3 #### [facility] CLIA [id number] [address] [place] [address] OF [facility] CNPDayna 02-17-2024 CNPN Telephone (INTMWS) KARLA CAI ([id number]) 1950 F Date Time Provider Department 02/17/24 JAE BELCHER INTMWS During your visit today, we recorded the following information about you: Joanie Garcia 02/17/2024 4:26 PM Signed Pt got notification on MyChart she is due for Mammmogram although it is not until July. Will need order placed. Allergies As of Date: 02/17/2024 Noted Allergy Reaction ADHESIVE 11/06/2018 2 - Rash Comments: Redness, swelling, blisters MELOXICAM 01/02/2024 17 - Myalgia Comments: Kidney damage HOUSE DUST MITE 08/26/2023 3 - Cough LISINOPRIL 03/09/2010 3 - Cough NORVASC (AMLODIPINE BESYLATE) 01/30/2010 7 - Swelling Comments: pedal edema Date Reviewed: 01/02/2024 Reviewed by: Zora Comer RN - Fully Assessed Reason for Visit: Orders [681] Primary Visit Diagnosis:Screening mammogram for breast cancer [Z12.31] Order(s):[facility]CRE[facility] [[id number]] Order #: [id number] FUTURE Prescriptions as of 02/17/2024 - irbesartan (AVAPRO) 300 mg tablet Take 1 tablet by mouth once daily. - pravastatin (PRAVACHOL) 20 mg tablet Take 1 tablet by mouth once daily. - vit C/E/Zn/coppr/lutein/ze axan (PRESERVISION AREDS-2 ORAL) Take 1 tablet by mouth two times a day. - doxazosin (CARDURA) 2 mg tablet Take 1 tablet by mouth daily at bedtime. [facility] - metoprolol succinate ER (TOPROL XL) 100 mg Take 1 tablet by mouth once daily. - spironolactone (ALDACTONE) 50 mg tablet Take 1 tablet by mouth once daily. Per [facility] - VITAMIN A ORAL Take 400 mg by mouth once daily. - olopatadine hcl(PATANOL 0.1 % EYE DROPS) 1 to 2 drops to each eye twice daily as needed Problem List As Of Date 02/17/2024 Noted Resolved Essential Hypertension, Benign [I10] 06/21/2009 [...] rupture (HC*08/27/2018 Impaired fasting glucose [R73.01] 07/27/2019 Diverticulosis [K57.90] 07/27/2019 08/26/2023 Overweight (BMI 25.0-29.9) [E66.3] 08/22/2021 Osteopenia [M85.80] 08/26/2023 Mitral valve insufficiency [I34.0] 11/29/2022 Arthritis of metatarsophalangeal (MTP) joint of*08/30/2020 Elevated LDL cholesterol level [E78.00] 09/04/2023 Chronic kidney insufficiency [N18.9] 10/17/2023 Encounter Status:Closed by JAE BELCHER on 02/17/24 [facility] CNOVon 01-02-2024 CNOV Office Visit (PODIWS ) KARLA CAI ([id number]) 1950 F Date Time Provider Department 01/02/24 1:45 PM AMANDA FLEMING PODIWS During your visit today, we recorded the following information about you: Zora Comer RN 01/02/2024 10:50 PM Signed AMB ROOMING INTAKE FLOWSHEET DATA Pain Pain Level: 7 Pain Location: Other: See Comment (B/L toes) Description: Throbbing, Aching (twitching) Duration Amount of Time: 8 Duration Units: Weeks Frequency: Continuous Intervention/Comfort measure: Medication, Reposition, Relaxation (meloxicam, Advil) Patient presents with: Left Great Toe - New Patient, Pain Right Great Toe - New Patient, Pain Patient c/o pain in B/L hallux in the joint. Ongoing for years but was controlled with meloxicam. Patient recently had to stop the meloxicam because it was damaging her kidneys. Her PCP told her to refrain from not only meloxicam but all NSAIDS. Patient would like to discuss options. Patient also notes that she hit her L 2nd toe on her closet door and is now painful and black and blue. Patient concerned it may be fractured. Amanda Fleming 01/02/2024 10:50 PM Signed Initial Podiatric Office Visit: Chief Complaint: This 73 year old female who presents with chief complaint:b/l great toe pain HPI Patient presents to clinic for evaluation of b/l feet. Her primary complaint is pain in both great toes. She has severe arthritis. Did take mobic for the pain but had to stop because it was affecting her kidneys. She states that since she had to stop the mobic, and now is having pain. Did report bumping her left 2nd toe against the closet yesterday and now has pain. 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 pravastatin (PRAVACHOL) 20 mg tablet Take 1 tablet by mouth once daily. vit C/E/Zn/coppr/lutein/ze axan (PRESERVISION AREDS-2 ORAL) Take 1 tablet by mouth two times a day. metoprolol succinate ER (TOPROL XL) 100 mg Take 1 tablet by mouth once daily. spironolactone (ALDACTONE) 50 mg tablet Take 1 tablet by mouth once daily. Per [facility] VITAMIN A ORAL Take 400 mg by mouth once daily. olopatadine hcl(PATANOL 0.1 % EYE DROPS) 1 to 2 drops to each eye twice daily as needed doxazosin (CARDURA) 2 mg tablet Take 1 tablet by mouth daily at bedtime. [facility]. (Patient not taking: Reported on 01/02/2024) No current facility-administered medications for this visit. ALLERGIES Allergen Reactions Adhesive Rash Redness, swelling, blisters Meloxicam Myalgia Kidney damage House Dust Mite Cough Lisinopril Cough Norvasc [Amlodipine* Swelling pedal edema PAST SURGICAL HISTORY Procedure Laterality Date BIOPSY [...] HYSTERECTOMY UTERUS 250 GM/< 10/10/2000 Hysterectomy, vaginal FAMILY HISTORY Problem Relation Age of Onset Cancer Mother small intestine Hypertension Mother Ischemic Heart Disease Father Prostate Cancer Father Hypertension Father Cervical Cancer Sister Thyroid Cancer Sister Breast Cancer Sister Thyroid Cancer Sister Diabetes Brother Hypertension Brother Leukemia Maternal Grandmother (more content not included)... Normal [facility] XR FOOT 3V AP/LAT/OBL BILon 01-02-2024 XR FOOT 3V AP/LAT/OBL KENIA * * *Final Report* * * DATE OF EXAM: Jan 02 2024 1:22PM [id number] [id number] - XR FOOT 3V AP/LAT/OBL KENIA / PROCEDURE REASON: Pain * * * * Physician Interpretation * * * * EXAMINATION: XR FOOT 3V AP/LAT/OBL KENIA HISTORY: Chronic bilateral diffuse pain that has flaired up over the last 8 weeks. Left 2nd toe jamming injury yesterday. Pain . TECHNIQUE: XR FOOT 3V AP/LAT/OBL KENIA Laterality: BILATERAL Number of different views (projections): 3 M: XB_1 COMPARISON: 08/30/2020 RESULT: Advanced first MTP degenerative changes bilaterally. Mild ankle degenerative change on the left. Mild midfoot degenerative change bilaterally. No acute fracture or dislocation. There are no bony erosions. IMPRESSION: Advanced first MTP degenerative changes. Biscuit Packer: VANDANA Transcribe Date/Time: Jan 09 2024 7:31A Dictated by : STACI MONTGOMERY MD This examination was interpreted and the report reviewed and electronically signed by: STACI MONTGOMERY MD on Jan 09 2024 7:31AM EST [id number] Normal [facility] 12-19-2023 CNPN Telephone (INTMWS) KARLA CAI ([id number]) 1950 F Date Time Provider Department 12/19/23 JAE BELCHER INTMWS During your visit today, we recorded the following information about you: Sonia Juares, DANIEL 12/19/2023 8:57 AM Signed Patient calls to ask about anti-inflammatory medication. She reports that since stopping the meloxicam she is starting to have joint pain especially in her feet. She reports pain/cramping that is affecting her ability to walk. Patient is asking if there is another anti-inflammatory she can take since she can't have meloxicam and since her kidney function improved with blood wok 11/15/2023. DANIEL Mobley Victor H, MD 12/19/2023 10:42 AM Signed Any anti inflammatory can potentially affect kidney function. Tylenol is okay to take. Off podiatry consult if pain is primarily in the feet. Anne Dorsey RN 12/19/2023 12:27 PM Signed Pt called and is notified of providers message and instructions. Pt voices understanding.She states it's bilateral the big toe where she has bunions. She states she will get some OTC Tylenol. She sees Podiatry in 2 weeks and will see what they recommend. Anne Dorsey RN Allergies As of Date: 12/19/2023 Noted Allergy Reaction ADHESIVE 11/06/2018 2 - Rash Comments: Redness, swelling, blisters HOUSE DUST MITE 08/26/2023 3 - Cough LISINOPRIL 03/09/2010 3 - Cough NORVASC (AMLODIPINE BESYLATE) 01/30/2010 7 - Swelling Comments: pedal edema Date Reviewed: 12/10/2023 Reviewed by: Mendoza Puente RD - Fully Assessed Reason for Visit: Patient Question [1917] Prescriptions as of 12/19/2023 - irbesartan (AVAPRO) 300 mg tablet Take 1 tablet by mouth once daily. - pravastatin (PRAVACHOL) 20 mg tablet Take 1 tablet by mouth once daily. - vit C/E/Zn/coppr/lutein/ze axan (PRESERVISION AREDS-2 ORAL) Take 1 tablet by mouth two times a day. - doxazosin (CARDURA) 2 mg tablet Take 1 tablet by mouth daily at bedtime. [facility] - metoprolol succinate ER (TOPROL XL) 100 mg Take 1 tablet by mouth once daily. - spironolactone (ALDACTONE) 50 mg tablet Take 1 tablet by mouth once daily. Per [facility] - VITAMIN A ORAL Take 400 mg by mouth once daily. - olopatadine hcl(PATANOL 0.1 % EYE DROPS) 1 to 2 drops to each eye twice daily as needed Problem List As Of Date 12/19/2023 Noted Resolved Essential Hypertension, Benign [I10] 06/21/2009 [...] rupture (HC*08/27/2018 Impaired fasting glucose [R73.01] 07/27/2019 Diverticulosis [K57.90] 07/27/2019 08/26/2023 Overweight (BMI 25.0-29.9) [E66.3] 08/22/2021 Osteopenia [M85.80] 08/26/2023 Mitral valve insufficiency [I34.0] 11/29/2022 Arthritis of metatarsophalangeal (MTP) joint of*08/30/2020 Elevated LDL cholesterol level [E78.00] 09/04/2023 Chronic kidney insufficiency [N18.9] 10/17/2023 Encounter Status:Closed by JAE BELCHER on 12/19/23 Normal [facility] Basic metabolic 2000 panelon 11-15-2023 Anion gap [Moles/Vol] 12 mmol/L Normal -18 [facility] Comment on above: Order Comment: Speci men Type: BLOOD SPECIMENOrdering Facility: [facility] Address: [address] [place] [address] Performed By: #### 2 4321-2 ####[facility] TAMRA PANDEYREVA [id number] [place] [address] [place] Calcium [Mass/Vol] 10.1 mg/dL Normal 8.5-10.2 [facility] Comment on above: Order Comment: Speci men Type: BLOOD SPECIMENOrdering Facility: [facility] Address: [address] [place] [address] Performed By: #### 2 4321-2 ####[facility] [id number] [place] [address] [place] Chloride [Moles/Vol] 102 mmol/L Normal 97-105 [facility] Comment on above: Order Comment: Speci men Type: BLOOD SPECIMENOrdering Facility: [facility] Address: [address] [place] [address] Performed By: #### 2 4321-2 ####[facility] [id number] [place] [address] [place] CO2 [Moles/Vol] 22 mmol/L Normal 22-30 [facility] Comment on above: Order Comment: Speci men Type: BLOOD SPECIMENOrdering Facility: [facility] Address: [address] [place] [address] Performed By: #### 2 4321-2 ####[facility] [id number] [place] [address] [place] Creatinine [Mass/Vol] 1.05 mg/dL High 0.58-0.96 [facility] Comment on above: Order Comment: Speci men Type: BLOOD SPECIMENOrdering Facility: [facility] Address: [address] [place] [address] Performed By: #### 2 4321-2 ####[facility] [id number] [place] [address] [place] Creatinine and Glomerular filtration rate.predicted panel (S/P/Bld) 56 mL/min/1.73m??? Low >=60 [facility] Comment on above: Order Comment: Speci men Type: BLOOD SPECIMENOrdering Facility: [facility] Address: [address], [place] [address] Result Comment: Inocencia mated Glomerular Filtration Rate (eGFR) is calculated using the 2020 CKD-EPI creatinine equation. This equation utilizes serum creatinine, sex, and age as parameters. The creatinine assay has traceable calibration to isotope dilution-mass spectrometry. Refer to KDIGO guidelines for clinical interpretation. In patients with unstable renal function, e.g. those with acute kidney injury, the eGFR may not accurately reflect actual GFR. Performed By: #### 2 4321-2 ####[facility] [id number] [place] [address] [place] Glucose [Mass/Vol] 127 mg/dL High 74-99 [facility] Comment on above: Order Comment: Jethro bergman Type: BLOOD SPECIMENOrdering Facility: [facility] Address: [address] [place] [address] Result Comment: The [place] Diabetes Association (ADA) provides guidance for cutoff [...] Standards of Medical Care in Diabetes 2016, [place] [employer]. Diabetes Care. 2016.39(Suppl 1). Performed By: #### 2 4321-2 ####[facility] [id number] [place] [address] [place] Potassium [Moles/Vol] 4.3 mmol/L Normal 3.7-5.1 [facility] Comment on above: Order Comment: Jethro bergman Type: BLOOD SPECIMENOrdering Facility: [facility] Address: [address] [place] [address] Performed By: #### 2 4321-2 ####[facility] [id number] [place] [address] [place] Sodium [Moles/Vol] 136 mmol/L Normal 136-144 [facility] Comment on above: Order Comment: Speci men Type: BLOOD SPECIMENOrdering Facility: [facility] Address: [address] [place] [address] Performed By: #### 2 4321-2 ####[facility] [id number] [place] [address] [place] Urea nitrogen [Mass/Vol] 27 mg/dL High 7-21 [facility] Comment on above: Order Comment: Speci men Type: BLOOD SPECIMENOrdering Facility: [facility] Address: [address] [place] [address] Performed By: #### 2 4321-2 ####[facility] [id number] [place] [address] [place] Basophil percentageOrdered B y: Mendoza Boogie on 08-13-2023 Basophil percentage < 1.0 mg/dL 0.55-1.02 [facility] No Panel InformationOrdered By: Mendoza Boogie on 08-13-2023 Bedside Estimated GFR (eGFR) > 60.0000 mL/min >60 [facility] Basophil percentageOrdered B y: Mendoza Boogie on 01-09-2023 Chloride [Moles/Vol] 105 mmol/L 98-107 [facility] Glucose [Mass/Vol] 122 mg/dL 74-106 [facility] Comment on above: Fasting Glucose resu lt from 100 to 125 mg/dL suggests IMPAIRED HOMEOSTASIS per A.D.A. criteria. Potassium [Moles/Vol] 4.4 mmol/L 3.5-5.1 [facility] Comment on above: Moderate Hemolysis, Result may be falsely increased. Sodium [Moles/Vol] 136 mmol/L 136-145 [facility] Laboratory - Chemistry and C hemistry - challengeOrdered By: Mendoza Boogie on 01-09-2023 CO2 [Moles/Vol] 22.0 mmol/L 21.0-32.0 [facility] Urea nitrogen/Creatinine [Mass ratio] 26.7 mg/mg 10-20 [facility] No Panel InformationOrdered By: Mendoza Boogie on 01-09-2023 Estimated GFR (MDRD) Amer 72 mL/min >60 [facility] Comment on above: GFR Calc Estimated GFR (MDRD) Non-Af Amer 60 mL/min >60 [facility] Comment on above: Non- GFR Calc Serum or plasma calcium jillian urement (mass/volume)Ordered By: Mendoza Boogie on 01-09-2023 Calcium [Mass/Vol] 9.6 mg/dL 8.5-10.1 [facility] Serum or plasma creatinine m easurement (mass/volume)Ordered By: Mendoza Boogie on 01-09-2023 Creatinine [Mass/Vol] 0.98 mg/dL 0.55-1.02 [facility] Comment on above: The validity of the calculated GFR & GFRAA in patients over 70 years has not been determined. Clinical correlation is essential. Serum or plasma urea nitroge n measurement (mass/volume)Ordered By: Mendoza Boogie on 01-09-2023 Urea nitrogen [Mass/Vol] 26 mg/dL 7-18 [facility] Thin prep Papanicolaou smear with manual screeningOrdered By: Mendoza Boogie on 01-09-2023 Thin prep Papanicolaou smear with manual screening 9 5-15 [facility] Basophil percentageon 2021 Chloride [Moles/Vol] 105 mmol/L 98-107 [facility] Work Phone: Glucose [Mass/Vol] 104 mg/dL 74-106 [facility] Work Phone: Comment on above: Fasting Glucose resu lt from 100 to 125 mg/dL suggests IMPAIRED HOMEOSTASIS per A.D.A. criteria. Potassium [Moles/Vol] 4.1 mmol/L 3.5-5.1 [facility] Work Phone: Sodium [Moles/Vol] 139 mmol/L 136-145 [facility] Work Phone: Laboratory - Chemistry and C hemistry - challengeon 07-24-2022 CO2 [Moles/Vol] 29.0 mmol/L 21.0-32.0 [facility] Work Phone: Urea nitrogen/Creatinine [Mass ratio] 33.0 mg/mg 10-20 [facility] Work Phone: No Panel Informationon 07-24 Estimated GFR (MDRD) Amer 81 mL/min >60 [facility] Work Phone: Comment on above: GFR Calc Estimated GFR (MDRD) Non-Af Amer 67 mL/min >60 [facility] Work Phone: Comment on above: Non- GFR Calc Serum or plasma calcium jillian urement (mass/volume)on 07-24-2022 Calcium [Mass/Vol] 9.4 mg/dL 8.5-10.1 [facility] Work Phone: Serum or plasma creatinine m easurement (mass/volume)on 07-24-2022 Creatinine [Mass/Vol] 0.88 mg/dL 0.55-1.02 [facility] Work Phone: Comment on above: The validity of the calculated GFR & GFRAA in patients over 70 years has not been determined. Clinical correlation is essential. Serum or plasma urea nitroge n measurement (mass/volume)on 07-24-2022 Urea nitrogen [Mass/Vol] 29 mg/dL 7-18 [facility] Work Phone: Thin prep Papanicolaou smear with manual screeningon 07-24-2022 Thin prep Papanicolaou smear with manual screening 01 11- [facility] Work Phone: CNNURSEon 11-12-2020 CNNURSE Nurse Visit (GENIAABA) KARLA CAI ([id number]) 1950 F Date Time Provider Department 11/12/20 10:40 AM COVID VACCINE [facility]OV[facility] During your visit today, we recorded the following information about you: Referring Provider: SELF [200] Allergies As of Date: 11/12/2020 Noted Allergy Reaction ADHESIVE 11/06/2018 14 - Other: See Comments Comments: Redness, swelling, blisters Environmental allergies [Other] 07/14/2009 Comments: Cockroaches, dust mites LISINOPRIL 03/09/2010 3 - Cough NORVASC (AMLODIPINE BESYLATE) 01/30/2010 Comments: pedal edema Date Reviewed: 08/30/2020 Reviewed by: Zora Comer RN - Fully Assessed Order(s):[facility] COVID-19 VACCINE [[id number]] Order #: [id number] [facility] SARS-COV-2 VACCINE 2D DOSE APPT [[id number]] Order #: [id number] FUTURE Prescriptions as of 11/12/2020 Sig: POTASSIUM ORAL Take by mouth. IRBESARTAN 300 MG TABLET Take 1 tablet by mouth once d* METOPROLOL SUCCINATE ER 50 MG* Take 1 tablet by mouth once d* HYDROCHLOROTHIAZIDE 12.5 MG T* Take 1 tablet by mouth once d* VITAMIN A ORAL Take 400 mg by mouth once yumi* * MULTIVITAMIN TABLET Take 1 tablet by mouth once d* * CYANOCOBALAMIN (VIT B-12) 50 * Take 1 tablet by mouth once d* * CALCIUM 600 + D ORAL Take 1 tablet by mouth twice * * PATANOL 0.1 % EYE DROPS 1 to 2 drops to each eye twic* Problem List As Of Date 11/12/2020 Noted Resolved Essential Hypertension, Benign [I10] 06/21/2009 Allergic Rhinitis [J30.9] 06/21/2009 Eczematous Dermatitis of Eyelid [H01.139] 07/26/2009 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] 03/13/2011 Symptomatic menopausal or female climacteric st*07/25/2011 Bunion of great toe of left foot [M21.612] 07/18/2013 07/27/2014 History of colonoscopy with polypectomy [Z98.89*07/28/2015 Aortic heart murmur [I35.8] 07/30/2016 History of breast cancer [Z85.3] 06/05/2018 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] 06/05/2018 Adenoma of ascending colon [D12.2] 07/01/2018 Dilated aortic root (HCC) [I77.810] 10/14/2018 Impaired fasting glucose [R73.01] 07/27/2019 Diverticulosis [K57.90] 07/27/2019 Encounter Status:Open Normal [facility] CT 3D POST PROCESSINGon 08-09 CT 3D POST PROCESSING * * *Final Report* * *DATE OF EXAM: Aug 27 2018 7:20AM [facility] [place] - CT 3D POST PROCESSING / REASON: multiple diagnoses * * * * Physician Interpretation * * * * Examination: CTA chest, CTA abdomen and pelvis dated 08/27/2018 7:22 AM.Comparison: NoneHistory: 67 years old 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 Spiral imaging was performed following the IV administration of contrast material. In addition, delayed imaging was performed. A low-osmolar contrast agent was used (100 cc of Omnipaque 350).CT Dose-Length Product (DLP): 1769 mGycmCT Dose Reduction Employed: Automated exposure control (AEC)For optimization of anatomic evaluation, multiplanar reconstruction, maximum intensity projections, and advanced 3-D off-line postprocessing were performed on a dedicated stand-alone workstation by the interpreting physician.RESULT:Poten tial study limitations: Motion artifactCHEST:The chest wall is remarkable for postsurgical changes and punctate calcifications in the right breast. There is no significant adenopathy noted in the axillae, mediastinum, and cristhian. Calcified left hilar lymph nodes. The pericardium appears normal. Dilated pulmonary arteries, 2.5 cm.Lung windows reveal no acute abnormalities. Dependant atelectasis. There is no abnormal pulmonary parenchymal mass, infiltrate, or pleural effusion.The cardiac chambers demonstrate normal atrioventricular and ventriculoarterial concordance, and systemic and pulmonary venous return. The cardiac chamber sizes are normal. The coronary arteries have normal origins and courses. There are no distinct coronary calcifications identified, though this study was not optimized for coronary artery evaluation.VASCULAR WITH ADVANCED 3-D OFF-LINE POSTPROCESSING:Aortic valve morphology is incompletely assessed on this non-gated examination.Motion artifact precludes accurate measurements of the aortic root. Ascending aorta is dilated. There is no acute aortic pathology, such as dissection, intramural hematoma, or contained rupture. The arch vessel branching pattern is normal .The abdominal aorta is normal in course, caliber, and contour. There is no acute aortic pathology.Representati ve dimensions of the thoracic aorta are as follows:3.8 cm at the sinuses of Valsalva measured sinus to trigone (the sinotubular junction is preserved)4.7 cm at the mid ascending aorta4.3 cm at the distal ascending aorta3.2 cm at the mid transverse arch2.2 cm at the proximal descending thoracic aorta2.2 cm at the diaphragmatic hiatusThe abdominal aorta measures:2.1 cm at the supramesenteric segment1.8 cm at the renal segment1.7 cm at the mid infrarenal segment1.7 cm at the aortic bifurcationThe celiac axis, SMA, and JOSE are patent. There are single renal arteries bilaterally, both of which appear patent.The pelvic arteries are tortuous, but otherwise normal in caliber and contour.ABDOMEN:Puncta te calcification in liver and spleen. The gallbladder, and pancreas appear normal. The adrenal glands appear normal. Bilateral renal cysts. There is no abnormal mass or hydronephrosis.PELVIS: There is no significant retroperitoneal adenopathy. No free fluid or free air within the abdomen or pelvis.The bowel appears unremarkable on this non-GI contrast examination sent for diverticulosis. The urinary bladder appears normal. There are scattered phleboliths within the deep pelvis.IMPRESSION:1. Moderate dilatation of the ascending aorta, 4.7 cm. No acute aortic pathology identified.2. Normal abdominal aorta. No acute abdominal aortic pathology.3. Old granulomatous disease.Transcriptioni st: PSCB Transcribe Date/Time: Aug 27 2018 8:50ADictated by : TEAGAN WHITFIELD MDThis examination was interpreted and the report reviewed and electronically signed by: TEAGAN WHITFIELD MD on Sep 03 2018 6:14PM [id number] [facility] CTA C/A/P (NONGATED) W IVCON on 08-27-2018 CTA C/A/P (NONGATED) W IVCON * * *Final Report* * *DATE OF EXAM: Aug 27 2018 7:22AM [facility] [place]131 - CTA C/A/P (NONGATED) W IVCON / REASON: multiple diagnoses * * * * Physician Interpretation * * * * Examination: CTA chest, CTA abdomen and pelvis dated 08/27/2018 7:22 AM.Comparison: NoneHistory: 67 years old 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 Spiral imaging was performed following the IV administration of contrast material. In addition, delayed imaging was performed. A low-osmolar contrast agent was used (100 cc of Omnipaque 350).CT Dose-Length Product (DLP): 1769 mGycmCT Dose Reduction Employed: Automated exposure control (AEC)For optimization of anatomic evaluation, multiplanar reconstruction, maximum intensity projections, and advanced 3-D off-line postprocessing were performed on a dedicated stand-alone workstation by the interpreting physician.RESULT:Potnesha tiayaima study limitations: Motion artifactCHEST:The chest wall is remarkable for postsurgical changes and punctate calcifications in the right breast. There is no significant adenopathy noted in the axillae, mediastinum, and cristhian. Calcified left hilar lymph nodes. The pericardium appears normal. Dilated pulmonary arteries, 2.5 cm.Lung windows reveal no acute abnormalities. Dependant atelectasis. There is no abnormal pulmonary parenchymal mass, infiltrate, or pleural effusion.The cardiac chambers demonstrate normal atrioventricular and ventriculoarterial concordance, and systemic and pulmonary venous return. The cardiac chamber sizes are normal. The coronary arteries have normal origins and courses. There are no distinct coronary calcifications identified, though this study was not optimized for coronary artery evaluation.VASCULAR WITH ADVANCED 3-D OFF-LINE POSTPROCESSING:Aortic valve morphology is incompletely assessed on this non-gated examination.Motion artifact precludes accurate measurements of the aortic root. Ascending aorta is dilated. There is no acute aortic pathology, such as dissection, intramural hematoma, or contained rupture. The arch vessel branching pattern is normal .The abdominal aorta is normal in course, caliber, and contour. There is no acute aortic pathology.Representati ve dimensions of the thoracic aorta are as follows:3.8 cm at the sinuses of Valsalva measured sinus to trigone (the sinotubular junction is preserved)4.7 cm at the mid ascending aorta4.3 cm at the distal ascending aorta3.2 cm at the mid transverse arch2.2 cm at the proximal descending thoracic aorta2.2 cm at the diaphragmatic hiatusThe abdominal aorta measures:2.1 cm at the supramesenteric segment1.8 cm at the renal segment1.7 cm at the mid infrarenal segment1.7 cm at the aortic bifurcationThe celiac axis, SMA, and JOSE are patent. There are single renal arteries bilaterally, both of which appear patent.The pelvic arteries are tortuous, but otherwise normal in caliber and contour.ABDOMEN:Puncta te calcification in liver and spleen. The gallbladder, and pancreas appear normal. The adrenal glands appear normal. Bilateral renal cysts. There is no abnormal mass or hydronephrosis.PELVIS: There is no significant retroperitoneal adenopathy. No free fluid or free air within the abdomen or pelvis.The bowel appears unremarkable on this non-GI contrast examination sent for diverticulosis. The urinary bladder appears normal. There are scattered phleboliths within the deep pelvis.IMPRESSION:1. Moderate dilatation of the ascending aorta, 4.7 cm. No acute aortic pathology identified.2. Normal abdominal aorta. No acute abdominal aortic pathology.3. Old granulomatous disease.Transcriptioni st: PSCB Transcribe Date/Time: Aug 27 2018 8:50ADictated by : TEAGAN WHITFIELD MDThis examination was interpreted and the report reviewed and electronically signed by: TEAGAN WHITFIELD MD on Aug 27 2018 9:28AM [id number] Normal [facility] Vital Signs Date Time Vital Sign Value Performing Clinician Facility 01-18-2025 14:06040 Body height 175.[address] Jae Belcher MD Work Phone: [facility] 01-18-2025 14:06-0400 Body mass index (BMI) [Ratio] 24 kg/m2 Dr. Jae Belcher MD Work Phone: [facility] 01-18-2025 14:06-040 Body temperature 97.5 [degF] Dr. Jae Belcher MD Work Phone: [facility] 01-18-2025 14:060400 Body weight 73.[address] Jae Belcher MD Work Phone: 8(921)527-223126 [place] [address] 01-18-2025 14:06-0400 Diastolic blood pressure 76 mm[Hg] Dr. Jae Belcher MD Work Phone: 7(888)750-299426 [place] [address] 01-18-2025 14:06-0400 Heart rate 64 /min Dr. Jae Belcher MD Work Phone: 4(167)514-271026 [place] [address] 01-18-2025 14:06-0400 Respiratory rate 16 /min Dr. Jae Belcher MD Work Phone: 3(052)954-212126 [place] [address] 01-18-2025 14:06-0400 SaO2% (BldA) [Mass fraction] 97 % Dr. Jae Belcher MD Work Phone: 8(610)830-280226 [place] [address] 01-18-2025 14:06-0400 Systolic blood pressure 120 mm[Hg] Dr. Jae Belcher MD Work Phone: 4(841)881-053626 [place] [address] 12-22-2024 09:17-0400 Body mass index (BMI) [Ratio] 23.6 kg/m2 Dr. Jae Belcher MD Work Phone: 7(367)866-653226 [place] [address] 12-22-2024 09:17-0400 Body weight 72.[address] Jae Belcher MD Work Phone: 1(651)979-702026 [place] [address] 12-22-2024 09:17-0400 Diastolic blood pressure 76 mm[Hg] Dr. Jae Belcher MD Work Phone: 2(804)449-775226 [place] [address] 12-22-2024 09:17-0400 Heart rate 68 /min Dr. Jae Belcher MD Work Phone: 9(728)382-795126 [place] [address] 12-22-2024 09:17-0400 Respiratory rate 16 /min Dr. Jae Belcher MD Work Phone: 8(597)011-436626 [place] [address] 12-22-2024 09:17-0400 Systolic blood pressure 123 mm[Hg] Dr. Jae Belcher MD Work Phone: 6(034)423-420926 [place] [address] 11-16-2024 08:33-0400 Diastolic blood pressure 62 mm[Hg] Dr. Jae Belcher MD Work Phone: 9(810)521-412126 [place] [address] 11-16-2024 08:33-0400 Heart rate 64 /min Dr. Jae Belcher MD Work Phone: 6(910)925-506426 [place] [address] 11-16-2024 08:33-0400 Respiratory rate 18 /min Dr. Jae Belcher MD Work Phone: 6(448)491-981026 [place] [address] 11-16-2024 08:33-0400 Systolic blood pressure 118 mm[Hg] Dr. Jae Belcher MD Work Phone: 8(259)268-216326 [place] [address] 11-16-2024 08:18-0400 Body temperature 97.6 [degF] Dr. Jae Belcher MD Work Phone: 3(578)192-923826 [place] [address] 11-12-2024 12:35-0500 Body temperature 97.4 [degF] Dr. Jae Belcher MD Work Phone: 3(336)201-983626 [place] [address] 11-12-2024 12:35-0500 Diastolic blood pressure 61 mm[Hg] Dr. Jae Belcher MD Work Phone: 1(287)593-909726 [place] [address] 11-12-2024 12:35-0500 Heart rate 73 /min Dr. Jae Belcher MD Work Phone: 0(332)345-124826 [place] [address] 11-12-2024 12:35-0500 Respiratory rate 18 /min Dr. Jae Belcher MD Work Phone: 3(973)604-376626 [place] [address] 11-12-2024 12:35-0500 Systolic blood pressure 107 mm[Hg] Dr. Jae Belcher MD Work Phone: 1(631)417-816426 [place] [address] 11-02-2024 14:51-0500 Body height 175.[address] Jae Belcher MD Work Phone: 2(052)422-867026 [place] [address] 11-02-2024 14:51-0500 Body weight 71.[address] Jae Belcher MD Work Phone: 7(736)827-609126 [place] [address] 11-02-2024 14:19-0500 Body mass index (BMI) [Ratio] 23.1 kg/m2 Dr. Jae Belcher MD Work Phone: 5(040)048-285026 [place] [address] 11-02-2024 14:04-0500 Diastolic blood pressure 71 mm[Hg] Dr. Jae Belcher MD Work Phone: 2(605)083-052626 [place] [address] 11-02-2024 14:04-0500 Heart rate 74 /min Dr. Jae Belcher MD Work Phone: 1(929)988-926226 [place] [address] 11-02-2024 14:04-0500 SaO2% (BldA) [Mass fraction] 92 % Dr. Jae Belcher MD Work Phone: 7(348)874-746726 [place] [address] 11-02-2024 14:04-0500 Systolic blood pressure 111 mm[Hg] Dr. Jae Belcher MD Work Phone: 9(786)871-985626 [place] [address] 10-29-2024 10:28-0500 Body mass index (BMI) [Ratio] 23.1 kg/m2 Dr. Jae Belcher MD Work Phone: 5(834)701-578426 [place] [address] 10-29-2024 10:28-0500 Body weight 71.[address] Jae Belcher MD Work Phone: 3(544)582-841526 [place] [address] 10-29-2024 10:28-0500 Diastolic blood pressure 71 mm[Hg] Dr. Jae Belcher MD Work Phone: 0(515)762-863326 [place] [address] 10-29-2024 10:28-0500 Heart rate 74 /min Dr. Jae Belcher MD Work Phone: 6(396)566-304426 [place] [address] 10-29-2024 10:28-0500 Respiratory rate 18 /min Dr. Jae Belcher MD Work Phone: 5(878)448-217426 [place] [address] 10-29-2024 10:28-0500 SaO2% (BldA) [Mass fraction] 92 % Dr. Jae Belcher MD Work Phone: 3(072)445-857226 [place] [address] 10-29-2024 10:28-0500 Systolic blood pressure 111 mm[Hg] Dr. Jae Belcher MD Work Phone: [facility] 10-13-2024 12:18-0500 Body height 172 cm Savanna Ngozi MANAGER HOSPICE.SURGICAL ONCOLOGIST Work Phone: [facility] 10-13-2024 12:18-0500 Body mass index (BMI) [Ratio] 23.36 kg/m2 Savanna Ngozi MANAGER HOSPICE.SURGICAL ONCOLOGIST Work Phone: [facility] 10-13-2024 12:18-0500 Body weight 69.1 kg Savanna Ngozi MANAGER HOSPICE.SURGICAL ONCOLOGIST Work Phone: [facility] 10-13-2024 12:18-0500 Diastolic blood pressure 70 mm[Hg] Savanna Ngozi MANAGER HOSPICE.SURGICAL ONCOLOGIST Work Phone: [facility] 10-13-2024 12:18-0500 Heart rate 80 /min Savanna Ngozi MANAGER HOSPICE.SURGICAL ONCOLOGIST Work Phone: [facility] 10-13-2024 12:18-0500 Respiratory rate 12 /min Savanna Gnozi MANAGER HOSPICE.SURGICAL ONCOLOGIST Work Phone: [facility] 10-13-2024 12:18-0500 SaO2% (BldA) [Mass fraction] 96 % Savanna Ngozi MANAGER HOSPICE.SURGICAL ONCOLOGIST Work Phone: [facility] 10-13-2024 12:18-0500 Systolic blood pressure 114 mm[Hg] Savanna Ngozi MANAGER HOSPICE.SURGICAL ONCOLOGIST Work Phone: [facility] 10-07-2024 15:47-0500 Body mass index (BMI) [Ratio] 22.45 kg/m2 Joaquim Galloway MD Work Phone: [facility] 10-07-2024 15:47-0500 Body weight 68.95 kg Joaquim Galloway MD Work Phone: [facility] 10-07-2024 15:47-0500 Diastolic blood pressure 81 mm[Hg] Joaquim Galloway MD Work Phone: [facility] 10-07-2024 15:47-0500 Heart rate 76 /min Joaquim Galloway MD Work Phone: [facility] 10-07-2024 15:47-0500 SaO2% (BldA) [Mass fraction] 93 % Joaquim Galloway MD Work Phone: [facility] 10-07-2024 15:47-0500 Systolic blood pressure 138 mm[Hg] Joaquim Galloway MD Work Phone: [facility] 09-23-2024 12:59-0500 Diastolic blood pressure 77 mm[Hg] Dr. Jae Belcher MD Work Phone: 8(745)013-580926 [place] [address] 09-23-2024 12:59-0500 Heart rate 75 /min Dr. Jae Belcher MD Work Phone: 4(377)586-370526 [place] [address] 09-23-2024 12:59-0500 Respiratory rate 18 /min Dr. Jae Belcher MD Work Phone: 5(809)099-963526 [place] [address] 09-23-2024 12:59-0500 Systolic blood pressure 116 mm[Hg] Dr. Jae Belcher MD Work Phone: 4(771)512-770826 [place] [address] 09-22-2024 08:45-0500 Diastolic blood pressure 68 mm[Hg] Dr. Jae Belcher MD Work Phone: 0(898)201-702626 [place] [address] 09-22-2024 08:45-0500 Heart rate 77 /min Dr. Jae Belcher MD Work Phone: 8(282)964-507453 [place] [address] 09-22-2024 08:45-0500 Respiratory rate 26 /min Dr. Jae Belcher MD Work Phone: 0(396)785-545126 [place] [address] 09-22-2024 08:45-0500 Systolic blood pressure 119 mm[Hg] Dr. Jae Belcher MD Work Phone: 5(301)249-799526 [place] [address] 09-22-2024 08:15-0500 Body temperature 97.2 [degF] Dr. Jae Belcher MD Work Phone: 6(583)381-633426 [place] [address] 09-16-2024 10:29-0500 Body mass index (BMI) [Ratio] 23.4 kg/m2 Dr. Jae Belcher MD Work Phone: 1(000)842-184526 [place] [address] 09-16-2024 10:29-0500 Body weight 72.[address] Jae Belcher MD Work Phone: 2(290)662-351926 [place] [address] 09-16-2024 10:29-0500 Diastolic blood pressure 66 mm[Hg] Dr. Jae eBlcher MD Work Phone: 1(316)350-006526 [place] [address] 09-16-2024 10:29-0500 Heart rate 67 /min Dr. Jae Belcher MD Work Phone: 1(148)568-959526 [place] [address] 09-16-2024 10:29-0500 Respiratory rate 18 /min Dr. Jae Belcher MD Work Phone: 2(340)475-848026 [place] [address] 09-16-2024 10:29-0500 SaO2% (BldA) [Mass fraction] 95 % Dr. Jae Belcher MD Work Phone: 2(311)102-008426 [place] [address] 09-16-2024 10:29-0500 Systolic blood pressure 105 mm[Hg] Dr. Jae Belcher MD Work Phone: 6(987)345-580626 [place] [address] 09-08-2024 12:28-0500 Diastolic blood pressure 55 mm[Hg] Dr. Jae Belcher MD Work Phone: 7(245)640-461926 [place] [address] 09-08-2024 12:28-0500 Heart rate 70 /min Dr. Jae Belcher MD Work Phone: 8(173)706-742226 [place] [address] 09-08-2024 12:28-0500 Respiratory rate 18 /min Dr. Jae Belcher MD Work Phone: 9(791)522-322026 [place] [address] 09-08-2024 12:28-0500 Systolic blood pressure 116 mm[Hg] Dr. Jae Belcher MD Work Phone: 2(122)308-413026 [place] [address] 09-07-2024 08:29-0500 Diastolic blood pressure 65 mm[Hg] Dr. Jae Belcher MD Work Phone: 3(979)321-455126 [place] [address] 09-07-2024 08:29-0500 Heart rate 68 /min Dr. Jae Belcher MD Work Phone: 0(213)149-787626 [place] [address] 09-07-2024 08:29-0500 Respiratory rate 18 /min Dr. Jae Belcher MD Work Phone: 9(711)472-164226 [place] [address] 09-07-2024 08:29-0500 Systolic blood pressure 109 mm[Hg] Dr. Jae Belcher MD Work Phone: 6(085)999-279326 [place] [address] 09-07-2024 07:57-0500 Body temperature 96.8 [degF] Dr. Jae Belcher MD Work Phone: 7(389)146-110926 [place] [address] 09-03-2024 07:27-0500 Body mass index (BMI) [Ratio] 25.5 kg/m2 Dr. Jae Belcher MD Work Phone: 0(611)705-449226 [place] [address] 09-03-2024 07:27-0500 Body weight 78.[address] Jae Belcher MD Work Phone: 8(677)628-633226 [place] [address] 09-03-2024 07:27-0500 Diastolic blood pressure 82 mm[Hg] Dr. Jae Belcher MD Work Phone: 6(863)864-190026 [place] [address] 09-03-2024 07:27-0500 Heart rate 61 /min Dr. Jae Belcher MD Work Phone: 6(701)043-950226 [place] [address] 09-03-2024 07:27-0500 Respiratory rate 18 /min Dr. Jae Belcher MD Work Phone: 2(337)354-476026 [place] [address] 09-03-2024 07:27-0500 SaO2% (BldA) [Mass fraction] 93 % Dr. Jae Belcher MD Work Phone: 3(509)360-069526 [place] [address] 09-03-2024 07:27-0500 Systolic blood pressure 135 mm[Hg] Dr. Jae Belcher MD Work Phone: 7(431)794-360626 [place] [address] 08-28-2024 13:19-0500 Body mass index (BMI) [Ratio] 26.61 kg/m2 Savanna Ngozi MANAGER HOSPICE.SURGICAL ONCOLOGIST Work Phone: [facility] 08-28-2024 13:19-0500 Body temperature 98.29 [degF] Savanna Ngozi MANAGER HOSPICE.SURGICAL ONCOLOGIST Work Phone: [facility] 08-28-2024 13:19-0500 Body weight 79.38 kg Savanna Ngozi MANAGER HOSPICE.SURGICAL ONCOLOGIST Work Phone: [facility] 08-28-2024 13:19-0500 Diastolic blood pressure 68 mm[Hg] Savanna GuadalupeNgozi MANAGER HOSPICE.SURGICAL ONCOLOGIST Work Phone: [facility] 08-28-2024 13:19-0500 Heart rate 66 /min Savanna Ngozi MANAGER HOSPICE.SURGICAL ONCOLOGIST Work Phone: [facility] 08-28-2024 13:19-0500 SaO2% (BldA) [Mass fraction] 96 % Savanna Ngozi MANAGER HOSPICE.SURGICAL ONCOLOGIST Work Phone: [facility] 08-28-2024 13:19-0500 Systolic blood pressure 122 mm[Hg] Savanna Ngzoi MANAGER HOSPICE.SURGICAL ONCOLOGIST Work Phone: [facility] 08-22-2024 10:19-0500 SaO2% (BldA) [Mass fraction] 95 % Joaquim Galloway MD Work Phone: [facility] 08-22-2024 06:46-0500 Body mass index (BMI) [Ratio] 26.37 kg/m2 Joaquim Galloway MD Work Phone: [facility] 08-22-2024 06:46-0500 Body weight 81 kg Joaquim Galloway MD Work Phone: [facility] 08-22-2024 05:35-0500 Body temperature 97.59 [degF] Joaquim Galloway MD Work Phone: [facility] 08-22-2024 05:35-0500 Diastolic blood pressure 66 mm[Hg] Joaquim Galloway MD Work Phone: [facility] 08-22-2024 05:35-0500 Heart rate 76 /min Joaquim Galloway MD Work Phone: [facility] 08-22-2024 05:35-0500 Respiratory rate 18 /min Joaquim Galloway MD Work Phone: [facility] 08-22-2024 05:35-0500 Systolic blood pressure 111 mm[Hg] Joaquim Galloway MD Work Phone: [facility] 08-14-2024 14:43-0500 Body temperature 37 Joaquim Galloway MD Work Phone: [facility] 08-14-2024 14:43-0500 SaO2% (BldA) [Mass fraction] 99 % Joaquim Galloway MD Work Phone: [facility] 08-14-2024 14:37-0500 Body temperature 37.0 degrees Celsius [facility] Comment on above: Performed By: #### [id number] ####STEFANO TROY (6 [id number])[facility] ([facility] [place], [place])[address] [place] [address] 08-14-2024 14:37-0500 SaO2% (BldA) [Mass fraction] 99 % [facility] Comment on above: Performed By: #### [id number] ####STEFANO TROY (6 [id number])[facility] ([facility] [place] [place])[address] [place] [address] 08-14-2024 07:51-0500 Body temperature 37 Joaquim Galloway MD Work Phone: [facility] 08-14-2024 07:51-0500 SaO2% (BldA) [Mass fraction] 98 % Joaquim Galloway MD Work Phone: [facility] 08-14-2024 07:42-0500 Body temperature 37.0 degrees Celsius [facility] Comment on above: Performed By: #### 11124-7 ####STEFANO TROY (6 0522)[facility] ([facility] [place] [place])[address] [place] [address] 08-14-2024 07:42-0500 SaO2% (BldA) [Mass fraction] 98 % [facility] Comment on above: Performed By: #### [id number] ####STEFANO TROY (6 0522)[facility] ([facility] [place], [place])[address] [place] [address] 08-13-2024 10:32-0500 Body temperature 37 Joaquim Galloway MD Work Phone: [facility] 08-13-2024 10:32-0500 SaO2% (BldA) [Mass fraction] 97 % Joaquim Galloway MD Work Phone: [facility] 08-13-2024 10:21-0500 Body temperature 37.0 degrees Celsius [facility] Comment on above: Performed By: #### [id number] ####STEFANO TROY (6 0522)[facility] ([facility] [place] [place])[address] [place] [address] 08-13-2024 10:21-0500 SaO2% (BldA) [Mass fraction] 97 % [facility] Comment on above: Performed By: #### [id number] ####STEFANO TROY (6 0522)[facility] ([facility] [place], [place])[address] [place] [address] 08-12-2024 18:08-0500 Body temperature 37 Joaquim Galloway MD Work Phone: [facility] 08-12-2024 18:06-0500 Body temperature 37 Joaquim Galloway MD Work Phone: [facility] 08-12-2024 18:06-0500 SaO2% (BldA) [Mass fraction] 100 % Joaquim Galloway MD Work Phone: [facility] 08-12-2024 18:02-0500 Body temperature 37.0 degrees Celsius [facility] Comment on above: Order Comment: Please obtain from distal port of CVCBedside RN to obtain sample Performed By: #### 2 4339-4 ####STEFANO TROY ([id number])[facility] ([facility] [place], [place])[address] [place] [address] 08-12-2024 17:59-0500 Body temperature 37.0 degrees Celsius [facility] Comment on above: Performed By: #### 86407-3 ####STEFANO TROY (6 0522)[facility] ([facility] [place], [place])[address] [place] [address] 08-12-2024 17:59-0500 SaO2% (BldA) [Mass fraction] 100 % [facility] Comment on above: Performed By: #### 98421-6 ####STEFANO TROY (6 0522)[facility] ([facility] [place] [place])[address] [place] [address] 08-12-2024 17:04-0500 Body temperature 37 Joaquim Galloway MD Work Phone: [facility] 08-12-2024 17:04-0500 SaO2% (BldA) [Mass fraction] 94 % Joaquim Galloway MD Work Phone: [facility] 08-12-2024 16:47-0500 Body temperature 37.0 degrees Celsius [facility] Comment on above: Performed By: #### 68536-4 ####STEFANO TROY (6 0522)[facility] ([facility] [place], [place])[address] [place] [address] 08-12-2024 16:47-0500 SaO2% (BldA) [Mass fraction] 94 % [facility] Comment on above: Performed By: #### [id number] ####STEFANO TROY (6 0522)[facility] ([facility] [place] [place])[address] [place] [address] 08-11-2024 16:19-0500 Body temperature 37 Joaquim Galloway MD Work Phone: [facility] 08-11-2024 15:59-0500 Body temperature 37.0 degrees Celsius [facility] Comment on above: Order Comment: Place draw from CVP port Performed By: #### 2 4339-4 ####STEFANO TROY ([id number])[facility] ([facility] [place], [place])[address] [place] [address] 08-10-2024 14:55-0500 Body temperature 37.0 degrees Celsius [facility] Comment on above: Performed By: #### [id number] ####STEFANO TROY (6 0522)[facility] ([facility] [place] [place])[address] [place] [address] 08-10-2024 14:55-0500 SaO2% (BldA) [Mass fraction] 100 % [facility] Comment on above: Performed By: #### 84046-2 ####STEFANO TROY (6 0522)[facility] ([facility] [place] [place])[address] [place] [address] 08-10-2024 13:41-0500 Body temperature 37.0 degrees Celsius [facility] Comment on above: Performed By: #### 76675-6 ####STEFANO TROY (6 0522)[facility] ([facility] [place] [place])[address] [place] [address] 08-10-2024 13:41-0500 SaO2% (BldA) [Mass fraction] 99 % [facility] Comment on above: Performed By: #### [id number] ####STEFANO TROY (6 0522)[facility] ([facility] [place] [place])[address] [place] [address] 08-10-2024 12:11-0500 Body temperature 37.0 degrees Celsius [facility] Comment on above: Result Comment: NOTE: Patient Results ar e Not Corrected for Temperature Performed By: #### 9 3685-6 ####STEFANO TROY ([id number])[facility] ([facility] [place] [place])[address] [place] [address] 08-10-2024 12:11-0500 SaO2% (BldA) [Mass fraction] 100 % [facility] Comment on above: Performed By: #### [id number] ####STEFANO TROY (6 0522)[facility] ([facility] [place] [place])[address] [place] [address] 08-10-2024 11:22-0500 Body temperature 37.0 degrees Celsius [facility] Comment on above: Result Comment: NOTE: Patient Results ar e Not Corrected for Temperature Performed By: #### 9 [id number] ####STEFANO TROY ([id number])[facility] ([facility] [place] [place])[address] [place] [address] 08-10-2024 11:22-0500 SaO2% (BldA) [Mass fraction] 100 % [facility] Comment on above: Performed By: #### [id number] ####STEFANO TROY (6 0522)[facility] ([facility] [place] [place])[address] [place] [address] 08-10-2024 10:42-0500 Body temperature 37.0 degrees Celsius [facility] Comment on above: Result Comment: NOTE: Patient Results ar e Not Corrected for Temperature Performed By: #### 9 [id number] ####STEFANO TROY ([id number])[facility] ([facility] [place] [place])[address] [place] [address] 08-10-2024 10:42-0500 SaO2% (BldA) [Mass fraction] 100 % [facility] Comment on above: Performed By: #### 27543-5 ####STEFANO TROY (6 0522)[facility] ([facility] [place] [place])[address] [place] [address] 08-10-2024 10:06-0500 Body temperature 37.0 degrees Celsius [facility] Comment on above: Result Comment: NOTE: Patient Results ar e Not Corrected for Temperature Performed By: #### 9 [id number] ####STEFANO TROY ([id number])[facility] ([facility] [place] [place])[address] [place] [address] 08-10-2024 10:06-0500 SaO2% (BldA) [Mass fraction] 100 % [facility] Comment on above: Performed By: #### [id number] ####STEFANO TROY (6 0522)[facility] ([facility] [place] [place])[address] [place] [address] 08-10-2024 09:40-0500 Body temperature 37.0 degrees Celsius [facility] Comment on above: Result Comment: NOTE: Patient Results ar e Not Corrected for Temperature Performed By: #### 9 [id number] ####STEFANO TROY ([id number])[facility] ([facility] [place] [place])[address] [place] [address] 08-10-2024 09:40-0500 SaO2% (BldA) [Mass fraction] 100 % [facility] Comment on above: Performed By: #### 99062-1 ####STEFANO TROY (6 0522)[facility] ([facility] [place] [place])[address] [place] [address] 08-10-2024 09:31-0500 Body temperature 37.0 degrees Celsius [facility] Comment on above: Result Comment: NOTE: Patient Results ar e Not Corrected for Temperature Performed By: #### 2 4339-4 ####STEFANO TROY ([id number])[facility] ([facility] [place] [place])[address] [place] [address] 08-10-2024 09:27-0500 Body temperature 37.0 degrees Celsius [facility] Comment on above: Result Comment: NOTE: Patient Results ar e Not Corrected for Temperature Performed By: #### 9 [id number] ####STEFANO TROY ([id number])[facility] ([facility] [place] [place])[address] [place] [address] 08-10-2024 09:27-0500 SaO2% (BldA) [Mass fraction] 100 % [facility] Comment on above: Performed By: #### 44280-3 ####STEFANO TROY (6 0522)[facility] ([facility] [place] [place])[address] [place] [address] 08-10-2024 08:47-0500 Body temperature 37.0 degrees Celsius [facility] Comment on above: Result Comment: NOTE: Patient Results ar e Not Corrected for Temperature Performed By: #### 9 [id number] ####STEFANO TROY ([id number])[facility] ([facility] [place] [place])[address] [place] [address] 08-10-2024 08:47-0500 SaO2% (BldA) [Mass fraction] 100 % [facility] Comment on above: Performed By: #### 38697-5 ####STEFANO TROY (6 0522)[facility] ([facility] [place] [place])[address] [place] [address] 08-10-2024 07:59-0500 Body temperature 37.0 degrees Celsius [facility] Comment on above: Result Comment: NOTE: Patient Results ar e Not Corrected for Temperature Performed By: #### 9 [id number] ####STEFANO TROY ([id number])[facility] ([facility] [place] [place])[address] [place] [address] 08-10-2024 07:59-0500 SaO2% (BldA) [Mass fraction] 100 % [facility] Comment on above: Performed By: #### 25321-0 ####STEFANO TROY (6 0522)[facility] ([facility] [place] [place])[address] [place] [address] 08-10-2024 07:08-0500 Body height 175.3 cm Joaquim Galloway MD Work Phone: [facility] 06-24-2024 14:06-0400 Body height 175.3 cm Joaquim Galloway MD Work Phone: [facility] 06-24-2024 14:06-0400 Body mass index (BMI) [Ratio] 25.1 kg/m2 Joaquim Galloway MD Work Phone: [facility] 06-24-2024 14:06-0400 Body weight 77.11 kg Joaquim Galloway MD Work Phone: [facility] 06-24-2024 14:06-0400 Diastolic blood pressure 64 mm[Hg] Joaquim Galloway MD Work Phone: [facility] 06-24-2024 14:06-0400 Heart rate 63 /min Joaquim Galloway MD Work Phone: [facility] 06-24-2024 14:06-0400 SaO2% (BldA) [Mass fraction] 94 % Joaquim Galloway MD Work Phone: [facility] 06-24-2024 14:06-0400 Systolic blood pressure 108 mm[Hg] Joaquim Galloway MD Work Phone: [facility] 06-09-2024 18:00-0400 Diastolic blood pressure 64 mm[Hg] Flaquita Hendrix MD Work Phone: [facility] 06-09-2024 18:00-0400 Heart rate 54 /min Flaquita Hendrix MD Work Phone: [facility] 06-09-2024 18:00-0400 Respiratory rate 16 /min Flaquita Hendrix MD Work Phone: [facility] 06-09-2024 18:00-0400 SaO2% (BldA) [Mass fraction] 96 % Flaquita Hendrix MD Work Phone: [facility] 06-09-2024 18:00-0400 Systolic blood pressure 132 mm[Hg] Flaquita Hendrix MD Work Phone: [facility] 06-09-2024 16:25-0400 Body temperature 98.1 [degF] Flaquita Hendrix MD Work Phone: [facility] 06-09-2024 09:56-0400 Body height 175.3 cm Flaquita Hendrix MD Work Phone: [facility] 06-09-2024 09:56-0400 Body mass index (BMI) [Ratio] 25.39 kg/m2 Flaquita Hendrix MD Work Phone: [facility] 06-09-2024 09:56-0400 Body weight 78 kg Flaquita Hendrix MD Work Phone: [facility] 05-29-2024 10:42-0400 Body mass index (BMI) [Ratio] 26.05 kg/m2 Jae Belcher MD Work Phone: [facility] 05-29-2024 10:42-0400 Body temperature 97.7 [degF] Jae Belcher MD Work Phone: [facility] 05-29-2024 10:42-0400 Body weight 77.7 kg Jae Belcher MD Work Phone: [facility] 05-29-2024 10:42-0400 Diastolic blood pressure 78 mm[Hg] Jae Belcher MD Work Phone: [facility] 05-29-2024 10:42-0400 Heart rate 68 /min Jae Belcher MD Work Phone: [facility] 05-29-2024 10:42-0400 Respiratory rate 18 /min Jae Belcher MD Work Phone: [facility] 05-29-2024 10:42-0400 SaO2% (BldA) [Mass fraction] 94 % Jae Belcher MD Work Phone: [facility] 05-29-2024 10:42-0400 Systolic blood pressure 118 mm[Hg] Jae Belcher MD Work Phone: [facility] 05-27-2024 13:44-0400 Body height 175.3 cm Joaquim Galloway MD Work Phone: [facility] 05-27-2024 13:44-0400 Body mass index (BMI) [Ratio] 25.45 kg/m2 Joaquim Galloway MD Work Phone: [facility] 05-27-2024 13:44-0400 Body weight 78.16 kg Joaquim Galloway MD Work Phone: [facility] 05-27-2024 13:44-0400 Diastolic blood pressure 63 mm[Hg] Joaquim Galloway MD Work Phone: [facility] 05-27-2024 13:44-0400 Heart rate 60 /min Joaquim Galloway MD Work Phone: [facility] 05-27-2024 13:44-0400 SaO2% (BldA) [Mass fraction] 95 % Joaquim Galloway MD Work Phone: [facility] 05-27-2024 13:44-0400 Systolic blood pressure 120 mm[Hg] Joaquim Galloway MD Work Phone: [facility] 05-20-2024 11:33-0400 Body mass index (BMI) [Ratio] 26.68 kg/m2 Krislyn Aberegg PA Work Phone: [facility] 05-20-2024 11:33-0400 Body temperature 98.71 [degF] Krislyn Aberegg PA Work Phone: [facility] 05-20-2024 11:33-0400 Body weight 79.6 kg Krislycoreen Aberegg PA Work Phone: [facility] 05-20-2024 11:33-0400 Diastolic blood pressure 70 mm[Hg] Krislyn Aberegg PA Work Phone: [facility] 05-20-2024 11:33-0400 Heart rate 68 /min Krislyn Aberegg PA Work Phone: [facility] 05-20-2024 11:33-0400 Respiratory rate 16 /min Krislyn Aberegg PA Work Phone: [facility] 05-20-2024 11:33-0400 SaO2% (BldA) [Mass fraction] 97 % Krislyn Aberegg PA Work Phone: [facility] 05-20-2024 11:33-0400 Systolic blood pressure 124 mm[Hg] Krislyn Aberegg PA Work Phone: [facility] 02-25-2024 09:30-0400 Body mass index (BMI) [Ratio] 26.91 kg/m2 Jae Belcher MD Work Phone: [facility] 02-25-2024 09:30-0400 Body temperature 97.7 [degF] Jae Belcher MD Work Phone: [facility] 02-25-2024 09:30-0400 Body weight 80.29 kg Jae Belcher MD Work Phone: [facility] 02-25-2024 09:30-0400 Diastolic blood pressure 78 mm[Hg] Jae Belcher MD Work Phone: [facility] 02-25-2024 09:30-0400 Heart rate 64 /min Jae Belcher MD Work Phone: [facility] 02-25-2024 09:30-0400 Respiratory rate 16 /min Jae Belcher MD Work Phone: [facility] 02-25-2024 09:30-0400 Systolic blood pressure 120 mm[Hg] Jae Belcher MD Work Phone: [facility] 12-10-2023 11:12-0400 Body weight 80.74 kg Mendoza Puente FAN Work Phone: [facility] 09-03-2023 13:44-0500 Diastolic blood pressure 72 mm[Hg] Dr. Jae Belcher Work Phone: [facility] 09-03-2023 13:44-0500 Heart rate 68 /min Dr. Jae Belcher Work Phone: 5(925)758-483653 [place] [address] 09-03-2023 13:44-0500 Respiratory rate 16 /min Dr. Jae Belcher Work Phone: 5(402)732-553726 [place] [address] 09-03-2023 13:44-0500 Systolic blood pressure 114 mm[Hg] Dr. Jae Belcher Work Phone: 8(162)613-496526 [place] [address] 08-20-2023 09:08-0500 Body height 175.[address] Jae Belcher Work Phone: 2(664)834-642826 [place] [address] 08-20-2023 09:08-0500 Body mass index (BMI) [Ratio] 28 kg/m2 Dr. Jae Belcher Work Phone: 4(984)900-108326 [place] [address] 08-20-2023 09:08-0500 Body weight 86.[address] Jae Belcher Work Phone: 6(796)[phone] [place] [address] 08-20-2023 09:08-0500 Diastolic blood pressure 83 mm[Hg] Dr. Jae Belcher Work Phone: 6(739)[phone] [place] [address] 08-20-2023 09:08-0500 Heart rate 53 /min Dr. Jae Belcher Work Phone: 0(260)[phone] [place] [address] 08-20-2023 09:08-0500 Respiratory rate 18 /min Dr. Jae Belcher Work Phone: [phone] [place] [address] 08-20-2023 09:08-0500 SaO2% (BldA) [Mass fraction] 95 % Dr. Jae Belcher Work Phone: 4(163)[phone] [place] [address] 08-20-2023 09:08-0500 Systolic blood pressure 152 mm[Hg] Dr. Jae Belchre Work Phone: [facility] 11-29-2022 13:33-0400 Body height 175.[address] Jae Belcher Work Phone: [facility] 11-29-2022 13:33-0400 Body mass index (BMI) [Ratio] 29.2 kg/m2 Dr. Jae Belcher Work Phone: 6(349)[phone] [place] [address] 11-29-2022 13:33-0400 Body weight 89.[address] Jae Belcher Work Phone: 6(453)114-842626 [place] [address] 11-29-2022 13:33-0400 Diastolic blood pressure 78 mm[Hg] Dr. Jae Belcher Work Phone: 8(320)025-567926 [place] [address] 11-29-2022 13:33-0400 Heart rate 72 /min Dr. Jae Belcher Work Phone: 7(681)[phone] [place] [address] 11-29-2022 13:33-0400 Respiratory rate 18 /min Dr. Jae Belcher Work Phone: 2(125)781-917726 [place] [address] 11-29-2022 13:33-0400 SaO2% (BldA) [Mass fraction] 94 % Dr. Jae Belcher Work Phone: [facility] 11-29-2022 13:33-0400 Systolic blood pressure 130 mm[Hg] Dr. Jae Belcher Work Phone: [facility] 08-22-2022 17:53-0500 Body height 172.7 cm Savanna Older MANAGER HOSPICE.SURGICAL ONCOLOGIST Work Phone: [facility] 08-22-2022 17:53-0500 Body temperature 98.6 [degF] Savanna Older MANAGER HOSPICE.SURGICAL ONCOLOGIST Work Phone: [facility] 08-22-2022 17:53-0500 Body weight 87.09 kg Savanna Older MANAGER HOSPICE.SURGICAL ONCOLOGIST Work Phone: [facility] 08-22-2022 17:53-0500 Diastolic blood pressure 86 mm[Hg] Savanna Older MANAGER HOSPICE.SURGICAL ONCOLOGIST Work Phone: [facility] 08-22-2022 17:53-0500 Heart rate 70 /min Savanna Older MANAGER HOSPICE.SURGICAL ONCOLOGIST Work Phone: [facility] 08-22-2022 17:53-0500 Respiratory rate 14 /min Asvanna Older MANAGER HOSPICE.SURGICAL ONCOLOGIST Work Phone: [facility] 08-22-2022 17:53-0500 Systolic blood pressure 124 mm[Hg] Savanna Older MANAGER HOSPICE.SURGICAL ONCOLOGIST Work Phone: [facility] 07-24-2022 08:37-0500 Body temperature 96.6 [degF] Jennifer Luong MANAGER HOSPICE.SURGICAL ONCOLOGIST Work Phone: [facility] 07-24-2022 08:37-0500 Body weight 85.73 kg Jennifer Luong MANAGER HOSPICE.SURGICAL ONCOLOGIST Work Phone: [facility] 07-24-2022 08:37-0500 Diastolic blood pressure 67 mm[Hg] Jennifer Luong MANAGER HOSPICE.SURGICAL ONCOLOGIST Work Phone: [facility] 07-24-2022 08:37-0500 Heart rate 75 /min [place] Luong MANAGER HOSPICE.SURGICAL ONCOLOGIST Work Phone: [facility] 07-24-2022 08:37-0500 Systolic blood pressure 118 mm[Hg] Jennifer Luong MANAGER HOSPICE.SURGICAL ONCOLOGIST Work Phone: [facility] 07-05-2022 10:37-0400 Body height 175.[address] Pantera Thomas III Work Phone: [facility] Work Phone: 07-05-2022 10:37-0400 Diastolic blood pressure 80 mm[Hg] Dr. Pantera Thomas III Work Phone: [facility] Work Phone: 07-05-2022 10:37-0400 Systolic blood pressure 140 mm[Hg] Dr. Pantera Thomas III Work Phone: [facility] Work Phone: 07-05-2022 10:35-0400 Body mass index (BMI) [Ratio] 28.2 kg/m2 Dr. Pantera Thomas III Work Phone: [facility] Work Phone: 07-05-2022 10:35-0400 Body weight 86.[address] Pantera Thomas III Work Phone: [facility] Work Phone: 07-05-2022 10:35-0400 Heart rate 62 /min Dr. Pantera Thomas III Work Phone: [facility] Work Phone: 07-05-2022 10:35-0400 Respiratory rate 18 /min Dr. Pantera Thomas III Work Phone: [facility] Work Phone: 07-05-2022 10:35-0400 SaO2% (BldA) [Mass fraction] 93 % Dr. Pantera Thomas III Work Phone: [facility] Work Phone: Encounters Encounter Date Encounter Type Care Provider Facility Start: 04-21-2025 ambulatory [facility] Facility :[facility] Start: 02-17-2025 ambulatory Self Referred Facility: [facility] Start: 01-18-2025 End: 01-18-[address] Berna Parsons MD -[facility] Work Phone: Start: 01-18-2025 End: 01-18-2025 ambulatory Berna Jaqueline Facility:[facility] Start: 01-14-2025 End: 02-06-2025 Discharged Recurring Self Referred -Nutritional Servic es Work Phone: Start: 01-14-2025 End: 02-06-[address] Jae Belcher MD Work Phone: [facility] Work Phone: Start: 01-05-2025 End: 01-05-2025 Patient encounter procedure Mendoza Boogie PA -Laboratory Work Phone: Start: 01-05-2025 End: 01-05-2025 ambulatory Jae Belcher Facility:[facility] Start: 12-31-2024 ambulatory Tulio Keenan Facility:[facility] Start: 12-31-2024 Registered Referred Mendoza JULIEN -Cardiovascular Services Work Phone: Start: 12-22-2024 End: 12-22-2024 Patient encounter procedure Mendoza JULIEN -[facility] Work Phone: Start: 12-22-2024 End: 12-22-2024 ambulatory Jae Belcher Facility:[facility] Start: 12-21-2024 End: 12-21-[address] Jae Belcher MD Work Phone: [facility] Work Phone: Start: 12-21-2024 End: 12-21-2024 Patient encounter procedure Mendoza JULIEN -Radiology, [facility] Work Phone: Start: 12-21-2024 End: 12-21-2024 ambulatory Jae Belcher Facility:[facility] Start: 12-18-2024 ambulatory [place] Ree [facility] Start: 11-16-2024 End: 11-16-[address] Jae Belcher MD Work Phone: [facility] Work Phone: Start: 11-16-2024 End: 11-16-2024 Patient encounter procedure Mendoza JULIEN -Ultrasound, [facility] Work Phone: Start: 11-16-2024 End: 11-16-2024 ambulatory Jae Belcher Facility:[facility] Start: 11-12-2024 ambulatory Lisbeth Garvey Facility: [facility] Start: 11-12-2024 Non-patient / Non-visit Lisbeth GONZALES -[facility] Start: 11-12-2024 End: 11-12-[address] Jae Belcher MD Work Phone: [facility] Work Phone: Start: 11-12-2024 End: 11-12-2024 Patient encounter procedure Mendoza JULIEN -Ultrasound, [facility] Work Phone: Start: 11-11-2024 End: [address] Jae Belcher MD Work Phone: [facility] Work Phone: Start: 11-11-2024 End: [address] Tulio Keenan MD -Cardiac Rehab Work Phone: Start: 11-11-[address] Tulio Keenan MD -Cardiac Rehab Work Phone: Start: 11-09-2024 End: 01-09-2025 Follow-up encounter Savanna Kothari APRN.CNP Work Phone: [facility] [place] Start: 11-09-2024 End: 11-09-[address] Jae Belcher MD Work Phone: [facility] Work Phone: Start: 11-09-2024 End: 11-09-2024 Patient encounter procedure Mendoza JULIEN -Radiology, [facility] Work Phone: Start: 11-09-2024 End: 11-09-2024 ambulatory Jae Belcher Facility:[facility] Start: 11-02-2024 End: 11-02-[address] Jae Belcher MD Work Phone: [facility] Work Phone: Start: 11-02-2024 End: 11-02-[address] Tulio Keenan MD -Cardiac Rehab Work Phone: Start: 11-02-2024 End: 11-02-2024 ambulatory Tulio Keenan Facility:[facility] Start: 10-29-2024 End: 10-29-2024 Follow-up encounter Jae Belcher MD Work Phone: [facility] [place] Start: 10-29-2024 End: 10-29-2024 Patient encounter procedure Mendoza JULIEN -[facility] Work Phone: Start: 10-29-2024 End: 10-29-2024 ambulatory Jae Belcher Facility:[facility] Start: 10-28-2024 End: 10-28-2024 ambulatory DHARA MARIUM Facility:[facility] Start: 10-27-2024 ambulatory DHARA BELCHER Faci lity:[facility] Start: 10-13-2024 End: 10-13-2024 ambulatory DHARA BELCHER Facility:[facility] Start: 10-13-2024 End: 10-13-2024 Patient encounter procedure Savanna Lawler Ngozi HICKMAN Work Phone: [facility] [place] Comment on above: Medicare annual well ness visit, subsequent (Primary Dx); Thrombocytosis; Chronic renal impairment, stage 3a (HCC); Aneurysm of ascending aorta without rupture (HCC); Controlled type 2 diabetes mellitus without complication, without long-term current use of insulin (HCC); Essential hypertension, benign; Hyperlipidemia, unspecified hyperlipidemia type Start: 10-12-2024 End: 10-12-2024 ambulatory JAE BELCHER Facility:[facility] Start: 10-07-2024 End: 10-07-2024 Office outpatient visit 15 minutes Joaquim Galloway MD Work Phone: [facility] Comment on above: S/P ascending aortic replacement Start: 10-07-2024 End: 10-07-2024 Subsequent hospital visit by physician Nikhil [id number] X-Ray 1 [facility] Comment on above: Aneurysm of the asce nding aorta, without rupture ([facility]-HCC) Start: 10-07-2024 End: 10-07-2024 ambulatory JOAQUIM GALLOWAY [facility] Start: 09-30-2024 End: 09-30-2024 Subsequent hospital visit by physician Nikhil [id number] Ct 1 [facility] Comment on above: Aneurysm of the asce nding aorta, without rupture ([facility]-HCC) Start: 09-30-2024 End: 09-30-2024 ambulatory JOAQUIM James LAVERNE [facility] Start: 09-23-2024 ambulatory Christina Chapman NP Fac ility:[facility] Start: 09-23-2024 Non-patient / Non-visit Christian MARTINC -[facility] Start: 09-23-2024 End: 09-23-2024 Patient encounter procedure Mendoza JULIEN -Ultrasound, [facility] Work Phone: Start: 09-22-2024 End: 09-23-2024 ambulatory Jae Belcher Facility:[facility] Start: 09-22-2024 Non-patient / Non-visit Christina MARTINC -[facility] Start: 09-22-2024 End: 09-22-2024 Patient encounter procedure Mendoza JULIEN -Ultrasound, [facility] Work Phone: Start: 09-22-2024 End: 09-22-2024 ambulatory Jae Belcher Facility:[facility] Start: 09-16-2024 End: 09-16-2024 Patient encounter procedure Mendoza JULIEN -[facility] Work Phone: Start: 09-16-2024 End: 09-16-2024 ambulatory Jae Belcher Facility:[facility] Start: 09-16-2024 End: 09-16-2024 ambulatory Jae Belcher Facility:[facility] Start: 09-15-2024 End: 09-15-2024 Patient encounter procedure Mendoza JULIEN -Radiology, [facility] Work Phone: Start: 09-15-2024 End: 09-15-2024 ambulatory Jae Belcher Facility:[facility] Start: 09-13-2024 End: 09-14-2024 Refill Jae Belcher MD Work Phone: [facility] [place] Comment on above: Refill Request Start: 09-11-2024 End: 09-11-2024 Patient encounter procedure Mendoza JULIEN -Laboratory Work Phone: Start: 09-11-2024 End: 09-11-2024 ambulatory Mendoza JULIEN Facility:[facility] Start: 09-08-2024 ambulatory Christina Chapman NP Fac ility:[facility] Start: 09-08-2024 Non-patient / Non-visit Christina hernandez BRICK OFF BEARER-C -[facility] Start: 09-08-2024 End: 09-08-2024 Patient encounter procedure Mendoza JULIEN -Ultrasound, [facility] Work Phone: Start: 09-07-2024 End: 09-08-2024 ambulatory Mendoza JULIEN Facility:[facility] Start: 09-07-2024 Non-patient / Non-visit Christina hernandez [facility] [employer] [facility]-C -[facility] Start: 09-07-2024 End: 09-07-2024 Patient encounter procedure Mendoza JULIEN -Ultrasound, [facility] Work Phone: Start: 09-07-2024 End: 09-07-2024 ambulatory Mendoza JULIEN Facility:[facility] Start: 09-03-2024 End: 09-03-2024 Patient encounter procedure Mendoza JULIEN -[facility] Work Phone: Start: 09-03-2024 End: 09-03-2024 ambulatory Jae Belcher Facility:[facility] Start: 09-03-2024 End: 09-03-2024 ambulatory Jae Belcher Facility:[facility] Start: 08-28-2024 End: 08-28-2024 Patient encounter procedure Savanna Kothari APRN.SURGICAL ONCOLOGIST Work Phone: [facility] [place] Comment on above: Bilateral lower extr emity edema (Primary Dx); Palpitations; Dyspnea on exertion; Positional lightheadedness; Venous insufficiency; Weakness; Pleural effusion; S/P aortic aneurysm repair; Blood loss anemia Start: 08-28-2024 End: 08-28-2024 ambulatory JAE BELCHER Facility:[facility] Start: 08-27-2024 End: 08-27-2024 ambulatory JAE BELCHER [facility] Start: 08-25-2024 ambulatory EH MCKEON [facility] Start: 08-19-2024 ambulatory Self Referred Facility: [facility] Start: 08-10-2024 End: 08-10-2024 Evaluation and management of inpatient [facility] 1 Formerly named [facility] Comment on above: Arrived Start: 08-10-2024 End: 08-22-2024 Evaluation and management of inpatient [facility] Work Phone: Start: 07-29-2024 End: 07-29-2024 Subsequent hospital visit by physician Ahu X-Ray 3 [facility] Comment on above: Aneurysm of ascendin g aorta without rupture ([facility]-HCC) Start: 07-29-2024 End: 07-29-2024 ambulatory [facility] Start: 07-29-2024 End: 07-29-2024 ambulatory [facility] Start: 07-29-2024 End: 07-29-2024 Encounter for other preprocedural examination [facility] Start: 07-23-2024 End: 07-23-2024 ambulatory JAE BELCHER Facility:[facility] Start: 07-23-2024 End: 07-23-2024 Subsequent hospital visit by physician Screen Mammo On License Of [facility] Comment on above: Screening mammogram for breast cancer [Z12.31] Start: 07-22-2024 End: 07-22-2024 ambulatory [facility] Start: 07-13-2024 End: 08-08-2024 ambulatory Self Referred Facility:[facility] Start: 06-24-2024 End: 06-24-2024 Office outpatient visit 40 minutes Joaquim Galloway MD Work Phone: [facility] Comment on above: Aneurysm of the asce nding aorta, without rupture ([facility]-HCC) Start: 06-24-2024 End: 06-24-2024 ambulatory JOAQUIM Jacob LAVERNE [facility] Start: 06-09-2024 End: 06-09-2024 ambulatory JAE HEATHZ [facility] Start: 06-09-2024 End: 06-09-2024 Subsequent hospital visit by physician Flaquita Hendrix MD Work Phone: [facility] Comment on above: Ascending aorta dila tion (CMS-HCC) (Primary Dx); Nonrheumatic mitral valve regurgitation; Nonrheumatic tricuspid valve regurgitation; Nonrheumatic aortic valve insufficiency; Aneurysm of the ascending aorta, without rupture (CMS-HCC) Start: 06-03-2024 End: 06-03-2024 Subsequent hospital visit by physician Med Echo/Stress [facility] Comment on above: Ascending aorta dila tion (CMS-HCC); Nonrheumatic mitral valve regurgitation; Nonrheumatic tricuspid valve regurgitation; Nonrheumatic aortic valve insufficiency Start: 06-03-2024 End: 06-03-2024 ambulatory JAE JIMÉNEZ BELCHER [facility] Start: 05-29-2024 End: 05-29-2024 ambulatory JAE BELCHER Facility:[facility] Start: 05-29-2024 End: 05-29-2024 Office outpatient visit 25 minutes Jae Belcher MD Work Phone: [facility] [place] Comment on above: Encounter for immuni zation (Primary Dx); Burning with urination; Abrasion of right lower extremity, initial encounter; Controlled type 2 diabetes mellitus without complication, without long-term current use of insulin (HCC); Aneurysm of ascending aorta without rupture (HCC) Start: 05-27-2024 End: 05-27-2024 Office outpatient new 60 minutes Joaquim Galloway MD Work Phone: [facility] Comment on above: Ascending aorta dila tion (CMS-HCC); Nonrheumatic mitral valve regurgitation; Nonrheumatic tricuspid valve regurgitation; Nonrheumatic aortic valve insufficiency; Shortness of breath Start: 05-27-2024 End: 05-27-2024 ambulatory JOAQUIM GALLOWAY [facility] Start: 05-23-2024 End: 05-25-2024 Telephone encounter Claribel Hooper APRN.CNP Work Phone: [facility] Comment on above: Results Start: 05-22-2024 End: 05-22-2024 Subsequent hospital visit by physician Rad External Film EF RAD EXTERNAL [facility]M [facility] Comment on above: Ascending aortic ane urysm, unspecified whether ruptured ([facility]-HCC) Start: 05-22-2024 End: 05-22-2024 [facility] Start: 05-20-2024 End: 05-20-2024 Patient encounter procedure Torri JULIEN Work Phone: [facility] Comment on above: Urinary frequency (P rimary Dx) Start: 05-20-2024 End: 05-20-2024 ambulatory JAE BELCHER Facility:[facility] Start: 05-08-2024 End: 05-08-2024 Refill Savanna Kothari APRN.CNP Work Phone: [facility] [place] Comment on above: Refill Request Start: 05-05-2024 End: 05-05-2024 ambulatory Roman Alberto Facility:[facility] Start: 03-23-2024 Telephone encounter Jae bueno MD Work Phone: [facility] [place] Comment on above: Results Start: 03-19-2024 End: 03-19-2024 ambulatory JAE BELCHER Facility:[facility] Start: 03-19-2024 End: 03-19-2024 Subsequent hospital visit by physician [facility] Mob 1 Work Phone: Radiology Comment on above: Chronic renal impair ment, stage 3a ([facility]) [N18.31] Start: 03-11-2024 End: 03-11-2024 Nursing evaluation of patient and report Abdifatah Avelar RN Work Phone: Endocrinology Comment on above: Prediabetes (Primary Dx) Start: 03-11-2024 End: 03-11-2024 ambulatory JAE BELCHER Facility:[facility] Start: 02-25-2024 End: 02-25-2024 ambulatory JAE BELCHER Facility:[facility] Start: 02-25-2024 End: 02-25-2024 Patient encounter procedure Jae Belcher MD Work Phone: [facility] [place] Comment on above: Controlled type 2 di abetes mellitus without complication, without long-term current use of insulin (HCC) (Primary Dx); Chronic renal impairment, stage 3a (HCC) Start: 02-24-2024 End: 02-24-2024 ambulatory JAE BELCHER Facility:[facility] Start: 02-17-2024 Telephone encounter Jae bueno MD Work Phone: [facility] [place] Comment on above: Orders Start: 01-02-2024 End: 01-02-2024 Patient encounter procedure Amanda Testfrank Work Phone: Podiatry Comment on above: Hallux rigidus of catia th feet (Primary Dx); Contusion of lesser toe of left foot without damage to nail, initial encounter Start: 01-02-2024 End: 01-02-2024 ambulatory AMANDA FLEMING Facility:[facility] Start: 01-02-2024 End: 01-02-2024 Subsequent hospital visit by physician Yuliana On License [facility] Alvarenga Work Phone: Radiology Comment on above: Pain [R52] Start: 12-19-2023 Telephone encounter Jae bueno MD Work Phone: [facility] [place] Comment on above: Patient Question Start: 12-10-2023 End: 12-10-[address] Work Phone: [facility] Start: 12-10-2023 End: 12-10-2023 Nutrition therapy Mendoza Puente RD Work Phone: Nutrition Therapy Comment on above: Nutrition Assessment ; Patient Education Start: 11-19-2023 ambulatory Jae godoy MD Work Phone: [facility] [place] Comment on above: Test Results 11/15/23 Start: 11-15-2023 End: 11-15-2023 ambulatory JAE BELCHER Facility:[facility] Start: 11-11-2023 Refill Savanna simms MANAGER HOSPICE.SURGICAL ONCOLOGIST Work Phone: [facility] [place] Comment on above: Refill Request Start: 10-25-2023 Telephone encounter Jae bueno MD Work Phone: [facility] [place] Comment on above: Patient Update Start: 10-17-2023 Orders Only aJe godoy MD Work Phone: [facility] [place] Comment on above: Chronic renal impair ment, stage 3a (HCC) (Primary Dx) Start: 09-03-2023 End: 09-03-[address] Jae Belcher Work Phone: [facility] Work Phone: Start: 08-30-2023 End: 08-30-[address] Jae Belcher Work Phone: [facility] Work Phone: Start: 08-30-2023 End: 08-30-[address] Jae Belcher Work Phone: [facility]-Cardiovascula r Services Work Phone: Start: 08-20-2023 End: 08-20-[address] Jae Belcher Work Phone: [facility] Work Phone: Start: 08-13-2023 End: 08-13-[address] Jae Belcher Work Phone: [facility]-Cat Scan, [facility] Work Phone: Start: 07-23-2023 Documentation procedure Mammog reynaldo Coordinator [facility] Start: 07-23-2023 Letter encounter Mammography Coordinator [facility] Department Start: 07-23-2023 End: 07-23-2023 Subsequent hospital visit by physician Screen Mammo On License Of [facility] Mammogram Start: 05-13-2023 Refill Savanna Do APRN, .CNP Work Phone: Family [facility] Comment on above: Refill Request Start: 04-25-2023 Refill Jae godoy MD Work Phone: [facility] Comment on above: Refill Request; Refi ll Request Start: 03-05-2023 Refill Savanna Older MANAGER HOSPICE .SURGICAL ONCOLOGIST Work Phone: [facility] Comment on above: Refill Request Start: 01-09-2023 End: 01-09-[address] Jae Belcher Work Phone: [facility] Work Phone: Start: 01-09-2023 End: 01-09-[address] Jae Belcher Work Phone: [facility]-Laboratory Start: 11-29-2022 End: 11-29-[address] Jae Belcher Work Phone: [facility] Start: 11-13-2022 Refill Savanna Older MANAGER HOSPICE .SURGICAL ONCOLOGIST Work Phone: [facility] Comment on above: Refill Request Start: 08-28-2022 End: 08-28-2022 Nursing evaluation of patient and report Mi Nurse Work Phone: Family [facility] Comment on above: Need for vaccination (Primary Dx) Start: 08-22-2022 End: 08-22-2022 Patient encounter procedure Savanna Older MANAGER HOSPICE.SURGICAL ONCOLOGIST Work Phone: Internal [facility] Comment on above: Medicare annual well ness visit, subsequent (Primary Dx); Essential hypertension, benign; Impaired fasting glucose Start: 08-16-2022 End: 08-16-[address] Pantera Thomas III Work Phone: [facility] Work Phone: Start: 08-16-2022 End: 08-16-[address] Pantera Thomas III Work Phone: [facility]-Outpatient Bone Densitometry Start: 08-14-2022 End: 08-14-[address] Pantera Thomas III [facility] Start: 08-08-2022 Refill Savanna Do MANAGER HOSPICE .SURGICAL ONCOLOGIST Work Phone: [facility] Comment on above: Refill Request Start: 07-24-2022 End: 07-24-2022 ambulatory Jennifer Luong MANAGER HOSPICE.SURGICAL ONCOLOGIST Work Phone: Hematology/Oncology Comment on above: Ductal carcinoma in situ (DCIS) of right breast (Primary Dx) Start: 07-24-2022 End: 07-24-2022 Patient encounter procedure Jennifer Luong MANAGER HOSPICE.SURGICAL ONCOLOGIST Work Phone: [facility] Start: 07-05-2022 End: 07-05-[address] Pantera Thomas III Work Phone: [facility] Start: 05-08-2022 Refill [facility] Provider [facility] Comment on above: Refill Request Start: 08-27-2018 Encounter for other preprocedural examination [facility] Start: 08-27-2018 Patient encounter procedure [facility] [facility] Procedures Date Procedure Procedure Detail Performing Clinician Start: 12-21-2024 X-ray of chest, PA a nd lateral views Dr. Jae Belcher MD Work Phone: Start: 11-16-2024 Plain chest X-ray Dr. Jenny Belcher MD Work Phone: Start: 11-16-2024 Ultrasonic guidance for thoracentesis Dr. Jae Belcher MD Work Phone: Start: 11-12-2024 Plain chest X-ray Dr. Jenny Belcher MD Work Phone: Start: 11-12-2024 Ultrasonic guidance for thoracentesis Dr. Jae Belcher MD Work Phone: Start: 11-09-2024 X-ray of chest, PA a nd lateral views Dr. Jae Belcher MD Work Phone: Start: 10-29-2024 Evaluation of diagno stic study results Dr. Jae Belcher MD Work Phone: Start: 09-30-2024 Ct angiography chest w/contrast/noncontrast Joaquim Galloway MD Work Phone: Start: 09-23-2024 Plain chest X-ray Dr. Jenny Belcher MD Work Phone: Start: 09-23-2024 Ultrasonic guidance for thoracentesis Dr. Jae Belcher MD Work Phone: Start: 09-22-2024 Plain chest X-ray Dr. Jenny Belcher MD Work Phone: Start: 09-22-2024 Ultrasonic guidance for thoracentesis Dr. Jae Belcher MD Work Phone: Start: 09-16-2024 Evaluation of diagno stic study results Dr. Jae Belcher MD Work Phone: Start: 09-15-2024 X-ray of chest, PA a nd lateral views Dr. Jae Belcher MD Work Phone: Start: 09-08-2024 Plain chest X-ray Dr. Jenny Belcher MD Work Phone: Start: 09-08-2024 Ultrasonic guidance for thoracentesis Dr. Jae Belcher MD Work Phone: Start: 09-07-2024 Plain chest X-ray Dr. Jenny Belcher MD Work Phone: Start: 09-07-2024 Ultrasonic guidance for thoracentesis Dr. Jae Belcher MD Work Phone: Start: 09-03-2024 X-ray of chest, PA a nd lateral views Dr. Jae Belcher MD Work Phone: Start: 09-03-2024 Evaluation of diagno stic study results Dr. Jae Belcher MD Work Phone: Start: 08-22-2024 Renal function panel Yogesh Mckeon MANAGER HOSPICE-SURGICAL ONCOLOGIST Work Phone: Start: 08-21-2024 Urnls dip stick/tabl et rgnt auto w/o microscopy Adriana Garnica PA-C Work Phone: Start: 08-21-2024 Radiologic exam ches t single view Adriana Garnica PA-C Work Phone: Start: 08-21-2024 Blood count complete automated Adriana Garnica PA-C Work Phone: Start: 08-21-2024 AIRWAY CLEARANCE TECHNIQUES Adriana Garnica PA-C Work Phone: Start: 08-21-2024 Glucose quantitative blood xcpt reagent strip Joaquim Galloway MD Work Phone: Start: 08-21-2024 EXTRA TUBES Joaqumi alanis MD Work Phone: Start: 08-21-2024 LAVENDER TOP Joaquim alanis MD Work Phone: Start: 08-21-2024 Renal function panel Yogesh Mckeon MANAGER HOSPICE-SURGICAL ONCOLOGIST Work Phone: Start: 08-20-2024 Glucose quantitative blood xcpt reagent strip Jaoquim Galloway MD Work Phone: Start: 08-20-2024 Glucose quantitative blood xcpt reagent strip Joaquim Galloway MD Work Phone: Start: 08-20-2024 Glucose quantitative blood xcpt reagent strip Joaquim Galloway MD Work Phone: Start: 08-20-2024 AIRWAY CLEARANCE TECHNIQUES Julissa Storm MANAGER HOSPICE-SURGICAL ONCOLOGIST Work Phone: Start: 08-20-2024 EXTRA TUBES Joaquim alanis MD Work Phone: Start: 08-20-2024 LAVENDER TOP Joaquim alanis MD Work Phone: Start: 08-20-2024 Renal function panel Yogesh Mckeon MANAGER HOSPICE-SURGICAL ONCOLOGIST Work Phone: Start: 08-19-2024 AIRWAY CLEARANCE TECHNIQUES Julissa Storm MANAGER HOSPICE-SURGICAL ONCOLOGIST Work Phone: Start: 08-19-2024 Glucose quantitative blood xcpt reagent strip Joaquim Galloway MD Work Phone: Start: 08-19-2024 AIRWAY CLEARANCE TECHNIQUES Julissa Christie Storm MANAGER HOSPICE-SURGICAL ONCOLOGIST Work Phone: Start: 08-19-2024 Radiologic exam ches t single view Eh Keren Linda MANAGER HOSPICE-SURGICAL ONCOLOGIST Work Phone: Start: 08-19-2024 Glucose quantitative blood xcpt reagent strip Joaquim Galloway MD Work Phone: Start: 08-19-2024 Glucose quantitative blood xcpt reagent strip Joaquim Galloway MD Work Phone: Start: 08-19-2024 Ecg routine ecg w/le ast 12 lds trcg only w/o i&r Adriana Garnica PA-C Work Phone: Start: 08-19-2024 Renal function panel Ki tazmisaelyobani Keren GonzalezMckeon MANAGER HOSPICE-SURGICAL ONCOLOGIST Work Phone: Start: 08-19-2024 Glucose quantitative blood xcpt reagent strip Joaquim Galloway MD Work Phone: Start: 08-18-2024 Glucose quantitative blood xcpt reagent strip Joaquim Galloway MD Work Phone: Start: 08-18-2024 Glucose quantitative blood xcpt reagent strip Joaquim Galloway MD Work Phone: Start: 08-18-2024 Radiologic exam ches t single view Pee Tavares MANAGER HOSPICE-SURGICAL ONCOLOGIST Work Phone: Start: 08-18-2024 Thoracentesis needle /cath pleura w/imaging Eh Keren Linda MANAGER HOSPICE-SURGICAL ONCOLOGIST Work Phone: Start: 08-18-2024 Glucose quantitative blood xcpt reagent strip Joaquim Galloway MD Work Phone: Start: 08-18-2024 Radiologic exam ches t 2 views Eh Keren Linda MANAGER HOSPICE-SURGICAL ONCOLOGIST Work Phone: Start: 08-18-2024 AIRWAY CLEARANCE TECHNIQUES Julissa Storm MANAGER HOSPICE-SURGICAL ONCOLOGIST Work Phone: Start: 08-18-2024 Glucose quantitative blood xcpt reagent strip Joaquim Galloway MD Work Phone: Start: 08-18-2024 AIRWAY CLEARANCE TECHNIQUES Julissa Christie Storm MANAGER HOSPICE-SURGICAL ONCOLOGIST Work Phone: Start: 08-18-2024 Glucose quantitative blood xcpt reagent strip Joaquim Galloway MD Work Phone: Start: 08-18-2024 Renal function panel Ki taniayobani Gonzalezelsen MANAGER HOSPICE-SURGICAL ONCOLOGIST Work Phone: Start: 08-17-2024 Glucose quantitative blood xcpt reagent strip Joaquim Galloway MD Work Phone: Start: 08-17-2024 Glucose quantitative blood xcpt reagent strip Joaquim Galloway MD Work Phone: Start: 08-17-2024 Glucose quantitative blood xcpt reagent strip Joaquim Galloway MD Work Phone: Start: 08-17-2024 AIRWAY CLEARANCE TECHNIQUES Julissa Storm MANAGER HOSPICE-SURGICAL ONCOLOGIST Work Phone: Start: 08-17-2024 Radiologic exam ches t 2 views Eh Mckeon MANAGER HOSPICE-SURGICAL ONCOLOGIST Work Phone: Start: 08-17-2024 AIRWAY CLEARANCE TECHNIQUES Julissa Storm MANAGER HOSPICE-SURGICAL ONCOLOGIST Work Phone: Start: 08-17-2024 End: 08-17-2024 Renal function panel Eh Mckeon MANAGER HOSPICE-SURGICAL ONCOLOGIST Work Phone: Start: 08-16-2024 Glucose quantitative blood xcpt reagent strip Joaquim Galloway MD Work Phone: Start: 08-16-2024 Glucose quantitative blood xcpt reagent strip Joaquim Galloway MD Work Phone: Start: 08-16-2024 AIRWAY CLEARANCE TECHNIQUES Julissa A Storm MANAGER HOSPICE-SURGICAL ONCOLOGIST Work Phone: Start: 08-16-2024 AIRWAY CLEARANCE TECHNIQUES Julissa Storm MANAGER HOSPICE-SURGICAL ONCOLOGIST Work Phone: Start: 08-16-2024 Glucose quantitative blood xcpt reagent strip Jose Roberto L Pack DO Work Phone: Start: 08-16-2024 Glucose quantitative blood xcpt reagent strip Jose Roberto L Pack DO Work Phone: Start: 08-16-2024 AIRWAY CLEARANCE TECHNIQUES Julissa Storm MANAGER HOSPICE-SURGICAL ONCOLOGIST Work Phone: Start: 08-16-2024 End: 08-16-2024 Renal function panel Adriana Candelario Work Phone: Start: 08-15-2024 Glucose quantitative blood xcpt reagent strip Jose Roberto L Pack DO Work Phone: Start: 08-15-2024 Glucose quantitative blood xcpt reagent strip Jose Roberto L Pack DO Work Phone: Start: 08-15-2024 AIRWAY CLEARANCE TECHNIQUES Julissa Storm MANAGER HOSPICE-SURGICAL ONCOLOGIST Work Phone: Start: 08-15-2024 AIRWAY CLEARANCE TECHNIQUES Julissa Christie Bauer MANAGER HOSPICE-SURGICAL ONCOLOGIST Work Phone: Start: 08-15-2024 Glucose quantitative blood xcpt reagent strip Jose Roberto L Pack DO Work Phone: Start: 08-15-2024 Glucose quantitative blood xcpt reagent strip Jose Roberto L Pack DO Work Phone: Start: 08-15-2024 AIRWAY CLEARANCE TECHNIQUES Julissa Storm MANAGER HOSPICE-SURGICAL ONCOLOGIST Work Phone: Start: 08-15-2024 Renal function panel Ca masood Garnica PA-C Work Phone: Start: 08-14-2024 Glucose quantitative blood xcpt reagent strip Jose Roberto L Pack DO Work Phone: Start: 08-14-2024 Smr prim src gram/gi emsa stain bct fungi/cell Julissa Shahnaz Dotty MANAGER HOSPICE-SURGICAL ONCOLOGIST Work Phone: Start: 08-14-2024 AIRWAY CLEARANCE TECHNIQUES Julissa Storm MANAGER HOSPICE-SURGICAL ONCOLOGIST Work Phone: Start: 08-14-2024 End: 08-14-2024 Chloride gelyd Eh Veliz Mckeon MANAGER HOSPICE-SURGICAL ONCOLOGIST Work Phone: Start: 08-14-2024 Glucose quantitative blood xcpt reagent strip Jose Roberto L Pack DO Work Phone: Start: 08-14-2024 AIRWAY CLEARANCE TECHNIQUES Julissa Storm MANAGER HOSPICE-SURGICAL ONCOLOGIST Work Phone: Start: 08-14-2024 End: 08-14-2024 Chloride gelyd Eh Veliz Mckeon MANAGER HOSPICE-SURGICAL ONCOLOGIST Work Phone: Start: 08-14-2024 Radiologic exam ches t single view Ehyobani Mckeon MANAGER HOSPICE-SURGICAL ONCOLOGIST Work Phone: Start: 08-14-2024 AIRWAY CLEARANCE TECHNIQUES Julissa Storm MANAGER HOSPICE-SURGICAL ONCOLOGIST Work Phone: Start: 08-14-2024 Ecg routine ecg w/le ast 12 lds trcg only w/o i&r Adriana Garnica PA-C Work Phone: Start: 08-14-2024 Renal function panel Ca masood Garnica PA-C Work Phone: Start: 08-13-2024 Glucose quantitative blood xcpt reagent strip Jose Roberto L Pack DO Work Phone: Start: 08-13-2024 Glucose quantitative blood xcpt reagent strip Jose Roberto L Pack DO Work Phone: Start: 08-13-2024 AIRWAY CLEARANCE TECHNIQUES Julissa Storm MANAGER HOSPICE-SURGICAL ONCOLOGIST Work Phone: Start: 08-13-2024 Glucose quantitative blood xcpt reagent strip Jose Roberto L Pack DO Work Phone: Start: 08-13-2024 AIRWAY CLEARANCE TECHNIQUES Julissa Storm MANAGER HOSPICE-SURGICAL ONCOLOGIST Work Phone: Start: 08-13-2024 Chloride gelyd Eh Veliz Mckeon MANAGER HOSPICE-SURGICAL ONCOLOGIST Work Phone: Start: 08-13-2024 Radiologic exam ches t single view Eh Mckeon MANAGER HOSPICE-SURGICAL ONCOLOGIST Work Phone: Start: 08-13-2024 Glucose quantitative blood xcpt reagent strip Jose Roberto Woodruff DO Work Phone: Start: 08-13-2024 AIRWAY CLEARANCE TECHNIQUES Julissa Christie Dotty MANAGER HOSPICE-SURGICAL ONCOLOGIST Work Phone: Start: 08-13-2024 Ecg routine ecg w/le ast 12 lds trcg only w/o i&r Adriana Garnica PA-C Work Phone: Start: 08-13-2024 Renal function panel Ca masood Garnica PA-C Work Phone: Start: 08-12-2024 Urinalysis microscop ic panel - Urine Qualitative by Automated Jasmine Lacy MANAGER HOSPICE-SURGICAL ONCOLOGIST Work Phone: Start: 08-12-2024 End: 08-12-2024 Urnls dip stick/tablet reagent auto microscopy Jasmine Lacy MANAGER HOSPICE-SURGICAL ONCOLOGIST Work Phone: Start: 08-12-2024 End: 08-12-2024 Chloride bld Jasmine Lacy MANAGER HOSPICE-CN P Work Phone: Start: 08-12-2024 AIRWAY CLEARANCE TECHNIQUES Julissa Christie Storm MANAGER HOSPICE-SURGICAL ONCOLOGIST Work Phone: Start: 08-12-2024 End: 08-12-2024 Blood count complete auto&auto difrntl wbc Jose Roberto Woodruff DO Work Phone: Start: 08-12-2024 Radiologic exam ches t single view Eh Mckeon MANAGER HOSPICE-SURGICAL ONCOLOGIST Work Phone: Start: 08-12-2024 Echo transthorc r-t 2d w/wo m-mode rec f-up/lmtd Eh Mckeon MANAGER HOSPICE-SURGICAL ONCOLOGIST Work Phone: Start: 0 End: 08-12-2024 Calcium ionized Eh Mckeon MANAGER HOSPICE-SURGICAL ONCOLOGIST Work Phone: Start: 08-12-2024 PREPARE RBC Eh Mckeon MANAGER HOSPICE-SURGICAL ONCOLOGIST Work Phone: Start: 08-12-2024 AIRWAY CLEARANCE TECHNIQUES Julissa Storm MANAGER HOSPICE-SURGICAL ONCOLOGIST Work Phone: Start: 08-12-2024 End: 08-12-2024 Blood count hematocrit Eh angela MANAGER HOSPICE-SURGICAL ONCOLOGIST Work Phone: Start: 08-12-2024 Glucose quantitative blood xcpt reagent strip Jose Roberto L Pack DO Work Phone: Start: 08-12-2024 AIRWAY CLEARANCE TECHNIQUES Julissa Christie Bauer MANAGER HOSPICE-SURGICAL ONCOLOGIST Work Phone: Start: 08-12-2024 End: 08-12-2024 Ecg routine ecg w/least 12 lds trcg only w/o i&r Adriana Garnica PA-C Work Phone: Start: 08-12-2024 End: 08-12-2024 TRANSFUSE RED BLOOD CELLS Eh vasquez MANAGER HOSPICE-SURGICAL ONCOLOGIST Work Phone: Start: 08-12-2024 Glucose quantitative blood xcpt reagent strip Jose Roberto L Pack DO Work Phone: Start: 08-12-2024 Radiologic exam ches t single view Eh Mckeon MANAGER HOSPICE-SURGICAL ONCOLOGIST Work Phone: Start: 08-12-2024 AIRWAY CLEARANCE TECHNIQUES Julissaabdelrahman Christie Bauer MANAGER HOSPICE-SURGICAL ONCOLOGIST Work Phone: Start: 08-12-2024 Renal function panel Ca masood Garnica PA-C Work Phone: Start: 08-12-2024 Blood count complete automated Bretzyl M Liscoe MANAGER HOSPICE-SURGICAL ONCOLOGIST Work Phone: Start: 08-11-2024 End: 08-12-2024 TRANSFUSE RED BLOOD CELLS Bretzyl M Lisc oe MANAGER HOSPICE-SURGICAL ONCOLOGIST Work Phone: Start: 08-11-2024 PREPARE RBC Bretzyl M Liscoe MANAGER HOSPICE-SURGICAL ONCOLOGIST Work Phone: Start: 08-11-2024 Glucose quantitative blood xcpt reagent strip Jose Roberto L Pack DO Work Phone: Start: 08-11-2024 AIRWAY CLEARANCE TECHNIQUES Julissa Christie Dotty MANAGER HOSPICE-SURGICAL ONCOLOGIST Work Phone: Start: 08-11-2024 AIRWAY CLEARANCE TECHNIQUES Julissa Shahnaz Dotty MANAGER HOSPICE-SURGICAL ONCOLOGIST Work Phone: Start: 08-11-2024 End: 08-11-2024 Chloride bld Alexy Burton MANAGER HOSPICE-SURGICAL ONCOLOGIST Work Phone: Start: 08-11-2024 Glucose quantitative blood xcpt reagent strip Jose Roberto L Pack DO Work Phone: Start: 08-11-2024 Glucose quantitative blood xcpt reagent strip Jose Roberto L Pack DO Work Phone: Start: 08-11-2024 Radiologic exam ches t single view Adriana JULIEN-C Work Phone: Start: 08-11-2024 Renal function panel Ca masood JULIEN-C Work Phone: Start: 08-10-2024 AIRWAY CLEARANCE TECHNIQUES Belen Lawler Liscokorey MANAGER HOSPICE-SURGICAL ONCOLOGIST Work Phone: Start: 08-10-2024 Glucose quantitative blood xcpt reagent strip Jose Roberto L Pack DO Work Phone: Start: 08-10-2024 End: 08-10-2024 TRANSFUSE CRYOPRECIPITATE POOLS Adriana JULIEN-C Work Phone: Start: 08-10-2024 PREPARE CRYOPRECIPIT ATE POOLS Adriana JULIEN-C Work Phone: Start: 08-10-2024 End: 08-10-2024 Blood count complete automated Adriana JULIEN-C Work Phone: Start: 08-10-2024 Radiologic exam ches t single view Adriana JULIEN-C Work Phone: Start: 08-10-2024 End: 08-10-2024 Chloride bld Adriana JULIEN-C Work Phone: Start: 08-10-2024 End: 08-10-2024 Ecg routine ecg w/least 12 lds trcg only w/o i&r Adriana JULIEN-C Work Phone: Start: 08-10-2024 PULSE OXIMETRY, CONTINUOUS Adriana JULIEN-Andree Work Phone: Start: 08-10-2024 End: 08-10-2024 TRANSFUSE PLATELETS Barrett ESTEBAN A Work Phone: Start: 08-10-2024 Chloride bld Joaquim alanis MD Work Phone: Start: 08-10-2024 End: 08-10-2024 TRANSFUSE PLATELETS Barrett ESTEBAN A Work Phone: Start: 08-10-2024 End: 08-10-2024 Coagulation time activated Joaquim Galloway MD Work Phone: Start: 08-10-2024 PREPARE PLATELETS Rip White CAA Work Phone: Start: 08-10-2024 End: 08-10-2024 Coagulation time activated Joaquim Galloway MD Work Phone: Start: 08-10-2024 Surgical pathology study Joaquim Galloway MD Work Phone: Start: 08-10-2024 End: 08-10-2024 Coagulation time activated Joaquim Galloway MD Work Phone: Start: 08-10-2024 End: 08-10-2024 As-aort grf w/card byp f/aortic ds oth/thn dsj Joaquim Galloway MD Work Phone: Start: 08-10-2024 VERAB/VERIFY ABORH Aliza Galloway MD Work Phone: Start: 08-10-2024 PREPARE RBC Jah Andr ews DO Work Phone: Start: 08-10-2024 ANESTHESIA INTRAOPER ATIVE ANASTASIA Jah Olmedo DO Work Phone: Start: 07-23-2024 Mammography Ahu 3 Start: 06-09-2024 Cardiac catheterizat ion study Joaquim Galloway MD Work Phone: Start: 05-29-2024 Hemoglobin A1c/Hemoglobin.total in Blood Jae Belcher MD Work Phone: Start: 05-29-2024 Urnls dip stick/tabl et rgnt auto w/o microscopy Jae Belcher MD Work Phone: Start: 05-22-2024 CARD ECHOCARDIOGRAM NON BILL OUTSIDE STUDY ONLY Joaquim Galloway MD Work Phone: Start: 05-20-2024 Urnls dip stick/tabl et rgnt auto w/o microscopy Claribel Hooper MANAGER HOSPICE.SURGICAL ONCOLOGIST Work Phone: Start: 02-25-2024 Adult depression scr eening assessment Savanna Ngozi MANAGER HOSPICE.SURGICAL ONCOLOGIST Work Phone: Start: 08-29-2023 Lipid 1996 panel - S devin or Plasma Jae Belcher MD Work Phone: Start: 08-13-2023 CT angiography of ch est with contrast Dr. Jae Belcher Work Phone: Start: 07-23-2023 Mammography Rad Film Start: 08-29-2022 Lipid 1996 panel - S devin or Plasma Screen Wstr Start: 08-28-2022 [employer] COVI D-19 BIVALENT BOOSTER VACCINE, AGE 12+ YR Savanna Older MANAGER HOSPICE.SURGICAL ONCOLOGIST Work Phone: Start: 08-16-2022 Dual energy X-ray absorptiometry Dr. Pantera Thomas III Work Phone: Start: 08-14-2022 CT angiography of ch est with contrast Dr. Pantera Thomas III Work Phone: Start: 07-23-2022 Mammography [place] Carp enter MANAGER HOSPICE.SURGICAL ONCOLOGIST Work Phone: Start: 07-21-2021 Adult depression scr eening assessment [facility] Start: 07-20-2021 Mammography [facility] Provid er Start: 08-08-2018 Colonoscopy [facility] Prov[facility] er Plan of Treatment Date Care Activity Detail Author Start: 08-29-2028 Lipid panel Lipid Screening [facility] Start: 08-08-2028 Colonoscopy COLONOSCOPY [facility] Start: 08-08-2028 COLORECTAL CANCER SCREENING COLORECTAL CANCER SCREENING [facility] Start: 08-08-2028 Screening for malignant neoplasm of colon [facility] Start: 08-29-2027 Lipid 1996 panel - Serum or Plasma Lipid Screening [facility] Start: 08-29-2027 LIPID SCREEN LIPID SCREEN [facility] Start: 02-23-2027 Diabetes Screening Diabetes Screening [facility] Start: 11-14-2026 Diabetes Screening Diabetes Screening [facility] Start: 10-16-2026 Diabetes Screening Diabetes Screening [facility] Start: 08-25-2026 LIPID SCREEN LIPID SCREEN [facility] Start: 10-28-2025 Creatinine measurement Serum Creatinine [facility] Start: 10-28-2025 Hepatitis B screening Urine Albumin:Creatinine Ratio [facility] Start: 10-28-2025 Hepatitis B surface antibody level LDL Cholesterol [facility] Start: 10-13-2025 Annual PCP Team Chronic Disease Visit Annual PCP Team Chronic Disease Visit [facility] Start: 10-13-2025 BP Controlled (<130/80) BP Controlled (<130/80) [facility] Start: 10-13-2025 Urine microalbumin profile DTaP,Tdap,Td Vaccine (2 - Td or Tdap) [facility] Comment on above: Postponed from 06/21/2019 (Declined at t his time) Start: 10-12-2025 Creatinine measurement Serum Creatinine [facility] Start: 10-12-2025 Hepatitis B screening Urine Albumin:Creatinine Ratio [facility] Start: 10-12-2025 Hepatitis B surface antibody level LDL Cholesterol [facility] Start: 08-29-2025 DIABETES SCREEN DIABETES SCREEN [facility] Start: 08-29-2025 Diabetes Screening Diabetes Screening [facility] Start: 08-28-2025 Annual PCP Team Chronic Disease Visit Annual PCP Team Chronic Disease Visit [facility] Start: 08-28-2025 BP Controlled (<130/80) BP Controlled (<130/80) [facility] Start: 08-22-2025 Creatinine measurement Serum Creatinine [facility] Start: 08-21-2025 Diabetes mellitus screening [facility] Start: 08-10-2025 Diabetes mellitus screening Diabetes Screening [facility] Start: 07-23-2025 Screening for malignant neoplasm of breast [facility] Start: 06-03-2025 Creatinine measurement Serum Creatinine [facility] Start: 05-29-2025 Annual PCP Team Chronic Disease Visit Annual PCP Team Chronic Disease Visit [facility] Start: 05-29-2025 BP Controlled (<130/80) BP Controlled (<130/80) [facility] Start: 05-29-2025 Covid-19 Vaccine () Covid-19 Vaccine () [facility] Comment on above: Postponed from 05/10/2024 (Declined at t his time) Start: 05-29-2025 Covid-19 Vaccine () Covid-19 Vaccine () [facility] Comment on above: Postponed from 05/10/2024 (Declined at t his time) Start: 05-29-2025 Hemoglobin A1c measurement [facility] Start: 05-20-2025 BP Controlled (<130/80) BP Controlled (<130/80) [facility] Start: 04-27-2025 Hemoglobin A1c measurement HbA1C [facility] Start: 04-13-2025 End: 04-13-2025 Patient encounter procedure 04/13/2025 10:40 AM EDT Office Visit [facility] [address] [place] [address] Savanna Kothari, MANAGER HOSPICE.SURGICAL ONCOLOGIST [address] [place] [address] follow up 6 months [facility] Comment on above: follow up 6 months Start: 04-11-2025 Hemoglobin A1c measurement HbA1C [facility] Start: 02-24-2025 Annual PCP Team Chronic Disease Visit Annual PCP Team Chronic Disease Visit [facility] Start: 02-24-2025 Anxiety Screening Anxiety Screening [facility] Start: 02-24-2025 BP Controlled (<130/80) BP Controlled (<130/80) [facility] Start: 02-24-2025 Depression Screening Depression Screening [facility] Start: 02-23-2025 Creatinine measurement Serum Creatinine [facility] Start: 02-23-2025 Diabetes mellitus screening Diabetes Screening [facility] Start: 02-23-2025 Hemoglobin A1c measurement Diabetes: Hemoglobin A1C [facility] Start: 01-18-2025 Patient referral [facility] Work Phone: Start: 01-01-2025 Diabetic foot examination Diabetic Foot Exam [facility] Start: 2024 RSV Vaccine (1 - 1-dose 75+ series) RSV Vaccine (1 - 1-dose 75+ series) [facility] Start: 11-26-2024 Hemoglobin A1c measurement HbA1C [facility] Start: 11-16-2024 Patient discharge [facility] Start: 11-16-2024 Vital signs measurements [facility] Start: 11-14-2024 Creatinine measurement Serum Creatinine [facility] Start: 11-12-2024 Thoracentesis needle/cath pleura w/imaging ASPIRATE PLEURA W/ IMAGING [facility] Start: 11-12-2024 Patient discharge [facility] Start: 11-12-2024 Vital signs measurements [facility] Start: 11-02-2024 Patient referral to dietitian [facility] Start: 10-29-2024 Patient referral [facility] Work Phone: Start: 10-16-2024 Creatinine measurement Serum Creatinine [facility] Start: 10-13-2024 End: 01-12-2025 CBC W Auto Differential panel - Blood COMPLETE BLOOD COUNT AND DIFFERENTIAL Lab Routine Thrombocytosis Expected: 10/13/2024, Expires: 01/12/2025 [facility] Work Phone: Comment on above: Expected: 10/13/2024, Expires: Start: 10-13-2024 End: 01-12-2025 Ferritin [Mass/volume] in Serum or Plasma FERRITIN Lab Routine Thrombocytosis Expected: 10/13/2024, Expires: 01/12/2025 [facility] Comment on above: Expected: 10/13/2024, Expires: Start: 10-12-2024 End: 10-12-2024 Patient encounter procedure 10/12/2024 12:40 PM EST Office Visit [facility] [place] [address] [facility] [place] [address] Savanna Kothari, MANAGER HOSPICE.SURGICAL ONCOLOGIST [address] [place] [address] [employer] Comment on above: [employer] Start: 10-07-2024 End: 10-07-2024 ambulatory [facility] Start: 10-07-2024 End: 10-07-2024 Patient encounter procedure 10/07/2024 3:45 PM EST Office Visit [facility] [address] [place] [id number] [place] [address] [facility] [place] [address] [facility] Start: 09-23-2024 Patient discharge [facility] Start: 09-23-2024 Vital signs measurements [facility] Start: 09-22-2024 Thoracentesis needle/cath pleura w/imaging ASPIRATE PLEURA W/ IMAGING [facility] Start: 09-22-2024 Patient discharge [facility] Start: 09-22-2024 Vital signs measurements [facility] Start: 09-09-2024 Advance Directive Discussion Advance Directive Discussion [facility] Start: 09-08-2024 Patient discharge [facility] Start: 09-08-2024 Vital signs measurements [facility] Start: 09-08-2024 End: 09-08-2024 Patient encounter procedure 09/08/2024 10:00 AM EST Office Visit Internal Medicine [place] [address] [facility] [place] [address] Savanna Kothari, MANAGER HOSPICE.SURGICAL ONCOLOGIST [address] [place] [address] Medicare Wellness Internal Medicine [place] Comment on above: Medicare Wellness Start: 09-07-2024 Patient discharge [facility] Start: 09-07-2024 Vital signs measurements [facility] Start: 08-29-2024 Complete blood count Hemoglobin/Hematocrit [facility] Start: 08-29-2024 Hepatitis B surface antibody level LDL Cholesterol [facility] Start: 08-28-2024 End: 11-27-2024 Comprehensive metabolic 2000 panel - Serum or Plasma COMPREHENSIVE METABOLIC PANEL Lab Routine Controlled type 2 diabetes mellitus without complication, without long-term current use of insulin (HCC) Expected: 08/28/2024, Expires: 11/27/2024 [facility] Comment on above: Expected: 08/28/2024, Expires: Start: 08-28-2024 End: 11-27-2024 Hemoglobin A1c in Blood HEMOGLOBIN A1C Lab Routine Controlled type 2 diabetes mellitus without complication, without long-term current use of insulin (HCC) Expected: 08/28/2024, Expires: 11/27/2024 [facility] Comment on above: Expected: 08/28/2024, Expires: Start: 08-28-2024 End: 11-27-2024 Lipid 1996 panel - Serum or Plasma LIPID PANEL BASIC Lab Routine Controlled type 2 diabetes mellitus without complication, without long-term current use of insulin (HCC) Expected: 08/28/2024, Expires: 11/27/2024 [facility] Comment on above: Expected: 08/28/2024, Expires: Start: 08-28-2024 End: 11-27-2024 Microalbumin/Creatinine [Mass Ratio] in Urine ALBUMIN/CREATININE RATIO, URINE Lab Routine Controlled type 2 diabetes mellitus without complication, without long-term current use of insulin (HCC) Expected: 08/28/2024, Expires: 11/27/2024 [facility] Comment on above: Expected: 08/28/2024, Expires: 5 Start: 08-27-2024 End: 08-27-2024 ambulatory [facility] Start: 08-26-2024 Annual PCP Team Chronic Disease Visit Annual PCP Team Chronic Disease Visit [facility] Start: 08-26-2024 BP Controlled (<130/80) BP Controlled (<130/80) [facility] Start: 08-26-2024 Covid-19 Vaccine ( season) Covid-19 Vaccine () [facility] Comment on above: Postponed from 05/10/2023 (Declined at t his time) Start: 08-25-2024 DIABETES SCREEN DIABETES SCREEN [facility] Start: 08-10-2024 End: 08-10-2024 Admission to same day surgery center Formerly named [facility] [place] Comment on above: Ascending Aorta Replacement [16070 (CPT )] Ascending Aorta Repl acement; Left Atrial Appendage Closure [29196 (CPT )] Start: 08-10-2024 End: 08-10-2024 As-aort grf w/card byp f/aortic ds oth/thn dsj Repair Ascending Aorta Aneurysm of ascending aorta without rupture ([facility]) 08/10/2024 7:30 AM EST Virtual AHU A [place] Start: 08-10-2024 Subsequent hospital visit by physician 08/10/2024 6:00 AM EST Hospital Encounter Formerly named [facility] [place] [address] [place] [address] [place] [address] [address] Department [place] [address] Formerly named [facility] [place] Start: 07-23-2024 Mammography Mammogram Screening [facility] Start: 07-23-2024 Screening for malignant neoplasm of breast [facility] Start: 07-23-2024 End: 07-23-2024 Patient encounter procedure 07/23/2024 9:10 AM EST Appointment Mammogram [address] [place], [place] [id number] Mammogram Start: 07-10-2024 End: 03-18-2025 DBT Breast - bilateral screening DAVID SCREENING W OSVALDO Radiology Routine Screening mammogram for breast cancer Expected: 07/10/2024, Expires: 03/18/2025 [facility] Work Phone: Comment on above: Expected: 07/10/2024, Expires: Start: 06-09-2024 End: 06-09-2024 Admission to same day surgery center 06/09/2024 11:00 AM EDT - 06/09/2024 12:00 PM EDT Surgery Formerly named [facility] [address] [place] [address] Flaquita Hendrix MD [address] [facility] [place] [id number] [place] [id number] Left Heart Cath with Coronary Angiography and LV [41126 (CPT )] Formerly named [facility] Comment on above: Left Heart Cath with Coronary Angiograph y and LV [26253 (CPT )] Start: 06-09-2024 Subsequent hospital visit by physician 06/09/2024 11:00 AM EDT Hospital Encounter Formerly named [facility] [address] [place] [address] Flaquita Hendrix MD [address] [address] Ascending aorta dilation (CMS-HCC); Nonrheumatic mitral valve regurgitation; Nonrheumatic tricuspid valve regurgitation; Nonrheumatic aortic valve insufficiency Formerly named [facility] Comment on above: Ascending aorta dilation (CMS-HCC); Nonrheumatic mitral valve regurgitation; Nonrheumatic tricuspid valve regurgitation; Nonrheumatic aortic valve insufficiency Start: 05-29-2024 End: 05-29-2024 Patient encounter procedure [facility] [place] Comment on above: 3 month follow-up 3 month follow-up, n eed to schedule Annual Medicare Wellness Start: 05-27-2024 End: 05-27-2025 Basic metabolic 2000 panel - Serum or Plasma Basic Metabolic Panel Lab Routine Ascending aorta dilation (CMS-HCC) Nonrheumatic mitral valve regurgitation Nonrheumatic tricuspid valve regurgitation Nonrheumatic aortic valve insufficiency Expected: 05/27/2024 (Approximate), Expires: 05/27/2025 [facility] Work Phone: Comment on above: Expected: 05/27/2024 (Approximate), Expi res: 05/27/2025 Start: 05-27-2024 End: 09-18-2025 CBC panel - Blood by Automated count CBC Lab Routine Ascending aorta dilation (CMS-HCC) Nonrheumatic mitral valve regurgitation Nonrheumatic tricuspid valve regurgitation Nonrheumatic aortic valve insufficiency Expected: 05/27/2024 (Approximate), Expires: 05/27/2025 [facility] Work Phone: Comment on above: Expected: 05/27/2024 (Approximate), Expi res: 05/27/2025 Start: 05-27-2024 End: 05-27-2024 Patient encounter procedure 05/27/2024 2:00 PM EDT Office Visit [facility] [address] [place] [address] [place] [address] [place] [address] [address] Department of Surgery-[place], [place] [id number] [facility] Start: 05-27-2024 End: 05-27-2025 PT and aPTT panel - Platelet poor plasma by Coagulation assay Coagulation Screen Lab Routine Ascending aorta dilation (CMS-HCC) Nonrheumatic mitral valve regurgitation Nonrheumatic tricuspid valve regurgitation Nonrheumatic aortic valve insufficiency Shortness of breath Expected: 05/27/2024 (Approximate), Expires: 05/27/2025 [facility] Work Phone: Comment on above: Expected: 05/27/2024 (Approximate), Expi res: 05/27/2025 Start: 05-27-2024 End: 05-27-2026 US Heart Transthoracic Transthoracic Echo (TTE) Complete Echocardiography Routine Ascending aorta dilation (CMS-HCC) Nonrheumatic mitral valve regurgitation Nonrheumatic tricuspid valve regurgitation Nonrheumatic aortic valve insufficiency Expected: 05/27/2024 (Approximate), Expires: 05/27/2026 [facility] Service Area Work Phone: Comment on above: Expected: 05/27/2024 (Approximate), Expi res: 05/27/2026 Start: 05-10-2024 COVID-19 Vaccine () COVID-19 Vaccine () [facility] Start: 05-10-2024 Covid-19 Vaccine () Covid-19 Vaccine () [facility] Start: 05-10-2024 COVID-19 Vaccine () COVID-19 Vaccine () [facility] Start: 05-10-2024 Influenza vaccination Influenza Vaccine (#1) [facility] Start: 05-10-2024 [facility] Start: 03-19-2024 End: 03-19-2024 Patient encounter procedure 03/19/2024 9:15 AM EDT Appointment Radiology [address] [place] [address] Chronic renal impairment, stage 3a (HCC) [N18.31] Radiology Comment on above: Chronic renal impairment, stage 3a (HCC) [N18.31] Start: 03-11-2024 End: 03-11-2024 Nursing evaluation of patient and report 03/11/2024 9:00 AM EDT Nurse Visit Endocrinology [address] [place] [address] Abdifatah Avelar, RN [address] [id number] Controlled type 2 diabetes mellitus without complication, without long-term curr... Endocrinology Comment on above: Controlled type 2 diabetes mellitus with out complication, without long-term curr... Start: 02-25-2024 End: 02-25-2024 Patient encounter procedure 02/25/2024 9:20 AM EDT Office Visit Internal Medicine [place] [address] [place] [address] Jae Belcher MD [address] [place] [address] 6 month follow-up Internal Medicine [place] Comment on above: 6 month follow-up Start: 02-24-2024 End: 02-24-2024 ambulatory 02/24/2024 7:15 AM EDT Results Only [place] [facility] Laboratory [address] [place] [address] [facility] Start: 02-23-2024 End: 05-24-2024 Basic metabolic 2000 panel - Serum or Plasma BASIC METABOLIC PNL Lab Routine Impaired fasting glucose Expected: 02/23/2024, Expires: 05/24/2024 [facility] Work Phone: Comment on above: Expected: 02/23/2024, Expires: 4 Start: 02-23-2024 End: 05-24-2024 Hemoglobin A1c in Blood HGB A1C Lab Routine Impaired fasting glucose Expected: 02/23/2024, Expires: 05/24/2024 [facility] Work Phone: Comment on above: Expected: 02/23/2024, Expires: 4 Start: 11-15-2023 End: 02-14-2024 Basic metabolic 2000 panel - Serum or Plasma BASIC METABOLIC PNL Lab Routine Chronic renal impairment, stage 3a (HCC) Expected: 11/15/2023, Expires: 02/14/2024 [facility] Work Phone: Comment on above: Expected: 11/15/2023, Expires: 4 Start: 10-17-2023 End: 01-16-2024 Urinalysis complete panel - Urine URINALYSIS, WITH MICROSCOPIC Lab Routine Chronic renal impairment, stage 3a (HCC) Expected: 10/17/2023, Expires: 01/16/2024 [facility] Work Phone: Comment on above: Expected: 10/17/2023, Expires: 4 Start: 09-09-2023 Advance Directive Discussion Advance Directive Discussion [facility] Start: 09-09-2023 Behavioral Health Screening Behavioral Health Screening [facility] Start: 09-09-2023 Depression Assessment Depression Assessment [facility] Start: 08-22-2023 ANNUAL PCP TEAM CHRONIC DISEASE VISIT ANNUAL PCP TEAM CHRONIC DISEASE VISIT [facility] Start: 08-22-2023 BP CONTROLLED (<130/80) BP CONTROLLED (<130/80) [facility] Start: 08-22-2023 Urine microalbumin profile [facility] Comment on above: Postponed from 06/21/2019 (Declined at t his time) Start: 07-24-2023 BP CONTROLLED (<130/80) BP CONTROLLED (<130/80) [facility] Start: 07-23-2023 Mammography [facility] Start: 05-10-2023 Covid-19 Vaccine ( season) Covid-19 Vaccine () [facility] Start: 05-10-2023 Influenza vaccination [facility] Start: 12-27-2022 COVID-19 VACCINE (5 - Pfizer series) COVID-19 VACCINE (5 - Pfizer series) [facility] Start: 09-09-2022 ADVANCE DIRECTIVE DISCUSSION ADVANCE DIRECTIVE DISCUSSION [facility] Start: 09-09-2022 DEPRESSION ASSESSMENT DEPRESSION ASSESSMENT [facility] Start: 08-22-2022 ANNUAL PCP TEAM CHRONIC DISEASE VISIT ANNUAL PCP TEAM CHRONIC DISEASE VISIT [facility] Start: 08-22-2022 End: 10-22-2022 Hemoglobin A1c in Blood HGB A1C Lab Routine Impaired fasting glucose Expected: 08/22/2022, Expires: 10/22/2022 [facility] Work Phone: Comment on above: Expected: 08/22/2022, Expires: 3 Start: 08-22-2022 End: 10-22-2022 Lipid 1996 panel - Serum or Plasma LIPID PANEL BASIC Lab Routine Essential hypertension, benign Expected: 08/22/2022, Expires: 10/22/2022 [facility] Work Phone: Comment on above: Expected: 08/22/2022, Expires: 3 Start: 07-21-2022 Adult depression screening assessment DEPRESSION SCREENING [facility] Start: 07-20-2022 Mammography MAMMOGRAM [facility] Start: 05-10-2022 Influenza vaccination INFLUENZA (#1) [facility] Start: 11-23-2021 COVID-19 VACCINE (4 - Booster for Pfizer series) COVID-19 VACCINE (4 - Booster for Pfizer series) [facility] Start: 09-20-2021 COVID-19 VACCINE (4 - Booster for Pfizer series) COVID-19 VACCINE (4 - Booster for Pfizer series) [facility] Start: 09-09-2021 ADVANCE DIRECTIVE DISCUSSION ADVANCE DIRECTIVE DISCUSSION [facility] Start: 09-09-2021 DEPRESSION ASSESSMENT DEPRESSION ASSESSMENT [facility] Start: 06-21-2019 DTaP/Tdap/Td Vaccines (2 - Td or Tdap) DTaP/Tdap/Td Vaccines (2 - Td or Tdap) [facility] Start: 06-21-2019 Urine microalbumin profile [facility] Start: 06-21-2019 [facility] Start: 2009 RSV High Risk: (Elderly (60+) or Population) (1 - Risk 60-74 years 1-dose series) RSV High Risk: (Elderly (60+) or Population) (1 - Risk 60-74 years 1-dose series) [facility] Start: 2009 RSV patients and/or patients aged 60+ years (1 - 1-dose 60+ series) RSV patients and/or patients aged 60+ years (1 - 1-dose 60+ series) [facility] Start: 2009 RSV Vaccine (1 - 1-dose 60+ series) RSV Vaccine (1 - 1-dose 60+ series) [facility] Start: 2009 [facility] Start: 1994 COLOGUARD (FIT-DNA) COLOGUARD (FIT-DNA) [facility] Start: [address] COLONOGRAPHY [facility] Start: 1994 FECAL OCCULT BLOOD FECAL OCCULT BLOOD [facility] Start: 1994 Screening for malignant neoplasm of colon [facility] Start: 1994 SIGMOIDOSCOPY SIGMOIDOSCOPY [facility] Start: 1968 Urine screening for protein [facility] Start: 12-08-1967 BP CONTROLLED (<130/80) BP CONTROLLED (<130/80) [facility] Start: 12-08-1967 Hepatitis C screening [facility] Start: 12-08-1959 Diabetic foot examination Diabetic Foot Exam [facility] Start: 12-08-1959 Glaucoma screening Dilated Retinal Exam [facility] Start: 12-08-1959 Hepatitis B screening Urine Albumin:Creatinine Ratio [facility] Start: 1949 Annual wellness visit [facility] Start: 1949 Lipid panel [facility] Start: 1949 Medicare Annual Wellness Visit Medicare Annual Wellness Visit (AWV) [facility] Start: 1949 Screening for malignant neoplasm of colon [facility] Start: 1949 Thyroid stimulating hormone measurement [facility] Start: 1949 Yearly Adult Physical Yearly Adult Physical [facility] Airway Clearance Techniques Device/modality: Per RT discretion [facility] Work Phone: Bacteria identified in Urine by Culture URINE CULTURE Microbiology Routine Urinary frequency 05/20/2024 11:59 AM EDT [facility] Work Phone: Basic metabolic 2008 panel with ionized calcium - Serum or Plasma [facility] Cardiac event recording [facility] Cath plmt l hrt & ar ts w/njx & angio img s&i LEFT HEART CATH Ascending aorta dilation (CMS-HCC) Nonrheumatic mitral valve regurgitation Nonrheumatic tricuspid valve regurgitation Nonrheumatic aortic valve insufficiency Virtual [facility] Coun[employer]or End: 08-28-2024 CBC panel - Blood by Automated count [facility] Work Phone: CTA Chest vessels WO and W contrast IV [facility] DBT Breast - bilater al screening DAVID SCREENING W OSVALDO Radiology Routine Screening mammogram for breast cancer 07/23/2024 9:39 AM EST [facility] Work Phone: End: 08-10-2024 Determination of physical activity tolerance [facility] Work Phone: End: 08-14-2024 ECG 12 Lead [facility] Service Area Work Phone: Electrocardiogram 12 -lead PRN for arrhythmia [facility] Work Phone: Electrocardiogram 12 -lead PRN for arrhythmia [facility] Work Phone: Electrocardiogram 12 -lead PRN for arrhythmia [facility] Work Phone: End: 08-21-2024 Extra Urine Bai Tube [facility] Work Phone: End: 06-09-2024 Glucose [Mass/volume] in Serum or Plasma POCT Glucose Point of Care Testing - Docked Device Routine Once (Lab) for 1 Occurrences starting 06/09/2024 until 06/09/2024 [facility] Work Phone: Comment on above: Once (Lab) for 1 Occurrences starting until 06/09/2024 Glucose [Mass/volume ] in Serum or Plasma [facility] Work Phone: Glucose [Mass/volume ] in Serum or Plasma [facility] Work Phone: End: 08-10-2024 Incentive spirometry Instruct [facility] Work Phone: End: 08-28-2024 Magnesium [Mass/volume] in Serum or Plasma [facility] Work Phone: End: 07-23-2023 DAVID SCREENING W OSVALDO [facility] Work Phone: Comment on above: ONCE for 1 Occurrences starting 07/23/20 23 until 07/23/2023 MG Breast - bilatera l Screening [facility] Patient referral [facility] Work Phone: End: 08-23-2024 Renal function 2000 panel - Serum or Plasma [facility] Work Phone: End: 05-22-2024 Study Interpretation of outside study [facility] Work Phone: Comment on above: Once for 1 Occurrences starting 05/22/20 24 until 05/22/2024 Transfuse Cryoprecipitated AHF (Pooled Units): 2 Pools :30 Minutes [facility] Work Phone: UA DIP B/O UA DIP B/O Lab R outine Burning with urination Ordered: 05/29/2024 [facility] Work Phone: Comment on above: Ordered: 05/29/2024 End: 08-21-2024 Urinalysis complete W Reflex Culture panel - Urine [facility] Work Phone: US Heart [facility] End: 06-03-2024 US Heart Transthoracic [facility] Area Work Phone: Comment on above: Once for 1 Occurrences starting 06/03/20 until 06/03/2024 End: 03-26-2025 US Kidney - bilateral and Urinary bladder US KIDNEY/BLADDER Radiology Routine Chronic renal impairment, stage 3a (HCC) 1 Occurrences starting 02/25/2024 until 03/26/2025 [facility] Work Phone: Comment on above: 1 Occurrences starting 02/25/2024 until 03/26/2025 US Kidney - bilatera l and Urinary bladder US KIDNEY/BLADDER Radiology Routine Chronic renal impairment, stage 3a (HCC) 03/19/2024 9:39 AM EDT [facility] Work Phone: End: 07-29-2024 XR Chest 2 Views [facility] Service Area Work Phone: Comment on above: Once for 1 Occurrences starting 07/29/20 until 07/29/2024 End: 10-07-2024 XR Chest 2 Views [facility] Service Area Work Phone: Comment on above: Once for 1 Occurrences starting 10/07/19 until 10/07/2024 XR Foot - bilateral AP and Lateral and oblique XR FOOT GENERAL 3V AP/LAT/OBL BILATERAL Radiology Routine Pain 01/02/2024 1:22 PM EDT [facility] Work Phone: [facility] Immunizations Immunization Date Immunization Notes Care Provider [facility] 05-29-2024 influenza, high dose seasonal, preservative-free Jae Belcher MD Work Phone: [facility] 08-26-2023 influenza (HD-IIV4) vaccine, age 65+ yr, high dose, quadrivalent, PF (FLUZONE HIGH-DOSE) Jae Belcher MD Work Phone: [facility] 08-26-2023 influenza virus vacc ine, unspecified formulation Abdifatah Avelar RN Work Phone: [facility] 08-28-2022 COVID-19 booster vaccine, age 12+ yr, bivalent (PFIZER-BIONTECH) Id Nurse Work Phone: [facility] Work Phone: 07-06-2022 influenza, high-dose , quadrivalent vaccine (FLUZONE HIGH DOSE QUADRIVALENT) Jennifer Luong SURGICAL ONCOLOGIST Work Phone: [facility] Work Phone: 07-06-2022 influenza virus vacc ine, unspecified formulation Screen Wstr [facility] 07-26-2021 Covid (Pfizer) Dr. Jae Belcher MD Work Phone: [facility] 07-26-2021 zoster vaccine recombinant [facility] Provider [facility] 07-21-2021 influenza, high-dose , quadrivalent vaccine (FLUZONE HIGH DOSE QUADRIVALENT) [facility] 04-20-2021 zoster vaccine recombinant [facility] Provider [facility] 12-03-2020 COVID-19 vaccine, ag e 12+ yr (PFIZER-BIONTECH - PURPLE TOP) [facility] Provider [facility] 11-12-2020 COVID-19 vaccine, ag e 12+ yr (PFIZER-BIONTECH - PURPLE TOP) [facility] 07-28-2020 influenza, high-dose , quadrivalent vaccine (FLUZONE HIGH DOSE QUADRIVALENT) [facility] 07-27-2019 influenza, high dose seasonal, preservative-free [facility] 07-01-2018 influenza, high dose seasonal, preservative-free [facility] Provider [facility] 08-06-2017 influenza, high dose seasonal, preservative-free f [facility] 07-30-2016 influenza, high dose seasonal, preservative-free [facility] 07-30-2016 pneumococcal polysaccharide vaccine, 23 valent [facility] 07-28-2015 influenza, injectabl e, quadrivalent, contains preservative [facility] 07-28-2015 influenza, injectabl e, quadrivalent, preservative free Dr. Jea Belcher MD Work Phone: [facility] 07-28-2015 pneumococcal conjuga te vaccine, 13 valent [facility] 07-27-2014 influenza, injectabl e, quadrivalent, preservative free Dr. Jae Belcher MD Work Phone: [facility] 07-27-2014 influenza, seasonal, injectable [facility] 07-18-2013 influenza virus vacc ine, unspecified formulation [facility] 07-13-2011 influenza virus vacc ine, unspecified formulation [facility] Work Phone: 02-23-2011 zoster vaccine, live [facility] Provider [facility] 06-21-2009 tetanus toxoid, redu elvie diphtheria toxoid, and acellular pertussis vaccine, adsorbed [facility] Provider [facility] Payers Date Payer Category Payer Self-pay [id number] 2024 Medicare [id number] 2024 Self-pay [id number] 2023 Medicare [id number] 2017 Medicare (Managed Care) 1.2. [id number] 2017 Unknown [id number] 2017 Medicare [id number] 2012 Unknown [employer] [id number] 1949 Unknown [id number] [id number] 1949 Unknown [id number] 2.16.8 [id number] 1949 Unknown [id number] 2.16.8 [id number] 1949 Unknown [id number] 2.16.8 [id number] 1949 Unknown [id number] 2.16.8 [id number] 1949 Unknown [id number] 2.16.8 40.1.301699.3.579.2.124 1950 Unknown [id number] 2.16. 840.1.773712.3.579.2.124 1950 Unknown [id number] 2.16. 840.1.056204.3.579.2.1244 1950 Unknown [id number] 2.16. 840.1.189063.3.579.2.1244 1950 Unknown [id number] 2.16. 840.1.963997.3.579.2.1244 1950 Unknown [id number] 2.16. 840.1.312629.3.579.2.124 1950 Unknown [id number] 2.16.8 40.1.835621.3.579.2.1244 1950 Unknown [id number] 2.16.8 40.1.899245.3.579.2.124 1950 Unknown [id number] 2.16.8 40.1.494606.3.579.2.1244 1950 Unknown [id number] 2.16.8 40.1.596052.3.579.2.1245 1950 Unknown [id number] 2.16.8 40.1.876972.3.579.2.1244 1950 Unknown [id number] 2.16.8 40.1.279606.3.579.2.1244 1950 Unknown [id number] 2.16.8 40.1.998494.3.579.2.1245 Unknown [id number] 2.16.8 40.1.775893.3.579.2.462 Unknown [id number] 2.16.8 40.1.701966.3.579.2.462 Unknown [id number] 2.16.8 40.1.632520.3.579.2.462 Unknown [id number] 2.16.8 40.1.386175.3.579.2.462 Unknown [id number] 2.16.8 40.1.078907.3.579.2.462 Unknown [id number] 2.16.8 40.1.567042.3.579.2.462 Unknown [id number] 2.16.8 40.1.177647.3.579.2.462 Unknown [id number] 2.16.8 40.1.278928.3.579.2.462 Unknown [id number] 2.16.8 40.1.532553.3.579.2.462 Unknown [id number] 2.16.8 40.1.482269.3.579.2.462 Unknown [id number] 2.16.8 40.1.170417.3.579.2.462 Unknown [id number] 2.16.8 40.1.585250.3.579.2.462 Unknown [id number] 2.16.8 40.1.845109.3.579.2.462 Unknown [id number] 2.16.8 40.1.321179.3.579.2.462 Unknown [id number] 2.16.8 40.1.449752.3.579.2.462 Unknown [id number] 2.16.8 40.1.912280.3.579.2.462 Unknown [id number] 2.16.8 40.1.147720.3.579.2.462 Unknown [id number] 2.16.8 40.1.070532.3.579.2.462 Unknown [id number] 2.16.8 40.1.173615.3.579.2.462 Unknown [id number] 2.16.8 40.1.390067.3.579.2.462 Unknown [id number] 2.16.8 40.1.020393.3.579.2.462 Unknown [id number] 2.16.8 40.1.879736.3.579.2.462 Unknown [id number] 2.16.8 40.1.307372.3.579.2.462 Unknown [id number] 2.16.8 40.1.218723.3.579.2.462 Unknown [id number] 2.16.8 40.1.805774.3.579.2.462 Unknown [id number] 2.16.8 40.1.668069.3.579.2.462 Unknown [id number] 2.16.8 40.1.748195.3.579.2.462 Unknown [id number] 2.16.8 40.1.441259.3.579.2.462 Unknown [id number] 2.16.8 40.1.730875.3.579.2.462 Unknown [id number] 2.16.8 40.1.680205.3.579.2.462 Unknown [id number] 2.16.8 40.1.525805.3.579.2.462 Unknown [id number] 2.16.8 40.1.241399.3.579.2.462 Unknown [id number] 2.16.8 40.1.914180.3.579.2.462 Unknown [id number] 2.16.8 40.1.346282.3.579.2.462 Social History Date Type Detail Facility Start: 05-04-2011 End: 01-18-2025 Tobacco smoking status NHIS Never smoked tobacco [facility] Start: 05-04-2011 End: 08-22-2022 Tobacco use and exposure Smokeless tobacco non-user [facility] Start: 08-22-2021 End: 10-13-2024 Alcohol intake Current drinker of alcohol (finding) [facility] Start: 08-29-2018 History SDOH Alcohol Comment 1-2/week [facility] Start: 1950 Sex Assigned At Not on file [facility] Start: 07-14-2022 End: 10-07-2024 Exposure to SARS-CoV-2 (event) Not sure [facility] Start: 07-05-2022 End: 09-03-2023 Tobacco smoking status NHIS Unknown if ever smoked [facility] Start: 02-05-2019 None [facility] Start: 02-05-2019 Spouse/ Significant Other [facility] Start: 02-08-2019 Non-smoker [facility] Start: 1950 Sex Assigned At Female [facility] Start: 08-22-2022 End: 05-29-2024 History of Social function [facility] Work Phone: Start: 08-22-2022 End: 05-29-2024 Tobacco use panel [facility] Work Phone: Adult Depression Screening Assessment 0 [facility] Work Phone: Has the [employer] threatened to shut off services in your home in past 12Mo No [facility] Do you belong to any clubs or organizations such as adventist groups, unions, fraternal or athletic groups, or school groups? Yes [facility] Are you now , , , , never or living with a partner? [facility] How often to you hav e a drink containing alcohol? 2-4 times a month [facility] How many standard dr inks containing alcohol do you have on a typical day? 1 or 2 [facility] How often do you hav e 6 or more drinks on 1 occasion? Never [facility] Do you feel stress - tense, restless, nervous, or anxious, or unable to sleep at night because your mind is troubled all the time - these days [OSQ] Only a little [facility] (I/We) worried wheth er (my/our) food would run out before (I/we) got money to buy more. Never true [facility] Start: 05-27-2024 End: 06-09-2024 Alcoholic beverage intake Not Asked [facility] Work Phone: Start: 07-22-2024 Alcohol Comment drinks wine a few times a month [facility] Work Phone: Start: 11-16-2024 End: 12-23-2024 Sex Female (finding) [facility] Sexual Orientation Heterosexual (finding) [facility] Medical Equipment Procedure Code Equipment Code Equipment Origin al Text Equipment Identifier Dates 03_[facility] Start: 08-10-2024 [id number] , [facility] FDA Start: 08-10-2024 [id number] FDA Start: 08-10-2024[facility] Start: 08-10-2024 Functional Status Date Assessment Result Facility 11-17-2018 Are you deaf, or do you have serious difficulty hearing No 11/17/2018 8:24 PM EDT Pantera Thomas III, MD No [facility] 11-17-2018 Are you blind, or do you have serious difficulty seeing, even when wearing glasses No 11/17/2018 8:24 PM EDT Pantera Thomas III, MD [facility] 11-17-2018 Do you have serious difficulty walking or climbing stairs No 11/17/2018 8:24 PM EDGARDOT Pantera Thomas III, MD [facility] 11-17-2018 Do you have difficul ty dressing or bathing No 11/17/2018 8:24 PM Pantera Mcneill III, MD [facility] 11-17-2018 Because of a physica l, mental, or emotional condition, do you have difficulty doing errands alone such as visiting a physician's office or shopping No 11/17/2018 8:24 PM EDT Pantera Thomas III, MD No [facility] Mental Status Date Assessment Result Facility 11-16-2024 Cognitive function Level Of Cons ciousness Awake;Alert;Appropriate;Fol lows Commands [facility] Work Phone: 11-12-2024 Cognitive function Level Of Cons ciousness Awake;Alert;Appropriate;Fol lows Commands [facility] Work Phone: 09-23-2024 Cognitive function Level Of Cons ciousness Awake;Alert;Appropriate [facility] Work Phone: 09-22-2024 Cognitive function Level Of Cons ciousness Awake;Alert;Appropriate;Fol lows Commands [facility] Work Phone: 09-08-2024 Cognitive function Level Of Cons ciousness Awake;Alert;Appropriate [facility] Work Phone: 09-07-2024 Cognitive function Level Of Cons ciousness Awake;Alert;Appropriate [facility] Work Phone: 11-17-2018 Because of a physica l, mental, or emotional condition, do you have serious difficulty concentrating, remembering, or making decisions No 11/17/2018 8:24 PM EDT Pantera Thomas III, MD No [facility] Clinical Notes 07-18-2013 to 12-22-2024 Note Date & Type Note Facility 12-22-2024 Radiology Diagnostic study note [facility] [address] [place], [place] [address] Chest PA and Lateral MR#: [id number] Acct: [id number] Name: KARLA CAI Rep #: [id number] : 1950 F 74 From: Esvin Campbell MD PCP: Dr. Jae Belcher MD Status: R EG CLI Study:Chest PA and Lateral Date of Exam: 12/21/24 Exam# [id number] Ordering Dr: Mendoza Paige PA PROCEDURE: CHEST PA AND LATERAL 12/21/2024 REASON FOR EXAM: RECURRENT PLEURAL EFFUSIONS TECHNIQUE: Frontal and lateral views of the chest. COMPARISON: 11/16/2024 and 11/12/2024 FINDINGS: Fairly small right pleural effusion. Very small left pleural effusion versus pleural thickening. Platelike area of left base atelectasis or scar. The lungs otherwise appear clear. Pulmonary vascularity appears within limits. Status post median sternotomy with left atrial appendage closure device and epicardial pacing wiresagain noted. Atherosclerotic changes again seen at the aortic arch. There is again suggestion of possible enlargement of the main pulmonary artery seen on the frontal view, unchanged. RAD/Chest PA and Lateral IMPRESSION: Fairly small right pleural effusion. Very small left pleural effusion versus pleural thickening. Platelike area of left base atelectasis or scar. The lungs otherwise appear clear. Reading Location: [facility] CC: Dr. Jae Belcher MD; WILY Hernandez ~ Bisc[employer] Packer: Signed [facility] 11-16-2024 Radiology Diagnostic study note [facility] [address] [place], [place] [address] Thoracentesis W US MR#: [id number] Acct: [id number] Name: KARLA CAI Rep #: [id number] : 1950 F 73 From: Farhan Willis MD PCP: Dr. Jae Belcher MD Status: R EG CLI Study:Thoracentesis W US Date of Exam: 0 11/16/24 Exam# [id number] Ordering Dr: Mendoza Paige PROCEDURE: THORACENTESIS W US REASON FOR EXAM: Right pleural effusion. TECHNIQUE: The procedure as well as benzoin possible complications including infection bleeding and pneumothorax were explained to the patient. Informed consent was obtained. The overlying skin was prepped and draped in the usual sterile fashion. Following local anesthetic application, puncture of the right pleural space was performed with a 5 Belgian catheter. 650 mL of blood-tinged fluid was aspirated. The patient tolerated the procedure well. COMPARISON: None. FINDINGS: Right pleural effusion. US/Thoracentesis W US IMPRESSION: Successful right thoracentesis without immediate complication. The patient tolerated the procedure well. Reading Location: [facility] CC: Dr. Jae Belcher MD; WILY Hernandez ~ [employer]isc[employer] Packer: Signed [facility] 11-16-2024 Radiology Diagnostic study note [facility] [address] [place], [place] [address] Chest Insp/Exp 2 View MR#: [id number] Acct: [id number] Name: KARLA CAI Rep #: [id number] : 1950 F 73 From: Farhan Willis MD PCP: Dr. Jae Belcher MD Status: R EG CLI Study:Chest Insp/Exp 2 View Date of Exam: 11/16/24 Exam# [id number] Ordering Dr: Tan Gonzalez i, MD PROCEDURE: CHEST INSP/EXP 2 VIEW REASON FOR EXAM: Status post right thoracentesis. TECHNIQUE: Inspiration expiration views were obtained following the thoracentesis. COMPARISON: Comparison is made with prior study dated November 12, 2024. FINDINGS: No evidence of pneumothorax in the immediate post right thoracentesis. Residualpleural-parenchymal changes at the left lung base. RAD/Chest Insp/Exp 2 View IMPRESSION: Status post right thoracentesis. There is no evidence of pneumothorax. Residual left pleural-parenchymal changes. Reading Location: [facility]- CC: Dr. Tan Willis MD; Dr. Jae Belcher MD ~ Bisc[employer] Packer: Signed [facility] 11-12-2024 Procedure note [facility] 11-12-2024 Radiology Diagnostic study note [facility] [address] [place] [id number] Chest Insp/Exp 2 View MR#: [id number] Acct: [id number] Name: KARLA CAI Rep #: [id number] : 1950 F 73 From: Laurence Diana MD PCP: Dr. Jae Belcehr MD Status: R EG CLI Study:Chest Insp/Exp 2 View Date of Exam: 11/12/24 Exam# [id number] Ordering Dr: Lisbeth Garvey BRICK OFF BEARER-C PROCEDURE: CHEST INSP/EXP 2 VIEW REASON FOR EXAM: Post right thoracentesis. TECHNIQUE: Frontal and lateral views of the chest. COMPARISON: 11/09/2024 chest. FINDINGS: The heart size is normal. The mediastinal contour is unremarkable. The lungs are clear. No pneumothorax following right thoracentesis. Decrease in the right pleural fluid. Left pleural effusion is again noted. Median sternotomy wires. RAD/Chest Insp/Exp 2 View IMPRESSION: No evidence of pneumothorax following right thoracentesis. Decrease in the right pleural effusion. Left pleural effusion. Reading Location: [place] [address] CC: CHRISTIAN Garvey; Dr. Jae Belcher MD ~ Biscuit Packer: Signed [facility] 11-09-2024 Radiology Diagnostic study note [facility] [address] [place], [place] [address] Chest PA and Lateral MR#: [id number] Acct: [id number] Name: KARLA CAI Rep #: [id number] : 1950 F 73 From: Kathryn Queen MD PCP: Dr. Jae Belcher MD Status: R EG CLI Study:Chest PA and Lateral Date of Exam: 11/09/24 Exam# [id number] Ordering Dr: Mendoza Paige PA EXAM: XR Chest, 2 Views CLINICAL INDICATION: TECHNIQUE: Frontal and lateral views of the chest. COMPARISON: No relevant prior studies available. FINDINGS: LUNGS AND PLEURAL SPACES: Right middle lobe and lingula atelectasis or pneumonia. Bilateral pleural effusions. No pneumothorax. HEART: Unremarkable. No cardiomegaly. MEDIASTINUM: Unremarkable. Normal mediastinal contour. BONES/JOINTS: Unremarkable. No acute fracture. RAD/Chest PA and Lateral IMPRESSION: 1. Right middle lobe and lingula atelectasis or pneumonia. 2. Bilateral pleural effusions. Reading Location: [facility] CC: Dr. Jae Belcher MD; WILY Hernandez ~ Biscuit Packer: Signed [facility] 10-29-2024 Evaluation note Diagnosis Onset Date Resolution Bilateral pleural effusion acute October 29, 025 10:24am Mitral valve insufficiency acute October 29, 025 10:24am Postoperative atrial fibrillation acute October 29 025 10:24am Essential hypertension chronic [facility]2024 10:24am Thoracic aortic aneurysm without rupture chronic October 29, 2 025 10:24am Bilateral pleural effusion acute November 12, 2024 11:53am Bilateral pleural effusion acute December 22, 2024 9:23am Mitral valve insufficiency acute December 22, 2024 9:23am Postoperative atrial fibrillation acute December 22, 2024 9:23am Essential hypertension chronic Ap ril 2024 9:23am Thoracic aortic aneurysm without rupture chronic December 22, 2024 9:23am Bilateral pleural effusion acute January 18, 2025 1:45pm Postoperative atrial fibrillation acute January 18, 2025 1:45pm Prediabetes acute January 18 1:45pm Essential hypertension chronic Ma y 2024 1:45pm Screening for depression noneactive January 18, 2025 1:45pm History of malignant neoplasm of breast noneactive January 18 1:45pm Immunization due noneactive January 1:45pm Establishing care with new doctor, encounter for noneactive January 18, 2025 1:45pm Pain in both feet noneactive January 1:45pm Numbness and tingling of both feet noneactive January 18, 2025 1:45pm [facility] Work Phone: [phone]) 312-214502-04-2025 Instructions* Patient Instructions* Savanna Kothari, MANAGER HOSPICE.SURGICAL ONCOLOGIST - 10/13/2024 12:38 PM EST Screening schedule The following prevention plan is [...] review all the medicines you take, even qncc-lhk-mfpwsko medicines. As you get older, the way medicines work in your body can change. Some medicines, or combinations of medicines, can make you sleepy or dizzy andcan cause you to fall. 3. Have your [...] apply if you have certain medical conditions. [facility] NoteHNO ID: [id number] Author: SAVANNA KOTHARI APRN.CNP Service: ? Author Type: Nurse Practitioner Type: Progress Notes Filed: 10/13/2024 12:52 Note Text: Karla Cai is a 73 year old female here [...] Current care team: Patient Care Team: Jae Belcher MD as PCP - General (Internal Medicine) Savanna Kothari APRN.TYRA as Electrical Engineering Professor (Internal Medicine) Dr. Fleming-podiatry Dr. Moon-general surgeon Outside specialists seen: [facility], [facility]-Dr. Goldberg, Medical/Family history review Reviewed and updated [...] 80 Resp 12 Ht 172 cm (5' 7.72) Wt 69.1 kg (152 lb 5.4 oz) [...] 80 Resp 12 Ht 172 cm (5' 7.72) Wt 69.1 kg (152 lb 5.4 oz) [...] - Controlled - Continue current medications Savanna Kothari APRN.CNP Medical Decision Making: Problems: Moderate: 2+ stable chronic illnesses Risk: Low: Low risk from testing/treatment Medical Decision Making [facility] of Present illness Narrative* Savanna Kothari APRN.TYRA - 10/13/2024 12:34 PM EST Images from the original note were not included. Karla Cai is a 73 year old female here [...] Current care team: Patient Care Team: Jae Belcher MD as PCP - General (Internal Medicine) Savanna Kothari APRN.TYRA as Electrical Engineering Professor (Internal Medicine) Dr. Fleming-podiatry Dr. Moon-general surgeon Outside specialists seen: [facility], [facility]-Dr. Goldberg, Medical/Family history review Reviewed and updated [...] Functional Observation Was the patient's Timed Up & Go test unsteady or >= 12 seconds? No Advance Care Planning Patient was not able to provide a surrogate decision maker or written advance directives Measurements BP 114/70 Pulse 80 Resp 12 Ht 172 cm (5' 7.72) Wt 69.1 kg (152 lb 5.4 oz) SpO2 96% BMI23.36 kg/m Vision Screening: Follows with optometry/ophthalmology Assessment/Plan Medicare [...] 80 Resp 12 Ht 172 cm (5' 7.72) Wt 69.1 kg (152 lb 5.4 oz) SpO2 96% BMI23.36 kg/m GENERAL: well appearing, alert, in no acute [...] - Controlled - Continue current medications Savanna Kothari APRN.CNP Medical Decision Making: Problems: Moderate: 2+ stable chronic illnesses Risk: Low: Low risk from testing/treatment Medical Decision Making Level: 3 - Low [facility] History of Present illness Narrative* Joaquim Galloway MD - 10/07/2024 3:45 PM EST Chief Complaint Post-op evaluation HPI: Karla Cai is a 73-year-old female s/p ascending aortic replacement, LAAC, and posterior pericardial window on 08/10/24. Her postoperative course was complicated by vasoplegia, Afib with RVR, anemia requiring transfusion, acute hypoxic respiratory failure, and left pleural effusion s/p thoracentesis 08/18/24 for 850cc. She ultimately recovered well and was discharged home in stable condition on 08/22/24. She presents now for postoperative follow up. Since discharge, she has had recurrent bilateral pleural effusions requiring thoracenteses at an outside hospital. Her last thoracenteses were on 09/23/24 and 09/24/24. On repeat CXR today, she has small bilateral pleural effusions, left greater than right, which do not require thoracentesis. She remains on diuresis with Lasix and spironolactone. Her pain has been well controlled. She denies dyspnea with exertion, but fatigues easily. Her exercise tolerance has gradually been improving. She has been tolerating a diet and her appetite has been improving. Her bowel function has returned to baseline. Past Medical History: Diagnosis Date Allergic rhinitis Aortic regurgitation Arthritis bilateral feet Ascending aortic aneurysm ([facility]) Breast cancer (Multi) 2010 s/p lumpectomy,radiation and tamoxifen CKD (chronic kidney disease) stage 2 Diverticulitis no issues since 2019 DM (diabetes mellitus) (Multi) diet controlled GERD (gastroesophageal reflux disease) occasional symptoms HLD (hyperlipidemia) Hypertension Hypokalemia Kidney cyst, acquired Mitral regurgitation Osteopenia Tricuspid regurgitation Past Surgical History: Procedure Laterality Date BREAST LUMPECTOMY Right 2011 BREAST RECONSTRUCTION Right BREAST SURGERY Left reduction CARDIAC CATHETERIZATION N/A 06/09/2024 Procedure: Left Heart Cath with Coronary Angiography and LV; Surgeon: Flaquita Hendrix MD; Location: [facility] Cardiac Family Court Counsellor; Service: Cardiovascular; Laterality: N/A; preop asc aorta replacement. [facility] Jun AT 11:00 AM PT WILL ARRIVE AT 9:30 AM - DR. HENDRIX CATARACT EXTRACTION Bilateral COLONOSCOPY 2018 HEMORRHOID SURGERY HYSTERECTOMY NEUROMA SURGERY Left 1998 acoustic neuroma TUBAL LIGATION Family History Problem Relation Name Age of Onset Hypertension Mother Colon cancer Mother Heart disease Father Prostate cancer Father Hypertension Father Ovarian cancer Sister Thyroid cancer Sister Diabetes Brother Hypertension Brother Social History Socioeconomic History Marital status: Spouse name: Not on file Number of children: Not on file Years of education: Not on file Highest education level: Not on file Occupational History Not on file Tobacco Use Smoking status: Never Smokeless tobacco: Never Vaping Use Vaping status: Never Used Substance and Sexual Activity Alcohol use: Yes Comment: drinks wine a few times a month Drug use: Never Sexual activity: Defer Other Topics Concern Not on file Social History Narrative Not on file Social Drivers of Health Financial Resource Strain: Low Risk (08/11/2024) Overall Financial Resource Strain (CARDIA) Difficulty of Paying Living Expenses: Not hard at all Food Insecurity: Patient Unable To Answer (08/10/2024) Hunger Vital Sign Worried About Running Out of Food in the Last Year: Patient unable to answer Ran Out of Food in the Last Year: Patient unable to answer Transportation Needs: No Transportation Needs (08/11/2024) PRAPARE - Transportation Lack of Transportation (Medical): No Lack of Transportation (Non-Medical): No Physical Activity: Sufficiently Active (02/18/2024) [facility] Exercise Vital Sign Days of Exercise per Week: 4 days Minutes of Exercise per Session: 60 min Stress: Patient Unable To Answer (08/10/2024) [employer] [place] [employer] - Occupational Stress Questionnaire Feeling of Stress : Patient unable to answer Social Connections: Patient Unable To Answer (08/10/2024) Social Connection and Isolation Panel [NHANES] Frequency of Communication with Friends and Family: Patient unable to answer Frequency of Social Gatherings with Friends and Family: Patient unable to answer Attends Tenriism Services: Patient unable to answer Active Member of Clubs or Organizations: Patient unable to answer Attends Club or Organization Meetings: Patient unable to answer Marital Status: Patient unable to answer Intimate Partner Violence: Patient Unable To Answer (08/10/2024) Humiliation, Afraid, Rape, and Kick questionnaire Fear of Current or Ex-Partner: Patient unable to answer Emotionally Abused: Patient unable to answer Physically Abused: Patient unable to answer Sexually Abused: Patient unable to answer Housing Stability: Unknown (08/11/2024) Housing Stability Vital Sign Unable to Pay for Housing in the Last Year: No Number of Times Moved in the Last Year: 0 Homeless in the Last Year: Patient unable to answer Allergies Allergen Reactions Amlodipine Swelling Adhesive Tape-Silicones Itching Doxazosin Dizziness Lisinopril Cough Meloxicam Other Renal, avoids all NSAIDS Outpatient Encounter Medications as of 10/07/2024 Medication Sig Dispense Refill acetaminophen (Tylenol) 325 mg tablet Take 2 tablets (650 mg) by mouth every 6 hours. amiodarone (Pacerone) 200 mg tablet Take 2 tablets (400 mg) by mouth 2 times a day for 10 days, THEN 1 tablet (200 mg) once daily for 20 days. 60 tablet 0 apixaban (Eliquis) 5 mg tablet Take 1 tablet (5 mg) by mouth 2 times a day. 60 tablet 2 B complex-vitamin C-folic acid (Nephro-Bull Rx) 1-60-300 mg-mg-mcg tablet Take 1 tablet by mouth once daily with breakfast. beta carotene (vitamin A) 3,000 mcg (10,000 unit) capsule Take 1 capsule (10,000 Units) by mouth once daily. fluticasone (Flonase) 50 mcg/actuation nasal spray Administer 1 spray into each nostril if needed for rhinitis. Shake gently. Before first use, prime pump. After use, clean tip and replace cap. furosemide (Lasix) 20 mg tablet Take 1 tablet (20 mg) by mouth 2 times daily (morning and late afternoon) for 7 days. 14 tablet 0 loratadine (Claritin Reditabs) 10 mg disintegrating tablet Dissolve 1 tablet (10 mg) in the mouth if needed for allergies. metoprolol tartrate (Lopressor) 25 mg tablet Take 1 tablet (25 mg) by mouth 2 times a day. Hold if heart rate < 60 and/or systolic blood pressure < 100 60 tablet 0 multivitamin tablet Take 1 tablet by mouth once daily. mv-min/FA/vit K/lutein/zeaxant (PRESERVISION AREDS 2 PLUS MV ORAL) Take 1 tablet by mouth once daily. olopatadine (Patanol) 0.1 % ophthalmic solution Administer 1 drop into both eyes if needed. polyethylene glycol (Glycolax, Miralax) 17 gram packet Take 17 g by mouth once daily as needed (Constipation). pravastatin (Pravachol) 20 mg tablet Take 1 tablet (20 mg) by mouth early in the morning.. simethicone (Mylicon) 80 mg chewable tablet Chew 1.5 tablets (120 mg) 4 times a day as needed for flatulence (gas pains). No facility-administered encounter medications on file as of 10/07/2024. Physical Exam Constitutional: General: She is not in acute distress. Appearance: She is normal weight. She is not ill-appearing. Cardiovascular: Rate and Rhythm: Normal rate and regular rhythm. Pulmonary: Effort: Pulmonary effort is normal. No respiratory distress. Abdominal: General: There is no distension. Palpations: Abdomen is soft. Musculoskeletal: Right lower leg: No edema. Left lower leg: No edema. Skin: General: Skin is warm and dry. Comments: Well-healing sternal incision Neurological: General: No focal deficit present. Mental Status: She is alert and oriented to person, place, and time. Mental status is at baseline. Psychiatric: Mood and Affect: Mood normal. Behavior: Behavior normal. Encounter Date: 08/10/24 Electrocardiogram 12-lead PRN ACS symptoms Result Value Ventricular Rate 109 Atrial Rate 117 QRS Duration 144 QT Interval 334 QTC Calculation(Bazett) 449 R [place] 113 T [place] -38 QRS Count 18 Q Onset 213 T Offset 380 QTC Fredericia 407 Narrative Atrial fibrillation with rapid ventricular response with [...] Gurjit Bower ([id number]) on 08/25/2024 5:44:02 PM Lab Results Component Value Date WBC 15.8 (H) 08/22/2024 HGB 9.1 (L) 08/22/2024 HCT 28.1 (L) 08/22/2024 MCV 93 08/22/2024 PLT 539 (H) 08/22/2024 Lab Results Component Value Date GLUCOSE 109 (H) 08/22/2024 CALCIUM 7.9 (L) 08/22/2024 NA 140 08/22/2024 K 4.3 08/22/2024 CO2 24 08/22/2024 CL 108 (H) 08/22/2024 BUN 32 (H) 08/22/2024 CREATININE 0.74 08/22/2024 Transthoracic Echo (TTE) Limited Result Date: 08/12/2024 [facility], [address] [place] [address] and TRANSTHORACIC ECHOCARDIOGRAM REPORT Patient Name: KARLA Hancock Physician: [id number] Kevin Kenyon MD Study Date: 08/12/2024 Ordering Provider: [id number] EH MCKEON MRN/PID: [id number] Fellow: Nurse: Date of /Age: 3 1950 Bobbin Painter: Erik smith [facility] Gender assigned at F Additional Staff: Abdifatah Flores : Height: 175.00 cm Admit Date: 08/10/2024 Weight: 83.00 kg Admission Status: Inpatient - STAT BSA / BMI: 1.99 m2 / 27.10 kg/m2 Blood Pressure: 101/61 mmHg Department Location: [facility] Study Type: TRANSTHORACIC ECHO (TTE) LIMITED Diagnosis/ICD: Postprocedural hypotension- I95.81 Indication: Hypotension S/P Ascending Aorta Replacement CPT Code: Echo Limited-81939; Doppler Limited-19894; Color Doppler-79108 Patient History: Pertinent History: Aneurysm of ascending [...] assessed. Aortic Valve: The aortic valve is trileaflet.There is no evidence of aortic valve regurgitation. Mitral Valve: The mitral valve is normal in stru cture. There is mild mitral valve regurgitation. Tricuspid [...] 1. Poorly visualized anatomical structures due to cruz boptimal image quality. 2. Left ventricular ejection fraction is mildly decreased, calculated by Torres's biplane at 49%. 3. Abnormal septal motion consistent with post-operative status. 4. There isreduced right ventricular systolic function. 5. There is a large pleural effusion. 6. Trivial pericardial effusion. 7. Mild mitral valve regurgitation. QUANTITATIVE DATA SUMMARY: 2D MEASUREMENTS: Normal Ranges: LVEDV Index: 43 ml/m2 LV SYSTOLIC FUNCTION BY 2D PLANIMETRY (MOD): Normal Ranges: EF-Y4KTtdv: 58 % (>=55%) EF-A2C View: 44 % EF- Biplane: 49 % LV EF Reported: 49 % RIGHT VENTRICLE: TAPSE: 20.9 mm [id number] Kevin Kenyon MD Electronically signed on 08/12/2024 at 6:18:22 PM Final Transthoracic Echo (TTE) Complete Result Date: 06/05/2024 [facility], [address] [place] [address], [facility] [address] [place] [address] and TRANSTHORACIC ECHOCARDIOGRAM REPORT Patient Name: KARLA BENITEZ CAI Reading Physician: [id number] Rob Jones MD Study Date: 06/03/2024 Ordering Provider: [id number] JOAQUIM GALLOWAY MRN/PID: [id number] Fellow: Nurse: Date of /Age: 3 1950 / 73 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: Joycelyn JIMENEZ Gender: F Additional Staff: Height: 175.26 cm Admit Date: Weight: 78.02 kg Admission Status: Outpatient BSA / BMI: 1.94 m2 / 25.40 kg/m2 Blood Pressure: 120/63 mmHgDepartment Location: [facility] Study Type: TRANSTHORACIC ECHO (TTE) COMPLETE Diagnosis/ICD: 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; Nonrheumatic aortic (valve) insufficiency- I35.1; Nonrheumatic mitral (valve) insufficiency-I34.0 Indication: Asc AO Dilatation CPT Code: Echo Complete w Full Doppler-16641 Patient History: Pertinent History: HTN, ASC AO DILATATION. Study Detail: The following Echo s tudies were performed: 2D, M-Mode, Doppler and color flow. A bubble study was not performed. PHYSICIAN INTERPRETATION: Left Ventricle: The left ventricular systolic function is normal, with a visually estimated ejection fraction of 60- 65%. There are no regional left ventricular wall motion abnormalities. The left ventricular cavity size is normal. Spectral Doppler shows an impaired relaxation pattern of left ventricular diastolic filling. Left Atrium: The left atrium is normal in size. A bubblestudy using agitated saline was not performed. Right Ventricle: The right ventricle is normal in size. There is low normal right ventricular systolic function. Right Atrium: The right atrium is normal in size. Aortic Valve: The aortic valve is trileaflet. The aortic valve dimensionless index is 0.72. There is trace aortic valve regurgitation. The peak instantaneous gradient of the aortic valve is5.0 mmHg. The mean gradient of the aortic valve is 2.8 mmHg. Mitral Valve: The mitral valve is normal in structure. There is mild to moderate mitral valve regurgitation. Tricuspid Valve: The tricuspid valve is structurally normal. There is mild to moderate tricuspid regurgitation. The Doppler estimated RVSP is within normal limits at 29.0 mmHg. Pulmonic Valve: The pulmonic valve is structurally normal. There is physiologic pulmonic valve regurgitation. Pericardium: Trivial pericardial effusion.There is a pericardial fat pad present. Aorta: The aortic root is normal. The ascending thoracic aorta is aneurysmal measuring 5 cm in diameter. Recommend chest cta and/or mra of the chest for confirmation. In comparison to the previous echocardiogram(s): There are no prior studies on this patient for comparison purposes. CONCLUSIONS: 1. The left ventricular systolic function is normal, with a visually estimated ejection fraction of 60-65%. 2. Spectral Doppler shows an impaired relaxation pattern of left ventricular diastolic filling. 3. There is low normal right ventricular systolic function. 4. Mild to moderate mitral valve regurgitation. 5. Mild to moderate tricuspid regurgitation visualized. 6. Right ventricular systolic pressure is within normal limits. 7. The ascending thoracic aorta is aneurysmal measuring 5 cm in diameter. Recommend chest cta and/or mra of the chest for confirmation. QUANTITATIVE DATA SUMMARY: 2D MEASUREMENTS: Normal Ranges: LAs: 4.06 cm (2.7-4.0cm) IVSd: 0.86cm (0.6-1.1cm) LVPWd: 0.88 cm (0.6-1.1cm) LVIDd: 4.83 cm (3.9-5.9cm) LVIDs: 3.43 cm LV Mass Index: 74 g/m2 LVEDV Index: 39 ml/m2 LV % FS 29.1 % LA VOLUME: Normal Ranges: LA Vol A4C: 40.3 ml (22+/-6mL/m2) LA Vol A2C: 32.7 ml LA Vol BP: 37.3 ml LA Vol Index A4C: 20.8ml/m2 LA Vol Index A2C: 16.9 ml/m2LA Vol Index BP: 19.3 ml/m2 LA Area A4C: 16.0 cm2 LA Area A2C: 14.0 cm2 LA [place] A4C: 5.4 cm LA Major [place] A2C: 5.1 cm LA Volume Index: 19.3 ml/m2 LA Vol A4C: 36.9 ml LA Vol A2C: 31.0 ml LA Vol Index BSA: 17.5 ml/m2 RA VOLUME BY A/L METHOD: Normal Ranges: RA Area A4C: 15.4 cm2 AORTA MEASUREMENTS: Normal Ranges: Ao Sinus, d: 3.70 cm (2.1- 3.5cm) Ao STJ, d: 3.20 cm (1.7-3.4cm) Asc Ao, d: 5.00 cm (2.1-3.4cm) LV SYSTOLIC FUNCTION BY 2D PLANIMETRY (MOD): Normal Ranges: EF-A4C View: 67 % (>=55%) EF- A2C View: 71 % EF-Biplane: 69 % EF-Visual: 63 % LV EF Reported: 63 % LV DIASTOLIC FUNCTION: Normal Ranges: MV Peak E: 0.49 m/s (0.7-1.2 m/s) MV Peak A: 0.74 m/s (0.42-0.7 m/s) E/A Ratio: 0.67 (1.0-2.2) MV e' 0.070 m/s (>8.0) MV lateral e' 0.09 m/s MV medial e' 0.05 m/s E/e' Ratio: 7.06 (<8.0) MITRAL VALVE: Normal Ranges: MV DT: 352 msec (150-240msec) MITRAL INSUFFICIENCY: Normal Ranges: MR VTI: 158.58 cm MR Vmax: 483.44 cm/s AORTIC VALVE: Normal Ranges: AoV Vmax: 1.11 m/s (<=1.7m/s) AoV Peak P.0 mmHg (<20mmHg) AoV Mean P.8 mmHg (1.7-11.5mmHg) LVOT Max Last: 0.79 m/s (<=1.1m/s) AoV VTI: 28.24 cm (18-25cm) LVOT VTI: 20.42 cm LVOT Diameter: 2.06 cm (1.8-2.4cm) AoV Area, VTI: 2.41 cm2 (2.5-5.5cm2) AoV Area,Vmax: 2.37 cm2 (2.5-4.5cm2) AoV Dimensionless Index: 0.72 RIGHT VENTRICLE: RV Basal 3.50 cm TAPSE: 20.4 mm RV s' 0.09 m/s TRICUSPID VALVE/RVSP: Normal Ranges: Peak TR Velocity: 2.55 m/s RV Syst Pressure: 29 mmHg (< 30mmHg) IVC Diam: 1.51 cm AORTA: Asc Ao Diam 4.49 cm [id number] Rob Jones MD Electronically signed on 06/05/2024 at 4:01:39 PM Final Assessment and Plan: Karla Cai is a 73-year-old female s/p ascending aortic replacement, LAAC, and posterior pericardial window on 08/10/24, recovering well - The patient may resume regular activity, including driving and lifting, without restriction (postoperative week 6 - 09/21/24) - CXR today demonstrates small bilateral pleural effusions, left greater than right, which do not require thoracentesis. Recommend continued diuresis with Lasix and spironolactone. - She may follow up with her PCP as needed - She was advised to contact our office with questions or concerns Thank you for the opportunity to participate in her care. Joaquim Galloway MD Cardiac Surgeon documented in [facility]Bl[facility] Work Phone: 1(976) 393-149801-06-2025 Telephone encounter Note* Telephone Encounter - Faiza Morgan LPN - 09/14/2024 12:30 PM EST Patient has been identified by name and date of : Yes Patient phones for refill(s): Requested Prescriptions Pending Prescriptions Disp Refills pravastatin (PRAVACHOL) 20 mg tablet 90 tablet 3 Sig: Take 1 tablet by mouth once daily. Date of last office visit in primary care: 08/28/2024 Date of next office visit in primary care: 10/12/2024 Please advise. Thank you. Faiza Morgan LPN. [facility]01-06-2025 Miscellaneous Notes* Telephone Encounter - Faiza Morgan LPN - 09/14/2024 12:30 PM EST Patient has been identified by name and date of : Yes Patient phones for refill(s): Requested Prescriptions Pending Prescriptions Disp Refills pravastatin (PRAVACHOL) 20 mg tablet 90 tablet 3 Sig: Take 1 tablet by mouth once daily. Date of last office visit in primary care: 08/28/2024 Date of next office visit in primary care: 10/12/2024 Please advise. Thank you. Faiza Morgan LPN. documented in this encounterPromedica [facility] Hospital12-26-2024 Evaluation note* Diagnosis Onset Date Resolution Status Admit Date Mitral valve insufficiency acute September 03, 2024 12:47pm Pleural effusion acute September 03, 2024 12:47pm Postoperative atrial fibrillation acute September 03 12:47pm Essential hypertension chronic [facility] 2023 12:47pm Thoracic aortic aneurysm without rupture chronic September 03 12:47pm Bilateral pleural effusion acute September 07, 2024 7:46am Bilateral pleural effusion acute September 08, 2024 11:04am Bilateral pleural effusion acute September 16, 2024 10:19am Mitral valve insufficiency acute September 16, 2024 10:19am Postoperative atrial fibrillation acute September 16 10:19am Essential hypertension chronic [facility] 2024 10:19am Thoracic aortic aneurysm without rupture chronic September 16 10:19am Bilateral pleural effusion acute September 22, 2024 8:00am Bilateral pleural effusion acute September 23, 2024 11:40am Bilateral pleural effusion acute October 29, 2024 10:24am Mitral valve insufficiency acute October 29, 2024 10:24am Postoperative atrial fibrillation acute October 29 10:24am Essential hypertension chronic 2024 10:24am Thoracic aortic aneurysm without rupture chronic October 29 10:24am Bilateral pleural effusion acute November 12, 2024 11:53am [facility] Work Phone: 1(472) 697-862512-26-2024 Evaluation note* Diagnosis Onset Date Resolution Status Admit Date Mitral valve insufficiency acute September 03, 2024 12:47pm Pleural effusion acute September 03, 2024 12:47pm Postoperative atrial fibrillation acute September 03 12:47pm Essential hypertension chronic [facility]2023 12:47pm Thoracic aortic aneurysm without rupture chronic September 03 12:47pm Bilateral pleural effusion acute September 07, 2024 7:46am Bilateral pleural effusion acute September 08, 2024 11:04am Bilateral pleural effusion acute September 16, 2024 10:19am Mitral valve insufficiency acute September 16, 2024 10:19am Postoperative atrial fibrillation acute September 16 10:19am Essential hypertension chronic [facility]2024 10:19am Thoracic aortic aneurysm without rupture chronic September 16 10:19am Bilateral pleural effusion acute September 22, 2024 8:00am Bilateral pleural effusion acute September 23, 2024 11:40am Bilateral pleural effusion acute October 29, 2024 10:24am Mitral valve insufficiency acute October 29, 2024 10:24am Postoperative atrial fibrillation acute October 29 10:24am Essential hypertension chronic [place] 2024 10:24am Thoracic aortic aneurysm without rupture chronic October 29 10:24am Bilateral pleural effusion acute November 12, 2024 11:53am Bilateral pleural effusion acute December 22, 2024 9:23am Mitral valve insufficiency acute December 22, 2024 9:23am Postoperative atrial fibrillation acute December 22, 2024 9:23am Essential hypertension chronic [facility] 2024 9:23am Thoracic aortic aneurysm without rupture chronic December 22, 2024 9:23am [facility] Work Phone: 1(151) 667-387412-20-2024 Instructions* Patient Instructions* Savanna Kothari APRN.CNP - 08/28/2024 1:52 PM EST Elevate your toes above your nose! Sit in a recliner with your legs up. Avoid sitting for long periods of time. Wear compression socks. Apply them first things in the morning and remove them at bedtime. If swelling does not improve with over the counter socks fill the prescription for the compression stockings you were given today at any [facility]. Avoid sitting or standing for long periods of time If palpitations with breathing difficulty becomes more persistent, intense or does not resolve you should go to the ER or call 911 documented in this encounterPromedica Memorial Hospital12-20-2024 NoteHNO ID: [id number] Author: SAVANNA KOTHARI APRN.TYRA Service: ? Author Type: Nurse Practitioner Type: Progress Notes Filed: 08/28/2024 14:06 Note Text: CC: Patient presents with: Hospital F/U: [facility] Dr. Galloway. Has been having some dizziness off and on. SAVANNA Cai is a 73 year old female who [...] She is scheduled for follow-up with the belt cleaner on 09/03 and the surgeon on 10/07. [...] episode of palpitations causing her breath to catch but resolved quickly. 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 of both feet 08/30/2020 Controlled type 2 diabetes mellitus without complication, without long-term current use of insulin ([facility]LY [facility]) 05/29/2024 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 Galloway. Has been having some dizziness off and on. HPI Karla Cai is a 73 year old female who presents today for above. She was admitted to after elective outpatient ascending aortic aneurysm repair on 08/10. Postoperative course was complicated by new LBBB, vasoplegia requiring pressor support, arrhythmia,anemia requiring transfusion, acute hypoxic respiratory failure secondary to moderate ARDS requiring Airvo and large left pleural effusion s/p thoracentesis (08/18 for 850cc). She was discharged homeon 08/22 with new prescriptions for amiodarone, Eliquis, aspirin, and Lasix. She was also given a prescription for oxycodone for post operative pain control. Metoprolol dose was was decreased from 100 mg to 25 mg. Irbesartan and Aldactone were discontinued. She had a telehealth hospital follow-up with the cardiac nurse yesterday. She is scheduled for follow-up with the belt cleaner on 09/03 and the surgeon on 10/07. [...] episode of palpitations causing her breath to catch but resolved quickly. 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 Per [facility] VITAMIN A ORAL Take 400 [...] kg (175 lb) SpO2 96% BMI 26.61 kg/m Physical Exam Vitals reviewed. Constitutional: General: She [...] Affect: Mood normal. I have reviewed the patient s records from including diagnostic testing performed, their discharge medications, and my assessment and plan with the patient and any family members present at today s visit. ASSESSMENT/PLAN: 1. Bilateral lower extremity edema [...] more intense. Recommend discussing further with her belt cleaner at appointment on 09/03 3. Dyspnea on [...] symptoms occur. Patient agreeable to treatment plan. Saavnna Kothari APRN.SURGICAL ONCOLOGIST documented in this encounterPromedica [facility] Hospital12-14-2024 History of Present illness Narrative* Vaishali Oseguera RN - 08/22/2024 10:14 AM EST 08/22/24 1014 Discharge Planning Expected Discharge Disposition Home H Patient has avtive discharge order. [facility] notified and they said SOC will be within 48 hours.. Patient is going home with [facility] following. 1015 Patient is medically ready for discharge They are being discharged to: Home _Husband will pick patient [facility] Name of agency on AVS- [facility] Patient denies any other needs * Alivia Nieto OT - 08/21/2024 4:33 PM EST Occupational Therapy OT Treatment Patient Name: Karla Cai Department: [place] [address] ICU Room: [address] [place] [address] Today's Date: 08/21/2024 Time Calculation Start Time: 1535 Stop Time: 1555 Time Calculation (min): 20 min Assessment: End of Session Communication: Bedside nurse End of Session Patient Position: Up in chair, Alarm off, caregiver present Plan: Treatment Interventions: ADL retraining, Functional transfer training, UE strengthening/ROM, Endurance training, Compensatory technique education OT Frequency: 3 times per week OT Discharge Recommendations: Low intensity level of continued care Equipment Recommended upon Discharge: (TBD) OT Recommended Transfer Status: Assist of 1 OT - OK to Discharge: Yes (continue per OT POC) Treatment Interventions: ADL retraining, Functional transfer training, UE strengthening/ROM, Endurance training, Compensatory technique education Subjective Previous Visit Info: OT Last Visit OT Received On: 08/21/24 General: General Reason for Referral: POD #11 s/p ascending aorta repair with LAAC Referred By: DO Ranjan Past Medical History Relevant to Rehab: Past Medical History: Diagnosis Date Allergic rhinitis Aortic regurgitation Arthritis bilateral feet Ascending aortic aneurysm (CMS-HCC) Breast cancer (Multi) 2010 s/p lumpectomy,radiation and tamoxifen CKD (chronic kidney disease) stage 2 Diverticulitis no issues since 2019 DM (diabetes mellitus) (Multi) diet controlled GERD (gastroesophageal reflux disease) occasional symptoms HLD (hyperlipidemia) Hypertension Hypokalemia Kidney cyst, acquired Mitral regurgitation Osteopenia Tricuspid regurgitation Family/Caregiver Present: Yes Caregiver Feedback: spouse Dominic present Prior to Session Communication: Bedside nurse Patient Position Received: Up in chair, Alarm off, caregiver present Preferred Learning Style: auditory, verbal, visual General Comment: Pt seated in chair upon arrival and agreeable to treatment. Pt fully particiaptoryin session. Pt declined ADLs this date, reports completed LB Dressing this AM with no assist and feels comfortable with UB dressing with assist from spouse PRN. Precautions: Medical Precautions: Cardiac precautions Post-Surgical Precautions: Move in the Tube Precautions Comment: reviewed MITT precautions with pt and spouse Vital Signs (Past 2hrs) Date/Time Vitals Session Patient Position Pulse Resp SpO2 BP MAP (mmHg) 08/21/24 1535 During OT -- -- -- -- -- -- Pain: Pain Assessment Pain Assessment: 0-10 0-10 (Numeric) Pain Score: 0 - No pain Pain Type: Surgical pain Pain Location: Chest Pain Interventions: Ambulation/increased activity, Repositioned Objective Cognition: Cognition Overall Cognitive Status: Within Functional Limits Orientation Level: Oriented X4 Bed Mobility/Transfers: Transfers Transfer: Yes Transfer 1 Technique 1: Sit to stand, Stand to sit Transfer Device 1: (no AD) Transfer Level of Assistance 1: Modified independent Trials/Comments 1: from chair, pt adheres to MITT precautions, pt prefers to use cardiac pillow during transfer Standing Balance: Static Standing Balance Static Standing-Balance Support: No upper extremity supported Static Standing-Level of Assistance: Close supervision Static Standing-Comment/Number of Minutes: FWW Dynamic Standing Balance Dynamic Standing-Comments: SBA-CGA Therapy/Activity: Therapeutic Activity Therapeutic Activity Performed: Yes Therapeutic Activity 1: Pt functionally navigated x mod household distance using no AD with [id number]-CGAx1. No LOB Noted. Pt fatigues quickly, requires intermittent short standing rest breaks d/t fatigue. Cues for PLB. Therapeutic Activity 2: Pt and spouse educated on framing inspector and long handled sponge for maximal safety for ADLs. Provided pt and spouse with handout in order to obtain AE. Educated on MITT precautions and compensatory techniques for ADLs, both pt and spouse receptive to all education. Outcome Measures:[facility] Daily Activity Putting on and taking off regular lower body clothing: A little Bathing (including washing, rinsing, drying): A little Putting on and taking off regular upper body clothing: A little Toileting, which includes using toilet, bedpan or urinal: A little Taking care of personal grooming such as brushing teeth: None Eating Meals: None Daily Activity - Total Score: 20 Education Documentation Body Mechanics, taught by Alivia Nieto OT at 08/21/2024 4:31 PM. Learner: Significant Other, Patient Readiness: Acceptance Method: Explanation, Demonstration, Handout Response: Verbalizes Understanding Handouts, taught by Alivia Nieto OT at 08/21/2024 4:31 PM. Learner: Significant Other, Patient Readiness: Acceptance Method: Explanation, Demonstration, Handout Response: Verbalizes Understanding Precautions, taught by Alivia Nieto OT at 08/21/2024 4:31 PM. Learner: Significant Other, Patient Readiness: Acceptance Method: Explanation, Demonstration, Handout Response: Verbalizes Understanding ADL Training, taught by Alivia Nieto OT at 08/21/2024 4:31 PM. Learner: Significant Other, Patient Readiness: Acceptance Method: Explanation, Demonstration, Handout Response: Verbalizes Understanding Education Comments No comments found. Goals: Encounter Problems Encounter Problems (Active) ADLs Patient will perform UB and LB bathing with independent level of assistance. (Progressing) Start: 08/11/24 Expected End: 08/25/24 Patient with complete upper body dressing with independent level of assistance donning and doffing all UE clothes with no adaptive equipment while edge of bed (Progressing) Start: 08/11/24 Expected End: 08/25/24 Patient with complete lower body dressing with independent level of assistance donning and doffing all LE clothes with no adaptive equipment while standing (Progressing) Start: 08/11/24 Expected End: 08/25/24 Patient will complete daily grooming tasks brushing teeth and washing face/hair with independent level of assistance and PRN adaptive equipment while standing. (Progressing) Start: 08/11/24 Expected End: 08/25/24 Patient will complete toileting including hygiene clothing management/hygiene with independent level of assistance and raised toilet seat. (Progressing) Start: 08/11/24 Expected End: 08/25/24 BALANCE Pt will maintain dynamic standing balance during ADL task with independent level of assistance in order to demonstrate decreased risk of falling and improved postural control. (Progressing) Start: 08/11/24 Expected End: 08/25/24 TRANSFERS Patient will perform bed mobility independent level of assistance and bed rails in order to improvesafety and independence with mobility (Progressing) Start: 08/11/24 Expected End: 08/25/24 Patient will complete functional transfer to all surfaces with least restrictive device with independent level of assistance. (Progressing) Start: 08/11/24 Expected End: 08/25/24 * Joanie Koo RD - 08/21/2024 4:00 PM EST Nutrition Note Length of Stay Pt admitted 08/10 10/11 aneurysm of ascending aorta without rupture. S/p ascending aortic replacement 08/10. Chart reviewed, events noted. Dietary Orders (From admission, onward) Start Ordered 08/19/24 0653 May Not Participate in Room Service ( ROOM SERVICE MAY NOT PARTICIPATE) Once Question: . Answer: Yes 08/19/24 0652 08/17/24 1607 Oral nutritional supplements Until discontinued Question Answer Comment Deliver with Breakfast Select supplement: Ensure Clear 08/17/24 1607 08/17/24 0813 Adult diet Regular; 1500 mL fluid Diet effective now Question Answer Comment Diet type Regular Dietary fluid restriction / 24h: 1500 mL fluid 08/17/24 0812 Latest Reference Range & Units 08/21/24 05:14 GLUCOSE 74 - 99 mg/dL 114 (H) SODIUM 136 - 145 mmol/L 138 POTASSIUM 3.5 - 5.3 mmol/L 3.7 CHLORIDE 98 - 107 mmol/L 107 Bicarbonate 21 - 32 mmol/L 24 Anion Gap 10 - 20 mmol/L 11 Blood Urea Nitrogen 6 - 23 mg/dL 34 (H) Creatinine 0.50 - 1.05 mg/dL 0.79 EGFR >60 mL/min/1.73m*2 79 Calcium 8.6 - 10.3 mg/dL 7.7 (L) PHOSPHORUS 2.5 - 4.9 mg/dL 3.5 Albumin 3.4 - 5.0 g/dL 2.7 (L) MAGNESIUM 1.60 - 2.40 mg/dL 2.20 (H): Data is abnormally high (L): Data is abnormally low Scheduled medications amiodarone, 400 mg, oral, BID Followed by [START ON 09/01/2024] amiodarone, 200 mg, oral, Daily apixaban, 5 mg, oral, BID aspirin, 81 mg, oral, Daily furosemide, 20 mg, oral, BID metoprolol tartrate, 25 mg, oral, BID multivitamin with minerals, 1 tablet, oral, Daily polyethylene glycol, 17 g, oral, Daily potassium chloride CR, 20 mEq, oral, BID pravastatin, 20 mg, oral, Nightly [Held by provider] sennosides-docusate sodium, 2 tablet, oral, BID Continuous medications PRN medications PRN medications: acetaminophen, dextrose, dextrose, glucagon, glucagon, ipratropium-albuteroL, [DISCONTINUED] ondansetron ODT OR ondansetron, oxyCODONE, oxygen, simethicone, traZODone Visit Vitals BP 125/73 (BP Location: Right arm, Patient Position: Sitting) Pulse 87 Temp 37 C (98.6 F) (Temporal) Resp 14 Ht 1.753 m (5' 9) Wt 79.8 kg (175 lb 14.8 oz) SpO2 98% BMI 25.98 kg/m OB Status Hysterectomy Smoking Status Never BSA 1.97 m Oral intake variable/fair. Possible discharge home tomorrow. Recommend continue MVI and oral nutrition supplement as ordered, FR as per MD. Please consult dietitian for complete assessment, if indicated. * Sarah Giles PTA - 08/21/2024 3:41 PM EST Physical Therapy Physical Therapy Treatment Patient Name: Karla Cai Department: [place] [id number] ICU Room: [address] [place] [address] Today's Date: 08/21/2024 Time Calculation Start Time: 1416 Stop Time: 1439 Time Calculation (min): 23 min Assessment/Plan PT Assessment PT Assessment Results: Decreased strength, Decreased endurance, Impaired balance, Decreased mobility, Pain Rehab Prognosis: Good Barriers to Discharge: ongoing medical and PT needs Evaluation/Treatment Tolerance: Patient limited by fatigue (and SOB) Strengths: Ability to acquire knowledge, Coping skills, Support and attitude of living partners Barriers to Participation: Comorbidities End of Session Communication: Bedside nurse Assessment Comment: Pt limited by fatigue and SOB this session. She demonstrated good progress toward stair goal. present for instruction/education and able to assist as needed at home. End of Session Patient Position: Up in chair, Alarm off, caregiver present PT Plan Inpatient/Swing Bed or Outpatient: Inpatient PT Plan Treatment/Interventions: Transfer training, Gait training, Stair training, Endurance training, Therapeutic activity PT Plan: Ongoing PT PT Frequency: 4 times per week PT Discharge Recommendations: Low intensity level of continued care Equipment Recommended upon Discharge: Wheeled walker PT Recommended Transfer Status: Assist x1 PT - OK to Discharge: Yes (per PT POC) General Visit Information: PT Visit PT Received On: 08/21/24 Response to Previous Treatment: Patient reporting fatigue but able to participate. General Reason for Referral: POD #11 s/p ascending aorta repair with LAAC Referred By: Pack, DO Family/Caregiver Present: Yes Caregiver Feedback: spouse Dominic present Prior to Session Communication: Bedside nurse Patient Position Received: Up in chair, Alarm off, caregiver present Preferred Learning Style: verbal, visual, auditory General Comment: Pt agreeable to participate. Reporting fatigue and dyspnea. RN stating ok for pt to participate Subjective Precautions: Precautions Medical Precautions: Cardiac precautions Post-Surgical Precautions: Move in the Tube Precautions Comment: reviewed MITT precautions with pt and spouse Vital Signs (Past 2hrs) Date/Time Vitals Session Patient Position Pulse Resp SpO2 BP MAP (mmHg) 08/21/24 1346 -- -- -- -- 94 % -- -- 08/21/24 1416 During PT -- 91 -- -- -- -- Objective Pain: Pain Assessment Pain Assessment: 0-10 0-10 (Numeric) Pain Score: 0 - No pain Cognition: Cognition Overall Cognitive Status: Within Functional Limits Coordination: Movements are Fluid and Coordinated: Yes Postural Control: Postural Control Postural Control: Within Functional Limits Static Sitting Balance Static Sitting-Balance Support: Bilateral upper extremity supported, Feet supported Static Sitting-Level of Assistance: Close supervision Dynamic Sitting Balance Dynamic Sitting-Balance Support: Bilateral upper extremity supported, Feet supported Dynamic Sitting-Level of Assistance: Contact guard, Close supervision Dynamic Sitting-Balance: Reaching for objects, Trunk control activities, Forward lean, Lateral lean Static Standing Balance Static Standing-Balance Support: No upper extremity supported Static Standing-Level of Assistance: Close supervision Dynamic Standing Balance Dynamic Standing-Balance Support: No upper extremity supported Dynamic Standing-Level of Assistance: Close supervision, Contact guard Dynamic Standing-Balance: Turning, Reaching for objects Activity Tolerance: Activity Tolerance Endurance: Tolerates less than 10 min exercise, no significant change in vital signs Treatments: Ambulation/Gait Training Ambulation/Gait Training Performed: Yes Ambulation/Gait Training 1 Surface 1: Level tile Device 1: No device Gait Support Devices: Gait belt Assistance 1: Close supervision Quality of Gait 1: Decreased step length Comments/Distance (ft) 1: 15' and 10' x 2. Pt first did stair negotiation, then stated thats all she could do at this time. Stating she will walk later with or staff. Transfers Transfer: Yes Transfer 1 Transfer From 1: Chair with arms to Transfer to 1: Chair with arms Technique 1: Sit to stand, Stand to sit Transfer Device 1: (none) Transfer Level of Assistance 1: Close supervision Trials/Comments 1: 2 trials. MITT precautions followed. Transfers 2 Transfer From 2: Toilet to Transfer to 2: Stand Technique 2: Sit to stand Transfer Device 2: (none) Transfer Level of Assistance 2: Close supervision Trials/Comments 2: toilet seat used for ue placement. Stairs Stairs: Yes Stairs Rails 1: Left Curb Step 1: No Device 1: Single point cane Support Devices 1: Gait belt Assistance 1: Close supervision Comment/Number of Steps 1: x 7 stairs with breif standing rests needed to complete with ascending. Slow but continuous descending. Only Initial instruction needed for cane and rail sequencing. Outcome Measures: [facility] Basic Mobility Turning from your back to your side while in a flat bed without using bedrails: A little Moving from lying on your back to sitting on the side of a flat bed without using bedrails: A lot Moving to and from bed to chair (including a wheelchair): A little Standing up from a chair using your arms (e.g. wheelchair or bedside chair): A little To walk in hospital room: A little Climbing 3-5 steps with railing: A little Basic Mobility - Total Score: 17 FSS-ICU Ambulation: Walks >/ or equal to 50 feet with any assistance Rolling: Moderate assistance (performs 50 - 74% of task) Sitting: Supervision or set-up only Transfer Mkp-on-Gdifl: Minimal Assist (CGA from wheel chair) Transfer Deeecn-xl-Loi: Moderate assistance (performs 50 - 74% of task) Total Score: 21 Education Documentation Handouts, taught by Sarah Giles PTA at 08/21/2024 3:39 PM. Learner: Significant Other, Patient Readiness: Acceptance Method: Explanation, Demonstration Response: Verbalizes Understanding, Demonstrated Understanding Precautions, taught by Sarah Giles PTA at 08/21/2024 3:39 PM. Learner: Significant Other, Patient Readiness: Acceptance Method: Explanation, Demonstration Response: Verbalizes Understanding, Demonstrated Understanding Body Mechanics, taught by Sarah Giles PTA at 08/21/2024 3:39 PM. Learner: Significant Other, Patient Readiness: Acceptance Method: Explanation, Demonstration Response: Verbalizes Understanding, Demonstrated Understanding Home Exercise Program, taught by Sarah Giles PTA at 08/21/2024 3:39 PM. Learner: Significant Other, Patient Readiness: Acceptance Method: Explanation, Demonstration Response: Verbalizes Understanding, Demonstrated Understanding Mobility Training, taught by Sarah Giles PTA at 08/21/2024 3:39 PM. Learner: Significant Other, Patient Readiness: Acceptance Method: Explanation, Demonstration Response: Verbalizes Understanding, Demonstrated Understanding Education Comments No comments found. OP EDUCATION: Encounter Problems Encounter Problems (Active) PT Problem Patient will complete bed mobility with logroll technique, HOB flat and MOD I (Progressing) Start: 12/03/24 Expected End: 08/25/24 Patient will complete all transfers (sit to/from standing, bed to/from chair) with mod I x1 and LRAD, using safe technique. (Progressing) Start: 08/11/24 Expected End: 08/25/24 Patient will ambulate mod I to independent >500 feet in 6 minutes with stable vitals, minimal ally BLUE, and normal gait speed. (Not Progressing) Start: 08/11/24 Expected End: 08/25/24 Patient will ascend/descend 7 stairs with HR support +/- LRAD and SBA, with adherence to precautions and safe technique (Progressing) Start: 08/11/24 Expected End: 08/25/24 Patient will recall and adhere to MITT precautions independently with all activities. (Progressing) Start: 08/11/24 Expected End: 08/25/24 Pain - Adult Safety LTG - Patient will adhere to hip precautions during ADL's and transfers Start: 08/10/24 LTG - Patient will demonstrate safety requirements appropriate to situation/environment Start: 08/10/24 LTG - Patient will utilize safety techniques Start: 08/10/24 STG - Patient locks brakes on wheelchair Start: 08/10/24 STG - Patient uses call light consistently to request assistance with transfers Start: 08/10/24 STG - Patient uses gait belt during all transfers Start: 08/10/24 Goal 1 Start: 08/10/24 Goal 2 Start: 08/10/24 Goal 3 Start: 08/10/24 Cosigned by Jessy Hernández, PT at 08/21/2024 6:48 PM EST * Herlinda Castillo RN - 08/21/2024 1:49 PM EST 08/21/24 1348 Discharge Planning Who is requesting discharge planning? Provider Home or Post Acute Services In home services Type of Home Care Services Home OT;Home PT Expected Discharge Disposition Home H Does the patient need discharge transport arranged? No Intensity of Service Intensity of Service 0-30 min 08/21/24 1349 Patient not ready for discharge today due to leukocytosis. Possible discharge tomorrow. Will go home with [facility]. Herlinda Castillo RN TCC * Adriana Garnica PA-C - 08/21/2024 11:39 AM EST Karla Cai is a 73 y.o. female on day 11 of admission presenting with Aneurysm of ascendingaorta without rupture ([facility]). Subjective Feeling well, wants to go home Denies respiratory (cough, drainage, phlegm, SOB) and urinary (burning, pain, irritation) sxs. Urinary ugency and frequency attributed to Lasix and improve after Lasix half life Objective Physical Exam Constitutional: General: She is not in acute distress. Appearance: Normal appearance. She is not ill-appearing, toxic-appearing or diaphoretic. HENT: Mouth/Throat: Mouth: Mucous membranes are moist. Eyes: Pupils: Pupils are equal, round, and reactive to light. Comments: Lt eye slightly more closed than Rt. Per patient and at bedside, this is normal and due to hx acoustic neuroma removal 25+ years ago Cardiovascular: Rate and Rhythm: Normal rate and regular rhythm. Pulmonary: Effort: Pulmonary effort is normal. No respiratory distress. Breath sounds: Normal breath sounds. No stridor. No wheezing or rhonchi. Comments: CTAB not diminished no adventitious sounds on RA Abdominal: General: There is no distension. Palpations: Abdomen is soft. Tenderness: There is no abdominal tenderness. Comments: +BM Skin: General: Skin is warm and dry. Comments: Well approx MSI stable to palp no e/e/p No noted erythema over thoracentesis site Neurological: General: No focal deficit present. Mental Status: She is alert and oriented to person, place, and time. Psychiatric: Mood and Affect: Mood normal. Behavior: Behavior normal. Last Recorded Vitals Blood pressure 108/56, pulse 90, temperature 36.6 C (97.9 F), temperature source Tympanic, resp. rate 18, height 1.753 m (5' 9), weight 79.8 kg (175 lb 14.8 oz), SpO2 94%. Intake/Output last 3 Shifts: I/O last 3 completed shifts: In: 770 (9.6 mL/kg) [P.O.:720; I.V.:50 (0.6 mL/kg)] Out: 2200 (27.6 mL/kg) [Urine:2200 (0.8 mL/kg/hr)] Weight: 79.8 kg Relevant Results Scheduled medications amiodarone, 400 mg, oral, BID Followed by [START ON 09/01/2024] amiodarone, 200 mg, oral, Daily apixaban, 5 mg, oral, BID aspirin, 81 mg, oral, Daily furosemide, 20 mg, oral, BID metoprolol tartrate, 25 mg, oral, BID multivitamin with minerals, 1 tablet, oral, Daily polyethylene glycol, 17 g, oral, Daily potassium chloride CR, 20 mEq, oral, BID pravastatin, 20 mg, oral, Nightly [Held by provider] sennosides-docusate sodium, 2 tablet, oral, BID Continuous medications PRN medications PRN medications: acetaminophen, dextrose, dextrose, glucagon, glucagon, ipratropium-albuteroL, [DISCONTINUED] ondansetron ODT OR ondansetron, oxyCODONE, oxygen, simethicone, traZODone LABS: CMP: Results from last 7 days Lab Units 08/21/24 0514 08/20/24 0618 08/19/24 0508 08/18/24 0529 08/17/24 0523 08/16/24 0529 08/15/24 0526 SODIUM mmol/L 138 137 139 139 135* 132* 134* POTASSIUM mmol/L 3.7 4.6 4.0 4.2 3.9 4.0 4.4 CHLORIDE mmol/L 107 106 107 106 103 102 101 CO2 mmol/L 24 23 24 25 23 22 25 ANION GAP mmol/L 11 13 12 12 13 12 12 BUN mg/dL 34* 36* 33* 35* 38* 40* 41* CREATININE mg/dL 0.79 0.97 0.81 0.79 0.83 0.81 0.86 EGFR mL/min/1.73m*2 79 61 76 79 74 76 71 MAGNESIUM mg/dL 2.20 2.16 1.91 2.08 2.22 2.34 2.37 ALBUMIN g/dL 2.7* 3.0* 2.7* 3.0* 3.0* 3.0* 3.2* CBC: Results from last 7 days Lab Units 08/21/24 1008 08/20/24 0618 08/19/24 0508 08/18/24 0529 08/17/24 0523 08/16/24 0528 08/15/24 0526 WBC AUTO x10*3/uL 17.1* 15.1* 11.8* 11.5* 11.9* 10.2 10.3 HEMOGLOBIN g/dL 9.9* 9.3* 9.0* 8.9* 8.4* 8.5* 8.7* HEMATOCRIT % 31.8* 29.7* 27.6* 27.8* 25.5* 25.2* 26.6* PLATELETS AUTO x10*3/uL 614* 542* 433 409 342 287 283 MCV fL 94 96 94 91 92 90 91 COAG: HEME/ENDO: CARDIAC: XR chest 1 view Final Result Persistent bibasilar infiltrates and/or pleural effusions. No definite pneumothorax. MACRO: None. Signed by: Fernanda Lambert 08/19/2024 12:17 PM Dictation workstation: [id number] XR chest 1 view Final Result Status post left-sided thoracentesis. No pneumothorax. Mild residual pleural and parenchymal opacities at the left base, improved. Mild stable infiltrate versus atelectasis at the medial right lung base. Previous heart surgery. Stable cardiomegaly. MACRO: None Signed by: Rob Hussein 08/18/2024 3:37 PM Dictation workstation: [id number] US thoracentesis Final Result Uneventful thoracentesis, as detailed above. Left pleural space, 850 mL I personally performed and/or directly supervised this study and was present for the entire procedure. Performed and dictated at [facility]. Signed by: Pee Tavares 08/18/2024 4:08 PM Dictation workstation: [id number] XR chest 2 views Final Result Cardiomegaly. Bilateral pleural effusions, left greater than right. Underlying infiltrates or atelectasis can not be excluded. MACRO: None Signed by: Elisabet Borges 08/18/2024 11:54 AM Dictation workstation: [id number] XR chest 2 views Final Result Interval removal of support devices. Status post sternotomy. Keci-cisfxzl-kjst-right basilar infiltrates and/or pleural effusions. MACRO: None. Signed by: Fernanda Lambert 08/17/2024 11:22 AM Dictation workstation: [id number] XR chest 1 view Final Result 1. Patchy bibasilar opacities may represent atelectasis, edema, aspiration, or infection. 2. Small left pleural effusion. MACRO: None Signed by: Lenard Munguia 08/14/2024 8:07 AM Dictation workstation: [id number] XR chest 1 view Final Result 1. Near-total resolution of the right apical pneumothorax with question of tiny residual. 2. Persistent left basilar effusion and infiltrate for which continued follow-up recommended. Question subtle right basilar infiltrate. MACRO: None Signed by: Chirag Ortega 08/13/2024 8:06 AM Dictation workstation: [id number] XR chest 1 view Final Result 1. Stable exam. Small right apical pneumothorax. MACRO: None Signed by: Lenard Munguia 08/12/2024 6:05 PM Dictation workstation: [id number] Transthoracic Echo (TTE) Limited Final Result XR chest 1 view Final Result Recent heart surgery. Stable right IJ vein catheter and bibasilar chest tubes. Decrease in size of now tiny right apical pneumothorax. Stable pleural and parenchymal opacities at the left base. Stable atelectasis at the medial right lung base. Cardiomegaly. MACRO: None Signed by: Rob Hussein 08/12/2024 8:04 AM Dictation workstation: [id number] XR chest 1 view Final Result Recent heart surgery. ET tube and NG [...] Rob Hussein 08/11/2024 8:18 AM Dictation workstation: [id number] XR chest 1 view Final Result Status post sternotomy with multiple support devices in place as above. Questionable small left apical pneumothorax. Kmlt-fezgsji-ynyg-right basilar infiltrates or atelectasis. MACRO: None. Signed by: Fernanda Lambert 08/10/2024 2:44 PM Dictation workstation: [id number] Anesthesia Intraoperative Transesophageal Echocardiogram Final Result XR chest 1 view (Results Pending) Assessment/Plan Assessment & Plan Aneurysm of ascending aorta without rupture ([facility]) Acute respiratory distress syndrome (ARDS) (Multi) Karla (Charley) Trell is a 73yo female with known ascending aortic aneurysm and mild AI who presentedfor elective outpatient Asc Ao aneurysm replacement with Gelweave 30mm, LAAC 45mm Atriclip, PPW with Dr. Galloway. Additional PMHx includes Rt breast CA s/p lumpectomy with XRT, HTN, HLD, CKD, diverticulitis. Postoperative course has been complicated by new LBBB, vasoplegia requiring pressor support (resolved), arrhythmia (Afib RVR > NSR > accelerated jxl > NSR > Afib > NSR), anemia requiring transfusion, acute hypoxic respiratory failure 2/2 both moderate ARDS requiring Airvo and large Lt pleural effusion s/p thoracentesis (08/18 for 850cc). Currently, she is hemodynamically stable, oxygenating well on RA, able to ambulate and has done stairs with PT/OT, and tolerating diuresis, with no respiratory or urinary complaints nor sxs infection; however, she has an uptrending leukocytosis. Neuro: # Acute expected postop pain - well controlled - Serial neuro and pain assessments - Analgesia: Scheduled Tylenol, PRN Oxy - PT/OT/MITT - ambulate in caba - AREDS, olopatadine eye gtts as needed - Trazodone for Sleep CV: # Asc Ao aneurysm s/p Asc Ao replacement, LAAC, PPW # Postoperative vasoplegia - resolved # Postoperative arrhythmia (Afib > NSR > accel. Jxl > NSR > Afib > NSR) - in NSR # New LBBB # Postoperative HFmrEF (normal biV pre and post CPB; 08/12 TTE EF 49% reduced RV/mild MR) # Hx HTN, HLD - Cut EP wires prior to discharge - ASA, statin, Metoprolol 25 mg bid titrate as HDs permit - PO Amio load - Hold home irbesartan, spironolactone for now - Change to PO Lasix BID with supplemental K Pulm: # Acute hypoxic respiratory failure 2/2 moderate ARDS req'ing Airvo and increased Lt pleural effusion s/p thoracentesis - resolved 08/18 2v CXR increased Lt pleural effusion now s/p Lt thoracentesis (850cc serous fluid) - Wean FiO2 to SpO2 > 90% - Aggressive BPH, cough, deep breathing - Duoneb PRN - No indication for home O2 eval at this point; oxygenating well on RA during rest and ambulation GI: # Poor po intake - improving # Hx Diverticulitis - Regular Diet - Continue 1500ml FR - PRN bowel regimen, mylicon - GI ppx: not indicated /Renal # Total body fluid overload # Stage II CKD (baseline Cr 0.9) - RFP daily, replete lytes per protocol - I&Os Heme/Onc: # Acute blood loss anemia, periop coagulopathy - no overt bleeding, HDS # Hx breast CA s/p lumpectomy and XRT - CBC daily - DVTppx: SCDs, Eliquis (for postop Afib) - MVI Endo: Pre-DM (A1c 5.9) - Check daily with AM labs - Maintain BG < 180. Hypoglycemia protocol ID: Leukocytosis - uptrending, afebrile, no sxs infection - Trend temp, WBCs - Periop abx completed - Will get CXR and UA with reflex now given rising leukocytosis Discussed with Dr. Galloway via telephone. Dispo: remain inpatient today given rising leukocytosis. Potential discharge tomorrow Time spent in patient encounter may include but are not limited to: review of external notes, prescription drug management, management of social determinants of health, order and/or independent review and interpretation of test results, discussion with other services/medical lab scientist, and discussion regarding major surgery, hospitalization and/or level of care needed, and/or code status. LEVEL OF COMPLEXITY: high TIME: 60 minutes Adriana Garnica PA-C * Alivia Nieto OT - 08/20/2024 5:32 PM EST Occupational Therapy OT Treatment Patient Name: Karla Cai Department: [place] [id number] ICU Room: [facility] Today's Date: 08/20/2024 Time Calculation Start Time: 164 Stop Time: 1659 Time Calculation (min): 18 min Assessment: End of Session Communication: Bedside nurse End of Session Patient Position: Up in chair, Alarm off, caregiver present Plan: Treatment Interventions: ADL retraining, Functional transfer training, UE strengthening/ROM, Endurance training, Compensatory technique education OT Frequency: 3 times per week OT Discharge Recommendations: Low intensity level of continued care Equipment Recommended upon Discharge: (TBD) OT Recommended Transfer Status: Assist of 1 OT - OK to Discharge: Yes (continue per OT POC) Treatment Interventions: ADL retraining, Functional transfer training, UE strengthening/ROM, Endurance training, Compensatory technique education Subjective Previous Visit Info: OT Last Visit OT Received On: 08/20/24 General: General Reason for Referral: POD #10 s/p ascending aorta repair with LAAC Referred By: DO Ranjan Past Medical History Relevant to Rehab: Past Medical History: Diagnosis Date Allergic rhinitis Aortic regurgitation Arthritis bilateral feet Ascending aortic aneurysm ([facility]) Breast cancer (Multi) 2010 s/p lumpectomy,radiation and tamoxifen CKD (chronic kidney disease) stage 2 Diverticulitis no issues since 2019 DM (diabetes mellitus) (Multi) diet controlled GERD (gastroesophageal reflux disease) occasional symptoms HLD (hyperlipidemia) Hypertension Hypokalemia Kidney cyst, acquired Mitral regurgitation Osteopenia Tricuspid regurgitation Family/Caregiver Present: Yes Caregiver Feedback: spouse Dominic present Prior to Session Communication: Bedside nurse Patient Position Received: Up in chair, Alarm off, caregiver present Preferred Learning Style: verbal, visual, auditory General Comment: Pt seated in chair upon arrival and agreeable to treatment. Pt fully participatory. VSS throughout session. Educated pt and spouse on AE/DME for safe homegoing, pt and spouse receptive. Precautions: Medical Precautions: Cardiac precautions Post-Surgical Precautions: Move in the Tube Precautions Comment: reviewed MITT precautions with pt and spouse Vital Signs (Past 2hrs) BP MAP (mmHg) 08/20/24 1641 -- -- 85 -- 96 % -- -- Pain: Pain Assessment Pain Assessment: 0-10 0-10 (Numeric) Pain Score: 3 Pain Type: Surgical pain Pain Location: Chest Pain Interventions: Ambulation/increased activity, Repositioned Objective Cognition: Cognition Overall Cognitive Status: Within Functional Limits Orientation Level: Oriented X4 Activities of Daily Living: Grooming Grooming Level of Assistance: Modified independent Grooming Where Assessed: (toilet) Grooming Comments: seated hand hygiene Toileting Toileting Level of Assistance: Close supervision, Minimal verbal cues Where Assessed: Toilet Toileting Comments: cues for safety awareness and to adhere to MITT precautions Bed Mobility/Transfers: Transfers Transfer: Yes Transfer 1 Technique 1: Sit to stand, Stand to sit Transfer Device 1: Walker Transfer Level of Assistance 1: Close supervision, Minimal verbal cues Trials/Comments 1: cues for safe hand placement and sequencing to adhere to MITT precautions Toilet Transfers Toilet Transfer Type: To and from Toilet Transfer to: Raised toilet seat with rails Toilet Transfer Technique: Ambulating Toilet Transfers: Supervision Toilet Transfers Comments: cues for safe hand placement to adhere to MITT precautions Standing Balance: Static Standing Balance Static Standing-Balance Support: Bilateral upper extremity supported Static Standing-Level of Assistance: Close supervision Static Standing-Comment/Number of Minutes: FWW Dynamic Standing Balance Dynamic Standing-Comments: SBA using FWW Therapy/Activity: Therapeutic Activity Therapeutic Activity Performed: Yes Therapeutic Activity 1: Pt functionally navigated x mod household distance using FWW with SBA x1. Cues for walker safety, no LOB Noted. Pt requires intermittent short standing rest breaks d/t fatigue. Cues for PLB. VSS. Outcome Measures:[facility] Daily Activity Putting on and taking off regular lower body clothing: A little Bathing (including washing, rinsing, drying): A little Putting on and taking off regular upper body clothing: A little Toileting, which includes using toilet, bedpan or urinal: A little Taking care of personal grooming such as brushing teeth: None Eating Meals: None Daily Activity - Total Score: 20 Education Documentation Body Mechanics, taught by Alivia Nieto OT at 08/20/2024 5:29 PM. Learner: Patient Readiness: Acceptance Method: Explanation Response: Verbalizes Understanding Precautions, taught by Alivia Nieto OT at 08/20/2024 5:29 PM. Learner: Patient Readiness: Acceptance Method: Explanation Response: Verbalizes Understanding ADL Training, taught by Alivia Nieto OT at 08/20/2024 5:29 PM. Learner: Patient Readiness: Acceptance Method: Explanation Response: Verbalizes Understanding Education Comments No comments found. OP EDUCATION: Goals: Encounter Problems Encounter Problems (Active) ADLs Patient will perform UB and LB bathing with independent level of assistance. (Progressing) Start: 08/11/24 Expected End: 08/25/24 Patient with complete upper body dressing with independent level of assistance donning and doffing all UE clothes with no adaptive equipment while edge of bed (Progressing) Start: 08/11/24 Expected End: 08/25/24 Patient with complete lower body dressing with independent level of assistance donning and doffing all LE clothes with no adaptive equipment while standing (Progressing) Start: 08/11/24 Expected End: 08/25/24 Patient will complete daily grooming tasks brushing teeth and washing face/hair with independent level of assistance and PRN adaptive equipment while standing. (Progressing) Start: 08/11/24 Expected End: 08/25/24 Patient will complete toileting including hygiene clothing management/hygiene with independent level of assistance and raised toilet seat. (Progressing) Start: 08/11/24 Expected End: 08/25/24 BALANCE Pt will maintain dynamic standing balance during ADL task with independent level of assistance in order to demonstrate decreased risk of falling and improved postural control. (Progressing) Start: 08/11/24 Expected End: 08/25/24 TRANSFERS Patient will perform bed mobility independent level of assistance and bed rails in order to improvesafety and independence with mobility (Progressing) Start: 08/11/24 Expected End: 08/25/24 Patient will complete functional transfer to all surfaces with least restrictive device with independent level of assistance. (Progressing) Start: 08/11/24 Expected End: 08/25/24 * Isabel Palacios RN - 08/20/2024 2:48 PM EST Cigarette Seller Note: Plan: patient s/p asc aorta replacement. ARDS post op. S/p thoracentesis. PTOT rec LOW. Monitoring heart rate. Home o2 eval at dc. Status: inpatient Payor: rosy medicare Disposition: Home with new [facility] PT OT Barrier: HR control ADOD: tomorrow Isabel Palacios [facility] 08/20/24 [id number] Discharge Planning Expected Discharge Disposition Home H Intensity of Service Intensity of Service 0-30 min * Indu Holman PharmD - 08/20/2024 12:08 PM EST Karla Cai was identified as being a new start on a high cost medication. Medication name(s): Eliquis (initiated this AM for afib) Discussed with patient and at bedside. Per test claim on Pharmacy software, the copay is$42 per month. The cost is affordable for patient. Medication counseling provided to patient on what the medication does, dosing, side effects, and monitoring parameters. Answered all questions regarding medication, cost, and assistance options to the best of my ability. Patient requesting some reading material on the Eliquis as medical team has not discussed anticoagulation plan with her yet. I will return to drop some off. Indu Holman PharmD Transitions of Care P: [phone] * Sarah Giles PTA - 08/20/2024 12:03 PM EST Physical Therapy Physical Therapy Treatment Patient Name: Karla Cai Department: [place] [id number] ICU Room: [address] [place] [address] Today's Date: 08/20/2024 Time Calculation Start Time: 1024 Stop Time: 1047 Time Calculation (min): 23 min Assessment/Plan PT Assessment PT Assessment Results: Decreased strength, Decreased endurance, Impaired balance, Decreased mobility, Pain Rehab Prognosis: Good Barriers to Discharge: ongoing medical and PT needs Evaluation/Treatment Tolerance: Patient limited by fatigue Medical Staff Made Aware: Yes Strengths: Ability to acquire knowledge, Insight into problems, Support and attitude of living partners Barriers to Participation: Comorbidities End of Session Communication: Bedside nurse Assessment Comment: Pt had no complaint of dizziness this session, and HR statying between 83 - 87 bpm. Quick to fatigue, though fully participating with frequent rest brakes to manage fatigue. Stairnegotiaton training began today. This [employer] discussed with supervising PT, the increase in pt tolerance for activity - pt would benefit from increased frequency to x4 per week to attain goals prior to discharge. End of Session Patient Position: Up in chair, Alarm off, caregiver present PT Plan Inpatient/Swing Bed or Outpatient: Inpatient PT Plan Treatment/Interventions: Transfer training, Gait training, Stair training, Endurance training, Therapeutic activity PT Plan: Ongoing PT PT Frequency: 4 times per week PT Discharge Recommendations: Low intensity level of continued care Equipment Recommended upon Discharge: Wheeled walker PT Recommended Transfer Status: Stand by assist, Assistive device PT - OK to Discharge: Yes (per PT POC) General Visit Information: PT Visit PT Received On: 08/20/24 General Reason for Referral: POD #10 s/p ascending aorta repair with LAAC Referred By: Pack, DO Family/Caregiver Present: Yes Caregiver Feedback: Dominic extremely supportive of patient Prior to Session Communication: Bedside nurse Patient Position Received: Up in chair, Alarm off, caregiver present Preferred Learning Style: auditory, kinesthetic, visual General Comment: Pt fully participatory. HR within therapeutic range. No complaint of dizziness today. Subjective Precautions: Precautions Medical Precautions: Cardiac precautions, Oxygen therapy device and L/min Post-Surgical Precautions: Move in the Tube Vital Signs (Past 2hrs) Date/Time Vitals Session Patient Position Pulse Resp SpO2 BP MAP (mmHg) 08/20/24 1024 During PT -- 86 -- -- 95 127/71 -- Objective Pain: Pain Assessment Pain Assessment: 0-10 0-10 (Numeric) Pain Score: 0 - No pain Cognition: Cognition Orientation Level: Oriented X4 Coordination: Movements are Fluid and Coordinated: Yes Postural Control: Postural Control Postural Control: Within Functional Limits Static Sitting Balance Static Sitting-Balance Support: Bilateral upper extremity supported, Feet supported Static Sitting-Level of Assistance: Close supervision Dynamic Sitting Balance Dynamic Sitting-Balance Support: Bilateral upper extremity supported, Feet supported Dynamic Sitting-Level of Assistance: Contact guard, Close supervision Dynamic Sitting-Balance: Reaching for objects, Trunk control activities, Forward lean, Lateral lean Static Standing Balance Static Standing-Balance Support: Bilateral upper extremity supported Static Standing-Level of Assistance: Close supervision Static Standing-Comment/Number of Minutes: WW support Dynamic Standing Balance Dynamic Standing-Balance Support: Bilateral upper extremity supported Dynamic Standing-Level of Assistance: Close supervision, Contact guard Dynamic Standing-Balance: Turning, Reaching for objects Dynamic Standing-Comments: WW support Activity Tolerance: Activity Tolerance Endurance: Tolerates 10 - 20 min exercise with multiple rests Treatments: Therapeutic Activity Therapeutic Activity Performed: Yes Ambulation/Gait Training Ambulation/Gait Training Performed: Yes Ambulation/Gait Training 1 Surface 1: Level tile Device 1: Rolling walker Gait Support Devices: Gait belt Assistance 1: Close supervision Quality of Gait 1: Decreased step length Comments/Distance (ft) 1: 130' with standing rest midway through. Slowed velocity, Steady, mild SOBwith SpO2 mid 90s. Transfers Transfer: Yes Transfer 1 Transfer From 1: Chair with arms to Transfer to 1: Chair with arms Technique 1: Sit to stand, Stand to sit Transfer Device 1: Gait belt Transfer Level of Assistance 1: Close supervision Trials/Comments 1: Min cues for correct MITT precaution hand placement . Transfers 2 Transfer From 2: Wheelchair to, Sit to Transfer to 2: Wheelchair, Stand Technique 2: Sit to stand, Stand to sit Transfer Device 2: Walker Transfer Level of Assistance 2: Contact guard Trials/Comments 2: x 2 trials each. Stairs Stairs: Yes Stairs Rails 1: Left Curb Step 1: No Device 1: No device Support Devices 1: Gait belt Assistance 1: Contact guard Comment/Number of Steps 1: x 3 stairs. forward ascending, backstep descending. Management of IV andtelemetry lines. Short Standing rest needed with each ascending step. Outcome Measures: [facility] Basic Mobility Turning from your back to your side while in a flat bed without using bedrails: A little Moving from lying on your back to sitting on the side of a flat bed without using bedrails: A lot Moving to and from bed to chair (including a wheelchair): A little Standing up from a chair using your arms (e.g. wheelchair or bedside chair): A little To walk in hospital room: A little Climbing 3-5 steps with railing: A little Basic Mobility - Total Score: 17 FSS-ICU Ambulation: Walks >/ or equal to 50 feet with any assistance Rolling: Moderate assistance (performs 50 - 74% of task) Sitting: Supervision or set-up only Transfer [id number]: Minimal Assist (CGA from wheel chair) Transfer [id number]: Moderate assistance (performs 50 - 74% of task) Total Score: 21 Education Documentation Handouts, taught by Sarah Giles PTA at 08/20/2024 12:01 PM. Learner: Significant Other, Patient Readiness: Acceptance Method: Explanation, Demonstration Response: Verbalizes Understanding, Demonstrated Understanding Precautions, taught by Sarah Giles PTA at 08/20/2024 12:01 PM. Learner: Significant Other, Patient Readiness: Acceptance Method: Explanation, Demonstration Response: Verbalizes Understanding, Demonstrated Understanding Body Mechanics, taught by Sarah Giles PTA at 08/20/2024 12:01 PM. Learner: Significant Other, Patient Readiness: Acceptance Method: Explanation, Demonstration Response: Verbalizes Understanding, Demonstrated Understanding Home Exercise Program, taught by Sarah Giles PTA at 08/20/2024 12:01 PM. Learner: Significant Other, Patient Readiness: Acceptance Method: Explanation, Demonstration Response: Verbalizes Understanding, Demonstrated Understanding Mobility Training, taught by Sarah Giles PTA at 08/20/2024 12:01 PM. Learner: Significant Other, Patient Readiness: Acceptance Method: Explanation, Demonstration Response: Verbalizes Understanding, Demonstrated Understanding Education Comments No comments found. OP EDUCATION: Encounter Problems Encounter Problems (Active) PT Problem Patient will complete bed mobility with logroll technique, HOB flat and MOD I (Progressing) Start: 08/11/24 Expected End: 08/25/24 Patient will complete all transfers (sit to/from standing, bed to/from chair) with mod I x1 and LRAD, using safe technique. (Progressing) Start: 08/11/24 Expected End: 08/25/24 Patient will ambulate mod I to independent >500 feet in 6 minutes with stable vitals, minimal ally BLUE, and normal gait speed. (Progressing) Start: 08/11/24 Expected End: 08/25/24 Patient will ascend/descend 7 stairs with HR support +/- LRAD and SBA, with adherence to precautions and safe technique (Progressing) Start: 08/11/24 Expected End: 08/25/24 Patient will recall and adhere to MITT precautions independently with all activities. (Progressing) Start: 08/11/24 Expected End: 08/25/24 Pain - Adult Safety LTG - Patient will adhere to hip precautions during ADL's and transfers Start: 08/10/24 LTG - Patient will demonstrate safety requirements appropriate to situation/environment Start: 08/10/24 LTG - Patient will utilize safety techniques Start: 08/10/24 STG - Patient locks brakes on wheelchair Start: 08/10/24 STG - Patient uses call light consistently to request assistance with transfers Start: 08/10/24 STG - Patient uses gait belt during all transfers Start: 08/10/24 Goal 1 Start: 08/10/24 Goal 2 Start: 08/10/24 Goal 3 Start: 08/10/24 Cosigned by Judith Weber, PT at 08/20/2024 2:56 PM EST * Mark Geiger, MANAGER HOSPICE-SURGICAL ONCOLOGIST - 08/20/2024 9:15 AM EST Karla Cai is a 73 y.o. female on day 10 of admission presenting with Aneurysm of ascendingaorta without rupture ([facility]). Subjective ASHLEY reported. Recently converted to SR and has remained in SR. Denies any dizziness, SOB, CP, palpitations, n/v or abdominal discomfort, Objective Physical Exam Constitutional: General: She is not in acute distress. Appearance: She is not ill-appearing. Cardiovascular: Rate and Rhythm: Normal rate and regular rhythm. Pulses: Normal pulses. Pulmonary: Breath sounds: Normal air entry. Decreased breath sounds present. Abdominal: General: There is no distension. Palpations: Abdomen is soft. Tenderness: There is no abdominal tenderness. Musculoskeletal: General: Normal range of motion. Skin: General: Skin is warm and dry. Capillary Refill: Capillary refill takes less than 2 seconds. Comments: Sternotomy incision well approximated, stable to palpation. Neurological: General: No focal deficit present. Mental Status: She is oriented to person, place, and time. Mental status is at baseline. Psychiatric: Mood and Affect: Mood normal. Last Recorded Vitals Blood pressure 127/71, pulse 90, temperature 36.1 C (97 F), resp. rate 18, height 1.753 m (5' 9), weight 80.8 kg (178 lb 2.1 oz), SpO2 97%. Intake/Output last 3 Shifts: I/O last 3 completed shifts: In: - (0 mL/kg) Out: 2650 (32.8 mL/kg) [Urine:2650 (0.9 mL/kg/hr)] Weight: 80.8 kg Relevant Results Scheduled medications amiodarone, 400 mg, oral, BID Followed by [START ON 09/01/2024] amiodarone, 200 mg, oral, Daily apixaban, 5 mg, oral, BID aspirin, 81 mg, oral, Daily furosemide, 20 mg, intravenous, BID guaiFENesin, 1,200 mg, oral, BID magnesium sulfate, 2 g, intravenous, Once metoprolol tartrate, 25 mg, oral, BID multivitamin with minerals, 1 tablet, oral, Daily polyethylene glycol, 17 g, oral, Daily potassium chloride CR, 20 mEq, oral, BID pravastatin, 20 mg, oral, Nightly [Held by provider] sennosides-docusate sodium, 2 tablet, oral, BID Continuous medications PRN medications PRN medications: acetaminophen, ipratropium-albuteroL, [DISCONTINUED] ondansetron ODT OR ondansetron, oxyCODONE, oxygen, simethicone, traZODone Results for orders placed or performed during the hospital encounter of 08/10/24 (from the past 24 hours) POCT GLUCOSE Result Value Ref Range POCT Glucose 137 (H) 74 - 99 mg/dL POCT GLUCOSE Result Value Ref Range POCT Glucose 121 (H) 74 - 99 mg/dL Renal Function Panel Result Value Ref Range Glucose 142 (H) 74 - 99 mg/dL Sodium 137 136 - 145 mmol/L Potassium 4.6 3.5 - 5.3 mmol/L Chloride 106 98 - 107 mmol/L Bicarbonate 23 21 - 32 mmol/L Anion Gap 13 10 - 20 mmol/L Urea Nitrogen 36 (H) 6 - 23 mg/dL Creatinine 0.97 0.50 - 1.05 mg/dL eGFR 61 >60 mL/min/1.73m*2 Calcium 8.3 (L) 8.6 - 10.3 mg/dL Phosphorus 3.6 2.5 - 4.9 mg/dL Albumin 3.0 (L) 3.4 - 5.0 g/dL Lavender Top Result Value Ref Range Extra Tube Hold for add-ons. Magnesium Result Value Ref Range Magnesium 2.16 1.60 - 2.40 mg/dL POCT GLUCOSE Result Value Ref Range POCT Glucose 140 (H) 74 - 99 mg/dL Electrocardiogram 12-lead PRN ACS symptoms Result Date: 08/20/2024 Atrial fibrillation with rapid ventricular response with premature ventricular or aberrantly conducted complexes Nonspecific intraventricular block Cannot rule out Septal infarct (cited on or before 14-AUG-2024) Possible Lateral infarct (cited on or before 14-AUG-2024) T wave abnormality, consider inferior ischemia or digitalis effect Abnormal ECG When compared with ECG of 14-AUG-2024 05:29, Significant changes have occurred XR chest 1 view Result Date: 08/19/2024 Interpreted By: Fernanda Lambert, STUDY: XR CHEST 1 VIEW; 08/19/2024 12:15 pm INDICATION: Signs/Symptoms:s/p thoracentesis. COMPARISON: 08/18/2024 ACCESSION NUMBER(S): [id number] ORDERING CLINICIAN: EH MCKEON FINDINGS: Artifact from overlying monitoring leads noted. Hazy bibasilar opacities with blunting of the left costophrenic angle again seen. No definite pneumothorax. The cardiomediastinal silhouette remains enlarged with overlying sternotomy wires and atrial closure device again seen. Persistent bibasilar infiltrates and/or pleural effusions. No definite pneumothorax. MACRO: None. Signed by: Fernanda Lambert 08/19/2024 12:17 PM Dictation workstation: [id number] US thoracentesis Result Date: 08/18/2024 Interpreted By: Pee Tavares, STUDY: US [id number] pm INDICATION: Signs/Symptoms:worsening left pleural effusion COMPARISON: Chest Xray 08/18/2024 ACCESSION NUMBER(S): [id number] ORDERING CLINICIAN: EH MCKEON TECHNIQUE: INTERVENTIONALIST(S): Pee Tavares CONSENT: The patie nt/patient's POA/next of kin was informed of the nature of the proposed procedure. The purposes, alternatives, risks, and benefits were explained and discussed. All questions were answered and consent was obtained. SEDATION: None MEDICATION/CONTRAST: 1% lidocaine was used to anesthetize subcutaneously. TIME OUT: A time out was performed immediately prior to procedure start with the interventionalteam, correctly identifying the patient name, date of , MRN, procedure, anatomy (including marking of site and side), patient position, procedure consent form, relevant laboratory and imaging test results, antibiotic administration, safety precautions, and procedure-specific equipment needs. FI NDINGS: The patient was placed in the sitting position. The pleural space was examined with selby scale ultrasound, and the most accessible fluid identified and marked for thoracentesis. The skin was prepped and draped in usual manner. Local anesthesia with lidocaine was administered and a left-sided thoracentesis was performed. A 5 Belgian One-Step Valved thoracentesis needle/catheter was then placed where marked. Approximately 850 mL of Tory colored fluid was removed. The needle/catheter was then withdrawn. The patient tolerated the procedure well and there were no immediate complications. Uneventful thoracentesis, as detailed above. Left pleural space, 850 mL I personally performed and/or directly supervised this study and was present for the entire procedure. Performed and dictated at [facility]. Signed by: Pee Tavares 08/18/2024 4:08 PM Dictation w orkstation: [id number] XR chest 1 view Result Date: 08/18/2024 Interpreted By: Rob Hussein, STUDY: XR CHEST 1 VIEW; 08/18/2024 3:17 pm INDICATION: Signs/Symptoms:post thora. COMPARISON: Chest x-ray from 08/18/2024 at 11:52 a.m. ACCESSION NUMBER(S): [id number] ORDERING CLINICIAN: PEE TAVARES TECHNIQUE: Single AP portable view of the chest was obtained. FINDINGS: MEDIASTINUM/ LUNGS/ CRISTHIAN: Status post interval left-sided thoracentesis. Previous heart surgery. Stable cardiomegaly without vascular congestion. There is mild hazy opacity at the medial right base, unchanged. Decrease in pleural and parenchymal opacities at the left base. No pneumothorax. Notracheal deviation. No abnormal hilar fullness or gross mass on either side. BONES: No lytic or blastic destructive bone lesion. UPPER ABDOMEN: Grossly intact. Status post left-sided thoracentesis. No pneumothorax. Mild residual pleural and parenchymal opacities at the left base, improved. Mild stable infiltrate versus atelectasis at the medial right lung base. Previous heart surgery. Stable cardiomegaly. MACRO: None Signed by: Rob Hussein 08/18/2024 3:37 PM Dictation workstation: [id number] XR chest 2 views Result Date: 08/18/2024 Interpreted By: Elisabet Borges, STUDY: XR CHEST 2 VIEWS; 08/18/2024 11:39 am INDICATION: Signs/Symptoms:follow pleural effusion. COMPARISON: 08/17/2024 ACCESSION NUMBER(S): [id number] ORDERING CLINICIAN: EH MCKEON FINDINGS: Sternotomy wires and atrial closure device is again seen. Bilateralpleural effusions are noted, left greater than right. The heart is probably enlarged though difficult to tell due to the large left pleural effusion. No pneumothorax is seen. Cardiomegaly. Bilateral pleural effusions, left greater than right. Underlying infiltrates or atelectasis can not be excluded. MACRO: None Signed by: Elisabet Borges 08/18/2024 11:54 AM Dictation workstation: [id number] Assessment/Plan Assessment & Plan Aneurysm of ascending aorta without rupture (CMS-HCC) Acute respiratory distress syndrome (ARDS) (Multi) 73 y.o. F PMHx of Ascending aortic aneurysm with mild AI, breast CA, CKD II, pre-DM, diverticulitis, GERD, HLD, and HTN now s/p ascending Ao replacement (Gelweave), LAAC (45mm Atriclip), and pericardial window 08/10/[address] Galloway. Neuro: # expected Acute postop pain well controlled - Serial neuro and pain assessments - Analgesia: PRN Tylenol pain level & Oxy 5mg for breakthrough - PT/OT/MITT - ambulate in caba - Olopatadine eye gtts as needed - Trazodone for Sleep CV: # H/O HTN, HLD # Asc Ao aneurysm s/p Asc Ao replacement with LAAC 08/[address] Galloway. # Normal biV pre and post CPB,:08/12 TTE ef 49%reduced RV/lg left pleural effusion/ mild MR # new LBBB # Vasodilatory hypotension resolved # Post op Afib RVR->NSR-> Accelerated junctional- > NSR-> Afib --> reconversion to SR #Epicardial wires capped - Continue Amiodarone load orally - Cut EP wires prior to discharge - Continue ASA, statin - Metoprolol 25 mg bid titrate as HDs permit - Hold home irbesartan, spironolactone for now - Continue Lasix BID Pulm: # Acute hypoxic respiratory failure moderate ARDS P/F ratio 162 requiring Airvo- resolved #Acute hypoxic respiratory insufficiency 2/2 increased Left pleural effusion 08/18 2 view cxr increased Left pleural effusion s/p Left thoracenthesis this (850cc serous fluid drained) - Wean FiO2 to SpO2 > 90% - Aggressive bronchopulmonary hygiene and enc cough and deep breating - Duoneb prn - Home O2 eval GI: Poor po Intake- improving , +BM,+flatus # H/O Diverticulitis - Regular Diet - Continue 1500ml FR - Bowel regimen- PRN - Gas X - GI ppx: not indicated /Renal Total body fluid overload --> Net + 4L and weight 80Kg from 77kg at admit. # H/O Stage II CKD (baseline Cr 0.9) - RFP daily, replete lytes per protocol - I&O - discussed hat front & back of toliet - Potassium with lasix Heme/Onc: # Acute blood loss anemia, zoie-op coagulopathy. POD#2 S/P 2 units prbc # Hx breast CA s/p lumpectomy and XRT - CBC daily and as needed - DVTppx: SCDs, Lovenox - MVI Endo: Pre DM with last A1c 5.9 - Check daily with AM labs - Maintain BG < 180. Hypoglycemia protocol ID: afebrile Leukocytosis resolved; MRSA screen negative - Trend temp, WBCs - Periop abx cefaz x 48 hrs completed Dispo: likely DC home tomorrow pending O2 status and heart rhythm. Discussed with Dr. Galloway I spent 60 minutes in the professional and overall care of this patient. Mark Geiger APRN-TYRA * Odette Tracey OT - 08/19/2024 4:08 PM EST Occupational Therapy OT Treatment Patient Name: Karla Cai Department: [facility] [id number] ICU Room: [address] [place], [place] [address] Today's Date: 08/19/2024 Time Calculation Start Time: 1331 Stop Time: 1356 Time Calculation (min): 25 min Assessment: OT Assessment: Pt declining ambulation. pt sat in chair to complete ADLs and educated in energy conservation strategies during ADLs upon d/c home. Pt's HR was 100-120 during seated activites, RN aware and notified. Sit<>stand with SUP and VC's Pt stating she recently completed ambulation requiring a rest break. Prognosis: Good Evaluation/Treatment Tolerance: Patient tolerated treatment well Medical Staff Made Aware: Yes End of Session Communication: Bedside nurse, Physician End of Session Patient Position: Up in chair, Alarm off, not on at start of session OT Assessment Results: Decreased ADL status, Decreased endurance, Decreased functional mobility Prognosis: Good Evaluation/Treatment Tolerance: Patient tolerated treatment well Medical Staff Made Aware: Yes Strengths: Ability to acquire knowledge, Access to adaptive/assistive products, Attitude of self, Capable of completing ADLs semi/independent Barriers to Participation: Comorbidities Plan: Treatment Interventions: ADL retraining, Functional transfer training, UE strengthening/ROM, Endurance training, Compensatory technique education OT Frequency: 3 times per week OT Discharge Recommendations: Moderate intensity level of continued care Equipment Recommended upon Discharge: Wheeled walker OT Recommended Transfer Status: Assist of 1 OT - OK to Discharge: Yes Treatment Interventions: ADL retraining, Functional transfer training, UE strengthening/ROM, Endurance training, Compensatory technique education Subjective Previous Visit Info: OT Last Visit OT Received On: 08/19/24 General: General Reason for Referral: POD #8 s/p ascending aorta repair with LAAC Referred By: DO Ranjan Past Medical History Relevant to Rehab: Past Medical History: Diagnosis Date Allergic rhinitis Aortic regurgitation Arthritis bilateral feet Ascending aortic aneurysm (CMS-HCC) Breast cancer (Multi) 2010 s/p lumpectomy,radiation and tamoxifen CKD (chronic kidney disease) stage 2 Diverticulitis no issues since 2019 DM (diabetes mellitus) (Multi) diet controlled GERD (gastroesophageal reflux disease) occasional symptoms HLD (hyperlipidemia) Hypertension Hypokalemia Kidney cyst, acquired Mitral regurgitation Osteopenia Tricuspid regurgitation Prior to Session Communication: Bedside nurse Patient Position Received: Up in chair, Alarm off, not on at start of session Preferred Learning Style: auditory, kinesthetic, visual General Comment: Pt agreeable to OT Precautions: Medical Precautions: Cardiac precautions, Oxygen therapy device and L/min Post-Surgical Precautions: Move in the Tube Precautions Comment: pt requiring review of MITT Pain: Pain Assessment Pain Assessment: 0-10 0-10 (Numeric) Pain Score: 0 - No pain Objective Cognition: Cognition Orientation Level: Oriented X4 Activities of Daily Living: Grooming Grooming Level of Assistance: Setup Grooming Where Assessed: Chair Grooming Comments: pt brushed her teeth in the chair, HR: 100-120, RN notified LE Dressing LE Dressing: Yes LE Dressing Comments: pt able to do figure-4 to don socks seated in chair Bed Mobility/Transfers: Transfers Transfer: Yes Transfer 1 Technique 1: Sit to stand, Stand to sit Transfer Device 1: Walker Transfer Level of Assistance 1: Close supervision Trials/Comments 1: good balance, cues for hand placement upon sit/stand Outcome Measures:[facility] Daily Activity Putting on and taking off regular lower body clothing: A little Bathing (including washing, rinsing, drying): A lot Putting on and taking off regular upper body clothing: A little Toileting, which includes using toilet, bedpan or urinal: A little Taking care of personal grooming such as brushing teeth: A little Eating Meals: None Daily Activity - Total Score: 18 Education Documentation Handouts, taught by Odette Tracey OT at 08/19/2024 4:06 PM. Learner: Family, Patient Readiness: Acceptance Method: Explanation, Demonstration Response: Verbalizes Understanding, Demonstrated Understanding, Needs Reinforcement Precautions, taught by Odette Tracey OT at 08/19/2024 4:06 PM. Learner: Family, Patient Readiness: Acceptance Method: Explanation, Demonstration Response: Verbalizes Understanding, Demonstrated Understanding, Needs Reinforcement ADL Training, taught by Odette Tracey OT at 08/19/2024 4:06 PM. Learner: Family, Patient Readiness: Acceptance Method: Explanation, Demonstration Response: Verbalizes Understanding, Demonstrated Understanding, Needs Reinforcement Education Comments No comments found. Goals: Encounter Problems Encounter Problems (Active) ADLs Patient will perform UB and LB bathing with independent level of assistance. (Progressing) Start: 08/11/24 Expected End: 08/25/24 Patient with complete upper body dressing with independent level of assistance donning and doffing all UE clothes with no adaptive equipment while edge of bed (Progressing) Start: 08/11/24 Expected End: 08/25/24 Patient with complete lower body dressing with independent level of assistance donning and doffing all LE clothes with no adaptive equipment while standing (Progressing) Start: 08/11/24 Expected End: 08/25/24 Patient will complete daily grooming tasks brushing teeth and washing face/hair with independent level of assistance and PRN adaptive equipment while standing. (Progressing) Start: 08/11/24 Expected End: 08/25/24 Patient will complete toileting including hygiene clothing management/hygiene with independent level of assistance and raised toilet seat. (Progressing) Start: 08/11/24 Expected End: 08/25/24 BALANCE Pt will maintain dynamic standing balance during ADL task with independent level of assistance in order to demonstrate decreased risk of falling and improved postural control. (Not Progressing) Start: 08/11/24 Expected End: 08/25/24 TRANSFERS Patient will perform bed mobility independent level of assistance and bed rails in order to improvesafety and independence with mobility (Progressing) Start: 08/11/24 Expected End: 08/25/24 Patient will complete functional transfer to all surfaces with least restrictive device with independent level of assistance. (Progressing) Start: 08/11/24 Expected End: 08/25/24 * Sarah Giles PTA - 08/19/2024 4:05 PM EST Images from the original note were not included. Physical Therapy Physical Therapy Treatment Patient Name: Karla Cai Department: [place] [id number] ICU Room: [address] [place] [address] Today's Date: 08/19/2024 Time Calculation Start Time: 1504 Stop Time: 1521 Time Calculation (min): 17 min Assessment/Plan PT Assessment PT Assessment Results: Decreased strength, Decreased endurance, Impaired balance, Decreased mobility, Pain Rehab Prognosis: Good Barriers to Discharge: ongoing medical and PT needs Evaluation/Treatment Tolerance: Treatment limited secondary to medical complications (Comment) Medical Staff Made Aware: Yes Strengths: Ability to acquire knowledge, Support and attitude of living partners Barriers to Participation: (today - Low BP and increased HR.) End of Session Communication: Bedside nurse Assessment Comment: Pt limited by dizziness with standing activity today. Increased HR and decreased BP. BRICK OFF BEARER limiting activites this date. End of Session Patient Position: Up in chair, Alarm off, not on at start of session PT Plan Inpatient/Swing Bed or Outpatient: Inpatient PT Plan Treatment/Interventions: Gait training, Transfer training PT Plan: Ongoing PT PT Frequency: 3 times per week PT Discharge Recommendations: Low intensity level of continued care Equipment Recommended upon Discharge: Wheeled walker PT Recommended Transfer Status: Stand by assist, Assistive device PT - OK to Discharge: Yes (per PT POC) General Visit Information: PT Visit PT Received On: 08/19/24 General Reason for Referral: POD #9 s/p ascending aorta repair with LAAC Referred By: Pack, DO Family/Caregiver Present: Yes Caregiver Feedback: Dominic extremely supportive of patient Prior to Session Communication: Bedside nurse Patient Position Received: Up in chair, Alarm off, not on at start of session Preferred Learning Style: auditory, kinesthetic, visual General Comment: RN reporting - BRICK OFF BEARER voiding stair negotiation today due to increased heart rate. Ok to trial ambulation. Subjective Precautions: Precautions Medical Precautions: Cardiac precautions, Oxygen therapy device and L/min Post-Surgical Precautions: Move in the Tube Vital Signs (Past 2hrs) Date/Time Vitals Session Patient Position Pulse Resp SpO2 BP MAP (mmHg) 08/19/24 1504 -- -- 123 -- 95 % -- -- 08/19/24 1518 -- -- 113 -- 96 % 104/71 81 08/19/24 1526 -- -- 97 -- 93 % -- -- Objective Pain: Pain Assessment Pain Assessment: 0-10 0-10 (Numeric) Pain Score: 2 Cognition: Cognition Orientation Level: Oriented X4 Coordination: Movements are Fluid and Coordinated: Yes Postural Control: Postural Control Postural Control: Within Functional Limits Static Sitting Balance Static Sitting-Balance Support: Bilateral upper extremity supported, Feet supported Static Sitting-Level of Assistance: Close supervision Dynamic Sitting Balance Dynamic Sitting-Balance Support: Bilateral upper extremity supported, Feet supported Dynamic Sitting-Level of Assistance: Contact guard, Close supervision Dynamic Sitting-Balance: Reaching for objects, Trunk control activities, Forward lean, Lateral lean Static Standing Balance Static Standing-Balance Support: Bilateral upper extremity supported Static Standing-Level of Assistance: Contact guard Static Standing-Comment/Number of Minutes: WW support Dynamic Standing Balance Dynamic Standing-Balance Support: Bilateral upper extremity supported Dynamic Standing-Level of Assistance: Contact guard Dynamic Standing-Balance: Turning Dynamic Standing-Comments: WW support Activity Tolerance: Activity Tolerance Endurance: Tolerates less than 10 min exercise with changes in vital signs Treatments: Ambulation/Gait Training Ambulation/Gait Training Performed: Yes Ambulation/Gait Training 1 Surface 1: Level tile Device 1: Rolling walker Gait Support Devices: Gait belt Assistance 1: Contact guard, Close supervision Quality of Gait 1: Decreased step length, Antalgic Comments/Distance (ft) 1: 46 ft. Pt becoming light headed, BP dropping and returned to chair. Vitals taken. Transfers Transfer: Yes Transfer 1 Transfer From 1: Chair with arms to Transfer to 1: Chair with arms Technique 1: Sit to stand, Stand to sit Transfer Device 1: Gait belt (nejohnie walker.) Transfer Level of Assistance 1: Close supervision (pt maintaining MITT precautions.) Outcome Measures: [facility] Basic Mobility Turning from your back to your side while in a flat bed without using bedrails: A little Moving from lying on your back to sitting on the side of a flat bed without using bedrails: A lot Moving to and from bed to chair (including a wheelchair): A little Standing up from a chair using your arms (e.g. wheelchair or bedside chair): A little To walk in hospital room: A little Climbing 3-5 steps with railing: Total Basic Mobility - Total Score: 15 FSS-ICU Ambulation: Walks >/ or equal to 150 feet with supervision Rolling: Moderate assistance (performs 50 - 74% of task) Sitting: Supervision or set-up only Transfer Auk-ad-Dkqhz: Supervision or set-up only Transfer Hevjnw-aa-Xnx: Moderate assistance (performs 50 - 74% of task) Total Score: 21 Education Documentation Handouts, taught by Sarah Giles PTA at 08/19/2024 4:02 PM. Learner: Significant Other, Patient Readiness: Acceptance Method: Explanation, Demonstration Response: Verbalizes Understanding Precautions, taught by Sarah Giles PTA at 08/19/2024 4:02 PM. Learner: Significant Other, Patient Readiness: Acceptance Method: Explanation, Demonstration Response: Verbalizes Understanding Body Mechanics, taught by Sarah Giles PTA at 08/19/2024 4:02 PM. Learner: Significant Other, Patient Readiness: Acceptance Method: Explanation, Demonstration Response: Verbalizes Understanding Home Exercise Program, taught by Sarah Giles PTA at 08/19/2024 4:02 PM. Learner: Significant Other, Patient Readiness: Acceptance Method: Explanation, Demonstration Response: Verbalizes Understanding Mobility Training, taught by Sarah Giles PTA at 08/19/2024 4:02 PM. Learner: Significant Other, Patient Readiness: Acceptance Method: Explanation, Demonstration Response: Verbalizes Understanding Education Comments No comments found. OP EDUCATION: Encounter Problems Encounter Problems (Active) PT Problem Patient will complete bed mobility with logroll technique, HOB flat and MOD I (Progressing) Start: 08/11/24 Expected End: 08/25/24 Patient will complete all transfers (sit to/from standing, bed to/from chair) with mod I x1 and LRAD, using safe technique. (Progressing) Start: 08/11/24 Expected End: 08/25/24 Patient will ambulate mod I to independent >500 feet in 6 minutes with stable vitals, minimal ally BLUE, and normal gait speed. (Not Progressing) Start: 08/11/24 Expected End: 08/25/24 Patient will ascend/descend 7 stairs with HR support +/- LRAD and SBA, with adherence to precautions and safe technique (Not Progressing) Start: 08/11/24 Expected End: 08/25/24 Patient will recall and adhere to MITT precautions independently with all activities. (Progressing) Start: 08/11/24 Expected End: 08/25/24 Pain - Adult Safety LTG - Patient will adhere to hip precautions during ADL's and transfers Start: 08/10/24 LTG - Patient will demonstrate safety requirements appropriate to situation/environment Start: 08/10/24 LTG - Patient will utilize safety techniques Start: 08/10/24 STG - Patient locks brakes on wheelchair Start: 08/10/24 STG - Patient uses call light consistently to request assistance with transfers Start: 08/10/24 STG - Patient uses gait belt during all transfers Start: 08/10/24 Goal 1 Start: 08/10/24 Goal 2 Start: 08/10/24 Goal 3 Start: 08/10/24 Cosigned by Sanchez Whitfield PT at 08/19/2024 4:38 PM EST * Eh Mckeon, MANAGER HOSPICE-SURGICAL ONCOLOGIST - 08/19/2024 11:59 AM EST Karla Cai is a 73 y.o. female on day 9 of admission presenting with Aneurysm of ascending aorta without rupture ([facility]-HCC) Subjective Afib 120's over night received Amio bolus x2 started on Oral load Objective Physical Exam Physical Exam Constitutional: Comments: Weak but improving Neck: Comments: RIJ CVC site dressing C/D/I Cardiovascular: Rate and Rhythm: Irregular rate and rhythm- Afib 90-120's Pulses: Normal pulses. Comments: MSI stable w/o click, well approximated w/o drainage or hematoma EP wires capped Pulmonary: Effort: No respiratory distress. Breath sounds: No stridor. Rhonchi present. Comments: Weak productive cough 1-2L NC CT site dressing c/d/i Abdominal: Palpations: Abdomen is soft. Comments: +BM,+Flatus Musculoskeletal: General: No swelling. Skin: General: Skin is warm and dry. Neurological: General: No focal deficit present. Mental Status: She is alert and oriented to person, place, and time. Psychiatric: Mood and Affect: Mood normal. Behavior: Behavior normal. Thought Content: Thought content normal. Judgment: Judgment normal. Review of Systems Denies chest pain, palpations, light headedness, dizziness sob, n/v fever, chills Last Recorded Vitals Blood pressure 125/77, pulse (!) 121, temperature 36 C (96.8 F), temperature source Temporal, resp.rate 18, height 1.753 m (5' 9), weight 82.4 kg (181 lb 10.5 oz), SpO2 93%. Intake/Output Last 3 Shifts I/O last 3 completed shifts: In: 200 (2.4 mL/kg) [P.O.:200] Out: 1800 (21.8 mL/kg) [Urine:1800 (0.6 mL/kg/hr)] Weight: 82.4 kg Lines Recent Labs CMP: Results from last 7 days Lab Units 08/19/24 0508 08/18/24 0529 08/17/24 0523 08/16/24 0529 08/15/24 0526 08/14/24 0510 08/13/24 0514 08/12/242001 SODIUM mmol/L 139 139 135* 132* 134* 130* 130* 132* POTASSIUM mmol/L 4.0 4.2 3.9 4.0 4.4 3.6 4.0 4.0 CHLORIDE mmol/L 107 106 103 102 101 100 101 102 CO2 mmol/L 24 25 23 22 25 22 21 21 ANION GAP mmol/L 12 12 13 12 12 12 12 13 BUN mg/dL 33* 35* 38* 40* 41* 39* 37* 34* CREATININE mg/dL 0.81 0.79 0.83 0.81 0.86 0.79 0.88 0.92 EGFR mL/min/1.73m*2 76 79 74 76 71 79 69 65 MAGNESIUM mg/dL 1.91 2.08 2.22 2.34 2.37 2.22 -- 2.90* ALBUMIN g/dL 2.7* 3.0* 3.0* 3.0* 3.2* 3.1* 3.4 3.4 CBC: Results from last 7 days Lab Units 08/19/24 0508 08/18/24 0529 08/17/24 0523 08/16/24 0528 08/15/24 0526 08/14/24 0510 08/13/24 0514 08/12/24 1812 WBC AUTO x10*3/uL 11.8* 11.5* 11.9* 10.2 10.3 11.9* 17.1* 19.2* 19.2* HEMOGLOBIN g/dL 9.0* 8.9* 8.4* 8.5* 8.7* 9.0* 9.9* 10.3* 10.3* HEMATOCRIT % 27.6* 27.8* 25.5* 25.2* 26.6* 24.9* 28.0* 30.2* 30.2* PLATELETS AUTO x10*3/uL 433 409 342 287 283 224 247 237 237 MCV fL 94 91 92 90 91 83 87 88 88 COAG: Results from last 7 days Lab Units 08/12/24 1654 INR 1.5* HEME/ENDO: CARDIAC: Imaging XR chest 1 view Final Result Status post left-sided thoracentesis. No pneumothorax. Mild residual pleural and parenchymal opacities at the left base, improved. Mild stable infiltrate versus atelectasis at the medial right lung base. Previous heart surgery. Stable cardiomegaly. MACRO: None Signed by: Rob Hussein 08/18/2024 3:37 PM Dictation workstation: [id number] US thoracentesis Final Result Uneventful thoracentesis, as detailed above. Left pleural space, 850 mL I personally performed and/or directly supervised this study and was present for the entire procedure. Performed and dictated at [facility]. Signed by: Pee Tavares 08/18/2024 4:08 PM Dictation workstation: [id number] XR chest 2 views Final Result Cardiomegaly. Bilateral pleural effusions, left greater than right. Underlying infiltrates or atelectasis can not be excluded. MACRO: None Signed by: Elisabet Borges 08/18/2024 11:54 AM Dictation workstation: [id number] XR chest 2 views Final Result Interval removal of support devices. Status post sternotomy. Xdpz-gwlwxjx-zudq-right basilar infiltrates and/or pleural effusions. MACRO: None. Signed by: Fernanda Lambert 08/17/2024 11:22 AM Dictation workstation: [id number] XR chest 1 view Final Result 1. Patchy bibasilar opacities may represent atelectasis, edema, aspiration, or infection. 2. Small left pleural effusion. MACRO: None Signed by: Lenard Munguia 08/14/2024 8:07 AM Dictation workstation: [id number] XR chest 1 view Final Result 1. Near-total resolution of the right apical pneumothorax with question of tiny residual. 2. Persistent left basilar effusion and infiltrate for which continued follow-up recommended. Question subtle right basilar infiltrate. MACRO: None Signed by: Chirag Ortega 08/13/2024 8:06 AM Dictation workstation: [id number] XR chest 1 view Final Result 1. Stable exam. Small right apical pneumothorax. MACRO: None Signed by: Lenard Munguia 08/12/2024 6:05 PM Dictation workstation: [id number] Transthoracic Echo (TTE) Limited Final Result XR chest 1 view Final Result Recent heart surgery. Stable right IJ vein catheter and bibasilar chest tubes. Decrease in size of now tiny right apical pneumothorax. Stable pleural and parenchymal opacities at the left base. Stable atelectasis at the medial right lung base. Cardiomegaly. MACRO: None Signed by: Rob Hussein 08/12/2024 8:04 AM Dictation workstation: [id number] XR chest 1 view Final Result Recent heart surgery. ET tube and NG [...] Rob Hussein 08/11/2024 8:18 AM Dictation workstation: [id number] XR chest 1 view Final Result Status post sternotomy with multiple support devices in place as above. Questionable small left apical pneumothorax. Yywy-iarxyvx-srqc-right basilar infiltrates or atelectasis. MACRO: None. Signed by: Fernanda Lambert 08/10/2024 2:44 PM Dictation workstation: [id number] Anesthesia Intraoperative Transesophageal Echocardiogram Final Result Medications Scheduled medications amiodarone, 400 mg, oral, BID Followed by [START ON 09/01/2024] amiodarone, 200 mg, oral, Daily aspirin, 81 mg, oral, Daily enoxaparin, 40 mg, subcutaneous, q24h KEYANNA furosemide, 20 mg, intravenous, q12h guaiFENesin, 1,200 mg, oral, BID metoprolol tartrate, 25 mg, oral, BID multivitamin with minerals, 1 tablet, oral, Daily polyethylene glycol, 17 g, oral, Daily potassium chloride CR, 20 mEq, oral, BID pravastatin, 20 mg, oral, Nightly [Held by provider] sennosides-docusate sodium, 2 tablet, oral, BID Continuous medications PRN medications PRN medications: acetaminophen, ipratropium-albuteroL, [DISCONTINUED] ondansetron ODT OR ondansetron, oxyCODONE, oxygen, simethicone, traZODone Assessment/Plan Assessment & Plan Aneurysm of ascending aorta without rupture (CMS-HCC) Acute respiratory distress syndrome (ARDS) (Multi) 73 y.o. F PMHx of Ascending aortic aneurysm with mild AI, breast CA, CKD II, pre-DM, diverticulitis, GERD, HLD, and HTN now s/p ascending Ao replacement (Gelweave), LAAC (45mm Atriclip), and pericardial window 08/10/[address] Galloway. Neuro: # expected Acute postop pain well controlled - Serial neuro and pain assessments - Analgesia: PRN Tylenol pain level & Oxy 5mg for breakthrough - PT/OT/MITT - ambulate in caba - Olopatadine eye gtts as needed - Trazodone for Sleep CV: # Asc Ao aneurysm s/p Asc Ao replacement with LAAC 08/[address] Galloway. # Normal biV pre and post CPB,:08/12 TTE ef 49%reduced RV/lg left pleural effusion/ mild MR # new LBBB # H/O HTN, HLD # Vasodilatory hypotension resolved # Post op Afib RVR->NSR-> Accelerated junctional- > NSR-> Afib (08/19@ 0015) rate controlled #Epicardial wires capped - Amio IV bolus x2-> Amio oral load - Cut EP wires prior to discharge - Continue ASA, statin - Metoprolol 25 mg bid titrate as HDs permit - Hold home irbesartan, spironolactone for now Pulm: # expected atelectasis -RA SpO2 >92% # Acute hypoxic respiratory failure moderate ARDS P/F ratio 162 requiring Airvo- resolved #Acute hypoxic respiratory insufficiency 2/2 increased Left pleural effusion 08/18 2 view cxr increased Left pleural effusion s/p Left thoracenthesis this afternoon (850cc serous fluid drained) - Chest tubes removed POD#4 - Wean FiO2 to SpO2 > 90% - BPH/ Mucinex bid - Duoneb prn - Home O2 eval - Repeat CXR today GI: Poor po Intake- improving , +BM,+flatus # H/O Diverticulitis # LLQ intermittent abd pain- resolved - Regular Diet add fluid restriction - DC Mitchel per patient request, Ensure - Bowel regimen- PRN - Gas X - GI ppx: not indicated /Renal: Voiding - I/Os: since admission +8L/ last 24 hours -1395L (inaccurate missing hat); wt 82.9 today (08/16 85 ; preop 77kg) # expected post op fluid overload # H/O Stage II CKD (baseline Cr 0.9) - RFP daily, replete lytes per protocol - I&O - discussed hat front & back of toliet - Lasix 20 mg IV bid scheduled - K dur 40meq this am then 20meq bid Heme/Onc: # Acute blood loss anemia, zoie-op coagulopathy. POD#2 S/P 2 units prbc # Hx breast CA s/p lumpectomy and XRT - CBC daily and as needed - DVTppx: SCDs, Lovenox - MVI Endo: Pre DM with last A1c 5.9 - Check daily with AM labs - Maintain BG < 180. Hypoglycemia protocol ID: afebrile Leukocytosis resolved; MRSA screen negative - Trend temp, WBCs - Periop abx cefaz x [address] Galloway, patient and updated and agree with plan Seen with Dr Yissel Castellanos during bedside rounds Dispo: Maintain SDU d/t Afib if remains afib will require AC, Hopefully home with [facility] in the next few days pending SR or Rate control x 24 hours Time spent on the assessment of patient, gathering and interpreting data, review of medical record/patient history, personally reviewing radiographic imaging and formulation of this note. With greater than 50% spent in personal discussion with patient/ family. Time:50 minutes JESSE Wilks * Paul Hodgson RN - 08/19/2024 7:24 AM EST 08/19/24723 Discharge Planning Expected Discharge Disposition Home H POD 9 AA replacement. ARDS post op, now on 1L NC. Thoracentesis yesterday. Current dc plan home with [facility] once medically stable. * Jessy Hernández, PT - 08/18/2024 6:17 PM EST Physical Therapy Physical Therapy Treatment Patient Name: Karla Cai Department: [place] [id number] ICU Room: [address] [place] [address] Today's Date: 08/18/2024 Time Calculation Start Time: 1342 Stop Time: 1421 Time Calculation (min): 39 min Assessment/Plan PT Assessment PT Assessment Results: Decreased strength, Decreased endurance, Impaired balance, Decreased mobility, Pain Rehab Prognosis: Good Barriers to Discharge: ongoing medical and PT needs Evaluation/Treatment Tolerance: Patient limited by fatigue, Patient tolerated treatment well (demonstrated signficant improvements in overall activity tolerance) Medical Staff Made Aware: Yes Strengths: Ability to acquire knowledge, Access to adaptive/assistive products, Attitude of self, Coping skills, Insight into problems, Premorbid level of function, Rehab experience, Support and attitude of living partners Barriers to Participation: Comorbidities, Housing layout End of Session Communication: Bedside nurse, Physician (Padmini Soto, EDWARD-SURGICAL ONCOLOGIST rounding with Dr. Proctor following mobility, aware of pt's performance and plan for stair training at another session.) Assessment Comment: Patient is POD #8 s/p ascending aorta repair with current L pleural effusion. Patient seen for follow up visit today, demonstrated improving ease of transfers and gait with decreased hands on assistance provided. Required ongoing cues/instruction for problem solving mobility impairments, however pt is very motivated to continually progress with each subsequent visit from this author and other therapy staff. Anticipate stair negotation with instruction to be completed at subsequent PT session, especially as pt pending L thoracocentesis and (+) BLUE symptomatic with ambulating on level surface. She will benefit from LOW intensity PT at time of medical DC to maximize her inde pendence, safety and well-being. End of Session Patient Position: Up in chair, Alarm off, not on at start of session (d/w RN) PT Plan Inpatient/Swing Bed or Outpatient: Inpatient PT Plan Treatment/Interventions: Bed mobility, Transfer training, Gait training, Stair training, Balance training, Strengthening, Endurance training, Therapeutic activity, Home exercise program, Positioning,Postural re-education PT Plan: Ongoing PT PT Frequency: 3 times per week PT Discharge Recommendations: Low intensity level of continued care Equipment Recommended upon Discharge: Wheeled walker PT Recommended Transfer Status: Stand by assist, Assistive device PT - OK to Discharge: Yes General Visit Information: PT Visit PT Received On: 08/18/24 Response to Previous Treatment: Patient with no complaints from previous session. General Reason for Referral: POD #8 s/p ascending aorta repair with LAAC Referred By: DO Ranjan Past Medical History Relevant to Rehab: Past Medical History: Diagnosis Date Allergic rhinitis Aortic regurgitation Arthritis bilateral feet Ascending aortic aneurysm (CMS-HCC) Breast cancer (Multi) 2010 s/p lumpectomy,radiation and tamoxifen CKD (chronic kidney disease) stage 2 Diverticulitis no issues since 2019 DM (diabetes mellitus) (Multi) diet controlled GERD (gastroesophageal reflux disease) occasional symptoms HLD (hyperlipidemia) Hypertension Hypokalemia Kidney cyst, acquired Mitral regurgitation Osteopenia Tricuspid regurgitation Family/Caregiver Present: Yes Caregiver Feedback: Dominic extremely supportive of patient Prior to Session Communication: Bedside nurse Patient Position Received: Up in chair, Alarm off, not on at start of session Preferred Learning Style: auditory, kinesthetic, visual General Comment: patient remains on 1LO2 NC, tele, PIV heplocked. L thoracocentesis planned for this afternoon 2/2 L pleural effusion Subjective Precautions: Precautions Medical Precautions: Cardiac precautions, Oxygen therapy device and L/min Post-Surgical Precautions: Move in the Tube Precautions Comment: patient engaged in situational awareness of MITT precautions with relationshipto her mobility and daily activities. discussed with this author throughout session along with recommendations to keep movement in the tube Vital Signs (Past 2hrs) Date/Time Vitals Session Patient Position Pulse Resp SpO2 BP MAP (mmHg) 08/18/24 1632 -- -- -- 18 91 % -- -- Vital Signs Comment: Vitals stable with ambulation, 97bpm, 97% SpO2. Objective Pain: Pain Assessment Pain Assessment: 0-10 0-10 (Numeric) Pain Score: 3 Pain Type: Surgical pain Pain Location: Chest Pain Orientation: Mid Pain Descriptors: Aching, Sore Pain Frequency: Constant/continuous Pain Onset: Ongoing Clinical Progression: Gradually improving Effect of Pain on Daily Activities: PT to tolerance Pain Interventions: Compression, Repositioned, Ambulation/increased activity, Distraction, Elevated, Environmental changes, Relaxation technique, Rest Response to Interventions: Decrease in pain, Content/relaxed (10/19 post mobility) Cognition: Cognition Overall Cognitive Status: Within Functional Limits Orientation Level: Oriented X4 Coordination: Movements are Fluid and Coordinated: Yes Postural Control: Postural Control Postural Control: Within Functional Limits Static Sitting Balance Static Sitting-Comment/Number of Minutes: good balance, no UE support and distant supervision Dynamic Sitting Balance Dynamic Sitting-Comments: good balance, BUE to no UE support with reaching, weight shifting in sitting Static Standing Balance Static Standing-Comment/Number of Minutes: CGA to Supv with BUE support for standing Dynamic Standing Balance Dynamic Standing-Comments: CGA to supv with nezzie walker support for standing Activity Tolerance: Activity Tolerance Endurance: Tolerates 30 min exercise with multiple rests Early Mobility/Exercise Safety Screen: Proceed with mobilization - No exclusion criteria met Activity Tolerance Comments: fair+ activity tolerance with ambulation on level surfaces Rate of Perceived Dyspnea (RPD): 6/10 Rate of Perceived Exertion (RPE): 6/10 Treatments: Therapeutic Activity Therapeutic Activity Performed: Yes Therapeutic Activity 1: ongoing review for PLB, splinted breathing with diaphragmatic excursion anddecreasing accessory muscle use. pt and reported noticable improvement in strength of pt's coughing today. Therapeutic Activity 2: review for warm up and cool down times, progressive mobility with attentionto RPE/RPD and adjustments to her activity as needed; discussed expectations for further PT interventions, including stair training. demonstrated and verbally reviewed logroll, as pt in chair pre/post and has adjustable base bed at home. Therapeutic Activity 3: discussed stair negotiation recommendations to assist pt with her 7+7 stairs at home, including placing chair support at top/bottom of stairs to allow for sufficient rest breaks as needed, negotiating stairs with the presence of her / caregivers for improved safety, allowing sufficient time for recovery of BLUE/fatigue prior to completing additional mobility/ADL tasks, minimizing initial frequency of stair negotation as able to prevent excessive fatigue. pt demonstrated/verbalized agreement. Bed Mobility Bed Mobility: No Ambulation/Gait Training Ambulation/Gait Training Performed: Yes Ambulation/Gait Training 1 Surface 1: Level tile Device 1: Rolling walker (nezzie walker) Assistance 1: Contact guard, Close supervision Quality of Gait 1: Decreased step length, Antalgic Comments/Distance (ft) 1: patient ambulated 95 feet, 45 feet, 100 feet and 80 feet with 30 second to 1 minute long standing rest breaks d/t moderate BLUE/fatigue. demonstrated improved upright posturewith decreased UE reliance on nezzie walker, more fluid with ongoing mobility. Transfers Transfer: Yes Transfer 1 Technique 1: Sit to stand, Stand to sit Transfer Device 1: Walker (nezzie) Transfer Level of Assistance 1: Contact guard, Close supervision, Moderate verbal cues, Minimal tactile cues Trials/Comments 1: review for sequencing, scooting anteriorly prior to standing with emphasis on BLE activation/engagement and pairing exhalation concurrent with movement. patient with remarkable improvement in fludity and improved concentric/eccentric control of prox LE strength demonstrated. Stairs Stairs: No (today's goal to attempt stairs was deferred d/t progressive BLUE/fatigue with ambulationon level surface.) Outcome Measures: [facility] Basic Mobility Turning from your back to your side while in a flat bed without using bedrails: A little Moving from lying on your back to sitting on the side of a flat bed without using bedrails: A lot Moving to and from bed to chair (including a wheelchair): A little Standing up from a chair using your arms (e.g. wheelchair or bedside chair): A little To walk in hospital room: A little Climbing 3-5 steps with railing: Total Basic Mobility - Total Score: 15 Brief Confusion Assessment Method (bCAM) Feature 1: Altered Mental Status or Fluctuating Course: No CAM Result: CAM - FSS-ICU Ambulation: Walks >/ or equal to 150 feet with supervision Rolling: Moderate assistance (performs 50 - 74% of task) Sitting: Supervision or set-up only Transfer [id number]: Supervision or set-up only Transfer [id number]: Moderate assistance (performs 50 - 74% of task) Total Score: 21 Early Mobility/Exercise Safety Screen: Proceed with mobilization - No exclusion criteria met ICU Mobility Scale: Walking with assistance of 1 person [8] Education Documentation Handouts, taught by Jessy Hernández, PT at 08/18/2024 6:15 PM. Learner: Significant Other, Patient Readiness: Acceptance Method: Explanation, Demonstration, Handout Response: Verbalizes Understanding, Demonstrated Understanding Comment: review and progression of mobility with respect to precautions. Precautions, taught by Jessy Hernández, PT at 08/18/2024 6:15 PM. Learner: Significant Other, Patient Readiness: Acceptance Method: Explanation, Demonstration, Handout Response: Verbalizes Understanding, Demonstrated Understanding Comment: review and progression of mobility with respect to precautions. Body Mechanics, taught by Jessy Hernández, PT at 08/18/2024 6:15 PM. Learner: Significant Other, Patient Readiness: Acceptance Method: Explanation, Demonstration, Handout Response: Verbalizes Understanding, Demonstrated Understanding Comment: review and progression of mobility with respect to precautions. Home Exercise Program, taught by Jessy Hernández PT at 08/18/2024 6:15 PM. Learner: Significant Other, Patient Readiness: Acceptance Method: Explanation, Demonstration, Handout Response: Verbalizes Understanding, Demonstrated Understanding Comment: review and progression of mobility with respect to precautions. Mobility Training, taught by Jessy Hernández PT at 08/18/2024 6:15 PM. Learner: Significant Other, Patient Readiness: Acceptance Method: Explanation, Demonstration, Handout Response: Verbalizes Understanding, Demonstrated Understanding Comment: review and progression of mobility with respect to precautions. Education Comments No comments found. OP EDUCATION: Encounter Problems Encounter Problems (Active) PT Problem Patient will complete bed mobility with logroll technique, HOB flat and MOD I (Progressing) Start: 08/11/24 Expected End: 08/25/24 Patient will complete all transfers (sit to/from standing, bed to/from chair) with mod I x1 and LRAD, using safe technique. (Progressing) Start: 08/11/24 Expected End: 08/25/24 Patient will ambulate mod I to independent >500 feet in 6 minutes with stable vitals, minimal ally BLUE, and normal gait speed. (Progressing) Start: 08/11/24 Expected End: 08/25/24 Patient will ascend/descend 7 stairs with HR support +/- LRAD and SBA, with adherence to precautions and safe technique (Progressing) Start: 08/11/24 Expected End: 08/25/24 Patient will recall and adhere to MITT precautions independently with all activities. (Progressing) Start: 08/11/24 Expected End: 08/25/24 * RODNEY Jeong - 08/18/2024 2:47 PM EST Occupational Therapy Therapy Communication Note Patient Name: Karla Cai Department: [facility] Room: [address] [place] [address] Today's Date: 08/18/2024 Discipline: Occupational Therapy Missed Visit Reason: Missed Visit Reason: Patient in a medical procedure (Attempted OT tx, per RN, pt currently off the floor for thoracentesis.) Missed Time: Attempt Cosigned by Nicol Cai OT at 08/20/2024 8:50 AM EST * Eh Mckeon, MANAGER HOSPICE-SURGICAL ONCOLOGIST - 08/18/2024 6:55 AM EST Karla Cai is a 73 y.o. female on day 8 of admission presenting with Aneurysm of ascending aorta without rupture ([facility]-H[facility]) Subjective Ambulated in caba this morning, seen sitting up in chair, eating breakfast, remains on 1L NC to maintain sats>92 Thoracentesis this afternoon for 850 cc serous fluid Objective Physical Exam Constitutional: Comments: Weak but improving Neck: Comments: RIJ CVC site dressing C/D/I Cardiovascular: Rate and Rhythm: Normal rate and regular rhythm. Pulses: Normal pulses. Comments: MSI stable w/o click, well approximated w/o drainage or hematoma EP wires capped Pulmonary: Effort: No respiratory distress. Breath sounds: No stridor. Rhonchi present. Comments: Weak non productive cough 1-2L NC CXR with bilateral effusions/atelectatics CT site dressing c/d/i Abdominal: Palpations: Abdomen is soft. Comments: +BM,+Flatus Musculoskeletal: General: No swelling. Skin: General: Skin is warm and dry. Neurological: General: No focal deficit present. Mental Status: She is alert and oriented to person, place, and time. Psychiatric: Mood and Affect: Mood normal. Behavior: Behavior normal. Thought Content: Thought content normal. Judgment: Judgment normal. Review of Systems Denies chest pain, palpations, light headedness, dizziness sob, n/v fever, chills Last Recorded Vitals Blood pressure 112/69, pulse 89, temperature 37.1 C (98.8 F), temperature source Temporal, resp. rate 16, height 1.753 m (5' 9), weight 82.9 kg (182 lb 12.2 oz), SpO2 92%. Intake/Output Last 3 Shifts I/O last 3 completed shifts: In: 820 (9.9 mL/kg) [P.O.:820] Out: 2975 (35.9 mL/kg) [Urine:2975 (1 mL/kg/hr)] Weight: 82.9 kg Lines Recent Labs CMP: Results from last 7 days Lab Units 08/18/24 0529 08/17/24 0523 08/16/24 0529 08/15/24 0526 08/14/24 0510 08/13/24 0514 08/12/24 2002 08/12/24 0606 SODIUM mmol/L 139 135* 132* 134* 130* 130* 132* 136 POTASSIUM mmol/L 4.2 3.9 4.0 4.4 3.6 4.0 4.0 4.2 CHLORIDE mmol/L 106 103 102 101 100 101 102 105 CO2 mmol/L 25 23 22 25 22 21 21 25 ANION GAP mmol/L 12 13 12 12 12 12 13 10 BUN mg/dL 35* 38* 40* 41* 39* 37* 34* 29* CREATININE mg/dL 0.79 0.83 0.81 0.86 0.79 0.88 0.92 0.64 EGFR mL/min/1.73m*2 79 74 76 71 79 69 65 >90 MAGNESIUM mg/dL 2.08 2.22 2.34 2.37 2.22 -- 2.90* 1.87 ALBUMIN g/dL 3.0* 3.0* 3.0* 3.2* 3.1* 3.4 3.4 3.4 CBC: Results from last 7 days Lab Units 08/18/24 0529 08/17/24 0523 08/16/24 0528 08/15/24 0526 08/14/24 0510 08/13/24 0514 08/12/24 1812 08/12/24 1451 08/12/24 0606 WBC AUTO x10*3/uL 11.5* 11.9* 10.2 10.3 11.9* 17.1* 19.2* 19.2* -- 12.4* HEMOGLOBIN g/dL 8.9* 8.4* 8.5* 8.7* 9.0* 9.9* 10.3* 10.3* 10.3* 9.0* HEMATOCRIT % 27.8* 25.5* 25.2* 26.6* 24.9* 28.0* 30.2* 30.2* 30.1* 27.7* PLATELETS AUTO x10*3/uL 409 342 287 283 224 247 237 237 -- 186 MCV fL 91 92 90 91 83 87 88 88 -- 91 COAG: Results from last 7 days Lab Units 08/12/24 1654 INR 1.5* HEME/ENDO: CARDIAC: Imaging XR chest 2 views Final Result Interval removal of support devices. Status post sternotomy. Uwsu-otzogpq-uylu-right basilar infiltrates and/or pleural effusions. MACRO: None. Signed by: Fernanda Lambert 08/17/2024 11:22 AM Dictation workstation: [id number] XR chest 1 view Final Result 1. Patchy bibasilar opacities may represent atelectasis, edema, aspiration, or infection. 2. Small left pleural effusion. MACRO: None Signed by: Lenard Munguia 08/14/2024 8:07 AM Dictation workstation: [id number] XR chest 1 view Final Result 1. Near-total resolution of the right apical pneumothorax with question of tiny residual. 2. Persistent left basilar effusion and infiltrate for which continued follow-up recommended. Question subtle right basilar infiltrate. MACRO: None Signed by: Chirag Ortega 08/13/2024 8:06 AM Dictation workstation: [id number] XR chest 1 view Final Result 1. Stable exam. Small right apical pneumothorax. MACRO: None Signed by: Lenard Munguia 08/12/2024 6:05 PM Dictation workstation: [id number] Transthoracic Echo (TTE) Limited Final Result XR chest 1 view Final Result Recent heart surgery. Stable right IJ vein catheter and bibasilar chest tubes. Decrease in size of now tiny right apical pneumothorax. Stable pleural and parenchymal opacities at the left base. Stable atelectasis at the medial right lung base. Cardiomegaly. MACRO: None Signed by: Rob Hussein 08/12/2024 8:04 AM Dictation workstation: [id number] XR chest 1 view Final Result Recent heart surgery. ET tube and NG [...] Rob Hussein 08/11/2024 8:18 AM Dictation workstation: [id number] XR chest 1 view Final Result Status post sternotomy with multiple support devices in place as above. Questionable small left apical pneumothorax. Vwsj-yvmhjkt-zjmk-right basilar infiltrates or atelectasis. MACRO: None. Signed by: Fernanda Lambert 08/10/2024 2:44 PM Dictation workstation: [id number] Anesthesia Intraoperative Transesophageal Echocardiogram Final Result Medications Scheduled medications aspirin, 81 mg, oral, Daily enoxaparin, 40 mg, subcutaneous, q24h KEYANNA ferrous sulfate (325 mg ferrous sulfate), 65 mg of iron, oral, Daily with breakfast furosemide, 20 mg, intravenous, q12h insulin lispro, 0-15 Units, subcutaneous, Before meals & nightly metoprolol tartrate, 25 mg, oral, BID multivitamin with minerals, 1 tablet, oral, Daily [Held by provider] polyethylene glycol, 17 g, oral, Daily potassium chloride CR, 20 mEq, oral, BID pravastatin, 20 mg, oral, Nightly [Held by provider] sennosides-docusate sodium, 2 tablet, oral, BID Continuous medications PRN medications PRN medications: acetaminophen, ipratropium-albuteroL, [DISCONTINUED] ondansetron ODT OR ondansetron, oxyCODONE, oxygen, simethicone, traZODone Assessment/Plan Principal Problem: Aneurysm of ascending aorta without rupture ([facility]-H[facility]) Active Problems: Acute respiratory distress syndrome (ARDS) (Multi) 73 y.o. F PMHx of Ascending aortic aneurysm with mild AI, breast CA, CKD II, pre-DM, diverticulitis, GERD, HLD, and HTN now s/p ascending Ao replacement ([employer]), LAAC (45mm Atriclip), and pericardial window 08/10/[address] Galloway. Neuro: # expected Acute postop pain well controlled - Serial neuro and pain assessments - Analgesia: PRN Tylenol pain level & Oxy 5mg for breakthrough - PT/OT/MITT - ambulate in caba - Olopatadine eye gtts as needed - Trazodone for Sleep CV: # Asc Ao aneurysm s/p Asc Ao replacement with LAAC 08/[address] Galloway. # Normal biV pre and post CPB,:12 TTE ef 49%reduced RV/lg left pleural effusion/ mild MR # new LBBB # H/O HTN, HLD # Vasodilatory hypotension resolved # Post op Afib RVR->NSR-> Accelerated junctional- > NSR #Epicardial wires capped - Cut EP wires - Continue ASA, statin - Metoprolol 12.5 mg bid titrate as HDs permit - Hold home irbesartan, spironolactone for now Pulm: # expected atelectasis -2L NC SpO2 92-100% # Acute hypoxic respiratory failure moderate ARDS P/F ratio 162 requiring Airvo- resolved #Acute hypoxic respiratory insufficiency 2/2 increased Left pleural effusion 12 2 view cxr increased Left pleural effusion - Chest tubes removed POD#4 - Wean FiO2 to SpO2 > 90% - BPH - Duoneb prn - Home O2 eval - IR consulted for Left thoracenthesis this afternoon (850cc serous fluid drained) GI: Poor po Intake, +BM,+flatus # H/O Diverticulitis # LLQ intermittent abd pain- resolved - Regular Diet add fluid restriction - DC Mitchel per patient request, Ensure - Bowel regimen- on hold d/t frequent soft stool - Gas X - GI ppx: not indicated /Renal: Voiding - I/Os: since admission +8L/ last 24 hours -1395L (inaccurate missing hat); wt 82.9 today (08/16 85 ; preop 77kg) # expected post op fluid overload # H/O Stage II CKD (baseline Cr 0.9) - RFP daily, replete lytes per protocol - I&O - discussed hat front & back of toliet - Lasix 20 mg IV bid scheduled - K dur 40meq this am then 20meq bid Heme/Onc: # Acute blood loss anemia, zoie-op coagulopathy. POD#2 S/P 2 units prbc # Hx breast CA s/p lumpectomy and XRT - CBC daily and as needed - DVTppx: SCDs, Lovenox - MVI, start iron Endo: Pre DM with last A1c 5.9 - POCT BG, corrective scale qachs - Maintain BG < 180. Hypoglycemia protocol ID: afebrile Leukocytosis resolved; MRSA screen negative - Trend temp, WBCs - Periop abx cefaz x 48 hrs completed Dispo: SDU status; anticipating home with [facility] tomorrow Time spent on the assessment of patient, gathering and interpreting data, review of medical record/patient history, personally reviewing radiographic imaging and formulation of this note. With greater than 50% spent in personal discussion with patient/ family. Time:45 Eh Mckeon APRN-TYRA * Jessy Hernández, PT - 08/17/2024 6:54 PM EST Physical Therapy Physical Therapy Treatment Patient Name: Karla Cai Department: [place] [id number] ICU Room: [address] [place] [address] Today's Date: 08/17/2024 Time Calculation Start Time: 175 Stop Time: 182 Time Calculation (min): 27 min Assessment/Plan PT Assessment PT Assessment Results: Decreased strength, Decreased endurance, Impaired balance, Decreased mobility, Pain Rehab Prognosis: Good Barriers to Discharge: ongoing medical and PT interventions Evaluation/Treatment Tolerance: Patient limited by fatigue (but demonstrating significant improvements in activity tolerance despite decrease in O2 and medication support) Medical Staff Made Aware: Yes Strengths: Ability to acquire knowledge, Access to adaptive/assistive products, Attitude of self, Premorbid level of function, Rehab experience, Support and attitude of living partners, Support of extended family/friends Barriers to Participation: Comorbidities, Housing layout End of Session Communication: Bedside nurse, Charge Nurse Assessment Comment: Patient is POD#7 s/p aortic aneurysm repair with postop needs for prolonged O2 support, delayed removal of lines/tubes and pressors. She is now mobilizing with CGA/SBA support andkenny alvarez on 1LO2 NC with moderate fatigue; progressing with distance and duration. Patient will benefit from ongoing PT in house to maximize her independence and promote her functional I. End of Session Patient Position: Up in chair, Alarm off, not on at start of session (RN aware) PT Plan Inpatient/Swing Bed or Outpatient: Inpatient PT Plan Treatment/Interventions: Bed mobility, Transfer training, Gait training, Stair training, Balance training, Strengthening, Therapeutic activity, Home exercise program, Positioning, Postural re-education PT Plan: Ongoing PT PT Frequency: 3 times per week PT Discharge Recommendations: Low intensity level of continued care Equipment Recommended upon Discharge: Wheeled walker PT Recommended Transfer Status: Assist x1, Assistive device PT - OK to Discharge: Yes General Visit Information: PT Visit PT Received On: 08/17/24 Response to Previous Treatment: Patient reporting fatigue but able to participate. (ambulated in halls x3 today with kenny walker) General Reason for Referral: POD #7 ascending aorta repair with LAAC Referred By: DO Ranjan Past Medical History Relevant to Rehab: Past Medical History: Diagnosis Date Allergic rhinitis Aortic regurgitation Arthritis bilateral feet Ascending aortic aneurysm (CMS-HCC) Breast cancer (Multi) 2010 s/p lumpectomy,radiation and tamoxifen CKD (chronic kidney disease) stage 2 Diverticulitis no issues since 2019 DM (diabetes mellitus) (Multi) diet controlled GERD (gastroesophageal reflux disease) occasional symptoms HLD (hyperlipidemia) Hypertension Hypokalemia Kidney cyst, acquired Mitral regurgitation Osteopenia Tricuspid regurgitation PT Missed Visit: Yes Missed Visit Reason: Patient sleeping (returned from amb in [place] ~40 minutes prior. requires supplemental O2 support and vitals monitoring. patient agreeable to mobilize again later today. disucssed with DANIEL Larry.) Family/Caregiver Present: Yes Caregiver Feedback: Dominic present and supportive. both engaged in education provided. Prior to Session Communication: Bedside nurse Patient Position Received: Up in chair, Alarm off, not on at start of session Preferred Learning Style: auditory, kinesthetic, visual, written General Comment: patient on 1LO2 NC, tele, PIV heplocked. Subjective Precautions: Precautions Medical Precautions: Cardiac precautions Post-Surgical Precautions: Move in the Tube Precautions Comment: reviewed MITT precautions and progressive mobility throughout Vital Signs (Past 2hrs) Date/Time Vitals Session Patient Position Pulse Resp SpO2 BP MAP (mmHg) 08/17/24 1755 During PT Sitting 88 18 97 % 108/63 77 Vital Signs Comment: Vitals stable with movement: BP 118/67(80), HR 101bpm, SpO2 92-95% with ambulation, occasional mouth breathing with fatigue; cues for PLB Objective Pain: Pain Assessment Pain Assessment: 0-10 0-10 (Numeric) Pain Score: 3 Pain Type: Surgical pain Pain Location: Sternum Pain Orientation: Mid Pain Descriptors: Aching, Sore Pain Frequency: Constant/continuous Pain Onset: Ongoing Clinical Progression: Not changed Effect of Pain on Daily Activities: PT to tolerance. Splinted coughing, transfers, breathing techniques with (+) response Patient's Stated Pain Goal: No pain Pain Interventions: Compression, Repositioned, Ambulation/increased activity, Elevated, Distraction, Relaxation technique, Rest Response to Interventions: Content/relaxed, No change in pain Cognition: Cognition Overall Cognitive Status: Within Functional Limits Orientation Level: Oriented X4 Coordination: Movements are Fluid and Coordinated: Yes Postural Control: Postural Control Postural Control: Within Functional Limits Static Sitting Balance Static Sitting-Comment/Number of Minutes: good balance with distant supv Dynamic Sitting Balance Dynamic Sitting-Comments: good balance with close supv Static Standing Balance Static Standing-Comment/Number of Minutes: CGA to SBA with single to BUE support, fair+ balance Dynamic Standing Balance Dynamic Standing-Comments: CGA to SBA with BUE support, fair+ balance Activity Tolerance: Activity Tolerance Endurance: Tolerates 30 min exercise with multiple rests Early Mobility/Exercise Safety Screen: Proceed with mobilization - No exclusion criteria met Activity Tolerance Comments: fair+ activity tolerance Rate of Perceived Dyspnea (RPD): 5/10 Rate of Perceived Exertion (RPE): 5/10 Treatments: Therapeutic Activity Therapeutic Activity Performed: Yes Therapeutic Activity 1: reviewed PLB and provided demo with pt completing splinted breathing with emphasis on diaphragmatic excursion. pt with tendency to quickly revert to accessory muscle use. instruction for ongoing homework for pt to focus on this. Therapeutic Activity 2: postural corrections provided with mobility. pt with slow pace, able to converse between 3-4 words comfortably, 2 instances of mouth breathing and hyperventilation during ambulation, quickly corrected with demo and multimodal correction from PT. Bed Mobility Bed Mobility: No (pt up in chair pre/post visit; ongoing instruction for logroll advised for futuresessions) Ambulation/Gait Training Ambulation/Gait Training Performed: Yes Ambulation/Gait Training 1 Surface 1: Level tile Device 1: Rolling walker (nezzie walker) Assistance 1: Contact guard, Close supervision, Moderate verbal cues, Minimal tactile cues Quality of Gait 1: Decreased step length, Inconsistent stride length, Forward flexed posture, Antalgic Comments/Distance (ft) 1: patient ambulated with FWW support 65 feet, 45 feet, 50 feet x2 with brief standing rest breaks (less than 30 seconds each) with cues for postural corrections, fluctuated between CGA and SBA. Transfers Transfer: Yes Transfer 1 Transfer From 1: Chair with drop arm to Transfer to 1: Commode-standard Technique 1: Lateral, To right, Sit to stand, Stand to sit Transfer Level of Assistance 1: Hand held assistance, Contact guard, Set up, Moderate verbal cues, Minimal tactile cues Trials/Comments 1: patient cued on hand placement, sequencing and safety Transfers 2 Technique 2: Sit to stand, Stand to sit Transfer Device 2: Cardio-thoracic walker Transfer Level of Assistance 2: Set up, Contact guard, Moderate verbal cues, Minimal tactile cues Trials/Comments 2: review for precautions, hand placement and sequencing. good carryover Stairs Stairs: No (pt requesting to trial another time, emphasis on level surfaces this date) Outcome Measures: [facility] Basic Mobility Turning from your back to your side while in a flat bed without using bedrails: A little Moving from lying on your back to sitting on the side of a flat bed without using bedrails: A lot Moving to and from bed to chair (including a wheelchair): A little Standing up from a chair using your arms (e.g. wheelchair or bedside chair): A little To walk in hospital room: A little Climbing 3-5 steps with railing: Total Basic Mobility - Total Score: 15 Brief Confusion Assessment Method (bCAM) Feature 1: Altered Mental Status or Fluctuating Course: No CAM Result: CAM - FSS-ICU Ambulation: Walks >/ or equal to 150 feet with supervision Rolling: Moderate assistance (performs 50 - 74% of task) Sitting: Supervision or set-up only Transfer Xkc-el-[id number]: Minimal assistance (performs 75% or more of task) Transfer Vrzanc-oq-Sug: Moderate assistance (performs 50 - 74% of task) Total Score: 20 Early Mobility/Exercise Safety Screen: Proceed with mobilization - No exclusion criteria met ICU Mobility Scale: Walking with assistance of 1 person [8] Education Documentation Handouts, taught by Jessy Hernández, PT at 08/17/2024 6:53 PM. Learner: Significant Other, Patient Readiness: Acceptance Method: Explanation, Demonstration Response: Verbalizes Understanding, Demonstrated Understanding Comment: ongoing review of precautions concurrent with mobility; progressive ambulation with postural corrections, breathing techniques using splinting of pillow for incision. Precautions, taught by Jessy Hernández PT at 08/17/2024 6:53 PM. Learner: Significant Other, Patient Readiness: Acceptance Method: Explanation, Demonstration Response: Verbalizes Understanding, Demonstrated Understanding Comment: ongoing review of precautions concurrent with mobility; progressive ambulation with postural corrections, breathing techniques using splinting of pillow for incision. Body Mechanics, taught by Jessy Hernández PT at 08/17/2024 6:53 PM. Learner: Significant Other, Patient Readiness: Acceptance Method: Explanation, Demonstration Response: Verbalizes Understanding, Demonstrated Understanding Comment: ongoing review of precautions concurrent with mobility; progressive ambulation with postural corrections, breathing techniques using splinting of pillow for incision. Home Exercise Program, taught by Jessy Hernández PT at 08/17/2024 6:53 PM. Learner: Significant Other, Patient Readiness: Acceptance Method: Explanation, Demonstration Response: Verbalizes Understanding, Demonstrated Understanding Comment: ongoing review of precautions concurrent with mobility; progressive ambulation with postural corrections, breathing techniques using splinting of pillow for incision. Mobility Training, taught by Jessy Hernández PT at 08/17/2024 6:53 PM. Learner: Significant Other, Patient Readiness: Acceptance Method: Explanation, Demonstration Response: Verbalizes Understanding, Demonstrated Understanding Comment: ongoing review of precautions concurrent with mobility; progressive ambulation with postural corrections, breathing techniques using splinting of pillow for incision. Education Comments No comments found. OP EDUCATION: Encounter Problems Encounter Problems (Active) PT Problem Patient will complete bed mobility with logroll technique, HOB flat and MOD I (Progressing) Start: 08/11/24 Expected End: 08/25/24 Patient will complete all transfers (sit to/from standing, bed to/from chair) with mod I x1 and LRAD, using safe technique. (Progressing) Start: 08/11/24 Expected End: 08/25/24 Patient will ambulate mod I to independent >500 feet in 6 minutes with stable vitals, minimal ally BLUE, and normal gait speed. (Progressing) Start: 08/11/24 Expected End: 08/25/24 Patient will ascend/descend 7 stairs with HR support +/- LRAD and SBA, with adherence to precautions and safe technique (Progressing) Start: 08/11/24 Expected End: 08/25/24 Patient will recall and adhere to MITT precautions independently with all activities. (Progressing) Start: 08/11/24 Expected End: 08/25/24 * Vaishali Oseguera RN - 08/17/2024 5:24 PM EST 08/17/24 1724 Discharge Planning Expected Discharge Disposition Home H Patient remains in ICU. She is sitting up in the chair. Her oxygen demand is decreased and she is on 1L NC. When patient is medically ready will go home with her and [facility] following. * Jessy Hernández PT - 08/17/2024 3:19 PM EST Physical Therapy Therapy Communication Note Patient Name: Karla Cai Department: [place] [id number] ICU Room: [address] [place] [address] Today's Date: 08/17/2024 Discipline: Physical Therapy Missed Visit Reason: Missed Visit Reason: Patient sleeping (returned from [facility] in [place] ~40 minutes prior. requires supplemental O2 support and vitals monitoring. patient agreeable to mobilize again later today. disucssed with DANIEL Larry.) Missed Time: Attempt Comment: * Vita Hernandez Cap, APRN-TYRA - 08/17/2024 7:39 AM EST Karla Cai is a 73 y.o. female on day 7 of admission presenting with Aneurysm of ascending aorta without rupture ([facility]-HCC). Subjective Pain controlled/ improved ambulating in halls - yesterday half loop around unit Mild sob but improving Denies nausea, vomiting, tolerating oral intake, limited appetite Objective Physical Exam Vitals reviewed. Constitutional: Comments: OOB in chair HENT: Head: Normocephalic and atraumatic. Cardiovascular: Rate and Rhythm: Normal rate and regular rhythm. Heart sounds: No murmur heard. No friction rub. No gallop. Comments: Tele: SR with occasional PVCs Pulmonary: Comments: Mild conversational dyspnea, CTA upper, diminished bilateral bases Abdominal: General: Abdomen is flat. Palpations: Abdomen is soft. Musculoskeletal: General: Normal range of motion. Skin: General: Skin is warm and dry. Comments: MSI CDI, without erythema; sternum stable; epi cardial wires capped Neurological: General: No focal deficit present. Mental Status: She is alert and oriented to person, place, and time. Psychiatric: Mood and Affect: Mood normal. Last Recorded Vitals Blood pressure 107/62, pulse 86, temperature 37.3 C (99.1 F), temperature source Temporal, resp. rate 17, height 1.753 m (5' 9), weight 82.9 kg (182 lb 12.2 oz), SpO2 95%. Intake/Output last 3 Shifts: I/O last 3 completed shifts: In: 580 (7 mL/kg) [P.O.:580] Out: 1975 (23.8 mL/kg) [Urine:1975 (0.7 mL/kg/hr)] Weight: 82.9 kg Relevant Results Scheduled medications aspirin, 81 mg, oral, Daily enoxaparin, 40 mg, subcutaneous, q24h KEYANNA furosemide, 20 mg, intravenous, q12h insulin lispro, 0-15 Units, subcutaneous, Before meals & nightly metoprolol tartrate, 12.5 mg, oral, BID multivitamin with minerals, 1 tablet, oral, Daily [Held by provider] polyethylene glycol, 17 g, oral, Daily pravastatin, 20 mg, oral, Nightly [Held by provider] sennosides-docusate sodium, 2 tablet, oral, BID Continuous medications PRN medications PRN medications: acetaminophen, benzonatate, dextromethorphan-guaifenesin, ipratropium-albuteroL, naloxone, [DISCONTINUED] ondansetron ODT OR ondansetron, oxyCODONE, oxyCODONE, oxygen, simethicone, traZODone Results for orders placed or performed during the hospital encounter of 08/10/24 (from the past 24 hours) POCT GLUCOSE Result Value Ref Range POCT Glucose 122 (H) 74 - 99 mg/dL POCT GLUCOSE Result Value Ref Range POCT Glucose 126 (H) 74 - 99 mg/dL POCT GLUCOSE Result Value Ref Range POCT Glucose 130 (H) 74 - 99 mg/dL POCT GLUCOSE Result Value Ref Range POCT Glucose 122 (H) 74 - 99 mg/dL Magnesium Result Value Ref Range Magnesium 2.22 1.60 - 2.40 mg/dL Renal Function Panel Result Value Ref Range Glucose 119 (H) 74 - 99 mg/dL Sodium 135 (L) 136 - 145 mmol/L Potassium 3.9 3.5 - 5.3 mmol/L Chloride 103 98 - 107 mmol/L Bicarbonate 23 21 - 32 mmol/L Anion Gap 13 10 - 20 mmol/L Urea Nitrogen 38 (H) 6 - 23 mg/dL Creatinine 0.83 0.50 - 1.05 mg/dL eGFR 74 >60 mL/min/1.73m*2 Calcium 7.6 (L) 8.6 - 10.3 mg/dL Phosphorus 3.0 2.5 - 4.9 mg/dL Albumin 3.0 (L) 3.4 - 5.0 g/dL CBC Result Value Ref Range WBC 11.9 (H) 4.4 - 11.3 x10*3/uL nRBC 0.4 (H) 0.0 - 0.0 /100 WBCs RBC 2.77 (L) 4.00 - 5.20 x10*6/uL Hemoglobin 8.4 (L) 12.0 - 16.0 g/dL Hematocrit 25.5 (L) 36.0 - 46.0 % MCV 92 80 - 100 fL MCH 30.3 26.0 - 34.0 pg MCHC 32.9 32.0 - 36.0 g/dL RDW 15.3 (H) 11.5 - 14.5 % Platelets 342 150 - 450 x10*3/uL POCT GLUCOSE Result Value Ref Range POCT Glucose 116 (H) 74 - 99 mg/dL XR chest 1 view Final Result 1. Patchy bibasilar opacities may represent atelectasis, edema, aspiration, or infection. 2. Small left pleural effusion. MACRO: None Signed by: Lenard Munguia 08/14/2024 8:07 AM Dictation workstation: [id number] XR chest 1 view Final Result 1. Near-total resolution of the right apical pneumothorax with question of tiny residual. 2. Persistent left basilar effusion and infiltrate for which continued follow-up recommended. Question subtle right basilar infiltrate. MACRO: None Signed by: Chirag Ortega 08/13/2024 8:06 AM Dictation workstation: [id number] XR chest 1 view Final Result 1. Stable exam. Small right apical pneumothorax. MACRO: None Signed by: Lenard Munguia 08/12/2024 6:05 PM Dictation workstation: [id number] Transthoracic Echo (TTE) Limited Final Result XR chest 1 view Final Result Recent heart surgery. Stable right IJ vein catheter and bibasilar chest tubes. Decrease in size of now tiny right apical pneumothorax. Stable pleural and parenchymal opacities at the left base. Stable atelectasis at the medial right lung base. Cardiomegaly. MACRO: None Signed by: Rob Hussein 08/12/2024 8:04 AM Dictation workstation: [id number] XR chest 1 view Final Result Recent heart surgery. ET tube and NG [...] Rob Hussein 08/11/2024 8:18 AM Dictation workstation: [id number] XR chest 1 view Final Result Status post sternotomy with multiple support devices in place as above. Questionable small left apical pneumothorax. Tkuv-riinrxm-oxae-right basilar infiltrates or atelectasis. MACRO: None. Signed by: Fernanda Lambert 08/10/2024 2:44 PM Dictation workstation: [id number] Anesthesia Intraoperative Transesophageal Echocardiogram Final Result XR chest 2 views (Results Pending) Assessment/Plan Assessment & Plan Aneurysm of ascending aorta without rupture (CMS-HCC) Acute respiratory distress syndrome (ARDS) (Multi) 73 y.o. F PMHx of Ascending aortic aneurysm with mild AI, breast CA, CKD II, pre-DM, diverticulitis, GERD, HLD, and HTN now s/p ascending Ao replacement ([facility]), LAAC (45mm Atriclip), and pericardial window 08/10/[address] Galloway. Neuro: # expected Acute postop pain well controlled - Serial neuro and pain assessments - Analgesia: PRN Tylenol pain level & Oxy 5mg for breakthrough, dc oxy 10 mg - PT/OT/MITT - ambulate in [place] - Olopatadine eye gtts as needed - Trazodone for Sleep CV: # Asc Ao aneurysm s/p Asc Ao replacement with LAAC 08/[address] Galloway. # Normal biV pre and post CPB,:12 TTE ef 49%reduced RV/lg left pleural effusion/ mild MR # new LBBB # H/O HTN, HLD # Vasodilatory hypotension resolved # Post op Afib RVR->NSR-> Accelerated junctional- > NSR #Epicardial wires capped - Continue ASA, statin - Metoprolol 12.5 mg bid titrate as HDs permit - Hold home irbesartan, spironolactone for now Pulm: # expected atelectasis -2L NC SpO2 92-100% # Acute hypoxic respiratory failure moderate ARDS P/F ratio 162 requiring Airvo- resolved Chest tubes removed POD#4 - Wean FiO2 to SpO2 > 90% - BPH - Duoneb prn - PA & lateral after more diuresis GI: Poor po Intake, +BM,+flatus # H/O Diverticulitis # LLQ intermittent abd pain- resolved - Regular Diet add fluid restriction - DC Mitchel per patient request, Ensure - Bowel regimen- on hold d/t frequent soft stool - Gas X - GI ppx: not indicated /Renal: Voiding - I/Os: since admission +8L/ last 24 hours -1395L (inaccurate missing hat); wt 82.9 today (08/16 85 ; preop 77kg) # expected post op fluid overload # H/O Stage II CKD (baseline Cr 0.9) - RFP daily, replete lytes per protocol - I&O - discussed hat front & back of toliet - Lasix 20 mg IV bid scheduled - K dur 40meq this am then 20meq bid Heme/Onc: # Acute blood loss anemia, zoie-op coagulopathy. POD#2 S/P 2 units prbc # Hx breast CA s/p lumpectomy and XRT - CBC daily and as needed - DVTppx: SCDs, Lovenox - MVI, start iron Endo: Pre DM with last A1c 5.9 - POCT BG, corrective scale qachs - Maintain BG < 180. Hypoglycemia protocol ID: afebrile Leukocytosis resolved; MRSA screen negative - Trend temp, WBCs - Periop abx cefaz x 48 hrs completed Dispo: SDU status; anticipating home with [facility] mid to late week Seen & Discussed plan with Dr Mcdonald Bedside RN, patient and all in agreement I spent 60 minutes in the professional and overall care of this patient. JESSE Mrain Cap * Odette Tracey OT - 08/16/2024 1:44 PM EST Occupational Therapy Therapy Communication Note Patient Name: Karla Cai Department: [place] [address] ICU Room: [address] [place] [address] Today's Date: 08/16/2024 Discipline: Occupational Therapy Missed Visit Reason: Missed Visit Reason: Other (Comment) (Per RN pt was just up and ambulating to the bathroom, pt eating lunch now. OT asked to defer at this time.) Missed Time: Attempt * Saul Tariq PTA - 08/16/2024 10:04 AM EST Physical Therapy Physical Therapy Treatment Patient Name: Karla Cai Department: [place] [id number] ICU Room: [address] [place] [address] Today's Date: 08/16/2024 Time Calculation Start Time: 0830 Stop Time: 0853 Time Calculation (min): 23 min Assessment/Plan PT Assessment End of Session Communication: Bedside nurse Assessment Comment: Pt able to move to sit in chair at this date. End of Session Patient Position: Up in chair (Left with RN) PT Plan Inpatient/Swing Bed or Outpatient: Inpatient PT Plan Treatment/Interventions: Bed mobility, Transfer training, Gait training PT Plan: Ongoing PT PT Frequency: 3 times per week PT Discharge Recommendations: Low intensity level of continued care Equipment Recommended upon Discharge: Wheeled walker PT Recommended Transfer Status: Assist x1 PT - OK to Discharge: Yes (per POC) General Visit Information: PT Visit PT Received On: 08/16/24 General Reason for Referral: s/p Ascending aorta repair with LAAC 08/[address] Galloway. Normal biV pre and post CPB, new LBBB Referred By: Pack, DO Patient Position Received: Alarm off, not on at start of session, Bed, 3 rail up Preferred Learning Style: auditory, kinesthetic, verbal, visual, written General Comment: Pt supine in bed upon arrival, agreeable to tx. Subjective Precautions: Precautions Medical Precautions: Cardiac precautions, Fall precautions Post-Surgical Precautions: Move in the Tube Vital Signs (Past 2hrs) Date/Time Vitals Session Patient Position Pulse Resp SpO2 BP MAP (mmHg) 08/16/24 0830 During PT -- 85 25 93 % -- -- 08/16/24 0900 -- -- 97 25 92 % 96/57 69 Objective Pain: Pain Assessment Pain Assessment: 0-10 0-10 (Numeric) Pain Score: 6 Pain Type: Surgical pain Pain Location: Sternum Pain Interventions: Ambulation/increased activity, Repositioned Cognition: Cognition Orientation Level: Oriented X4 Treatments: Bed Mobility Bed Mobility: Yes Bed Mobility 1 Bed Mobility 1: Log roll, Supine to sitting Level of Assistance 1: Minimum assistance Bed Mobility Comments 1: Pt performed with cues given for proper sequencing. Min A at the trunk andBLEs Ambulation/Gait Training Ambulation/Gait Training Performed: Yes Ambulation/Gait Training 1 Surface 1: Level tile Device 1: Rolling walker Assistance 1: Contact guard Quality of Gait 1: Decreased step length, Forward flexed posture Comments/Distance (ft) 1: Pt ambulated 40ftx2 with cues given for upright posture and forward gaze Transfers Transfer: Yes Transfer 1 Technique 1: Sit to stand, Stand to sit Transfer Device 1: Cardio-thoracic walker Transfer Level of Assistance 1: Contact guard Trials/Comments 1: Performed x2 with cues given for hand placement before sitting and standing. No overt LOB. Outcome Measures: [facility] Basic Mobility Turning from your back to your side while in a flat bed without using bedrails: A little Moving from lying on your back to sitting on the side of a flat bed without using bedrails: A little Moving to and from bed to chair (including a wheelchair): A little Standing up from a chair using your arms (e.g. wheelchair or bedside chair): A little To walk in hospital room: A little Climbing 3-5 steps with railing: Total Basic Mobility - Total Score: 16 Education Documentation Precautions, taught by Saul Tariq PTA at 08/16/2024 10:03 AM. Learner: Patient Readiness: Acceptance Method: Explanation Response: Verbalizes Understanding Body Mechanics, taught by Saul Tariq PTA at 08/16/2024 10:03 AM. Learner: Patient Readiness: Acceptance Method: Explanation Response: Verbalizes Understanding Home Exercise Program, taught by Saul Tariq PTA at 08/16/2024 10:03 AM. Learner: Patient Readiness: Acceptance Method: Explanation Response: Verbalizes Understanding Mobility Training, taught by Saul Tariq PTA at 08/16/2024 10:03 AM. Learner: Patient Readiness: Acceptance Method: Explanation Response: Verbalizes Understanding Education Comments No comments found. OP EDUCATION: Outpatient Education Education Comment: educated on importance of OOB activity Encounter Problems Encounter Problems (Active) PT Problem Patient will complete bed mobility with logroll technique, HOB flat and MOD I (Progressing) Start: 08/11/24 Expected End: 08/25/24 Patient will complete all transfers (sit to/from standing, bed to/from chair) with mod I x1 and LRAD, using safe technique. (Progressing) Start: 08/11/24 Expected End: 08/25/24 Patient will ambulate mod I to independent >500 feet in 6 minutes with stable vitals, minimal ally BLUE, and normal gait speed. (Progressing) Start: 08/11/24 Expected End: 08/25/24 Patient will ascend/descend 7 stairs with HR support +/- LRAD and SBA, with adherence to precautions and safe technique (Progressing) Start: 08/11/24 Expected End: 08/25/24 Patient will recall and adhere to MITT precautions independently with all activities. (Progressing) Start: 08/11/24 Expected End: 08/25/24 Pain - Adult Safety LTG - Patient will adhere to hip precautions during ADL's and transfers Start: 08/10/24 LTG - Patient will demonstrate safety requirements appropriate to situation/environment Start: 08/10/24 LTG - Patient will utilize safety techniques Start: 08/10/24 STG - Patient locks brakes on wheelchair Start: 08/10/24 STG - Patient uses call light consistently to request assistance with transfers Start: 08/10/24 STG - Patient uses gait belt during all transfers Start: 08/10/24 Goal 1 Start: 08/10/24 Goal 2 Start: 08/10/24 Goal 3 Start: 08/10/24 Cosigned by Sigifredo Peters, PT at 08/16/2024 4:17 PM EST * Eh Veliz Linda, MANAGER HOSPICE-SURGICAL ONCOLOGIST - 08/16/2024 7:39 AM EST Karla Cai is a 73 y.o. female on day 6 of admission presenting with Aneurysm of ascending aorta without rupture ([facility]) Subjective ASHLEY, slept a little better Remains on 1-2 L NC, HD stable, SR 80-90's, +BM, voiding (has not measured) Ambulated multiple times yesterday Objective Physical Exam Vitals reviewed. Constitutional: General: She is not in acute distress. Appearance: She is weak Comments: Elderly female sitting up in chair, color improved Neck: Comments: [facility] [place] CVC dressing c/d/i Cardiovascular: Rate and Rhythm: Regular Pulses: Normal pulses. Comments: MSI stable w/o click, well approximated w/o drainage or hematoma NSR 90's EP pacer vvi 40 capped Pulmonary: Breath sounds: No stridor. No wheezing or rhonchi. Comments: Shallow respirations, Equal chest rise, Chest tube site dressing C/D/I NC 1-2L Abdominal: Palpations: Abdomen is soft. Genitourinary: Comments: voiding s/p carlson Musculoskeletal: Right lower leg: +1 edema present. Left lower le+ edema present. Skin: General: Skin is warm and dry. Coloration: Skin is pink Neurological: General: No focal deficit present. Mental Status: She is alert and oriented to person, place, and time. Psychiatric: Mood and Affect: Mood normal. Behavior: Behavior normal. Judgment: Judgment normal. Review of Systems Denies chest pain, palpations, light headedness, dizziness sob, n/v fever, chills Last Recorded Vitals Blood pressure 99/67, pulse 88, temperature 37.5 C (99.5 F), temperature source Temporal, resp. rate 15, height 1.753 m (5' 9), weight 81.3 kg (179 lb 3.7 oz), SpO2 96%. Intake/Output Last 3 Shifts I/O last 3 completed shifts: In: 339.1 (4.2 mL/kg) [P.O.:240; I.V.:99.1 (1.2 mL/kg)] Out: - (0 mL/kg) Weight: 81.3 kg Lines Recent Labs CMP: Results from last 7 days Lab Units 08/16/24 0529 08/15/24 0526 08/14/24 0510 08/13/24 0514 08/12/24 2002 08/12/24 0606 08/11/24 0417 08/10/24 1342 SODIUM mmol/L 132* 134* 130* 130* 132* 136 137 141 POTASSIUM mmol/L 4.0 4.4 3.6 4.0 4.0 4.2 4.1 3.6 CHLORIDE mmol/L 102 101 100 101 102 105 107 112* CO2 mmol/L 22 25 22 21 21 25 22 23 ANION GAP mmol/L 12 12 12 12 13 10 12 10 BUN mg/dL 40* 41* 39* 37* 34* 29* 24* 21 CREATININE mg/dL 0.81 0.86 0.79 0.88 0.92 0.64 0.76 0.73 EGFR mL/min/1.73m*2 76 71 79 69 65 >90 82 86 MAGNESIUM mg/dL 2.34 2.37 2.22 -- 2.90* 1.87 2.16 2.39 ALBUMIN g/dL 3.0* 3.2* 3.1* 3.4 3.4 3.4 3.6 3.4 CBC: Results from last 7 days Lab Units 08/16/24 0528 08/15/24 0526 08/14/24 0510 08/13/24 0514 08/12/24 1812 08/12/24 1451 08/12/24 0606 08/12/24 0140 08/11/24 0417 WBC AUTO x10*3/uL 10.2 10.3 11.9* 17.1* 19.2* 19.2* -- 12.4* 11.0 9.5 HEMOGLOBIN g/dL 8.5* 8.7* 9.0* 9.9* 10.3* 10.3* 10.3* 9.0* 9.0* 7.6* HEMATOCRIT % 25.2* 26.6* 24.9* 28.0* 30.2* 30.2* 30.1* 27.7* 25.4* 23.6* PLATELETS AUTO x10*3/uL 287 283 224 247 237 237 -- 186 182 230 MCV fL 90 91 83 87 88 88 -- 91 85 93 COAG: Results from last 7 days Lab Units 08/12/24 1654 08/10/24 1454 08/10/24 1200 INR 1.5* 1.3* 1.7* HEME/ENDO: CARDIAC: Imaging XR chest 1 view Final Result 1. Patchy bibasilar opacities may represent atelectasis, edema, aspiration, or infection. 2. Small left pleural effusion. MACRO: None Signed by: Lenard Munguia 08/14/2024 8:07 AM Dictation workstation: [id number] XR chest 1 view Final Result 1. Near-total resolution of the right apical pneumothorax with question of tiny residual. 2. Persistent left basilar effusion and infiltrate for which continued follow-up recommended. Question subtle right basilar infiltrate. MACRO: None Signed by: Chirag Ortega 08/13/2024 8:06 AM Dictation workstation: [id number] XR chest 1 view Final Result 1. Stable exam. Small right apical pneumothorax. MACRO: None Signed by: Lenard Munguia 08/12/2024 6:05 PM Dictation workstation: [id number] Transthoracic Echo (TTE) Limited Final Result XR chest 1 view Final Result Recent heart surgery. Stable right IJ vein catheter and bibasilar chest tubes. Decrease in size of now tiny right apical pneumothorax. Stable pleural and parenchymal opacities at the left base. Stable atelectasis at the medial right lung base. Cardiomegaly. MACRO: None Signed by: Rob Hussein 08/12/2024 8:04 AM Dictation workstation: [id number] XR chest 1 view Final Result Recent heart surgery. ET tube and NG [...] Rob Hussein 08/11/2024 8:18 AM Dictation workstation: [id number] XR chest 1 view Final Result Status post sternotomy with multiple support devices in place as above. Questionable small left apical pneumothorax. Sgaa-cylbjvr-usuo-right basilar infiltrates or atelectasis. MACRO: None. Signed by: Fernanda Lambert 08/10/2024 2:44 PM Dictation workstation: [id number] Anesthesia Intraoperative Transesophageal Echocardiogram Final Result Medications Scheduled medications aspirin, 81 mg, oral, Daily enoxaparin, 40 mg, subcutaneous, q24h KEYANNA insulin lispro, 0-15 Units, subcutaneous, Before meals & nightly ipratropium-albuteroL, 3 mL, nebulization, 4x daily metoprolol tartrate, 12.5 mg, oral, BID multivitamin with minerals iron-free, 1 tablet, oral, Daily [Held by provider] polyethylene glycol, 17 g, oral, Daily pravastatin, 20 mg, oral, Nightly [Held by provider] sennosides-docusate sodium, 2 tablet, oral, BID sodium chloride, 3 mL, nebulization, 4x daily Continuous medications PRN medications PRN medications: acetaminophen, benzonatate, dextromethorphan-guaifenesin, naloxone, ondansetron ODT OR ondansetron, oxyCODONE, oxyCODONE, oxygen, simethicone, traZODone Assessment/Plan Principal Problem: Aneurysm of ascending aorta without rupture ([facility]) Active Problems: Acute respiratory distress syndrome (ARDS) (Multi) 73 y.o. F PMHx of Ascending aortic aneurysm with mild AI, breast CA, CKD II, pre-DM, diverticulitis, GERD, HLD, and HTN now s/p ascending Ao replacement ([employer]), LAAC (45mm Atriclip), and pericardial window 08/10/[address] Galloway. Neuro: # Acute postop pain well controlled - Serial neuro and pain assessments - Analgesia: PRN Tylenol & Oxy - PT/OT/MITT - Olopatadine eye gtts as needed - Trazodone for Sleep CV: # Asc Ao aneurysm s/p Asc Ao replacement with LAAC 08/[address] Galloway. Normal biV pre and post CPB, new LBBB # H/O HTN, HLD # Vasodilatory hypotension resolved # Post op Afib RVR->NSR-> Accelerated junctional- > NSR EP wires capped - Cont EKG, NIBP - Maintain MAP >65, - Continue ASA, statin - Metoprolol 12.5 mg bid titrate as HDs permit - Hold home irbesartan, spironolactone for now Pulm: # Acute hypoxic respiratory failure moderate ARDS P/F ratio 162 requiring Airvo- resolved now on 1-2L NC Sats >96% Chest tubes removed POD#4 - Wean FiO2 to SpO2 > 90% - BPH - 3% saline nebs w/ Duoneb GI: Poor po Intake, +BM,+flatus # H/O Diverticulitis # LLQ intermittent abd pain- resolved - Regular Diet - DC Mitchel per patient request, add Ensure - Bowel regimen- hold d/t frequent soft stool - Gas X - GI ppx: not indicated - Zofran PRN /Renal: Voiding unable to measure # H/O Stage II CKD (baseline Cr 0.9) - RFP daily, replete lytes per protocol - I&O - Lasix 20 x1 and 40 meq potassium Heme/Onc: # Acute blood loss anemia, zoie-op coagulopathy. POD#2 S/P 2 units prbc # Hx breast CA s/p lumpectomy and XRT - CBC daily and as needed - DVTppx: SCDs, Lovenox - MVI Endo: Pre DM with last A1c 5.9 - POCT BG, ISS achs - Maintain BG < 180. Hypoglycemia protocol ID: Leukocytosis resolved - Trend temp, WBCs - Periop abx cefaz x 48 hrs completed Dispo: Transition SDU today home early to mid week Discussed plan with Dr Galloway, Bedside RN, patient and all in agreement This critically ill patient continues to be at-risk for clinically significant deterioration / failure due to the above mentioned dysfunctional, unstable organ systems. I have personally identified and managed all complex critical care issues with efforts to prevent aforementioned clinical deterioration. Critical care time is spent at bedside and/or the immediate area and has included, but is notlimited to, the review of diagnostic tests, labs, radiographs, serial assessments of hemodynamics, respiratory status, ventilatory management, and family updates. Time spent in procedures and teaching are reported separately. CRITICAL CARE TIME: 45 minutes JESSE Wilks * Misti Saha, OT - 08/15/2024 2:09 PM EST Occupational Therapy Occupational Therapy Treatment Name: Karla Cai Department: [place] [id number] ICU Room: [address] [place] [address] Date: 08/15/24 Time Calculation Start Time: 1147 Stop Time: 1211 Time Calculation (min): 24 min Assessment: Plan: Treatment Interventions: ADL retraining, Functional transfer training, Endurance training, Patient/family training, Neuromuscular reeducation OT Frequency: 3 times per week OT Discharge Recommendations: Moderate intensity level of continued care Equipment Recommended upon Discharge: Wheeled walker OT Recommended Transfer Status: Minimal assist OT - OK to Discharge: Yes Subjective Previous Visit Info: OT Last Visit OT Received On: 08/15/24 General: General Reason for Referral: s/p Ascending aorta repair with LAAC 08/[address] Galloway. Normal biV pre and post CPB, new LBBB Referred By: Pack, DO Past Medical History Relevant to Rehab: Past Medical History: Diagnosis Date Allergic rhinitis Aortic regurgitation Arthritis bilateral feet Ascending aortic aneurysm (CMS-HCC) Breast cancer (Multi) 2010 s/p lumpectomy,radiation and tamoxifen CKD (chronic kidney disease) stage 2 Diverticulitis no issues since 2018 DM (diabetes mellitus) (Multi) diet controlled GERD (gastroesophageal reflux disease) occasional symptoms HLD (hyperlipidemia) Hypertension Hypokalemia Kidney cyst, acquired Mitral regurgitation Osteopenia Tricuspid regurgitation Co-Treatment: PT Co-Treatment Reason: for maximal pt safety and participation Prior to Session Communication: Bedside nurse Patient Position Received: Alarm off, not on at start of session, Up in chair, Alarm off, caregiverpresent Preferred Learning Style: auditory, kinesthetic, verbal, visual, written General Comment: Pt pleasant and agreeable to OT tx. Pt limited due to mild lightheadedness and fatigue with activities. Pt with only NC for supplemental O2 (2 L/min) and telemetry lines in place at this time. No need for subsequent cotreat sessions Precautions: Medical Precautions: Cardiac precautions, Fall precautions Post-Surgical Precautions: Move in the Tube Precautions Comment: reviewed precautions concurrent with activity Vital Signs (Past 2hrs) Date/Time Vitals Session Patient Position Pulse Resp SpO2 BP MAP (mmHg) 08/15/24 1227 -- -- 90 25 94 % 95/62 72 08/15/24 1300 -- -- 89 18 93 % 84/57 66 Pain Assessment: Pain Assessment Pain Assessment: 0-10 0-10 (Numeric) Pain Score: 3 Pain Type: Surgical pain Pain Location: Chest Pain Orientation: Mid Pain Interventions: Repositioned, Ambulation/increased activity Objective Cognition: Overall Cognitive Status: Within Functional Limits Orientation Level: Oriented X4 Activities of Daily Living: Feeding Feeding Level of Assistance: Independent Feeding Comments: (Pt was able to drink from cup with no assistance.) Grooming Grooming Level of Assistance: Setup Grooming Where Assessed: Chair Grooming Comments: (pt completed oral care and washing face with setup.) UE Bathing UE Bathing Level of Assistance: Moderate assistance UE Bathing Where Assessed: (sitting in chair.) UE Bathing Comments: (Pt required assistance to bathe back.) UE Dressing UE Dressing Level of Assistance: Moderate assistance UE Dressing Where Assessed: Chair UE Dressing Comments: (Assistance to thread bilat arms into gown.) Toileting Toileting Level of Assistance: Maximum assistance Where Assessed: Bedside commode Toileting Comments: Pt req CGA for toilet transfer, TD for PH care and Mod A for CM. Functional Standing Tolerance: Functional Standing Tolerance Time: 8 min Activity: (Brushing Teeth.) Functional Standing Tolerance Comments: (fww cga) Bed Mobility/Transfers: Transfers Transfer: Yes Transfer 1 Transfer From 1: Sit to Transfer to 1: Stand Technique 1: Sit to stand, Stand to sit Transfer Device 1: Cardio-thoracic walker Transfer Level of Assistance 1: Contact guard Trials/Comments 1: (vc's for sequencing) Transfers 2 Transfer From 2: Commode-standard to Transfer to 2: Chair with arms Technique 2: Stand pivot Transfer Device 2: Walker Transfer Level of Assistance 2: Contact guard Trials/Comments 2: (vc's for sequencing) Outcome Measures: [facility] Daily Activity Putting on and taking off regular lower body clothing: A lot Bathing (including washing, rinsing, drying): A lot Putting on and taking off regular upper body clothing: A lot Toileting, which includes using toilet, bedpan or urinal: A lot Taking care of personal grooming such as brushing teeth: A little Eating Meals: None Daily Activity - Total Score: 15 Education Documentation No documentation found. Education Comments No comments found. Goals: Encounter Problems Encounter Problems (Active) ADLs Patient will perform UB and LB bathing with independent level of assistance. (Progressing) Start: 08/11/24 Expected End: 08/25/24 Patient with complete upper body dressing with independent level of assistance donning and doffing all UE clothes with no adaptive equipment while edge of bed (Progressing) Start: 08/11/24 Expected End: 08/25/24 Patient with complete lower body dressing with independent level of assistance donning and doffing all LE clothes with no adaptive equipment while standing (Progressing) Start: 08/11/24 Expected End: 08/25/24 Patient will complete daily grooming tasks brushing teeth and washing face/hair with independent level of assistance and PRN adaptive equipment while standing. (Progressing) Start: 08/11/24 Expected End: 08/25/24 Patient will complete toileting including hygiene clothing management/hygiene with independent level of assistance and raised toilet seat. (Progressing) Start: 08/11/24 Expected End: 08/25/24 BALANCE Pt will maintain dynamic standing balance during ADL task with independent level of assistance in order to demonstrate decreased risk of falling and improved postural control. (Progressing) Start: 08/11/24 Expected End: 08/25/24 TRANSFERS Patient will perform bed mobility independent level of assistance and bed rails in order to improvesafety and independence with mobility (Progressing) Start: 08/11/24 Expected End: 08/25/24 Patient will complete functional transfer to all surfaces with least restrictive device with independent level of assistance. (Progressing) Start: 08/11/24 Expected End: 08/25/24 * Hakeem Carson, PT - 08/15/2024 12:51 PM EST Physical Therapy Physical Therapy Treatment Patient Name: Karla Cai Department: [place] [address] ICU Room: [address] [place] [address] Today's Date: 08/15/2024 Time Calculation Start Time: 1146 Stop Time: 1211 Time Calculation (min): 25 min Assessment/Plan PT Assessment End of Session Communication: Bedside nurse Assessment Comment: PT treatment session focused on transfers and gait training using FWW. Pt demonstrating substantial improvements with only need for 2 L/min O2 and vitals WFL. Pt limited due to fatigue and report of mild lightheadedness. Continue to recommend LOW intensity therapy at DC End of Session Patient Position: Bed, 3 rail up, Alarm on PT Plan Treatment/Interventions: Bed mobility, Transfer training, Gait training, Stair training, Balance training, Neuromuscular re-education, Strengthening, Endurance training, Therapeutic activity, Home exercise program, Positioning, Postural re-education PT Plan: Ongoing PT PT Frequency: 3 times per week PT Discharge Recommendations: Low intensity level of continued care Equipment Recommended upon Discharge: Wheeled walker PT Recommended Transfer Status: Assist x1 PT - OK to Discharge: Yes (PT POC initiated this date) General Visit Information: PT Visit PT Received On: 08/15/24 General Reason for Referral: s/p Ascending aorta repair with LAAC 08/[address] Galloway. Normal biV pre and post CPB, new LBBB Referred By: Pack, DO Past Medical History Relevant to Rehab: Past Medical History: Diagnosis Date Allergic rhinitis Aortic regurgitation Arthritis bilateral feet Ascending aortic aneurysm (CMS-HCC) Breast cancer (Multi) 2010 s/p lumpectomy,radiation and tamoxifen CKD (chronic kidney disease) stage 2 Diverticulitis no issues since 2018 DM (diabetes mellitus) (Multi) diet controlled GERD (gastroesophageal reflux disease) occasional symptoms HLD (hyperlipidemia) Hypertension Hypokalemia Kidney cyst, acquired Mitral regurgitation Osteopenia Tricuspid regurgitation Co-Treatment: OT Co-Treatment Reason: for maximal pt safety and participation Prior to Session Communication: Bedside nurse Patient Position Received: Alarm off, not on at start of session, Up in chair, Alarm off, caregiverpresent General Comment: Pt pleasant and agreeable to PT evaluation. Pt limited due to mild lightheadednessand fatigue with activities. Pt with only NC for supplemental O2 (2 L/min) and telemetry lines in place at this time. No need for subsequent cotreat sessions Subjective Precautions: Precautions Medical Precautions: Cardiac precautions, Fall precautions Post-Surgical Precautions: Move in the Tube Precautions Comment: reviewed precautions concurrent with activity Vital Signs (Past 2hrs) Date/Time Vitals Session Patient Position Pulse Resp SpO2 BP MAP (mmHg) 08/15/24 1100 -- -- 83 16 92 % 80/50 61 08/15/24 1109 -- -- -- -- 92 % -- -- 08/15/24 1146 -- -- 95 -- 94 % -- -- 08/15/24 1200 -- -- 95 23 94 % -- -- Vital Signs Comment: Vitals stable with mobility; BP 105/60 with standing, HR 107-112, RR 13-25 with cues/demo for PLB and slowing pace of breathing; SpO2 96%. Post session in supine with stable vitals response. Objective Pain: Pain Assessment Pain Assessment: 0-10 0-10 (Numeric) Pain Score: 3 Pain Type: Surgical pain (with coughing) Pain Location: Chest Pain Orientation: Mid Pain Interventions: Repositioned, Ambulation/increased activity Cognition: Cognition Overall Cognitive Status: Within Functional Limits Orientation Level: Oriented X4 Coordination: Movements are Fluid and Coordinated: Yes Postural Control: Activity Tolerance: Activity Tolerance Endurance: Tolerates 30 min exercise with multiple rests Treatments: Ambulation/Gait Training Ambulation/Gait Training Performed: Yes Ambulation/Gait Training 1 Surface 1: Level tile Device 1: Rolling walker Assistance 1: Contact guard (x2 for line management) Quality of Gait 1: Decreased step length (reduced colette with multiple standing rest breaks) Comments/Distance (ft) 1: x65ft Transfers Transfer: Yes Transfer 1 Transfer From 1: Sit to Transfer to 1: Stand Technique 1: Sit to stand, Stand to sit Transfer Level of Assistance 1: Contact guard Trials/Comments 1: VCs for sequencing Transfers 2 Transfer From 2: Commode-standard to Transfer to 2: Chair with arms Technique 2: Stand pivot Transfer Device 2: Walker Transfer Level of Assistance 2: Contact guard Trials/Comments 2: VCs for sequencing Outcome Measures: [facility] Basic Mobility Turning from your back to your side while in a flat bed without using bedrails: A little Moving from lying on your back to sitting on the side of a flat bed without using bedrails: A little Moving to and from bed to chair (including a wheelchair): A little Standing up from a chair using your arms (e.g. wheelchair or bedside chair): A little To walk in hospital room: A little Climbing 3-5 steps with railing: A lot Basic Mobility - Total Score: 17 Education Documentation No documentation found. Education Comments No comments found. OP EDUCATION: Encounter Problems Encounter Problems (Active) PT Problem Patient will complete bed mobility with logroll technique, HOB flat and MOD I (Progressing) Start: 08/11/24 Expected End: 08/25/24 Patient will complete all transfers (sit to/from standing, bed to/from chair) with mod I x1 and LRAD, using safe technique. (Progressing) Start: 08/11/24 Expected End: 08/25/24 Patient will ambulate mod I to independent >500 feet in 6 minutes with stable vitals, minimal ally BLUE, and normal gait speed. (Progressing) Start: 08/11/24 Expected End: 08/25/24 Patient will ascend/descend 7 stairs with HR support +/- LRAD and SBA, with adherence to precautions and safe technique (Progressing) Start: 08/11/24 Expected End: 08/25/24 Patient will recall and adhere to MITT precautions independently with all activities. (Progressing) Start: 08/11/24 Expected End: 08/25/24 Pain - Adult Safety LTG - Patient will adhere to hip precautions during ADL's and transfers Start: 08/10/24 LTG - Patient will demonstrate safety requirements appropriate to situation/environment Start: 08/10/24 LTG - Patient will utilize safety techniques Start: 08/10/24 STG - Patient locks brakes on wheelchair Start: 08/10/24 STG - Patient uses call light consistently to request assistance with transfers Start: 08/10/24 STG - Patient uses gait belt during all transfers Start: 08/10/24 Goal 1 Start: 08/10/24 Goal 2 Start: 08/10/24 Goal 3 Start: 08/10/24 * Eh Mckeon, MANAGER HOSPICE-SURGICAL ONCOLOGIST - 08/15/2024 7:06 AM EST Karla Cai is a 73 y.o. female on day 5 of admission presenting with Aneurysm of ascending aorta without rupture ([facility]) Subjective Did not sleep well otherwise no issues Weaned off Airvo now on 2L NC O2 sats >96% NRS 90's Remains off pressors MAP>65 A-line removed this AM Objective Physical Exam Vitals reviewed. Constitutional: General: She is not in acute distress. Appearance: She is weak Comments: Elderly female sitting up in chair, color improved Neck: Comments: [facility] [place] CVC Cardiovascular: Rate and Rhythm: Regular Pulses: Normal pulses. Comments: MSI stable w/o click, well approximated w/o drainage or hematoma NSR 90's EP pacer vvi 40 Pulmonary: Breath sounds: No stridor. No wheezing or rhonchi. Comments: Shallow respirations, Equal chest rise, Chest tube site dressing C/D/I NC 2L Abdominal: Palpations: Abdomen is soft. Genitourinary: Comments: voiding s/p carlson Musculoskeletal: Right lower leg: no edema present. Left lower leg: no edema present. Skin: General: Skin is warm and dry. Coloration: Skin is pink Neurological: General: No focal deficit present. Mental Status: She is alert and oriented to person, place, and time. Psychiatric: Mood and Affect: Mood normal. Behavior: Behavior normal. Judgment: Judgment normal. Review of Systems Denies chest pain, palpations, light headedness, dizziness sob, n/v fever, chills Last Recorded Vitals Blood pressure 97/71, pulse 93, temperature 36.2 C (97.2 F), temperature source Temporal, resp. rate 17, height 1.753 m (5' 9), weight 81.3 kg (179 lb 3.7 oz), SpO2 97%. Intake/Output Last 3 Shifts I/O last 3 completed shifts: In: 77048.2 (275.4 mL/kg) [P.O.:960; I.V.:922.9 (11.4 mL/kg); Blood:40929.3] Out: 675 (8.3 mL/kg) [Urine:395 (0.1 mL/kg/hr); Chest Tube:280] Weight: 81.3 kg Lines CVC 08/10/24 Double lumen Right Internal jugular (Active) Placement Date/Time: 08/10/24 (c) 0810 Hand Hygiene Performed Prior to CVC Insertion: Yes Site Prep: Chlorhexidine Site Prep Agent has Completely Dried Before Insertion: Yes All 5 Sterile Barriers Used (Gloves, Gown, Cap, Mask, Large Sterile Jen... Number of days: 4 Recent Labs CMP: Results from last 7 days Lab Units 08/15/24 0526 08/14/24 0510 08/13/24 0514 08/12/24 2002 08/12/24 0606 08/11/24 0417 08/10/24 1342 SODIUM mmol/L 134* 130* 130* 132* 136 137 141 POTASSIUM mmol/L 4.4 3.6 4.0 4.0 4.2 4.1 3.6 CHLORIDE mmol/L 101 100 101 102 105 107 112* CO2 mmol/L 25 22 21 21 25 22 23 ANION GAP mmol/L 12 12 12 13 10 12 10 BUN mg/dL 41* 39* 37* 34* 29* 24* 21 CREATININE mg/dL 0.86 0.79 0.88 0.92 0.64 0.76 0.73 EGFR mL/min/1.73m*2 71 79 69 65 >90 82 86 MAGNESIUM mg/dL 2.37 2.22 -- 2.90* 1.87 2.16 2.39 ALBUMIN g/dL 3.2* 3.1* 3.4 3.4 3.4 3.6 3.4 CBC: Results from last 7 days Lab Units 08/15/24 0526 08/14/24 0510 08/13/24 0514 08/12/24 1812 08/12/24 1451 08/12/24 0606 08/12/24 0140 08/11/24 0417 08/10/24 1544 WBC AUTO x10*3/uL 10.3 11.9* 17.1* 19.2* 19.2* -- 12.4* 11.0 9.5 13.6* HEMOGLOBIN g/dL 8.7* 9.0* 9.9* 10.3* 10.3* 10.3* 9.0* 9.0* 7.6* 9.0* HEMATOCRIT % 26.6* 24.9* 28.0* 30.2* 30.2* 30.1* 27.7* 25.4* 23.6* 27.5* PLATELETS AUTO x10*3/uL 283 224 247 237 237 -- 186 182 230 286 MCV fL 91 83 87 88 88 -- 91 85 93 94 COAG: Results from last 7 days Lab Units 08/12/24 1654 08/10/24 1454 08/10/24 1200 INR 1.5* 1.3* 1.7* HEME/ENDO: CARDIAC: Imaging XR chest 1 view Final Result 1. Patchy bibasilar opacities may represent atelectasis, edema, aspiration, or infection. 2. Small left pleural effusion. MACRO: None Signed by: Lenard Munguia 08/14/2024 8:07 AM Dictation workstation: [id number] XR chest 1 view Final Result 1. Near-total resolution of the right apical pneumothorax with question of tiny residual. 2. Persistent left basilar effusion and infiltrate for which continued follow-up recommended. Question subtle right basilar infiltrate. MACRO: None Signed by: Chirag Ortega 08/13/2024 8:06 AM Dictation workstation: [id number] XR chest 1 view Final Result 1. Stable exam. Small right apical pneumothorax. MACRO: None Signed by: Lenard Munguia 08/12/2024 6:05 PM Dictation workstation: [id number] Transthoracic Echo (TTE) Limited Final Result XR chest 1 view Final Result Recent heart surgery. Stable right IJ vein catheter and bibasilar chest tubes. Decrease in size of now tiny right apical pneumothorax. Stable pleural and parenchymal opacities at the left base. Stable atelectasis at the medial right lung base. Cardiomegaly. MACRO: None Signed by: Rob Hussein 08/12/2024 8:04 AM Dictation workstation: [id number] XR chest 1 view Final Result Recent heart surgery. ET tube and NG [...] Rob Hussein 08/11/2024 8:18 AM Dictation workstation: [id number] XR chest 1 view Final Result Status post sternotomy with multiple support devices in place as above. Questionable small left apical pneumothorax. Ijdr-uyldztg-kzwj-right basilar infiltrates or atelectasis. MACRO: None. Signed by: Fernanda Lambert 08/10/2024 2:44 PM Dictation workstation: [id number] Anesthesia Intraoperative Transesophageal Echocardiogram Final Result Medications Scheduled medications aspirin, 81 mg, oral, Daily enoxaparin, 40 mg, subcutaneous, q24h KEYANNA insulin lispro, 0-15 Units, subcutaneous, Before meals & nightly ipratropium-albuteroL, 3 mL, nebulization, 4x daily metoprolol tartrate, 12.5 mg, oral, BID polyethylene glycol, 17 g, oral, Daily pravastatin, 20 mg, oral, Nightly sennosides-docusate sodium, 2 tablet, oral, BID sodium chloride, 3 mL, nebulization, 4x daily Continuous medications vasopressin, 0.03 Units/min, Last Rate: Stopped (08/14/24 1330) PRN medications PRN medications: acetaminophen, alteplase, benzonatate, HYDROmorphone, naloxone, ondansetron ODT OR ondansetron, oxyCODONE, oxyCODONE, oxygen, simethicone Assessment/Plan Principal Problem: Aneurysm of ascending aorta without rupture ([facility]) Active Problems: Acute respiratory distress syndrome (ARDS) (Multi) 73 y.o. F PMHx of Ascending aortic aneurysm with mild AI, breast CA, CKD II, pre-DM, diverticulitis, GERD, HLD, and HTN now s/p ascending Ao replacement ([employer]), LAAC (45mm Atriclip), and pericardial window 08/10/[address] Galloway. Neuro: # Acute postop pain well controlled - Serial neuro and pain assessments - Analgesia: PRN Tylenol & Oxy - PT/OT/MITT - Olopatadine eye gtts as needed - Trazodone for Sleep CV: # Asc Ao aneurysm s/p Asc Ao replacement with LAAC 08/[address] Galloway. Normal biV pre and post CPB, new LBBB # H/O HTN, HLD # Vasodilatory hypotension. Low dose VasO # Post op Afib RVR->NSR-> Accelerated junctional- > NSR - Cap EP wires - Maintain Pacer VVI 50 - Cont EKG, ABP - Maintain MAP >65, - Continue ASA, statin - Metoprolol 12.5 mg bid titrate as HDs permit - Hold home irbesartan, spironolactone for now Pulm: # Acute hypoxic respiratory failure moderate ARDS P/F ratio 162 requiring Airvo- resolved now on 6LNC Sats >96% Chest tubes removed POD#4 - Wean FiO2 to SpO2 > 90% - BPH - 3% saline nebs w/ Duoneb GI: Poor po Intake, +BM,+flatus # H/O Diverticulitis # LLQ intermittent abd pain- resolved - Regular Diet - DC Mitchel per patient request, add Ensure - Bowel regimen- hold d/t frequent soft stool - Gas X - GI ppx: not indicated - Zofran PRN /Renal: # H/O Stage II CKD (baseline Cr 0.9) - RFP daily, replete lytes per protocol - I&O Heme/Onc: # Acute blood loss anemia, zoie-op coagulopathy. POD#2 S/P 2 units prbc # Hx breast CA s/p lumpectomy and XRT - CBC daily and as needed - DVTppx: SCDs, Lovenox Endo: Pre DM with last A1c 5.9 - POCT BG, ISS achs - Maintain BG < 180. Hypoglycemia protocol ID: Leukocytosis resolved - Trend temp, WBCs - Periop abx cefaz x 48 hrs completed Dispo: maintain ICU today likely SDU tomorrow home early to mid next week Discussed plan with Dr Galloway, Dr Phillips, Bedside RN, patient and all in agreeemnt This critically ill patient continues to be at-risk for clinically significant deterioration / failure due to the above mentioned dysfunctional, unstable organ systems. I have personally identified and managed all complex critical care issues with efforts to prevent aforementioned clinical deterioration. Critical care time is spent at bedside and/or the immediate area and has included, but is notlimited to, the review of diagnostic tests, labs, radiographs, serial assessments of hemodynamics, respiratory status, ventilatory management, and family updates. Time spent in procedures and teaching are reported separately. CRITICAL CARE TIME: 60 minutes JESSE Wilks * Jessy Hernández, PT - 08/14/2024 5:51 PM EST Physical Therapy Physical Therapy Treatment Patient Name: Karla Cai Department: [place] [id number] ICU Room: [address] [place] [address] Today's Date: 08/14/2024 Time Calculation Start Time: 1441 Stop Time: 1519 Time Calculation (min): 38 min Assessment/Plan PT Assessment PT Assessment Results: Decreased strength, Decreased endurance, Impaired balance, Decreased mobility, Pain Rehab Prognosis: Good Barriers to Discharge: patient to recieve ongoing medical and PT interventions postop Evaluation/Treatment Tolerance: Patient limited by fatigue Medical Staff Made Aware: Yes Strengths: Ability to acquire knowledge, Attitude of self, Insight into problems, Premorbid level of function, Support and attitude of living partners Barriers to Participation: Comorbidities End of Session Communication: Bedside nurse (JESSE Gamez discussed pt's current medical status and anticipiated LOS, with respect to PT goals and anticipated outcomes) Assessment Comment: Patient seen for follow up visit, POD #4 s/p replacement of ascending aorta with postop complications requiring prolonged chest tube, a line, pressor support, CVP monitoring and airvo support. Patient able to complete mobility this date without pressor support and stable vitals. Demonstrated some effects of deconditioning. Based on her current performance, it is hopeful for ptto continue to progress her functional mobility with ongoing medical stability over the next several days. She will benefit from ongoing PT interventions to maximize her safety and promote functionalI. End of Session Patient Position: Bed, 3 rail up, Alarm off, caregiver present PT Plan Treatment/Interventions: Bed mobility, Transfer training, Gait training, Stair training, Balance training, Neuromuscular re-education, Strengthening, Endurance training, Therapeutic activity, Home exercise program, Positioning, Postural re-education PT Plan: Ongoing PT PT Frequency: 5 times per week PT Discharge Recommendations: Low intensity level of continued care Equipment Recommended upon Discharge: Wheeled walker PT Recommended Transfer Status: Assist x2, Assistive device PT - OK to Discharge: Yes General Visit Information: PT Visit PT Received On: 08/14/24 Response to Previous Treatment: Patient reporting fatigue but able to participate. General Reason for Referral: s/p Ascending aorta repair with LAAC 08/[address] Galloway. Normal biV pre and post CPB, new LBBB Referred By: Pack, DO Past Medical History Relevant to Rehab: Past Medical History: Diagnosis Date Allergic rhinitis Aortic regurgitation Arthritis bilateral feet Ascending aortic aneurysm (CMS-HCC) Breast cancer (Multi) 2010 s/p lumpectomy,radiation and tamoxifen CKD (chronic kidney disease) stage 2 Diverticulitis no issues since 2018 DM (diabetes mellitus) (Multi) diet controlled GERD (gastroesophageal reflux disease) occasional symptoms HLD (hyperlipidemia) Hypertension Hypokalemia Kidney cyst, acquired Mitral regurgitation Osteopenia Tricuspid regurgitation Family/Caregiver Present: Yes Caregiver Feedback: , Dominic present and engaged Co-Treatment: OT Co-Treatment Reason: seen with OT to maximize patient's participation and safety with functional I Prior to Session Communication: Bedside nurse (RNs Rita and STACEY present and supportive with mangement of lines and tubes) Patient Position Received: Up in chair, Alarm off, not on at start of session, Alarm off, caregiverpresent Preferred Learning Style: auditory, kinesthetic, verbal, visual, written General Comment: Patient on 40L/40% FiO2 via Airvo; BPs stable off vaso for ~1 hour prior to session. Pt remained with A-line, Chest tube, pacer, RIJ TLC with CVP monitoring. Per Padmini Soto, MANAGER HOSPICE-SURGICAL ONCOLOGIST, ok to remove chest tubes following session. Subjective Precautions: Precautions Medical Precautions: Cardiac precautions, Fall precautions, Oxygen therapy device and L/min Post-Surgical Precautions: Move in the Tube Precautions Comment: reviewed precautions concurrent with activity Vital Signs (Past 2hrs) Date/Time Vitals Session Patient Position Pulse Resp SpO2 BP MAP (mmHg) 08/14/24 1600 -- -- 101 18 96 % 114/67 81 08/14/24 1615 -- -- 99 16 95 % 105/66 79 Vital Signs Comment: Vitals stable with mobility; BP 105/60 with standing, HR 107-112, RR 13-25 with cues/demo for PLB and slowing pace of breathing; SpO2 96%. Post session in supine with stable vitals response. Objective Pain: Pain Assessment Pain Assessment: 0-10 0-10 (Numeric) Pain Score: 3 Pain Type: Surgical pain, Acute pain Pain Location: Chest Pain Orientation: Mid, Lower, Left, Right Pain Descriptors: Aching, Pressure Pain Frequency: Constant/continuous Pain Onset: Ongoing Clinical Progression: Not changed Pain Interventions: Compression, Repositioned, Ambulation/increased activity, Distraction, Relaxation technique, Rest Response to Interventions: Content/relaxed Cognition: Cognition Overall Cognitive Status: Within Functional Limits Orientation Level: Oriented X4 Coordination: Movements are Fluid and Coordinated: Yes Postural Control: Postural Control Postural Control: Within Functional Limits Static Sitting Balance Static Sitting-Balance Support: Bilateral upper extremity supported, Feet supported Static Sitting-Level of Assistance: Close supervision Static Sitting-Comment/Number of Minutes: good balance Dynamic Sitting Balance Dynamic Sitting-Balance Support: Bilateral upper extremity supported, Feet supported Dynamic Sitting-Level of Assistance: Contact guard, Close supervision Dynamic Sitting-Balance: Reaching for objects, Trunk control activities, Forward lean, Lateral lean Dynamic Sitting-Comments: fair+ balance; postural corrections provided Static Standing Balance Static Standing-Balance Support: Bilateral upper extremity supported Static Standing-Level of Assistance: Moderate assistance Static Standing-Comment/Number of Minutes: fair- balance Dynamic Standing Balance Dynamic Standing-Balance Support: Bilateral upper extremity supported Dynamic Standing-Level of Assistance: Moderate assistance Dynamic Standing-Balance: Lateral lean, Forward lean, Reaching for objects, Turning Dynamic Standing-Comments: patient with fatigue in trunk related to impaired mobility/fluctuating medical status since surgery Extremity/Trunk Assessments: Cervical Spine Cervical Spine: Within Functional Limits Lumbar Spine Lumbar Spine : Within Functional Limits RUE RUE : Within Functional Limits LUE LUE: Within Functional Limits RLE RLE : Within Functional Limits LLE LLE : Within Functional Limits Activity Tolerance: Activity Tolerance Endurance: Tolerates 30 min exercise with multiple rests Early Mobility/Exercise Safety Screen: Proceed with mobilization - No exclusion criteria met Activity Tolerance Comments: fair activity tolerance without pressor support Treatments: Therapeutic Exercise Therapeutic Exercise Performed: Yes Therapeutic Exercise Activity 1: AP, LAQ and marching completed intermittently to assist with venous return in prep for mobility/change in position 1-2 minutes each. Therapeutic Activity Therapeutic Activity Performed: Yes Therapeutic Activity 1: purse lip and paced breathing technqiues completed with cues; good carryover with occasional reminders. initiated splinted diaphragmatic excursion as pt currently heavily reliant on accessory muscle breathing. pt completed trial following instruction from PT. Therapeutic Activity 2: postural corrections with static standing x3-4 minutes, 3 trials during session. pt with min A to CGA with BUE support on nezzie walker support; ongoing cues for posture and vitals/breathing techniques Bed Mobility Bed Mobility: Yes Bed Mobility 1 Bed Mobility 1: Sitting to supine, Log roll, Rolling right, Scooting Level of Assistance 1: Moderate assistance, +2, +1 to manage equipment, Maximum tactile cues, Maximum verbal cues Bed Mobility Comments 1: increased time and cues; physical support of BLE concurrent with OT guiding trunk into L sidelying. pt assisted with rolling and repositioning; bed in partial chair position Ambulation/Gait Training Ambulation/Gait Training Performed: Yes Ambulation/Gait Training 1 Surface 1: Level tile Device 1: Thoracic walker (nezzie walker) Assistance 1: Set up, Moderate assistance, Maximum tactile cues, Maximum verbal cues Quality of Gait 1: Narrow base of support, Diminished heel strike, Inconsistent stride length, Decreased step length, Forward flexed posture, Antalgic, Soft knee(s) Comments/Distance (ft) 1: 5 feet then pt seated on BSC following transfer from chair. pt then ambulated ~7 feet to bed with increased time and effort. RNs present to assist with management of multiple lines/tubes. Provided with ongoing monitoring of pt's hemodynamic stability and presentation conucrrent with activity. Transfers Transfer: Yes Transfer 1 Transfer From 1: Chair with arms to Transfer to 1: Commode-standard Technique 1: Sit to stand, Stand to sit, To left Transfer Device 1: Cardio-thoracic walker Transfer Level of Assistance 1: Set up, Minimum assistance, +2, +1 to manage equipment, Moderate tactile cues, Maximum verbal cues Trials/Comments 1: instruction for splinting with pillow support, sequencing and safety. Transfers 2 Transfer From 2: Commode-standard to Transfer to 2: Bed Technique 2: Sit to stand, Stand to sit, To left Transfer Device 2: Cardio-thoracic walker Transfer Level of Assistance 2: Minimum assistance, +2, +1 to manage equipment, Moderate tactile cues, Maximum verbal cues Trials/Comments 2: ongoing cues for sequencing and postural corrections Outcome Measures: [facility] Basic Mobility Turning from your back to your side while in a flat bed without using bedrails: A lot Moving from lying on your back to sitting on the side of a flat bed without using bedrails: A lot Moving to and from bed to chair (including a wheelchair): A lot Standing up from a chair using your arms (e.g. wheelchair or bedside chair): A lot To walk in hospital room: A lot Climbing 3-5 steps with railing: Total Basic Mobility - Total Score: 11 FSS-ICU Ambulation: Walks <50 feet with any assistance x1 or walks any distance with assistance x2 people Rolling: Moderate assistance (performs 50 - 74% of task) Sitting: Supervision or set-up only Transfer [id number]: Moderate assistance (performs 50 - 74% of task) Transfer [id number]: Total assistance (performs 25% or requires another person) Total Score: 13 Early Mobility/Exercise Safety Screen: Proceed with mobilization - No exclusion criteria met ICU Mobility Scale: Transferring bed to chair [5] Education Documentation Handouts, taught by Jessy Hernández, PT at 08/14/2024 5:48 PM. Learner: Significant Other, Patient Readiness: Acceptance Method: Explanation, Demonstration Response: Verbalizes Understanding, Demonstrated Understanding Comment: reviewed breathing technqiues, postural corrections, transfer & gait training, logroll. interpretation of vitals response -extended rest breaks between activity to ensure recovery. progressive mobility pending ongoing medical stability. Precautions, taught by Jessy Hernández PT at 08/14/2024 5:48 PM. Learner: Significant Other, Patient Readiness: Acceptance Method: Explanation, Demonstration Response: Verbalizes Understanding, Demonstrated Understanding Comment: reviewed breathing technqiues, postural corrections, transfer & gait training, logroll. interpretation of vitals response -extended rest breaks between activity to ensure recovery. progressive mobility pending ongoing medical stability. Body Mechanics, taught by Jessy Hernández PT at 08/14/2024 5:48 PM. Learner: Significant Other, Patient Readiness: Acceptance Method: Explanation, Demonstration Response: Verbalizes Understanding, Demonstrated Understanding Comment: reviewed breathing technqiues, postural corrections, transfer & gait training, logroll. interpretation of vitals response -extended rest breaks between activity to ensure recovery. progressive mobility pending ongoing medical stability. Home Exercise Program, taught by Jessy Hernández PT at 08/14/2024 5:48 PM. Learner: Significant Other, Patient Readiness: Acceptance Method: Explanation, Demonstration Response: Verbalizes Understanding, Demonstrated Understanding Comment: reviewed breathing technqiues, postural corrections, transfer & gait training, logroll. interpretation of vitals response -extended rest breaks between activity to ensure recovery. progressive mobility pending ongoing medical stability. Mobility Training, taught by Jessy Hernández, PT at 08/14/2024 5:48 PM. Learner: Significant Other, Patient Readiness: Acceptance Method: Explanation, Demonstration Response: Verbalizes Understanding, Demonstrated Understanding Comment: reviewed breathing technqiues, postural corrections, transfer & gait training, logroll. interpretation of vitals response -extended rest breaks between activity to ensure recovery. progressive mobility pending ongoing medical stability. Education Comments No comments found. OP EDUCATION: Encounter Problems Encounter Problems (Active) PT Problem Patient will complete bed mobility with logroll technique, HOB flat and MOD I (Progressing) Start: 08/11/24 Expected End: 08/25/24 Patient will complete all transfers (sit to/from standing, bed to/from chair) with mod I x1 and LRAD, using safe technique. (Progressing) Start: 08/11/24 Expected End: 08/25/24 Patient will ambulate mod I to independent >500 feet in 6 minutes with stable vitals, minimal ally BLUE, and normal gait speed. (Progressing) Start: 08/11/24 Expected End: 08/25/24 Patient will ascend/descend 7 stairs with HR support +/- LRAD and SBA, with adherence to precautions and safe technique (Progressing) Start: 08/11/24 Expected End: 08/25/24 Patient will recall and adhere to MITT precautions independently with all activities. (Progressing) Start: 08/11/24 Expected End: 08/25/24 Pain - Adult Safety LTG - Patient will adhere to hip precautions during ADL's and transfers Start: 08/10/24 LTG - Patient will demonstrate safety requirements appropriate to situation/environment Start: 08/10/24 LTG - Patient will utilize safety techniques Start: 08/10/24 STG - Patient locks brakes on wheelchair Start: 08/10/24 STG - Patient uses call light consistently to request assistance with transfers Start: 08/10/24 STG - Patient uses gait belt during all transfers Start: 08/10/24 Goal 1 Start: 08/10/24 Goal 2 Start: 08/10/24 Goal 3 Start: 08/10/24 * Rolo Hodgson, OT - 08/14/2024 4:11 PM EST Occupational Therapy Occupational Therapy Treatment Name: Karla Cai Department: [place] [id number] ICU Room: [address] [place] [address] Date: 08/14/24 Time Calculation Start Time: 1440 Stop Time: 1518 Time Calculation (min): 38 min Assessment: OT Assessment: (Patient seen for follow up treatment, patient doing better, however requires rest periods due to increased anxiety. Patient with decreased ADLs, decreased transfers, decreased Activity tolerance. LOW intensity therapy to maximize functional independence.) Prognosis: Good Barriers to Discharge: Inaccessible home environment Evaluation/Treatment Tolerance: Patient limited by fatigue Medical Staff Made Aware: Yes End of Session Communication: Bedside nurse End of Session Patient Position: Up in chair, Alarm on Plan: Treatment Interventions: ADL retraining, Functional transfer training, Endurance training, Patient/family training, Neuromuscular reeducation OT Frequency: 3 times per week OT Discharge Recommendations: Moderate intensity level of continued care Equipment Recommended upon Discharge: Wheeled walker OT Recommended Transfer Status: Minimal assist OT - OK to Discharge: Yes Subjective Previous Visit Info: OT Last Visit OT Received On: 08/14/24 General: General Reason for Referral: s/p Ascending aorta repair with LAAC 08/[address] Galloway. Normal biV pre and post CPB, new LBBB Referred By: (DO Ranjan) Past Medical History Relevant to Rehab: Past Medical History: Diagnosis Date Allergic rhinitis Aortic regurgitation Arthritis bilateral feet Ascending aortic aneurysm (CMS-HCC) Breast cancer (Multi) 2010 s/p lumpectomy,radiation and tamoxifen CKD (chronic kidney disease) stage 2 Diverticulitis no issues since 2018 DM (diabetes mellitus) (Multi) diet controlled GERD (gastroesophageal reflux disease) occasional symptoms HLD (hyperlipidemia) Hypertension Hypokalemia Kidney cyst, acquired Mitral regurgitation Osteopenia Tricuspid regurgitation Family/Caregiver Present: Yes Caregiver Feedback: (Spouse present and receptive to therapy) Co-Treatment: PT Co-Treatment Reason: (To maximize patient participation) Prior to Session Communication: Bedside nurse Patient Position Received: Up in chair General Comment: (Patient making slow progress towards OT Goals, on 40L Airvo and 41% FiO2.) Precautions: Medical Precautions: Cardiac precautions Post-Surgical Precautions: Move in the Tube Pain Assessment: Pain Assessment Pain Assessment: 0-10 0-10 (Numeric) Pain Score: 3 Pain Type: Surgical pain Pain Location: Chest Objective Cognition: Overall Cognitive Status: Within Functional Limits Orientation Level: Oriented X4 Activities of Daily Living: Grooming Grooming Level of Assistance: Contact guard Grooming Where Assessed: (Standing with Nezzie walker) Grooming Comments: (Patient brushed Teeth) UE Dressing UE Dressing Level of Assistance: Moderate assistance UE Dressing Where Assessed: Chair UE Dressing Comments: (Assist with hospital gown around shoulders.) LE Dressing LE Dressing: No (Patient declined pants due to feeling hot.) Functional Standing Tolerance: Functional Standing Tolerance Time: (Stood approximately 3 minutes with CGA engaged in activity with minimal UE support. Patient would occasionally hold onto platform of [employer]. Patient completed grooming task to brush teeth.) Activity: (Brushing Teeth.) Bed Mobility/Transfers: Bed Mobility Bed Mobility: Yes Bed Mobility 1 Bed Mobility 1: Sitting to supine Level of Assistance 1: Moderate verbal cues, Moderate assistance Bed Mobility Comments 1: (Assist with upper trunk and Legs onto bed.) Transfers Transfer: Yes Transfer 1 Transfer From 1: Chair with arms to Transfer to 1: Bed Technique 1: Sit to stand Transfer Device 1: Cardio-thoracic walker Transfer Level of Assistance 1: Minimum assistance Trials/Comments 1: (Cues for hand placement and pursed lip breathing techniques.) Sitting Balance: Static Sitting Balance Static Sitting-Balance Support: Feet supported Static Sitting-Level of Assistance: Independent Dynamic Sitting Balance Dynamic Sitting-Balance Support: Feet supported Dynamic Sitting-Level of Assistance: Close supervision Dynamic Sitting-Balance: Forward lean Standing Balance: Static Standing Balance Static Standing-Balance Support: Bilateral upper extremity supported Static Standing-Level of Assistance: Minimum assistance Outcome Measures: [facility] Daily Activity Putting on and taking off regular lower body clothing: A little Bathing (including washing, rinsing, drying): A lot Putting on and taking off regular upper body clothing: A lot Toileting, which includes using toilet, bedpan or urinal: A lot Taking care of personal grooming such as brushing teeth: A little Eating Meals: None Daily Activity - Total Score: 16 Goals: Encounter Problems Encounter Problems (Active) ADLs Patient will perform UB and LB bathing with independent level of assistance. (Progressing) Start: 08/11/24 Expected End: 08/25/24 Patient with complete upper body dressing with independent level of assistance donning and doffing all UE clothes with no adaptive equipment while edge of bed (Progressing) Start: 08/11/24 Expected End: 08/25/24 Patient with complete lower body dressing with independent level of assistance donning and doffing all LE clothes with no adaptive equipment while standing (Progressing) Start: 08/11/24 Expected End: 08/25/24 Patient will complete daily grooming tasks brushing teeth and washing face/hair with independent level of assistance and PRN adaptive equipment while standing. (Progressing) Start: 08/11/24 Expected End: 08/25/24 Patient will complete toileting including hygiene clothing management/hygiene with independent level of assistance and raised toilet seat. (Progressing) Start: 08/11/24 Expected End: 08/25/24 BALANCE Pt will maintain dynamic standing balance during ADL task with independent level of assistance in order to demonstrate decreased risk of falling and improved postural control. (Progressing) Start: 08/11/24 Expected End: 08/25/24 TRANSFERS Patient will perform bed mobility independent level of assistance and bed rails in order to improvesafety and independence with mobility (Progressing) Start: 08/11/24 Expected End: 08/25/24 Patient will complete functional transfer to all surfaces with least restrictive device with independent level of assistance. (Progressing) Start: 08/11/24 Expected End: 08/25/24 * Vaishali Oseguera RN - 08/14/2024 1:25 PM EST 08/14/24 1325 Discharge Planning Expected Discharge Disposition Home H Patient remains in ICU. Seen up in the chair. Patient is on pressors and she is on Airvo. She has chest tubes. Spoke with SHAYE Rivas and she stated patient will need at leased till middle of next week before discharging. Plan is still to go home with [facility] when medically ready. Will continue to follow for discharge needs. * Eh Mckeon, EDWRAD-SURGICAL ONCOLOGIST - 08/14/2024 7:00 AM EST Karla Cai is a 73 y.o. female on day 4 of admission presenting with Aneurysm of ascending aorta without rupture ([facility]) Subjective Restarted on Vaso and weaned off Levo over night Now NRS 80-90's AM CXR bibasilar atelectasis Airvo 60L 49% morning ABG P/F consistent with moderate ARDS Ambulated to the door and bathroom this morning +BM Reports LLQ abd pain improved with bowel movement Objective Physical Exam Vitals reviewed. Constitutional: General: She is not in acute distress. Appearance: She is ill-appearing however improved Comments: Elderly female sitting up in chair, color improved Neck: Comments: [facility] [place] CVC Cardiovascular: Rate and Rhythm: Regular Pulses: Normal pulses. Comments: MSI stable w/o click, well approximated w/o drainage or hematoma NSR 90's EP pacer vvi 40 Pulmonary: Breath sounds: No stridor. No wheezing or rhonchi. Comments: Shallow respirations, Equal chest rise, Chest tube scant ss output w/o air leak or crepitus Airvo 60L 49% Abdominal: Palpations: Abdomen is soft. Genitourinary: Comments: Indwelling carlson Musculoskeletal: Right lower leg: no Edema present. Left lower leg: no Edema present. Skin: General: Skin is warm and dry. Coloration: Skin is pink Neurological: General: No focal deficit present. Mental Status: She is alert and oriented to person, place, and time. Psychiatric: Mood and Affect: Mood normal. Behavior: Behavior normal. Judgment: Judgment normal. Review of Systems Denies chest pain, palpations, light headedness, dizziness sob, n/v fever, chills Last Recorded Vitals Blood pressure 100/70, pulse 95, temperature 36.3 C (97.3 F), temperature source Temporal, resp. rate 20, height 1.753 m (5' 9), weight 85 kg (187 lb 6.3 oz), SpO2 95%. Intake/Output Last 3 Shifts I/O last 3 completed shifts: In: 4302.8 (50.6 mL/kg) [P.O.:480; I.V.:1522.8 (17.9 mL/kg); Blood:500; IV Piggyback:1800] Out: 2333 (27.4 mL/kg) [Urine:1033 (0.3 mL/kg/hr); Chest Tube:1300] Weight: 85 kg Lines CVC 08/10/24 Double lumen Right Internal jugular (Active) Placement Date/Time: 08/10/24 (c) 0810 Hand Hygiene Performed Prior to CVC Insertion: Yes Site Prep: Chlorhexidine Site Prep Agent has Completely Dried Before Insertion: Yes All 5 Sterile Barriers Used (Gloves, Gown, Cap, Mask, Large Sterile Jen... Number of days: 3 Arterial Line 08/10/24 Right Brachial (Active) Placement Date/Time: 08/10/24 (c) 0750 Size: 20 G Orientation: Right Location: Brachial Securement Method: Transparent dressing Patient Tolerance: Tolerated well Number of days: 3 Urethral Catheter Non-latex 16 Fr. (Active) Placement Date/Time: 08/10/24 1200 Earliest Known Present: 08/10/24 Catheter Type: Non-latex Tube Size (Fr.): 16 Fr. Catheter Balloon Size: 10 mL Urine Returned: Yes Number of days: 3 Chest Tube 1 28 Fr (Active) Placement Date: 08/10/24 Tube Number: 1 Chest Tube Drain Tube Size (Fr): 28 Fr Number of days: 4 Chest Tube 2 24 Fr (Active) Placement Date: 08/10/24 Tube Number: 2 Chest Tube Drain Tube Size (Fr): 24 Fr Number of days: 4 Recent Labs CMP: Results from last 7 days Lab Units 08/14/24 0510 08/13/24 0514 08/12/24 2002 08/12/24 0606 08/11/24 0417 08/10/24 1342 SODIUM mmol/L 130* 130* 132* 136 137 141 POTASSIUM mmol/L 3.6 4.0 4.0 4.2 4.1 3.6 CHLORIDE mmol/L 100 101 102 105 107 112* CO2 mmol/L 22 21 21 25 22 23 ANION GAP mmol/L 12 12 13 10 12 10 BUN mg/dL 39* 37* 34* 29* 24* 21 CREATININE mg/dL 0.79 0.88 0.92 0.64 0.76 0.73 EGFR mL/min/1.73m*2 79 69 65 >90 82 86 MAGNESIUM mg/dL -- -- 2.90* 1.87 2.16 2.39 ALBUMIN g/dL 3.1* 3.4 3.4 3.4 3.6 3.4 CBC: Results from last 7 days Lab Units 08/14/24 0510 08/13/24 0514 08/12/24 1812 08/12/24 1451 08/12/24 0606 08/12/24 0140 08/11/24 0417 08/10/24 1544 08/10/24 1342 WBC AUTO x10*3/uL 11.9* 17.1* 19.2* 19.2* -- 12.4* 11.0 9.5 13.6* 15.8* HEMOGLOBIN g/dL 9.0* 9.9* 10.3* 10.3* 10.3* 9.0* 9.0* 7.6* 9.0* 9.1* HEMATOCRIT % 24.9* 28.0* 30.2* 30.2* 30.1* 27.7* 25.4* 23.6* 27.5* 27.5* PLATELETS AUTO x10*3/uL 224 247 237 237 -- 186 182 230 286 273 MCV fL 83 87 88 88 -- 91 85 93 94 90 COAG: Results from last 7 days Lab Units 08/12/24 1654 08/10/24 1454 08/10/24 1200 INR 1.5* 1.3* 1.7* HEME/ENDO: CARDIAC: Imaging XR chest 1 view Final Result 1. Near-total resolution of the right apical pneumothorax with question of tiny residual. 2. Persistent left basilar effusion and infiltrate for which continued follow-up recommended. Question subtle right basilar infiltrate. MACRO: None Signed by: Chirag Ortega 08/13/2024 8:06 AM Dictation workstation: [id number] XR chest 1 view Final Result 1. Stable exam. Small right apical pneumothorax. MACRO: None Signed by: Lenard Munguia 08/12/2024 6:05 PM Dictation workstation: [id number] Transthoracic Echo (TTE) Limited Final Result XR chest 1 view Final Result Recent heart surgery. Stable right IJ vein catheter and bibasilar chest tubes. Decrease in size of now tiny right apical pneumothorax. Stable pleural and parenchymal opacities at the left base. Stable atelectasis at the medial right lung base. Cardiomegaly. MACRO: None Signed by: Rob Hussein 08/12/2024 8:04 AM Dictation workstation: [id number] XR chest 1 view Final Result Recent heart surgery. ET tube and NG [...] Rob Hussein 08/11/2024 8:18 AM Dictation workstation: [id number] XR chest 1 view Final Result Status post sternotomy with multiple support devices in place as above. Questionable small left apical pneumothorax. Ukxm-ltpdima-vfmm-right basilar infiltrates or atelectasis. MACRO: None. Signed by: Fernanda Lambert 08/10/2024 2:44 PM Dictation workstation: [id number] Anesthesia Intraoperative Transesophageal Echocardiogram Final Result Medications Scheduled medications acetaminophen, 975 mg, oral, q8h aspirin, 81 mg, oral, Daily enoxaparin, 40 mg, subcutaneous, q24h KEYANNA insulin lispro, 0-15 Units, subcutaneous, Before meals & nightly piperacillin-tazobactam, 4.5 g, intravenous, q6h polyethylene glycol, 17 g, oral, Daily pravastatin, 20 mg, oral, Nightly sennosides-docusate sodium, 2 tablet, oral, BID Continuous medications norepinephrine, 0-0.5 mcg/kg/min, Last Rate: Stopped (08/14/24 0400) vasopressin, 0.03 Units/min, Last Rate: 0.03 Units/min (08/14/24 0638) PRN medications PRN medications: alteplase, HYDROmorphone, magnesium sulfate, magnesium sulfate, naloxone, ondansetron ODT OR ondansetron, oxyCODONE, oxyCODONE, oxygen, potassium chloride CR OR potassium chloride, potassium chloride CR OR potassium chloride, potassium chloride, potassium chloride, simethicone Assessment/Plan Principal Problem: Aneurysm of ascending aorta without rupture ([facility] [place]) 73 y.o. F PMHx of Ascending aortic aneurysm with mild AI, breast CA, CKD II, pre-DM, diverticulitis, GERD, HLD, and HTN now s/p ascending Ao replacement ([employer]), LAAC (45mm Atriclip), and pericardial window 08/10/[address] Galloway. Neuro: # Acute postop pain well controlled - Serial neuro and pain assessments - Analgesia: scheduled Tylenol, PRN Oxy, Lidoderm patches - PT/OT/MITT - Olopatadine eye gtts as needed CV: # Asc Ao aneurysm s/p Asc Ao replacement with LAAC 08/[address] Galloway. Normal biV pre and post CPB, new LBBB # H/O HTN, HLD # Vasodilatory hypotension. Low dose VasO # Post op Afib RVR->NSR-> Accelerated junctional- > NSR - DC EP Consult E - Maintain Pacer VVI 50 - Cont EKG, ABP - Maintain MAP >65, - Vaso 0.03 - Maintain and monitor CTs for quantity, quality of drainage - Continue ASA, statin - Hold BB until HDs permit - Hold home irbesartan, spironolactone for now Pulm: # Acute hypoxic respiratory failure moderate ARDS P/F ratio 162 requiring Airvo etiology unclear Cts: - 24 Left pleural duncan & 1 mediastinal, output slowed this morning apx 0- 10cc /hr, clear ss drainage, no air leaks. - Daily CRX stable w/o PTX - Wean FiO2 to SpO2 > 90% - BPH - 3% saline nebs w/ Duoneb - CT's per protocol GI: Poor po Intake, +BM,+flatus # H/O Diverticulitis # LLQ intermittent abd pain etiology likely gas however other etiologies to consider is diverticulitis flair however less likely since is relieved with passing flatus and per patient ist the the samepain - Regular Diet - DC Mitchel per patient request, add Ensure - Bowel regimen - Gas X - GI ppx: not indicated - Zofran PRN - Consider further testing if abd pain sustained/worsens /Renal: # H/O Stage II CKD (baseline Cr 0.9) - RFP daily, replete lytes per protocol - Remove Carlson - I&Os, remove as hemodynamics normalize Heme/Onc: # Acute blood loss anemia, zoie-op coagulopathy. POD#2 S/P 2 units prbc # Hx breast CA s/p lumpectomy and XRT - CBC daily and as needed - DVTppx: SCDs, Lovenox Endo: Pre DM with last A1c 5.9 - POCT BG, ISS achs - Maintain BG < 180. Hypoglycemia protocol ID: Leukocytosis improved, afebrile likely 2/2 atelectatics, infective process unlikely this close postop with completion of zoie op abx 08/12, UA negative, Blood culture negative - DC Zosyn - Trend temp, WBCs - Periop abx cefaz x 48 hrs completed Code status: Full Code Emergency contact: Dominic Dispo: Maintain ICU, Discussed with Dr Galloway, Dr Phillips, Bedside RN, Patient and Pts at bedside This critically ill patient continues to be at-risk for clinically significant deterioration / failure due to the above mentioned dysfunctional, unstable organ systems. I have personally identified and managed all complex critical care issues with efforts to prevent aforementioned clinical deterioration. Critical care time is spent at bedside and/or the immediate area and has included, but is notlimited to, the review of diagnostic tests, labs, radiographs, serial assessments of hemodynamics, respiratory status, ventilatory management, and family updates. Time spent in procedures and teaching are reported separately. CRITICAL CARE TIME: 70 minutes JESSE Wilks * Rolo Hodgson OT - 08/13/2024 3:05 PM EST Occupational Therapy Occupational Therapy Treatment Name: Karla Cai Department: [place] [address] ICU Room: [address] [place] [address] Date: 08/13/24 Time Calculation Start Time: 1420 Stop Time: 1444 Time Calculation (min): 24 min Assessment: OT Assessment: (Patient seen for follow up treatment, continues to have chest tubes, external pacerand art line. Patient is weak and deconditioned. Patient would benefit from LOW intensity therapy to maximize functional independence.) Prognosis: Good Barriers to Discharge: Inaccessible home environment Evaluation/Treatment Tolerance: Patient limited by fatigue Medical Staff Made Aware: Yes End of Session Communication: Bedside nurse End of Session Patient Position: Up in chair, Alarm on Plan: Treatment Interventions: ADL retraining, Functional transfer training, Endurance training, Patient/family training, Neuromuscular reeducation OT Frequency: 3 times per week OT Discharge Recommendations: Moderate intensity level of continued care OT Recommended Transfer Status: Minimal assist OT - OK to Discharge: Yes Subjective Previous Visit Info: OT Last Visit OT Received On: 08/13/24 General: General Reason for Referral: s/p Ascending aorta repair with LAAC 08/[address] Galloway. Normal biV pre and post CPB, new LBBB Referred By: (Pack) Past Medical History Relevant to Rehab: Past Medical History: Diagnosis Date Allergic rhinitis Aortic regurgitation Arthritis bilateral feet Ascending aortic aneurysm (CMS-HCC) Breast cancer (Multi) 2010 s/p lumpectomy,radiation and tamoxifen CKD (chronic kidney disease) stage 2 Diverticulitis no issues since 2018 DM (diabetes mellitus) (Multi) diet controlled GERD (gastroesophageal reflux disease) occasional symptoms HLD (hyperlipidemia) Hypertension Hypokalemia Kidney cyst, acquired Mitral regurgitation Osteopenia Tricuspid regurgitation OT Missed Visit: Yes Missed Visit Reason: (Attempted to see, spoke with PT and patient with drop in Blood Pressure upon standing and unable to participate in therapy per RN.) Family/Caregiver Present: Yes Caregiver Feedback: (Spouse and dtr present) Prior to Session Communication: Bedside nurse Patient Position Received: Up in chair, Alarm on General Comment: (Patient SOB with minimal ADL activity in chair, respirations increased to 30 whencompleting ADLs.) Precautions: Medical Precautions: Cardiac precautions Post-Surgical Precautions: Move in the Tube Vital Signs Comment: (MAP 61) Pain Assessment: Pain Assessment Pain Assessment: 0-10 0-10 (Numeric) Pain Score: 3 Pain Type: Surgical pain Pain Location: Chest Pain Orientation: Left Objective Cognition: Overall Cognitive Status: Within Functional Limits Orientation Level: Oriented X4 Activities of Daily Living: LE Dressing LE Dressing: Yes Pants Level of Assistance: Close supervision Sock Level of Assistance: Close supervision LE Dressing Where Assessed: Chair LE Dressing Comments: (Educated on proper technique to perform LB ADLs and maintain MITT protocol.) Sitting Balance: Static Sitting Balance Static Sitting-Balance Support: Feet supported Static Sitting-Level of Assistance: Independent Dynamic Sitting Balance Dynamic Sitting-Balance Support: Feet supported Dynamic Sitting-Level of Assistance: Close supervision Dynamic Sitting-Balance: Forward lean Other Activity: Other Activity Other Activity Performed: (Patient educated regarding MITT protocol, reinforcement provided and reviewed with patient and family and energy conservation and pursed lip breathing techniques reviewed with patient.) Outcome Measures: [facility] Daily Activity Putting on and taking off regular lower body clothing: A little Bathing (including washing, rinsing, drying): A lot Putting on and taking off regular upper body clothing: A little Toileting, which includes using toilet, bedpan or urinal: A lot Taking care of personal grooming such as brushing teeth: A little Eating Meals: None Daily Activity - Total Score: 17 Goals: Encounter Problems Encounter Problems (Active) ADLs Patient will perform UB and LB bathing with independent level of assistance. (Progressing) Start: 08/11/24 Expected End: 08/25/24 Patient with complete upper body dressing with independent level of assistance donning and doffing all UE clothes with no adaptive equipment while edge of bed (Progressing) Start: 08/11/24 Expected End: 08/25/24 Patient with complete lower body dressing with independent level of assistance donning and doffing all LE clothes with no adaptive equipment while standing (Progressing) Start: 08/11/24 Expected End: 08/25/24 Patient will complete daily grooming tasks brushing teeth and washing face/hair with independent level of assistance and PRN adaptive equipment while standing. (Progressing) Start: 08/11/24 Expected End: 08/25/24 Patient will complete toileting including hygiene clothing management/hygiene with independent level of assistance and raised toilet seat. (Progressing) Start: 08/11/24 Expected End: 08/25/24 BALANCE Pt will maintain dynamic standing balance during ADL task with independent level of assistance in order to demonstrate decreased risk of falling and improved postural control. (Progressing) Start: 08/11/24 Expected End: 08/25/24 TRANSFERS Patient will perform bed mobility independent level of assistance and bed rails in order to improvesafety and independence with mobility (Progressing) Start: 08/11/24 Expected End: 08/25/24 Patient will complete functional transfer to all surfaces with least restrictive device with independent level of assistance. (Progressing) Start: 08/11/24 Expected End: 08/25/24 * Judith Weber PT - 08/13/2024 10:42 AM EST Physical Therapy Therapy Communication Note Patient Name: Karla Cai Department: [place] [address] ICU Room: [address] [place] [address] Today's Date: 08/13/2024 Discipline: Physical Therapy Missed Visit Reason: Missed Visit Reason: Patient placed on medical hold (Nurse requests to defer PT tx at this time. They are waiting on some lab values, and will attempt to wean her from some meds.She is currently on AirVO, and continues to have low BP.) Missed Time: Attempt/Hold * Paul oHdgson RN - 08/13/2024 7:40 AM EST 08/13/24 0740 Discharge Planning Expected Discharge Disposition Home H POD 3 AA replacement and pericardial window. Worsening hypoxia and vasoplegia last night. Placed onairvo and vasopressor. B/L chest tubes in place. Current dc plan home with [facility]. TCC to continue to follow for further dc needs. * Eh Mckeon, MANAGER HOSPICE-SURGICAL ONCOLOGIST - 08/13/2024 7:12 AM EST Karla Cai is a 73 y.o. female on day 3 of admission presenting with Aneurysm of ascending aorta without rupture ([facility]) Subjective Febrile, increased leukocytosis over night; blood and urine cultures sent started on Empiric Zosyn Received 500LR bolus and 500cc albumin over night for hypotension and decreased urine output. This morning Chest tube output has slowed to apx 10-20cc/hr clear thin SS fluid remains on Vaso at 0.03 and Levo0.04-0.06, and Amio infusion at 5. EKG this Accelerated junctional CXR stable no concern for pulmonary congestion Flowsonics indicative of fluid responsiveness Objective Physical Exam Physical Exam Vitals reviewed. Constitutional: General: She is not in acute distress. Appearance: She is ill-appearing. Comments: Elderly female sitting up in chair Pale, weak, frail appearing Neck: Comments: RIJ CVC Cardiovascular: Rate and Rhythm: Tachycardia present. Rhythm regular. Pulses: Normal pulses. Comments: MSI stable w/o click, well approximated w/o drainage or hematoma Accelerated junctional 90-100 EP pacer vvi 40 Pulmonary: Breath sounds: No stridor. No wheezing or rhonchi. Comments: Shallow respirations, Equal chest rise, Chest tube w/o air leak or crepitus Airvo 60L 75% Abdominal: Palpations: Abdomen is soft. Genitourinary: Comments: Indwelling carlson Musculoskeletal: Right lower leg: +1 Edema present. Left lower leg: +1 Edema present. Skin: General: Skin is warm and dry. Coloration: Skin is pale. Neurological: General: No focal deficit present. Mental Status: She is alert and oriented to person, place, and time. Psychiatric: Mood and Affect: Mood normal. Behavior: Behavior normal. Judgment: Judgment normal. Review of Systems Denies chest pain, palpations, light headedness, dizziness sob, n/v fever, chills Last Recorded Vitals Blood pressure 101/61, pulse 92, temperature 37.4 C (99.3 F), resp. rate 16, height 1.753 m (5' 9), weight 84.6 kg (186 lb 8.2 oz), SpO2 95%. Intake/Output Last 3 Shifts I/O last 3 completed shifts: In: 5059.7 (59.8 mL/kg) [P.O.:360; I.V.:2144.7 (25.4 mL/kg); Blood:1200; IV Piggyback:1355] Out: 2420 (28.6 mL/kg) [Urine:1280 (0.4 mL/kg/hr); Chest Tube:1140] Weight: 84.6 kg Lines CVC 08/10/24 Double lumen Right Internal jugular (Active) Placement Date/Time: 08/10/24 (c) 0810 Hand Hygiene Performed Prior to CVC Insertion: Yes Site Prep: Chlorhexidine Site Prep Agent has Completely Dried Before Insertion: Yes All 5 Sterile Barriers Used (Gloves, Gown, Cap, Mask, Large Sterile Jen... Number of days: 2 Arterial Line 08/10/24 Right Brachial (Active) Placement Date/Time: 08/10/24 (c) 0750 Size: 20 G Orientation: Right Location: Brachial Securement Method: Transparent dressing Patient Tolerance: Tolerated well Number of days: 2 Urethral Catheter Non-latex 16 Fr. (Active) Placement Date/Time: 08/10/24 1200 Earliest Known Present: 08/10/24 Catheter Type: Non-latex Tube Size (Fr.): 16 Fr. Catheter Balloon Size: 10 mL Urine Returned: Yes Number of days: 2 Chest Tube 1 28 Fr (Active) Placement Date: 08/10/24 Tube Number: 1 Chest Tube Drain Tube Size (Fr): 28 Fr Number of days: 3 Chest Tube 2 24 Fr (Active) Placement Date: 08/10/24 Tube Number: 2 Chest Tube Drain Tube Size (Fr): 24 Fr Number of days: 3 Recent Labs CMP: Results from last 7 days Lab Units 08/13/24 0514 08/12/24 2002 08/12/24 0606 08/11/24 0417 08/10/24 1342 SODIUM mmol/L 130* 132* 136 137 141 POTASSIUM mmol/L 4.0 4.0 4.2 4.1 3.6 CHLORIDE mmol/L 101 102 105 107 112* CO2 mmol/L 21 21 25 22 23 ANION GAP mmol/L 12 13 10 12 10 BUN mg/dL 37* 34* 29* 24* 21 CREATININE mg/dL 0.88 0.92 0.64 0.76 0.73 EGFR mL/min/1.73m*2 69 65 >90 82 86 MAGNESIUM mg/dL -- 2.90* 1.87 2.16 2.39 ALBUMIN g/dL 3.4 3.4 3.4 3.6 3.4 CBC: Results from last 7 days Lab Units 08/13/24 0514 08/12/24 1812 08/12/24 1451 08/12/24 0606 08/12/24 0140 08/11/24 0417 08/10/24 1544 08/10/24 1342 08/10/24 1200 WBC AUTO x10*3/uL 17.1* 19.2* 19.2* -- 12.4* 11.0 9.5 13.6* 15.8* 18.3* HEMOGLOBIN g/dL 9.9* 10.3* 10.3* 10.3* 9.0* 9.0* 7.6* 9.0* 9.1* 9.8* HEMATOCRIT % 28.0* 30.2* 30.2* 30.1* 27.7* 25.4* 23.6* 27.5* 27.5* 29.8* PLATELETS AUTO x10*3/uL 247 237 237 -- 186 182 230 286 273 229 MCV fL 87 88 88 -- 91 85 93 94 90 93 COAG: Results from last 7 days Lab Units 08/12/24 1654 08/10/24 1454 08/10/24 1200 INR 1.5* 1.3* 1.7* HEME/ENDO: CARDIAC: Imaging XR chest 1 view Final Result 1. Stable exam. Small right apical pneumothorax. MACRO: None Signed by: Lenard Munguia 08/12/2024 6:05 PM Dictation workstation: [id number] Transthoracic Echo (TTE) Limited Final Result XR chest 1 view Final Result Recent heart surgery. Stable right IJ vein catheter and bibasilar chest tubes. Decrease in size of now tiny right apical pneumothorax. Stable pleural and parenchymal opacities at the left base. Stable atelectasis at the medial right lung base. Cardiomegaly. MACRO: None Signed by: Rob Hussein 08/12/2024 8:04 AM Dictation workstation: [id number] XR chest 1 view Final Result Recent heart surgery. ET tube and NG [...] Rob Hussein 08/11/2024 8:18 AM Dictation workstation: [id number] XR chest 1 view Final Result Status post sternotomy with multiple support devices in place as above. Questionable small left apical pneumothorax. Qsep-rzrjfga-jtpl-right basilar infiltrates or atelectasis. MACRO: None. Signed by: Fernanda Lambert 08/10/2024 2:44 PM Dictation workstation: [id number] Anesthesia Intraoperative Transesophageal Echocardiogram Final Result Medications Scheduled medications acetaminophen, 975 mg, oral, q8h [START ON 08/14/2024] amiodarone, 200 mg, oral, Daily aspirin, 81 mg, oral, Daily enoxaparin, 40 mg, subcutaneous, q24h KEYANNA insulin lispro, 0-15 Units, subcutaneous, Before meals & nightly lactated Ringer's, 500 mL, intravenous, Once lidocaine, 1 patch, transdermal, q24h perflutren lipid microspheres, 0.5-10 mL of dilution, intravenous, Once in imaging perflutren protein A microsphere, 0.5 mL, intravenous, Once in imaging piperacillin-tazobactam, 4.5 g, intravenous, q6h polyethylene glycol, 17 g, oral, Daily pravastatin, 20 mg, oral, Nightly sennosides-docusate sodium, 2 tablet, oral, BID sulfur hexafluoride microsphr, 2 mL, intravenous, Once in imaging Continuous medications amiodarone, 0.5 mg/min, Last Rate: 0.5 mg/min (08/13/24 0400) lactated Ringer's, 30 mL/hr, Last Rate: 30 mL/hr (08/13/24 0505) norepinephrine, 0-0.5 mcg/kg/min, Last Rate: 0.04 mcg/kg/min (08/13/24 0659) vasopressin, 0-0.03 Units/min, Last Rate: 0.03 Units/min (08/13/24 0400) PRN medications PRN medications: alteplase, HYDROmorphone, magnesium sulfate, magnesium sulfate, naloxone, ondansetron ODT OR ondansetron, oxyCODONE, oxyCODONE, oxygen, potassium chloride CR OR potassium chloride, potassium chloride CR OR potassium chloride, potassium chloride, potassium chloride, simethicone Assessment/Plan Principal Problem: Aneurysm of ascending aorta without rupture ([facility]) 73 y.o. F PMHx of Ascending aortic aneurysm with mild AI, breast CA, CKD II, pre-DM, diverticulitis, GERD, HLD, and HTN now s/p ascending Ao replacement (Gelweave), LAAC (45mm Atriclip), and pericardial window 08/10/[address] Galloway. Neuro: # Acute postop pain well controlled - Serial neuro and pain assessments - Analgesia: scheduled Tylenol, PRN Oxy, Lidoderm patches - PT/OT/MITT - Olopatadine eye gtts as needed CV: # Asc Ao aneurysm s/p Asc Ao replacement with LAAC 08/[address] Galloway. Normal biV pre and post CPB, new LBBB # H/O HTN, HLD # Vasodilatory hypotension. Remains low dose Levo off vaso # Post op Afib RVR->NSR-> Accelerated junctional - DC Amiodarone - Consult EP appreciate --Dr Hargrove aware via Secure Chat; will see over the weekend - Maintain Pacer VVI 50 - Cont EKG, ABP - Maintain MAP >60, wena NE as needed - Maintain and monitor CTs for quantity, quality of drainage - Continue ASA, statin - Hold BB until HDs permit - Hold home irbesartan, spironolactone for now Pulm: # Acute on Expected post op respiratory insufficiency s/p sternotomy requiring Airvo Cts: - 24 Left pleural duncan & 1 mediastinal, output slowed this morning apx 10- 20cc /hr, clearss drainage, no air leaks. - Daily CRX unchanged - Wean FiO2 to SpO2 > 90% - BPH - CT's per protocol GI: Poor po Intake, no BM,+flatus # H/O Diverticulitis # LLQ intermittent abd pain etiology likely gas however other etiologies to consider is diverticulitis flair however less likely since is relieved with passing flatus and per patient ist the the samepain - Regular Diet - DC Mitchel per patient request, add Ensure - Bowel regimen to stool daily - Gas X - GI ppx: not indicated - Zofran PRN - Consider further testing if abd pain sustained/worsens /Renal: # H/O Stage II CKD (baseline Cr 0.9) - RFP daily, replete lytes per protocol - Continue Carlson for strict I&Os, remove as hemodynamics normalize Heme/Onc: # Acute blood loss anemia, zoie-op coagulopathy. POD#2 S/P 2 units prbc # Hx breast CA s/p lumpectomy and XRT - CBC daily and as needed - DVTppx: SCDs, Lovenox Endo: PreDM with last A1c 5.9 - POCT BG, ISS q4 - Maintain BG < 180. Hypoglycemia protocol ID: Leukocytosis, afebrile likely 2/2 atelectatics infective process unlikely this close post op with completion of zoie op abx 08/12, UA negative, Blood culture pending - Zosyn - likely discontinue pending blood culture - Trend temp, WBCs - Periop abx cefaz x 48 hrs completed Code status: Full Code Emergency contact: Dominic Dispo: Maintain ICU, Discussed with Dr Galloway, Dr Phillips, Bedside RN, Patient and Pts at bedside This critically ill patient continues to be at-risk for clinically significant deterioration / failure due to the above mentioned dysfunctional, unstable organ systems. I have personally identified and managed all complex critical care issues with efforts to prevent aforementioned clinical deterioration. Critical care time is spent at bedside and/or the immediate area and has included, but is notlimited to, the review of diagnostic tests, labs, radiographs, serial assessments of hemodynamics, respiratory status, ventilatory management, and family updates. Time spent in procedures and teaching are reported separately. CRITICAL CARE TIME: 70 minutes JESSE Wilks * Rolo Hodgson OT - 08/12/2024 3:31 PM EST Occupational Therapy Therapy Communication Note Patient Name: Karla Cai Department: [facility] [address] ICU Room: [address] [place] [address] Today's Date: 08/12/2024 Discipline: Occupational Therapy Missed Visit Reason: (Attempted to see, spoke with PT and patient with drop in Blood Pressure upon standing and unable to participate in therapy per RN.) * Judith Weber PT - 08/12/2024 3:02 PM EST Physical Therapy Therapy Communication Note Patient Name: Karla Cai Department: [facility] [place] [address] ICU Room: [address] [place] [address] Today's Date: 08/12/2024 Discipline: Physical Therapy Missed Visit Reason: Missed Visit Reason: Other (Comment) (Nurse reports that they just stood pt, and her BP dropped significantly. Pt has low tolerance for activity, and will defer PT tx at this time per nurse.) Missed Time: Attempt * Joanie Koo, RD - 08/12/2024 2:19 PM EST Nutrition Note RDN consulted per admission risk screen. Pt is s/p cardiac surgery 08/10/24. Chart reviewed, events noted. Pt requiring 10L HFNC today, expected post op resp insufficiency s/p sternotomy as per SURGICAL ONCOLOGIST. Dietary Orders (From admission, onward) Start Ordered 08/10/242223 Adult diet Regular, Cardiac; 70 gm fat; 2 - 3 grams Sodium Diet effective now Question Answer Comment Diet type Regular Diet type Cardiac Fat restriction: 70 gm fat Sodium restriction: 2 - 3 grams Sodium 08/10/24222308/10/24 1645 May Not Participate in Room Service ( ROOM SERVICE MAY NOT PARTICIPATE) Once Question: . Answer: Yes 08/10/244 08/10/24 1240 Oral nutritional supplements - Mitchel Until discontinued Comments: Twice a day. Question Answer Comment Deliver with Breakfast Deliver with Lunch Select supplement: Mitchel 08/10/24 1239 Visit Vitals BP 101/61 Pulse 101 Temp 36.3 C (97.3 F) (Temporal) Resp 19 Ht 1.753 m (5' 9) Wt 82.8 kg (182 lb 8.7 oz) SpO2 93% BMI 26.96 kg/m OB Status Hysterectomy Smoking Status Never BSA 2.01 m Wt hx: 78.2 kg 05/27/24 , no significant wt change Skin: MSI Edema: non pitting Latest Reference Range & Units 08/12/24 06:06 GLUCOSE 74 - 99 mg/dL 127 (H) SODIUM 136 - 145 mmol/L 136 POTASSIUM 3.5 - 5.3 mmol/L 4.2 CHLORIDE 98 - 107 mmol/L 105 Bicarbonate 21 - 32 mmol/L 25 Anion Gap 10 - 20 mmol/L 10 Blood Urea Nitrogen 6 - 23 mg/dL 29 (H) Creatinine 0.50 - 1.05 mg/dL 0.64 EGFR >60 mL/min/1.73m*2 >90 Calcium 8.6 - 10.3 mg/dL 8.2 (L) PHOSPHORUS 2.5 - 4.9 mg/dL 2.0 (L) Albumin 3.4 - 5.0 g/dL 3.4 MAGNESIUM 1.60 - 2.40 mg/dL 1.87 (H): Data is abnormally high (L): Data is abnormally low Scheduled medications acetaminophen, 975 mg, oral, q8h [START ON 08/14/2024] amiodarone, 200 mg, oral, Daily aspirin, 81 mg, oral, Daily enoxaparin, 40 mg, subcutaneous, q24h KEYANNA insulin lispro, 0-15 Units, subcutaneous, Before meals & nightly lidocaine, 1 patch, transdermal, q24h polyethylene glycol, 17 g, oral, Daily pravastatin, 20 mg, oral, Nightly sennosides-docusate sodium, 2 tablet, oral, BID Continuous medications amiodarone, 1 mg/min, Last Rate: 1 mg/min (08/12/24 1135) Followed by amiodarone, 0.5 mg/min lactated Ringer's, 20 mL/hr, Last Rate: 20 mL/hr (08/10/24 1900) norepinephrine, 0-0.5 mcg/kg/min, Last Rate: 0.06 mcg/kg/min (08/12/24 1300) PRN medications PRN medications: alteplase, HYDROmorphone, magnesium sulfate, magnesium sulfate, naloxone, ondansetron ODT OR ondansetron, oxyCODONE, oxyCODONE, oxygen, potassium chloride CR OR potassium chloride, potassium chloride CR OR potassium chloride, potassium chloride, potassium chloride Pt without malnutrition diagnosis at this time however pt with increased metabolic demands s/p surgery. Suggest add oral nutrition supplement with meals for supplementation, may be easier to drink while on HFNC. Add MVI once daily, if indicated, as well. RDN to follow peripherally at this time Please consult RDN for complete assessment, if indicated. * Eh Mckeon APRN-TYRA - 08/12/2024 7:10 AM EST Karla Cai is a 73 y.o. female on day 2 of admission presenting with Aneurysm of ascending aorta without rupture ([facility]) Subjective Received 1 unit prbc over night, weaned off levophed, repeat HGB 9, however up to chair this morning with 80cc chest tube dump , hypotensive, restarted low dose levophed, 2nd unit prbc lasix x1 Post op Afib RVR 120-130's SOB hypoxic requiring 10L HF, Amio bolus 2x 24 hour infusion CXR Objective Physical Exam Vitals reviewed. Constitutional: General: She is not in acute distress. Appearance: She is ill-appearing. Comments: Elderly female sitting up in chair Pale, weak, frail appearing Neck: Comments: RIJ CVC Cardiovascular: Rate and Rhythm: Tachycardia present. Rhythm irregular. Pulses: Normal pulses. Comments: MSI stable w/o click, well approximated w/o drainage or hematoma Afib RVR 120-130's EP wires capped Pulmonary: Breath sounds: No stridor. No wheezing or rhonchi. Comments: Shallow respirations, Equal chest rise, Chest tube w/o air leak or crepitus 10L HF Abdominal: Palpations: Abdomen is soft. Genitourinary: Comments: Indwelling carlson Musculoskeletal: Right lower leg: Edema present. Left lower leg: Edema present. Skin: General: Skin is warm and dry. Coloration: Skin is pale. Neurological: General: No focal deficit present. Mental Status: She is alert and oriented to person, place, and time. Psychiatric: Mood and Affect: Mood normal. Behavior: Behavior normal. Judgment: Judgment normal. Review of Systems Denies chest pain, n/v fever, chills, with Afib onset pt reports palpations, light headedness, dizziness sob Last Recorded Vitals Blood pressure 101/61, pulse 107, temperature 36.2 C (97.1 F), temperature source Temporal, resp. rate 20, height 1.753 m (5' 9), weight 82.8 kg (182 lb 8.7 oz), SpO2 94%. Intake/Output Last 3 Shifts I/O last 3 completed shifts: In: 4692.3 (56.7 mL/kg) [P.O.:490; I.V.:502.3 (6.1 mL/kg); Blood:600; IV Piggyback:3100] Out: 1852 (22.4 mL/kg) [Urine:902 (0.3 mL/kg/hr); Chest Tube:950] Weight: 82.8 kg Lines CVC 08/10/24 Double lumen Right Internal jugular (Active) Placement Date/Time: 08/10/24 (c) 0810 Hand Hygiene Performed Prior to CVC Insertion: Yes Site Prep: Chlorhexidine Site Prep Agent has Completely Dried Before Insertion: Yes All 5 Sterile Barriers Used (Gloves, Gown, Cap, Mask, Large Sterile Jen... Number of days: 1 Arterial Line 08/10/24 Right Brachial (Active) Placement Date/Time: 08/10/24 (c) 0750 Size: 20 G Orientation: Right Location: Brachial Securement Method: Transparent dressing Patient Tolerance: Tolerated well Number of days: 1 Urethral Catheter Non-latex 16 Fr. (Active) Placement Date/Time: 08/10/24 1200 Earliest Known Present: 08/10/24 Catheter Type: Non-latex Tube Size (Fr.): 16 Fr. Catheter Balloon Size: 10 mL Urine Returned: Yes Number of days: 1 Chest Tube 1 28 Fr (Active) Placement Date: 08/10/24 Tube Number: 1 Chest Tube Drain Tube Size (Fr): 28 Fr Number of days: 2 Chest Tube 2 24 Fr (Active) Placement Date: 08/10/24 Tube Number: 2 Chest Tube Drain Tube Size (Fr): 24 Fr Number of days: 2 Recent Labs CMP: Results from last 7 days Lab Units 08/12/24 0606 08/11/24 0417 08/10/24 1342 SODIUM mmol/L 136 137 141 POTASSIUM mmol/L 4.2 4.1 3.6 CHLORIDE mmol/L 105 107 112* CO2 mmol/L 25 22 23 ANION GAP mmol/L 10 12 10 BUN mg/dL 29* 24* 21 CREATININE mg/dL 0.64 0.76 0.73 EGFR mL/min/1.73m*2 >90 82 86 MAGNESIUM mg/dL 1.87 2.16 2.39 ALBUMIN g/dL 3.4 3.6 3.4 CBC: Results from last 7 days Lab Units 08/12/24 0606 08/12/24 0140 08/11/24 0417 08/10/24 1544 08/10/24 1342 08/10/24 1200 WBC AUTO x10*3/uL 12.4* 11.0 9.5 13.6* 15.8* 18.3* HEMOGLOBIN g/dL 9.0* 9.0* 7.6* 9.0* 9.1* 9.8* HEMATOCRIT % 27.7* 25.4* 23.6* 27.5* 27.5* 29.8* PLATELETS AUTO x10*3/uL 186 182 230 286 273 229 MCV fL 91 85 93 94 90 93 COAG: Results from last 7 days Lab Units 08/10/24 1454 08/10/24 1200 INR 1.3* 1.7* HEME/ENDO: CARDIAC: Imaging XR chest 1 view Final Result Recent heart surgery. Stable right IJ vein catheter and bibasilar chest tubes. Decrease in size of now tiny right apical pneumothorax. Stable pleural and parenchymal opacities at the left base. Stable atelectasis at the medial right lung base. Cardiomegaly. MACRO: None Signed by: Rob Hussein 08/12/2024 8:04 AM Dictation workstation: [id number] XR chest 1 view Final Result Recent heart surgery. ET tube and NG [...] Rob Hussein 08/11/2024 8:18 AM Dictation workstation: [id number] XR chest 1 view Final Result Status post sternotomy with multiple support devices in place as above. Questionable small left apical pneumothorax. Dqyz-yskcamt-njqf-right basilar infiltrates or atelectasis. MACRO: None. Signed by: Fernanda Lambert 08/10/2024 2:44 PM Dictation workstation: [id number] Anesthesia Intraoperative Transesophageal Echocardiogram Final Result Medications Scheduled medications acetaminophen, 975 mg, oral, q8h [START ON 08/14/2024] amiodarone, 200 mg, oral, Daily aspirin, 81 mg, oral, Daily ceFAZolin, 2 g, intravenous, q8h insulin lispro, 0-15 Units, subcutaneous, Before meals & nightly lidocaine, 1 patch, transdermal, q24h polyethylene glycol, 17 g, oral, Daily potassium phosphate, 15 mmol, intravenous, Once pravastatin, 20 mg, oral, Nightly sennosides-docusate sodium, 2 tablet, oral, BID Continuous medications amiodarone, 1 mg/min, Last Rate: 1 mg/min (08/12/24 0845) Followed by amiodarone, 0.5 mg/min EPINEPHrine, 0.02 mcg/kg/min, Last Rate: Stopped (08/11/24 1444) lactated Ringer's, 20 mL/hr, Last Rate: 20 mL/hr (08/10/24 1900) norepinephrine, 0-0.5 mcg/kg/min, Last Rate: 0.07 mcg/kg/min (08/12/24 1000) PRN medications PRN medications: alteplase, HYDROmorphone, magnesium sulfate, magnesium sulfate, naloxone, ondansetron ODT OR ondansetron, oxyCODONE, oxyCODONE, oxygen, potassium chloride CR OR potassium chloride, potassium chloride CR OR potassium chloride, potassium chloride, potassium chloride Assessment/Plan Principal Problem: Aneurysm of ascending aorta without rupture ([facility]) 73 y.o. F PMHx of Ascending aortic aneurysm with mild AI, breast CA, CKD II, pre-DM, diverticulitis, GERD, HLD, and HTN now s/p ascending Ao replacement (Gelweave), LAAC (45mm Atriclip), and pericardial window 08/10/[address] Galloway. Neuro: # Acute postop pain well controlled - Serial neuro and pain assessments - Analgesia: scheduled Tylenol, PRN Oxy, Lidoderm patches - PT/OT/MITT - Olopatadine eye gtts as needed CV: # Asc Ao aneurysm s/p Asc Ao replacement with LAAC 08/[address] Galloway. Normal biV pre and post CPB, new LBBB # H/O HTN, HLD # Vasodilatory hypotension. Remains low dose Levo # Post op Afib RVR - Cont EKG, ABP - Maintain MAP 70-90, wena NE as needed - Maintain and monitor CTs for quantity, quality of drainage - Repeat post op ECHO prior to discharge; sooner if indicated - Amio infusion with oral load - Continue ASA, statin - Hold BB until HDs permit - Hold home irbesartan, spironolactone for now Pulm: # Acute on Expected post op respiratory insufficiency s/p sternotomy. Requiring 10L High flow . Cts: - 24 Left pleural duncan & 1 mediastinal, apx 40cc/hr after 80cc dump this AM, no air leaks. - Daily CRX - Wean FiO2 to SpO2 > 92% - BPH - CT's per protocol GI: # H/O Diverticulitis - ADAT - Bowel regimen to stool daily - GI ppx: not indicated - Zofran PRN /Renal: # H/O Stage II CKD (baseline Cr 0.9) - RFP daily, replete lytes per protocol - Continue Carlson for strict I&Os, remove as hemodynamics normalize Heme/Onc: # Acute blood loss anemia, zoie-op coagulopathy. POD#2 S/P 2 units prbc # Hx breast CA s/p lumpectomy and XRT - CBC daily and as needed - DVTppx: SCDs, Lovenox Endo: PreDM with last A1c 5.9 - POCT BG, ISS q4 - Maintain BG < 180. Hypoglycemia protocol ID: Afebrile, no s/s infection - Trend temp, WBCs - Periop abx cefaz x 48 hrs Code status: Full Code Emergency contact: Dominic Dispo: Maintain ICU, Discussed with Dr Galloway, Bedside RN, Patient and Pts at bedside This critically ill patient continues to be at-risk for clinically significant deterioration / failure due to the above mentioned dysfunctional, unstable organ systems. I have personally identified and managed all complex critical care issues with efforts to prevent aforementioned clinical deterioration. Critical care time is spent at bedside and/or the immediate area and has included, but is notlimited to, the review of diagnostic tests, labs, radiographs, serial assessments of hemodynamics, respiratory status, ventilatory management, and family updates. Time spent in procedures and teaching are reported separately. CRITICAL CARE TIME: 70 minutes JESSE Wilks * Jessy Hernández, PT - 08/11/2024 3:43 PM EST Physical Therapy Physical Therapy Evaluation & Treatment Patient Name: Karla Cai Department: [place] [address] ICU Room: [address] [place] [address] Today's Date: 08/11/2024 Time Calculation Start Time: 1025 Stop Time: 1105 Time Calculation (min): 40 min Assessment/Plan PT Assessment PT Assessment Results: Decreased endurance, Impaired balance, Decreased mobility, Pain Rehab Prognosis: Good Barriers to Discharge: ongoing medical needs; will benefit from additional PT interventions prior to DC Evaluation/Treatment Tolerance: Treatment limited secondary to medical complications (Comment) Medical Staff Made Aware: Yes Strengths: Access to adaptive/assistive products, Ability to acquire knowledge, Premorbid level of function, Support and attitude of living partners Barriers to Participation: Comorbidities, Housing layout End of Session Communication: Bedside nurse Assessment Comment: Patient is POD #1 s/p replacement of ascending aorta; PT consutled to assess mobility and provide interventions. Patient has MITT, cardiac and falls precautions. She demonstrated limited physical mobility today with impaired physiologic response. Anticipate patient to demonstrate improved mobility with ongoing medical support of BP response postop. She will benefit from ongoing PT in house and LOW intensity PT at time of medical DC to maximize her safety and promote functional I. End of Session Patient Position: Up in chair, Alarm on IP OR SWING BED PT PLAN Inpatient or Swing Bed: Inpatient PT Plan Treatment/Interventions: Bed mobility, Transfer training, Gait training, Stair training, Balance training, Endurance training, Therapeutic activity, Home exercise program, Positioning, Postural re-education PT Plan: Ongoing PT PT Frequency: 5 times per week PT Discharge Recommendations: Low intensity level of continued care Equipment Recommended upon Discharge: (patient has DME at home) PT Recommended Transfer Status: Assist x2, Assistive device PT - OK to Discharge: Yes Subjective General Visit Information: General Reason for Referral: impaired mobility, POD #1 s/p Ascending aorta repair with LAAC 08/[address] Galloway. Normal biV pre and post CPB, new LBBB Past Medical History Relevant to Rehab: Past Medical History: Diagnosis Date Allergic rhinitis Aortic regurgitation Arthritis bilateral feet Ascending aortic aneurysm (CMS-HCC) Breast cancer (Multi) 2010 s/p lumpectomy,radiation and tamoxifen CKD (chronic kidney disease) stage 2 Diverticulitis no issues since 2018 DM (diabetes mellitus) (Multi) diet controlled GERD (gastroesophageal reflux disease) occasional symptoms HLD (hyperlipidemia) Hypertension Hypokalemia Kidney cyst, acquired Mitral regurgitation Osteopenia Tricuspid regurgitation Family/Caregiver Present: Yes Caregiver Feedback: Dominic present and supportive, engaged in education provided Co-Treatment: OT Co-Treatment Reason: seen with OT to maximize safety and promote maximum participation Prior to Session Communication: Bedside nurse Patient Position Received: Up in chair, Alarm off, not on at start of session Preferred Learning Style: auditory, kinesthetic General Comment: patient on 0.1 norepi and 0.02 epi drips to assist with BP response; 1LO2 NC, pacer VVI @50bpm, R IJ TLC with CVP monitoring, carlson, CT to suction (ok for waterseal for mobility per RN); tele, a-line Home Living: Home Living Type of Home: House Lives With: Spouse Home Adaptive Equipment: Walker rolling or standard, Cane, Other (Comment) (adjustable base bed; elevated toilet seat with removable handles, shower seat, grabbars) Home Layout: Multi-level, Laundry in basement Home Access: Stairs to enter without rails Entrance Stairs-Number of Steps: 2 Bathroom Shower/Tub: Tub/shower unit, Walk-in shower Bathroom Toilet: Handicapped height Bathroom Equipment: Grab bars in shower, Shower chair with back, Raised toilet seat with rails Home Living Comments: split level home with 7 steps up to bed/bath and 7 down to basement laundry with R HR support on both Prior Level of Function: Prior Function Per Pt/Caregiver Report Level of [place]: Independent with ADLs and functional transfers, Independent with homemaking with ambulation ADL Assistance: Independent Homemaking Assistance: Independent Ambulatory Assistance: Independent Hand Dominance: Left Prior Function Comments: community ambulator; noted mild BLUE with many flights of stairs or ambulating up hills Precautions: Precautions Medical Precautions: Cardiac precautions, Fall precautions, Oxygen therapy device and L/min Post-Surgical Precautions: Move in the Tube Precautions Comment: patient and education provided on MITT precautions and cardiac postop precautions. Vital Signs (Past 2hrs) Date/Time Vitals Session Patient Position Pulse Resp SpO2 BP MAP (mmHg) 08/11/24 1400 -- -- 95 20 96 % -- -- 08/11/24 1415 -- -- 94 19 98 % -- -- 08/11/24 1430 -- -- 95 20 97 % -- -- 08/11/24 1445 -- -- 99 17 95 % -- -- 08/11/24 1500 -- -- 100 25 96 % -- -- 08/11/24 1515 -- -- 93 19 95 % -- -- 08/11/24 1530 -- -- 96 21 95 % -- -- Vital Signs Comment: MAP 73; CVP 17. Patient with acute drop in ABP with MAP 48- 49 with standing and report of lightheadedness, change in pallor. all other vitals stable. pt assisted safely to sitting - No LOC but required ongoing cues for performing LE exercises to improve venous return. RN notified and arrived at bedside. Returned to 84/44(60) after 5 minutes sitting; HR 94, CVP 12, RR 23, [id number]%. Patient also with large amount of chest tube and carlson output noted. Objective Pain: Pain Assessment Pain Assessment: 0-10 0-10 (Numeric) Pain Score: 5 - Moderate pain Pain Type: Acute pain, Surgical pain Pain Location: Sternum Pain Orientation: Right, Mid, Upper Pain Descriptors: Sore Pain Frequency: Constant/continuous Pain Interventions: Medication (See MAR), Repositioned, Ambulation/increased activity, Distraction,Elevated, Rest, Relaxation technique Cognition: Cognition Overall Cognitive Status: Within Functional Limits Orientation Level: Oriented X4 General Assessments: General Observation General Observation: patient demonstrated limited mobility this visit related to phyisologic response to change in position; patient and presented with education and engaged in session prior to and following mobility trial. will benefit from ongoing PT in-house and following DC Activity Tolerance Endurance: Decreased tolerance for upright activites, Tolerates less than 10 min exercise with changes in vital signs Early Mobility/Exercise Safety Screen: Proceed with mobilization - No exclusion criteria met Activity Tolerance Comments: fair(-) (related to fluid shift with increased output in chest tube and carlson with standing concurrent with hypotension and prolonged recovery) Sensation Light Touch: No apparent deficits Sharp/Dull: No apparent deficits Strength Strength Comments: patient with grossly >3/5 strength in BUE and BLE Strength Strength Comments: patient with grossly >3/5 strength in BUE and BLE Perception Inattention/Neglect: Appears intact Coordination Movements are Fluid and Coordinated: Yes Postural Control Postural Control: Within Functional Limits Static Sitting Balance Static Sitting-Balance Support: Bilateral upper extremity supported, Feet supported Static Sitting-Level of Assistance: Close supervision Static Sitting-Comment/Number of Minutes: good balance Dynamic Sitting Balance Dynamic Sitting-Balance Support: Bilateral upper extremity supported, Feet supported Dynamic Sitting-Level of Assistance: Contact guard, Close supervision Dynamic Sitting-Balance: Lateral lean, Forward lean Dynamic Sitting-Comments: fair+ balance with cues for precautions Static Standing Balance Static Standing-Balance Support: Bilateral upper extremity supported Static Standing-Level of Assistance: Minimum assistance Static Standing-Comment/Number of Minutes: fair- balance with progressive hypotension ~1-2 minutes Dynamic Standing Balance Dynamic Standing-Balance Support: Bilateral upper extremity supported Dynamic Standing-Level of Assistance: Moderate assistance Dynamic Standing-Comments: related to hypotension. Functional Assessments: Bed Mobility Bed Mobility: No (anticipate mod A x1 with logroll) Transfers Transfer: Yes Transfer 1 Technique 1: Sit to stand Transfer Device 1: Cardio-thoracic walker Transfer Level of Assistance 1: Set up, Minimum assistance, +2, Moderate tactile cues, Maximum verbal cues Trials/Comments 1: 2 attempts from regular surface height with impaired concenctric/eccentric control Ambulation/Gait Training Ambulation/Gait Training Performed: No (related to impaired vitals/lightheadeness, ambulation was deferred. anticipate min A to CGA with cardio-thoracic/nezzie walker once vitals stabilize) Stairs Stairs: No Extremity/Trunk Assessments: Cervical Spine Cervical Spine: Within Functional Limits Lumbar Spine Lumbar Spine : Within Functional Limits RUE RUE : Within Functional Limits LUE LUE: Within Functional Limits RLE RLE : Within Functional Limits LLE LLE : Within Functional Limits Treatments: Therapeutic Activity Therapeutic Activity Performed: Yes Therapeutic Activity 1: patient performed static standing with BUE support on walker ~2 minutes duration with min A x1-2; provided postural corrections. careful monitoring of pt's physiologic response and physical presentation. further mobility deferred 2/2 progressive lightheadedness and decreasedMAP. Therapeutic Activity 2: education on postop cardiac rehab initiation including ambulating frequently with staff A/S, progressive mobility, increased warm up/cool down times, postural corrections, splinted breathing. Transfers Transfer: Yes Transfer 1 Technique 1: Sit to stand Transfer Device 1: Cardio-thoracic walker Transfer Level of Assistance 1: Set up, Minimum assistance, +2, Moderate tactile cues, Maximum verbal cues Trials/Comments 1: 2 attempts from regular surface height with impaired concenctric/eccentric control (patient required physical A at hips/trunk and cues to avoid pulling up on walker. splinted with cardiac pillow support.) Transfers 2 Technique 2: Stand to sit Transfer Device 2: Cardio-thoracic walker Transfer Level of Assistance 2: Moderate assistance, +2, Maximum tactile cues, Maximum verbal cues Trials/Comments 2: patient with impaired sequencing and hand placement, physical A to lower into chair Outcome Measures: [facility] Basic Mobility Turning from your back to your side while in a flat bed without using bedrails: A lot Moving from lying on your back to sitting on the side of a flat bed without using bedrails: A lot Moving to and from bed to chair (including a wheelchair): A lot Standing up from a chair using your arms (e.g. wheelchair or bedside chair): A lot To walk in hospital room: A lot Climbing 3-5 steps with railing: Total Basic Mobility - Total Score: 11 FSS-ICU Ambulation: Unable to attempt due to weakness Rolling: Moderate assistance (performs 50 - 74% of task) Sitting: Maximal assistance (performs 25% - 49% of task) Transfer [id number]: Moderate assistance (performs 50 - 74% of task) Transfer [id number]: Maximal assistance (performs 25% - 49% of task) Total Score: 10 Early Mobility/Exercise Safety Screen: Proceed with mobilization - No exclusion criteria met ICU Mobility Scale: Standing [4] Encounter Problems Encounter Problems (Active) PT Problem Patient will complete bed mobility with logroll technique, HOB flat and MOD I (Progressing) Start: 08/11/24 Expected End: 08/25/24 Patient will complete all transfers (sit to/from standing, bed to/from chair) with mod I x1 and LRAD, using safe technique. (Progressing) Start: 08/11/24 Expected End: 08/25/24 Patient will ambulate mod I to independent >500 feet in 6 minutes with stable vitals, minimal ally BLUE, and normal gait speed. (Progressing) Start: 08/11/24 Expected End: 08/25/24 Patient will ascend/descend 7 stairs with HR support +/- LRAD and SBA, with adherence to precautions and safe technique (Progressing) Start: 08/11/24 Expected End: 08/25/24 Patient will recall and adhere to MITT precautions independently with all activities. (Progressing) Start: 08/11/24 Expected End: 08/25/24 Pain - Adult Safety LTG - Patient will adhere to hip precautions during ADL's and transfers Start: 08/10/24 LTG - Patient will demonstrate safety requirements appropriate to situation/environment Start: 08/10/24 LTG - Patient will utilize safety techniques Start: 08/10/24 STG - Patient locks brakes on wheelchair Start: 08/10/24 STG - Patient uses call light consistently to request assistance with transfers Start: 08/10/24 STG - Patient uses gait belt during all transfers Start: 08/10/24 Goal 1 Start: 08/10/24 Goal 2 Start: 08/10/24 Goal 3 Start: 08/10/24 Education Documentation Handouts, taught by Jessy Hernández, PT at 08/11/2024 3:41 PM. Learner: Significant Other, Patient Readiness: Acceptance Method: Explanation, Demonstration, Handout Response: Verbalizes Understanding, Demonstrated Understanding Comment: postop precautions, mobility, sequencing, transfer training, progressive mobility Precautions, taught by Jessy Hernández, PT at 08/11/2024 3:41 PM. Learner: Significant Other, Patient Readiness: Acceptance Method: Explanation, Demonstration, Handout Response: Verbalizes Understanding, Demonstrated Understanding Comment: postop precautions, mobility, sequencing, transfer training, progressive mobility Body Mechanics, taught by Jessy Hernández PT at 08/11/2024 3:41 PM. Learner: Significant Other, Patient Readiness: Acceptance Method: Explanation, Demonstration, Handout Response: Verbalizes Understanding, Demonstrated Understanding Comment: postop precautions, mobility, sequencing, transfer training, progressive mobility Home Exercise Program, taught by Jessy Hernández, PT at 08/11/2024 3:41 PM. Learner: Significant Other, Patient Readiness: Acceptance Method: Explanation, Demonstration, Handout Response: Verbalizes Understanding, Demonstrated Understanding Comment: postop precautions, mobility, sequencing, transfer training, progressive mobility Mobility Training, taught by Jessy Hernández PT at 08/11/2024 3:41 PM. Learner: Significant Other, Patient Readiness: Acceptance Method: Explanation, Demonstration, Handout Response: Verbalizes Understanding, Demonstrated Understanding Comment: postop precautions, mobility, sequencing, transfer training, progressive mobility Education Comments No comments found. * Rolo Hodgson OT - 08/11/2024 2:03 PM EST Occupational Therapy Evaluation Patient Name: Karla Cai Department: [place] [id number] ICU Room: [address] [place] [address] Today's Date: 08/11/2024 Time Calculation Start Time: 1038 Stop Time: 1107 Time Calculation (min): 29 min Assessment IP OT Assessment OT Assessment: (OT Eval complete, patient is weak and deconditioned. Patient with decreased activity tolerance, decreased ADLs, decreased transfers. Patient would benefit from LOW intensity therapy to maximize functional independence.) Prognosis: Good Barriers to Discharge: Inaccessible home environment Evaluation/Treatment Tolerance: Patient limited by fatigue Medical Staff Made Aware: Yes End of Session Communication: Bedside nurse End of Session Patient Position: Up in chair, Alarm on Plan: Treatment Interventions: ADL retraining, Functional transfer training, Endurance training, Patient/family training, Neuromuscular reeducation OT Frequency: 3 times per week OT Discharge Recommendations: Moderate intensity level of continued care OT Recommended Transfer Status: Minimal assist OT - OK to Discharge: Yes Subjective Current Problem: 1. Aneurysm of ascending aorta without rupture (CMS-HCC) Height and weight Insert and maintain peripheral IV Saline lock IV lactated Ringer's infusion Surgical preparation Full code Height and weight Insert and maintain peripheral IV Saline lock IV Surgical preparation Full code Anesthesia Intraoperative Transesophageal Echocardiogram Anesthesia Intraoperative Transesophageal Echocardiogram Surgical Pathology Exam Surgical Pathology Exam Admit to inpatient Admit to inpatient Inpatient consult to Respiratory Care Inpatient consult to Respiratory Care CANCELED: NPO Diet Except: Sips with meds; Effective now CANCELED: Type And Screen CANCELED: Bath/Shower with Chlorhexidine Gluconate CANCELED: Admit to inpatient CANCELED: NPO Diet Except: Sips with meds; Effective now CANCELED: Bath/Shower with Chlorhexidine Gluconate CANCELED: Admit to inpatient CANCELED: Type And Screen General: General Reason for Referral: (s/p Ascending Aortic Replacement, L atrial appendhage clip, posterior pericardial window.) Referred By: (Pack) Past Medical History Relevant to Rehab: Past Medical History: Diagnosis Date Allergic rhinitis Aortic regurgitation Arthritis bilateral feet Ascending aortic aneurysm (CMS-HCC) Breast cancer (Multi) 2010 s/p lumpectomy,radiation and tamoxifen CKD (chronic kidney disease) stage 2 Diverticulitis no issues since 2019 DM (diabetes mellitus) (Multi) diet controlled GERD (gastroesophageal reflux disease) occasional symptoms HLD (hyperlipidemia) Hypertension Hypokalemia Kidney cyst, acquired Mitral regurgitation Osteopenia Tricuspid regurgitation Family/Caregiver Present: Yes Caregiver Feedback: (Spouse present) Co-Treatment: PT Co-Treatment Reason: (To maximize patient participation.) Prior to Session Communication: Bedside nurse Patient Position Received: Up in chair, Alarm on General Comment: patient on 0.1 norepi and 0.02 epi drips to assist with BP response; 1LO2 NC, pacer VVI @50bpm, R IJ TLC with CVP monitoring, carlson, CT to suction (ok for waterseal for mobility per RN); tele, a-line Precautions: Medical Precautions: Cardiac precautions Post-Surgical Precautions: Move in the Tube Vital Sign (Past 2hrs) Date/Time Vitals Session Patient Position Pulse Resp SpO2 BP MAP (mmHg) 08/11/24 1203 -- -- -- -- 96 % -- -- Vital Signs Comment: MAP 73; CVP 17. Patient with acute drop in ABP with MAP 48- 49 with standing and report of lightheadedness, change in pallor. all other vitals stable. pt assisted safely to sitting - No LOC but required ongoing cues for performing LE exercises to improve venous return. RN notified and arrived at bedside. Returned to 84/44(60) after 5 minutes sitting; HR 94, CVP 12, RR 23, [id number]%. Patient also with large amount of chest tube and carlson output noted. Pain: Pain Assessment Pain Assessment: 0-10 0-10 (Numeric) Pain Score: 5 - Moderate pain Pain Type: Acute pain, Surgical pain Pain Location: Chest Pain Orientation: Right, Upper Pain Descriptors: Sore Pain Frequency: Constant/continuous Objective Cognition: Overall Cognitive Status: Within Functional Limits Orientation Level: Oriented X4 Home Living: Type of Home: (2 story home with 2 steps, bed/bath on 2nd floor, 7 steps, R HR, tub/shower combo, raised toilet seat.) Lives With: Spouse Home Adaptive Equipment: (Raised tolet seat, shower seat, grab bars, crutches, wheeled walker.) Prior Function: Level of [place]: Independent with ADLs and functional transfers Receives Help From: (Spouse) ADL Assistance: Independent Homemaking Assistance: Independent Ambulatory Assistance: Independent Hand Dominance: Left Prior Function Comments: (Community ambulator) IADL History: Homemaking Responsibilities: Yes Meal Prep Responsibility: Primary ADL: Equipment: (Shower seat, grab bars.) Eating Assistance: Independent Grooming Assistance: Stand by Bathing Assistance: Minimal UE Dressing Assistance: Moderate (Assist to don hospital gown around shoulders.) LE Dressing Assistance: Stand by (To don/doff socks.) Toileting Assistance with Device: Minimal Functional Assistance: Stand by Activity Tolerance: Endurance: Tolerates 10 - 20 min exercise with multiple rests Activity Tolerance Comments: (Fair activity tolerance, BP dropped when standing MAP was 49 returnedto chair and callled RN.) Bed Mobility/Transfers: Bed Mobility Bed Mobility: No (Patient had to be returned to chair due to low BP) Transfers Transfer: Yes Transfer 1 Transfer From 1: Sit to Transfer to 1: Stand Technique 1: Sit to stand Transfer Device 1: Cardio-thoracic walker Transfer Level of Assistance 1: Minimum assistance Trials/Comments 1: (2 attempts required.) Sitting Balance: Static Sitting Balance Static Sitting-Balance Support: Feet supported Static Sitting-Level of Assistance: Close supervision Dynamic Sitting Balance Dynamic Sitting-Balance Support: Feet supported Dynamic Sitting-Level of Assistance: Contact guard Dynamic Sitting-Balance: Forward lean Standing Balance: Static Standing Balance Static Standing-Balance Support: Bilateral upper extremity supported Static Standing-Level of Assistance: Minimum assistance IADL's: Homemaking Responsibilities: Yes Meal Prep Responsibility: Primary Vision: Vision - Basic Assessment Current Vision: Wears glasses all the time Sensation: Light Touch: No apparent deficits Sharp/Dull: No apparent deficits Perception: Inattention/Neglect: Appears intact Coordination: Movements are Fluid and Coordinated: Yes Outcome Measures: [facility] Daily Activity Putting on and taking off regular lower body clothing: A little Bathing (including washing, rinsing, drying): A lot Putting on and taking off regular upper body clothing: A little Toileting, which includes using toilet, bedpan or urinal: A lot Taking care of personal grooming such as brushing teeth: A little Eating Meals: None Daily Activity - Total Score: 17 Goals: Encounter Problems Encounter Problems (Active) ADLs Patient will perform UB and LB bathing with independent level of assistance. Start: 08/11/24 Expected End: 08/25/24 Patient with complete upper body dressing with independent level of assistance donning and doffing all UE clothes with no adaptive equipment while edge of bed Start: 08/11/24 Expected End: 08/25/24 Patient with complete lower body dressing with independent level of assistance donning and doffing all LE clothes with no adaptive equipment while standing Start: 08/11/24 Expected End: 08/25/24 Patient will complete daily grooming tasks brushing teeth and washing face/hair with independent level of assistance and PRN adaptive equipment while standing. Start: 08/11/24 Expected End: 08/25/24 Patient will complete toileting including hygiene clothing management/hygiene with independent level of assistance and raised toilet seat. Start: 08/11/24 Expected End: 08/25/24 BALANCE Pt will maintain dynamic standing balance during ADL task with independent level of assistance in order to demonstrate decreased risk of falling and improved postural control. Start: 08/11/24 Expected End: 08/25/24 TRANSFERS Patient will perform bed mobility independent level of assistance and bed rails in order to improvesafety and independence with mobility Start: 08/11/24 Expected End: 08/25/24 Patient will complete functional transfer to all surfaces with least restrictive device with independent level of assistance. Start: 08/11/24 Expected End: 08/25/24 * Paul Hodgson RN - 08/11/2024 10:15 AM EST 08/11/24 1015 Discharge Planning Living Arrangements Spouse/significant other Support Systems Spouse/significant other Assistance Needed none Type of Residence Private residence Number of Stairs to Enter Residence 1 Number of Stairs Within Residence 14 Do you have animals or pets at home? No Who is requesting discharge planning? Provider Home or Post Acute Services In home services Type of Home Care Services Home OT;Home PT;Home nursing visits Expected Discharge Disposition Home H Does the patient need discharge transport arranged? No Financial Resource Strain How hard is it for you to pay for the very basics like food, housing, medical care, and heating? Not hard Housing Stability In the last 12 months, was there a time when you were not able to pay the mortgage or rent on time?N In the past 12 months, how many times have you moved where you were living? 0 Transportation Needs In the past 12 months, has lack of transportation kept you from medical appointments or from getting medications? no In the past 12 months, has lack of transportation kept you from meetings, work, or from getting things needed for daily living? No Patient Choice Provider Choice list and [facility] website (https://medicare.gov/care-compare#search) for post-acute Quality and Resource Measure Data were provided and reviewed with: Patient I met with patient and family at bedside and explained tcc role. POD 1 AA repair. She lives in a house with her , was ambulating independently and driving prior to surgery. PT/OT evals pending. Patient is agreeable to [facility] on dc. * Alexy Burton APRN-TYRA - 08/11/2024 7:09 AM EST CTICU Progress Note Karla Edward Trell/[id number] Admit Date: 08/10/2024 Hospital Length of Stay: 1 ICU Length of Stay: 18h CT SURGEON: Laverne SUBJECTIVE: POD # 1. Extubated yesterday, OOB to chair overnight. Hemodynamically supported with epi 0.03 0 0.05 mcg/kg min, NE weaned off. MEDICATIONS Infusions: EPINEPHrine, Last Rate: 0.05 mcg/kg/min (08/11/24 0600) lactated Ringer's, Last Rate: 20 mL/hr (08/10/24 1900) lactated Ringer's norepinephrine, Last Rate: 0 mcg/kg/min (08/11/24 0250) Scheduled: acetaminophen, 650 mg, q6h aspirin, 81 mg, Daily ceFAZolin, 2 g, q8h insulin lispro, 0-15 Units, Before meals & nightly lactated Ringer's, 250 mL, Once lidocaine, 1 patch, q24h oxygen, , Continuous - Inhalation pantoprazole, 40 mg, Daily before breakfast Or pantoprazole, 40 mg, Daily before breakfast polyethylene glycol, 17 g, Daily sennosides-docusate sodium, 2 tablet, BID PRN: alteplase, 2 mg, PRN HYDROmorphone, 0.2 mg, q15 min PRN magnesium sulfate, 2 g, q6h PRN magnesium sulfate, 4 g, q6h PRN naloxone, 0.2 mg, q5 min PRN ondansetron ODT, 4 mg, q8h PRN Or ondansetron, 4 mg, q8h PRN oxyCODONE, 10 mg, q4h PRN oxyCODONE, 5 mg, q4h PRN potassium chloride CR, 20 mEq, q6h PRN Or potassium chloride, 20 mEq, q6h PRN potassium chloride CR, 40 mEq, q6h PRN Or potassium chloride, 40 mEq, q6h PRN potassium chloride, 20 mEq, q6h PRN potassium chloride, 40 mEq, q6h PRN PHYSICAL EXAM: Visit Vitals BP 101/58 Pulse 89 Temp 36.7 C (98 F) (Skin) Resp 15 Ht 1.753 m (5' 9) Wt 78.9 kg (173 lb 15.1 oz) SpO2 96% BMI 25.69 kg/m OB Status Hysterectomy Smoking Status Never BSA 1.96 m Wt Readings from Last 5 Encounters: 08/11/24 78.9 kg (173 lb 15.1 oz) 07/29/24 77 kg (169 lb 12.1 oz) 06/24/24 77.1 kg (170 lb) 06/09/24 78 kg (171 lb 15.3 oz) 05/27/24 78.2 kg (172 lb 5 oz) INTAKE/OUTPUT: I/O last 3 completed shifts: In: 6769.9 (85.8 mL/kg) [I.V.:658.5 (8.3 mL/kg); Blood:1562; IV Piggyback:4549.4] Out: 3520 (44.6 mL/kg) [Urine:1980 (0.7 mL/kg/hr); Blood:250; Chest Tube:1290] Weight: 78.9 kg Vent settings: Vent Mode: Pressure support S RR: [14] 14 S VT: [400 mL-500 mL] 500 mL PEEP/CPAP (cm H2O): [5 cm H20] 5 cm H20 HI SUP: [5 cm H20] 5 cm H20 MAP (cm H2O): [7.4-7.7] 7.5 Physical Exam: - CONSTITUTION: NAD, moderately uncomfortable - NEUROLOGIC: non focal, ambulatory - CARDIOVASCULAR: RRR, pulses equal systemically - RESPIRATORY: Unlabored, diminished bases. No air leaks to Cts - GI: + BS, NT, ND - : carlson with low urine output - EXTREMITIES: no edema - SKIN: warm, dry - PSYCHIATRIC: calm & cooperative Daily Risk Screen Intubated: no Central line: 08/10 Carlson: 08/10 Images: CXR with expected post op changes, LLL effusion. Invasive Hemodynamics: Most Recent Range Past 24hrs BP (Art) 103/55 Arterial Line BP 1 Min: 74/42 Max: 118/65 MAP(Art) 73 mmHg Arterial Line MAP 1 (mmHg) Min: 53 mmHg Max: 86 mmHg RA/CVP No data recorded PA No data recorded PA(mean) No data recorded CO No data recorded CI No data recorded Mixed Venous No data recorded SVR No data recorded Assessment/Plan 73 y.o. F PMHx of Ascending aortic aneurysm with mild AI, breast CA, CKD II, pre-DM, diverticulitis, GERD, HLD, and HTN now s/p ascending Ao replacement ([place]), LAAC (45mm Atriclip), and pericardial window 08/10/[address] Galloway. Neuro: # Acute postop pain - Serial neuro and pain assessments - Analgesia: scheduled Tylenol, PRN Oxy, Lidoderm patches - PT/OT/MITT - Olopatadine eye gtts as needed CV: # Asc Ao aneurysm s/p Asc Ao replacement with LAAC 08/[address] Galloway. Normal biV pre and post CPB, new LBBB # H/O HTN, HLD # Vasodilatory hypotension. Arrived to ICU on epi and NE - Cont EKG, ABP - Maintain MAP 70-90, wena NE as needed - Wean off epi after volume resuscitation - Maintain and monitor CTs for quantity, quality of drainage - Continue ASA, statin - Hold BB until HDs permit - Hold home irbesartan, spironolactone for now Pulm: # Expected post op respiratory insufficiency s/p sternotomy. Oxygenating adequately with NC 1LPM. Cts: - 24 Left pleural duncan & 1 mediastinal, output has slowed, no air leaks. - Daily CRX - Wean FiO2 to SpO2 > 92% - BPH - Remove CT's per protocol GI: # H/O Diverticulitis - ADAT - Bowel regimen to stool daily - GI ppx: not indicated - Zofran PRN /Renal: # H/O Stage II CKD (baseline Cr 0.9) - RFP daily, replete lytes per protocol - Continue Carlson for strict I&Os, remove as hemodynamics normalize Heme/Onc: # Acute blood loss anemia, zoie-op coagulopathy. # Hx breast CA s/p lumpectomy and XRT - CBC daily - DVTppx: SCDs, Lovenox POD1 if appropriate Endo: PreDM with last A1c 5.9 - POCT BG, ISS q4 - Maintain BG < 180. Hypoglycemia protocol ID: Afebrile, no s/s infection - Trend temp, WBCs - Periop abx cefaz x 48 hrs Code status: Full Code Emergency contact: Dominic Stephenson personally spent 50 minutes of critical care time directly and personally managing the patient exclusive of separately billable procedures. A,B,C,D,E,F,G: reviewed Dispo: CTICU care for now. CTICU TEAM PHONE [phone] documented in this [facility] Work Phone: [phone] [phone] Miscellaneous Notes* Post-Procedure Note - Adriana Garnica PA-C - 08/22/2024 9:33 AM EST Temporary V epicardial pacing wire(s) site cleaned with chlorhexidine, suture cut, wire(s) cut at skin without difficulty. Dry sterile dressing applied. Patient tolerated well with no s/s complication. Patient instructed wires were cut, it is safe to have MRI if ever needed & to call and schedulean appointment with cardiac surgeon if notice the wires poking through skin or any drainage from the site where pacing wires were located. RN updated. * Care Plan - Harika Diana RN - 08/21/2024 8:00 PM EST The patient's goals for the shift include Pt. will have a safe, restful and uneventful evening The clinical goals for the shift include Pt. will remain free of post op complications this shift Problem: Pain Goal: Takes deep breaths with improved pain control throughout the shift Outcome: Progressing Goal: Turns in bed with improved pain control throughout the shift Outcome: Progressing Goal: Walks with improved pain control throughout the shift Outcome: Progressing Goal: Performs ADL's with improved pain control throughout shift Outcome: Progressing Goal: Participates in PT with improved pain control throughout the shift Outcome: Progressing Goal: Free from opioid side effects throughout the shift Outcome: Progressing Goal: Free from acute confusion related to pain meds throughout the shift Outcome: Progressing Problem: Pain - Adult Goal: Verbalizes/displays adequate comfort level or baseline comfort level Outcome: Progressing Problem: Safety - Adult Goal: Free from fall injury Outcome: Progressing Problem: Discharge Planning Goal: Discharge to home or other facility with appropriate resources Outcome: Progressing Problem: Chronic Conditions and Co-morbidities Goal: Patient's chronic conditions and co-morbidity symptoms are monitored and maintained or improved Outcome: Progressing Problem: Fall/Injury Goal: Not fall by end of shift Outcome: Progressing Goal: Be free from injury by end of the shift Outcome: Progressing Goal: Verbalize understanding of personal risk factors for fall in the hospital Outcome: Progressing Goal: Verbalize understanding of risk factor reduction measures to prevent injury from fall in the home Outcome: Progressing Goal: Use assistive devices by end of the shift Outcome: Progressing Goal: Pace activities to prevent fatigue by end of the shift Outcome: Progressing Problem: Indwelling Catheter Maintenance Goal: I will have no complications from indwelling catheter Outcome: Progressing Problem: Deep Vein Thrombosis Goal: I will remain free from complications of deep vein thrombosis and maintain current level of mobility Outcome: Progressing Problem: Knowledge Deficit Goal: Patient/family/caregiver demonstrates understanding of disease process, treatment plan, medications, and discharge instructions Outcome: Progressing Problem: Mechanical Ventilation Goal: Patient Will Maintain Patent Airway Outcome: Progressing Goal: Oral health is maintained or improved Outcome: Progressing Goal: Tracheostomy will be managed safely Outcome: Progressing Goal: ET tube will be managed safely Outcome: Progressing Goal: Ability to express needs and understand communication Outcome: Progressing Goal: Mobility/activity is maintained at optimum level for patient Outcome: Progressing Problem: Skin Goal: Decreased wound size/increased tissue granulation at next dressing change Outcome: Progressing Goal: Participates in plan/prevention/treatment measures Outcome: Progressing Goal: Prevent/manage excess moisture Outcome: Progressing Goal: Prevent/minimize sheer/friction injuries Outcome: Progressing Goal: Promote/optimize nutrition Outcome: Progressing Goal: Promote skin healing Outcome: Progressing * Care Plan - Vanita Munguia RN - 08/19/2024 2:07 AM EST Problem: Pain Goal: Takes deep breaths with improved pain control throughout the shift Outcome: Progressing Goal: Turns in bed with improved pain control throughout the shift Outcome: Progressing Goal: Walks with improved pain control throughout the shift Outcome: Progressing Goal: Performs ADL's with improved pain control throughout shift Outcome: Progressing Goal: Participates in PT with improved pain control throughout the shift Outcome: Progressing Goal: Free from opioid side effects throughout the shift Outcome: Progressing Goal: Free from acute confusion related to pain meds throughout the shift Outcome: Progressing Problem: Safety - Adult Goal: Free from fall injury Outcome: Progressing The patient's goals for the shift include The clinical goals for the shift include Pt safety will be maintained in duration of the shift Over the shift, the patient did make progress toward the following goals. * Post-Procedure Note - JESSE Navarro - 08/18/2024 3:10 PM EST Interventional Radiology Brief Postprocedure Note Attending: Pee Tavares CNP Molding Technician: none Diagnosis: left sided pleural effusion Description of procedure: Ultrasound guided thoracentesis was preformed on the left. 850 mL of tory fluid was drained. Anesthesia: Local Complications: None Estimated Blood Loss: none Medications As of 08/18/24 1510 lactated Ringer's infusion (mL/hr) Total volume: 1,187.34 mL* Dosing weight: 78 *From user-documented volume Date/Time Rate/Dose/Volume Action 08/10/24 1353 20 mL/hr New Bag 1646 20 mL/hr - 57.67 mL Rate Verify 1900 20 mL/hr - 44.67 mL Rate Verify 08/11/24 0000 100 mL 0600 120 mL 08/12/24 1800 720 mL 2000 20 mL/hr - 40 mL Rate Verify 08/13/24 0000 20 mL/hr - 80 mL Rate Verify 0115 25 mL Stopped lactated Ringer's infusion (mL/hr) Total volume: Not documented* Dosing weight: 77.1 *Total volume has not been documented. View each administration to see the amount administered. Date/Time Rate/Dose/Volume Action 08/10/24 1353 *5 mL/hr Missed lactated Ringer's infusion (mL/hr) Total volume: 562.5 mL* Dosing weight: 82.8 *From user-documented volume Date/Time Rate/Dose/Volume Action 08/13/24 0115 30 mL/hr Rate Change 0400 30 mL/hr - 82.5 mL Rate Verify 0505 30 mL/hr New Bag 1109 30 mL/hr New Bag 2000 30 mL/hr - 480 mL Rate Verify EPINEPHrine (Adrenalin) 4 mg in dextrose 5% 250 mL (16 mcg/mL) infusion (premix) (mcg/kg/min) Totaldose: Cannot be calculated* Dosing weight: 77.1 *Total user-documented volume 203.63 mL may contain volume from other administrations Date/Time Rate/Dose/Volume Action 08/10/24 1355 0.03 mcg/kg/min - 8.67 mL/hr Rate Verify EPINEPHrine (Adrenalin) 4 mg in dextrose 5% 250 mL (16 mcg/mL) infusion (premix) (mcg/kg/min) Totaldose: Cannot be calculated* Dosing weight: 77.1 *Total user-documented volume 203.63 mL may contain volume from other administrations Date/Time Rate/Dose/Volume Action 08/10/24 1352 0.03 mcg/kg/min - 8.67 mL/hr New Bag 1450 0.05 mcg/kg/min - 14.46 mL/hr Rate Change 1900 0.05 mcg/kg/min - 14.46 mL/hr Rate Verify 2100 0.04 mcg/kg/min - 11.57 mL/hr Rate Change 2137 0.03 mcg/kg/min - 8.67 mL/hr Rate Change 2200 0.02 mcg/kg/min - 5.78 mL/hr Rate Change 2213 0.03 mcg/kg/min - 8.67 mL/hr Rate Change 2330 0.03 mcg/kg/min - 8.67 mL/hr Block Chart Start 08/11/24 0330 0.05 mcg/kg/min - 14.46 mL/hr Block Chart Stop 0400 0.05 mcg/kg/min - 14.46 mL/hr New Bag 0411 0.06 mcg/kg/min - 17.35 mL/hr Rate Change 0421 0.07 mcg/kg/min - 20.2 mL/hr Rate Change 0500 0.06 mcg/kg/min - 17.35 mL/hr Rate Change 0600 0.05 mcg/kg/min - 14.46 mL/hr Rate Change 0712 0.04 mcg/kg/min - 11.57 mL/hr Rate Change 0713 0.03 mcg/kg/min - 8.67 mL/hr Rate Change 0715 0.02 mcg/kg/min - 5.78 mL/hr Rate Change 2025 Stopped EPINEPHrine (Adrenalin) 4 mg in dextrose 5% 250 mL (16 mcg/mL) infusion (premix) (mcg/kg/min) Totaldose: Cannot be calculated* Dosing weight: 77.1 *Total user-documented volume 203.63 mL may contain volume from other administrations Date/Time Rate/Dose/Volume Action 08/11/24 0745 0.02 mcg/kg/min - 5.78 mL/hr Restarted 1000 0.02 mcg/kg/min - 5.78 mL/hr Rate Verify Canceled Entry 1444 Stopped norepinephrine (Levophed) 8 mg in dextrose 5% 250 mL (0.032 mg/mL) infusion (premix) (mcg/kg/min) Total dose: Cannot be calculated* Dosing weight: 77.1 *Total user-documented volume 516.97 mL may contain volume from other administrations Date/Time Rate/Dose/Volume Action 08/10/24 1503 0.05 mcg/kg/min - 7.23 mL/hr Rate Verify norepinephrine (Levophed) 8 mg in dextrose 5% 250 mL (0.032 mg/mL) infusion (premix) (mcg/kg/min) Total dose: Cannot be calculated* Dosing weight: 77.1 *Total user-documented volume 516.97 mL may contain volume from other administrations Date/Time Rate/Dose/Volume Action 08/10/24 1351 0.04 mcg/kg/min - 5.78 mL/hr New Bag 1648 0.06 mcg/kg/min - 8.67 mL/hr Rate Change 1744 0.05 mcg/kg/min - 7.23 mL/hr Rate Change 1749 0.04 mcg/kg/min - 5.78 mL/hr Rate Change 1758 0.05 mcg/kg/min - 7.23 mL/hr Rate Change 1802 0.06 mcg/kg/min - 8.67 mL/hr Rate Change 1824 0.05 mcg/kg/min - 7.23 mL/hr Rate Change 1835 0.04 mcg/kg/min - 5.78 mL/hr Rate Change 1852 0.02 mcg/kg/min - 2.89 mL/hr Rate Change 1900 0.02 mcg/kg/min - 2.89 mL/hr Rate Verify 1945 0.01 mcg/kg/min - 1.45 mL/hr Rate Change 2007 Stopped 2330 0.01 mcg/kg/min - 1.45 mL/hr Block Chart Start 08/11/24 0250 0 mcg/kg/min - 0 mL/hr Block Chart Stop 0712 0.01 mcg/kg/min - 1.45 mL/hr Rate Change 0713 0.02 mcg/kg/min - 2.89 mL/hr Rate Change 0715 0.03 mcg/kg/min - 4.34 mL/hr Rate Change norepinephrine (Levophed) 8 mg in dextrose 5% 250 mL (0.032 mg/mL) infusion (premix) (mcg/kg/min) Total dose: Cannot be calculated* Dosing weight: 77.1 *Total user-documented volume 516.97 mL may contain volume from other administrations Date/Time Rate/Dose/Volume Action 08/11/24 0952 0.03 mcg/kg/min - 4.34 mL/hr New Bag 1000 0.01 mcg/kg/min - 1.45 mL/hr Rate Change 1113 0.07 mcg/kg/min - 10.12 mL/hr Rate Change 1203 0.05 mcg/kg/min - 7.23 mL/hr Rate Change 1413 0.03 mcg/kg/min - 4.34 mL/hr Rate Change 1444 0.07 mcg/kg/min - 10.12 mL/hr Rate Change 1515 0.06 mcg/kg/min - 8.67 mL/hr Rate Change 1530 0.05 mcg/kg/min - 7.23 mL/hr Rate Change 1615 0.06 mcg/kg/min - 8.67 mL/hr Rate Change 1714 0.05 mcg/kg/min - 7.23 mL/hr Rate Change 1715 0.04 mcg/kg/min - 5.78 mL/hr Rate Change 1816 0.06 mcg/kg/min - 8.67 mL/hr Rate Change 2000 0.05 mcg/kg/min - 7.23 mL/hr Rate Change Canceled Entry 2130 0.05 mcg/kg/min - 7.23 mL/hr New Bag 2200 0.04 mcg/kg/min - 5.78 mL/hr Rate Change 08/12/24 0000 0.03 mcg/kg/min - 4.34 mL/hr Rate Change 0145 0.02 mcg/kg/min - 2.89 mL/hr Rate Change 0300 0.01 mcg/kg/min - 1.45 mL/hr Rate Change 0415 Stopped 0730 0.01 mcg/kg/min - 1.45 mL/hr Restarted 0735 0.02 mcg/kg/min - 2.89 mL/hr Block Chart Start 0900 0.07 mcg/kg/min - 10.12 mL/hr Block Chart Stop 1000 0.07 mcg/kg/min - 10.12 mL/hr Rate Verify 1100 0.06 mcg/kg/min - 8.67 mL/hr Rate Change 1130 0.05 mcg/kg/min - 7.23 mL/hr Rate Change 1136 0.04 mcg/kg/min - 5.78 mL/hr New Bag 1201 0.05 mcg/kg/min - 7.23 mL/hr Rate Change 1204 0.06 mcg/kg/min - 8.67 mL/hr Rate Change 1300 0.06 mcg/kg/min - 8.67 mL/hr Rate Verify 1400 0.06 mcg/kg/min - 8.67 mL/hr Rate Verify 1430 0.05 mcg/kg/min - 7.23 mL/hr Rate Change 1444 0.06 mcg/kg/min - 8.67 mL/hr Rate Change 1500 0.06 mcg/kg/min - 8.67 mL/hr Rate Verify 1600 0.06 mcg/kg/min - 8.67 mL/hr Rate Verify 1630 0.05 mcg/kg/min - 7.23 mL/hr Rate Change 1635 0.06 mcg/kg/min - 8.67 mL/hr Rate Change 1640 0.08 mcg/kg/min - 11.57 mL/hr Rate Change 1645 0.1 mcg/kg/min - 14.46 mL/hr Rate Change 1700 0.09 mcg/kg/min - 13.01 mL/hr Rate Change 1705 0.08 mcg/kg/min - 11.57 mL/hr Rate Change 1730 0.07 mcg/kg/min - 10.12 mL/hr Rate Change 1800 0.06 mcg/kg/min - 8.67 mL/hr Rate Change 2000 0.06 mcg/kg/min - 8.67 mL/hr Block Chart Start 08/13/24 0000 0.04 mcg/kg/min - 5.78 mL/hr Block Chart Stop 0001 0.04 mcg/kg/min - 5.78 mL/hr Block Chart Start 0400 0.04 mcg/kg/min - 5.78 mL/hr Block Chart Stop 0401 0.04 mcg/kg/min - 5.78 mL/hr Block Chart Start 0659 0.04 mcg/kg/min - 5.78 mL/hr Block Chart Stop 0720 0.05 mcg/kg/min - 7.23 mL/hr Rate Change 0735 0.07 mcg/kg/min - 10.12 mL/hr Rate Change 0934 0.09 mcg/kg/min - 13.01 mL/hr Rate Change 1018 0.09 mcg/kg/min - 13.01 mL/hr Rate Change 1037 0.08 mcg/kg/min - 11.57 mL/hr Rate Change norepinephrine (Levophed) 8 mg in dextrose 5% 250 mL (0.032 mg/mL) infusion (premix) (mcg/kg/min) Total dose: Cannot be calculated* Dosing weight: 77.1 *Total user-documented volume 516.97 mL may contain volume from other administrations Date/Time Rate/Dose/Volume Action 08/13/24 1057 0.08 mcg/kg/min - 11.57 mL/hr Rate Verify 1115 0.07 mcg/kg/min - 10.12 mL/hr Rate Change 1200 0.06 mcg/kg/min - 8.67 mL/hr Rate Change 1300 0.05 mcg/kg/min - 7.23 mL/hr Rate Change 1315 0.05 mcg/kg/min - 7.23 mL/hr Rate Verify 1345 0.04 mcg/kg/min - 5.78 mL/hr Rate Change 1400 0.03 mcg/kg/min - 4.34 mL/hr Rate Change 1500 0.02 mcg/kg/min - 2.89 mL/hr Rate Change 1600 0.03 mcg/kg/min - 4.34 mL/hr Rate Change 1715 0.05 mcg/kg/min - 7.23 mL/hr Rate Change 1734 0.06 mcg/kg/min - 8.67 mL/hr Rate Change 1745 0.08 mcg/kg/min - 11.57 mL/hr Rate Change 1930 0.06 mcg/kg/min - 8.67 mL/hr New Bag 2000 0.06 mcg/kg/min - 8.67 mL/hr Block Chart Start 08/14/24 0000 0.04 mcg/kg/min - 5.78 mL/hr Block Chart Stop 0001 0.04 mcg/kg/min - 5.78 mL/hr Block Chart Start 0400 Stopped oxygen (O2) therapy (percent) Total dose: Not documented* Dosing weight: 77.1 *Total volume has not been documented. View each administration to see the amount administered. Date/Time Rate/Dose/Volume Action 08/10/24 1245 50 percent Start 1354 Rate Change Medical Gas oxygen (O2) therapy (L/min) Total volume: Not documented* Dosing weight: 77.1 *Total volume has not been documented. View each administration to see the amount administered. Date/Time Rate/Dose/Volume Action 08/10/24 1838 4 L/min Start 1999 4 L/min Rate Verify Medical Gas 2006 3 L/min Rate Change Medical Gas 08/11/24 0004 2 L/min Rate Change Medical Gas 0424 1 L/min Rate Change Medical Gas oxygen (O2) therapy (L/min) Total volume: Not documented* Dosing weight: 78.9 *Total volume has not been documented. View each administration to see the amount administered. Date/Time Rate/Dose/Volume Action 08/11/24 0755 1 L/min Rate Verify Medical Gas 1203 1 L/min Rate Verify Medical Gas 1619 1 L/min Rate Verify Medical Gas 1929 1 L/min Rate Change Medical Gas oxygen (O2) therapy (L/min) Total volume: Not documented* Dosing weight: 82.8 *Total volume has not been documented. View each administration to see the amount administered. Date/Time Rate/Dose/Volume Action 08/12/24 0846 10 L/min Rate Change Medical Gas 1104 10 L/min Rate Verify Medical Gas 1610 10 L/min Rate Verify Medical Gas 1645 15 L/min Rate Verify Medical Gas oxygen (O2) therapy (L/min) Total volume: Not documented* Dosing weight: 82.8 *Total volume has not been documented. View each administration to see the amount administered. Date/Time Rate/Dose/Volume Action 08/12/24 1635 15 L/min Rate Change Medical Gas 1650 15 L/min Rate Verify Medical Gas oxygen (O2) therapy (L/min) Total volume: Not documented* Dosing weight: 82.8 *Total volume has not been documented. View each administration to see the amount administered. Date/Time Rate/Dose/Volume Action 08/12/24 1705 60 L/min Rate Verify Medical Gas 1916 60 L/min Rate Change Medical Gas 2328 60 L/min Rate Verify Medical Gas 08/13/24 0312 60 L/min Rate Verify Medical Gas 0341 60 L/min Rate Change Medical Gas 0727 60 L/min Rate Verify Medical Gas 1018 60 L/min Rate Verify Medical Gas oxygen (O2) therapy (L/min) Total volume: Not documented* Dosing weight: 84.6 *Total volume has not been documented. View each administration to see the amount administered. Date/Time Rate/Dose/Volume Action 08/13/24 1106 60 L/min Rate Verify Medical Gas 1512 60 L/min Rate Verify Medical Gas 08/14/24 0309 *50 percent Rate Change Medical Gas 0740 60 L/min Rate Verify Medical Gas 1119 50 L/min Rate Change Medical Gas 1323 40 L/min Rate Change Medical Gas 1540 6 L/min Rate Change Medical Gas 2007 6 L/min Rate Verify Medical Gas 08/15/24 0022 6 L/min Rate Verify Medical Gas oxygen (O2) therapy (L/min) Total volume: Not documented* Dosing weight: 81.3 *Total volume has not been documented. View each administration to see the amount administered. Date/Time Rate/Dose/Volume Action 08/15/24 0751 3 L/min Start 1109 2 L/min Rate Verify Medical Gas 1524 1 L/min Rate Change Medical Gas 2031 1 L/min Rate Verify Medical Gas 08/16/24 0800 1 L/min Rate Verify Medical Gas 2028 2 L/min Start 2350 1 L/min Rate Change Medical Gas oxygen (O2) therapy (L/min) Total volume: Not documented* Dosing weight: 82.9 *Total volume has not been documented. View each administration to see the amount administered. Date/Time Rate/Dose/Volume Action 08/17/24 1154 1 L/min Rate Verify Medical Gas 1537 1 L/min Rate Verify Medical Gas 2103 1 L/min Rate Verify Medical Gas 08/18/24 0824 1 L/min Rate Verify Medical Gas 1202 1 L/min Rate Verify Medical Gas pantoprazole (ProtoNix) EC tablet 40 mg (mg) Total dose: 40 mg Dosing weight: 77.1 Date/Time Rate/Dose/Volume Action 08/11/24 0611 40 mg Given pantoprazole (ProtoNix) injection 40 mg (mg) Total dose: Cannot be calculated* Dosing weight: 77.1 *Administration dose not documented Date/Time Rate/Dose/Volume Action 08/11/24 0611 *Not included in total See Alternative ceFAZolin (Ancef) 2 g in dextrose (iso) IV 100 mL (g) Total dose: 12 g* Dosing weight: 77.1 *From user-documented volume Date/Time Rate/Dose/Volume Action 08/10/24 2018 2 g (over 30 min) - 100 mL New Bag 2108 (over 30 min) Stopped 08/11/24 0407 2 g (over 30 min) - 100 mL New Bag 0437 (over 30 min) Stopped 1325 2 g (over 30 min) New Bag 1413 (over 30 min) Stopped 2023 2 g (over 30 min) New Bag 2117 200 mL Stopped 08/12/24 0500 2 g (over 30 min) New Bag 0605 100 mL Stopped 1211 2 g (over 30 min) New Bag 1241 (over 30 min) Stopped 1800 100 mL acetaminophen (Tylenol) tablet 650 mg (mg) Total dose: 1,300 mg* Dosing weight: 77.1 *Administration not included in total Date/Time Rate/Dose/Volume Action 08/10/24 1350 *650 mg Missed 1806 *650 mg Missed 08/11/24 0110 650 mg Given 0611 650 mg Given acetaminophen (Tylenol) tablet 975 mg (mg) Total dose: 8,775 mg Dosing weight: 78.9 Date/Time Rate/Dose/Volume Action 08/11/24 1520 975 mg Given 2300 975 mg Given 08/12/24 0604 975 mg Given 1503 975 mg Given 2201 975 mg Given 08/13/24 0816 975 mg Given 1458 975 mg Given 2215 975 mg Given 08/14/24 0813 975 mg Given acetaminophen (Tylenol) tablet 975 mg (mg) Total dose: 1,950 mg Dosing weight: 85 Date/Time Rate/Dose/Volume Action 08/14/24 2205 975 mg Given 08/15/24 0551 975 mg Given acetaminophen (Tylenol) tablet 650 mg (mg) Total dose: 650 mg Dosing weight: 82.9 Date/Time Rate/Dose/Volume Action 08/18/24 0840 650 mg Given lidocaine 4 % patch 1 patch (patch) Total dose: 2 patch* Dosing weight: 77.1 *Administration not included in total Date/Time Rate/Dose/Volume Action 08/10/24 1414 *1 patch (over 1440 min) Missed 08/11/24 1312 1 patch (over 1440 min) Medication Applied 08/12/24 1206 (over 1440 min) Medication Removed 1211 1 patch (over 1440 min) Medication Applied 08/13/24 0833 (over 1440 min) Medication Removed oxyCODONE (Roxicodone) immediate release tablet 5 mg (mg) Total dose: 75 mg Dosing weight: 77.1 Date/Time Rate/Dose/Volume Action 08/11/24 0520 5 mg Given 0823 5 mg Given 1311 5 mg Given 1801 5 mg Given 08/12/24 0804 5 mg Given 1211 5 mg Given 1728 5 mg Given 08/13/24 1156 5 mg Given 1657 5 mg Given 08/14/24 0949 5 mg Given 1746 5 mg Given 2205 5 mg Given 08/15/24 0937 5 mg Given 1822 5 mg Given 08/16/24 0859 5 mg Given oxyCODONE (Roxicodone) immediate release tablet 10 mg (mg) Total dose: 30 mg Dosing weight: 77.1 Date/Time Rate/Dose/Volume Action 08/12/24 0144 10 mg Given 08/13/24 0519 10 mg Given 2126 10 mg Given oxyCODONE (Roxicodone) immediate release tablet 5 mg (mg) Total dose: 0 mg Dosing weight: 82.9 Date/Time Rate/Dose/Volume Action 08/18/24 0837 *0 mg Return to Cabinet HYDROmorphone PF (Dilaudid) injection 0.2 mg (mg) Total dose: 0.4 mg Dosing weight: 77.1 Date/Time Rate/Dose/Volume Action 08/10/24 1848 0.2 mg Given 08/12/242119 0.2 mg Given aspirin chewable tablet 81 mg (mg) Total dose: 648 mg* Dosing weight: 77.1 *Administration not included in total Date/Time Rate/Dose/Volume Action 08/10/24 1350 *81 mg Missed 08/11/24 0823 81 mg Given 08/12/24 0803 81 mg Given 08/13/24 0816 81 mg Given 08/14/24 0812 81 mg Given 08/15/24 0931 81 mg Given 08/16/24 0849 81 mg Given 08/17/24 0832 81 mg Given 08/18/24 0839 81 mg Given polyethylene glycol (Glycolax, Miralax) packet 17 g (g) Total dose: 51 g* Dosing weight: 77.1 *Administration not included in total Date/Time Rate/Dose/Volume Action 08/10/24 1354 *17 g Missed 08/11/24 0823 17 g Given 08/12/24 0805 17 g Given 08/13/24 0813 17 g Given 08/14/24 0813 *17 g Missed 08/15/24 0719 *Not included in total Held by provider 0900 *17 g Missed 08/16/24 0900 *17 g Missed 08/17/24 0900 *17 g Missed 08/18/24 0900 *17 g Missed sennosides-docusate sodium (Zoie-Colace) 8.6-50 mg per tablet 2 tablet (tablet) Total dose: 14 tablet* Dosing weight: 77.1 *Administration not included in total Date/Time Rate/Dose/Volume Action 08/10/24 1355 *2 tablet Missed 2216 2 tablet Given 08/11/24822 2 tablet Given 2022 2 tablet Given 08/12/24 0803 2 tablet Given 2005 2 tablet Given 08/13/24 0816 2 tablet Given 2127 2 tablet Given 08/14/24 08 *2 tablet Missed 2015 *2 tablet Missed 08/15/24718 *Not included in total Held by provider 0900 *2 tablet Missed 2099 *2 tablet Missed 08/16/24 0900 *2 tablet Missed 2099 *2 tablet Missed 08/17/24 09 *2 tablet Missed 2099 *2 tablet Missed 08/18/24 09 *2 tablet Missed magnesium sulfate 2 g in sterile water for injection 50 mL (mL/hr) Total volume: Cannot be calculated* Dosing weight: 77.1 *Total user-documented volume 134.58 mL may contain volume from other administrations Date/Time Rate/Dose/Volume Action 08/10/24 1354 2 g - 25 mL/hr (over 120 min) New Bag 1502 (over 120 min) Stopped magnesium sulfate 2 g in sterile water for injection 50 mL (mL/hr) Total volume: Cannot be calculated* Dosing weight: 82.8 *Total user-documented volume 134.58 mL may contain volume from other administrations Date/Time Rate/Dose/Volume Action 08/12/24 0807 2 g - 25 mL/hr (over 120 min) New Bag 1022 (over 120 min) Stopped magnesium sulfate 2 g in sterile water for injection 50 mL (mL/hr) Total volume: Cannot be calculated* Dosing weight: 82.8 *Total user-documented volume 134.58 mL may contain volume from other administrations Date/Time Rate/Dose/Volume Action 08/12/24 1840 2 g - 25 mL/hr (over 120 min) New Bag 2040 (over 120 min) Stopped propofol (Diprivan) infusion (mcg/kg/min) Total dose: 836,700 mcg* Dosing weight: 77.1 *From user-documented volume Date/Time Rate/Dose/Volume Action 08/10/24 1352 40 mcg/kg/min - 18.5 mL/hr New Bag 1415 45 mcg/kg/min - 20.8 mL/hr Rate Change 1728 40 mcg/kg/min - 18.5 mL/hr Rate Change 1737 35 mcg/kg/min - 16.19 mL/hr Rate Change 1742 30 mcg/kg/min - 13.88 mL/hr Rate Change 1749 25 mcg/kg/min - 11.57 mL/hr Rate Change 1803 20 mcg/kg/min - 9.25 mL/hr Rate Change 1811 Stopped sodium chloride 0.9 % bolus 1,000 mL (mL/hr) Total volume: 599.4 mL* Dosing weight: 77.1 *From user-documented volume Date/Time Rate/Dose/Volume Action 08/10/24 1426 1,000 mL - 999 mL/hr (over 60 min) New Bag 1502 (over 60 min) Stopped 1646 599.4 mL sodium chloride 0.9 % bolus 500 mL (mL/hr) Total volume: Not documented* Dosing weight: 78.9 *Total volume has not been documented. View each administration to see the amount administered. Date/Time Rate/Dose/Volume Action 08/11/24 1112 500 mL - 999 mL/hr (over 30 min) New Bag 1211 (over 30 min) Stopped potassium chloride 20 mEq in sterile water for injection 100 mL (mL/hr) Total volume: Not documented* Dosing weight: 77.1 *Total volume has not been documented. View each administration to see the amount administered. Date/Time Rate/Dose/Volume Action 08/10/24 1602 20 mEq - 50 mL/hr (over 120 min) New Bag 1707 (over 120 min) Stopped insulin lispro injection 0-15 Units (Units) Total dose: 80 Units Dosing weight: 77.1 Date/Time Rate/Dose/Volume Action 08/10/24 1600 10 Units Given 2018 5 Units Given 08/11/24 0824 5 Units Given 1201 5 Units Given 1558 5 Units Given 2025 *Not included in total Missed 08/12/24 0751 *Not included in total Missed 1158 5 Units Given 1535 10 Units Given 2049 5 Units Given 08/13/24 0814 5 Units Given 1140 *Not included in total Missed 1657 5 Units Given 2128 5 Units Given 08/14/24 0821 5 Units Given 1131 5 Units Given 1542 *Not included in total Missed 2210 5 Units Given 08/15/24 0838 *Not included in total Missed 1200 *Not included in total Missed 1822 *Not included in total Missed 2013 *Not included in total Missed 08/16/24 0800 *Not included in total Missed 1104 *Not included in total Missed 1631 *Not included in total Missed 2104 *Not included in total Missed 08/17/24 0651 *Not included in total Missed 1140 *Not included in total Missed 1702 *Not included in total Missed 2134 *Not included in total Missed 08/18/24 0640 *Not included in total Missed 1203 *Not included in total Missed lactated Ringer's bolus 250 mL (mL) Total volume: 0 mL* Dosing weight: 78.9 *Administration not included in total Date/Time Rate/Dose/Volume Action 08/11/24 1143 *250 mL - 500 mL/hr (over 30 min) Missed lactated Ringer's bolus 500 mL (mL/hr) Total volume: 500 mL* Dosing weight: 77.1 *From user-documented volume Date/Time Rate/Dose/Volume Action 08/10/24 2108 500 mL - 250 mL/hr (over 120 min) [dose] - 500 mL [vol] New Bag 2315 (over 120 min) Stopped lactated Ringer's bolus 250 mL (mL/hr) Total volume: 250 mL* Dosing weight: 77.1 *From user-documented volume Date/Time Rate/Dose/Volume Action 08/11/24 0006 250 mL - 250 mL/hr (over 60 min) New Bag 0111 250 mL Stopped lactated Ringer's bolus 250 mL (mL/hr) Total volume: 250 mL* Dosing weight: 77.1 *From user-documented volume Date/Time Rate/Dose/Volume Action 08/11/24 0100 250 mL - 250 mL/hr (over 60 min) [dose] - 250 mL [vol] New Bag 0200 (over 60 min) Stopped lactated Ringer's bolus 250 mL (mL/hr) Total volume: 250 mL* Dosing weight: 78.9 *From user-documented volume Date/Time Rate/Dose/Volume Action 08/11/24 0711 250 mL - 500 mL/hr (over 30 min) [dose] - 250 mL [vol] New Bag 0747 (over 30 min) Stopped lactated Ringer's bolus 500 mL (mL/hr) Total volume: 1,000 mL* Dosing weight: 78.9 *From user-documented volume Date/Time Rate/Dose/Volume Action 08/11/24 1640 500 mL - 999 mL/hr (over 30 min) New Bag 1811 1,000 mL Stopped lactated Ringer's bolus 500 mL (mL/hr) Total volume: 500 mL* Dosing weight: 82.8 *From user-documented volume Date/Time Rate/Dose/Volume Action 08/13/24 0517 500 mL - 250 mL/hr (over 120 min) New Bag 0733 500 mL Stopped lactated Ringer's bolus 500 mL (mL/hr) Total volume: 500 mL* Dosing weight: 84.6 *From user-documented volume Date/Time Rate/Dose/Volume Action 08/13/24 0948 500 mL - 999 mL/hr (over 30 min) New Bag 1024 500 mL Stopped albumin human 5 % infusion 12.5 g (mL/hr) Total dose: 12.5 g* Dosing weight: 77.1 *From user-documented volume Date/Time Rate/Dose/Volume Action 08/11/24 0110 12.5 g - 250 mL/hr (over 60 min) New Bag 0219 250 mL Stopped albumin human 5 % infusion 25 g (mL/hr) Total dose: 25 g* Dosing weight: 82.8 *From user-documented volume Date/Time Rate/Dose/Volume Action 08/12/24 2004 25 g - 250 mL/hr (over 120 min) - 500 mL New Bag 2214 (over 120 min) Stopped pravastatin (Pravachol) tablet 20 mg (mg) Total dose: 140 mg Dosing weight: 78.9 Date/Time Rate/Dose/Volume Action 08/11/242022 20 mg Given 08/12/242005 20 mg Given 08/13/248 20 mg Given 08/14/242204 20 mg Given 08/15/242015 20 mg Given 08/16/242051 20 mg Given 08/17/24 204 20 mg Given calcium gluconate 100 mg/mL (10%) injection 2 g (g) Total dose: Cannot be calculated* Dosing weight: 78.9 *Administration dose not documented Date/Time Rate/Dose/Volume Action 08/11/24 Canceled Entry calcium gluconate 2 g in sodium chloride (iso) IV 100 mL (mL/hr) Total dose: 2 g* Dosing weight: 78.9 *From user-documented volume Date/Time Rate/Dose/Volume Action 08/11/24 1558 2 g - 100 mL/hr (over 60 min) New Bag 1703 100 mL Stopped potassium phosphates 15 mmol in dextrose 5% 250 mL IV (mL/hr) Total dose: 15 mmol* Dosing weight: 82.8 *From user-documented volume Date/Time Rate/Dose/Volume Action 08/12/24 1012 15 mmol - 63.8 mL/hr (over 240 min) New Bag 1421 (over 240 min) Stopped 1800 255 mL [vol] furosemide (Lasix) injection 40 mg (mg) Total dose: 80 mg Dosing weight: 82.8 Date/Time Rate/Dose/Volume Action 08/12/24 0833 40 mg Given 1728 40 mg Given furosemide (Lasix) injection 20 mg (mg) Total dose: 20 mg Dosing weight: 85 Date/Time Rate/Dose/Volume Action 08/16/24 1056 20 mg Given furosemide (Lasix) injection 20 mg (mg) Total dose: 20 mg Dosing weight: 85 Date/Time Rate/Dose/Volume Action 08/16/24 1537 20 mg Given furosemide (Lasix) injection 20 mg (mg) Total dose: 60 mg Dosing weight: 82.9 Date/Time Rate/Dose/Volume Action 08/17/24 0738 20 mg Given 2045 20 mg Given 08/18/24 0844 20 mg Given amiodarone (Nexterone) 150 mg in dextrose (iso) IV 100 mL (mg) Total dose: Cannot be calculated* Dosing weight: 82.8 *Total user-documented volume 787.1 mL may contain volume from other administrations Date/Time Rate/Dose/Volume Action 08/12/24 0830 150 mg (over 10 min) New Bag 0841 (over 10 min) Stopped amiodarone (Nexterone) in dextrose (iso) IV 150 mg/100 mL (1.5 mg/mL) - [employer] Override Pull (mg)Total dose: Cannot be calculated* *Total user-documented volume 787.1 mL may contain volume from other administrations Date/Time Rate/Dose/Volume Action 08/12/24 0830 150 mg (over 10 min) New Bag 0841 (over 10 min) Stopped amiodarone (Nexterone) 150 mg in dextrose (iso) IV 100 mL (mg) Total dose: Cannot be calculated* Dosing weight: 82.8 *Total user-documented volume 787.1 mL may contain volume from other administrations Date/Time Rate/Dose/Volume Action 08/12/24 0840 150 mg (over 10 min) New Bag 0850 (over 10 min) Stopped amiodarone (Nexterone) 150 mg in dextrose (iso) IV 100 mL (mg) Total dose: Cannot be calculated* Dosing weight: 82.8 *Total user-documented volume 787.1 mL may contain volume from other administrations Date/Time Rate/Dose/Volume Action 08/12/24 1628 150 mg (over 10 min) New Bag 1730 (over 10 min) Stopped amiodarone (Nexterone) in dextrose (iso) IV 150 mg/100 mL (1.5 mg/mL) - [employer] Override Pull (mg)Total dose: Cannot be calculated* *Total user-documented volume 787.1 mL may contain volume from other administrations Date/Time Rate/Dose/Volume Action 08/12/24 1628 150 mg (over 10 min) New Bag 1730 (over 10 min) Stopped amiodarone (Nexterone) infusion 1.8 mg/mL - [employer] Override Pull (mg/min) Total dose: Cannot be calculated* *Total user-documented volume 787.1 mL may contain volume from other administrations Date/Time Rate/Dose/Volume Action 08/12/24 0845 1 mg/min - 33.3 mL/hr New Bag amiodarone (Nexterone) 360 mg in dextrose,iso-osm 200 mL (1.8 mg/mL) infusion (premix) (mg/min) Total dose: Cannot be calculated* Dosing weight: 82.8 *Total user-documented volume 787.1 mL may contain volume from other administrations Date/Time Rate/Dose/Volume Action 08/12/24 0845 1 mg/min - 33.3 mL/hr New Bag 1135 1 mg/min - 33.3 mL/hr New Bag 08/13/24 0834 Stopped amiodarone (Nexterone) 360 mg in dextrose,iso-osm 200 mL (1.8 mg/mL) infusion (premix) (mg/min) Total dose: Cannot be calculated* Dosing weight: 82.8 *Total user-documented volume 787.1 mL may contain volume from other administrations Date/Time Rate/Dose/Volume Action 08/12/24 1420 0.5 mg/min - 16.67 mL/hr New Bag 1730 0.5 mg/min - 16.67 mL/hr New Bag 2000 0.5 mg/min - 16.67 mL/hr Rate Verify 08/13/24 0000 0.5 mg/min - 16.67 mL/hr Rate Verify 0400 0.5 mg/min - 16.67 mL/hr Rate Verify 0824 Stopped enoxaparin (Lovenox) syringe 40 mg (mg) Total dose: 280 mg Dosing weight: 82.8 Date/Time Rate/Dose/Volume Action 08/12/24 1158 40 mg Given 08/13/24 0813 40 mg Given 08/14/24 0813 40 mg Given 08/15/24 0931 40 mg Given 08/16/24 0850 40 mg Given 08/17/24 0833 40 mg Given 08/18/24 0839 40 mg Given vasopressin (Vasostrict) in 5% dextrose 100 mL IV 0.2 unit/mL - [employer] Override Pull (Units/min) Total dose: Cannot be calculated* *Total user-documented volume 277.5 mL may contain volume from other administrations Date/Time Rate/Dose/Volume Action 08/12/24 1649 0.03 Units/min - 9 mL/hr New Bag vasopressin (Vasostrict) 0.2 unit/mL in 5% dextrose 100 mL IV (Units/min) Total dose: Cannot be calculated* Dosing weight: 82.8 *Total user-documented volume 277.5 mL may contain volume from other administrations Date/Time Rate/Dose/Volume Action 08/12/24 1649 0.03 Units/min - 9 mL/hr New Bag 2000 0.03 Units/min - 9 mL/hr Rate Verify 08/13/24 0000 0.03 Units/min - 9 mL/hr Rate Verify 0304 0.03 Units/min - 9 mL/hr New Bag 0400 0.03 Units/min - 9 mL/hr Rate Verify 0825 Stopped vasopressin (Vasostrict) in 5% dextrose 100 mL IV 0.2 unit/mL - [employer] Override Pull (Units/min) Total dose: Cannot be calculated* *Total user-documented volume 277.5 mL may contain volume from other administrations Date/Time Rate/Dose/Volume Action 08/13/24 2216 0.03 Units/min - 9 mL/hr New Bag vasopressin (Vasostrict) 0.2 unit/mL in 5% dextrose 100 mL IV (Units/min) Total dose: Cannot be calculated* Dosing weight: 84.6 *Total user-documented volume 277.5 mL may contain volume from other administrations Date/Time Rate/Dose/Volume Action 08/13/24 2216 0.03 Units/min - 9 mL/hr New Bag 08/14/24 0000 0.03 Units/min - 9 mL/hr Rate Verify 0400 0.03 Units/min - 9 mL/hr Rate Verify 0638 0.03 Units/min - 9 mL/hr New Bag 0950 0.03 Units/min - 9 mL/hr Rate Verify 1330 Stopped piperacillin-tazobactam (Zosyn) 4.5 g in dextrose (iso) IV 100 mL (g) Total dose: 13.5 g* Dosing weight: 82.8 *From user-documented volume Date/Time Rate/Dose/Volume Action 08/12/24 2303 4.5 g (over 30 min) - 100 mL New Bag 2333 (over 30 min) Stopped 08/13/24 0505 4.5 g (over 30 min) - 100 mL New Bag 0535 0 mL Stopped 1156 4.5 g (over 30 min) New Bag 1301 100 mL Stopped 1657 4.5 g (over 30 min) New Bag 1927 (over 30 min) Stopped 2217 4.5 g (over 30 min) New Bag 2247 (over 30 min) Stopped 08/14/24 0509 4.5 g (over 30 min) New Bag 0539 (over 30 min) Stopped potassium chloride CR (Klor-Con M20) ER tablet 40 mEq (mEq) Total dose: 80 mEq Dosing weight: 85 Date/Time Rate/Dose/Volume Action 08/14/24 0812 40 mEq Given 08/17/24 0739 40 mEq Given potassium chloride CR (Klor-Con M20) ER tablet 20 mEq (mEq) Total dose: 20 mEq Dosing weight: 85 Date/Time Rate/Dose/Volume Action 08/16/24 1056 20 mEq Given potassium chloride CR (Klor-Con M20) ER tablet 20 mEq (mEq) Total dose: 20 mEq Dosing weight: 85 Date/Time Rate/Dose/Volume Action 08/16/24 1537 20 mEq Given potassium chloride CR (Klor-Con M20) ER tablet 20 mEq (mEq) Total dose: 40 mEq Dosing weight: 82.9 Date/Time Rate/Dose/Volume Action 08/17/24 1705 20 mEq Given 08/18/24 0840 20 mEq Given sodium chloride 3 % nebulizer solution 3 mL (mL) Total volume: 21 mL* Dosing weight: 85 *Administration not included in total Date/Time Rate/Dose/Volume Action 08/14/24 1131 3 mL Given 1540 3 mL Given 2006 3 mL Given 08/15/24 0752 3 mL Given 1112 3 mL Given 1525 3 mL Given 2041 3 mL Given 08/16/24 0759 *3 mL Missed ipratropium-albuteroL (Duo-Neb) 0.5-2.5 mg/3 mL nebulizer solution 3 mL (mL) Total volume: 21 mL* Dosing weight: 85 *Administration not included in total Date/Time Rate/Dose/Volume Action 08/14/24 1119 3 mL Given 1540 3 mL Given 2001 3 mL Given 08/15/24 0751 3 mL Given 1109 3 mL Given 1524 3 mL Given 2031 3 mL Given 08/16/24 0759 *3 mL Missed metoprolol tartrate (Lopressor) tablet 12.5 mg (mg) Total dose: 75 mg Dosing weight: 85 Date/Time Rate/Dose/Volume Action 08/14/24 1845 12.5 mg Given 08/15/24 0932 12.5 mg Given 2015 12.5 mg Given 08/16/24 0849 12.5 mg Given 2051 12.5 mg Given 08/17/24 0832 12.5 mg Given metoprolol tartrate (Lopressor) tablet 25 mg (mg) Total dose: 50 mg Dosing weight: 82.9 Date/Time Rate/Dose/Volume Action 08/17/24 2045 25 mg Given 08/18/24 0843 25 mg Given metoprolol tartrate (Lopressor) tablet 12.5 mg (mg) Total dose: 12.5 mg Dosing weight: 82.9 Date/Time Rate/Dose/Volume Action 08/17/24 1036 12.5 mg Given benzonatate (Tessalon) capsule 100 mg (mg) Total dose: 100 mg Dosing weight: 85 Date/Time Rate/Dose/Volume Action 08/15/24 0134 100 mg Given dextromethorphan-guaifenesin (Robitussin DM) 10-100 mg/5 mL oral liquid 10 mL (mL) Total volume: 10mL Dosing weight: 81.3 Date/Time Rate/Dose/Volume Action 08/15/24 2016 10 mL Given multivitamin with minerals 1 tablet (tablet) Total dose: 3 tablet Dosing weight: 81.3 Date/Time Rate/Dose/Volume Action 08/16/24 0850 1 tablet Given 08/17/24 0832 1 tablet Given 08/18/24 0840 1 tablet Given ferrous sulfate (325 mg ferrous sulfate) tablet 325 mg (mg) Total dose: 130 mg of iron Dosing weight: 82.9 Date/Time Rate/Dose/Volume Action 08/17/24 1325 325 mg Given 08/18/24 0840 325 mg Given lidocaine PF (Xylocaine) 10 mg/mL (1 %) injection (mL) Total volume: 10 mL Date/Time Rate/Dose/Volume Action 08/18/24 1504 10 mL Given No specimens collected See detailed result report with images in PACS. The patient tolerated the procedure well without incident or complication and is in stable condition. * Care Plan - Katelin Walsh RN - 08/18/2024 1:38 PM EST Problem: Pain Goal: Takes deep breaths with improved pain control throughout the shift Outcome: Progressing Goal: Turns in bed with improved pain control throughout the shift Outcome: Progressing Goal: Walks with improved pain control throughout the shift Outcome: Progressing Goal: Performs ADL's with improved pain control throughout shift Outcome: Progressing Goal: Free from opioid side effects throughout the shift Outcome: Progressing Goal: Free from acute confusion related to pain meds throughout the shift Outcome: Progressing Problem: Safety - Adult Goal: Free from fall injury Outcome: Progressing Problem: Discharge Planning Goal: Discharge to home or other facility with appropriate resources Outcome: Progressing Problem: Chronic Conditions and Co-morbidities Goal: Patient's chronic conditions and co-morbidity symptoms are monitored and maintained or improved Outcome: Progressing The patient's goals for the shift include The clinical goals for the shift include monitor vs, labs, I&O's; manage pain; promote safe ambulation with assistance; rest * Care Plan - Rachel Riddle RN - 08/18/2024 6:59 AM EST The patient's goals for the shift include The clinical goals for the shift include pt will remain HDS and free from injury throughout the shift Over the shift, the patient did make progress toward the following goals. * Assessment & Plan Note - Vita Hernandez Cap, APRN-SURGICAL ONCOLOGIST - 08/17/2024 9:18 AM EST Associated Problem(s): Acute respiratory distress syndrome (ARDS) (Multi) 73 y.o. F PMHx of Ascending aortic aneurysm with mild AI, breast CA, CKD II, pre-DM, diverticulitis, GERD, HLD, and HTN now s/p ascending Ao replacement (Gelweave), LAAC (45mm Atriclip), and pericardial window 08/10/[address] Galloway. Neuro: # expected Acute postop pain well controlled - Serial neuro and pain assessments - Analgesia: PRN Tylenol pain level & Oxy 5mg for breakthrough, dc oxy 10 mg - PT/OT/MITT - ambulate in caba - Olopatadine eye gtts as needed - Trazodone for Sleep CV: # Asc Ao aneurysm s/p Asc Ao replacement with LAAC 08/[address] Galloway. # Normal biV pre and post CPB,:08/12 TTE ef 49%reduced RV/lg left pleural effusion/ mild MR # new LBBB # H/O HTN, HLD # Vasodilatory hypotension resolved # Post op Afib RVR->NSR-> Accelerated junctional- > NSR #Epicardial wires capped - Continue ASA, statin - Metoprolol 12.5 mg bid titrate as HDs permit - Hold home irbesartan, spironolactone for now Pulm: # expected atelectasis -2L NC SpO2 92-100% # Acute hypoxic respiratory failure moderate ARDS P/F ratio 162 requiring Airvo- resolved Chest tubes removed POD#4 - Wean FiO2 to SpO2 > 90% - BPH - Duoneb prn - PA & lateral after more diuresis GI: Poor po Intake, +BM,+flatus # H/O Diverticulitis # LLQ intermittent abd pain- resolved - Regular Diet add fluid restriction - DC Mitchel per patient request, Ensure - Bowel regimen- on hold d/t frequent soft stool - Gas X - GI ppx: not indicated /Renal: Voiding - I/Os: since admission +8L/ last 24 hours -1395L (inaccurate missing hat); wt 82.9 today (08/16 85 ; preop 77kg) # expected post op fluid overload # H/O Stage II CKD (baseline Cr 0.9) - RFP daily, replete lytes per protocol - I&O - discussed hat front & back of toliet - Lasix 20 mg IV bid scheduled - K dur 40meq this am then 20meq bid Heme/Onc: # Acute blood loss anemia, zoie-op coagulopathy. POD#2 S/P 2 units prbc # Hx breast CA s/p lumpectomy and XRT - CBC daily and as needed - DVTppx: SCDs, Lovenox - MVI, start iron Endo: Pre DM with last A1c 5.9 - POCT BG, corrective scale qachs - Maintain BG < 180. Hypoglycemia protocol ID: afebrile Leukocytosis resolved; MRSA screen negative - Trend temp, WBCs - Periop abx cefaz x 48 hrs completed Dispo: SDU status; anticipating home with [facility] mid to late week Seen & Discussed plan with Dr Mcdonald Bedside RN, patient and all in agreement * Care Plan - Yuly Ferreira RN - 08/14/2024 11:27 PM EST The patient's goals for the shift include remain HDS this shift The clinical goals for the shift include control pain, remove Chest tubes, wean off pressors * Care Plan - Rob Masterson RN - 08/14/2024 7:44 AM EST The patient's goals for the shift include The clinical goals for the shift include control pain, remove Chest tubes, wean off pressors Problem: Pain Goal: Takes deep breaths with improved pain control throughout the shift Outcome: Progressing Goal: Turns in bed with improved pain control throughout the shift Outcome: Progressing Goal: Walks with improved pain control throughout the shift Outcome: Progressing Goal: Performs ADL's with improved pain control throughout shift Outcome: Progressing Goal: Participates in PT with improved pain control throughout the shift Outcome: Progressing Goal: Free from opioid side effects throughout the shift Outcome: Progressing Goal: Free from acute confusion related to pain meds throughout the shift Outcome: Progressing Problem: Pain - Adult Goal: Verbalizes/displays adequate comfort level or baseline comfort level Outcome: Progressing Problem: Safety - Adult Goal: Free from fall injury Outcome: Progressing Problem: Discharge Planning Goal: Discharge to home or other facility with appropriate resources Outcome: Progressing Problem: Chronic Conditions and Co-morbidities Goal: Patient's chronic conditions and co-morbidity symptoms are monitored and maintained or improved Outcome: Progressing Problem: Fall/Injury Goal: Not fall by end of shift Outcome: Progressing Goal: Be free from injury by end of the shift Outcome: Progressing Goal: Verbalize understanding of personal risk factors for fall in the hospital Outcome: Progressing Goal: Verbalize understanding of risk factor reduction measures to prevent injury from fall in the home Outcome: Progressing Goal: Use assistive devices by end of the shift Outcome: Progressing Goal: Pace activities to prevent fatigue by end of the shift Outcome: Progressing Problem: Indwelling Catheter Maintenance Goal: I will have no complications from indwelling catheter Outcome: Progressing Problem: Deep Vein Thrombosis Goal: I will remain free from complications of deep vein thrombosis and maintain current level of mobility Outcome: Progressing Problem: Knowledge Deficit Goal: Patient/family/caregiver demonstrates understanding of disease process, treatment plan, medications, and discharge instructions Outcome: Progressing Problem: Skin Goal: Decreased wound size/increased tissue granulation at next dressing change Outcome: Progressing Goal: Participates in plan/prevention/treatment measures Outcome: Progressing Goal: Prevent/manage excess moisture Outcome: Progressing Goal: Prevent/minimize sheer/friction injuries Outcome: Progressing Goal: Promote/optimize nutrition Outcome: Progressing Goal: Promote skin healing Outcome: Progressing * Care Plan - Yuly Ferreira RN - 08/14/2024 2:49 AM EST The patient's goals for the shift include wean off levo The clinical goals for the shift include patient will remain HDS throughout this shift * Care Plan - Mendoza Durham RN - 08/12/2024 6:18 PM EST The clinical goals for the shift include pt will remain HDS throughout this shift Over the shift, the patient did not make progress toward the following goals. Barriers to progression include Problem: Pain Goal: Takes deep breaths with improved pain control throughout the shift Outcome: Progressing Goal: Turns in bed with improved pain control throughout the shift Outcome: Progressing Goal: Walks with improved pain control throughout the shift Outcome: Progressing Goal: Performs ADL's with improved pain control throughout shift Outcome: Progressing Goal: Participates in PT with improved pain control throughout the shift Outcome: Progressing Goal: Free from opioid side effects throughout the shift Outcome: Progressing Goal: Free from acute confusion related to pain meds throughout the shift Outcome: Progressing Problem: Pain - Adult Goal: Verbalizes/displays adequate comfort level or baseline comfort level Outcome: Progressing Problem: Safety - Adult Goal: Free from fall injury Outcome: Progressing Problem: Discharge Planning Goal: Discharge to home or other facility with appropriate resources Outcome: Progressing Problem: Chronic Conditions and Co-morbidities Goal: Patient's chronic conditions and co-morbidity symptoms are monitored and maintained or improved Outcome: Progressing Problem: Fall/Injury Goal: Not fall by end of shift Outcome: Progressing Goal: Be free from injury by end of the shift Outcome: Progressing Goal: Verbalize understanding of personal risk factors for fall in the hospital Outcome: Progressing Goal: Verbalize understanding of risk factor reduction measures to prevent injury from fall in the home Outcome: Progressing Goal: Use assistive devices by end of the shift Outcome: Progressing Goal: Pace activities to prevent fatigue by end of the shift Outcome: Progressing Problem: Indwelling Catheter Maintenance Goal: I will have no complications from indwelling catheter Outcome: Progressing Problem: Deep Vein Thrombosis Goal: I will remain free from complications of deep vein thrombosis and maintain current level of mobility Outcome: Progressing Problem: Knowledge Deficit Goal: Patient/family/caregiver demonstrates understanding of disease process, treatment plan, medications, and discharge instructions Outcome: Progressing Problem: Mechanical Ventilation Goal: Patient Will Maintain Patent Airway Outcome: Progressing Goal: Oral health is maintained or improved Outcome: Progressing Goal: Tracheostomy will be managed safely Outcome: Progressing Goal: ET tube will be managed safely Outcome: Progressing Goal: Ability to express needs and understand communication Outcome: Progressing Goal: Mobility/activity is maintained at optimum level for patient Outcome: Progressing Problem: Skin Goal: Decreased wound size/increased tissue granulation at next dressing change Outcome: Progressing Goal: Participates in plan/prevention/treatment measures Outcome: Progressing Goal: Prevent/manage excess moisture Outcome: Progressing Goal: Prevent/minimize sheer/friction injuries Outcome: Progressing Goal: Promote/optimize nutrition Outcome: Progressing Goal: Promote skin healing Outcome: Progressing . * Significant Event - JESSE Wilks - 08/12/2024 5:18 PM EST Near syncope with standing, increased oxygen and pressor requirements.Chest tube output 210cc/3H Afib rate controlled 90-105 Pt sitting up in chair, weak, sleepy, conversant Denies chest pain, c/o SOB and reports pain at chest tube insertion sites, Heart sounds normal, no rub, murmur, or muffled heart sounds No JVD or widening Pulse pressure Chest tubes patent right thin maroon output, mead with thin SS with some clots no air leak noted Worsening Vasoplegia and hypoxemia etiology unclear Stat ABG, CXR, ECHO, Coags, additional amio bolus--> Converted to NSR 90's Additional dose Lasix Blood ordered will hold for now Start vasopressin, Airvo, repeat ABG and VBG (MINISTERIO) in [address] Galloway updated further recs pending echo and labs JESSE Wilks This critically ill patient continues to be at-risk for clinically significant deterioration / failure due to the above mentioned dysfunctional, unstable organ systems. I have personally identified and managed all complex critical care issues with efforts to prevent aforementioned clinical deterioration. Critical care time is spent at bedside and/or the immediate area and has included, but is notlimited to, the review of diagnostic tests, labs, radiographs, serial assessments of hemodynamics, respiratory status, ventilatory management, and family updates. Time spent in procedures and teaching are reported separately. CRITICAL CARE TIME: additional 50 minutes * Care Plan - Rob Masterson RN - 08/10/2024 3:41 PM EST The patient's goals for the shift include control pain, remain HDS Over the shift, the patient did not make progress toward the following goals. Barriers to progression include Problem: Pain Goal: Takes deep breaths with improved pain control throughout the shift Outcome: Progressing Goal: Turns in bed with improved pain control throughout the shift Outcome: Progressing Goal: Walks with improved pain control throughout the shift Outcome: Progressing Goal: Performs ADL's with improved pain control throughout shift Outcome: Progressing Goal: Participates in PT with improved pain control throughout the shift Outcome: Progressing Goal: Free from opioid side effects throughout the shift Outcome: Progressing Goal: Free from acute confusion related to pain meds throughout the shift Outcome: Progressing Problem: Discharge Planning Goal: Discharge to home or other facility with appropriate resources Outcome: Progressing Problem: Fall/Injury Goal: Not fall by end of shift Outcome: Progressing Goal: Be free from injury by end of the shift Outcome: Progressing Goal: Verbalize understanding of personal risk factors for fall in the hospital Outcome: Progressing Goal: Verbalize understanding of risk factor reduction measures to prevent injury from fall in the home Outcome: Progressing Goal: Use assistive devices by end of the shift Outcome: Progressing Goal: Pace activities to prevent fatigue by end of the shift Outcome: Progressing Problem: Indwelling Catheter Maintenance Goal: I will have no complications from indwelling catheter Outcome: Progressing Problem: Knowledge Deficit Goal: Patient/family/caregiver demonstrates understanding of disease process, treatment plan, medications, and discharge instructions Outcome: Progressing Problem: Mechanical Ventilation Goal: Patient Will Maintain Patent Airway Outcome: Progressing Goal: Oral health is maintained or improved Outcome: Progressing Goal: Tracheostomy will be managed safely Outcome: Progressing Goal: ET tube will be managed safely Outcome: Progressing Goal: Ability to express needs and understand communication Outcome: Progressing Goal: Mobility/activity is maintained at optimum level for patient Outcome: Progressing * Op Note - Joaquim Galloway MD - 08/10/2024 8:30 AM EST Ascending Aortic Replacement; Left Atrial Appendage Clip; Posterior Pericardial Window Operative Note Date: 08/10/2024 OR Location: [facility] OR Name: Karla Cai, : 1950, Age: 73 y.o., , Sex: Female Diagnosis Pre-op Diagnosis * Ascending aortic aneurysm Post-op Diagnosis * Ascending aortic aneurysm Procedures Ascending aortic replacement with 30mm Hemashield graft Left atrial appendage clip with 45mm AtriClip Posterior pericardial window Surgeons * Joaquim Galloway MD - Primary Resident/Fellow/Other Molding Technician: * ROSALIND Patterson - Assisting * JUAQUIN Payton - Assisting Staff: Die Drawing Checker: Mayra Jeffriesub Person: Eamon Pack Room Operator: Pamela Pack Room Operator: Yuri Anesthesia Staff: Anesthesiologist: DO Andree Cadena-AA: SUHAIL Flynn Admissions Assistant: Bette Garza; Adriana Sue SON: Howard Mijares Procedure Summary Anesthesia: General ASA: IV Estimated Blood Loss: 250mL Intra-op Medications: Administrations occurring from 0730 to 1300 on 08/10/24: Medication Name Total Dose sodium chloride 0.9 % irrigation solution 2,000 mL vancomycin (Vancocin) vial for injection 6 g fibrinogen (Riastap) injection 1,000 mg 1,150 mg albumin human 5 % 500 mL calcium chloride 10% 0.5 g ceFAZolin (Ancef) vial 1 g 4 g clevidipine (Cleviprex) 25 mg/50 mL IV 0.25 mg electrolyte-A (Plasmalyte-A) solution Cannot be calculated EPINEPHrine (Adrenalin) 4 mg in dextrose 5% 250 mL (16 mcg/mL) infusion (premix) 0.36 mg EPINEPHrine (Adrenalin) injection 1 mg/mL 8 mcg fentaNYL (Sublimaze) injection 50 mcg/mL 250 mcg heparin injection 1,000 units/mL 30,000 Units insulin regular 100 units/100 mL premix 10 Units LR bolus Cannot be calculated lidocaine (Xylocaine) injection 1 % 100 mg lidocaine (Xylocaine) 2 % 80 mg magnesium sulfate 50 % injection 2 g midazolam PF (Versed) injection 1 mg/mL 2 mg norepinephrine (Levophed) 8 mg in dextrose 5% 250 mL (0.032 mg/mL) infusion (premix) 0.41 mg norepinephrine (Levophed) 16 mcg/mL IV bolus 104 mcg oxygen (O2) therapy 50 percent propofol (Diprivan) injection 10 mg/mL 417.56 mg protamine injection 350 mg rocuronium (ZeMuron) 50 mg/5 mL injection 140 mg ropivacaine PF (Naropin) 0.5 % 40 mL tranexamic acid (Cyklokapron) 6,250 mg in sodium chloride 0.9% 312.5 mL (20 mg/mL) infusion 1,771.8mg Anesthesia Record Intraprocedure I/O Totals Intake PLATELETS 500.00 mL LR bolus 1000.00 mL [id number] IV solution 1500.00 mL Norepinephrine Drip 0.00 mL The total shown is the total volume documented since Anesthesia Start was filed. Clevidipine Drip 0.00 mL The total shown is the total volume documented since Anesthesia Start was filed. Tranexamic Acid 0.00 mL The total shown is the total volume documented since Anesthesia Start was filed. Insulin Drip 0.00 mL The total shown is the total volume documented since Anesthesia Start was filed. Epinephrine Drip 0.00 mL The total shown is the total volume documented since Anesthesia Start was filed. Cell Saver 680 mL Total Intake 3680 mL Output Urine 365 mL Est. Blood Loss 250 mL Total Output 615 mL Net Net Volume 3065 mL Specimen: ID Type Source Tests Collected by Time 1 : AORTIC TISSUE Tissue AORTA SURGICAL PATHOLOGY EXAM Joaquim Galloway MD 08/10/2024 0830 Drains and/or Catheters: Chest Tube 1 28 Fr (Active) Function -20 cm H2O 08/10/24 1600 Chest Tube Air Leak Yes 08/10/24 1600 Patency Intervention Tip/tilt 08/10/24 1600 Drainage Description Serosanguineous 08/10/24 1600 Dressing Status Clean;Dry;Occlusive 08/10/24 1600 Site Assessment Clean;Dry;Intact 08/10/24 1600 Surrounding Skin Dry;Intact 08/10/24 1600 Output (mL) 30 mL 08/10/24 1800 Chest Tube 2 24 Fr (Active) Urethral Catheter Non-latex 16 Fr. (Active) Site Assessment Clean;Skin intact 08/10/24 153 Collection Container Urometer 08/10/24 153 Securement Method Securing device (Describe) 08/10/24 153 Reason for Continuing Urinary Catheterization accurate hourly measurement of urine volume in a critically ill patient that cannot be assessed by other volumes and urine collection strategies 530 Output (mL) 50 mL 08/10/24 1800 Implants: Implants Type Name Action Serial No. Heart Valve CARDIOPLEGIA SET - [id number] Implanted Implant PATCH, FELT, 1 X 6 IN, EPTFE - [id number] Implanted Other Cardiac Implant DEVICE, ATRICLIP FLEX V, 45MM - [id number] Implanted Implant GRAFT, VASCUTEK GELWEAVE 30 X 30 - [id number] - [id number] Implanted [id number] Findings: Normal biventricular function pre- and post-bypass Mild aortic regurgitation pre-bypass. No aortic regurgitation post-bypass. Chest Tubes/Drains: - 24 Belgian left pleural Duncan drain - 28 Belgian mediastinal chest tube Temporary Pacing Wires: Ventricular -Settings: VVI 80 -Underlying Rhythm: Normal sinus rhythm Permanent pacer/ICD: No Sternotomy performed by: Joaquim Galloway MD Sternal Wires placed by: ROSALIND Patterson Cardio Pulmonary Bypass Time: 69 minutes Cross-clamp Time: 60 minutes Circulatory Arrest: No Time: N/A Is patient candidate for Emergency Re-sternotomy? Yes -If yes, POD #10 is - 08/20/24 Indications: Karla Cai is a 73-year-old female with a history of an ascending aortic aneurysm. She presents now for ascending aortic replacement. The patient was seen in the preoperative area. The risks, benefits, complications, treatment options, non-operative alternatives, expected recovery and outcomes were discussed with the patient. The possibilities of reaction to medication, pulmonary aspiration, injury to surrounding structures, bleeding, recurrent infection, the need for additional procedures, failure to diagnose a condition, and creating a complication requiring transfusion or operation were discussed with the patient. The patient concurred with the proposed plan, giving informed consent. The site of surgery was properly noted per policy. Preoperative antibiotics were administered within 1 hour of incision. Venous thrombosis prophylaxis was not indicated. Procedure Details: After informed consent and patient identification, the patient was brought to the operating room. She was positioned supine and an arterial monitoring line was placed. General anesthesia was induced and the patient was intubated. A ANASTASIA probe was placed in the esophagus and central venous access wasobtained. The surgical site was prepped and draped in sterile fashion. A surgical time-out was performed verifying the correct patient, procedure, timing and dosage of antibiotics, availability of blood, fire risk and instrument sterility prior to beginning the case. CANNULATION AND INITIATION OF CARDIOPULMONARY BYPASS: A midline incision was made on the chest. Bovie electrocautery was used to dissect down to the anterior table of the sternum. A reciprocating saw was used to make a sternotomy. The pericardium was divided and reflected laterally to create a well. The patient was systemically heparinized to an ACT of > 400 seconds. The distal ascending aorta and right atrium were cannulated. An indirect retrograde cardioplegia catheter was placed into the coronary sinus and an antegrade cardioplegia catheter was placed in the ascending aorta. Cardiopulmonary bypass was initiated. The aorta was cross clampedand cardioplegia was initiated. The heart was arrested in diastole with cold cardioplegia. The heart received cardioplegia at 15 to 20 minute intervals in antegrade fashion down the antegrade cardioplegia catheter and coronary ostia as well as in retrograde fashion down the coronary sinus. LEFT ATRIAL APPENDAGE CLIP A 45mm AtriClip was applied across the base of the left atrial appendage. ASCENDING AORTIC REPLACEMENT An aortotomy was created and the ascending aortic aneurysm was excised. A 30mm Gelweave graft was sewn end to end with 4-0 Prolene in running fashion to the ongoing aorta distally and the sinotubularjunction proximally. Adequate hemostasis was appreciated. POSTERIOR PERICARDIAL WINDOW A window was created in the posterior pericardium with Bovie electrocautery. DECANNULATION AND CHEST CLOSURE A new root vent was placed in the ascending aortic graft. Warm blood cardioplegia was given retrograde via the retrograde cardioplegia catheter. The patient was placed in Trendelenberg position. The heart was deaired and the aortic cross clamp was removed with the root vent on. The patient was weaned from cardiopulmonary bypass and the retrograde cardioplegia catheter was removed. The venous cannula was then removed. Once appropriate deairing was confirmed by ANASTASIA, the root vent was removed. Protamine was administered and the aortic cannula was removed. Ventricular epicardial pacing wires wereplaced. Hemostasis was achieved throughout the mediastinum. A 24 Belgian Duncan drain was placed in the left pleural space and a 28 Belgian chest tube was placed in the mediastinum. The sternum was re-approximated using stainless steel wires in interrupted fashion. We then proceeded with soft tissue closure. The fascia was closed with 0 Vicryl suture in running fashion. The subcutaneous layer was closed with 2-0 Vicryl suture in running fashion. The subcuticular layer was closed with 3-0 Monocryl suture in running fashion. Dermabond was placed as a biologic dressing. The needle, instrument, and sponge counts were correct x2. [facility]. Complications: None; patient tolerated the procedure well. Disposition: ICU - intubated and hemodynamically stable. Condition: Stable Task Performed by JUAQUIN or Pack Room Operator: Assistance with ascending aortic replacement and performance of chest closure Additional Details: None Attending Attestation: I performed the procedure. Joaquim Galloway MD * Brief Op Note - JUAQUIN Johns - 08/10/2024 8:30 AM EST Date: 08/10/2024 OR Location: [facility] OR Name: Kalra Cai, : 1950, Age: 73 y.o., , Sex: female Diagnosis Pre-op Diagnosis * Aneurysm of ascending aorta without rupture (CMS-HCC) [I71.21] Post-op Diagnosis * Aneurysm of ascending aorta without rupture (CMS-HCC) [I71.21] Procedures Ascending Aorta Replacement; Left Atrial Appendage Closure; Postereior Pericardial Window 54683 - HI -AORT GRF W/CARD BYP F/AORTIC DS OTH/THN DSJ Median Sternotomy Replacement of Ascending Aorta w/ 30 mm Gelweave Graft EDD Ligation w/ 45mm AtriClip Posterior Pericardial Window Chest Tubes/Drains: Duncan Drain to Posterior Window, Chest tube to Right Pleural Temporary Pacing Wires: Ventricular -Settings: Backup 50 VVI -Underlying Rhythm: Sinus Sternotomy performed by: Laverne FLETCHER Sternal Wires placed by: Chrystal BOYER Cardio Pulmonary Bypass Time: 69 min Cross-clamp Time: 60 min Is patient candidate for Emergency Re-sternotomy? Yes -If yes, POD #10 is - 08/20 Surgeons * Joaquim Galloway - Primary Resident/Fellow/Other Molding Technician: Chrystal REZA Staff: Die Drawing Checker: Mayra Faust Person: Eamon Pack Room Operator: Pamela Pack Room Operator: Yuri Anesthesia Staff: Anesthesiologist: Jah Olmedo DO C-AA: SUHAIL Flynn Admissions Assistant: Adriana Sue SON: Howard Mijares Procedure Summary Anesthesia: General ASA: IV Estimated Blood Loss: 250mL Intra-op Medications: Administrations occurring from 0730 to 1300 on 08/10/24: Medication Name Total Dose sodium chloride 0.9 % irrigation solution 2,000 mL vancomycin (Vancocin) vial for injection 6 g albumin human 25 % Cannot be calculated calcium chloride 10% 0.5 g ceFAZolin (Ancef) vial 1 g 2 g clevidipine (Cleviprex) 25 mg/50 mL IV 0.25 mg electrolyte-A (Plasmalyte-A) solution Cannot be calculated EPINEPHrine (Adrenalin) 4 mg in dextrose 5% 250 mL (16 mcg/mL) infusion (premix) 0.36 mg EPINEPHrine (Adrenalin) injection 1 mg/mL 8 mcg fentaNYL (Sublimaze) injection 50 mcg/mL 250 mcg heparin injection 1,000 units/mL 30,000 Units insulin regular 100 units/100 mL premix 10 Units LR bolus Cannot be calculated lidocaine (Xylocaine) injection 1 % 100 mg lidocaine (Xylocaine) 2 % 80 mg magnesium sulfate 50 % injection 2 g midazolam PF (Versed) injection 1 mg/mL 2 mg norepinephrine (Levophed) 8 mg in dextrose 5% 250 mL (0.032 mg/mL) infusion (premix) 0.52 mg norepinephrine (Levophed) 16 mcg/mL IV bolus 104 mcg propofol (Diprivan) injection 10 mg/mL 417.56 mg protamine injection 300 mg rocuronium (ZeMuron) 50 mg/5 mL injection 140 mg tranexamic acid (Cyklokapron) 6,250 mg in sodium chloride 0.9% 312.5 mL (20 mg/mL) infusion 1,771.8mg Anesthesia Record Intraprocedure I/O Totals Intake PLATELETS 250.00 mL LR bolus 1000.00 mL Norepinephrine Drip 0.00 mL The total shown is the total volume documented since Anesthesia Start was filed. Clevidipine Drip 0.00 mL The total shown is the total volume documented since Anesthesia Start was filed. Tranexamic Acid 0.00 mL The total shown is the total volume documented since Anesthesia Start was filed. Insulin Drip 0.00 mL The total shown is the total volume documented since Anesthesia Start was filed. Epinephrine Drip 0.00 mL The total shown is the total volume documented since Anesthesia Start was filed. albumin human 25% 500.00 mL Cell Saver 680 mL Total Intake 2430 mL Output Urine 365 mL Est. Blood Loss 250 mL Total Output 615 mL Net Net Volume 1815 mL Specimen: ID Type Source Tests Collected by Time 1 : AORTIC TISSUE Tissue AORTA SURGICAL PATHOLOGY EXAM Joaquim Galloway MD 08/10/202430 Findings: Asc Ao Aneurysm Complications: None; patient tolerated the procedure well. Disposition: ICU - intubated and hemodynamically stable. Condition: stable Specimens Collected: ID Type Source Tests Collected by Time 1 : AORTIC TISSUE Tissue AORTA SURGICAL PATHOLOGY EXAM Joaquim Galloway MD 08/10/2024 0830 Attending Attestation: I was present and scrubbed for the carvajal portions of the procedure. Joaquim Galloway Cosigned by Joaquim Galloway MD at 08/10/2024 11:44 AM EST documented in this [facility] Work Phone: [phone] Hospital course Narrative* Adriana Garnica PA-C - 08/22/2024 6:34 AM EST Discharge Diagnosis Aneurysm of ascending aorta without rupture ([facility]-HCC) Issues Requiring Follow-Up Asc Ao aneurysm s/p replacement Postoperative arrhythmias including Afib Test Results Pending At Discharge Pending Labs Order Current Status Extra Urine Bai Tube Collected (08/21/24 1228) Urinalysis with Reflex Culture and Microscopic In process Hospital Course Karla (Charley) Trell is a 73yo female with known ascending aortic aneurysm and mild AI who presentedfor elective outpatient Asc Ao aneurysm replacement with Gelweave 30mm, LAAC 45mm Atriclip, PPW with Dr. Galloway. Additional PMHx includes Rt breast CA s/p lumpectomy with XRT, HTN, HLD, CKD, diverticulitis. Postoperative course has been complicated by new LBBB, vasoplegia requiring pressor support (resolved), arrhythmia (Afib RVR > NSR > accelerated jxl > NSR > Afib > NSR), anemia requiring transfusion, acute hypoxic respiratory failure 2/2 both moderate ARDS requiring Airvo and large Lt pleural effusion s/p thoracentesis (08/18 for 850cc). She briefly had uptrending leukocytosis without any sxs infection or associated fevers, CXR and UA were negative for infectious etiology, and it began downtrending without intervention. Currently, she is hemodynamically stable, oxygenating well on RA, able to ambulate and has done stairs with PT/OT, and tolerating diuresis. Neuro: # Acute expected postop pain - well controlled - Scheduled Tylenol, PRN Oxy - PT/OT/MITT - Home olopatadine eye gtts, AREDs CV: # Asc Ao aneurysm s/p Asc Ao replacement, LAAC, PPW # Postoperative vasoplegia - resolved # Postoperative arrhythmia (Afib > NSR > accel. Jxl > NSR > Afib > NSR) - in NSR # New LBBB # Postoperative HFmrEF (normal biV pre and post CPB; 08/12 TTE EF 49% reduced RV/mild MR) # Hx HTN, HLD - ASA, statin, metoprolol 25 mg bid - PO Amio load x 1mo, Eliquis x 3mo - Hold home irbesartan, spironolactone for now. Can resume as outpatient per PCP, cardiology teams if appropriate Pulm: # Acute hypoxic respiratory failure 2/2 moderate ARDS requiring Airvo and large Lt pleural effusions/p thoracentesis - resolved 08/18 2v CXR increased Left pleural effusion s/p Lt thoracentesis (850cc serous fluid) - Aggressive bronchopulmonary hygiene, IS GI: # Poor po intake - improved # Hx Diverticulitis - Regular Diet - PRN bowel regimen /Renal # Total body fluid overload - improving # Hx Stage II CKD (baseline Cr 0.9) - PO Lasix with supplemental K x 1 week Heme/Onc: # Acute blood loss anemia and periop coagulopathy s/p transfusion - resolved # Hx breast CA s/p lumpectomy and XRT - MVI Endo: # PreDM (A1c 5.9) ID: # Leukocytosis - downtrending Afebrile, no sxs infection Pertinent Physical Exam At Time of Discharge Physical Exam Constitutional: General: She is not in acute distress. Appearance: Normal appearance. She is not ill-appearing or toxic-appearing. HENT: Mouth/Throat: Mouth: Mucous membranes are moist. Eyes: Pupils: Pupils are equal, round, and reactive to light. Cardiovascular: Rate and Rhythm: Normal rate and regular rhythm. Heart sounds: No murmur heard. No friction rub. Comments: Occasional PVC Pulmonary: Effort: Pulmonary effort is normal. No respiratory distress. Breath sounds: Normal breath sounds. No stridor. No wheezing. Abdominal: General: There is no distension. Palpations: Abdomen is soft. Tenderness: There is no abdominal tenderness. Comments: +BM Skin: General: Skin is warm and dry. Comments: Well approx Msi stable to palp no e/e/p wearing surgical bra Neurological: General: No focal deficit present. Mental Status: She is alert and oriented to person, place, and time. Psychiatric: Mood and Affect: Mood normal. Behavior: Behavior normal. Home Medications Medication List START taking these medications amiodarone 200 mg tablet; Commonly known as: Pacerone; Take 2 tablets (400 mg) by mouth 2 times a day for 10 days, THEN 1 tablet (200 mg) once daily for 20 days.; Start taking on: August 21, 2024 apixaban 5 mg tablet; Commonly known as: Eliquis; Take 1 tablet (5 mg) by mouth 2 times a day. aspirin 81 mg chewable tablet; Chew 1 tablet (81 mg) once daily. furosemide 20 mg tablet; Commonly known as: Lasix; Take 1 tablet (20 mg) by mouth 2 times daily (morning and late afternoon) for 7 days. metoprolol tartrate 25 mg tablet; Commonly known as: Lopressor; Take 1 tablet (25 mg) by mouth 2 times a day. Hold if heart rate < 60 and/or systolic blood pressure < 100 oxyCODONE 5 mg immediate release tablet; Commonly known as: Roxicodone; Take 1 tablet (5 mg) by mouth every 6 hours if needed for moderate pain (4 - 6) or severe pain (7 - 10) for up to 4 days. polyethylene glycol 17 gram packet; Commonly known as: Glycolax, Miralax; Take 17 g by mouth once daily as needed (Constipation). potassium chloride CR 20 mEq ER tablet; Commonly known as: Klor-Con M20; Take 1 tablet (20 mEq) by mouth 2 times a day for 7 days. Do not crush or chew. Take with Lasix (furosemide). simethicone 80 mg chewable tablet; Commonly known as: Mylicon; Chew 1.5 tablets (120 mg) 4 times a day as needed for flatulence (gas pains). CHANGE how you take these medications acetaminophen 325 mg tablet; Commonly known as: Tylenol; Take 2 tablets (650 mg) by mouth every 6 hours.; What changed: medication strength, how much to take, when to take this CONTINUE taking these medications B complex-vitamin C-folic acid 1-60-300 mg-mg-mcg tablet; Commonly known as: Nephro-Bull Rx beta carotene 3,000 mcg (10,000 unit) capsule; Commonly known as: vitamin A fluticasone 50 mcg/actuation nasal spray; Commonly known as: Flonase loratadine 10 mg disintegrating tablet; Commonly known as: Claritin Reditabs multivitamin tablet olopatadine 0.1 % ophthalmic solution; Commonly known as: Patanol pravastatin 20 mg tablet; Commonly known as: Pravachol PRESERVISION AREDS 2 PLUS MV ORAL STOP taking these medications irbesartan 300 mg tablet; Commonly known as: Avapro metoprolol succinate XL 100 mg 24 hr tablet; Commonly known as: Toprol-XL spironolactone 50 mg tablet; Commonly known as: Aldactone Outpatient Follow-Up Future Appointments Date Time Provider Department Center 08/27/2024 12:00 PM [id number] N[facility]SE [id number] Academic 10/07/2024 3:45 PM Joaquim Galloway MD [id number] Khadar Garnica PA-C documented in this [facility] Work Phone: [phone] 777-760112-10-2024 History and physical note* JESSE Navarro - 08/18/2024 2:51 PM EST H&P reviewed. The patient was examined and there are no changes to the H&P. Source Note - Barry Orr RN - 08/14/2024 1:01 PM EST Karla Cai is a 73 y.o. female on day 3 of admission presenting with Aneurysm of ascending aorta without rupture ([facility]). No PMH of DM, A1C is 6.1%, BS well controlled. Pt not in need of DMeducation. Will sign off. Barry Orr RN * Adriana Garnica PA-C - 08/10/2024 10:58 AM EST History Of Present Illness Karla Cai is a 73 y.o. female presenting for elective outpatient Asc Ao replacement, LAAC,PPW. PMHx ascending aortic aneurysm, HTN, HLD, CKD, breast cancer s/p lumpectomy with XRT, diverticulitis (no flare ups since 2019). [facility] s/p Asc Ao replacement (30mm Gelweave), LAAC (45mm Atriclip), PPW with Dr. Galloway on 08/10/24. OR Course: Procedure/Surgeon: Asc Ao replacement, LAAC, PPW; [place] CPB: 69 min XC: 60 min LVEF Pre normal LVEF, mildly diminished RV fx, mild AI, mod TR, mild/mod MR, RVSP 40s Post normal LVEF, mildly diminished RV fx, no AI, mod TR, mild/mod MR, RVSP improved to low 30s Chest Tubes/Drains: 0 left pleural, 1 right pleural, 1 mediastinal Temporary wires: V wires set to VVI 50, intrinsic wide complex 70s. EKG demonstrates new LBBB Airway: Easy mask, easy intubation Fluids: Crystalloid: 2500ml Colloid: 500mL Cellsaver: 625ml Product: 5pk platelets x2, Riastap x1, protamine pushes EBL: 250ml UOP: 365ml Infusions: Propofol, epinephrine 0.03, levophed 0.03 Meds: Versed: 2mg 0735 Fentanyl: last pre-pump Rocuronium: last pre-pump Abx: 2g Ancef, last re-dosed 1215 Past Medical History Past Medical History: Diagnosis Date Allergic rhinitis Aortic regurgitation Arthritis bilateral feet Ascending aortic aneurysm (CMS-HCC) Breast cancer (Multi) 2010 s/p lumpectomy,radiation and tamoxifen CKD (chronic kidney disease) stage 2 Diverticulitis no issues since 2018 DM (diabetes mellitus) (Multi) diet controlled GERD (gastroesophageal reflux disease) occasional symptoms HLD (hyperlipidemia) Hypertension Hypokalemia Kidney cyst, acquired Mitral regurgitation Osteopenia Tricuspid regurgitation Surgical History Past Surgical History: Procedure Laterality Date BREAST LUMPECTOMY Right 2011 BREAST RECONSTRUCTION Right BREAST SURGERY Left reduction CARDIAC CATHETERIZATION N/A 06/09/2024 Procedure: Left Heart Cath with Coronary Angiography and LV; Surgeon: Flaquita Hendrix MD; Location: [facility] Cardiac Family Court Counsellor; Service: Cardiovascular; Laterality: N/A; preop asc aorta replacement. [facility] Jun AT 11:00 AM PT WILL ARRIVE AT 9:30 AM - DR. HENDRIX CATARACT EXTRACTION Bilateral COLONOSCOPY 2018 HEMORRHOID SURGERY HYSTERECTOMY NEUROMA SURGERY Left 1998 acoustic neuroma TUBAL LIGATION Social History She reports that she has never smoked. She has never used smokeless tobacco. She reports current alcohol use. She reports that she does not use drugs. Family History Family History Problem Relation Name Age of Onset Hypertension Mother Colon cancer Mother Heart disease Father Prostate cancer Father Hypertension Father Ovarian cancer Sister Thyroid cancer Sister Diabetes Brother Hypertension Brother Allergies Amlodipine, Adhesive tape-silicones, Doxazosin, Lisinopril, and Meloxicam Review of Systems Reason unable to perform ROS: Intubated sedated. Physical Exam Constitutional: Comments: Sedated intubated elderly female laying in bed Cardiovascular: Rate and Rhythm: Normal rate and regular rhythm. Comments: Wide complex with appearance of ST elevation on tele. EKG with new LBBB Pulmonary: Effort: Pulmonary effort is normal. Breath sounds: No stridor. No wheezing or rhonchi. Comments: Coarse breath sounds bilaterally equal chest rise bilaterally intubated Cts with questionable air leak. Moderate sanguinous output Abdominal: General: There is no distension. Palpations: Abdomen is soft. There is no mass. Skin: General: Skin is warm and dry. Comments: Well approx MSI stable to palp no e/e/p Well healed lumpectomy scar circumferential around Rt areola with vertical aspect from areola to inferior aspect of Rt breast Last Recorded Vitals Blood pressure 151/86, pulse 72, temperature 36 C (96.8 F), temperature source Skin, resp. rate 18,height 1.753 m (5' 9), weight 77.1 kg (169 lb 15.6 oz), SpO2 94%. Relevant Results Scheduled medications acetaminophen, 650 mg, oral, q6h aspirin, 81 mg, oral, Daily ceFAZolin, 2 g, intravenous, q8h lidocaine, 1 patch, transdermal, q24h oxygen, , inhalation, Continuous - Inhalation [START ON 08/11/2024] pantoprazole, 40 mg, oral, Daily before breakfast Or [START ON 08/11/2024] pantoprazole, 40 mg, intravenous, Daily before breakfast polyethylene glycol, 17 g, oral, Daily sennosides-docusate sodium, 2 tablet, oral, BID Continuous medications EPINEPHrine, 0-2 mcg/kg/min lactated Ringer's, 20 mL/hr lactated Ringer's, 5 mL/hr norepinephrine, 0-0.5 mcg/kg/min propofol, 5-50 mcg/kg/min PRN medications PRN medications: alteplase, HYDROmorphone, magnesium sulfate, magnesium sulfate, naloxone, ondansetron ODT OR ondansetron, oxyCODONE, oxyCODONE, oxygen, potassium chloride CR OR potassium chloride, potassium chloride CR OR potassium chloride, potassium chloride, potassium chloride LABS: CMP: No lab exists for component: CA CBC: Results from last 7 days Lab Units 08/10/24 1200 WBC AUTO x10*3/uL 18.3* HEMOGLOBIN g/dL 9.8* HEMATOCRIT % 29.8* PLATELETS AUTO x10*3/uL 229 MCV fL 93 COAG: Results from last 7 days Lab Units 08/10/24 1200 INR 1.7* HEME/ENDO: CARDIAC: Anesthesia Intraoperative Transesophageal Echocardiogram Final Result XR chest 1 view (Results Pending) XR chest 1 view (Results Pending) Assessment/Plan Assessment & Plan Aneurysm of ascending aorta without rupture ([facility]) Karla Cai is a 73 y.o. female presenting for elective outpatient Asc Ao replacement, LAAC,PPW. PMHx ascending aortic aneurysm, HTN, HLD, CKD, breast cancer s/p lumpectomy with XRT, diverticulitis (no flare ups since 2019). [facility] s/p Asc Ao replacement (30mm Gelweave), LAAC (45mm Atriclip), PPW with Dr. Galloway on 08/10/24. Neuro: # Sedated # Expected acute postop pain - Serial neuro and pain assessments - Sedation: propofol - Analgesia: scheduled Tylenol, PRN Oxy, PRN Dilaudid while CTs are in, Lidoderm patches - PT/OT/MITT - Ok for home eye drops tomorrow CV: # Asc Ao aneurysm s/p Asc Ao replacement, LAAC, PPW # HTN, HLD On prop, epi, levo on arrival to ICU LVEF normal, mild AI pre none post, mildly diminished RV fx V wires backup VVI 50, intrinsic NSR with new LBBB - Cont EKG, ABP - Maintain MAP 65-90 - Maintain and monitor CTs for quantity, quality of drainage - Volume resuscitate as needed - ASA - Hold BB until HDs permit - Hold home irbesartan, spironolactone for now Pulm: # Intubated - Wean FiO2 to SpO2 > 92% - ABGs prn - BPH GI: # Diverticulitis - NPO until extubated and BSE - Bowel regimen - GI ppx: PPI - Zofran PRN /Renal: # CKD (baseline Cr 0.9) - RFP daily, replete lytes per protocol - Carlson - Strict I&Os Heme/Onc: # Acute blood loss anemia 2/2 CBP # Hx breast CA s/p lumpectomy and XRT - CBC daily - DVTppx: SCDs, Lovenox POD1 if appropriate - Monitor coags that OR team sent perioperatively. Will send repeats if needed Endo: No hx endocrinopathies - POCT BG, ISS q4 - Maintain BG < 180. Hypoglycemia protocol ID: Afebrile, no s/s infection - Trend temp, WBCs - Periop abx Discussed with Dr. Galloway. Plan for observation with interval EKG for new LBBB. Dispo: admit to CTICU This critically ill patient continues to be at-risk for clinically significant deterioration / failure due to the above mentioned dysfunctional, unstable organ systems. I have personally identified and managed all complex critical care issues in an effort to prevent aforementioned clinical deterioration. Critical care time is spent at bedside and/or the immediate area and has included, but is notlimited to, the review of diagnostic tests, labs, radiographs, serial assessments of hemodynamics, respiratory status, ventilatory management, and family updates. Time spent in procedures and teaching are reported separately. CRITICAL CARE TIME: 120 minutes Adriana Garnica PA-C * Joaquim Galloway MD - 08/10/2024 7:04 AM EST H&P reviewed. The patient was examined and there are no changes to the H&P. Plan for ascending aortic replacement and left atrial appendage clip. Informed consent obtained. Joaquim Galloway MD Cardiac Surgeon Source Note - Sally Hannah PA-C - 07/29/2024 9:30 AM EST [facility] Evaluation Name: Karla Cai (Karla Cai) /Age: 312/07/1950/73 y.o. In-Person Chief Complaint: Aneurysm of ascending aorta without rupture HPI Date of Consult: 07/29/24 Referring Provider: Dr. Galloway Surgery, Date, and Length: Ascending Aorta Replacement; Left Atrial Appendage Closure; 08/10/24; 330minutes Karla Cai is a 73 year-old female who presents to the [facility] for perioperative risk assessment prior to surgery. She reports that she has known about her aneurysm since 2019. She is asymptomatic and has been followed with serial imaging. She denies chest pain and back pain. CT in emonstrated stability of her ascending aortic aneurysm, which again measured 4.8cm. This note was created in part upon personal review of patient's medical records. Patient is scheduled to have Ascending Aorta Replacement; Left Atrial Appendage Closure Medical History Past Medical History: Diagnosis Date Allergic rhinitis Aortic regurgitation Arthritis bilateral feet Ascending aortic aneurysm (CMS-HCC) Breast cancer (Multi) 2010 s/p lumpectomy,radiation and tamoxifen CKD (chronic kidney disease) stage 2 Diverticulitis no issues since 2018 DM (diabetes mellitus) (Multi) diet controlled GERD (gastroesophageal reflux disease) occasional symptoms HLD (hyperlipidemia) Hypertension Hypokalemia Kidney cyst, acquired Mitral regurgitation Osteopenia Tricuspid regurgitation STOP BANG = 2 (>50yo, htn) Caprini = 5 (age,surgery,BMI>25) Surgical History Past Surgical History: Procedure Laterality Date BREAST LUMPECTOMY Right 2011 BREAST RECONSTRUCTION Right BREAST SURGERY Left reduction CARDIAC CATHETERIZATION N/A 06/09/2024 Procedure: Left Heart Cath with Coronary Angiography and LV; Surgeon: Flaquita Hendrix MD; Location: [facility] Cardiac Family Court Counsellor; Service: Cardiovascular; Laterality: N/A; preop asc aorta replacement. [facility] Jun AT 11:00 AM PT WILL ARRIVE AT 9:30 AM - DR. HENDRIX CATARACT EXTRACTION Bilateral COLONOSCOPY 2019 HEMORRHOID SURGERY HYSTERECTOMY NEUROMA SURGERY Left 1998 acoustic neuroma TUBAL LIGATION Family history: Family History Problem Relation Name Age of Onset Hypertension Mother Colon cancer Mother Heart disease Father Prostate cancer Father Hypertension Father Ovarian cancer Sister Thyroid cancer Sister Diabetes Brother Hypertension Brother Social history: Social History Socioeconomic History Marital status: Spouse name: Not on file Number of children: Not on file Years of education: Not on file Highest education level: Not on file Occupational History Not on file Tobacco Use Smoking status: Never Smokeless tobacco: Never Vaping Use Vaping status: Never Used Substance and Sexual Activity Alcohol use: Yes Comment: drinks wine a few times a month Drug use: Never Sexual activity: Defer Other Topics Concern Not on file Social History Narrative Not on file Social Drivers of Health Financial Resource Strain: Low Risk (02/18/2024) Received from [facility] Overall Financial Resource Strain (CARDIA) Difficulty of Paying Living Expenses: Not hard at all Food Insecurity: No Food Insecurity (02/18/2024) Received from [facility] Hunger Vital Sign Worried About Running Out of Food in the Last Year: Never true Ran Out of Food in the Last Year: Never true Transportation Needs: No Transportation Needs (02/18/2024) Received from [facility] PRAPARE - Transportation Lack of Transportation (Medical): No Lack of Transportation (Non-Medical): No Physical Activity: Sufficiently Active (02/18/2024) Received from [facility] Exercise Vital Sign Days of Exercise per Week: 4 days Minutes of Exercise per Session: 60 min Stress: No Stress Concern Present (02/18/2024) Received from [facility] [employer] [place] [employer] - Occupational Stress Questionnaire Feeling of Stress : Only a little Social Connections: Socially Integrated (02/18/2024) Received from [facility] Social Connection and Isolation Panel [NHANES] Frequency of Communication with Friends and Family: More than three times a week Frequency of Social Gatherings with Friends and Family: More than three times a week Attends Tenriism Services: More than 4 times per year Active Member of Clubs or Organizations: Yes Attends Club or Organization Meetings: More than 4 times per year Marital Status: Intimate Partner Violence: Not on file Housing Stability: Not on file Current Outpatient Medications: acetaminophen (Tylenol) 500 mg tablet, Take 1 tablet (500 mg) by mouth once daily., Disp: , Rfl: B complex-vitamin C-folic acid (Nephro-Bull Rx) 1-60-300 mg-mg-mcg tablet, Take 1 tablet by mouth once daily with breakfast., Disp: , Rfl: beta carotene (vitamin A) 3,000 mcg (10,000 unit) capsule, Take 1 capsule (10,000 Units) by mouth once daily., Disp: , Rfl: irbesartan (Avapro) 300 mg tablet, Take 1 tablet (300 mg) by mouth early in the morning.., Disp: , Rfl: metoprolol succinate XL (Toprol-XL) 100 mg 24 hr tablet, Take 1 tablet (100 mg) by mouth early in the morning.., Disp: , Rfl: multivitamin tablet, Take 1 tablet by mouth once daily., Disp: , Rfl: mv-min/FA/vit K/lutein/zeaxant (PRESERVISION AREDS 2 PLUS MV ORAL), Take 1 tablet by mouth once daily., Disp: , Rfl: olopatadine (Patanol) 0.1 % ophthalmic solution, Administer 1 drop into both eyes if needed., Disp:, Rfl: pravastatin (Pravachol) 20 mg tablet, Take 1 tablet (20 mg) by mouth early in the morning.., Disp: , Rfl: spironolactone (Aldactone) 50 mg tablet, Take 1 tablet (50 mg) by mouth early in the morning.., Disp: , Rfl: chlorhexidine (Peridex) 0.12 % solution, 15 ml swish and spit for 30 seconds night prior to surgeryand morning of surgery, Disp: 473 mL, Rfl: 0 fluticasone (Flonase) 50 mcg/actuation nasal spray, Administer 1 spray into each nostril if needed for rhinitis. Shake gently. Before first use, prime pump. After use, clean tip and replace cap. (Patient not taking: Reported on 07/29/2024), Disp: , Rfl: loratadine (Claritin Reditabs) 10 mg disintegrating tablet, Take 1 tablet (10 mg) by mouth if needed for allergies. (Patient not taking: Reported on 07/29/2024), Disp: , Rfl: Visit Vitals BP 144/70 Pulse 61 Temp 36.6 C (97.9 F) Resp 18 Ht 1.72 m (5' 7.72) Wt 77 kg (169 lb 12.1 oz) SpO2 94% BMI 26.03 kg/m OB Status Hysterectomy Smoking Status Never BSA 1.92 m Review of Systems Constitutional: Negative. HENT: Negative. Eyes: Negative. Glasses Respiratory: Negative. Cardiovascular: Negative. METS 4 walk daily / walk in from lot Without chest pain / SOB Gastrointestinal: Negative. Endocrine: Negative. Genitourinary: Negative. Musculoskeletal: Positive for arthralgias (feet pain). Skin: Negative. Allergic/Immunologic: Negative. Neurological: Negative. Hematological: Negative. Psychiatric/Behavioral: Negative. Physical Exam Vitals reviewed. Constitutional: Appearance: Normal appearance. HENT: Head: Normocephalic and atraumatic. Right Ear: External ear normal. Left Ear: External ear normal. Nose: Nose normal. Mouth/Throat: Pharynx: Oropharynx is clear. Eyes: Extraocular Movements: Extraocular movements intact. Conjunctiva/sclera: Conjunctivae normal. Pupils: Pupils are equal, round, and reactive to light. Cardiovascular: Rate and Rhythm: Normal rate and regular rhythm. Heart sounds: Normal heart sounds. Pulmonary: Effort: Pulmonary effort is normal. Breath sounds: Normal breath sounds. Abdominal: Palpations: Abdomen is soft. Musculoskeletal: General: Normal range of motion. Cervical back: Normal range of motion and neck supple. Skin: General: Skin is warm and dry. Neurological: General: No focal deficit present. Mental Status: She is alert and oriented to person, place, and time. Psychiatric: Mood and Affect: Mood normal. Behavior: Behavior normal. PAT AIRWAY: Airway: Mallampati:: II Neck ROM:: Full Lab Results Component Value Date WBC 5.5 07/29/2024 HGB 12.9 07/29/2024 HCT 41.4 07/29/2024 MCV 94 07/29/2024 PLT 317 07/29/2024 Lab Results Component Value Date GLUCOSE 105 (H) 07/29/2024 CALCIUM 9.6 07/29/2024 NA 137 07/29/2024 K 4.5 07/29/2024 CO2 28 07/29/2024 CL 104 07/29/2024 BUN 29 (H) 07/29/2024 CREATININE 0.89 07/29/2024 Lab Results Component Value Date ALT 17 07/29/2024 AST 18 07/29/2024 ALKPHOS 85 07/29/2024 BILITOT 0.7 07/29/2024 Lab Results Component Value Date CRP <0.10 07/29/2024 Component Ref Range & Units 10:16 1 mo ago Protime 9.8 - 12.8 seconds 11.2 11.8 INR 0.9 - 1.1 1.0 1.0 aPTT 27 - 38 seconds 34 36 HgbA1c 05/29/24 5.9% === 07/29/24 === XR CHEST 2 VIEWS - Impression - 1. No acute cardiopulmonary process. MACRO: None. Signed by: Key Ram 07/30/2024 6:59 PM Dictation workstation: [id number] EKG 07/29/24 Sinus bradycardia at [address] and T wave abnormality TTE 06/03/24 CONCLUSIONS: 1. The left ventricular systolic function is normal, with a visually estimated ejection fraction of60-65%. 2. Spectral Doppler shows an impaired relaxation pattern of left ventricular diastolic filling. 3. There is low normal right ventricular systolic function. 4. Mild to moderate mitral valve regurgitation. 5. Mild to moderate tricuspid regurgitation visualized. 6. Right ventricular systolic pressure is within normal limits. 7. The ascending thoracic aorta is aneurysmal measuring 5 cm in diameter. Cardiac cath 06/09/24 CONCLUSIONS: 1. Left dominant coronary circulation with trivial diffuse non-obstructive CAD, as described above. 2. LVEDP 17 mm Hg. RCRI 1 , 6 % Risk of MACE Cardiac HTN- irbesartan HOLD 24 hours prior to surgery Metoprolol and spironolactone Continue DOS HLD- pravastatin Continue DOS Renal CKI - Recommendations to avoid nephrotoxic drugs and carefully monitor fluid status to maintain euvolemia. Use dose adjusted medications as needed for the underlying level of renal function. Hematology Patient instructed to ambulate as soon as possible postoperatively to decrease thromboembolic risk. Initiate mechanical DVT prophylaxis as soon as possible and initiate chemical prophylaxis when deemed safe from a bleeding standpoint post surgery. VTE prophylaxis per surgical team Tests ordered in PAT: cbc,coag,crp,cmp,t&s/t&x, ua,mrsa,EKG,cxr LABS REVIEWED: unremarkable Risk assessment complete. Patient is scheduled for a high surgical risk procedure. Preoperative medication instructions were provided and reviewed with the patient. Any additional testing or evaluation was explained to the patient. Nothing by mouth instructions were discussed and patient's questions were answered prior to conclusion to this encounter. Patient verbalized understanding of preoperative instructions given in preadmission testing; discharge instructions available inE. This note was dictated by a speech recognition. Minor errors may have been detected in a speech recognition. documented in this [facility] Work Phone: 1(396) 762-770212-08-2024 Hospital Discharge instructions* Discharge Instructions* Eh Mckeon, MANAGER HOSPICE-SURGICAL ONCOLOGIST - 08/16/2024 1:36 PM EST Images from the original note were not included. Do not lift/push/pull more than 10lbs for 3 months (sternal precautions). You may shower. Recommend using shower chair and showering with lukewarm water at first. Do not scrub incision; let soapy water run down. Pat to dry. Use fragrance-free soaps, detergents, etc. Do notapply scented oils, cologne, perfumes, detergents, soaps, etc to incision sites. Do not drive in the front seat (Mail Handler Assistant or Passenger side) until you are cleared by your surgeon in 4-6 weeks or while taking opioids. Please call 911 or go to the Emergency Department if you experience any of the following: extreme shortness of breath, severe or crushing chest pain, coughing up bloody or frothy sputum, or any otherconcerning symptoms. PLEASE TAKE ONLY MEDICINES THAT ARE LISTED ON YOUR DISCHARGE PAPERWORK. Do not restart any other medicines that are not listed. If you have any questions or concerns please call the ICU ([phone]) to speak with the Nurse Practitioner or Physician Molding Technician. Keep Your Move in the Tube!! and think of a John Champagne dinosaur! Please refer to the Move in the Tube handout. Load bearing activities can be completed if you are staying in the tube. If you are attempting loadbearing activities, let pain be your guide with when trying an activity out of the tube . If an activity hurts or is uncomfortable go back to doing it while you stay in the tube . There is no time limit to stay in the tube . Non-load bearing activities which are your activities of daily living can be completed with your arms out of the tube as long as you remain pain free. Some activities of daily living examples are dressing, personal care, showering, washing hair, and toilet hygiene. We are unable to provide any refills for narcotic pain medicine once you are discharged. We recommend you use acetaminophen as directed once you have finished your narcotic pain medicine. Continue 15-20 minute walks 5 times a day, you have no limitations on stairs. Please keep a log of your temperature, blood pressure, and weights. If you have diabetes please keep a log of your blood glucoses also. Please bring your log to your follow up appointments. Call the Cardiac Surgery Nurse Practitioner/ Physician Molding Technician ([phone]) if you gain 3 or more pounds in 1 day or 5 or more pounds in 1 week; shortness of breath not related to exercise, whilelying flat, or that wakes you up from sleep; increase in swelling feet, ankles or abdomen. If you begin to notice an increase your mouth feeling dry or dizziness when changing your position please call to speak with the nurse practitioner, you may need your furosemide (Lasix) adjusted. Your temporary pacing wires were cut. It is safe to have a MRI if ever needed. Please call and schedule an appointment with your cardiac surgeon if you notice the wires poking through your skin or any drainage from the site where pacing wires were located. Please continue to wear surgical bra, you may remove it to shower. Your sternum (breast bone) was closed with a sternal locking system. The system is a combination ofscrews & plates that will stay in permanently except if your surgeon feels there would be a need to remove them. This system helps improve the sternum healing, keeps the sternum together, decreases problems with your sternum healing and has been shown to improve the recovery period. * Appointments* Vaishali Oseguera RN - 08/22/2024 9:59 AM EST [facility] will follow You at home. They have 1-3 days to call You to schedule a visit. [facility] Phone: 1(816) 547-711812-06-2024 Consult note* Barry Orr RN - 08/14/2024 1:01 PM ESTAssociated Order(s): IP CONSULT TO [facility]OT[facility] BREEDER Karla Cai is a 73 y.o. female on day 3 of admission presenting with Aneurysm of ascending aorta without rupture ([facility]). No PMH of DM, A1C is 6.1%, BS well controlled. Pt not in need of DMeducation. Will sign off. Barry Orr RN documented [facility] Work Phone: 1(891) 335-279212-06-2024 Nurse Note* Rob Masterson RN - 08/14/2024 10:45 AM EST Carlson catheter removed per order. Pt tolerated well. 400 ml of tory urine drained from bag. Pt assisted onto BSC and had loose bowel movement. Pt denies any needs or pain at this time. Up to the chair resting comfortably. Call light in reach. Pt's at bedside, updated on plan of care. Will continue to monitor pt further. * Nettie Dillard RN - 08/13/2024 10:16 AM EST A Flosonics Device was used to determine this patient's fluid responsiveness. A value of +7 ms indicates a patient is fluid responsive, whereas any reading less than +7 ms indicates fluid to not be an effective intervention. BP 101/61 Pulse 109 Temp 36.6 C (97.9 F) Resp 15 Ht 1.753 m (5' 9) Wt 84.6 kg (186 lb 8.2 oz) SpO2 95% BMI 27.54 kg/m The device reading of +13 indicates this patient is fluid responsive. Results given to BRODIE * Rob Masterson RN - 08/10/2024 6:41 PM EST Pt extubated at this time. Pt tolerated well. Oral/mouth care performed. Swallow screen to be done 3-4 hrs pos extubation. Will let oncoming nurse know time documented in this [facility] Work Phone: 1(353) 642-917911-14-2024 History of Present illness Narrative* Cora Nielsen Mammo Tech - 07/23/2024 9:10 AM EST Radiology Service Progress Note PATIENT NAME: Karla Cai DATE OF SERVICE: July 23, 2024 TIME: 9:04 AM PATIENT IDENTITY VERIFICATION COMPLETED USING TWO (2) IDENTIFIERS: Name and Date of confirmedby patient verbally. FALL SCREENING: Has the patient had 2 falls in the last year or 1 fall with injury or currently using an Ambulatory Assistive Device (Walker, Cane, Wheelchair, Crutches, etc.)? No PATIENT GENDER DATA: Female. status: : No status: NO. PATIENT RELEVANT IMPLANT DATA REVIEWED: Not Applicable PATIENT PRESENTS WITH AN IMPLANTABLE OR ATTACHED MANUFACTURING LAB TECHNICIAN: No RADIOLOGY DEPARTMENT: Mammography PERIPHERAL IV DATA: Not applicable SIGNED BY: Mary Hunt July 23, 2024 9:04 AM documented in this encounterProm[facility]24 NoteHNO ID: [id number] Author: CORA NIELSEN Mammo Tech Service: ? Author Type: Forgeman Helper Type: Progress Notes Filed: 07/23/2024 09:04 Note Text: Radiology Service Progress Note PATIENT NAME: Karla Cai DATE OF SERVICE: July 23, 2024 TIME: [...] PATIENT PRESENTS WITH AN IMPLANTABLE OR ATTACHED MANUFACTURING LAB TECHNICIAN: No RADIOLOGY DEPARTMENT: Mammography PERIPHERAL IV DATA: Not applicable SIGNED BY: Mary Hunt July 23, 2024 9:04 [facility]10-16-2024 History of Present illness Narrative* Joaquim Galloway MD - 06/24/2024 2:15 PM EDT Chief Complaint Ascending aortic aneurysm HPI: Mrs. Karla Cai is a 73-year-old female who presents for surgical evaluation of her ascending aortic aneurysm. Since her last office visit on 05/27/24, she underwent cardiac cath and repeat TTE forsurgical planning. Cardiac cath demonstrated no significant coronary artery disease. TTE found normal LV function with EF 60-65%, low normal RV function, mild to moderate mitral regurgitation, mild to moderate tricuspid regurgitation, trace aortic regurgitation, and a 5cm ascending aortic aneurysm.Following discussion of these findings with her and her , she now agrees to proceed with ascending aortic replacement and left atrial appendage clip following Thanksgiving on 08/10/24. Past Medical History: Diagnosis Date Aortic regurgitation Ascending aortic aneurysm (CMS-HCC) Diverticulitis Hypertension Hypokalemia Mitral regurgitation Tricuspid regurgitation Past Surgical History: Procedure Laterality Date BREAST LUMPECTOMY Right BREAST RECONSTRUCTION Right CARDIAC CATHETERIZATION N/A 06/09/2024 Procedure: Left Heart Cath with Coronary Angiography and LV; Surgeon: Flaquita Hendrix MD; Location: [facility] Cardiac Family Court Counsellor; Service: Cardiovascular; Laterality: N/A; preop asc aorta replacement. [facility] Jun AT 11:00 AM PT WILL ARRIVE AT 9:30 AM - DR. HENDRIX HYSTERECTOMY Family History Problem Relation Name Age of Onset Hypertension Mother Colon cancer Mother Heart disease Father Prostate cancer Father Hypertension Father Ovarian cancer Sister Thyroid cancer Sister Diabetes Brother Hypertension Brother Social History Socioeconomic History Marital status: Spouse name: Not on file Number of children: Not on file Years of education: Not on file Highest education level: Not on file Occupational History Not on file Tobacco Use Smoking status: Never Smokeless tobacco: Never Substance and Sexual Activity Alcohol use: Not on file Drug use: Not on file Sexual activity: Not on file Other Topics Concern Not on file Social History Narrative Not on file Social Drivers of Health Financial Resource Strain: Low Risk (02/18/2024) [facility] Overall Financial Resource Strain (CARDIA) Difficulty of Paying Living Expenses: Not hard at all Food Insecurity: No Food Insecurity (02/18/2024) Re[facility] from [facility] Hunger Vital Sign Worried About Running Out of Food in the Last Year: Never true Ran Out of Food in the Last Year: Never true Transportation Needs: No Transportation Needs (02/18/2024) Re[facility] from [facility] PRAPARE - Transportation Lack of Transportation (Medical): No Lack of Transportation (Non-Medical): No Physical Activity: Sufficiently Active (02/18/2024) Received from [facility] Exercise Vital Sign Days of Exercise per Week: 4 days Minutes of Exercise per Session: 60 min Stress: No Stress Concern Present (02/18/2024) Re[facility] from [facility] [place] of Occupational Health - Occupational Stress Questionnaire Feeling of Stress : Only a little Social Connections: Socially Integrated (02/18/2024) Received from [facility] Social Connection and Isolation Panel [NHANES] Frequency of Communication with Friends and Family: More than three times a week Frequency of Social Gatherings with Friends and Family: More than three times a week Attends Tenriism Services: More than 4 times per year Active Member of Clubs or Organizations: Yes Attends Club or Organization Meetings: More than 4 times per year Marital Status: Intimate Partner Violence: Not on file Housing Stability: Not on file Allergies Allergen Reactions Adhesive Tape-Silicones Itching Amlodipine Swelling Doxazosin Dizziness Lisinopril Cough Meloxicam Other renal Outpatient Encounter Medications as of 06/24/2024 Medication Sig Dispense Refill B complex-vitamin C-folic acid (Nephro-Bull Rx) 1-60-300 mg-mg-mcg tablet Take 1 tablet by mouth once daily with breakfast. beta carotene (vitamin A) 3,000 mcg (10,000 unit) capsule Take 1 capsule (10,000 Units) by mouth once daily. irbesartan (Avapro) 300 mg tablet Take 1 tablet (300 mg) by mouth early in the morning.. metoprolol succinate XL (Toprol-XL) 100 mg 24 hr tablet Take 1 tablet (100 mg) by mouth early in the morning.. multivitamin tablet Take 1 tablet by mouth once daily. mv-min/FA/vit K/lutein/zeaxant (PRESERVISION AREDS 2 PLUS MV ORAL) Take 1 tablet by mouth once daily. olopatadine (Patanol) 0.1 % ophthalmic solution Administer 1 drop into both eyes 2 times a day. pravastatin (Pravachol) 20 mg tablet Take 1 tablet (20 mg) by mouth early in the morning.. spironolactone (Aldactone) 50 mg tablet Take 1 tablet (50 mg) by mouth early in the morning.. No facility-administered encounter medications on file as of 06/24/2024. Physical Exam Constitutional: General: She is not in acute distress. Appearance: Normal appearance. Cardiovascular: Rate and Rhythm: Normal rate and regular rhythm. Pulmonary: Effort: No respiratory distress. Breath sounds: No wheezing. Abdominal: Palpations: Abdomen is soft. Tenderness: There is no abdominal tenderness. Musculoskeletal: General: No swelling or tenderness. Skin: General: Skin is warm and dry. Neurological: General: No focal deficit present. Mental Status: She is alert and oriented to person, place, and time. Psychiatric: Mood and Affect: Mood normal. Behavior: Behavior normal. No results found for this or any previous visit (from the past 4464 hours). Lab Results Component Value Date WBC 6.3 06/03/2024 HGB 13.5 06/03/2024 HCT 41.8 06/03/2024 MCV 93 06/03/2024 PLT 364 06/03/2024 Lab Results Component Value Date GLUCOSE 103 (H) 06/03/2024 CALCIUM 9.9 06/03/2024 NA 139 06/03/2024 K 4.2 06/03/2024 CO2 26 06/03/2024 CL 103 06/03/2024 BUN 32 (H) 06/03/2024 CREATININE 1.09 (H) 06/03/2024 Transthoracic Echo (TTE) Complete Result Date: 06/05/2024 [facility], [address] [place] [address], [address] [address] and TRANSTHORACIC ECHOCARDIOGRAM REPORT Patient Name: KARLA Hancock Physician: [id number] Rob Jones MD Study Date: 06/03/2024 Ordering Provider: [id number] JOAQUIM GALLOWAY MRN/PID: [id number] Fellow: Nurse: Date of /Age: 3 1950 / 73 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: Joycelyn JIMENEZ Gender: F Additional Staff: Height: 175.26 cm Admit Date: Weight: 78.02 kg Admission Status: Outpatient BSA / BMI: 1.94 m2 / 25.40 kg/m2 Blood Pressure: 120/63 mmHgDepartment Location: [facility] Study Type: TRANSTHORACIC ECHO (TTE) COMPLETE Diagnosis/ICD: 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; Nonrheumatic aortic (valve) insufficiency- I35.1; Nonrheumatic mitral (valve) insufficiency-I34.0 Indication: Asc AO Dilatation CPT Code: Echo Complete w Full Doppler-15598 Patient History: Pertinent History: HTN, ASC AO DILATATION. Study Detail: The following Echo s tudies were performed: 2D, M-Mode, Doppler and color flow. A bubble study was not performed. PHYSICIAN INTERPRETATION: Left Ventricle: The left ventricular systolic function is normal, with a visually estimated ejection fraction of 60- 65%. There are no regional left ventricular wall motion abnormalities. The left ventricular cavity size is normal. Spectral Doppler shows an impaired relaxation pattern of left ventricular diastolic filling. Left Atrium: The left atrium is normal in size. A bubblestudy using agitated saline was not performed. Right Ventricle: The right ventricle is normal in size. There is low normal right ventricular systolic function. Right Atrium: The right atrium is normal in size. Aortic Valve: The aortic valve is trileaflet. The aortic valve dimensionless index is 0.72. There is trace aortic valve regurgitation. The peak instantaneous gradient of the aortic valve is5.0 mmHg. The mean gradient of the aortic valve is 2.8 mmHg. Mitral Valve: The mitral valve is normal in structure. There is mild to moderate mitral valve regurgitation. Tricuspid Valve: The tricuspid valve is structurally normal. There is mild to moderate tricuspid regurgitation. The Doppler estimated RVSP is within normal limits at 29.0 mmHg. Pulmonic Valve: The pulmonic valve is structurally normal. There is physiologic pulmonic valve regurgitation. Pericardium: Trivial pericardial effusion.There is a pericardial fat pad present. Aorta: The aortic root is normal. The ascending thoracic aorta is aneurysmal measuring 5 cm in diameter. Recommend chest cta and/or mra of the chest for confirmation. In comparison to the previous echocardiogram(s): There are no prior studies on this patient for comparison purposes. CONCLUSIONS: 1. The left ventricular systolic function is normal, with a visually estimated ejection fraction of 60-65%. 2. Spectral Doppler shows an impaired relaxation pattern of left ventricular diastolic filling. 3. There is low normal right ventricular systolic function. 4. Mild to moderate mitral valve regurgitation. 5. Mild to moderate tricuspid regurgitation visualized. 6. Right ventricular systolic pressure is within normal limits. 7. The ascending thoracic aorta is aneurysmal measuring 5 cm in diameter. Recommend chest cta and/or mra of the chest for confirmation. QUANTITATIVE DATA SUMMARY: 2D MEASUREMENTS: Normal Ranges: LAs: 4.06 cm (2.7-4.0cm) IVSd: 0.86cm (0.6-1.1cm) LVPWd: 0.88 cm (0.6-1.1cm) LVIDd: 4.83 cm (3.9-5.9cm) LVIDs: 3.43 cm LV Mass Index: 74 g/m2 LVEDV Index: 39 ml/m2 LV % FS 29.1 % LA VOLUME: Normal Ranges: LA Vol A4C: 40.3 ml (22+/-6mL/m2) LA Vol A2C: 32.7 ml LA Vol BP: 37.3 ml LA Vol Index A4C: 20.8ml/m2 LA Vol Index A2C: 16.9 ml/m2LA Vol Index BP: 19.3 ml/m2 LA Area A4C: 16.0 cm2 LA Area A2C: 14.0 cm2 LA [place] A4C: 5.4 cm LA [place] A2C: 5.1 cm LA Volume Index: 19.3 ml/m2 LA Vol A4C: 36.9 ml LA Vol A2C: 31.0 ml LA Vol Index BSA: 17.5 ml/m2 RA VOLUME BY A/L METHOD: Normal Ranges: RA Area A4C: 15.4 cm2 AORTA MEASUREMENTS: Normal Ranges: Ao Sinus, d: 3.70 cm (2.1- 3.5cm) Ao STJ, d: 3.20 cm (1.7-3.4cm) Asc Ao, d: 5.00 cm (2.1-3.4cm) LV SYSTOLIC FUNCTION BY 2D PLANIMETRY (MOD): Normal Ranges: EF-A4C View: 67 % (>=55%) EF- A2C View: 71 % EF-Biplane: 69 % EF-Visual: 63 % LV EF Reported: 63 % LV DIASTOLIC FUNCTION: Normal Ranges: MV Peak E: 0.49 m/s (0.7-1.2 m/s) MV Peak A: 0.74 m/s (0.42-0.7 m/s) E/A Ratio: 0.67 (1.0-2.2) MV e' 0.070 m/s (>8.0) MV lateral e' 0.09 m/s MV medial e' 0.05 m/s E/e' Ratio: 7.06 (<8.0) MITRAL VALVE: Normal Ranges: MV DT: 352 msec (150-240msec) MITRAL INSUFFICIENCY: Normal Ranges: MR VTI: 158.58 cm MR Vmax: 483.44 cm/s AORTIC VALVE: Normal Ranges: AoV Vmax: 1.11 m/s (<=1.7m/s) AoV Peak P.0 mmHg (<20mmHg) AoV Mean P.8 mmHg (1.7-11.5mmHg) LVOT Max Last: 0.79 m/s (<=1.1m/s) AoV VTI: 28.24 cm (18-25cm) LVOT VTI: 20.42 cm LVOT Diameter: 2.06 cm (1.8-2.4cm) AoV Area, VTI: 2.41 cm2 (2.5-5.5cm2) AoV Area,Vmax: 2.37 cm2 (2.5-4.5cm2) AoV Dimensionless Index: 0.72 RIGHT VENTRICLE: RV Basal 3.50 cm TAPSE: 20.4 mm RV s' 0.09 m/s TRICUSPID VALVE/RVSP: Normal Ranges: Peak TR Velocity: 2.55 m/s RV Syst Pressure: 29 mmHg (< 30mmHg) IVC Diam: 1.51 cm AORTA: Asc Ao Diam 4.49 cm [id number] Rob Jones MD Electronically signed on 06/05/2024 at 4:01:39 PM Final Assessment and Plan: Ms. Karla Cai is an 73 y.o. female who has been referred with an ascending aortic aneurysm. I had a chance to review all available, pertinent investigations. My interpretation of these studies is as follows: - 5cm ascending aortic aneurysm - Mild to moderate mitral regurgitation - Mild to moderate tricuspid regurgitation Based on a review of her symptoms and investigations, the options are - Continued observation of her ascending aortic aneurysm with serial CT imaging, understanding the increased risk of potentially fatal aortic dissection and rupture - Elective ascending aortic replacement - I would not recommend mitral or tricuspid valve repair in the setting of asymptomatic mild to moderate regurgitation We had a good discussion about these options, and feel that elective ascending aortic replacement would be a safer option for her than emergent operative intervention in the setting of aortic dissection or rupture. I would also plan to clip her left atrial appendage to reduce her risk of postoperative stroke in case of atrial fibrillation. Regarding surgery, the accepted indication is her 5cm ascending aortic aneurysm. Benefits of surgery are intended to be reduced risk of aortic dissection, rupture, and . We discussed specific risks inherent to the procedure, including bleeding requiring transfusion, infection, respiratory insufficiency, renal insufficiency, stroke, and . Based on the risks and benefits, I believe this patient would benefit from surgical intervention. She understands the risks and benefits of this procedure, and has asked that we proceed. The surgical strategy will be ascending aortic replacement and left atrial appendage clip. The surgery will be performed at [facility] based on the complexity of the procedure and patient'spreference. In preparation for surgery, she will require a PAT visit. I am hopeful surgery can be scheduled for08/10/24 as the patient has requested that we delay surgery until after Thanksgiving. Joaquim Galloway MD Cardiac Surgeon documented in this [facility] Work Phone: 1(201) 319-490910-01-2024 Nurse Note* Mariella Moy RN - 06/09/2024 5:02 PM EDT SURGICAL ONCOLOGIST here to assess and speak with patient. [facility]10-[facility] Nurse Note* Mariella Moy RN - 06/09/2024 5:02 PM EDT SURGICAL ONCOLOGIST here to assess and speak with patient. * Mariella Moy RN - 06/09/2024 4:40 PM EDT Meal ordered * Mariella Moy RN - 06/09/2024 4:22 PM EDT After patient had gone to the bathroom and was getting dressed to go home, the radial artery accesssite began to bleed profusely. Immediate pressure applied above the site and pressure band reapplied with 8cc of air. VS resumed. No complaints from the patient. Charge nurse and SURGICAL ONCOLOGIST updated. Physician is in procedure at this time. * Mariella Moy RN - 06/09/2024 4:09 PM EDT Patient ambulated with the bathroom with stand-by assistance. Voided. * Mariella Moy RN - 06/09/2024 4:08 PM EDT Home going instructions specific to procedure given. Easily arousable; responding appropriately. Vs+/- 20% of pre procedure status. Significant complications are absent. Ambulates without dizziness/age appropriate activity, pulse ox above or equal to 92% on room air/ordered oxygen treatment. Care Plan Complete. Discharge to home accompanied by (family). Discharged via wheelchair. * Mariella Moy RN - 06/09/2024 2:05 PM EDT SURGICAL ONCOLOGIST upated on BP with new order to bolus 500cc IVF. Same started. documented in this [facility]Un[facility] Work Phone: 1(477) 514-804910-01-2024 Nurse Note* Mariella Moy RN - 06/09/2024 4:40 PM EDT Meal ordered [facility] Work Phone: 1(428) 624-697010-01-2024 Nurse Note* Mariella Moy RN - 06/09/2024 4:22 PM EDT After patient had gone to the bathroom and was getting dressed to go home, the radial artery accesssite began to bleed profusely. Immediate pressure applied above the site and pressure band reapplied with 8cc of air. VS resumed. No complaints from the patient. Charge nurse and SURGICAL ONCOLOGIST updated. Physician is in procedure at this time. [facility] Work Phone: 1(948) 115-893410-01-2024 Nurse Note* Mariella Moy RN - 06/09/2024 4:09 PM EDT Patient ambulated with the bathroom with stand-by assistance. Voided. [facility] Work Phone: 1(381) 725-298010-01-2024 Nurse Note* Mariella Moy RN - 06/09/2024 4:08 PM EDT Home going instructions specific to procedure given. Easily arousable; responding appropriately. Vs+/- 20% of pre procedure status. Significant complications are absent. Ambulates without dizziness/age appropriate activity, pulse ox above or equal to 92% on room air/ordered oxygen treatment. Care Plan Complete. Discharge to home accompanied by (family). Discharged via wheelchair. [facility] Work Phone: 1(136) 198-230110-01-2024 Nurse Note* Mariella Moy RN - 06/09/2024 2:05 PM EDT SURGICAL ONCOLOGIST upated on BP with new order to bolus 500cc IVF. Same started. [facility] Work Phone: 1([phone]) 891-230010-01-2024 Hospital Discharge instructions* Discharge Instructions* Anita Lim APRN-TYRA - 06/09/2024 1:45 PM EDT Images from the original note were not included. CARDIAC CATHETERIZATION DISCHARGE INSTRUCTIONS Follow up with Dr. Galloway in the next month. Appointment requested. Please call the office if you donot hear anything in 3 business days FOR SUDDEN AND SEVERE CHEST PAIN, SHORTNESS OF BREATH, EXCESSIVE BLEEDING, SIGNS OF STROKE, OR CHANGES IN MENTAL STATUS YOU SHOULD CALL 911 IMMEDIATELY. If your provider has prescribed aspirin and/or clopidogrel (Plavix), or prasugrel (Effient), or ticagrelor (Brilinta), DO NOT STOP THESE MEDICATIONS for any reason without talking to your belt cleaner first. If any of these were prescribed, you must take them every day without missing a single dose. If you are getting low on these medications, contact your provider immediately for a refill. FOR NEXT 24 HOURS - Upon discharge, you should return home and rest for the remainder of the day and evening. You do not have to stay on bed rest but should not be very active. It is recommended a responsible adult bewith you for the first 24 hours after the procedure. - No driving for 24 hours after procedure. Please arrange for someone to drive you home from the hospital today. - Do not drive, operate machinery, or use power tools for 24 hours after your procedure. - Do not make any legal decisions for 24 hours after your procedure. - Do not drink alcoholic beverages for 24 hours after your procedure. WOUND CARE *FOR FEMORAL (LEG) ACCESS* Avoid heavy lifting (over 10 pounds) for 7 days, squatting or excessive bending for 2 days, and strenuous exercise for 7 days. No submerged bathing, swimming, or hot tubs for the next 7 days, or until fully healed. Avoid sexual activity for 3-4 days until any groin discomfort has ceased. *FOR RADIAL (WRIST) ACCESS* No lifting more than 5 pounds or excessive use of the wrist for 24 hours - for example, treat your wrist as if it is sprained. Do not engage in vigorous activities (tennis, golf, bowling, weights) for at least 48 hours after the procedure. Do not submerge the wrist for 7 days after the procedure. You should expect mild tingling in your hand and tenderness at the puncture site for up to 3 days. - The transparent dressing should be removed from the site 24 hours after the procedure. Wash the site gently with soap and water. Rinse well and pat dry. Keep the area clean and dry. You may apply aBand-Aid to the site. Avoid lotions, ointments, or powders until fully healed. - You may shower the day after your procedure. - It is normal to notice a small bruise around the puncture site and/or a small grape sized or smaller lump. Any large bruising or large lump warrants a call to the office. - If bleeding should occur, lay down and apply pressure to the affected area for 10 minutes. If thebleeding stops notify your physician. If there is a large amount of bleeding or spurting of blood CALL [address] yourself to the hospital. - You may experience some tenderness, bruising or minimal inflammation. If you have any concerns, you may contact the Family Court Counsellor or if any of these symptoms become excessive, contact your belt cleaner or go to the emergency room. OTHER INSTRUCTIONS - You may take acetaminophen (Tylenol) as directed for discomfort. If pain is not relieved with acetaminophen (Tylenol), contact your doctor. - If you notice or experience any of the following, you should notify your doctor or seek medical attention Chest pain or discomfort Change in mental status or weakness in extremities. Dizziness, light headedness, or feeling faint. Change in the site where the procedure was performed, such as bleeding or an increased area of bruising or swelling. Tingling, numbness, pain, or coolness in the leg/arm beyond the site where the procedure was performed. Signs of infection (i.e. shaking chills, temperature > 100 degrees Fahrenheit, warmth, redness) in the leg/arm area where the procedure was performed. Changes in urination Bloody or black stools Vomiting blood Severe nose bleeds Any excessive bleeding - If you DO NOT have an appointment with your belt cleaner within 2-4 weeks following your procedure, please contact their office. documented in this [facility] Work Phone: 1([phone]) 205-219910-01-2024 History and physical note* JESSE Callwaay - 06/09/2024 11:58 AM EDT History Of Present Illness Karla Cai is a 73 y.o. female presenting with ascending aortic aneuyrsm, here for [facility] as part of pre-op workup for aortic aneurysm surgery. PMHx significant for diverticulitis, HTN, mitral regurgitation, tricuspid regurgitation. Past Medical History: Past Medical History: Diagnosis Date Aortic regurgitation Ascending aortic aneurysm (CMS-HCC) Diverticulitis Hypertension Hypokalemia Mitral regurgitation Tricuspid regurgitation Past Surgical History: Past Surgical History: Procedure Laterality Date BREAST LUMPECTOMY Right BREAST RECONSTRUCTION Right HYSTERECTOMY Social History: reports that she has never smoked. She has never used smokeless tobacco. Family History: Family History Problem Relation Name Age of Onset Hypertension Mother Colon cancer Mother Heart disease Father Prostate cancer Father Hypertension Father Ovarian cancer Sister Thyroid cancer Sister Diabetes Brother Hypertension Brother Allergies: Allergies Allergen Reactions Adhesive Tape-Silicones Itching Amlodipine Swelling Doxazosin Dizziness Lisinopril Cough Meloxicam Other renal Home Medications: Current Outpatient Medications Medication Instructions B complex-vitamin C-folic acid (Nephro-Bull Rx) 1-60-300 mg-mg-mcg tablet 1 tablet, oral, Daily with breakfast beta carotene (VITAMIN A) 10,000 Units, oral, Daily irbesartan (Avapro) 300 mg tablet 1 tablet, oral, Daily (629) metoprolol succinate XL (Toprol-XL) 100 mg 24 hr tablet 1 tablet, oral, Daily (30) multivitamin tablet 1 tablet, oral, Daily mv-min/FA/vit K/lutein/zeaxant (PRESERVISION AREDS 2 PLUS MV ORAL) 1 tablet, oral, Daily olopatadine (Patanol) 0.1 % ophthalmic solution 1 drop, Both Eyes, 2 times daily pravastatin (Pravachol) 20 mg tablet 1 tablet, oral, Daily (30) spironolactone (Aldactone) 50 mg tablet 1 tablet, oral, Daily (629) Inpatient Medications: Scheduled medications Medication Dose Route Frequency PRN medications Medication Continuous Medications Medication Dose Last Rate sodium chloride 0.9% 100 mL/hr 100 mL/hr (06/09/24 1015) Review of Systems Constitutional: Negative. HENT: Negative. Eyes: Negative. Respiratory: Positive for shortness of breath (BLUE). Cardiovascular: Negative. Gastrointestinal: Negative. Endocrine: Negative. Genitourinary: Negative. Musculoskeletal: Negative. Skin: Negative. Allergic/Immunologic: Negative. Neurological: Positive for light-headedness. Hematological: Negative. Psychiatric/Behavioral: Negative. Physical Exam General: Patient is awake, alert, and oriented. Patient is in no acute distress. HEENT: Pupils equal and reactive. Normocephalic. Moist mucosa. Neck: No JVD. Cardiovascular: Regular rate and rhythm. Normal S1 and S2. +Murmur. Radial pulses 2+. Pulmonary: Clear to auscultation bilaterally. Abdomen: Soft. Non-tender. Non-distended. Positive bowel sounds. Lower Extremities: Pedal pulses 2+ No LE edema. Neurologic: Cranial nerves II-XII grossly intact. No focal deficit. Skin: Skin warm and dry, no lesions. Normal skin turgor. Psychiatric: Normal affect. Sedation Plan ASA 3 Mallampati class: II. Risks, benefits, and alternatives discussed with patient. NPO since 000 Last Recorded Vitals Blood pressure 158/72, pulse 55, temperature 36.4 C (97.5 F), temperature source Temporal, resp. rate 18, height 1.753 m (5' 9), weight 78 kg (171 lb 15.3 oz), SpO2 97%. Vitals from the Past 24 Hours Heart Rate: [55] Temp: [36.4 C (97.5 F)] Resp: [18] BP: (158)/(72) Height: [175.3 cm (5' 9)] Weight: [78 kg (171 lb 15.3 oz)] SpO2: [97 %] Relevant Results Labs CBC: Recent Labs 06/03/24 0930 WBC 6.3 HGB 13.5 HCT 41.8 PLT 364 MCV 93 BMP/CMP: Recent Labs 06/03/24 0930 NA 139 K 4.2 CL 103 BUN 32* CREATININE 1.09* CO2 26 CALCIUM 9.9 GLUCOSE 103* Lipid Panel: No results for input(s): CHOL, HDL, CHHDL, LDL, VLDL, TRIG, NHDL in the last 05389 hours. Cardiac No lab exists for component: CK, CKMBP Hemoglobin A1C: Recent Labs 05/29/24 1124 02/24/24 0722 08/29/23 0847 08/29/22 0737 08/25/21 0841 HGBA1C 5.9* 6.1* 6.0* 6.0* 6.1* TSH/ Free T4: No results for input(s): TSH, FREET4 in the last 22370 hours. Iron: No results for input(s): FERRITIN, TIBC, IRONSAT, BNP in the last 22584 hours. Coag: Results from last 7 days Lab Units 06/03/24 0930 INR 1.0 ABO: No results found for: ABO Past Cardiology Tests (Last 3 Years): EKG: No results for input(s): ATRRATE, VENTRATE, PRINT, QRSDUR, QTCFRED, QTCCALCB in the last 19168 hours.No results found for this or any previous visit (from the past 4464 hour(s)). Echo: Echocardiogram: Transthoracic Echo (TTE) Complete 06/03/2024 [facility], [address] [place] [address], [address] [address] and TRANSTHORACIC ECHOCARDIOGRAM REPORT Patient Name: KARLA BENITEZ Hancock Physician: [id number] Rob Jones MD Study Date: 06/03/2024 Ordering Provider: [id number] JOAQUIM GALLOWAY MRN/PID: [id number] Fellow: Nurse: Date of /Age: 3 1950 / 73 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: Yenny Vyas RDCS Gender: F Additional Staff: Height: 175.26 cm Admit Date: Weight: 78.02 kg Admission Status: Outpatient BSA / BMI: 1.94 m2 / 25.40 kg/m2 Blood Pressure: 120/63 mmHg Department Location: [facility] Study Type: TRANSTHORACIC ECHO (TTE) COMPLETE Diagnosis/ICD: Ascending aorta dilatation-I77.810; Nonrheumatic aortic (valve) insufficiency-I35.1; Nonrheumatic mitral (valve) insufficiency-I34.0 Indication: Asc AO Dilatation CPT Code: Echo Complete w Full Doppler-81032 Patient History: Pertinent History: HTN, ASC AO DILATATION. Study Detail: The following Echo studies were performed: 2D, M-Mode, Doppler and color flow. A bubble study was not performed. PHYSICIAN INTERPRETATION: Left Ventricle: The left ventricular systolic function is normal, with a visually estimated ejection fraction of 60-65%. There are no regional left ventricular wall motion abnormalities. The left ventricular cavity size is normal. Spectral Doppler shows an impaired relaxation pattern of left ventric ular diastolic filling. Left Atrium: The left atrium is normal in size. A bubble study using agitated saline was not performed. Right Ventricle: The right ventricle is normal in size. There is low normal right ventricular systolic function. Right Atrium: The right atrium is normal in size. Aortic Valve: The aortic valve is trileaflet. The aortic valve dimensionless index is 0.72. There is trace aortic valve regurgitation. The peak instantaneous gradient of the aortic valve is 5.0 mmHg.The mean gradient of the aortic valve is 2.8 mmHg. Mitral Valve: The mitral valve is normal in structure. There is mild to moderate mitral valve regurgitation. Tricuspid Valve: The tricuspid valve is structurally normal. There is mild to moderate tricuspid regurgitation. The Doppler estimated RVSP is within normal limits at 29.0 mmHg. Pulmonic Valve: The pulmonic valve is structurally normal. There is physiologic pulmonic valve regurgitation. Pericardium: Trivial pericardial effusion. There is a pericardial fat pad present. Aorta: The aortic root is normal. The ascending thoracic aorta is aneurysmal measuring 5 cm in diameter. Recommend chest cta and/or mra of the chest for confirmation. In comparison to the previous echocardiogram(s): There are no prior studies on this patient for comparison purposes. CONCLUSIONS: 1. The left ventricular systolic function is normal, with a visually estimated ejection fraction of60-65%. 2. Spectral Doppler shows an impaired relaxation pattern of left ventricular diastolic filling. 3. There is low normal right ventricular systolic function. 4. Mild to moderate mitral valve regurgitation. 5. Mild to moderate tricuspid regurgitation visualized. 6. Right ventricular systolic pressure is within normal limits. 7. The ascending thoracic aorta is aneurysmal measuring 5 cm in diameter. Recommend chest cta and/or mra of the chest for confirmation. QUANTITATIVE DATA SUMMARY: 2D MEASUREMENTS: Normal Ranges: LAs: 4.06 cm (2.7-4.0cm) IVSd: 0.86 cm (0.6-1.1cm) LVPWd: 0.88 cm (0.6-1.1cm) LVIDd: 4.83 cm (3.9-5.9cm) LVIDs: 3.43 cm LV Mass Index: 74 g/m2 LVEDV Index: 39 ml/m2 LV % FS 29.1 % LA VOLUME: Normal Ranges: LA Vol A4C: 40.3 ml (22+/-6mL/m2) LA Vol A2C: 32.7 ml LA Vol BP: 37.3 ml LA Vol Index A4C: 20.8ml/m2 LA Vol Index A2C: 16.9 ml/m2 LA Vol Index BP: 19.3 ml/m2 LA Area A4C: 16.0 cm2 LA Area A2C: 14.0 cm2 LA [place] A4C: 5.4 cm LA [place] A2C: 5.1 cm LA Volume Index: 19.3 ml/m2 LA Vol A4C: 36.9 ml LA Vol A2C: 31.0 ml LA Vol Index BSA: 17.5 ml/m2 RA VOLUME BY A/L METHOD: Normal Ranges: RA Area A4C: 15.4 cm2 AORTA MEASUREMENTS: Normal Ranges: Ao Sinus, d: 3.70 cm (2.1-3.5cm) Ao STJ, d: 3.20 cm (1.7-3.4cm) Asc Ao, d: 5.00 cm (2.1-3.4cm) LV SYSTOLIC FUNCTION BY 2D PLANIMETRY (MOD): Normal Ranges: EF-A4C View: 67 % (>=55%) EF-A2C View: 71 % EF-Biplane: 69 % EF-Visual: 63 % LV EF Reported: 63 % LV DIASTOLIC FUNCTION: Normal Ranges: MV Peak E: 0.49 m/s (0.7-1.2 m/s) MV Peak A: 0.74 m/s (0.42-0.7 m/s) E/A Ratio: 0.67 (1.0-2.2) MV e' 0.070 m/s (>8.0) MV lateral e' 0.09 m/s MV medial e' 0.05 m/s E/e' Ratio: 7.06 (<8.0) MITRAL VALVE: Normal Ranges: MV DT: 352 msec (150-240msec) MITRAL INSUFFICIENCY: Normal Ranges: MR VTI: 158.58 cm MR Vmax: 483.44 cm/s AORTIC VALVE: Normal Ranges: AoV Vmax: 1.11 m/s (<=1.7m/s) AoV Peak P.0 mmHg (<20mmHg) AoV Mean P.8 mmHg (1.7-11.5mmHg) LVOT Max Last: 0.79 m/s (<=1.1m/s) AoV VTI: 28.24 cm (18-25cm) LVOT VTI: 20.42 cm LVOT Diameter: 2.06 cm (1.8-2.4cm) AoV Area, VTI: 2.41 cm2 (2.5-5.5cm2) AoV Area,Vmax: 2.37 cm2 (2.5-4.5cm2) AoV Dimensionless Index: 0.72 RIGHT VENTRICLE: RV Basal 3.50 cm TAPSE: 20.4 mm RV s' 0.09 m/s TRICUSPID VALVE/RVSP: Normal Ranges: Peak TR Velocity: 2.55 m/s RV Syst Pressure: 29 mmHg (< 30mmHg) IVC Diam: 1.51 cm AORTA: Asc Ao Diam 4.49 cm [id number] Rob Jones MD Electronically signed on 06/05/2024 at 4:01:39 PM Final Ejection Fractions: LV EF Date/Time Value Ref Range Status 06/03/2024 09:29 AM 63 % Cath: Coronary Angiography: No results found for this or any previous visit from the past 1800 days. Right Heart Cath: No results found for this or any previous visit from the past 1800 days. Stress Test: Nuclear:No results found for this or any previous visit from the past 1800 days. Metabolic Stress: No results found for this or any previous visit from the past 1800 days. Cardiac Imaging: Cardiac Scoring: No results found for this or any previous visit from the past 1800 days. Cardiac MRI: No results found for this or any previous visit from the past 1800 days. Assessment/Plan Assessment/Plan Principal Problem: Ascending aorta dilation (CMS-HCC) Active Problems: Nonrheumatic mitral valve regurgitation Nonrheumatic tricuspid valve regurgitation Nonrheumatic aortic valve insufficiency #Ascending Aortic Aneurysm -[facility] with Dr. Yao as part of pre-op workup for aortic aneurysm surgery. -ASA 324 mg PO pre-procedure BRICK OFF BEARER discussed with Dr. Hendrix regarding plan of care/ discharge plan I spent 30 minutes in the professional and overall care of this patient. JESSE Callaway [facility] Work Phone: [phone]) 977-478610-01-2024 History and physical note* JESSE Callaway - 06/09/2024 11:58 AM EDT History Of Present Illness Karla Cai is a 73 y.o. female presenting with ascending aortic aneuyrsm, here for [facility] as part of pre-op workup for aortic aneurysm surgery. PMHx significant for diverticulitis, HTN, mitral regurgitation, tricuspid regurgitation. Past Medical History: Past Medical History: Diagnosis Date Aortic regurgitation Ascending aortic aneurysm (CMS-HCC) Diverticulitis Hypertension Hypokalemia Mitral regurgitation Tricuspid regurgitation Past Surgical History: Past Surgical History: Procedure Laterality Date BREAST LUMPECTOMY Right BREAST RECONSTRUCTION Right HYSTERECTOMY Social History: reports that she has never smoked. She has never used smokeless tobacco. Family History: Family History Problem Relation Name Age of Onset Hypertension Mother Colon cancer Mother Heart disease Father Prostate cancer Father Hypertension Father Ovarian cancer Sister Thyroid cancer Sister Diabetes Brother Hypertension Brother Allergies: Allergies Allergen Reactions Adhesive Tape-Silicones Itching Amlodipine Swelling Doxazosin Dizziness Lisinopril Cough Meloxicam Other renal Home Medications: Current Outpatient Medications Medication Instructions B complex-vitamin C-folic acid (Nephro-Bull Rx) 1-60-300 mg-mg-mcg tablet 1 tablet, oral, Daily with breakfast beta carotene (VITAMIN A) 10,000 Units, oral, Daily irbesartan (Avapro) 300 mg tablet 1 tablet, oral, Daily (30) metoprolol succinate XL (Toprol-XL) 100 mg 24 hr tablet 1 tablet, oral, Daily (30) multivitamin tablet 1 tablet, oral, Daily mv-min/FA/vit K/lutein/zeaxant (PRESERVISION AREDS 2 PLUS MV ORAL) 1 tablet, oral, Daily olopatadine (Patanol) 0.1 % ophthalmic solution 1 drop, Both Eyes, 2 times daily pravastatin (Pravachol) 20 mg tablet 1 tablet, oral, Daily (30) spironolactone (Aldactone) 50 mg tablet 1 tablet, oral, Daily (0630) Inpatient Medications: Scheduled medications Medication Dose Route Frequency PRN medications Medication Continuous Medications Medication Dose Last Rate sodium chloride 0.9% 100 mL/hr 100 mL/hr (06/09/24 1015) Review of Systems Constitutional: Negative. HENT: Negative. Eyes: Negative. Respiratory: Positive for shortness of breath (BLEU). Cardiovascular: Negative. Gastrointestinal: Negative. Endocrine: Negative. Genitourinary: Negative. Musculoskeletal: Negative. Skin: Negative. Allergic/Immunologic: Negative. Neurological: Positive for light-headedness. Hematological: Negative. Psychiatric/Behavioral: Negative. Physical Exam General: Patient is awake, alert, and oriented. Patient is in no acute distress. HEENT: Pupils equal and reactive. Normocephalic. Moist mucosa. Neck: No JVD. Cardiovascular: Regular rate and rhythm. Normal S1 and S2. +Murmur. Radial pulses 2+. Pulmonary: Clear to auscultation bilaterally. Abdomen: Soft. Non-tender. Non-distended. Positive bowel sounds. Lower Extremities: Pedal pulses 2+ No LE edema. Neurologic: Cranial nerves II-XII grossly intact. No focal deficit. Skin: Skin warm and dry, no lesions. Normal skin turgor. Psychiatric: Normal affect. Sedation Plan ASA 3 Mallampati class: II. Risks, benefits, and alternatives discussed with patient. NPO since 000 Last Recorded Vitals Blood pressure 158/72, pulse 55, temperature 36.4 C (97.5 F), temperature source Temporal, resp. rate 18, height 1.753 m (5' 9), weight 78 kg (171 lb 15.3 oz), SpO2 97%. Vitals from the Past 24 Hours Heart Rate: [55] Temp: [36.4 C (97.5 F)] Resp: [18] BP: (158)/(72) Height: [175.3 cm (5' 9)] Weight: [78 kg (171 lb 15.3 oz)] SpO2: [97 %] Relevant Results Labs CBC: Recent Labs 06/03/24 0930 WBC 6.3 HGB 13.5 HCT 41.8 PLT 364 MCV 93 BMP/CMP: Recent Labs 06/03/24 0930 NA 139 K 4.2 CL 103 BUN 32* CREATININE 1.09* CO2 26 CALCIUM 9.9 GLUCOSE 103* Lipid Panel: No results for input(s): CHOL, HDL, CHHDL, LDL, VLDL, TRIG, NHDL in the last 83756 hours. Cardiac No lab exists for component: CK, CKMBP Hemoglobin A1C: Recent Labs 05/29/24 1124 02/24/24 0722 08/29/23 0847 08/29/22 0737 08/25/21 0841 HGBA1C 5.9* 6.1* 6.0* 6.0* 6.1* TSH/ Free T4: No results for input(s): TSH, FREET4 in the last 52792 hours. Iron: No results for input(s): FERRITIN, TIBC, IRONSAT, BNP in the last 76965 hours. Coag: Results from last 7 days Lab Units 06/03/24 0930 INR 1.0 ABO: No results found for: ABO Past Cardiology Tests (Last 3 Years): EKG: No results for input(s): ATRRATE, VENTRATE, PRINT, QRSDUR, QTCFRED, QTCCALCB in the last 47672 hours.No results found for this or any previous visit (from the past 4464 hour(s)). Echo: Echocardiogram: Transthoracic Echo (TTE) Complete 06/03/2024 [facility], [address] [place] [address], [address] [address] and TRANSTHORACIC ECHOCARDIOGRAM REPORT Patient Name: KARLA Hancock Physician: [id number] Rob Jones MD Study Date: 06/03/2024 Ordering Provider: [id number] JOAQUIM GALLOWAY MRN/PID: [id number] Fellow: Nurse: Date of /Age: 3 1950 / 73 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: Yenny Vyas RDCS Gender: F Additional Staff: Height: 175.26 cm Admit Date: Weight: 78.02 kg Admission Status: Outpatient BSA / BMI: 1.94 m2 / 25.40 kg/m2 Blood Pressure: 120/63 mmHg Department Location: [facility] Study Type: TRANSTHORACIC ECHO (TTE) COMPLETE Diagnosis/ICD: Ascending aorta dilatation-I77.810; Nonrheumatic aortic (valve) insufficiency-I35.1; Nonrheumatic mitral (valve) insufficiency-I34.0 Indication: Asc AO Dilatation CPT Code: Echo Complete w Full Doppler-12426 Patient History: Pertinent History: HTN, ASC AO DILATATION. Study Detail: The following Echo studies were performed: 2D, M-Mode, Doppler and color flow. A bubble study was not performed. PHYSICIAN INTERPRETATION: Left Ventricle: The left ventricular systolic function is normal, with a visually estimated ejection fraction of 60-65%. There are no regional left ventricular wall motion abnormalities. The left ventricular cavity size is normal. Spectral Doppler shows an impaired relaxation pattern of left ventric ular diastolic filling. Left Atrium: The left atrium is normal in size. A bubble study using agitated saline was not performed. Right Ventricle: The right ventricle is normal in size. There is low normal right ventricular systolic function. Right Atrium: The right atrium is normal in size. Aortic Valve: The aortic valve is trileaflet. The aortic valve dimensionless index is 0.72. There is trace aortic valve regurgitation. The peak instantaneous gradient of the aortic valve is 5.0 mmHg.The mean gradient of the aortic valve is 2.8 mmHg. Mitral Valve: The mitral valve is normal in structure. There is mild to moderate mitral valve regurgitation. Tricuspid Valve: The tricuspid valve is structurally normal. There is mild to moderate tricuspid regurgitation. The Doppler estimated RVSP is within normal limits at 29.0 mmHg. Pulmonic Valve: The pulmonic valve is structurally normal. There is physiologic pulmonic valve regurgitation. Pericardium: Trivial pericardial effusion. There is a pericardial fat pad present. Aorta: The aortic root is normal. The ascending thoracic aorta is aneurysmal measuring 5 cm in diameter. Recommend chest cta and/or mra of the chest for confirmation. In comparison to the previous echocardiogram(s): There are no prior studies on this patient for comparison purposes. CONCLUSIONS: 1. The left ventricular systolic function is normal, with a visually estimated ejection fraction of60-65%. 2. Spectral Doppler shows an impaired relaxation pattern of left ventricular diastolic filling. 3. There is low normal right ventricular systolic function. 4. Mild to moderate mitral valve regurgitation. 5. Mild to moderate tricuspid regurgitation visualized. 6. Right ventricular systolic pressure is within normal limits. 7. The ascending thoracic aorta is aneurysmal measuring 5 cm in diameter. Recommend chest cta and/or mra of the chest for confirmation. QUANTITATIVE DATA SUMMARY: 2D MEASUREMENTS: Normal Ranges: LAs: 4.06 cm (2.7-4.0cm) IVSd: 0.86 cm (0.6-1.1cm) LVPWd: 0.88 cm (0.6-1.1cm) LVIDd: 4.83 cm (3.9-5.9cm) LVIDs: 3.43 cm LV Mass Index: 74 g/m2 LVEDV Index: 39 ml/m2 LV % FS 29.1 % LA VOLUME: Normal Ranges: LA Vol A4C: 40.3 ml (22+/-6mL/m2) LA Vol A2C: 32.7 ml LA Vol BP: 37.3 ml LA Vol Index A4C: 20.8ml/m2 LA Vol Index A2C: 16.9 ml/m2 LA Vol Index BP: 19.3 ml/m2 LA Area A4C: 16.0 cm2 LA Area A2C: 14.0 cm2 LA [place] A4C: 5.4 cm LA [place] A2C: 5.1 cm LA Volume Index: 19.3 ml/m2 LA Vol A4C: 36.9 ml LA Vol A2C: 31.0 ml LA Vol Index BSA: 17.5 ml/m2 RA VOLUME BY A/L METHOD: Normal Ranges: RA Area A4C: 15.4 cm2 AORTA MEASUREMENTS: Normal Ranges: Ao Sinus, d: 3.70 cm (2.1-3.5cm) Ao STJ, d: 3.20 cm (1.7-3.4cm) Asc Ao, d: 5.00 cm (2.1-3.4cm) LV SYSTOLIC FUNCTION BY 2D PLANIMETRY (MOD): Normal Ranges: EF-A4C View: 67 % (>=55%) EF-A2C View: 71 % EF-Biplane: 69 % EF-Visual: 63 % LV EF Reported: 63 % LV DIASTOLIC FUNCTION: Normal Ranges: MV Peak E: 0.49 m/s (0.7-1.2 m/s) MV Peak A: 0.74 m/s (0.42-0.7 m/s) E/A Ratio: 0.67 (1.0-2.2) MV e' 0.070 m/s (>8.0) MV lateral e' 0.09 m/s MV medial e' 0.05 m/s E/e' Ratio: 7.06 (<8.0) MITRAL VALVE: Normal Ranges: MV DT: 352 msec (150-240msec) MITRAL INSUFFICIENCY: Normal Ranges: MR VTI: 158.58 cm MR Vmax: 483.44 cm/s AORTIC VALVE: Normal Ranges: AoV Vmax: 1.11 m/s (<=1.7m/s) AoV Peak P.0 mmHg (<20mmHg) AoV Mean P.8 mmHg (1.7-11.5mmHg) LVOT Max Last: 0.79 m/s (<=1.1m/s) AoV VTI: 28.24 cm (18-25cm) LVOT VTI: 20.42 cm LVOT Diameter: 2.06 cm (1.8-2.4cm) AoV Area, VTI: 2.41 cm2 (2.5-5.5cm2) AoV Area,Vmax: 2.37 cm2 (2.5-4.5cm2) AoV Dimensionless Index: 0.72 RIGHT VENTRICLE: RV Basal 3.50 cm TAPSE: 20.4 mm RV s' 0.09 m/s TRICUSPID VALVE/RVSP: Normal Ranges: Peak TR Velocity: 2.55 m/s RV Syst Pressure: 29 mmHg (< 30mmHg) IVC Diam: 1.51 cm AORTA: Asc Ao Diam 4.49 cm [id number] Rob Jones MD Electronically signed on 06/05/2024 at 4:01:39 PM Final Ejection Fractions: LV EF Date/Time Value Ref Range Status 06/03/2024 09:29 AM 63 % Cath: Coronary Angiography: No results found for this or any previous visit from the past 1800 days. Right Heart Cath: No results found for this or any previous visit from the past 1800 days. Stress Test: Nuclear:No results found for this or any previous visit from the past 1800 days. Metabolic Stress: No results found for this or any previous visit from the past 1800 days. Cardiac Imaging: Cardiac Scoring: No results found for this or any previous visit from the past 1800 days. Cardiac MRI: No results found for this or any previous visit from the past 1800 days. Assessment/Plan Assessment/Plan Principal Problem: Ascending aorta dilation (CMS-HCC) Active Problems: Nonrheumatic mitral valve regurgitation Nonrheumatic tricuspid valve regurgitation Nonrheumatic aortic valve insufficiency #Ascending Aortic Aneurysm -[facility] with Dr. Yao as part of pre-op workup for aortic aneurysm surgery. -ASA 324 mg PO pre-procedure BRICK OFF BEARER discussed with Dr. Hendrix regarding plan of care/ discharge plan I spent 30 minutes in the professional and overall care of this patient. JESSE Callaway documented in this [facility] Work Phone: [phone]) 183-326609-20-2024 NoteHNO ID: [id number] Author: JAE BELCHER MD Service: ? Author Type: Physician Type: Progress Notes Filed: 05/29/2024 14:00 Note Text: This note was created using [employer]. Subjective Patient presents with: F/U 3 Month Karla Cai is a 73 year old female. She was here for follow up of newly diagnosed diabetes. She was not on medication and had no symptoms of hyperglycemia. Her fasting glucoses have elevated but her A1C's continued to be borderline. She just finished cephalexin for urinary tract infection and symptoms were recurring. Urine culture was + E. Coli. She scraped her right knee and clark this Saturday getting off a boat. She was applying [employer]. Her vascular specialist referred her to in [place] for consideration of thoracic aneurysm repair. Review of Systems Constitutional: Negative for chills and fever. Respiratory: Negative for shortness of breath. Cardiovascular: Negative for chest pain and palpitations. Gastrointestinal: Negative for abdominal pain. Genitourinary: Negative for flank pain. 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 Per [facility] VITAMIN A ORAL Take 400 mg by mouth once daily. olopatadine hcl(PATANOL 0.1 % EYE DROPS) 1 to 2 drops to each eye twice daily as needed [id number] [id number] (WOMEN'S 50 PLUS MULTIVITAMIN) 400 mcg-500 mg calcium-20 mcg tab Take 1 tablet by mouth once daily. No current facility-administered medications for this visit. Objective BP 118/78 (BP Site: Left Arm, BP Position: Sitting, BP Cuff Size: Regular Adult) Pulse 68 Resp 18 Wt 77.7 kg (171 lb 4.8 oz) SpO2 94% BMI 26.05 kg/m? Physical Exam Constitutional: Appearance: Normal appearance. She is not ill-appearing. HENT: Head: Normocephalic. Cardiovascular: Rate and Rhythm: Normal rate and regular rhythm. Heart sounds: S1 normal and S2 normal. Murmur heard. Systolic murmur is present with a grade of 1/6. Comments: LLSB Pulmonary: Breath sounds: Normal breath sounds. Abdominal: Tenderness: There is no abdominal tenderness. There is no right CVA tenderness or left CVA tenderness. Musculoskeletal: Right lower leg: No edema. Left lower leg: No edema. Comments: Moist ovoid abrasion right knee 2 x 1 cm minimal marginal erythema. Moist linear abrasion right clark. Neurological: Mental Status: She is alert. Latest Ref Rng 05/29/2024 Hemoglobin A1C (POCT) 4.3 - 5.6 % 5.9 ! Legend: ! Abnormal Assessment and Plan 1. Encounter for immunization - ICD9: V03.89, ICD10: Z23 (primary diagnosis) - INFLUENZA VACCINE, PRSV FREE, AGE 65+ YR, HIGH DOSE, TRIVALENT (FLUZONE HIGH-DOSE) 2. Burning with urination - ICD9: 788.1, ICD10: R30.0 acute - UA DIP B/O - CEPHALEXIN 500 MG CAPSULE. Repeat treatment TID x 7 days. 3. Abrasion of right lower extremity, initial encounter - ICD9: 916.0, ICD10: S80.811A - Continue self wound care. - Get Tdap booster at the pharmacy. 4. Controlled type 2 diabetes mellitus without complication, without long-term current use of insulin (HCC) - ICD9: 250.00, ICD10: E11.9 - Diet controlled - HEMOGLOBIN A1C (POC) - COMPREHENSIVE METABOLIC PANEL - LIPID PANEL BASIC - HEMOGLOBIN A1C - ALBUMIN/CREATININE RATIO, URINE 5. Aneurysm of ascending aorta without rupture (HCC) - ICD9: 441.2, ICD10: I71.21 - Evaluation ongoing at [facility]. Jae Belcher [facility]09-20-2024 History of Present illness Narrative* Jae Belcher MD - 05/29/2024 10:49 AM EDT This note was created using NoteWriter. Subjective Patient presents with: F/U 3 Month Karla Cai is a 73 year old female. She was here for follow up of newly diagnosed diabetes. She was not on medication and had no symptoms of hyperglycemia. Her fasting glucoses have elevated buther A1C's continued to be borderline. She just finished cephalexin for urinary tract infection and symptoms were recurring. Urine culturewas + E. Coli. She scraped her right knee and clark this Saturday getting off a boat. She was applying ALEXI. Her vascular specialist referred her to in [place] for consideration of thoracic aneurysm repair. Review of Systems Constitutional: Negative for chills and fever. Respiratory: Negative for shortness of breath. Cardiovascular: Negative for chest pain and palpitations. Gastrointestinal: Negative for abdominal pain. Genitourinary: Negative for flank pain. 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 Per [facility] VITAMIN A ORAL Take 400 mg by mouth once daily. olopatadine hcl(PATANOL 0.1 % EYE DROPS) 1 to 2 drops to each eye twice daily as needed [id number] [id number] (WOMEN'S 50 PLUS MULTIVITAMIN) 400 mcg-500 mg calcium-20 mcg tab Take 1 tablet by mouth once daily. No current facility-administered medications for this visit. Objective BP 118/78 (BP Site: Left Arm, BP Position: Sitting, BP Cuff Size: Regular Adult) Pulse 68 Resp 18 Wt 77.7 kg (171 lb 4.8 oz) SpO2 94% BMI 26.05 kg/m Physical Exam Constitutional: Appearance: Normal appearance. She is not ill-appearing. HENT: Head: Normocephalic. Cardiovascular: Rate and Rhythm: Normal rate and regular rhythm. Heart sounds: S1 normal and S2 normal. Murmur heard. Systolic murmur is present with a grade of 1/6. Comments: LLSB Pulmonary: Breath sounds: Normal breath sounds. Abdominal: Tenderness: There is no abdominal tenderness. There is no right CVA tenderness or left CVA tenderness. Musculoskeletal: Right lower leg: No edema. Left lower leg: No edema. Comments: Moist ovoid abrasion right knee 2 x 1 cm minimal marginal erythema. Moist linear abrasionright clark. Neurological: Mental Status: She is alert. Latest Ref Rng 05/29/2024 Hemoglobin A1C (POCT) 4.3 - 5.6 % 5.9 ! Legend: ! Abnormal Assessment and Plan 1. Encounter for immunization - ICD9: V03.89, ICD10: Z23 (primary diagnosis) - INFLUENZA VACCINE, PRSV FREE, AGE 65+ YR, HIGH DOSE, TRIVALENT (FLUZONE HIGH-DOSE) 2. Burning with urination - ICD9: 788.1, ICD10: R30.0 acute - UA DIP B/O - CEPHALEXIN 500 MG CAPSULE. Repeat treatment TID x 7 days. 3. Abrasion of right lower extremity, initial encounter - ICD9: 916.0, ICD10: S80.811A - Continue self wound care. - Get Tdap booster at the pharmacy. 4. Controlled type 2 diabetes mellitus without complication, without long-term current use of insulin (HCC) - ICD9: 250.00, ICD10: E11.9 - Diet controlled - HEMOGLOBIN A1C (POC) - COMPREHENSIVE METABOLIC PANEL - LIPID PANEL BASIC - HEMOGLOBIN A1C - ALBUMIN/CREATININE RATIO, URINE 5. Aneurysm of ascending aorta without rupture (HCC) - ICD9: 441.2, ICD10: I71.21 - Evaluation ongoing at [facility]. Jae Belcher MD documented in this encounter[facility] History of Present illness Narrative* Joaquim Galloway MD - 05/27/2024 2:00 PM EDT Chief Complaint Ascending aortic aneurysm HPI: Ms. Karla Cai is a 73-year-old female referred for evaluation of an ascending aortic aneurysm. She reports that she has known about her aneurysm since 2019. She is asymptomatic and has been followed with serial imaging. She had a CT in 08/2023, which demonstrated a 4.8cm ascending aortic aneurysm. Repeat CT in 04/2024 demonstrated stability of her ascending aortic aneurysm, which again measured 4.8cm. She denies chest pain and back pain. She has mild exertional dyspnea when walking uphill. Her history is significant for well- controlled hypertension. She denies tobacco use. She has no family history of aortic aneurysms, connective tissue disease, or sudden . Past Medical History: Diagnosis Date Aortic regurgitation Ascending aortic aneurysm (CMS-HCC) Diverticulitis Hypertension Hypokalemia Mitral regurgitation Tricuspid regurgitation Past Surgical History: Procedure Laterality Date BREAST LUMPECTOMY Right BREAST RECONSTRUCTION Right HYSTERECTOMY Family History Problem Relation Name Age of Onset Hypertension Mother Colon cancer Mother Heart disease Father Prostate cancer Father Hypertension Father Ovarian cancer Sister Thyroid cancer Sister Diabetes Brother Hypertension Brother Social History Socioeconomic History Marital status: Spouse name: Not on file Number of children: Not on file Years of education: Not on file Highest education level: Not on file Occupational History Not on file Tobacco Use Smoking status: Never Smokeless tobacco: Never Substance and Sexual Activity Alcohol use: Not on file Drug use: Not on file Sexual activity: Not on file Other Topics Concern Not on file Social History Narrative Not on file Social Determinants of Health Financial Resource Strain: Low Risk (02/18/2024) [facility] Overall Financial Resource Strain (CARDIA) Difficulty of Paying Living Expenses: Not hard at all Food Insecurity: No Food Insecurity (02/18/2024) Received from [facility] Hunger Vital Sign Worried About Running Out of Food in the Last Year: Never true Ran Out of Food in the Last Year: Never true Transportation Needs: No Transportation Needs (02/18/2024) Re[facility] from [facility] PRAPARE - Transportation Lack of Transportation (Medical): No Lack of Transportation (Non-Medical): No Physical Activity: Sufficiently Active (02/18/2024) Received from [facility] Exercise Vital Sign Days of Exercise per Week: 4 days Minutes of Exercise per Session: 60 min Stress: No Stress Concern Present (02/18/2024) Re[facility] from [facility] [employer] [place] [employer] - Occupational Stress Questionnaire Feeling of Stress : Only a little Social Connections: Socially Integrated (02/18/2024) Received from [facility] Social Connection and Isolation Panel [NHANES] Frequency of Communication with Friends and Family: More than three times a week Frequency of Social Gatherings with Friends and Family: More than three times a week Attends Tenriism Services: More than 4 times per year Active Member of Clubs or Organizations: Yes Attends Club or Organization Meetings: More than 4 times per year Marital Status: Intimate Partner Violence: Not on file Housing Stability: Not on file Allergies Allergen Reactions Adhesive Tape-Silicones Itching Amlodipine Swelling Doxazosin Dizziness Lisinopril Cough Meloxicam Other renal Outpatient Encounter Medications as of 05/27/2024 Medication Sig Dispense Refill B complex-vitamin C-folic acid (Nephro-Bull Rx) 1-60-300 mg-mg-mcg tablet Take 1 tablet by mouth once daily with breakfast. beta carotene (vitamin A) 3,000 mcg (10,000 unit) capsule Take 1 capsule (10,000 Units) by mouth once daily. irbesartan (Avapro) 300 mg tablet Take 1 tablet (300 mg) by mouth early in the morning.. metoprolol succinate XL (Toprol-XL) 100 mg 24 hr tablet Take 1 tablet (100 mg) by mouth early in the morning.. multivitamin tablet Take 1 tablet by mouth once daily. mv-min/FA/vit K/lutein/zeaxant (PRESERVISION AREDS 2 PLUS MV ORAL) Take 1 tablet by mouth once daily. olopatadine (Patanol) 0.1 % ophthalmic solution Administer 1 drop into both eyes 2 times a day. pravastatin (Pravachol) 20 mg tablet Take 1 tablet (20 mg) by mouth early in the morning.. spironolactone (Aldactone) 50 mg tablet Take 1 tablet (50 mg) by mouth early in the morning.. No facility-administered encounter medications on file as of 05/27/2024. Physical Exam Constitutional: General: She is not in acute distress. Appearance: Normal appearance. HENT: Head: Normocephalic and atraumatic. Eyes: Extraocular Movements: Extraocular movements intact. Cardiovascular: Rate and Rhythm: Normal rate and regular rhythm. Pulses: Normal pulses. Pulmonary: Effort: Pulmonary effort is normal. Breath sounds: Normal breath sounds. No wheezing. Abdominal: General: There is no distension. Palpations: Abdomen is soft. Musculoskeletal: General: No swelling. Right lower leg: No edema. Left lower leg: No edema. Skin: General: Skin is warm and dry. Neurological: General: No focal deficit present. Mental Status: She is alert and oriented to person, place, and time. Sensory: No sensory deficit. Motor: No weakness. Psychiatric: Mood and Affect: Mood normal. Behavior: Behavior normal. No results found for this or any previous visit (from the past 4463 hour(s)). No results found for: WBC, HGB, HCT, MCV, PLT No results found for: GLUCOSE, CALCIUM, NA, K, CO2, CL, BUN, CREATININE No echocardiogram results found for the past 12 months Assessment and Plan: Ms. Karla Cai is an 73 y.o. female who has been referred with an ascending aortic aneurysm. I had a chance to review all available, pertinent investigations. My interpretation of these studies is as follows: - Stable 4.8cm ascending aortic aneurysm on serial CT imaging from 08/2023 to 04/2024 - Mild aortic regurgitation, moderate mitral regurgitation, and mild to moderate tricuspid regurgitation on TTE 08/2023 Based on a review of her symptoms and investigations, the options are as follows: - Continued observation of her aneurysm with serial CT imaging, understanding the risk of aortic dissection and rupture, versus operative intervention with ascending aortic replacement We had a good discussion about these options, and feel that additional imaging with transthoracic echocardiogram and cardiac catheterization would guide operative planning and inform her decision on whether to proceed with surgery. Regarding surgery, the accepted indications are an enlarging or 5cm ascending aortic aneurysm. Given the 4.8cm size of her aneurysm, early intervention in an elective setting would be recommended over delayed intervention in an emergent setting as her aneurysm approaches 5cm. We plan to schedule another clinic visit following a TTE to reassess her valvulopathy and a cardiaccatheterization to assess for coronary artery disease. Joaquim Galloway MD Cardiac Surgery [facility] Work Phone: [phone] 161-982709-16-2024 Telephone encounter Note* Telephone Encounter - Chad Delgado MA - 05/25/2024 1:44 PM EDT Patient active MyChart. Patient notified via Curious Hat message. Chad Delgado MA [facility]09-16-2024 Miscellaneous Notes* Telephone Encounter - Chad Delgado MA - 05/25/2024 1:44 PM EDT Patient active MyChart. Patient notified via MyChart message. Chad Delgado MA * Telephone Encounter - Elizabeth Dash MA - 05/23/2024 3:30 PM EDT Left message for patient to return call. Elizabeth Dash MA * Telephone Encounter - Claribel Hooper APRN.CNP - 05/23/2024 3:17 PM EDT Please call patient and let her know she is on the correct antibiotic according to urine culture. Please let her know if her symptoms are not improving she needs to follow-up with primary care. documented in this encounterPromed[facility]09-14-2024 Telephone encounter Note * Telephone Encounter - Elizabeth Dash MA - 05/23/2024 3:30 PM EDT Left message for patient to return call. Elizabeth Dash MA [facility]09-14-2024 Telephone encounter Note* Telephone Encounter - Claribel Hooper APRN.CNP - 05/23/2024 3:17 PM EDT Please call patient and let her know she is on the correct antibiotic according to urine culture. Please let her know if her symptoms are not improving she needs to follow-up with primary care. [facility] Work Phone: 1(782) 890-974009-11-2024 NoteHNO ID: [id number] Author: TORRI FERRER PA Service: ? Author Type: Physician Molding Technician Type: Progress Notes Filed: 05/20/2024 11:40 Note Text: This note was created using [employer]. Subjective Karla Cai is a 73 year old female. HPI 73-year-old female presents for urinary frequency, urgency, burning. Patient states symptoms have been going on for about a week. She states they resolved while she was taking Azo, but when she stopped taking it, they returned. She has not taken Azo for about 3 days now. She has not seen any blood in the urine. No abdominal pain, back pain, fevers, vomiting. She does have history of UTIs in the past, but none recently. She states that she does have CKD as well. No other complaint. 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 03/2011: DCIS (ductal carcinoma in situ) No date: Diverticulitis 07/27/2019: Diverticulosis 07/26/2009: Eczematous dermatitis of eyelid No date: Essential hypertension, benign 08/27/2013: History of colonoscopy with polypectomy Comment: tubular adenoma, patient prefers prep with least amount of sodium 07/27/2019: Impaired fasting glucose 11/29/2022: Mitral valve insufficiency 08/26/2023: Osteopenia PAST SURGICAL HISTORY 1986: BIOPSY BREAST OPEN INCISIONAL Comment: Left Breast cyst 03/07/2011: BX BREAST PERC VACUUM/ROTN Comment: Right - DCIS 2003: COLONOSCOPY Comment: Per repeat in 10 yrs (-2013) 08/08/2018: COLONOSCOPY FLX DX W/COLLJ SPEC WHEN PFRMD Comment: Colonoscopy, patient prefers prep with least amount of sodium 12/15/1997: DIAGNOSIS/HISTORY; Left Comment: acoustic neuroma unilateral, 47 04/12/2011: EXC BREAST LES PREOP PLMT RAD MARKER OPEN 1 LES Comment: RIght Needle Loc - Excisional 10/10/2013: EYE SURGERY HX Comment: right/left cararact surgery 1999: HEMORRHOIDECTOMY XTRNL 2/> COLUMN/GROUP 1992: PUNCTURE ASPIRATION CYST BREAST Comment: Right breast 10/10/2000: VAGINAL HYSTERECTOMY UTERUS 250 GM/< Comment: Hysterectomy, vaginal ALLERGIES Adhesive, Meloxicam, House Dust Mite, Lisinopril, and Norvasc [Amlodipine Besylate] MEDICATIONS metoprolol succinate ER (TOPROL XL) 100 mg [...] 1 tablet by mouth once daily. Per [facility] VITAMIN A ORAL Take 400 mg by mouth once daily. olopatadine hcl(PATANOL 0.1 % EYE DROPS) 1 to 2 drops to each eye twice daily as needed cephALEXin (KEFLEX) 500 mg capsule Take 1 capsule by mouth two times a day for 7 days. FAMILY HISTORY Problem Relation Age of Onset [...] per week Comment: 1-2/week Drug use: No Review of Systems Constitutional: Negative for chills and fever. HENT: Negative for congestion, ear pain and sore throat. Respiratory: Negative for cough and shortness of breath. Cardiovascular: Negative for chest pain. Gastrointestinal: Negative for abdominal pain, diarrhea and vomiting. Genitourinary: Positive for dysuria, frequency and urgency. Negative for hematuria. Objective BP 124/70 Pulse 68 Temp 37.1 ?C (98.7 ?F) Resp 16 Wt 79.6 kg (175 lb 7.8 oz) SpO2 97% BMI 26.68 kg/m? Physical Exam Vitals and nursing note reviewed. Constitutional: General: She is not in acute distress. Appearance: Normal appearance. She is not toxic-appearing. Cardiovascular: Rate and Rhythm: Normal rate and regular rhythm. Pulmonary: Effort: Pulmonary effort is normal. Breath sounds: Normal breath sounds. Abdominal: General: Abdomen is flat. Palpations: Abdomen is soft. Tenderness: There is no abdominal tenderness. There is no right CVA tenderness or left CVA tenderness. Skin: General: Skin is warm and dry. (more content not included)...[facility]09-11-2024 History of Present illness Narrative* Torri Ferrer PA - 05/20/2024 11:38 AM EDT This note was created using [employer]. Subjective Karla Cai is a 73 year old female. HPI 73-year-old female presents for urinary frequency, urgency, burning. Patient states symptoms have been going on for about a week. She states they resolved while she was taking Azo, but when she stopped taking it, they returned. She has not taken Azo for about 3 days now. She has not seen any blood in the urine. No abdominal pain, back pain, fevers, vomiting. She does have history of UTIs in th e past, but none recently. She states that she does have CKD as well. No other complaint. 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 03/2011: DCIS (ductal carcinoma in situ) No date: Diverticulitis 07/27/2019: Diverticulosis 07/26/2009: Eczematous dermatitis of eyelid No date: Essential hypertension, benign 08/27/2013: History of colonoscopy with polypectomy Comment: tubular adenoma, patient prefers prep with least amount of sodium 07/27/2019: Impaired fasting glucose 11/29/2022: Mitral valve insufficiency 08/26/2023: Osteopenia PAST SURGICAL HISTORY 1986: BIOPSY BREAST OPEN INCISIONAL Comment: Left Breast cyst 03/07/2011: BX BREAST PERC VACUUM/ROTN Comment: Right - DCIS 2004: COLONOSCOPY Comment: Per [facility] repeat in 10 yrs (1-2013) 08/08/2018: COLONOSCOPY FLX DX W/COLLJ SPEC WHEN PFRMD Comment: Colonoscopy, patient prefers prep with least amount of sodium 12/15/1997: DIAGNOSIS/HISTORY; Left Comment: acoustic neuroma unilateral, 47 04/12/2011: EXC BREAST LES PREOP PLMT RAD MARKER OPEN 1 LES Comment: RIght Needle Loc - Excisional 10/10/2013: EYE SURGERY HX Comment: right/left cararact surgery 1999: HEMORRHOIDECTOMY XTRNL 2/> COLUMN/GROUP 1992: PUNCTURE ASPIRATION CYST BREAST Comment: Right breast 10/10/2000: VAGINAL HYSTERECTOMY UTERUS 250 GM/< Comment: Hysterectomy, vaginal ALLERGIES Adhesive, Meloxicam, House Dust Mite, Lisinopril, and Norvasc [Amlodipine Besylate] MEDICATIONS metoprolol succinate ER (TOPROL XL) 100 mg [...] 1 tablet by mouth once daily. Per [facility] VITAMIN A ORAL Take 400 mg by mouth once daily. olopatadine hcl(PATANOL 0.1 % EYE DROPS) 1 to 2 drops to each eye twice daily as needed cephALEXin (KEFLEX) 500 mg capsule Take 1 capsule by mouth two times a day for 7 days. FAMILY HISTORY Problem Relation Age of Onset [...] per week Comment: 1-2/week Drug use: No Review of Systems Constitutional: Negative for chills and fever. HENT: Negative for congestion, ear pain and sore throat. Respiratory: Negative for cough and shortness of breath. Cardiovascular: Negative for chest pain. Gastrointestinal: Negative for abdominal pain, diarrhea and vomiting. Genitourinary: Positive for dysuria, frequency and urgency. Negative for hematuria. Objective BP 124/70 Pulse 68 Temp 37.1 C (98.7 F) Resp 16 Wt 79.6 kg (175 lb 7.8 oz) SpO2 97% BMI26.68 kg/m Physical Exam Vitals and nursing note reviewed. Constitutional: General: She is not in acute distress. Appearance: Normal appearance. She is not toxic-appearing. Cardiovascular: Rate and Rhythm: Normal rate and regular rhythm. Pulmonary: Effort: Pulmonary effort is normal. Breath sounds: Normal breath sounds. Abdominal: General: Abdomen is flat. Palpations: Abdomen is soft. Tenderness: There is no abdominal tenderness. There is no right CVA tenderness or left CVA tenderness. Skin: General: Skin is warm and dry. Neurological: Mental Status: She is alert. Assessment and Plan ASSESSMENT/PLAN: 1. Urinary frequency - ICD9: 788.41, ICD10: R35.0 acute - UA positive for celena esterase, hematuria, and proteinuria - Send urine for culture Creatinine clearance calculated from labs 02/2024 is 68 - Begin treatment with cephalexin for 7 days - Patient education for prevention given - UA DIP, URINE (POC) - URINE CULTURE Diagnosis and treatment plan were discussed and questions were answered to the patient's satisfaction. Pt acknowledged understanding of concepts and follow up plan. Specific signs and symptoms that would indicate the need for higher level of care were discussed in detail warranting prompt ER evaluation. WILY Guillen documented in this encounterPromed[facility]08-30-2024 Telephone encounter Note * Telephone Encounter - Teodoro Roca MA - 05/08/2024 10:44 AM EDT Prescription Refill Information The patient has been identified by name and date of : Yes Caregiver verified no other encounters exist for this prescription request: Yes Caregiver confirmed with patient/requestor that no other refills are due, in the near future, with this provider at this time: Yes The last office visit in the department: 02/25/2024 Does the patient have a future office visit with this provider/department: Yes Requested Prescriptions Pending Prescriptions Disp Refills metoprolol succinate ER (TOPROL XL) 100 mg 90 tablet 3 Sig: Take 1 tablet by mouth once daily. Teodoro Roca MA May 08, 2024 10:45 AM [facility]08-30-20[facility] Miscellaneous Notes* Telephone Encounter - Teodoro Roca MA - 05/08/2024 10:44 AM EDT Prescription Refill Information The patient has been identified by name and date of : Yes Caregiver verified no other encounters exist for this prescription request: Yes Caregiver confirmed with patient/requestor that no other refills are due, in the near future, with this provider at this time: Yes The last office visit in the department: 02/25/2024 Does the patient have a future office visit with this provider/department: Yes Requested Prescriptions Pending Prescriptions Disp Refills metoprolol succinate ER (TOPROL XL) 100 mg 90 tablet 3 Sig: Take 1 tablet by mouth once daily. Teodoro Roca MA May 08, 2024 10:45 AM documented in this encounter[facility] Telephone encounter Note * Telephone Encounter - Teodoro Roca MA - 03/24/2024 10:08 AM EDT Patient notified, verbalized understanding. [facility] Miscellaneous Notes* Telephone Encounter - Teodoro Roca MA - 03/24/2024 10:08 AM EDT Patient notified, verbalized understanding. * Telephone Encounter - Jae Belcher MD - 03/23/2024 8:06 PM EDT Kidney cysts are common, benign, and not expected to be an issue. These have been noted on CT [place] early as 2018. * Telephone Encounter - Odilia Cox LPN - 03/23/2024 8:40 AM EDT Patient returned call and went over ultrasound results from Dr Belcher with understanding. Patient concerned report says lesions in both kidneys one 2.0 cm and other 6.1 cm is that going to be a problem down the road? * Telephone Encounter - Mandie Recinos LPN - 03/23/2024 8:14 AM EDT Left a message for pt to call the office and ask to speak to a nurse. Mandie Recinos LPN * Telephone Encounter - Mandie Recinos LPN - 03/23/2024 8:13 AM EDT ----- Message from Jae Belcher MD sent at 03/21/2024 10:50 AM EDT ----- See comment. Within normal limits. documented in this encounterProm[facility]07-15-2024 Telephone encounter Note * Telephone Encounter - Jae Belcher MD - 03/23/2024 8:06 PM EDT Kidney cysts are common, benign, and not expected to be an issue. These have been noted on CT [place] early as 2018. [facility] Telephone encounter Note* Telephone Encounter - Odilia Cox LPN - 03/23/2024 8:40 AM EDT Patient returned call and went over ultrasound results from Dr Belcher with understanding. Patient concerned report says lesions in both kidneys one 2.0 cm and other 6.1 cm is that going to be a problem down the road? [facility]07[facility] Telephone encounter Note* Telephone Encounter - Mandie Recinos LPN - 03/23/2024 8:14 AM EDT Left a message for pt to call the office and ask to speak to a nurse. Mandie Recinos LPN [facility] Telephone encounter Note* Telephone Encounter - Mandie Recinos LPN - 03/23/2024 8:13 AM EDT ----- Message from Jae Belcher MD sent at 03/21/2024 10:50 AM EDT ----- See comment. Within normal limits. [facility]07-03-[facility]24 NoteHNO ID: [id number] Author: ABDIFATAH AVELAR, DANIEL Service: ? Author Type: Registered Nurse Type: Progress Notes Filed: 03/11/2024 13:34 Note Text: DIABETES CARE AND EDUCATION VISIT Location: [place] Type of visit: In person individual PATIENT'S MAIN CONCERN TODAY: New diagnosis of Pre-diabetes Support person present for education today: none Cognitive ability: Alert and oriented Motivation to learn: Interested Learning barriers identified by educator: none Method of instruction: written, verbal, and demonstration DIABETES FINDINGS: Monitoring: Reviewed A1c and monitoring Meal Planning: Reviewed basic ADA diet recommendations Medications: discussed Metformin as most often used medication for first instance Physical Activity: benefits of activity to help avoid progression of diabetes Reducing Risks: Importance of maintaining good control to avoid complications reviewed HANDOUTS: Healthy You: Survival Skills and Healthy You: Planning Healthy Meals LEARNING RESPONSE: Healthy eating: Demonstrated understanding/competency today or at previous visit Being active: Demonstrated understanding/competency today or at previous visit POSSIBLE FUTURE TOPICS: 1. DIABETES CARE AND EDUCATION PLAN: Education completed and annual diabetes education follow-up visit recommended Time Spent (Minutes): 30 This visit note will be communicated to the healthcare provider via access to shared medical record. SIGNATURE: Abdifatah Avelar RN PATIENT NAME: Karla Cai DATE: March 11, 2024 TIME: 12:45 [facility] [place]07-03-2024 History of Present illness Narrative* Abdifatah Avelar RN - 03/11/2024 12:45 PM EDT DIABETES CARE AND EDUCATION VISIT Location: [place] Type of visit: In person individual PATIENT'S MAIN CONCERN TODAY: New diagnosis of Pre-diabetes Support person present for education today: none Cognitive ability: Alert and oriented Motivation to learn: Interested Learning barriers identified by educator: none Method of instruction: written, verbal, and demonstration DIABETES FINDINGS: Monitoring: Reviewed A1c and monitoring Meal Planning: Reviewed basic ADA diet recommendations Medications: discussed Metformin as most often used medication for first instance Physical Activity: benefits of activity to help avoid progression of diabetes Reducing Risks: Importance of maintaining good control to avoid complications reviewed HANDOUTS: Healthy You: Survival Skills and Healthy You: Planning Healthy Meals LEARNING RESPONSE: Healthy eating: Demonstrated understanding/competency today or at previous visit Being active: Demonstrated understanding/competency today or at previous visit POSSIBLE FUTURE TOPICS: 1. DIABETES CARE AND EDUCATION PLAN: Education completed and annual diabetes education follow-up visit recommended Time Spent (Minutes): 30 This visit note will be communicated to the healthcare provider via access to shared medical record. SIGNATURE: Abdifatah Avelar RN PATIENT NAME: Karla Cai DATE: March 11, 2024 TIME: 12:45 PM documented in this encounterPromedica [facility] Hospital06-18-2024 NoteHNO ID: [id number] Author: JAE BELCHER MD Service: ? Author Type: Physician Type: Progress Notes Filed: 02/26/2024 00:07 Note Text: This note was created using [employer]. Subjective Karla Cai is a 73 year old female. She felt well, and was mainly concerned with her lab results. 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 irbesartan (AVAPRO) 300 mg tablet Take 1 tablet by mouth once daily. pravastatin (PRAVACHOL) 20 mg tablet Take 1 tablet by mouth once daily. vit C/E/Zn/coppr/lutein/zeaxan (PRESERVISION AREDS-2 ORAL) Take 1 tablet by mouth two times a day. metoprolol succinate ER (TOPROL XL) 100 mg Take 1 tablet by mouth once daily. spironolactone (ALDACTONE) 50 mg tablet Take 1 tablet by mouth once daily. Per [facility] VITAMIN A ORAL Take 400 mg by mouth once daily. olopatadine hcl(PATANOL 0.1 % EYE DROPS) 1 to 2 drops to each eye twice daily as needed doxazosin (CARDURA) 2 mg tablet Take 1 tablet by mouth daily at bedtime. [facility] (Patient not taking: Reported on 01/02/2024) No current facility-administered medications for this visit. Objective BP 120/78 (BP Site: Left Arm, BP Position: Sitting, BP Cuff Size: Large Adult) Pulse 64 Temp 36.5 ?C (97.7 ?F) (Temporal) Resp 16 Wt 80.3 kg (177 lb) BMI 26.91 kg/m? Physical Exam Constitutional: Appearance: Normal appearance. Depression Screening PHQ-2 Score PRIMO-2 Total Score 02/25/2024 0 0 Depression screening tool completed and reviewed. Based on score and interview, patient is not at risk for depression. Screening tool discussed with patient, and I recommended no further intervention at this time. Latest Ref Rng 02/24/2024 Glucose 74 - 99 mg/dL 129 (H) BUN 7 - 21 mg/dL 31 (H) Creatinine 0.58 - 0.96 mg/dL 0.91 Sodium 136 - 144 mmol/L 136 Potassium 3.7 - 5.1 mmol/L 4.0 Chloride 98 - 107 mmol/L 103 CO2 22 - 30 mmol/L 21 (L) Anion Gap 8 - 15 mmol/L 12 Calcium 8.5 - 10.2 mg/dL 10.0 eGFR >=60 mL/min/1.73m? 66 Hemoglobin A1C 4.3 - 5.6 % 6.1 (H) Estimated Average Glucose mg/dL 128 Legend: (H) High (L) Low Assessment and Plan: 1. Controlled type 2 diabetes mellitus without complication, without long-term current use of insulin (HCC) - ICD9: 250.00, ICD10: E11.9 (primary diagnosis) - New diagnosis - Discussed diabetic education issues of diabetes complications and monitoring required, medication-specific side effects and monitoring. - Shared Medical Decision Making was done: Medication: Options include Jardiance, Ozempic, metformin. Benefits: Medication may help glucose in the short term and CV or renal risk in the snf. Risks: Possible side effects were discussed including , GI. Possible interactions: n/a. Warnings: discussed. Approved use or off label use: approved. Option as above. Cost: high Prior approval may be needed. We agreed to monitor only for now and she will focus on low carb diet. She declined self glucose monitoring. - CONSULT TO DIABETES EDUCATION DSME/MNT 2. Chronic renal impairment, stage 3a (HCC) - ICD9: 585.3, ICD10: N18.31 - eGFR: 66 Improving - US KIDNEY/BLADDER Time spent was 30 or more, all for discussion. Jae Belcher [facility]06-18-2024 History of Present illness Narrative* Jae Belcher MD - 02/25/2024 9:42 AM EDT This note was created using [employer]. Subjective Karla Cai is a 73 year old female. She felt well, and was mainly concerned with her lab results. 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 irbesartan (AVAPRO) 300 mg tablet Take 1 tablet by mouth once daily. pravastatin (PRAVACHOL) 20 mg tablet Take 1 tablet by mouth once daily. vit C/E/Zn/coppr/lutein/zeaxan (PRESERVISION AREDS-2 ORAL) Take 1 tablet by mouth two times a day. metoprolol succinate ER (TOPROL XL) 100 mg Take 1 tablet by mouth once daily. spironolactone (ALDACTONE) 50 mg tablet Take 1 tablet by mouth once daily. Per [facility] VITAMIN A ORAL Take 400 mg by mouth once daily. olopatadine hcl(PATANOL 0.1 % EYE DROPS) 1 to 2 drops to each eye twice daily as needed doxazosin (CARDURA) 2 mg tablet Take 1 tablet by mouth daily at bedtime. [facility]. (Patientnot taking: Reported on 01/02/2024) No current facility-administered medications for this visit. Objective BP 120/78 (BP Site: Left Arm, BP Position: Sitting, BP Cuff Size: Large Adult) Pulse 64 Temp 36.5 C (97.7 F) (Temporal) Resp 16 Wt 80.3 kg (177 lb) BMI 26.91 kg/m Physical Exam Constitutional: Appearance: Normal appearance. Depression Screening PHQ-2 Score PRIMO-2 Total Score 02/25/2024 0 0 Depression screening tool completed and reviewed. Based on score and interview, patient is not at risk for depression. Screening tool discussed with patient, and I recommended no further interventionat this time. Latest Ref Rng 02/24/2024 Glucose 74 - 99 mg/dL 129 (H) BUN 7 - 21 mg/dL 31 (H) Creatinine 0.58 - 0.96 mg/dL 0.91 Sodium 136 - 144 mmol/L 136 Potassium 3.7 - 5.1 mmol/L 4.0 Chloride 98 - 107 mmol/L 103 CO2 22 - 30 mmol/L 21 (L) Anion Gap 8 - 15 mmol/L 12 Calcium 8.5 - 10.2 mg/dL 10.0 eGFR >=60 mL/min/1.73m 66 Hemoglobin A1C 4.3 - 5.6 % 6.1 (H) Estimated Average Glucose mg/dL 128 Legend: (H) High (L) Low Assessment and Plan: 1. Controlled type 2 diabetes mellitus without complication, without long-term current use of insulin (HCC) - ICD9: 250.00, ICD10: E11.9 (primary diagnosis) - New diagnosis - Discussed diabetic education issues of diabetes complications and monitoring required, medication-specific side effects and monitoring. - Shared Medical Decision Making was done: Medication: Options include Jardiance, Ozempic, metformin. Benefits: Medication may help glucose in the short term and CV or renal risk in the terminal manager. Risks: Possible side effects were discussed including , GI. Possible interactions: n/a. Warnings: dis cussed. Approved use or off label use: approved. Option as above. Cost: high Prior approval may be needed. We agreed to monitor only for now and she will focus on low carb diet. She declined self glucose monitoring. - CONSULT TO DIABETES EDUCATION DSME/MNT 2. Chronic renal impairment, stage 3a (HCC) - ICD9: 585.3, ICD10: N18.31 - eGFR: 66 Improving - US KIDNEY/BLADDER Time spent was 30 or more, all for discussion. Jae Belcher MD documented in this encounterProm[facility]06-[facility]-2024 Telephone encounter Note * Telephone Encounter - Joanie Garcia - 02/17/2024 4:25 PM EDT Pt got notification on MyChart she is due for Mammmogram although it is not until July. Will need order placed. [facility] Work Phone: [phone]) 628-559806-10-2024 Miscellaneous Notes* Telephone Encounter - Joanie Garcia - 02/17/2024 4:25 PM EDT Pt got notification on MyChart she is due for Mammmogram although it is not until July. Will need order placed. documented in this encounterPromedica [facility] Hospital04-25-2024 Instructions* Patient Instructions* Amanda Fleming - 01/02/2024 2:14 PM EDT Continue with firm sole shoes, ie holm or hoka with carbon fiber inlay Could consider steroid injection Could consider surgery. documented in this encounterPromedica Memorial Hospital04-25-2024 NoteHNO ID: [id number] Author: AMANDA FLEMING, ? Service: ? Author Type: Physician Type: Progress Notes Filed: 01/02/2024 22:50 Note Text: Initial Podiatric Office Visit: Chief Complaint: This 73 year old female who presents with chief complaint:b/l great toe pain HPI Patient presents to clinic for evaluation of b/l feet. Her primary complaint is pain in both great toes. She has severe arthritis. Did take mobic for the pain but had to stop because it was affecting her kidneys. She states that since she had to stop the mobic, and now is having pain. Did report bumping her left 2nd toe against the closet yesterday and now has pain. 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 pravastatin (PRAVACHOL) 20 mg tablet Take 1 tablet by mouth once daily. vit C/E/Zn/coppr/lutein/zeaxan (PRESERVISION AREDS-2 ORAL) Take 1 tablet by mouth two times a day. metoprolol succinate ER (TOPROL XL) 100 mg Take 1 tablet by mouth once daily. spironolactone (ALDACTONE) 50 mg tablet Take 1 tablet by mouth once daily. Per [facility] VITAMIN A ORAL Take 400 mg by mouth once daily. olopatadine hcl(PATANOL 0.1 % EYE DROPS) 1 to 2 drops to each eye twice daily as needed doxazosin (CARDURA) 2 mg tablet Take 1 tablet by mouth daily at bedtime. [facility]. (Patient not taking: Reported on 01/02/2024) No current facility-administered medications for this visit. ALLERGIES Allergen Reactions Adhesive Rash Redness, swelling, blisters Meloxicam Myalgia Kidney damage House Dust Mite Cough Lisinopril Cough Norvasc [Amlodipine* Swelling pedal edema PAST SURGICAL HISTORY Procedure Laterality Date BIOPSY BREAST OPEN INCISIONAL 1986 Left Breast cyst BX BREAST PERC VACUUM/ROTN 03/07/2011 Right - DCIS COLONOSCOPY 2003 Per repeat in 10 yrs (1-2013) COLONOSCOPY FLX DX W/COLLJ SPEC WHEN PFRMD 08/08/2018 Colonoscopy, patient prefers prep with least amount of sodium DIAGNOSIS/HISTORY Left 12/15/1997 acoustic neuroma unilateral, 47 EXC BREAST LES PREOP PLMT RAD MARKER OPEN 1 LES 04/12/2011 RIght Needle Loc - Excisional EYE SURGERY HX 10/10/2013 right/left cararact surgery HEMORRHOIDECTOMY XTRNL 2/> COLUMN/GROUP 2000 PUNCTURE ASPIRATION CYST BREAST 1992 Right breast VAGINAL HYSTERECTOMY UTERUS 250 GM/< 10/10/2000 Hysterectomy, vaginal FAMILY HISTORY Problem Relation Age of Onset Cancer Mother small intestine Hypertension Mother Ischemic Heart Disease Father Prostate Cancer Father Hypertension Father Cervical Cancer Sister Thyroid Cancer Sister Breast Cancer Sister Thyroid Cancer Sister Diabetes Brother Hypertension Brother Leukemia Maternal Grandmother other (Uterine fibroids) Daughter Breast Cancer Daughter Breast Cancer Paternal Aunt Social History Tobacco Use Smoking status: Never Smokeless tobacco: Never Vaping Use Vaping Use: Never used Substance Use Topics Alcohol use: Yes Alcohol/week: 2.0 standard drinks of alcohol Types: 2 Glasses of wine per week Comment: 1-2/week Drug use: No REVIEW OF SYSTEMS GENERAL: Negative for Malaise, significant weight loss, fever RESPIRATORY: Negative for cough, wheezing and shortness of breath CARDIOVASCULAR: Negative for chest pain, leg swelling and palpitations GI: Negative for abdominal discomfort, blood in stools or black stools and change in bowel habits : Negative for dysuria, frequency and incontinence MUSCULOSKELETAL: Negative for joint pain or swelling, back pain, and muscle pain. SKIN: Negative for lesions, rash, and itching. HEMATOLOGY/LYMPHOLOGY Negative for prolonged bleeding, bruising easily, and swollen nodes. ENDOCRINE: Negative for cold or heat intolerance, polyuria, polydipsia and goiter. NEURO: negative Physic (more content not included)...[facility]04-25-2024 History of Present illness Narrative* Amanda Fleming - 01/02/2024 2:04 PM EDT Images from the original note were not included. Initial Podiatric Office Visit: Chief Complaint: This 73 year old female who presents with chief complaint:b/l great toe pain HPI Patient presents to clinic for evaluation of b/l feet. Her primary complaint is pain in both great toes. She has severe arthritis. Did take mobic for the pain but had to stop because it was affectingher kidneys. She states that since she had to stop the mobic, and now is having pain. Did report bumping her left 2nd toe against the closet yesterday and now has pain. 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 pravastatin (PRAVACHOL) 20 mg tablet Take 1 tablet by mouth once daily. vit C/E/Zn/coppr/lutein/zeaxan (PRESERVISION AREDS-2 ORAL) Take 1 tablet by mouth two times a day. metoprolol succinate ER (TOPROL XL) 100 mg Take 1 tablet by mouth once daily. spironolactone (ALDACTONE) 50 mg tablet Take 1 tablet by mouth once daily. Per [facility] VITAMIN A ORAL Take 400 mg by mouth once daily. olopatadine hcl(PATANOL 0.1 % EYE DROPS) 1 to 2 drops to each eye twice daily as needed doxazosin (CARDURA) 2 mg tablet Take 1 tablet by mouth daily at bedtime. [facility]. (Patientnot taking: Reported on 01/02/2024) No current facility-administered medications for this visit. ALLERGIES Allergen Reactions Adhesive Rash Redness, swelling, blisters Meloxicam Myalgia Kidney damage House Dust Mite Cough Lisinopril Cough Norvasc [Amlodipine* Swelling pedal edema PAST SURGICAL HISTORY Procedure Laterality Date BIOPSY [...] HYSTERECTOMY UTERUS 250 GM/< 10/10/2000 Hysterectomy, vaginal FAMILY HISTORY Problem Relation Age of Onset Cancer Mother small intestine Hypertension Mother Ischemic Heart Disease Father Prostate Cancer Father Hypertension Father Cervical Cancer Sister Thyroid Cancer Sister Breast Cancer Sister Thyroid Cancer Sister Diabetes Brother Hypertension Brother Leukemia Maternal Grandmother other (Uterine fibroids) Daughter Breast Cancer Daughter Breast Cancer Paternal Aunt Social History Tobacco Use Smoking status: Never Smokeless tobacco: Never Vaping Use Vaping Use: Never used Substance Use Topics Alcohol use: Yes Alcohol/week: 2.0 standard drinks of alcohol Types: 2 Glasses of wine per week Comment: 1-2/week Drug use: No REVIEW OF SYSTEMS GENERAL: Negative for Malaise, significant weight loss, fever RESPIRATORY: Negative for cough, wheezing and shortness of breath CARDIOVASCULAR: Negative for chest pain, leg swelling and palpitations GI: Negative for abdominal discomfort, blood in stools or black stools and change in bowel habits : Negative for dysuria, frequency and incontinence MUSCULOSKELETAL: Negative for joint pain or swelling, back pain, and muscle pain. SKIN: Negative for lesions, rash, and itching. HEMATOLOGY/LYMPHOLOGY Negative for prolonged bleeding, bruising easily, and swollen nodes. ENDOCRINE: Negative for cold or heat intolerance, polyuria, polydipsia and goiter. NEURO: negative Physical Exam: Constitutional: Pt is a well developed 73 year old female who is alert, oriented and cooperative Eyes: Following during examination. No redness or drainage. Respiratory: RR normal and nonlabored. Even breathing. No evidence of distress or shortness of breath. Psychology: Patient is engaged during conversation. Normal affect and mood. Does not appear depressed or anxious during encounter. Vascular: Dorsalis pedis and posterior tibial pulses palpable as b/l Capillary Fill time < 5 seconds to digits 1-5 b/l Skin temperature warm to warm proximal to distal b/l Hair growth present to digits Neurological: intact light touch/epicritic sensation b/l intact protective sensation no significant neurological deficits Dermatological: Nails 1-5 b/l appear normal. Webspaces clean and dry 1-4 b/l. Skin appears well hydrated and supple. good color, texture, turgor. No open lesions present. No callosities present. Bruising is noted toleft 2nd toe Musculoskeletal/Orthopaedic: Patient has pain to palpation of bl 1st mtpj. Foot type is neutral structurally AJ ROM is full with knee extended and flexed 1st MPJ is severely decreased when loaded and moderate pain or crepitus are noted with ROM. MTJ, STJ are full and free of pain and crepitus. 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 History and physical examination performed. 2. XR reviewed with patient and interpreted today 3. Discussed arthritis of b/l first mtpj. Discussed conservative treatment not limited to inserts, firm sole shoes, tylenol since her renal function was elevated with mobic, steroid injection vs first mtpj fusion. Patient not interested in surgery at this time. May consider use of tramadol but willreview with primary care provider first. 4. Discussed contusion of left 2nd toe. No fracture on xray. Continue with firm sole shoe until pain subsides. Amanda Fleming DPM Podiatry [address] [facility] [address] Dept: [phone] Dept * Zora Comer RN - 01/02/2024 1:36 PM EDT [facility] Pain Pain Level: 7 Pain Location: Other: See Comment (B/L toes) Description: Throbbing, Aching (twitching) Duration Amount of Time: 8 Duration Units: Weeks Frequency: Continuous Intervention/Comfort measure: Medication, Reposition, Relaxation (meloxicam, Advil) Patient presents with: Left Great Toe - New Patient, Pain Right Great Toe - New Patient, Pain Patient c/o pain in B/L hallux in the joint. Ongoing for years but was controlled with meloxicam. Patient recently had to stop the meloxicam because it was damaging her kidneys. Her PCP told her to refrain from not only meloxicam but all NSAIDS. Patient would like to discuss options. Patient also notes that she hit her L 2nd toe on her closet door and is now painful and black and blue. Patient concerned it may be fractured. documented in this encounterPromedica [facility] Hospital04-25-2024 NoteHNO ID: [id number] Author: ZORA COMER RN Service: ? Author Type: Registered Nurse Type: Progress Notes Filed: 01/02/2024 22:50 Note Text: [facility] Pain Pain Level: 7 Pain Location: Other: See Comment (B/L toes) Description: Throbbing, Aching (twitching) Duration Amount of Time: 8 Duration Units: Weeks Frequency: Continuous Intervention/Comfort measure: Medication, Reposition, Relaxation (meloxicam, Advil) Patient presents with: Left Great Toe - New Patient, Pain Right Great Toe - New Patient, Pain Patient c/o pain in B/L hallux in the joint. Ongoing for years but was controlled with meloxicam. Patient recently had to stop the meloxicam because it was damaging her kidneys. Her PCP told her to refrain from not only meloxicam but all NSAIDS. Patient would like to discuss options. Patient also notes that she hit her L 2nd toe on her closet door and is now painful and black and blue. Patient concerned it may be fractured.[facility]04-25-2024 History of Present illness Narrative* Kirby Arias RT(Jacob) - 01/02/2024 1:10 PM EDT Radiology Service Progress Note PATIENT NAME: Karla Cai DATE OF SERVICE: January 02, 2024 TIME: 1:11 PM PATIENT IDENTITY VERIFICATION COMPLETED USING TWO (2) IDENTIFIERS: Name and Date of confirmedby patient verbally. FALL SCREENING: Has the patient had 2 falls in the last year or 1 fall with injury or currently using an Ambulatory Assistive Device (Walker, Cane, Wheelchair, Crutches, etc.)? No PATIENT GENDER DATA: Female. status: : No status: NO. PATIENT RELEVANT IMPLANT DATA REVIEWED: Yes PATIENT PRESENTS WITH AN IMPLANTABLE OR ATTACHED MANUFACTURING LAB TECHNICIAN: No RADIOLOGY DEPARTMENT: General X-ray: Exam(s) Completed: Lower Extremity X- Ray(s): Foot, Bilateral and Wt. Bearing PERIPHERAL IV DATA: Not applicable SIGNED BY: LALIT Chua) January 02, 2024 1:11 PM documented in this encounterPromedica Memorial Hospital04-25-2024 NoteHNO ID: [id number] Author: KIRBY ARIAS RT(R) Service: Radiology Author Type: Technologist Type: Progress Notes Filed: 01/02/2024 13:23 Note Text: Radiology Service Progress Note PATIENT NAME: Karla Cai DATE OF SERVICE: January 02, 2024 TIME: 1:11 PM PATIENT IDENTITY VERIFICATION COMPLETED USING TWO (2) IDENTIFIERS: Name and Date of confirmed by patient verbally. FALL SCREENING: Has the patient had 2 falls in the last year or 1 fall with injury or currently using an Ambulatory Assistive Device (Walker, Cane, Wheelchair, Crutches, etc.)? No PATIENT GENDER DATA: Female. status: : No status: NO. PATIENT RELEVANT IMPLANT DATA REVIEWED: Yes PATIENT PRESENTS WITH AN IMPLANTABLE OR ATTACHED MANUFACTURING LAB TECHNICIAN: No RADIOLOGY DEPARTMENT: General X-ray: Exam(s) Completed: Lower Extremity X-Ray(s): Foot, Bilateral and Wt. Bearing PERIPHERAL IV DATA: Not applicable SIGNED BY: Kirby Arias RT(R) January 02, 2024 1:11 [facility]04-11-2024 Miscellaneous Notes* Telephone Encounter - Anne Dorsey RN - 12/19/2023 12:25 PM EDT Pt called and is notified of providers message and instructions. Pt voices understanding.She statesit's bilateral the big toe where she has bunions. She states she will get some OTC Tylenol. She sees Podiatry in 2 weeks and will see what they recommend. Anne Dorsey RN * Telephone Encounter - Jae Belcher MD - 12/19/2023 10:41 AM EDT Any anti inflammatory can potentially affect kidney function. Tylenol is okay to take. Off podiatryconsult if pain is primarily in the feet. * Telephone Encounter - Sonia Juares RN - 12/19/2023 8:51 AM EDT Patient calls to ask about anti-inflammatory medication. She reports that since stopping the meloxicam she is starting to have joint pain especially in her feet. She reports pain/cramping that is affecting her ability to walk. Patient is asking if there is another anti-inflammatory she can take since she can't have meloxicamand since her kidney function improved with blood wok 11/15/2023. Sonia Juares RN documented in this encounterPromedica Memorial Hospital04-02-2024 Instructions* Patient Instructions* Mendoza Puente RD - 12/10/2023 12:29 PM EDT Nutrition Intervention 12/10/2023: Modify type and amount of food consumed for meals and snacks: Recommendations for Blood Sugar Control: Eat every 3-4 hours throughout the day. A consistent eating pattern helps manage blood sugars more effectively. Spread carbohydrate intake evenly throughout the day. This can be done by utilizing the plate method (1/2 plate vegetables, 1/4 plate starch, 1/4 plate protein/meat, and a serving of fruit on the side if desired). Exercise can also help to improve blood sugar control. Follow the guidance provided by exercise physiology and your physician. Limit foods high in saturated fat (fat/skin on meat, fish, and poultry, dairy fats, butter, coconutoil), as these fats can make it harder for your body to use insulin properly, leading to higher blood sugar levels. Pairing a protein with a carbohydrate at meals and snacks will help slow down the spike of blood sugar by slowing down digestion. Refer to the Snack List and Protein Food List for ideas Losing 5-10% of your current body weight (8~16 lbs) can help to improve your body's ability to use insulin, which can improve blood sugar levels Dietary Recommendations to Improve Cholesterol Limit high saturated fat foods such as cheese, butter, high fat meats/dairy, red and processed meats. Limit high cholesterol foods such as egg yolks and shellfish. Replace animal fats with plant oils, avocado, nuts and seeds (be mindful of the serving size listedon the container due to calorie content). Choose plant-based protein such as soy and starchy beans,or low fat meats such as skinless poultry and fish. Add soluble fiber (10+g/day) to help reduce cholesterol - food sources include oats, barley, helder seeds, starchy beans such as black beans, most fruits, sweet potatoes, and cruciferous vegetables (broccoli/brussels sprouts). Limit refined grains, sugars/sweetened beverages, and alcohol which contribute to a high Triglyceride level. Replace with whole grains, fruits for dessert, and unsweetened beverages. documented in this encounterPromedica Memorial Hospital04-02-2024 NoteEducation (NUTRMM) TRELLKARLA Christie ([id number]) 1950 F Date Time Provider Department 12/10/23 11:00 AM MENDOZA PUENTE Reason for Visit: Nutrition Assessment [1591] Patient Education [91] Primary Visit Diagnosis:Impaired fasting glucose [R73.01] Order(s):CONSULT TO NUTRITION THERAPY [9020] Order #: [id number]: 4 During your visit today, we recorded the following information about you: Weight 80.7 kg Allergies As of Date: 12/10/2023 Noted Allergy Reaction ADHESIVE 11/06/2018 2 - Rash Comments: Redness, swelling, blisters HOUSE DUST MITE 08/26/2023 3 - Cough LISINOPRIL 03/09/2010 3 - Cough NORVASC (AMLODIPINE BESYLATE) 01/30/2010 7 - Swelling Comments: pedal edema Date Reviewed: 12/10/2023 Reviewed by: Mendoza Puente RD - Fully Assessed Prescriptions as of 12/10/2023 - irbesartan (AVAPRO) 300 mg tablet Take 1 tablet by mouth once daily. - pravastatin (PRAVACHOL) 20 mg tablet Take 1 tablet by mouth once daily. - vit C/E/Zn/coppr/lutein/zeaxan (PRESERVISION AREDS-2 ORAL) Take 1 tablet by mouth two times a day. - doxazosin (CARDURA) 2 mg tablet Take 1 tablet by mouth daily at bedtime. From [facility]. - metoprolol succinate ER (TOPROL XL) 100 mg Take 1 tablet by mouth once daily. - spironolactone (ALDACTONE) 50 mg tablet Take 1 tablet by mouth once daily. Per [facility] - VITAMIN A ORAL Take 400 mg by mouth once daily. - olopatadine hcl(PATANOL 0.1 % EYE DROPS) 1 to 2 drops to each eye twice daily as needed Disposition: Return if symptoms worsen or fail to improve. Follow-up and Disposition History for Encounter Date Provider Department Center 12/10/2023 [id number] PUENTE [facility] Encounter Status:Closed by MENDOZA PUENTE on 12/10/23[facility] 12-10-2023 NoteHNO ID: [id number] Author: MENDOZA PUENTE RD Service: ? Author Type: Registered Dietitian Type: Progress Notes Filed: 12/10/2023 12:29 Note Text: Nutrition Therapy Initial Assessment Nutrition Diagnosis: Overweight/obesity, related to, decreased energy needs, as evidenced by BMI above normative standard for age and gender. RECOMMENDED MALNUTRITION DIAGNOSIS: NO MALNUTRITION IDENTIFIED NUTRITION CARE PLAN Nutrition Intervention 12/10/2023: Modify type and amount of food consumed for meals and snacks: Recommendations for Blood Sugar Control: Eat every 3-4 hours throughout the day. A consistent eating pattern helps manage blood sugars more effectively. Spread carbohydrate intake evenly throughout the day. This can be done by utilizing the plate method (1/2 plate vegetables, 1/4 plate starch, 1/4 plate protein/meat, and a serving of fruit on the side if desired). Exercise can also help to improve blood sugar control. Follow the guidance provided by exercise physiology and your physician. Limit foods high in saturated fat (fat/skin on meat, fish, and poultry, dairy fats, butter, coconut oil), as these fats can make it harder for your body to use insulin properly, leading to higher blood sugar levels. Pairing a protein with a carbohydrate at meals and snacks will help slow down the spike of blood sugar by slowing down digestion. Refer to the Snack List and Protein Food List for ideas Losing 5-10% of your current body weight (8~16 lbs) can help to improve your body's ability to use insulin, which can improve blood sugar levels Dietary Recommendations to Improve Cholesterol Limit high saturated fat foods such as cheese, butter, high fat meats/dairy, red and processed meats. Limit high cholesterol foods such as egg yolks and shellfish. Replace animal fats with plant oils, avocado, nuts and seeds (be mindful of the serving size listed on the container due to calorie content). Choose plant-based protein such as soy and starchy beans, or low fat meats such as skinless poultry and fish. Add soluble fiber (10+g/day) to help reduce cholesterol - food sources include oats, barley, helder seeds, starchy beans such as black beans, most fruits, sweet potatoes, and cruciferous vegetables (broccoli/brussels sprouts). Limit refined grains, sugars/sweetened beverages, and alcohol which contribute to a high Triglyceride level. Replace with whole grains, fruits for dessert, and unsweetened beverages. Nutrition Monitoring AND Evaluation: PO, weight status, activity, adherence to the above recommendations. Need for Follow up: prn Patient presents for an initial nutrition consult. Ms Cia is a very pleasant 73 yo female referred for impaired fasting glucose. We discussed her current diet and talked about the timing of meals for blood sugar control as well as parings of carbs+ protein at a 1:1 ratio. We went over the protein food list, snack list and a few carb control menu plans to give her ideas. She is currently working out with cardio 3-4 days per week for 45~60 minutes each day. PMH reveals aorta aneurysm, HTN, mitral valve insufficiency, impaired fasting glucose, chronic kidney insufficiency, osteopenia, elevated LDL. Nutrition related lab values reveal: (11/15/23) creatinine 1.05 mg/dl ~ANL, fasting glucose 127 mg/dl ~ANL, eGFR 56 mL/min ~BNL, (08/29/23) LDL 102 mg/dl ~ANL, A1c 6.0% ~ANL Weight history reveals: Pt's current weight is 178 lbs, BMI 27.06 ~ANL but trending down. Diet recall reveals: Adequate Intake:dairy/calcium, fruit, nuts/seeds, fish/omega 3s Inadequate Intake:beans/legumes, vegetables, whole grains/fiber Restricting any foods none. 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 Resting Metabolic Rate: 1428 Malnutrition Screening Significant unintentional weight loss? No Eating less than 75% of usual intake for more than 2 weeks? No Potential Signs of Inflammation: no identifiable sources Education Materials Provided: Heart Healthy Eating for Lowering Cholesterol Levels , Healthy Lunch/Dinner Plate and Snack Ideas, High Protein Foods, and 1200 Adam (more content not included)...[facility]04-02-2024 History of Present illness Narrative* Mendoza Puente, RD - 12/10/2023 10:59 AM EDT Nutrition Therapy Initial Assessment Nutrition Diagnosis: Overweight/obesity, related to, decreased energy needs, as evidenced by BMI above normative standard for age and gender. RECOMMENDED MALNUTRITION DIAGNOSIS: NO MALNUTRITION IDENTIFIED NUTRITION CARE PLAN Nutrition Intervention 12/10/2023: Modify type and amount of food consumed for meals and snacks: Recommendations for Blood Sugar Control: Eat every 3-4 hours throughout the day. A consistent eating pattern helps manage blood sugars more effectively. Spread carbohydrate intake evenly throughout the day. This can be done by utilizing the plate method (1/2 plate vegetables, 1/4 plate starch, 1/4 plate protein/meat, and a serving of fruit on the side if desired). Exercise can also help to improve blood sugar control. Follow the guidance provided by exercise physiology and your physician. Limit foods high in saturated fat (fat/skin on meat, fish, and poultry, dairy fats, butter, coconutoil), as these fats can make it harder for your body to use insulin properly, leading to higher blood sugar levels. Pairing a protein with a carbohydrate at meals and snacks will help slow down the spike of blood sugar by slowing down digestion. Refer to the Snack List and Protein Food List for ideas Losing 5-10% of your current body weight (8~16 lbs) can help to improve your body's ability to use insulin, which can improve blood sugar levels Dietary Recommendations to Improve Cholesterol Limit high saturated fat foods such as cheese, butter, high fat meats/dairy, red and processed meats. Limit high cholesterol foods such as egg yolks and shellfish. Replace animal fats with plant oils, avocado, nuts and seeds (be mindful of the serving size listedon the container due to calorie content). Choose plant-based protein such as soy and starchy beans,or low fat meats such as skinless poultry and fish. Add soluble fiber (10+g/day) to help reduce cholesterol - food sources include oats, barley, helder seeds, starchy beans such as black beans, most fruits, sweet potatoes, and cruciferous vegetables (broccoli/brussels sprouts). Limit refined grains, sugars/sweetened beverages, and alcohol which contribute to a high Triglyceride level. Replace with whole grains, fruits for dessert, and unsweetened beverages. Nutrition Monitoring & Evaluation: PO, weight status, activity, adherence to the above recommendations. Need for Follow up: prn Patient presents for an initial nutrition consult. Ms Cai is a very pleasant 73 yo female referred for impaired fasting glucose. We discussed her current diet and talked about the timing of meals for blood sugar control as well as parings of carbs+ protein at a 1:1 ratio. We went over the proteinfood list, snack list and a few carb control menu plans to give her ideas. She is currently workingout with cardio 3-4 days per week for 45~60 minutes each day. PMH reveals aorta aneurysm, HTN, mitral valve insufficiency, impaired fasting glucose, chronic kidney insufficiency, osteopenia, elevatedLDL. Nutrition related lab values reveal: (11/15/23) creatinine 1.05 mg/dl ~ANL, fasting glucose 127 mg/dl~ANL, eGFR 56 mL/min ~BNL, (08/29/23) LDL 102 mg/dl ~ANL, A1c 6.0% ~ANL Weight history reveals: Pt's current weight is 178 lbs, BMI 27.06 ~ANL but trending down. Diet recall reveals: Adequate Intake:dairy/calcium, fruit, nuts/seeds, fish/omega 3s Inadequate Intake:beans/legumes, vegetables, whole grains/fiber Restricting any foods none. 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 Resting Metabolic Rate: 1428 Malnutrition Screening Significant unintentional weight loss? No Eating less than 75% of usual intake for more than 2 weeks? No Potential Signs of Inflammation: no identifiable sources Education Materials Provided: Heart Healthy Eating for Lowering Cholesterol Levels , Healthy Lunch/Dinner Plate and Snack Ideas, High Protein Foods, and 1200 Adam Carb-Controlled Sample Menus, 1500 Adam Carb-Controlled Sample Menus, and 1800 Adam Carb-Controlled Sample Menus READINESS TO LEARN Cognitive ability: Alert and oriented Motivation to learn: Interested Family support: Unable to assess - Family not present Instruction provided to: Patient Patient learns best by: Multiple Methods Factors affecting learning: None Physical limitations affecting learning: None Referred/Supervised by: Heena/Bailey SOSA Billing Type: Initial Assess/15 min 3 units SIGNATURE: Mendoza Puente RD PATIENT NAME: Karla Cai DATE: December 10, 2023 TIME: 10:59 AM documented in this encounterPromedica [facility] Hospital03-16-2024 Miscellaneous Notes* Telephone Encounter - Jae Belcher MD - 11/23/2023 10:44 AM EDT ASSESSMENT/PLAN: 1. Impaired fasting glucose - ICD9: 790.21, ICD10: R73.01 - CONSULT TO NUTRITION THERAPY - BASIC METABOLIC PNL - HGB A1C Jae Belcher MD * Telephone Encounter - Faiza Morgan LPN - 11/19/2023 9:12 AM EDT Karla is scheduled for 6 month follow-up 02/25/2024. Faiza Morgan LPN documented in this encounterPromedica Memorial Hospital03-04-2024 Miscellaneous Notes* Telephone Encounter - Faiza Morgan LPN - 11/11/2023 3:28 PM EST Patient has been identified by name and date of : Yes Patient phones for refill(s): Requested Prescriptions Pending Prescriptions Disp Refills irbesartan (AVAPRO) 300 mg tablet 90 tablet 3 Sig: Take 1 tablet by mouth once daily. Date of last office visit in primary care: 08/26/2023 Date of next office visit in primary care: 02/25/2024 Please advise. Thank you. Faiza Morgan LPN. documented in this encounterPromedica Memorial Hospital02-19-2024 Miscellaneous Notes* Telephone Encounter - Bernie Prather LPN - 10/28/2023 2:17 PM EST Pt. informed. * Telephone Encounter - Faiza Morgan LPN - 10/28/2023 12:16 PM EST Left message to call & speak to nurse. Faiza Morgan LPN * Telephone Encounter - Jae Belcher MD - 10/26/2023 4:07 PM EST Appointment or Express Care if not better or worse. Patient's request for medication is as follows Requested Prescriptions Signed Prescriptions Disp Refills nitrofurantoin monohydrate and macrocrystal (MACROBID) 100 mg capsule 6 capsule 0 Sig: Take 1 capsule by mouth two times a day with meals for 3 days. Authorizing Provider: JAE BELCHER Order entered - please phone pharmacy and notify patient. Jae Belcher MD * Telephone Encounter - Skyla Hodgson RN - 10/25/2023 11:41 AM EST Patient calls and reports that she is having urinary tract symptoms of frequency and burning. Patient state that she is also getting hot and cold. Patient asking if provider can send in a prescription for UTI to [facility]? Please review and advise, Skyla Hodgson RN documented in this encounterPromedica Memorial Hospital02-08-2024 Evaluation note* Diagnosis Chronic renal impairment, stage 3a (HCC)- Primary documented in this encounter [facility]11-14-20[facility] Miscellaneous Notes* Letter - Coordinator, Mammography - 07/23/2023 10:32 AM EST July 24, 2023 PID: [id number] Karla Cai [address] [place] [address] [place] [address] Dear Ms. Cai, We are pleased to inform you that the results of your recent breast imaging exam on 07/23/2023 are normal. Early detection of cancer is very important. We also understand recommendations regarding breast cancer screening are controversial. Please discuss with your primary care provider which strategy is best for you and whether a mammogram is right for you. Your imaging studies and report will be [facility] at [facility] as part of your permanent medical record and are available for your continuing care. Thank you for allowing us to help in meeting your health care needs. Sincerely, Dr. Newman Interpreting Radiologist [facility] (Normal over 40) documented in this encounterPromedica Memorial Hospital11-14-2023 History of Present illness Narrative* Anderson Champion Mammo Tech - 07/23/2023 9:10 AM EST Radiology Service Progress Note PATIENT NAME: Karla Cai DATE OF SERVICE: July 23, 2023 TIME: 8:57 AM PATIENT IDENTITY VERIFICATION COMPLETED USING TWO (2) IDENTIFIERS: Name and Date of confirmedby patient verbally. FALL SCREENING: Has the patient had 2 falls in the last year or 1 fall with injury or currently using an Ambulatory Assistive Device (Walker, Cane, Wheelchair, Crutches, etc.)? No PATIENT GENDER DATA: Female. status: : No status: NO. PATIENT RELEVANT IMPLANT DATA REVIEWED: Not Applicable RADIOLOGY DEPARTMENT: Mammography PERIPHERAL IV DATA: Not applicable SIGNED BY: Mary Mckeon July 23, 2023 8:57 AM documented in this encounterPromed[facility]09-[facility]-2023 Miscellaneous Notes* Telephone Encounter - Faiza Morgan LPN - 05/14/2023 3:54 PM EDT Patient has been identified by name and date of : Yes Patient phones for refill(s): Requested Prescriptions Pending Prescriptions Disp Refills metoprolol succinate ER (TOPROL XL) 100 mg 90 tablet 3 Sig: Take 1 tablet by mouth once daily. Date of last office visit in primary care: 08/22/2022 Physical: 08/26/2023 Last 2 Encounter Wt Readings: Date: Wt: 08/22/2022 87.1 kg (192 lb) 07/24/2022 85.7 kg (189 lb) Previous labs/tests for medication: Blood Pressure: BUN (mg/dL) Date Value 08/25/2021 24 Sodium (mmol/L) Date Value 08/25/2021 141 Last 1 Encounter BP Readings: Date: BP: 08/22/2022 124/86 Please advise. Thank you. Faiza Morgan LPN documented in this encounterPromedica [facility] Hospital08-21-2023 Miscellaneous Notes* Addendum Note - Savanna Do APRN.CNP - 04/29/2023 7:45 AM EDTAddended by: SAVANNA DO on: 04/29/2023 07:45 AM Modules accepted: Orders * Telephone Encounter - Faiza Morgan LPN - 04/25/2023 2:05 PM EDT Patient has been identified by name and date of : Yes, Patient phones for refill(s): Requested Prescriptions Pending Prescriptions Disp Refills meloxicam (MOBIC) 15 mg tablet 30 tablet 1 Sig: Take 1 tablet by mouth once daily. Date of last office visit in primary care: 08/22/2022 Physical: 08/26/2023 Last 2 Encounter Wt Readings: Date: Wt: 08/22/2022 87.1 kg (192 lb) 07/24/2022 85.7 kg (189 lb) Previous labs/tests for medication: Not applicable Please advise. Thank you. Faiza Morgan LPN documented in this encounterPromedica [facility] Hospital06-27-2023 Miscellaneous Notes* Telephone Encounter - Teodoro Roca Ma - 03/05/2023 2:39 PM EDT [place]: 08/22/2022 Last refill: 08/22/2022 QTY: 30 Refills: 1 documented in this encounterPromedica [facility] Hospital03-07-2023 Miscellaneous Notes* Telephone Encounter - Faiza Morgan LPN - 11/13/2022 12:14 PM EST Patient has been identified by name and date of : Yes Patient phones for refill(s): Requested Prescriptions Pending Prescriptions Disp Refills irbesartan (AVAPRO) 300 mg tablet 90 tablet 3 Sig: Take 1 tablet by mouth once daily. Date of last office visit in primary care: 08/22/2022 Physical: 08/26/2023 Last 2 Encounter Wt Readings: Date: Wt: 08/22/2022 87.1 kg (192 lb) 07/24/2022 85.7 kg (189 lb) Previous labs/tests for medication: Not applicable Please advise. Thank you. Faiza Morgan LPN documented in this encounterPromedica Memorial Hospital12-20-2022 History of Present illness Narrative* Rosalina Nolan LPN - 08/28/2022 1:56 PM EST Patient presents for COVID vaccine. Denies any problems at this time. Tolerated injection well. Rosalina Nolan LPN documented in this encounterPromedica Memorial Hospital12-14-2022 Instructions* Patient Instructions* Savanna Do APRN.TYRA - 08/22/2022 6:02 PM EST The following prevention plan is recommended: COVID-19 VACCINE(4 - Booster for Pfizer series) due on 09/20/2021 WHAT YOU CAN DO TO PREVENT FALLS [...] review all the medicines you take, even [id number] medicines. As you get older, the way medicines work in your body can change. Some medicines, or combinations of medicines, can make you sleepy or dizzy andcan cause you to fall. 3. Have your [...] apply if you have certain medical conditions. documented in this encounterPromedica Memorial Hospital12-14-2022 History of Present illness Narrative* Savanna Do APRN.CNP - 08/22/2022 6:01 PM EST Karla Cai is a 71 year old female here for a Medicare Subsequent Annual Wellness Visit Health Risk Assessment In general, health is: Very good Concerns with balance:Not at all Concerns with teeth or dentures:going to the dentist Concerns with sexual function:Not at all [place] anxious, stressed, angry, irritable, lonely, isolated, or had thoughts of hurting themself: Not at all Has little interest or pleasure in doing things: Not at all Bothered by feeling down, depressed, or hopeless: Not at all Needs help with grocery shopping, cooking, housework, bathing, grooming, dressing, eating, sitting or standing, walking, using the toilet, handling finances, taking medications, using the telephone, or driving: No Following safety precautions in the home environment and vehicle: removed throw rugs from floors, installed grab bars in the bathroom, handrails in stairwells, having adequate lighting, wearing seatbelt at all times?: Yes except no grab bars in the bathroom Smokes cigarettes, vapes, or chew tobacco: No Eats healthy foods including fruits, vegetables, whole grains, and fiber-rich foods: More than halfthe days Number of days per week engages in exercise: walks, elliptical, bike Average alcohol consumption: occasional Current Providers Specialists: I have reviewed specialist-related care of the patient in the medical record. Current care team: Patient Care Team: Jae Belcher MD as PCP - General (Internal Medicine) Dr. Fleming-podiatry Dr. Moon-general surgeon Outside specialists seen: [facility], [facility]-Dr. Leigh, Medical/Family history review Reviewed and updated problem list, medical/surgical/family/social history, medications, and allergies. Opioid use review Patient is not currently using opioids. Depression screening Depression Screening PHQ-2 Score 08/22/2022 0 Depression screening tool completed and reviewed. Based on score and interview, patient is not at risk for depression. Screening tool discussed with patient, and I recommended no further interventionat this time. Cognitive screening Mini Cog Score: Score: 5 Cognitive screening reviewed and no further action needed (score 3-5) Functional Observation Was the patient's timed Up & Go test unsteady or ? 12 seconds? No Advance Care Planning End of Life planning discussed, including patient's advanced directive wishes: Yes Measurements BP 124/86 Pulse 70 Temp (Src) 98.6 (Temporal) Resp 14 Ht 5' 8 (1.73m) Wt 192 lb (87.1kg) BMI 29.20 kg/(m^2). Visual acuity (required for Welcome to Medicare): follows with optometry/ophthalmology Hearing Evaluation: within normal limits ASSESSMENT/PLAN: 1. Medicare annual wellness visit, subsequent - ICD9: V70.0, ICD10: Z00.00 (primary diagnosis) The following prevention plan was discussed during the office visit and provided to the patient: - fall risk reduction - Counseled on healthy diet and regular exercise - Calcium intake with supplements or by diet of 1000 mg/day for under 50, 1200- 1500 mg/day for 50+ - Discussed need and benefit for weight loss. BMI 29.19 kg/(m^2) - Depression screening tool completed and reviewed with patient. Based on score and interview, patient is not at risk for depression and recommended no further intervention at this time. - follow-up for medicare annual exam in one year 2. Essential hypertension, benign - ICD9: 401.1, ICD10: I10 - good control - Continue current medication(s) - Recommended regular aerobic exercise. - Recommend home blood pressure monitoring, to bring results in on next visit - Goal of BP <130/80 - LIPID PANEL BASIC 3. Impaired fasting glucose - ICD9: 790.21, ICD10: R73.01 Recheck - HGB A1C Savanna Do APRN.CNP documented in this encounterPromedica [facility] Hospital11-30-2022 Miscellaneous Notes* Telephone Encounter - Faiza Morgan LPN - 08/08/2022 2:09 PM EST Patient has been identified by name and date of : Yes Patient phones for refill(s): Requested Prescriptions Pending Prescriptions Disp Refills irbesartan (AVAPRO) 300 mg tablet 90 tablet 0 Sig: Take 1 tablet by mouth once daily. Date of last office visit in primary care: 08/22/2021 Physical: 11/20/2022 Last 2 Encounter Wt Readings: Date: Wt: 07/24/2022 85.7 kg (189 lb) 08/22/2021 85.2 kg (187 lb 12.8 oz) Previous labs/tests for medication: Blood Pressure: BUN (mg/dL) Date Value 08/25/2021 24 Sodium (mmol/L) Date Value 08/25/2021 141 Last 1 Encounter BP Readings: Date: BP: 07/24/2022 118/67 Please advise. Thank you. Faiza Morgan LPN documented in this encounterPromedica Memorial Hospital11-15-2022 History of Present illness Narrative* Jennifer Luong APRN.CNP - 07/24/2022 8:37 AM EST Chief Complaint Patient presents with: Established Patient HPI: Karla Cai is a 71 year old female who presents here today for follow up DCIS. Per Dr. Juarez's previous note: H/o an area of suspicious appearing microcalcifications-right observed on a screening mammogram 03/01/11. There was increased tissue density noted in the upper outer quadrant for which additional views were requested. She had further imaging 02/24/11 which did not reveal any suspicious abnormalities in the upper outer quadrant. Was referred to Dr. Moon for further evaluation of microcalcifications. Stereotactic core needle biopsies were done 03/07/11. The pathologic review was significant for DCIS. Solid and comedo pattern. Intermediate to high nuclear grade. Necrosis was noted. ER--29%; HI 0% and HER2 3+. The patient subsequently underwent partial mastectomy on 04/12/11. The pathology revealed a 6 mm DCISwith solid and comedo pattern. High nuclear grade with necrosis and calcifications present. The closest margin was the inferior at 5 mm. Had been taking estrogen for postmenopausal symptoms. Stopped at time of initial consult here. Received two dose of Herceptin as part of NSABP B-43. 05/28/11 and 06/18/11. Completed radiation 07/11/11. Began tamoxifen after radiation. Seen by genetic counseling. She stopped taking tamoxifen in early January 2012. She restarted tamoxifen 04/09/12. S/p Right oncoplastic reduction and left breast reduction performed on 09/15/[address] Lopez. No new concerns today. Appetite:Too good. Energy level:It varies. Denies fevers or recent illness. Resp:denies cough or sob Cardiac:denies chest pain/palpitations GI:denies abd pain, n/v, moving bowels regularly :denies dysuria/hematuria Endo:hot flashes-daily Around 10 per day. Pt. chose to wean off of effexor. She also tried neurontin in the past and did not like the side effects. Extrem:denies pain to joints/back/bones Neuro:neuropathy to both feet-stable Skin:denies rashes/lesions Heme:denies bleeding The ROS is otherwise negative. Past medical history, appointments, medications, allergies reviewed. No changes. EXAM: BP 118/67 Pulse 75 Temp (!) 35.9 C (96.6 F) (Temporal) Wt 85.7 kg (189 lb) BMI 28.74 kg/m APPEARANCE Well appearing, alert, in no acute distress, well-hydrated, well nourished. HEART RRR with normal S1 and S2, no murmurs LUNG clear to auscultation BREAST FEMALE no mass/nodule b/l, surgical scars b/l LYMPH NODES No cervical lymphadenopathy, No supraclavicular lymphadenopathy, and No axillary lymphadenopathy. ABDOMEN bowel sounds normoactive, soft, non-tender, non-distended EXTREMITIES No edema NEURO Awake, alert and oriented x 3, Normal gait, and No involuntary motions. SKIN Skin color, texture, turgor normal, no suspicious rashes or lesions RADIOLOGY: Mammogram 07/23/22: IMPRESSION: NEGATIVE There is no mammographic evidence of malignancy. A 1 year screening mammogram is recommended. ASSESSMENT/PLAN: 1. 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 - No concerning findings on exam. - Completed tamoxifen spring 2016. - Weaned off of effexor February 2017. - Tried neurontin for hot flashes and did not like the side effects-stopped therapy. - Reviewed mammogram with pt. - Mammogram due in one year. - Follow up as needed. Pt. will follow up with [facility] for yearly CBE/mammogram. - Pt. aware to call office with any questions/concerns. The patient indicates understanding of these issues and agrees with the plan. All documentation from previous visit of 07/21/21-Dr. Juarez/myself was copied and pasted, documentation has been reviewed and edited as necessary for today's visit. Jennifer Luong APRN.TYRA documented in this encounterPromedica Memorial Hospital08-30-2022 Miscellaneous Notes* Telephone Encounter - Mendoza Nam LPN - 05/08/2022 2:23 PM EDT Patient phones requesting refills as follows: Requested Prescriptions Pending Prescriptions Disp Refills irbesartan (AVAPRO) 300 mg tablet 90 tablet 3 Sig: Take 1 tablet by mouth once daily. TRINIDAD 08/22/21 No upcoming appointment scheduled. Please review and advise. Mendoza Nam LPN documented in this encounterPromedica Memorial Hospital08-30-2022 Miscellaneous Notes* Telephone Encounter - Mendoza Nam LPN - 05/08/2022 2:12 PM EDT Patient phones requesting refills as follows: Requested Prescriptions Pending Prescriptions Disp Refills metoprolol succinate ER (TOPROL XL) 100 mg 90 tablet 3 Sig: Take 1 tablet by mouth once daily. TRNIIDAD 08/22/21 No upcoming office visit scheduled. Please review and advise. Mendoza Nam LPN documented in this encounterPromedica [facility] Hospital11-18-2019 History of Past illness Narrative* Problem Noted Date Diagnosed Date Resolved Date Diverticulosis 07/27/2019 08/26/2023 History of colonoscopy with polypectomy 07/28/2015 08/26/2023 Bunion of great toe of left foot 07/18/2013 07/27/2014 Symptomatic menopausal or fe male climacteric states 07/25/2011 08/26/2023 Eczematous dermatitis of eyelid 07/26/2009 08/22/2021 documented as of this encounter (statuses as of 10/17/2023) [facility] of Past illness Narrative* Problem Noted Date Diagnosed Date Resolved Date Diverticulosis 07/27/2019 08/26/2023 History of colonoscopy with polypectomy 07/28/2015 08/26/2023 Bunion of great toe of left foot 07/18/2013 07/27/2014 Symptomatic menopausal or fe male climacteric states 07/25/2011 08/26/2023 Eczematous dermatitis of eyelid 07/26/2009 08/22/2021 documented as of this encounter (statuses as of 10/28/2023) [facility] of Past illness Narrative* Problem Noted Date Diagnosed Date Resolved Date Diverticulosis 07/27/2019 08/26/2023 History of colonoscopy with polypectomy 07/28/2015 08/26/2023 Bunion of great toe of left foot 07/18/2013 07/27/2014 Symptomatic menopausal or fe male climacteric states 07/25/2011 08/26/2023 Eczematous dermatitis of eyelid 07/26/2009 08/22/2021 documented as of this encounter (statuses as of 11/12/2023) [facility] Narrative* Problem Noted Date Diagnosed Date Resolved Date Diverticulosis 07/27/2019 08/26/2023 History of colonoscopy with polypectomy 07/28/2015 08/26/2023 Bunion of great toe of left foot 07/18/2013 07/27/2014 Symptomatic menopausal or fe male climacteric states 07/25/2011 08/26/2023 Eczematous dermatitis of eyelid 07/26/2009 08/22/2021 documented as of this encounter (statuses as of 11/25/2023) [facility] Narrative* Problem Noted Date Diagnosed Date Resolved Date Diverticulosis 07/27/2019 08/26/2023 History of colonoscopy with polypectomy 07/28/2015 08/26/2023 Bunion of great toe of left foot 07/18/2013 07/27/2014 Symptomatic menopausal or fe male climacteric states 07/25/2011 08/26/2023 Eczematous dermatitis of eyelid 07/26/2009 08/22/2021 documented as of this encounter (statuses as of 12/10/2023) [facility] Narrative* Problem Noted Date Diagnosed Date Resolved Date Diverticulosis 07/27/2019 08/26/2023 History of colonoscopy with polypectomy 07/28/2015 08/26/2023 Bunion of great toe of left foot 07/18/2013 07/27/2014 Symptomatic menopausal or fe male climacteric states 07/25/2011 08/26/2023 Eczematous dermatitis of eyelid 07/26/2009 08/22/2021 documented as of this encounter (statuses as of 12/19/2023) [facility] Narrative* Problem Noted Date Resolved Date Bunion of great toe of left foot 07/18/2013 07/27/2014 Eczematous dermatitis of eyelid 07/26/2009 08/22/2021 documented as of this encounter (statuses as of 05/09/2022) [facility] Narrative* Problem Noted Date Resolved Date Bunion of great toe of left foot 07/18/2013 07/27/2014 Eczematous dermatitis of eyelid 07/26/2009 08/22/2021 documented as of this encounter (statuses as of 05/09/2022) [facility] Narrative* Problem Noted Date Resolved Date Bunion of great toe of left foot 07/18/2013 07/27/2014 Eczematous dermatitis of eyelid 07/26/2009 08/22/2021 documented as of this encounter (statuses as of 07/24/2022) [facility] Narrative* Problem Noted Date Resolved Date Bunion of great toe of left foot 07/18/2013 07/27/2014 Eczematous dermatitis of eyelid 07/26/2009 08/22/2021 documented as of this encounter (statuses as of 08/08/2022) [facility] Narrative* Problem Noted Date Resolved Date Bunion of great toe of left foot 07/18/2013 07/27/2014 Eczematous dermatitis of eyelid 07/26/2009 08/22/2021 documented as of this encounter (statuses as of 08/22/2022) [facility]arrative* Problem Noted Date Resolved Date Bunion of great toe of left foot 07/18/2013 07/27/2014 Eczematous dermatitis of eyelid 07/26/2009 08/22/2021 documented as of this encounter (statuses as of 08/28/2022) [facility]ative* Problem Noted Date Resolved Date Bunion of great toe of left foot 07/18/2013 07/27/2014 Eczematous dermatitis of eyelid 07/26/2009 08/22/2021 documented as of this encounter (statuses as of 11/13/2022) [facility]ative* Problem Noted Date Resolved Date Bunion of great toe of left foot 07/18/2013 07/27/2014 Eczematous dermatitis of eyelid 07/26/2009 08/22/2021 documented as of this encounter (statuses as of 03/06/2023) [facility]ative* Problem Noted Date Diagnosed Date Resolved Date Bunion of great toe of left foot 07/18/2013 07/27/2014 Eczematous dermatitis of eyelid 07/26/2009 08/22/2021 documented as of this encounter (statuses as of 04/29/2023) [facility]ative* Problem Noted Date Diagnosed Date Resolved Date Bunion of great toe of left foot 07/18/2013 07/27/2014 Eczematous dermatitis of eyelid 07/26/2009 08/22/2021 documented as of this encounter (statuses as of 05/15/2023) [facility]ative* Problem Noted Date Diagnosed Date Resolved Date Bunion of great toe of left foot 07/18/2013 07/27/2014 Eczematous dermatitis of eyelid 07/26/2009 08/22/2021 documented as of this encounter (statuses as of 07/24/2023) [facility] Narrative* Problem Noted Date Diagnosed Date Resolved Date Bunion of great toe of left foot 07/18/2013 07/27/2014 Eczematous dermatitis of eyelid 07/26/2009 08/22/2021 documented as of this encounter (statuses as of 07/26/2023) [facility] Diagnosis 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 documented [facility] this encounter [facility]* Diagnosis Onset Date Resolution Status Essential hypertension chron ic Thoracic aortic aneurysm without rupture [facility] Work Phone: Evaluation note* Diagnosis Medicare annual wellness visit, subsequent- Primary Routine general medical examination at a health care facility Essential hypertension, benign Impaired fasting glucose documented [facility] this encounter [facility]* Diagnosis Need for vaccination- Primary Need for prophylactic vaccination and inoculation against unspecified single disease [facility] encounter [facility]* Diagnosis Onset Date Resolution Status Mitral valve insufficiency a cute Essential hypertension chron ic Thoracic aortic aneurysm without rupture [facility] Work Phone: Evaluation note* Diagnosis Encounter for screening mammogram for malignant neoplasm of breast Other [facility] Dysuria- Primary [facility] Diagnosis Impaired fasting glucose- Primary [facility] Diagnosis Impaired fasting glucose- Primary [facility] Diagnosis Hallux rigidus of both feet- Primary Contusion of lesser toe of left foot without damage to nail, initial encounter [facility] Diagnosis Pain Generalized pain [facility]* Diagnosis Screening mammogram for breast cancer- Primary [facility]* Diagnosis Controlled type 2 diabetes mellitus without complication, without long-term current use of insulin (HCC)- Primary Chronic renal impairment, stage 3a (HCC) [facility] Diagnosis Prediabetes- Primary Other abnormal glucose [facility] Diagnosis Chronic renal impairment, stage 3a (HCC) [facility]* Diagnosis Essential hypertension, benign- Primary Impaired fasting glucose Overweight (BMI 25.0-29.9) Overweight Encounter for lipid screening for cardiovascular disease Screening for lipoid disorders Aortic heart murmur Aortic valve disorders Dilated aortic root (HCC) Thoracic aortic 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, unspecified laterality Urinary frequency- Primary [facility] Diagnosis Essential hypertension, benign- Primary Impaired fasting glucose Overweight (BMI 25.0-29.9) Overweight Encounter for lipid screening for cardiovascular disease Screening for lipoid disorders Aortic heart murmur Aortic valve disorders Dilated aortic root (HCC) Thoracic aortic 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, unspecified laterality Encounter for immunization- Primary Need for other specified prophylactic vaccination against single bacterial disease Burning with urination Dysuria Abrasion of right lower extremity, initial encounter Controlled type 2 diabetes mellitus without complication, without long-term current use of insulin (HCC) Aneurysm of ascending aorta without rupture (HCC) [facility] Diagnosis Ascending aorta dilation (CMS-HCC)- Primary Thoracic aneurysm without mention of rupture Nonrheumatic mitral valve regurgitation Nonrheumatic tricuspid valve regurgitation Nonrheumatic aortic valve insufficiency Aneurysm of the ascending aorta, without rupture (CMS-HCC) Ascending aorta dilation (CMS-HCC) Thoracic aneurysm without mention of rupture Nonrheumatic mitral valve regurgitation Nonrheumatic tricuspid valve regurgitation Nonrheumatic aortic valve insufficiency documented in this encounter [facility] Work Phone: Evaluation note* Diagnosis Aneurysm of the ascending aorta, without rupture (CMS-HCC) Aneurysm of ascending aorta without rupture (CMS-HCC)- Primary Aneurysm of ascending aorta without rupture (CMS-HCC) documented in this encounter [facility] Work Phone: Evaluation note* Diagnosis Essential hypertension, benign- Primary Impaired fasting glucose Overweight (BMI 25.0-29.9) Overweight Encounter for lipid screening for cardiovascular disease Screening for lipoid disorders Aortic heart murmur Aortic valve disorders Dilated aortic root (HCC) Thoracic aortic 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, unspecified laterality Screening mammogram for breast cancer [facility] Aneurysm of ascending aorta without rupture (CMS-HCC)- Primary Aneurysm of ascending aorta without rupture (CMS-HCC) Aneurysm of ascending aorta without rupture (CMS-HCC) documented in this encounter [facility] Work Phone: Evaluation note* Diagnosis Aneurysm of ascending aorta without rupture (CMS-HCC)- Primary Aneurysm of ascending aorta without rupture (CMS-HCC) Postprocedural hypotension History of aortic arch replacement S/P ascending aortic replacement Blood vessel replaced by other means Postoperative atrial fibrillation (Multi) Acute respiratory distress syndrome (ARDS) (Multi) documented in this encounter [facility] Work Phone: Evaluation note* Diagnosis Ascending aortic aneurysm, unspecified whether ruptured (CMS-HCC) documented in this encounter [facility] Work Phone: Evaluation note* Diagnosis Ascending aortic aneurysm, unspecified whether ruptured (CMS-HCC) documented in this encounter [facility] Work Phone: Evaluation note* Diagnosis Ascending aorta dilation (CMS-HCC) Thoracic aneurysm without mention of rupture Nonrheumatic mitral valve regurgitation Nonrheumatic tricuspid valve regurgitation Nonrheumatic aortic valve insufficiency Shortness of breath documented in this encounter [facility] Work Phone: Evaluation note* Diagnosis Ascending aorta dilation (CMS-HCC) Thoracic aneurysm without mention of rupture Nonrheumatic mitral valve regurgitation Nonrheumatic tricuspid valve regurgitation Nonrheumatic aortic valve insufficiency Ascending aorta dilation (CMS-HCC) Thoracic aneurysm without mention of rupture Nonrheumatic mitral valve regurgitation Nonrheumatic tricuspid valve regurgitation Nonrheumatic aortic valve insufficiency Ascending aorta dilation (CMS-HCC) Thoracic aneurysm without mention of rupture Nonrheumatic mitral valve regurgitation Nonrheumatic tricuspid valve regurgitation Nonrheumatic aortic valve insufficiency documented in this encounter [facility] Work Phone: Evaluation note* Diagnosis Essential hypertension, benign- Primary Impaired fasting glucose Overweight (BMI 25.0-29.9) Overweight Encounter for lipid screening for cardiovascular disease Screening for lipoid disorders Aortic heart murmur Aortic valve disorders Dilated aortic root (HCC) Thoracic aortic 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, unspecified laterality Bilateral lower extremity edema- Primary Edema Palpitations Dyspnea on exertion Other dyspnea and respiratory abnormality Positional lightheadedness Dizziness and giddiness Venous insufficiency Unspecified venous (peripheral) insufficiency Weakness Other malaise and fatigue Pleural effusion Unspecified pleural effusion S/P aortic aneurysm repair Other postprocedural status Blood loss anemia Iron deficiency anemia secondary to blood loss (chronic) [facility] Diagnosis Essential hypertension, benign- Primary Impaired fasting glucose Overweight (BMI 25.0-29.9) Overweight Encounter for lipid screening for cardiovascular disease Screening for lipoid disorders Aortic heart murmur Aortic valve disorders Dilated aortic root (HCC) Thoracic aortic 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, unspecified laterality Elevated LDL cholesterol level Pure hypercholesterolemia documented in this encounter [facility] note* Diagnosis Aneurysm of ascending aorta without rupture (CMS-HCC)- Primary Aneurysm of ascending aorta without rupture (CMS-HCC) Postprocedural hypotension History of aortic arch replacement S/P ascending aortic replacement Blood vessel replaced by other means Postoperative atrial fibrillation (Multi) Acute respiratory distress syndrome (ARDS) (Multi) Aneurysm of the ascending aorta, without rupture (CMS-HCC) documented in this encounter [facility] Work Phone: Evaluation note* Diagnosis Aneurysm of ascending aorta without rupture (CMS-HCC)- Primary Aneurysm of ascending aorta without rupture (CMS-HCC) Postprocedural hypotension History of aortic arch replacement S/P ascending aortic replacement Blood vessel replaced by other means Postoperative atrial fibrillation (Multi) Acute respiratory distress syndrome (ARDS) (Multi) S/P ascending aortic replacement Blood vessel replaced by other means documented in this encounter [facility] Work Phone: Evaluation note* Diagnosis Aneurysm of ascending aorta without rupture (CMS-HCC)- Primary Aneurysm of ascending aorta without rupture (CMS-HCC) Postprocedural hypotension History of aortic arch replacement S/P ascending aortic replacement Blood vessel replaced by other means Postoperative atrial fibrillation (Multi) Acute respiratory distress syndrome (ARDS) (Multi) Aneurysm of the ascending aorta, without rupture (CMS-HCC) documented in this encounter [facility] Work Phone: Evaluation note* Diagnosis Essential hypertension, benign- Primary Impaired fasting glucose Overweight (BMI 25.0-29.9) Overweight Encounter for lipid screening for cardiovascular disease Screening for lipoid disorders Aortic heart murmur Aortic valve disorders Dilated aortic root (HCC) Thoracic aortic 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, unspecified laterality Medicare annual wellness visit, subsequent- Primary Routine general medical examination at a health care facility Thrombocytosis Essential thrombocythemia Chronic renal impairment, stage 3a (HCC) Aneurysm of ascending aorta without rupture (HCC) Controlled type 2 diabetes mellitus without complication, without long-term current use of insulin (HCC) Essential hypertension, benign Hyperlipidemia, unspecified hyperlipidemia type documented in this encounter [facility] Discharge instructionsAmbulatory Orders* Podiatry Location: None Selected [facility] Work Phone: Reason for referral (narrative)* Diagnostic Procedure Only (Routine) - Pending Review Specialty Diagnoses / Procedures Referred By Ilene t Referred To Contact BR IMAGING Diagnoses Screening mammogram for breast cancer Procedures DAVID SCREENING W OSVALDO SCREENING DIGITAL BREAST TOMOSYNTHESIS BI SCREENING MAMMOGRAPHY BI 2-VIEW BREAST INC CAD Jae Belcher MD [address] [place] [address] [facility] [address] [place] [address] Referral ID Status Reason Start Date Expiration Date Visits Requested Visits Authorized [id number] Pending Review Auto-Generat ed Referral 07/10/2024 03/18/2025 1 1 [facility] for referral (narrative)* Consultation (Routine) - Authorized Specialty Diagnoses / Procedures Referred By Contact Referred To Contact Cardiothoracic Surgery / Cardiac Surgery Diagnoses Aneurysm of the ascending aorta, without rupture ([facility]-HCC) Anita Lim, MANAGER HOSPICE-SURGICAL ONCOLOGIST [address] [place] [address] [place] [address] [facility] Department [place] [address] Referral ID Status Reason Start Date Expiration Date Visits Requested Visits Authorized [id number] Authorized Specialty Services Required 06/09/2024 06/09/2025 1 1 [facility] Work Phone: [facility] Narrative* Diagnostic Procedure Only (Routine) - Closed Specialty Diagnoses / Procedures Referred By Ilene hernandez Referred To Contact BR IMAGING Diagnoses Encounter for screening mammogram for malignant neoplasm of breast Procedures DAVID SCREENING SCREENING MAMMOGRAPHY BI 2-VIEW BREAST INC CAD Savanna Do APRN.SURGICAL ONCOLOGIST [address] [place] [address] [facility] [address] [place] [address] Referral ID Status Reason Start Date Expiration Date V isits Requested Visits Authorized [id number] Closed Auto-Generate d Referral 05/06/2023 06/04/2024 1 1 [facility] for visit Narrative* Diagnostic Procedure Only (Routine) - Closed Specialty Diagnoses / Procedures Referred By Ilene hernandez Referred To Contact XR IMAGING Diagnoses Pain Procedures XR FOOT GENERAL 3V AP/LAT/OBL BILATERAL RADEX FOOT COMPLETE MINIMUM 3 VIEWS Amanda Fleming [address] [place] [address] [place] [address] Referral ID Status Reason Start Date Expiration Date V isits Requested Visits Authorized [id number] Closed Auto-Generate d Referral 12/12/2023 01/10/2025 1 1 [facility] for visit Narrative* Diagnostic Procedure Only (Routine) - Closed Specialty Diagnoses / Procedures Referred By Ilene t Referred To Contact US IMAGING Diagnoses Chronic renal impairment, stage 3a (HCC) Procedures US KIDNEY/BLADDER US RETROPERITONEAL REAL TIME W/IMAGE COMPLETE Jae Belcher MD [address] [place] [address] Us Imaging [place] [address] Referral ID Status Reason Start Date Expiration Date V isits Requested Visits Authorized [id number] Closed Auto-Generate d Referral 02/25/2024 03/26/2025 1 1 [facility] for visit Narrative* Auth/Cert Specialty Diagnoses / Procedures Referred By Ilene hernandez Referred To Contact Diagnoses Ascending aorta dilation (CMS-HCC) Nonrheumatic mitral valve regurgitation Nonrheumatic tricuspid valve regurgitation Nonrheumatic aortic valve insufficiency Ascending aorta dilation (CMS-HCC) [I77.810] Nonrheumatic mitral valve regurgitation [I34.0] Nonrheumatic tricuspid valve regurgitation [I36.1] Nonrheumatic aortic valve insufficiency [I35.1] Procedures HI CATH PLMT L HRT & ARTS W/NJX & ANGIO IMG S&I Left Heart Cath with Coronary Angiography and LV [facility] Service Area [id number] [place] [phone] [facility] [address] [place] [address] Referral ID Status Reason Start Date Expiration Date Visits Re quested Visits Authorized [id number] 1 1 [facility] Work Phone: Reason for visit Narrative* Diagnostic Procedure Only (Routine) - Closed Specialty Diagnoses / Procedures Referred By Ilene t Referred To Contact BR IMAGING Diagnoses Screening mammogram for breast cancer Procedures DAVID SCREENING W OSVALDO SCREENING DIGITAL BREAST TOMOSYNTHESIS BI SCREENING MAMMOGRAPHY BI 2-VIEW BREAST INC CAD Jae Belcher MD [address] [place] [address] [facility] [address] [place] [address] Referral ID Status Reason Start Date Expiration Date V isits Requested Visits Authorized [id number] Closed Auto-Generate d Referral 07/10/2024 03/18/2025 1 1 [facility] for visit Narrative* Imaging (Routine) - Authorized Specialty Diagnoses / Procedures Referred By Ilene t Referred To Contact Radiology Diagnoses Aneurysm of ascending aorta without rupture (CMS-HCC) Procedures XR chest 2 [place] [address] [address] [place] [address] Phone: tel: fax: Referral ID Status Reason Start Date Expiration Date Visits Requested Visits Authorized [id number] Authorized Perform Procedure 06/11/2024 06/11/2025 1 1 [facility] Work Phone: [facility] for visit Narrative* Auth/Cert Specialty Diagnoses / Procedures Referred By Ilene t Referred To Contact Diagnoses Aneurysm of ascending aorta without rupture (CMS-HCC) Aneurysm of ascending aorta without rupture (CMS-HCC) [I71.21] Procedures HI -AORT GRF W/CARD BYP F/AORTIC DS OTH/THN DSJ Ascending Aorta Replacement; Left Atrial [place] [address] [address] [place] [address] Phone: tel: fax: Formerly named [facility] [place] [address] [place] [phone] fax: Referral ID Status Reason Start Date Expiration Date Visits Re quested Visits Authorized [id number] 1 1 [facility] Work Phone: Recsbn for visit Narrative* Auth/Cert Specialty Diagnoses / Procedures Referred By Ilene t Referred To Contact Diagnoses Aneurysm of ascending aorta without rupture (CMS-HCC) Aneurysm of ascending aorta without rupture (CMS-HCC) [I71.21] Procedures HI -AORT GRF W/CARD BYP F/AORTIC DS OTH/THN DSJ Ascending Aorta Replacement; Left [place]rial [place] [address] [address] [place] [address] Phone: tel: fax: Formerly named [facility] [place] [address] [place] [phone] fax: Referral ID Status Reason Start Date Expiration Date Visits Re quested Visits Authorized [id number] 1 1 [facility] Work Phone: Reason for visit Narrative* Imaging (Routine) - Authorized Specialty Diagnoses / Procedures Referred By Contac t Referred To Contact Radiology Diagnoses Aneurysm of the ascending aorta, without rupture (CMS-HCC) Procedures CT angio chest w [place] [address] [address] Department of Surgery-[place] [id number] Phone: tel: fax: Referral ID Status Reason Start Date Expiration Date Visits Requested Visits Authorized [id number] Authorized Perform Procedure 4 08/25/2025 1 1 [facility] Work Phone: Reason for visit Narrative* Imaging (Routine) - Authorized Specialty Diagnoses / Procedures Referred By Ilene hernandez Referred To Contact Radiology Diagnoses Aneurysm of the ascending aorta, without rupture (CMS-HCC) Procedures XR chest 2 [place] [address] [address] [facility] [place] [address] Phone: tel: fax: Referral ID Status Reason Start Date Expiration Date Visits Requested Visits Authorized [id number] Authorized Perform Procedure 09/16/2024 09/16/2025 1 1 [facility] Work Phone: Summary Purpose Family History No Family History Records Found Relationship Condition Age at Onset Recorded Date/T kerry mother Hypertension Unknown Malignant neoplasm of colon Unknown father Cardiac disease Unknown Malignant neoplasm Unknown Hypertension Unknown brother Diabetes mellitus Unknown sister Malignant neoplasm Unknown Relationship Condition Age at Onset Recorded Date/T kerry Not Specified Hypokalemia Unknown mother Hypertension Unknown Malignant neoplasm of colon Unknown father Cardiac disease Unknown Malignant neoplasm Unknown Hypertension Unknown brother Diabetes mellitus Unknown sister Malignant neoplasm Unknown Relationship Condition Age at Onset Recorded Date/T kerry Not Specified Hypokalemia Unknown mother Hypertension Unknown Malignant neoplasm of colon Unknown father Cardiac disease Unknown Malignant neoplasm Unknown Hypertension Unknown brother Diabetes mellitus Unknown sister Malignant neoplasm Unknown Retinal hole Unknown Malignant neoplasm of breast Unknown Advance Directives No Advanced Directives Records Found Advance Directive Response Recorded Date/ Time Advance Directives No October 10:23am Living Will Yes February 05, 2019 1 :33pm Power of Client Success Manager No February 05, 2019 1:33pm Advance Directive Response Recorded Date/ Time Advance Directives No October 11:23am Living Will Yes February 05, 2019 2 :33pm Power of Client Success Manager No February 05, 2019 2:33pm Date Activated Date Inactivated Comments 06/09/2024 9:40 AM Question Answer Comments Plan of Care: Code Status Discussion Not Compl eted Decision Maker: Provider Rationale: Patient condition does not warra nt discussion Date Activated Date Inactivated Comments 06/09/2024 9:40 AM Question Answer Comments Plan of Care: Code Status Discussion Not Compl eted Decision Maker: Provider Rationale: Patient condition does not warra nt discussion Date Activated Date Inactivated Comments 08/10/2024 7:01 AM Question Answer Comments Plan of Care: Code Status Discussion Completed Decision Maker: Patient Date Activated Date Inactivated Comments 06/09/2024 9:40 AM 08/10/2024 7:01 AM Question Answer Comments Plan of Care: Code Status Discussion Not Compl eted Decision Maker: Provider Rationale: Patient condition does not warra nt discussion Date Activated Date Inactivated Comments 08/10/2024 7:01 AM Question Answer Comments Plan of Care: Code Status Discussion Completed Decision Maker: Patient Date Activated Date Inactivated Comments 06/09/2024 9:40 AM 08/10/2024 7:01 AM Question Answer Comments Plan of Care: Code Status Discussion Not Compl eted Decision Maker: Provider Rationale: Patient condition does not warra nt discussion Advance Directive Response Recorded Date/ Time Living Will Yes February 05, 2019 2 :33pm Power of Client Success Manager No February 05, 2019 2:33pm Advance Directives on File No u [email or web address] 3:04pm Living Will Yes November 02 3:19pm Power of Client Success Manager Yes November 02, 2024 3:19pm Advance Directives No October 11:23am Advance Directive Response Recorded Date/ Time Living Will Yes February 05, 2019 2 :33pm Do you have a Healthcare Power of Client Success Manager? No February 05, 2019 2:33pm Advance Directives on File No Dl 2024 3:04pm Living Will Yes November 02 025 3:19pm Do you have a Healthcare Power of Client Success Manager? Yes November 02, 2024 3:19pm Advance Directives No October 11:23am Advance Directive Response Recorded Date/ Time Advance Directives on File No layo 2024 3:04pm Living Will Yes November 02 025 3:19pm Do you have a Healthcare Power of Client Success Manager? Yes November 02, 2024 3:19pm Advance Directives No October 11:23am Chief Complaint and Reason for Visit Chief Complaint 9 M FU E ORDER TAA F/U SCREENING Reason for Visit Essential hypertensi on Thoracic aortic aneurysm without rupture Chief Complaint 3 M FU INT LABS Reason for Visit Mitral valve insuffi ciency Essential hypertension Thoracic aortic aneurysm without rupture Chief Complaint TAA 9 M FU MURMUR BP Check per MMM / New Medication Reason for Visit Mitral valve insuffi ciency Essential hypertension Thoracic aortic aneurysm without rupture Chief Complaint Admit Date S/P [facility] 08/22September 03, 2024 12:47pm EORDER September 03, 2024 1:40pm Pleural effusion, not elsewhere classifi ed September 07, 2024 7:46am Pleural effusion, not elsewhere classifi ed September 07, 2024 8:20am Pleural effusion, not elsewhere classifi ed September 08, 2024 11:04am Pleural effusion, not elsewhere classifi ed September 08, 2024 11:57am INT LABS September 11, 2024 10 :34am E-ORDER September 15, 2024 10 :45am 6 m fu September 16, 2024 10 :19am E-ORDER September 16, 2024 11 :13am BIALT PLEURAL EFFUSIONS September 22 8:00am BIALT PLEURAL EFFUSIONS September 22 8:40am BIALT PLEURAL EFFUSIONS September 23 11:40am BIALT PLEURAL EFFUSIONS September 23 12:59pm 1 M FU OK PER MMM October 29, 2024 10:24am Heart valve replacement November 02, 2 025 1:50pm Heart valve replacement November 11, 2024 11:15am R1IGHT PLEURAL EFFUSION November 12, 2024 11:53am R1IGHT PLEURAL EFFUSION November 12, 2024 12:54pm PLEURAL EFFUSION November 16, 2024 7:5 8am Reason for Visit Admit Date Mitral valve insufficiency August 12:47pm Pleural effusion September 03, 2024 12:47pm Postoperative atrial fibrillation Decemb er 2023 12:47pm Essential hypertension September 03 12:47pm Thoracic aortic aneurysm without rupture September 03, 2024 12:47pm Bilateral pleural effusion August 7:46am Bilateral pleural effusion August 11:04am Bilateral pleural effusion September 16, 2024 10:19am Mitral valve insufficiency September 16, 2024 10:19am Postoperative atrial fibrillation Januar y 2024 10:19am Essential hypertension September 16, 2024 10:19am Thoracic aortic aneurysm without rupture September 16, 2024 10:19am Bilateral pleural effusion September 22, 2024 8:00am Bilateral pleural effusion September 23, 2024 11:40am Bilateral pleural effusion October 10:24am Mitral valve insufficiency October 10:24am Postoperative atrial fibrillation Februa 2024 10:24am Essential hypertension October 29 10:24am Thoracic aortic aneurysm without rupture October 29, 2024 10:24am Bilateral pleural effusion November 12 11:53am Chief Complaint Admit Date S/P [facility] 08/22September 03, 2024 12:47pm EORDER September 03, 2024 1:40pm Pleural effusion, not elsewhere classifi ed September 07, 2024 7:46am Pleural effusion, not elsewhere classifi ed September 07, 2024 8:20am Pleural effusion, not elsewhere classifi ed September 08, 2024 11:04am Pleural effusion, not elsewhere classifi ed September 08, 2024 11:57am INT LABS September 11, 2024 10 :34am E-ORDER September 15, 2024 10 :45am 6 m fu September 16, 2024 10 :19am E-ORDER September 16, 2024 11 :13am BIALT PLEURAL EFFUSIONS September 22 8:00am BIALT PLEURAL EFFUSIONS September 22 8:40am BIALT PLEURAL EFFUSIONS September 23 11:40am BIALT PLEURAL EFFUSIONS September 23 12:59pm 1 M FU OK PER MMM October 29, 2024 10:24am Heart valve replacement November 02, 025 1:50pm Heart valve replacement November 11, 2024 11:15am R1IGHT PLEURAL EFFUSION November 12, 2024 11:53am R1IGHT PLEURAL EFFUSION November 12, 2024 12:54pm PLEURAL EFFUSION November 16, 2024 7:5 8am 2 M FU PER MMM December 22, 2024 9:2 3am Reason for Visit Admit Date Mitral valve insufficiency August 12:47pm Pleural effusion September 03, 2024 12:47pm Postoperative atrial fibrillation Decemb er 2023 12:47pm Essential hypertension September 03 12:47pm Thoracic aortic aneurysm without rupture September 03, 2024 12:47pm Bilateral pleural effusion August 7:46am Bilateral pleural effusion August 11:04am Bilateral pleural effusion September 16, 2024 10:19am Mitral valve insufficiency September 16, 2024 10:19am Postoperative atrial fibrillation Sepua2024 10:19am Essential hypertension September 16, 2024 10:19am Thoracic aortic aneurysm without rupture September 16, 2024 10:19am Bilateral pleural effusion September 22, 2024 8:00am Bilateral pleural effusion September 23, 2024 11:40am Bilateral pleural effusion October 10:24am Mitral valve insufficiency October 10:24am Postoperative atrial fibrillation Februa 2024 10:24am Essential hypertension October 29 10:24am Thoracic aortic aneurysm without rupture October 29, 2024 10:24am Bilateral pleural effusion November 12 11:53am Bilateral pleural effusion December 22, 025 9:23am Mitral valve insufficiency December 22, 2 025 9:23am Postoperative atrial fibrillation December 22, 2024 9:23am Essential hypertension December 22, 2024 9:23am Thoracic aortic aneurysm without rupture December 22, 2024 9:23am Chief Complaint Admit Date 1 M FU OK PER MMM October 29, 2024 10:24am Heart valve replacement November 02, 2 025 1:50pm Heart valve replacement November 11, 2024 11:15am R1IGHT PLEURAL EFFUSION November 12, 2024 11:53am R1IGHT PLEURAL EFFUSION November 12, 2024 12:54pm PLEURAL EFFUSION November 16, 2024 7:5 8am 2 M FU PER MMM December 22, 2024 9:2 3am A FIB, PE December 31, 2024 6:2 5am E ORDER January 05, 2025 9:0 5am DWD January 14, 2025 8:47am BRICK OFF BEARER EST CARE-[facility] PATIENT January 18, 2025 1 :45pm Reason for Visit Admit Date Bilateral pleural effusion October 10:24am Mitral valve insufficiency October 10:24am Postoperative atrial fibrillation Februa 2024 10:24am Essential hypertension October 29 10:24am Thoracic aortic aneurysm without rupture October 29, 2024 10:24am Bilateral pleural effusion November 12 11:53am Bilateral pleural effusion December 22, 2 025 9:23am Mitral valve insufficiency December 22 2 025 9:23am Postoperative atrial fibrillation December 22, 2024 9:23am Essential hypertension December 22, 2024 9:23am Thoracic aortic aneurysm without rupture December 22, 2024 9:23am Bilateral pleural effusion January 18 1:45pm Postoperative atrial fibrillation January 182024 1:45pm Prediabetes January 18, 2025 1:45p m Essential hypertension January 18, 2025 1: 45pm Screening for depression January 18, 2025 1:45pm History of malignant neoplasm of breast January 18, 2025 1:45pm Immunization due January 18, 2025 1:45p m Establishing care with new doctorjigna for January 18, 2025 1:45pm Pain in both feet January 18, 2025 1:45p m Numbness and tingling of both feet January 072024 1:45pm Reason for Referral Specialty Diagnoses / Procedures Referred By Ilene t Referred To Contact Nutrition Diagnoses Impaired fasting glucose Procedures CONSULT TO NUTRITION THERAPY MEDICAL NUTRITION ASSMT&IVNTJ INDIV EACH 15 MO Jae Belcher MD [address] [place] [address] Referral ID Status Reason Start Date Expiration Date Visits Requested Visits Authorized [id number] Authorized PCP Requested Referral 11/23/2023 11/22/2024 1 4 Specialty Diagnoses / Procedures Referred By Contac t Referred To Contact Diagnoses Controlled type 2 diabetes mellitus without complication, without long-term current use of insulin (HCC) Procedures CONSULT TO DIABETES EDUCATION DSME/MNT MEDICAL NUTRITION ASSMT&IVNTJ INDIV EACH 15 MO MEDICAL NUTRITION ASSMT&IVNTJ INDIV EACH 15 MO MEDICAL NUTRITION ASSMT&IVNTJ INDIV EACH 15 MO MEDICAL NUTRITION ASSMT&IVNTJ INDIV EACH 15 MO Jae Belcher MD [address] [place] [id number] Referral ID Status Reason Start Date Expiration Date Visits Requested Visits Authorized [id number] Authorized PCP Requested Referral 02/25/2024 02/24/2025 1 1 Specialty Diagnoses / Procedures Referred By Contac t Referred To Contact US IMAGING Diagnoses Chronic renal impairment, stage 3a (HCC) Procedures US KIDNEY/BLADDER US RETROPERITONEAL REAL TIME W/IMAGE COMPLETE Jae Belcher MD [address] [place] [address] [facility] [place] [address] Referral ID Status Reason Start Date Expiration Date Visits Requested Visits Authorized [id number] Authorized Auto-Generat ed Referral 02/25/2024 03/26/2025 1 1 Specialty Diagnoses / Procedures Referred By Contac t Referred To Contact Cardiology Diagnoses Ascending aortic aneurysm, unspecified whether ruptured (CMS-HCC) Procedures Echocardiogram Non Bill [place] [address] [address] Department [place] [address] Referral ID Status Reason Start Date Expiration Date Visits Requested Visits Authorized [id number] Pending Review Perform Procedure 05/22/2024 05/22/2025 1 1 Specialty Diagnoses / Procedures Referred By Contac t Referred To Contact Cardiology Diagnoses Ascending aorta dilation (CMS-HCC) Nonrheumatic mitral valve regurgitation Nonrheumatic tricuspid valve regurgitation Nonrheumatic aortic valve insufficiency Procedures Transthoracic Echo (TTE) Complete HI ECHO TTHRC R-T 2D W/WOM-MODE COMPL SPEC&[place] [address] [address] [place] [address] Referral ID Status Reason Start Date Expiration Date Visits Requested Visits Authorized [id number] Pending Review Perform Procedure 05/27/2024 05/27/2025 1 1 Referral ID Status Reason Start Date Expiration Date Visits Requested Visits Authorized [id number] Authorized Perform Procedure 05/27/2024 05/27/2025 1 1 Additional Source Comments INFORMATION SOURCE (unrecogn ized section and content) DATE CREATED AUTHOR 09/04/2018 [facility] DATE CREATED AUTHOR AUTHOR'S ORGANIZ ATION 12/10/2020 [facility] DATE CREATED AUTHOR AUTHOR'S ORGANIZ ATION 08/24/2024 [facility] DATE CREATED AUTHOR AUTHOR'S ORGANIZ ATION 08/29/2024 [facility] DATE CREATED AUTHOR AUTHOR'S ORGANIZ ATION 10/12/2024 [facility] DATE CREATED AUTHOR AUTHOR'S ORGANIZ ATION 10/30/2024 [facility] DATE CREATED AUTHOR AUTHOR'S ORGANIZ ATION 04/18/2025 [facility] Source Comments (unrecognize d section and content) In the event this informatio n is protected by the Federal Confidentiality of Alcohol and Drug Abuse Patient Records regulations: The Federal rules restrict any use of the information to criminally investigate or prosecute any alcohol or drug abuse patient.[facility] Hospital[facility] the event this information is protected by the Federal Confidentiality of Alcohol and Drug Abuse Patient Records regulations: The Federal rules restrict any use of the information to criminally investigate or prosecute any alcohol or drug abuse patient.[facility] HospitalIn the event this information is protected by the Federal Confidentiality of Alcohol and Drug Abuse Patient Records regulations: The Federal rules restrict any use of the information to criminally investigate or prosecute any alcohol or drug abuse patient.[facility] HospitalIn the event this information is protected by the Federal Confidentiality of Alcohol and Drug Abuse Patient Records regulations: The Federal rules restrict any use of the information to criminally investigate or prosecute any alcohol or drug abuse patient.[facility] HospitalIn the event this information is protected by the Federal Confidentiality of Alcohol and Drug Abuse Patient Records regulations: The Federal rules restrict any use of the information to criminally investigate or prosecute any alcohol or drug abuse patient.[facility] HospitalIn the event this information is protected by the Federal Confidentiality of Alcohol and Drug Abuse Patient Records regulations: The Federal rules restrict any use of the information to criminally investigate or prosecute any alcohol or drug abuse patient.[facility] HospitalIn the event this information is protected by the Federal Confidentiality of Alcohol and Drug Abuse Patient Records regulations: The Federal rules restrict any use of the information to criminally investigate or prosecute any alcohol or drug abuse patient.[facility] HospitalIn the event this information is protected by the Federal Confidentiality of Alcohol and Drug Abuse Patient Records regulations: The Federal rules restrict any use of the information to criminally investigate or prosecute any alcohol or drug abuse patient.[facility] HospitalIn the event this information is protected by the Federal Confidentiality of Alcohol and Drug Abuse Patient Records regulations: The Federal rules restrict any use of the information to criminally investigate or prosecute any alcohol or drug abuse patient.[facility] HospitalIn the event this information is protected by the Federal Confidentiality of Alcohol and Drug Abuse Patient Records regulations: The Federal rules restrict any use of the information to criminally investigate or prosecute any alcohol or drug abuse patient.[facility] HospitalIn the event this information is protected by the Federal Confidentiality of Alcohol and Drug Abuse Patient Records regulations: The Federal rules restrict any use of the information to criminally investigate or prosecute any alcohol or drug abuse patient.[facility] HospitalIn the event this information is protected by the Federal Confidentiality of Alcohol and Drug Abuse Patient Records regulations: The Federal rules restrict any use of the information to criminally investigate or prosecute any alcohol or drug abuse patient.[facility] HospitalIn the event this information is protected by the Federal Confidentiality of Alcohol and Drug Abuse Patient Records regulations: The Federal rules restrict any use of the information to criminally investigate or prosecute any alcohol or drug abuse patient.[facility] HospitalIn the event this information is protected by the Federal Confidentiality of Alcohol and Drug Abuse Patient Records regulations: The Federal rules restrict any use of the information to criminally investigate or prosecute any alcohol or drug abuse patient.[facility] HospitalIn the event this information is protected by the Federal Confidentiality of Alcohol and Drug Abuse Patient Records regulations: The Federal rules restrict any use of the information to criminally investigate or prosecute any alcohol or drug abuse patient.[facility] HospitalIn the event this information is protected by the Federal Confidentiality of Alcohol and Drug Abuse Patient Records regulations: The Federal rules restrict any use of the information to criminally investigate or prosecute any alcohol or drug abuse patient.[facility] HospitalIn the event this information is protected by the Federal Confidentiality of Alcohol and Drug Abuse Patient Records regulations: The Federal rules restrict any use of the information to criminally investigate or prosecute any alcohol or drug abuse patient.[facility] HospitalIn the event this information is protected by the Federal Confidentiality of Alcohol and Drug Abuse Patient Records regulations: The Federal rules restrict any use of the information to criminally investigate or prosecute any alcohol or drug abuse patient.[facility] HospitalIn the event this information is protected by the Federal Confidentiality of Alcohol and Drug Abuse Patient Records regulations: The Federal rules restrict any use of the information to criminally investigate or prosecute any alcohol or drug abuse patient.[facility] HospitalIn the event this information is protected by the Federal Confidentiality of Alcohol and Drug Abuse Patient Records regulations: The Federal rules restrict any use of the information to criminally investigate or prosecute any alcohol or drug abuse patient.[facility] HospitalIn the event this information is protected by the Federal Confidentiality of Alcohol and Drug Abuse Patient Records regulations: The Federal rules restrict any use of the information to criminally investigate or prosecute any alcohol or drug abuse patient.[facility] HospitalIn the event this information is protected by the Federal Confidentiality of Alcohol and Drug Abuse Patient Records regulations: The Federal rules restrict any use of the information to criminally investigate or prosecute any alcohol or drug abuse patient.[facility] HospitalIn the event this information is protected by the Federal Confidentiality of Alcohol and Drug Abuse Patient Records regulations: The Federal rules restrict any use of the information to criminally investigate or prosecute any alcohol or drug abuse patient.[facility] HospitalIn the event this information is protected by the Federal Confidentiality of Alcohol and Drug Abuse Patient Records regulations: The Federal rules restrict any use of the information to criminally investigate or prosecute any alcohol or drug abuse patient.[facility] HospitalIn the event this information is protected by the Federal Confidentiality of Alcohol and Drug Abuse Patient Records regulations: The Federal rules restrict any use of the information to criminally investigate or prosecute any alcohol or drug abuse patient.[facility] HospitalIn the event this information is protected by the Federal Confidentiality of Alcohol and Drug Abuse Patient Records regulations: The Federal rules restrict any use of the information to criminally investigate or prosecute any alcohol or drug abuse patient.[facility] HospitalIn the event this information is protected by the Federal Confidentiality of Alcohol and Drug Abuse Patient Records regulations: The Federal rules restrict any use of the information to criminally investigate or prosecute any alcohol or drug abuse patient.[facility] HospitalIn the event this information is protected by the Federal Confidentiality of Alcohol and Drug Abuse Patient Records regulations: The Federal rules restrict any use of the information to criminally investigate or prosecute any alcohol or drug abuse patient.[facility] HospitalIn the event this information is protected by the Federal Confidentiality of Alcohol and Drug Abuse Patient Records regulations: The Federal rules restrict any use of the information to criminally investigate or prosecute any alcohol or drug abuse patient.[facility] HospitalIn the event this information is protected by the Federal Confidentiality of Alcohol and Drug Abuse Patient Records regulations: The Federal rules restrict any use of the information to criminally investigate or prosecute any alcohol or drug abuse patient.[facility] HospitalIn the event this information is protected by the Federal Confidentiality of Alcohol and Drug Abuse Patient Records regulations: The Federal rules restrict any use of the information to criminally investigate or prosecute any alcohol or drug abuse patient.[facility] HospitalIn the event this information is protected by the Federal Confidentiality of Alcohol and Drug Abuse Patient Records regulations: The Federal rules restrict any use of the information to criminally investigate or prosecute any alcohol or drug abuse patient.[facility] HospitalIn the event this information is protected by the Federal Confidentiality of Alcohol and Drug Abuse Patient Records regulations: The Federal rules restrict any use of the information to criminally investigate or prosecute any alcohol or drug abuse patient.[facility] HospitalIn the event this information is protected by the Federal Confidentiality of Alcohol and Drug Abuse Patient Records regulations: The Federal rules restrict any use of the information to criminally investigate or prosecute any alcohol or drug abuse patient.[facility] HospitalIn the event this information is protected by the Federal Confidentiality of Alcohol and Drug Abuse Patient Records regulations: The Federal rules restrict any use of the information to criminally investigate or prosecute any alcohol or drug abuse patient.[facility] Reason for Visit (unrecogniz ed section and content) Reason Onset Date Comments Refill Request 05/08/2022 Reason Comments Established Patient Reason Onset Date Comments Refill Request 08/08/2022 Reason Comments Medicare Wellness Exam Reason Comments Imm/Inj Reason Onset Date Comments Refill Request 11/13/2022 Reason Onset Date Comments Refill Request 03/05/2023 Reason Onset Date Comments Refill Request 04/25/2023 Refill Request 04/29/2023 Reason Onset Date Comments Refill Request 05/13/2023 Reason Comments Patient Update Reason Onset Date Comments Refill Request 11/11/2023 Reason Comments Nutrition Assessment Patient Education Specialty Diagnoses / Procedures Referred By Ilene t Referred To Contact Nutrition Diagnoses Impaired fasting glucose Procedures CONSULT TO NUTRITION THERAPY MEDICAL NUTRITION ASSMT&IVNTJ INDIV EACH 15 MO Jae Belcher MD [address] [place] [address] Referral ID Status Reason Start Date Expiration Date Visits Requested Visits Authorized [id number] Authorized PCP Requested Referral 11/23/2023 11/22/2024 1 4 Reason Comments Patient Question Reason Comments New Patient Pain Reason Comments Orders Reason Comments F/U 6 months Specialty Diagnoses / Procedures Referred By Ilene t Referred To Contact Diagnoses Controlled type 2 diabetes mellitus without complication, without long-term current use of insulin (HCC) Procedures CONSULT TO DIABETES EDUCATION DSME/MNT MEDICAL NUTRITION ASSMT&IVNTJ INDIV EACH 15 MO MEDICAL NUTRITION ASSMT&IVNTJ INDIV EACH 15 MO MEDICAL NUTRITION ASSMT&IVNTJ INDIV EACH 15 MO MEDICAL NUTRITION ASSMT&IVNTJ INDIV EACH 15 MO Jae Belcher MD [address] [place] [address] Referral ID Status Reason Start Date Expiration Date V isits Requested Visits Authorized [id number] Closed PCP Requested Referral 02/25/2024 02/24/2025 1 1 Reason Comments Results Reason Onset Date Comments Refill Request 05/08/2024 Reason Comments Urinary Frequency burning with urinati on x 2 days Reason Comments F/U 3 Month Reason Comments Follow-up Specialty Diagnoses / Procedures Referred By Contact Referred To Contact Cardiothoracic Surgery / Cardiac Surgery Diagnoses Aneurysm of the ascending aorta, without rupture ([facility]) Anita Lim, MANAGER HOSPICE-SURGICAL ONCOLOGIST [address] [place] [address] Phone: tel: [place]: [place] [address] [address] Department [place] [address] Phone: tel: fax: Referral ID Status Reason Start Date Expiration Date Visits Requested Visits Authorized [id number] Authorized Specialty Services Required 06/09/2024 06/09/2025 1 1 Specialty Diagnoses / Procedures Referred By Contac t Referred To Contact Cardiology Diagnoses Ascending aortic aneurysm, unspecified whether ruptured (CMS-HCC) Procedures Echocardiogram Non Bill [place] [address] [address] [facility] [place] [id number] Referral ID Status Reason Start Date Expiration Date Visits Requested Visits Authorized [id number] Pending Review Perform Procedure 05/22/2024 05/22/2025 1 1 Reason Comments Consult Specialty Diagnoses / Procedures Referred By Contac t Referred To Contact Cardiology Diagnoses Ascending aorta dilation (CMS-HCC) Nonrheumatic mitral valve regurgitation Nonrheumatic tricuspid valve regurgitation Nonrheumatic aortic valve insufficiency Procedures Transthoracic Echo (TTE) Complete HI ECHO TTHRC R-T 2D W/WOM-MODE COMPL SPEC&[place] [address] [address] [facility] [place] [id number] Referral ID Status Reason Start Date Expiration Date Visits Requested Visits Authorized [id number] Authorized Perform Procedure 05/27/2024 05/27/2025 1 1 Reason Comments Hospital F/U [facility] in [place] Galloway.Has been having some dizziness off and on. Reason Onset Date Comments Refill Request 09/13/2024 Reason Comments Post-op Visit Care Teams (unrecognized sec tion and content) Horse Trader Relationship Specialty Start Date End Date Jae Belcher MD [address] [place], [place] [address] PCP - General Internal Medicine 08/22/21 Horse Trader Relationship Specialty Start Date End Date Jae Belcher MD [address] [place], [place] [address] PCP - General Internal Medicine 08/22/21 Horse Trader Relationship Specialty Start Date End Date Jae Belcher MD [address] [place] [address] PCP - General Internal Medicine 08/22/21 Horse Trader Relationship Specialty Start Date End Date Jae Belcher MD [address] [place] [address] PCP - General Internal Medicine 08/22/21 Horse Trader Relationship Specialty Start Date End Date Jae Belcher MD [address] [place] [address] PCP - General Internal Medicine 08/22/21 Team Status: Active Member Role Status Dates Dr. Pantera Thomas III, MD Family Provider Active Dr. Jae Belcher MD Primary Care Provider Active Team Status: Inactive Member Role Status Dates Dr. Jae Belcher MD Primary Care Provider, Refer ring Provider Active Mendoza JULIEN PA Attending Provider Active Team Status: Inactive Member Role Status Dates Dr. Jae Belcher MD Primary Care Provider Active Mendoza JULIEN PA Attending Provider, Referr ing Provider Active Horse Trader Relationship Specialty Start Date End Date Jae Belcher MD [address] [place] [address] PCP - General Internal Medicine 08/22/21 Horse Trader Relationship Specialty Start Date End Date Jae Belcher MD [address] [place] [address] PCP - General Internal Medicine 08/22/21 Horse Trader Relationship Specialty Start Date End Date Jae Belcher MD [address] [place] [address] PCP - General Internal Medicine 08/22/21 Horse Trader Relationship Specialty Start Date End Date Jae Belcher MD [address] [place] [address] PCP - General Internal Medicine 08/22/21 Horse Trader Relationship Specialty Start Date End Date Jae Belcher MD [address] [facility] [address] PCP - General Internal Medicine 08/22/21 Horse Trader Relationship Specialty Start Date End Date Jae Belcher MD [address] [facility] [address] PCP - General Internal Medicine 08/22/21 Horse Trader Relationship Specialty Start Date End Date Jae Belcher MD [address] [facility] [place] [address] PCP - General Internal Medicine 08/22/21 Horse Trader Relationship Specialty Start Date End Date Jae Belcher MD [address] [place] [address] PCP - General Internal Medicine 08/22/21 Horse Trader Relationship Specialty Start Date End Date Jae Belcher MD [address] [place] [address] PCP - General Internal Medicine 08/22/21 Horse Trader Relationship Specialty Start Date End Date Jae Belcher MD [address] [facility] [address] PCP - General Internal Medicine 08/22/21 Horse Trader Relationship Specialty Start Date End Date Jae Belcher MD [address] [facility] [address] PCP - General Internal Medicine 08/22/21 Horse Trader Relationship Specialty Start Date End Date Jae Belcher MD [address] [facility] [address] PCP - General Internal Medicine 08/22/21 Horse Trader Relationship Specialty Start Date End Date Jae Belcher MD [address] [place] [address] PCP - General Internal Medicine 08/22/21 Horse Trader Relationship Specialty Start Date End Date Jae Belcher MD [address] [place] [address] PCP - General Internal Medicine 08/22/21 Horse Trader Relationship Specialty Start Date End Date Jae Belcher MD [address] [place] [address] PCP - General Internal Medicine 08/22/21 Horse Trader Relationship Specialty Start Date End Date Jae Belcher MD [address] [place] [address] PCP - General Internal Medicine 08/22/21 Horse Trader Relationship Specialty Start Date End Date Jae Belcher MD [address] [place] [address] PCP - General Internal Medicine 08/22/21 Horse Trader Relationship Specialty Start Date End Date Jae Belcher MD [address] [place] [address] PCP - General Internal Medicine 08/22/21 Horse Trader Relationship Specialty Start Date End Date Jae Belcher MD [address] [place] [address] PCP - General Internal Medicine 05/27/24 [place] [address] [address] [place] [address] Surgeon Cardiothoracic Surgery 06/09/24 Horse Trader Relationship Specialty Start Date End Date Jae Belcher MD [address] [place] [address] PCP - General Internal Medicine 05/27/24 [place] [address] [place] [address] Surgeon Cardiothoracic Surgery 06/09/24 Horse Trader Relationship Specialty Start Date End Date Jae Belcher MD [address] [place] [address] PCP - General Internal Medicine 08/22/21 Horse Trader Relationship Specialty Start Date End Date Jae Belcher MD [address] [place] [address] PCP - General Internal Medicine 05/27/24 [place] [address] [address] [facility] [place] [address] Surgeon Cardiothoracic Surgery 06/09/24 Horse Trader Relationship Specialty Start Date End Date Jae Belcher MD [address] [place] [address] PCP - General Internal Medicine 05/27/24 [place] [address] [place] [address] Surgeon Cardiothoracic Surgery 06/09/24 Horse Trader Relationship Specialty Start Date End Date Jae Belcher MD [address] [facility] [place] [address] PCP - General Internal Medicine 05/27/24 [place] [address] [facility] Department [place] [address] Surgeon Cardiothoracic Surgery 06/09/24 Horse Trader Relationship Specialty Start Date End Date Jae Belcher MD [address] [place] [address] PCP - General Internal Medicine 05/27/24 Horse Trader Relationship Specialty Start Date End Date Jae Belcher MD [address] [facility] [address] PCP - General Internal Medicine 05/27/24 Horse Trader Relationship Specialty Start Date End Date Jae Belcher MD [address] [place] [address] PCP - General Internal Medicine 08/22/21 Savanna Kothari, MANAGER HOSPICE.SURGICAL ONCOLOGIST [address] [facility] [place] [address] Electrical Engineering Professor Internal Medicine 08/17/24 Horse Trader Relationship Specialty Start Date End Date Jae Belcher MD [address] [facility] [place] [address] PCP - General Internal Medicine 08/22/21 Savanna Kothari, MANAGER HOSPICE.SURGICAL ONCOLOGIST [address] [facility] [address] Electrical Engineering Professor Internal Medicine 08/17/24 Horse Trader Relationship Specialty Start Date End Date Jae Belcher MD [address] [place] [address] PCP - General Internal Medicine 05/27/24 [place] [address] [facility] [place] [address] Surgeon Cardiothoracic Surgery 06/09/24 Horse Trader Relationship Specialty Start Date End Date Jae Belcher MD [address] [place] [address] PCP - General Internal Medicine 05/27/24 [place] [id number] [facility] [place] [address] Surgeon Cardiothoracic Surgery 06/09/24 Horse Trader Relationship Specialty Start Date End Date Jae Belcher MD [address] [place] [address] PCP - General Internal Medicine 08/22/21 Savanna Kothari, MANAGER HOSPICE.SURGICAL ONCOLOGIST [address] [place] [address] Electrical Engineering Professor Internal Medicine 08/17/24 Horse Trader Relationship Specialty Start Date End Date Jae Belcher MD [address] [place] [address] PCP - General Internal Medicine 08/22/21 Savanna Kothari MANAGER HOSPICE.SURGICAL ONCOLOGIST [address] [place] [address] Electrical Engineering Professor Internal Medicine 08/17/24 Team Status: Active Member Role Status Dates Dr. Jae Belcher MD Primary Care Provider Active Team Status: Inactive Member Role Status Dates Dr. Jae Belcher MD Primary Care Provider Active Start: September 03, 2024 End: September 03, 2024 Dr. Jae Belcher MD Referring Provider Active Start: September 03, 2024 End: September 03, 2024 Mendoza Boogie PA, PA Attending Provider Active Start: September 03, 2024 End: September 03, 2024 Team Status: Inactive Member Role Status Dates Dr. Jae Belcher MD Primary Care Provider Active Start: September 03, 2024 End: September 03, 2024 Mendoza Boogie PA, PA Attending Provider Active Start: September 03, 2024 End: September 03, 2024 Mendoza Boogie PA, PA Referring Provider Active Start: September 03, 2024 End: September 03, 2024 Team Status: Inactive Member Role Status Dates Dr. Jae Belcher MD Primary Care Provider Active Start: September 07, 2024 End: September 07, 2024 Mendoza Boogie PA, PA Attending Provider Active Start: September 07, 2024 End: September 07, 2024 Mendoza Boogie PA, PA Referring Provider Active Start: September 07, 2024 End: September 07, 2024 Team Status: Active Member Role Status Dates Dr. Jae Belcher MD Primary Care Provider Active Start: September 07, 2024 Mendoza Boogie PA, PA Referring Provider Active Start: September 07, 2024 Mendoza Boogie PA, PA Other Provider Active Start: September 07, 2024 Christina Chapman BRICK OFF BEARER, BRICK OFF BEARER-C Attending Provider Active Start: September 07, 2024 Team Status: Inactive Member Role Status Dates Dr. Jae Belcher MD Primary Care Provider Active Start: September 08, 2024 End: September 08, 2024 Mendoza Boogie PA, PA Attending Provider Active Start: September 08, 2024 End: September 08, 2024 Mendoza Boogie PA, PA Referring Provider Active Start: September 08, 2024 End: September 08, 2024 Team Status: Active Member Role Status Dates Dr. Jae Belcher MD Primary Care Provider Active Start: September 08, 2024 Mendoza Boogie PA, PA Referring Provider Active Start: September 08, 2024 Mendoza Boogie PA, PA Other Provider Active Start: September 08, 2024 Christina Chapman BRICK OFF BEARER, BRICK OFF BEARER-C Attending Provider Active Start: September 08, 2024 Team Status: Inactive Member Role Status Dates Dr. Jae Belcher MD Primary Care Provider Active Start: September 11, 2024 End: September 11, 2024 Mendoza Boogie PA, PA Attending Provider Active Start: September 11, 2024 End: September 11, 2024 Mendoza Boogie PA, PA Referring Provider Active Start: September 11, 2024 End: September 11, 2024 Team Status: Inactive Member Role Status Dates Dr. Jae Belcher MD Primary Care Provider Active Start: September 15, 2024 End: September 15, 2024 Mendoza Boogie PA, PA Attending Provider Active Start: September 15, 2024 End: September 15, 2024 Mendoza Boogie PA, PA Referring Provider Active Start: September 15, 2024 End: September 15, 2024 Team Status: Inactive Member Role Status Dates Dr. aJe Belcher MD Primary Care Provider Active Start: September 16, 2024 End: September 16, 2024 Dr. Jae Belcher MD Referring Provider Active Start: September 16, 2024 End: September 16, 2024 Mendoza Boogie PA, PA Attending Provider Active Start: September 16, 2024 End: September 16, 2024 Team Status: Inactive Member Role Status Dates Dr. Jae Belcher MD Primary Care Provider Active Start: September 16, 2024 End: September 16, 2024 Mendoza Boogie PA, PA Attending Provider Active Start: September 16, 2024 End: September 16, 2024 Mendoza Boogie PA, PA Referring Provider Active Start: September 16, 2024 End: September 16, 2024 Team Status: Inactive Member Role Status Dates Dr. Jae Belcher MD Primary Care Provider Active Start: September 22, 2024 End: September 22, 2024 Mendoza Boogie PA, PA Attending Provider Active Start: September 22, 2024 End: September 22, 2024 Mendoza Boogie PA, PA Referring Provider Active Start: September 22, 2024 End: September 22, 2024 Team Status: Active Member Role Status Dates Dr. Jae Belcher MD Primary Care Provider Active Start: September 22, 2024 Mendoza Boogie PA, PA Referring Provider Active Start: September 22, 2024 Mendoza Boogie PA, PA Other Provider Active Start: September 22, 2024 Christina Chapman BRICK OFF BEARER, BRICK OFF BEARER-C Attending Provider Active Start: September 22, 2024 Team Status: Inactive Member Role Status Dates Dr. Jae Belcher MD Primary Care Provider Active Start: September 23, 2024 End: September 23, 2024 Mendoza Boogie PA, PA Attending Provider Active Start: September 23, 2024 End: September 23, 2024 Mendoza Boogie PA, PA Referring Provider Active Start: September 23, 2024 End: September 23, 2024 Team Status: Active Member Role Status Dates Dr. Jae Belcher MD Primary Care Provider Active Start: September 23, 2024 Mendoza Boogie PA, PA Referring Provider Active Start: September 23, 2024 Mendoza Boogie PA, PA Other Provider Active Start: September 23, 2024 Christina Chapman BRICK OFF BEARER, BRICK OFF BEARER-C Attending Provider Active Start: September 23, 2024 Team Status: Inactive Member Role Status Dates Dr. Jae Belcher MD Primary Care Provider Active Start: October 29, 2024 End: October 29, 2024 Dr. Jae Belcher MD Referring Provider Active Start: October 29, 2024 End: October 29, 2024 Mendoza Boogie PA, PA Attending Provider Active Start: October 29, 2024 End: October 29, 2024 Team Status: Inactive Member Role Status Dates Dr. Jae Belcher MD Primary Care Provider Active Start: November 02, 2024 End: November 02, 2024 Dr. Tulio Keenan MD Attending Provider Active S tart: November 02, 2024 End: November 02, 2024 Dr. Tulio Keenan MD Referring Provider Active S tart: November 02, 2024 End: November 02, 2024 Team Status: Active Member Role Status Dates Dr. Jae Belcher MD Primary Care Provider Active Start: November 09, 2024 Mendoza Boogie PA, PA Attending Provider Active Start: November 09, 2024 Mendoza Boogie PA, PA Referring Provider Active Start: November 09, 2024 Team Status: Active Member Role Status Dates Dr. Jae Belcher MD Primary Care Provider Active Start: November 11, 2024 Dr. Tulio Keenan MD Attending Provider Active S tart: November 11, 2024 Dr. Tulio Keenan MD Referring Provider Active S tart: November 11, 2024 Team Status: Active Member Role Status Dates Dr. Jae Belcher MD Primary Care Provider Active Start: November 12, 2024 Mendoza Boogie PA, PA Attending Provider Active Start: November 12, 2024 Mendoza Boogie PA, PA Referring Provider Active Start: November 12, 2024 Team Status: Active Member Role Status Dates Dr. Jae Belcher MD Primary Care Provider Active Start: November 12, 2024 Mendoza Boogie PA, PA Referring Provider Active Start: November 12, 2024 Mendoza Boogie PA, PA Other Provider Active Start: November 12, 2024 CHRISTIAN Parra Attending Provider Active S tart: November 12, 2024 Team Status: Active Member Role Status Dates Dr. Jae Belcher MD Primary Care Provider Active Start: November 16, 2024 Mendoza Boogie PA, PA Attending Provider Active Start: November 16, 2024 Mendoza Boogie PA, PA Referring Provider Active Start: November 16, 2024 Team Status: Inactive Member Role Status Dates Dr. Jae Belcher MD Primary Care Provider Active Start: November 09, 2024 End: November 09, 2024 Mendoza Boogie PA, PA Attending Provider Active Start: November 09, 2024 End: November 09, 2024 Mendoza Boogie PA, PA Referring Provider Active Start: November 09, 2024 End: November 09, 2024 Team Status: Inactive Member Role Status Dates Dr. Jae Belcher MD Primary Care Provider Active Start: November 12, 2024 End: November 12, 2024 Mendoza Boogie PA, PA Attending Provider Active Start: November 12, 2024 End: November 12, 2024 Mendoza JULIEN, PA Referring Provider Active Start: November 12, 2024 End: November 12, 2024 Team Status: Inactive Member Role Status Dates Dr. Jae Belcher MD Primary Care Provider Active Start: November 16, 2024 End: November 16, 2024 Mendoza JULIEN, PA Attending Provider Active Start: November 16, 2024 End: November 16, 2024 Mendoza JULIEN PA Referring Provider Active Start: November 16, 2024 End: November 16, 2024 Team Status: Inactive Member Role Status Dates Dr. Jae Belcher MD Primary Care Provider Active Start: November 11, 2024 End: 2024 Dr. Tulio Keenan MD Attending Provider Active S tart: November 11, 2024 End: 2024 Dr. Tulio Keenan MD Referring Provider Active S tart: November 11, 2024 End: 2024 Team Status: Inactive Member Role Status Dates Dr. Jae Belcher MD Primary Care Provider Active Start: December 21, 2024 End: December 21, 2024 Mendoza JULIEN, PA Attending Provider Active Start: December 21, 2024 End: December 21, 2024 Mendoza JULIEN PA Referring Provider Active Start: December 21, 2024 End: December 21, 2024 Team Status: Inactive Member Role Status Dates Dr. Jae Belcher MD Primary Care Provider Active Start: December 22, 2024 End: December 22, 2024 Dr. Jae Belcher MD Referring Provider Active Start: December 22, 2024 End: December 22, 2024 Mendoza JULIEN, PA Attending Provider Active Start: December 22, 2024 End: December 22, 2024 Horse Trader Relationship Specialty Start Date End Date Jae Belcher MD [address] [place] [address] PCP - General Internal Medicine 08/22/21 Savanna Kothari, MANAGER HOSPICE.SURGICAL ONCOLOGIST [address] [place] [address] Electrical Engineering Professor Internal Medicine 08/17/24 Team Status: Active Member Role Status Dates Dr. Jae Belcher MD Primary Care Provider Active Start: December 31, 2024 Mendoza JULIEN PA Attending Provider Active Start: December 31, 2024 Mendoza JULIEN PA Referring Provider Active Start: December 31, 2024 Team Status: Inactive Member Role Status Dates Dr. Jae Belcher MD Primary Care Provider Active Start: January 05, 2025 End: January 05, 2025 Mendoza JULIEN PA Attending Provider Active Start: January 05, 2025 End: January 05, 2025 WILY Smith Referring Provider Active Start: January 05, 2025 End: January 05, 2025 Team Status: Inactive Member Role Status Dates Dr. Jae Belcher MD Primary Care Provider Active Start: January 14, 2025 End: February 06, 2025 Self Referred Attending Provider Active Start: 2024 End: February 06, 2025 Team Status: Inactive Member Role Status Dates Dr. Jae Belcher MD Primary Care Provider Active Start: January 18, 2025 End: January 18, 2025 Dr. Jae Belcher MD Referring Provider Active Start: January 18, 2025 End: January 18, 2025 Dr. Berna Parsons MD Attending Provider Active Start: January 18, 2025 End: January 18, 2025 Goals (unrecognized section and content) Goals may be documented in a n alternate sectionGoals may be documented in an alternate sectionGoals may be documented in an alternate sectionGoals may be documented in an alternate sectionGoals may be documented in an alternate sectionGoals may be documented in an alternate sectionGoals may be documented in an alternate sectionGoals may be documented in an alternate sectionGoals may be documented in an alternate sectionGoals may be documented in an alternate section Scheduled Active and Recently Administ ered Medications (unrecognized section and content) Medication Order 06/07/2024 06/08/2024 06/09/2024 aspirin chewable tablet 324 mg (COMPLETED) 324 mg, oral, Once, On Sat06/09/24 at 1000, For 1 dose, Preprocedure, If not taken prior to arrival 1013 (Given - Provid er: Rob Shrestha RN) sodium chloride 0.9 % bolus 500 mL 500 mL, intravenous, at 999 mL/hr, Administer over 0.5 Hours, Once, On Sat06/09/24 at 1430, For 1 dose 1430 (Due) Continuous Medication Order 06/07/2024 06/08/2024 06/09/2024 sodium chloride 0.9% infusion (CANCELED) 100 mL/hr, intravenous, Continuous, Starting on Sat06/09/24 at 1000, Preprocedure 1015 (New Bag - Prov ider: Rob Shrestha RN)1244 (New Bag - Provider: Latoya Adam RN)1343 (Due: Stopped - Provider: Anita Lim APRN-[facility]) sodium chloride 0.9% infusion 1.5 mL/kg/hr 78 kg (117 mL/hr), intravenous, Continuous, Starting on Sat06/09/24 at 1400, For 4 hours, Recovery & On Unit, LVEDP greater than 18 mm Hg. Post-Procedure Hydration Protocol POSIEDON 1400 (Due) PRN Medication Order 06/07/2024 06/08/2024 06/09/2024 fentaNYL PF (Sublimaze) injection (CANCELED) As needed, Starting on Sat06/09/24 at 1244, Intraprocedure 1244 (Given - Provid er: Latoya Adam RN) heparin 1,000 unit/mL injection (CANCELED) As needed, Starting on Sat06/09/24 at 1253, Intraprocedure 1253 (Given - Provid er: Latoya Adam RN) iohexol (OMNIPaque) 350 mg iodine/mL solution (CANCELED) As needed, Starting on Sat06/09/24 at 1302, Intraprocedure 1302 (Given - Provid er: Flaquita Hendrix MD) lidocaine PF (Xylocaine) 10 mg/mL (1 %) injection (CANCELED) As needed, Starting on Sat06/09/24 at 1246, Intraprocedure 1246 (Given - Provid er: Flaquita Hendrix MD - Comment: right rad) midazolam (Versed) injection (CANCELED) As needed, Starting on Sat06/09/24 at 1244, Intraprocedure 1244 (Given - Provid er: Latoya Adam RN) nitroglycerin in 5 % dextrose 10 mL syringe (CANCELED) As needed, Starting on Sat06/09/24 at 1247, Intraprocedure 1247 (Given - Provid er: Flaquita Hendrix MD) Scheduled Medication Order 08/20/2024 08/21/2024 08/22/2024 amiodarone (Pacerone) tablet 200 mg(Linked Group 1) 200 mg, oral, Daily, First dose on Sat09/01/24 at 0900, Indications: atrial fibrillation amiodarone (Pacerone) tablet 400 mg(Linked Group 1) 400 mg, oral, 2 times daily, First dose on Sat08/19/24 at 0900, For 25 doses, Indications: atrial fibrillation 0849 (Given - Provider: Moose Guardado RN)2010 (Given - Provider: Patrick Retana RN) 09 (Given - Provider: Meng Mcghee RN)2034 (Given - Provider: Harika Diana RN) 0946 (Given - Provider: Meng Mcghee, DANIEL)2100 (Due) apixaban (Eliquis) tablet 5 mg 5 mg, oral, 2 times daily, First dose on Sat08/20/24 at 0900 0851 (Given - Provider: Moose Guardado RN)2011 (Given - Provider: Patrick Retana RN) 09 (Given - Provider: Meng Mcghee RN)2034 (Given - Provider: Harika Diana, RN) 0946 (Given - Provider: Meng Mcghee RN)2100 (Due) aspirin chewable tablet 81 mg 81 mg, oral, Daily, First dose on Sat08/10/24 at 1300, Phase II/On Unit, Hold for platelets less than 50,000 0849 (Given - Provider: Moose Guardado RN) 09 (Given - Provider: Meng Mcghee RN) 0946 (Given - Provider: Meng Mcghee RN) furosemide (Lasix) injection 20 mg (CANCELED) 20 mg, intravenous, 2 times daily (morning and midday), First dose (after last modification) on Sat08/20/24 at 0900 0852 (Given - Provider: Moose Guardado RN)1437 (Given - Provider: Moose Guardado RN) furosemide (Lasix) tablet 20 mg 20 mg, oral, 2 times daily (morning and late afternoon), First dose on Sat08/21/24 at 0800 0907 (Given - Provider: Meng Mcghee RN)1644 (Given - Provider: Meng Mcghee RN) 0946 (Given - Provider: Meng Mcghee RN)1700 (Due) guaiFENesin (Mucinex) 12 hr tablet 1,200 mg (COMPLETED) 1,200 mg, oral, 2 times daily, First dose on Sat08/18/24 at 2100, For 6 doses, Administer with plenty of fluids to ensure proper action. Do not crush, chew, or split. 0849 (Given - Provider: Moose Guardado RN)2010 (Given - Provider: Patrick Retana RN) 09 (Given - Provider: Meng Mcghee RN) magnesium sulfate 2 g in sterile water for injection 50 mL (COMPLETED) 2 g, intravenous, at 25 mL/hr, Administer over 2 Hours, Once, On Sat08/20/24 at 0730, For 1 dose 0851 (New Bag - Provider: Moose Guardado RN)1055 (Stopped - Provider: Moose Guardado RN) metoprolol tartrate (Lopressor) tablet 25 mg 25 mg, oral, 2 times daily, First dose (after last modification) on Sat08/17/24 at 2100 0851 (Given - Provider: Moose Guardado RN)2010 (Given - Provider: Patrick Retana, DANIEL) 09 (Given - Provider: Meng Mcghee, DANIEL)203 (Given - Provider: Harika Diana RN) 0946 (Given - Provider: Meng Mcghee, DANIEL)2100 (Due) multivitamin with minerals 1 tablet 1 tablet, oral, Daily, First dose on Sat08/16/24 at 0900 0850 (Given - Provider: Moose Guardado RN) 0906 (Given - Provider: Meng Mcghee RN) 0947 (Given - Provider: Meng Mcghee RN) polyethylene glycol (Glycolax, Miralax) packet 17 g 17 g, oral, Daily, First dose on Sat08/10/24 at 1300, Phase II/On Unit, Bowel Regimen - for prevention of constipation. 0851 (Not Given - Provider: Moose Guardado RN - Reason: Other - Comment: 4 bm's) 0908 (Not Given - Provider: Meng Mcghee RN - Reason: Patient/family refused) 0956 (Not Given - Provider: Meng Mcghee RN - Reason: Patient/family refused) potassium chloride CR (Klor-Con M20) ER tablet 20 mEq 20 mEq, oral, 2 times daily, First dose on Sat08/17/24 at 1700, Best given with food and plenty of water to minimize gastric irritation. Do not crush or chew. 0849 (Not Given - Provider: Moose Guardado RN - Reason: Other)2010 (Given - Provider: Patrick Retana RN) 09 (Given - Provider: Meng Mcghee RN)1644 (Given - Provider: Meng Mcghee RN) 0947 (Given - Provider: Meng Mcghee RN)1700 (Due) potassium chloride CR (Klor-Con M20) ER tablet 20 mEq (COMPLETED) 20 mEq, oral, Once, On Sat08/21/24 at 0800, For 1 dose, Best given with food and plenty of water to minimize gastric irritation. Take with Lasix. Do not crush or chew. 09 (Given - Provider: Meng Mcghee RN) pravastatin (Pravachol) tablet 20 mg 20 mg, oral, Nightly, First dose on Sat08/11/24 at 2099 2010 (Given - Provider: Patrick Retana RN) 2034 (Given - Provider: Harika Diana RN) 2099 (Due) sennosides-docusate sodium (Zoie-Colace) 8.6-50 mg per tablet 2 tablet 2 tablet, oral, 2 times daily, First dose on Sat08/10/24 at 1300, Phase II/On Unit, Bowel Regimen - for prevention of constipation Hold for loose stools, On hold since 08/15/2024 at 0719 until manually unheld 09 (Not Given - Provider: Moose Guardado RN - Reason: Other - Comment: marked as held by provider)2099 (Not Given - Provider: Patrick Retana RN - Reason: See Provider Order) 0900 (Not Given - Provider: Meng Mcghee RN - Reason: See Provider Order)2100 (Not Given - Provider: Harika Diana RN - Reason: See Provider Order) 0900 (Not Given - Provider: Meng Mcghee RN - Reason: See Provider Order)2100 (Dose Auto Held - Provider: Eh Mckeon, MANAGER HOSPICE-SURGICAL ONCOLOGIST) PRN Medication Order 08/20/2024 08/21/2024 08/22/2024 acetaminophen (Tylenol) tablet 650 mg 650 mg, oral, Every 6 hours PRN, pain mild (1-3), first line, pain moderate (4-6), first line, pain severe (7-10), first line, Starting on Sat08/17/24 at 0832, If ordered PRN for pain, nurse is permitted to administer this medication for higher pain scores based on patient preference? Yes dextrose 50 % injection 12.5 g 12.5 g, intravenous, Every 15 min PRN, For blood glucose 41 to 70 mg/dL, Starting on Sat08/21/24 at 0730, May repeat until blood glucose level reaches 100 mg/dL or greater. Push 2 - 3 mL/minute if patient has secure IV access. dextrose 50 % injection 25 g 25 g, intravenous, Every 15 min PRN, For blood glucose less than or equal to 40 mg/dL, Starting on Sat08/21/24 at 0730, May repeat until blood glucose level reaches 100 mg/dL or greater. Push 2 - 3 mL/minute if patient has secure IV access. glucagon (Glucagen) injection 1 mg 1 mg, intramuscular, Every 15 min PRN, blood glucose less than or equal to 40 mg/dL - see comments, For blood glucose less than or equal to 40 mg/dL and no IV access, Starting on Sat08/21/24 at 0730, Give until blood glucose is 100 mg/dL or greater. If patient DOES NOT HAVE secure IV access & patient is unconscious, NPO or is unable to eat or drink. glucagon (Glucagen) injection 1 mg 1 mg, intramuscular, Every 15 min PRN, blood glucose 41 to 70 mg/dL - see comments, For blood glucose 41 to 70 mg/dL and no IV access, Starting on Sat08/21/24 at 0730, Give until blood glucose is 100 mg/dL or greater. If patient DOES NOT HAVE secure IV access & patient is unconscious, NPO or is unable to eat or drink. ipratropium-albuteroL (Duo-Neb) 0.5-2.5 mg/3 mL nebulizer solution 3 mL 3 mL, nebulization, Every 2 hour PRN, wheezing, shortness of breath, Starting on Sat08/16/24 at 0818 ondansetron (Zofran) injection 4 mg(Linked Group 2) 4 mg, intravenous, Every 8 hours PRN, nausea/vomiting, first line, Starting on Sat08/10/24 at 1239, Phase II/On Unit, 1st Line. Give IV if patient is unable to take orally. If inadequate response within 60 minutes, proceed to next-line agent for same PRN reason or contact provider if no further options ordered. When administering via IV Push, administer over 3-5 minutes. oxyCODONE (Roxicodone) immediate release tablet 5 mg 5 mg, oral, Every 4 hours PRN, pain breakthrough, Starting on Sat08/17/24 at 0829, Phase II/On Unit, If ordered PRN for pain, nurse is permitted to administer this medication for higher pain scores based on patient preference? Yes oxygen (O2) therapy inhalation, Continuous PRN - O2/gases, other, Starting on Sat08/17/24 at 0856, Device: Nasal Cannula, Rate in liters per minute: 3 LPM, Keep O2 Sat Above: 90% simethicone (Mylicon) chewable tablet 120 mg 120 mg, oral, 4 times daily PRN, flatulence, gas pains, Starting on Sat08/12/24 at 1851 traZODone (Desyrel) tablet 50 mg 50 mg, oral, Nightly PRN, sleep, Starting on Sat08/15/24 at 1024 Linked Groups Order Group 1: amiodarone (Pacerone) tablet 400 mgJump to med 400 mg, oral, 2 times daily, First dose on Sat08/19/24 at 0900, For 25 doses, Indications: atrial fibrillation Followed by amiodarone (Pacerone) tablet 200 mgJump to med 200 mg, oral, Daily, First dose on Sat09/01/24 at 0900, Indications: atrial fibrillation Group 2: ondansetron ODT (Zofran-ODT) disintegrating tablet 4 mg (CANCELED) 4 mg, oral, Every 8 hours PRN, nausea/vomiting, first line, Starting on Sat08/10/24 at 1239, Phase II/On Unit, 1st Line. Patient should allow tablet to dissolve on tongue. Do not remove from blister pack until just before administering. If inadequate response within 60 minutes, proceed to next-line agent for same PRN reason or contact provider if no further options ordered. Or ondansetron (Zofran) injection 4 mgJump to med 4 mg, intravenous, Every 8 hours PRN, nausea/vomiting, first line, Starting on 08/10/24 at 1239, Phase II/On Unit, 1st Line. Give IV if patient is unable to take orally. If inadequate response within 60 minutes, proceed to next-line agent for same PRN reason or contact provider if no further options ordered. When administering via IV Push, administer over 3-5 minutes. FOR RECORDS PERTAINING TO PATIENTS WHO ARE OR HAVE BEEN ENROLLED IN A CHEMICAL DEPENDENCY/SUBSTANCEABUSE PROGRAM, SOME INFORMATION MAY BE OMITTED. This clinical summary was aggregated from multiple sources. Caution should be exercised in using it in the provision of clinical care. This summary normalizes information from multiple sources, and as a consequence, information in this document may materially change the coding, format and clinical context of patient data. In addition, data may be omitted in some cases. CLINICAL DECISIONS SHOULD BE BASED ON THE PRIMARY CLINICAL RECORDS. [email or web address] provides no warranty or guarantee of the accuracy or completeness of information in this document.
--- NOTE | 2025-04-21 13:52 | NEURO_ITS ---
NCS and/or EMG Patient Report Ordering Doctor: Berna Parsons DATE OF SERVICE: 04/21/25 Karla presents with complaints of numbness and tingling in both feet. Electrodiagnostic findings: Left peroneal motor nerve demonstrates normal distal latency, amplitude and conduction velocity. Right peroneal motor nerve d emonstrates normal distal latency and amplitude with reduced conduction velocity. No significant drop in conduction across the fibular head. Tibial motor response is within normal limits bilaterally. Normal tibial and peroneal F?waves. Prolonged H?reflex bilaterally. Normal sural response bilaterally. Mildly prolonged right superficial peroneal latency. Absent medial plantar response bilaterally. Needle EMG testing was performed the lower limbs. All muscles tested showed no evidence of denervation with normal motor unit action potentials. Electrodiagnostic impression: This is an abnormal study in the lower limbs. 1. Electrodiagnostic findings suggestive of peripheral polyneuropathy, primarily sensory in nature with evidence of demyelination. 2. There is no electrodiagnostic evidence for lumbosacral radiculopathy. Multi Select Codes Neurology Neurology Interp Codes: 85190-37 Musc test done w/n test comp (interp) (2) and 93468-85 Nr cndj test 11-12 studies (interp)
== END | disposition home or self-care (01) ==
PROVIDERS: PCP Internal Medicine; Referring Provider Internal Medicine; Visit Provider Internal Medicine
DX: R20.2 Paresthesia of skin (principal); R20.0 Anesthesia of skin
CPT/HCPCS: 95886; 95912

== ENCOUNTER → 2025-05-03 | Outpatient (CLI) | payer MEDICARE, SELFPAY ==
[2024-11-02 14:51] VITALS: BMI 23.1
--- OUTSIDE RECORDS SUMMARY | 2025-05-03 07:19 | XMS RPT_ITS | CCD ---
Author Organization [facility] Care Team Providers [facility] Director Name Role Phone PADDY ROBERTS Unavailable Unavailable Jae Belcher MD Primary Care Provider Jae Belcher MD Primary Care Provider [phone] Dr. Pantera Thomas III Referring Provider WLIY Early Attending Provider Dr. Jae Belcher Primary [...] Unavailable JAH OLMEDO Referring Unavailable BELCHER, JAE [facility] Primary Care Unavailable Marium [facility] Provider Joaquim Galloway MD Unavailable Unavailable Primary Care Provider Hang Kothari APRN.Savanna MARY Unavailable JOAQUIM GALLOWAY Referring Unavailable BELCHER, JAE [facility] Primary Care Unavailable LAVERNE, JOAQUIM James Attending Unavailable MARIUM, JAE [facility] Primary Care Unavailable LAVERNE, JOAQUIM James Referring Unavailable BELCHER, JAE [facility] Primary Care Unavailable BELCHER, JAE [facility] Primary Care Unavailable JOAQUIM GALLOWAY Attending Unavailable ANITA LIM Referring Unavailable BELCHER, JAE [facility] Primary Care Unavailable BELCHER, JAE [facility] Primary Care Unavailable EH MCKEON Referring Unavailable BELCHER, JAE [facility] Primary Care Unavailable MARIUM, JAE [facility] Primary Care Unavailable JOAQUIM GALLOWAY Referring Unavailable BELCHER, JAE [facility] Primary Care Unavailable JOAQUIM GALLOWAY Referring Unavailable BELCHER, JAE [facility] Primary Care Unavailable LAVERNE, JOAQUIM James Attending Unavailable MARIUM JAE OLINDA HIMYESHACoreen Primary Care Unavailable JAE BELCHER Primary Care Unavailable JAE BELCHER Attending Unavailable JAE BELHCER Primary Care Unavailable JAE BELCHER Referring Unavailable [...] Primary Care Unavailable SAVANNA KOTHARI Attending Unavailable MARIUM, JAE Sloan Primary Care Unavailable BELCHER, JAE Sloan Referring Unavailable BELCHER, JAE Sloan Primary Care Unavailable BELCHER, JAE Sloan Referring Unavailable MENDOZA PUENTE Attending Unavailable BELCHER, DHARA Primary Care Unavailable BELCHER, DHARA Referring Unavailable BELCHER, DHARA Primary Care Unavailable BELCHER, DHARA Referring Unavailable BELCHER, DHARA Primary Care Unavailable BELCHER, DHARA Referring Unavailable BELCHER, DHARA Primary Care Unavailable BELCHER, DHARA Attending Unavailable BELCHER, DHARA Primary Care Unavailable Dr. Jae Belcher MD Primary Care Provider Marium FLETCHER, Dr. Rowe Referring Provider Mendoza Early Attending Provider Mendoza Early Referring Provider Mendoza Early Other Provider [phone] Christina Brooks Attending Provider Dr. Tulio Keenan MD Attending Provider Dr. Tulio Keenan MD Referring Provider [phone] Lisbeth Lay Attending Provider Marium FLETCHER, Dr. Rowe Primary Care Provider Dr. Jae Belcher MD Referring Provider Mendoza Early Attending Provider Mendoza Early Referring Provider Mendoza Early Other Provider Referred, Self Attending Provider Unavailable Jaqueline FLETCHER, Dr. Coronel Attending Provider Marium FLETCHER, Dr. Rowe Primary Care Provider Mendoza Early Attending Provider Mendoza Early Referring Provider Dr. Tulio Keenan MD Attending Provider [phone] Marium FLETCHER, Dr. Rowe Referring Provider Jaqueline FLETCHER, Dr. Coronel Primary Care Provider Jaqueline FLETCHER, Dr. Coronel Referring Provider Jaqueline FLETCHER, Dr. Coronel Other Provider Antonio FLETCHER, Dr. Valdovinos Attending Provider Mendoza Early Referring Unavail able Ree, Rensselaer Attending Unavailable Belcher, Jae Primary Care Unavailable Ree, Renssela[place] Attending Unavailable Ree, Tulio Referring Unavailable Belcher, Jae Primary Care Unavailable Referred, Self Attending Unavailable Belcher, Jae Primary Care Unavailable Referred, Self Attending Unavailable Belcher, Jae Primary Care Unavailable Mendoza Early Attending Unavail able Mendoza Early Referring Unavail able Belcher, Jae Primary Care Unavailable Mendoza Early Attending Unavail able Mendoza Early Referring Unavail able Belcher, Jae Primary Care Unavailable Ree, Renssela[place] Attending Unavailable Ree, Tulio Referring Unavailable Belcher, Jae Primary Care Unavailable Mendoza Early Referring Unavail able Mendoza Early Attending Unavail able Belcher, Jae Primary Care Unavailable Referred, Self Attending Unavailable Belcher, Jae Primary Care Unavailable Mendoza Early Referring Unavail able Mendoza Early Attending Unavail able Belcher, Jae Primary Care Unavailable Ree, R[place]sel[place] Attending Unavailable Belcher, Jae Primary Care Unavailable Ree, Tulio Referring Unavailable Mendoza Early Attending Unavail able Mendoza Early Referring Unavail able Belcher, Jae Primary Care Unavailable Mendoza Early Attending Unavail able Mendoza Early Referring Unavail able Belcher, Jae Primary Care Unavailable RemyRoman Attending Unavailable Belcher, Jae Primary Care Unavailable Roman Alberto Referring Unavailable Mendoza Early Attending Unavail able Mendoza Early Referring Unavail able Belcher, Jae Primary Care Unavailable Mendoza Early Attending Unavail able Mendoza Early Referring Unavail able Belcher, Jae Primary Care Unavailable Mendoza Early M Attending Unavail able Mendoza Early Referring Unavail able Belcher, Jae Primary Care Unavailable Jaqueline, Berna Primary Care Unavailable Belcher, Jae Referring Unavailable Tulio Keenan Attending Unavailable Mendoza Early M Attending Unavail able Chuyita JULIEN, Mendoza M Referring Unavail able Belcher, Jae Primary Care Unavailable Mendoza Early Attending Unavail able Mendoza Early Referring Unavail able Belcher, Jae Primary Care Unavailable Mendoza Early Attending Unavail able Mendoza Early Referring Unavail able Belcher, Jae Primary Care Unavailable Mendoza Early Referring Unavail able Mendoza Early Attending Unavail able Belcher, Jae Primary Care Unavailable Bainbridge, Berna Attending Unavailable Jaqueline, Berna Primary Care Unavailable Bainbridge, Berna Referring Unavailable Mendoza Early Consulting Unavail able Mendoza Early Referring Unavail able Ari CR, Attending Unavailable Belcher, Jae Primary Care Unavailable Mendoza Early Consulting Unavail able Mendoza Early Referring Unavail able Lisbeth Garvey Attending Unavailable Belcher, Jae Primary Care Unavailable Jaqueline, Beran Referring Unavailable Bainbridge, Berna Consulting Unavailable Bainbridge, Berna Primary Care Unavailable Bonifacio Alvarez Attending Unavailable Mendoza Early Consulting Unavail able Mendoza Early Referring Unavail able Christina Chapman NP Attending Unavailable Belcher, Jae Primary Care Unavailable Mendoza Early Consulting Unavail able Mendoza Early Referring Unavail able Ari [employer] MEMBER, Attending Unavailable Belcher, Jae Primary Care Unavailable Mendoza Early Attending Unavail able Belcher, Jae Referring Unavailable Belcher, Jae Primary Care Unavailable Mendoza Early Attending Unavail able Belcher, Jae Referring Unavailable Belcher, Jae Primary Care Unavailable Mendoza Early Attending Unavail able Belcher, Jae Referring Unavailable Belcher, Jae Primary Care Unavailable Mendoza Early Attending Unavail able Belcher, Jae Primary Care Unavailable Belcher, Jae Referring Unavailable Bainbridge, Berna Attending Unavailable Belcher, Jae Referring Unavailable Belcher, Jae Primary Care Unavailable Mendoza Early Consulting Unavail able Mendoza Early Referring Unavail able Ari MEAT SERVICE TEAM MEMBERChristina Attending Unavailable Belcher, Jae Primary Care Unavailable Referred, Self Attending Unavailable Belcher, Jae Primary Care Unavailable Jaqueline, Berna Referring Unavailable Bainbridge, Berna Attending Unavailable Jaqueline, Berna Primary Care Unavailable Mendoza Early Attending Unavail able Mendoza Early Referring Unavail able Belcher, Jae Primary Care Unavailable Allergies Allergy Classification Reported Allergen(s) Allergy Type Date of Onset Reaction(s) Facility (20 sources) amLODIPine; Translations: [AMLODIPINE BESYLATE] Drug Allergy 01-31-[address] [facility] Repository (20 sources) Lisinopril; Translations: [LISINOPRIL] Drug Allergy 03-09-[address] [facility] Repository (1 source) OTHER; Translations: [OTHER] Propensity to adverse reactions (disorder) 07-14-20 09 [facility] (20 sources) Adhesive agent; Translations: [ADHESIVE] Drug Intolerance 11-06-19 19 Other: See Comments, Rash [facility] Work Phone: (12 sources) Environmental allergies [Other] Propensity to adverse reactions 07-14-20 09 [facility] (20 sources) amLODIPine; Translations: [AMLODIPINE] Drug Allergy 07-05-20 22 Swelling [facility] (12 sources) Environmental Allergies: Uncoded; Translations: [Environmental Allergies: Uncoded] Allergy to substance 08-10-20 22 Itching [facility] (20 sources) House Dust Mite; Translations: [HOUSE DUST MITE] Drug Allergy 08-26-20 23 Cough [facility] Work Phone: (20 sources) meloxicam; Translations: [MELOXICAM] Drug Allergy 01-02-20 24 Myalgia, Other [facility] (20 sources) Doxazosin; Translations: [DOXAZOSIN] Drug Allergy 09-05-20 24 Dizziness [facility] Work Phone: (14 sources) Adhesive Tape-Silicones; Translations: [ADHESIVE TAPE-SILICONES] Propensity to adverse reactions 05-14-20 Itching [facility] (9 sources) Adhesive Tape; Translations: [adhesive tape] Allergy to substance 10-29-19 Itching [facility] (1 source) amLODIPine Drug Allergy 01-19-20 [facility] Repository (1 source) Doxazosin Drug Allergy 01-19-20 [facility] Repository (1 source) meloxicam Drug Allergy 01-19-20 [facility] Repository Medications Current Medications Medication Drug Class(es) Dates Sig (Normalized) Sig (Original) acetaminophen 500 mg oral tablet (13 sources) Start: 01-18-2025 take 1 tablet by mouth twice daily Acetaminophen 500 mg tablet Active 500 mg PO TWICE A DAY January 18, 2025 12:00am Aug 2024 Start: 08-21-2024 take 2 tablets by mo [facility] every six hours acetaminophen (Tylenol) [...] aspirin 81 mg delayed release oral tablet (16 sources) Platelet Aggregation Inhibitor, Nonsteroidal Anti-inflammatory Drug [...] breakfast. Active Beta Carotene 10,000 unit capsule (8 sources) Start: 09-03-2024 take 1 capsule by mouth once daily Beta Carotene 10,000 unit capsule Active 7500 ug PO daily September 03, 2024 1:00am administer with a meal biotin 1 mg chewable tablet (20 sources) Start: 01-18-2025 take 1 tablet by [...] docusate sodium 50 mg / antonino osides, care home 8.6 mg oral tablet (1 source) Start: 08-10-2024 Drug or medicament (substanc e) (9 sources) Start: 08-17-2024 Start: 08-15-2024 End: 08-17-2024 Start: 08-13-2024 End: 08-15-2024 Start: 08-12-2024 End: 08-13-2024 Start: 08-12-2024 End: 08-12-2024 Start: 08-12-2024 End: 08-12-2024 Start: 08-11-2024 End: 08-12-2024 Start: 08-10-2024 End: 08-11-2024 fluticasone propionate 0.05 mg/actuat metered dose nasal spray (19 sources) Corticosteroid Start: 09-03-2024 End: 01-18-2025 Fluticasone Propionate 50 mcg/actuation spray,suspension Active 1 NMA INTRANASAL daily as needed January 18, 2025 1:53pm administer into each nostril take 1 spray(s) nasal route once daily fluticasone (FLONASE) 50 mcg/actuation nasal spray Use 1 [place] in each nostril once daily. Active fluticasone [...] Start: 08-21-2024 loratadine 10 mg oral tablet (17 sources) Start: 09-03-2024 take 1 capsule by [...] by mouth once daily. Active Multivitamin tablet (8 sources) Start: 03-11-2024 Multivitamin t ablet Active 1 {tbl} PO DAILY March 11, 2024 12:00am wc-mnk-lhnpl-calcium carb-K1 (WOMEN'S 50 PLUS MULTIVITAMIN) 400 mcg-500 mg calcium-20 mcg tab (7 sources) Start: 05-29-2024 take 1 tablet by mouth once daily xd-prl-upqdt-calcium carb-K1 (WOMEN'S 50 PLUS MULTIVITAMIN) 400 mcg-500 [...] Comment on above: Take 1 capsule by [facility] two times a day with meals for [...] needed 2 ml ondansetron 2 mg/ml injection (12 sources) Serotonin-3 Receptor Antagonist Start: 08-10-2024 take 4 mg intravenously every eight hours as needed Start: 02-08-2019 End: 04-28-2019 take 1 tablet by mouth every eight hours as needed for nausea Ondansetron Hcl 8 MG tablet Discontinued 8 mg PO EVERY 8 HOURS NEEDED as needed for nausea vomiting 20 0 February 08, 2019 12:00am April 28, 2019 5:03pm polyethylene glycol 3350 51100 mg powder for oral solution (8 sources) [...] Comment on above: Take 1 tablet by [facility] once daily. simethicone 80 mg chewable tablet [...] mg tablet Active 25 mg PO DAILY 90 December 08, 2024 10:44am Start: 07-05-2022 End: 09-03-2024 take 1 tablet by mouth once daily Spironolactone 50 mg tablet Discontinued 50 mg PO DAILY 90 November 04, 2023 2:43pm September 03, 2024 1:58pm Comment on above: Take 50 mg by mouth once daily. Take 1 tablet by britni th once daily. Per [facility] Take 50 mg by mouth once daily. Per [facility] traZODone hydrochloride 50 mg oral tablet (1 source) Serotonin Reuptake Inhibitor Start: 4 Vit B Cmplx 3-FA-Vit C-Biotin tablet (5 sources) Vit B Cmplx 3-FA-Vit C-Biotin tablet Take 1 tablet by mouth daily with breakfast. Active Vit B Complx-Folic Ac-C-Biotin 1 mg-60 mg- 300 mcg tablet (8 sources) Start: 4 Vit B Complx-Folic Ac-C-Biotin 1 mg-60 mg- 300 mcg tablet Active {tbl} PO DAILY September 03, 2024 1:00am Vit C,F-Fd-Ncpjo-Lutein-Ant avery (Preservision Areds-2) 250-90-40-1 mg capsule (17 sources) Start: 4 take 2 capsules by mouth twice daily Vit C,N-Yl-Nwjqt-Lute in-Zeaxan (Preservision Areds-2) 250-90-40-1 mg capsule Active 1 {tbl} PO TWICE A DAY March 11, 2024 2:40pm Start: 08-20-2023 End: 03-11-2024 take 2 capsules by mouth once Vit C,C-Bv-Lcoqb-Lutein-Zeaxan (Preservision Areds-2) 250-90-40-1 mg capsule Discontinued 1 {tbl} PO ONCE August 20, 2023 1:00am March 11, 2024 2:41pm Start: 08-20-2023 Vit C,E-Zn-Airline Customer Service Agent hk-Kmuwur-Wlymlr (Preservision Areds-2) 250-90-40-1 mg capsule Active 1 [...] (Normalized) Sig (Original) 500 ml albumin human, care home 50 mg/ml injection (2 sources) Human Serum [...] mg / clavulanate 125 mg oral tablet (11 sources) Penicillin-class Antibacterial Start: 02-08-2019 End: 04-28-2019 take 1 tablet by mouth every twelve hours Amoxicillin-Pot Clavulanate 875 MG tablet Discontinued 875 mg PO Q12H 14 0 February 08, 2019 12:00am April 28, 2019 [...] tablet Discontinued 50 mg PO DAILY 90 3 April 30, 2019 11:59am August 25, 2019 10:06am HEART benzonatate 100 mg oral capsule (1 source) Non-narcotic Antitussive Start: 08-15-2024 End: 08-17-2024 calcium carbonate 1500 mg / cholecalciferol 200 unt oral capsule (11 sources) Vitamin D Start: 04-28-2019 End: 08-20-2023 Calcium Carbonate-Vitamin D3 600 mg calcium- 200 unit capsule Discontinued 1 NMA PO DAILY 0 April 28, 2019 12:00am August 20, 2023 10:12am Calcium Carbonate / vitamin D3 (12 sources) take 1 tablet by mouth twice daily CALCIUM CARBONATE/VITAMIN D3 (CALCIUM 600 + D ORAL) Take 1 tablet by mouth twice daily. 0 Active Comment on above: Take 1 tablet by britni th twice daily. calcium chloride 0.0014 meq/ml / [...] 07/29/2024 Active cholecalciferol 0.05 mg oral capsule (10 sources) Vitamin D Start: 11-29-2022 End: 08-20-2023 take 1 capsule by mouth once daily Cholecalciferol (Vitamin D3) 50 mcg (2,000 unit) capsule Discontinued 50 ug PO DAILY November 29, 2022 12:00am August 20, 2023 10:11am dextromethorphan hydrobromide 2 mg/ml / guaiFENesin 20 mg/ml oral solution (1 source) Uncompetitive K-ctfpml-P-asparta te Receptor Antagonist, Sigma-1 Agonist Start: 08-15-2024 End: 08-17-2024 take 10 mL by mouth every four hours as needed doxazosin 2 mg oral tablet (20 sources) alpha-Adrenergic Pati Start: 08-20-2023 End: 03-23-2024 take 1 tablet by mouth at bedtime Doxazosin (Cardura) 2 mg tablet Discontinued 2 mg PO AT BEDTIME 30 August 20, 2023 1:00am March 11, 2024 [...] tablet Discontinued 20 mg PO EVERY MORNING 90 December 22, 2024 10:05am January 18, 2025 1:53pm Start: 11-10-2024 End: 12-22-2024 take 1 tablet by mouth once daily in the morning Furosemide 40 mg tablet Discontinued 40 mg PO EVERY MORNING 90 November 10, 2024 12:38pm December 22, 2024 10:07am Start: 09-04-2024 End: 10-29-2024 take 1 tablet by mouth once daily in the morning Furosemide 40 mg tablet Discontinued 40 mg PO EVERY MORNING 90 September 21, 2024 11:17am October 29, 2024 [...] 25 mg PO THREE TIMES A DAY 90 May 30, 2020 4:59pm June 06, 2020 2:38pm hydroCHLOROthiazide 25 mg oral tablet (20 sources) Thiazide Diuretic Start: 11-29-2022 End: 08-20-2023 take 1 tablet by mouth once daily Hydrochlorothiazide 25 mg tablet Discontinued 25 mg PO DAILY 90 3 November 29, 2022 2:02pm August 20, 2023 10:12am Start: 08-22-2021 End: 07-24-2022 take 2 tablets by mouth once daily hydroCHLOROthiazide (HYDRODIURIL, ESIDRIX) 12.5 mg tablet Take 2 tablets by mouth once daily. 0 08/22/2021 07/24/2022 Discontinued Start: 05-10-2020 End: 07-05-2022 take 1 tablet by mouth once daily Hydrochlorothiazide 25 mg tablet Discontinued 25 mg PO DAILY 90 3 August 10, 2021 4:24pm July 05, 2022 11:14am Start: 02-05-2019 End: 05-10-2020 take 1 tablet by mouth once daily Hydrochlorothiazide 12.5 MG tablet Discontinued 12.5 mg PO DAILY February 05, 2019 12:00am May 10, 2020 2:51pm BP Comment on above: Take 2 tablets by mo [facility] once daily. 1 ml HYDROmorphone hydrochloride 0.2 mg/ml prefilled syringe (1 source) Opioid Agonist Start: 4 End: 4 insulin lispro 100 unt/ml injectable [...] 05, 2019 12:00am September 03, 2024 1:58pm HEART Comment on above: Take 1 tablet by britni once daily. 10 ml lidocaine hydrochloride 10 mg/ml injection (2 sources) Antiarrhythmic, Amide Local Anesthetic Start: End: Start: 08-10-2024 End: 08-13-2024 Magnesium (11 sources) Start: 04-30-2019 End: 08-20-2023 take 1 [...] Multivitamin With Folic Acid 1 TABLET tablet (8 sources) Start: 10-12-2013 End: 08-20-2023 take 1 tablet by mouth at bedtime Multivitamin With Folic Acid 1 TABLET tablet Discontinued 1 {tbl} PO AT BEDTIME October 12, 2013 1:00am August 20, 2023 10:12am SUPPLEMENT Start: 10-12-2013 End: 08-20-2023 take 1 tablet by mouth at bedtime Multivitamin With Folic Acid 1 TABLET tablet Discontinued 1 {tbl} PO AT BEDTIME October 12, 2013 1:00am August 20, 2023 10:12am norepinephrine (Levophed) 8 mg in dextrose 5% 250 mL (0.032 mg/mL) infusion (premix) (1 source) Start: 08-10-2024 End: 08-11-2024 oxyCODONE hydrochloride 5 mg oral capsule (12 sources) Opioid Agonist Start: 09-03-2024 End: 01-18-2025 [...] extended release Discontinued 10 meq PO DAILY 90 November 29, 2022 12:00am August 20, 2023 10:12am Start: 08-10-2021 End: 07-05-2022 take 2 capsules by mouth once daily Potassium Chloride 10 mEq capsule, extended release Discontinued 20 meq PO DAILY 180 August 10, 2021 1:00am July 05, 2022 11:13am Start: 08-10-2021 End: 07-05-2022 take 20 mEq by mouth once daily Potassium Chloride Dis continued 20 MEQ PO DAILY 180 August 10, 2021 12:00am July 05, 2022 10:13am Start: 05-19-2020 End: 08-10-2021 take 1 tablet by mouth once daily Potassium Chloride 20 mEq tablet extended release Discontinued 20 meq PO DAILY 30 June 19, 2020 11:06am August 10, 2021 4:23pm 10 ml propofol 10 mg/ml inje ction (1 source) General Anesthetic Start: 08-10-2024 End: 08-10-2024 sodium chloride 30 mg/ml inh alation solution (4 sources) Start: 08-14-2024 End: 08-16-2024 Start: 08-10-2024 End: 08-11-2024 Start: 06-09-2024 End: 06-09-2024 take 100 mL intravenously every hour 100 mL/hr, intravenous, Continuous, Starting on Sat06/09/24 at 1000, Preprocedure vitamin a 07425 unt oral capsule (20 sources) Vitamin A Start: 04-30-2019 End: 09-03-2024 Vitamin A 10,000 unit capsul e Discontinued 03735 U PO DAILY April 30, 2019 12:00am September 03, 2024 1:58pm Vitamin B Complex (B Complex-Vitamin B12) tablet (11 sources) Start: 04-28-2019 End: 08-20-2023 Vitamin B [...] daily. zinc gluconate 50 mg oral tablet (10 sources) Start: 11-29-2022 End: 08-20-2023 take 1 [...] right foot] 01-02-2024 Chronic Administrative/socia l admission (2 sources) First encounter by subject; Translations: [Persons encountering [...] of unspecified breast] Onset: 1 09-04-2021 Chronic Cardiac dysrhythmias (3 sources) Unspecified atrial fibrillation; [...] Chronic Immunizations and screening for infectious disease (4 sources) Vaccination needed; Translations: [Encounter for immunization] [...] Onset: 4 Episodic Other connective tissue disease (2 sources) Foot pain; Translations: [Pain in right foot] 01-18-2025 Episodic Other diseases of kidney and ureters (8 sources) Renal impairment; Translations: [Disorder of kidney [...] Episodic Other nervous system disorders (1 source) Polyneuropathy, unspecified; Translations: [Polyneuropathy, unspecified] Onset: 5 Chronic Other nervous system disorders (2 sources) Paresthesia of foot ; Translations: [Anesthesia of skin] 01-18-2025 Episodic Other nervous system disorders (2 sources) Paresthesia of skin; Translations: [Paresthesia of skin] Onset: 5 Episodic Other nervous system disorders (1 source) Anesthesia of skin; Translations: [Anesthesia of skin] Onset: 5 Episodic Other screening for suspected conditions (not mental disorders or infectious disease) (6 sources) Patient encounter status; Translations: [Encounter for [...] edema; Translations: [Bilateral lower extremity edema] Onset: 4 Episodic Respiratory failure; insufficiency; arrest (adult) (5 [...] elsewhere classified,I48.91 - Unspecified atrial fibrillation Unclassified (5 sources) Pain in both feet; Translations: [M79.671 - Pain in right foot,M79.672 - Pain in left foot] Unclassified (1 source) Postoperative atrial fibrillation Unclassified (1 source) Aneurysm of the ascending aorta, without rupture; Translations: [Aneurysm of the ascending aorta, without rupture] Onset: 5 Past or Other Problems Problem Classification Problem Date Documented Da te Episodic/Chronic Acquired foot deformities (17 sources) Bunion; Translations: [Bunion of left foot] Onset: 07-18-2013 Resolved: 07-27-2014 07-27-2014 Episodic Cancer of breast (20 sources) History of malignant neoplasm of breast; Translations: [Personal history of malignant neoplasm of breast] Onset: 06-05-2018 06-05-2018 Episodic Diverticulosis and diverticulitis (20 sources) Diverticular [...] unspecified site] Onset: 08-26-2023 08-26-2023 Episodic Other connective tissue disease (1 source) Pain in right foot; Translations: [Pain in right foot] Onset: 01-18-2025 Episodic Other connective tissue disease (1 source) Pain in left foot; Translations: [Pain in left foot] Onset: 01-18-2025 Episodic Other diseases of kidney and ureters [...] Test Name Value Interpretation Reference Range Facility NCS and/or EMG Patienton NCS and/or EMG Patient [facility]monary Services/Neurology [address] [place] [address] MR#: [id number] Acct: [id number] Name: KARLA CAI Rep #: [id number] : 1950 74 From: Bonifacio Alvarez MD Referring Dr: Berna Parsons MD Status: REG I Location: [facility] Date: 04/21/25 Sex: F C NCS and/or EMG Patient Report Ordering Doctor: Berna Parsons DATE OF SERVICE: 04/21/25 Karla presents with complaints of numbness and tingling in both feet. Electrodiagnostic findings: Left peroneal motor nerve demonstrates normal distal latency, amplitude and conduction velocity. Right peroneal motor nerve demonstrates normal distal latency and amplitude with reduced conduction velocity. No significant drop in conduction across the fibular head. Tibial motor response is within normal limits bilaterally. Normal tibial and peroneal F???waves. Prolonged H???reflex bilaterally. Normal sural response bilaterally. Mildly prolonged right superficial peroneal latency. Absent medial plantar response bilaterally. Needle EMG testing was performed the lower limbs. All muscles tested showed no evidence of denervation with normal motor unit action potentials. Electrodiagnostic impression: This is an abnormal study in the lower limbs. 1. Electrodiagnostic findings suggestive of peripheral polyneuropathy, primarily sensory in nature with evidence of demyelination. 2. There is no electrodiagnostic evidence for lumbosacral radiculopathy. Multi Select Codes Neurology Neurology Interp Codes: 29743-45 Musc test done w/n test comp (interp) (2) and 55387-47 Nrv cndj test 11-12 studies (interp) 04/21/25 135 Date Bonifacio Alvarez MD CC: Dr. Berna Parsons MD; Dr. Bonifacio Alvarez MD Date Dictated: 04/21/251351 Date Transcribed: 04/21/251351 Help Desk Specialist: DEONDRE Signed Normal [facility] Laboratory - Hematology and Cell countsOrdered By: Berna Parsons on 01-18-2025 HbA1c (Bld) [Mass fraction] 5.8 % 4.2-6.3 [facility] Internal Medicine Office Vis iton 01-14-2025 Internal Medicine Office Visit [facility] [address] [place] [address] OFFICE VISIT Date of Service: 01/18/25 MR#: [id number] Acct: [id number] Name: KARLA CAI Rep #: [id number] : 1950 Provider: Dr. 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 [facility] Medical History (Updated 01/18/25 @ 14:23 by [...] retired c (more content not included)... Normal [facility] Anion gap in Serum or Plasma Ordered By: Mendoza Boogie on 01-05-2025 Anion gap [Moles/Vol] 10 mmol/L - [facility] BUN/creatinine ratioOrdered By: Mendoza Boogie on 01-05-2025 Urea nitrogen/Creatinine [Mass ratio] 30.8 mg/mg High 06-28 [facility] Basic Metabolic Profile (BMP )on 01-05-2025 BUN/CRE 30.8 RATIO High - [facility] Comment on above: Performed By: #### L 500.2500 #### [facility] [address] [place], [address] Calcium [Mass/Vol] 9.4 mg/dL Normal 7.6-11.0 [facility] Comment on above: Performed By: #### L 500.2500 #### [facility] [address] [place], [address] Chloride [Moles/Vol] 104 mmol/L Normal 98-108 [facility] Comment on above: Performed By: #### L 500.2500 #### [facility] [address] [place], [address] CO2 [Moles/Vol] 23.6 mmol/L Normal 21.0-32.0 [facility] Comment on above: Performed By: #### L 500.2500 #### [facility] [address] [place], [address] Creatinine [Mass/Vol] 1.00 mg/dL Normal 0.70-1.20 [facility] Comment on above: Performed By: #### L 500.2500 #### [facility] [address] [place], [address] GAP 10 Normal - [facility] Comment on above: Performed By: #### L 500.2500 #### [facility] [address] [place], [address] GFR/1.73 sq M.predicted among non-blacks MDRD (S/P/Bld) [Vol rate/Area] 59 mL/min/{1.73_m2} Low >60 [facility] Comment on above: Result Comment: mL/m in/1.73m2 CKD-EPI Creatinine Equation (2020) Performed By: #### L 500.2500 #### [facility] [address] [place], [address] Glucose [Mass/Vol] 97 mg/dL Normal 70-99 [facility] Comment on above: Performed By: #### L 500.2500 #### [facility] [address] [place], [address] Potassium [Moles/Vol] 4.5 mmol/L Normal 3.3-5.1 [facility] Comment on above: Performed By: #### L 500.2500 #### [facility] [address] [place], [address] Sodium [Moles/Vol] 138 mmol/L Normal 133-145 [facility] Comment on above: Performed By: #### L 500.2500 #### [facility] [address] [place], [address] Urea nitrogen [Mass/Vol] 31 mg/dL High 4-19 [facility] Comment on above: Performed By: #### L 500.2500 #### [facility] [address] [place], [address] Carbon dioxide, total [Moles /volume] in Central venous bloodOrdered By: Mendoza Boogie on 01-05-2025 CO2 [Moles/Vol] 23.6 mmol/L 21.0-32.0 [facility] Chloride assayOrdered By: Farzana Boogie on 01-05-2025 Chloride [Moles/Vol] 104 mmol/L 98-108 [facility] Glomerular filtration rate ( GFR) estimation/1.73 sq m using serum, plasma, or whole bOrdered By: Mendoza Boogie on 01-05-2025 GFR/1.73 sq M.predicted among non-blacks MDRD (S/P/Bld) [Vol rate/Area] 59 mL/min/{1.73_m2} Low >60 [facility] Comment on above: mL/min/1.73m2 CKD-EP I Creatinine Equation (2020) Potassium measurement (mass/ volume)Ordered By: Mendoza Boogie on 01-05-2025 Potassium (Unsp spec) [Mass/Vol] 4.5 mmol/L 3.3-5.1 [facility] Serum creatinine measurement (mass/volume)Ordered By: Mendoza Boogie on 01-05-2025 Creatinine [Mass/Vol] 1.00 mg/dL 0.70-1.20 [facility] Serum glucose measurement (m ass/volume)Ordered By: Mendoza Boogie on 01-05-2025 Glucose [Mass/Vol] 97 mg/dL 70-99 [facility] Serum or plasma calcium jillian urement (mass/volume)Ordered By: Mendoza Boogie on 01-05-2025 Calcium [Mass/Vol] 9.4 mg/dL 7.6-11.0 [facility] Serum or plasma urea nitroge n measurement (mass/volume)Ordered By: Mendoza Boogie on 01-05-2025 Urea nitrogen [Mass/Vol] 31 mg/dL High 4-19 [facility] Sodium levelOrdered By: Ten Boogie on 01-05-2025 Sodium [Moles/Vol] 138 mmol/L 133-145 [facility] Cardiology Visit Reporton Cardiology Visit Report [facility] [place], [place] [address] OFFICE VISIT Date of Service: 12/22/24 MR#: [id number] Acct: [id number] Name: KARLA CAI Rep #: [id number] : 1950 Provider: WILY Ortega Age/Sex: 74/F Location: [facility] Status: Signed HPI HPI History of Present [...] Visit Reasons: 2 M FU PER MMM Pharmacy Technician Trainee Required: No Is patient in pain?: No [...] BID 03/11/24 12/22/24 His tory mg-copper 1 sb-kvwyyv-ismbxd capsule (PreserVision AREDS-2) aspirin 81 mg tablet,delayed [...] Family History (more content not included)... Normal [facility] Chest PA and Lateralon 12-21 Chest PA and Lateral [facility] Imaging Services [address] [place], [place] [address] Chest PA and Lateral MR#: [id number] Acct: [id number] Name: KARLA CAI Rep #: [id number] : 1950 F 74 From: Hung Campbell MD PCP: Dr. Jae Belcher MD Status: REG CLI Study: Chest PA and Lateral Date of Exam: 12/21/24 Exam# [id number] Ordering Dr: Mendoza Boogie PA PA PROCEDURE: CHEST PA AND LATERAL 12/21/2024 [...] The lungs otherwise appear clear. Reading Location: [id number] CC: Dr. Jae Belcher MD; WILY Hernandez Help Desk Specialist: Signed Normal [facility] Chest Insp/Exp 2 Viewon 11-07 Chest Insp/Exp 2 View [facility] Imaging Services [address] [place], [place] [address] [phone] Chest Insp/Exp 2 View MR#: [id number] Acct: [id number] Name: KARLA CAI Rep #: [id number] : 1950 F 73 From: Tan lechuga MD PCP: Dr. Jae Belcher MD Status: REG CLI Study: Chest Insp/Exp 2 View Date of Exam: 11/16/24 Exam# [id number] Ordering Dr: Tan Willis PROCEDURE: CHEST INSP/EXP [...] pneumothorax. Residual left pleural-parenchymal changes. Reading Location: [place] [address] CC: Dr. Tan Willis MD; Dr. Jae Belcher MD Help Desk Specialist: Signed Normal [facility] Thoracentesis W USon 025 Thoracentesis W US [facility] Imaging Services [address] [place] [address] Thoracentesis W US MR#: [id number] Acct: [id number] Name: KARLA CAI Rep #: [id number] : 1950 F 73 From: Tan lechuga MD PCP: Dr. Jae Belcher MD Status: REG CLI Study: Thoracentesis W Date of Exam: 11/16/24 Exam# [id number] Ordering Dr: Mendoza Boogie PROCEDURE: THORACENTESIS W [...] pleural space was performed with a 5 Comoran catheter. 650 mL of blood-tinged fluid was aspirated. The patient tolerated the procedure well. COMPARISON: None. FINDINGS: Right pleural effusion. US/Thoracentesis W US IMPRESSION: Successful right thoracentesis without immediate complication. The patient tolerated the procedure well. Reading Location: [place] [address] CC: Dr. Jae Belcher MD; WILY Hernandez Help Desk Specialist: Signed Normal [facility] Chest Insp/Exp 2 Viewon Chest Insp/Exp 2 View [facility] Imaging Services [address] [place] [address] Chest Insp/Exp 2 View MR#: [id number] Acct: [id number] Name: KARLA CAI Rep #: [id number] : 1950 F 73 From: Roman Diana MD PCP: Dr. 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 Left pleural effusion. Reading Location: [facility] CC: MEAT SERVICE TEAM MEMBERLavinia Garvey; Dr. Jae Belcher MD Help Desk Specialist: Signed Normal [facility] Operative Reporton Operative Report [facility] Medical Records Department [address] [place] [address] Operative Report 11/12/24 1254 MR#: [id number] Acct: [id number] Name: KARLA CAI Rep #: [id number] : 1950 73 From: Lisbeth GONZALES PCP: Dr. Jae Belcher MD Status:REG CLI Location: US Problems Associated Problem List Diagnoses (1) Bilateral pleural effusion: Multi Select Codes Radiology Radiology US Procedures: 22681 Thoracentesis Operative Report (Standard) Operative Information Date of Procedure: 11/12/24 Pre-Operative Diagnosis: Bilateral pleural effusion Post-Operative Diagnosis: Bilateral pleural effusion Surgery/Procedure Performed: Ultrasound-guided thoracentesis enterprise sales person: No Type of Anesthesia: Local Procedure Start [...] local anesthesia. Under ultrasound guidance, a 5- Comoran thoracentesis needle/catheter system was advanced into the [...] Jae Belcher MD; WILY Hernandez Signed Normal [facility] BUN/creatinine ratioOrdered By: Mendoza Boogie on 11-09-2024 Urea nitrogen/Creatinine [Mass ratio] 27.6 mg/mg High [facility] Basic Metabolic Profile (BMP )on 11-09-2024 Anion gap [Moles/Vol] 14 mmol/L Normal 5-15 [facility] Comment on above: Performed By: #### L 500.2500 ####[facility] [address] [place], [address] BUN/CRE 27.6 RATIO High [facility] Comment on above: Performed By: #### L 500.2500 ####[facility] [address] [place], [address] Calcium [Mass/Vol] 9.9 mg/dL Normal 7.6-11.0 [facility] Comment on above: Performed By: #### L 500.2500 ####[facility] [address] [place], [address] Chloride [Moles/Vol] 105 mmol/L Normal 96-108 [facility] Comment on above: Performed By: #### L 500.2500 ####[facility] [address] [place], [address] CO2 [Moles/Vol] 20.7 mmol/L Low 22.0-29.0 [facility] Comment on above: Performed By: #### L 500.2500 ####[facility] [address] [place], [address] Creatinine [Mass/Vol] 0.91 mg/dL Normal 0.70-1.20 [facility] Comment on above: Performed By: #### L 500.2500 ####[facility] [address] [place], [address] GFR/1.73 sq M.predicted among non-blacks MDRD (S/P/Bld) [Vol rate/Area] 66 mL/min/{1.73_m2} Normal >60 [facility] Comment on above: Result Comment: mL/m in/1.73m2 CKD-EPI Creatinine Equation (2020) Performed By: #### L 500.2500 ####[facility] [address] [place], [address] Glucose [Mass/Vol] 119 mg/dL High 70-99 [facility] Comment on above: Performed By: #### L 500.2500 ####[facility] [address] [place], [address] Potassium [Moles/Vol] 4.1 mmol/L Normal 3.3-5.1 [facility] Comment on above: Performed By: #### L 500.2500 ####[facility] [address] [place], [address] Sodium [Moles/Vol] 140 mmol/L Normal 133-145 [facility] Comment on above: Performed By: #### L 500.2500 ####[facility] [address] [place], [address] Urea nitrogen [Mass/Vol] 25 mg/dL High 4-19 [facility] Comment on above: Performed By: #### L 500.2500 ####[facility] [address] [place], [place], [address] Carbon dioxide measurementOr dered By: Mendoza Boogie on 11-09-2024 CO2 [Moles/Vol] 20.7 mmol/L Low 22.0-29.0 [facility] Chest PA and Lateralon 11-09 Chest PA and Lateral [facility] Imaging Services [address] [place], [place] [address] Chest PA and Lateral MR#: [id number] Acct: [id number] Name: KARLA CAI Rep #: [id number] : 1950 F 73 From: Ricky Queen MD PCP: Dr. Jae Belcher MD Status: REG CLI Study: Chest PA and Lateral Date of Exam: 11/09/24 Exam# [id number] Ordering Dr: Mendoza Boogie PA EXAM: XR [...] pneumonia. 2. Bilateral pleural effusions. Reading [facility] CC: Dr. Jae Belcher MD; WILY Hernandez Help Desk Specialist: Signed Normal [facility] Chloride measurementOrdered By: Mendoza Boogie on 11-09-2024 Chloride [Moles/Vol] 105 mmol/L 96-108 [facility] GFR/1.73 sq M.predicted maribel g non-blacks MDRD (S/P/Bld) [Vol rate/Area]Ordered By: Mendoza Boogie on 11-09-2024 Estimated GFR (MDRD) Non-Af Amer 66 >60 [facility] Comment on above: mL/min/1.73m2 CKD-EP I Creatinine Equation (2020) Glomerular filtration rate ( GFR) estimation/1.73 sq m using serum, plasma, or whole bOrdered By: Mendoza Boogie on 11-09-2024 GFR/1.73 sq M.predicted among non-blacks MDRD (S/P/Bld) [Vol rate/Area] 66 mL/min/{1.73_m2} >60 [facility] Comment on above: mL/min/1.73m2 CKD-EP I Creatinine Equation (2020) Serum creatinine measurement (mass/volume)Ordered By: Mendoza Boogie on 11-09-2024 Creatinine [Mass/Vol] 0.91 mg/dL 0.70-1.20 [facility] Serum glucose measurement (m ass/volume)Ordered By: Mendoza Boogie on 11-09-2024 Glucose [Mass/Vol] 119 mg/dL High 70-99 [facility] Serum or plasma anion gap de termination (moles/volume)Ordered By: Mendoza Boogie on 11-09-2024 Anion gap [Moles/Vol] 14 mmol/L 5-15 [facility] Serum or plasma calcium jillian urement (mass/volume)Ordered By: Mendoza Boogie on 11-09-2024 Calcium [Mass/Vol] 9.9 mg/dL 7.6-11.0 [facility] Serum or plasma potassium me asurementOrdered By: Mendoza Boogie on 11-09-2024 Potassium [Moles/Vol] 4.1 mmol/L 3.3-5.1 [facility] Serum or plasma sodium measu rement (moles/volume)Ordered By: Mendoza Boogie on 11-09-2024 Sodium [Moles/Vol] 140 mmol/L 133-145 [facility] Serum or plasma urea nitroge n measurement (mass/volume)Ordered By: Mendoza Boogie on 11-09-2024 Urea nitrogen [Mass/Vol] 25 mg/dL High 4-19 [facility] Cardiac rehabilitation evalu ation reportOrdered By: Ari De Los Santos on 11-03-2024 Study report [facility] Cardiac Rehab [address] [place] [address] CR - History & Physical MR#: [id number] Acct: [id number] Name: KARLA CAI Rep #:[id number] : [...] 1 tab PO BID 03/11/24 mg-copper 1 hx-dvpqhk-idmxij capsule (PreserVision AREDS-2) aspirin 81 mg tablet,delayed [...] Negative Advanced Directives Advanced Directives Power of Fixed Route Bus Operator: Yes Living Will: Yes Advance Directives Information [...] Risk Guidelines: Lo (more content not included)... [facility] No Panel InformationOrdered By: Ari De Los Santos on 11-03-2024 [facility] Cardiac Rehab [address] [place] [address] CR - Individual Treatment Plan MR#: [id number] Acct: [id number] Name: KARLA CAI Rep #:[id number] : 1950 73 From: Ari Moscoso BS, RVT PCP: Dr. Jae Blecher MD DOS: Diagnosis General Information Admitting Diagnosis: [...] Referral to Physical Therapy: No [facility] Case Management: No Fall Risk Assessed:: Yes Assistive Devices:: None Exercise - Initial Assessment Visit Date of Eval: 11/02/24 (initial eval ) Mets: Pre-: >3 METS for 30 minutes by discharge, >5 METS for 30 minutes by discharge, >7 METS for 30 minutes by discharge and Unable to meet goal due to: (see comment below) Physician Prescribed Exercise Modalities: Treadmill, Syncbakn Airdyne AD-7, TweetworksFit Stepper, StepUp Pro-II Ergometer and StepUp Lateral Tape Machine Tailer Frequency: 3x/week for 12 weeks [36 sessions] [...] BMI/Morbid Obesity BMI> (more content not included)... [facility] CR - History AND Physicalon 11-02-2024 CR - History & Physical [facility] Cardiac Rehab [address] [place] [address] CR - History Physical MR#: [id number] Acct: [id number] Name: KARLA CAI Rep #: [id number] : 1950 73 From: Ari Moscoso BS, [...] 1 tab PO BID 03/11/24 mg-copper 1 nz-jwvwdc-pxkfmj capsule (PreserVision AREDS-2) aspirin 81 mg tablet,delayed [...] Negative Advanced Directives Advanced Directives Power of Fixed Route Bus Operator: Yes Living Will: Yes Advance Directives Information [...] 73 Hyper (more content not included)... Normal [facility] 12 Lead EKG performed by [facility] on 10-29-2024 12 Lead EKG performed by [facility] [address] [place] [address] 12 Lead EKG performed by [facility] 10/29/24 1027 MR#: [id number] Acct: [id number] Name: KARLA CAI Rep #: [id number] : 1950 73 From: Mendoza Christie Attending Dr: WILY Hernandez Status: DEP AMB Ordering Dr: Mendoza Boogie Date: 10/11 Location: [facility] Sex: F C Admitted: BMS/12 Lead EKG performed by [facility] ECG Report Interpretation ----Sinus Rhythm -Left atrial enlargement. -Anterior infarct -age undetermined. ABNORMAL Electronically signed on 10/30/2024 at 12:00 by Tulio [employer] Version [id number] 10/30/24 1205 Date Mendoza JULIEN CC: Dr. Jae Belcher MD Date Dictated: 10/29/24 1027 Date Transcribed: 10/29/24 102 Help Desk Specialist: GO Signed Normal [facility] Cardiology Visit Reporton Cardiology Visit Report [facility] [address] [place] [address] OFFICE VISIT Date of Service: 10/29/24 MR#: [id number] Acct: [id number] Name: KARLA CAI Rep #: [id number] : 1950 Provider: WILY Ortega Age/Sex: 73/F Location: [facility] Status: Signed HPI HPI History of Present [...] Reasons: 1 M FU OK PER MMM Pharmacy Technician Trainee Required: No Is patient in pain?: No [...] BID 03/11/24 10/29/24 His tory mg-copper 1 zv-lwmzfz-ylnesk capsule (PreserVision AREDS-2) aspirin 81 mg tablet,delayed [...] 09/16/24 @ (more content not included)... Normal [facility] ALBUMIN/CREATININE RATIO, UR INEon 10-28-2024 Albumin DL <= 20 mg/L (U) [Mass/Vol] 87.4 mg/L Normal [facility] Comment on above: Order Comment: Speci men Type: BLOOD SPECIMEN Ordering Facility: [facility] Address: [address] [place] [address] Performed By: #### 5 5454-3 #### [facility] CLIA [id number] [address] [place] [address] [place] Albumin/Creatinine (U) [Mass ratio] 30 mg/g High <30 [facility] Comment on above: Order Comment: Speci men Type: BLOOD SPECIMEN Ordering Facility: [facility] Address: [address] [place] [address] Result Comment: Adul t Male and Female Nephrotic Criteria: <30 mg/g is considered normal to mildly increased 30-300 mg/g is considered moderately increased >300 mg/g is considered severely increased KDIGO. (2013). KDIGO 2012 Clinical Practice Guideline for the Evaluation and Management of Chronic Kidney Disease. Official Journal of the International Society of Nephrology, 3(1), 1-150. Performed By: #### 5 5454-3 #### [facility] CLIA [id number] [address] [place], [place] [id number] [place] Creatinine (U) [Mass/Vol] 287.1 mg/dL Normal 20.0-300.0 [facility] Comment on above: Order Comment: Speci men Type: BLOOD SPECIMEN Ordering Facility: [facility] Address: [address] [place] [address] Performed By: #### 5 5454-3 #### [facility] CLIA [id number] [address] [place] [address] [place] CBC W Auto Differential pane l (Bld)on 10-28-2024 Basophils (Bld) [#/Vol] 0.06 10*3/uL Normal <0.11 [facility] Comment on above: Order Comment: Speci men Type: BLOOD SPECIMEN Ordering Facility: [facility] Address: [address] [place] [address] Performed By: #### 5 5454-3 #### [facility] CLIA [id number] [address] [place] [address] [place] Basophils/100 WBC (Bld) 0.7 % Normal [facility] Comment on above: Order Comment: Speci men Type: BLOOD SPECIMEN Ordering Facility: [facility] Address: [address] [place] [address] Performed By: #### 5 5454-3 #### [facility] CLIA [id number] [address] [place] [address] [place] Differential cell count method Nom (Bld) Auto Normal [facility] Comment on above: Order Comment: Speci men Type: BLOOD SPECIMEN Ordering Facility: [facility] Address: [address] [place] [address] Performed By: #### 5 5454-3 #### [facility] CLIA [id number] [address] [place] [address] [place] Eosinophils (Bld) [#/Vol] 0.21 10*3/uL Normal <0.46 [facility] Comment on above: Order Comment: Speci men Type: BLOOD SPECIMEN Ordering Facility: [facility] Address: [address] [place] [address] Performed By: #### 5 5454-3 #### [facility] CLIA [id number] [address] [place] [address] [place] Eosinophils/100 WBC (Bld) 2.6 % Normal [facility] Comment on above: Order Comment: Speci men Type: BLOOD SPECIMEN Ordering Facility: [facility] Address: [address] [place] [address] Performed By: #### 5 5454-3 #### [facility] CLIA [id number] [address] [place] [address] [place] Erythrocyte distribution width (RBC) [Ratio] 16.9 % High 11.5-15.0 [facility] Comment on above: Order Comment: Speci men Type: BLOOD SPECIMEN Ordering Facility: [facility] Address: [address] [place] [address] Performed By: #### 5 5454-3 #### [facility] CLIA [id number] [address] [place] [address] [place] Hematocrit (Bld) [Volume fraction] 42.0 % Normal 36.0-46.0 [facility] Comment on above: Order Comment: Speci men Type: BLOOD SPECIMEN Ordering Facility: [facility] Address: [address] [place] [address] Performed By: #### 5 5454-3 #### [facility] CLIA [id number] [address] [place] [address] [place] Hemoglobin (Bld) [Mass/Vol] 13.0 g/dL Normal 11.5-15.5 [facility] Comment on above: Order Comment: Speci men Type: BLOOD SPECIMEN [facility] [facility] Address: [address] [place] [address] Performed By: #### 5 5454-3 #### [facility] CLIA [id number] [address] [place] [address] [place] Immature granulocytes (Bld) [#/Vol] 0.03 10*3/uL Normal <0.10 [facility] Comment on above: Order Comment: Speci men Type: BLOOD SPECIMEN [facility]ing Facility: [facility] Address: [address] [place] [address] Performed By: #### 5 5454-3 #### [facility] CLIA [id number] [address] [place] [address] [place] Immature granulocytes/100 WBC (Bld) 0.4 % Normal [facility] Comment on above: Order Comment: Speci men Type: BLOOD SPECIMEN Ordering Facility: [facility] Address: [address] [place] [address] Performed By: #### 5 5454-3 #### [facility] CLIA [id number] [address] [place] [address] [place] Lymphocytes (Bld) [#/Vol] 2.38 10*3/uL Normal 1.00-4.00 [facility] Comment on above: Order Comment: Speci men Type: BLOOD SPECIMEN Ordering Facility: [facility] Address: [address] [place] [address] Performed By: #### 5 5454-3 #### [facility] CLIA [id number] [address] [place] [address] [place] Lymphocytes/100 WBC (Bld) 29.0 % Normal [facility] Comment on above: Order Comment: Speci men Type: BLOOD SPECIMEN Ordering Facility: [facility] Address: [address] [place] [address] Performed By: #### 5 5454-3 #### [facility] CLIA [id number] [address] [place] [address] [place] MCH (RBC) [Entitic mass] 28.6 pg Normal 26.0-34.0 [facility] Comment on above: Order Comment: Speci men Type: BLOOD SPECIMEN Ordering Facility: [facility] Address: [address] [place] [address] Performed By: #### 5 5454-3 #### [facility] CLIA [id number] [address] [place] [address] [place] MCHC (RBC) [Mass/Vol] 31.0 g/dL Normal 30.5-36.[address] [facility] Comment on above: Order Comment: Speci men Type: BLOOD SPECIMEN Ordering Facility: [facility] Address: [address] [place] [address] Performed By: #### 5 5454-3 #### [facility] CLIA [id number] [address] [place] [address] [place] MCV (RBC) [Entitic vol] 92.3 fL Normal 80.0-100.0 [facility] Comment on above: Order Comment: Speci men Type: BLOOD SPECIMEN Ordering Facility: [facility] Address: [address] [place] [address] Performed By: #### 5 5454-3 #### [facility] CLIA [id number] [address] [place] [address] [place] Monocytes (Bld) [#/Vol] 0.88 10*3/uL High <0.87 [facility] Comment on above: Order Comment: Speci men Type: BLOOD SPECIMEN Ordering Facility: [facility] Address: [address] [place] [address] Performed By: #### 5 5454-3 #### [facility] CLIA [id number] [address] [place] [address] [place] Monocytes/100 WBC (Bld) 10.7 % Normal C [facility] Comment on above: Order Comment: Speci men Type: BLOOD SPECIMEN Ordering Facility: [facility] Address: [address] [place] [address] Performed By: #### 5 5454-3 #### [facility] CLIA [id number] [address] [place] [address] [place] Neutrophils (Bld) [#/Vol] 4.66 10*3/uL Normal 1.45-7.50 [facility] Comment on above: Order Comment: Speci men Type: BLOOD SPECIMEN Ordering Facility: [facility] Address: [address] [place] [address] Performed By: #### 5 5454-3 #### [facility] CLIA [id number] [address] [place] [address] [place] Neutrophils/100 WBC (Bld) 56.6 % Normal [facility] Comment on above: Order Comment: Speci men Type: BLOOD SPECIMEN Ordering [facility]: [facility] Address: [address] [place] [address] Performed By: #### 5 5454-3 #### [facility] CLIA [id number] [address] [place] [address] [place] Nucleated RBC (Bld) [#/Vol] 10*3/uL Normal <0.01 [facility] Comment on above: Order Comment: Speci men Type: BLOOD SPECIMEN Ordering [facility]: [facility] Address: [address] [place] [address] Performed By: #### 5 5454-3 #### [facility] CLIA [id number] [address] [place] [address] [place] Nucleated RBC/100 WBC (Bld) [Ratio] 0.0 /100 WBC Normal [facility] Comment on above: Order Comment: Speci men Type: BLOOD SPECIMEN Ordering [facility]: [facility] Address: [address] [place] [address] Performed By: #### 5 5454-3 #### [facility] CLIA [id number] [address] [place] [address] [place] Platelet mean volume (Bld) [Entitic vol] 10.4 fL Normal 9.0-12.7 [facility] Comment on above: Order Comment: Speci men Type: BLOOD SPECIMEN Ordering [facility]: [facility] Address: [address] [place] [address] Performed By: #### 5 5454-3 #### [facility] CLIA [id number] [address] [place] [address] [place] Platelets (Bld) [#/Vol] 397 10*3/uL Normal 150-400 [facility] Comment on above: Order Comment: Speci men Type: BLOOD SPECIMEN Ordering [facility]: [facility] Address: [address] [place] [address] Performed By: #### 5 5454-3 #### [facility] CLIA [id number] [address] [place] [address] [place] RBC (Bld) [#/Vol] 4.55 10*6/uL Normal 3.90-5.20 [facility] Comment on above: Order Comment: Speci men Type: BLOOD SPECIMEN Ordering [facility]: [facility] Address: [address] [place] [address] Performed By: #### 5 5454-3 #### [facility] CLIA [id number] [address] [place] [address] [place] WBC (Bld) [#/Vol] 8.22 10*3/uL Normal 3.70-11.00 [facility] Comment on above: Order Comment: Speci men Type: BLOOD SPECIMEN [facility] Address: [address] [place] [address] Performed By: #### 5 5454-3 #### [facility] CLIA [id number] [address] [place] [address] [place] Comprehensive metabolic 2000 panelon 10-28-2024 Albumin [Mass/Vol] 4.0 g/dL Normal 3.9-4.9 [facility] Comment on above: Order Comment: Speci men Type: BLOOD SPECIMENOrdering Facility: [facility] Address: [address] [place] [address] Performed By: #### 2 4323-8, 2276-4, 05596-4 ####[facility] [id number] [place] [address] [place] ALP [Catalytic activity/Vol] 95 U/L Normal 34-123 [facility] Comment on above: Order Comment: Speci men Type: BLOOD SPECIMENOrdering Facility: [facility] Address: [address] [place] [address] Performed By: #### 2 4323-8, 2275-, 83943-5 ####[facility] [id number] [place] [address] [place] ALT [Catalytic activity/Vol] 24 U/L Normal 7-38 [facility] Comment on above: Order Comment: Speci men Type: BLOOD SPECIMENOrdering Facility: [facility] Address: [address] [place] [address] Performed By: #### 2 4323-8, 2275-12, ####[facility] [id number] [place] [address] [place] Anion gap [Moles/Vol] 11 mmol/L Normal 8-[address] [facility] Comment on above: Order Comment: Speci men Type: BLOOD SPECIMENOrdering Facility: [facility] Address: [address] [place] [address] Performed By: #### 2 4323-8, 2275-12, ####[facility] [id number] [place] [address] [place] AST [Catalytic activity/Vol] 27 U/L Normal 13-35 [facility] Comment on above: Order Comment: Speci men Type: BLOOD SPECIMENOrdering Facility: [facility] Address: [address] [place] [address] Performed By: #### 2 4323-8, 2275-12, 57308-6 ####[facility] [id number] [place] [address] [place] Bilirubin [Mass/Vol] 0.4 mg/dL Normal 0.2-1.3 [facility] Comment on above: Order Comment: Speci men Type: BLOOD SPECIMENOrdering Facility: [facility] Address: [address] [place] [id number] Performed By: #### 2 4323-8, 2275-4, 51246-7 ####[facility] [id number] [address] [address] [place] Calcium [Mass/Vol] 10.0 mg/dL Normal 8.5-10.2 [facility] Comment on above: Order Comment: Speci men Type: BLOOD SPECIMENOrdering Facility: [facility] Address: [address] [place], [place] [address] Performed By: #### 2 4323-8, 2275-12, 50436-1 ####[facility] [id number] [place] [address] [place] Chloride [Moles/Vol] 103 mmol/L Normal 98-107 [facility] Comment on above: Order Comment: Speci men Type: BLOOD SPECIMENOrdering Facility: [facility] Address: [address] [place], [place] [address] Performed By: #### 2 4323-8, 2275-12, 14158-3 ####[facility] [id number] [place] [address] [place] CO2 [Moles/Vol] 24 mmol/L Normal 22-30 [facility] Comment on above: Order Comment: Speci men Type: BLOOD SPECIMENOrdering Facility: [facility] Address: [address] [place] [id number] Performed By: #### 2 4323-8, 2275-4, 47823-1 ####[facility] [id number] [place] [address] [place] Creatinine [Mass/Vol] 0.99 mg/dL High 0.58-0.[address] [facility] Comment on above: Order Comment: Speci men Type: BLOOD SPECIMENOrdering Facility: [facility] Address: [address] [place] [address] Performed By: #### 2 4323-8, 2276-4, 12996-7 ####[facility] [id number] [place] [address] [place] Creatinine and Glomerular filtration rate.predicted panel (S/P/Bld) 60 mL/min/1.73m??? Normal >=60 [facility] Comment on above: Order Comment: Jethro bergman Type: BLOOD SPECIMENOrdering Facility: [facility] Address: [address] [place] [address] Result Comment: Inocencia mated Glomerular Filtration Rate [...] actual GFR. Performed By: #### 2 4323-8, 2276-4, 67404-1 ####[facility] [id number] [place] [address] [place] Glucose [Mass/Vol] 105 mg/dL High 74-99 [facility] Comment on above: Order Comment: Jethro bergman Type: BLOOD SPECIMENOrdering Facility: [facility] Address: [address] [place] [address] Result Comment: The [place] Diabetes Association (ADA) provides guidance for cutoff [...] Standards of Medical Care in Diabetes 2016, [place] Diabetes Association. Diabetes Care. 2016.39(Suppl 1). Performed By: #### 2 4323-8, 2275-, 01410-7 ####[facility] [id number] [address] [address] [place] Potassium [Moles/Vol] 4.4 mmol/L Normal 3.7-5.[address] [facility] Comment on above: Order Comment: Speci men Type: BLOOD SPECIMENOrdering Facility: [facility] Address: [address] [place] [address] Performed By: #### 2 4323-8, 2275-, 56862-2 ####[facility] [id number] [place] [address] [place] Protein [Mass/Vol] 7.4 g/dL Normal 6.3-8.0 [facility] Comment on above: Order Comment: Speci men Type: BLOOD SPECIMENOrdering Facility: [facility] Address: [address] [place] [address] Performed By: #### 2 4323-8, 2275-12, 93217-8 ####[facility] [id number] [place] [address] [place] Sodium [Moles/Vol] 138 mmol/L Normal 136-144 [facility] Comment on above: Order Comment: Speci men Type: BLOOD SPECIMENOrdering Facility: [facility] Address: [address] [place] [address] Performed By: #### 2 4323-8, 2275-12, 27447-2 ####[facility] [id number] [address] [address] [place] Urea nitrogen [Mass/Vol] 34 mg/dL High 7-21 [facility] Comment on above: Order Comment: Speci men Type: BLOOD SPECIMENOrdering Facility: [facility] Address: [address] [place], [place] [address] Performed By: #### 2 4323-8, 2275-12, 31518-9 ####[facility] [id number] [place] [address] [place] Ferritin SerPl-mCncon 2024 Ferritin [Mass/Vol] 107.0 ng/mL Normal 14.7-205.1 [facility] Comment on above: Order Comment: Speci pacheco Type: BLOOD SPECIMENOrdering Facility: [facility] Address: [address] [place] [address] Performed By: #### 2 4323-8, 6-4, 57181-5 ####[facility] [id number] [place] [address] [place] HbA1c (Bld)on 10-28-2024 Average glucose Estimated from glycated hemoglobin (Bld) [Mass/Vol] 105 mg/dL Normal [facility] Comment on above: Order Comment: [facility] Type: BLOOD SPECIMEN [facility] Address: [address] [place] [address] Result Comment: eAG: (Estimated average glucose) is a calculated value from HgbA1c and is procurement representative of the average blood glucose level in the last 2-3 month period. Performed By: #### 5 5454-3 #### [facility] CLIA [id number] [address] [place] [address] [place] HbA1c (Bld) [Mass fraction] 5.3 % Normal 4.3-5.6 [facility] Comment on above: Order Comment: Jethro men Type: BLOOD SPECIMEN [facility] Address: [address] [place] [address] Result Comment: Amer [place] Diabetes Association guidelines indicate that patients with HgbA1c in the range 5.7-6.4% are at increased risk for development of diabetes, and intervention by lifestyle modification may be beneficial. HgbA1c greater or equal to 6.5% is considered diagnostic of diabetes. Performed By: #### 5 5454-3 #### [facility] CLIA [id number] [address] [place] [address] [place] Lipid 1996 panelon 5 Cholesterol [Mass/Vol] 142 mg/dL Normal <200 [facility] Comment on above: Order Comment: Speci men Type: BLOOD SPECIMENOrdering Facility: [facility] Address: [address] [place] [address] Result Comment: <200 mg/dL, Desirable 200-239 mg/dL, Borderline high >239 mg/dL, High Performed By: #### 2 4323-8, 6-4, 47002-1 ####[facility] [id number] [address] [place] Cholesterol in HDL [Mass/Vol] 45 mg/dL Normal >39 [facility] Comment on above: Order Comment: Pati men Type: BLOOD SPECIMENOrdering Facility: [facility] Address: [address] [place] [address] Result Comment: 40-5 9 mg/dL, Acceptable >59 mg/dL, High: Negative risk factor for coronary heart disease <40 mg/dL, Low: Positive risk factor for coronary heart disease Performed By: #### 2 4323-8, 2275-4, 54529-9 ####[facility] [id number] [place] [address] [place] Cholesterol in LDL [Mass/Vol] 77 mg/dL Normal <100 [facility] Comment on above: Order Comment: Speci men Type: BLOOD SPECIMENOrdering Facility: [facility] Address: [address] [place] [address] Result Comment: <100 mg/dL, Optimal 100-129 mg/dL, Near optimal/above optimal 130-159 mg/dL, Borderline high 160-189 mg/dL, High >189 mg/dL, Very high Secondary prevention optimal LDL Cholesterol levels are recommended to be < 70 mg/dL Performed By: #### 2 4323-8, 6-4, 91178-6 ####[facility] [id number] [place] [id number] Cholesterol in LDL/Cholesterol in HDL [Mass ratio] 1.71 {ratio} Normal <2.54 [facility] Comment on above: Order Comment: Jethro bergman Type: BLOOD SPECIMENOrdering Facility: [facility] Address: [address] [place] [address] Result Comment: Juju sutton: 1. National Cholesterol Education Program ATP III Guideline At-A-Glance Quick Desk Reference: National Heart, Lung, and Blood Pauline. National Institutes of Health. 2001: NIH Publication No. 01-3305. 2. An International Atherosclerosis Society position paper: global recommendations for the management of dyslipidemia: executive summary, Atherosclerosis. 2014: 232(2):410-413. Performed By: #### 2 4323-8, 2275-12, 77540-6 ####[facility] [id number] [address] [place] Cholesterol in VLDL [Mass/Vol] 20 mg/dL Normal <30 [facility] Comment on above: Order Comment: Jethro pacheco Type: BLOOD SPECIMENOrdering Facility: [facility] Address: [address] [place] [address] Performed By: #### 2 4323-8, 2275-12, 86625-0 ####[facility] [id number] [address] [facility] Cholesterol non HDL [Mass/Vol] 97 mg/dL Normal <130 [facility] Comment on above: Order Comment: Patalannah bergman Type: BLOOD SPECIMENOrdering Facility: [facility] Address: [address] [place] [address] Result Comment: <130 mg/dL, Optimal 130-159 mg/dL, Near optimal/above optimal 160-189 mg/dL, Borderline high 190-219 mg/dL, High >219 mg/dL, Very high Secondary prevention optimal non HDL Cholesterol levels are recommended to be <100 mg/dL Performed By: #### 2 4323-8, 2275-4, 49709-6 ####[facility] [id number] [address] Cholesterol.total/Choles terol in HDL [Mass ratio] 3.16 {ratio} Normal <5.10 [facility] Comment on above: Order Comment: Speci men Type: BLOOD SPECIMENOrdering Facility: [facility] Address: [address] [place] [address] Performed By: #### 2 4323-8, 2276-4, 42437-4 ####[facility] [id number] [address] FASTING TIME 12 hrs Normal [facility] Comment on above: Order Comment: Speci men Type: BLOOD SPECIMENOrdering Facility: [facility] Address: [address] [place] [address] Performed By: #### 2 4323-8, 2276-4, 75731-6 ####[facility] [id number] [address] [facility] Triglyceride [Mass/Vol] 100 mg/dL Normal <150 C [facility] Comment on above: Order Comment: Speci men Type: BLOOD SPECIMENOrdering Facility: [facility] Address: [address] [place] [address] Result Comment: <150 mg/dL, Normal 150-199 mg/dL, Borderline high 200-499 mg/dL, High >499 mg/dL, Very high Performed By: #### 2 4323-8, 2276-4, 08597-1 ####[facility] [id number] [address] [place] CNOVon 10-13-2024 CNOV Office Visit (INTMWS ) KARLA CAI ([id number]) 1950 F Date Time Provider Department 10/13/24 12:20 PM SAVANNA KOTHARI INTMWS During your visit today, we recorded the following information about you: Pulse Respiration Blood pressure Weight 80/minute 12/minute 114/70 69.1 kg Height 1.72 m Savanna Kothari APRN.CNP 10/13/2024 12:52 PM Signed Karla Cai is a 73 year old [...] PCP - General (Internal Medicine) Savanna Kothari APRN.CNP as Alarm Service Technician (Internal Medicine) Dr. Fleming-podiatry Dr. Moon-general surgeon Outside specialists seen: [facility], [facility] [place]-Dr. Goldberg, Medical/Family history review Reviewed and updated [...] Controlled - Continue current medications Savanna Kothari APRN.ENVIRONMENTAL SYSTEMS COORDINATOR Medical Decision Making: Problems: Moderate: 2+ stable chronic illnesses Risk: Low: Low risk from testing/treatment Medical Decision Making Level: 3 - Low Savanna Kothari, EDWARD.ENVIRONMENTAL SYSTEMS COORDINATOR 10/13/2024 12:44 PM Addendum Screening schedule The following prevention plan is recommended: DTaP,Tdap,Td Vaccine(2 - Td or Tdap) due on 06/21/2019 WHAT YOU CAN DO TO PREVENT FALLS Many falls can be prevented. By making some changes, you can lower your chances of falling. Four t (more content not included)... Normal [facility] ALBUMIN/CREATININE RATIO, UR INEon 10-12-2024 Albumin DL <= 20 mg/L (U) [Mass/Vol] 49.4 mg/L Normal [facility] Comment on above: Order Comment: Speci men Type: URINE SPECIMENOrdering Facility: [facility] Address: [address] [place] [address] Performed By: #### U ACR ####[facility] [id number] [place] [address] [place] Albumin/Creatinine (U) [Mass ratio] 35 mg/g High <30 [facility] Comment on above: Order Comment: Speci men Type: URINE SPECIMENOrdering Facility: [facility] Address: [address] [place] [address] Result Comment: Adul t Male and Female Nephrotic Criteria: <30 mg/g is considered normal to mildly increased 30-300 mg/g is considered moderately increased >300 mg/g is considered severely increased KDIGO. (2013). KDIGO 2012 Clinical Practice Guideline for the Evaluation and Management of Chronic Kidney Disease. Official Journal of the International Society of Nephrology, 3(1), 1-150. Performed By: #### U ACR ####[facility] [id number] [place] [address] [place] Creatinine (U) [Mass/Vol] 139.6 mg/dL Normal 20.0-300.0 [facility] Comment on above: Order Comment: Speci men Type: URINE SPECIMENOrdering Facility: [facility] Address: [address] [place] [address] Performed By: #### U ACR ####[facility] [id number] [place] [address] [place] CBC panel Auto (Bld)on 10-12 Erythrocyte distribution width (RBC) [Ratio] 17.9 % High 11.5-15.0 [facility] Comment on above: Order Comment: Speci men Type: BLOOD SPECIMEN [facility] Address: [address] [place] [address] Performed By: #### 5 5454-3 #### [facility] CLIA [id number] [address] [place] [address] [place] Hematocrit (Bld) [Volume fraction] 40.4 % Normal 36.0-46.0 [facility] Comment on above: Order Comment: Speci men Type: BLOOD SPECIMEN [facility] Address: [address] [place] [address] Performed By: #### 5 5454-3 #### [facility] CLIA [id number] [address] [place] [address] [place] Hemoglobin (Bld) [Mass/Vol] 12.9 g/dL Normal 11.5-15.5 [facility] Comment on above: Order Comment: Speci men Type: BLOOD SPECIMEN [facility] Address: [address] [place] [address] Performed By: #### 5 5454-3 #### [facility] CLIA [id number] [address] [place] [address] [place] MCH (RBC) [Entitic mass] 29.1 pg Normal 26.0-34.0 [facility] Comment on above: Order Comment: Speci men Type: BLOOD SPECIMEN [facility] Address: [address] [place] [address] Performed By: #### 5 5454-3 #### [facility] CLIA [id number] [address] [place] [address] [place] MCHC (RBC) [Mass/Vol] 31.9 g/dL Normal 30.5-36.[address] [facility] Comment on above: Order Comment: Speci men Type: BLOOD SPECIMEN [facility] Address: [address] [place] [address] Performed By: #### 5 5454-3 #### [facility] CLIA [id number] [address] [place] [address] [place] MCV (RBC) [Entitic vol] 91.2 fL Normal 80.0-100.0 C [facility] Comment on above: Order Comment: Speci men Type: BLOOD SPECIMEN [facility] Address: [address] [place] [address] Performed By: #### 5 5454-3 #### [facility] CLIA [id number] [address] [place] [address] [place] Nucleated RBC (Bld) [#/Vol] 10*3/uL Normal <0.01 [facility] Comment on above: Order Comment: Speci men Type: BLOOD SPECIMEN [facility] Address: [address] [place] [address] Performed By: #### 5 5454-3 #### [facility] CLIA [id number] [address] [place] [address] [place] Platelet mean volume (Bld) [Entitic vol] 10.3 fL Normal 9.0-12.7 [facility] Comment on above: Order Comment: Speci men Type: BLOOD SPECIMEN [facility] Address: [address] [place] [address] Performed By: #### 5 5454-3 #### [facility] CLIA [id number] [address] [place] [address] [place] Platelets (Bld) [#/Vol] 497 10*3/uL High 150-400 [facility] Comment on above: Order Comment: Speci men Type: BLOOD SPECIMEN [facility] Address: [address] [place] [address] Performed By: #### 5 5454-3 #### [facility] CLIA [id number] [address] [place] [address] [place] RBC (Bld) [#/Vol] 4.43 10*6/uL Normal 3.90-5.20 [facility] Comment on above: Order Comment: Speci men Type: BLOOD SPECIMEN Ordering Facility: [facility] Address: [address] [place] [address] Performed By: #### 5 5454-3 #### [facility] CLIA [id number] [address] [place] [address] [place] WBC (Bld) [#/Vol] 7.37 10*3/uL Normal 3.70-11.00 [facility] Comment on above: Order Comment: Speci men Type: BLOOD SPECIMEN Ordering Facility: [facility] Address: [address] [place] [address] Performed By: #### 5 5454-3 #### [facility] CLIA [id number] [address] [place] [address] [place] Comprehensive metabolic 2000 panelon 10-12-2024 Albumin [Mass/Vol] 4.0 g/dL Normal 3.9-4.9 [facility] Comment on above: Order Comment: Speci men Type: BLOOD SPECIMEN Ordering Facility: [facility] Address: [address] [place] [address] Performed By: #### 5 5454-3 #### [facility] CLIA [id number] [address] [place] [address] [place] ALP [Catalytic activity/Vol] 100 U/L Normal 34-123 [facility] Comment on above: Order Comment: Speci men Type: BLOOD SPECIMEN Ordering Facility: [facility] Address: [address] [place], [place] [address] Performed By: #### 5 5454-3 #### [facility] CLIA [id number] [facility] [place] [address] [place] ALT [Catalytic activity/Vol] 27 U/L Normal 7-38 [facility] Comment on above: Order Comment: Speci men Type: BLOOD SPECIMEN Ordering Facility: [facility] Address: [address] [place] [address] Performed By: #### 5 5454-3 #### [facility] CLIA [id number] [address] [place] [address] [place] Anion gap [Moles/Vol] 14 mmol/L Normal 8-[address] [facility] Comment on above: Order Comment: Speci men Type: BLOOD SPECIMEN Ordering Facility: [facility] Address: [address] [place] [address] Performed By: #### 5 5454-3 #### [facility] CLIA [id number] [address] [place] [address] [place] AST [Catalytic activity/Vol] 28 U/L Normal 13-35 [facility] Comment on above: Order Comment: Speci men Type: BLOOD SPECIMEN Ordering Facility: [facility] Address: [address] [place] [address] Performed By: #### 5 5454-3 #### [facility] CLIA [id number] [address] [place] [address] [place] Bilirubin [Mass/Vol] 0.3 mg/dL Normal 0.2-1.3 [facility] Comment on above: Order Comment: Speci men Type: BLOOD SPECIMEN Ordering Facility: [facility] Address: [address] [place] [address] Performed By: #### 5 5454-3 #### [facility] CLIA [id number] [address] [place] [address] [place] Calcium [Mass/Vol] 9.3 mg/dL Normal 8.5-10.2 [facility] Comment on above: Order Comment: Speci men Type: BLOOD SPECIMEN Ordering Facility: [facility] Address: [address] [place] [address] Performed By: #### 5 5454-3 #### [facility] CLIA [id number] [address] [place] [address] [place] Chloride [Moles/Vol] 103 mmol/L Normal 98-107 [facility] Comment on above: Order Comment: Speci men Type: BLOOD SPECIMEN Ordering Facility: [facility] Address: [address] [place] [address] Performed By: #### 5 5454-3 #### [facility] CLIA [id number] [address] [place] [address] [place] CO2 [Moles/Vol] 21 mmol/L Low 22-30 [facility] Comment on above: Order Comment: Speci men Type: BLOOD SPECIMEN Ordering Facility: [facility] Address: [address] [place] [address] Performed By: #### 5 5454-3 #### [facility] CLIA [id number] [address] [place] [address] [place] Creatinine [Mass/Vol] 0.98 mg/dL High 0.58-[address] [facility] Comment on above: Order Comment: Speci men Type: BLOOD SPECIMEN Ordering Facility: [facility] Address: [address] [place] [address] Performed By: #### 5 5454-3 #### [facility] CLIA [id number] [address] [place] [address] [place] Creatinine and Glomerular filtration rate.predicted panel (S/P/Bld) 61 mL/min/1.73m??? Normal >=60 [facility] Comment on above: Order Comment: Speci men Type: BLOOD SPECIMEN Ordering Facility: [facility] Address: [address] [place] [address] Result Comment: Inocencia mated Glomerular Filtration Rate [...] GFR. Performed By: #### 5 5454-3 #### [facility] CLIA [id number] [address] [place] [address] [place] Glucose [Mass/Vol] 148 mg/dL High 74-99 [facility] Comment on above: Order Comment: Jethro bergman Type: BLOOD SPECIMEN Ordering Facility: [facility] Address: [address] [place] [address] Result Comment: The [place] Diabetes Association (ADA) provides guidance for cutoff [...] Standards of Medical Care in Diabetes 2016, [place] Diabetes Association. Diabetes Care. 2016.39(Suppl 1). Performed By: #### 5 5454-3 #### [facility] CLIA [id number] [address] [place] [address] [place] Potassium [Moles/Vol] 4.1 mmol/L Normal 3.7-5.[address] [facility] Comment on above: Order Comment: Jethro bergman Type: BLOOD SPECIMEN Ordering Facility: [facility] Address: [address] [place] [address] Performed By: #### 5 5454-3 #### [facility] CLIA [id number] [address] [place] [address] [place] Protein [Mass/Vol] 7.2 g/dL Normal 6.3-8.0 [facility] Comment on above: Order Comment: Speci men Type: BLOOD SPECIMEN Ordering Facility: [facility] Address: [address] [place] [address] Performed By: #### 5 5454-3 #### [facility] CLIA [id number] [address] [place] [address] [place] Sodium [Moles/Vol] 138 mmol/L Normal 136-144 [facility] Comment on above: Order Comment: Speci men Type: BLOOD SPECIMEN Ordering Facility: [facility] Address: [address] [place] [address] Performed By: #### 5 5454-3 #### [facility] CLIA [id number] [address] [place] [address] [place] Urea nitrogen [Mass/Vol] 35 mg/dL High 7-21 [facility] Comment on above: Order Comment: Speci men Type: BLOOD SPECIMEN Ordering Facility: [facility] Address: [address] [place] [address] Performed By: #### 5 5454-3 #### [facility] CLIA [id number] [address] [place] [address] [place] HbA1c (Bld)on 10-12-2024 Average glucose Estimated from glycated hemoglobin (Bld) [Mass/Vol] 105 mg/dL Normal [facility] Comment on above: Order Comment: Speci men Type: BLOOD SPECIMEN Ordering Facility: [facility] Address: [address] [place] [address] Result Comment: eAG: (Estimated average glucose) is a calculated value from HgbA1c and is procurement representative of the average blood glucose level in the last 2-3 month period. Performed By: #### 5 5454-3 #### [facility] CLIA [id number] [address] [place] [address] [place] HbA1c (Bld) [Mass fraction] 5.3 % Normal 4.3-5.6 [facility] Comment on above: Order Comment: Jethro bergman Type: BLOOD SPECIMEN Ordering Facility: [facility] Address: [address] [place] [address] Result Comment: Amer [place] Diabetes Association guidelines indicate that patients with HgbA1c in the range 5.7-6.4% are at increased risk for development of diabetes, and intervention by lifestyle modification may be beneficial. HgbA1c greater or equal to 6.5% is considered diagnostic of diabetes. Performed By: #### 5 5454-3 #### [facility] CLIA [id number] [address] [place] [address] [place] LIPID PANEL, NONFASTINGon Cholesterol [Mass/Vol] 136 mg/dL Normal <200 [facility] Comment on above: Order Comment: Jethro bergman Type: BLOOD SPECIMEN Ordering Facility: [facility] Address: [address] [place] [address] Result Comment: <200 mg/dL, Desirable 200-239 mg/dL, Borderline high >239 mg/dL, High Performed By: #### 5 5454-3 #### [facility] CLIA [id number] [address] [place] [address] [place] HDL CHOLESTEROL, NF 47 mg/dL Normal >39 [facility] Comment on above: Order Comment: Jethro bergman Type: BLOOD SPECIMEN Ordering Facility: [facility] Address: [address] [place] [address] Result Comment: 40-5 9 mg/dL, Acceptable >59 mg/dL, High: Negative risk factor for coronary heart disease <40 mg/dL, Low: Positive risk factor for coronary heart disease Performed By: #### 5 5454-3 #### [facility] CLIA [id number] [address] [place] [address] [place] LDL CHOLESTEROL, NF 70 mg/dL Normal <100 [facility] Comment on above: Order Comment: Jehtro bergman Type: BLOOD SPECIMEN Ordering Facility: [facility] Address: [address] [place] [address] Result Comment: <100 mg/dL, Optimal 100-129 mg/dL, Near optimal/above optimal 130-159 mg/dL, Borderline high 160-189 mg/dL, High >189 mg/dL, Very high Secondary prevention optimal LDL Cholesterol levels are recommended to be < 70 mg/dL Performed By: #### 5 5454-3 #### [facility] CLIA [id number] [address] [place] [address] LDL/HDL RATIO, NF 1.49 mg/dL Normal <2.54 [facility] Comment on above: Order Comment: Jethro bergman Type: BLOOD SPECIMEN Ordering Facility: [facility] Address: [address] [place] [address] Result Comment: Refe rence: 1. National Cholesterol Education Program ATP III Guideline At-A-Glance Quick Desk Reference: National Heart, Lung, and Blood Pauline. National Institutes of Health. 2001: NIH Publication No. 01-3305. 2. An International Atherosclerosis Society position paper: global recommendations for the management of dyslipidemia: executive summary, Atherosclerosis. 2014: 232(2):410-413. Performed By: #### 5 5454-3 #### [facility] CLIA [id number] [address] [place] [address] NON HDL CHOL, NF 89 mg/dL Normal <130 [facility] Comment on above: Order Comment: Jethro bergman Type: BLOOD SPECIMEN Ordering Facility: [facility] Address: [address] [place] [address] Result Comment: <130 mg/dL, Optimal 130-159 mg/dL, Near optimal/above optimal 160-189 mg/dL, Borderline high 190-219 mg/dL, High >219 mg/dL, Very high Secondary prevention optimal non HDL Cholesterol levels are recommended to be <100 mg/dL Performed By: #### 5 5454-3 #### [facility] CLIA [id number] [address] [place], [place] [address] [address] [place] T CHOL/HDL RATIO NF 2.89 mg/dL Normal <5.10 [facility] Comment on above: Order Comment: Jethro bergman Type: BLOOD SPECIMEN Ordering Facility: [facility] Address: [address] [place] [address] Performed By: #### 5 5454-3 #### [facility] CLIA [id number] [address] [place] [address] [place] TRIGLYCERIDES, NF 97 mg/dL Normal <150 [facility] Comment on above: Order Comment: Jethro bergman Type: BLOOD SPECIMEN Ordering Facility: [facility] Address: [address] [place] [address] Result Comment: <150 mg/dL, Normal 150-199 mg/dL, Borderline high 200-499 mg/dL, High >499 mg/dL, Very high Performed By: #### 5 5454-3 #### [facility] CLIA [id number] [address] [place] [address] [place] VLDL CHOLESTEROL, NF 19 mg/dL Normal <30 [facility] Comment on above: Order Comment: Jethro bergman Type: BLOOD SPECIMEN Ordering Facility: [facility] Address: [address] [place] [address] Performed By: #### 5 5454-3 #### [facility] CLIA [id number] [address] [place] [address] [place] XR CHEST 2 VIEWSon XR CHEST 2 VIEWS Interpreted By: Ayo Rey, STUDY: XR CHEST 2 VIEWS; 10/07/2024 3:16 pm INDICATION: Signs/Symptoms:postop. ,I71.21 Aneurysm of the ascending aorta, without rupture ([facility]) COMPARISON: 08/21/2024 ACCESSION NUMBER(S): [id number] ORDERING CLINICIAN: JOAQUIM GALLOWAY FINDINGS: Median sternotomy wires present CARDIOMEDIASTINAL SILHOUETTE: Cardiomediastinal silhouette is normal in size and configuration. LUNGS: The lungs are hyperinflated. There is bilateral small pleural effusions. Associated atelectasis. ABDOMEN: No remarkable upper abdominal findings. BONES: No acute osseous changes. IMPRESSION: 1. Bilateral small pleural effusions with atelectatic changes MACRO: None Signed by: Ayo Rey 10/08/2024 6:25 PM Dictation workstation: [id number] [facility] CT ANGIO CHEST W AND WO IV C [facility] 09-30-2024 CT ANGIO CHEST W AND WO IV CONTRAST Interpreted By: Hung Currie, STUDY: CT ANGIO CHEST W AND WO IV CONTRAST; 09/30/2024 1:25 pm INDICATION: Signs/Symptoms:s/p asc aorta replacement. ,I71.21 Aneurysm of the ascending aorta, without rupture ([facility]) COMPARISON: None. ACCESSION NUMBER(S): [id number] ORDERING CLINICIAN: JOAQUIM GALLOWAY TECHNIQUE: Using multi-detector [...] bilateral renal arteries are normal in caliber. 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 Findings consiste nt with postsurgical changes of valve sparing ascending aorta interposition graft. 2. There is a small amount of postsurgical perigraft fluid without evidence of leak/extravasation. 3. Postsurgical moderate-sized bilateral pleural effusions with basilar atelectasis. MACRO: None Signed by: Hung Currie 09/30/2024 3:06 PM Dictation workstation: [id number] MMODAL Interpreted By: Hung Currie, STUDY: CT ANGIO CHEST W AND WO IV CONTRAST; 09/30/2024 1:25 pm INDICATION: Signs/Symptoms:s/p asc aorta replacement. ,I71.21 Aneurysm of the ascending aorta, without rupture ([facility]) COMPARISON: None. ACCESSION NUMBER(S): [id number] ORDERING CLINICIAN: JOAQUIM GALLOWAY TECHNIQUE: Using multi-detector [...] bilateral renal arteries are normal in caliber. TANK HOUSE OPERATOR MEASUREMENTS OF THE AORTA: Annulus x cm [...] Postsurgical changes consistent with recent median sternotomy. [facility] Jacob Currie MD - 09/30/2024 Interpreted By: Hung Currie, STUDY: CT ANGIO CHEST W AND WO IV CONTRAST; 09/30/2024 1:25 pm INDICATION: Signs/Symptoms:s/p asc aorta replacement. ,I71.21 Aneurysm of the ascending aorta, without rupture ([facility]) COMPARISON: None. ACCESSION NUMBER(S): [id number] ORDERING CLINICIAN: JOAQUIM GALLOWAY TECHNIQUE: Using multi-detector [...] bilateral renal arteries are normal in caliber. TANK HOUSE OPERATOR MEASUREMENTS OF THE AORTA: Annulus x cm [...] Hung Currie 09/30/2024 3:06 PM Dictation workstation: [id number] [facility] Work Phone: Radiology Study observation (narrative) [facility] Work Phone: CTA Chest vessels WO and W c ontrast IVOrdered By: Jacob Currie on 09-30-2024 [facility] Work Phone: Chest Insp/Exp 2 Viewon 09-09 Chest Insp/Exp 2 View [facility] Imaging Services [address] [place] [address] Chest Insp/Exp 2 View MR#: [id number] Acct: [id number] Name: CAI,KARLA MARQUIS Rep #: [id number] : 1950 F 73 From: Tan lechuga MD PCP: Dr. Jae Belcher MD Status: REG CLI Study: Chest Insp/Exp 2 View Date of Exam: 09/23/24 Exam# [id number] Ordering Dr: Tan Willis [id number] STUDY: X-RAY CHEST REASON FOR EXAM: Female, [...] Tan Willis MD; Dr. Jae Belcher MD Help Desk Specialist: Signed Normal [facility] Operative Reporton Operative Report [facility] Medical Records Department [address] [place] [address] Operative Report 09/23/24 1259 MR#: [id number] Acct: [id number] Name: KARLA CAI Rep #: [id number] : 1950 73 From: Christina Chapman NP MEAT SERVICE TEAM MEMBER-C PCP: Dr. Jae Belcher MD Status:REG CLI Location: US Problems Associated Problem List Diagnoses (1) Bilateral pleural effusion: Multi Select Codes Radiology Radiology [place] Procedures: 76094 Thoracentesis Operative Report (Standard) Operative Information Date of Procedure: 09/23/24 Pre-Operative Diagnosis: Pleural effusion Post-Operative Diagnosis: Pleural effusion Surgery/Procedure Performed: Ultrasound-guided thoracentesis enterprise sales person: No Type of Anesthesia: Local Procedure Start [...] local anesthesia. Under ultrasound guidance, a 5- Comoran thoracentesis needle/catheter system was advanced into the [...] Jae Belcher MD; WILY Hernandez Signed Normal [facility] Special Stain Group IIon Special Stain Group II ----- ---- Patient Age/Sex Location Account Attending Physician ---- KARLA CAI 73/F [id number] WILY Hernandez ---- Specimen: [id number] Received: 09/23/24 Status: SOFIE Jareth Num: [id number] Spec Type: Fluid Subm Dr: WILY Hernandez HEADER OPERATION: Ultrasound guided thoracentesis PRE-OP DIAGNOSIS: Pleural effusion TISSUE SUBMITTED: Thoracentesis fluid for cytology ---- DIAGNOSIS CYTOLOGY Thoracentesis fluid for cytology (cytospins and cellblock): Negative for malignant cells. See comment. 09/25/2024 COMMENT Clinical correlation and appropriate follow up are necessary. CYTOLOGY STUDY Slides are reviewed. CYTOLOGY GROSS Received is 100 ml of dark-red cloudy fluid labeled with the patient's name and and designated per the requisition as Thoracentesis fluid. Submitted for cytology preparation including cell block. Mr 09/24/2024 TC:5 CPT: 63632,89223 Signed (signature on file) Dr. Yogi Luciano MD 09/25/24 1254 ---- Normal [facility] Comment on above: Performed By: #### P SSII #### [facility] [address] [facility] [place], [place], [address] Chest Insp/Exp 2 Viewon 09-09 Chest Insp/Exp 2 View [facility] Imaging Services [address] [place], [place] [address] Chest Insp/Exp 2 View MR#: [id number] Acct: [id number] Name: KARLA CAI Rep #: [id number] : 1950 F 73 From: Tan lechuga MD PCP: Dr. Jae Belcher MD Status: REG I Study: Chest Insp/Exp 2 View Date of Exam: 09/22/24 Exam# [id number] Ordering Dr: Christina Chapman MEAT SERVICE TEAM MEMBER MEAT SERVICE TEAM MEMBER-C [id number] STUDY: X-RAY CHEST REASON FOR EXAM: Female, [...] 8:55 EST Reading Location ID and State: [address] [place] [address] , Service support , CC: CHRISTIAN Chapman; Dr. Jae Belcher MD Help Desk Specialist: Signed Normal [facility] Operative Reporton Operative Report [facility] Medical Records Department [address] [place] [address] Operative Report 09/22/24 0840 MR#: [id number] Acct: [id number] Name: KARLA CAI Rep #: [id number] : 1950 73 From: Christina GONZALES PCP: Dr. Jae Belcher MD Status:REG CLI Location: US Problems Associated Problem List Diagnoses (1) Bilateral pleural effusion: Multi Select Codes Radiology Radiology [place] Procedures: 54058 Thoracentesis Operative Report (Standard) Operative Information Date of Procedure: 09/22/24 Pre-Operative Diagnosis: Pleural effusion Post-Operative Diagnosis: Pleural effusion Surgery/Procedure Performed: Ultrasound-guided thoracentesis enterprise sales person: No Type of Anesthesia: Local Procedure Start [...] local anesthesia. Under ultrasound guidance, a 5- Comoran thoracentesis needle/catheter system was advanced into the [...] Jae Belcher MD; WILY Hernandez Signed Normal [facility] 12 Lead EKG performed by [facility] on 09-16-2024 12 Lead EKG performed by [facility] [address] [place] [address] 12 Lead EKG performed by [facility] 09/16/24 0751 MR#: [id number] Acct: [id number] Name: KARLA CAI Rep #: [id number] : 1950 73 From: Mendoza Christie Attending Dr: WILY Hernandez Status: DEP AMB Ordering Dr: Mendoza Boogie Date: 05/03 Location: [facility] Sex: F C Admitted: BMS/12 Lead EKG performed by [facility] ECG Report Interpretation ----Sinus Rhythm Low voltage in precordial leads. -Left atrial enlargement. -Anterior infarct -age undetermined. - T-abnormality -Possible Anterolateral and inferior ischemia. ABNORMAL Electronically signed on 09/16/2024 at 14:41 by Tulio Keenan Software Version [id number] 09/16/24 1443 Date Mendoza JULIEN CC: Dr. Jae Belcher MD Date Dictated: 09/16/24750 Date Transcribed: 09/16/24750 Help Desk Specialist: GO Signed Normal [facility] Basic Metabolic Profile (BMP )on 09-16-2024 BUN/CRE 41.2 RATIO High 10-20 [facility] Comment on above: Performed By: #### L 500.2500 #### [facility] [address] [place], [address] CA,Total 9.1 mg/dL Normal 8.5-10.1 [facility] Comment on above: Performed By: #### L 500.2500 #### [facility] [address] [place], [address] Chloride [Moles/Vol] 108 mmol/L High 98-107 [facility] Comment on above: Performed By: #### L 500.2500 #### [facility] [address] [place], [address] CO2 [Moles/Vol] 27.0 mmol/L Normal 21.0-32.0 [facility] Comment on above: Performed By: #### L 500.2500 #### [facility] [address] [place], [address] Creatinine [Mass/Vol] 0.78 mg/dL Normal 0.55-1.02 [facility] Comment on above: Result Comment: The validity of the calculated GFR GFRAA in patients over 70 years has not been determined. Clinical correlation is essential. Performed By: #### L 500.2500 #### [facility] [address] [place], [address] EST GFR - AA 93 mL/min Normal >60 [facility] Comment on above: Result Comment: Afri can [place] GFR Calc Performed By: #### L 500.2500 #### [facility] [address] [place], [address] GAP 6 Normal 5-15 [facility] Comment on above: Performed By: #### L 500.2500 #### [facility] [address] [place], [address] GFR/1.73 sq M.predicted among non-blacks MDRD (S/P/Bld) [Vol rate/Area] 77 mL/min/{1.73_m2} Normal >60 [facility] Comment on above: Result Comment: Non- GFR Calc Performed By: #### L 500.2500 #### [facility] [address] [place], [address] Glucose [Mass/Vol] 117 mg/dL High 74-106 [facility] Comment on above: Result Comment: Fast ing Glucose result from 100 to 125 mg/dL suggests IMPAIRED HOMEOSTASIS per A.D.A. criteria. Performed By: #### L 500.2500 #### [facility] [address] [place], [address] Potassium [Moles/Vol] 3.7 mmol/L Normal 3.5-5.1 [facility] Comment on above: Performed By: #### L 500.2500 #### [facility] [address] [place], [address] Sodium [Moles/Vol] 141 mmol/L Normal 136-145 [facility] Comment on above: Performed By: #### L 500.2500 #### [facility] [address] [place], [address] Urea nitrogen [Mass/Vol] 32 mg/dL High 7-18 [facility] Comment on above: Performed By: #### L 500.2500 #### [facility] [address] [place], [address] Blood urea nitrogen (BUN)/cr eatinine ratioOrdered By: Mendoza Boogie on 09-16-2024 Urea nitrogen/Creatinine [Mass ratio] 41.2 mg/mg High 10-20 [facility] Carbon dioxide measurementOr dered By: Mendoza Boogie on 09-16-2024 CO2 [Moles/Vol] 27.0 mmol/L 21.0-32.0 [facility] Cardiology Visit Reporton Cardiology Visit Report [facility] [address] [place] [address] OFFICE VISIT Date of Service: 09/16/24 MR#: [id number] Acct: [id number] Name: KARLA CAI Rep #: [id number] : 1950 Provider: WILY Ortega Age/Sex: 73/F Location: [facility] Status: Signed HPI HPI History of Present [...] 95 Intake Visit Reasons: 6 m fu Pharmacy Technician Trainee Required: No Is patient in pain?: No [...] PO BID 03/11/24 09/16/24 History mg-copper 1 ty-ffnbdn-iywijh capsule (PreserVision AREDS-2) amiodarone 200 mg tablet [...] you fallen in the past year?: No [facility] Medical History Bilateral pleural effusion Postoperative atrial fibrillation Mitral valve insufficiency Thoracic aortic aneurysm without rupture Breast cancer Essential hypertension Hypokalemia Acute diverticulitis Surgical History ... Normal [facility] Chloride measurementOrdered By: Mendoza Boogie on 09-16-2024 Chloride [Moles/Vol] 108 mmol/L High 98-107 [facility] Estimated glomerular filtrat ion rate (GFR) AmericanOrdered By: eMndoza Boogie on 09-16-2024 Estimated GFR (MDRD) Amer 93 mL/min >60 [facility] Comment on above: GFR Calc Glomerular filtration rate ( GFR) estimationOrdered By: Mendoza Boogie on 09-16-2024 Estimated GFR (MDRD) Non-Af Amer 77 mL/min >60 [facility] Comment on above: Non- GFR Calc Glucose measurementOrdered B y: Mendoza Boogie on 09-16-2024 Glucose [Mass/Vol] 117 mg/dL High 74-106 [facility] Comment on above: Fasting Glucose resu lt from 100 to 125 mg/dL suggests IMPAIRED HOMEOSTASIS per A.D.A. criteria. Potassium measurementOrdered By: Mendoza Boogie on 09-16-2024 Potassium [Moles/Vol] 3.7 mmol/L 3.5-5.1 [facility] Serum anion gap measurementO rdered By: Mendoza Boogie on 09-16-2024 Anion gap [Moles/Vol] 6 mmol/L 5-15 [facility] Serum or plasma calcium jillian urement (mass/volume)Ordered By: Mendoza Boogie on 09-16-2024 Calcium [Mass/Vol] 9.1 mg/dL 8.5-10.1 [facility] Serum or plasma creatinine m easurement (mass/volume)Ordered By: Mendoza Boogie on 09-16-2024 Creatinine [Mass/Vol] 0.78 mg/dL 0.55-1.02 [facility] Comment on above: The validity of the calculated GFR & GFRAA in patients over 70 years has not been determined. Clinical correlation is essential. Serum or plasma urea nitroge n measurement (mass/volume)Ordered By: Mendoza Boogie on 09-16-2024 Urea nitrogen [Mass/Vol] 32 mg/dL High 7-18 [facility] Sodium levelOrdered By: Ten Boogie on 09-16-2024 Sodium [Moles/Vol] 141 mmol/L 136-145 [facility] Chest PA and Lateralon 09-15 Chest PA and Lateral [facility] Imaging Services [address], [place] [address] Chest PA and Lateral MR#: [id number] Acct: [id number] Name: KARLA CAI Rep #: [id number] : 1950 F 73 From: Joanne angela MD PCP: Dr. Jae Belcher MD Status: REG CLI Study: Chest PA and Lateral Date of Exam: 09/15/24 Exam# [id number] Ordering Dr: Mendoza Boogie [place] [id number] HISTORY: Pleural effusion. TECHNIQUE: XR Chest 2 [...] Signed: Joanne Stewart MD at 11:52 EST Reading Location ID and State: [facility] / [place] Tel , Service support , CC: Dr. Jae Belcher MD; WILY Hernandez Help Desk Specialist: Signed Normal [facility] Basic Metabolic Profile (BMP )on 09-11-2024 BUN/CRE 32.9 RATIO High 10-20 [facility] Comment on above: Performed By: #### L 500.2500 #### [facility] [address] [place], [address] CA,Total 8.6 mg/dL Normal 8.5-10.1 [facility] Comment on above: Performed By: #### L 500.2500 #### [facility] [address] [place], [address] Chloride [Moles/Vol] 105 mmol/L Normal 98-107 [facility] Comment on above: Performed By: #### L 500.2500 #### [facility] [address] [place], [address] CO2 [Moles/Vol] 30.0 mmol/L Normal 21.0-32.0 [facility] Comment on above: Performed By: #### L 500.2500 #### [facility] [address] [place], [address] Creatinine [Mass/Vol] 0.97 mg/dL Normal 0.55-1.02 [facility] Comment on above: Result Comment: The validity of the calculated GFR GFRAA in patients over 70 years has not been determined. Clinical correlation is essential. Performed By: #### L 500.2500 #### [facility] [address] [place], [address] EST GFR - AA 72 mL/min Normal >60 [facility] Comment on above: Result Comment: Afri can Barbadian GFR Calc Performed By: #### L 500.2500 #### [facility] [address] [place], [address] GAP 6 Normal 5-15 [facility] Comment on above: Performed By: #### L 500.2500 #### [facility] [address] [place], [address] GFR/1.73 sq M.predicted among non-blacks MDRD (S/P/Bld) [Vol rate/Area] 59 mL/min/{1.73_m2} Low >60 [facility] Comment on above: Result Comment: Non- GFR Calc Performed By: #### L 500.2500 #### [facility] [address] [place], [address] Glucose [Mass/Vol] 106 mg/dL Normal 74-106 [facility] Comment on above: Result Comment: Fast ing Glucose result from 100 to 125 mg/dL suggests IMPAIRED HOMEOSTASIS per A.D.A. criteria. Performed By: #### L 500.2500 #### [facility] [address] [place], [address] Potassium [Moles/Vol] 3.1 mmol/L Low 3.5-5.1 [facility] Comment on above: Performed By: #### L 500.2500 #### [facility] [address] [place], [address] Sodium [Moles/Vol] 141 mmol/L Normal 136-145 [facility] Comment on above: Performed By: #### L 500.2500 #### [facility] [address] [place], [address] Urea nitrogen [Mass/Vol] 32 mg/dL High 7-18 [facility] Comment on above: Performed By: #### L 500.2500 #### [facility] [address] [place], [address] Blood urea nitrogen (BUN)/cr eatinine ratioOrdered By: Mendoza Boogie on 09-11-2024 Urea nitrogen/Creatinine [Mass ratio] 32.9 mg/mg High 10-20 [facility] Carbon dioxide measurementOr dered By: Mendoza Boogie on 09-11-2024 CO2 [Moles/Vol] 30.0 mmol/L 21.0-32.0 [facility] Chloride measurementOrdered By: Mendoza Boogie on 09-11-2024 Chloride [Moles/Vol] 105 mmol/L 98-107 [facility] Estimated glomerular filtrat ion rate (GFR) AmericanOrdered By: Mendoza Boogie on 09-11-2024 Estimated GFR (MDRD) Amer 72 mL/min >60 [facility] Comment on above: GFR Calc Glomerular filtration rate ( GFR) estimationOrdered By: Mendoza Boogie on 09-11-2024 Estimated GFR (MDRD) Non-Af Amer 59 mL/min Low >60 [facility] Comment on above: Non- GFR Calc Glucose measurementOrdered B y: Mendoza Boogie on 09-11-2024 Glucose [Mass/Vol] 106 mg/dL 74-106 [facility] Comment on above: Fasting Glucose resu lt from 100 to 125 mg/dL suggests IMPAIRED HOMEOSTASIS per A.D.A. criteria. Potassium measurementOrdered By: Mendoza Boogie on 09-11-2024 Potassium [Moles/Vol] 3.1 mmol/L Low 3.5-5.1 [facility] Serum anion gap measurementO rdered By: Mendoza Boogie on 09-11-2024 Anion gap [Moles/Vol] 6 mmol/L 5-15 [facility] Serum or plasma calcium jillian urement (mass/volume)Ordered By: Mendoza Boogie on 09-11-2024 Calcium [Mass/Vol] 8.6 mg/dL 8.5-10.1 [facility] Serum or plasma creatinine m easurement (mass/volume)Ordered By: Mendoza Boogie on 09-11-2024 Creatinine [Mass/Vol] 0.97 mg/dL 0.55-1.02 [facility] Comment on above: The validity of the calculated GFR & GFRAA in patients over 70 years has not been determined. Clinical correlation is essential. Serum or plasma urea nitroge n measurement (mass/volume)Ordered By: Mendoza Boogie on 09-11-2024 Urea nitrogen [Mass/Vol] 32 mg/dL High 7-18 [facility] Sodium levelOrdered By: Ten Boogie on 09-11-2024 Sodium [Moles/Vol] 141 mmol/L 136-145 [facility] Chest Insp/Exp 2 Viewon 12-3 Chest Insp/Exp 2 View [facility] Imaging Services [address] [place] [address] Chest Insp/Exp 2 View MR#: [id number] Acct: [id number] Name: KARLA CAI Rep #: [id number] : 1950 F 73 From: Chris Arenas MD PCP: Dr. Jae Belcher MD Status: REG CLI Study: Chest Insp/Exp 2 View Date of Exam: 09/08/24 Exam# [id number] Ordering Dr: Christina Chapman MEAT SERVICE TEAM MEMBER MEAT SERVICE TEAM MEMBER-C [id number] STUDY: X-RAY CHEST REASON FOR EXAM: Female, [...] Signed: Tomas Arenas MD at 12:14 EST Reading Location ID and State: [facility] / [place] , Service support , CC: CHRISTIAN Chapman; Dr. Jae Belcher MD Help Desk Specialist: Signed Normal [facility] Operative Reporton 4 Operative Report [facility] Medical Records Department [address] [place] [address] Operative Report 09/08/24 1157 MR#: [id number] Acct: [id number] Name: KARLA CAI Rep #: [id number] : 1950 73 From: Christina GONZALES PCP: Dr. Jae Belcher MD Status:REG CLI Location: [place] Problems Associated Problem List Diagnoses (1) Bilateral pleural effusion: Multi Select Codes Radiology Radiology US Procedures: 01363 Thoracentesis Operative Report (Standard) Operative Information Date of Procedure: 09/08/24 Pre-Operative Diagnosis: Pleural effusion Post-Operative Diagnosis: Pleural effusion Surgery/Procedure Performed: Ultrasound guided thoracentesis enterprise sales person: No Type of Anesthesia: Local Procedure Start Time: 11:41 Procedure Stop Time: 11:53 Select all DRAINS/GRAFTS/IMPLANTS that apply: None Estimated Blood Loss: 0 Specimen collected: Yes Description of specimen(s) removed: 100 cc sent to lab Description of surgery: PROCEDURE: Ultrasound Guided Thoracentesis ORDERING PROVIDER: WILY Vazquez INDICATION: Female, 73 years old. Pleural effusion. PROVIDER: Christina Chapman ENVIRONMENTAL SYSTEMS COORDINATOR PROCEDURE: The risks, benefits, and alternatives to [...] local anesthesia. Under ultrasound guidance, a 5- Comoran thoracentesis needle/catheter system was advanced into the [...] 09/08/24 1201 Cosigner Signature (if applicable): CC: CHRISTIAN Chapman; Dr. Jae Belcher MD; WILY Hernandez Signed Normal [facility] Special Stain Group IIon Special Stain Group II ----- ---- Patient Age/Sex Location Account Attending Physician ---- KARLA CAI 73/F [id number] WILY Hernandez ---- Specimen: [id number] Received: 09/08/24 Status: SOFIE [place] Num: [id number] Spec Type: Fluid Subm Dr: WILY Hernandez HEADER OPERATION: Ultrasound guided thoracentesis fluid PRE-OP DIAGNOSIS: Bilateral pleural effusion TISSUE SUBMITTED: Thoracentesis fluid for cytology ---- DIAGNOSIS CYTOLOGY Thoracentesis fluid for cytology (cytospins and cellblock): Negative for malignant cells. Bloody specimen. See comment. [email or web address] 09/10/2024 COMMENT Correlation with clinical, radiologic findings and appropriate follow up are necessary. CYTOLOGY STUDY Slides are reviewed. CYTOLOGY GROSS Received is 100 ml of dark red fluid labeled with the patient's name and and designated per the requisition as Thoracentesis fluid. Submitted for cytology preparation including cell block. Mr 09/08/2024 TC:5 CPT: 72560,22395 Signed (signature on file) Dr. Yogi Luciano MD 09/10/24 1042 ---- Normal [facility] Comment on above: Performed By: #### P SSII ####[facility] [address] [facility] [place], [place], [address] Chest Insp/Exp 2 Viewon 12- Chest Insp/Exp 2 View [facility] Imaging Services [address] [place], [place] [address] Chest Insp/Exp 2 View MR#: [id number] Acct: [id number] Name: KARLA CAI Rep #: [id number] : 1950 F 73 From: Chris Arenas MD PCP: Dr. Jae Belcher MD Status: [facility] Study: Chest Insp/Exp 2 View Date of Exam: 09/07/24 Exam# [id number] Ordering Dr: Christina Chapman MEAT SERVICE TEAM MEMBER MEAT SERVICE TEAM MEMBER-C [id number] STUDY: X-RAY CHEST REASON FOR EXAM: Female, [...] CC: CHRISTIAN Chapman; Dr. Jae Belcher MD Help Desk Specialist: Signed Normal [facility] Operative Reporton Operative Report [facility] Medical Records Department [address] [place] [address] Operative Report 09/07/24 0820 MR#: [id number] Acct: [id number] Name: KARLA CAI Rep #: [id number] : 1950 73 From: Christina GONZALES PCP: Dr. Jae Belcher MD Status:REG CLI Location: [place] Problems Associated Problem List Diagnoses (1) Bilateral pleural effusion: Multi Select Codes Radiology Radiology [place] Procedures: 92340 Thoracentesis Operative Report (Standard) Operative Information Date of Procedure: 09/07/24 Pre-Operative Diagnosis: Pleural effusion Post-Operative Diagnosis: Pleural effusion Surgery/Procedure Performed: Ultrasound-guided thoracentesis enterprise sales person: No Type of Anesthesia: Local Procedure Start Time: 09:05 Procedure Stop Time: 09:18 Select all DRAINS/GRAFTS/IMPLANTS that apply: None Estimated Blood Loss: 0 Specimen collected: No Description of surgery: PROCEDURE: Ultrasound Guided Thoracentesis ORDERING PROVIDER: WILY Vazquez INDICATION: Female, 73 years old. Pleural effusion. PROVIDER: Christina Chapman ENVIRONMENTAL SYSTEMS COORDINATOR PROCEDURE: The risks, benefits, and alternatives to [...] local anesthesia. Under ultrasound guidance, a 5- Comoran thoracentesis needle/catheter system was advanced into the posterior lower pleural fluid collection. 1050 ml of red colored fluid was drained. The catheter was removed, and a sterile dressing was applied. The patient tolerated the procedure well. A chest x-ray was ordered. IMPRESSION: Successful ultrasound guided thoracentesis of right pleural effusion. Surgical Findings: None Complications Complications: No 09/07/24 08 Cosigner Signature (if applicable): CC: CHRISTIAN Chapman; Dr. Jae Belcher MD; WILY Hernandez Signed Normal [facility] 12 Lead EKG performed by [facility] on 09-03-2024 12 Lead EKG performed by [address] [address] 12 Lead EKG performed by [facility] 09/03/24 1252 MR#: [id number] Acct: [id number] Name: KARLA CAI Rep #: [id number] : 1950 73 From: Mendoza Christie Attending Dr: WILY Hernandez Status: DEP AMB Ordering Dr: Mendoza Boogie Date: 08/10 03/02 Location: [facility] Sex: F C Admitted: [facility]/12 Lead EKG performed by [facility] ECG Report Interpretation ----Sinus Rhythm Diffuse low voltage. -Intraventricular conduction defect -consider left ventricular hypertrophy. - Anterior -lateral infarct (age undetermined) -Right axis -may be secondary to infarct. ABNORMAL Electronically signed on 09/06/2024 at 12:06 by Tulio [employer] Version [id number] 09/06/24 1209 Date Mendoza JULIEN PA CC: Dr. Jae Belcher MD Date Dictated: 09/03/241251 Date Transcribed: 09/03/241251 Help Desk Specialist: GO Signed Normal [facility] Absolute neutrophil countOrd ered By: Mendoza Boogie on 09-03-2024 Neutrophils (Bld) [#/Vol] 7.0 10*3/uL 2.0-7.7 [facility] Basic Metabolic Profile (BMP )on 09-03-2024 BUN/CRE 35.7 RATIO High 10-20 [facility] Comment on above: Performed By: #### L 500.2500, L100.0100 ####[facility] [address] [place], [address] CA,Total 8.5 mg/dL Normal 8.5-10.1 [facility] Comment on above: Performed By: #### L 500.2500, L100.0100 ####[facility] [address] [place], [address] Chloride [Moles/Vol] 104 mmol/L Normal 98-107 [facility] Comment on above: Performed By: #### L 500.2500, L100.0100 ####[facility] [address] [place], [address] CO2 [Moles/Vol] 27.0 mmol/L Normal 21.0-32.0 [facility] Comment on above: Performed By: #### L 500.2500, L100.0100 ####[facility] [address] [place], [address] Creatinine [Mass/Vol] 0.84 mg/dL Normal 0.55-1.02 [facility] Comment on above: Result Comment: The validity of the calculated GFR GFRAA in patients over 70 years has not been determined. Clinical correlation is essential. Performed By: #### L 500.2500, L100.0100 ####[facility] [address] [place], [address] EST GFR - AA 85 mL/min Normal >60 [facility] Comment on above: Result Comment: Afri can Barbadian GFR Calc Performed By: #### L 500.2500, L100.0100 ####[facility] [address] [place], [address] GAP 7 Normal 5-15 [facility] Comment on above: Performed By: #### L 500.2500, L100.0100 ####[facility] [address] [place], [address] GFR/1.73 sq M.predicted among non-blacks MDRD (S/P/Bld) [Vol rate/Area] 70 mL/min/{1.73_m2} Normal >60 [facility] Comment on above: Result Comment: Non- GFR Calc Performed By: #### L 500.2500, L100.0100 ####[facility] [address] [place], [address] Glucose [Mass/Vol] 119 mg/dL High 74-106 [facility] Comment on above: Result Comment: Fast ing Glucose result from 100 to 125 mg/dL suggests IMPAIRED HOMEOSTASIS per A.D.A. criteria. Performed By: #### L 500.2500, L100.0100 ####[facility] [address] [place], [address] Potassium [Moles/Vol] 3.5 mmol/L Normal 3.5-5.1 [facility] Comment on above: Performed By: #### L 500.2500, L100.0100 ####[facility] [address] [place], [address] Sodium [Moles/Vol] 138 mmol/L Normal 136-145 [facility] Comment on above: Performed By: #### L 500.2500, L100.0100 ####[facility] [address] [place], [address] Urea nitrogen [Mass/Vol] 30 mg/dL High - [facility] Comment on above: Performed By: #### L 500.2500, L100.0100 ####[facility] [address] [place], [address] Basophil percentageOrdered B y: Mendoza Boogie on 09-03-2024 Basophils/100 WBC (Bld) 0.3 % 0-1 [facility] Blood urea nitrogen (BUN)/cr eatinine ratioOrdered By: Mendoza Boogie on 09-03-2024 Urea nitrogen/Creatinine [Mass ratio] 35.7 mg/mg High - [facility] CBC W/Diff, Automatedon 08-10 Absolute Lymph 1.10 X10 3/uL Normal 0.83-4.51 [facility] Comment on above: Performed By: #### L 500.2500, L100.0100 #### [facility] [address] [place], [address] Absolute Neut 7.0 X10 3/uL Normal 2.0-7.7 [facility] Comment on above: Performed By: #### L 500.2500, L100.0100 #### [facility] [address] [place], [address] Basophils/100 WBC (Bld) 0.3 % Normal 0-1 [facility] Comment on above: Performed By: #### L 500.2500, L100.0100 #### [facility] [address] [place], [address] Eosinophils/100 WBC (Bld) 3.0 % Normal 0-5 [facility] Comment on above: Performed By: #### L 500.2500, L100.0100 #### [facility] [address] [place], [address] Erythrocyte distribution width (RBC) [Ratio] 16.0 % High 11.6-14.6 [facility] Comment on above: Performed By: #### L 500.2500, L100.0100 #### [facility] [address] [place], [address] Hematocrit (Bld) [Volume fraction] 35.5 % Low 37-47 [facility] Comment on above: Performed By: #### L 500.2500, L100.0100 #### [facility] [address] [place], [address] Hemoglobin (Bld) [Mass/Vol] 11.0 g/dL Low 12.0-15.0 [facility] Comment on above: Performed By: #### L 500.2500, L100.0100 #### [facility] [address] [place], [address] IG% 0.400 Normal 0.0-0.9 [facility] Comment on above: Result Comment: IG% - Immature Granulocytes (promyelocytes, myelocytes and metamyelocytes) > 1% indicates that a LEFT SHIFT is Present. Performed By: #### L 500.2500, L100.0100 #### [facility] [address] [place], [address] Lymphocytes/100 WBC (Bld) 11.9 % Low 19-41 [facility] Comment on above: Performed By: #### L 500.2500, L100.0100 #### [facility] [address] [place], [address] MCH (RBC) [Entitic mass] 28.9 pg Normal 27.0-32.0 [facility] Comment on above: Performed By: #### L 500.2500, L100.0100 #### [facility] [address] [place], [address] MCHC (RBC) [Mass/Vol] 31.0 g/dL Low 32-36 [facility] Comment on above: Performed By: #### L 500.2500, L100.0100 #### [facility] [address] [place], [address] MCV (RBC) [Entitic vol] 93.2 fL Normal 81-99 [facility] Comment on above: Performed By: #### L 500.2500, L100.0100 #### [facility] [address] [place], [address] Monocytes/100 WBC (Bld) 8.3 % Normal 0-10 [facility] Comment on above: Performed By: #### L 500.2500, L100.0100 #### [facility] [address] [place], [address] Neutrophils/100 WBC (Bld) 76.1 % High 47-70 [facility] Comment on above: Performed By: #### L 500.2500, L100.0100 #### [facility] [address] [place], [address] Nucleated RBC (Bld) [#/Vol] 0 10*3/uL Normal 0-5 [facility] Comment on above: Performed By: #### L 500.2500, L100.0100 #### [facility] [address] [place], [address] Platelet mean volume (Bld) [Entitic vol] 8.3 fL Normal 6.2-12.0 [facility] Comment on above: Performed By: #### L 500.2500, L100.0100 #### [facility] [address] [place], [address] Platelets (Bld) [#/Vol] 691 10*3/uL High 150-450 [facility] Comment on above: Performed By: #### L 500.2500, L100.0100 #### [facility] [address] [place], [address] RBC (Bld) [#/Vol] 3.81 10*6/uL Low 4.2-5.4 [facility] Comment on above: Performed By: #### L 500.2500, L100.0100 #### [facility] [address] [place], [address] RDW SD 54.6 fl High 35.1-43.9 [facility] Comment on above: Performed By: #### L 500.2500, L100.0100 #### [facility] [address] [place], [address] WBC (Bld) [#/Vol] 9.2 10*3/uL Normal 4.4-11.0 [facility] Comment on above: Performed By: #### L 500.2500, L100.0100 #### [facility] [address] [place], [address] Carbon dioxide measurementOr dered By: Mendoza Boogie on 09-03-2024 CO2 [Moles/Vol] 27.0 mmol/L 21.0-32.0 [facility] Cardiology Visit Reporton Cardiology Visit Report [facility] [address] [place] [address] OFFICE VISIT Date of Service: 09/03/24 MR#: [id number] Acct: [id number] Name: KARLA CAI Rep #: [id number] : 1950 Provider: WILY Ortega Age/Sex: 73/F Location: [facility] Status: Signed HPI HPI History of Present [...] 93 Intake Visit Reasons: S/P Yara 08/22 Pharmacy Technician Trainee Required: No Is patient in pain?: No [...] PO BID 03/11/24 09/03/24 History mg-copper 1 mm-utimke-tekycm capsule (PreserVision AREDS-2) amiodarone 200 mg tablet [...] History (Updated 09/03/24 @ 13:55 by Mendoza Boogie PA, PA) Postoperative atrial fibrillation Mitral valve insufficiency Thoracic aortic aneurysm without rupture Breast cancer Essential hypertension Hypokalemia Acute diverticulitis Surgical History (Updated 12/26/24 @ 14:01 by Mendoza JULIEN PA) S/P [...] intake: n (more content not included)... Normal [facility] Chest PA and Lateralon 09-03 Chest PA and Lateral [facility] Imaging Services [address], [place] [address] Chest PA and Lateral MR#: [id number] Acct: [id number] Name: KARLA CAI Rep #: [id number] : 1950 F 73 From: Meng Dickerson MD PCP: Dr. Jae Belcher MD Status: REG CLI Study: Chest PA and Lateral Date of Exam: 09/03/24 Exam# [id number] Ordering Dr: Mendoza Boogie [id number] STUDY: X-RAY CHEST REASON FOR EXAM: Female, [...] CC: Dr. Jae Belcher MD; WILY Hernandez Help Desk Specialist: Signed Normal [facility] Chloride measurementOrdered By: Mendoza Boogie on 09-03-2024 Chloride [Moles/Vol] 104 mmol/L 98-107 [facility] Eosinophil percentageOrdered By: Mendoza Boogie on 09-03-2024 Eosinophils/100 WBC (Bld) 3.0 % 0-5 [facility] Erythrocyte distribution wid th ratioOrdered By: Mendoza Boogie on 09-03-2024 Erythrocyte distribution width (RBC) [Ratio] 16.0 % High 11.6-14.6 [facility] Erythrocyte distribution wid th standard deviationOrdered By: Mendoza Boogie on 09-03-2024 Erythrocyte distribution width (RBC) [Entitic vol] 54.6 fL High 35.1-43.9 [facility] Estimated glomerular filtrat ion rate (GFR) AmericanOrdered By: Mendoza Boogie on 09-03-2024 Estimated GFR (MDRD) Amer 85 mL/min >60 [facility] Comment on above: GFR Calc Glomerular filtration rate ( GFR) estimationOrdered By: Mendoza Boogie on 09-03-2024 Estimated GFR (MDRD) Non-Af Amer 70 mL/min >60 [facility] Comment on above: Non- GFR Calc Glucose measurementOrdered B y: Mendoza Boogie on 09-03-2024 Glucose [Mass/Vol] 119 mg/dL High 74-106 [facility] Comment on above: Fasting Glucose resu lt from 100 to 125 mg/dL suggests IMPAIRED HOMEOSTASIS per A.D.A. criteria. Hematocrit Auto (Bld) [Volum e fraction]Ordered By: Mendoza Boogie on 09-03-2024 Hematocrit (Bld) [Volume fraction] 35.5 % Low 37-47 [facility] Hemoglobin measurementOrdere d By: Mendoza Boogie on 09-03-2024 Hemoglobin (Bld) [Mass/Vol] 11.0 g/dL Low 12.0-15.0 [facility] Immature granulocytes/100 WB C Auto (Bld)Ordered By: Mendoza Boogie on 09-03-2024 Immature granulocytes/100 WBC (Bld) 0.400 % 0.0-0.9 [facility] Comment on above: IG% - Immature Granu locytes (promyelocytes, myelocytes and metamyelocytes) > 1% indicates that a LEFT SHIFT is Present. Lymphocytes Auto (Unsp spec) [#/Vol]Ordered By: Mendoza Boogie on 09-03-2024 Lymphocytes (Bld) [#/Vol] 1.10 10*3/uL 0.83-4.51 [facility] Lymphocytes/100 WBC Auto (Un sp spec)Ordered By: Mendoza Boogie on 09-03-2024 Lymphocytes/100 WBC (Bld) 11.9 % Low 19-41 [facility] MCV (mean corpuscular volume ) determinationOrdered By: Mendoza Boogie on 09-03-2024 MCV (RBC) [Entitic vol] 93.2 fL 81-99 [facility] Mean corpuscular hemoglobin (MCH) determinationOrdered By: Mendoza Boogie on 09-03-2024 MCH (RBC) [Entitic mass] 28.9 pg 27.0-32.0 [facility] Mean corpuscular hemoglobin concentration (MCHC) determinationOrdered By: Mendoza Boogie on 09-03-2024 MCHC (RBC) [Mass/Vol] 31.0 g/dL Low 32-36 [facility] Mean platelet volume determi nationOrdered By: Mendoza Boogie on 09-03-2024 Platelet mean volume (Bld) [Entitic vol] 8.3 fL 6.2-12.0 [facility] Monocyte percentageOrdered B y: Mendoza Boogie on 09-03-2024 Monocytes/100 WBC (Bld) 8.3 % 0-10 [facility] Neutrophil percentageOrdered By: Mendoza Boogie on 09-03-2024 Neutrophils/100 WBC (Bld) 76.1 % High 47-70 [facility] Nucleated red blood cell per centageOrdered By: Mendoza Boogie on 09-03-2024 Nucleated RBC/100 WBC (Bld) [Ratio] 0 % 0-5 [facility] Platelet countOrdered By: Farzana Boogie on 09-03-2024 Platelets (Bld) [#/Vol] 691 10*3/uL High 150-450 [facility] Potassium measurementOrdered By: Mendoza Boogie on 09-03-2024 Potassium [Moles/Vol] 3.5 mmol/L 3.5-5.1 [facility] RBC Auto (Bld) [#/Vol]Ordere d By: Mendoza Boogie on 09-03-2024 RBC (Bld) [#/Vol] 3.81 10*6/uL Low 4.2-5.4 [facility] Serum anion gap measurementO rdered By: Mendoza Boogie on 09-03-2024 Anion gap [Moles/Vol] 7 mmol/L 5-15 [facility] Serum or plasma calcium jillian urement (mass/volume)Ordered By: Mendoza Boogie on 09-03-2024 Calcium [Mass/Vol] 8.5 mg/dL 8.5-10.1 [facility] Serum or plasma creatinine m easurement (mass/volume)Ordered By: Mendoza Boogie on 09-03-2024 Creatinine [Mass/Vol] 0.84 mg/dL 0.55-1.02 [facility] Comment on above: The validity of the calculated GFR & GFRAA in patients over 70 years has not been determined. Clinical correlation is essential. Serum or plasma urea nitroge n measurement (mass/volume)Ordered By: Mendoza Boogie on 09-03-2024 Urea nitrogen [Mass/Vol] 30 mg/dL High 7-18 [facility] Sodium levelOrdered By: Ten Boogie on 09-03-2024 Sodium [Moles/Vol] 138 mmol/L 136-145 [facility] White blood cell (WBC) count Ordered By: Mendoza Boogie on 09-03-2024 WBC (Bld) [#/Vol] 9.2 10*3/uL 4.4-11.0 [facility] CNOVon 08-28-2024 [facility] Office Visit (INTMWS ) KARLA CAI ([id number]) 1950 F Date Time Provider Department 08/28/24 1:20 PM SAVANNA KOTHARI INTMWS During your visit today, we recorded the following information about you: Temperature Pulse Blood pressure Weight 98.3 degrees 66/minute 122/68 79.4 kg Savanna Kothari, CONSULTING SOLUTION MANAGER.[facility] 08/28/2024 2:06 PM Signed CC: Patient presents with: Hospital F/U: [facility] Dr. Galloway. Has been having some dizziness off and on. [facility] Karla Cai is a 73 year old [...] She is scheduled for follow-up with the electronic science teacher on 09/03 and the surgeon on 10/07. 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 Normal [facility] CBC panel Auto (Bld)on 08-22 Erythrocyte distribution width (RBC) [Ratio] 16.9 % High 11.5 - 14.5 % [facility] Hematocrit (Bld) [Volume fraction] 28.1 % Low 36.0 - 46.0 % [facility] Hemoglobin (Bld) [Mass/Vol] 9.1 g/dL Low 12.0 - 16.0 g/dL [facility] Interpretation and review of laboratory results Abnormal [facility] MCH (RBC) [Entitic mass] 30.2 pg 26. 0 - 34.0 pg [facility] MCHC (RBC) [Mass/Vol] 32.4 g/dL 32.0 - 36.0 g/dL [facility] MCV (RBC) [Entitic vol] 93 fL 80 - 100 fL [facility] Nucleated RBC/100 WBC (Bld) [Ratio] 0 % [facility] Platelets (Bld) [#/Vol] 539 10*3/uL High [facility] RBC (Bld) [#/Vol] 3.01 10*6/uL [facility] WBC (Bld) [#/Vol] 15.8 10*3/uL [facility] Erythrocyte distribution width (RBC) [Ratio] 16.9 % High 11.5-14.5 [facility] Comment on above: Performed By: #### 5 8410-2 ####STEFANO TROY ([id number])[facility] ([facility])[address] [place] [address] Hematocrit (Bld) [Volume fraction] 28.1 % Low 36.0-46.0 [facility] Comment on above: Performed By: #### 5 8410-2 ####STEFANO TROY ([id number])[facility] ([facility])[address] [place] [address] Hemoglobin (Bld) [Mass/Vol] 9.1 g/dL Low 12.0-16.0 [facility] Comment on above: Performed By: #### 5 8410-2 ####STEFANO TROY ([id number])[facility] ([facility])[address] [place] [id number] MCH (RBC) [Entitic mass] 30.2 pg Normal 26.0-34.0 [facility] Comment on above: Performed By: #### 5 8410-2 ####STEFANO TROY ([id number])[facility] ([facility])[address] [place] [address] MCHC (RBC) [Mass/Vol] 32.4 g/dL Normal 32.0-36.0 [facility] Comment on above: Performed By: #### 5 8410-2 ####STEFANO TROY ([id number])[facility] ([facility])[address] [place] [address] MCV (RBC) [Entitic vol] 93 fL Normal 80-100 [facility] Comment on above: Performed By: #### 5 8410-2 ####STEFANO TROY ([id number])[facility] ([facility])[address] [place] [address] Nucleated RBC/100 WBC (Bld) [Ratio] 0.0 /100 WBCs Normal 0.0-0.0 [facility] Comment on above: Performed By: #### 5 8410-2 ####STEFANO TROY ([id number])[facility] ([facility])[address] [place] [address] Platelets (Bld) [#/Vol] 539 x10*3/uL High 150-450 [facility] Comment on above: Performed By: #### 5 8410-2 ####STEFANO TROY ([id number])[facility] ([facility])[address] [place] [address] RBC (Bld) [#/Vol] 3.01 x10*6/uL Low 4.00-5.20 [facility] Comment on above: Performed By: #### 5 8410-2 ####STEFANO TROY ([id number])[facility] ([facility])[address] [place], [place] [id number] WBC (Bld) [#/Vol] 15.8 x10*3/uL High 4.4-11.3 [facility] Comment on above: Performed By: #### 5 8410-2 ####STEFANO TROY ([id number])[facility] ([facility])[address] [place] [id number] Magnesiumon 08-22-2024 Magnesium [Mass/Vol] 1.9 mg/dL 1.60 - 2.40 mg/dL [facility] Magnesium [Mass/Vol] 1.90 mg/dL Normal 1.60-2.40 [facility] Comment on above: Performed By: #### 1 9123-9 ####STEFANO TROY ([id number])[facility] ([facility])[address] [place] [id number] Magnesium [Mass/Vol]on 08-22 Interpretation and review of laboratory results Normal [facility] No Panel Informationon 08-22 [facility] Renal function 2000 panelon 08-22-2024 Albumin BCP dye [Mass/Vol] 2.7 g/dL Low 3.4 - 5.0 g/dL [facility] Anion gap [Moles/Vol] 12 mmol/L 10 - 2 0 mmol/L [facility] Calcium [Mass/Vol] 7.9 mg/dL Low 8.6 - 10. 3 mg/dL [facility] Chloride [Moles/Vol] 108 mmol/L High 98 - 10 7 mmol/L [facility] CO2 [Moles/Vol] 24 mmol/L 21 - 32 mmol/L [facility] Creatinine [Mass/Vol] 0.74 mg/dL 0.50 - 1.05 mg/dL [facility] GFR/1.73 sq M.predicted among non-blacks MDRD (S/P/Bld) [Vol rate/Area] 85 mL/min/{1.73_m2} - PINF [facility] Glucose [Mass/Vol] 109 mg/dL High 74 - 99 mg/dL [facility] Interpretation and review of laboratory results Abnormal [facility] Phosphate [Mass/Vol] 3.6 mg/dL 2.5 - 4 .9 mg/dL [facility] Potassium [Moles/Vol] 4.3 mmol/L 3.5 - 5.3 mmol/L [facility] Sodium [Moles/Vol] 140 mmol/L 136 - 145 mmol/L [facility] Urea nitrogen [Mass/Vol] 32 mg/dL High 6 - 23 mg/d L [facility] Albumin BCP dye [Mass/Vol] 2.7 g/dL Low 3.4-5.0 [facility] Comment on above: Performed By: #### 2 4362-6 ####STEFANO TROY ([id number])[facility] ([facility])[address] [place] [address] Anion gap [Moles/Vol] 12 mmol/L Normal 10-20 [facility] Comment on above: Performed By: #### 2 4362-6 ####STEFANO TROY ([id number])[facility] ([facility])[address] [place] [address] Calcium [Mass/Vol] 7.9 mg/dL Low 8.6-10.3 [facility] Comment on above: Performed By: #### 2 4362-6 ####STEFANO TROY ([id number])[facility] ([facility])[address] [place] [address] Chloride [Moles/Vol] 108 mmol/L High 98-107 [facility] Comment on above: Performed By: #### 2 4362-6 ####STEFANO TROY ([id number])[facility] ([facility])[address] [place] [address] CO2 [Moles/Vol] 24 mmol/L Normal 21-32 [facility] Comment on above: Performed By: #### 2 4362-6 ####STEFANO TROY ([id number])[facility] ([facility])[address] [place] [address] Creatinine [Mass/Vol] 0.74 mg/dL Normal 0.50-1.05 [facility] Comment on above: Performed By: #### 2 4362-6 ####STEFANO TROY ([id number])[facility] ([facility])[address] [place] [address] Glomerular filtration rate/1.73 sq M.predicted 85 mL/min/1.73m*2 Normal >60 [facility] Comment on above: Result Comment: Calc ulations of estimated GFR are performed using the 2020 CKD-EPI Study Refit equation without the race variable for the IDMS-Traceable creatinine methods.https://jasn.asnjournals.org/content/ /ASN.7265832377 Performed By: #### 2 4362-6 ####STEFANO TROY ([id number])[facility] ([facility])[address] [place] [address] Glucose [Mass/Vol] 109 mg/dL High 74-99 [facility] Comment on above: Performed By: #### 2 4362-6 ####STEFANO TROY ([id number])[facility] ([facility])[address] [place] [address] Phosphate [Mass/Vol] 3.6 mg/dL Normal 2.5-4.9 [facility] Comment on above: Result Comment: The performance characteristics of phosphorus testing in heparinized plasma have been validated by the individual laboratory site where testing is performed. Testing on heparinized plasma is not approved by the FDA; however, such approval is not necessary. Performed By: #### 2 4362-6 ####STEFANO TROY ([id number])[facility] ([facility])[address] [place] [address] Potassium [Moles/Vol] 4.3 mmol/L Normal 3.5-5.3 [facility] Comment on above: Performed By: #### 2 4362-6 ####STEFANO TROY ([id number])[facility] ([facility])[address] [place] [address] Sodium [Moles/Vol] 140 mmol/L Normal 136-145 [facility] Comment on above: Performed By: #### 2 4362-6 ####STEFANO TROY ([id number])[facility] ([facility])[address] [place] [address] Urea nitrogen [Mass/Vol] 32 mg/dL High 6-23 [facility] Comment on above: Performed By: #### 2 4362-6 ####STEFANO TROY ([id number])[facility] ([facility])[address] [place] [id number] CBC panel Auto (Bld)on 08-21 Erythrocyte distribution width (RBC) [Ratio] 16.6 % High 11.5 - 14.5 % [facility] Hematocrit (Bld) [Volume fraction] 31.8 % Low 36.0 - 46.0 % [facility] Hemoglobin (Bld) [Mass/Vol] 9.9 g/dL Low 12.0 - 16.0 g/dL [facility] Interpretation and review of laboratory results Abnormal [facility] MCH (RBC) [Entitic mass] 29.4 pg 26. 0 - 34.0 pg [facility] MCHC (RBC) [Mass/Vol] 31.1 g/dL Low 32.0 - 36.0 g/dL [facility] MCV (RBC) [Entitic vol] 94 fL 80 - 100 fL [facility] Nucleated RBC/100 WBC (Bld) [Ratio] 0 % [facility] Platelets (Bld) [#/Vol] 614 10*3/uL High [facility] RBC (Bld) [#/Vol] 3.37 10*6/uL Low [facility] WBC (Bld) [#/Vol] 17.1 10*3/uL High [facility] Erythrocyte distribution width (RBC) [Ratio] 16.6 % High 11.5-14.5 [facility] Comment on above: Performed By: #### 5 8410-2 ####STEFANO TROY ([id number])[facility] ([facility])[address] [place] [address] Hematocrit (Bld) [Volume fraction] 31.8 % Low 36.0-46.0 [facility] Comment on above: Performed By: #### 5 8410-2 ####STEFANO TROY ([id number])[facility] ([facility])[address] [place] [address] Hemoglobin (Bld) [Mass/Vol] 9.9 g/dL Low 12.0-16.0 [facility] Comment on above: Performed By: #### 5 8410-2 ####STEFANO TROY ([id number])[facility] ([facility])[address] [place] [address] MCH (RBC) [Entitic mass] 29.4 pg Normal 26.0-34.0 [facility] Comment on above: Performed By: #### 5 8410-2 ####STEFANO TROY ([id number])[facility] ([facility])[address] [place] [address] MCHC (RBC) [Mass/Vol] 31.1 g/dL Low 32.0-36.0 [facility] Comment on above: Performed By: #### 5 8410-2 ####STEAFNO TROY ([id number])[facility] ([facility])[address] [place] [address] MCV (RBC) [Entitic vol] 94 fL Normal 80-100 [facility] Comment on above: Performed By: #### 5 8410-2 ####STEFANO RTOY ([id number])[facility] ([facility])[address] [place] [address] Nucleated RBC/100 WBC (Bld) [Ratio] 0.0 /100 WBCs Normal 0.0-0.0 [facility] Comment on above: Performed By: #### 5 8410-2 ####STEFANO TROY ([id number])[facility] ([facility])[address] [place] [address] Platelets (Bld) [#/Vol] 614 x10*3/uL High 150-450 [facility] Comment on above: Performed By: #### 5 8410-2 ####STEFANO TROY ([id number])[facility] ([facility])[address] [place] [address] RBC (Bld) [#/Vol] 3.37 x10*6/uL Low 4.00-5.20 [facility] Comment on above: Performed By: #### 5 8410-2 ####STEFANO TROY ([id number])[facility] ([facility])[address] [place] [address] WBC (Bld) [#/Vol] 17.1 x10*3/uL High 4.4-11.3 [facility] Comment on above: Performed By: #### 5 8410-2 ####STEFANO TROY ([id number])[facility] ([facility])[address] [place] [id number] Erythrocyte distribution width (RBC) [Ratio] 16.7 % High 11.5 - 14.5 % [facility] Hematocrit (Bld) [Volume fraction] 29.7 % Low 36.0 - 46.0 % [facility] Hemoglobin (Bld) [Mass/Vol] 9.3 g/dL Low 12.0 - 16.0 g/dL [facility] Interpretation and review of laboratory results Abnormal [facility] MCH (RBC) [Entitic mass] 30 pg 26. 0 - 34.0 pg [facility] MCHC (RBC) [Mass/Vol] 31.3 g/dL Low 32.0 - 36.0 g/dL [facility] MCV (RBC) [Entitic vol] 96 fL 80 - 100 fL [facility] Nucleated RBC/100 WBC (Bld) [Ratio] 0 % [facility] Platelets (Bld) [#/Vol] 542 10*3/uL High [facility] RBC (Bld) [#/Vol] 3.1 10*6/uL Low [facility] WBC (Bld) [#/Vol] 15.1 10*3/uL [facility] Glucose Test strip manual (B ld) [Mass/Vol]on 08-21-2024 Glucose [Mass/Vol] 118 mg/dL High 74 - 99 mg/dL [facility] Interpretation and review of laboratory results Abnormal [facility] Glucose [Mass/Vol] 118 mg/dL High 74-99 [facility] Comment on above: Performed By: #### 2 341-6 ####STEFANO TROY ([id number])[facility] ([facility])[address] [place] [address] Lavender Topon 08-21-2024 Extra Tube Hold for add-ons. [facility] Magnesiumon 08-21-2024 Magnesium [Mass/Vol] 2.2 mg/dL 1.60 - 2.40 mg/dL [facility] Magnesium [Mass/Vol] 2.20 mg/dL Normal 1.60-2.40 [facility] Comment on above: Performed By: #### 1 9123-9 ####STEFANO TROY ([id number])[facility] ([facility])[address] [place] [address] Magnesium [Mass/Vol]on 08-21 Interpretation and review of laboratory results Normal [facility] Renal function 2000 panelon 08-21-2024 Albumin BCP dye [Mass/Vol] 2.7 g/dL Low 3.4 - 5.0 g/dL [facility] Anion gap [Moles/Vol] 11 mmol/L 10 - 2 0 mmol/L [facility] Calcium [Mass/Vol] 7.7 mg/dL Low 8.6 - 10. 3 mg/dL [facility] Chloride [Moles/Vol] 107 mmol/L 98 - 10 7 mmol/L [facility] CO2 [Moles/Vol] 24 mmol/L 21 - 32 mmol/L [facility] Creatinine [Mass/Vol] 0.79 mg/dL 0.50 - 1.05 mg/dL [facility] GFR/1.73 sq M.predicted among non-blacks MDRD (S/P/Bld) [Vol rate/Area] 79 mL/min/{1.73_m2} - PINF [facility] Glucose [Mass/Vol] 114 mg/dL High 74 - 99 mg/dL [facility] Interpretation and review of laboratory results Abnormal [facility] Phosphate [Mass/Vol] 3.5 mg/dL 2.5 - 4 .9 mg/dL [facility] Potassium [Moles/Vol] 3.7 mmol/L 3.5 - 5.3 mmol/L [facility] Sodium [Moles/Vol] 138 mmol/L 136 - 145 mmol/L [facility] Urea nitrogen [Mass/Vol] 34 mg/dL High 6 - 23 mg/d L [facility] Albumin BCP dye [Mass/Vol] 2.7 g/dL Low 3.4-5.0 [facility] Comment on above: Performed By: #### 2 4362-6 ####STEFANO TROY ([id number])[facility] ([facility])[address] [place] [address] Anion gap [Moles/Vol] 11 mmol/L Normal 10-20 [facility] Comment on above: Performed By: #### 2 4362-6 ####STEFANO TROY ([id number])[facility] ([facility])[address] [place] [address] Calcium [Mass/Vol] 7.7 mg/dL Low 8.6-10.3 [facility] Comment on above: Performed By: #### 2 4362-6 ####STEFANO TROY ([id number])[facility] ([facility])[address] [place] [address] Chloride [Moles/Vol] 107 mmol/L Normal 98-107 [facility] Comment on above: Performed By: #### 2 4362-6 ####STEFANO TROY ([id number])[facility] ([facility])[address] [place] [address] CO2 [Moles/Vol] 24 mmol/L Normal 21-32 [facility] Comment on above: Performed By: #### 2 4362-6 ####STEFANO TROY ([id number])[facility] ([facility])[address] [place] [address] Creatinine [Mass/Vol] 0.79 mg/dL Normal 0.50-1.05 [facility] Comment on above: Performed By: #### 2 436-6 ####STEFANO TROY ([id number])[facility] ([facility])[address] [place] [address] Glomerular filtration rate/1.73 sq M.predicted 79 mL/min/1.73m*2 Normal >60 [facility] Comment on above: Result Comment: Calc ulations of estimated GFR are performed using the 2020 CKD-EPI Study Refit equation without the race variable for the IDMS-Traceable creatinine methods.https://jasn.asnjournals.org/content/early/ /ASN.7235403491 Performed By: #### 2 4362-6 ####STEFANO TROY ([id number])[facility] ([facility])[address] [place] [address] Glucose [Mass/Vol] 114 mg/dL High 74-99 [facility] Comment on above: Performed By: #### 2 4362-6 ####STEFANO TROY ([id number])[facility] ([facility])[address] [place] [address] Phosphate [Mass/Vol] 3.5 mg/dL Normal 2.5-4.9 [facility] Comment on above: Result Comment: The performance characteristics of phosphorus testing in heparinized plasma have been validated by the individual laboratory site where testing is performed. Testing on heparinized plasma is not approved by the FDA; however, such approval is not necessary. Performed By: #### 2 4362-6 ####STEFANO TROY ([id number])[facility] ([facility])[address] [place] [id number] Potassium [Moles/Vol] 3.7 mmol/L Normal 3.5-5.3 [facility] Comment on above: Performed By: #### 2 4362-6 ####STEFANO TROY ([id number])[facility] ([facility])[address] [place] [address] Sodium [Moles/Vol] 138 mmol/L Normal 136-145 [facility] Comment on above: Performed By: #### 2 4362-6 ####STEFANO TROY ([id number])[facility] ([facility])[address] [place] [address] Urea nitrogen [Mass/Vol] 34 mg/dL High 6-23 [facility] Comment on above: Performed By: #### 2 4362-6 ####STEFANO TROY ([id number])[facility] ([facility])[address] [place] [address] Urinalysis complete W Reflex Culture panel (U)on 08-21-2024 Appearance (U) Clear Clear [facility] Bilirubin (U) [Mass/Vol] Negative NEGATIVE [facility] Color (U) Yellow Light-Yellow , Yellow, Dark-Yellow [facility] Glucose Auto test strip (U) [Mass/Vol] Normal Normal mg/dL [facility] Interpretation and review of laboratory results Normal [facility] Ketones (U) [Mass/Vol] Negative NEGAT ELLEN mg/dL [facility] Leukocyte esterase Auto test strip Ql (U) Negative NEGATIVE [facility] Nitrite Auto test strip Ql (U) Negative NEGATIVE [facility] pH (U) 5 [pH] 5.0, 5.5, 6.0, 6.5, 7.0, 7.5, 8.0 [facility] Protein (U) [Mass/Vol] Negative NEGAT ELLEN, 10 (TRACE), 20 (TRACE) mg/dL [facility] RBC (U) [#/Vol] Negative NEGATIVE [facility] Specific gravity (U) [Rel density] 1.019 1.005 - 1.035 [facility] Urobilinogen (U) [Mass/Vol] Normal Normal mg/dL [facility] Appearance (U) Clear Normal Clear [facility] Comment on above: Performed By: #### 5 8077-9 ####STEFANO TROY ([id number])[facility] ([facility])[address] [place] [address] Bilirubin (U) [Mass/Vol] Negative Normal NEGATIVE [facility] Comment on above: Performed By: #### 5 8077-9 ####STEFANO TROY ([id number])[facility] ([facility])[address] [place] [address] Color (U) Yellow Normal Light-Yellow , Yellow, Dark-Yellow [facility] Comment on above: Performed By: #### 5 8077-9 ####STEFANO TROY ([id number])[facility] ([facility])[address] [place] [address] Glucose Auto test strip (U) [Mass/Vol] Normal Normal Normal [facility] Comment on above: Performed By: #### 5 8077-9 ####STEFANO TROY ([id number])[facility] ([facility])[address] [place] [address] Ketones (U) [Mass/Vol] Negative Normal [facility]GATIVE [facility] Comment on above: Performed By: #### 5 8077-9 ####STEFANO TROY ([id number])[facility] ([facility])[address] [place] [address] Leukocyte esterase Auto test strip Ql (U) Negative Normal NEGATIVE [facility] Comment on above: Performed By: #### 5 8077-9 ####STEFANO TROY ([id number])[facility] ([facility])[address] [place] [address] Nitrite Auto test strip Ql (U) Negative Normal NEGATIVE [facility] Comment on above: Performed By: #### 5 8077-9 ####STEFANO TROY ([id number])[facility] ([facility])[address] [place] [address] pH (U) 5.0 [pH] Normal 5.0, 5.5, 6.0, 6.5, 7.0, 7.5, 8.0 [facility] Comment on above: Performed By: #### 5 8077-9 ####STEFANO TROY ([id number])[facility] ([facility])[address] [place] [address] Protein (U) [Mass/Vol] Negative Normal NEGAT ELLEN, 10 (TRACE), 20 (TRACE) [facility] Comment on above: Performed By: #### 5 8077-9 ####STEFANO TROY ([id number])[facility] ([facility])[address] [place] [address] RBC (U) [#/Vol] Negative Normal NEGATIVE [facility] Comment on above: Performed By: #### 5 8077-9 ####STEFANO TROY ([id number])[facility] ([facility])[address] [place] [address] Specific gravity (U) [Rel density] 1.019 Normal 1.005-1.035 [facility] Comment on above: Performed By: #### 5 8077-9 ####STEFANO TROY ([id number])[facility] ([facility])[address] [place] [address] Urobilinogen (U) [Mass/Vol] Normal Normal Normal [facility] Comment on above: Performed By: #### 5 8077-9 ####STEFANO TROY ([id number])[facility] ([facility])[address] [place] [address] XR CHEST 1 VIEWon 08-21-2024 XR CHEST 1 VIEW Normal [facility] XR Chest Single viewon 08-21 [facility] Work Phone: [facility] Work Phone: Radiology Study observation (narrative) [facility] Work Phone: CBC panel Auto (Bld)on 08-20 Erythrocyte distribution width (RBC) [Ratio] 16.7 % High 11.5-14.5 [facility] Comment on above: Performed By: #### 5 8410-2 ####STEFANO TROY ([id number])[facility] ([facility])[address] [place] [address] Hematocrit (Bld) [Volume fraction] 29.7 % Low 36.0-46.0 [facility] Comment on above: Performed By: #### 5 8410-2 ####STEFANO TROY ([id number])[facility] ([facility])[address] [place] [address] Hemoglobin (Bld) [Mass/Vol] 9.3 g/dL Low 12.0-16.0 [facility] Comment on above: Performed By: #### 5 8410-2 ####STEFANO TROY ([id number])[facility] ([facility])[address] [place] [address] MCH (RBC) [Entitic mass] 30.0 pg Normal 26.0-34.0 [facility] Comment on above: Performed By: #### 5 8410-2 ####STEFANO TROY ([id number])[facility] ([facility])[address] [place] [address] MCHC (RBC) [Mass/Vol] 31.3 g/dL Low 32.0-36.0 [facility] Comment on above: Performed By: #### 5 8410-2 ####STEFANO TROY ([id number])[facility] ([facility])[address] [place] [id number] MCV (RBC) [Entitic vol] 96 fL Normal 80-100 [facility] Comment on above: Performed By: #### 5 8410-2 ####STEFANO TROY ([id number])[facility] ([facility])[address] [place] [address] Nucleated RBC/100 WBC (Bld) [Ratio] 0.0 /100 WBCs Normal 0.0-0.0 [facility] Comment on above: Performed By: #### 5 8410-2 ####STEFANO TROY ([id number])[facility] ([facility])[address] [place] [address] Platelets (Bld) [#/Vol] 542 x10*3/uL High 150-450 [facility] Comment on above: Performed By: #### 5 8410-2 ####STEFANO TROY ([id number])[facility] ([facility])[address] [place] [address] RBC (Bld) [#/Vol] 3.10 x10*6/uL Low 4.00-5.20 [facility] Comment on above: Performed By: #### 5 8410-2 ####STEFANO TROY ([id number])[facility] ([facility])[address] [place], [place] [id number] WBC (Bld) [#/Vol] 15.1 x10*3/uL High 4.4-11.3 [facility] Comment on above: Performed By: #### 5 8410-2 ####STEFANO TROY ([id number])[facility] ([facility])[address] [place] [id number] Glucose Test strip manual (B ld) [Mass/Vol]on 08-20-2024 Glucose [Mass/Vol] 144 mg/dL High 74 - 99 mg/dL [facility] Interpretation and review of laboratory results Abnormal [facility] Glucose [Mass/Vol] 144 mg/dL High 74-99 [facility] Comment on above: Performed By: #### 2 341-6 ####STEFANO TROY ([id number])[facility] ([facility])[address] [place] [address] Glucose [Mass/Vol] 114 mg/dL High 74 - 99 mg/dL [facility] Interpretation and review of laboratory results Abnormal [facility] Glucose [Mass/Vol] 114 mg/dL High 74-99 [facility] Comment on above: Performed By: #### 2 341-6 ####STEFANO TROY ([id number])[facility] ([facility])[address] [place] [address] Glucose [Mass/Vol] 140 mg/dL High 74 - 99 mg/dL [facility] Interpretation and review of laboratory results Abnormal [facility] Glucose [Mass/Vol] 140 mg/dL High 74-99 [facility] Comment on above: Performed By: #### 2 341-6 ####STEFANO TROY ([id number])[facility] ([facility])[address] [place] [address] Lavender Topon 08-20-2024 Extra Tube Hold for add-ons. [facility] Magnesiumon 08-20-2024 Magnesium [Mass/Vol] 2.16 mg/dL 1.60 - 2.40 mg/dL [facility] Magnesium [Mass/Vol] 2.16 mg/dL Normal 1.60-2.40 [facility] Comment on above: Order Comment: 2 yury rs after infusion complete. Performed By: #### 1 9123-9 ####STEFANO TROY ([id number])[facility] ([facility])[address] [id number] Magnesium [Mass/Vol]on 08-20 Interpretation and review of laboratory results Normal [facility] Renal function 2000 panelon 08-20-2024 Albumin BCP dye [Mass/Vol] 3 g/dL Low 3.4 - 5.0 g/dL [facility] Anion gap [Moles/Vol] 13 mmol/L 10 - 2 0 mmol/L [facility] Calcium [Mass/Vol] 8.3 mg/dL Low 8.6 - 10. 3 mg/dL [facility] Chloride [Moles/Vol] 106 mmol/L 98 - 10 7 mmol/L [facility] CO2 [Moles/Vol] 23 mmol/L 21 - 32 mmol/L [facility] Creatinine [Mass/Vol] 0.97 mg/dL 0.50 - 1.05 mg/dL [facility] GFR/1.73 sq M.predicted among non-blacks MDRD (S/P/Bld) [Vol rate/Area] 61 mL/min/{1.73_m2} - PINF [facility] Glucose [Mass/Vol] 142 mg/dL High 74 - 99 mg/dL [facility] Interpretation and review of laboratory results Abnormal [facility] Phosphate [Mass/Vol] 3.6 mg/dL 2.5 - 4 .9 mg/dL [facility] Potassium [Moles/Vol] 4.6 mmol/L 3.5 - 5.3 mmol/L [facility] Sodium [Moles/Vol] 137 mmol/L 136 - 145 mmol/L [facility] Urea nitrogen [Mass/Vol] 36 mg/dL High 6 - 23 mg/d L [facility] Albumin BCP dye [Mass/Vol] 3.0 g/dL Low 3.4-5.0 [facility] Comment on above: Performed By: #### 2 4362-6 ####STEFANO TRYO ([id number])[facility] ([facility])[address] [place] [address] Anion gap [Moles/Vol] 13 mmol/L Normal 10-20 [facility] Comment on above: Performed By: #### 2 4362-6 ####STEFANO TROY ([id number])[facility] ([facility])[address] [place] [address] Calcium [Mass/Vol] 8.3 mg/dL Low 8.6-10.3 [facility] Comment on above: Performed By: #### 2 4362-6 ####STEFANO TROY ([id number])[facility] ([facility])[address] [place] [address] Chloride [Moles/Vol] 106 mmol/L Normal 98-107 [facility] Comment on above: Performed By: #### 2 4362-6 ####STEFANO TROY ([id number])[facility] ([facility])[address] [place] [address] CO2 [Moles/Vol] 23 mmol/L Normal 21-32 [facility] Comment on above: Performed By: #### 2 4362-6 ####STEFANO TROY ([id number])[facility] ([facility])[address] [place] [address] Creatinine [Mass/Vol] 0.97 mg/dL Normal 0.50-1.05 [facility] Comment on above: Performed By: #### 2 4362-6 ####STEFANO TROY ([id number])[facility] ([facility])[address] [place] [address] Glomerular filtration rate/1.73 sq M.predicted 61 mL/min/1.73m*2 Normal >60 [facility] Comment on above: Result Comment: Calc ulations of estimated GFR are performed using the 2020 CKD-EPI Study Refit equation without the race variable for the IDMS-Traceable creatinine methods.https://jasn.asnjournals.org/content/ /ASN.4877014954 Performed By: #### 2 4362-6 ####STEFANO TROY ([id number])[facility] ([facility])[address] [place] [address] Glucose [Mass/Vol] 142 mg/dL High 74-99 [facility] Comment on above: Performed By: #### 2 4362-6 ####STEFANO TROY ([id number])[facility] ([facility])[address] [place] [address] Phosphate [Mass/Vol] 3.6 mg/dL Normal 2.5-4.9 [facility] Comment on above: Result Comment: The performance characteristics of phosphorus testing in heparinized plasma have been validated by the individual laboratory site where testing is performed. Testing on heparinized plasma is not approved by the FDA; however, such approval is not necessary. Performed By: #### 2 4362-6 ####STEFANO TROY ([id number])[facility] ([facility])[address] [place] [address] Potassium [Moles/Vol] 4.6 mmol/L Normal 3.5-5.3 [facility] Comment on above: Performed By: #### 2 4362-6 ####STEFANO TROY ([id number])[facility] ([facility])[address] [place] [address] Sodium [Moles/Vol] 137 mmol/L Normal 136-145 [facility] Comment on above: Performed By: #### 2 4362-6 ####STEFANO TROY ([id number])[facility] ([facility])[address] [place] [address] Urea nitrogen [Mass/Vol] 36 mg/dL High 6-23 [facility] Comment on above: Performed By: #### 2 4362-6 ####STEFANO TROY ([id number])[facility] ([facility])[address] [place] [address] Surgical pathology studyOrde red By: Marisela Orlando on 08-20-2024 Laboratory comment Dharmesh (Report) p0ujyUSvIQXix6qpSGBlqD FuZzEwMzNcZnRuYmpcdWMx RWbvthBxOIxij5PxS0WwPk AwMFxhbnNpXGRlZmxhbmcx DALbCRZ1ywXcQNYyHLvrRL IcQGqiKg3hiFJyzJbcFcXq NZNna7rsxiVJYGbrKGELUL p8t6dxOFPgZlV5bYWyZNwf N7xrwbKrxHXcV0Tym5PoHE v8oJ46QIYqvW1hiHFcTPqc liPsFhT8IJpeJGVlOgK4MG HekFYoWVIuQ4asIPCgRQxs YFFyOCtogIEwFPQ6hQpop5 G4aPUhpPKspRplBtEnQcZr QjSSs0YzCCp5sXocR3QbBH KmUyS4xHVpCRRfLVwaYJNf VNAxoiI3tN33OJupdoV9yY Ulf3Pfj32nb890qD4jiAOe MAW3IBXzXMHxkHJhQKTlLP U7EKMznDCiW2dvOoCzpUWv F5LxAdHzlJMxX1LwRsQlqA IkO6OtRaVdhOJmISNrrVH3 FMrdl006IIV3LcQnUK1mV5 Ewh0G8gK8rcTRmSQMxiTWo NzOlBDNwos9qlBPtNXsaz5 VhXSH4vzO4cAIbjLPmUBQv AX37Iljas9WcDmwaKLD6EI JrvjSfi4Qxq7tyBaWhdwOl M6ypC7WjTXGkXQLqDYKpUg SyorGuj4Mmn8YtvAPymUw9 n8qvCLKgNMPpqUvhq7hwXV O3BXUhM6J3fFEag9eaQUba NAEwjOQ1cmM3NXaoJPSsti R6doL1SEkcBHWnrKE4roO9 URthICXyHkN3ntS9HYagQL NmRVG6TfHiGOBrb0Myhbpk CmJir0PjeBQiTSsfQ74nz0 17AVWvycMiJ6vikBFwfhks eRCohcwvEFpawsK6BUFzST BsYWluXGYxXGZzMjBcbGFu ZzEwMzNcaGljaFxmMVxkYm HrTMZbTJlaY6gqGePpRtAl QYIFtKT6lMWdz1oadsZ7rI TdPH2xTVPaxYGcrlEyv9R0 OBA6tPMisL2eiTXlEVAfcV SiwtPmbc57dLCkfPS1OYFs MUGrrMZpdZ6uFIArEXDMeU 5hbCBJbnRlcnByZXRhdGlv cx2YoTPajd7tqQRvH2FcsT lmaWVzIHRoYXQgdGhleSBo PRJaPGUbcuhly9CcNJQrfO IgN7NgIN4tHSYpcb55 [facility] Work Phone: Pathology report Cancer Narrative [facility] Work Phone: Pathology report final diagnosis Narrative u9vhwVShLMJhhCZvHFvdVk tjodTmOZNuzBTdC9Fxuina CDrlDU2fYQ9ukCzhmJFvpH SeAJClUbLzx9ctr239tSIr z7qzMTWLdwzuoBn2eXhzB6 7cx4F5FxyrW9ifLTScGCif PCJeAOdpvDIbGEe7QOYsxF VydzEyMjQwXHBhcGVyaDE1 ESEkJS3acmrjMYasLQotKP SuexE8RZBuaLRvP9EhGEKw ZZ6wnzwjPXL3PLuoKVDoYP A9UsSiOWJki6Okbnr1VsYv iYb6j8oiOFDvWIZguNvzy8 bzRRE2TEKioCPbM7hnpS6l RVLcUC3tavpkh6rcSJicHQ amJZIfeZD8izD6HTSazMMs N6ZcpL2lAMMkKIEvxmDzyH xwjS4qFcsdozOlCJZlNAPQ T8OINYuIAbDLM9WSCTJnJQ xJK9JWZjtmXFZeIwKvQG2k QkVOSUdOIEFPUlRJQyBXQU xMLCBDTElOSUNBTExZIEFO MYZAMKUHIQFYSWFVYb0nR5 YxICBccGFyXHBhcn0= [facility] Work Phone: Pathology report gross observation Narrative y4ytdFYqMKReqRDjFQihHq ikvlJuQFJpvIRwS5Dceesi FYluDG8rEF2ypEarhSUvaR MpXMXrPiWpr5cnq435lMFn i1ifDRMSeqhxbAc4mIkgL6 2sf5T7KmebR66unOBoZTA9 BLVfDXUldQEsXGHyUVZ0OZ JdyENbN7vnDVYpRE3cqfyk VUvfEWbvHLQstQO1YKAffI ZnH9SgQHUgIOhhPQQqiwx6 ZlXhTm0txQThjLohFAlkHb hplQijp7GzkASbIPtxSOZz CVFwZOwqkdfqNXo5WVBgDI oekMHlPF6lzTfkCissoYpb c4UxhUWdGXnuVVOcYXZnLG qtKDGcU5UWYFOvOzS0UTV1 LibmXXq2QLs0DG9ZLqSaHM LzDIG5XVF4VoWvJEr2TQua JJ9RVUPhUDLlOXNrRhWnTA QzNTMgXFxuaCBcXHQgMiBc NSFuPEXwUYrwpNTpKF0jQF ijWpF4CYXfqqQra2PuUDqz xRfsUNVjUjQteEqzvS1jFl OpNYKPPaNwNzGsLUq2ZMTz xB9kTy9dkFJqrQ4cPZehDq PqJDDhi6q9oIJ7sAJnnWT3 hLIvzIdwKC0wfMKcHW2zQK wnl6DlgWUrNU76iMZuwaLx jnJjKzFibuQoJtF3tIGssH UiLCBhcmUgbXVsdGlwbGUg h9PniDPuwKXkv7VoOJ4ptW qzJKFuq7V4ARSjT8qjSWwt mYtqGhC5wzTiMm3hIEylZl 70GJtjSL1zTHXyZiEJjJUy c2PewFOirpDfNdGhY64qrD 7dzZqtO7grSOToOwKPjYPa xF68jP6spOQhpRJdJRGaOI UrOOGtnl54KAIyrJ7kk7Zm TURoSJOazWUcAmwiYFI9sG Zcf9BxjGYhy4Dxbn0rZVrx IGFkdmVudGlhbCBzdXJmYW IlMRDkcK0is4LvTBGmlbVt ptKsvxTbET4eHD8hlYXehQ Oia5HeiFEnNU2yNkVeguUn DF86GIQxsaWss4EimBpkxh YcWVPcUMC2Tl9fcJOtLJFe jpXiynUsO6Hco7E4bGUjCD BhclxwYXJkXHNhMzBcZXBp J5wzBSKdZMILU8jpQLGoC1 KsC7ZlloL4o6mtrWgyv5Eo xUJlQH3nmRGnmB== [facility] Work Phone: Pathology report relevant history Narrative g1oiuGPaXQUuu1qmNRArgG UoKcLvVcCfTmDwLgt0RBGx szU4Kvg8MRWpGZwxaB0kNN HaNAhiU2vonsWjoEXvMCXp CNd6vV2ouHddcW3sKjZsOa MoAZNWaaSae1FdRPybB61z t2sdQaqfBZAwWE3oeYM5j6 3df9JmMYWgXY3ppC3iHYAc cnRhIHdpdGhvdXQgcnVwdH PnXSIeE65MGZmEYgfiM8x8 WZ2fSK4awDIgVI6= [facility] Work Phone: [facility] Work Phone: CBC panel Auto (Bld)on 08-19 Erythrocyte distribution width (RBC) [Ratio] 16 % High 11.5 - 14.5 % [facility] Hematocrit (Bld) [Volume fraction] 27.6 % Low 36.0 - 46.0 % [facility] Hemoglobin (Bld) [Mass/Vol] 9 g/dL Low 12.0 - 16.0 g/dL [facility] Interpretation and review of laboratory results Abnormal [facility] MCH (RBC) [Entitic mass] 30.6 pg 26. 0 - 34.0 pg [facility] MCHC (RBC) [Mass/Vol] 32.6 g/dL 32.0 - 36.0 g/dL [facility] MCV (RBC) [Entitic vol] 94 fL 80 - 100 fL [facility] Nucleated RBC/100 WBC (Bld) [Ratio] 0.2 % High [facility] Platelets (Bld) [#/Vol] 433 10*3/uL [facility] RBC (Bld) [#/Vol] 2.94 10*6/uL Low [facility] WBC (Bld) [#/Vol] 11.8 10*3/uL High [facility] Erythrocyte distribution width (RBC) [Ratio] 16.0 % High 11.5-14.5 [facility] Comment on above: Performed By: #### 5 8410-2 ####STEFANO TROY ([id number])[facility] ([facility])[address] [place] [address] Hematocrit (Bld) [Volume fraction] 27.6 % Low 36.0-46.0 [facility] Comment on above: Performed By: #### 5 8410-2 ####STEFANO TROY ([id number])[facility] ([facility])[address] [place] [id number] Hemoglobin (Bld) [Mass/Vol] 9.0 g/dL Low 12.0-16.0 [facility] Comment on above: Performed By: #### 5 8410-2 ####STEFANO TROY ([id number])[facility] ([facility])[address] [place] [address] MCH (RBC) [Entitic mass] 30.6 pg Normal 26.0-34.0 [facility] Comment on above: Performed By: #### 5 8410-2 ####STEFANO TROY ([id number])[facility] ([facility])[address] [place] [address] MCHC (RBC) [Mass/Vol] 32.6 g/dL Normal 32.0-36.0 [facility] Comment on above: Performed By: #### 5 8410-2 ####STEFANO TROY ([id number])[facility] ([facility])[address] [place] [address] MCV (RBC) [Entitic vol] 94 fL Normal 80-100 [facility] Comment on above: Performed By: #### 5 8410-2 ####STEFANO TROY ([id number])[facility] ([facility])[address] [place] [address] Nucleated RBC/100 WBC (Bld) [Ratio] 0.2 /100 WBCs High 0.0-0.0 [facility] Comment on above: Performed By: #### 5 8410-2 ####STEFANO TROY ([id number])[facility] ([facility])[address] [place] [address] Platelets (Bld) [#/Vol] 433 x10*3/uL Normal 150-450 [facility] Comment on above: Performed By: #### 5 8410-2 ####STEFANO TROY ([id number])[facility] ([facility])[address] [place] [address] RBC (Bld) [#/Vol] 2.94 x10*6/uL Low 4.00-5.20 [facility] Comment on above: Performed By: #### 5 8410-2 ####STEFANO TROY ([id number])[facility] ([facility])[address] [place] [address] WBC (Bld) [#/Vol] 11.8 x10*3/uL High 4.4-11.3 [facility] Comment on above: Performed By: #### 5 8410-2 ####STEFANO TROY ([id number])[facility] ([facility])[address] [place] [id number] ECG 12-LEADon 08-19-2024 ECG 12-LEAD Ventricular Rate 109 Atrial Rate 117 QRS Duration 144 Q-T Interval 334 QTC Calculation(Bazett) 449 R Seward 113 T Seward -38 QRS Count 18 Q Onset 213 [...] changes have occurred Confirmed by Gurjit Bower ([id number]) on 08/25/2024 5:44:02 PM Normal [facility] Electrocardiogram 12-lead [place] N for arrhythmiaOrdered By: Kevin Kenyon on 08-19-2024 Atrial Rate 92 BPM [facility] Work Phone: [phone] P Seward 40 degrees [facility] Work Phone: [phone] P Offset 179 ms [facility] Work Phone: [phone] P Onset 130 ms [facility] Work Phone: [phone] [place] Interval 168 ms [facility] Work Phone: [phone] Q Onset 214 ms [facility] Work Phone: [phone] QRS Count 15 beats [facility] Work Phone: [phone] QRS Duration 134 ms [facility] Work Phone: [phone] QT Interval 430 ms [facility] Work Phone: [phone] QTC Calculation(Bazett) 531 ms [facility] Work Phone: [phone] QTC Fredericia 495 ms [facility] Work Phone: [phone] R [place]ard 136 degrees [facility] Work Phone: [phone] T [place] 47 degrees [facility] Work Phone: [phone] T Offset 429 ms [facility] Work Phone: [phone] Ventricular Rate 92 BPM [facility] Work Phone: [phone] [facility] Work Phone: [phone] Electrocardiogram 12-lead [place] N for arrhythmiaon 08-19-2024 [facility] Work Phone: Glucose Test strip manual (B ld) [Mass/Vol]on 08-19-2024 Glucose [Mass/Vol] 121 mg/dL High 74 - 99 mg/dL [facility] Interpretation and review of laboratory results Abnormal [facility] Glucose [Mass/Vol] 121 mg/dL High 74-99 [facility] Comment on above: Performed By: #### 2 341-6 ####STEFANO RTOY ([id number])[facility] ([facility])[address] [place] [address] Glucose [Mass/Vol] 137 mg/dL High 74 - 99 mg/dL [facility] Interpretation and review of laboratory results Abnormal [facility] Glucose [Mass/Vol] 137 mg/dL High 74-99 [facility] Comment on above: Performed By: #### 2 341-6 ####STEFANO TROY ([id number])[facility] ([facility])[address] [place] [address] Glucose [Mass/Vol] 128 mg/dL High 74 - 99 mg/dL [facility] Interpretation and review of laboratory results Abnormal [facility] Glucose [Mass/Vol] 128 mg/dL High 74-99 [facility] Comment on above: Performed By: #### 2 341-6 ####STEFANO TROY ([id number])[facility] ([facility])[address] [place] [address] Glucose [Mass/Vol] 122 mg/dL High 74 - 99 mg/dL [facility] Interpretation and review of laboratory results Abnormal [facility] Glucose [Mass/Vol] 122 mg/dL High 74-99 [facility] Comment on above: Performed By: #### 2 341-6 ####STEFANO TROY ([id number])[facility] ([facility])[address] [place] [id number] Magnesiumon 08-19-2024 Magnesium [Mass/Vol] 1.91 mg/dL 1.60 - 2.40 mg/dL [facility] Magnesium [Mass/Vol] 1.91 mg/dL Normal 1.60-2.40 [facility] Comment on above: Performed By: #### 1 9123-9 ####STEFANO TROY ([id number])[facility] ([facility])[address] [place] [address] Magnesium [Mass/Vol]on 08-19 Interpretation and review of laboratory results Normal [facility] No Panel Informationon 08-19 [facility] Renal function 2000 panelon 08-19-2024 Albumin BCP dye [Mass/Vol] 2.7 g/dL Low 3.4 - 5.0 g/dL [facility] Anion gap [Moles/Vol] 12 mmol/L 10 - 2 0 mmol/L [facility] Calcium [Mass/Vol] 7.6 mg/dL Low 8.6 - 10. 3 mg/dL [facility] Chloride [Moles/Vol] 107 mmol/L 98 - 10 7 mmol/L [facility] CO2 [Moles/Vol] 24 mmol/L 21 - 32 mmol/L [facility] Creatinine [Mass/Vol] 0.81 mg/dL 0.50 - 1.05 mg/dL [facility] GFR/1.73 sq M.predicted among non-blacks MDRD (S/P/Bld) [Vol rate/Area] 76 mL/min/{1.73_m2} - PINF [facility] Glucose [Mass/Vol] 104 mg/dL High 74 - 99 mg/dL [facility] Interpretation and review of laboratory results Abnormal [facility] Phosphate [Mass/Vol] 4 mg/dL 2.5 - 4 .9 mg/dL [facility] Potassium [Moles/Vol] 4 mmol/L 3.5 - 5.3 mmol/L [facility] Sodium [Moles/Vol] 139 mmol/L 136 - 145 mmol/L [facility] Urea nitrogen [Mass/Vol] 33 mg/dL High 6 - 23 mg/d L [facility] Albumin BCP dye [Mass/Vol] 2.7 g/dL Low 3.4-5.0 [facility] Comment on above: Performed By: #### 2 4362-6 ####STEFANO TROY ([id number])[facility] ([facility])[address] [place] [address] Anion gap [Moles/Vol] 12 mmol/L Normal 10-20 [facility] Comment on above: Performed By: #### 2 4362-6 ####STEFANO TROY ([id number])[facility] ([facility])[address] [place] [address] Calcium [Mass/Vol] 7.6 mg/dL Low 8.6-10.3 [facility] Comment on above: Performed By: #### 2 4362-6 ####STEFANO TROY ([id number])[facility] ([facility])[address] [place] [address] Chloride [Moles/Vol] 107 mmol/L Normal 98-107 [facility] Comment on above: Performed By: #### 2 4362-6 ####STEFANO TROY ([id number])[facility] ([facility])[address] [place] [address] CO2 [Moles/Vol] 24 mmol/L Normal 21-32 [facility] Comment on above: Performed By: #### 2 4362-6 ####STEFANO TROY ([id number])[facility] ([facility])[address] [place] [address] Creatinine [Mass/Vol] 0.81 mg/dL Normal 0.50-1.05 [facility] Comment on above: Performed By: #### 2 4362-6 ####STEFANO TROY ([id number])[facility] ([facility])[address] [place] [address] Glomerular filtration rate/1.73 sq M.predicted 76 mL/min/1.73m*2 Normal >60 [facility] Comment on above: Result Comment: Calc ulations of estimated GFR are performed using the 2020 CKD-EPI Study Refit equation without the race variable for the IDMS-Traceable creatinine methods.https://jasn.asnjournals.org/content/early/ /ASN.0736200159 Performed By: #### 2 4362-6 ####STEFANO TROY ([id number])[facility] ([facility])[address] [place] [address] Glucose [Mass/Vol] 104 mg/dL High 74-99 [facility] Comment on above: Performed By: #### 2 4362-6 ####STEFANO TROY ([id number])[facility] ([facility])[address] [place] [address] Phosphate [Mass/Vol] 4.0 mg/dL Normal 2.5-4.9 [facility] Comment on above: Result Comment: The performance characteristics of phosphorus testing in heparinized plasma have been validated by the individual laboratory site where testing is performed. Testing on heparinized plasma is not approved by the FDA; however, such approval is not necessary. Performed By: #### 2 4362-6 ####STEFANO TROY ([id number])[facility] ([facility])[address] [place] [address] Potassium [Moles/Vol] 4.0 mmol/L Normal 3.5-5.3 [facility] Comment on above: Performed By: #### 2 4362-6 ####STEFANO TROY ([id number])[facility] ([facility])[address] [place] [address] Sodium [Moles/Vol] 139 mmol/L Normal 136-145 [facility] Comment on above: Performed By: #### 2 4362-6 ####STEFANO TROY ([id number])[facility] ([facility])[address] [place] [address] Urea nitrogen [Mass/Vol] 33 mg/dL High 6-23 [facility] Comment on above: Performed By: #### 2 4362-6 ####STEFANO TROY ([id number])[facility] ([facility])[address] [place] [address] XR CHEST 1 VIEWon 08-19-2024 XR CHEST 1 VIEW Normal [facility] XR Chest Single viewon 08-19 [facility] Work Phone: [facility] Work Phone: Radiology Study observation (narrative) [facility] Work Phone: CBC panel Auto (Bld)on 08-18 Erythrocyte distribution width (RBC) [Ratio] 15.9 % High 11.5 - 14.5 % [facility] Hematocrit (Bld) [Volume fraction] 27.8 % Low 36.0 - 46.0 % [facility] Hemoglobin (Bld) [Mass/Vol] 8.9 g/dL Low 12.0 - 16.0 g/dL [facility] Interpretation and review of laboratory results Abnormal [facility] MCH (RBC) [Entitic mass] 29.2 pg 26. 0 - 34.0 pg [facility] MCHC (RBC) [Mass/Vol] 32 g/dL 32.0 - 36.0 g/dL [facility] MCV (RBC) [Entitic vol] 91 fL 80 - 100 fL [facility] Nucleated RBC/100 WBC (Bld) [Ratio] 0.3 % High [facility] Platelets (Bld) [#/Vol] 409 10*3/uL [facility] RBC (Bld) [#/Vol] 3.05 10*6/uL Low [facility] WBC (Bld) [#/Vol] 11.5 10*3/uL High [facility] Erythrocyte distribution width (RBC) [Ratio] 15.9 % High 11.5-14.5 [facility] Comment on above: Performed By: #### 5 8410-2 ####STEFANO TROY ([id number])[facility] ([facility])[address] [place] [address] Hematocrit (Bld) [Volume fraction] 27.8 % Low 36.0-46.0 [facility] Comment on above: Performed By: #### 5 8410-2 ####STEFANO TROY ([id number])[facility] ([facility])[address] [place] [address] Hemoglobin (Bld) [Mass/Vol] 8.9 g/dL Low 12.0-16.0 [facility] Comment on above: Performed By: #### 5 8410-2 ####STEFANO TROY ([id number])[facility] ([facility])[address] [place] [address] MCH (RBC) [Entitic mass] 29.2 pg Normal 26.0-34.0 [facility] Comment on above: Performed By: #### 5 8410-2 ####STEFANO TROY ([id number])[facility] ([facility])[address] [place] [id number] MCHC (RBC) [Mass/Vol] 32.0 g/dL Normal 32.0-36.0 [facility] Comment on above: Performed By: #### 5 8410-2 ####STEFANO TROY ([id number])[facility] ([facility])[address] [place] [address] MCV (RBC) [Entitic vol] 91 fL Normal 80-100 [facility] Comment on above: Performed By: #### 5 8410-2 ####STEFANO TROY ([id number])[facility] ([facility])[address] [place] [address] Nucleated RBC/100 WBC (Bld) [Ratio] 0.3 /100 WBCs High 0.0-0.0 [facility] Comment on above: Performed By: #### 5 8410-2 ####STEFANO TROY ([id number])[facility] ([facility])[address] [place] [address] Platelets (Bld) [#/Vol] 409 x10*3/uL Normal 150-450 [facility] Comment on above: Performed By: #### 5 8410-2 ####STEFANO TROY ([id number])[facility] ([facility])[address] [place] [address] RBC (Bld) [#/Vol] 3.05 x10*6/uL Low 4.00-5.20 [facility] Comment on above: Performed By: #### 5 8410-2 ####STEFANO TROY ([id number])[facility] ([facility])[address] [place] [address] WBC (Bld) [#/Vol] 11.5 x10*3/uL High 4.4-11.3 [facility] Comment on above: Performed By: #### 5 8410-2 ####STEFANO TROY ([id number])[facility] ([facility])[address] [place] [address] Glucose Test strip manual (B ld) [Mass/Vol]on 08-18-2024 Glucose [Mass/Vol] 138 mg/dL High 74 - 99 mg/dL [facility] Interpretation and review of laboratory results Abnormal [facility] Glucose [Mass/Vol] 138 mg/dL High 74-99 [facility] Comment on above: Performed By: #### 2 341-6 ####STEFANO TROY ([id number])[facility] ([facility])[address] [place] [address] Glucose [Mass/Vol] 137 mg/dL High 74 - 99 mg/dL [facility] Interpretation and review of laboratory results Abnormal [facility] Glucose [Mass/Vol] 137 mg/dL High 74-99 [facility] Comment on above: Performed By: #### 2 341-6 ####STEFANO TROY ([id number])[facility] ([facility])[address] [place] [address] Glucose [Mass/Vol] 121 mg/dL High 74 - 99 mg/dL [facility] Interpretation and review of laboratory results Abnormal [facility] Glucose [Mass/Vol] 121 mg/dL High 74-99 [facility] Comment on above: Performed By: #### 2 341-6 ####STEFANO TROY ([id number])[facility] ([facility])[address] [place] [address] Glucose [Mass/Vol] 161 mg/dL High 74 - 99 mg/dL [facility] Interpretation and review of laboratory results Abnormal [facility] Glucose [Mass/Vol] 161 mg/dL High 74-99 [facility] Comment on above: Performed By: #### 2 341-6 ####STEFANO TROY ([id number])[facility] ([facility])[address] [place] [address] Glucose [Mass/Vol] 113 mg/dL High 74 - 99 mg/dL [facility] Interpretation and review of laboratory results Abnormal [facility] Glucose [Mass/Vol] 113 mg/dL High 74-99 [facility] Comment on above: Performed By: #### 2 341-6 ####STEFANO TROY ([id number])[facility] ([facility])[address] [place] [id number] Guidance for thoracentesis o f Cheston 08-18-2024 [facility] Work Phone: [facility] Work Phone: Radiology Study observation (narrative) [facility] Work Phone: Magnesiumon 08-18-2024 Magnesium [Mass/Vol] 2.08 mg/dL 1.60 - 2.40 mg/dL [facility] Magnesium [Mass/Vol] 2.08 mg/dL Normal 1.60-2.40 [facility] Comment on above: Performed By: #### 1 9123-9 ####STEFANO TROY ([id number])[facility] ([facility])[address] [id number] Magnesium [Mass/Vol]on 08-18 Interpretation and review of laboratory results Normal [facility] No Panel Informationon 08-18 [facility] Renal function 2000 panelon 08-18-2024 Albumin BCP dye [Mass/Vol] 3 g/dL Low 3.4 - 5.0 g/dL [facility] Anion gap [Moles/Vol] 12 mmol/L 10 - 2 0 mmol/L [facility] Calcium [Mass/Vol] 7.8 mg/dL Low 8.6 - 10. 3 mg/dL [facility] Chloride [Moles/Vol] 106 mmol/L 98 - 10 7 mmol/L [facility] CO2 [Moles/Vol] 25 mmol/L 21 - 32 mmol/L [facility] Creatinine [Mass/Vol] 0.79 mg/dL 0.50 - 1.05 mg/dL [facility] GFR/1.73 sq M.predicted among non-blacks MDRD (S/P/Bld) [Vol rate/Area] 79 mL/min/{1.73_m2} - PINF [facility] Glucose [Mass/Vol] 118 mg/dL High 74 - 99 mg/dL [facility] Interpretation and review of laboratory results Abnormal [facility] Phosphate [Mass/Vol] 3.6 mg/dL 2.5 - 4 .9 mg/dL [facility] Potassium [Moles/Vol] 4.2 mmol/L 3.5 - 5.3 mmol/L [facility] Sodium [Moles/Vol] 139 mmol/L 136 - 145 mmol/L [facility] Urea nitrogen [Mass/Vol] 35 mg/dL High 6 - 23 mg/d L [facility] Albumin BCP dye [Mass/Vol] 3.0 g/dL Low 3.4-5.0 [facility] Comment on above: Performed By: #### 2 4362-6 ####STEFANO TROY ([id number])[facility] ([facility])[address] [place] [address] Anion gap [Moles/Vol] 12 mmol/L Normal 10-20 [facility] Comment on above: Performed By: #### 2 4362-6 ####STEFANO TROY ([id number])[facility] ([facility] [id number] Calcium [Mass/Vol] 7.8 mg/dL Low 8.6-10.3 [facility] Comment on above: Performed By: #### 2 4362-6 ####STEFANO TROY ([id number])[facility] ([facility])[address] [place] [address] Chloride [Moles/Vol] 106 mmol/L Normal 98-107 [facility] Comment on above: Performed By: #### 2 4362-6 ####STEFANO TROY ([id number])[facility] ([facility])[address] [place] [address] CO2 [Moles/Vol] 25 mmol/L Normal 21-32 [facility] Comment on above: Performed By: #### 2 436-6 ####STEFANO TROY ([id number])[facility] ([facility])[address] [place] [address] Creatinine [Mass/Vol] 0.79 mg/dL Normal 0.50-1.05 [facility] Comment on above: Performed By: #### 2 4362-6 ####STEFANO TROY ([id number])[facility] ([facility])[address] [place] [address] Glomerular filtration rate/1.73 sq M.predicted 79 mL/min/1.73m*2 Normal >60 [facility] Comment on above: Result Comment: Calc ulations of estimated GFR are performed using the 2020 CKD-EPI Study Refit equation without the race variable for the IDMS-Traceable creatinine methods.https://jasn.asnjournals.org/content/ /ASN.5288935141 Performed By: #### 2 4362-6 ####STEFANO TROY ([id number])[facility] ([facility])[address] [place] [address] Glucose [Mass/Vol] 118 mg/dL High 74-99 [facility] Comment on above: Performed By: #### 2 4362-6 ####STEFANO TROY ([id number])[facility] ([facility])[address] [place] [address] Phosphate [Mass/Vol] 3.6 mg/dL Normal 2.5-4.9 [facility] Comment on above: Result Comment: The performance characteristics of phosphorus testing in heparinized plasma have been validated by the individual laboratory site where testing is performed. Testing on heparinized plasma is not approved by the FDA; however, such approval is not necessary. Performed By: #### 2 4362-6 ####STEFANO TROY ([id number])[facility] ([facility])[address] [place] [address] Potassium [Moles/Vol] 4.2 mmol/L Normal 3.5-5.3 [facility] Comment on above: Performed By: #### 2 4362-6 ####STEFANO TROY ([id number])[facility] ([facility])[address] [place] [address] Sodium [Moles/Vol] 139 mmol/L Normal 136-145 [facility] Comment on above: Performed By: #### 2 4362-6 ####STEFANO TROY ([id number])[facility] ([facility])[address] [place] [address] Urea nitrogen [Mass/Vol] 35 mg/dL High 6-23 [facility] Comment on above: Performed By: #### 2 4362-6 ####STEFANO TROY ([id number])[facility] ([facility])[address] [place] [address] US THORACENTESISon 4 US THORACENTESIS Normal [facility] XR CHEST 1 VIEWon 08-18-2024 XR CHEST 1 VIEW Normal [facility] XR CHEST 2 VIEWSon 4 XR CHEST 2 VIEWS Normal [facility] XR Chest 2 Viewson 4 [facility] Work Phone: Radiology Study observation (narrative) [facility] Work Phone: XR Chest 2 ViewsOrdered By: Elisabet Borges on 08-18-2024 [facility] Work Phone: XR Chest Single viewon 08-18 [facility] Work Phone: [facility] Work Phone: Radiology Study observation (narrative) [facility] Work Phone: Bacteria identified Cx Nom ( Bld)on 08-17-2024 Interpretation and review of laboratory results Normal [facility] Blood Cultureon 08-17-2024 Bacteria identified Cx Nom (Bld) No growth at 4 days - FINAL REPORT [facility] CBC panel Auto (Bld)on 08-17 Erythrocyte distribution width (RBC) [Ratio] 15.3 % High 11.5 - 14.5 % [facility] Hematocrit (Bld) [Volume fraction] 25.5 % Low 36.0 - 46.0 % [facility] Hemoglobin (Bld) [Mass/Vol] 8.4 g/dL Low 12.0 - 16.0 g/dL [facility] Interpretation and review of laboratory results Abnormal [facility] MCH (RBC) [Entitic mass] 30.3 pg 26. 0 - 34.0 pg [facility] MCHC (RBC) [Mass/Vol] 32.9 g/dL 32.0 - 36.0 g/dL [facility] MCV (RBC) [Entitic vol] 92 fL 80 - 100 fL [facility] Nucleated RBC/100 WBC (Bld) [Ratio] 0.4 % High [facility] Platelets (Bld) [#/Vol] 342 10*3/uL [facility] RBC (Bld) [#/Vol] 2.77 10*6/uL Low [facility] WBC (Bld) [#/Vol] 11.9 10*3/uL High [facility] Erythrocyte distribution width (RBC) [Ratio] 15.3 % High 11.5-14.5 [facility] Comment on above: Performed By: #### 5 8410-2 ####TSEFANO TROY ([id number])[facility] ([facility])[address] [place] [address] Hematocrit (Bld) [Volume fraction] 25.5 % Low 36.0-46.0 [facility] Comment on above: Performed By: #### 5 8410-2 ####STEFANO TROY ([id number])[facility] ([facility])[address] [place] [address] Hemoglobin (Bld) [Mass/Vol] 8.4 g/dL Low 12.0-16.0 [facility] Comment on above: Performed By: #### 5 8410-2 ####STEFANO TROY ([id number])[facility] ([facility])[address] [place] [address] MCH (RBC) [Entitic mass] 30.3 pg Normal 26.0-34.0 [facility] Comment on above: Performed By: #### 5 8410-2 ####STEFANO TROY ([id number])[facility] ([facility])[address] [place] [address] MCHC (RBC) [Mass/Vol] 32.9 g/dL Normal 32.0-36.0 [facility] Comment on above: Performed By: #### 5 8410-2 ####STEFANO TROY ([id number])[facility] ([facility])[address] [place] [id number] MCV (RBC) [Entitic vol] 92 fL Normal 80-100 [facility] Comment on above: Performed By: #### 5 8410-2 ####STEFANO TROY ([id number])[facility] ([facility])[address] [place] [id number] Nucleated RBC/100 WBC (Bld) [Ratio] 0.4 /100 WBCs High 0.0-0.0 [facility] Comment on above: Performed By: #### 5 8410-2 ####STEFANO TROY ([id number])[facility] ([facility])[address] [place] [id number] Platelets (Bld) [#/Vol] 342 x10*3/uL Normal 150-450 [facility] Comment on above: Performed By: #### 5 8410-2 ####STEFANO TROY ([id number])[facility] ([facility])[address] [place] [address] RBC (Bld) [#/Vol] 2.77 x10*6/uL Low 4.00-5.20 [facility] Comment on above: Performed By: #### 5 8410-2 ####STEFANO TROY ([id number])[facility] ([facility])[address] [place] [address] WBC (Bld) [#/Vol] 11.9 x10*3/uL High 4.4-11.3 [facility] Comment on above: Performed By: #### 5 8410-2 ####STEFANO TROY ([id number])[facility] ([facility])[address] [place] [address] ECG 12 LeadOrdered By: Cassius Mei on 08-17-2024 Atrial Rate 104 BPM [facility] Work Phone: [phone] P [place] 270 degrees [facility] Work Phone: [phone] P Offset 206 ms [facility] Work Phone: [phone] P Onset 146 [facility] Work Phone: [phone] [place] Interval 130 ms [facility] Work Phone: [phone] Q Onset 211 ms [facility] Work Phone: [phone] QRS Count 17 beats [facility] Work Phone: [phone] QRS Duration 146 ms [facility] Work Phone: [phone] QT Interval 410 ms [facility] Work Phone: [phone] QTC Calculation(Bazett) 539 ms [facility] Work Phone: [phone] QTC Fredericia 492 ms [facility] Work Phone: [phone] R [place]ard 96 degrees [facility] Work Phone: [phone] T [place] -2 degrees [facility] Work Phone: [phone] T Offset 416 ms [facility] Work Phone: [phone] Ventricular Rate 104 BPM [facility] Work Phone: [phone] [facility] Work Phone: [phone] ECG 12 Leadon 08-17-2024 [facility] Work Phone: [phone] Electrocardiogram 12-lead [place] N for arrhythmiaon 08-17-2024 Atrial Rate 99 BPM [facility] Work Phone: [phone] P Offset 132 ms [facility] Work Phone: [phone] P Onset 96 [facility] Work Phone: [phone] [place] Interval 128 ms [facility] Work Phone: [phone] Q Onset 218 ms [facility] Work Phone: [phone] QRS Count 16 beats [facility] Work Phone: [phone] QRS Duration 138 ms [facility] Work Phone: [phone] QT Interval 296 ms [facility] Work Phone: [phone] QTC Calculation(Bazett) 379 ms [facility] Work Phone: [phone] QTC Fredericia 349 ms [facility] Work Phone: [phone] R [place] 145 degrees [facility] Work Phone: [phone] T [place] 44 degrees [facility] Work Phone: [phone] T Offset 366 ms [facility] Work Phone: [phone] Ventricular Rate 99 BPM [facility] Work Phone: [phone] [facility] Work Phone: [phone] [facility] Work Phone: [phone] Glucose Test strip manual (B ld) [Mass/Vol]on 08-17-2024 Glucose [Mass/Vol] 117 mg/dL High 74 - 99 mg/dL [facility] Interpretation and review of laboratory results Abnormal [facility] Glucose [Mass/Vol] 117 mg/dL High 74-99 [facility] Comment on above: Performed By: #### 2 341-6 ####STEFANO TROY ([id number])[facility] ([facility])[address] [place] [address] Glucose [Mass/Vol] 156 mg/dL High 74 - 99 mg/dL [facility] Interpretation and review of laboratory results Abnormal [facility] Glucose [Mass/Vol] 156 mg/dL High 74-99 [facility] Comment on above: Performed By: #### 2 341-6 ####STEFANO TROY ([id number])[facility] ([facility])[address] [place] [id number] Glucose [Mass/Vol] 122 mg/dL High 74 - 99 mg/dL [facility] Interpretation and review of laboratory results Abnormal [facility] Glucose [Mass/Vol] 122 mg/dL High 74-99 [facility] Comment on above: Performed By: #### 2 341-6 ####STEFANO TROY ([id number])[facility] ([facility])[address] [place] [address] Glucose [Mass/Vol] 116 mg/dL High 74 - 99 mg/dL [facility] Interpretation and review of laboratory results Abnormal [facility] Glucose [Mass/Vol] 116 mg/dL High 74-99 [facility] Comment on above: Performed By: #### 2 341-6 ####STEFANO TROY ([id number])[facility] ([facility])[address] [place] [address] Magnesiumon 08-17-2024 Magnesium [Mass/Vol] 2.22 mg/dL 1.60 - 2.40 mg/dL [facility] Magnesium [Mass/Vol] 2.22 mg/dL Normal 1.60-2.40 [facility] Comment on above: Performed By: #### 1 9123-9 ####STEFANO TROY ([id number])[facility] ([facility])[address] [place] [address] Magnesium [Mass/Vol]on 08-17 Interpretation and review of laboratory results Normal [facility] No Panel Informationon 08-17 [facility] Renal function 2000 panelon 08-17-2024 Albumin BCP dye [Mass/Vol] 3 g/dL Low 3.4 - 5.0 g/dL [facility] Anion gap [Moles/Vol] 13 mmol/L 10 - 2 0 mmol/L [facility] Calcium [Mass/Vol] 7.6 mg/dL Low 8.6 - 10. 3 mg/dL [facility] Chloride [Moles/Vol] 103 mmol/L 98 - 10 7 mmol/L [facility] CO2 [Moles/Vol] 23 mmol/L 21 - 32 mmol/L [facility] Creatinine [Mass/Vol] 0.83 mg/dL 0.50 - 1.05 mg/dL [facility] GFR/1.73 sq M.predicted among non-blacks MDRD (S/P/Bld) [Vol rate/Area] 74 mL/min/{1.73_m2} - PINF [facility] Glucose [Mass/Vol] 119 mg/dL High 74 - 99 mg/dL [facility] Interpretation and review of laboratory results Abnormal [facility] Phosphate [Mass/Vol] 3 mg/dL 2.5 - 4 .9 mg/dL [facility] Potassium [Moles/Vol] 3.9 mmol/L 3.5 - 5.3 mmol/L [facility] Sodium [Moles/Vol] 135 mmol/L Low 136 - 145 mmol/L [facility] Urea nitrogen [Mass/Vol] 38 mg/dL High 6 - 23 mg/d L [facility] Albumin BCP dye [Mass/Vol] 3.0 g/dL Low 3.4-5.0 [facility] Comment on above: Performed By: #### 2 4362-6 ####STEFANO TROY ([id number])[facility] ([facility])[address] [place] [address] Anion gap [Moles/Vol] 13 mmol/L Normal 10-20 [facility] Comment on above: Performed By: #### 2 4362-6 ####STEFANO TROY ([id number])[facility] ([facility])[address] [place] [address] Calcium [Mass/Vol] 7.6 mg/dL Low 8.6-10.3 [facility] Comment on above: Performed By: #### 2 4362-6 ####STEFANO TROY ([id number])[facility] ([facility])[address] [place] [address] Chloride [Moles/Vol] 103 mmol/L Normal 98-107 [facility] Comment on above: Performed By: #### 2 4362-6 ####STEFANO TROY ([id number])[facility] ([facility])[address] [place] [address] CO2 [Moles/Vol] 23 mmol/L Normal 21-32 [facility] Comment on above: Performed By: #### 2 4362-6 ####STEFANO TROY ([id number])[facility] ([facility])[address] [place] [address] Creatinine [Mass/Vol] 0.83 mg/dL Normal 0.50-1.05 [facility] Comment on above: Performed By: #### 2 4362-6 ####STEFANO TROY ([id number])[facility] ([facility])[address] [place] [address] Glomerular filtration rate/1.73 sq M.predicted 74 mL/min/1.73m*2 Normal >60 [facility] Comment on above: Result Comment: Calc ulations of estimated GFR are performed using the 2020 CKD-EPI Study Refit equation without the race variable for the IDMS-Traceable creatinine methods.https://jasn.asnjournals.org/content/ /ASN.0314218467 Performed By: #### 2 4362-6 ####STEFANO TROY ([id number])[facility] ([facility])[address] [place] [address] Glucose [Mass/Vol] 119 mg/dL High 74-99 [facility] Comment on above: Performed By: #### 2 4362-6 ####STEFANO TROY ([id number])[facility] ([facility])[address] [place] [address] Phosphate [Mass/Vol] 3.0 mg/dL Normal 2.5-4.9 [facility] Comment on above: Result Comment: The performance characteristics of phosphorus testing in heparinized plasma have been validated by the individual laboratory site where testing is performed. Testing on heparinized plasma is not approved by the FDA; however, such approval is not necessary. Performed By: #### 2 4362-6 ####STEFANO TROY ([id number])[facility] ([facility])[address] [place] [address] Potassium [Moles/Vol] 3.9 mmol/L Normal 3.5-5.3 [facility] Comment on above: Performed By: #### 2 4362-6 ####STEFANO TROY ([id number])[facility] ([facility])[address] [place] [address] Sodium [Moles/Vol] 135 mmol/L Low 136-145 [facility] Comment on above: Performed By: #### 2 4362-6 ####STEFANO TROY ([id number])[facility] ([facility])[address] [place] [address] Urea nitrogen [Mass/Vol] 38 mg/dL High 6-23 [facility] Comment on above: Performed By: #### 2 4362-6 ####STEFANO TROY ([id number])[facility] ([facility])[address] [place] [address] XR CHEST 2 VIEWSon 4 XR CHEST 2 VIEWS Normal [facility] XR Chest 2 Viewson 4 UH MMODAL UH MMODAL [facility] Work Phone: [facility] Work Phone: Radiology Study observation (narrative) [facility] Work Phone: CBC W Auto Differential pane l (Bld)on 08-16-2024 Basophils (Bld) [#/Vol] 0.02 10*3/uL [facility] Basophils/100 WBC (Bld) 0.2 % 0.0 - 2.0 % [facility] Eosinophils (Bld) [#/Vol] 0.27 10*3/uL [facility] Eosinophils/100 WBC (Bld) 2.6 % 0.0 - 6.0 % [facility] Erythrocyte distribution width (RBC) [Ratio] 15.2 % High 11.5 - 14.5 % [facility] Hematocrit (Bld) [Volume fraction] 25.2 % Low 36.0 - 46.0 % [facility] Hemoglobin (Bld) [Mass/Vol] 8.5 g/dL Low 12.0 - 16.0 g/dL [facility] Immature granulocytes (Bld) [#/Vol] 0.09 10*3/uL [facility] Immature granulocytes/100 WBC (Bld) 0.9 % 0.0 - 0.9 % [facility] Interpretation and review of laboratory results Abnormal [facility] Lymphocytes (Bld) [#/Vol] 1.76 10*3/uL [facility] Lymphocytes/100 WBC (Bld) 17.3 % 13.0 - 44.0 % [facility] MCH (RBC) [Entitic mass] 30.5 pg 26. 0 - 34.0 pg [facility] MCHC (RBC) [Mass/Vol] 33.7 g/dL 32.0 - 36.0 g/dL [facility] MCV (RBC) [Entitic vol] 90 fL 80 - 100 fL [facility] Monocytes (Bld) [#/Vol] 1.05 10*3/uL [facility] Monocytes/100 WBC (Bld) 10.3 % 2.0 - 10.0 % [facility] Neutrophils (Bld) [#/Vol] 7.01 10*3/uL [facility] Neutrophils/100 WBC (Bld) 68.7 % 40.0 - 80.0 % [facility] Nucleated RBC/100 WBC (Bld) [Ratio] 0.6 % High [facility] Platelets (Bld) [#/Vol] 287 10*3/uL [facility] RBC (Bld) [#/Vol] 2.79 10*6/uL Low [facility] WBC (Bld) [#/Vol] 10.2 10*3/uL [facility] Basophils (Bld) [#/Vol] 0.02 x10*3/uL Normal 0.00-0.10 [facility] Comment on above: Performed By: #### 5 7021-8 ####STEFANO TROY ([id number])[facility] ([facility])[address] [place] [address] Basophils/100 WBC (Bld) 0.2 % Normal 0.0-2.0 [facility] Comment on above: Performed By: #### 5 7021-8 ####STEFANO TROY ([id number])[facility] ([facility])[address] [place] [address] Eosinophils (Bld) [#/Vol] 0.27 x10*3/uL Normal 0.00-0.40 [facility] Comment on above: Performed By: #### 5 7021-8 ####STEFANO TROY ([id number])[facility] ([facility])[address] [place] [address] Eosinophils/100 WBC (Bld) 2.6 % Normal 0.0-6.0 [facility] Comment on above: Performed By: #### 5 7021-8 ####STEFANO TROY ([id number])[facility] ([facility])[address] [place] [address] Erythrocyte distribution width (RBC) [Ratio] 15.2 % High 11.5-14.5 [facility] Comment on above: Performed By: #### 5 7021-8 ####STEFANO TROY ([id number])[facility] ([facility])[address] [place] [address] Hematocrit (Bld) [Volume fraction] 25.2 % Low 36.0-46.0 [facility] Comment on above: Performed By: #### 5 7021-8 ####STEFANO TROY ([id number])[facility] ([facility])[address] [place] [address] Hemoglobin (Bld) [Mass/Vol] 8.5 g/dL Low 12.0-16.0 [facility] Comment on above: Performed By: #### 5 7021-8 ####STEFANO TROY ([id number])[facility] ([facility])[address] [place] [address] Immature granulocytes (Bld) [#/Vol] 0.09 x10*3/uL Normal 0.00-0.50 [facility] Comment on above: Performed By: #### 5 7021-8 ####STEFANO TROY ([id number])[facility] ([facility])[address] [place] [address] Immature granulocytes/100 WBC (Bld) 0.9 % Normal 0.0-0.9 [facility] Comment on above: Result Comment: Laurie ture Granulocyte Count (IG) includes promyelocytes, myelocytes and metamyelocytes but does not include bands. Percent differential counts (%) should be interpreted in the context of the absolute cell counts (cells/UL). Performed By: #### 5 7021-8 ####STEFANO TROY ([id number])[facility] ([facility])[address] [place] [address] Lymphocytes (Bld) [#/Vol] 1.76 x10*3/uL Normal 0.80-3.00 [facility] Comment on above: Performed By: #### 5 7021-8 ####STEFANO TROY ([id number])[facility] ([facility])[address] [place] [address] Lymphocytes/100 WBC (Bld) 17.3 % Normal 13.0-44.0 [facility] Comment on above: Performed By: #### 5 7021-8 ####STEFANO TROY ([id number])[facility] ([facility])[address] [place] [address] MCH (RBC) [Entitic mass] 30.5 pg Normal 26.0-34.0 [facility] Comment on above: Performed By: #### 5 7021-8 ####STEFANO TROY ([id number])[facility] ([facility])[address] [place] [address] MCHC (RBC) [Mass/Vol] 33.7 g/dL Normal 32.0-36.0 [facility] Comment on above: Performed By: #### 5 7021-8 ####STEFANO TROY ([id number])[facility] ([facility])[address] [place] [address] MCV (RBC) [Entitic vol] 90 fL Normal 80-100 [facility] Comment on above: Performed By: #### 5 7021-8 ####STEFANO TROY ([id number])[facility] ([facility])[address] [place] [address] Monocytes (Bld) [#/Vol] 1.05 x10*3/uL High 0.05-0.80 [facility] Comment on above: Performed By: #### 5 7021-8 ####STEFANO TROY ([id number])[facility] ([facility])[address] [place] [id number] Monocytes/100 WBC (Bld) 10.3 % Normal 2.0-10.0 [facility] Comment on above: Performed By: #### 5 7021-8 ####STEFANO TROY ([id number])[facility] ([facility])[address] [place] [address] Neutrophils (Bld) [#/Vol] 7.01 x10*3/uL High 1.60-5.50 [facility] Comment on above: Result Comment: Perc ent differential counts (%) should be interpreted in the context of the absolute cell counts (cells/uL). Performed By: #### 5 7021-8 ####STEFANO TROY ([id number])[facility] ([facility])[address] [place] [address] Neutrophils/100 WBC (Bld) 68.7 % Normal 40.0-80.0 [facility] Comment on above: Performed By: #### 5 7021-8 ####STEFANO TROY ([id number])[facility] ([facility])[address] [place] [address] Nucleated RBC/100 WBC (Bld) [Ratio] 0.6 /100 WBCs High 0.0-0.0 [facility] Comment on above: Performed By: #### 5 7021-8 ####STEFANO TROY ([id number])[facility] ([facility])[address] [place] [address] Platelets (Bld) [#/Vol] 287 x10*3/uL Normal 150-450 [facility] Comment on above: Performed By: #### 5 7021-8 ####STEFANO TROY ([id number])[facility] ([facility])[address] [place] [address] RBC (Bld) [#/Vol] 2.79 x10*6/uL Low 4.00-5.20 [facility] Comment on above: Performed By: #### 5 7021-8 ####STEFANO TROY ([id number])[facility] ([facility])[address] [place] [id number] WBC (Bld) [#/Vol] 10.2 x10*3/uL Normal 4.4-11.3 [facility] Comment on above: Performed By: #### 5 7021-8 ####STEFANO TROY ([id number])[facility] ([facility])[address] [place] [phone] Glucose Test strip manual (B ld) [Mass/Vol]on 08-16-2024 Glucose [Mass/Vol] 122 mg/dL High 74 - 99 mg/dL [facility] Interpretation and review of laboratory results Abnormal [facility] Glucose [Mass/Vol] 122 mg/dL High 74-99 [facility] Comment on above: Performed By: #### 2 341-6 ####STEFANO TROY ([id number])[facility] ([facility])[address] [place] [address] Glucose [Mass/Vol] 130 mg/dL High 74 - 99 mg/dL [facility] Interpretation and review of laboratory results Abnormal [facility] Glucose [Mass/Vol] 130 mg/dL High 74-99 [facility] Comment on above: Performed By: #### 2 341-6 ####STEFANO TROY ([id number])[facility] ([facility])[address] [place] [id number] Glucose [Mass/Vol] 126 mg/dL High 74 - 99 mg/dL [facility] Interpretation and review of laboratory results Abnormal [facility] Glucose [Mass/Vol] 126 mg/dL High 74-99 [facility] Comment on above: Performed By: #### 2 341-6 ####STEFANO TROY ([id number])[facility] ([facility])[address] [place] [address] Glucose [Mass/Vol] 122 mg/dL High 74 - 99 mg/dL [facility] Interpretation and review of laboratory results Abnormal [facility] Glucose [Mass/Vol] 122 mg/dL High 74-99 [facility] Comment on above: Performed By: #### 2 341-6 ####STEFANO TROY ([id number])[facility] ([facility])[address] [place] [address] Magnesiumon 08-16-2024 Magnesium [Mass/Vol] 2.34 mg/dL 1.60 - 2.40 mg/dL [facility] Magnesium [Mass/Vol] 2.34 mg/dL Normal 1.60-2.40 [facility] Comment on above: Performed By: #### 1 9123-9 ####STEFANO TROY ([id number])[facility] ([facility])[address] [place], [place] [phone] Magnesium [Mass/Vol]on 08-16 Interpretation and review of laboratory results Normal [facility] No Panel Informationon 08-16 [facility] Blood Expiration Date 09/10/2024 11:59:00 PM EST [facility] Dispense Status RE [facility] PRODUCT BLOOD TYPE [facility]100 [facility] PR[facility] [id number] [facility] Unit ABO O [facility] Unit RH Positive [facility] UNIT VOLUME 350 [facility] XM INTEP COMP [facility] Prepare RBC: 4 Unitson 08-16 Blood Expiration Date 09/04/2024 11:59:0 0 PM EST [facility] Dispense Status TR [facility] Unit Number [id number] [facility] Unit Number [id number] [facility] Unit Number [id number] [facility] Unit Number [id number] [facility] Renal function 2000 panelon 08-16-2024 Albumin BCP dye [Mass/Vol] 3 g/dL Low 3.4 - 5.0 g/dL [facility] Anion gap [Moles/Vol] 12 mmol/L 10 - 2 0 mmol/L [facility] Calcium [Mass/Vol] 7.5 mg/dL Low 8.6 - 10. 3 mg/dL [facility] Chloride [Moles/Vol] 102 mmol/L 98 - 10 7 mmol/L [facility] CO2 [Moles/Vol] 22 mmol/L 21 - 32 mmol/L [facility] Creatinine [Mass/Vol] 0.81 mg/dL 0.50 - 1.05 mg/dL [facility] GFR/1.73 sq M.predicted among non-blacks MDRD (S/P/Bld) [Vol rate/Area] 76 mL/min/{1.73_m2} - PINF [facility] Glucose [Mass/Vol] 119 mg/dL High 74 - 99 mg/dL [facility] Interpretation and review of laboratory results Abnormal [facility] Phosphate [Mass/Vol] 3.4 mg/dL 2.5 - 4 .9 mg/dL [facility] Potassium [Moles/Vol] 4 mmol/L 3.5 - 5.3 mmol/L [facility] Sodium [Moles/Vol] 132 mmol/L Low 136 - 145 mmol/L [facility] Urea nitrogen [Mass/Vol] 40 mg/dL High 6 - 23 mg/d L [facility] Albumin BCP dye [Mass/Vol] 3.0 g/dL Low 3.4-5.0 [facility] Comment on above: Performed By: #### 2 4362-6 ####STEFANO TROY ([id number])[facility] ([facility])[address] [place] [address] Anion gap [Moles/Vol] 12 mmol/L Normal 10-20 [facility] Comment on above: Performed By: #### 2 4362-6 ####STEFANO TROY ([id number])[facility] ([facility])[address] [place] [address] Calcium [Mass/Vol] 7.5 mg/dL Low 8.6-10.3 [facility] Comment on above: Performed By: #### 2 4362-6 ####STEFANO TROY ([id number])[facility] ([facility])[address] [place] [address] Chloride [Moles/Vol] 102 mmol/L Normal 98-107 [facility] Comment on above: Performed By: #### 2 4362-6 ####STEFANO TROY ([id number])[facility] ([facility])[address] [place] [address] CO2 [Moles/Vol] 22 mmol/L Normal 21-32 [facility] Comment on above: Performed By: #### 2 4362-6 ####STEFANO TROY ([id number])[facility] ([facility])[address] [place] [address] Creatinine [Mass/Vol] 0.81 mg/dL Normal 0.50-1.05 [facility] Comment on above: Performed By: #### 2 4362-6 ####STEFANO TROY ([id number])[facility] ([facility])[address] [place] [address] Glomerular filtration rate/1.73 sq M.predicted 76 mL/min/1.73m*2 Normal >60 [facility] Comment on above: Result Comment: Calc ulations of estimated GFR are performed using the 2020 CKD-EPI Study Refit equation without the race variable for the IDMS-Traceable creatinine methods.https://jasn.asnjournals.org/content/early/ /ASN.7758085164 Performed By: #### 2 4362-6 ####STEFANO TROY ([id number])[facility] ([facility])[address] [place] [address] Glucose [Mass/Vol] 119 mg/dL High 74-99 [facility] Comment on above: Performed By: #### 2 4362-6 ####STEFANO TROY ([id number])[facility] ([facility])[address] [place] [address] Phosphate [Mass/Vol] 3.4 mg/dL Normal 2.5-4.9 [facility] Comment on above: Result Comment: The performance characteristics of phosphorus testing in heparinized plasma have been validated by the individual laboratory site where testing is performed. Testing on heparinized plasma is not approved by the FDA; however, such approval is not necessary. Performed By: #### 2 4362-6 ####STEFANO TROY ([id number])[facility] ([facility])[address] [place] [address] Potassium [Moles/Vol] 4.0 mmol/L Normal 3.5-5.3 [facility] Comment on above: Performed By: #### 2 4362-6 ####STEFANO TROY ([id number])[facility] ([facility])[address] [place] [address] Sodium [Moles/Vol] 132 mmol/L Low 136-145 [facility] Comment on above: Performed By: #### 2 4362-6 ####STEFANO TROY ([id number])[facility] ([facility])[address] [place] [address] Urea nitrogen [Mass/Vol] 40 mg/dL High 6-23 [facility] Comment on above: Performed By: #### 2 4362-6 ####STEFANO TROY ([id number])[facility] ([facility])[address] [place] [address] Bacteria identified Respirat ory culture Nom (Unsp spec)Ordered By: Joann Dennis on 08-15-2024 Interpretation and review of laboratory results Abnormal [facility] Microscopic observation Gram stain Nom (Unsp spec) Gram stain indicates specimen contains significant salivary contamination. Abnormal [facility] CBC W Auto Differential pane l (Bld)on 08-15-2024 Basophils (Bld) [#/Vol] 0.02 10*3/uL [facility] Basophils/100 WBC (Bld) 0.2 % 0.0 - 2.0 % [facility] Eosinophils (Bld) [#/Vol] 0.23 10*3/uL [facility] Eosinophils/100 WBC (Bld) 2.2 % 0.0 - 6.0 % [facility] Erythrocyte distribution width (RBC) [Ratio] 15.5 % High 11.5 - 14.5 % [facility] Hematocrit (Bld) [Volume fraction] 26.6 % Low 36.0 - 46.0 % [facility] Hemoglobin (Bld) [Mass/Vol] 8.7 g/dL Low 12.0 - 16.0 g/dL [facility] Immature granulocytes (Bld) [#/Vol] 0.05 10*3/uL [facility] Immature granulocytes/100 WBC (Bld) 0.5 % 0.0 - 0.9 % [facility] Interpretation and review of laboratory results Abnormal [facility] Lymphocytes (Bld) [#/Vol] 2.48 10*3/uL [facility] Lymphocytes/100 WBC (Bld) 24.1 % 13.0 - 44.0 % [facility] MCH (RBC) [Entitic mass] 29.6 pg 26. 0 - 34.0 pg [facility] MCHC (RBC) [Mass/Vol] 32.7 g/dL 32.0 - 36.0 g/dL [facility] MCV (RBC) [Entitic vol] 91 fL 80 - 100 fL [facility] Monocytes (Bld) [#/Vol] 1.1 10*3/uL [facility] Monocytes/100 WBC (Bld) 10.7 % 2.0 - 10.0 % [facility] Neutrophils (Bld) [#/Vol] 6.41 10*3/uL [facility] Neutrophils/100 WBC (Bld) 62.3 % 40.0 - 80.0 % [facility] Nucleated RBC/100 WBC (Bld) [Ratio] 0.6 % [facility] Platelets (Bld) [#/Vol] 283 10*3/uL [facility] RBC (Bld) [#/Vol] 2.94 10*6/uL Low [facility] WBC (Bld) [#/Vol] 10.3 10*3/[facility] Bas[facility] (Bld[facility] [#/Vol] 0.02 x10*3/uL Normal 0.00-0.10 [facility] Comment on above: Performed By: #### 5 7021-8 ####STEFANO TROY ([id number])[facility] ([facility])[address] [place] [id number] Basophils/100 WBC (Bld) 0.2 % Normal 0.0-2.0 [facility] Comment on above: Performed By: #### 5 7021-8 ####STEFANO TROY ([id number])[facility] ([facility])[address] [place] [address] Eosinophils (Bld) [#/Vol] 0.23 x10*3/uL Normal 0.00-0.40 [facility] Comment on above: Performed By: #### 5 7021-8 ####STEFANO TROY ([id number])[facility] ([facility])[address] [place] [address] Eosinophils/100 WBC (Bld) 2.2 % Normal 0.0-6.0 [facility] Comment on above: Performed By: #### 5 7021-8 ####STEFANO TROY ([id number])[facility] ([facility])[address] [place] [address] Erythrocyte distribution width (RBC) [Ratio] 15.5 % High 11.5-14.5 [facility] Comment on above: Performed By: #### 5 7021-8 ####STEFANO TROY ([id number])[facility] ([facility])[address] [place] [address] Hematocrit (Bld) [Volume fraction] 26.6 % Low 36.0-46.0 [facility] Comment on above: Performed By: #### 5 7021-8 ####STEFANO TROY ([id number])[facility] [facility] ([facility])[address] [place] [address] Hemoglobin (Bld) [Mass/Vol] 8.7 g/dL Low 12.0-16.0 [facility] Comment on above: Performed By: #### 5 7021-8 ####STEFANO TROY ([id number])[facility] ([facility])[address] [place] [address] Immature granulocytes (Bld) [#/Vol] 0.05 x10*3/uL Normal 0.00-0.50 [facility] Comment on above: Performed By: #### 5 7021-8 ####STEFANO TROY ([id number])[facility] ([facility])[address] [place] [id number] Immature granulocytes/100 WBC (Bld) 0.5 % Normal 0.0-0.9 [facility] Comment on above: Result Comment: Laurie ture Granulocyte Count (IG) includes promyelocytes, myelocytes and metamyelocytes but does not include bands. Percent differential counts (%) should be interpreted in the context of the absolute cell counts (cells/UL). Performed By: #### 5 7021-8 ####STEFANO TROY ([id number])[facility] ([facility])[address] [place] [address] Lymphocytes (Bld) [#/Vol] 2.48 x10*3/uL Normal 0.80-3.00 [facility] Comment on above: Performed By: #### 5 7021-8 ####STEFANO TROY ([id number])[facility] ([facility])[address] [place] [address] Lymphocytes/100 WBC (Bld) 24.1 % Normal 13.0-44.0 [facility] Comment on above: Performed By: #### 5 7021-8 ####STEFANO TROY ([id number])[facility] ([facility])[address] [place] [address] MCH (RBC) [Entitic mass] 29.6 pg Normal 26.0-34.0 [facility] Comment on above: Performed By: #### 5 7021-8 ####STEFANO TROY ([id number])[facility] ([facility])[address] [place] [address] MCHC (RBC) [Mass/Vol] 32.7 g/dL Normal 32.0-36.0 [facility] Comment on above: Performed By: #### 5 7021-8 ####STEFANO TROY ([id number])[facility] ([facility])[address] [place] [id number] MCV (RBC) [Entitic vol] 91 fL Normal 80-100 [facility] Comment on above: Performed By: #### 5 7021-8 ####STEFANO TROY ([id number])[facility] ([facility])[address] [place] [id number] Monocytes (Bld) [#/Vol] 1.10 x10*3/uL High 0.05-0.80 [facility] Comment on above: Performed By: #### 5 7021-8 ####STEFANO TROY ([id number])[facility] ([facility])[address] [place] [address] Monocytes/100 WBC (Bld) 10.7 % Normal 2.0-10.0 [facility] Comment on above: Performed By: #### 5 7021-8 ####STEFANO TROY ([id number])[facility] ([facility])[address] [place] [address] Neutrophils (Bld) [#/Vol] 6.41 x10*3/uL High 1.60-5.50 [facility] Comment on above: Result Comment: Perc ent differential counts (%) should be interpreted in the context of the absolute cell counts (cells/uL). Performed By: #### 5 7021-8 ####STEFANO TROY ([id number])[facility] ([facility])[address] [place] [id number] Neutrophils/100 WBC (Bld) 62.3 % Normal 40.0-80.0 [facility] Comment on above: Performed By: #### 5 7021-8 ####STEFANO TROY ([id number])[facility] ([facility])[address] [place] [address] Nucleated RBC/100 WBC (Bld) [Ratio] 0.6 /100 WBCs High 0.0-0.0 [facility] Comment on above: Performed By: #### 5 7021-8 ####STEFANO TROY ([id number])[facility] ([facility])[address] [place] [address] Platelets (Bld) [#/Vol] 283 x10*3/uL Normal 150-450 [facility] Comment on above: Performed By: #### 5 7021-8 ####STEFANO TROY ([id number])[facility] ([facility])[address] [place] [address] RBC (Bld) [#/Vol] 2.94 x10*6/uL Low 4.00-5.20 [facility] Comment on above: Performed By: #### 5 7021-8 ####STEFANO TROY ([id number])[facility] ([facility])[address] [place] [id number] WBC (Bld) [#/Vol] 10.3 x10*3/uL Normal 4.4-11.3 [facility] Comment on above: Performed By: #### 5 7021-8 ####STEFANO TROY ([id number])[facility] ([facility])[address] [place] [address] Glucose Test strip manual (B ld) [Mass/Vol]on 08-15-2024 Glucose [Mass/Vol] 136 mg/dL High 74 - 99 mg/dL [facility] Interpretation and review of laboratory results Abnormal [facility] Glucose [Mass/Vol] 136 mg/dL High 74-99 [facility] Comment on above: Performed By: #### 2 341-6 ####STEFANO TROY ([id number])[facility] ([facility])[address] [place] [address] Glucose [Mass/Vol] 133 mg/dL High 74 - 99 mg/dL [facility] Interpretation and review of laboratory results Abnormal [facility] Glucose [Mass/Vol] 133 mg/dL High 74-99 [facility] Comment on above: Performed By: #### 2 341-6 ####STEFANO TROY ([id number])[facility] ([facility])[address] [place] [address] Glucose [Mass/Vol] 111 mg/dL High 74 - 99 mg/dL [facility] Interpretation and review of laboratory results Abnormal [facility] Glucose [Mass/Vol] 111 mg/dL High 74-99 [facility] Comment on above: Performed By: #### 2 341-6 ####STEFANO TROY ([id number])[facility] ([facility])[address] [place] [address] Glucose [Mass/Vol] 108 mg/dL High 74 - 99 mg/dL [facility] Interpretation and review of laboratory results Abnormal [facility] Glucose [Mass/Vol] 108 mg/dL High 74-99 [facility] Comment on above: Performed By: #### 2 341-6 ####STEFANO TROY ([id number])[facility] ([facility])[address] [place] [address] Magnesiumon 08-15-2024 Magnesium [Mass/Vol] 2.37 mg/dL 1.60 - 2.40 mg/dL [facility] Magnesium [Mass/Vol] 2.37 mg/dL Normal 1.60-2.40 [facility] Comment on above: Performed By: #### 1 9123-9 ####STEFANO TROY ([id number])[facility] ([facility])[address] [place] [address] Magnesium [Mass/Vol]on 08-15 Interpretation and review of laboratory results Normal [facility] No Panel Informationon 08-15 [facility] Renal function 2000 panelon 08-15-2024 Albumin BCP dye [Mass/Vol] 3.2 g/dL Low 3.4 - 5.0 g/dL [facility] Anion gap [Moles/Vol] 12 mmol/L 10 - 2 0 mmol/L [facility] Calcium [Mass/Vol] 7.8 mg/dL Low 8.6 - 10. 3 mg/dL [facility] Chloride [Moles/Vol] 101 mmol/L 98 - 10 7 mmol/L [facility] CO2 [Moles/Vol] 25 mmol/L 21 - 32 mmol/L [facility] Creatinine [Mass/Vol] 0.86 mg/dL 0.50 - 1.05 mg/dL [facility] GFR/1.73 sq M.predicted among non-blacks MDRD (S/P/Bld) [Vol rate/Area] 71 mL/min/{1.73_m2} - PINF [facility] Glucose [Mass/Vol] 108 mg/dL High 74 - 99 mg/dL [facility] Interpretation and review of laboratory results Abnormal [facility] Phosphate [Mass/Vol] 3.1 mg/dL 2.5 - 4 .9 mg/dL [facility] Potassium [Moles/Vol] 4.4 mmol/L 3.5 - 5.3 mmol/L [facility] Sodium [Moles/Vol] 134 mmol/L Low 136 - 145 mmol/L [facility] Urea nitrogen [Mass/Vol] 41 mg/dL High 6 - 23 mg/d L [facility] Albumin BCP dye [Mass/Vol] 3.2 g/dL Low 3.4-5.0 [facility] Comment on above: Performed By: #### 2 4362-6 ####STEFANO TROY ([id number])[facility] ([facility])[address] [place] [address] Anion gap [Moles/Vol] 12 mmol/L Normal 10-20 [facility] Comment on above: Performed By: #### 2 436-6 ####STEFANO TROY ([id number])[facility] ([facility])[address] [place] [address] Calcium [Mass/Vol] 7.8 mg/dL Low 8.6-10.3 [facility] Comment on above: Performed By: #### 2 4362-6 ####STEFANO TROY ([id number])[facility] ([facility])[address] [place] [address] Chloride [Moles/Vol] 101 mmol/L Normal 98-107 [facility] Comment on above: Performed By: #### 2 4362-6 ####STEFANO TROY ([id number])[facility] ([facility])[address] [place] [address] CO2 [Moles/Vol] 25 mmol/L Normal 21-32 [facility] Comment on above: Performed By: #### 2 4362-6 ####STEFANO TROY ([id number])[facility] ([facility])[address] [place] [address] Creatinine [Mass/Vol] 0.86 mg/dL Normal 0.50-1.05 [facility] Comment on above: Performed By: #### 2 4362-6 ####STEFANO TROY ([id number])[facility] ([facility])[address] [place] [address] Glomerular filtration rate/1.73 sq M.predicted 71 mL/min/1.73m*2 Normal >60 [facility] Comment on above: Result Comment: Calc ulations of estimated GFR are performed using the 2020 CKD-EPI Study Refit equation without the race variable for the IDMS-Traceable creatinine methods.https://jasn.asnjournals.org/content/ /ASN.1123856190 Performed By: #### 2 4362-6 ####STEFANO TROY ([id number])[facility] ([facility])[address] [place] [address] Glucose [Mass/Vol] 108 mg/dL High 74-99 [facility] Comment on above: Performed By: #### 2 4362-6 ####STEFANO TROY ([id number])[facility] ([facility])[address] [place] [address] Phosphate [Mass/Vol] 3.1 mg/dL Normal 2.5-4.9 [facility] Comment on above: Result Comment: The performance characteristics of phosphorus testing in heparinized plasma have been validated by the individual laboratory site where testing is performed. Testing on heparinized plasma is not approved by the FDA; however, such approval is not necessary. Performed By: #### 2 4362-6 ####STEFANO TROY ([id number])[facility] ([facility])[address] [place] [address] Potassium [Moles/Vol] 4.4 mmol/L Normal 3.5-5.3 [facility] Comment on above: Performed By: #### 2 4362-6 ####STEFANO TROY ([id number])[facility] ([facility])[address] [place] [address] Sodium [Moles/Vol] 134 mmol/L Low 136-145 [facility] Comment on above: Performed By: #### 2 4362-6 ####STEFANO TROY ([id number])[facility] ([facility])[address] [place] [address] Urea nitrogen [Mass/Vol] 41 mg/dL High 6-23 [facility] Comment on above: Performed By: #### 2 4362-6 ####STEFANO TROY ([id number])[facility] ([facility] [place] [id number] Respiratory Culture/SmearOrd ered By: Joann Dennis on 08-15-2024 Bacteria identified Respiratory culture Nom (Unsp spec) Culture not performed. See Gram stain findings. Recollect if clinically indicated. Abnormal [facility] Bacteria identifiedon 2023 Bacteria identified Respiratory culture Nom (Unsp spec) Abnormal [facility] Comment on above: Performed By: #### 3 2355-0 ####ZABRINA Villalba ([id number])[facility] ([facility])[address] [place], [place] [id number] CBC W Auto Differential pane l (Bld)on 08-14-2024 Basophils (Bld) [#/Vol] 0.01 10*3/uL [facility] Basophils/100 WBC (Bld) 0.1 % 0.0 - 2.0 % [facility] Eosinophils (Bld) [#/Vol] 0.11 10*3/uL [facility] Eosinophils/100 WBC (Bld) 0.9 % 0.0 - 6.0 % [facility] Erythrocyte distribution width (RBC) [Ratio] 15 % High 11.5 - 14.5 % [facility] Hematocrit (Bld) [Volume fraction] 24.9 % Low 36.0 - 46.0 % [facility] Hemoglobin (Bld) [Mass/Vol] 9 g/dL Low 12.0 - 16.0 g/dL [facility] Immature granulocytes (Bld) [#/Vol] 0.07 10*3/uL [facility] Immature granulocytes/100 WBC (Bld) 0.6 % 0.0 - 0.9 % [facility] Interpretation and review of laboratory results Abnormal [facility] Lymphocytes (Bld) [#/Vol] 1.85 10*3/uL [facility] Lymphocytes/100 WBC (Bld) 15.5 % 13.0 - 44.0 % [facility] MCH (RBC) [Entitic mass] 30.1 pg 26. 0 - 34.0 pg [facility] MCHC (RBC) [Mass/Vol] 36.1 g/dL High 32.0 - 36.0 g/dL [facility] MCV (RBC) [Entitic vol] 83 fL 80 - 100 fL [facility] Monocytes (Bld) [#/Vol] 1.13 10*3/uL [facility] Monocytes/100 WBC (Bld) 9.5 % 2.0 - 10.0 % [facility] Neutrophils (Bld) [#/Vol] 8.77 10*3/uL [facility] Neutrophils/100 WBC (Bld) 73.4 % 40.0 - 80.0 % [facility] Nucleated RBC/100 WBC (Bld) [Ratio] 0.3 % [facility] Platelets (Bld) [#/Vol] 224 10*3/uL [facility] RBC (Bld) [#/Vol] 2.99 10*6/uL Low [facility] WBC (Bld) [#/Vol] 11.9 10*3/uL High [facility] Basophils (Bld) [#/Vol] 0.01 x10*3/uL Normal 0.00-0.10 [facility] Comment on above: Performed By: #### 5 7021-8 ####STEFANO TROY ([id number])[facility] ([facility])[address] [place] [address] Basophils/100 WBC (Bld) 0.1 % Normal 0.0-2.0 [facility] Comment on above: Performed By: #### 5 7021-8 ####STEFANO TROY ([id number])[facility] ([facility])[address] [place] [address] Eosinophils (Bld) [#/Vol] 0.11 x10*3/uL Normal 0.00-0.40 [facility] Comment on above: Performed By: ###Óscar 5 7021-8 ####STEFANO TROY ([id number])[facility] ([facility])[address] [place] [address] Eosinophils/100 WBC (Bld) 0.9 % Normal 0.0-6.0 [facility] Comment on above: Performed By: #### 5 7021-8 ####STEFANO TROY ([id number])[facility] ([facility])[address] [place] [address] Erythrocyte distribution width (RBC) [Ratio] 15.0 % High 11.5-14.5 [facility] Comment on above: Performed By: #### 5 7021-8 ####STEFANO TROY ([id number])[facility] ([facility])[address] [place] [address] Hematocrit (Bld) [Volume fraction] 24.9 % Low 36.0-46.0 [facility] Comment on above: Performed By: #### 5 7021-8 ####STEFANO TROY ([id number])[facility] ([facility])[address] [place] [address] Hemoglobin (Bld) [Mass/Vol] 9.0 g/dL Low 12.0-16.0 [facility] Comment on above: Performed By: #### 5 7021-8 ####STEFANO TROY ([id number])[facility] ([facility])[address] [place] [address] Immature granulocytes (Bld) [#/Vol] 0.07 x10*3/uL Normal 0.00-0.50 [facility] Comment on above: Performed By: #### 5 7021-8 ####STEFANO TROY ([id number])[facility] ([facility])[address] [place] [id number] Immature granulocytes/100 WBC (Bld) 0.6 % Normal 0.0-0.9 [facility] Comment on above: Result Comment: Laurie ture Granulocyte Count (IG) includes promyelocytes, myelocytes and metamyelocytes but does not include bands. Percent differential counts (%) should be interpreted in the context of the absolute cell counts (cells/UL). Performed By: #### 5 7021-8 ####STEFANO TROY ([id number])[facility] ([facility])[address] [place] [address] Lymphocytes (Bld) [#/Vol] 1.85 x10*3/uL Normal 0.80-3.00 [facility] Comment on above: Performed By: #### 5 7021-8 ####STEFANO TROY ([id number])[facility] ([facility])[address] [place] [address] Lymphocytes/100 WBC (Bld) 15.5 % Normal 13.0-44.0 [facility] Comment on above: Performed By: #### 5 7021-8 ####STEFANO TROY ([id number])[facility] ([facility])[address] [place] [address] MCH (RBC) [Entitic mass] 30.1 pg Normal 26.0-34.0 [facility] Comment on above: Performed By: #### 5 7021-8 ####STEFANO TROY ([id number])[facility] ([facility])[address] [place] [address] MCHC (RBC) [Mass/Vol] 36.1 g/dL High 32.0-36.0 [facility] Comment on above: Performed By: #### 5 7021-8 ####STEFANO TROY ([id number])[facility] ([facility])[address] [place] [address] MCV (RBC) [Entitic vol] 83 fL Normal 80-100 [facility] Comment on above: Performed By: #### 5 7021-8 ####STEFANO TROY ([id number])[facility] ([facility])[address] [place], [place] [id number] Monocytes (Bld) [#/Vol] 1.13 x10*3/uL High 0.05-0.80 [facility] Comment on above: Performed By: #### 5 7021-8 ####STEFANO TROY ([id number])[facility] ([facility])[address] [place] [address] Monocytes/100 WBC (Bld) 9.5 % Normal 2.0-10.0 [facility] Comment on above: Performed By: #### 5 7021-8 ####STEFANO TROY ([id number])[facility] ([facility])[address] [place] [address] Neutrophils (Bld) [#/Vol] 8.77 x10*3/uL High 1.60-5.50 [facility] Comment on above: Result Comment: Perc ent differential counts (%) should be interpreted in the context of the absolute cell counts (cells/uL). Performed By: #### 5 7021-8 ####STEFANO TROY ([id number])[facility] ([facility])[address] [place] [address] Neutrophils/100 WBC (Bld) 73.4 % Normal 40.0-80.0 [facility] Comment on above: Performed By: #### 5 7021-8 ####STEFANO TROY ([id number])[facility] ([facility])[address] [place] [address] Nucleated RBC/100 WBC (Bld) [Ratio] 0.3 /100 WBCs High 0.0-0.0 [facility] Comment on above: Performed By: #### 5 7021-8 ####STEFANO TROY ([id number])[facility] ([facility])[address] [place] [address] Platelets (Bld) [#/Vol] 224 x10*3/uL Normal 150-450 [facility] Comment on above: Performed By: #### 5 7021-8 ####STEFANO TROY ([id number])[facility] ([facility])[address] [place] [address] RBC (Bld) [#/Vol] 2.99 x10*6/uL Low 4.00-5.20 [facility] Comment on above: Performed By: #### 5 7021-8 ####STEFANO TROY ([id number])[facility] ([facility])[address] [place] [id number] WBC (Bld) [#/Vol] 11.9 x10*3/uL High 4.4-11.3 [facility] Comment on above: Performed By: #### 5 7021-8 ####STEFANO TROY ([id number])[facility] ([facility])[address] [place] [id number] ECG 12-LEADon 08-14-2024 ECG 12-LEAD Ventricular Rate 92 Atrial Rate 92 P-R Interval 168 QRS Duration 134 Q-T Interval 430 QTC Calculation(Bazett) 531 P Seward 40 R Seward 136 T Seward 47 QRS Count 15 Q Onset 214 P Onset 130 P Offset 179 T Offset 429 QTC Fredericia 495 Diagnosis Normal sinus rhythm Right axis deviation Nonspecific intraventricular block Cannot rule out Anteroseptal infarct , age undetermined ST elevation in Inferior leads ACUTE ID Abnormal ECG When compared with ECG of 13-AUG-2024 08:21, (unconfirmed) Sinus rhythm has replaced Junctional rhythm QRS axis Shifted right Nonspecific T wave abnormality now evident in Anterior leads Confirmed by Kevin Kenyon ([id number]) on 08/19/2024 7:28:14 PM Normal [facility] Gas and Carbon monoxide and Electrolytes panel (BldA)on 08-14-2024 Anion gap 4 (BldA) [Moles/Vol] 11 [facility] Base excess Calc (Bld) [Moles/Vol] -0.8000 mmol/L -2.0 - 3.0 mmol/L [facility] Calcium.ionized (BldA) [Moles/Vol] 1.14 mmol/L 1.10 - 1.33 mmol/L [facility] Chloride (BldA) [Moles/Vol] 102 mmol/L 98 - 107 mmol/L [facility] CO2 (Bld) [Partial pressure] 28 mm[Hg] Low [facility] Flow 40 LPM [facility] Glucose [Mass/Vol] 121 mg/dL High 74 - 99 mg/dL [facility] HCO3 (Bld) [Moles/Vol] 21.8 mmol/L Low 22.0 - 26.0 mmol/L [facility] Hematocrit Est (Bld) [Volume fraction] 27 % Low 36.0 - 46.0 % [facility] Hemoglobin (Bld) [Mass/Vol] 8.9 g/dL Low 12.0 - 16.0 g/dL [facility] Inhaled oxygen concentration 40 % [facility] Interpretation and review of laboratory results Abnormal [facility] Lactate (BldA) [Moles/Vol] 1.4 mmol/L 0.4 - 2.0 mmol/L [facility] Oxygen (Bld) [Partial pressure] 95 mm[Hg] [facility] Oxyhemoglobin (BldA) [Mass fraction] 97.1 % 94.0 - 98.0 % [facility] pH (Bld) 7.5 [pH] High 7.38 - 7.42 pH [facility] Potassium (BldA) [Moles/Vol] 3.9 mmol/L 3.5 - 5.3 mmol/L [facility] Sodium (BldA) [Moles/Vol] 131 mmol/L Low 136 - 145 mmol/L [facility] Anion gap 4 (BldA) [Moles/Vol] 11 mmo/L Normal 10-25 [facility] Comment on above: Performed By: ###Óscar 9 3685-6 ####STEFANO TROY ([id number])[facility] ([facility])[address] [place], [place] [id number] Base excess Calc (Bld) [Moles/Vol] -0.8000 mmol/L Normal -2.0-3.0 [facility] Comment on above: Performed By: #### 9 3685-6 ####STEFANO TROY ([id number])[facility] ([facility])[address] [place], [place] [phone] Calcium.ionized (BldA) [Moles/Vol] 1.14 mmol/L Normal 1.10-1.33 [facility] Comment on above: Performed By: #### 9 3685-6 ####STEFANO TROY ([id number])[facility] ([facility])[address] [place] [address] Chloride (BldA) [Moles/Vol] 102 mmol/L Normal 98-107 [facility] Comment on above: Performed By: #### 9 3685-6 ####STEFANO TROY ([id number])[facility] ([facility])[address] [place] [address] CO2 (Bld) [Partial pressure] 28 mm Hg Low 38-42 [facility] Comment on above: Performed By: #### 9 3685-6 ####STEFANO TROY ([id number])[facility] ([facility])[address] [place] [address] FLOW 40.0 LPM Normal [facility] Comment on above: Performed By: #### 9 3685-6 ####STEFANO TROY ([id number])[facility] ([facility])[address] [place] [address] Glucose [Mass/Vol] 121 mg/dL High 74-99 [facility] Comment on above: Performed By: #### 9 3685-6 ####STEFANO TROY ([id number])[facility] ([facility])[address] [place] [address] HCO3 (Bld) [Moles/Vol] 21.8 mmol/L Low 22.0-26.0 [facility] Comment on above: Performed By: #### 9 3685-6 ####STEFANO TROY ([id number])[facility] ([facility])[address] [place] [id number] Hematocrit Est (Bld) [Volume fraction] 27.0 % Low 36.0-46.0 [facility] Comment on above: Performed By: #### 9 3685-6 ####STEFANO TROY ([id number])[facility] ([facility])[address] [place] [id number] Hemoglobin (Bld) [Mass/Vol] 8.9 g/dL Low 12.0-16.0 [facility] Comment on above: Performed By: #### 9 3685-6 ####STEFANO TROY ([id number])[facility] ([facility])[address] [place] [id number] Inhaled oxygen concentration 40 % Normal [facility] Comment on above: Performed By: #### 9 3685-6 ####STEFANO TROY ([id number])[facility] ([facility])9269 [place] [id number] Lactate (BldA) [Moles/Vol] 1.4 mmol/L Normal 0.4-2.0 [facility] Comment on above: Performed By: #### 9 3685-6 ####STEFANO TROY ([id number])[facility] ([facility])[address] [place] [address] Oxygen (Bld) [Partial pressure] 95 mm Hg Normal 85-95 [facility] Comment on above: Performed By: #### 9 3685-6 ####STEFANO TROY ([id number])[facility] ([facility])[address] [place] [address] Oxyhemoglobin (BldA) [Mass fraction] 97.1 % Normal 94.0-98.0 [facility] Comment on above: Performed By: #### 9 3685-6 ####STEFANO TROY ([id number])[facility] ([facility])[address] [place], [place] [address] pH (Bld) 7.50 [pH] High 7.38-7.42 [facility] Comment on above: Performed By: #### 9 3685-6 ####STEFANO TROY ([id number])[facility] ([facility])[address] [place], [place] [address] Potassium (BldA) [Moles/Vol] 3.9 mmol/L Normal 3.5-5.3 [facility] Comment on above: Performed By: #### 9 3685-6 ####STEFANO TROY ([id number])[facility] ([facility])[address] [place] [address] Sodium (BldA) [Moles/Vol] 131 mmol/L Low 136-145 [facility] Comment on above: Performed By: #### 9 3685-6 ####STEFANO TROY ([id number])[facility] ([facility])[address] [place] [address] Anion gap 4 (BldA) [Moles/Vol] 11 [facility] Base excess Calc (Bld) [Moles/Vol] -0.1000 mmol/L -2.0 - 3.0 mmol/L [facility] Calcium.ionized (BldA) [Moles/Vol] 1.14 mmol/L 1.10 - 1.33 mmol/L [facility] Chloride (BldA) [Moles/Vol] 100 mmol/L 98 - 107 mmol/L [facility] CO2 (Bld) [Partial pressure] 29 mm[Hg] Low [facility] Flow 60 LPM [facility] Glucose [Mass/Vol] 153 mg/dL High 74 - 99 mg/dL [facility] HCO3 (Bld) [Moles/Vol] 22.6 mmol/L 22.0 - 26.0 mmol/L [facility] Hematocrit Est (Bld) [Volume fraction] 28 % Low 36.0 - 46.0 % [facility] Hemoglobin (Bld) [Mass/Vol] 9.2 g/dL Low 12.0 - 16.0 g/dL [facility] Inhaled oxygen concentration 50 % [facility] Interpretation and review of laboratory results Abnormal [facility] Lactate (BldA) [Moles/Vol] 1.4 mmol/L 0.4 - 2.0 mmol/L [facility] Oxygen (Bld) [Partial pressure] 81 mm[Hg] Low [facility] Oxyhemoglobin (BldA) [Mass fraction] 95.9 % 94.0 - 98.0 % [facility] pH (Bld) 7.5 [pH] High 7.38 - 7.42 pH [facility] Potassium (BldA) [Moles/Vol] 3.6 mmol/L 3.5 - 5.3 mmol/L [facility] Sodium (BldA) [Moles/Vol] 130 mmol/L Low 136 - 145 mmol/L [facility] Anion gap 4 (BldA) [Moles/Vol] 11 mmo/L Normal 10-25 [facility] Comment on above: Performed By: #### 9 3685-6 ####STEFANO TROY ([id number])[facility] ([facility])[address] [place] [address] Base excess Calc (Bld) [Moles/Vol] -0.1000 mmol/L Normal -2.0-3.0 [facility] Comment on above: Performed By: #### 9 3685-6 ####STEFANO TROY ([id number])[facility] ([facility])[address] [place] [address] Calcium.ionized (BldA) [Moles/Vol] 1.14 mmol/L Normal 1.10-1.33 [facility] Comment on above: Performed By: #### 9 3685-6 ####STEFANO TROY ([id number])[facility] ([facility])[address] [place] [address] Chloride (BldA) [Moles/Vol] 100 mmol/L Normal 98-107 [facility] Comment on above: Performed By: #### 9 3685-6 ####STEFANO TROY ([id number])[facility] ([facility])[address] [place], [place] [address] CO2 (Bld) [Partial pressure] 29 mm Hg Low 38-42 [facility] Comment on above: Performed By: #### 9 3685-6 ####STEFANO TROY ([id number])[facility] ([facility])[address] [place], [place] [address] FLOW 60.0 LPM Normal [facility] Comment on above: Performed By: #### 9 3685-6 ####STEFANO TROY ([id number])[facility] ([facility])[address] [place], [place] [address] Glucose [Mass/Vol] 153 mg/dL High 74-99 [facility] Comment on above: Performed By: #### 9 3685-6 ####STEFANO TROY ([id number])[facility] ([facility])[address] [place], [place] [address] HCO3 (Bld) [Moles/Vol] 22.6 mmol/L Normal 22.0-26.0 [facility] Comment on above: Performed By: #### 9 3685-6 ####STEFANO TROY ([id number])[facility] ([facility])[address] [place] [address] Hematocrit Est (Bld) [Volume fraction] 28.0 % Low 36.0-46.0 [facility] Comment on above: Performed By: #### 9 3685-6 ####STEFANO TROY ([id number])[facility] ([facility])[address] [place] [address] Hemoglobin (Bld) [Mass/Vol] 9.2 g/dL Low 12.0-16.0 [facility] Comment on above: Performed By: #### 9 3685-6 ####STEFANO TROY ([id number])[facility] ([facility])[address] [place] [address] Inhaled oxygen concentration 50 % Normal [facility] Comment on above: Performed By: #### 9 3685-6 ####STEFANO TROY ([id number])[facility] ([facility])[address] [place] [address] Lactate (BldA) [Moles/Vol] 1.4 mmol/L Normal 0.4-2.0 [facility] Comment on above: Performed By: #### 9 3685-6 ####STEFANO TROY ([id number])[facility] ([facility])[address] [place] [address] Oxygen (Bld) [Partial pressure] 81 mm Hg Low 85-95 [facility] Comment on above: Performed By: #### 9 3685-6 ####STEFANO TROY ([id number])[facility] ([facility])[address] [place] [address] Oxyhemoglobin (BldA) [Mass fraction] 95.9 % Normal 94.0-98.0 [facility] Comment on above: Performed By: #### 9 3685-6 ####STEFANO TROY ([id number])[facility] ([facility])[address] [place] [address] pH (Bld) 7.50 [pH] High 7.38-7.42 [facility] Comment on above: Performed By: #### 9 3685-6 ####STEFANO TROY ([id number])[facility] ([facility])[address] [place] [address] Potassium (BldA) [Moles/Vol] 3.6 mmol/L Normal 3.5-5.3 [facility] Comment on above: Performed By: #### 9 3685-6 ####STEFANO TORY ([id number])[facility] ([facility])[address] [place] [address] Sodium (BldA) [Moles/Vol] 130 mmol/L Low 136-145 [facility] Comment on above: Performed By: #### 9 3685-6 ####STEFANO TROY ([id number])[facility] ([facility])[address] [place] [address] Glucose Test strip manual (B ld) [Mass/Vol]on 08-14-2024 Glucose [Mass/Vol] 149 mg/dL High 74 - 99 mg/dL [facility] Interpretation and review of laboratory results Abnormal [facility] Glucose [Mass/Vol] 149 mg/dL High 74-99 [facility] Comment on above: Performed By: #### 2 341-6 ####STEFANO TROY ([id number])[facility] ([facility])[address] [place] [address] Glucose [Mass/Vol] 111 mg/dL High 74 - 99 mg/dL [facility] Interpretation and review of laboratory results Abnormal [facility] Glucose [Mass/Vol] 111 mg/dL High 74-99 [facility] Comment on above: Performed By: #### 2 341-6 ####STEFANO TROY ([id number])[facility] ([facility])[address] [place] [address] Glucose [Mass/Vol] 163 mg/dL High 74 - 99 mg/dL [facility] Interpretation and review of laboratory results Abnormal [facility] Glucose [Mass/Vol] 163 mg/dL High 74-99 [facility] Comment on above: Performed By: #### 2 341-6 ####STEFANO TROY ([id number])[facility] ([facility])[address] [place] [address] Glucose [Mass/Vol] 142 mg/dL High 74 - 99 mg/dL [facility] Interpretation and review of laboratory results Abnormal [facility] Glucose [Mass/Vol] 142 mg/dL High 74-99 [facility] Comment on above: Performed By: #### 2 341-6 ####STEFANO TROY ([id number])[facility] ([facility])[address] [place] [address] Magnesiumon 08-14-2024 Magnesium [Mass/Vol] 2.22 mg/dL 1.60 - 2.40 mg/dL [facility] Magnesium [Mass/Vol] 2.22 mg/dL Normal 1.60-2.40 [facility] Comment on above: Performed By: #### 1 9123-9 ####STEFANO TROY ([id number])[facility] ([facility])[address] [place], [place] [address] Magnesium [Mass/Vol]on 08-14 Interpretation and review of laboratory results Normal [facility] Renal function 2000 panelon 08-14-2024 Albumin BCP dye [Mass/Vol] 3.1 g/dL Low 3.4 - 5.0 g/dL [facility] Anion gap [Moles/Vol] 12 mmol/L 10 - 2 0 mmol/L [facility] Calcium [Mass/Vol] 7.6 mg/dL Low 8.6 - 10. 3 mg/dL [facility] Chloride [Moles/Vol] 100 mmol/L 98 - 10 7 mmol/L [facility] CO2 [Moles/Vol] 22 mmol/L 21 - 32 mmol/L [facility] Creatinine [Mass/Vol] 0.79 mg/dL 0.50 - 1.05 mg/dL [facility] GFR/1.73 sq M.predicted among non-blacks MDRD (S/P/Bld) [Vol rate/Area] 79 mL/min/{1.73_m2} - PINF [facility] Glucose [Mass/Vol] 138 mg/dL High 74 - 99 mg/dL [facility] Interpretation and review of laboratory results Abnormal [facility] Phosphate [Mass/Vol] 2.9 mg/dL 2.5 - 4 .9 mg/dL [facility] Potassium [Moles/Vol] 3.6 mmol/L 3.5 - 5.3 mmol/L [facility] Sodium [Moles/Vol] 130 mmol/L Low 136 - 145 mmol/L [facility] Urea nitrogen [Mass/Vol] 39 mg/dL High 6 - 23 mg/d L [facility] Albumin BCP dye [Mass/Vol] 3.1 g/dL Low 3.4-5.0 [facility] Comment on above: Performed By: #### 2 4362-6 ####STEFANO TROY ([id number])[facility] ([facility])[address] [place] [address] Anion gap [Moles/Vol] 12 mmol/L Normal 10-20 [facility] Comment on above: Performed By: #### 2 4362-6 ####STEFANO TROY ([id number])[facility] ([facility])[address] [place] [address] Calcium [Mass/Vol] 7.6 mg/dL Low 8.6-10.3 [facility] Comment on above: Performed By: #### 2 4362-6 ####STEFANO TROY ([id number])[facility] ([facility])[address] [place] [address] Chloride [Moles/Vol] 100 mmol/L Normal 98-107 [facility] Comment on above: Performed By: #### 2 4362-6 ####STEFANO TROY ([id number])[facility] ([facility])[address] [place] [address] CO2 [Moles/Vol] 22 mmol/L Normal 21-32 [facility] Comment on above: Performed By: #### 2 4362-6 ####STEFANO TROY ([id number])[facility] ([facility])[address] [place] [address] Creatinine [Mass/Vol] 0.79 mg/dL Normal 0.50-1.05 [facility] Comment on above: Performed By: #### 2 4362-6 ####STEFANO TROY ([id number])[facility] ([facility])[address] [place] [address] Glomerular filtration rate/1.73 sq M.predicted 79 mL/min/1.73m*2 Normal >60 [facility] Comment on above: Result Comment: Calc ulations of estimated GFR are performed using the 2020 CKD-EPI Study Refit equation without the race variable for the IDMS-Traceable creatinine methods.https://jasn.asnjournals.org/content/early /ASN.2268128602 Performed By: #### 2 4362-6 ####STEFANO TROY ([id number])[facility] ([facility])[address] [place] [address] Glucose [Mass/Vol] 138 mg/dL High 74-99 [facility] Comment on above: Performed By: #### 2 4362-6 ####STEFANO TROY ([id number])[facility] ([facility])[address] [place] [address] Phosphate [Mass/Vol] 2.9 mg/dL Normal 2.5-4.9 [facility] Comment on above: Result Comment: The performance characteristics of phosphorus testing in heparinized plasma have been validated by the individual laboratory site where testing is performed. Testing on heparinized plasma is not approved by the FDA; however, such approval is not necessary. Performed By: #### 2 4362-6 ####STEFANO TROY ([id number])[facility] ([facility])[address] [place] [address] Potassium [Moles/Vol] 3.6 mmol/L Normal 3.5-5.3 [facility] Comment on above: Performed By: #### 2 4362-6 ####STEFANO TROY ([id number])[facility] ([facility])[address] [place] [address] Sodium [Moles/Vol] 130 mmol/L Low 136-145 [facility] Comment on above: Performed By: #### 2 4362-6 ####STEFANO TROY ([id number])[facility] ([facility])[address] [place] [address] Urea nitrogen [Mass/Vol] 39 mg/dL High 6-23 [facility] Comment on above: Performed By: #### 2 4362-6 ####STEFANO TROY ([id number])[facility] ([facility])[address] [place] [id number] XR CHEST 1 VIEWon 08-14-2024 XR CHEST 1 VIEW Normal [facility] XR Chest Single viewon 08-14 [facility] Work Phone: [facility] Work Phone: Radiology Study observation (narrative) [facility] Work Phone: CBC W Auto Differential pane l (Bld)on 08-13-2024 Basophils (Bld) [#/Vol] 0.02 10*3/uL [facility] Basophils/100 WBC (Bld) 0.1 % 0.0 - 2.0 % [facility] Eosinophils (Bld) [#/Vol] 0.03 10*3/uL [facility] Eosinophils/100 WBC (Bld) 0.2 % 0.0 - 6.0 % [facility] Erythrocyte distribution width (RBC) [Ratio] 15.9 % High 11.5 - 14.5 % [facility] Hematocrit (Bld) [Volume fraction] 28 % Low 36.0 - 46.0 % [facility] Hemoglobin (Bld) [Mass/Vol] 9.9 g/dL Low 12.0 - 16.0 g/dL [facility] Immature granulocytes (Bld) [#/Vol] 0.16 10*3/uL [facility] Immature granulocytes/100 WBC (Bld) 0.9 % 0.0 - 0.9 % [facility] Interpretation and review of laboratory results Abnormal [facility] Lymphocytes (Bld) [#/Vol] 2.19 10*3/uL [facility] Lymphocytes/100 WBC (Bld) 12.8 % 13.0 - 44.0 % [facility] MCH (RBC) [Entitic mass] 30.7 pg 26. 0 - 34.0 pg [facility] MCHC (RBC) [Mass/Vol] 35.4 g/dL 32.0 - 36.0 g/dL [facility] MCV (RBC) [Entitic vol] 87 fL 80 - 100 fL [facility] Monocytes (Bld) [#/Vol] 1.68 10*3/uL High [facility] Monocytes/100 WBC (Bld) 9.8 % 2.0 - 10.0 % [facility] Neutrophils (Bld) [#/Vol] 12.98 10*3/uL High [facility] Neutrophils/100 WBC (Bld) 76.2 % 40.0 - 80.0 % [facility] Nucleated RBC/100 WBC (Bld) [Ratio] 0 % [facility] Platelets (Bld) [#/Vol] 247 10*3/uL [facility] RBC (Bld) [#/Vol] 3.23 10*6/uL Low [facility] WBC (Bld) [#/Vol] 17.1 10*3/uL High [facility] Basophils (Bld) [#/Vol] 0.02 x10*3/uL Normal 0.00-0.10 [facility] Comment on above: Performed By: #### 5 7021-8 ####STEFANO TROY ([id number])[facility] ([facility])[address] [place] [address] Basophils/100 WBC (Bld) 0.1 % Normal 0.0-2.0 [facility] Comment on above: Performed By: #### 5 7021-8 ####STEFANO TROY ([id number])[facility] ([facility])[address] [place] [address] Eosinophils (Bld) [#/Vol] 0.03 x10*3/uL Normal 0.00-0.40 [facility] Comment on above: Performed By: #### 5 7021-8 ####STEFANO TROY ([id number])[facility] ([facility])[address] [place] [address] Eosinophils/100 WBC (Bld) 0.2 % Normal 0.0-6.0 [facility] Comment on above: Performed By: #### 5 7021-8 ####STEFANO TROY ([id number])[facility] ([facility])[address] [place] [address] Erythrocyte distribution width (RBC) [Ratio] 15.9 % High 11.5-14.5 [facility] Comment on above: Performed By: #### 5 7021-8 ####STEFANO TROY ([id number])[facility] ([facility])[address] [place] [address] Hematocrit (Bld) [Volume fraction] 28.0 % Low 36.0-46.0 [facility] Comment on above: Performed By: #### 5 7021-8 ####STEFANO TROY ([id number])[facility] ([facility])[address] [place] [address] Hemoglobin (Bld) [Mass/Vol] 9.9 g/dL Low 12.0-16.0 [facility] Comment on above: Performed By: #### 5 7021-8 ####STEFANO TROY ([id number])[facility] ([facility])[address] [place] [address] Immature granulocytes (Bld) [#/Vol] 0.16 x10*3/uL Normal 0.00-0.50 [facility] Comment on above: Performed By: #### 5 7021-8 ####STEFANO TROY ([id number])[facility] ([facility])[address] [place] [id number] Immature granulocytes/100 WBC (Bld) 0.9 % Normal 0.0-0.9 [facility] Comment on above: Result Comment: Laurie ture Granulocyte Count (IG) includes promyelocytes, myelocytes and metamyelocytes but does not include bands. Percent differential counts (%) should be interpreted in the context of the absolute cell counts (cells/UL). Performed By: #### 5 7021-8 ####STEFANO TROY ([id number])[facility] ([facility])[address] [place] [address] Lymphocytes (Bld) [#/Vol] 2.19 x10*3/uL Normal 0.80-3.00 [facility] Comment on above: Performed By: #### 5 7021-8 ####STEFANO TROY ([id number])[facility] ([facility])[address] [place] [address] Lymphocytes/100 WBC (Bld) 12.8 % Normal 13.0-44.0 [facility] Comment on above: Performed By: #### 5 7021-8 ####STEFANO TROY ([id number])[facility] ([facility])[address] [place] [address] MCH (RBC) [Entitic mass] 30.7 pg Normal 26.0-34.0 [facility] Comment on above: Performed By: #### 5 7021-8 ####STEFANO TROY ([id number])[facility] ([facility])[address] [place] [address] MCHC (RBC) [Mass/Vol] 35.4 g/dL Normal 32.0-36.0 [facility] Comment on above: Performed By: #### 5 7021-8 ####STEFANO TROY ([id number])[facility] ([facility])[address] [place] [address] MCV (RBC) [Entitic vol] 87 fL Normal 80-100 [facility] Comment on above: Performed By: #### 5 7021-8 ####STEFANO TROY ([id number])[facility] ([facility])[address] [place] [address] Monocytes (Bld) [#/Vol] 1.68 x10*3/uL High 0.05-0.80 [facility] Comment on above: Performed By: #### 5 7021-8 ####STEFANO TROY ([id number])[facility] ([facility])[address] [place] [address] Monocytes/100 WBC (Bld) 9.8 % Normal 2.0-10.0 [facility] Comment on above: Performed By: #### 5 7021-8 ####STEFANO TROY ([id number])[facility] ([facility])[address] [place] [address] Neutrophils (Bld) [#/Vol] 12.98 x10*3/uL High 1.60-5.50 [facility] Comment on above: Result Comment: Perc ent differential counts (%) should be interpreted in the context of the absolute cell counts (cells/uL). Performed By: #### 5 7021-8 ####STEFANO TROY ([id number])[facility] ([facility])[address] [place] [address] Neutrophils/100 WBC (Bld) 76.2 % Normal 40.0-80.0 [facility] Comment on above: Performed By: #### 5 7021-8 ####STEFANO TROY ([id number])[facility] ([facility])[address] [place] [address] Nucleated RBC/100 WBC (Bld) [Ratio] 0.0 /100 WBCs Normal 0.0-0.0 [facility] Comment on above: Performed By: #### 5 7021-8 ####STEFANO TROY ([id number])[facility] ([facility])[address] [place] [address] Platelets (Bld) [#/Vol] 247 x10*3/uL Normal 150-450 [facility] Comment on above: Performed By: #### 5 7021-8 ####STEFANO TROY ([id number])[facility] ([facility])[address] [place] [address] RBC (Bld) [#/Vol] 3.23 x10*6/uL Low 4.00-5.20 [facility] Comment on above: Performed By: #### 5 7021-8 ####STEFANO TROY ([id number])[facility] ([facility])[address] [place] [address] WBC (Bld) [#/Vol] 17.1 x10*3/uL High 4.4-11.3 [facility] Comment on above: Performed By: #### 5 7021-8 ####STEFANO TROY ([id number])[facility] ([facility])[address] [place] [address] ECG 12-LEADon 08-13-2024 ECG 12-LEAD Ventricular Rate 104 Atrial Rate 104 P-R Interval 130 QRS Duration 146 Q-T Interval 410 QTC Calculation(Bazett) 539 P Seward 270 R Seward 96 T Seward -2 QRS Count 17 Q Onset 211 P Onset 146 P Offset 206 T Offset 416 QTC Fredericia 492 Diagnosis Unusual P axis and short NJ, probable junctional tachycardia Rightward axis Nonspecific intraventricular block Abnormal ECG When compared with ECG of 13-AUG-2024 06:22, (unconfirmed) Junctional rhythm has replaced Sinus rhythm QRS axis Shifted left Criteria for Lateral infarct are no longer Present Criteria for Inferior infarct are no longer Present QT has lengthened Confirmed by Cassius Mei ([id number]) on 08/17/2024 11:26:11 AM Normal [facility] ECG 12-LEAD Ventricular Rate 99 Atrial Rate 99 P-R Interval 128 QRS Duration 138 Q-T Interval 296 QTC Calculation(Bazett) 379 R Seward 145 T Seward 44 QRS Count 16 Q Onset 218 P Onset 96 P Offset 132 T Offset 366 QTC Fredericia 349 Diagnosis Suspect arm lead reversal, interpretation assumes no reversal Normal sinus rhythm Nonspecific intraventricular block Possible Right ventricular hypertrophy Cannot rule out Septal infarct (cited on or before 12-AUG-2024) Lateral infarct (cited on or before 12-AUG-2024) Inferior infarct , age undetermined ACUTE ID Abnormal ECG When compared with ECG of 12-AUG-2024 17:34, (unconfirmed) NJ interval has decreased Serial changes of Septal infarct Present Confirmed by Cassius Mei ([id number]) on 08/17/2024 11:25:29 AM Normal [facility] Electrocardiogram 12-lead NJ N ACS symptomsOrdered By: Alexy Montana on 08-13-2024 Atrial Rate 99 BPM [facility] Work Phone: NJ Interval 288 ms [facility] Work Phone: Q Onset 217 ms [facility] Work Phone: QRS Count 16 beats [facility] Work Phone: QRS Duration 132 ms [facility] Work Phone: QT Interval 318 ms [facility] Work Phone: QTC Calculation(Bazett) 408 ms [facility] Work Phone: QTC Fredericia 375 ms [facility] Work Phone: R Seward 106 degrees [facility] Work Phone: T Seward 22 degrees [facility] Work Phone: T Offset 376 ms [facility] Work Phone: Ventricular Rate 99 BPM [facility] Work Phone: [facility] Work Phone: Electrocardiogram 12-lead [place] N ACS symptomson 08-13-2024 MUSE [facility] Work Phone: Gas and Carbon monoxide and Electrolytes panel (BldA)on 08-13-2024 Anion gap 4 (BldA) [Moles/Vol] 15 [facility] Base excess Calc (Bld) [Moles/Vol] -2.2000 mmol/L Low -2.0 - 3.0 mmol/L [facility] Calcium.ionized (BldA) [Moles/Vol] 1.14 mmol/L 1.10 - 1.33 mmol/L [facility] Chloride (BldA) [Moles/Vol] 100 mmol/L 98 - 107 mmol/L [facility] CO2 (Bld) [Partial pressure] 25 mm[Hg] Low [facility] Glucose [Mass/Vol] 148 mg/dL High 74 - 99 mg/dL [facility] HCO3 (Bld) [Moles/Vol] 19.9 mmol/L Low 22.0 - 26.0 mmol/L [facility] Hematocrit Est (Bld) [Volume fraction] 29 % Low 36.0 - 46.0 % [facility] Hemoglobin (Bld) [Mass/Vol] 9.7 g/dL Low 12.0 - 16.0 g/dL [facility] Inhaled oxygen concentration 65 % [facility] Interpretation and review of laboratory results Abnormal [facility] Lactate (BldA) [Moles/Vol] 2 mmol/L 0.4 - 2.0 mmol/L [facility] Oxygen (Bld) [Partial pressure] 72 mm[Hg] Low [facility] Oxyhemoglobin (BldA) [Mass fraction] 95.3 % 94.0 - 98.0 % [facility] pH (Bld) 7.51 [pH] High 7.38 - 7.42 pH [facility] Potassium (BldA) [Moles/Vol] 3.7 mmol/L 3.5 - 5.3 mmol/L [facility] Sodium (BldA) [Moles/Vol] 131 mmol/L Low 136 - 145 mmol/L [facility] Anion gap 4 (BldA) [Moles/Vol] 15 mmo/L Normal 10-25 [facility] Comment on above: Performed By: #### 9 3685-6 ####STEFANO TROY ([id number])[facility] ([facility])[address] [place] [address] Base excess Calc (Bld) [Moles/Vol] -2.2000 mmol/L Low -2.0-3.0 [facility] Comment on above: Performed By: #### 9 3685-6 ####STEFANO TROY ([id number])[facility] ([facility])[address] [place] [address] Calcium.ionized (BldA) [Moles/Vol] 1.14 mmol/L Normal 1.10-1.33 [facility] Comment on above: Performed By: #### 9 3685-6 ####STEFANO TROY ([id number])[facility] ([facility])[address] [place] [id number] Chloride (BldA) [Moles/Vol] 100 mmol/L Normal 98-107 [facility] Comment on above: Performed By: #### 9 3685-6 ####STEFANO TROY ([id number])[facility] ([facility])[address] [place] [id number] CO2 (Bld) [Partial pressure] 25 mm Hg Low 38-42 [facility] Comment on above: Performed By: #### 9 3685-6 ####STEFANO TROY ([id number])[facility] ([facility])[address] [place] [id number] Glucose [Mass/Vol] 148 mg/dL High 74-99 [facility] Comment on above: Performed By: #### 9 3685-6 ####STEFANO TROY ([id number])[facility] ([facility])[address] [place] [address] HCO3 (Bld) [Moles/Vol] 19.9 mmol/L Low 22.0-26.0 [facility] Comment on above: Performed By: #### 9 3685-6 ####STEFANO TROY ([id number])[facility] ([facility])[address] [place] [address] Hematocrit Est (Bld) [Volume fraction] 29.0 % Low 36.0-46.0 [facility] Comment on above: Performed By: #### 9 3685-6 ####STEFANO TROY ([id number])[facility] ([facility])[address] [place] [address] Hemoglobin (Bld) [Mass/Vol] 9.7 g/dL Low 12.0-16.0 [facility] Comment on above: Performed By: #### 9 3685-6 ####STEFANO TROY ([id number])[facility] ([facility])[address] [place] [id number] Inhaled oxygen concentration 65 % Normal [facility] Comment on above: Performed By: #### 9 3685-6 ####STEFANO TROY ([id number])[facility] ([facility])[address] [place] [id number] Lactate (BldA) [Moles/Vol] 2.0 mmol/L Normal 0.4-2.0 [facility] Comment on above: Performed By: #### 9 3685-6 ####STEFANO TROY ([id number])[facility] ([facility])[address] [place] [address] Oxygen (Bld) [Partial pressure] 72 mm Hg Low 85-95 [facility] Comment on above: Performed By: #### 9 3685-6 ####STEFANO TROY ([id number])[facility] ([facility])[address] [place] [address] Oxyhemoglobin (BldA) [Mass fraction] 95.3 % Normal 94.0-98.0 [facility] Comment on above: Performed By: #### 9 3685-6 ####STEFANO TROY ([id number])[facility] ([facility])[address] [place] [address] pH (Bld) 7.51 [pH] High 7.38-7.42 [facility] Comment on above: Performed By: #### 9 3685-6 ####STEFANO TROY ([id number])[facility] ([facility])[address] [place] [id number] Potassium (BldA) [Moles/Vol] 3.7 mmol/L Normal 3.5-5.3 [facility] Comment on above: Performed By: #### 9 3685-6 ####STEFANO TROY ([id number])[facility] ([facility])[address] [place] [address] Sodium (BldA) [Moles/Vol] 131 mmol/L Low 136-145 [facility] Comment on above: Performed By: #### 9 3685-6 ####STEFANO TROY ([id number])[facility] ([facility])[address] [place] [address] Glucose Test strip manual (B ld) [Mass/Vol]on 08-13-2024 Glucose [Mass/Vol] 150 mg/dL High 74 - 99 mg/dL [facility] Interpretation and review of laboratory results Abnormal [facility] Glucose [Mass/Vol] 150 mg/dL High 74-99 [facility] Comment on above: Performed By: #### 2 341-6 ####STEFANO TROY ([id number])[facility] ([facility])[address] [place] [address] Glucose [Mass/Vol] 142 mg/dL High 74 - 99 mg/dL [facility] Interpretation and review of laboratory results Abnormal [facility] Glucose [Mass/Vol] 142 mg/dL High 74-99 [facility] Comment on above: Performed By: #### 2 341-6 ####STEFANO TROY ([id number])[facility] ([facility])[address] [place] [address] Glucose [Mass/Vol] 127 mg/dL High 74 - 99 mg/dL [facility] Interpretation and review of laboratory results Abnormal [facility] Glucose [Mass/Vol] 127 mg/dL High 74-99 [facility] Comment on above: Performed By: #### 2 341-6 ####STEFANO TROY ([id number])[facility] ([facility])[address] [place] [address] Glucose [Mass/Vol] 179 mg/dL High 74 - 99 mg/dL [facility] Interpretation and review of laboratory results Abnormal [facility] Glucose [Mass/Vol] 179 mg/dL High 74-99 [facility] Comment on above: Performed By: #### 2 341-6 ####STEFANO SYDNI ([id number])[facility] ([facility] [place] [address] Legionella Antigen, UrineOrd ered By: Hannah Bower on 08-13-2024 Legionella sp Ag Ql (U) Negative Negative U [facility] No Panel InformationOrdered By: Hannah Bower on 08-13-2024 Interpretation and review of laboratory results Normal [facility] Renal function 2000 panelon 08-13-2024 Albumin BCP dye [Mass/Vol] 3.4 g/dL 3.4 - 5.0 g/dL [facility] Anion gap [Moles/Vol] 12 mmol/L 10 - 2 0 mmol/L [facility] Calcium [Mass/Vol] 7.7 mg/dL Low 8.6 - 10. 3 mg/dL [facility] Chloride [Moles/Vol] 101 mmol/L 98 - 10 7 mmol/L [facility] CO2 [Moles/Vol] 21 mmol/L 21 - 32 mmol/L [facility] Creatinine [Mass/Vol] 0.88 mg/dL 0.50 - 1.05 mg/dL [facility] GFR/1.73 sq M.predicted among non-blacks MDRD (S/P/Bld) [Vol rate/Area] 69 mL/min/{1.73_m2} - PINF [facility] Glucose [Mass/Vol] 161 mg/dL High 74 - 99 mg/dL [facility] Interpretation and review of laboratory results Abnormal [facility] Phosphate [Mass/Vol] 3.3 mg/dL 2.5 - 4 .9 mg/dL [facility] Potassium [Moles/Vol] 4 mmol/L 3.5 - 5.3 mmol/L [facility] Sodium [Moles/Vol] 130 mmol/L Low 136 - 145 mmol/L [facility] Urea nitrogen [Mass/Vol] 37 mg/dL High 6 - 23 mg/d L [facility] Albumin BCP dye [Mass/Vol] 3.4 g/dL Normal 3.4-5.0 [facility] Comment on above: Performed By: #### 2 4362-6 ####STEFANO TROY ([id number])[facility] ([facility])[address] [place] [address] Anion gap [Moles/Vol] 12 mmol/L Normal 10-20 [facility] Comment on above: Performed By: #### 2 4362-6 ####STEFANO TROY ([id number])[facility] ([facility])[address] [place] [address] Calcium [Mass/Vol] 7.7 mg/dL Low 8.6-10.3 [facility] Comment on above: Performed By: #### 2 4362-6 ####STEFANO TROY ([id number])[facility] ([facility])[address] [place] [address] Chloride [Moles/Vol] 101 mmol/L Normal 98-107 [facility] Comment on above: Performed By: #### 2 4362-6 ####STEFANO TROY ([id number])[facility] ([facility])[address] [place] [address] CO2 [Moles/Vol] 21 mmol/L Normal 21-32 [facility] Comment on above: Performed By: #### 2 4362-6 ####STEFANO TROY ([id number])[facility] ([facility])[address] [place] [address] Creatinine [Mass/Vol] 0.88 mg/dL Normal 0.50-1.05 [facility] Comment on above: Performed By: #### 2 4362-6 ####STEFANO TROY ([id number])[facility] ([facility])[address] [place] [address] Glomerular filtration rate/1.73 sq M.predicted 69 mL/min/1.73m*2 Normal >60 [facility] Comment on above: Result Comment: Calc ulations of estimated GFR are performed using the 2020 CKD-EPI Study Refit equation without the race variable for the IDMS-Traceable creatinine methods.https://jasn.asnjournals.org/content/ /ASN.4300341266 Performed By: #### 2 4362-6 ####STEFANO TROY ([id number])[facility] ([facility])[address] [place] [address] Glucose [Mass/Vol] 161 mg/dL High 74-99 [facility] Comment on above: Performed By: #### 2 4362-6 ####STEFANO TROY ([id number])[facility] ([facility])[address] [place] [address] Phosphate [Mass/Vol] 3.3 mg/dL Normal 2.5-4.9 [facility] Comment on above: Result Comment: The performance characteristics of phosphorus testing in heparinized plasma have been validated by the individual laboratory site where testing is performed. Testing on heparinized plasma is not approved by the FDA; however, such approval is not necessary. Performed By: #### 2 4362-6 ####STEFANO TROY ([id number])[facility] ([facility])[address] [place] [address] Potassium [Moles/Vol] 4.0 mmol/L Normal 3.5-5.3 [facility] Comment on above: Performed By: #### 2 4362-6 ####STEFANO TROY ([id number])[facility] ([facility])[address] [place] [address] Sodium [Moles/Vol] 130 mmol/L Low 136-145 [facility] Comment on above: Performed By: #### 2 4362-6 ####STEFANO TROY ([id number])[facility] ([facility])[address] [place] [address] Urea nitrogen [Mass/Vol] 37 mg/dL High 6-23 [facility] Comment on above: Performed By: #### 2 4362-6 ####STEFANO TROY ([id number])[facility] ([facility])[address] [place] [address] Streptococcus pneumoniae Ant igen, Urineon 08-13-2024 S. pneumoniae Ag Ql (U) Negative Negative U [facility] Work Phone: XR CHEST 1 VIEWon 08-13-2024 XR CHEST 1 VIEW Normal [facility] XR Chest Single viewon 08-13 [facility] Work Phone: Radiology Study observation (narrative) [facility] Work Phone: XR Chest Single viewOrdered By: Chirag Ortega on 08-13-2024 [facility] Work Phone: Bacteria identifiedon 2023 Bacteria identified Cx Nom (Bld) [facility] Comment on above: Performed By: #### 6 00-7 ####ZABRINA Villalba ([id number])[facility] ([facility])[id number] [place], [place] [id number] CBC W Auto Differential pane l (Bld)on 08-12-2024 Basophils (Bld) [#/Vol] 0.02 10*3/uL [facility] Basophils/100 WBC (Bld) 0.1 % 0.0 - 2.0 % [facility] Eosinophils (Bld) [#/Vol] 0.02 10*3/uL [facility] Eosinophils/100 WBC (Bld) 0.1 % 0.0 - 6.0 % [facility] Erythrocyte distribution width (RBC) [Ratio] 16 % High 11.5 - 14.5 % [facility] Hematocrit (Bld) [Volume fraction] 30.2 % Low 36.0 - 46.0 % [facility] Hemoglobin (Bld) [Mass/Vol] 10.3 g/dL Low 12.0 - 16.0 g/dL [facility] Immature granulocytes (Bld) [#/Vol] 0.13 10*3/uL [facility] Immature granulocytes/100 WBC (Bld) 0.7 % 0.0 - 0.9 % [facility] Interpretation and review of laboratory results Abnormal [facility] Lymphocytes (Bld) [#/Vol] 2.27 10*3/uL [facility] Lymphocytes/100 WBC (Bld) 12.3 % 13.0 - 44.0 % [facility] MCH (RBC) [Entitic mass] 30.1 pg 26. 0 - 34.0 pg [facility] MCHC (RBC) [Mass/Vol] 34.1 g/dL 32.0 - 36.0 g/dL [facility] MCV (RBC) [Entitic vol] 88 fL 80 - 100 fL [facility] Monocytes (Bld) [#/Vol] 2.16 10*3/uL High [facility] Monocytes/100 WBC (Bld) 11.7 % 2.0 - 10.0 % [facility] Neutrophils (Bld) [#/Vol] 13.84 10*3/uL High [facility] Neutrophils/100 WBC (Bld) 75.1 % 40.0 - 80.0 % [facility] Nucleated RBC/100 WBC (Bld) [Ratio] 0 % [facility] Platelets (Bld) [#/Vol] 237 10*3/uL [facility] RBC (Bld) [#/Vol] 3.42 10*6/uL Low [facility] WBC (Bld) [#/Vol] 19.2 10*3/uL High [facility] Basophils (Bld) [#/Vol] 0.02 x10*3/uL Normal 0.00-0.10 [facility] Comment on above: Performed By: #### 5 7021-8 ####STEFANO TROY ([id number])[facility] ([facility])[address] [place] [address] Basophils/100 WBC (Bld) 0.1 % Normal 0.0-2.0 U [facility] Comment on above: Performed By: ###Óscar 5 7021-8 ####STEFANO TROY ([id number])[facility] ([facility])[address] [place] [address] Eosinophils (Bld) [#/Vol] 0.02 x10*3/uL Normal 0.00-0.40 [facility] Comment on above: Performed By: #### 5 7021-8 ####STEFANO TROY ([id number])[facility] ([facility])[address] [place] [address] Eosinophils/100 WBC (Bld) 0.1 % Normal 0.0-6.0 [facility] Comment on above: Performed By: #### 5 7021-8 ####STEFANO TROY ([id number])[facility] ([facility])[address] [place] [address] Immature granulocytes (Bld) [#/Vol] 0.13 x10*3/uL Normal 0.00-0.50 [facility] Comment on above: Performed By: #### 5 7021-8 ####STEFANO TROY ([id number])[facility] ([facility])[address] [place], [place] [phone] Immature granulocytes/100 WBC (Bld) 0.7 % Normal 0.0-0.9 [facility] Comment on above: Result Comment: Laurie ture Granulocyte Count (IG) includes promyelocytes, myelocytes and metamyelocytes but does not include bands. Percent differential counts (%) should be interpreted in the context of the absolute cell counts (cells/UL). Performed By: #### 5 7021-8 ####STEFANO TROY ([id number])[facility] ([facility])[address] [place] [address] Lymphocytes (Bld) [#/Vol] 2.27 x10*3/uL Normal 0.80-3.00 [facility] Comment on above: Performed By: #### 5 7021-8 ####STEFANO TROY ([id number])[facility] ([facility])[address] [place] [address] Lymphocytes/100 WBC (Bld) 12.3 % Normal 13.0-44.0 [facility] Comment on above: Performed By: #### 5 7021-8 ####STEFANO TROY ([id number])[facility] ([facility])[address] [place] [address] Monocytes (Bld) [#/Vol] 2.16 x10*3/uL High 0.05-0.80 [facility] Comment on above: Performed By: #### 5 7021-8 ####STEFANO TROY ([id number])[facility] ([facility])[address] [place] [address] Monocytes/100 WBC (Bld) 11.7 % Normal 2.0-10.0 [facility] Comment on above: Performed By: #### 5 7021-8 ####STEFANO TROY ([id number])[facility] ([facility])[address] [place] [id number] Neutrophils (Bld) [#/Vol] 13.84 x10*3/uL High 1.60-5.50 [facility] Comment on above: Result Comment: Perc ent differential counts (%) should be interpreted in the context of the absolute cell counts (cells/uL). Performed By: #### 5 7021-8 ####STEFANO TROY ([id number])[facility] ([facility])[address] [place] [id number] Neutrophils/100 WBC (Bld) 75.1 % Normal 40.0-80.0 [facility] Comment on above: Performed By: #### 5 7021-8 ####STEFANO TROY ([id number])[facility] ([facility])[address] [place] [address] CBC panel Auto (Bld)on 08-12 Erythrocyte distribution width (RBC) [Ratio] 16 % High 11.5 - 14.5 % [facility] Hematocrit (Bld) [Volume fraction] 30.2 % Low 36.0 - 46.0 % [facility] Hemoglobin (Bld) [Mass/Vol] 10.3 g/dL Low 12.0 - 16.0 g/dL [facility] Interpretation and review of laboratory results Abnormal [facility] MCH (RBC) [Entitic mass] 30.1 pg 26. 0 - 34.0 pg [facility] MCHC (RBC) [Mass/Vol] 34.1 g/dL 32.0 - 36.0 g/dL [facility] MCV (RBC) [Entitic vol] 88 fL 80 - 100 fL [facility] Nucleated RBC/100 WBC (Bld) [Ratio] 0 % [facility] Platelets (Bld) [#/Vol] 237 10*3/uL [facility] RBC (Bld) [#/Vol] 3.42 10*6/uL Low [facility] WBC (Bld) [#/Vol] 19.2 10*3/uL [facility] E[facility]th[facility] distribution width (RBC) [Ratio] 16.1 % High 11.5 - 14.5 % [facility] Hematocrit (Bld) [Volume fraction] 27.7 % Low 36.0 - 46.0 % [facility] Hemoglobin (Bld) [Mass/Vol] 9 g/dL Low 12.0 - 16.0 g/dL [facility] Interpretation and review of laboratory results Abnormal [facility] MCH (RBC) [Entitic mass] 29.5 pg 26. 0 - 34.0 pg [facility] MCHC (RBC) [Mass/Vol] 32.5 g/dL 32.0 - 36.0 g/dL [facility] MCV (RBC) [Entitic vol] 91 fL 80 - 100 fL [facility] Nucleated RBC/100 WBC (Bld) [Ratio] 0 % [facility] Platelets (Bld) [#/Vol] 186 10*3/uL [facility] RBC (Bld) [#/Vol] 3.05 10*6/uL Low [facility] WBC (Bld) [#/Vol] 12.4 10*3/uL High [facility] Erythrocyte distribution width (RBC) [Ratio] 16.1 % High 11.5-14.5 [facility] Comment on above: Performed By: #### 5 8410-2 ####STEFANO TROY ([id number])[facility] ([facility])[address] [place] [address] Hematocrit (Bld) [Volume fraction] 27.7 % Low 36.0-46.0 [facility] Comment on above: Performed By: #### 5 8410-2 ####STEFANO TROY ([id number])[facility] ([facility])[address] [place] [address] Hemoglobin (Bld) [Mass/Vol] 9.0 g/dL Low 12.0-16.0 [facility] Comment on above: Performed By: #### 5 8410-2 ####STEFANO TROY ([id number])[facility] ([facility])[address] [place] [address] MCH (RBC) [Entitic mass] 29.5 pg Normal 26.0-34.0 [facility] Comment on above: Performed By: #### 5 8410-2 ####STEFANO TROY ([id number])[facility] ([facility])[address] [place] [address] MCHC (RBC) [Mass/Vol] 32.5 g/dL Normal 32.0-36.0 [facility] Comment on above: Performed By: #### 5 8410-2 ####STEFANO TROY ([id number])[facility] ([facility])[address] [place] [address] MCV (RBC) [Entitic vol] 91 fL Normal 80-100 [facility] Comment on above: Performed By: #### 5 8410-2 ####STEFANO TROY ([id number])[facility] ([facility])[address] [place], [place] [phone] Nucleated RBC/100 WBC (Bld) [Ratio] 0.0 /100 WBCs Normal 0.0-0.0 [facility] Comment on above: Performed By: #### 5 8410-2 ####STEFANO TROY ([id number])[facility] ([facility])[address] [place], [place] [phone] Platelets (Bld) [#/Vol] 186 x10*3/uL Normal 150-450 [facility] Comment on above: Performed By: #### 5 8410-2 ####STEFANO TROY ([id number])[facility] ([facility])[address] [place] [address] RBC (Bld) [#/Vol] 3.05 x10*6/uL Low 4.00-5.20 [facility] Comment on above: Performed By: #### 5 8410-2 ####STEFANO TROY ([id number])[facility] ([facility])[address] [place] [address] WBC (Bld) [#/Vol] 12.4 x10*3/uL High 4.4-11.3 [facility] Comment on above: Performed By: #### 5 8410-2 ####STEFANO TROY ([id number])[facility] ([facility])[address] [place] [address] Erythrocyte distribution width (RBC) [Ratio] 14.8 % High 11.5 - 14.5 % [facility] Hematocrit (Bld) [Volume fraction] 25.4 % Low 36.0 - 46.0 % [facility] Hemoglobin (Bld) [Mass/Vol] 9 g/dL Low 12.0 - 16.0 g/dL [facility] Interpretation and review of laboratory results Abnormal [facility] MCH (RBC) [Entitic mass] 30.1 pg 26. 0 - 34.0 pg [facility] MCHC (RBC) [Mass/Vol] 35.4 g/dL 32.0 - 36.0 g/dL [facility] MCV (RBC) [Entitic vol] 85 fL 80 - 100 fL [facility] Nucleated RBC/100 WBC (Bld) [Ratio] 0 % [facility] Platelets (Bld) [#/Vol] 182 10*3/uL [facility] RBC (Bld) [#/Vol] 2.99 10*6/uL Low [facility] WBC (Bld) [#/Vol] 11 10*3/uL [facility] Erythrocyte distribution width (RBC) [Ratio] 14.8 % High 11.5-14.5 [facility] Comment on above: Performed By: #### 5 8410-2 ####STEFANO TROY ([id number])[facility] ([facility])[address] [place] [address] Hematocrit (Bld) [Volume fraction] 25.4 % Low 36.0-46.0 [facility] Comment on above: Performed By: #### 5 8410-2 ####STEFANO TROY ([id number])[facility] ([facility])[address] [place] [address] Hemoglobin (Bld) [Mass/Vol] 9.0 g/dL Low 12.0-16.0 [facility] Comment on above: Performed By: #### 5 8410-2 ####STEFANO TROY ([id number])[facility] ([facility])[address] [place] [address] MCH (RBC) [Entitic mass] 30.1 pg Normal 26.0-34.0 [facility] Comment on above: Performed By: #### 5 8410-2 ####STEFANO TROY ([id number])[facility] ([facility])[address] [place] [address] MCHC (RBC) [Mass/Vol] 35.4 g/dL Normal 32.0-36.0 [facility] Comment on above: Performed By: #### 5 8410-2 ####STEFANO TROY ([id number])[facility] ([facility])[address] [place] [id number] MCV (RBC) [Entitic vol] 85 fL Normal 80-100 [facility] Comment on above: Performed By: #### 5 8410-2 ####STEFANO TROY ([id number])[facility] ([facility])[address] [place] [id number] Nucleated RBC/100 WBC (Bld) [Ratio] 0.0 /100 WBCs Normal 0.0-0.0 [facility] Comment on above: Performed By: #### 5 8410-2 ####STEFANO TROY ([id number])[facility] ([facility])[address] [place] [address] Platelets (Bld) [#/Vol] 182 x10*3/uL Normal 150-450 [facility] Comment on above: Performed By: #### 5 8410-2 ####STEFANO TROY ([id number])[facility] ([facility])[address] [place] [address] RBC (Bld) [#/Vol] 2.99 x10*6/uL Low 4.00-5.20 [facility] Comment on above: Performed By: #### 5 8410-2 ####STEFANO TROY ([id number])[facility] ([facility])[address] [place] [address] WBC (Bld) [#/Vol] 11.0 x10*3/uL Normal 4.4-11.3 [facility] Comment on above: Performed By: #### 5 8410-2 ####STEFANO TROY ([id number])[facility] ([facility])[address] [place] [address] Coagulation factor VIII acti vity actual/normal Coag (PPP) [Relative time]Ordered By: Katelin Childs on 08-12-2024 Interpretation and review of laboratory results Normal [facility] Complete blood count panelon 08-12-2024 Erythrocyte distribution width (RBC) [Ratio] 16.0 % High 11.5-14.5 [facility] Comment on above: Performed By: #### 5 8410-2 ####STEFANO TROY ([id number])[facility] ([facility])[address] [place] [address] Performed By: #### 5 7021-8 ####STEFANO TROY ([id number])[facility] ([facility])[address] [place] [id number] Hematocrit (Bld) [Volume fraction] 30.2 % Low 36.0-46.0 [facility] Comment on above: Performed By: #### 5 8410-2 ####STEFANO TROY ([id number])[facility] ([facility])[address] [place] [address] Performed By: #### 5 7021-8 ####STEFANO TROY ([id number])[facility] ([facility])[address] [place] [address] Hemoglobin (Bld) [Mass/Vol] 10.3 g/dL Low 12.0-16.0 [facility] Comment on above: Performed By: #### 5 8410-2 ####STEFANO TROY ([id number])[facility] ([facility])[address] [place] [address] Performed By: #### 5 7021-8 ####STEFANO TROY ([id number])[facility] ([facility])[address] [place] [address] MCH (RBC) [Entitic mass] 30.1 pg Normal 26.0-34.0 [facility] Comment on above: Performed By: #### 5 8410-2 ####STEFANO TROY ([id number])[facility] ([facility])[address] [place] [address] Performed By: #### 5 7021-8 ####STEFANO TROY ([id number])[facility] ([facility])[address] [place] [address] MCHC (RBC) [Mass/Vol] 34.1 g/dL Normal 32.0-36.0 [facility] Comment on above: Performed By: #### 5 8410-2 ####STEFANO TROY ([id number])[facility] ([facility])[address] [place] [address] Performed By: #### 5 7021-8 ####STEFANO TROY ([id number])[facility] ([facility])[address] [place] [address] MCV (RBC) [Entitic vol] 88 fL Normal 80-100 [facility] Comment on above: Performed By: #### 5 8410-2 ####STEFANO TROY ([id number])[facility] ([facility])[address] [place] [address] Performed By: #### 5 7021-8 ####STEFANO TROY ([id number])[facility] ([facility])[address] [place] [address] Nucleated RBC/100 WBC (Bld) [Ratio] 0.0 /100 WBCs Normal 0.0-0.0 [facility] Comment on above: Performed By: #### 5 8410-2 ####STEFANO TROY ([id number])[facility] ([facility])[address] [place] [address] Performed By: #### 5 7021-8 ####STEFANO TROY ([id number])[facility] ([facility])[address] [place] [address] Platelets (Bld) [#/Vol] 237 x10*3/uL Normal 150-450 [facility] Comment on above: Performed By: #### 5 8410-2 ####STEFANO TROY ([id number])[facility] ([facility])[address] [place] [address] Performed By: #### 5 7021-8 ####STEFANO TROY ([id number])[facility] ([facility])[address] [place] [address] RBC (Bld) [#/Vol] 3.42 x10*6/uL Low 4.00-5.20 [facility] Comment on above: Performed By: #### 5 8410-2 ####STEFANO TROY ([id number])[facility] ([facility])[address] [place] [address] Performed By: #### 5 7021-8 ####STEFANO TROY ([id number])[facility] ([facility])[address] [place], [place] [address] WBC (Bld) [#/Vol] 19.2 x10*3/uL High 4.4-11.3 [facility] Comment on above: Performed By: #### 5 8410-2 ####STEFANO TROY ([id number])[facility] ([facility])[address] [place], [place] [address] Performed By: #### 5 7021-8 ####STEFANO LI ([id number])[facility] ([facility] [place] [address] ECG 12-LEADon 08-12-2024 ECG 12-LEAD Ventricular Rate 99 Atrial Rate 99 P-R Interval 288 QRS Duration 132 Q-T Interval 318 QTC Calculation(Bazett) 408 R Seward 106 T Seward 22 QRS Count 16 Q Onset 217 T Offset 376 QTC Fredericia 375 Diagnosis Sinus rhythm with 1st degree AV block Nonspecific intraventricular block Anterolateral infarct (cited on or before 12-AUG-2024) Abnormal ECG When compared with ECG of 12-AUG-2024 08:32, Sinus rhythm has replaced Atrial fibrillation Questionable change in initial forces of Anterolateral leads Confirmed by Alexy Montana ([id number]) on 08/13/2024 10:22:47 AM Normal [facility] ECG 12-LEAD Ventricular Rate 121 Atrial Rate 133 QRS Duration 130 Q-T Interval 350 QTC Calculation(Bazett) 497 R Seward 89 T Seward 47 QRS Count 20 Q Onset 213 T Offset 388 QTC Fredericia 442 Diagnosis Atrial fibrillation with rapid ventricular response Low voltage QRS Nonspecific intraventricular block Cannot rule out Septal infarct , age undetermined Possible Lateral infarct , age undetermined Abnormal ECG Confirmed by Staci Díaz ([id number]) on 08/12/2024 11:41:30 AM Normal [facility] Electrocardiogram 12-lead [place] N for arrhythmiaon 08-12-2024 Atrial Rate 133 BPM [facility] Work Phone: )[phone] Q Onset 213 ms [facility] Work Phone: [phone] QRS Count 20 beats [facility] Work Phone: [phone] QRS Duration 130 ms [facility] Work Phone: [phone] QT Interval 350 ms [facility] Work Phone: [phone] QTC Calculation(Bazett) 497 ms [facility] Work Phone: [phone] QTC Fredericia 442 ms [facility] Work Phone: )[phone] R Seward 89 degrees [facility] Work Phone: )[phone] T Seward 47 degrees [facility] Work Phone: T Offset 388 ms [facility] Work Phone: Ventricular Rate 121 BPM [facility] Work Phone: MUSE [facility] Work Phone: [facility] Work Phone: Factor 8 ActivityOrdered By: Katelin Childs on 08-12-2024 Coagulation factor VIII activity actual/normal Coag (PPP) [Relative time] 108 % 55 - 180 % [facility] Gas and Carbon monoxide and Electrolytes panel (BldA)on 08-12-2024 Anion gap 4 (BldA) [Moles/Vol] 16 [facility] Apparatus HIGH FLOW CANNULA [facility] Base excess Calc (Bld) [Moles/Vol] -4.2000 mmol/L Low -2.0 - 3.0 mmol/L [facility] Calcium.ionized (BldA) [Moles/Vol] 1.17 mmol/L 1.10 - 1.33 mmol/L [facility] Chloride (BldA) [Moles/Vol] 100 mmol/L 98 - 107 mmol/L [facility] CO2 (Bld) [Partial pressure] 26 mm[Hg] Low [facility] Flow 60 LPM [facility] Glucose [Mass/Vol] 213 mg/dL High 74 - 99 mg/dL [facility] HCO3 (Bld) [Moles/Vol] 18.5 mmol/L Low 22.0 - 26.0 mmol/L [facility] Hematocrit Est (Bld) [Volume fraction] 31 % Low 36.0 - 46.0 % [facility] Hemoglobin (Bld) [Mass/Vol] 10.4 g/dL Low 12.0 - 16.0 g/dL [facility] Inhaled oxygen concentration 90 % [facility] Interpretation and review of laboratory results Abnormal [facility] Lactate (BldA) [Moles/Vol] 2.4 mmol/L High 0.4 - 2.0 mmol/L [facility] Oxygen (Bld) [Partial pressure] 117 mm[Hg] High [facility] Oxyhemoglobin (BldA) [Mass fraction] 97.3 % 94.0 - 98.0 % [facility] pH (Bld) 7.46 [pH] High 7.38 - 7.42 pH [facility] Potassium (BldA) [Moles/Vol] 4.3 mmol/L 3.5 - 5.3 mmol/L [facility] Sodium (BldA) [Moles/Vol] 130 mmol/L Low 136 - 145 mmol/L [facility] Specimen drawn from Nom Arterial Line [facility] Anion gap 4 (BldA) [Moles/Vol] 16 mmo/L Normal 10-25 [facility] Comment on above: Performed By: #### 9 3685-6 ####STEFANO TROY ([id number])[facility] ([facility])[address] [place] [address] APPARATUS HIGH FLOW CANNULA Normal [facility] Comment on above: Performed By: #### 9 3685-6 ####STEFANO TROY ([id number])[facility] ([facility])[address] [place] [address] Base excess Calc (Bld) [Moles/Vol] -4.2000 mmol/L Low -2.0-3.0 [facility] Comment on above: Performed By: #### 9 3685-6 ####STEFANO TROY ([id number])[facility] ([facility])[address] [place] [address] Calcium.ionized (BldA) [Moles/Vol] 1.17 mmol/L Normal 1.10-1.33 [facility] Comment on above: Performed By: #### 9 3685-6 ####STEFANO TROY ([id number])[facility] ([facility])[address] [place] [address] Chloride (BldA) [Moles/Vol] 100 mmol/L Normal 98-107 [facility] Comment on above: Performed By: #### 9 3685-6 ####STEFANO TROY ([id number])[facility] ([facility])[address] [place] [address] CO2 (Bld) [Partial pressure] 26 mm Hg Low 38-42 [facility] Comment on above: Performed By: #### 9 3685-6 ####STEFANO TROY ([id number])[facility] ([facility])[address] [place] [address] FLOW 60.0 LPM Normal [facility] Comment on above: Performed By: #### 9 3685-6 ####STEFANO TROY ([id number])[facility] ([facility])[address] [place] [address] Glucose [Mass/Vol] 213 mg/dL High 74-99 [facility] Comment on above: Performed By: #### 9 3685-6 ####STEFANO TROY ([id number])[facility] ([facility])[address] [place] [address] HCO3 (Bld) [Moles/Vol] 18.5 mmol/L Low 22.0-26.0 [facility] Comment on above: Performed By: #### 9 3685-6 ####STEFANO TROY ([id number])[facility] ([facility])[address] [place] [address] Hematocrit Est (Bld) [Volume fraction] 31.0 % Low 36.0-46.0 [facility] Comment on above: Performed By: #### 9 3685-6 ####STEFANO TROY ([id number])[facility] ([facility])[address] [place] [address] Hemoglobin (Bld) [Mass/Vol] 10.4 g/dL Low 12.0-16.0 [facility] Comment on above: Performed By: #### 9 3685-6 ####STEFANO TROY ([id number])[facility] ([facility])[address] [place] [id number] Inhaled oxygen concentration 90 % [facility] Comment on above: Performed By: #### 9 3685-6 ####STEFANO TROY ([id number])[facility] ([facility])[address] [place] [address] Lactate (BldA) [Moles/Vol] 2.4 mmol/L High 0.4-2.0 [facility] Comment on above: Performed By: #### 9 3685-6 ####STEFANO TROY ([id number])[facility] ([facility])[address] [place] [address] Oxygen (Bld) [Partial pressure] 117 mm Hg High 85-95 [facility] Comment on above: Performed By: #### 9 6245-6 ####STEFANO TROY ([id number])[facility] ([facility])[address] [place] [address] Oxyhemoglobin (BldA) [Mass fraction] 97.3 % Normal 94.0-98.0 [facility] Comment on above: Performed By: #### 9 8035-6 ####STEFANO TORY ([id number])[facility] ([facility])[address] [place] [id number] pH (Bld) 7.46 [pH] High 7.38-7.42 [facility] Comment on above: Performed By: #### 9 1485-6 ####STEFANO TROY ([id number])[facility] ([facility])[address] [place] [address] Potassium (BldA) [Moles/Vol] 4.3 mmol/L Normal 3.5-5.3 [facility] Comment on above: Performed By: #### 9 4385-6 ####STEFANO TROY ([id number])[facility] ([facility])[address] [place] [address] Sodium (BldA) [Moles/Vol] 130 mmol/L Low 136-145 [facility] Comment on above: Performed By: #### 9 3835-6 ####STEFANO TROY ([id number])[facility] ([facility])[address] [place] [address] Specimen drawn from Nom Arterial Line Normal [facility] Comment on above: Performed By: #### 9 1565-6 ####STEFANO TROY ([id number])[facility] ([facility])[address] [place] [address] Anion gap 4 (BldA) [Moles/Vol] 10 [facility] Base excess Calc (Bld) [Moles/Vol] -3.2000 mmol/L Low -2.0 - 3.0 mmol/L [facility] Calcium.ionized (BldA) [Moles/Vol] 1.13 mmol/L 1.10 - 1.33 mmol/L [facility] Chloride (BldA) [Moles/Vol] 105 mmol/L 98 - 107 mmol/L [facility] CO2 (Bld) [Partial pressure] 20 mm[Hg] Low [facility] Glucose [Mass/Vol] 214 mg/dL High 74 - 99 mg/dL [facility] HCO3 (Bld) [Moles/Vol] 17.5 mmol/L Low 22.0 - 26.0 mmol/L [facility] Hematocrit Est (Bld) [Volume fraction] 33 % Low 36.0 - 46.0 % [facility] Hemoglobin (Bld) [Mass/Vol] 11.1 g/dL Low 12.0 - 16.0 g/dL [facility] Inhaled oxygen concentration 80 % [facility] Interpretation and review of laboratory results Abnormal [facility] Lactate (BldA) [Moles/Vol] 2.4 mmol/L High 0.4 - 2.0 mmol/L [facility] Oxygen (Bld) [Partial pressure] 58 mm[Hg] Low [facility] Oxyhemoglobin (BldA) [Mass fraction] 91.6 % Low 94.0 - 98.0 % [facility] pH (Bld) 7.55 [pH] High 7.38 - 7.42 pH [facility] Potassium (BldA) [Moles/Vol] 4.2 mmol/L 3.5 - 5.3 mmol/L [facility] Sodium (BldA) [Moles/Vol] 128 mmol/L Low 136 - 145 mmol/L [facility] Anion gap 4 (BldA) [Moles/Vol] 10 mmo/L Normal 10-25 [facility] Comment on above: Performed By: #### 9 3685-6 ####STEFANO TROY ([id number])[facility] ([facility])[address] [place] [address] Base excess Calc (Bld) [Moles/Vol] -3.2000 mmol/L Low -2.0-3.0 [facility] Comment on above: Performed By: #### 9 3685-6 ####STEFANO TROY ([id number])[facility] ([facility])[address] [place] [address] Calcium.ionized (BldA) [Moles/Vol] 1.13 mmol/L Normal 1.10-1.33 [facility] Comment on above: Performed By: #### 9 3685-6 ####STEFANO TROY ([id number])[facility] ([facility])[address] [place] [address] Chloride (BldA) [Moles/Vol] 105 mmol/L Normal 98-107 [facility] Comment on above: Performed By: #### 9 3685-6 ####STEFANO TROY ([id number])[facility] ([facility])[address] [place] [address] CO2 (Bld) [Partial pressure] 20 mm Hg Low 38-42 [facility] Comment on above: Performed By: #### 9 3685-6 ####STEFANO TROY ([id number])[facility] ([facility])[address] [place], [place] [address] Glucose [Mass/Vol] 214 mg/dL High 74-99 [facility] Comment on above: Performed By: #### 9 3685-6 ####STEFANO TROY ([id number])[facility] ([facility])[address] [place], [place] [address] HCO3 (Bld) [Moles/Vol] 17.5 mmol/L Low 22.0-26.0 [facility] Comment on above: Performed By: #### 9 3685-6 ####STEFANO TROY ([id number])[facility] ([facility])[address] [place] [address] Hematocrit Est (Bld) [Volume fraction] 33.0 % Low 36.0-46.0 [facility] Comment on above: Performed By: #### 9 3685-6 ####STEFANO TROY ([id number])[facility] ([facility])[address] [place] [address] Hemoglobin (Bld) [Mass/Vol] 11.1 g/dL Low 12.0-16.0 [facility] Comment on above: Performed By: #### 9 3685-6 ####STEFANO TROY ([id number])[facility] ([facility])[address] [place] [address] Inhaled oxygen concentration 80 % Normal [facility] Comment on above: Performed By: #### 9 3685-6 ####STEFANO TROY ([id number])[facility] ([facility])[address] [place], [place] [id number] Lactate (BldA) [Moles/Vol] 2.4 mmol/L High 0.4-2.0 [facility] Comment on above: Performed By: #### 9 7675-6 ####STEFANO TROY ([id number])[facility] ([facility])[address] [place] [address] Oxygen (Bld) [Partial pressure] 58 mm Hg Low 85-95 [facility] Comment on above: Performed By: #### 9 3385-6 ####STEFANO TROY ([id number])[facility] ([facility])[address] [place], [place] [address] Oxyhemoglobin (BldA) [Mass fraction] 91.6 % Low 94.0-98.0 [facility] Comment on above: Performed By: #### 9 0505-6 ####STEFANO TROY ([id number])[facility] ([facility])[address] [place] [address] pH (Bld) 7.55 [pH] High 7.38-7.42 [facility] Comment on above: Performed By: #### 9 8915-6 ####STEFANO TROY ([id number])[facility] ([facility])[address] [place] [address] Potassium (BldA) [Moles/Vol] 4.2 mmol/L Normal 3.5-5.3 [facility] Comment on above: Performed By: #### 9 3685-6 ####STEFANO TROY ([id number])[facility] ([facility])[address] [place] [address] Sodium (BldA) [Moles/Vol] 128 mmol/L Low 136-145 [facility] Comment on above: Performed By: #### 9 3685-6 ####STEFANO TROY ([id number])[facility] ([facility])[address] [place] [address] Gas panelon 08-12-2024 Lactate (BldV) [Moles/Vol] 2.3 mmol/L High 0.4-2.0 [facility] Comment on above: Order Comment: Pleas e obtain from distal port of CVCBedside RN to obtain sample Performed By: #### 2 4339-4 ####STEFANO TROY ([id number])[facility] ([facility])[address] [place] [address] Performed By: #### 2 519-7 ####STEFANO TROY ([id number])[facility] ([facility])[address] [place] [address] Gas panel (BldV)on 4 Anion gap 4 (BldV) [Moles/Vol] 11 mmol/L 10.0 - 25.0 mmol/L [facility] Base excess Calc (BldV) [Moles/Vol] -4.3000 mmol/L Low -2.0 - 3.0 mmol/L [facility] Calcium.ionized (BldV) [Moles/Vol] 1.11 mmol/L 1.10 - 1.33 mmol/L [facility] Chloride (BldV) [Moles/Vol] 103 mmol/L 98 - 107 mmol/L [facility] CO2 (BldV) [Partial pressure] 33 mm[Hg] Low [facility] Flow 60 LPM [facility] Glucose [Mass/Vol] 189 mg/dL High 74 - 99 mg/dL [facility] HCO3 (Bld) [Moles/Vol] 20 mmol/L Low 22.0 - 26.0 mmol/L [facility] Hematocrit Est (Bld) [Volume fraction] 31 % Low 36.0 - 46.0 % [facility] Hemoglobin (Bld) [Mass/Vol] 10.2 g/dL Low 12.0 - 16.0 g/dL [facility] Inhaled oxygen concentration 90 % [facility] Oxygen (BldV) [Partial pressure] 30 mm[Hg] Low [facility] Oxygen saturation in Venous blood 50 % 45 - 75 % [facility] Oxyhemoglobin (BldV) [Mass fraction] 49.5 % 45.0 - 75.0 % [facility] pH (BldV) 7.39 [pH] 7.33 - 7.43 pH [facility] Potassium (BldV) [Moles/Vol] 4 mmol/L 3.5 - 5.3 mmol/L [facility] Sodium (BldV) [Moles/Vol] 130 mmol/L Low 136 - 145 mmol/L [facility] Anion gap 4 (BldV) [Moles/Vol] 11.0 mmol/L Normal 10.0-25.0 [facility] Comment on above: Order Comment: Pleas e obtain from distal port of CVCBedside RN to obtain sample Performed By: #### 2 4339-4 ####STEFANO TROY ([id number])[facility] ([facility])[address] [place] [address] Base excess Calc (BldV) [Moles/Vol] -4.3000 mmol/L Low -2.0-3.0 [facility] Comment on above: Order Comment: Pleas e obtain from distal port of CVCBedside RN to obtain sample Performed By: #### 2 4339-4 ####STEFANO TROY ([id number])[facility] ([facility])[address] [place] [address] Calcium.ionized (BldV) [Moles/Vol] 1.11 mmol/L Normal 1.10-1.33 [facility] Comment on above: Order Comment: Pleas e obtain from distal port of CVCBedside RN to obtain sample Performed By: #### 2 4339-4 ####STEFANO TROY ([id number])[facility] ([facility])[address] [place] [address] Chloride (BldV) [Moles/Vol] 103 mmol/L Normal 98-107 [facility] Comment on above: Order Comment: Pleas e obtain from distal port of CVCBedside RN to obtain sample Performed By: #### 2 4339-4 ####STEFANO TROY ([id number])[facility] ([facility])[address] [place] [id number] CO2 (BldV) [Partial pressure] 33 mm Hg Low 41-51 [facility] Comment on above: Order Comment: Pleas e obtain from distal port of CVCBedside RN to obtain sample Performed By: #### 2 4339-4 ####STEFANO TROY ([id number])[facility] ([facility])[address] [place] [address] FLOW 60.0 LPM Normal [facility] Comment on above: Order Comment: Pleas e obtain from distal port of CVCBedside RN to obtain sample Performed By: #### 2 4339-4 ####STEFANO TROY ([id number])[facility] ([facility])[address] [place] [address] Glucose [Mass/Vol] 189 mg/dL High 74-99 [facility] Comment on above: Order Comment: Pleas e obtain from distal port of CVCBedside RN to obtain sample Performed By: #### 2 4339-4 ####STEFANO TROY ([id number])[facility] ([facility])[address] [place] [address] HCO3 (Bld) [Moles/Vol] 20.0 mmol/L Low 22.0-26.0 [facility] Comment on above: Order Comment: Pleas e obtain from distal port of CVCBedside RN to obtain sample Performed By: #### 2 4339-4 ####STEFANO TROY ([id number])[facility] ([facility])[address] [place] [id number] Hematocrit Est (Bld) [Volume fraction] 31.0 % Low 36.0-46.0 [facility] Comment on above: Order Comment: Pleas e obtain from distal port of CVCBedside RN to obtain sample Performed By: #### 2 4339-4 ####STEFANO TROY ([id number])[facility] ([facility])[address] [place] [address] Hemoglobin (Bld) [Mass/Vol] 10.2 g/dL Low 12.0-16.0 [facility] Comment on above: Order Comment: Pleas e obtain from distal port of CVCBedside RN to obtain sample Performed By: #### 2 4339-4 ####STEFANO TROY ([id number])[facility] ([facility])[address] [place] [address] Inhaled oxygen concentration 90 % Normal [facility] Comment on above: Order Comment: Pleas e obtain from distal port of CVCBedside RN to obtain sample Performed By: #### 2 4339-4 ####STEFANO TROY ([id number])[facility] ([facility])[address] [place] [address] Oxygen (BldV) [Partial pressure] 30 mm Hg Low 35-45 [facility] Comment on above: Order Comment: Pleas e obtain from distal port of CVCBedside RN to obtain sample Performed By: #### 2 4339-4 ####STEFANO TROY ([id number])[facility] ([facility])[address] [place] [address] Oxygen saturation in Venous blood 50 % Normal 45-75 [facility] Comment on above: Order Comment: Pleas e obtain from distal port of CVCBedside RN to obtain sample Performed By: #### 2 4339-4 ####STEFANO TROY ([id number])[facility] ([facility])[address] [place] [address] Oxyhemoglobin (BldV) [Mass fraction] 49.5 % Normal 45.0-75.0 [facility] Comment on above: Order Comment: Pleas e obtain from distal port of CVCBedside RN to obtain sample Performed By: #### 2 4339-4 ####STEFANO TROY ([id number])[facility] ([facility])[address] [place] [address] pH (BldV) 7.39 [pH] Normal 7.33-7.43 [facility] Comment on above: Order Comment: Pleas e obtain from distal port of CVCBedside RN to obtain sample Performed By: #### 2 4339-4 ####STEFANO TROY ([id number])[facility] ([facility])[address] [place], [place] [address] Potassium (BldV) [Moles/Vol] 4.0 mmol/L Normal 3.5-5.3 [facility] Comment on above: Order Comment: Pleas e obtain from distal port of CVCBedside RN to obtain sample Performed By: #### 2 4339-4 ####STEFANO TROY ([id number])[facility] ([facility])[address] [place] [address] Sodium (BldV) [Moles/Vol] 130 mmol/L Low 136-145 [facility] Comment on above: Order Comment: Pleas e obtain from distal port of CVCBedside RN to obtain sample Performed By: #### 2 4339-4 ####STEFANO TROY ([id number])[facility] ([facility])[address] [place], [place] [address] Glucose Test strip manual (B ld) [Mass/Vol]on 08-12-2024 Glucose [Mass/Vol] 151 mg/dL High 74 - 99 mg/dL [facility] Interpretation and review of laboratory results Abnormal [facility] Glucose [Mass/Vol] 151 mg/dL High 74-99 [facility] Comment on above: Performed By: #### 2 341-6 ####STEFANO TROY ([id number])[facility] ([facility])[address] [place] [address] Glucose [Mass/Vol] 193 mg/dL High 74 - 99 mg/dL [facility] Interpretation and review of laboratory results Abnormal [facility] Glucose [Mass/Vol] 193 mg/dL High 74-99 [facility] Comment on above: Performed By: #### 2 341-6 ####STEFANO TROY ([id number])[facility] ([facility])[address] [place] [address] Glucose [Mass/Vol] 178 mg/dL High 74 - 99 mg/dL [facility] Interpretation and review of laboratory results Abnormal [facility] Glucose [Mass/Vol] 178 mg/dL High 74-99 [facility] Comment on above: Performed By: #### 2 341-6 ####STEFANO TROY ([id number])[facility] ([facility])[address] [place] [address] Glucose [Mass/Vol] 130 mg/dL High 74 - 99 mg/dL [facility] Interpretation and review of laboratory results Abnormal [facility] Glucose [Mass/Vol] 130 mg/dL High 74-99 [facility] Comment on above: Performed By: #### 2 341-6 ####STEFANO TROY ([id number])[facility] ([facility])[address] [place], [place] [address] Hemoglobin and Hematocrit pa basil (Bld)on 08-12-2024 Hematocrit (Bld) [Volume fraction] 30.1 % Low 36.0 - 46.0 % [facility] Hemoglobin (Bld) [Mass/Vol] 10.3 g/dL Low 12.0 - 16.0 g/dL [facility] Interpretation and review of laboratory results Abnormal [facility] Hematocrit (Bld) [Volume fraction] 30.1 % Low 36.0-46.0 [facility] Comment on above: Performed By: #### 2 4360-0 ####STEFANO TROY ([id number])[facility] ([facility])[address] [place] [address] Hemoglobin (Bld) [Mass/Vol] 10.3 g/dL Low 12.0-16.0 [facility] Comment on above: Performed By: #### 2 4360-0 ####STEFANO TROY ([id number])[facility] ([facility])[address] [place] [place] [id number] Laboratory - Chemistry and C hemistry - challengeon 08-12-2024 Lactate (BldV) [Moles/Vol] 2.3 mmol/L High 0.4 - 2.0 mmol/L [facility] Legionella sp Agon Legionella sp Ag Ql (U) Negative Normal Negative U [facility] Comment on above: Performed By: #### 3 2781-7 ####ZABRINA Villalba ([id number])[facility] ([facility])[address] [place] [address] Magnesiumon 08-12-2024 Magnesium [Mass/Vol] 2.9 mg/dL High 1.60 - 2.40 mg/dL [facility] Magnesium [Mass/Vol] 2.90 mg/dL High 1.60-2.40 [facility] Comment on above: Performed By: #### 1 9123-9 ####STEFANO TROY ([id number])[facility] ([facility])[address] [place] [address] Magnesium [Mass/Vol] 1.87 mg/dL 1.60 - 2.40 mg/dL [facility] Magnesium [Mass/Vol] 1.87 mg/dL Normal 1.60-2.40 [facility] Comment on above: Performed By: #### 1 9123-9 ####STEFANO TROY ([id number])[facility] ([facility])[address] [place] [address] Magnesium [Mass/Vol]on 08-12 Interpretation and review of laboratory results Normal [facility] No Panel Informationon 08-12 [facility] Interpretation and review of laboratory results Abnormal [facility] Interpretation and review of laboratory results Abnormal [facility] Blood Expiration Date 08/13/2024 11:59:00 PM EST [facility] PRODUCT BLOOD TYPE [address] [facility] PRODUCT CODE [id number] [facility] Unit ABO O [facility] Unit RH Negative [facility] UNIT VOLUME 350 [facility] XM INTEP COMP [facility] B[facility] TYPE [address] [facility] PRODUCT CODE [id number] [facility] Unit ABO O [facility] Unit RH Positive [facility] PT and aPTT panel Coag (PPP) on 08-12-2024 aPTT Coag (PPP) [Time] 31 s Un [facility] INR Coag (PPP) [Relative time] 1.5 {INR} High 0.9 - 1.1 [facility] Interpretation and review of laboratory results Abnormal [facility] PT Coag (PPP) [Time] 17 s High [facility] aPTT Coag (PPP) [Time] 31 s Normal 27-38 Un [facility] Comment on above: Order Comment: The A PTT is no longer used for monitoring Unfractionated Heparin Therapy. For monitoring Heparin Therapy, use the Heparin Assay. Performed By: #### 3 4529-8 ####STEFANO TROY ([id number])[facility] ([facility])[address] [place] [address] INR Coag (PPP) [Relative time] 1.5 High 0.9-1.1 [facility] Comment on above: Order Comment: The A PTT is no longer used for monitoring Unfractionated Heparin Therapy. For monitoring Heparin Therapy, use the Heparin Assay. Performed By: #### 3 4529-8 ####STEFANO TROY ([id number])[facility] ([facility])[address] [place], [place] [address] PT Coag (PPP) [Time] 17.0 s High 9.8-12.8 [facility] Comment on above: Order Comment: The A PTT is no longer used for monitoring Unfractionated Heparin Therapy. For monitoring Heparin Therapy, use the Heparin Assay. Performed By: #### 3 4529-8 ####STEFANO SYDNI ([id number])[facility] ([facility])[address] [place] [address] Prepare Cryoprecipitated AHF (Pooled Units): 2 Poolson 08-12-2024 Blood Expiration Date 08/10/2024 10:12:00 PM EST [facility] Blood Expiration Date 08/10/2024 10:26:00 PM EST [facility] Unit Number [id number] [facility] Unit Number [id number] [facility] UNIT VOLUME 82 [facility] UNIT VOLUME 103 [facility] Prepare RBC: 1 Unitson 08-12 Blood Expiration Date 08/28/2024 11:59:0 0 PM EST [facility] Dispense Status RE [facility] PRODUCT BLOOD TYPE [address] [facility] PRODUCT CODE [id number] [facility] Unit ABO O [facility] Unit Number [id number] [facility] Unit RH Positive [facility] UNIT VOLUME 350 [facility] XM INTEP COMP [facility] Prepare RBC: 2 Unitson 08-12 Dispense Status RE [facility] Dispense Status TR [facility] Unit Number [id number] [facility] Unit Number [id number] [facility] Renal function 2000 panelon 08-12-2024 Albumin BCP dye [Mass/Vol] 3.4 g/dL 3.4 - 5.0 g/dL [facility] Anion gap [Moles/Vol] 13 mmol/L 10 - 2 0 mmol/L [facility] Calcium [Mass/Vol] 7.9 mg/dL Low 8.6 - 10. 3 mg/dL [facility] Chloride [Moles/Vol] 102 mmol/L 98 - 10 7 mmol/L [facility] CO2 [Moles/Vol] 21 mmol/L 21 - 32 mmol/L [facility] Creatinine [Mass/Vol] 0.92 mg/dL 0.50 - 1.05 mg/dL [facility] GFR/1.73 sq M.predicted among non-blacks MDRD (S/P/Bld) [Vol rate/Area] 65 mL/min/{1.73_m2} - PINF [facility] Glucose [Mass/Vol] 180 mg/dL High 74 - 99 mg/dL [facility] Phosphate [Mass/Vol] 2.9 mg/dL 2.5 - 4 .9 mg/dL [facility] Potassium [Moles/Vol] 4 mmol/L 3.5 - 5.3 mmol/L [facility] Sodium [Moles/Vol] 132 mmol/L Low 136 - 145 mmol/L [facility] Urea nitrogen [Mass/Vol] 34 mg/dL High 6 - 23 mg/d L [facility] Albumin BCP dye [Mass/Vol] 3.4 g/dL Normal 3.4-5.0 [facility] Comment on above: Performed By: #### 2 4362-6 ####STEFANO TROY ([id number])[facility] ([facility])[address] [place] [address] Anion gap [Moles/Vol] 13 mmol/L Normal 10-20 [facility] Comment on above: Performed By: #### 2 4362-6 ####STEFANO TROY ([id number])[facility] ([facility])[address] [place] [address] Calcium [Mass/Vol] 7.9 mg/dL Low 8.6-10.3 [facility] Comment on above: Performed By: #### 2 4362-6 ####STEFANO TROY ([id number])[facility] ([facility])[address] [place] [address] Chloride [Moles/Vol] 102 mmol/L Normal 98-107 [facility] Comment on above: Performed By: #### 2 4362-6 ####STEFANO TROY ([id number])[facility] ([facility])[address] [place] [address] CO2 [Moles/Vol] 21 mmol/L Normal 21-32 [facility] Comment on above: Performed By: #### 2 4362-6 ####STEFANO TROY ([id number])[facility] ([facility])[address] [place] [address] Creatinine [Mass/Vol] 0.92 mg/dL Normal 0.50-1.05 [facility] Comment on above: Performed By: #### 2 4362-6 ####STEFANO TROY ([id number])[facility] ([facility])[address] [place] [address] Glomerular filtration rate/1.73 sq M.predicted 65 mL/min/1.73m*2 Normal >60 [facility] Comment on above: Result Comment: Calc ulations of estimated GFR are performed using the 2020 CKD-EPI Study Refit equation without the race variable for the IDMS-Traceable creatinine methods.https://jasn.asnjournals.org/content/early/ /ASN.5688724429 Performed By: #### 2 4362-6 ####STEFANO TROY ([id number])[facility] ([facility])[address] [place] [address] Glucose [Mass/Vol] 180 mg/dL High 74-99 [facility] Comment on above: Performed By: #### 2 4362-6 ####STEFANO TROY ([id number])[facility] ([facility])[address] [place] [address] Phosphate [Mass/Vol] 2.9 mg/dL Normal 2.5-4.9 [facility] Comment on above: Result Comment: The performance characteristics of phosphorus testing in heparinized plasma have been validated by the individual laboratory site where testing is performed. Testing on heparinized plasma is not approved by the FDA; however, such approval is not necessary. Performed By: #### 2 4362-6 ####STEFANO TROY ([id number])[facility] ([facility])[address] [place] [address] Potassium [Moles/Vol] 4.0 mmol/L Normal 3.5-5.3 [facility] Comment on above: Performed By: #### 2 4362-6 ####STEFANO TROY ([id number])[facility] ([facility])[address] [place] [address] Sodium [Moles/Vol] 132 mmol/L Low 136-145 [facility] Comment on above: Performed By: #### 2 4362-6 ####STEFANO TROY ([id number])[facility] ([facility])[address] [place] [address] Urea nitrogen [Mass/Vol] 34 mg/dL High 6-23 [facility] Comment on above: Performed By: #### 2 4362-6 ####STEFANO TROY ([id number])[facility] ([facility])[address] [place] [address] Albumin BCP dye [Mass/Vol] 3.4 g/dL 3.4 - 5.0 g/dL [facility] Anion gap [Moles/Vol] 10 mmol/L 10 - 2 0 mmol/L [facility] Calcium [Mass/Vol] 8.2 mg/dL Low 8.6 - 10. 3 mg/dL [facility] Chloride [Moles/Vol] 105 mmol/L 98 - 10 7 mmol/L [facility] CO2 [Moles/Vol] 25 mmol/L 21 - 32 mmol/L [facility] Creatinine [Mass/Vol] 0.64 mg/dL 0.50 - 1.05 mg/dL [facility] eGFR - PINF [facility] Glucose [Mass/Vol] 127 mg/dL High 74 - 99 mg/dL [facility] Interpretation and review of laboratory results Abnormal [facility] Phosphate [Mass/Vol] 2 mg/dL Low 2.5 - 4 .9 mg/dL [facility] Potassium [Moles/Vol] 4.2 mmol/L 3.5 - 5.3 mmol/L [facility] Sodium [Moles/Vol] 136 mmol/L 136 - 145 mmol/L [facility] Urea nitrogen [Mass/Vol] 29 mg/dL High 6 - 23 mg/d L [facility] Albumin BCP dye [Mass/Vol] 3.4 g/dL Normal 3.4-5.0 [facility] Comment on above: Performed By: #### 2 4362-6 ####STEFANO TROY ([id number])[facility] ([facility])[address] [place] [address] Anion gap [Moles/Vol] 10 mmol/L Normal 10-20 [facility] Comment on above: Performed By: #### 2 436-6 ####STEFANO TROY ([id number])[facility] ([facility])[address] [place], [place] [address] Calcium [Mass/Vol] 8.2 mg/dL Low 8.6-10.3 [facility] Comment on above: Performed By: #### 2 436-6 ####STEFANO TROY ([id number])[facility] ([facility])[address] [place] [address] Chloride [Moles/Vol] 105 mmol/L Normal 98-107 [facility] Comment on above: Performed By: #### 2 4362-6 ####STEFANO TROY ([id number])[facility] ([facility])[address] [place] [address] CO2 [Moles/Vol] 25 mmol/L Normal 21-32 [facility] Comment on above: Performed By: #### 2 4362-6 ####STEFANO TROY ([id number])[facility] ([facility])[address] [place] [address] Creatinine [Mass/Vol] 0.64 mg/dL Normal 0.50-1.05 [facility] Comment on above: Performed By: #### 2 4362-6 ####STEFANO TROY ([id number])[facility] ([facility])[address] [place] [address] GFR/1.73 sq M.predicted MDRD (S/P/Bld) [Vol rate/Area] mL/min/{1.73_m2} Normal >60 [facility] Comment on above: Result Comment: Calc ulations of estimated GFR are performed using the 2020 CKD-EPI Study Refit equation without the race variable for the IDMS-Traceable creatinine methods.https://jasn.asnjournals.org/content/ /ASN.8199161188 Performed By: #### 2 4362-6 ####STEFANO TROY ([id number])[facility] ([facility])[address] [place] [address] Glucose [Mass/Vol] 127 mg/dL High 74-99 [facility] Comment on above: Performed By: #### 2 4362-6 ####STEFANO TROY ([id number])[facility] ([facility])[address] [place] [address] Phosphate [Mass/Vol] 2.0 mg/dL Low 2.5-4.9 [facility] Comment on above: Result Comment: The performance characteristics of phosphorus testing in heparinized plasma have been validated by the individual laboratory site where testing is performed. Testing on heparinized plasma is not approved by the FDA; however, such approval is not necessary. Performed By: #### 2 4362-6 ####STEFANO TROY ([id number])[facility] ([facility])[address] [place] [address] Potassium [Moles/Vol] 4.2 mmol/L Normal 3.5-5.3 [facility] Comment on above: Performed By: #### 2 4362-6 ####STEFANO TROY ([id number])[facility] ([facility])[address] [place] [address] Sodium [Moles/Vol] 136 mmol/L Normal 136-145 [facility] Comment on above: Performed By: #### 2 4362-6 ####STEFANO TROY ([id number])[facility] ([facility])[address] [place] [address] Urea nitrogen [Mass/Vol] 29 mg/dL High 6-23 [facility] Comment on above: Performed By: #### 2 4362-6 ####STEFANO TROY ([id number])[facility] ([facility])[address] [place] [address] Streptococcus pneumoniae Ago n 08-12-2024 S. pneumoniae Ag Ql (U) Negative Normal Negative U [facility] Comment on above: Performed By: #### 2 4027-5 ####ZABRINA Villalba ([id number])[facility] ([facility])[address] [place] [address] TRANSTHORACIC ECHO (TTE) [place] ITEDon 08-12-2024 TRANSTHORACIC ECHO (TTE) LIMITED Normal [facility] US Heart Transthoracicon LV A4C EF 57.7 [facility] Work Phone: LV EF 49 % [facility] Work Phone: Tricuspid annular plane systolic excursion 2.1 cm [facility] Work Phone: SYNGO [facility] Work Phone: [facility] Work Phone: Urinalysis complete panel (U )on 08-12-2024 Appearance (U) Turbid Abnormal Clear [facility] Bilirubin (U) [Mass/Vol] Negative NEGATIVE [facility] Color (U) Light-Yellow Light-Yellow , Yellow, Dark-Yellow [facility] Glucose Auto test strip (U) [Mass/Vol] Normal Normal mg/dL [facility] Interpretation and review of laboratory results Abnormal [facility] Ketones (U) [Mass/Vol] Negative NEGAT ELLEN mg/dL [facility] Leukocyte esterase Auto test strip Ql (U) Negative NEGATIVE [facility] Nitrite Auto test strip Ql (U) Negative NEGATIVE [facility] pH (U) 5 [pH] 5.0, 5.5, 6.0, 6.5, 7.0, 7.5, 8.0 [facility] Protein (U) [Mass/Vol] 20 (TRACE) NEGAT ELLEN, 10 (TRACE), 20 (TRACE) mg/dL [facility] RBC (U) [#/Vol] 0.2 (2+) Abnormal NEGATIVE [facility] Specific gravity (U) [Rel density] 1.021 1.005 - 1.035 [facility] Urobilinogen (U) [Mass/Vol] Normal Normal mg/dL [facility] Appearance (U) Turbid Normal Clear [facility] Comment on above: Performed By: #### 2 4356-8 ####STEFANO TROY ([id number])[facility] ([facility])[address] [place] [address] Bilirubin (U) [Mass/Vol] Negative Normal NEGATIVE [facility] Comment on above: Performed By: #### 2 4356-8 ####STEFANO TROY ([id number])[facility] ([facility])[address] [place] [address] Color (U) Light-Yellow Normal Light-Yellow , Yellow, Dark-Yellow [facility] Comment on above: Performed By: #### 2 4356-8 ####STEFANO TROY ([id number])[facility] ([facility])[address] [place] [address] Glucose Auto test strip (U) [Mass/Vol] Normal Normal Normal [facility] Comment on above: Performed By: #### 2 4356-8 ####STEFANO TROY ([id number])[facility] ([facility])[address] [place] [address] Ketones (U) [Mass/Vol] Negative Normal NEGATIVE Un [facility] Comment on above: Performed By: #### 2 4356-8 ####STEFANO TROY ([id number])[facility] ([facility])[address] [place], [place] [address] Leukocyte esterase Auto test strip Ql (U) Negative Normal NEGATIVE [facility] Comment on above: Performed By: #### 2 4356-8 ####STEFANO TROY ([id number])[facility] ([facility])[address] [place] [address] Nitrite Auto test strip Ql (U) Negative Normal NEGATIVE [facility] Comment on above: Performed By: #### 2 4356-8 ####STEFANO TROY ([id number])[facility] ([facility])[address] [place] [address] pH (U) 5.0 [pH] Normal 5.0, 5.5, 6.0, 6.5, 7.0, 7.5, 8.0 [facility] Comment on above: Performed By: #### 2 4356-8 ####STEFANO TROY ([id number])[facility] ([facility])[address] [place] [address] Protein (U) [Mass/Vol] 20 (TRACE) Normal NEGAT ELLEN, 10 (TRACE), 20 (TRACE) [facility] Comment on above: Performed By: #### 2 4356-8 ####STEFANO TROY ([id number])[facility] ([facility])[address] [place] [address] RBC (U) [#/Vol] 0.2 (2+) Abnormal NEGATIVE [facility] Comment on above: Performed By: #### 2 4356-8 ####STEFANO TROY ([id number])[facility] ([facility])[address] [place] [address] Specific gravity (U) [Rel density] 1.021 Normal 1.005-1.035 [facility] Comment on above: Performed By: #### 2 4356-8 ####STEFANO TROY ([id number])[facility] ([facility])[address] [place] [address] Urobilinogen (U) [Mass/Vol] Normal Normal Normal [facility] Comment on above: Performed By: #### 2 4356-8 ####STEFANO TROY ([id number])[facility] ([facility])[address] [place], [place] [id number] Urinalysis microscopic panel Auto Ql (U)on 08-12-2024 Mucus Auto (Urine sed) [#/Area] FEW Reference range not established. /LPF [facility] RBC Auto (Urine sed) [#/Area] 1-2 NONE, 1-2, 3-5 /HPF [facility] WBC Auto (Urine sed) [#/Area] 1-5 1-5, NONE /HPF [facility] Mucus Auto (Urine sed) [#/Area] FEW Normal Reference range not established. [facility] Comment on above: Performed By: #### 5 3315-8 ####STEFANO TROY ([id number])[facility] ([facility])[address] [place] [address] RBC Auto (Urine sed) [#/Area] 1-2 Normal NONE, 1-2, 3-5 [facility] Comment on above: Performed By: #### 5 3315-8 ####STEFANO TROY ([id number])[facility] ([facility])[address] [place] [address] WBC Auto (Urine sed) [#/Area] 1-5 Normal 1-5, NONE [facility] Comment on above: Performed By: #### 5 5775-8 ####STEFANO TROY ([id number])[facility] ([facility])[address] [place], [place] [id number] XR CHEST 1 VIEWon 08-12-2024 XR CHEST 1 VIEW Normal [facility] XR CHEST 1 VIEW Normal [facility] XR Chest Single viewon 08-12 [facility] Work Phone: Radiology Study observation (narrative) [facility] Work Phone: [facility] Work Phone: [facility] Work Phone: Radiology Study observation (narrative) [facility] Work Phone: XR Chest Single viewOrdered By: Lenard Munguia on 08-12-2024 [facility] Work Phone: CBC panel Auto (Bld)on 08-11 Erythrocyte distribution width (RBC) [Ratio] 13.4 % Normal 11.5-14.5 [facility] Comment on above: Performed By: #### 5 8410-2 ####STEFANO TROY ([id number])[facility] ([facility])[address] [place] [address] Hematocrit (Bld) [Volume fraction] 23.6 % Low 36.0-46.0 [facility] Comment on above: Performed By: #### 5 8410-2 ####STEFANO TROY ([id number])[facility] ([facility])[address] [place] [address] Hemoglobin (Bld) [Mass/Vol] 7.6 g/dL Low 12.0-16.0 [facility] Comment on above: Performed By: #### 5 8410-2 ####STEFANO TROY ([id number])[facility] ([facility])[address] [place] [address] MCH (RBC) [Entitic mass] 29.9 pg Normal 26.0-34.0 [facility] Comment on above: Performed By: #### 5 8410-2 ####STEFANO TROY ([id number])[facility] ([facility])[address] [place] [address] MCHC (RBC) [Mass/Vol] 32.2 g/dL Normal 32.0-36.0 [facility] Comment on above: Performed By: #### 5 8410-2 ####STEFANO TROY ([id number])[facility] ([facility])[address] [place] [id number] MCV (RBC) [Entitic vol] 93 fL Normal 80-100 [facility] Comment on above: Performed By: #### 5 8410-2 ####STEFANO TROY ([id number])[facility] ([facility])[address] [place] [address] Nucleated RBC/100 WBC (Bld) [Ratio] 0.0 /100 WBCs Normal 0.0-0.0 [facility] Comment on above: Performed By: #### 5 8410-2 ####STEFANO TROY ([id number])[facility] ([facility])[address] [place] [address] Platelets (Bld) [#/Vol] 230 x10*3/uL Normal 150-450 [facility] Comment on above: Performed By: #### 5 8410-2 ####STEFANO TROY ([id number])[facility] ([facility])[address] [place] [address] RBC (Bld) [#/Vol] 2.54 x10*6/uL Low 4.00-5.20 [facility] Comment on above: Performed By: #### 5 8410-2 ####STEFANO TROY ([id number])[facility] ([facility])[address] [place] [address] WBC (Bld) [#/Vol] 9.5 x10*3/uL Normal 4.4-11.3 [facility] Comment on above: Performed By: #### 5 8410-2 ####STEFANO TROY ([id number])[facility] ([facility])[address] [place], [place] [address] Coagulation factor VIII acti vity actual/Normalon 08-11-2024 Coagulation factor VIII activity actual/normal Coag (PPP) [Relative time] 108 % Normal 55-180 [facility] Comment on above: Performed By: #### 3 209-4 ####ZABRINA Villalba ([id number])[facility] ([facility])[address] [place] [address] Gas panel (BldV)on 4 Anion gap 4 (BldV) [Moles/Vol] 10 mmol/L 10.0 - 25.0 mmol/L [facility] Base excess Calc (BldV) [Moles/Vol] -0.4000 mmol/L -2.0 - 3.0 mmol/L [facility] Calcium.ionized (BldV) [Moles/Vol] 1.21 mmol/L 1.10 - 1.33 mmol/L [facility] Chloride (BldV) [Moles/Vol] 104 mmol/L 98 - 107 mmol/L [facility] CO2 (BldV) [Partial pressure] 38 mm[Hg] Low [facility] Glucose [Mass/Vol] 172 mg/dL High 74 - 99 mg/dL [facility] HCO3 (Bld) [Moles/Vol] 24.1 mmol/L 22.0 - 26.0 mmol/L [facility] Hematocrit Est (Bld) [Volume fraction] 29 % Low 36.0 - 46.0 % [facility] Hemoglobin (Bld) [Mass/Vol] 9.6 g/dL Low 12.0 - 16.0 g/dL [facility] Inhaled oxygen concentration 28 % [facility] Interpretation and review of laboratory results Abnormal [facility] Lactate (BldV) [Moles/Vol] 2.7 mmol/L High 0.4 - 2.0 mmol/L [facility] Oxygen (BldV) [Partial pressure] 36 mm[Hg] [facility] Oxygen saturation in Venous blood 58 % 45 - 75 % [facility] Oxyhemoglobin (BldV) [Mass fraction] 57.2 % 45.0 - 75.0 % [facility] pH (BldV) 7.41 [pH] 7.33 - 7.43 pH [facility] Potassium (BldV) [Moles/Vol] 4.2 mmol/L 3.5 - 5.3 mmol/L [facility] Sodium (BldV) [Moles/Vol] 134 mmol/L Low 136 - 145 mmol/L [facility] Anion gap 4 (BldV) [Moles/Vol] 10.0 mmol/L Normal 10.0-25.0 [facility] Comment on above: Order Comment: Place draw from CVP port Performed By: #### 2 3309-4 ####STEFANO TROY ([id number])[facility] ([facility])[address] [place] [address] Base excess Calc (BldV) [Moles/Vol] -0.4000 mmol/L Normal -2.0-3.0 [facility] Comment on above: Order Comment: Place draw from CVP port Performed By: #### 2 6537-4 ####STEFANO TROY ([id number])[facility] ([facility])[address] [place] [address] Calcium.ionized (BldV) [Moles/Vol] 1.21 mmol/L Normal 1.10-1.33 [facility] Comment on above: Order Comment: Place draw from CVP port Performed By: #### 2 4339-4 ####STEFANO TROY ([id number])[facility] ([facility])[address] [place] [address] Chloride (BldV) [Moles/Vol] 104 mmol/L Normal 98-107 [facility] Comment on above: Order Comment: Place draw from CVP port Performed By: #### 2 4339-4 ####STEFANO TROY ([id number])[facility] ([facility])[address] [place] [address] CO2 (BldV) [Partial pressure] 38 mm Hg Low 41-51 [facility] Comment on above: Order Comment: Place draw from CVP port Performed By: #### 2 4339-4 ####STEFANO TROY ([id number])[facility] ([facility])[address] [place] [address] Glucose [Mass/Vol] 172 mg/dL High 74-99 [facility] Comment on above: Order Comment: Place draw from CVP port Performed By: #### 2 4339-4 ####STEFANO TROY ([id number])[facility] ([facility])[address] [place] [address] HCO3 (Bld) [Moles/Vol] 24.1 mmol/L Normal 22.0-26.0 [facility] Comment on above: Order Comment: Place draw from CVP port Performed By: #### 2 4339-4 ####STEFANO TROY ([id number])[facility] ([facility])[address] [place] [address] Hematocrit Est (Bld) [Volume fraction] 29.0 % Low 36.0-46.0 [facility] Comment on above: Order Comment: Place draw from CVP port Performed By: #### 2 4339-4 ####STEFANO TROY ([id number])[facility] ([facility])[address] [place] [address] Hemoglobin (Bld) [Mass/Vol] 9.6 g/dL Low 12.0-16.0 [facility] Comment on above: Order Comment: Place draw from CVP port Performed By: #### 2 4339-4 ####STEFANO TROY ([id number])[facility] ([facility])[address] [place] [address] Inhaled oxygen concentration 28 % Normal [facility] Comment on above: Order Comment: Place draw from CVP port Result Comment: 1L N C Performed By: #### 2 4339-4 ####STEFANO TROY ([id number])[facility] ([facility])[address] [place] [address] Lactate (BldV) [Moles/Vol] 2.7 mmol/L High 0.4-2.0 [facility] Comment on above: Order Comment: Place draw from CVP port Performed By: #### 2 4339-4 ####STEFANO TROY ([id number])[facility] ([facility])[address] [place] [address] Oxygen (BldV) [Partial pressure] 36 mm Hg Normal 35-45 [facility] Comment on above: Order Comment: Place draw from CVP port Performed By: #### 2 4339-4 ####STEFANO TROY ([id number])[facility] ([facility])[address] [place] [address] Oxygen saturation in Venous blood 58 % Normal 45-75 [facility] Comment on above: Order Comment: Place draw from CVP port Performed By: #### 2 4339-4 ####STEFANO TROY ([id number])[facility] ([facility])[address] [place] [address] Oxyhemoglobin (BldV) [Mass fraction] 57.2 % Normal 45.0-75.0 [facility] Comment on above: Order Comment: Place draw from CVP port Performed By: #### 2 4339-4 ####STEFANO TROY ([id number])[facility] ([facility])[address] [place] [address] pH (BldV) 7.41 [pH] Normal 7.33-7.43 [facility] Comment on above: Order Comment: Place draw from CVP port Performed By: #### 2 4339-4 ####STEFANO TROY ([id number])[facility] ([facility])[address] [place], [place] [address] Potassium (BldV) [Moles/Vol] 4.2 mmol/L Normal 3.5-5.3 [facility] Comment on above: Order Comment: Place draw from CVP port Performed By: #### 2 4339-4 ####STEFANO TROY ([id number])[facility] ([facility])[address] [place] [address] Sodium (BldV) [Moles/Vol] 134 mmol/L Low 136-145 [facility] Comment on above: Order Comment: Place draw from CVP port Performed By: #### 2 4339-4 ####STEFANO TROY ([id number])[facility] ([facility])[address] [place], [place] [address] Glucose Test strip manual (B ld) [Mass/Vol]on 08-11-2024 Glucose [Mass/Vol] 123 mg/dL High 74 - 99 mg/dL [facility] Interpretation and review of laboratory results Abnormal [facility] Glucose [Mass/Vol] 123 mg/dL High 74-99 [facility] Comment on above: Performed By: #### 2 341-6 ####STEFANO TROY ([id number])[facility] ([facility])[address] [place] [address] Glucose [Mass/Vol] 155 mg/dL High 74 - 99 mg/dL [facility] Interpretation and review of laboratory results Abnormal [facility] Glucose [Mass/Vol] 155 mg/dL High 74-99 [facility] Comment on above: Performed By: #### 2 341-6 ####STEFANO TROY ([id number])[facility] ([facility])[address] [place] [address] Glucose [Mass/Vol] 151 mg/dL High 74 - 99 mg/dL [facility] Interpretation and review of laboratory results Abnormal [facility] Glucose [Mass/Vol] 151 mg/dL High 74-99 [facility] Comment on above: Performed By: #### 2 341-6 ####STEFANO TROY ([id number])[facility] ([facility])[address] [place] [address] Glucose [Mass/Vol] 158 mg/dL High 74 - 99 mg/dL [facility] Interpretation and review of laboratory results Abnormal [facility] Glucose [Mass/Vol] 158 mg/dL High 74-99 [facility] Comment on above: Performed By: #### 2 341-6 ####STEFANO TROY ([id number])[facility] ([facility])[address] [place] [address] Magnesiumon 08-11-2024 Magnesium [Mass/Vol] 2.16 mg/dL Normal 1.60-2.40 [facility] Comment on above: Performed By: #### 1 9123-9 ####STEFANO TROY ([id number])[facility] ([facility])[address] [place] [address] Renal function 2000 panelon 08-11-2024 Anion gap [Moles/Vol] 12 mmol/L 10 - 2 0 mmol/L [facility] Albumin BCP dye [Mass/Vol] 3.6 g/dL Normal 3.4-5.0 [facility] Comment on above: Performed By: #### 2 4362-6 ####STEFANO TROY ([id number])[facility] ([facility])[address] [place] [address] Anion gap [Moles/Vol] 12 mmol/L Normal 10-20 [facility] Comment on above: Performed By: #### 2 4362-6 ####STEFANO TROY ([id number])[facility] ([facility])[address] [place] [address] Calcium [Mass/Vol] 7.7 mg/dL Low 8.6-10.3 [facility] Comment on above: Performed By: #### 2 4362-6 ####STEFANO TROY ([id number])[facility] ([facility])[address] [place] [address] Chloride [Moles/Vol] 107 mmol/L Normal 98-107 [facility] Comment on above: Performed By: #### 2 4362-6 ####STEFANO TROY (12782)[facility] ([facility])[address] [place] [address] CO2 [Moles/Vol] 22 mmol/L Normal 21-32 [facility] Comment on above: Performed By: #### 2 4362-6 ####STEFANO TROY ([id number])[facility] ([facility])[address] [place] [address] Creatinine [Mass/Vol] 0.76 mg/dL Normal 0.50-1.05 [facility] Comment on above: Performed By: #### 2 4362-6 ####STEFANO TROY (68293)[facility] ([facility])[address] [place] [address] Glomerular filtration rate/1.73 sq M.predicted 82 mL/min/1.73m*2 Normal >60 [facility] Comment on above: Result Comment: Calc ulations of estimated GFR are performed using the 2020 CKD-EPI Study Refit equation without the race variable for the IDMS-Traceable creatinine methods.https://jasn.asnjournals.org/content/ /ASN.2020504334 Performed By: #### 2 4362-6 ####STEFANO TROY ([id number])[facility] ([facility])[address] [place] [address] Glucose [Mass/Vol] 187 mg/dL High 74-99 [facility] Comment on above: Performed By: #### 2 4362-6 ####STEFANO TROY ([id number])[facility] ([facility])[address] [place] [address] Phosphate [Mass/Vol] 3.3 mg/dL Normal 2.5-4.9 [facility] Comment on above: Result Comment: The performance characteristics of phosphorus testing in heparinized plasma have been validated by the individual laboratory site where testing is performed. Testing on heparinized plasma is not approved by the FDA; however, such approval is not necessary. Performed By: #### 2 4362-6 ####STEFANO TROY ([id number])[facility] ([facility])[address] [place] [address] Potassium [Moles/Vol] 4.1 mmol/L Normal 3.5-5.3 [facility] Comment on above: Performed By: #### 2 4362-6 ####STEFANO TROY ([id number])[facility] ([facility])[address] [place] [address] Sodium [Moles/Vol] 137 mmol/L Normal 136-145 [facility] Comment on above: Performed By: #### 2 4362-6 ####STEFANO TROY ([id number])[facility] ([facility])[address] [place] [address] Urea nitrogen [Mass/Vol] 24 mg/dL High 6-23 [facility] Comment on above: Performed By: #### 2 4362-6 ####STEFANO TROY ([id number])[facility] ([facility])[address] [place] [address] XR Chest Single viewon 08-11 MM[facility]AL [facility] Work Phone: XR Chest Single viewOrdered By: Rob Hussein on 08-11-2024 [facility] Work Phone: ANESTHESIA INTRAOPERATIVE TE Tanner 08-10-2024 ANESTHESIA INTRAOPERATIVE ANASTASIA Normal [facility] Activated clotting timeon ACT Coag (Bld) [address] Comment on above: Result Comment: Targ et ACT range will vary based on the patient population, clinical status, and surgical intervention occurring. Performed By: #### 3 184-9 ####STEFANO TROY (62752)[facility] ([facility])[address] [place] [address] ACT Coag (Bld) [address] Comment on above: Result Comment: Targ et ACT range will vary based on the patient population, clinical status, and surgical intervention occurring. Performed By: #### 3 184-9 ####STEFANO TROY ([id number])[facility] ([facility])[address] [place] [address] ACT Coag (Bld) [address] Comment on above: Result Comment: Targ et ACT range will vary based on the patient population, clinical status, and surgical intervention occurring. Performed By: #### 3 184-9 ####STEFANO TROY ([id number])[facility] ([facility])[address] [place] [address] ACT Coag (Bld) [address] Comment on above: Result Comment: Targ et ACT range will vary based on the patient population, clinical status, and surgical intervention occurring. Performed By: #### 3 184-9 ####STEFANO TROY ([id number])[facility] ([facility])[address] [place] [address] ACT Coag (Bld) [address] Comment on above: Result Comment: Targ et ACT range will vary based on the patient population, clinical status, and surgical intervention occurring. Performed By: #### 3 184-9 ####STEFANO TROY ([id number])[facility] ([facility])[address] [place] [address] ACT Coag (Bld) [address] Comment on above: Result Comment: Targ et ACT range will vary based on the patient population, clinical status, and surgical intervention occurring. Performed By: #### 3 184-9 ####STEFANO TROY ([id number])[facility] ([facility])[address] [place] [address] ACT Coag (Bld) 93 s Normal 82-174 [facility] Comment on above: Result Comment: Targ et ACT range will vary based on the patient population, clinical status, and surgical intervention occurring. Performed By: #### 3 184-9 ####STEFANO TROY ([id number])[facility] ([facility])[address] [place] [address] Anesthesia Intraoperative Tr ansesophageal EchocardiogramOrdered By: Jah Olmedo on 08-10-2024 Aortic Valve Area by Continuity of Peak Velocity 1.41 cm2 [facility] Work Phone: Aortic Valve Area by Continuity of VTI 1.28 cm2 [facility] Work Phone: AV mn grad 3 mmHg [facility] Work Phone: AV pk grad 6 mmHg [facility] Work Phone: AV pk last 1.2 m/s [facility] Work Phone: LV EF 58 % [facility] Work Phone: LVOT diam 1.9 cm [facility] Work Phone: RVSP 41.4 mmHg [facility] Work Phone: [facility] Work Phone: Anesthesia Intraoperative Tr ansesophageal Echocardiogramon 08-10-2024 Formerly Named [facility] - Dept of Anesthesiology [address] [place] [address] and TRANSESOPHAGEAL ECHOCARDIOGRAM REPORT Patient Name: KARLA Hancock Physician: [id number] Olmedo DO Study Date: 08/10/2024 Ordering Provider: Shona OLMEDO MRN/PID: [id number] Fellow: Nurse: Date of /Age: 3 1950 / 73 years [employer]: Gender assigned at F Additional Staff: : BSA / BMI: m2 / kg/m2 Study Type: ANESTHESIA INTRAOPERATIVE ANASTASIA Diagnosis/ICD: Aneurysm of the ascending aorta, without rupture-I71.21 CPT Code: ANASTASIA Complete-47753; Doppler Limited-67156; Color Doppler-75989 PHYSICIAN INTERPRETATION: Left Ventricle: The left ventricular [...] (2.5-5.5cm2) AoV Area,Vm (more content not included)... 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 [facility] Work Phone: CBC panel Auto (Bld)on 08-10 Erythrocyte distribution width (RBC) [Ratio] 13.1 % Normal 11.5-14.5 [facility] Comment on above: Performed By: #### 5 8410-2 ####STEFANO TROY ([id number])[facility] ([facility])[address] [place] [address] Hematocrit (Bld) [Volume fraction] 27.5 % Low 36.0-46.0 [facility] Comment on above: Performed By: #### 5 8410-2 ####STEFANO TROY ([id number])[facility] ([facility])[address] [place] [address] Hemoglobin (Bld) [Mass/Vol] 9.0 g/dL Low 12.0-16.0 [facility] Comment on above: Performed By: #### 5 8410-2 ####STEFANO TROY ([id number])[facility] ([facility])[address] [place] [address] MCH (RBC) [Entitic mass] 30.7 pg Normal 26.0-34.0 [facility] Comment on above: Performed By: #### 5 8410-2 ####STEFANO TROY (65643)[facility] ([facility])[address] [place] [address] MCHC (RBC) [Mass/Vol] 32.7 g/dL Normal 32.0-36.0 [facility] Comment on above: Performed By: #### 5 8410-2 ####STEFANO TROY ([id number])[facility] ([facility])[address] [place] [address] MCV (RBC) [Entitic vol] 94 fL Normal 80-100 [facility] Comment on above: Performed By: #### 5 8410-2 ####STEFANO TROY (06113)[facility] ([facility])[address] [place] [address] Nucleated RBC/100 WBC (Bld) [Ratio] 0.0 /100 WBCs Normal 0.0-0.0 [facility] Comment on above: Performed By: #### 5 8410-2 ####STEFANO TROY ([id number])[facility] ([facility])[address] [place] [address] Platelets (Bld) [#/Vol] 286 x10*3/uL Normal 150-450 [facility] Comment on above: Performed By: #### 5 8410-2 ####STEFANO TROY ([id number])[facility] ([facility])[address] [place] [address] RBC (Bld) [#/Vol] 2.93 x10*6/uL Low 4.00-5.20 [facility] Comment on above: Performed By: #### 5 8410-2 ####STEFANO TROY ([id number])[facility] ([facility])[address] [place] [address] WBC (Bld) [#/Vol] 13.6 x10*3/uL High 4.4-11.3 [facility] Comment on above: Performed By: #### 5 8410-2 ####STEFANO TROY ([id number])[facility] ([facility])[address] [place] [address] Erythrocyte distribution width (RBC) [Ratio] 13.0 % Normal 11.5-14.5 [facility] Comment on above: Order Comment: On ad kareem to ICU Performed By: #### 5 8410-2 ####STEFANO TROY ([id number])[facility] ([facility])[address] [place] [address] Hematocrit (Bld) [Volume fraction] 27.5 % Low 36.0-46.0 [facility] Comment on above: Order Comment: On ad kareem to ICU Performed By: #### 5 8410-2 ####STEFANO TROY ([id number])[facility] ([facility])[address] [place] [address] Hemoglobin (Bld) [Mass/Vol] 9.1 g/dL Low 12.0-16.0 [facility] Comment on above: Order Comment: On ad kareem to ICU Performed By: #### 5 8410-2 ####STEFANO TROY ([id number])[facility] ([facility])[address] [place] [id number] MCH (RBC) [Entitic mass] 29.7 pg Normal 26.0-34.0 [facility] Comment on above: Order Comment: On ad kareem to ICU Performed By: #### 5 8410-2 ####STEFANO TROY ([id number])[facility] ([facility])[address] [place] [id number] MCHC (RBC) [Mass/Vol] 33.1 g/dL Normal 32.0-36.0 [facility] Comment on above: Order Comment: On ad kareem to ICU Performed By: #### 5 8410-2 ####STEFANO TROY ([id number])[facility] ([facility])[address] [place] [address] MCV (RBC) [Entitic vol] 90 fL Normal 80-100 U [facility] Comment on above: Order Comment: On ad kareem to ICU Performed By: #### 5 8410-2 ####STEFANO TROY ([id number])[facility] ([facility])[address] [place] [address] Nucleated RBC/100 WBC (Bld) [Ratio] 0.0 /100 WBCs Normal 0.0-0.0 [facility] Comment on above: Order Comment: On ad kareem to ICU Performed By: #### 5 8410-2 ####STEFANO TROY ([id number])[facility] ([facility])[address] [place] [address] Platelets (Bld) [#/Vol] 273 x10*3/uL Normal 150-450 [facility] Comment on above: Order Comment: On ad kareem to ICU Performed By: #### 5 8410-2 ####STEFANO TROY ([id number])[facility] ([facility])[address] [place] [address] RBC (Bld) [#/Vol] 3.06 x10*6/uL Low 4.00-5.20 [facility] Comment on above: Order Comment: On ad kareem to ICU Performed By: #### 5 8410-2 ####STEFANO TROY ([id number])[facility] ([facility])[address] [place] [address] WBC (Bld) [#/Vol] 15.8 x10*3/uL High 4.4-11.3 [facility] Comment on above: Order Comment: On ad kareem to ICU Performed By: #### 5 8410-2 ####STEFANO TROY ([id number])[facility] ([facility])[address] [place] [address] Erythrocyte distribution width (RBC) [Ratio] 12.9 % Normal 11.5-14.5 [facility] Comment on above: Performed By: #### 5 8410-2 ####STEFANO TROY ([id number])[facility] ([facility])[address] [place] [address] Hematocrit (Bld) [Volume fraction] 29.8 % Low 36.0-46.0 [facility] Comment on above: Performed By: #### 5 8410-2 ####STEFANO TROY ([id number])[facility] ([facility])[address] [place] [id number] Hemoglobin (Bld) [Mass/Vol] 9.8 g/dL Low 12.0-16.0 [facility] Comment on above: Performed By: #### 5 8410-2 ####STEFANO TROY ([id number])[facility] ([facility])[address] [place] [address] MCHC (RBC) [Mass/Vol] 32.9 g/dL Normal 32.0-36.0 [facility] Comment on above: Performed By: #### 5 8410-2 ####STEFANO TROY ([id number])[facility] ([facility])[address] [place] [address] MCV (RBC) [Entitic vol] 93 fL Normal 80-100 U [facility] Comment on above: Performed By: #### 5 8410-2 ####STEFANO TROY ([id number])[facility] ([facility])[address] [place] [address] Platelets (Bld) [#/Vol] 229 x10*3/uL Normal 150-450 [facility] Comment on above: Performed By: #### 5 8410-2 ####STEFANO TROY ([id number])[facility] ([facility])[address] [place] [address] RBC (Bld) [#/Vol] 3.19 x10*6/uL Low 4.00-5.20 [facility] Comment on above: Performed By: #### 5 8410-2 ####STEFANO TROY ([id number])[facility] ([facility])[address] [place] [id number] WBC (Bld) [#/Vol] 18.3 x10*3/uL High 4.4-11.3 [facility] Comment on above: Performed By: #### 5 8410-2 ####STEFANO TROY ([id number])[facility] ([facility])[address] [place] [id number] Carboxyhemoglobin (BldA) [Ma ss fraction]on 08-10-2024 Deoxyhemoglobin (BldA) [Mass fraction] 0.5 % Normal 0.0-5.0 [facility] Comment on above: Performed By: #### 2 030-5 ####STEFANO TROY ([id number])[facility] ([facility])[address] [place] [address] Methemoglobin (BldA) [Mass fraction] 0.9 % Normal 0.0-1.5 [facility] Comment on above: Performed By: #### 2 030-5 ####STEFANO TROY ([id number])[facility] ([facility])[address] [place] [address] Deoxyhemoglobin (BldA) [Mass fraction] 0.2 % Normal 0.0-5.0 [facility] Comment on above: Performed By: #### 2 030-5 ####STEFANO TROY ([id number])[facility] ([facility])[address] [place] [address] Methemoglobin (BldA) [Mass fraction] 0.6 % Normal 0.0-1.5 [facility] Comment on above: Performed By: #### 2 030-5 ####STEFANO TROY ([id number])[facility] ([facility])[address] [place] [address] Deoxyhemoglobin (BldA) [Mass fraction] 0.0 % Normal 0.0-5.0 [facility] Comment on above: Performed By: #### 2 030-5 ####STEFANO TROY ([id number])[facility] ([facility])[address] [place] [address] Methemoglobin (BldA) [Mass fraction] 0.6 % Normal 0.0-1.5 [facility] Comment on above: Performed By: #### 2 030-5 ####STEFANO TROY ([id number])[facility] ([facility])[address] [place] [address] Deoxyhemoglobin (BldA) [Mass fraction] 0.0 % Normal 0.0-5.0 [facility] Comment on above: Performed By: #### 2 030-5 ####STEFANO TROY ([id number])[facility] ([facility])[address] [place] [address] Methemoglobin (BldA) [Mass fraction] 1.0 % Normal 0.0-1.5 [facility] Comment on above: Performed By: #### 2 030-5 ####STEFANO TROY ([id number])[facility] ([facility])[address] [place] [address] Deoxyhemoglobin (BldA) [Mass fraction] 0.2 % Normal 0.0-5.0 [facility] Comment on above: Performed By: #### 2 030-5 ####STEFANO TROY ([id number])[facility] ([facility])[address] [place] [address] Methemoglobin (BldA) [Mass fraction] 0.8 % Normal 0.0-1.5 [facility] Comment on above: Performed By: #### 2 030-5 ####STEFANO TROY ([id number])[facility] ([facility])[address] [place] [address] Deoxyhemoglobin (BldA) [Mass fraction] 0.0 % Normal 0.0-5.0 [facility] Comment on above: Performed By: #### 2 030-5 ####STEFANO TROY ([id number])[facility] ([facility])[address] [place] [address] Methemoglobin (BldA) [Mass fraction] 0.4 % Normal 0.0-1.5 [facility] Comment on above: Performed By: #### 2 030-5 ####STEFANO TROY ([id number])[facility] ([facility])[address] [place] [address] Deoxyhemoglobin (BldA) [Mass fraction] 0.0 % Normal 0.0-5.0 [facility] Comment on above: Performed By: #### 2 030-5 ####STEFANO TROY ([id number])[facility] ([facility])[address] [place] [address] Methemoglobin (BldA) [Mass fraction] 0.7 % Normal 0.0-1.5 [facility] Comment on above: Performed By: #### 2 030-5 ####STEFANO TROY ([id number])[facility] ([facility])[address] [place] [address] Deoxyhemoglobin (BldA) [Mass fraction] 0.0 % Normal 0.0-5.0 [facility] Comment on above: Performed By: #### 2 030-5 ####STEFANO TROY ([id number])[facility] ([facility])[address] [place] [address] Methemoglobin (BldA) [Mass fraction] 0.3 % Normal 0.0-1.5 [facility] Comment on above: Performed By: #### 2 030-5 ####STEFANO TROY ([id number])[facility] ([facility])[address] [place] [address] Carboxyhemoglobin (BldV) [Ma ss fraction]on 08-10-2024 Methemoglobin (BldV) [Mass fraction] 0.7 % Normal 0.0-1.5 [facility] Comment on above: Performed By: #### 2 032-1 ####STEFANO TROY ([id number])[facility] ([facility])[address] [place] [address] Carboxyhemoglobin/Hemoglobin .totalon 08-10-2024 Carboxyhemoglobin (BldA) [Mass fraction] 1.2 % Normal [facility] Comment on above: Result Comment: Ref ValuesNon-Smokers 0.5-1.5%Smokers 0.5-10.0% Performed By: #### 2 030-5 ####STEFANO TROY ([id number])[facility] ([facility])[address] [place] [address] Carboxyhemoglobin (BldA) [Mass fraction] 1.1 % Normal [facility] Comment on above: Result Comment: Ref ValuesNon-Smokers 0.5-1.5%Smokers 0.5-10.0% Performed By: #### 2 030-5 ####STEFANO TROY ([id number])[facility] ([facility])[address] [place] [address] Carboxyhemoglobin (BldA) [Mass fraction] 1.6 % [facility] Comment on above: Result Comment: Ref ValuesNon-Smokers 0.5-1.5%Smokers 0.5-10.0% Performed By: #### 2 030-5 ####STEFANO TROY ([id number])[facility] ([facility])[address] [place] [address] Carboxyhemoglobin (BldA) [Mass fraction] 1.6 % [facility] Comment on above: Result Comment: Ref ValuesNon-Smokers 0.5-1.5%Smokers 0.5-10.0% Performed By: #### 2 030-5 ####STEFANO TROY ([id number])[facility] ([facility])[address] [place] [address] Carboxyhemoglobin (BldA) [Mass fraction] 1.4 % [facility] Comment on above: Result Comment: Ref ValuesNon-Smokers 0.5-1.5%Smokers 0.5-10.0% Performed By: #### 2 030-5 ####STEFANO TROY ([id number])[facility] ([facility])[address] [place] [address] Carboxyhemoglobin (BldV) [Mass fraction] 1.5 % [facility] Comment on above: Result Comment: Ref ValuesNon-Smokers 0.5-1.5%Smokers 0.5-10.0% Performed By: #### 2 032-1 ####STEFANO TROY ([id number])[facility] ([facility])[address] [place] [address] Carboxyhemoglobin (BldA) [Mass fraction] 1.5 % [facility] Comment on above: Result Comment: Ref ValuesNon-Smokers 0.5-1.5%Smokers 0.5-10.0% Performed By: #### 2 030-5 ####STEFANO TROY ([id number])[facility] ([facility])[address] [place] [address] Carboxyhemoglobin (BldA) [Mass fraction] 1.7 % Normal [facility] Comment on above: Result Comment: Ref ValuesNon-Smokers 0.5-1.5%Smokers 0.5-10.0% Performed By: #### 2 030-5 ####STEFANO TROY ([id number])[facility] ([facility])[address] [place] [address] Carboxyhemoglobin (BldA) [Mass fraction] 1.5 % Normal [facility] Comment on above: Result Comment: Ref ValuesNon-Smokers 0.5-1.5%Smokers 0.5-10.0% Performed By: #### 2 030-5 ####STEFANO TROY ([id number])[facility] ([facility])[address] [place] [address] Hemoglobin (Bld) [Mass/Vol] 12.0 g/dL Normal 12.0-16.0 [facility] Comment on above: Performed By: #### 2 030-5 ####STEFANO TROY ([id number])[facility] ([facility])[address] [place] [address] Performed By: #### 9 3685-6 ####STEFANO TROY ([id number])[facility] ([facility])[address] [place] [address] Oxyhemoglobin (BldA) [Mass fraction] 98.2 % High 94.0-98.0 [facility] Comment on above: Performed By: #### 2 030-5 ####STEFANO TROY ([id number])[facility] ([facility])[address] [place] [address] Performed By: #### 9 3685-6 ####STEFANO TROY ([id number])[facility] ([facility])[address] [place] [address] Coagulation surface inducedo n 08-10-2024 aPTT Coag (PPP) [Time] 34 s Normal 27-38 [facility] Comment on above: Order Comment: The A PTT is no longer used for monitoring Unfractionated Heparin Therapy. For monitoring Heparin Therapy, use the Heparin Assay. Performed By: #### 1 4979-9 ####STEFANO TROY ([id number])[facility] ([facility])[address] [place] [address] Coagulation tissue factor in ducedon 08-10-2024 PT Coag (PPP) [Time] 19.0 s High 9.8-12.8 [facility] Comment on above: Performed By: #### 5 902-2 ####STEFANO TROY ([id number])[facility] ([facility])[address] [place] [address] ECG 12-LEADon 08-10-2024 ECG 12-LEAD Ventricular Rate 71 Atrial Rate 71 P-R Interval 204 QRS Duration 148 Q-T Interval 508 QTC Calculation(Bazett) 552 P Seward 75 R Seward -23 T Seward 72 QRS Count 12 Q Onset 212 P Onset 110 P Offset 167 T Offset 466 QTC Fredericia 537 Diagnosis Normal sinus rhythm Left bundle branch block Abnormal ECG Confirmed by Staci Díaz ([id number]) on 08/10/2024 4:54:53 PM Normal [facility] Fibrinogenon 08-10-2024 Fibrinogen Coag (PPP) [Mass/Vol] 185 mg/dL Low 200-400 [facility] Comment on above: Performed By: #### 3 255-7 ####STEFANO TROY ([id number])[facility] ([facility])[address] [place] [address] Fibrinogen Coag (PPP) [Mass/Vol] 151 mg/dL Low 200-400 [facility] Comment on above: Performed By: #### 3 255-7 ####STEFANO TROY ([id number])[facility] ([facility])[address] [place] [address] Gas AND CO AND electrolytes panelon 08-10-2024 Hemoglobin (Bld) [Mass/Vol] 10.1 g/dL Low 12.0-16.0 [facility] Comment on above: Performed By: #### 9 3685-6 ####STEFANO TROY ([id number])[facility] ([facility])[address] [place] [address] Performed By: #### 2 030-5 ####STEFANO TROY ([id number])[facility] ([facility])[address] [place] [address] Oxyhemoglobin (BldA) [Mass fraction] 97.4 % Normal 94.0-98.0 [facility] Comment on above: Performed By: #### 9 3685-6 ####STEFANO TROY ([id number])[facility] ([facility])[address] [place] [id number] Performed By: #### 2 030-5 ####STEFANO TROY ([id number])[facility] ([facility])[address] [place] [address] Hemoglobin (Bld) [Mass/Vol] 8.3 g/dL Low 12.0-16.0 [facility] Comment on above: Performed By: #### 9 3685-6 ####STEFANO TROY ([id number])[facility] ([facility])[address] [place] [address] Performed By: #### 2 030-5 ####STEFANO TROY ([id number])[facility] ([facility])[address] [place] [address] Oxyhemoglobin (BldA) [Mass fraction] 98.2 % High 94.0-98.0 [facility] Comment on above: Performed By: #### 9 3685-6 ####STEFANO TROY ([id number])[facility] ([facility])[address] [place] [address] Performed By: #### 2 030-5 ####STEFANO TROY ([id number])[facility] ([facility])[address] [place] [address] Hemoglobin (Bld) [Mass/Vol] 9.1 g/dL Low 12.0-16.0 [facility] Comment on above: Performed By: #### 9 3685-6 ####STEFANO TROY ([id number])[facility] ([facility])[address] [place] [address] Performed By: #### 2 030-5 ####STEFANO TROY (51900)[facility] ([facility])[address] [place] [address] Oxyhemoglobin (BldA) [Mass fraction] 97.8 % Normal 94.0-98.0 [facility] Comment on above: Performed By: #### 9 3685-6 ####STEFANO TROY ([id number])[facility] ([facility])[address] [place] [address] Performed By: #### 2 030-5 ####STEFANO TROY ([id number])[facility] ([facility])[address] [place] [address] Hemoglobin (Bld) [Mass/Vol] 8.8 g/dL Low 12.0-16.0 [facility] Comment on above: Performed By: #### 9 3685-6 ####STEFANO TROY ([id number])[facility] ([facility])[address] [place] [address] Performed By: #### 2 030-5 ####STEFANO TROY ([id number])[facility] ([facility])[address] [place] [address] Oxyhemoglobin (BldA) [Mass fraction] 97.4 % Normal 94.0-98.0 [facility] Comment on above: Performed By: #### 9 3685-6 ####STEFANO TROY ([id number])[facility] ([facility])[address] [place] [address] Performed By: #### 2 030-5 ####STEFANO TROY ([id number])[facility] ([facility])[address] [place] [address] Hemoglobin (Bld) [Mass/Vol] 8.8 g/dL Low 12.0-16.0 [facility] Comment on above: Performed By: #### 9 3685-6 ####STEFANO TROY ([id number])[facility] ([facility])[address] [place] [address] Performed By: #### 2 030-5 ####STEFANO TROY ([id number])[facility] ([facility])[address] [place] [address] Oxyhemoglobin (BldA) [Mass fraction] 97.6 % Normal 94.0-98.0 [facility] Comment on above: Performed By: #### 9 3685-6 ####STEFANO TROY ([id number])[facility] ([facility])[address] [place] [address] Performed By: #### 2 030-5 ####STEFANO TROY ([id number])[facility] ([facility])[address] [place] [address] Hemoglobin (Bld) [Mass/Vol] 8.6 g/dL Low 12.0-16.0 [facility] Comment on above: Performed By: #### 9 3685-6 ####STEFANO TROY ([id number])[facility] ([facility])[address] [place] [address] Performed By: #### 2 030-5 ####STEFANO TROY ([id number])[facility] ([facility])[address] [place] [id number] Oxyhemoglobin (BldA) [Mass fraction] 98.0 % Normal 94.0-98.0 [facility] Comment on above: Performed By: #### 9 3685-6 ####STEFANO TROY ([id number])[facility] ([facility])[address] [place] [address] Performed By: #### 2 030-5 ####STEFANO TROY ([id number])[facility] ([facility])[address] [place] [address] Hemoglobin (Bld) [Mass/Vol] 10.9 g/dL Low 12.0-16.0 [facility] Comment on above: Performed By: #### 9 3685-6 ####STEFANO TROY ([id number])[facility] ([facility])[address] [place] [address] Performed By: #### 2 030-5 ####STEFANO TROY ([id number])[facility] ([facility])[address] [place] [address] Oxyhemoglobin (BldA) [Mass fraction] 97.6 % Normal 94.0-98.0 [facility] Comment on above: Performed By: #### 9 3685-6 ####STEFANO TROY ([id number])[facility] ([facility])[address] [place] [address] Performed By: #### 2 030-5 ####STEFANO TROY ([id number])[facility] ([facility])[address] [place] [address] Gas and Carbon monoxide and Electrolytes panel (BldA)on 08-10-2024 Anion gap 4 (BldA) [Moles/Vol] 11 mmo/L Normal 10-25 [facility] Comment on above: Performed By: #### 9 3685-6 ####STEFANO TROY ([id number])[facility] ([facility])[address] [place] [address] Base excess Calc (Bld) [Moles/Vol] -5.5000 mmol/L Low -2.0-3.0 [facility] Comment on above: Performed By: #### 9 3685-6 ####STEFANO TROY ([id number])[facility] ([facility])[address] [place] [address] Calcium.ionized (BldA) [Moles/Vol] 1.10 mmol/L Normal 1.10-1.33 [facility] Comment on above: Performed By: #### 9 3685-6 ####STEFANO TORY ([id number])[facility] ([facility])[address] [place] [address] Chloride (BldA) [Moles/Vol] 110 mmol/L High 98-107 [facility] Comment on above: Performed By: #### 9 3685-6 ####STEFANO TROY ([id number])[facility] ([facility])[address] [place] [address] CO2 (Bld) [Partial pressure] 39 mm Hg Normal 38-42 [facility] Comment on above: Performed By: #### 9 3685-6 ####STEFANO TROY ([id number])[facility] ([facility])[address] [place] [address] Glucose [Mass/Vol] 234 mg/dL High 74-99 [facility] Comment on above: Performed By: #### 9 3685-6 ####STEFANO TROY ([id number])[facility] ([facility])[address] [place] [address] HCO3 (Bld) [Moles/Vol] 20.1 mmol/L Low 22.0-26.0 [facility] Comment on above: Performed By: #### 9 3685-6 ####STEFANO TROY ([id number])[facility] ([facility])[address] [place] [address] Hematocrit Est (Bld) [Volume fraction] 27.0 % Low 36.0-46.0 [facility] Comment on above: Performed By: #### 9 3685-6 ####STEFANO TROY ([id number])[facility] ([facility])[address] [place] [address] Hemoglobin (Bld) [Mass/Vol] 9.1 g/dL Low 12.0-16.0 [facility] Comment on above: Performed By: #### 9 3685-6 ####STEFANO TROY ([id number])[facility] ([facility])[address] [place] [address] Inhaled oxygen concentration 40 % Normal [facility] Comment on above: Performed By: #### 9 3685-6 ####STEFANO TROY ([id number])[facility] ([facility])[address] [place] [address] Lactate (BldA) [Moles/Vol] 1.9 mmol/L Normal 0.4-2.0 [facility] Comment on above: Performed By: #### 9 3685-6 ####STEFANO TROY ([id number])[facility] ([facility])[address] [place] [address] Oxygen (Bld) [Partial pressure] 154 mm Hg High 85-95 [facility] Comment on above: Performed By: #### 9 3685-6 ####STEFANO TROY ([id number])[facility] ([facility])[address] [place] [id number] Oxyhemoglobin (BldA) [Mass fraction] 97.5 % Normal 94.0-98.0 [facility] Comment on above: Performed By: #### 9 3685-6 ####STEFANO TROY ([id number])[facility] ([facility])[address] [place], [place] [id number] PEEP CMH2O 5.0 cm H2O Normal [facility] Comment on above: Performed By: #### 9 3685-6 ####STEFANO TROY ([id number])[facility] ([facility])[address] [place], [place] [id number] pH (Bld) 7.32 [pH] Low 7.38-7.42 [facility] Comment on above: Performed By: #### 9 3685-6 ####STEFANO TROY ([id number])[facility] ([facility])[address] [place] [address] Potassium (BldA) [Moles/Vol] 4.0 mmol/L Normal 3.5-5.3 [facility] Comment on above: Performed By: #### 9 3685-6 ####STEFANO TROY ([id number])[facility] ([facility])[address] [place] [address] Sodium (BldA) [Moles/Vol] 137 mmol/L Normal 136-145 [facility] Comment on above: Performed By: #### 9 3685-6 ####STEFANO TROY ([id number])[facility] ([facility])[address] [place] [id number] TIDAL VOLUME 400 mL Normal [facility] Comment on above: Performed By: #### 9 3685-6 ####STEFANO TROY ([id number])[facility] ([facility])[address] [place] [address] VENTILATOR RATE 14 bpm Normal [facility] Comment on above: Performed By: #### 9 3685-6 ####STEFANO TROY ([id number])[facility] ([facility])[address] [place] [address] Anion gap 4 (BldA) [Moles/Vol] 12 mmo/L Normal 10-25 [facility] [facility] Comment on above: Performed By: #### 9 3685-6 ####STEFANO TROY ([id number])[facility] ([facility])[address] [place], [place] [address] Base excess Calc (Bld) [Moles/Vol] -4.4000 mmol/L Low -2.0-3.0 [facility] Comment on above: Performed By: #### 9 3685-6 ####STEFANO TROY ([id number])[facility] ([facility])[address] [place] [address] Calcium.ionized (BldA) [Moles/Vol] 1.04 mmol/L Low 1.10-1.33 [facility] Comment on above: Performed By: #### 9 3685-6 ####STEFANO TROY ([id number])[facility] ([facility])[address] [place], [place] [address] Chloride (BldA) [Moles/Vol] 110 mmol/L High 98-107 [facility] Comment on above: Performed By: #### 9 3685-6 ####STEFANO TROY ([id number])[facility] ([facility])[address] [place] [address] CO2 (Bld) [Partial pressure] 43 mm Hg High 38-42 [facility] Comment on above: Performed By: #### 9 3685-6 ####STEFANO TROY ([id number])[facility] ([facility])[address] [place], [place] [address] Glucose [Mass/Vol] 202 mg/dL High 74-99 [facility] Comment on above: Performed By: #### 9 3685-6 ####STEFANO TROY ([id number])[facility] ([facility])[address] [place], [place] [address] HCO3 (Bld) [Moles/Vol] 21.7 mmol/L Low 22.0-26.0 [facility] Comment on above: Performed By: #### 9 3685-6 ####STEFANO TROY ([id number])[facility] ([facility])[address] [place] [address] Hematocrit Est (Bld) [Volume fraction] 29.0 % Low 36.0-46.0 [facility] Comment on above: Performed By: #### 9 3685-6 ####STEFANO TROY ([id number])[facility] ([facility])[address] [place] [address] Hemoglobin (Bld) [Mass/Vol] 9.6 g/dL Low 12.0-16.0 [facility] Comment on above: Performed By: #### 9 3685-6 ####STEFANO TROY ([id number])[facility] ([facility])[address] [place], [place] [address] Inhaled oxygen concentration 50 % Normal [facility] Comment on above: Performed By: #### 9 3685-6 ####STEFANO TROY ([id number])[facility] ([facility])[address] [place] [address] Lactate (BldA) [Moles/Vol] 1.2 mmol/L Normal 0.4-2.0 [facility] Comment on above: Performed By: #### 9 3685-6 ####STEFANO TROY ([id number])[facility] ([facility])[address] [place] [address] Oxygen (Bld) [Partial pressure] 149 mm Hg High 85-95 [facility] Comment on above: Performed By: #### 9 3685-6 ####STEFANO TROY ([id number])[facility] ([facility])[address] [place], [place] [address] Oxyhemoglobin (BldA) [Mass fraction] 97.2 % Normal 94.0-98.0 [facility] Comment on above: Performed By: #### 9 3685-6 ####STEFANO TROY ([id number])[facility] ([facility])[address] [place] [address] PEEP CMH2O 5.0 cm H2O Normal [facility] Comment on above: Performed By: #### 9 3685-6 ####STEFANO TROY ([id number])[facility] ([facility])[address] [place] [address] pH (Bld) 7.31 [pH] Low 7.38-7.42 [facility] Comment on above: Performed By: #### 9 3685-6 ####STEFANO TROY ([id number])[facility] ([facility])[address] [place] [address] Potassium (BldA) [Moles/Vol] 3.7 mmol/L Normal 3.5-5.3 [facility] Comment on above: Performed By: #### 9 3685-6 ####STEFANO TROY ([id number])[facility] ([facility])[address] [place] [address] Sodium (BldA) [Moles/Vol] 140 mmol/L Normal 136-145 [facility] Comment on above: Performed By: #### 9 7975-6 ####STEFANO TROY ([id number])[facility] ([facility])[address] [place] [address] Specimen drawn from Nom Arterial Line [facility] Comment on above: Performed By: #### 9 7835-6 ####STEFANO TROY ([id number])[facility] ([facility])[address] [place] [address] TIDAL VOLUME 450 mL Normal [facility] Comment on above: Performed By: #### 9 8035-6 ####STEFANO TROY ([id number])[facility] ([facility])[address] [place] [address] VENTILATOR RATE 14 bpm Normal [facility] Comment on above: Performed By: #### 9 3685-6 ####STEFANO TROY ([id number])[facility] ([facility])[address] [place] [address] Anion gap 4 (BldA) [Moles/Vol] 13 mmo/L Normal 10-25 [facility] Comment on above: Performed By: #### 9 3685-6 ####STEFANO TROY ([id number])[facility] ([facility])[address] [place] [address] Base excess Calc (Bld) [Moles/Vol] -3.8000 mmol/L Low -2.0-3.0 [facility] Comment on above: Performed By: #### 9 3685-6 ####STEFANO TROY ([id number])[facility] ([facility])[address] [place], [place] [address] Calcium.ionized (BldA) [Moles/Vol] 1.17 mmol/L Normal 1.10-1.33 [facility] Comment on above: Performed By: #### 9 3685-6 ####STEFANO TROY ([id number])[facility] ([facility])[address] [place], [place] [address] Chloride (BldA) [Moles/Vol] 108 mmol/L High 98-107 [facility] Comment on above: Performed By: #### 9 3685-6 ####STEFANO TROY ([id number])[facility] ([facility])[address] [place] [address] CO2 (Bld) [Partial pressure] 43 mm Hg High 38-42 [facility] Comment on above: Performed By: #### 9 3685-6 ####STEFANO TROY ([id number])[facility] ([facility])[address] [place] [address] Glucose [Mass/Vol] 162 mg/dL High 74-99 [facility] Comment on above: Performed By: #### 9 3685-6 ####STEFANO TROY ([id number])[facility] ([facility])[address] [place] [address] HCO3 (Bld) [Moles/Vol] 22.2 mmol/L Normal 22.0-26.0 [facility] Comment on above: Performed By: #### 9 3685-6 ####STEFANO TROY ([id number])[facility] ([facility])[address] [place] [address] Hematocrit Est (Bld) [Volume fraction] 30.0 % Low 36.0-46.0 [facility] Comment on above: Performed By: #### 9 3685-6 ####STEFANO TROY ([id number])[facility] ([facility])[address] [place] [address] Inhaled oxygen concentration 100 % Normal [facility] Comment on above: Performed By: #### 9 3685-6 ####STEFANO TROY ([id number])[facility] ([facility])[address] [place], [place] [address] Lactate (BldA) [Moles/Vol] 2.2 mmol/L High 0.4-2.0 [facility] Comment on above: Performed By: #### 9 3685-6 ####STEFANO TROY ([id number])[facility] ([facility])[address] [place] [address] Oxygen (Bld) [Partial pressure] 298 mm Hg High 85-95 [facility] Comment on above: Performed By: #### 9 3685-6 ####STEFANO TROY ([id number])[facility] ([facility])[address] [place] [address] pH (Bld) 7.32 [pH] Low 7.38-7.42 [facility] Comment on above: Performed By: #### 9 3685-6 ####STEFANO TROY ([id number])[facility] ([facility])[address] [place] [address] Potassium (BldA) [Moles/Vol] 3.7 mmol/L Normal 3.5-5.3 [facility] Comment on above: Performed By: #### 9 3685-6 ####STEFANO TROY ([id number])[facility] ([facility])[address] [place] [address] Sodium (BldA) [Moles/Vol] 139 mmol/L Normal 136-145 [facility] Comment on above: Performed By: #### 9 3685-6 ####STEFANO TROY ([id number])[facility] ([facility])[address] [place] [address] Anion gap 4 (BldA) [Moles/Vol] 14 mmo/L Normal 10-25 [facility] Comment on above: Performed By: #### 9 3685-6 ####STEFANO TROY ([id number])[facility] ([facility])[address] [place] [address] Base excess Calc (Bld) [Moles/Vol] -3.6000 mmol/L Low -2.0-3.0 [facility] Comment on above: Performed By: #### 9 3685-6 ####STEFANO TROY ([id number])[facility] ([facility])[address] [place] [address] Calcium.ionized (BldA) [Moles/Vol] 1.19 mmol/L Normal 1.10-1.33 [facility] Comment on above: Performed By: #### 9 3685-6 ####STEFANO TROY ([id number])[facility] ([facility])[address] [place], [place] [address] Chloride (BldA) [Moles/Vol] 108 mmol/L High 98-107 [facility] Comment on above: Performed By: #### 9 3685-6 ####STEFANO TROY ([id number])[facility] ([facility])[address] [place], [place] [address] CO2 (Bld) [Partial pressure] 42 mm Hg Normal 38-42 [facility] Comment on above: Performed By: #### 9 3685-6 ####STEFANO TROY ([id number])[facility] ([facility])[address] [place], [place] [address] Glucose [Mass/Vol] 144 mg/dL High 74-99 [facility] Comment on above: Performed By: #### 9 3685-6 ####STEFANO TROY ([id number])[facility] ([facility])[address] [place] [address] HCO3 (Bld) [Moles/Vol] 22.1 mmol/L Normal 22.0-26.0 [facility] Comment on above: Performed By: #### 9 3685-6 ####STEFANO TROY ([id number])[facility] ([facility])[address] [place] [address] Hematocrit Est (Bld) [Volume fraction] 25.0 % Low 36.0-46.0 [facility] Comment on above: Performed By: #### 9 3685-6 ####STEFANO TROY ([id number])[facility] ([facility])[address] [place], [place] [address] Inhaled oxygen concentration 100 % Normal [facility] Comment on above: Performed By: #### 9 3685-6 ####STEFANO TROY ([id number])[facility] ([facility])[address] [place], [place] [address] Lactate (BldA) [Moles/Vol] 2.9 mmol/L High 0.4-2.0 [facility] Comment on above: Performed By: #### 9 3685-6 ####STEFANO TROY ([id number])[facility] ([facility])[address] [place] [address] Oxygen (Bld) [Partial pressure] 266 mm Hg High 85-95 [facility] Comment on above: Performed By: #### 9 3685-6 ####STEFANO TROY ([id number])[facility] ([facility])[address] [place] [address] pH (Bld) 7.33 [pH] Low 7.38-7.42 [facility] Comment on above: Performed By: #### 9 3685-6 ####STEFANO TROY ([id number])[facility] ([facility])[address] [place] [address] Potassium (BldA) [Moles/Vol] 4.0 mmol/L Normal 3.5-5.3 [facility] Comment on above: Performed By: #### 9 3685-6 ####STEFANO TROY ([id number])[facility] ([facility])[address] [place], [place] [address] Sodium (BldA) [Moles/Vol] 140 mmol/L Normal 136-145 [facility] Comment on above: Performed By: #### 9 3685-6 ####STEFANO TROY ([id number])[facility] ([facility])[address] [place], [place] [address] Anion gap 4 (BldA) [Moles/Vol] 11 mmo/L Normal 10-25 [facility] Comment on above: Performed By: #### 9 3685-6 ####STEFANO TROY ([id number])[facility] ([facility])[address] [place] [address] Base excess Calc (Bld) [Moles/Vol] -4.2000 mmol/L Low -2.0-3.0 [facility] Comment on above: Performed By: #### 9 3685-6 ####STEFANO TROY ([id number])[facility] ([facility])[address] [place], [place] [address] Calcium.ionized (BldA) [Moles/Vol] 1.15 mmol/L Normal 1.10-1.33 [facility] Comment on above: Performed By: #### 9 3685-6 ####STEFANO TROY ([id number])[facility] ([facility])[address] [place] [address] Chloride (BldA) [Moles/Vol] 109 mmol/L High 98-107 [facility] Comment on above: Performed By: #### 9 3685-6 ####STEFANO TROY ([id number])[facility] ([facility])[address] [place], [place] [address] CO2 (Bld) [Partial pressure] 45 mm Hg High 38-42 [facility] Comment on above: Performed By: #### 9 3685-6 ####STEFANO TROY ([id number])[facility] ([facility])[address] [place] [address] Glucose [Mass/Vol] 188 mg/dL High 74-99 [facility] Comment on above: Performed By: #### 9 3685-6 ####STEFANO TROY ([id number])[facility] ([facility])[address] [place] [address] HCO3 (Bld) [Moles/Vol] 22.1 mmol/L Normal 22.0-26.0 [facility] Comment on above: Performed By: #### 9 3685-6 ####STEFANO TROY ([id number])[facility] ([facility])[address] [place] [address] Hematocrit Est (Bld) [Volume fraction] 27.0 % Low 36.0-46.0 [facility] Comment on above: Performed By: #### 9 3685-6 ####STEFANO TROY ([id number])[facility] ([facility])[address] [place] [address] Inhaled oxygen concentration 100 % Normal [facility] Comment on above: Performed By: #### 9 3685-6 ####STEFANO TROY ([id number])[facility] ([facility])[address] [place], [place] [address] Lactate (BldA) [Moles/Vol] 2.7 mmol/L High 0.4-2.0 [facility] Comment on above: Performed By: #### 9 3685-6 ####STEFANO TROY ([id number])[facility] ([facility])[address] [place], [place] [address] Oxygen (Bld) [Partial pressure] 281 mm Hg High 85-95 [facility] Comment on above: Performed By: #### 9 3685-6 ####STEFANO TROY ([id number])[facility] ([facility])[address] [place], [place] [address] pH (Bld) 7.30 [pH] Low 7.38-7.42 [facility] Comment on above: Performed By: #### 9 3685-6 ####STEFANO TROY ([id number])[facility] ([facility])[address] [place] [address] Potassium (BldA) [Moles/Vol] 4.7 mmol/L Normal 3.5-5.3 [facility] Comment on above: Performed By: #### 9 3685-6 ####STEFANO TROY ([id number])[facility] ([facility])[address] [place], [place] [address] Sodium (BldA) [Moles/Vol] 137 mmol/L Normal 136-145 [facility] Comment on above: Performed By: #### 9 3685-6 ####STEFANO TROY ([id number])[facility] ([facility])[address] [place], [place] [address] Anion gap 4 (BldA) [Moles/Vol] 9 mmo/L Low 10-25 [facility] Comment on above: Performed By: #### 9 3685-6 ####STEFANO TROY ([id number])[facility] ([facility])[address] [place], [place] [address] Base excess Calc (Bld) [Moles/Vol] -1.5000 mmol/L Normal -2.0-3.0 [facility] Comment on above: Performed By: #### 9 3685-6 ####SETFANO TROY ([id number])[facility] ([facility])[address] [place], [place] [address] Calcium.ionized (BldA) [Moles/Vol] 1.14 mmol/L Normal 1.10-1.33 [facility] Comment on above: Performed By: #### 9 3685-6 ####STEFANO TRYO ([id number])[facility] ([facility])[address] [place], [place] [address] Chloride (BldA) [Moles/Vol] 109 mmol/L High 98-107 [facility] Comment on above: Performed By: #### 9 3685-6 ####STEFANO TROY ([id number])[facility] ([facility])[address] [place] [address] CO2 (Bld) [Partial pressure] 35 mm Hg Low 38-42 [facility] Comment on above: Performed By: #### 9 3685-6 ####STEFANO TROY ([id number])[facility] ([facility])[address] [place] [address] Glucose [Mass/Vol] 182 mg/dL High 74-99 [facility] Comment on above: Performed By: #### 9 3685-6 ####STEFANO TROY ([id number])[facility] ([facility])[address] [place] [address] HCO3 (Bld) [Moles/Vol] 22.7 mmol/L Normal 22.0-26.0 [facility] Comment on above: Performed By: #### 9 3685-6 ####STEFANO TROY ([id number])[facility] ([facility])[address] [place] [address] Hematocrit Est (Bld) [Volume fraction] 26.0 % Low 36.0-46.0 [facility] Comment on above: Performed By: #### 9 3685-6 ####STEFANO TROY ([id number])[facility] ([facility])[address] [place] [address] Inhaled oxygen concentration 80 % Normal [facility] Comment on above: Performed By: #### 9 3685-6 ####STEFANO TROY ([id number])[facility] ([facility])[address] [place] [address] Lactate (BldA) [Moles/Vol] 1.2 mmol/L Normal 0.4-2.0 [facility] Comment on above: Performed By: #### 9 3685-6 ####STEFANO TROY ([id number])[facility] ([facility])[address] [place] [address] Oxygen (Bld) [Partial pressure] 350 mm Hg High 85-95 [facility] Comment on above: Performed By: #### 9 3685-6 ####STEFANO TROY ([id number])[facility] ([facility])[address] [place] [address] pH (Bld) 7.42 [pH] Normal 7.38-7.42 [facility] Comment on above: Performed By: #### 9 3685-6 ####STEFANO TROY ([id number])[facility] ([facility])[address] [place] [address] Potassium (BldA) [Moles/Vol] 5.3 mmol/L Normal 3.5-5.3 [facility] Comment on above: Performed By: #### 9 3685-6 ####STEFANO TROY ([id number])[facility] ([facility])[address] [place], [place] [address] Sodium (BldA) [Moles/Vol] 135 mmol/L Low 136-145 [facility] Comment on above: Performed By: #### 9 3685-6 ####STEFANO TROY ([id number])[facility] ([facility])[address] [place], [place] [address] Anion gap 4 (BldA) [Moles/Vol] 10 mmo/L Normal 10-25 [facility] Comment on above: Performed By: #### 9 3685-6 ####STEFANO TROY ([id number])[facility] ([facility])[address] [place], [place] [address] Base excess Calc (Bld) [Moles/Vol] -1.5000 mmol/L Normal -2.0-3.0 [facility] Comment on above: Performed By: #### 9 3685-6 ####STEFANO TROY ([id number])[facility] ([facility])[address] [place], [place] [address] Calcium.ionized (BldA) [Moles/Vol] 1.12 mmol/L Normal 1.10-1.33 [facility] Comment on above: Performed By: #### 9 3685-6 ####STEFANO TROY ([id number])[facility] ([facility])[address] [place], [place] [address] Chloride (BldA) [Moles/Vol] 108 mmol/L High 98-107 [facility] Comment on above: Performed By: #### 9 3685-6 ####STEFANO TROY ([id number])[facility] ([facility])[address] [place] [address] CO2 (Bld) [Partial pressure] 35 mm Hg Low 38-42 [facility] Comment on above: Performed By: #### 9 3685-6 ####STEFANO TROY ([id number])[facility] ([facility])[address] [place] [address] Glucose [Mass/Vol] 175 mg/dL High 74-99 [facility] Comment on above: Performed By: #### 9 3685-6 ####STEFANO TROY ([id number])[facility] ([facility])[address] [place] [address] HCO3 (Bld) [Moles/Vol] 22.7 mmol/L Normal 22.0-26.0 [facility] Comment on above: Performed By: #### 9 3685-6 ####STEFANO TROY ([id number])[facility] ([facility])[address] [place] [id number] Hematocrit Est (Bld) [Volume fraction] 26.0 % Low 36.0-46.0 [facility] Comment on above: Performed By: #### 9 3685-6 ####STEFANO TROY ([id number])[facility] ([facility])[address] [place] [address] Lactate (BldA) [Moles/Vol] 1.2 mmol/L Normal 0.4-2.0 [facility] Comment on above: Performed By: #### 9 3685-6 ####STEFANO TROY ([id number])[facility] ([facility])[address] [place] [id number] Oxygen (Bld) [Partial pressure] 356 mm Hg High 85-95 [facility] Comment on above: Performed By: #### 9 3685-6 ####STEFANO TROY ([id number])[facility] ([facility])[address] [place] [address] pH (Bld) 7.42 [pH] Normal 7.38-7.42 [facility] Comment on above: Performed By: #### 9 3685-6 ####STEFANO TROY ([id number])[facility] ([facility])[address] [place] [address] Potassium (BldA) [Moles/Vol] 5.0 mmol/L Normal 3.5-5.3 [facility] Comment on above: Performed By: #### 9 3685-6 ####STEFANO TROY ([id number])[facility] ([facility])[address] [place], [place] [id number] Sodium (BldA) [Moles/Vol] 136 mmol/L Normal 136-145 [facility] Comment on above: Performed By: #### 9 3685-6 ####STEFANO TROY ([id number])[facility] ([facility])[address] [place], [place] [id number] Anion gap 4 (BldA) [Moles/Vol] 9 mmo/L Low 10-25 [facility] Comment on above: Performed By: #### 9 3685-6 ####STEFANO TROY ([id number])[facility] ([facility])[address] [place], [place] [id number] Base excess Calc (Bld) [Moles/Vol] -0.2000 mmol/L Normal -2.0-3.0 [facility] Comment on above: Performed By: #### 9 3685-6 ####STEFANO TROY ([id number])[facility] ([facility])[address] [place] [id number] Calcium.ionized (BldA) [Moles/Vol] 1.09 mmol/L Low 1.10-1.33 [facility] Comment on above: Performed By: #### 9 3685-6 ####STEFANO TROY ([id number])[facility] ([facility])[address] [place] [phone] Chloride (BldA) [Moles/Vol] 108 mmol/L High 98-107 [facility] Comment on above: Performed By: #### 9 3685-6 ####STEFANO TROY ([id number])[facility] ([facility])[address] [place] [id number] CO2 (Bld) [Partial pressure] 34 mm Hg Low 38-42 [facility] Comment on above: Performed By: #### 9 3685-6 ####STEFANO TROY ([id number])[facility] ([facility])[address] [place], [place] [phone] Glucose [Mass/Vol] 174 mg/dL High 74-99 [facility] Comment on above: Performed By: #### 9 3685-6 ####STEFANO TROY ([id number])[facility] ([facility])[address] [place] [address] HCO3 (Bld) [Moles/Vol] 23.6 mmol/L Normal 22.0-26.0 [facility] [facility] Comment on above: Performed By: #### 9 3685-6 ####STEFANO TROY ([id number])[facility] ([facility])[address] [place] [address] Hematocrit Est (Bld) [Volume fraction] 26.0 % Low 36.0-46.0 [facility] Comment on above: Performed By: #### 9 3685-6 ####STEFANO TROY ([id number])[facility] ([facility])[address] [place] [address] Inhaled oxygen concentration 75 % Normal [facility] Comment on above: Performed By: #### 9 3685-6 ####STEFANO TROY ([id number])[facility] ([facility])[address] [place] [address] Lactate (BldA) [Moles/Vol] 1.2 mmol/L Normal 0.4-2.0 [facility] Comment on above: Performed By: #### 9 3685-6 ####STEFANO TROY ([id number])[facility] ([facility])[address] [place] [id number] Oxygen (Bld) [Partial pressure] 396 mm Hg High 85-95 [facility] Comment on above: Performed By: #### 9 3685-6 ####STEFANO TROY ([id number])[facility] ([facility])[address] [place] [address] pH (Bld) 7.45 [pH] High 7.38-7.42 [facility] Comment on above: Performed By: #### 9 3685-6 ####STEFANO TROY ([id number])[facility] ([facility])[address] [place] [address] Potassium (BldA) [Moles/Vol] 6.0 mmol/L High 3.5-5.3 [facility] Comment on above: Performed By: #### 9 3685-6 ####STEFANO TROY ([id number])[facility] ([facility])[address] [place] [address] Sodium (BldA) [Moles/Vol] 135 mmol/L Low 136-145 [facility] Comment on above: Performed By: #### 9 3685-6 ####STEFANO TROY ([id number])[facility] ([facility])[address] [place], [place] [address] Anion gap 4 (BldA) [Moles/Vol] 11 mmo/L Normal 10-25 [facility] Comment on above: Performed By: #### 9 3685-6 ####STEFANO TROY ([id number])[facility] ([facility])[address] [place], [place] [address] Base excess Calc (Bld) [Moles/Vol] -2.3000 mmol/L Low -2.0-3.0 [facility] Comment on above: Performed By: #### 9 3685-6 ####STEFANO TROY ([id number])[facility] ([facility])[address] [place], [place] [address] Calcium.ionized (BldA) [Moles/Vol] 1.21 mmol/L Normal 1.10-1.33 [facility] Comment on above: Performed By: #### 9 3685-6 ####STEFANO TROY ([id number])[facility] ([facility])[address] [place] [address] Chloride (BldA) [Moles/Vol] 108 mmol/L High 98-107 [facility] Comment on above: Performed By: #### 9 3685-6 ####STEFANO TROY ([id number])[facility] ([facility])[address] [place] [address] CO2 (Bld) [Partial pressure] 38 mm Hg Normal 38-42 [facility] Comment on above: Performed By: #### 9 3685-6 ####STEFANO TROY ([id number])[facility] ([facility])[address] [place] [address] Glucose [Mass/Vol] 141 mg/dL High 74-99 [facility] Comment on above: Performed By: #### 9 3685-6 ####STEFANO TROY ([id number])[facility] ([facility])[address] [place] [address] HCO3 (Bld) [Moles/Vol] 22.5 mmol/L Normal 22.0-26.0 [facility] Comment on above: Performed By: #### 9 3685-6 ####STEFANO TROY ([id number])[facility] ([facility])[address] [place] [address] Hematocrit Est (Bld) [Volume fraction] 33.0 % Low 36.0-46.0 [facility] Comment on above: Performed By: #### 9 3685-6 ####STEFANO TROY ([id number])[facility] ([facility])[address] [place] [address] Inhaled oxygen concentration 100 % Normal [facility] Comment on above: Performed By: #### 9 3685-6 ####STEFANO TROY ([id number])[facility] ([facility])[address] [place] [address] Lactate (BldA) [Moles/Vol] 1.2 mmol/L Normal 0.4-2.0 [facility] Comment on above: Performed By: #### 9 3685-6 ####STEFANO TROY ([id number])[facility] ([facility])[address] [place] [address] Oxygen (Bld) [Partial pressure] 318 mm Hg High 85-95 [facility] Comment on above: Performed By: #### 9 3685-6 ####STEFANO TROY ([id number])[facility] ([facility])[address] [place] [address] pH (Bld) 7.38 [pH] Normal 7.38-7.42 [facility] Comment on above: Performed By: #### 9 3685-6 ####STEFANO TROY ([id number])[facility] ([facility])[address] [place] [address] Potassium (BldA) [Moles/Vol] 3.6 mmol/L Normal 3.5-5.3 [facility] Comment on above: Performed By: #### 9 3685-6 ####STEFANO TROY ([id number])[facility] ([facility])[address] [place], [place] [address] Sodium (BldA) [Moles/Vol] 138 mmol/L Normal 136-145 [facility] Comment on above: Performed By: #### 9 3685-6 ####STEFANO TROY ([id number])[facility] ([facility])[address] [place], [place] [address] Anion gap 4 (BldA) [Moles/Vol] 13 mmo/L Normal 10-25 [facility] Comment on above: Performed By: #### 9 3685-6 ####STEFANO TROY ([id number])[facility] ([facility])[address] [place], [place] [address] Base excess Calc (Bld) [Moles/Vol] -2.0000 mmol/L Normal -2.0-3.0 [facility] Comment on above: Performed By: #### 9 3685-6 ####STEFANO TROY ([id number])[facility] ([facility])[address] [place] [address] Calcium.ionized (BldA) [Moles/Vol] 1.23 mmol/L Normal 1.10-1.33 [facility] Comment on above: Performed By: #### 9 3685-6 ####STEFANO TROY ([id number])[facility] ([facility])[address] [place] [address] Chloride (BldA) [Moles/Vol] 107 mmol/L Normal 98-107 [facility] Comment on above: Performed By: #### 9 3685-6 ####STEFANO TROY ([id number])[facility] ([facility])[address] [place] [address] CO2 (Bld) [Partial pressure] 35 mm Hg Low 38-42 [facility] Comment on above: Performed By: #### 9 3685-6 ####STEFANO TROY ([id number])[facility] ([facility])[address] [place], [place] [address] Glucose [Mass/Vol] 127 mg/dL High 74-99 [facility] Comment on above: Performed By: #### 9 0875-6 ####STEFANO TROY ([id number])[facility] ([facility])[address] [place] [address] HCO3 (Bld) [Moles/Vol] 22.2 mmol/L Normal 22.0-26.0 [facility] Comment on above: Performed By: #### 9 3685-6 ####STEFANO TROY ([id number])[facility] ([facility])[address] [place] [address] Hematocrit Est (Bld) [Volume fraction] 36.0 % Normal 36.0-46.0 [facility] Comment on above: Performed By: #### 9 3685-6 ####STEFANO TROY ([id number])[facility] ([facility])[address] [place] [address] Inhaled oxygen concentration 60 % Normal [facility] Comment on above: Performed By: #### 9 5235-6 ####STEFANO TROY ([id number])[facility] ([facility])[address] [place] [address] Lactate (BldA) [Moles/Vol] 1.5 mmol/L Normal 0.4-2.0 [facility] Comment on above: Performed By: #### 9 3685-6 ####STEFANO TROY ([id number])[facility] ([facility])[address] [place] [address] Oxygen (Bld) [Partial pressure] 225 mm Hg High 85-95 [facility] Comment on above: Performed By: #### 9 3685-6 ####STEFANO TROY ([id number])[facility] ([facility])[address] [place] [address] pH (Bld) 7.41 [pH] Normal 7.38-7.42 [facility] Comment on above: Performed By: #### 9 3685-6 ####STEFANO TROY ([id number])[facility] ([facility])[address] [place] [address] Potassium (BldA) [Moles/Vol] 3.6 mmol/L Normal 3.5-5.3 [facility] Comment on above: Performed By: #### 9 3685-6 ####STEFANO TROY ([id number])[facility] ([facility])[address] [place] [address] Sodium (BldA) [Moles/Vol] 139 mmol/L Normal 136-145 [facility] Comment on above: Performed By: #### 9 3685-6 ####STEFANO TROY ([id number])[facility] ([facility])[address] [place], [place] [address] Gas panel (BldV)on 4 Anion gap 4 (BldV) [Moles/Vol] 11.0 mmol/L Normal 10.0-25.0 [facility] Comment on above: Performed By: #### 2 4339-4 ####STEFANO TROY ([id number])[facility] ([facility])[address] [place] [address] Base excess Calc (BldV) [Moles/Vol] -0.5000 mmol/L Normal -2.0-3.0 [facility] Comment on above: Performed By: #### 2 4339-4 ####STEFANO TROY ([id number])[facility] ([facility])[address] [place] [address] Calcium.ionized (BldV) [Moles/Vol] 1.13 mmol/L Normal 1.10-1.33 [facility] Comment on above: Performed By: #### 2 433-4 ####STEFANO TROY ([id number])[facility] ([facility])[address] [place], [place] [address] Chloride (BldV) [Moles/Vol] 106 mmol/L Normal 98-107 [facility] Comment on above: Performed By: #### 2 4339-4 ####STEFANO TROY ([id number])[facility] ([facility])[address] [place], [place] [address] CO2 (BldV) [Partial pressure] 39 mm Hg Low 41-51 [facility] Comment on above: Performed By: #### 2 4339-4 ####STEFANO TROY ([id number])[facility] ([facility])[address] [place], [place] [address] Glucose [Mass/Vol] 176 mg/dL High 74-99 [facility] Comment on above: Performed By: #### 2 4339-4 ####STEFANO TROY ([id number])[facility] ([facility])[address] [place], [place] [address] HCO3 (Bld) [Moles/Vol] 24.2 mmol/L Normal 22.0-26.0 [facility] Comment on above: Performed By: #### 2 4339-4 ####STEFANO TROY ([id number])[facility] ([facility])[address] [place] [address] Hematocrit Est (Bld) [Volume fraction] 26.0 % Low 36.0-46.0 [facility] Comment on above: Performed By: #### 2 4339-4 ####STEFANO TROY ([id number])[facility] ([facility])[address] [place] [address] Hemoglobin (Bld) [Mass/Vol] 8.7 g/dL Low 12.0-16.0 [facility] Comment on above: Performed By: #### 2 4339-4 ####STEFANO TROY ([id number])[facility] ([facility])[address] [place] [address] Inhaled oxygen concentration 75 % Normal [facility] Comment on above: Performed By: #### 2 4339-4 ####STEFANO TROY ([id number])[facility] ([facility])[address] [place] [address] Lactate (BldV) [Moles/Vol] 1.1 mmol/L Normal 0.4-2.0 [facility] Comment on above: Performed By: #### 2 4339-4 ####STEFANO TROY ([id number])[facility] ([facility])[address] [place] [address] Oxygen (BldV) [Partial pressure] 53 mm Hg High 35-45 [facility] Comment on above: Performed By: #### 2 4339-4 ####STEFANO TROY ([id number])[facility] ([facility])[address] [place] [address] Oxygen saturation in Venous blood 88 % High 45-75 [facility] Comment on above: Performed By: #### 2 4339-4 ####STEFANO TROY ([id number])[facility] ([facility])[address] [place] [address] Oxyhemoglobin (BldV) [Mass fraction] 86.3 % High 45.0-75.0 [facility] Comment on above: Performed By: #### 2 4339-4 ####STEFANO TROY ([id number])[facility] ([facility])[address] [place] [address] pH (BldV) 7.40 [pH] Normal 7.33-7.43 [facility] Comment on above: Performed By: #### 2 4339-4 ####STEFANO TROY ([id number])[facility] ([facility])[address] [place] [address] Potassium (BldV) [Moles/Vol] 5.3 mmol/L Normal 3.5-5.3 [facility] Comment on above: Performed By: #### 2 4339-4 ####STEFANO TROY ([id number])[facility] ([facility])[address] [place] [address] Sodium (BldV) [Moles/Vol] 136 mmol/L Normal 136-145 [facility] Comment on above: Performed By: #### 2 4339-4 ####STEFANO TROY ([id number])[facility] ([facility])[address] [place], [place] [address] Glucose Test strip manual (B ld) [Mass/Vol]on 08-10-2024 Glucose [Mass/Vol] 173 mg/dL High [address] [place] [address] Comment on above: Performed By: #### 2 341-6 ####STEFANO TROY ([id number])[facility] ([facility])[address] [place] [address] Glucose [Mass/Vol] 182 mg/dL High [address] [place] [address] Comment on above: Performed By: #### 2 341-6 ####STEFANO TROY ([id number])[facility] ([facility])[address] [place] [address] Glucose [Mass/Vol] 167 mg/dL High [address] [place] [address] Comment on above: Performed By: #### 2 341-6 ####STEFANO TROY ([id number])[facility] ([facility])[address] [place] [address] Glucose [Mass/Vol] 113 mg/dL High [address] [place] [address] Comment on above: Performed By: #### 2 341-6 ####STEFANO TROY ([id number])[facility] ([facility])[address] [place] [address] Magnesiumon 08-10-2024 Magnesium [Mass/Vol] 2.39 mg/dL Normal 1.60-2.40 [facility] Comment on above: Order Comment: On ad kareem to ICU Performed By: #### 1 9123-9 ####STEFANO TROY ([id number])[facility] ([facility])[address] [place] [address] PT Coag (PPP) [Time]on 08-10 INR Coag (PPP) [Relative time] 1.7 High 0.9-1.1 [facility] Comment on above: Performed By: #### 5 902-2 ####STEFANO TROY ([id number])[facility] ([facility])[address] [place] [address] PT and aPTT panel Coag (PPP) on 08-10-2024 aPTT Coag (PPP) [Time] 27 s Normal 27-38 [facility] Comment on above: Order Comment: The A PTT is no longer used for monitoring Unfractionated Heparin Therapy. For monitoring Heparin Therapy, use the Heparin Assay. Performed By: #### 3 4529-8 ####STEFANO TROY ([id number])[facility] ([facility])[address] [place] [address] INR Coag (PPP) [Relative time] 1.3 High 0.9-1.1 [facility] Comment on above: Order Comment: The A PTT is no longer used for monitoring Unfractionated Heparin Therapy. For monitoring Heparin Therapy, use the Heparin Assay. Performed By: #### 3 4529-8 ####STEFANO TROY ([id number])[facility] ([facility])[address] [place] [address] PT Coag (PPP) [Time] 14.5 s High 9.8-12.8 [facility] Comment on above: Order Comment: The A PTT is no longer used for monitoring Unfractionated Heparin Therapy. For monitoring Heparin Therapy, use the Heparin Assay. Performed By: #### 3 4529-8 ####STEFANO TROY ([id number])[facility] ([facility])[address] [place] [address] Renal function 2000 panelon 08-10-2024 Albumin BCP dye [Mass/Vol] 3.4 g/dL Normal 3.4-5.0 [facility] Comment on above: Order Comment: On ad kareem to ICU Performed By: #### 2 4362-6 ####STEFANO TROY ([id number])[facility] ([facility])[address] [place] [address] Anion gap [Moles/Vol] 10 mmol/L Normal 10-20 [facility] Comment on above: Order Comment: On ad kareem to ICU Performed By: #### 2 4362-6 ####STEFANO TROY ([id number])[facility] ([facility])[address] [place] [address] Calcium [Mass/Vol] 7.3 mg/dL Low 8.6-10.3 [facility] Comment on above: Order Comment: On ad kareem to ICU Performed By: #### 2 4362-6 ####STEFANO TROY ([id number])[facility] ([facility])[address] [place] [address] Chloride [Moles/Vol] 112 mmol/L High 98-107 [facility] Comment on above: Order Comment: On ad kareem to ICU Performed By: #### 2 4362-6 ####STEFANO TROY ([id number])[facility] ([facility])[address] [place] [address] CO2 [Moles/Vol] 23 mmol/L Normal 21-32 [facility] Comment on above: Order Comment: On ad kareem to ICU Performed By: #### 2 4362-6 ####STEFANO TROY ([id number])[facility] ([facility])[address] [place] [address] Creatinine [Mass/Vol] 0.73 mg/dL Normal 0.50-1.05 [facility] Comment on above: Order Comment: On ad kareem to ICU Performed By: #### 2 4362-6 ####STEFANO TROY ([id number])[facility] ([facility])[address] [place] [address] Glomerular filtration rate/1.73 sq M.predicted 86 mL/min/1.73m*2 Normal >60 [facility] Comment on above: Order Comment: On ad kareem to ICU Result Comment: Calc ulations of estimated GFR are performed using the 2020 CKD-EPI Study Refit equation without the race variable for the IDMS-Traceable creatinine methods.https://jasn.asnjournals.org/content/early /ASN.6442425261 Performed By: #### 2 4362-6 ####STEFANO TROY ([id number])[facility] ([facility])[address] [place] [address] Glucose [Mass/Vol] 180 mg/dL High 74-99 [facility] Comment on above: Order Comment: On ad kareem to ICU Performed By: #### 2 4362-6 ####STEFANO TROY ([id number])[facility] ([facility])[address] [place] [address] Phosphate [Mass/Vol] 3.0 mg/dL Normal 2.5-4.9 [facility] Comment on above: Order Comment: On ad kareem to ICU Result Comment: The performance characteristics of phosphorus testing in heparinized plasma have been validated by the individual laboratory site where testing is performed. Testing on heparinized plasma is not approved by the FDA; however, such approval is not necessary. Performed By: #### 2 4362-6 ####STEFANO TROY ([id number])[facility] ([facility])[address] [place] [address] Potassium [Moles/Vol] 3.6 mmol/L Normal 3.5-5.3 [facility] Comment on above: Order Comment: On ad kareem to ICU Performed By: #### 2 4362-6 ####STEFANO TROY ([id number])[facility] ([facility])[address] [place] [address] Sodium [Moles/Vol] 141 mmol/L Normal 136-145 [facility] Comment on above: Order Comment: On ad kareem to ICU Performed By: #### 2 4362-6 ####STEFANO TROY ([id number])[facility] ([facility])[address] [place] [address] Urea nitrogen [Mass/Vol] 21 mg/dL Normal 6-23 [facility] Comment on above: Order Comment: On ad kareem to ICU Performed By: #### 2 4362-6 ####STEFANO TROY ([id number])[facility] ([facility])[address] [place] [id number] Surgical pathology studyon 10-11-2023 Surgical pathology study [facility] Comment on above: Order Comment: Pre-o p diagnosis:Aneurysm of ascending aorta without rupture ([facility]) [I71.21] VERAB/VERIFY ABORHon 024 ABO group Nom (Bld) O Normal [facility] Comment on above: Order Comment: Thi s is for confirming/verifying history of ABORh on file for transfusion of blood products. If this is not for transfusion, please order an ABO/RH [[id number]]. If you have any questions or unsure what to order, please call the blood bank. Performed By: #### V ERAB ####STEFANO TROY ([id number])[facility] ([facility])[address] [place] [address] US D Ag Ql (Bld) Positive [facility] Comment on above: Order Comment: Thi s is for confirming/verifying history of ABORh on file for transfusion of blood products. If this is not for transfusion, please order an ABO/RH [[id number]]. If you have any questions or unsure what to order, please call the blood bank. Performed By: #### V ERAB ####STEFANO TROY ([id number])[facility] (UBB)[address] [place] [id number] US XR CHEST 1 VIEWon 08-10-2024 XR CHEST 1 VIEW Normal [facility] Comment on above: Order Comment: Barney acosta in ICU Order Comment: On ar rival to ICU Blood type and Indirect anti body screen panel (Bld)on 07-29-2024 ABO group Nom (Bld) O Normal [facility] Comment on above: Performed By: #### 5 8410-2 #### ZABRINA Villalba ([id number]) [facility] ([facility]) [address] [place] [id number] Blood group antibody screen Ql Negative [facility] Comment on above: Performed By: #### 5 8410-2 #### ZABRINA Villalba ([id number]) [facility] ([facility]) [address] [place] [id number] D Ag Ql (Bld) Positive [facility] Comment on above: Result Comment: 2nd ABO test required. Order and Collect VERAB Performed By: #### 5 8410-2 #### ZABRINA Villalba ([id number]) [facility] ([facility]) [address] [place] [address] 05391 C reactive proteinon 024 CRP [Mass/Vol] mg/L Normal <1.00 [facility] Comment on above: Performed By: #### 1 988-5 #### STEFANO TROY ([id number]) [facility] ([facility]) [address] [place] [address] CBC W Auto Differential pane l (Bld)on 07-29-2024 Basophils (Bld) [#/Vol] 0.02 x10*3/uL Normal 0.00-0.10 [facility] Comment on above: Performed By: #### 5 7021-8 #### STEFANO TROY ([id number]) [facility] ([facility]) [address] [place] [address] Basophils/100 WBC (Bld) 0.4 % Normal 0.0-2.0 [facility] Comment on above: Performed By: #### 5 7021-8 #### STEFANO TROY ([id number]) [facility] ([facility]) [address] [place] [address] Eosinophils (Bld) [#/Vol] 0.15 x10*3/uL Normal 0.00-0.40 [facility] Comment on above: Performed By: #### 5 7021-8 #### STEFANO TROY ([id number]) [facility] ([facility]) [address] [place] [address] Eosinophils/100 WBC (Bld) 2.7 % Normal 0.0-6.0 [facility] Comment on above: Performed By: #### 5 7021-8 #### STEFANO TROY ([id number]) [facility] ([facility]) [address] [place] [address] Erythrocyte distribution width (RBC) [Ratio] 13.2 % Normal 11.5-14.5 [facility] Comment on above: Performed By: #### 5 7021-8 #### STEFANO TROY ([id number]) [facility] ([facility]) [facility] [place] [address] Hematocrit (Bld) [Volume fraction] 41.4 % Normal 36.0-46.0 [facility] Comment on above: Performed By: #### 5 7021-8 #### STEFANO TROY ([id number]) [facility] ([facility]) [address] [place] [address] Hemoglobin (Bld) [Mass/Vol] 12.9 g/dL Normal 12.0-16.0 [facility] Comment on above: Performed By: #### 5 7021-8 #### STEFANO TROY ([id number]) [facility] ([facility]) [address] [phone] Immature granulocytes (Bld) [#/Vol] 0.02 x10*3/uL Normal 0.00-0.50 [facility] Comment on above: Performed By: #### 5 7021-8 #### STEFANO TROY ([id number]) [facility] ([facility]) [address] [place] [address] Immature granulocytes/100 WBC (Bld) 0.4 % Normal 0.0-0.9 [facility] Comment on above: Result Comment: Laurie ture Granulocyte Count (IG) includes promyelocytes, myelocytes and metamyelocytes but does not include bands. Percent differential counts (%) should be interpreted in the context of the absolute cell counts (cells/UL). Performed By: #### 5 7021-8 #### STEFANO TROY ([id number]) [facility] ([facility]) [address] [place] [address] Lymphocytes (Bld) [#/Vol] 1.79 x10*3/uL Normal 0.80-3.00 [facility] Comment on above: Performed By: #### 5 7021-8 #### STEFANO TROY ([id number]) [facility] ([facility]) [address] [phone] Lymphocytes/100 WBC (Bld) 32.5 % Normal 13.0-44.0 [facility] Comment on above: Performed By: #### 5 7021-8 #### STEFANO TROY ([id number]) [facility] ([facility]) [address] [place], [place] [id number] MCH (RBC) [Entitic mass] 29.3 pg Normal 26.0-34.0 [facility] Comment on above: Performed By: #### 5 7021-8 #### STEFANO TROY ([id number]) [facility] ([facility]) [address] [place] [address] MCHC (RBC) [Mass/Vol] 31.2 g/dL Low 32.0-36.0 [facility] Comment on above: Performed By: #### 5 7021-8 #### STEFANO TROY ([id number]) [facility] ([facility]) [address] [place] [address] MCV (RBC) [Entitic vol] 94 fL Normal 80-100 [facility] Comment on above: Performed By: #### 5 7021-8 #### STEFANO TROY ([id number]) [facility] ([facility]) [address] [place] [address] Monocytes (Bld) [#/Vol] 0.53 x10*3/uL Normal 0.05-0.80 [facility] Comment on above: Performed By: #### 5 7021-8 #### STEFANO TROY ([id number]) [facility] ([facility]) [address] [place] [address] Monocytes/100 WBC (Bld) 9.6 % Normal 2.0-10.0 [facility] Comment on above: Performed By: #### 5 7021-8 #### STEFANO TROY ([id number]) [facility] ([facility]) [address] [place] [address] Neutrophils (Bld) [#/Vol] 3.00 x10*3/uL Normal 1.60-5.50 [facility] Comment on above: Result Comment: Perc ent differential counts (%) should be interpreted in the context of the absolute cell counts (cells/uL). Performed By: #### 5 7021-8 #### STEFANO TROY ([id number]) [facility] ([facility]) [address] [place] [address] Neutrophils/100 WBC (Bld) 54.4 % Normal 40.0-80.0 [facility] Comment on above: Performed By: #### 5 7021-8 #### STEFANO RTOY ([id number]) [facility] ([facility]) [address] [place] [address] Nucleated RBC/100 WBC (Bld) [Ratio] 0.0 /100 WBCs Normal 0.0-0.0 [facility] Comment on above: Performed By: #### 5 7021-8 #### STEFANO TROY ([id number]) [facility] ([facility]) [address] [place] [address] Platelets (Bld) [#/Vol] 317 x10*3/uL Normal 150-450 [facility] Comment on above: Performed By: #### 5 7021-8 #### STEFANO TROY ([id number]) [facility] ([facility]) [address] [place] [address] RBC (Bld) [#/Vol] 4.41 x10*6/uL Normal 4.00-5.20 [facility] Comment on above: Performed By: #### 5 7021-8 #### STEFANO TROY ([id number]) [facility] ([facility]) [address] [place] [address] WBC (Bld) [#/Vol] 5.5 x10*3/uL Normal 4.4-11.3 [facility] Comment on above: Performed By: #### 5 7021-8 #### STEFANO TROY ([id number]) [facility] ([facility]) [address] [place] [address] Comprehensive metabolic 2000 panelon 07-29-2024 Albumin BCP dye [Mass/Vol] 4.5 g/dL Normal 3.4-5.0 [facility] Comment on above: Performed By: #### 2 4323-8 #### STEFANO TROY ([id number]) [facility] ([facility]) [address] [place] [address] ALP [Catalytic activity/Vol] 85 U/L Normal 33-136 [facility] Comment on above: Performed By: #### 2 4323-8 #### STEFANO TROY ([id number]) [facility] ([facility]) [address] [place] [address] ALT With P-5'-P [Catalytic activity/Vol] 17 U/L Normal 7-45 [facility] Comment on above: Result Comment: Kassy ents treated with Sulfasalazine may generate falsely decreased results for ALT. Performed By: #### 2 4323-8 #### STEFANO TROY ([id number]) [facility] ([facility]) [address] [phone] Anion gap [Moles/Vol] 10 mmol/L Normal 10-20 [facility] Comment on above: Performed By: #### 2 4323-8 #### STEFANO TROY ([id number]) [facility] ([facility]) [address] [phone] AST With P-5'-P [Catalytic activity/Vol] 18 U/L Normal 9-39 [facility] Comment on above: Performed By: #### 2 4323-8 #### STEFANO TROY ([id number]) [facility] ([facility]) [address] [place] [address] Bilirubin [Mass/Vol] 0.7 mg/dL Normal 0.0-1.2 [facility] Comment on above: Performed By: #### 2 4323-8 #### STEFANO TROY ([id number]) [facility] ([facility]) [address] [place] [address] Calcium [Mass/Vol] 9.6 mg/dL Normal 8.6-10.3 [facility] Comment on above: Performed By: #### 2 4323-8 #### STEFANO TROY ([id number]) [facility] ([facility]) [address] [place] [address] Chloride [Moles/Vol] 104 mmol/L Normal 98-107 [facility] Comment on above: Performed By: #### 2 4323-8 #### STEFANO TROY ([id number]) [facility] ([facility]) [address] [place] [address] CO2 [Moles/Vol] 28 mmol/L Normal 21-32 [facility] Comment on above: Performed By: #### 2 4323-8 #### STEFANO TROY ([id number]) [facility] ([facility]) [address] [place] [address] Creatinine [Mass/Vol] 0.89 mg/dL Normal 0.50-1.05 [facility] Comment on above: Performed By: #### 2 4323-8 #### STEFANO TROY ([id number]) [facility] ([facility]) [address] [place] [address] Glomerular filtration rate/1.73 sq M.predicted 68 mL/min/1.73m*2 Normal >60 [facility] Comment on above: Result Comment: Calc ulations of estimated GFR are performed using the 2020 CKD-EPI Study Refit equation without the race variable for the IDMS-Traceable creatinine methods. https://jasn.asnjournals.org/content///ASN.930 4256609 Performed By: #### 2 4323-8 #### STEFANO TROY ([id number]) [facility] ([facility]) [address] [place] [address] Glucose [Mass/Vol] 105 mg/dL High 74-99 [facility] Comment on above: Performed By: #### 2 4323-8 #### STEFANO TROY ([id number]) [facility] ([facility]) [address] [place] [address] Potassium [Moles/Vol] 4.5 mmol/L Normal 3.5-5.3 [facility] Comment on above: Performed By: #### 2 4323-8 #### STEFANO TROY ([id number]) [facility] ([facility]) [address] [place] [address] Protein [Mass/Vol] 6.7 g/dL Normal 6.4-8.2 [facility] Comment on above: Performed By: #### 2 4323-8 #### STEFANO TROY ([id number]) [facility] ([facility]) [address] [place] [address] Sodium [Moles/Vol] 137 mmol/L Normal 136-145 [facility] Comment on above: Performed By: #### 2 4323-8 #### STEFANO TROY ([id number]) [facility] ([facility]) [address] [place] [address] Urea nitrogen [Mass/Vol] 29 mg/dL High 6-23 [facility] Comment on above: Performed By: #### 2 4323-8 #### STEFANO TROY ([id number]) [facility] ([facility]) [address] [place] [address] ECG 12-LEADon 07-29-2024 ECG 12-LEAD Ventricular Rate 59 Atrial Rate 59 P-R Interval 182 QRS Duration 86 Q-T Interval 428 QTC Calculation(Bazett) 423 P Seward 44 R Seward 2 T Seward 12 QRS Count 10 Q Onset 220 P Onset 129 P Offset 200 T Offset 434 QTC Fredericia 425 Diagnosis Sinus bradycardia Nonspecific ST and T wave abnormality Abnormal ECG No previous ECGs available Confirmed by Santo Hargrove ([id number]) on 07/29/2024 2:34:55 PM Normal [facility] PT and aPTT panel Coag (PPP) on 07-29-2024 aPTT Coag (PPP) [Time] 34 s Normal 27-38 Un [facility] Comment on above: Order Comment: The A PTT is no longer used for monitoring Unfractionated Heparin Therapy. For monitoring Heparin Therapy, use the Heparin Assay. Performed By: #### 3 4529-8 #### STEFANO TROY ([id number]) [facility] ([facility]) [address] [place] [address] INR Coag (PPP) [Relative time] 1.0 Normal 0.9-1.1 [facility] Comment on above: Order Comment: The A PTT is no longer used for monitoring Unfractionated Heparin Therapy. For monitoring Heparin Therapy, use the Heparin Assay. Performed By: #### 3 4529-8 #### STEFANO TROY ([id number]) [facility] ([facility]) [address] [place] [address] PT Coag (PPP) [Time] 11.2 s Normal 9.8-12.8 [facility] Comment on above: Order Comment: The A PTT is no longer used for monitoring Unfractionated Heparin Therapy. For monitoring Heparin Therapy, use the Heparin Assay. Performed By: #### 3 4529-8 #### STEFANO TROY ([id number]) [facility] ([facility]) [address] [phone] Staphylococcus aureus.methic illin resistant isolateon 07-29-2024 MRSA isol Org specific cx Ql (Nose) Normal [facility] Comment on above: Performed By: #### 5 2969-3 ####ZABRINA Villalba ([id number])[facility] ([facility])[address] [place] [address] Urinalysis complete W Reflex Culture panel (U)on 07-29-2024 Appearance (U) Clear Normal Clear [facility] Comment on above: Performed By: #### 5 8077-9 #### STEFANO TROY ([id number]) [facility] ([facility]) [address] [place] [address] Bilirubin (U) [Mass/Vol] Negative Normal NEGATIVE [facility] Comment on above: Performed By: #### 5 8077-9 #### STEFANO TROY ([id number]) [facility] ([facility]) [address] [place] [address] Color (U) Light-Yellow Normal Light-Yellow , Yellow, Dark-Yellow [facility] Comment on above: Performed By: #### 5 8077-9 #### STEFANO TROY ([id number]) [facility] ([facility]) [address] [place] [address] Epithelial cells.squamous Auto (Urine sed) [#/Area] 1-9 (SPARSE) Normal Reference range not established. [facility] Comment on above: Performed By: #### 5 8077-9 #### STEFANO TROY ([id number]) [facility] ([facility]) [address] [place] [address] Glucose Auto test strip (U) [Mass/Vol] Normal Normal Normal [facility] Comment on above: Performed By: #### 5 8077-9 #### STEFANO TROY ([id number]) [facility] ([facility]) [address] [place], [place] [phone] Ketones (U) [Mass/Vol] Negative Normal NEGATIVE [facility] Comment on above: Performed By: #### 5 8077-9 #### STEFANO TROY ([id number]) [facility] ([facility]) [address] [place], [place] [phone] Leukocyte esterase Auto test strip Ql (U) Negative Normal NEGATIVE [facility] Comment on above: Performed By: #### 5 8077-9 #### STEFANO TROY ([id number]) [facility] ([facility]) [address] [place], [place] [phone] Mucus Auto (Urine sed) [#/Area] FEW Normal Reference range not established. [facility] Comment on above: Performed By: #### 5 8077-9 #### STEFANO TROY ([id number]) [facility] ([facility]) [address] [place], [place] [address] Nitrite Auto test strip Ql (U) Negative Normal NEGATIVE [facility] Comment on above: Performed By: #### 5 8077-9 #### STEFANO TROY ([id number]) [facility] ([facility]) [address] [place] [address] pH (U) 5.5 [pH] Normal 5.0, 5.5, 6.0, 6.5, 7.0, 7.5, 8.0 [facility] Comment on above: Performed By: #### 5 8077-9 #### STEFANO TROY ([id number]) [facility] ([facility]) [address] [place] [address] Protein (U) [Mass/Vol] 10 (TRACE) Normal NEGAT ELLEN, 10 (TRACE), 20 (TRACE) [facility] Comment on above: Performed By: #### 5 8077-9 #### STEFANO TROY ([id number]) [facility] ([facility]) [address] [place] [address] RBC (U) [#/Vol] Negative Normal NEGATIVE [facility] Comment on above: Performed By: #### 5 8077-9 #### STEFANO TROY ([id number]) [facility] ([facility]) [address] [place] [address] RBC Auto (Urine sed) [#/Area] 1-2 Normal NONE, 1-2, 3-5 [facility] Comment on above: Performed By: #### 5 8077-9 #### STEFANO TROY ([id number]) [facility] ([facility]) [address] [place], [place] [address] Specific gravity (U) [Rel density] 1.029 Normal 1.005-1.035 [facility] Comment on above: Performed By: #### 5 8077-9 #### STEFANO TROY ([id number]) [facility] ([facility]) [address] [place] [address] Urobilinogen (U) [Mass/Vol] Normal Normal Normal [facility] Comment on above: Performed By: #### 5 8077-9 #### STEFANO TROY ([id number]) [facility] ([facility]) [address] [place] [address] WBC Auto (Urine sed) [#/Area] 1-5 Normal 1-5, NONE [facility] Comment on above: Performed By: #### 5 8077-9 #### STEFANO SYDNI ([id number]) [facility] ([facility]) [address] [place] [address] XR CHEST 2 VIEWSon XR CHEST 2 VIEWS Normal [facility] DAVID SCREENING W TOMOon 07-23 DAVID SCREENING W OSVALDO * * *Final Report* * * DATE OF EXAM: Jul 23 2024 9:38AM WRW [id number] - DAVID SCREENING W OSVALDO / PROCEDURE REASON: Screening mammogram for breast cancer * * * * Physician Interpretation * * * * RESULT: [address] [address] HISTORY: Patient is 73 years old and [...] Abraham Garrison M.D. Electronically signed on: 07/24/2024 Help Desk Specialist: JOANN Transcribe Date/Time: Nov 14 2024 9:07A Dictated by: ABRAHAM GARRISON MD This examination was interpreted and the report reviewed and electronically signed by: ABRAHAM GARRISON MD on Jul 24 2024 4:33PM EST [id number] Normal [facility] CARDIAC CATHETERIZATION PROC EDUREon 06-09-2024 CARDIAC CATHETERIZATION PROCEDURE Normal [facility] Cardiac catheterization stud yon 06-09-2024 Formerly Named [facility], Money Order Clerk, [address] [place] [address] Cardiovascular Catheterization Report Patient Name: KARLA CAI Performing Physician: [id number] Hendrix MD Study Date: 06/09/2024 Verifying Physician: [id number] Hendrix MD MRN/PID: [id number] Negative Cutter/Co-Scrub: Ordering Provider: [id number] JOAQUIM GALLOWAY Date of /Age: 3 1950 / 73 years Negative Cutter: Gender: F Fellow: Surgeon: Study: Left Heart [...] a modified Seldinger technique. Subsequently a 6 [place] sheath was placed retrograde in the right [...] discontinue smoking. ___ (more content not included)... SYNGO Gillombardo, Flaquita B, MD - 06/09/2024 Formerly Named [facility], Money Order Clerk, [address] [place] [address] Cardiovascular Catheterization Report Patient Name: KARLA CAI Performing Physician: [id number] Hendrix MD Study Date: 06/09/2024 Verifying Physician: [id number] Hendrix MD MRN/PID: [id number] Negative Cutter/Co-Scrub: Ordering Provider: [id number] JOAQUIM GALLOWAY Date of /Age: 3 1950 / 73 years Negative Cutter: Gender: F Fellow: Surgeon: Study: Left Heart [...] a modified Seldinger technique. Subsequently a 6 [place] sheath was placed retrograde in the right [...] Left Heart Cath (visualization of coronaries) and [id number] Car (more content not included)... [facility] Work Phone: Cardiac catheterization stud yOrdered By: Flaquita Hendrix on 06-09-2024 [facility] Work Phone: Basic metabolic 2000 panelon 06-03-2024 Anion gap [Moles/Vol] 14 mmol/L Normal 10-20 [facility] Comment on above: Performed By: #### 2 4321-2 #### ZABRINA Villalba ([id number]) [facility] ([facility]) [address] [place] [address] Calcium [Mass/Vol] 9.9 mg/dL Normal 8.6-10.6 [facility] Comment on above: Performed By: #### 2 4321-2 #### ZABRINA POLANCO L ([id number]) [facility] ([facility]) [address] [place] [address] Chloride [Moles/Vol] 103 mmol/L Normal 98-107 [facility] Comment on above: Performed By: #### 2 4321-2 #### ZABRINA BRICEÑOMOTZER L ([id number]) [facility] ([facility]) [address] [place] [address] CO2 [Moles/Vol] 26 mmol/L Normal 21-32 [facility] Comment on above: Performed By: #### 2 4321-2 #### ZABRINA POLANCO L ([id number]) [facility] ([facility]) [address] [place] [address] Creatinine [Mass/Vol] 1.09 mg/dL High 0.50-1.05 [facility] Comment on above: Performed By: #### 2 4321-2 #### ZABRINA BRICEÑOMOTZER L ([id number]) [facility] ([facility]) [address] [place] [address] Glomerular filtration rate/1.73 sq M.predicted 53 mL/min/1.73m*2 Low >60 [facility] Comment on above: Result Comment: Calc ulations of estimated GFR are performed using the 2020 CKD-EPI Study Refit equation without the race variable for the IDMS-Traceable creatinine methods. https://jasn.asnjournals.org/content//ASN.831 0881833 Performed By: #### 2 4321-2 #### ZABRINA Villalba ([id number]) [facility] ([facility]) [address] [place] [address] Glucose [Mass/Vol] 103 mg/dL High 74-99 [facility] Comment on above: Performed By: #### 2 4321-2 #### ZABRINA Villalba ([id number]) [facility] ([facility]) [address] [place] [address] Potassium [Moles/Vol] 4.2 mmol/L Normal 3.5-5.3 [facility] Comment on above: Performed By: #### 2 4321-2 #### ZABRINA POLANCO L ([id number]) [facility] ([facility]) [address] [place] [address] Sodium [Moles/Vol] 139 mmol/L Normal 136-145 [facility] Comment on above: Performed By: #### 2 4321-2 #### ZABRINA POLANCO L ([id number]) [facility] ([facility]) [address] [place] [address] Urea nitrogen [Mass/Vol] 32 mg/dL High 6-23 [facility] Comment on above: Performed By: #### 2 4321-2 #### ZABRINA POLANCO L ([id number]) [facility] ([facility]) [address] [place] [address] CBC panel Auto (Bld)on 06-03 Erythrocyte distribution width (RBC) [Ratio] 12.9 % Normal 11.5-14.5 [facility] Comment on above: Performed By: #### 5 8410-2 #### ZABRINA Villalba ([id number]) [facility] ([facility]) [address] [place] [address] Hematocrit (Bld) [Volume fraction] 41.8 % Normal 36.0-46.0 [facility] Comment on above: Performed By: #### 5 8410-2 #### ZABRINA Villalba ([id number]) [facility] ([facility]) [address] [place] [address] Hemoglobin (Bld) [Mass/Vol] 13.5 g/dL Normal 12.0-16.0 [facility] Comment on above: Performed By: #### 5 8410-2 #### ZABRINA Villalba ([id number]) [facility] ([facility]) [address] [place] [address]39 MCH (RBC) [Entitic mass] 30.1 pg Normal 26.0-34.0 [facility] Comment on above: Performed By: #### 5 8410-2 #### ZABRINA Villalba ([id number]) [facility] ([facility]) [address] [place] [address]56[address] MCHC (RBC) [Mass/Vol] 32.3 g/dL Normal 32.0-36.0 [facility] Comment on above: Performed By: #### 5 8410-2 #### ZABRINA Villalba ([id number]) [facility] ([facility]) [address] [place] [address] MCV (RBC) [Entitic vol] 93 fL Normal 80-100 [facility] Comment on above: Performed By: #### 5 8410-2 #### ZABRINA Villalba ([id number]) [facility] ([facility]) [address] [place] [address] 067[address] Nucleated RBC/100 WBC (Bld) [Ratio] 0.0 /100 WBCs Normal 0.0-0.0 [facility] Comment on above: Performed By: #### 5 8410-2 #### ZABRINA Villalba ([id number]) [facility] ([facility]) [address] [place] [address] Platelets (Bld) [#/Vol] 364 x10*3/uL Normal 150-450 [facility] Comment on above: Performed By: #### 5 8410-2 #### ZABRINA Villalba ([id number]) [facility] ([facility]) [address] [place] [address] RBC (Bld) [#/Vol] 4.49 x10*6/uL Normal 4.00-5.20 [facility] Comment on above: Performed By: #### 5 8410-2 #### ZABRINA Villalba ([id number]) [facility] ([facility]) [id number] [place] [id number] WBC (Bld) [#/Vol] 6.3 x10*3/uL Normal 4.4-11.3 [facility] Comment on above: Performed By: #### 5 8410-2 #### ZABRINA Villalba ([id number]) [facility] ([facility]) [address] [place] [id number] PT and aPTT panel Coag (PPP) on 06-03-2024 aPTT Coag (PPP) [Time] 36 s Normal 27-38 [facility] Comment on above: Order Comment: The A PTT is no longer used for monitoring Unfractionated Heparin Therapy. For monitoring Heparin Therapy, use the Heparin Assay. Performed By: #### 3 4529-8 #### ZABRINA Villalba ([id number]) [facility] ([facility]) [id number] [place] [id number] INR Coag (PPP) [Relative time] 1.0 Normal 0.9-1.1 [facility] Comment on above: Order Comment: The A PTT is no longer used for monitoring Unfractionated Heparin Therapy. For monitoring Heparin Therapy, use the Heparin Assay. Performed By: #### 3 4529-8 #### ZABRINA Villalba ([id number]) [facility] ([facility]) [id number] [place] [address]396 PT Coag (PPP) [Time] 11.8 s Normal 9.8-12.8 [facility] Comment on above: Order Comment: The A PTT is no longer used for monitoring Unfractionated Heparin Therapy. For monitoring Heparin Therapy, use the Heparin Assay. Performed By: #### 3 4529-8 #### ZABRINA Villalba ([id number]) [facility] ([facility]) [id number] [place] [address] TRANSTHORACIC ECHO (TTE) COM PLETEon 06-03-2024 TRANSTHORACIC ECHO (TTE) COMPLETE [facility], [address] [place] [address], [address], [place], [place] [address] and TRANSTHORACIC ECHOCARDIOGRAM REPORT Patient Name: KARLA BENITEZ Hancock Physician: [id number] Rob Jones MD Study Date: 06/03/2024 Ordering Provider: [id number] JOAQUIM GALLOWAY MRN/PID: [id number] Fellow: Nurse: Date of /Age: 3 1950 / 73 years Networks Software Consultant: Yenny Vyas RDCS Gender: F Additional Staff: Height: 175.26 cm Admit Date: Weight: 78.02 kg Admission Status: Outpatient BSA / BMI: 1.94 m2 / 25.40 kg/m2 Blood Pressure: 120/63 mmHg Department Location: [facility] Study Type: TRANSTHORACIC ECHO (TTE) COMPLETE Diagnosis/ICD: 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 [facility] CNOVon 05-29-2024 CNOV Office Visit (INTMWS ) KARLA CAI ([id number]) 1950 F Date Time Provider Department 05/29/24 10:40 AM JAE BELCHER INTMWS During your visit today, we recorded the following information about you: Temperature Pulse Respiration Blood pressure 97.7 degrees 68/minute 18/minute 118/78 Weight 77.7 kg Jae Belcher MD 05/29/2024 2:00 PM Signed This note was created using m-spatial. Subjective Patient presents with: F/U 3 Month [...] Her vascular specialist referred her to in [place] for consideration of thoracic aneurysm repair. Review [...] to each eye twice daily as needed jn-jyg-raywt-calcium carb-K1 (WOMEN'S 50 PLUS MULTIVITAMIN) 400 mcg-500 [...] 441.2, ICD10: I71.21 - Evaluation ongoing at [facility]. Jae Belcher MD Allergies A (more content not included)... Normal [facility] HEMOGLOBIN A1C (POC)on 05-29 HbA1c (Bld) [Mass fraction] 5.9 % Abnormal 4.3 - 5.6 % [facility] Comment on above: Location:[facility], [address] [place] [address], [place], [address] Point of care (POC) Hemoglobin A1c (HGBA1C) [...] specific diabetes management situations: The POC device movie producer provides a normal range of 4.2% to 6.5% for the HGBA1C POC test. However, the [place] Diabetes Association guidelines indicate that patients with [...] Interpretation and review of laboratory results Abnormal [facility] UA DIP, URINE (POC)on 2023 BILIRUBIN UA (POCT) Negative Negative [facility] CLARITY UA (POCT) Cloudy [facility] COLOR UA (POCT) Other [facility] GLUCOSE UA (POCT) Negative Negative mg/dL [facility] Hemoglobin Ql (U) Trace-intact Abnormal Negative [facility] Interpretation and review of laboratory results Abnormal [facility] KETONE UA (POCT) Trace Negative mg/dL [facility] LEUKOCYTES UA (POCT) Small Abnormal Negative [facility] NITRITE UA (POCT) Negative Negative [facility] PH UA (POCT) 5.5 4.5 - 8.0 [facility] Protein Ql (U) 100 mg/dL Abnormal Negative [facility] SPECIFIC GRAVITY UA (POCT) >=1.030 1.005 - 1.030 [facility] UROBILINOGEN UA (POCT) 0.2 Ashley l E.U./dL [facility] Location:[address], [place], [place], [address] [place] [address] POINT OF CARE [facility] 05-23-2024 [facility] ([facility]) KARLA CAI ([id number]) 1950 F Date Time Provider Department 05/23/24 CLARIBEL HOOPER [facility] During your visit today, we recorded the following information about you: Claribel Hooper APRN.ENVIRONMENTAL SYSTEMS COORDINATOR 05/23/2024 3:17 PM Signed Please call patient [...] Signed Patient active MyChart. Patient notified via [employer] message. Chad Delgado MA Allergies As of [...] 1 tablet by mouth once daily. Per [facility] - VITAMIN A ORAL Take [...] Status:Closed by CHAD DELGADO on 05/25/24 Normal [facility] Echocardiogram Non Bill Outs adam Study Onlyon 05-22-2024 Study performed outside the system. Official study report is not available here and may be obtained from the performing facility. [facility] Work Phone: Bacteria Ur Culton 4 [...] , Intermediate >32 , Resistant >64 Abnormal [facility] Comment on above: Performed By: #### 6 30-4 #### [facility] [place] [id number] [address] [place] [address] [place] CNOVon 05-20-2024 CNOV Office Visit (UCWSTR ) KARLA CAI ([id number]) 1950 F Date Time Provider Department 05/20/24 11:45 AM TORRI FERRER WSTR During your visit today, we recorded the following information about you: Temperature Pulse Respiration Blood pressure 98.7 degrees 68/minute 16/minute 124/70 Weight 79.6 kg Torri Ferrer PA 05/20/2024 11:40 AM Signed This note was created using Islet Sciencester. Subjective Karla Cai is a 73 year [...] COLONOSCOPY Comment: Per repeat in 10 yrs (1-2013) 08/08/2018: COLONOSCOPY [...] 1 tablet by mouth once daily. Per [facility] VITAMIN A ORAL Take 400 [...] rhythm. Pulmonary: (more content not included)... Normal [facility] UA DIP, URINE (POC)on 2023 BILIRUBIN UA (POCT) Small Abnormal Negative [facility] CLARITY UA (POCT) Cloudy [facility] COLOR UA (POCT) Dark yellow [facility] GLUCOSE UA (POCT) Negative Negative mg/dL [facility] Hemoglobin Ql (U) Large Abnormal Negative [facility] Interpretation and review of laboratory results Abnormal [facility] KETONE UA (POCT) Trace Negative mg/dL [facility] LEUKOCYTES UA (POCT) Small Abnormal Negative [facility] NITRITE UA (POCT) Negative Negative [facility] PH UA (POCT) 5.5 4.5 - 8.0 [facility] Protein Ql (U) >=300 Abnormal Negative mg/dL [facility] SPECIFIC GRAVITY UA (POCT) >=1.030 1.005 - 1.030 [facility] UROBILINOGEN UA (POCT) 0.2 Ashley l E.U./dL [facility] Location:[facility], [address] [place] [address], [place], [place], [address] [place] [address] POINT OF CARE [facility] CTA Chst, Abd, Pel W and/or WOon 05-05-2024 CTA Chst, Abd, Pel W and/or WO [facility] Imaging Services [address] [place] [address] CTA Chst, Abd, Pel W and/or WO MR#: [id number] Acct: [id number] Name: KARLA CAI Rep #: [id number] : 1950 F 73 From: Tan lechuga MD PCP: Dr. Jae Belcher MD Status: REG CLI Study: CTA Chst, Abd, Pel W and/or WO Date of Exam: 0 05/05/24 Exam# [id number] Ordering Dr: Roman Alberto [place] [id number] INDICATION: aortic aneurysm EXAMINATION: CTA CHEST, ABDOMEN [...] Roman Alberto MD; Dr. Jae Belcher MD Help Desk Specialist: Signed Normal [facility] 03-23-2024 [facility] Telephone (INTTorqBakWS) KARLA CAI ([id number]) 1950 F Date Time Provider Department 03/23/24 JAE BELCHER INTARLEY During your visit today, we recorded the [...] Status:Closed by TEODORO ROCA on 03/24/24 Normal [facility] US KIDNEY/BLADDERon 03-19-20 US KIDNEY/BLADDER * [...] distended. IMPRESSION: No hydronephrosis or echogenic calculus. Help Desk Specialist: VANDANA Transcribe Date/Time: Mar 21 2024 9:41A Dictated by : JASE DUMAS MD This examination was interpreted and the report reviewed and electronically signed by: JASE DUMAS MD on Mar 21 2024 9:42AM EST [id number] Normal [facility] CNNURSEon 03-11-2024 CNNURSE Nurse Visit (ENDIMT) KARLA CAI ([id number]) 1950 F Date Time Provider Department 03/11/24 1:00 PM ABDIFATAH AVELAR During your visit today, we recorded the following information about you: Abdifatah Avelar RN 03/11/2024 1:34 PM Signed DIABETES CARE AND EDUCATION VISIT Location: [place] Type of visit: In person individual PATIENT'S [...] TIME: 12:45 PM Referring Provider: JAE BELCHER [[id number]] Allergies As of Date: 03/11/2024 Noted Allergy [...] 1 tablet by mouth once daily. Per [facility] - VITAMIN A ORAL Take [...] Encounter Status:Closed by ABDIFATAH AVELAR on 03/11/24 Normal [facility] CNOVon 02-25-2024 CNOV Office Visit (INTMWS ) KARLA CAI ([id number]) 1950 F Date Time Provider Department 02/25/24 9:20 AM JAE BELCHER INTMWS During your visit today, we recorded the following information about you: Temperature Pulse Respiration Blood pressure 97.7 degrees 64/minute 16/minute 120/78 Weight 80.3 kg Jae Belcher MD 02/26/2024 12:07 AM Signed This note was created using NoteWriter. Subjective Karla Cai is a 73 year [...] complication, without long-term current use of insulin ([facility]) - ICD9: 250.00, ICD10: E11.9 (primary diagnosis) - New diagnosis - Discussed diabetic education issues of diabetes complications and monitoring required, medication-specific side effects and monitoring. - Shared Medical Decision Making was done: Medication: Options include Jardiance, Ozempic, metformin. 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 Risks: Possible side effects were discussed including , GI. Possible interactions: n/a. Warnings: discussed. Approved use or off label use: approved. Option as above. Cost: high Prior approval may be needed. We agreed to monitor only for now and she will focus on low carb diet. She declined self glucose monitoring. - CONSULT TO DIABETES EDUCATION DSME/MNT 2. Chronic renal impairment, stage 3a ([facility]) - ICD9: 585.3, ICD10: N18.31 - eGFR: [...] pedal edema Date Reviewed: 02/25/2024 Reviewed by: Eddie, Faiza E, HUMAN RESOURCE INTERN - Fully Assessed Reason for Visit: F/U 6 months [1177] Primary Visit Diagnosis:Controlled type 2 diabetes mellitus without complication, without long-term current use of insulin (HCC) [E11.9] Oth (more content not included)... Normal [facility] Basic metabolic 2000 panelon 02-24-2024 Anion gap [Moles/Vol] 12 mmol/L Normal 8-[address] [facility] Comment on above: Order Comment: Speci men Type: BLOOD SPECIMEN Ordering Facility: [facility] Address: [address] [place] [address] Performed By: #### 5 5454-3 #### [facility] CLIA [id number] [address] [place] [address] [place] Calcium [Mass/Vol] 10.0 mg/dL Normal 8.5-10.2 [facility] Comment on above: Order Comment: Speci men Type: BLOOD SPECIMEN Ordering Facility: [facility] Address: [address] [place] [address] Performed By: #### 5 5454-3 #### [facility] CLIA [id number] [address] [place] [address] [place] Chloride [Moles/Vol] 103 mmol/L Normal 98-107 [facility] Comment on above: Order Comment: Speci men Type: BLOOD SPECIMEN Ordering Facility: [facility] Address: [address] [place] [address] Performed By: #### 5 5454-3 #### [facility] CLIA [id number] [address] [place] [address] [place] CO2 [Moles/Vol] 21 mmol/L Low 22-30 [facility] Comment on above: Order Comment: Speci men Type: BLOOD SPECIMEN Ordering Facility: [facility] Address: [address] [place] [address] Performed By: #### 5 5454-3 #### [facility] CLIA [id number] [address] [place] [address] [place] Creatinine [Mass/Vol] 0.91 mg/dL Normal 0.58-0.[address] [facility] Comment on above: Order Comment: Jethro bergman Type: BLOOD SPECIMEN Ordering Facility: [facility] Address: [address] [place] [address] Performed By: #### 5 5454-3 #### [facility] CLIA [id number] [address] [place] [address] [place] Creatinine and Glomerular filtration rate.predicted panel (S/P/Bld) 66 mL/min/1.73m??? Normal >=60 [facility] Comment on above: Order Comment: Jethro bergman Type: BLOOD SPECIMEN Ordering Facility: [facility] Address: [address] [place] [address] Result Comment: Inocencia mated Glomerular Filtration Rate [...] GFR. Performed By: #### 5 5454-3 #### [facility] CLIA [id number] [address] [place] [address] [place] Glucose [Mass/Vol] 129 mg/dL High 74-99 [facility] Comment on above: Order Comment: Jethro bergman Type: BLOOD SPECIMEN Ordering Facility: [facility] Address: [address] [place] [address] Result Comment: The [place] Diabetes Association (ADA) provides guidance for cutoff [...] Standards of Medical Care in Diabetes 2016, [place] Diabetes Association. Diabetes Care. 2016.39(Suppl 1). Performed By: #### 5 5454-3 #### [facility] CLIA [id number] [address] [place] [address] [place] Potassium [Moles/Vol] 4.0 mmol/L Normal 3.7-5.[address] [facility] Comment on above: Order Comment: Jethro men Type: BLOOD SPECIMEN Ordering Facility: [facility] Address: [address] [place] [address] Performed By: #### 5 5454-3 #### [facility] CLIA [id number] [address] [place] [address] [place] Sodium [Moles/Vol] 136 mmol/L Normal 136-144 [facility] Comment on above: Order Comment: Jethro bergman Type: BLOOD SPECIMEN Ordering Facility: [facility] Address: [address] [place] [address] Performed By: #### 5 5454-3 #### [facility] CLIA [id number] [address] [place] [address] [place] Urea nitrogen [Mass/Vol] 31 mg/dL High 7-21 [facility] Comment on above: Order Comment: Jethro bergman Type: BLOOD SPECIMEN Ordering Facility: [facility] Address: [address] [place] [address] Performed By: #### 5 5454-3 #### [facility] CLIA [id number] [address] [place] [address] [place] HbA1c (Bld)on 02-24-2024 Average glucose Estimated from glycated hemoglobin (Bld) [Mass/Vol] 128 mg/dL Normal [facility] Comment on above: Order Comment: Jethro bergman Type: BLOOD SPECIMEN Ordering Facility: [facility] Address: [address] [place] [address] Result Comment: eAG: (Estimated average glucose) is a calculated value from HgbA1c and is procurement representative of the average blood glucose level in the last 2-3 month period. Performed By: #### 5 5454-3 #### [facility] CLIA [id number] [address] [place] [address] [place] HbA1c (Bld) [Mass fraction] 6.1 % High 4.3-5.6 [facility] Comment on above: Order Comment: Speci men Type: BLOOD SPECIMEN Ordering Facility: [facility] Address: [address] [place] [address] [place] [address] Result Comment: Amer [place] Diabetes Association guidelines indicate that patients with HgbA1c in the range 5.7-6.4% are at increased risk for development of diabetes, and intervention by lifestyle modification may be beneficial. HgbA1c greater or equal to 6.5% is considered diagnostic of diabetes. Performed By: #### 5 5454-3 #### [facility] CLIA [id number] [address] [place] [address] [place] CNPNon 02-17-2024 CNPN Telephone (INTMWS) KARLA CAI ([id number]) 1950 F Date Time Provider Department 02/17/24 [...] Visit Diagnosis:Screening mammogram for breast cancer [Z12.31] Order(s):[facility] SCREENING W OSVALDO [[id number]] Order #: [id number] FUTURE Prescriptions as of 02/17/2024 - irbesartan [...] 1 tablet by mouth once daily. Per [facility] - VITAMIN A ORAL Take [...] Encounter Status:Closed by JAE BELCHER on 02/17/24 Normal [facility] CNOVon 01-02-2024 CNOV Office Visit (PODIWS ) KARLA CAI ([id number]) 1950 F Date Time Provider Department 01/02/24 1:45 PM AMANDA FLEMING During your visit today, we recorded the [...] Maternal Grandmother (more content not included)... Normal [facility] XR FOOT 3V AP/LAT/OBL BILon 01-02-2024 [...] erosions. IMPRESSION: Advanced first MTP degenerative changes. Help Desk Specialist: PSCB Transcribe Date/Time: Jan 09 2024 7:31A Dictated by : STACI MONTGOMERY MD This examination was interpreted and the report reviewed and electronically signed by: STACI MONTGOMERY MD on Jan 09 2024 7:31AM EST [id number] Normal [facility] 12-19-2023 CNPN Telephone (INTMWS) KARLA CAI ([id number]) 1950 F Date Time Provider Department 12/19/23 JAE BELCHER INTWS During your visit today, we recorded the following information about you: Sonia Juares RN 12/19/2023 8:57 AM Signed Patient calls to [...] Fully Assessed Reason for Visit: Patient Question [5949] Prescriptions as of 12/19/2023 - irbesartan (AVAPRO) [...] Status:Closed by JAE BELCHER on 12/19/23 Normal [facility] Basic metabolic 2000 panelon 11-15-2023 Anion gap [Moles/Vol] 12 mmol/L Normal 9-[address] [facility] Comment on above: Order Comment: Speci men Type: BLOOD SPECIMENOrdering Facility: [facility] Address: [address] [place] [address] Performed By: #### 2 4321-2 ####[facility] [id number] [place] [address] [place] Calcium [Mass/Vol] 10.1 mg/dL Normal 8.5-10.2 [facility] Comment on above: Order Comment: Speci men Type: BLOOD SPECIMENOrdering Facility: [facility] Address: [address] [place] [address] Performed By: #### 2 4321-2 ####[facility] TAMRA MILLWNCLIA [id number] [place] [address] [place] Chloride [Moles/Vol] 102 mmol/L Normal 97-105 [facility] Comment on above: Order Comment: Speci men Type: BLOOD SPECIMENOrdering Facility: [facility] Address: [address] [place] [address] Performed By: #### 2 4321-2 ####[facility] TAMRA KATHERINWNCLIA [id number] [address] [place] CO2 [Moles/Vol] 22 mmol/L Normal 22-30 [facility] Comment on above: Order Comment: Speci men Type: BLOOD SPECIMENOrdering Facility: [facility] Address: [address] [place] [address] Performed By: #### 2 4321-2 ####[facility] [id number] [address] [place] Creatinine [Mass/Vol] 1.05 mg/dL High 0.58-0.[address] [facility] Comment on above: Order Comment: Speci men Type: BLOOD SPECIMENOrdering Facility: [facility] Address: [address] [place] [address] Performed By: #### 2 4321-2 ####[facility] [id number] [address] Creatinine and Glomerular filtration rate.predicted panel (S/P/Bld) 56 mL/min/1.73m??? Low >=60 [facility] Comment on above: Order Comment: Speci men Type: BLOOD SPECIMENOrdering Facility: [facility] Address: [address] [place] [address] Result Comment: Inocencia mated Glomerular Filtration Rate [...] actual GFR. Performed By: #### 2 4321-2 ####[facility] [id number] [place] [address] [place] Glucose [Mass/Vol] 127 mg/dL High 74-99 [facility] Comment on above: Order Comment: Speci men Type: BLOOD SPECIMENOrdering Facility: [facility] Address: [address] [place] [address] Result Comment: The [place] Diabetes Association (ADA) provides guidance for cutoff [...] Standards of Medical Care in Diabetes 2016, [place] Diabetes Association. Diabetes Care. 2016.39(Suppl 1). Performed By: #### 2 4321-2 ####[facility] [id number] [place] [address] [place] Potassium [Moles/Vol] 4.3 mmol/L Normal 3.7-5.[address] [facility] Comment on above: Order Comment: Speci men Type: BLOOD SPECIMENOrdering Facility: [facility] Address: [address] [place], [place] [address] Performed By: #### 2 4321-2 ####[facility] MILLTOWNCLIA [id number] [place] [address] [place] Sodium [Moles/Vol] 136 mmol/L Normal 136-144 [facility] Comment on above: Order Comment: Speci men Type: BLOOD SPECIMENOrdering Facility: [facility] Address: [address] [place], [place] [address] Performed By: #### 2 4321-2 ####[facility] MILLTOWNCLIA [id number] [place] [address] [place] Urea nitrogen [Mass/Vol] 27 mg/dL High 7-21 [facility] Comment on above: Order Comment: Speci men Type: BLOOD SPECIMENOrdering Facility: [facility] Address: [address] [place] [place] [address] Performed By: #### 2 4321-2 ####[facility] [id number] [place] [id number] [place] Basophil percentageOrdered B y: Mendoza Boogie on 08-13-2023 Basophil percentage < 1.0 mg/dL 0.55-1.02 [facility] No Panel InformationOrdered By: Mendoza Boogie on 08-13-2023 Bedside Estimated GFR (eGFR) > 60.0000 mL/min >60 [facility] Basophil percentageOrdered B y: Mendoza Boogie on 01-09-2023 Chloride [Moles/Vol] 105 mmol/L 98-107 [facility] Glucose [Mass/Vol] 122 mg/dL 74-106 [facility] Comment on above: Fasting Glucose resu lt from 100 to 125 mg/dL suggests IMPAIRED HOMEOSTASIS per A.D.A. criteria. Potassium [Moles/Vol] 4.4 mmol/L 3.5-5.1 [facility] Comment on above: Moderate Hemolysis, Result may be falsely increased. Sodium [Moles/Vol] 136 mmol/L 136-145 [facility] Laboratory - Chemistry and C hemistry - challengeOrdered By: Mendoza Boogie on 01-09-2023 CO2 [Moles/Vol] 22.0 mmol/L 21.0-32.0 [facility] Urea nitrogen/Creatinine [Mass ratio] 26.7 mg/mg 10-20 [facility] No Panel InformationOrdered By: Mendoza Boogie on 01-09-2023 Estimated GFR (MDRD) Amer 72 mL/min >60 [facility] Comment on above: GFR Calc Estimated GFR (MDRD) Non-Af Amer 60 mL/min >60 [facility] Comment on above: Non- GFR Calc Serum or plasma calcium jillian urement (mass/volume)Ordered By: Mendoza Boogie on 01-09-2023 Calcium [Mass/Vol] 9.6 mg/dL 8.5-10.1 [facility] Serum or plasma creatinine m easurement (mass/volume)Ordered By: Mendoza Boogie on 01-09-2023 Creatinine [Mass/Vol] 0.98 mg/dL 0.55-1.02 [facility] Comment on above: The validity of the calculated GFR & GFRAA in patients over 70 years has not been determined. Clinical correlation is essential. Serum or plasma urea nitroge n measurement (mass/volume)Ordered By: Mendoza Boogie on 01-09-2023 Urea nitrogen [Mass/Vol] 26 mg/dL 7-18 [facility] Thin prep Papanicolaou smear with manual screeningOrdered By: Mendoza Boogie on 01-09-2023 Thin prep Papanicolaou smear with manual screening 9 5-15 [facility] Basophil percentageon 2021 Chloride [Moles/Vol] 105 mmol/L 98-107 [facility] Work Phone: Glucose [Mass/Vol] 104 mg/dL 74-106 [facility] Work Phone: Comment on above: Fasting Glucose resu lt from 100 to 125 mg/dL suggests IMPAIRED HOMEOSTASIS per A.D.A. criteria. Potassium [Moles/Vol] 4.1 mmol/L 3.5-5.1 [facility] [facility] Work Phone: Sodium [Moles/Vol] 139 mmol/L 136-145 [facility] Work Phone: Laboratory - Chemistry and C hemistry - challengeon 07-24-2022 CO2 [Moles/Vol] 29.0 mmol/L 21.0-32.0 [facility] Work Phone: Urea nitrogen/Creatinine [Mass ratio] 33.0 mg/mg 10-20 [facility] Work Phone: No Panel Informationon 07-24 Estimated GFR (MDRD) Amer 81 mL/min >60 [facility] Work Phone: Comment on above: GFR Calc Estimated GFR (MDRD) Non-Af Amer 67 mL/min >60 [facility] Work Phone: Comment on above: Non- GFR Calc Serum or plasma calcium jillian urement (mass/volume)on 07-24-2022 Calcium [Mass/Vol] 9.4 mg/dL 8.5-10.1 [facility] Work Phone: Serum or plasma creatinine m easurement (mass/volume)on 07-24-2022 Creatinine [Mass/Vol] 0.88 mg/dL 0.55-1.02 [facility] Work Phone: Comment on above: The validity of the calculated GFR & GFRAA in patients over 70 years has not been determined. Clinical correlation is essential. Serum or plasma urea nitroge n measurement (mass/volume)on 07-24-2022 Urea nitrogen [Mass/Vol] 29 mg/dL 7-18 [facility] Work Phone: Thin prep Papanicolaou smear with manual screeningon 07-24-2022 Thin prep Papanicolaou smear with manual screening 5 5-15 [facility] Work Phone: CNNURSEon 11-12-2020 CNNURSE Nurse Visit (GENIAABA) KARLA CAI ([id number]) 1950 F Date Time Provider Department 11/12/20 10:40 AM COVID VACCINE [facility] COVABA During your visit today, we recorded the following information about you: Referring Provider: SELF [200] Allergies As of Date: 11/12/2020 Noted Allergy Reaction ADHESIVE 11/06/2018 14 - Other: See Comments Comments: Redness, swelling, blisters Environmental allergies [Other] 07/14/2009 Comments: Cockroaches, dust mites LISINOPRIL 03/09/2010 3 - Cough NORVASC (AMLODIPINE BESYLATE) 01/30/2010 Comments: pedal edema Date Reviewed: 08/30/2020 Reviewed by: Zroa Comer RN - Fully Assessed Order(s):ArthroCAD COVID-19 VACCINE [[id number]] Order #: [id number] [facility] SARS-COV-2 VACCINE 2D DOSE APPT [[id number]] Order #: [id number] FUTURE Prescriptions as of 11/12/2020 Sig: POTASSIUM [...] 07/27/2019 Diverticulosis [K57.90] 07/27/2019 Encounter Status:Open Normal [facility] CT 3D POST PROCESSINGon 08-09 CT 3D POST PROCESSING * * *Final Report* * *DATE OF EXAM: Aug 27 2018 7:20AM [facility] 0563 - CT 3D POST PROCESSING / [...] a dedicated stand-alone workstation by the interpreting physician.RESULT:Hal rankin study limitations: Motion artifactCHEST:The chest wall is [...] WHITFIELD MD on Sep 03 2018 6:14PM [id number] ACN Normal [facility] CTA C/A/P (NONGATED) W IVCON on 08-27-2018 CTA C/A/P (NONGATED) W IVCON * * *Final Report* * *DATE OF EXAM: Aug 27 2018 7:22AM [facility] 0131 - CTA C/A/P (NONGATED) W IVCON [...] a dedicated stand-alone workstation by the interpreting physician.RESULT:Hal tial study limitations: Motion artifactCHEST:The chest wall [...] abdominal aortic pathology.3. Old granulomatous disease.[facility] st[facility] Trans[facility] Date/Time: Aug 27 2018 8:50ADictated by : TEAGAN WHITFIELD MDThis examination was interpreted and the report reviewed and electronically signed by: TEAGAN WHITFIELD MD on Aug 27 2018 9:28AM [id number] Normal [facility] Vital Signs Date Time Vital Sign Value Performing Clinician Facility 01-18-2025 14:06-0400 Body height 175.[address] Jae Belcher MD Work Phone: [facility] 01-18-2025 14:06-0400 Body mass index (BMI) [Ratio] 24 kg/m2 Dr. Jae Belcher MD Work Phone: [facility] 01-18-2025 14:06-0400 Body temperature 97.5 [degF] Dr. Jae Belcher MD Work Phone: [facility] 01-18-2025 14:06-0400 Body weight 73.[address] Jae Belcher MD Work Phone: [facility] 01-18-2025 14:06-0400 Diastolic blood pressure 76 mm[Hg] Dr. Jae Belcher MD Work Phone: [facility] 01-18-2025 14:06-0400 Heart rate 64 /min Dr. Jae Belcher MD Work Phone: [facility] 01-18-2025 14:06-0400 Respiratory rate 16 /min Dr. Jae Belcher MD Work Phone: 9(353)235-521220 [place] [address] 01-18-2025 14:06-0400 SaO2% (BldA) [Mass fraction] 97 % Dr. Jae Belcher MD Work Phone: 8(331)465-417120 [place] [address] 01-18-2025 14:06-0400 Systolic blood pressure 120 mm[Hg] Dr. Jae Belcher MD Work Phone: 4(676)172-478220 [place] [address] 12-22-2024 09:17-0400 Body mass index (BMI) [Ratio] 23.6 kg/m2 Dr. Jae Belcher MD Work Phone: 3(288)810-844020 [place] [address] 12-22-2024 09:17-0400 Body weight 72.[address] Jae Belcher MD Work Phone: 7(601)989-084520 [place] [address] 12-22-2024 09:17-0400 Diastolic blood pressure 76 mm[Hg] Dr. Jae Belcher MD Work Phone: 5(516)360-684420 [place] [address] 12-22-2024 09:17-0400 Heart rate 68 /min Dr. Jae Belcher MD Work Phone: 8(294)276-279720 [place] [address] 12-22-2024 09:17-0400 Respiratory rate 16 /min Dr. Jae Belcher MD Work Phone: 7(737)821-273620 [place] [address] 12-22-2024 09:17-0400 Systolic blood pressure 123 mm[Hg] Dr. Jae Belcher MD Work Phone: 3(029)088-511420 [place] [address] 11-16-2024 08:33-0400 Diastolic blood pressure 62 mm[Hg] Dr. Jae Belcher MD Work Phone: 1(503)683-018320 [place] [address] 11-16-2024 08:33-0400 Heart rate 64 /min Dr. Jae Belcher MD Work Phone: 6(446)545-881120 [place] [address] 11-16-2024 08:33-0400 Respiratory rate 18 /min Dr. Jae Belcher MD Work Phone: 8(352)286-474620 [place] [address] 11-16-2024 08:33-0400 Systolic blood pressure 118 mm[Hg] Dr. Jae Belcher MD Work Phone: 8(868)011-677120 [place] [address] 11-16-2024 08:18-0400 Body temperature 97.6 [degF] Dr. Jae Belcher MD Work Phone: 4(975)143-385620 [place] [address] 11-12-2024 12:35-0500 Body temperature 97.4 [degF] Dr. Jae Belcher MD Work Phone: 4(602)230-024020 [place] [address] 11-12-2024 12:35-0500 Diastolic blood pressure 61 mm[Hg] Dr. Jae Belcher MD Work Phone: 5(070)281-567020 [place] [address] 11-12-2024 12:35-0500 Heart rate 73 /min Dr. Jae Belcher MD Work Phone: 9(784)519-671220 [place] [address] 11-12-2024 12:35-0500 Respiratory rate 18 /min Dr. Jae Belcher MD Work Phone: 4(020)478-980120 [place] [address] 11-12-2024 12:35-0500 Systolic blood pressure 107 mm[Hg] Dr. Jae Belcher MD Work Phone: 8(129)544-963320 [place] [address] 11-02-2024 14:51-0500 Body height 175.[address] Jae Belcher MD Work Phone: 2(252)731-099820 [place] [address] 11-02-2024 14:51-0500 Body weight 71.[address] Jae Belcher MD Work Phone: 4(291)242-813420 [place] [address] 11-02-2024 14:19-0500 Body mass index (BMI) [Ratio] 23.1 kg/m2 Dr. Jae Belcher MD Work Phone: 4(632)429-673720 [place] [address] 11-02-2024 14:04-0500 Diastolic blood pressure 71 mm[Hg] Dr. Jae Belcher MD Work Phone: 5(568)031-505520 [place] [address] 11-02-2024 14:04-0500 Heart rate 74 /min Dr. Jae Belcher MD Work Phone: 8(454)888-165692 [place] [address] 11-02-2024 14:04-0500 SaO2% (BldA) [Mass fraction] 92 % Dr. Jae Belcher MD Work Phone: 1(216)430-290092 [place] [address] 11-02-2024 14:04-0500 Systolic blood pressure 111 mm[Hg] Dr. Jae Belcher MD Work Phone: 8(796)110-310120 [place] [address] 10-29-2024 10:28-0500 Body mass index (BMI) [Ratio] 23.1 kg/m2 Dr. Jae Belcher MD Work Phone: 4(623)147-756120 [place] [address] 10-29-2024 10:28-0500 Body weight 71.[address] Jae Belcher MD Work Phone: 8(774)353-164120 [place] [address] 10-29-2024 10:28-0500 Diastolic blood pressure 71 mm[Hg] Dr. Jae Belcher MD Work Phone: 9(595)443-731420 [place] [address] 10-29-2024 10:28-0500 Heart rate 74 /min Dr. Jae Belcher MD Work Phone: 9(683)791-004120 [place] [address] 10-29-2024 10:28-0500 Respiratory rate 18 /min Dr. Jae Belcher MD Work Phone: 5(094)737-507520 [place] [address] 10-29-2024 10:28-0500 SaO2% (BldA) [Mass fraction] 92 % Dr. Jae Belcher MD Work Phone: 0(217)028-104720 [place] [address] 10-29-2024 10:28-0500 Systolic blood pressure 111 mm[Hg] Dr. Jae Belcher MD Work Phone: 4(768)105-841820 [place] [address] 10-13-2024 12:18-0500 Body height 172 cm Savanna Kothari APRN.ENVIRONMENTAL SYSTEMS COORDINATOR Work Phone: [facility] 10-13-2024 12:18-0500 Body mass index (BMI) [Ratio] 23.36 kg/m2 Savanna Kothari APRN.ENVIRONMENTAL SYSTEMS COORDINATOR Work Phone: [facility] 10-13-2024 12:18-0500 Body weight 69.1 kg Savanna Ngozi CONSULTING SOLUTION MANAGER.ENVIRONMENTAL SYSTEMS COORDINATOR Work Phone: [facility] 10-13-2024 12:18-0500 Diastolic blood pressure 70 mm[Hg] Savanna Ngozi CONSULTING SOLUTION MANAGER.ENVIRONMENTAL SYSTEMS COORDINATOR Work Phone: [facility] 10-13-2024 12:18-0500 Heart rate 80 /min Savanna Ngozi CONSULTING SOLUTION MANAGER.ENVIRONMENTAL SYSTEMS COORDINATOR Work Phone: [facility] 10-13-2024 12:18-0500 Respiratory rate 12 /min Savanna Ngozi CONSULTING SOLUTION MANAGER.ENVIRONMENTAL SYSTEMS COORDINATOR Work Phone: [facility] 10-13-2024 12:18-0500 SaO2% (BldA) [Mass fraction] 96 % Savanna Ngozi CONSULTING SOLUTION MANAGER.ENVIRONMENTAL SYSTEMS COORDINATOR Work Phone: [facility] 10-13-2024 12:18-0500 Systolic blood pressure 114 mm[Hg] Savanna Ngozi CONSULTING SOLUTION MANAGER.ENVIRONMENTAL SYSTEMS COORDINATOR Work Phone: [facility] 10-07-2024 15:47-0500 Body mass index (BMI) [Ratio] 22.45 kg/m2 Joaquim Galloway MD Work Phone: [facility] 10-07-2024 15:47-0500 Body weight 68.95 kg Joaquim Galloway MD Work Phone: [facility] 10-07-2024 15:47-0500 Diastolic blood pressure 81 mm[Hg] Joaquim Galloway MD Work Phone: [facility] 10-07-2024 15:47-0500 Heart rate 76 /min Joaquim Galloway MD Work Phone: [facility] 10-07-2024 15:47-0500 SaO2% (BldA) [Mass fraction] 93 % Joaquim Galloway MD Work Phone: [facility] 10-07-2024 15:47-0500 Systolic blood pressure 138 mm[Hg] Joaquim Galloway MD Work Phone: [facility] 09-23-2024 12:59-0500 Diastolic blood pressure 77 mm[Hg] Dr. Jae Belcher MD Work Phone: 1(436)866-328720 [place] [address] 09-23-2024 12:59-0500 Heart rate 75 /min Dr. Jae Belcher MD Work Phone: 7(484)228-885520 [place] [address] 09-23-2024 12:59-0500 Respiratory rate 18 /min Dr. Jae Belcher MD Work Phone: 2(303)816-173620 [place] [address] 09-23-2024 12:59-0500 Systolic blood pressure 116 mm[Hg] Dr. Jae Belcher MD Work Phone: 0(027)532-409420 [place] [address] 09-22-2024 08:45-0500 Diastolic blood pressure 68 mm[Hg] Dr. Jae Belcher MD Work Phone: 8(354)257-937620 [place] [address] 09-22-2024 08:45-0500 Heart rate 77 /min Dr. Jae Belcher MD Work Phone: 4(529)762-427220 [place] [address] 09-22-2024 08:45-0500 Respiratory rate 26 /min Dr. Jae Belcher MD Work Phone: 1(396)725-573320 [place] [address] 09-22-2024 08:45-0500 Systolic blood pressure 119 mm[Hg] Dr. Jae Belcher MD Work Phone: 7(254)022-249620 [place] [address] 09-22-2024 08:15-0500 Body temperature 97.2 [degF] Dr. Jae Belcher MD Work Phone: 2(533)419-919020 [place] [address] 09-16-2024 10:29-0500 Body mass index (BMI) [Ratio] 23.4 kg/m2 Dr. Jae Belcher MD Work Phone: 3(874)636-725420 [place] [address] 09-16-2024 10:29-0500 Body weight 72.[address] Jae Belcher MD Work Phone: 3(452)326-041720 [place] [address] 09-16-2024 10:29-0500 Diastolic blood pressure 66 mm[Hg] Dr. Jae Belcher MD Work Phone: 7(902)335-566120 [place] [address] 09-16-2024 10:29-0500 Heart rate 67 /min Dr. Jae Belcher MD Work Phone: 5(490)114-343720 [place] [address] 09-16-2024 10:29-0500 Respiratory rate 18 /min Dr. Jae Belcher MD Work Phone: 6(425)602-803720 [place] [address] 09-16-2024 10:29-0500 SaO2% (BldA) [Mass fraction] 95 % Dr. Jae Belcher MD Work Phone: 1(150)031-559120 [place] [address] 09-16-2024 10:29-0500 Systolic blood pressure 105 mm[Hg] Dr. Jae Belcher MD Work Phone: 1(715)017-435920 [place] [address] 09-08-2024 12:28-0500 Diastolic blood pressure 55 mm[Hg] Dr. Jae Belcher MD Work Phone: 2(864)000-808820 [place] [address] 09-08-2024 12:28-0500 Heart rate 70 /min Dr. Jae Belcher MD Work Phone: 0(799)432-442920 [place] [address] 09-08-2024 12:28-0500 Respiratory rate 18 /min Dr. Jae Belcher MD Work Phone: 5(616)234-516320 [place] [address] 09-08-2024 12:28-0500 Systolic blood pressure 116 mm[Hg] Dr. Jae Belcher MD Work Phone: 1(884)249-847420 [place] [address] 09-07-2024 08:29-0500 Diastolic blood pressure 65 mm[Hg] Dr. Jae Belcher MD Work Phone: 8(315)021-245620 [place] [address] 09-07-2024 08:29-0500 Heart rate 68 /min Dr. Jae Belcher MD Work Phone: 6(375)700-718220 [place] [address] 09-07-2024 08:29-0500 Respiratory rate 18 /min Dr. Jae Belcher MD Work Phone: 3(123)157-826120 [place] [address] 09-07-2024 08:29-0500 Systolic blood pressure 109 mm[Hg] Dr. Jae Belcher MD Work Phone: 4(641)106-877720 [place] [address] 09-07-2024 07:57-0500 Body temperature 96.8 [degF] Dr. Jae Belcher MD Work Phone: 4(886)122-624120 [place] [address] 09-03-2024 07:27-0500 Body mass index (BMI) [Ratio] 25.5 kg/m2 Dr. Jae Belcher MD Work Phone: 4(551)955-484620 [place] [address] 09-03-2024 07:27-0500 Body weight 78.[address] Jae Belcher MD Work Phone: 1(473)153-002720 [place] [address] 09-03-2024 07:27-0500 Diastolic blood pressure 82 mm[Hg] Dr. Jae Belcher MD Work Phone: 7(688)291-758220 [place] [address] 09-03-2024 07:27-0500 Heart rate 61 /min Dr. Jae Belcher MD Work Phone: 5(079)500-622620 [place] [address] 09-03-2024 07:27-0500 Respiratory rate 18 /min Dr. Jae Belcher MD Work Phone: 9(300)591-927120 [place] [address] 09-03-2024 07:27-0500 SaO2% (BldA) [Mass fraction] 93 % Dr. Jae Belcher MD Work Phone: 2(093)596-034320 [place] [address] 09-03-2024 07:27-0500 Systolic blood pressure 135 mm[Hg] Dr. Jae Belcher MD Work Phone: 7(348)254-447920 [place] [address] 08-28-2024 13:19-0500 Body mass index (BMI) [Ratio] 26.61 kg/m2 Savanna Kothari APRN.ENVIRONMENTAL SYSTEMS COORDINATOR Work Phone: 5(611)370-115890 [place] [address] 08-28-2024 13:19-0500 Body temperature 98.29 [degF] Savanna Kothari APRN.ENVIRONMENTAL SYSTEMS COORDINATOR Work Phone: 4(745)491-039490 [place] [address] 08-28-2024 13:19-0500 Body weight 79.38 kg Savanna Ngzoi CONSULTING SOLUTION MANAGER.ENVIRONMENTAL SYSTEMS COORDINATOR Work Phone: [facility] 08-28-2024 13:19-0500 Diastolic blood pressure 68 mm[Hg] Savanna Ngozi CONSULTING SOLUTION MANAGER.ENVIRONMENTAL SYSTEMS COORDINATOR Work Phone: [facility] 08-28-2024 13:19-0500 Heart rate 66 /min Savanna Ngozi CONSULTING SOLUTION MANAGER.ENVIRONMENTAL SYSTEMS COORDINATOR Work Phone: [facility] 08-28-2024 13:19-0500 SaO2% (BldA) [Mass fraction] 96 % Savanna Ngozi CONSULTING SOLUTION MANAGER.ENVIRONMENTAL SYSTEMS COORDINATOR Work Phone: [facility] 08-28-2024 13:19-0500 Systolic blood pressure 122 mm[Hg] Savanna Ngozi CONSULTING SOLUTION MANAGER.ENVIRONMENTAL SYSTEMS COORDINATOR Work Phone: [facility] 08-22-2024 10:19-0500 SaO2% (BldA) [Mass fraction] 95 % Joaquim Galloway MD Work Phone: [facility] 08-22-2024 06:46-0500 Body mass index (BMI) [Ratio] 26.37 kg/m2 Joaquim Galloway MD Work Phone: [facility] 08-22-2024 06:46-0500 Body weight 81 kg Joaquim Galloway MD Work Phone: [facility] 08-22-2024 05:35-0500 Body temperature 97.59 [degF] Joaquim Galloway MD Work Phone: [facility] 08-22-2024 05:35-0500 Diastolic blood pressure 66 mm[Hg] Joaquim Galloway MD Work Phone: [facility] 08-22-2024 05:35-0500 Heart rate 76 /min Joaquim Galloway MD Work Phone: [facility] 08-22-2024 05:35-0500 Respiratory rate 18 /min Joaquim Galloway MD Work Phone: [facility] 08-22-2024 05:35-0500 Systolic blood pressure 111 mm[Hg] Joaquim Galloway MD Work Phone: [facility] 08-14-2024 14:43-0500 Body temperature 37 Joaquim Galloway MD Work Phone: [facility] 08-14-2024 14:43-0500 SaO2% (BldA) [Mass fraction] 99 % Joaquim Galloway MD Work Phone: [facility] 08-14-2024 14:37-0500 Body temperature 37.0 degrees Celsius [facility] Comment on above: Performed By: #### [id number] ####STEFANO TROY (6 521)[facility] ([facility])[address] [place] [address] 08-14-2024 14:37-0500 SaO2% (BldA) [Mass fraction] 99 % [facility] Comment on above: Performed By: #### [id number] ####STEFANO TROY (6 22)[facility] ([facility])[address] [place] [address] 08-14-2024 07:51-0500 Body temperature 37 Joaquim Galloway MD Work Phone: [facility] 08-14-2024 07:51-0500 SaO2% (BldA) [Mass fraction] 98 % Joaquim Galloway MD Work Phone: [facility] 08-14-2024 07:42-0500 Body temperature 37.0 degrees Celsius [facility] Comment on above: Performed By: #### [id number] ####STEFANO TROY (6 22)[facility] ([facility])[address] [place] [address] 08-14-2024 07:42-0500 SaO2% (BldA) [Mass fraction] 98 % [facility] Comment on above: Performed By: #### [id number] ####STEFANO TROY (6 0522)[facility] ([facility])[address] [place] [address] 08-13-2024 10:32-0500 Body temperature 37 Joaquim Galloway MD Work Phone: [facility] 08-13-2024 10:32-0500 SaO2% (BldA) [Mass fraction] 97 % Joaquim Galloway MD Work Phone: [facility] 08-13-2024 10:21-0500 Body temperature 37.0 degrees Celsius [facility] Comment on above: Performed By: #### [id number] ####STEFANO TROY (6 0522)[facility] ([facility])[address] [place] [address] 08-13-2024 10:21-0500 SaO2% (BldA) [Mass fraction] 97 % [facility] Comment on above: Performed By: #### [id number] ####STEFANO TROY (6 0522)[facility] ([facility])[address] [place] [address] 08-12-2024 18:08-0500 Body temperature 37 Joaquim Galloway MD Work Phone: [facility] 08-12-2024 18:06-0500 Body temperature 37 Joaquim Galloway MD Work Phone: [facility] 08-12-2024 18:06-0500 SaO2% (BldA) [Mass fraction] 100 % Joaquim Galloway MD Work Phone: [facility] 08-12-2024 18:02-0500 Body temperature 37.0 degrees Celsius [facility] Comment on above: Order Comment: Please obtain from distal port of CVCBedside RN to obtain sample Performed By: #### 2 [id number] ####STEFANO TROY ([id number])[facility] ([facility])[address] [place] [address] 08-12-2024 17:59-0500 Body temperature 37.0 degrees Celsius [facility] Comment on above: Performed By: #### [id number] ####STEFANO TROY (6 0522)[facility] ([facility])[address] [place] [address] 08-12-2024 17:59-0500 SaO2% (BldA) [Mass fraction] 100 % [facility] Comment on above: Performed By: #### [id number] ####STEFANO TROY (6 0522)[facility] ([facility])[address] [place] [address] 08-12-2024 17:04-0500 Body temperature 37 Joaquim Galloway MD Work Phone: [facility] 08-12-2024 17:04-0500 SaO2% (BldA) [Mass fraction] 94 % Joaquim Galloway MD Work Phone: [facility] 08-12-2024 16:47-0500 Body temperature 37.0 degrees Celsius [facility] Comment on above: Performed By: #### [id number] ####STEFANO TROY (6 0522)[facility] ([facility])[address] [place] [address] 08-12-2024 16:47-0500 SaO2% (BldA) [Mass fraction] 94 % [facility] Comment on above: Performed By: #### [id number] ####STEFANO TROY (6 0522)[facility] ([facility])[address] [place] [address] 08-11-2024 16:19-0500 Body temperature 37 Joauqim Galloway MD Work Phone: [facility] 08-11-2024 15:59-0500 Body temperature 37.0 degrees Celsius [facility] Comment on above: Order Comment: Place draw from CVP port Performed By: #### 2 [id number] ####STEFANO TROY ([id number])[facility] ([facility])[address] [place] [address] 08-10-2024 14:55-0500 Body temperature 37.0 degrees Celsius [facility] Comment on above: Performed By: #### [id number] ####STEFANO TROY (6 0522)[facility] ([facility])[address] [place] [address] 08-10-2024 14:55-0500 SaO2% (BldA) [Mass fraction] 100 % [facility] Comment on above: Performed By: #### [id number] ####STEFANO TROY (6 0522)[facility] ([facility])[address] [place] [address] 08-10-2024 13:41-0500 Body temperature 37.0 degrees Celsius [facility] Comment on above: Performed By: #### [id number] ####STEFANO TROY (6 0522)[facility] ([facility])[address] [place] [address] 08-10-2024 13:41-0500 SaO2% (BldA) [Mass fraction] 99 % [facility] Comment on above: Performed By: #### 04650-2 ####STEFANO TROY (6 0522)[facility] ([facility])[address] [place] [address] 08-10-2024 12:11-0500 Body temperature 37.0 degrees Celsius [facility] Comment on above: Result Comment: NOTE: Patient Results ar e Not Corrected for Temperature Performed By: #### 9 [id number] ####STEFANO TROY ([id number])[facility] ([facility])[address] [place] [address] 08-10-2024 12:11-0500 SaO2% (BldA) [Mass fraction] 100 % [facility] Comment on above: Performed By: #### [id number] ####STEFANO TROY (6 0522)[facility] ([facility])[address] [place] [address] 08-10-2024 11:22-0500 Body temperature 37.0 degrees Celsius [facility] Comment on above: Result Comment: NOTE: Patient Results ar e Not Corrected for Temperature Performed By: #### 9 [id number] ####STEFANO TROY ([id number])[facility] ([facility])[address] [place] [address] 08-10-2024 11:22-0500 SaO2% (BldA) [Mass fraction] 100 % [facility] Comment on above: Performed By: #### [id number] ####STEFANO TROY (6 [id number])[facility] ([facility])[address] [place] [address] 08-10-2024 10:42-0500 Body temperature 37.0 degrees Celsius [facility] Comment on above: Result Comment: NOTE: Patient Results ar e Not Corrected for Temperature Performed By: #### 9 [id number] ####STEFANO TROY ([id number])[facility] ([facility])[address] [place] [address] 08-10-2024 10:42-0500 SaO2% (BldA) [Mass fraction] 100 % [facility] [facility] Comment on above: Performed By: #### [id number] ####STEFANO TROY (6 0522)[facility] ([facility])[address] [place] [address] 08-10-2024 10:06-0500 Body temperature 37.0 degrees Celsius [facility] Comment on above: Result Comment: NOTE: Patient Results ar e Not Corrected for Temperature Performed By: #### 9 [id number] ####STEFANO TROY ([id number])[facility] ([facility])[address] [place] [address] 08-10-2024 10:06-0500 SaO2% (BldA) [Mass fraction] 100 % [facility] Comment on above: Performed By: #### [id number] ####STEFANO TROY (6 0522)[facility] ([facility])[address] [place] [address] 08-10-2024 09:40-0500 Body temperature 37.0 degrees Celsius [facility] Comment on above: Result Comment: NOTE: Patient Results ar e Not Corrected for Temperature Performed By: #### 9 [id number] ####STEFANO TROY ([id number])[facility] ([facility])[address] [place] [address] 08-10-2024 09:40-0500 SaO2% (BldA) [Mass fraction] 100 % [facility] Comment on above: Performed By: #### [id number] ####STEFANO TROY (6 0522)[facility] ([facility])[address] [place] [address] 08-10-2024 09:31-0500 Body temperature 37.0 degrees Celsius [facility] Comment on above: Result Comment: NOTE: Patient Results ar e Not Corrected for Temperature Performed By: #### 2 [id number] ####STEFANO TROY ([id number])[facility] ([facility])[address] [place] [address] 08-10-2024 09:27-0500 Body temperature 37.0 degrees Celsius [facility] Comment on above: Result Comment: NOTE: Patient Results ar e Not Corrected for Temperature Performed By: #### 9 [id number] ####STEFANO TROY ([id number])[facility] ([facility])[address] [place] [address] 08-10-2024 09:27-0500 SaO2% (BldA) [Mass fraction] 100 % [facility] Comment on above: Performed By: #### [id number] ####STEFANO TROY (6 0522)[facility] ([facility])[address] [place] [address] 08-10-2024 08:47-0500 Body temperature 37.0 degrees Celsius [facility] Comment on above: Result Comment: NOTE: Patient Results ar e Not Corrected for Temperature Performed By: #### 9 [id number] ####STEFANO TROY ([id number])[facility] ([facility])[address] [place] [address] 08-10-2024 08:47-0500 SaO2% (BldA) [Mass fraction] 100 % [facility] Comment on above: Performed By: #### [id number] ####STEFANO TROY (6 0522)[facility] ([facility])[address] [place] [address] 08-10-2024 07:59-0500 Body temperature 37.0 degrees Celsius [facility] Comment on above: Result Comment: NOTE: Patient Results ar e Not Corrected for Temperature Performed By: #### 9 [id number] ####STEFANO TROY ([id number])[facility] ([facility])[address] [place] [address] 08-10-2024 07:59-0500 SaO2% (BldA) [Mass fraction] 100 % [facility] Comment on above: Performed By: #### [id number] ####STEFANO TROY (6 [id number])[facility] ([facility])[address] [place] [address] 08-10-2024 07:08-0500 Body height 175.3 cm Joaquim Galloway MD Work Phone: [facility] 06-24-2024 14:06-0400 Body height 175.3 cm Joaquim Galloway MD Work Phone: [facility] 06-24-2024 14:06-0400 Body mass index (BMI) [Ratio] 25.1 kg/m2 Joaquim Galloway MD Work Phone: [facility] 06-24-2024 14:06-0400 Body weight 77.11 kg Joaquim Galloway MD Work Phone: [facility] 06-24-2024 14:06-0400 Diastolic blood pressure 64 mm[Hg] Joaquim Galloway MD Work Phone: [facility] 06-24-2024 14:06-0400 Heart rate 63 /min Joaquim Galloway MD Work Phone: [facility] 06-24-2024 14:06-0400 SaO2% (BldA) [Mass fraction] 94 % Joaquim Galloway MD Work Phone: [facility] 06-24-2024 14:06-0400 Systolic blood pressure 108 mm[Hg] Joaquim Galloway MD Work Phone: [facility] 06-09-2024 18:00-0400 Diastolic blood pressure 64 mm[Hg] Flaquita Hendrix MD Work Phone: [facility] 06-09-2024 18:00-0400 Heart rate 54 /min Flaquita Hendrix MD Work Phone: [facility] 06-09-2024 18:00-0400 Respiratory rate 16 /min Flaquita Hendrix MD Work Phone: [facility] 06-09-2024 18:00-0400 SaO2% (BldA) [Mass fraction] 96 % Flaquita Hendrix MD Work Phone: [facility] 06-09-2024 18:00-0400 Systolic blood pressure 132 mm[Hg] Flaquita Hendrix MD Work Phone: [facility] 06-09-2024 16:25-0400 Body temperature 98.1 [degF] Flaquita Hendrix MD Work Phone: [facility] 06-09-2024 09:56-0400 Body height 175.3 cm Flaquita Hendrix MD Work Phone: [facility] 06-09-2024 09:56-0400 Body mass index (BMI) [Ratio] 25.39 kg/m2 Flaquita Hendrix MD Work Phone: [facility] 06-09-2024 09:56-0400 Body weight 78 kg Flaquita Hendrix MD Work Phone: [facility] 05-29-2024 10:42-0400 Body mass index (BMI) [Ratio] 26.05 kg/m2 Jae Belcher MD Work Phone: [facility] 05-29-2024 10:42-0400 Body temperature 97.7 [degF] Jae Belcher MD Work Phone: [facility] 05-29-2024 10:42-0400 Body weight 77.7 kg Jae Belcher MD Work Phone: [facility] 05-29-2024 10:42-0400 Diastolic blood pressure 78 mm[Hg] Jae Belcher MD Work Phone: [facility] 05-29-2024 10:42-0400 Heart rate 68 /min Jae Belcher MD Work Phone: [facility] 05-29-2024 10:42-0400 Respiratory rate 18 /min Jae Belcher MD Work Phone: [facility] 05-29-2024 10:42-0400 SaO2% (BldA) [Mass fraction] 94 % Jae Blecher MD Work Phone: [facility] 05-29-2024 10:42-0400 Systolic blood pressure 118 mm[Hg] Jae Belcher MD Work Phone: [facility] 05-27-2024 13:44-0400 Body height 175.3 cm Joaquim Galloway MD Work Phone: [facility] 05-27-2024 13:44-0400 Body mass index (BMI) [Ratio] 25.45 kg/m2 Joaquim Galloway MD Work Phone: [facility] 05-27-2024 13:44-0400 Body weight 78.16 kg Joaquim Galloway MD Work Phone: [facility] 05-27-2024 13:44-0400 Diastolic blood pressure 63 mm[Hg] Joaquim Galloway MD Work Phone: [facility] 05-27-2024 13:44-0400 Heart rate 60 /min Joaquim Galloway MD Work Phone: [facility] 05-27-2024 13:44-0400 SaO2% (BldA) [Mass fraction] 95 % Joaquim Galloway MD Work Phone: [facility] 05-27-2024 13:44-0400 Systolic blood pressure 120 mm[Hg] Joaquim Galloway MD Work Phone: [facility] 05-20-2024 11:33-0400 Body mass index (BMI) [Ratio] 26.68 kg/m2 Krislyn Aberegg PA Work Phone: [facility] 05-20-2024 11:33-0400 Body temperature 98.71 [degF] Krislyn Aberegg PA Work Phone: [facility] 05-20-2024 11:33-0400 Body weight 79.6 kg Krislyn Aberegg PA Work Phone: [facility] 05-20-2024 11:33-0400 Diastolic blood pressure 70 mm[Hg] Krislyn Aberegg PA Work Phone: [facility] 05-20-2024 11:33-0400 Heart rate 68 /min Krislyn Aberegg PA Work Phone: [facility] 05-20-2024 11:33-0400 Respiratory rate 16 /min Krislyn Aberegg PA Work Phone: [facility] 05-20-2024 11:33-0400 SaO2% (BldA) [Mass fraction] 97 % Torri Aberegg PA Work Phone: [facility] 05-20-2024 11:33-0400 Systolic blood pressure 124 mm[Hg] Torri Hollandgg PA Work Phone: [facility] 02-25-2024 09:30-0400 Body mass index (BMI) [Ratio] 26.91 kg/m2 Jae Belcher MD Work Phone: [facility] 02-25-2024 09:30-0400 Body temperature 97.7 [degF] Jae Belcher MD Work Phone: [facility] 02-25-2024 09:30-0400 Body weight 80.29 kg Jae Belcher MD Work Phone: [facility] 02-25-2024 09:30-0400 Diastolic blood pressure 78 mm[Hg] Jae Belcher MD Work Phone: [facility] 02-25-2024 09:30-0400 Heart rate 64 /min Jae Belcher MD Work Phone: [facility] 02-25-2024 09:30-0400 Respiratory rate 16 /min Jae Belcher MD Work Phone: [facility] 02-25-2024 09:30-0400 Systolic blood pressure 120 mm[Hg] Jae Belcher MD Work Phone: [facility] 12-10-2023 11:12-0400 Body weight 80.[address] Work Phone: [facility] 09-03-2023 13:44-0500 Diastolic blood pressure 72 mm[Hg] Dr. Jae Belcher Work Phone: [facility] 09-03-2023 13:44-0500 Heart rate 68 /min Dr. Jae Belcher Work Phone: [facility] 09-03-2023 13:44-0500 Respiratory rate 16 /min Dr. Jae Belcher Work Phone: 5(373)948-372220 [place] [address] 09-03-2023 13:44-0500 Systolic blood pressure 114 mm[Hg] Dr. Jae Belcher Work Phone: 6(303)757-116420 [place] [address] 08-20-2023 09:08-0500 Body height 175.[address] Jae Belcher Work Phone: 2(382)657-569920 [place] [address] 08-20-2023 09:08-0500 Body mass index (BMI) [Ratio] 28 kg/m2 Dr. Jae Belcher Work Phone: 3(746)243-400520 [place] [address] 08-20-2023 09:08-0500 Body weight 86.[address] Jae Belcher Work Phone: 3(940)400-938120 [place] [address] 08-20-2023 09:08-0500 Diastolic blood pressure 83 mm[Hg] Dr. Jae Belcher Work Phone: 6(405)150-791220 [place] [address] 08-20-2023 09:08-0500 Heart rate 53 /min Dr. Jae Belcher Work Phone: 1(664)760-329520 [place] [address] 08-20-2023 09:08-0500 Respiratory rate 18 /min Dr. Jae Belcher Work Phone: 5(801)760-805120 [place] [address] 08-20-2023 09:08-0500 SaO2% (BldA) [Mass fraction] 95 % Dr. Jae Belcher Work Phone: 9(814)666-930020 [place] [address] 08-20-2023 09:08-0500 Systolic blood pressure 152 mm[Hg] Dr. Jae Belcher Work Phone: 3(746)270-608720 [place] [address] 11-29-2022 13:33-0400 Body height 175.[address] Jae Belcher Work Phone: 3(548)265-714320 [place] [address] 11-29-2022 13:33-0400 Body mass index (BMI) [Ratio] 29.2 kg/m2 Dr. Jae Belcher Work Phone: 2(078)383-661820 [place] [address] 11-29-2022 13:33-0400 Body weight 89.[address] Jae Belcher Work Phone: [facility] 11-29-2022 13:33-0400 Diastolic blood pressure 78 mm[Hg] Dr. Jae Belcher Work Phone: [facility] 11-29-2022 13:33-0400 Heart rate 72 /min Dr. Jae Belcher Work Phone: [facility] 11-29-2022 13:33-0400 Respiratory rate 18 /min Dr. Jae Belcher Work Phone: [facility] 11-29-2022 13:33-0400 SaO2% (BldA) [Mass fraction] 94 % Dr. Jae Belcher Work Phone: 2(617)473-598792 [place] [address] 11-29-2022 13:33-0400 Systolic blood pressure 130 mm[Hg] Dr. Jae Belcher Work Phone: [facility] 08-22-2022 17:53-0500 Body height 172.7 cm Savanna Older CONSULTING SOLUTION MANAGER.ENVIRONMENTAL SYSTEMS COORDINATOR Work Phone: [facility] 08-22-2022 17:53-0500 Body temperature 98.6 [degF] Savanna Older CONSULTING SOLUTION MANAGER.ENVIRONMENTAL SYSTEMS COORDINATOR Work Phone: [facility] 08-22-2022 17:53-0500 Body weight 87.09 kg Savanna Older CONSULTING SOLUTION MANAGER.ENVIRONMENTAL SYSTEMS COORDINATOR Work Phone: [facility] 08-22-2022 17:53-0500 Diastolic blood pressure 86 mm[Hg] Savanna Older CONSULTING SOLUTION MANAGER.ENVIRONMENTAL SYSTEMS COORDINATOR Work Phone: [facility] 08-22-2022 17:53-0500 Heart rate 70 /min Savanna Older CONSULTING SOLUTION MANAGER.ENVIRONMENTAL SYSTEMS COORDINATOR Work Phone: [facility] 08-22-2022 17:53-0500 Respiratory rate 14 /min Savanna Older CONSULTING SOLUTION MANAGER.ENVIRONMENTAL SYSTEMS COORDINATOR Work Phone: [facility] 08-22-2022 17:53-0500 Systolic blood pressure 124 mm[Hg] Savanna Ernestina CONSULTING SOLUTION MANAGER.ENVIRONMENTAL SYSTEMS COORDINATOR Work Phone: [facility] 07-24-2022 08:37-0500 Body temperature 96.6 [degF] Jennifer Luong CONSULTING SOLUTION MANAGER.ENVIRONMENTAL SYSTEMS COORDINATOR Work Phone: [facility] 07-24-2022 08:37-0500 Body weight 85.73 kg Jennifer Luong CONSULTING SOLUTION MANAGER.ENVIRONMENTAL SYSTEMS COORDINATOR Work Phone: [facility] 07-24-2022 08:37-0500 Diastolic blood pressure 67 mm[Hg] Jennifer Luong CONSULTING SOLUTION MANAGER.ENVIRONMENTAL SYSTEMS COORDINATOR Work Phone: [facility] 07-24-2022 08:37-0500 Heart rate 75 /min Jennifer Luong CONSULTING SOLUTION MANAGER.ENVIRONMENTAL SYSTEMS COORDINATOR Work Phone: [facility] 07-24-2022 08:37-0500 Systolic blood pressure 118 mm[Hg] Jennifer Luong CONSULTING SOLUTION MANAGER.ENVIRONMENTAL SYSTEMS COORDINATOR Work Phone: [facility] 07-05-2022 10:37-0400 Body height 175.[address] Pantera Thomas III Work Phone: [facility] Work Phone: 07-05-2022 10:37-0400 Diastolic blood pressure 80 mm[Hg] Dr. Pantera Thomas III Work Phone: [facility] Work Phone: 07-05-2022 10:37-0400 Systolic blood pressure 140 mm[Hg] Dr. Pantera Thomas III Work Phone: [facility] Work Phone: 07-05-2022 10:35-0400 Body mass index (BMI) [Ratio] 28.2 kg/m2 Dr. Pantera Thomas III Work Phone: [facility] Work Phone: 07-05-2022 10:35-0400 Body weight 86.[address] Pantera Thomas III Work Phone: [facility] Work Phone: 07-05-2022 10:35-0400 Heart rate 62 /min Dr. Pantera Thomas III Work Phone: [facility] Work Phone: 07-05-2022 10:35-0400 Respiratory rate 18 /min Dr. Pantera Thomas III Work Phone: [facility] Work Phone: 07-05-2022 10:35-0400 SaO2% (BldA) [Mass fraction] 93 % Dr. Pantera Thomas III Work Phone: [facility] Work Phone: Encounters Encounter Date Encounter Type Care Provider Facility [facility]: [facility] Start: 05-04-2025 ambulatory Bernakenney Gonzalezlay Facility :[facility] Start: 04-21-2025 ambulatory Bernakenney Parsons Facility :[facility] Start: 04-21-2025 Non-patient / Non-visit Dr. Bonifacio bradley MD -[facility]- Start: 04-21-2025 End: 04-21-[address] Jae Belcher MD Work Phone: -Pulmonary Services/Neurology Start: 04-21-2025 End: 04-21-[address] Berna Parsons MD -Pulmonary Services/Neurology Work Phone: Start: 04-21-2025 End: 04-21-2025 ambulatory Berna Jaqueline Facility:[facility] Start: 02-17-2025 ambulatory Self Referred Facility: [facility] Start: 01-18-2025 End: 01-18-[address] Berna Parsons MD -[facility] Work Phone: Start: 01-18-2025 End: 01-18-2025 ambulatory Bernadavid Parsons Facility:[facility] Start: 01-14-2025 End: 02-06-2025 Discharged Recurring Self Referred -Nutritional Servic es Work Phone: Start: 01-14-2025 End: 02-06-[address] Jae Belcher MD Work Phone: [facility] Work Phone: Start: 01-05-2025 End: 01-05-2025 Patient encounter procedure Mendoza JULIEN -Laboratory Work Phone: Start: 01-05-2025 End: 01-05-2025 ambulatory Mendoza JULIEN Facility:[facility] Start: 12-31-2024 Non-patient / Non-visit Dr. Julisa FLETCHER -[place] [facility] Work Phone: Start: 12-31-2024 ambulatory Mendoza JULIEN Facility:[facility] Start: 12-31-2024 Registered Referred Mendoza JULIEN -Cardiovascular Services Work Phone: Start: 12-22-2024 End: 12-22-2024 Patient encounter procedure Mendoza JULIEN -[facility] Work Phone: Start: 12-22-2024 End: 12-22-2024 ambulatory Mendoza JULIEN Facility:[facility] Start: 12-21-2024 End: 12-21-[address] Jae Belcher MD Work Phone: [facility] Work Phone: Start: 12-21-2024 End: 12-21-2024 Patient encounter procedure Mendoza JULIEN -Radiology, [facility] Work Phone: Start: 12-21-2024 End: 12-21-2024 ambulatory Mendoza JULIEN Facility:[facility] Start: 12-18-2024 ambulatory Tulio Keenan Facility:[facility] Start: 11-16-2024 End: 11-16-[address] Jae Belcher MD Work Phone: [facility] Work Phone: Start: 11-16-2024 End: 11-16-2024 Patient encounter procedure Mendoza JULIEN -Ultrasound, [facility] Work Phone: Start: 11-16-2024 End: 11-16-2024 ambulatory Mendoza JULIEN Facility:[facility] Start: 11-12-2024 ambulatory Mendoza JULIEN Facility:[facility] Start: 11-12-2024 Non-patient / Non-visit Lisbeth james MEAT SERVICE TEAM MEMBER-C -[facility] Start: 11-12-2024 End: 11-12-[address] Jae Belcher MD Work Phone: [facility] Work Phone: Start: 11-12-2024 End: 11-12-2024 Patient encounter procedure Mendoza JULIEN -Ultrasound, [facility] Work Phone: Start: 11-11-2024 End: [address] Jae Belcher MD Work Phone: [facility] Work Phone: Start: 11-11-2024 End: [address] Tulio Keenan MD -Cardiac Rehab Work Phone: Start: 11-11-[address] Tulio Keenan MD -Cardiac Rehab Work Phone: Start: 11-09-2024 End: 01-09-2025 Follow-up encounter Savanna Kothari APRN.CNP Work Phone: [facility] [place] Start: 11-09-2024 End: 11-09-[address] Jae Belcher MD Work Phone: [facility] Work Phone: Start: 11-09-2024 End: 11-09-2024 Patient encounter procedure Mendoza JULIEN -Radiology, [facility] Work Phone: Start: 11-09-2024 End: 11-09-2024 ambulatory Mendoza JULIEN Facility:[facility] Start: 11-02-2024 End: 11-02-[address] Jae Belcher MD Work Phone: [facility] Work Phone: Start: 11-02-2024 End: 11-02-[address] Tulio Keenan MD -Cardiac Rehab Work Phone: Start: 11-02-2024 End: 11-02-2024 ambulatory Tulio Keenan Facility:[facility] Start: 10-29-2024 End: 10-29-2024 Follow-up encounter Jae Belcher MD Work Phone: [facility] [place] Start: 10-29-2024 End: 10-29-2024 Patient encounter procedure Mendoza JULIEN -[place] [facility] Work Phone: Start: 10-29-2024 End: 10-29-2024 ambulatory Mendoza JULIEN Facility:[facility] Start: 10-28-2024 End: 10-28-2024 ambulatory JAE BELCHER Facility:[facility] Start: 10-27-2024 ambulatory JAE BELCHER Faci lity:[facility] Start: 10-13-2024 End: 10-13-2024 ambulatory JAE BELCHER Facility:[facility] Start: 10-13-2024 End: 10-13-2024 Patient encounter procedure Savanna Kothari APRN.CNP Work Phone: [facility] Comment on above: Medicare annual well ness visit, subsequent (Primary Dx); Thrombocytosis; Chronic renal impairment, stage 3a (HCC); Aneurysm of ascending aorta without rupture (HCC); Controlled type 2 diabetes mellitus without complication, without long-term current use of insulin (HCC); Essential hypertension, benign; Hyperlipidemia, unspecified hyperlipidemia type Start: 10-12-2024 End: 10-12-2024 ambulatory JAE BELCHER Facility:[facility] Start: 10-07-2024 End: 10-07-2024 Office outpatient visit 15 minutes Joaquim Galloway MD Work Phone: [facility] Comment on above: S/P ascending aortic replacement Start: 10-07-2024 End: 10-07-2024 Subsequent hospital visit by physician Nikhil [id number] X-Ray 1 [facility] Comment on above: Aneurysm of the asce nding aorta, without rupture ([facility] Start: 10-07-2024 End: 10-07-2024 ambulatory ATWATER Jacob [facility] Start: 09-30-2024 End: 09-30-2024 Subsequent hospital visit by physician Nikhil [id number] Ct 1 [facility] Comment on above: Aneurysm of the asce nding aorta, without rupture ([facility] Start: 09-30-2024 End: 09-30-2024 ambulatory [facility] Start: 09-23-2024 ambulatory Mendoza JULIEN Facility:[facility] Start: 09-23-2024 Non-patient / Non-visit Christina hernandez NP-C -[facility] Start: 09-23-2024 End: 09-23-2024 Patient encounter procedure Mendoza JULIEN -Ultrasound, [facility] Work Phone: Start: 09-22-2024 End: 09-23-2024 ambulatory Mendoza JULIEN Facility:[facility] Start: 09-22-2024 Non-patient / Non-visit Christina hernandez NP-C -[facility] Start: 09-22-2024 End: 09-22-2024 Patient encounter procedure Mendoza JULIEN -Ultrasound, [facility] Work Phone: Start: 09-22-2024 End: 09-22-2024 ambulatory Mendoza JULIEN Facility:[facility] Start: 09-16-2024 End: 09-16-2024 Patient encounter procedure Mendoza JULIEN -[place] [facility] Work Phone: Start: 09-16-2024 End: 09-16-2024 ambulatory Mendoza JULIEN Facility:[facility] Start: 09-16-2024 End: 09-16-2024 ambulatory Mendoza JULIEN Facility:[facility] Start: 09-15-2024 End: 09-15-2024 Patient encounter procedure Mendoza JULIEN -Radiology, [facility] Work Phone: Start: 09-15-2024 End: 09-15-2024 ambulatory Mendoza JULIEN Facility:[facility] Start: 09-13-2024 End: 09-14-2024 Refill Jae Belcher MD Work Phone: [facility] [place] Comment on above: Refill Request Start: 09-11-2024 End: 09-11-2024 Patient encounter procedure Mendoza JULIEN -Laboratory Work Phone: Start: 09-11-2024 End: 09-11-2024 ambulatory Mendoza JULIEN Facility:[facility] Start: 09-08-2024 ambulatory Mendoza clemens PA Facility:[facility] Start: 09-08-2024 Non-patient / Non-visit Christina hernandez MEAT SERVICE TEAM MEMBER-C -[facility] Start: 09-08-2024 End: 09-08-2024 Patient encounter procedure Mendoza JULIEN -Ultrasound, [facility] Work Phone: Start: 09-07-2024 End: 09-08-2024 ambulatory Mendoza JULIEN Facility:[facility] Start: 09-07-2024 Non-patient / Non-visit Christina hernandez MEAT SERVICE TEAM MEMBER-C -[facility] Start: 09-07-2024 End: 09-07-2024 Patient encounter procedure Mendoza JULIEN -Ultrasound, [facility] Work Phone: Start: 09-07-2024 End: 09-07-2024 ambulatory Mendoza JULIEN Facility:[facility] Start: 09-03-2024 End: 09-03-2024 Patient encounter procedure Mendoza JULIEN -[facility] Work Phone: Start: 09-03-2024 End: 09-03-2024 ambulatory Mendoza JULIEN Facility:[facility] Start: 09-03-2024 End: 09-03-2024 ambulatory Mendoza JULIEN Facility:[facility] Start: 08-28-2024 End: 08-28-2024 Patient encounter procedure Savanna Kothari APRN.CNP Work Phone: [facility] [place] Comment on above: Bilateral lower extr emity edema (Primary Dx); Palpitations; Dyspnea on exertion; Positional lightheadedness; Venous insufficiency; Weakness; Pleural effusion; S/P aortic aneurysm repair; Blood loss anemia Start: 08-28-2024 End: 08-28-2024 ambulatory JAE BELCHER Facility:[facility] Start: 08-27-2024 End: 08-27-2024 ambulatory JAE JIMÉNEZ BELCHER [facility] Start: 08-25-2024 ambulatory EH MCKEON [facility] Start: 08-19-2024 ambulatory Self Referred Facility: [facility] Start: 08-10-2024 End: 08-10-2024 Evaluation and management of inpatient [facility] Comment on above: Arrived Start: 08-10-2024 End: 08-22-2024 Evaluation and management of inpatient [facility] Work Phone: Start: 07-29-2024 End: 07-29-2024 Subsequent hospital visit by physician Ahu X-Ray 3 [facility] Comment on above: Aneurysm of ascendin g aorta without rupture ([facility]) Start: 07-29-2024 End: 07-29-2024 ambulatory [facility] Start: 07-29-2024 End: 07-29-2024 ambulatory [facility] Start: 07-29-2024 End: 07-29-2024 Encounter for other preprocedural examination [facility] Start: 07-23-2024 End: 07-23-2024 ambulatory JAE BELCHER [facility] [facility] Start: 07-23-2024 End: 07-23-2024 Subsequent hospital visit by physician Screen Mammo [facility] Mamm[facility] Comment on above: Screening mammogram for breast cancer [Z12.31] Start: 07-22-2024 End: 07-22-2024 ambulatory [facility] Start: 07-13-2024 End: 08-08-2024 ambulatory Self Referred Facility:[facility] Start: 06-24-2024 End: 06-24-2024 Office outpatient visit 40 minutes Joqauim Galloway MD Work Phone: [facility] Comment on above: Aneurysm of the asce nding aorta, without rupture (CMS-HCC) Start: 06-24-2024 End: 06-24-2024 ambulatory JOAQUIM GALLOWAY [facility] Start: 06-09-2024 End: 06-09-2024 ambulatory JAE JIMÉNEZ BELCHER [facility] Start: 06-09-2024 End: 06-09-2024 Subsequent hospital visit by physician Flaquita Hendrix MD Work Phone: [facility] Comment on above: Ascending aorta dila tion (CMS-HCC) (Primary Dx); Nonrheumatic mitral valve regurgitation; Nonrheumatic tricuspid valve regurgitation; Nonrheumatic aortic valve insufficiency; Aneurysm of the ascending aorta, without rupture (CMS-HCC) Start: 06-03-2024 End: 06-03-2024 Subsequent hospital visit by physician Med Echo/[facility] Comment on above: Ascending aorta dila tion (CMS-HCC); Nonrheumatic mitral valve regurgitation; Nonrheumatic tricuspid valve regurgitation; Nonrheumatic aortic valve insufficiency Start: 06-03-2024 End: 06-03-2024 ambulatory JAE BELCHER [facility] Start: 05-29-2024 End: 05-29-2024 ambulatory JAE BELCHER Facility:[facility] Start: 05-29-2024 End: 05-29-2024 Office outpatient visit 25 minutes Jae Belcher MD Work Phone: Internal Medicine [place] Comment on above: Encounter for immuni zation (Primary Dx); Burning with urination; Abrasion of right lower extremity, initial encounter; Controlled type 2 diabetes mellitus without complication, without long-term current use of insulin (HCC); Aneurysm of ascending aorta without rupture (HCC) Start: 05-27-2024 End: 05-27-2024 Office outpatient new 60 minutes Joaquim Galloway MD Work Phone: [facility] Comment on above: Ascending aorta dila tion [place] Nonrheumatic mitral valve regurgitation; Nonrheumatic tricuspid valve regurgitation; Nonrheumatic aortic valve insufficiency; Shortness of breath Start: 05-27-2024 End: 05-27-2024 ambulatory JOAQUIM GALLOWAY [facility] Start: 05-23-2024 End: 05-25-2024 Telephone encounter Claribel Hooper APRN.ENVIRONMENTAL SYSTEMS COORDINATOR Work Phone: [place] [facility] Comment on above: Results Start: 05-22-2024 End: 05-22-2024 Subsequent hospital visit by physician Rad External Film EF RAD EXTERNAL FILM [facility]UAL Comment on above: Ascending aortic ane urysm, unspecified whether ruptured [place] Start: 05-22-2024 End: 05-22-2024 ambulatory JOAQUIM GALLOWAY [facility] Start: 05-20-2024 End: 05-20-2024 Patient encounter procedure Torri JULIEN Work Phone: [facility] Comment on above: Urinary frequency (P rimary Dx) Start: 05-20-2024 End: 05-20-2024 ambulatory JAE BELCHER Facility:[facility] Start: 05-08-2024 End: 05-08-2024 Refill Savanna Kothari APRN.ENVIRONMENTAL SYSTEMS COORDINATOR Work Phone: [facility] [place] Comment on above: Refill Request Start: 05-05-2024 End: 05-05-2024 ambulatory Roman Alberto Facility:[facility] Start: 03-23-2024 Telephone encounter Jae bueno MD Work Phone: Internal Medicine [place] Comment on above: Results Start: 03-19-2024 End: 03-19-2024 ambulatory JAE BELCHER Facility:[facility] Start: 03-19-2024 End: 03-19-2024 Subsequent hospital visit by physician [facility] Work Phone: Radiology Comment on above: Chronic renal impair ment, stage 3a (HCC) [N18.31] Start: 03-11-2024 End: 03-11-2024 Nursing evaluation of patient and report Abdifatah Avelar RN Work Phone: Endocrinology Comment on above: Prediabetes (Primary Dx) Start: 03-11-2024 End: 03-11-2024 ambulatory JAE BELCHER Facility:[facility] Start: 02-25-2024 End: 02-25-2024 ambulatory JAE BELCHER Facility:[facility] Start: 02-25-2024 End: 02-25-2024 Patient encounter procedure Jae Belcher MD Work Phone: Internal Medicine [place] Comment on above: Controlled type 2 di abetes mellitus without complication, without long-term current use of insulin ([facility]) (Primary Dx); Chronic renal impairment, stage 3a ([facility]) Start: 02-24-2024 End: 02-24-2024 ambulatory JAE BELCHER Facility:[facility] Start: 02-17-2024 Telephone encounter Jae bueno MD Work Phone: Internal Medicine [place] Comment on above: Orders Start: 01-02-2024 End: 01-02-2024 Patient encounter procedure Amanda Fleming Work Phone: Podiatry Comment on above: Hallux rigidus of catia th feet (Primary Dx); Contusion of lesser toe of left foot without damage to nail, initial encounter Start: 01-02-2024 End: 01-02-2024 ambulatory AMANDA FLEMING Facility:[facility] Start: 01-02-2024 End: 01-02-2024 Subsequent hospital visit by physician Yuliana [facility] Al[place]renga Work Phone: Radiology Comment on above: Pain [R52] Start: 12-19-2023 Telephone encounter Jae bueno MD Work Phone: Internal [facility] [place] Comment on above: Patient Question Start: 12-10-2023 End: 12-10-[address] Work Phone: [facility] Start: 12-10-2023 End: 12-10-2023 Nutrition therapy [address] Work Phone: Nutrition Therapy Comment on above: Nutrition Assessment ; Patient Education Start: 11-19-2023 ambulatory Jae godoy MD Work Phone: Internal Medicine [place] Comment on above: Test Results 11/15/23 Start: 11-15-2023 End: 11-15-2023 ambulatory JAE BELCHER Facility:[facility] Start: 11-11-2023 Refill Savanna simms APRN.ENVIRONMENTAL SYSTEMS COORDINATOR Work Phone: Internal Medicine [place] Comment on above: Refill Request Start: 10-25-2023 Telephone encounter Jae bueno MD Work Phone: Internal [facility] [place] Comment on above: Patient Update Start: 10-17-2023 Orders Only Jae godoy MD Work Phone: Internal Medicine [place] Comment on above: Chronic renal impair ment, stage 3a (HCC) (Primary Dx) Start: 09-03-2023 End: 09-03-[address] Jae Belcher Work Phone: [facility] Work Phone: Start: 08-30-2023 End: 08-30-[address] Jae Belcher Work Phone: [facility] Work Phone: Start: 08-30-2023 End: 08-30-[address] Jae Belcher Work Phone: [facility]Cardi[facility] Work Phone: Start: 08-20-2023 End: 08-20-[address] Jae Belcher Work Phone: [facility] Work Phone: Start: 08-13-2023 End: 08-13-[address] Jae Belcher Work Phone: [facility]-Cat Scan, [facility] Work Phone: Start: 07-23-2023 Documentation procedure Mammog reynaldo Coordinator [facility] Start: 07-23-2023 Letter encounter Mammography Coordinator [facility] Start: 07-23-2023 End: 07-23-2023 Subsequent hospital visit by physician Screen Mammo [facility] Mamm[facility] Start: 05-13-2023 Refill Savanna Older CONSULTING SOLUTION MANAGER .ENVIRONMENTAL SYSTEMS COORDINATOR Work Phone: [facility] Comment on above: Refill Request Start: 04-25-2023 Refill Jae godoy MD Work Phone: [facility] Comment on above: Refill Request; Refi ll Request Start: 03-05-2023 Refill Savanna Older CONSULTING SOLUTION MANAGER .ENVIRONMENTAL SYSTEMS COORDINATOR Work Phone: [facility] Comment on above: Refill Request Start: 01-09-2023 End: 01-09-[address] Jae Belcher Work Phone: [facility] Work Phone: Start: 01-09-2023 End: 01-09-[address] Jae Belcher Work Phone: [facility]-Laboratory Start: 11-29-2022 End: 11-29-[address] Jae Belcher Work Phone: [facility] [facility] Start: 11-13-2022 Refill Savanna Older CONSULTING SOLUTION MANAGER .ENVIRONMENTAL SYSTEMS COORDINATOR Work Phone: [facility] Comment on above: Refill Request Start: 08-28-2022 End: 08-28-2022 Nursing evaluation of patient and report Mi Nurse Work Phone: [facility] Comment on above: Need for vaccination (Primary Dx) Start: 08-22-2022 End: 08-22-2022 Patient encounter procedure Savanna Older CONSULTING SOLUTION MANAGER.ENVIRONMENTAL SYSTEMS COORDINATOR Work Phone: Internal [facility] Comment on above: Medicare annual well ness visit, subsequent (Primary Dx); Essential hypertension, benign; Impaired fasting glucose Start: 08-16-2022 End: 08-16-[address] Pantera Thomas III Work Phone: [facility] Work Phone: Start: 08-16-2022 End: 08-16-[address] Pantera Thomas III Work Phone: [facility]-Outpatient Bone Densitometry Start: 08-14-2022 End: 08-14-[address] Pantera Thomas III Work Phone: [facility]-Cat Scan, [facility] Start: 08-08-2022 Refill Savanna LaraENVIRONMENTAL SYSTEMS COORDINATOR Work Phone: [facility] Comment on above: Refill Request Start: 07-24-2022 End: 07-24-2022 ambulatory Jennifer Luong APRN.ENVIRONMENTAL SYSTEMS COORDINATOR Work Phone: Hematology/Oncology Comment on above: Ductal carcinoma in situ (DCIS) of right breast (Primary Dx) Start: 07-24-2022 End: 07-24-2022 Patient encounter procedure Jennifer Luong APRN.ENVIRONMENTAL SYSTEMS COORDINATOR Work Phone: [facility] Start: 07-05-2022 End: 07-05-[address] Pantera Thomas III Work Phone: [facility] [facility] Start: 05-08-2022 Refill [facility] Provider [facility] Comment on above: Refill Request Start: 08-27-2018 Encounter for other preprocedural examination [facility] Start: 08-27-2018 Patient encounter procedure [facility] Procedures Date Procedure Procedure Detail Performing [...] Start: 08-22-2024 Renal function panel Yogesh Mckeon CONSULTING SOLUTION MANAGER-ENVIRONMENTAL SYSTEMS COORDINATOR Work Phone: Start: 08-21-2024 Urnls dip stick/tabl et rgnt auto w/o microscopy Adriana Adventism PA-C Work Phone: Start: 08-21-2024 Radiologic exam ches t single view Adriana Adventism PA-C Work Phone: Start: 08-21-2024 Blood count complete automated Adriana Adventism PA-C Work Phone: Start: 08-21-2024 AIRWAY CLEARANCE TECHNIQUES Adriana Adventism PA-C Work Phone: Start: 08-21-2024 Glucose quantitative blood xcpt reagent strip Joaquim Galloway MD Work Phone: Start: 08-21-2024 EXTRA TUBES Joaquim alanis MD Work Phone: Start: 08-21-2024 LAVENDER TOP Joaquim alanis MD Work Phone: Start: 08-21-2024 Renal function panel Yogesh Mckeon CONSULTING SOLUTION MANAGER-ENVIRONMENTAL SYSTEMS COORDINATOR Work Phone: Start: 08-20-2024 Glucose quantitative blood xcpt reagent strip Joaquim Galloway MD Work Phone: Start: 08-20-2024 Glucose quantitative blood xcpt reagent strip Joaquim Galloway MD Work Phone: Start: 08-20-2024 Glucose quantitative blood xcpt reagent strip Joaquim Galloway MD Work Phone: Start: 08-20-2024 AIRWAY CLEARANCE TECHNIQUES Julissa Shahnaz Dotty CONSULTING SOLUTION MANAGER-ENVIRONMENTAL SYSTEMS COORDINATOR Work Phone: Start: 08-20-2024 EXTRA TUBES Joaquim alanis MD Work Phone: Start: 08-20-2024 LAVENDER TOP Joaquim alanis MD Work Phone: Start: 08-20-2024 Renal function panel Yogesh sammi Mckeon CONSULTING SOLUTION MANAGER-ENVIRONMENTAL SYSTEMS COORDINATOR Work Phone: Start: 08-19-2024 AIRWAY CLEARANCE TECHNIQUES Julissa Christie Dotty CONSULTING SOLUTION MANAGER-ENVIRONMENTAL SYSTEMS COORDINATOR Work Phone: Start: 08-19-2024 Glucose quantitative blood xcpt reagent strip Joaquim Galloway MD Work Phone: Start: 08-19-2024 AIRWAY CLEARANCE TECHNIQUES Julissa Shahnaz Dotty CONSULTING SOLUTION MANAGER-ENVIRONMENTAL SYSTEMS COORDINATOR Work Phone: Start: 08-19-2024 Radiologic exam ches t single view Eh Keren Mckeon CONSULTING SOLUTION MANAGER-ENVIRONMENTAL SYSTEMS COORDINATOR Work Phone: Start: 08-19-2024 Glucose quantitative blood xcpt reagent strip Joaquim Galloway MD Work Phone: Start: 08-19-2024 Glucose quantitative blood xcpt reagent strip Joaquim Galloway MD Work Phone: Start: 08-19-2024 Ecg routine ecg w/le ast 12 lds trcg only w/o i&r Adriana Garnica PA-C Work Phone: Start: 08-19-2024 Renal function panel Yogesh sammi Mckeon CONSULTING SOLUTION MANAGER-ENVIRONMENTAL SYSTEMS COORDINATOR Work Phone: Start: 08-19-2024 Glucose quantitative blood xcpt reagent strip Joaquim Galloway MD Work Phone: Start: 08-18-2024 Glucose quantitative blood xcpt reagent strip Joaquim Galloway MD Work Phone: Start: 08-18-2024 Glucose quantitative blood xcpt reagent strip Joaquim Galloway MD Work Phone: Start: 08-18-2024 Radiologic exam ches t single view Pee Tavares CONSULTING SOLUTION MANAGER-ENVIRONMENTAL SYSTEMS COORDINATOR Work Phone: Start: 08-18-2024 Thoracentesis needle /cath pleura w/imaging Eh Mckeon CONSULTING SOLUTION MANAGER-ENVIRONMENTAL SYSTEMS COORDINATOR Work Phone: Start: 08-18-2024 Glucose quantitative blood xcpt reagent strip Joaquim Galloway MD Work Phone: Start: 08-18-2024 Radiologic exam ches t 2 views Eh Mckeon CONSULTING SOLUTION MANAGER-ENVIRONMENTAL SYSTEMS COORDINATOR Work Phone: Start: 08-18-2024 AIRWAY CLEARANCE TECHNIQUES Julissa Storm CONSULTING SOLUTION MANAGER-ENVIRONMENTAL SYSTEMS COORDINATOR Work Phone: Start: 08-18-2024 Glucose quantitative blood xcpt reagent strip Joaquim Galloway MD Work Phone: Start: 08-18-2024 AIRWAY CLEARANCE TECHNIQUES Julissa Storm CONSULTING SOLUTION MANAGER-ENVIRONMENTAL SYSTEMS COORDINATOR Work Phone: Start: 08-18-2024 Glucose quantitative blood xcpt reagent strip Joaquim Galloway MD Work Phone: Start: 08-18-2024 Renal function panel Ki sammi Mckeon CONSULTING SOLUTION MANAGER-ENVIRONMENTAL SYSTEMS COORDINATOR Work Phone: Start: 08-17-2024 Glucose quantitative blood xcpt reagent strip Joaquim Galloway MD Work Phone: Start: 08-17-2024 Glucose quantitative blood xcpt reagent strip Joaquim Galloway MD Work Phone: Start: 08-17-2024 Glucose quantitative blood xcpt reagent strip Joaquim Galloway MD Work Phone: Start: 08-17-2024 AIRWAY CLEARANCE TECHNIQUES Julissa Storm CONSULTING SOLUTION MANAGER-ENVIRONMENTAL SYSTEMS COORDINATOR Work Phone: Start: 08-17-2024 Radiologic exam ches t 2 views Eh Mckeon CONSULTING SOLUTION MANAGER-ENVIRONMENTAL SYSTEMS COORDINATOR Work Phone: Start: 08-17-2024 AIRWAY CLEARANCE TECHNIQUES Julissa Storm CONSULTING SOLUTION MANAGER-ENVIRONMENTAL SYSTEMS COORDINATOR Work Phone: Start: 08-17-2024 End: 08-17-2024 Renal function panel Eh Mckeon CONSULTING SOLUTION MANAGER-ENVIRONMENTAL SYSTEMS COORDINATOR Work Phone: Start: 08-16-2024 Glucose quantitative blood xcpt reagent strip Joaquim Galloway MD Work Phone: Start: 08-16-2024 Glucose quantitative blood xcpt reagent strip Jaoquim Galloway MD Work Phone: Start: 08-16-2024 AIRWAY CLEARANCE TECHNIQUES Julissa Christie Storm CONSULTING SOLUTION MANAGER-ENVIRONMENTAL SYSTEMS COORDINATOR Work Phone: Start: 08-16-2024 AIRWAY CLEARANCE TECHNIQUES Julissa Christie Dotty CONSULTING SOLUTION MANAGER-ENVIRONMENTAL SYSTEMS COORDINATOR Work Phone: Start: 08-16-2024 Glucose quantitative blood xcpt reagent strip Jose Roberto L Pack DO Work Phone: Start: 08-16-2024 Glucose quantitative blood xcpt reagent strip Jose Roberto L Pack DO Work Phone: Start: 08-16-2024 AIRWAY CLEARANCE TECHNIQUES Julissa Christie Storm CONSULTING SOLUTION MANAGER-ENVIRONMENTAL SYSTEMS COORDINATOR Work Phone: Start: 08-16-2024 End: 08-16-2024 Renal function panel Adriana Candelario Work Phone: Start: 08-15-2024 Glucose quantitative blood xcpt reagent strip Jose Roberto L Pack DO Work Phone: Start: 08-15-2024 Glucose quantitative blood xcpt reagent strip Jose Roberto L Pack DO Work Phone: Start: 08-15-2024 AIRWAY CLEARANCE TECHNIQUES Julissa Christie Storm CONSULTING SOLUTION MANAGER-ENVIRONMENTAL SYSTEMS COORDINATOR Work Phone: Start: 08-15-2024 AIRWAY CLEARANCE TECHNIQUES Julissa Christie Storm CONSULTING SOLUTION MANAGER-ENVIRONMENTAL SYSTEMS COORDINATOR Work Phone: Start: 08-15-2024 Glucose quantitative blood xcpt reagent strip Jose Roberto L Pack DO Work Phone: Start: 08-15-2024 Glucose quantitative blood xcpt reagent strip Jose Roberto L Pack DO Work Phone: Start: 08-15-2024 AIRWAY CLEARANCE TECHNIQUES Julissa Storm CONSULTING SOLUTION MANAGER-ENVIRONMENTAL SYSTEMS COORDINATOR Work Phone: Start: 08-15-2024 Renal function panel Tahmina Garnica PA-C Work Phone: Start: 08-14-2024 Glucose quantitative blood xcpt reagent strip Jose Roberto L Pack DO Work Phone: Start: 08-14-2024 Smr prim src gram/gi emsa stain bct fungi/cell Julissa Storm CONSULTING SOLUTION MANAGER-ENVIRONMENTAL SYSTEMS COORDINATOR Work Phone: Start: 08-14-2024 AIRWAY CLEARANCE TECHNIQUES Julissa Storm CONSULTING SOLUTION MANAGER-ENVIRONMENTAL SYSTEMS COORDINATOR Work Phone: Start: 08-14-2024 End: 08-14-2024 Chloride gelyd Eh S Mckeon CONSULTING SOLUTION MANAGER-ENVIRONMENTAL SYSTEMS COORDINATOR Work Phone: Start: 08-14-2024 Glucose quantitative blood xcpt reagent strip Jose Roberto L Pack DO Work Phone: Start: 08-14-2024 AIRWAY CLEARANCE TECHNIQUES Julissa Storm CONSULTING SOLUTION MANAGER-ENVIRONMENTAL SYSTEMS COORDINATOR Work Phone: Start: 08-14-2024 End: 08-14-2024 Chloride bld Eh Veliz Mckeon CONSULTING SOLUTION MANAGER-ENVIRONMENTAL SYSTEMS COORDINATOR Work Phone: Start: 08-14-2024 Radiologic exam ches t single view Eh Keren GonzalezMckeon CONSULTING SOLUTION MANAGER-ENVIRONMENTAL SYSTEMS COORDINATOR Work Phone: Start: 08-14-2024 AIRWAY CLEARANCE TECHNIQUES Julissa Storm CONSULTING SOLUTION MANAGER-ENVIRONMENTAL SYSTEMS COORDINATOR Work Phone: Start: 08-14-2024 Ecg routine ecg w/le ast 12 lds trcg only w/o i&r Adriana Garnica PA-C Work Phone: Start: 08-14-2024 Renal function panel Tahmina Garnica PA-C Work Phone: Start: 08-13-2024 Glucose quantitative blood xcpt reagent strip Jose Roberto L Pack DO Work Phone: Start: 08-13-2024 Glucose quantitative blood xcpt reagent strip Jose Roberto L Pack DO Work Phone: Start: 08-13-2024 AIRWAY CLEARANCE TECHNIQUES Julissa Storm CONSULTING SOLUTION MANAGER-ENVIRONMENTAL SYSTEMS COORDINATOR Work Phone: Start: 08-13-2024 Glucose quantitative blood xcpt reagent strip Jose Roberto L Pack DO Work Phone: Start: 08-13-2024 AIRWAY CLEARANCE TECHNIQUES Julissa Storm CONSULTING SOLUTION MANAGER-ENVIRONMENTAL SYSTEMS COORDINATOR Work Phone: Start: 08-13-2024 Chloride bld Eh Mckeon CONSULTING SOLUTION MANAGER-ENVIRONMENTAL SYSTEMS COORDINATOR Work Phone: Start: 08-13-2024 Radiologic exam ches t single view Eh Mckeon CONSULTING SOLUTION MANAGER-ENVIRONMENTAL SYSTEMS COORDINATOR Work Phone: Start: 08-13-2024 Glucose quantitative blood xcpt reagent strip Jose Roberto L S*Bio DO Work Phone: Start: 08-13-2024 AIRWAY CLEARANCE TECHNIQUES Julissa Christie Dotty CONSULTING SOLUTION MANAGER-ENVIRONMENTAL SYSTEMS COORDINATOR Work Phone: Start: 08-13-2024 Ecg routine ecg w/le ast 12 lds trcg only w/o i&r Adriana Garnica PA-C Work Phone: Start: 08-13-2024 Renal function panel Ca masood Garnica PA-C Work Phone: Start: 08-12-2024 Urinalysis microscop ic panel - Urine Qualitative by Automated Jasmine Lacy CONSULTING SOLUTION MANAGER-ENVIRONMENTAL SYSTEMS COORDINATOR Work Phone: Start: 08-12-2024 End: 08-12-2024 Urnls dip stick/tablet reagent auto microscopy Jasmine Lacy CONSULTING SOLUTION MANAGER-ENVIRONMENTAL SYSTEMS COORDINATOR Work Phone: Start: 08-12-2024 End: 08-12-2024 Chloride bld Jasmine Lacy CONSULTING SOLUTION MANAGER-CN P Work Phone: Start: 08-12-2024 AIRWAY CLEARANCE TECHNIQUES Julissa Christie Bauer CONSULTING SOLUTION MANAGER-ENVIRONMENTAL SYSTEMS COORDINATOR Work Phone: Start: 08-12-2024 End: 08-12-2024 Blood count complete auto&auto difrntl wbc Jose Roberto L Pack DO Work Phone: Start: 08-12-2024 Radiologic exam ches t single view Eh Mckeon CONSULTING SOLUTION MANAGER-ENVIRONMENTAL SYSTEMS COORDINATOR Work Phone: Start: 08-12-2024 Echo transthorc r-t 2d w/wo m-mode rec f-up/lmtd Eh Mckeon CONSULTING SOLUTION MANAGER-ENVIRONMENTAL SYSTEMS COORDINATOR Work Phone: Start: 08-12-2024 End: 08-12-2024 Calcium ionized Eh Mckeon CONSULTING SOLUTION MANAGER-ENVIRONMENTAL SYSTEMS COORDINATOR Work Phone: Start: 08-12-2024 PREPARE RBC Eh Mckeon CONSULTING SOLUTION MANAGER-ENVIRONMENTAL SYSTEMS COORDINATOR Work Phone: Start: 08-12-2024 AIRWAY CLEARANCE TECHNIQUES Julissa Storm CONSULTING SOLUTION MANAGER-ENVIRONMENTAL SYSTEMS COORDINATOR Work Phone: Start: 08-12-2024 End: 08-12-2024 Blood count hematocrit Eh Singh n CONSULTING SOLUTION MANAGER-ENVIRONMENTAL SYSTEMS COORDINATOR Work Phone: Start: 08-12-2024 Glucose quantitative blood xcpt reagent strip Jose Roberto Villalba Pack DO Work Phone: Start: 08-12-2024 AIRWAY CLEARANCE TECHNIQUES Julissa Storm CONSULTING SOLUTION MANAGER-ENVIRONMENTAL SYSTEMS COORDINATOR Work Phone: Start: 08-12-2024 End: 08-12-2024 Ecg routine ecg w/least 12 lds trcg only w/o i&r Adriana Garnica PA-C Work Phone: Start: 08-12-2024 End: 08-12-2024 TRANSFUSE RED BLOOD CELLS Eh Zamora pedro CONSULTING SOLUTION MANAGER-ENVIRONMENTAL SYSTEMS COORDINATOR Work Phone: Start: 08-12-2024 Glucose quantitative blood xcpt reagent strip Jose Roberto Villalba Pack DO Work Phone: Start: 08-12-2024 Radiologic exam ches t single view Eh Mckeon CONSULTING SOLUTION MANAGER-ENVIRONMENTAL SYSTEMS COORDINATOR Work Phone: Start: 08-12-2024 AIRWAY CLEARANCE TECHNIQUES Julissa Christie Dotty CONSULTING SOLUTION MANAGER-ENVIRONMENTAL SYSTEMS COORDINATOR Work Phone: Start: 08-12-2024 Renal function panel Tahmina Garnica PA-C Work Phone: Start: 08-12-2024 Blood count complete automated Thomasyl Bucky Liscoe CONSULTING SOLUTION MANAGER-ENVIRONMENTAL SYSTEMS COORDINATOR Work Phone: Start: 08-11-2024 End: 08-12-2024 TRANSFUSE RED BLOOD CELLS Thomasyl Bucky Lisc oe CONSULTING SOLUTION MANAGER-ENVIRONMENTAL SYSTEMS COORDINATOR Work Phone: Start: 08-11-2024 PREPARE RBC Bremarvyl Bucky Liscoe CONSULTING SOLUTION MANAGER-ENVIRONMENTAL SYSTEMS COORDINATOR Work Phone: Start: 08-11-2024 Glucose quantitative blood xcpt reagent strip Jose Roberto L Pack DO Work Phone: Start: 08-11-2024 AIRWAY CLEARANCE TECHNIQUES Julissa Storm CONSULTING SOLUTION MANAGER-ENVIRONMENTAL SYSTEMS COORDINATOR Work Phone: Start: 08-11-2024 AIRWAY CLEARANCE TECHNIQUES Julissa Shahnaz Dotty CONSULTING SOLUTION MANAGER-ENVIRONMENTAL SYSTEMS COORDINATOR Work Phone: Start: 08-11-2024 End: 08-11-2024 Chloride bld Alexy Burton CONSULTING SOLUTION MANAGER-ENVIRONMENTAL SYSTEMS COORDINATOR Work Phone: Start: 08-11-2024 Glucose quantitative blood xcpt reagent strip Jose Roberto L Pack DO Work Phone: Start: 08-11-2024 Glucose quantitative blood xcpt reagent strip Jose Roberto L Pack DO Work Phone: Start: 08-11-2024 Radiologic exam ches t single view Adriana Garnica PA-C Work Phone: Start: 08-11-2024 Renal function panel Tahmina Garnica PA-C Work Phone: Start: 08-10-2024 AIRWAY CLEARANCE TECHNIQUES Debramarvfrancesca Lawler Liscoe CONSULTING SOLUTION MANAGER-ENVIRONMENTAL SYSTEMS COORDINATOR Work Phone: Start: 08-10-2024 Glucose quantitative blood xcpt reagent strip Jose Roberto L Pack DO Work Phone: Start: 08-10-2024 End: 08-10-2024 TRANSFUSE CRYOPRECIPITATE POOLS Adriana JULIEN-C Work Phone: Start: 08-10-2024 PREPARE CRYOPRECIPIT ATE POOLS Adriana JULIEN-C Work Phone: Start: 08-10-2024 End: 08-10-2024 Blood count complete automated Adriana Granica PA-C Work Phone: Start: 08-10-2024 Radiologic exam ches t single view Adriana JULIEN-C Work Phone: Start: 08-10-2024 End: 08-10-2024 Chloride bld Adriana JULIEN-C Work Phone: Start: 08-10-2024 End: 08-10-2024 Ecg routine ecg w/least 12 lds trcg only w/o i&r Adriana JULIEN-Andree Work Phone: Start: 08-10-2024 PULSE OXIMETRY, CONTINUOUS Adriana Garnica PA-C Work Phone: Start: 08-10-2024 End: 08-10-2024 TRANSFUSE PLATELETS Barrett Christie Work Phone: Start: 08-10-2024 Chloride bld Joaquim alanis MD Work Phone: Start: 08-10-2024 End: 08-10-2024 TRANSFUSE PLATELETS Barrett ESTEBAN A Work Phone: Start: 08-10-2024 End: 08-10-2024 Coagulation time activated Joaquim Galloway MD Work Phone: Start: 08-10-2024 PREPARE PLATELETS Rip JANG Work Phone: Start: 08-10-2024 End: 08-10-2024 Coagulation [...] Start: 08-10-2024 ANESTHESIA INTRAOPER ATIVE ANASTASIA Jah Bhattws DO Work Phone: Start: 07-23-2024 Mammography Ahu [...] et rgnt auto w/o microscopy Claribel Hooper CONSULTING SOLUTION MANAGER.ENVIRONMENTAL SYSTEMS COORDINATOR Work Phone: Start: 02-25-2024 Adult depression scr eening assessment Savanna Kothari CONSULTING SOLUTION MANAGER.ENVIRONMENTAL SYSTEMS COORDINATOR Work Phone: Start: 08-29-2023 Lipid 1995 panel - S devin or Plasma Jae Belcher MD Work Phone: Start: 08-13-2023 CT angiography of ch est with contrast Dr. Jae Belcher Work Phone: Start: 07-23-2023 Mammography Rad Film Start: 08-29-2022 Lipid 1996 panel - S devin or Plasma Screen Wstr Start: 08-28-2022 [email or web address] COVI D-19 BIVALENT BOOSTER VACCINE, AGE 12+ YR Savanna Older CONSULTING SOLUTION MANAGER.ENVIRONMENTAL SYSTEMS COORDINATOR Work Phone: Start: 08-16-2022 Dual energy X-ray absorptiometry Dr. Pantera Thomas III Work Phone: Start: 08-14-2022 CT angiography of ch est with contrast Dr. Pantera Thomas III Work Phone: Start: 07-23-2022 Mammography Jennifer Menon enter CONSULTING SOLUTION MANAGER.ENVIRONMENTAL SYSTEMS COORDINATOR Work Phone: Start: 07-21-2021 Adult depression scr eening assessment [facility] Provider Start: 07-20-2021 Mammography [facility] Provid er Start: 08-08-2018 Colonoscopy [facility] Provid er Plan of Treatment Date Care Activity Detail Author Start: 08-29-2028 Lipid panel Lipid Screening [facility] Start: 08-08-2028 Colonoscopy COLONOSCOPY [facility] Start: 08-08-2028 COLORECTAL CANCER SCREENING COLORECTAL CANCER SCREENING [facility] Start: 08-08-2028 Screening for malignant neoplasm of colon [facility] Start: 08-29-2027 Lipid 1996 panel - Serum or Plasma Lipid Screening [facility] Start: 08-29-2027 LIPID SCREEN LIPID SCREEN [facility] Start: 02-23-2027 Diabetes Screening Diabetes Screening [facility] Start: 11-14-2026 Diabetes Screening Diabetes Screening [facility] Start: 10-16-2026 Diabetes Screening Diabetes Screening [facility] Start: 08-25-2026 LIPID SCREEN LIPID SCREEN [facility] Start: 10-28-2025 Creatinine measurement Serum Creatinine [facility] Start: 10-28-2025 Hepatitis B screening Urine Albumin:Creatinine Ratio [facility] Start: 10-28-2025 Hepatitis B surface antibody level LDL Cholesterol [facility] Start: 10-13-2025 Annual PCP Team Chronic Disease Visit Annual PCP Team Chronic Disease Visit [facility] Start: 10-13-2025 BP Controlled (<130/80) BP Controlled (<130/80) [facility] Start: 10-13-2025 Urine microalbumin profile DTaP,Tdap,Td Vaccine (2 - Td or Tdap) [facility] Comment on above: Postponed from 06/21/2019 (Declined at t his time) Start: 10-12-2025 Creatinine measurement Serum Creatinine [facility] Start: 10-12-2025 Hepatitis B screening Urine Albumin:Creatinine Ratio [facility] Start: 10-12-2025 Hepatitis B surface antibody level LDL Cholesterol [facility] Start: 08-29-2025 DIABETES SCREEN DIABETES SCREEN [facility] Start: 08-29-2025 Diabetes Screening Diabetes Screening [facility] Start: 08-28-2025 Annual PCP Team Chronic Disease Visit Annual PCP Team Chronic Disease Visit [facility] Start: 08-28-2025 BP Controlled (<130/80) BP Controlled (<130/80) [facility] in Start: 08-22-2025 Creatinine measurement Serum Creatinine [facility] Start: 08-21-2025 Diabetes mellitus screening [facility] Start: 08-10-2025 Diabetes mellitus screening Diabetes Screening [facility] Start: 07-23-2025 Screening for malignant neoplasm of breast [facility] Start: 06-03-2025 Creatinine measurement Serum Creatinine [facility] Start: 05-29-2025 Annual PCP Team Chronic Disease Visit Annual PCP Team Chronic Disease Visit [facility] Start: 05-29-2025 BP Controlled (<130/80) BP Controlled (<130/80) [facility] in Start: 05-29-2025 Covid-19 Vaccine () Covid-19 Vaccine () [facility] Comment on above: Postponed from 05/10/2024 (Declined at t his time) Start: 05-29-2025 Covid-19 Vaccine () Covid-19 Vaccine () [facility] Comment on above: Postponed from 05/10/2024 (Declined at t his time) Start: 05-29-2025 Hemoglobin A1c measurement [facility] Start: 05-20-2025 BP Controlled (<130/80) BP Controlled (<130/80) [facility] Start: 04-27-2025 Hemoglobin A1c measurement HbA1C [facility] Start: 04-13-2025 End: 04-13-2025 Patient encounter procedure 04/13/2025 10:40 AM EDT Office Visit Internal [facility] [place] [address] [facility] [place] [address] Savanna Kothari, CONSULTING SOLUTION MANAGER.ENVIRONMENTAL SYSTEMS COORDINATOR [address] [place] [address] follow up 6 months [facility] [place] Comment on above: follow up 6 months Start: 04-11-2025 Hemoglobin A1c measurement HbA1C [facility] Start: 02-24-2025 Annual PCP Team Chronic Disease Visit Annual PCP Team Chronic Disease Visit [facility] Start: 02-24-2025 Anxiety Screening Anxiety Screening [facility] Start: 02-24-2025 BP Controlled (<130/80) BP Controlled (<130/80) [facility] Start: 02-24-2025 Depression Screening Depression Screening [facility] Start: 02-23-2025 Creatinine measurement Serum Creatinine [facility] Start: 02-23-2025 Diabetes mellitus screening Diabetes Screening [facility] Start: 02-23-2025 Hemoglobin A1c measurement Diabetes: Hemoglobin A1C [facility] Start: 01-18-2025 Patient referral [facility] Work Phone: Start: 01-01-2025 Diabetic foot examination Diabetic Foot Exam [facility] Start: 2024 RSV Vaccine (1 - 1-dose 75+ series) RSV Vaccine (1 - 1-dose 75+ series) [facility] Start: 11-26-2024 Hemoglobin A1c measurement HbA1C [facility] Start: 11-16-2024 Patient discharge [facility] Start: 11-16-2024 Vital signs measurements [facility] Start: 11-14-2024 Creatinine measurement Serum Creatinine [facility] Start: 11-12-2024 Thoracentesis needle/cath pleura w/imaging ASPIRATE PLEURA W/ IMAGING [facility] Start: 11-12-2024 Patient discharge [facility] Start: 11-12-2024 Vital signs measurements [facility] Start: 11-02-2024 Patient referral to dietitian [facility] Start: 10-29-2024 Patient referral [facility] Work Phone: Start: 10-16-2024 Creatinine measurement Serum Creatinine [facility] Start: 10-13-2024 End: 01-12-2025 CBC W Auto Differential panel - Blood COMPLETE BLOOD COUNT AND DIFFERENTIAL Lab Routine Thrombocytosis Expected: 10/13/2024, Expires: 01/12/2025 [facility] Work Phone: Comment on above: Expected: 10/13/2024, Expires: Start: 10-13-2024 End: 01-12-2025 Ferritin [Mass/volume] in Serum or Plasma FERRITIN Lab Routine Thrombocytosis Expected: 10/13/2024, Expires: 01/12/2025 [facility] Comment on above: Expected: 10/13/2024, Expires: Start: 10-12-2024 End: 10-12-2024 Patient encounter procedure 10/12/2024 12:40 PM EST Office Visit Internal Medicine [place] [address] [place], [place] [id number] Savanna Kothari, CONSULTING SOLUTION MANAGER.ENVIRONMENTAL SYSTEMS COORDINATOR [address] [place], [place] [id number] Medicare Wellness [facility] [place] Comment on above: Medicare Wellness Start: 10-07-2024 End: 10-07-2024 ambulatory [facility] Start: 10-07-2024 End: 10-07-2024 Patient encounter procedure 10/07/2024 3:45 PM EST Office Visit [facility] [address] [place] [id number] [place] [address] [address] Department [place] [address] [facility] Start: 09-23-2024 Patient discharge [facility] Start: 09-23-2024 Vital signs measurements [facility] Start: 09-22-2024 Thoracentesis needle/cath pleura w/imaging ASPIRATE PLEURA W/ IMAGING [facility] Start: 09-22-2024 Patient discharge [facility] Start: 09-22-2024 Vital signs measurements [facility] Start: 09-09-2024 Advance Directive Discussion Advance Directive Discussion [facility] Start: 09-08-2024 Patient discharge [facility] Start: 09-08-2024 Vital signs measurements [facility] Start: 09-08-2024 End: 09-08-2024 Patient encounter procedure 09/08/2024 10:00 AM EST Office Visit [facility] [place] [address] [place] [address] Savanna Kothari, CONSULTING SOLUTION MANAGER.ENVIRONMENTAL SYSTEMS COORDINATOR [address] [place] [address] Medicare Wellness [facility] [place] Comment on above: Medicare Wellness Start: 09-07-2024 Patient discharge [facility] Start: 09-07-2024 Vital signs measurements [facility] Start: 08-29-2024 Complete blood count Hemoglobin/Hematocrit [facility] Start: 08-29-2024 Hepatitis B surface antibody level LDL Cholesterol [facility] Start: 08-28-2024 End: 11-27-2024 Comprehensive metabolic 2000 panel - Serum or Plasma COMPREHENSIVE METABOLIC PANEL Lab Routine Controlled type 2 diabetes mellitus without complication, without long-term current use of insulin (HCC) Expected: 08/28/2024, Expires: 11/27/2024 [facility] Comment on above: Expected: 08/28/2024, Expires: Start: 08-28-2024 End: 11-27-2024 Hemoglobin A1c in Blood HEMOGLOBIN A1C Lab Routine Controlled type 2 diabetes mellitus without complication, without long-term current use of insulin (HCC) Expected: 08/28/2024, Expires: 11/27/2024 [facility] Comment on above: Expected: 08/28/2024, Expires: Start: 08-28-2024 End: 11-27-2024 Lipid 1996 panel - Serum or Plasma LIPID PANEL BASIC Lab Routine Controlled type 2 diabetes mellitus without complication, without long-term current use of insulin (HCC) Expected: 08/28/2024, Expires: 11/27/2024 [facility] Comment on above: Expected: 08/28/2024, Expires: Start: 08-28-2024 End: 11-27-2024 Microalbumin/Creatinine [Mass Ratio] in Urine ALBUMIN/CREATININE RATIO, URINE Lab Routine Controlled type 2 diabetes mellitus without complication, without long-term current use of insulin (HCC) Expected: 08/28/2024, Expires: 11/27/2024 [facility] Comment on above: Expected: 08/28/2024, Expires: Start: 08-27-2024 End: 08-27-2024 ambulatory [facility] Start: 08-26-2024 Annual PCP Team Chronic Disease Visit Annual PCP Team Chronic Disease Visit [facility] Start: 08-26-2024 BP Controlled (<130/80) BP Controlled (<130/80) [facility] Start: 08-26-2024 Covid-19 Vaccine () Covid-19 Vaccine () [facility] Comment on above: Postponed from 05/10/2023 (Declined at t his time) Start: 08-25-2024 DIABETES SCREEN DIABETES SCREEN [facility] Start: 08-10-2024 End: 08-10-2024 Admission to same day surgery center [facility] [place] Comment on above: Ascending Aorta Replacement [29886 (CPT )] Ascending Aorta Repl acement; Left Atrial Appendage Closure [12494 (CPT )] Start: 08-10-2024 End: 08-10-2024 As-aort grf w/card byp f/aortic ds oth/thn dsj Repair Ascending Aorta Aneurysm of ascending aorta without rupture ([facility]) 08/10/2024 7:30 AM EST [facility] Start: 08-10-2024 Subsequent hospital visit by physician 08/10/2024 6:00 AM EST Hospital Encounter [facility] [place] [address] [place] [address] [place] [address] [address] Department [place] [address] [facility] [place] Start: 07-23-2024 Mammography Mammogram Screening [facility] Start: 07-23-2024 Screening for malignant neoplasm of breast [facility] Start: 07-23-2024 End: 07-23-2024 Patient encounter procedure 07/23/2024 9:10 AM EST Appointment Mammogram [address] [place] [address] Mammogram Start: 07-10-2024 End: 03-18-2025 DBT Breast - bilateral screening DAVID SCREENING W OSVALDO Radiology Routine Screening mammogram for breast cancer Expected: 07/10/2024, Expires: 03/18/2025 [facility] Work Phone: Comment on above: Expected: 07/10/2024, Expires: Start: 06-09-2024 End: 06-09-2024 Admission to same day surgery center 06/09/2024 11:00 AM EDT - 06/09/2024 12:00 PM EDT Surgery [facility] [address] [place] [phone] Flaquita Hendrix MD [address] [place] [id number] Left Heart Cath with Coronary Angiography and LV [81593 (CPT )] [facility] Comment on above: Left Heart Cath with Coronary Angiograph y and LV [02892 (CPT )] Start: 06-09-2024 Subsequent hospital visit by physician 06/09/2024 11:00 AM EDT Hospital Encounter [facility] [address] [place] [phone] Flaquita Hendrix MD [address] [address] Ascending aorta dilation (CMS-HCC); Nonrheumatic mitral valve regurgitation; Nonrheumatic tricuspid valve regurgitation; Nonrheumatic aortic valve insufficiency [facility] Comment on above: Ascending aorta dilation (CMS-HCC); Nonrheumatic mitral valve regurgitation; Nonrheumatic tricuspid valve regurgitation; Nonrheumatic aortic valve insufficiency Start: 05-29-2024 End: 05-29-2024 Patient encounter procedure [facility] [place] Comment on above: 3 month follow-up 3 month follow-up, n eed to schedule Annual Medicare Wellness Start: 05-27-2024 End: 05-27-2025 Basic metabolic 2000 panel - Serum or Plasma Basic Metabolic Panel Lab Routine Ascending aorta dilation (CMS-HCC) Nonrheumatic mitral valve regurgitation Nonrheumatic tricuspid valve regurgitation Nonrheumatic aortic valve insufficiency Expected: 05/27/2024 (Approximate), Expires: 05/27/2025 [facility] Work Phone: Comment on above: Expected: 05/27/2024 (Approximate), Expi res: 05/27/2025 Start: 05-27-2024 End: 05-27-2025 CBC panel - Blood by Automated count CBC Lab Routine Ascending aorta dilation (CMS-HCC) Nonrheumatic mitral valve regurgitation Nonrheumatic tricuspid valve regurgitation Nonrheumatic aortic valve insufficiency Expected: 05/27/2024 (Approximate), Expires: 05/27/2025 [facility] Work Phone: Comment on above: Expected: 05/27/2024 (Approximate), Expi res: 05/27/2025 Start: 05-27-2024 End: 05-27-2024 Patient encounter procedure 05/27/2024 2:00 PM EDT Office Visit [facility] [address] [place] [address] [place] [address] [address] [facility] Department [place] [address] [facility] Start: 05-27-2024 End: 05-27-2025 PT and aPTT panel - Platelet poor plasma by Coagulation assay Coagulation Screen Lab Routine Ascending aorta dilation (CMS-HCC) Nonrheumatic mitral valve regurgitation Nonrheumatic tricuspid valve regurgitation Nonrheumatic aortic valve insufficiency Shortness of breath Expected: 05/27/2024 (Approximate), Expires: 05/27/2025 [facility] Work Phone: Comment on above: Expected: 05/27/2024 (Approximate), Expi res: 05/27/2025 Start: 05-27-2024 End: 05-27-2026 US Heart Transthoracic Transthoracic Echo (TTE) Complete Echocardiography Routine Ascending aorta dilation (CMS-HCC) Nonrheumatic mitral valve regurgitation Nonrheumatic tricuspid valve regurgitation Nonrheumatic aortic valve insufficiency Expected: 05/27/2024 (Approximate), Expires: 05/27/2026 [facility] Service Area Work Phone: Comment on above: Expected: 05/27/2024 (Approximate), Expi res: 05/27/2026 Start: 05-10-2024 COVID-19 Vaccine () COVID-19 Vaccine () [facility] Start: 05-10-2024 Covid-19 Vaccine () Covid-19 Vaccine () [facility] Start: 05-10-2024 COVID-19 Vaccine () COVID-19 Vaccine () [facility] Start: 05-10-2024 Influenza vaccination Influenza Vaccine (#1) [facility] Start: 05-10-2024 [facility] Start: 03-19-2024 End: 03-19-2024 Patient encounter procedure 03/19/2024 9:15 AM EDT Appointment Radiology [address] [place], [place] [id number] Chronic renal impairment, stage 3a (HCC) [N18.31] Radiology Comment on above: Chronic renal impairment, stage 3a (HCC) [N18.31] Start: 03-11-2024 End: 03-11-2024 Nursing evaluation of patient and report 03/11/2024 9:00 AM EDT Nurse Visit Endocrinology [address] [place], [place] [id number] Abdifatah Avelar, RN [address] [address] Controlled type 2 diabetes mellitus without complication, without long-term curr... Endocrinology Comment on above: Controlled type 2 diabetes mellitus with out complication, without long-term curr... Start: 02-25-2024 End: 02-25-2024 Patient encounter procedure 02/25/2024 9:20 AM EDT Office Visit Internal Medicine [place] [address] [place] [address] Jae Belcher MD [address] [place] [address] 6 month follow-up Internal Medicine [place] Comment on above: 6 month follow-up Start: 02-24-2024 End: 02-24-2024 ambulatory 02/24/2024 7:15 AM EDT Results Only [place] [facility] [address] [place] [address] [facility] Start: 02-23-2024 End: 05-24-2024 Basic metabolic 2000 panel - Serum or Plasma BASIC METABOLIC PNL Lab Routine Impaired fasting glucose Expected: 02/23/2024, Expires: 05/24/2024 [facility] Work Phone: Comment on above: Expected: 02/23/2024, Expires: 4 Start: 02-23-2024 End: 05-24-2024 Hemoglobin A1c in Blood HGB A1C Lab Routine Impaired fasting glucose Expected: 02/23/2024, Expires: 05/24/2024 [facility] Work Phone: Comment on above: Expected: 02/23/2024, Expires: Start: 11-15-2023 End: 02-14-2024 Basic metabolic 2000 panel - Serum or Plasma BASIC METABOLIC PNL Lab Routine Chronic renal impairment, stage 3a (HCC) Expected: 11/15/2023, Expires: 02/14/2024 [facility] Work Phone: Comment on above: Expected: 11/15/2023, Expires: Start: 10-17-2023 End: 01-16-2024 Urinalysis complete panel - Urine URINALYSIS, WITH MICROSCOPIC Lab Routine Chronic renal impairment, stage 3a (HCC) Expected: 10/17/2023, Expires: 01/16/2024 [facility] Work Phone: Comment on above: Expected: 10/17/2023, Expires: Start: 09-09-2023 Advance Directive Discussion Advance Directive Discussion [facility] Start: 09-09-2023 Behavioral Health Screening Behavioral Health Screening [facility] Start: 09-09-2023 Depression Assessment Depression Assessment [facility] Start: 08-22-2023 ANNUAL PCP TEAM CHRONIC DISEASE VISIT ANNUAL PCP TEAM CHRONIC DISEASE VISIT [facility] Start: 08-22-2023 BP CONTROLLED (<130/80) BP CONTROLLED (<130/80) [facility] Start: 08-22-2023 Urine microalbumin profile [facility] Comment on above: Postponed from 06/21/2019 (Declined at t his time) Start: 07-24-2023 BP CONTROLLED (<130/80) BP CONTROLLED (<130/80) [facility] Start: 07-23-2023 Mammography [facility] Start: 05-10-2023 Covid-19 Vaccine () Covid-19 Vaccine () [facility] Start: 05-10-2023 Influenza vaccination [facility] Start: 12-27-2022 COVID-19 VACCINE (5 - Pfizer series) COVID-19 VACCINE (5 - Pfizer series) [facility] Start: 09-09-2022 ADVANCE DIRECTIVE DISCUSSION ADVANCE DIRECTIVE DISCUSSION [facility] Start: 09-09-2022 DEPRESSION ASSESSMENT DEPRESSION ASSESSMENT [facility] Start: 08-22-2022 ANNUAL PCP TEAM CHRONIC DISEASE VISIT ANNUAL PCP TEAM CHRONIC DISEASE VISIT [facility] Start: 08-22-2022 End: 10-22-2022 Hemoglobin A1c in Blood HGB A1C Lab Routine Impaired fasting glucose Expected: 08/22/2022, Expires: 10/22/2022 [facility] Work Phone: Comment on above: Expected: 08/22/2022, Expires: Start: 08-22-2022 End: 10-22-2022 Lipid 1996 panel - Serum or Plasma LIPID PANEL BASIC Lab Routine Essential hypertension, benign Expected: 08/22/2022, Expires: 10/22/2022 [facility] Work Phone: Comment on above: Expected: 08/22/2022, Expires: 3 Start: 07-21-2022 Adult depression screening assessment DEPRESSION SCREENING [facility] Start: 07-20-2022 Mammography MAMMOGRAM [facility] Start: 05-10-2022 Influenza vaccination INFLUENZA (#1) [facility] Start: 11-23-2021 COVID-19 VACCINE (4 - Booster for Pfizer series) COVID-19 VACCINE (4 - Booster for Pfizer series) [facility] Start: 09-20-2021 COVID-19 VACCINE (4 - Booster for Pfizer series) COVID-19 VACCINE (4 - Booster for Pfizer series) [facility] Start: 09-09-2021 ADVANCE DIRECTIVE DISCUSSION ADVANCE DIRECTIVE DISCUSSION [facility] Start: 09-09-2021 DEPRESSION ASSESSMENT DEPRESSION ASSESSMENT [facility] Start: 06-21-2019 DTaP/Tdap/Td Vaccines (2 - Td or Tdap) DTaP/Tdap/Td Vaccines (2 - Td or Tdap) [facility] Start: 06-21-2019 Urine microalbumin profile [facility] Start: 06-21-2019 [facility] Start: 2009 RSV High Risk: (Elderly (60+) or Population) (1 - Risk 60-74 years 1-dose series) RSV High Risk: (Elderly (60+) or Population) (1 - Risk 60-74 years 1-dose series) [facility] Start: 2009 RSV patients and/or patients aged 60+ years (1 - 1-dose 60+ series) RSV patients and/or patients aged 60+ years (1 - 1-dose 60+ series) [facility] Start: 2009 RSV Vaccine (1 - 1-dose 60+ series) RSV Vaccine (1 - 1-dose 60+ series) [facility] Start: 2009 [facility] Start: 1994 COLOGUARD (FIT-DNA) COLOGUARD (FIT-DNA) [facility] Start: [address] COLONOGRAPHY [facility] Start: 1994 FECAL OCCULT BLOOD FECAL OCCULT BLOOD [facility] Start: 1994 Screening for malignant neoplasm of colon [facility] Start: 1994 SIGMOIDOSCOPY SIGMOIDOSCOPY [facility] Start: 1968 Urine screening for protein [facility] Start: 12-08-1967 BP CONTROLLED (<130/80) BP CONTROLLED (<130/80) [facility] Start: 12-08-1967 Hepatitis C screening [facility] Start: 12-08-1959 Diabetic foot examination Diabetic Foot Exam [facility] Start: 12-08-1959 Glaucoma screening Dilated Retinal Exam [facility] Start: 12-08-1959 Hepatitis B screening Urine Albumin:Creatinine Ratio [facility] Start: 1949 Annual wellness visit [facility] Start: 1949 Lipid panel [facility] Start: 1949 Medicare Annual Wellness Visit Medicare Annual Wellness Visit (AWV) [facility] Start: 1949 Screening for malignant neoplasm of colon [facility] Start: 1949 Thyroid stimulating hormone measurement [facility] Start: 1949 Yearly Adult Physical Yearly Adult Physical [facility] Airway Clearance Techniques Device/modality: Per RT discretion [facility] Work Phone: Bacteria identified in Urine by Culture URINE CULTURE Microbiology Routine Urinary frequency 05/20/2024 11:59 AM EDT [facility] Work Phone: Basic metabolic 2008 panel with ionized calcium - Serum or Plasma [facility] Cardiac event recording [facility] Cath plmt l hrt & ar ts w/njx & angio img s&i LEFT HEART CATH Ascending aorta dilation (CMS-HCC) Nonrheumatic mitral valve regurgitation Nonrheumatic tricuspid valve regurgitation Nonrheumatic aortic valve insufficiency [facility] Money Order Clerk End: 08-28-2024 CBC panel - Blood by Automated count [facility] Work Phone: CTA Chest vessels WO and W contrast IV [facility] DBT Breast - bilater al screening DAVID SCREENING W OSVALDO Radiology Routine Screening mammogram for breast cancer 07/23/2024 9:39 AM EST [facility] [facility] Work Phone: End: 08-10-2024 Determination of physical activity tolerance [facility] Work Phone: End: 08-14-2024 ECG 12 Lead [facility] Work Phone: Electrocardiogram 12 -lead PRN for arrhythmia [facility] Work Phone: Electrocardiogram 12 -lead PRN for arrhythmia [facility] Work Phone: Electrocardiogram 12 -lead PRN for arrhythmia [facility] Work Phone: End: 08-21-2024 Extra Urine Bai Tube [facility] Work Phone: End: 06-09-2024 Glucose [Mass/volume] in Serum or Plasma POCT Glucose Point of Care Testing - Docked Device Routine Once (Lab) for 1 Occurrences starting 06/09/2024 until 06/09/2024 [facility] Work Phone: Comment on above: Once (Lab) for 1 Occurrences starting until 06/09/2024 Glucose [Mass/volume ] in Serum or Plasma [facility] Work Phone: Glucose [Mass/volume ] in Serum or Plasma [facility] Work Phone: End: 08-10-2024 Incentive spirometry Instruct [facility] Work Phone: End: 08-28-2024 Magnesium [Mass/volume] in Serum or Plasma [facility] Work Phone: End: 07-23-2023 DAVID SCREENING [facility] Work Phone: Comment on above: ONCE for 1 Occurrences starting 07/23/20 23 until 07/23/2023 MG Breast - bilatera l Screening [facility] Patient referral [facility] Work Phone: End: 08-23-2024 Renal function 2000 panel - Serum or Plasma [facility] Work Phone: End: 05-22-2024 Study Interpretation of outside study [facility] Work Phone: Comment on above: Once for 1 Occurrences starting 05/22/20 24 until 05/22/2024 Transfuse Cryoprecipitated AHF (Pooled Units): 2 Pools :30 Minutes [facility] Work Phone: UA DIP B/O UA DIP B/O Lab R outine Burning with urination Ordered: 05/29/2024 [facility] Work Phone: Comment on above: Ordered: 05/29/2024 End: 08-21-2024 Urinalysis complete W Reflex Culture panel - Urine [facility] Work Phone: [facility] End: 06-03-2024 US Heart Transthoracic [facility] Service Area Work Phone: Comment on above: Once for 1 Occurrences starting 06/03/20 until 06/03/2024 End: 03-26-2025 US Kidney - bilateral and Urinary bladder US KIDNEY/BLADDER Radiology Routine Chronic renal impairment, stage 3a (HCC) 1 Occurrences starting 02/25/2024 until 03/26/2025 [facility] Work Phone: Comment on above: 1 Occurrences starting 02/25/2024 until 03/26/2025 US Kidney - bilatera l and Urinary bladder US KIDNEY/BLADDER Radiology Routine Chronic renal impairment, stage 3a (HCC) 03/19/2024 9:39 AM EDT [facility] Work Phone: End: 07-29-2024 XR Chest 2 Views [facility] Service Area Work Phone: Comment on above: Once for 1 Occurrences starting 07/29/20 until 07/29/2024 End: 10-07-2024 XR Chest 2 Views [facility] Service Area Work Phone: Comment on above: Once for 1 Occurrences starting 10/07/19 until 10/07/2024 XR Foot - bilateral AP and Lateral and oblique XR FOOT GENERAL 3V AP/LAT/OBL BILATERAL Radiology Routine Pain 01/02/2024 1:22 PM EDT [facility] Work Phone: [facility] Immunizations Immunization Date Immunization Notes Care Provider [facility] 05-29-2024 influenza, high dose seasonal, preservative-free Jae Belcher MD Work Phone: [facility] 08-26-2023 influenza (HD-IIV4) vaccine, age 65+ yr, high dose, quadrivalent, PF (FLUZONE HIGH-DOSE) Jae Belcher MD Work Phone: [facility] 08-26-2023 influenza virus vacc ine, unspecified formulation Abdifatah Avelar RN Work Phone: [facility] 08-28-2022 COVID-19 booster vaccine, age 12+ yr, bivalent (PFIZER-BIONTECH) Mi Nurse Work Phone: [facility] Work Phone: 07-06-2022 influenza, high-dose , quadrivalent vaccine (FLUZONE HIGH DOSE QUADRIVALENT) Jennifer Luong CONSULTING SOLUTION MANAGER.ENVIRONMENTAL SYSTEMS COORDINATOR Work Phone: [facility] Work Phone: 07-06-2022 influenza virus vacc ine, unspecified formulation Screen Wstr [facility] 07-26-2021 Covid (Pfizer) Dr. Jae Belcher MD Work Phone: [facility] 07-26-2021 zoster vaccine recombinant f Provider [facility] 07-21-2021 influenza, high-dose , quadrivalent vaccine (FLUZONE HIGH DOSE QUADRIVALENT) f Provider [facility] 04-20-2021 zoster vaccine recombinant f Provider [facility] 12-03-2020 COVID-19 vaccine, ag e 12+ yr (PFIZER-BIONTECH - PURPLE TOP) f Provider [facility] 11-12-2020 COVID-19 vaccine, ag e 12+ yr (PFIZER-BIONTECH - PURPLE TOP) [facility] Provider [facility] 07-28-2020 influenza, high-dose , quadrivalent vaccine (FLUZONE HIGH DOSE QUADRIVALENT) [facility] Provider [facility] 07-27-2019 influenza, high dose seasonal, preservative-free f Provider [facility] 07-01-2018 influenza, high dose seasonal, preservative-free f Provider [facility] 08-06-2017 influenza, high dose seasonal, preservative-free [facility] Provider [facility] 07-30-2016 influenza, high dose seasonal, preservative-free [facility] Provider [facility] 07-30-2016 pneumococcal polysaccharide vaccine, 23 valent [facility] Provider [facility] 07-28-2015 influenza, injectabl e, quadrivalent, contains preservative [facility] Provider [facility] 07-28-2015 influenza, injectabl e, quadrivalent, preservative free Dr. Jae Belcher MD Work Phone: [facility] 07-28-2015 pneumococcal conjuga te vaccine, 13 valent [facility] Provider [facility] 07-27-2014 influenza, injectabl e, quadrivalent, preservative free Dr. Jae Belcher MD Work Phone: [facility] 07-27-2014 influenza, seasonal, injectable [facility] Provider [facility] 07-18-2013 influenza virus vacc ine, unspecified formulation [facility] Provider [facility] 07-13-2011 influenza virus vacc ine, unspecified formulation [facility] Provider [facility] Work Phone: 02-23-2011 zoster vaccine, live [facility] Provider [facility] 06-21-2009 tetanus toxoid, redu elvie diphtheria toxoid, and acellular pertussis vaccine, adsorbed [facility] Provider [facility] Payers Date Payer Category Payer Self-pay [id number] 2024 Medicare [id number] 2024 Self-pay [id number] 2023 Medicare [id number] 2017 Medicare (Managed Care) 1.2. [id number] 315 2017 Unknown [id number]. 1.13.159.2.7.3.950021.315 2017 Medicare [id number] 2012 Unknown [id number] 1949 Unknown [id number] 2.16.8 40.1.104376.3.579.2.1242 1949 Unknown [id number] 2.16.8 40.1.265615.3.579.2.124 1949 Unknown [id number] 2.16.8 40.1.652424.3.579.2.1242 1949 Unknown [id number] 2.16.8 40.1.506370.3.579.2.1241 1949 Unknown [id number] 2.16.8 40.1.525735.3.579.2.1242 1949 Unknown [id number] 2.16.8 40.1.233881.3.579.2.124 1949 Unknown [id number] 2.16. 840.1.036051.3.579.2.1245 1949 Unknown [id number] 2.16. 840.1.915925.3.579.2.124 1949 Unknown [id number] 2.16. 840.1.484715.3.579.2.1245 1949 Unknown [id number] 2.16. 840.1.505422.3.579.2.124 1949 Unknown [id number] 2.16. 840.1.432915.3.579.2.124 1949 Unknown [id number] 2.16.8 40.1.373894.3.579.2.124 1949 Unknown [id number] 2.16.8 40.1.424254.3.579.2.1245 1949 Unknown [id number] 2.16.8 40.1.945104.3.579.2.124 1949 Unknown [id number] 2.16.8 40.1.934758.3.579.2.1245 1949 Unknown [id number] 2.16.8 40.1.591637.3.579.2.1245 1949 Unknown [id number] 2.16.8 40.1.918580.3.579.2.1245 1949 Unknown [id number] 2.16.8 40.1.673629.3.579.2.1245 Unknown [id number] 2.16.8 40.1.601551.3.579.2.462 Unknown [id number] 2.16.8 40.1.173592.3.579.2.462 Unknown [id number] 2.16.8 40.1.921975.3.579.2.462 Unknown [id number] 2.16.8 40.1.991301.3.579.2.462 Unknown [id number] 2.16.8 40.1.691869.3.579.2.462 Unknown [id number] 2.16.8 40.1.530078.3.579.2.462 Unknown [id number] 2.16.8 40.1.799542.3.579.2.462 Unknown [id number] 2.16.8 40.1.732551.3.579.2.462 Unknown [id number] 2.16.8 40.1.937174.3.579.2.462 Unknown [id number] 2.16.8 40.1.487857.3.579.2.462 Unknown [id number] 2.16.8 40.1.526405.3.579.2.462 Unknown [id number] 2.16.8 40.1.416839.3.579.2.462 Unknown [id number] 2.16.8 40.1.789653.3.579.2.462 Unknown [id number] 2.16.8 40.1.119018.3.579.2.462 Unknown [id number] 2.16.8 40.1.901969.3.579.2.462 Unknown [id number] 2.16.8 40.1.832748.3.579.2.462 Unknown [id number] 2.16.8 40.1.911329.3.579.2.462 Unknown [id number] 2.16.8 40.1.403344.3.579.2.462 Unknown [id number] 2.16.8 40.1.686957.3.579.2.462 Unknown [id number] 2.16.8 40.1.598512.3.579.2.462 Unknown [id number] 2.16.8 40.1.792816.3.579.2.462 Unknown [id number] 2.16.8 40.1.748002.3.579.2.462 Unknown [id number] 2.16.8 40.1.286643.3.579.2.462 Unknown [id number] 2.16.8 40.1.202217.3.579.2.462 Unknown [id number] 2.16.8 40.1.672948.3.579.2.462 Unknown [id number] 2.16.8 40.1.708315.3.579.2.462 Unknown [id number] 2.16.8 40.1.129201.3.579.2.462 Unknown [id number] 2.16.8 40.1.586919.3.579.2.462 Unknown [id number] 2.16.8 40.1.268328.3.579.2.462 Unknown [id number] 2.16.8 40.1.432977.3.579.2.462 Unknown [id number] 2.16.8 40.1.678026.3.579.2.462 Unknown [id number] 2.16.8 40.1.370848.3.579.2.462 Unknown [id number] 2.16.8 40.1.351509.3.579.2.462 Unknown [id number] 2.16.8 40.1.455446.3.579.2.462 Unknown [id number] 2.16.8 40.1.532676.3.579.2.462 Unknown [id number] 2.16.8 40.1.375693.3.579.2.462 Unknown [id number] 2.16.8 40.1.752859.3.579.2.462 Social History Date Type Detail Facility Start: 05-04-2011 End: 01-18-2025 Tobacco smoking status NHIS Never smoked tobacco [facility] Start: 05-04-2011 End: 08-22-2022 Tobacco use and exposure Smokeless tobacco non-user [facility] Start: 08-22-2021 End: 10-13-2024 Alcohol intake Current drinker of alcohol (finding) [facility] Start: 08-29-2018 History SDOH Alcohol Comment 1-2/week [facility] Start: 1950 Sex Assigned At Not on file [facility] Start: 07-14-2022 End: 10-07-2024 Exposure to SARS-CoV-2 (event) Not sure [facility] Start: 07-05-2022 End: 09-03-2023 Tobacco smoking status WVIS Unknown if ever smoked [facility] Start: 02-05-2019 None [facility] Start: 02-05-2019 Spouse/ Significant Other [facility] Start: 02-08-2019 Non-smoker [facility] Start: 1950 Sex Assigned At Female [facility] Start: 08-22-2022 End: 05-29-2024 History of Social function [facility] Work Phone: Start: 08-22-2022 End: 05-29-2024 Tobacco use panel [facility] Work Phone: Adult Depression Screening Assessment 0 [facility] Work Phone: Has the [employer], or [employer] threatened to shut off services in your home in past 12Mo No [facility] Do you belong to any clubs or organizations such as muslim groups, unions, fraternal or athletic groups, or school groups? Yes [facility] Are you now , , , , never or living with a partner? [facility] How often to you hav e a drink containing alcohol? 2-4 times a month [facility] How many standard dr inks containing alcohol do you have on a typical day? 1 or 2 [facility] How often do you hav e 6 or more drinks on 1 occasion? Never [facility] Do you feel stress - tense, restless, nervous, or anxious, or unable to sleep at night because your mind is troubled all the time - these days [OSQ] Only a little [facility] (I/We) worried iveth er (my/our) food would run out before (I/we) got money to buy more. Never true [facility] Start: 05-27-2024 End: 06-09-2024 Alcoholic beverage intake Not Asked [facility] Work Phone: Start: 07-22-2024 Alcohol Comment drinks wine a few times a month [facility] Work Phone: Start: 11-16-2024 End: 12-23-2024 Sex Female (finding) [facility] Sexual Orientation Heterosexual (finding) [facility] Medical Equipment Procedure Code Equipment Code Equipment Origin al Text Equipment Identifier Dates [facility] Start: 08-10-2024 [id number] , imp FDA Start: 08-10-2024 [id number]_[facility] FDA Start: 08-10-2024112_[facility] Start: 08-10-2024 Functional Status Date Assessment Result Facility 11-17-2018 Are you deaf, or do you have serious difficulty hearing No 11/17/2018 8:24 PM Pantera Mcneill III, MD [facility] 11-17-2018 Are you blind, or do you have serious difficulty seeing, even when wearing glasses No 11/17/2018 8:24 PM Pantera Mcneill III, MD [facility] 11-17-2018 Do you have serious difficulty walking or climbing stairs No 11/17/2018 8:24 PM EDT Pantera Thomas III, MD No [facility] 11-17-2018 Do you have difficul ty dressing or bathing No 11/17/2018 8:24 PM EDT Pantera Thomas III, MD [facility] 11-17-2018 Because of a physica l, mental, or emotional condition, do you have difficulty doing errands alone such as visiting a physician's office or shopping No 11/17/2018 8:24 PM EDT Pantera Thomas III, MD No [facility] Mental Status Date Assessment Result Facility 11-16-2024 Cognitive function Level Of Cons ciousness Awake;Alert;Appropriate;Fol lows Commands [facility] Work Phone: 11-12-2024 Cognitive function Level Of Cons ciousness Awake;Alert;Appropriate;Fol lows Commands [facility] Work Phone: 09-23-2024 Cognitive function Level Of Cons ciousness Awake;Alert;Appropriate [facility] Work Phone: 09-22-2024 Cognitive function Level Of Cons ciousness Awake;Alert;Appropriate;Fol lows Commands [facility] Work Phone: 09-08-2024 Cognitive function Level Of Cons ciousness Awake;Alert;Appropriate [facility] Work Phone: 09-07-2024 Cognitive function Level Of Cons ciousness Awake;Alert;Appropriate [facility] Work Phone: 11-17-2018 Because of a physica l, mental, or emotional condition, do you have serious difficulty concentrating, remembering, or making decisions No 11/17/2018 8:24 PM EDT Pantera Thomas III, MD No [facility] Clinical Notes 07-18-2013 to 04-21-2025 Note Date & Type Note Facility 04-21-2025 Procedure note [facility] 01-18-2025 Evaluation note Diagnosis Onset Date Resolution Bilateral pleural effusion acute January 18, 2025 [...] both feet noneactive January 18, 2025 1:45pm [facility] Work Phone: 1(756) 341-841804-15-2025 Radiology Diagnostic study note [facility] Imaging Services [address] [place], [place] [address] Chest PA and Lateral MR#: [id number] Acct: [id number] Name: KARLA CAI Rep #: [id number] : 1950 F 74 From: Esvin Campbell MD PCP: Dr. Jae Belcher MD Status: R EG CLI Study:Chest PA and Lateral Date of Exam: 12/21/24 Exam# [id number] Ordering Dr: Mendoza Paige PA PROCEDURE: CHEST PA AND LATERAL 12/21/2024 REASON FOR EXAM: RECURRENT PLEURAL EFFUSIONS TECHNIQUE: Frontal and lateral views of the chest. COMPARISON: 11/16/2024 and 11/12/2024 FINDINGS: Fairly small right pleural effusion. Very small left pleural effusion versus pleural thickening. Platelike area of left base atelectasis or scar. The lungs otherwise appear clear. Pulmonary vascularity appears within limits.Status post median sternotomy with left atrial appendage [...] The lungs otherwise appear clear. Reading Location: [id number] CC: Dr. Jae Belcher MD; WILY Hernandez ~ Help Desk Specialist: Signed [facility]03-10-2025 Radiology Diagnostic study note [facility] Imaging Services [address] [place] [address] Thoracentesis W US MR#: [id number] Acct: [id number] Name: KARLA CAI Rep #: [id number] : 1950 F 73 From: Farhan Willis MD PCP: Dr. Jae Belcher MD Status: R EG CLI Study:Thoracentesis W US Date of Exam: 0 11/16/24 Exam# [id number] Ordering Dr: Mendoza Paige PROCEDURE: THORACENTESIS W [...] pleural space was performed with a 5 Comoran catheter. 650 mL of blood- tinged fluid was aspirated. The patient tolerated the procedure well. COMPARISON: None. FINDINGS: Right pleural effusion. US/Thoracentesis W US IMPRESSION: Successful right thoracentesis without immediate complication. The patient tolerated the procedure well. Reading Location: [place] [address] CC: Dr. Jae Belcher MD; WILY Hernandez ~ Help Desk Specialist: Signed [facility]03-10-2025 Radiology Diagnostic study note [facility] Imaging Services [address] [place], [place] [address] Chest Insp/Exp 2 View MR#: [id number] Acct: [id number] Name: KARLA CAI Rep #: [id number] : 1950 F 73 From: Farhan Willis MD PCP: Dr. Jae Belcher MD Status: R EG CLI Study:Chest Insp/Exp 2 View Date of Exam: 11/16/24 Exam# [id number] Ordering Dr: Tan Gonzalez i, MD PROCEDURE: [...] pneumothorax. Residual left pleural-parenchymal changes. Reading Location: [place] [address] CC: Dr. Tan Willis MD; Dr. Jae Belcher MD ~ Help Desk Specialist: Signed [facility]03-06-2025 Procedure note [facility] Medical Records Department [address] [place] [id number] Operative Report 11/12/24 1254 MR#: [id number] Acct: [id number] Name: KARLA CAI Rep #:[id number] : 1950 73 From: Lisbeth Decker PCP: Dr. Jae Belcher MD Status:R EG CLI Location: US Problems Associated Problem List Diagnoses (1) Bilateral pleural effusion: Multi Select Codes Radiology Radiology US Procedures: 66799 Thoracentesis Operative Report (Standard) Operative Information Date of Procedure: 11/12/24 Pre-Operative Diagnosis: Bilateral pleural effusion Post-Operative Diagnosis: Bilateral pleural effusion Surgery/Procedure Performed: Ultrasound-guided thoracentesis enterprise sales person: No Type of Anesthesia: Local Procedure Start [...] pleural spaces was carried out. Both the leftand the right lower pleural spaces had an adequate amount of fluid to drain. The right pocket appeared to be slightly larger than the left; therefore, I proceeded with drainage of the right side today and will defer the left side for24 hours. Thepatient does not appear symptomatic at this time and this is the safest approach. An adequate pocket was identified in the right lower pleural space. The overlying skin was prepped with chlorhexidine and draped in sterile fashion. 2 % lidocaine was administered subcutaneously for local anesthesia. Under ultrasound guidance, a 5-Comoran thoracentesis needle/catheter system was advanced into the [...] CHRISTIAN Garvey; Dr. Jae Belcher MD; WILY Hernandez~ Signed [facility]03-06-2025 Radiology Diagnostic study note [facility] Imaging Services [address] [place] [address] Chest Insp/Exp 2 View MR#: [id number] Acct: [id number] Name: KARLA CAI Rep #: [id number] : 1950 F 73 From: Laurence Diana MD PCP: Dr. Jae Belcher MD Status: R EMERITA CLI Study:Chest Insp/Exp 2 View Date of Exam: 11/12/24 Exam# [id number] Ordering Dr: Lisbeth Garvey MEAT SERVICE TEAM MEMBERLavinia PROCEDURE: CHEST INSP/EXP 2 VIEW REASON FOR [...] pleural effusion. Left pleural effusion. Reading Location: [place] [address] CC: MEAT SERVICE TEAM MEMBER-C Lisbeth Garvey; Dr. Jae Belcher MD ~ Help Desk Specialist: Signed [facility]03-03-2025 Radiology Diagnostic study note [facility] Imaging Services [address] [place] [address] Chest PA and Lateral MR#: [id number] Acct: [id number] Name: KARLA CAI Rep #: [id number] : 1950 F 73 From: Kathryn Queen MD PCP: Dr. Jae Belcher MD Status: R EG CLI Study:Chest PA and Lateral Date of Exam: 11/09/24 Exam# [id number] Ordering Dr: Mendoza Paige PA PA EXAM: XR Chest, 2 Views CLINICAL INDICATION: TECHNIQUE: Frontal and lateral views of the chest. COMPARISON: No relevant prior studies available. FINDINGS: LUNGS AND PLEURAL SPACES: Right middle lobe and lingula atelectasis or pneumonia. Bilateral pleuraleffusions. No pneumothorax. HEART: Unremarkable. No cardiomegaly. MEDIASTINUM: Unremarkable. Normal mediastinal contour. BONES/JOINTS: Unremarkable. No acute fracture. RAD/Chest PA and Lateral IMPRESSION: 1. Right middle lobe and lingula atelectasis or pneumonia. 2. Bilateral pleural effusions. Reading Location: [facility] CC: Dr. Jae Belcher MD; WILY Hernandez ~ Help Desk Specialist: Signed [facility]02-20-2025 Evaluation note* Diagnosis Onset Date Resolution Status Admit Date Bilateral pleural effusion acute October 29, 2024 10:24am Mitral valve insufficiency acute October 29, 2024 10:24am Postoperative atrial fibrillation acute October 29 10:24am Essential hypertension chronic Fe bruary 2024 10:24am Thoracic aortic aneurysm without rupture [...] Postoperative atrial fibrillation acute January 18, 2025 1 :45pm Prediabetes acute January 18 1:45pm Essential hypertension chronic Ma y 2024 1:45pm Screening for depression noneactive January 18, 2025 1:45pm History of malignant neoplas m of breast noneactive January 18, 2025 1 :45pm Immunization due noneactive January 1:45pm Establishing care with new doctor, encounter for noneactive January 18, 2025 1:45pm Pain in both feet noneactive January 1:45pm Numbness and tingling of bot h feet noneactive January 18, 2025 1 :45pm [facility] Work Phone: 1(410) 231-925902-04-2025 Instructions* Patient Instructions* Savanna Kothari, CONSULTING SOLUTION MANAGER.ENVIRONMENTAL SYSTEMS COORDINATOR - 10/13/2024 12:38 PM EST Screening schedule [...] review all the medicines you take, even gkcr-gjb-buemkqd medicines. As you get older, the way [...] have certain medical conditions. [facility] NoteHNO ID: [id number] Author: SAVANNA KOTHARI APRN.TYRA Service: ? Author [...] General (Internal Medicine) Savanna Kothari APRN.TYRA as Alarm Service Technician (Internal Medicine) Dr. Fleming-podiatry Dr. Moon-general surgeon Outside specialists seen: [facility], [facility]-Dr. Goldberg, Medical/Family history review Reviewed and updated [...] testing/treatment [facility]: [facility] of Present illness Narrative* Savanna Kothari APRN.CNP - 10/13/2024 12:34 PM EST Images from [...] General (Internal Medicine) Savanna Kothari APRN.TYRA as Alarm Service Technician (Internal Medicine) Dr. Fleming-podiatry Dr. Moon-general surgeon Outside specialists seen: [facility], [facility]-Dr. Goldberg, Medical/Family history review Reviewed and updated [...] Level: 3 - Low [facility] History of Present illness Narrative* Joaquim Galloway [...] and LV; Surgeon: Flaquita Hendrix MD; Location: [facility] Cardiac Money Order Clerk; Service: Cardiovascular; Laterality: N/A; preop asc aorta replacement. [facility] Jun AT 11:00 AM PT WILL ARRIVE [...] Physical Activity: Sufficiently Active (02/18/2024) Received from [facility] Exercise Vital Sign Days of Exercise per Week: 4 days Minutes of Exercise per Session: 60 min Stress: Patient Unable To Answer (08/10/2024) [employer] - Occupational Stress Questionnaire Feeling of Stress : Patient unable to answer Social Connections: Patient Unable To Answer (08/10/2024) Social Connection and Isolation Panel [NHANES] Frequency of Communication with Friends and Family: Patient unable to answer Frequency of Social Gatherings with Friends and Family: Patient unable to answer Attends Restorationism Services: Patient unable to answer Active Member [...] QT Interval 334 QTC Calculation(Bazett) 449 R Seward 113 T Seward -38 QRS Count 18 Q Onset 213 [...] Transthoracic Echo (TTE) Limited Result Date: 08/12/2024 Formerly Named [facility] [place] [address] and TRANSTHORACIC ECHOCARDIOGRAM REPORT Patient Name: KARLA CAI Reading Physician: [id number] Kevin Kenyon MD Study Date: 08/12/2024 Ordering Provider: [id number] EH GONZALEZELSEN MRN/PID: [id number] Fellow: Nurse: Date of /Age: 2 1950 Networks Software Consultant: Erik smith RDDVEON Gender assigned at F Additional Staff: Abdifatah Flores : Height: 175.00 cm Admit Date: 08/10/2024 Weight: 83.00 kg Admission Status: Inpatient - STAT BSA / BMI: 1.99 m2 / 27.10 kg/m2 Blood Pressure: 101/61 mmHg Department Location: [facility] Study Type: TRANSTHORACIC ECHO (TTE) LIMITED Diagnosis/ICD: Postprocedural hypotension- I95.81 Indication: Hypotension S/P Ascending Aorta Replacement CPT Code: Echo Limited-33304; Doppler Limited-90286; Color Doppler-25289 Patient History: Pertinent History: Aneurysm of ascending [...] FUNCTION BY 2D PLANIMETRY (MOD): Normal Ranges: EF-B3SFlzh: 58 % (>=55%) EF-A2C View: 44 % EF- Biplane: 49 % LV EF Reported: 49 % RIGHT VENTRICLE: TAPSE: 20.9 mm [id number] Kevin Kenyon MD Electronically signed on 08/12/2024 at 6:18:22 PM Final Transthoracic Echo (TTE) Complete Result Date: 06/05/2024 [facility], [address] [place] [address], [place] [address] and TRANSTHORACIC ECHOCARDIOGRAM REPORT Patient Name: KARLA CAI Reading Physician: [id number] Rob Jones MD Study Date: 06/03/2024 Ordering Provider: [id number] JOAQUIM GALLOWAY MRN/PID: [id number] Fellow: Nurse: Date of /Age: 3 1950 / 73 years Networks Software Consultant: Joycelyn JIMENEZ Gender: F Additional Staff: Height: 175.26 cm Admit Date: Weight: 78.02 kg Admission Status: Outpatient BSA / BMI: 1.94 m2 / 25.40 kg/m2 Blood Pressure: 120/63 mmHgDepartment Location: [facility] Study Type: TRANSTHORACIC ECHO (TTE) COMPLETE Diagnosis/ICD: 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; Nonrheumatic aortic (valve) insufficiency- I35.1; Nonrheumatic mitral (valve) insufficiency-I34.0 Indication: Asc AO Dilatation CPT Code: Echo Complete w Full Doppler-01506 Patient History: Pertinent History: HTN, ASC AO [...] LA Area A2C: 14.0 cm2 LA Major [place]ard A4C: 5.4 cm LA Major [place]ard A2C: 5.1 cm LA Volume Index: 19.3 [...] cm AORTA: Asc Ao Diam 4.49 cm [id number] Rob Jones MD Electronically signed on 06/05/2024 [...] Galloway MD Cardiac Surgeon [facility] Work Phone: 1(716) 291-598601-06-2025 Telephone encounter Note* Telephone Encounter - Faiza [...] Please advise. Thank you. Faiza Morgan LPN. [facility]01-06-2025 Miscellaneous Notes* Telephone Encounter - Faiza Morgan [...] you. Faiza Morgan LPN. documented in this [facility]Prem[facility]12-26-2024 Evaluation note* Diagnosis Onset Date Resolution Status Admit Date Mitral valve insufficiency acute September 03, 2024 12:47pm Pleural effusion acute September 03, 2024 12:47pm Postoperative atrial fibrillation acute September 03 024 12:47pm Essential hypertension chronic [facility]2023 12:47pm Thoracic aortic aneurysm without rupture chronic September 03 024 12:47pm Bilateral pleural effusion acute September 07, 2024 7:46am Bilateral pleural effusion acute September 08, 2024 11:04am Bilateral pleural effusion acute September 16, 2024 10:19am Mitral valve insufficiency acute September 16, 2024 10:19am Postoperative atrial fibrillation acute September 16 10:19am Essential hypertension chronic [facility] 2024 10:19am Thoracic aortic aneurysm without rupture [...] pleural effusion acute November 12, 2024 11:53am [facility] Work Phone: 1(617) 584-157412-26-2024 Evaluation note* Diagnosis Onset Date Resolution Status Admit Date Mitral valve insufficiency acute September 03, 2024 12:47pm Pleural effusion acute September 03, 2024 12:47pm Postoperative atrial fibrillation acute September 03, 024 12:47pm Essential hypertension chronic [facility] 2023 12:47pm Thoracic aortic aneurysm without rupture chronic September 03, 12:47pm Bilateral pleural effusion acute September 07, 2024 7:46am Bilateral pleural effusion acute September 08, 2024 11:04am Bilateral pleural effusion acute September 16, 2024 10:19am Mitral valve insufficiency acute September 16, 2024 10:19am Postoperative atrial fibrillation acute September 16 10:19am Essential hypertension chronic [facility] 2024 10:19am Thoracic aortic aneurysm without rupture chronic September 16 10:19am Bilateral pleural effusion acute September 22, 2024 8:00am Bilateral pleural effusion acute September 23, 2024 11:40am Bilateral pleural effusion acute October 29, 2024 10:24am Mitral valve insufficiency acute October 29, 2024 10:24am Postoperative atrial fibrillation acute October 29 10:24am Essential hypertension chronic [place] 2024 10:24am Thoracic aortic aneurysm without rupture chronic October 29 10:24am Bilateral pleural effusion acute November 12, 2024 11:53am Bilateral pleural effusion acute December 22, 2024 9:23am Mitral valve insufficiency acute December 22, 2024 9:23am Postoperative atrial fibrillation acute December 22, 2024 9:23am Essential hypertension chronic Ap 2024 9:23am Thoracic aortic aneurysm without rupture chronic December 22, 2024 9:23am [facility] Work Phone: 1(356) 889-664312-20-2024 Instructions* Patient Instructions* Savanna Kothari APRN.TYRA - 08/28/2024 1:52 PM EST Elevate your [...] stockings you were given today at any [employer] company. Avoid sitting or standing for long periods of time If palpitations with breathing difficulty becomes more persistent, intense or does not resolve you should go to the ER or call 911 documented in this encounterPremier Health12-20-2024 NoteHNO ID: [id number] Author: SAVANNA KOTHARI APRN.TYRA Service: ? Author Type: Nurse Practitioner Type: Progress Notes Filed: 08/28/2024 14:06 Note Text: CC: Patient presents with: Hospital F/U: [facility] Dr. Galloway. Has been having some dizziness [...] She is scheduled for follow-up with the electronic science teacher on 09/03 and the surgeon on 10/07. 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 Per [facility] VITAMIN A ORAL Take 400 mg by mouth once daily. olopatadine hcl(PATANOL 0.1 % EYE DROPS) 1 to 2 drops to each eye twice daily as needed FAMILY HISTORY Problem Relation Age of Onset Cancer Mother small intestine Hypertension Mother Ischemic Heart Disease Father Prostate Cance (more content not included)...[facility] 08-28-2024 History of Present illness Narrative* Savanna Kothari, CONSULTING SOLUTION MANAGER.ENVIRONMENTAL SYSTEMS COORDINATOR - 08/28/2024 1:01 PM EST CC: Patient presents with: Hospital F/U: [facility] in [place] Dr. Galloway. Has been having some dizziness [...] She is scheduled for follow-up with the electronic science teacher on 09/03 and the surgeon on 10/07. 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 Recommend discussing further with her electronic science teacher at appointment on 09/03 3. Dyspnea on [...] occur. Patient agreeable to treatment plan. Savanna Kothari APRN.ENVIRONMENTAL SYSTEMS COORDINATOR documented in this encounterPremier Health12-14-2024 History of Present illness Narrative* Vaishali Oseguera RN - 08/22/2024 10:14 AM EST 08/22/24 1014 Discharge Planning Expected Discharge Disposition Home H Patient has avtive discharge order. [facility] notified and they said SOC will be within 48 hours.. Patient is going home with [facility] following. 1015 Patient is medically ready for discharge They are being discharged to: Home _Husband will pick patient [facility] Name of agency on AVS- [facility] Patient denies any other needs * Alivia Nieto OT - 08/21/2024 4:33 PM EST Occupational Therapy OT Treatment Patient Name: Karla Cai Department: AHU A 4 ICU Room: [facility]/426- Today's Date: 08/21/2024 Time Calculation Start Time: [...] Activity 2: Pt and spouse educated on product safety engineer and long handled sponge for maximal safety for ADLs. Provided pt and spouse with handout in order to obtain AE. Educated on MITT precautions and compensatory techniques for ADLs, both pt and spouse receptive to all education. Outcome Measures:[facility] Daily Activity Putting on and taking off [...] for complete assessment, if indicated. * Sarah Giles, VOCATIONAL REHAB CONSULTANT - 08/21/2024 3:41 PM EST Physical Therapy Physical Therapy Treatment Patient Name: Karla Cai Department: [place] [address] ICU Room: [address] [place] [address] Today's Date: 08/21/2024 Time Calculation Start Time: [...] for cane and rail sequencing. Outcome Measures: [facility] Basic Mobility Turning from your back to [...] task) Sitting: Supervision or set-up only Transfer Ucj-oi-Exbvj: Minimal Assist (CGA from wheel chair) Transfer Ttusrw-fa-Tnn: Moderate assistance (performs 50 - 74% of [...] Possible discharge tomorrow. Will go home with [facility]. Herlinda Castillo RN TCC * Adriana Garnica PA-C - 08/21/2024 11:39 AM EST Karla Cai is a 73 y.o. female on day 11 of admission presenting with Aneurysm of ascendingaorta without rupture ([facility]). Subjective Feeling well, wants to go home [...] Fernanda Lambert 08/19/2024 12:17 PM Dictation workstation: [id number] XR chest 1 view Final Result Status post left-sided thoracentesis. No pneumothorax. Mild residual pleural and parenchymal opacities at the left base, improved. Mild stable infiltrate versus atelectasis at the medial right lung base. Previous heart surgery. Stable cardiomegaly. MACRO: None Signed by: Rob Hussein 08/18/2024 3:37 PM Dictation workstation: [id number] US thoracentesis Final Result Uneventful thoracentesis, as detailed above. Left pleural space, 850 mL I personally performed and/or directly supervised this study and was present for the entire procedure. Performed and dictated at [facility]. Signed by: Pee Tavares 08/18/2024 4:08 PM Dictation workstation: [id number] XR chest 2 views Final Result Cardiomegaly. Bilateral pleural effusions, left greater than right. Underlying infiltrates or atelectasis can not be excluded. MACRO: None Signed by: Elisabet Borges 08/18/2024 11:54 AM Dictation workstation: [id number] XR chest 2 views Final Result Interval removal of support devices. Status post sternotomy. Ksgw-ectsqtt-wlhe-right basilar infiltrates and/or pleural effusions. MACRO: None. Signed by: Fernanda Lambert 08/17/2024 11:22 AM Dictation workstation: [id number] XR chest 1 view Final Result 1. Patchy bibasilar opacities may represent atelectasis, edema, aspiration, or infection. 2. Small left pleural effusion. MACRO: None Signed by: Lenard Munguia 08/14/2024 8:07 AM Dictation workstation: [id number] XR chest 1 view Final Result 1. Near-total resolution of the right apical pneumothorax with question of tiny residual. 2. Persistent left basilar effusion and infiltrate for which continued follow-up recommended. Question subtle right basilar infiltrate. MACRO: None Signed by: Chirag Ortega 08/13/2024 8:06 AM Dictation workstation: [id number] XR chest 1 view Final Result 1. Stable exam. Small right apical pneumothorax. MACRO: None Signed by: Lenard Munguia 08/12/2024 6:05 PM Dictation workstation: [id number] Transthoracic Echo (TTE) Limited Final Result XR chest 1 view Final Result Recent heart surgery. Stable right IJ vein catheter and bibasilar chest tubes. Decrease in size of now tiny right apical pneumothorax. Stable pleural and parenchymal opacities at the left base. Stable atelectasis at the medial right lung base. Cardiomegaly. MACRO: None Signed by: Rob Hussein 08/12/2024 8:04 AM Dictation workstation: [id number] XR chest 1 view Final Result Recent [...] Rob Hussein 08/11/2024 8:18 AM Dictation workstation: [id number] XR chest 1 view Final Result Status post sternotomy with multiple support devices in place as above. Questionable small left apical pneumothorax. Wtah-ngqzjst-gzxo-right basilar infiltrates or atelectasis. MACRO: None. Signed by: Fernanda Lambert 08/10/2024 2:44 PM Dictation workstation: [id number] Anesthesia Intraoperative Transesophageal Echocardiogram Final Result XR chest 1 view (Results Pending) Assessment/Plan Assessment & Plan Aneurysm of ascending aorta without rupture ([facility]) Acute respiratory distress syndrome (ARDS) (Multi) Karla [...] of test results, discussion with other services/medical office worker, and discussion regarding major surgery, hospitalization and/or level of care needed, and/or code status. LEVEL OF COMPLEXITY: high TIME: 60 minutes Adriana Garnica PA-C * Alivia Nieto OT - 08/20/2024 5:32 PM EST Occupational Therapy OT Treatment Patient Name: Karla Cai Department: [place] [address] ICU Room: [address] [place] [address] Today's Date: 08/20/2024 Time Calculation Start Time: 1640 Stop Time: 1658 Time Calculation (min): 18 min Assessment: End [...] regurgitation Arthritis bilateral feet Ascending aortic aneurysm ([facility]) Breast cancer (Multi) 2010 s/p lumpectomy,radiation and [...] d/t fatigue. Cues for PLB. VSS. Outcome Measures:[facility] Daily Activity Putting on and taking off [...] Palacios RN - 08/20/2024 2:48 PM EST Plumbing And Heating Mechanic Note: Plan: patient s/p asc aorta replacement. ARDS post op. S/p thoracentesis. PTOT rec LOW. Monitoring heart rate. Home o2 eval at dc. Status: inpatient Payor: [employer]sy medicare Disposition: Home with new [facility] PT OT Barrier: HR control ADOD: tomorrow Isabel Palacios TCC 08/20/24 1448 Discharge Planning Expected Discharge Disposition Home H Intensity of Service Intensity of Service 0-30 min * Dania DuckworthD - 08/20/2024 12:08 PM EST Karla Cai [...] Indu Holman PharmD Transitions of Care P: [phone] * Sarah Giles PTA - 08/20/2024 12:03 PM EST Physical Therapy Physical Therapy Treatment Patient Name: Karla Cai Department: [place] [address] ICU Room: [address] [place] [address] Today's Date: 08/20/2024 Time Calculation Start Time: [...] manage fatigue. Stairnegotiaton training began today. This VOCATIONAL REHAB CONSULTANT discussed with supervising PT, the increase in [...] needed with each ascending step. Outcome Measures: [facility] Basic Mobility Turning from your back to [...] task) Sitting: Supervision or set-up only Transfer Soc-ms-Japuv: Minimal Assist (CGA from wheel chair) Transfer Nxzhip-ko-Seq: Moderate assistance (performs 50 - 74% of [...] 08/20/2024 2:56 PM EST * Mark Geiger, CONSULTING SOLUTION MANAGER-ENVIRONMENTAL SYSTEMS COORDINATOR - 08/20/2024 9:15 AM EST Karla Cai is a 73 y.o. female on day 10 of admission presenting with Aneurysm of ascendingaorta without rupture ([facility]). Subjective ASHLEY reported. Recently converted to SR [...] INDICATION: Signs/Symptoms:s/p thoracentesis. COMPARISON: 08/18/2024 ACCESSION NUMBER(S): [id number] ORDERING CLINICIAN: EH MCKEON FINDINGS: Artifact from overlying monitoring leads noted. Hazy bibasilar opacities with blunting of the left costophrenic angle again seen. No definite pneumothorax. The cardiomediastinal silhouette remains enlarged with overlying sternotomy wires and atrial closure device again seen. Persistent bibasilar infiltrates and/or pleural effusions. No definite pneumothorax. MACRO: None. Signed by: Fernanda Lambert 08/19/2024 12:17 PM Dictation workstation: [id number] US thoracentesis Result Date: 08/18/2024 Interpreted By: Pee Tavares, STUDY: US [id number]/10/24387:07 pm INDICATION: Signs/Symptoms:worsening left pleural effusion COMPARISON: Chest Xray 08/18/2024 ACCESSION NUMBER(S): [id number] ORDERING CLINICIAN: EH MCKEON TECHNIQUE: INTERVENTIONALIST(S): Pee [...] a left-sided thoracentesis was performed. A 5 [place] One-Step Valved thoracentesis needle/catheter was then placed [...] the entire procedure. Performed and dictated at [facility]. Signed by: Pee Tavares 08/18/2024 4:08 PM Dictation w orkstation: [id number] XR chest 1 view Result Date: 08/18/2024 Interpreted By: Rob Hussein, STUDY: XR CHEST 1 VIEW; 08/18/2024 3:17 pm INDICATION: Signs/Symptoms:post thora. COMPARISON: Chest x-ray from 08/18/2024 at 11:52 a.m. ACCESSION NUMBER(S): [id number] ORDERING CLINICIAN: PEE TAVARES TECHNIQUE: Single AP [...] Rob Hussein 08/18/2024 3:37 PM Dictation workstation: [id number] XR chest 2 views Result Date: 08/18/2024 Interpreted By: Elisabet Borges, STUDY: XR CHEST 2 VIEWS; 08/18/2024 11:39 am INDICATION: Signs/Symptoms:follow pleural effusion. COMPARISON: 08/17/2024 ACCESSION NUMBER(S): [id number] ORDERING CLINICIAN: EH MCKEON FINDINGS: Sternotomy wires [...] Elisabet Borges 08/18/2024 11:54 AM Dictation workstation: [id number] Assessment/Plan Assessment & Plan Aneurysm of ascending [...] overall care of this patient. Mark Geiger APRN-ENVIRONMENTAL SYSTEMS COORDINATOR * Odette Tracey, OT - 08/19/2024 4:08 PM EST Occupational Therapy OT Treatment Patient Name: Karla Cai Department: [place] [address] ICU Room: [address] [place] [address] Today's Date: 08/19/2024 Time Calculation Start Time: [...] cues for hand placement upon sit/stand Outcome Measures:[facility] Daily Activity Putting on and taking off [...] Therapy Treatment Patient Name: Karla Cai Department: [place] [address] ICU Room: [facility]-A Today's Date: 08/19/2024 Time Calculation Start Time: [...] activity today. Increased HR and decreased BP. MEAT SERVICE TEAM MEMBER limiting activites this date. End of Session [...] kinesthetic, visual General Comment: RN reporting - MEAT SERVICE TEAM MEMBER voiding stair negotiation today due to increased [...] to sit Transfer Device 1: Gait belt (nezzie walker.) Transfer Level of Assistance 1: Close supervision (pt maintaining MITT precautions.) Outcome Measures: [facility] Basic Mobility Turning from your back to [...] task) Sitting: Supervision or set-up only Transfer Odo-nj-Mlkcl: Supervision or set-up only Transfer Hcviyf-bz-Otx: Moderate assistance (performs 50 - 74% of [...] Goal 3 Start: 08/10/24 Cosigned by Sanchez Whitfield, PT at 08/19/2024 4:38 PM EST * Eh Mckeon, CONSULTING SOLUTION MANAGER-ENVIRONMENTAL SYSTEMS COORDINATOR - 08/19/2024 11:59 AM EST Karla Cai is a 73 y.o. female on day 9 of admission presenting with Aneurysm of ascending aorta without rupture ([facility]) Subjective Afib 120's over night received Amio [...] Rob Hussein 08/18/2024 3:37 PM Dictation workstation: [id number] US thoracentesis Final Result Uneventful thoracentesis, as detailed above. Left pleural space, 850 mL I personally performed and/or directly supervised this study and was present for the entire procedure. Performed and dictated at [facility]. Signed by: Pee Tavares 08/18/2024 4:08 PM Dictation workstation: [id number] XR chest 2 views Final Result Cardiomegaly. Bilateral pleural effusions, left greater than right. Underlying infiltrates or atelectasis can not be excluded. MACRO: None Signed by: Elisabet Borges 08/18/2024 11:54 AM Dictation workstation: [id number] XR chest 2 views Final Result Interval removal of support devices. Status post sternotomy. Yibl-nsgolbf-ljdc-right basilar infiltrates and/or pleural effusions. MACRO: None. Signed by: Fernanda Lambert 08/17/2024 11:22 AM Dictation workstation: [id number] XR chest 1 view Final Result 1. Patchy bibasilar opacities may represent atelectasis, edema, aspiration, or infection. 2. Small left pleural effusion. MACRO: None Signed by: Lenard Munguia 08/14/2024 8:07 AM Dictation workstation: [id number] XR chest 1 view Final Result 1. Near-total resolution of the right apical pneumothorax with question of tiny residual. 2. Persistent left basilar effusion and infiltrate for which continued follow-up recommended. Question subtle right basilar infiltrate. MACRO: None Signed by: Chirag Ortega 08/13/2024 8:06 AM Dictation workstation: [id number] XR chest 1 view Final Result 1. Stable exam. Small right apical pneumothorax. MACRO: None Signed by: Lenard Munguia 08/12/2024 6:05 PM Dictation workstation: [id number] Transthoracic Echo (TTE) Limited Final Result XR chest 1 view Final Result Recent heart surgery. Stable right IJ vein catheter and bibasilar chest tubes. Decrease in size of now tiny right apical pneumothorax. Stable pleural and parenchymal opacities at the left base. Stable atelectasis at the medial right lung base. Cardiomegaly. MACRO: None Signed by: Rob Hussein 08/12/2024 8:04 AM Dictation workstation: [id number] XR chest 1 view Final Result Recent [...] Rob Hussein 08/11/2024 8:18 AM Dictation workstation: [id number] XR chest 1 view Final Result Status post sternotomy with multiple support devices in place as above. Questionable small left apical pneumothorax. Cxwa-jbdxdgb-bzzh-right basilar infiltrates or atelectasis. MACRO: None. Signed by: Fernanda Lambert 08/10/2024 2:44 PM Dictation workstation: [id number] Anesthesia Intraoperative Transesophageal Echocardiogram Final Result Medications [...] afib will require AC, Hopefully home with [facility] in the next few days pending SR [...] Thoracentesis yesterday. Current dc plan home with [facility] once medically stable. * Jessy Hernández, PT - 08/18/2024 6:17 PM EST Physical Therapy Physical Therapy Treatment Patient Name: Karla Cai Department: [place] [address] ICU Room: [address] [place] [address] Today's Date: 08/18/2024 Time Calculation Start Time: [...] Session Communication: Bedside nurse, Physician (Padmini Soto, CONSULTING SOLUTION MANAGER-ENVIRONMENTAL SYSTEMS COORDINATOR rounding with Dr. Proctor following mobility, aware [...] Response to Interventions: Decrease in pain, Content/relaxed (2/10 post mobility) Cognition: Cognition Overall Cognitive Status: [...] BLUE/fatigue with ambulationon level surface.) Outcome Measures: [facility] Basic Mobility Turning from your back to [...] task) Sitting: Supervision or set-up only Transfer Lgp-rr-Zqwqs: Supervision or set-up only Transfer Kpclrz-il-Yip: Moderate assistance (performs 50 - 74% of task) Total Score: 21 Early Mobility/Exercise Safety Screen: Proceed with mobilization - No exclusion criteria met ICU Mobility Scale: Walking with assistance of 1 person [8] Education Documentation Handouts, taught by Jessy Hernández PT at 08/18/2024 6:15 PM. Learner: Significant Other, Patient Readiness: Acceptance Method: Explanation, Demonstration, Handout Response: Verbalizes Understanding, Demonstrated Understanding Comment: review and progression of mobility with respect to precautions. Precautions, taught by Jessy Hernández PT at 08/18/2024 [...] precautions. Home Exercise Program, taught by Jessy Hernández, PT at 08/18/2024 [...] Communication Note Patient Name: Karla Cai Department: [facility] Room: 6/426-A Today's Date: 08/18/2024 Discipline: Occupational Therapy Missed Visit Reason: Missed Visit Reason: Patient in a medical procedure (Attempted OT tx, per RN, pt currently off the floor for thoracentesis.) Missed Time: Attempt Cosigned by Nicol Cai OT at 08/20/2024 8:50 AM EST * Eh Mckeon APRN-ENVIRONMENTAL SYSTEMS COORDINATOR - 08/18/2024 6:55 AM EST Karla Cai is a 73 y.o. female on day 8 of admission presenting with Aneurysm of ascending aorta without rupture ([facility]) Subjective Ambulated in caba this morning, seen [...] removal of support devices. Status post sternotomy. Lbgn-toncjyr-itoo-right basilar infiltrates and/or pleural effusions. MACRO: None. Signed by: Fernanda Lambert 08/17/2024 11:22 AM Dictation workstation: [id number] XR chest 1 view Final Result 1. Patchy bibasilar opacities may represent atelectasis, edema, aspiration, or infection. 2. Small left pleural effusion. MACRO: None Signed by: Lenard Munguia 08/14/2024 8:07 AM Dictation workstation: [id number] XR chest 1 view Final Result 1. Near-total resolution of the right apical pneumothorax with question of tiny residual. 2. Persistent left basilar effusion and infiltrate for which continued follow-up recommended. Question subtle right basilar infiltrate. MACRO: None Signed by: Chirag Ortega 08/13/2024 8:06 AM Dictation workstation: [id number] XR chest 1 view Final Result 1. Stable exam. Small right apical pneumothorax. MACRO: None Signed by: Lenard Munguia 08/12/2024 6:05 PM Dictation workstation: [id number] Transthoracic Echo (TTE) Limited Final Result XR chest 1 view Final Result Recent heart surgery. Stable right IJ vein catheter and bibasilar chest tubes. Decrease in size of now tiny right apical pneumothorax. Stable pleural and parenchymal opacities at the left base. Stable atelectasis at the medial right lung base. Cardiomegaly. MACRO: None Signed by: Rob Hussein 08/12/2024 8:04 AM Dictation workstation: [id number] XR chest 1 view Final Result Recent [...] Rob Hussein 08/11/2024 8:18 AM Dictation workstation: [id number] XR chest 1 view Final Result Status post sternotomy with multiple support devices in place as above. Questionable small left apical pneumothorax. Ebkq-rzfpoaw-ohfq-right basilar infiltrates or atelectasis. MACRO: None. Signed by: Fernanda Lambert 08/10/2024 2:44 PM Dictation workstation: [id number] Anesthesia Intraoperative Transesophageal Echocardiogram Final Result Medications [...] Problem: Aneurysm of ascending aorta without rupture ([facility]) Active Problems: Acute respiratory distress syndrome (ARDS) [...] completed Dispo: SDU status; anticipating home with [facility] tomorrow Time spent on the assessment of patient, gathering and interpreting data, review of medical record/patient history, personally reviewing radiographic imaging and formulation of this note. With greater than 50% spent in personal discussion with patient/ family. Time:45 Eh Mckeon APRN-TYRA * Jessy Hernández, PT - 08/17/2024 6:54 PM EST Physical Therapy Physical Therapy Treatment Patient Name: Karla Cai Department: [place] [address] ICU Room: [address] [place] [address] Today's Date: 08/17/2024 Time Calculation Start Time: 1754 Stop Time: 1821 Time Calculation (min): 27 min Assessment/Plan PT [...] is now mobilizing with CGA/SBA support andkenny walker on 1LO2 NC with moderate fatigue; progressing [...] participate. (ambulated in halls x3 today with greggpao kim) General Reason for Referral: POD #7 ascending aorta repair with [facility] Referred By: DO Ranjan Past Medical History Relevant to Rehab: Past Medical History: Diagnosis Date Allergic rhinitis Aortic regurgitation Arthritis bilateral feet Ascending aortic aneurysm ([facility]) Breast cancer (Multi) 2010 s/p lumpectomy,radiation and [...] on level surfaces this date) Outcome Measures: [facility] Basic Mobility Turning from your back to [...] task) Sitting: Supervision or set-up only Transfer Pkz-mj-Sprsl: Minimal assistance (performs 75% or more of task) Transfer Zfeimj-mk-Kxv: Moderate assistance (performs 50 - 74% of task) Total Score: 20 Early Mobility/Exercise Safety Screen: Proceed with mobilization - No exclusion criteria met ICU Mobility Scale: Walking with assistance of 1 person [8] Education Documentation Handouts, taught by Jessy Hernández PT at 08/17/2024 [...] Oseguera RN - 08/17/2024 5:24 PM EST 08/17/241723 Discharge Planning Expected Discharge Disposition Home H Patient remains in ICU. She is sitting up in the chair. Her oxygen demand is decreased and she is on 1L NC. When patient is medically ready will go home with her and [facility] following. * Jessy Hernández, PT - 08/17/2024 3:19 PM EST Physical Therapy Therapy Communication Note Patient Name: Karla Cai Department: [place] [address] ICU Room: [address] [place] [address] Today's Date: 08/17/2024 Discipline: Physical Therapy Missed Visit Reason: Missed Visit Reason: Patient sleeping (returned from [facility] in [place] ~40 minutes prior. requires supplemental O2 support and vitals monitoring. patient agreeable to mobilize again later today. disucssed with DANIEL Larry.) Missed Time: Attempt Comment: * Vita Hernandez Cap, APRN-TYRA - 08/17/2024 7:39 AM EST Karla Cai is a 73 y.o. female on day 7 of admission presenting with Aneurysm of ascending aorta without rupture ([facility]). Subjective Pain controlled/ improved ambulating in halls [...] Lenard Munguia 08/14/2024 8:07 AM Dictation workstation: [id number] XR chest 1 view Final Result 1. Near-total resolution of the right apical pneumothorax with question of tiny residual. 2. Persistent left basilar effusion and infiltrate for which continued follow-up recommended. Question subtle right basilar infiltrate. MACRO: None Signed by: Chirag Ortega 08/13/2024 8:06 AM Dictation workstation: [id number] XR chest 1 view Final Result 1. Stable exam. Small right apical pneumothorax. MACRO: None Signed by: Lenard Munguia 08/12/2024 6:05 PM Dictation workstation: [id number] Transthoracic Echo (TTE) Limited Final Result XR chest 1 view Final Result Recent heart surgery. Stable right IJ vein catheter and bibasilar chest tubes. Decrease in size of now tiny right apical pneumothorax. Stable pleural and parenchymal opacities at the left base. Stable atelectasis at the medial right lung base. Cardiomegaly. MACRO: None Signed by: Rob Hussein 08/12/2024 8:04 AM Dictation workstation: [id number] XR chest 1 view Final Result Recent [...] Rob Hussein 08/11/2024 8:18 AM Dictation workstation: [id number] XR chest 1 view Final Result Status post sternotomy with multiple support devices in place as above. Questionable small left apical pneumothorax. Pokq-pjawbfb-blsx-right basilar infiltrates or atelectasis. MACRO: None. Signed by: Fernanda Lambert 08/10/2024 2:44 PM Dictation workstation: [id number] Anesthesia Intraoperative Transesophageal Echocardiogram Final Result XR [...] completed Dispo: SDU status; anticipating home with [facility] mid to late week Seen & Discussed plan with Dr Mcdonald Bedside RN, patient and all in agreement I spent 60 minutes in the professional and overall care of this patient. JESSE Marin Cap * Odette Tracey OT - 08/16/2024 1:44 PM EST Occupational Therapy Therapy Communication Note Patient Name: Karla Cai Department: [place] [address] ICU Room: [address] [place] [address] Today's Date: 08/16/2024 Discipline: Occupational Therapy Missed Visit Reason: Missed Visit Reason: Other (Comment) (Per RN pt was just up and ambulating to the bathroom, pt eating lunch now. OT asked to defer at this time.) Missed Time: Attempt * Saul Tariq PTA - 08/16/2024 10:04 AM EST Physical Therapy Physical Therapy Treatment Patient Name: Karla Cai Department: [place] [address] ICU Room: [address] [place] [address] Today's Date: 08/16/2024 Time Calculation Start Time: [...] and standing. No overt LOB. Outcome Measures: [facility] Basic Mobility Turning from your back to [...] at 08/16/2024 4:17 PM EST * Eh Mckeon, CONSULTING SOLUTION MANAGER-ENVIRONMENTAL SYSTEMS COORDINATOR - 08/16/2024 7:39 AM EST Karla Cai is a 73 y.o. female on day 6 of admission presenting with Aneurysm of ascending aorta without rupture ([facility]) Subjective ASHLEY, slept a little better Remains on 1-2 L NC, HD stable, SR 80-90's, +BM, voiding (has not measured) Ambulated multiple times yesterday Objective Physical Exam Vitals reviewed. Constitutional: General: She is not in acute distress. Appearance: She is weak Comments: Elderly female sitting up in chair, color improved Neck: Comments: RIJ CVC dressing c/d/i Cardiovascular: Rate and Rhythm: [...] Lenard Munguia 08/14/2024 8:07 AM Dictation workstation: [id number] XR chest 1 view Final Result 1. Near-total resolution of the right apical pneumothorax with question of tiny residual. 2. Persistent left basilar effusion and infiltrate for which continued follow-up recommended. Question subtle right basilar infiltrate. MACRO: None Signed by: Chirag Ortega 08/13/2024 8:06 AM Dictation workstation: [id number] XR chest 1 view Final Result 1. Stable exam. Small right apical pneumothorax. MACRO: None Signed by: Lenard Munguia 08/12/2024 6:05 PM Dictation workstation: [id number] Transthoracic Echo (TTE) Limited Final Result XR chest 1 view Final Result Recent heart surgery. Stable right IJ vein catheter and bibasilar chest tubes. Decrease in size of now tiny right apical pneumothorax. Stable pleural and parenchymal opacities at the left base. Stable atelectasis at the medial right lung base. Cardiomegaly. MACRO: None Signed by: Rob Hussein 08/12/2024 8:04 AM Dictation workstation: [id number] XR chest 1 view Final Result Recent [...] Rob Hussein 08/11/2024 8:18 AM Dictation workstation: [id number] XR chest 1 view Final Result Status post sternotomy with multiple support devices in place as above. Questionable small left apical pneumothorax. Jycj-mzlrzng-kocy-right basilar infiltrates or atelectasis. MACRO: None. Signed by: Fernanda Lambert 08/10/2024 2:44 PM Dictation workstation: [id number] Anesthesia Intraoperative Transesophageal Echocardiogram Final Result Medications [...] Problem: Aneurysm of ascending aorta without rupture ([facility]) Active Problems: Acute respiratory distress syndrome (ARDS) [...] TIME: 45 minutes JESSE Wilks * Misti Saha OT - 08/15/2024 2:09 PM EST Occupational Therapy Occupational Therapy Treatment Name: Karla Cai Department: [place] [address] ICU Room: [address] [place] [address] Date: 08/15/24 Time Calculation Start Time: 1147 [...] Trials/Comments 2: (vc's for sequencing) Outcome Measures: [facility] Daily Activity Putting on and taking off [...] Therapy Treatment Patient Name: Karla Cai Department: [place] [address] ICU Room: [address] [place] [address] Today's Date: 08/15/2024 Time Calculation Start Time: [...] and post CPB, new LBBB Referred By: DO Ranjan Past Medical History [...] Trials/Comments 2: VCs for sequencing Outcome Measures: [facility] Basic Mobility Turning from your back to [...] 08/10/24 Goal 3 Start: 08/10/24 * Eh S Mckeon, CONSULTING SOLUTION MANAGER-ENVIRONMENTAL SYSTEMS COORDINATOR - 08/15/2024 7:06 AM EST Karla Cai is a 73 y.o. female on day 5 of admission presenting with Aneurysm of ascending aorta without rupture ([facility]) Subjective Did not sleep well otherwise no issues Weaned off Airvo now on 2L NC O2 sats >96% NRS 90's Remains off pressors MAP>65 A-line removed this AM Objective Physical Exam Vitals reviewed. Constitutional: General: She is not in acute distress. Appearance: She is weak Comments: Elderly female sitting up in chair, color improved Neck: Comments: [facility] CVC Cardiovascular: Rate and Rhythm: Regular Pulses: [...] Shifts I/O last 3 completed shifts: In: 26087.2 (275.4 mL/kg) [P.O.:960; I.V.:922.9 (11.4 mL/kg); Blood:96913.3] Out: 675 (8.3 mL/kg) [Urine:395 (0.1 mL/kg/hr); [...] Lenard Munguia 08/14/2024 8:07 AM Dictation workstation: [id number] XR chest 1 view Final Result 1. Near-total resolution of the right apical pneumothorax with question of tiny residual. 2. Persistent left basilar effusion and infiltrate for which continued follow-up recommended. Question subtle right basilar infiltrate. MACRO: None Signed by: Chirag Ortega 08/13/2024 8:06 AM Dictation workstation: [id number] XR chest 1 view Final Result 1. Stable exam. Small right apical pneumothorax. MACRO: None Signed by: Lenard Munguia 08/12/2024 6:05 PM Dictation workstation: [id number] Transthoracic Echo (TTE) Limited Final Result XR chest 1 view Final Result Recent heart surgery. Stable right IJ vein catheter and bibasilar chest tubes. Decrease in size of now tiny right apical pneumothorax. Stable pleural and parenchymal opacities at the left base. Stable atelectasis at the medial right lung base. Cardiomegaly. MACRO: None Signed by: Rob Hussein 08/12/2024 8:04 AM Dictation workstation: [id number] XR chest 1 view Final Result Recent [...] Rob Hussein 08/11/2024 8:18 AM Dictation workstation: [id number] XR chest 1 view Final Result Status post sternotomy with multiple support devices in place as above. Questionable small left apical pneumothorax. Aota-pllfzou-oelb-right basilar infiltrates or atelectasis. MACRO: None. Signed by: Fernanda Lambert 08/10/2024 2:44 PM Dictation workstation: [id number] Anesthesia Intraoperative Transesophageal Echocardiogram Final Result Medications [...] Problem: Aneurysm of ascending aorta without rupture ([facility]) Active Problems: Acute respiratory distress syndrome (ARDS) [...] Therapy Treatment Patient Name: Karla Cai Department: [place] [address] ICU Room: [address] [place] [address] Today's Date: 08/14/2024 Time Calculation Start Time: [...] and post CPB, new LBBB Referred By: DO Ranjan Past Medical History [...] RIJ TLC with CVP monitoring. Per Padmini Soto APRN-TYRA, ok to remove chest tubes following session. [...] for sequencing and postural corrections Outcome Measures: [facility] Basic Mobility Turning from your back to [...] task) Sitting: Supervision or set-up only Transfer Zmc-lq-Fxnqm: Moderate assistance (performs 50 - 74% of task) Transfer Befwdw-dc-Uku: Total assistance (performs 25% or requires another person) Total Score: 13 Early Mobility/Exercise Safety Screen: Proceed with mobilization - No exclusion criteria met ICU Mobility Scale: Transferring bed to chair [5] Education Documentation Handouts, taught by Jessy Hernández PT at 08/14/2024 [...] stability. Home Exercise Program, taught by Jessy Hernández, PT at 08/14/2024 5:48 PM. Learner: Significant Other, Patient Readiness: Acceptance Method: Explanation, Demonstration Response: Verbalizes Understanding, Demonstrated Understanding Comment: reviewed breathing technqiues, postural corrections, transfer & gait training, logroll. interpretation of vitals response -extended rest breaks between activity to ensure recovery. progressive mobility pending ongoing medical stability. Mobility Training, taught by Jessy Henrández, PT at 08/14/2024 5:48 PM. Learner: Significant [...] Occupational Therapy Treatment Name: Karla Cai Department: [address] Room: [address] [place] [address] Date: 08/14/24 Time Calculation Start Time: 1440 [...] and post CPB, new LBBB Referred By: (Pack, DO) Past Medical History Relevant to Rehab: Past [...] Patient would occasionally hold onto platform of [employer]. Patient completed grooming task to brush teeth.) [...] Standing-Level of Assistance: Minimum assistance Outcome Measures: [facility] Daily Activity Putting on and taking off [...] Plan is still to go home with [facility] when medically ready. Will continue to follow for discharge needs. * Eh Mckeon, CONSULTING SOLUTION MANAGER-ENVIRONMENTAL SYSTEMS COORDINATOR - 08/14/2024 7:00 AM EST Karla Cai is a 73 y.o. 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 Stable exam. Small right apical pneumothorax. MACRO: None Signed by: Lenard Munguia 08/12/2024 6:05 PM Dictation workstation: [id number] Transthoracic Echo (TTE) Limited Final Result XR chest 1 view Final Result Recent heart surgery. Stable right IJ vein catheter and bibasilar chest tubes. Decrease in size of now tiny right apical pneumothorax. Stable pleural and parenchymal opacities at the left base. Stable atelectasis at the medial right lung base. Cardiomegaly. MACRO: None Signed by: Rob Hussein 08/12/2024 8:04 AM Dictation workstation: [id number] XR chest 1 view Final Result Recent [...] Rob Hussein 08/11/2024 8:18 AM Dictation workstation: [id number] XR chest 1 view Final Result Status post sternotomy with multiple support devices in place as above. Questionable small left apical pneumothorax. Ajmc-rlhtdvx-cmmx-right basilar infiltrates or atelectasis. MACRO: None. Signed by: Fernanda Lambert 08/10/2024 2:44 PM Dictation workstation: [id number] Anesthesia Intraoperative Transesophageal Echocardiogram Final Result Medications [...] Problem: Aneurysm of ascending aorta without rupture ([facility]) 73 y.o. F PMHx of Ascending aortic [...] Occupational Therapy Treatment Name: Karla Cai Department: [place] [address] ICU Room: [address] [place] [address] Date: 08/13/24 Time Calculation Start Time: 1420 [...] breathing techniques reviewed with patient.) Outcome Measures: [facility] Daily Activity Putting on and taking off [...] Start: 08/11/24 Expected End: 08/25/24 * Judith Weber, PT - 08/13/2024 10:42 AM EST Physical Therapy Therapy Communication Note Patient Name: Karla aCi Department: [place] [address] ICU Room: [address] [place] [address] Today's Date: 08/13/2024 Discipline: Physical Therapy Missed Visit Reason: Missed Visit Reason: Patient placed on medical hold (Nurse requests to defer PT tx at this time. They are waiting on some lab values, and will attempt to wean her from some meds.She is currently on AirVO, and continues to have low BP.) Missed Time: Attempt/Hold * Paul Hodgson RN - 08/13/2024 7:40 AM EST 08/13/24 0740 Discharge Planning Expected Discharge Disposition Home H POD 3 AA replacement and pericardial window. Worsening hypoxia and vasoplegia last night. Placed onairvo and vasopressor. B/L chest tubes in place. Current dc plan home with [facility]. [facility] to continue to follow for further dc needs. * Eh Mckeon APRN-ENVIRONMENTAL SYSTEMS COORDINATOR - 08/13/2024 7:12 AM EST Karla Cai is a 73 y.o. 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 [...] Lenard Munguia 08/12/2024 6:05 PM Dictation workstation: [id number] Transthoracic Echo (TTE) Limited Final Result XR chest 1 view Final Result Recent heart surgery. Stable right IJ vein catheter and bibasilar chest tubes. Decrease in size of now tiny right apical pneumothorax. Stable pleural and parenchymal opacities at the left base. Stable atelectasis at the medial right lung base. Cardiomegaly. MACRO: None Signed by: Rob Hussein 08/12/2024 8:04 AM Dictation workstation: [id number] XR chest 1 view Final Result Recent [...] Rob Hussein 08/11/2024 8:18 AM Dictation workstation: [id number] XR chest 1 view Final Result Status post sternotomy with multiple support devices in place as above. Questionable small left apical pneumothorax. Rvqn-ncctres-rcpe-right basilar infiltrates or atelectasis. MACRO: None. Signed by: Fernanda Lambert 08/10/2024 2:44 PM Dictation workstation: [id number] Anesthesia Intraoperative Transesophageal Echocardiogram Final Result Medications [...] Problem: Aneurysm of ascending aorta without rupture ([facility]) 73 y.o. F PMHx of Ascending aortic [...] this close post op with completion of zoei op abx 08/12, UA negative, Blood culture [...] Communication Note Patient Name: Karla Cai Department: [place] [address] ICU Room: [address] [place] [address] Today's Date: 08/12/2024 Discipline: Occupational Therapy Missed Visit Reason: (Attempted to see, spoke with PT and patient with drop in Blood Pressure upon standing and unable to participate in therapy per RN.) * Judith Weber PT - 08/12/2024 3:02 PM EST Physical Therapy Therapy Communication Note Patient Name: Karla Cai Department: [facility] 4 ICU Room: 42/426-A Today's Date: 08/12/2024 Discipline: Physical Therapy Missed [...] op resp insufficiency s/p sternotomy as per ENVIRONMENTAL SYSTEMS COORDINATOR. Dietary Orders (From admission, onward) Start Ordered 08/10/242223 Adult diet Regular, Cardiac; 70 gm fat; 2 - 3 grams Sodium Diet effective now Question Answer Comment Diet type Regular Diet type Cardiac Fat restriction: 70 gm fat Sodium restriction: 2 - 3 grams Sodium 08/10/244 08/10/24 1645 May Not Participate in Room Service ( ROOM SERVICE MAY NOT PARTICIPATE) Once Question: . Answer: Yes 08/10/24 1644 08/10/24 1240 Oral nutritional supplements - Mitchel [...] for complete assessment, if indicated. * Eh Mckeon, CONSULTING SOLUTION MANAGER-ENVIRONMENTAL SYSTEMS COORDINATOR - 08/12/2024 7:10 AM EST Karla Cai is a 73 y.o. female on day 2 of admission presenting with Aneurysm of ascending aorta without rupture ([facility]) Subjective Received 1 unit prbc over night, [...] Rob Hussein 08/12/2024 8:04 AM Dictation workstation: [id number] XR chest 1 view Final Result Recent [...] Rob Hussein 08/11/2024 8:18 AM Dictation workstation: [id number] XR chest 1 view Final Result Status post sternotomy with multiple support devices in place as above. Questionable small left apical pneumothorax. Dbhj-obyfmje-ptkj-right basilar infiltrates or atelectasis. MACRO: None. Signed by: Fernanda Lambert 08/10/2024 2:44 PM Dictation workstation: [id number] Anesthesia Intraoperative Transesophageal Echocardiogram Final Result Medications [...] Problem: Aneurysm of ascending aorta without rupture ([facility]) 73 y.o. F PMHx of Ascending aortic [...] reported separately. CRITICAL CARE TIME: 70 minutes Eh Mckeon, CONSULTING SOLUTION MANAGER-ENVIRONMENTAL SYSTEMS COORDINATOR Electronically signed by Eh Mckeon, CONSULTING SOLUTION MANAGER-ENVIRONMENTAL SYSTEMS COORDINATOR at 08/12/2024 3:10 PM EST * Jessy Hernández, PT - 08/11/2024 3:43 PM EST Physical Therapy Physical Therapy Evaluation & Treatment Patient Name: Karla Cai Department: [place] [address] ICU Room: [address] [place] [address] Today's Date: 08/11/2024 Time Calculation Start Time: [...] Prior Function Per Pt/Caregiver Report Level of Nuevo: Independent with ADLs and functional transfers, Independent [...] sitting; HR 94, CVP 12, RR 23, VFU807%. Patient also with large amount of chest [...] A to lower into chair Outcome Measures: [facility] Basic Mobility Turning from your back to [...] (performs 25% - 49% of task) Transfer Tms-dm-Ncopz: Moderate assistance (performs 50 - 74% of task) Transfer Pfogqx-vh-Pxl: Maximal assistance (performs 25% - 49% of [...] progressive mobility Body Mechanics, taught by Jessy Hernández, PT at 08/11/2024 [...] mobility Education Comments No comments found. * Rolomarie Hodgson, OT - 08/11/2024 2:03 PM EST Occupational Therapy Evaluation Patient Name: Karla Cai Department: [place] [address] ICU Room: [address] [place] [address] Today's Date: 08/11/2024 Time Calculation Start Time: 1037 Stop Time: 1107 Time Calculation (min): 29 [...] sitting; HR 94, CVP 12, RR 23, NDF412%. Patient also with large amount of chest [...] crutches, wheeled walker.) Prior Function: Level of Nuevo: Independent with ADLs and functional transfers Receives [...] are Fluid and Coordinated: Yes Outcome Measures: [facility] Daily Activity Putting on and taking off [...] No Patient Choice Provider Choice list and CMS website (https://medicare.gov/care-compare#search) for post-acute Quality and Resource Measure Data were provided and reviewed with: Patient I met with patient and family at bedside and explained tcc role. POD 1 AA repair. She lives in a house with her , was ambulating independently and driving prior to surgery. PT/OT evals pending. Patient is agreeable to [facility] on dc. * Alexy Burton APRN-ENVIRONMENTAL SYSTEMS COORDINATOR - 08/11/2024 7:09 AM EST CTICU Progress Note Karla Cai/[id number] Admit Date: 08/10/2024 Hospital Length of Stay: [...] H2O): [5 cm H20] 5 cm H20 [place] SUP: [5 cm H20] 5 cm H20 [...] CTICU care for now. CTICU TEAM PHONE [phone] documented in this encounterGreen [facility] Hospital Work Phone: 1(932) 755-847212-14-2024 Miscellaneous Notes* Post-Procedure Note - Adriana Garnica [...] Brief Postprocedure Note Attending: Pee Tavares CNP Hot Dipper: none Diagnosis: left sided pleural effusion Description [...] 0.01 mcg/kg/min - 1.45 mL/hr Rate Change 2008 Stopped 2330 0.01 mcg/kg/min - 1.45 mL/hr [...] Rate/Dose/Volume Action 08/10/24 1838 4 L/min Start 2000 4 L/min Rate Verify Medical Gas 2006 [...] mg Given 08/13/24 0519 10 mg Given 2127 10 mg Given oxyCODONE (Roxicodone) immediate release tablet 5 mg (mg) Total dose: 0 mg Dosing weight: 82.9 Date/Time Rate/Dose/Volume Action 08/18/24 0837 *0 mg Return to Cabinet HYDROmorphone PF (Dilaudid) injection 0.2 mg (mg) Total dose: 0.4 mg Dosing weight: 77.1 Date/Time Rate/Dose/Volume Action 08/10/24 1848 0.2 mg Given 08/12/240 0.2 mg Given aspirin chewable tablet 81 [...] *2 tablet Missed 2216 2 tablet Given 08/11/24 08 2 tablet Given 2022 2 tablet Given 08/12/24802 2 tablet Given 2005 2 tablet Given 08/13/24 08 2 tablet Given 2127 2 tablet Given 08/14/24812 *2 tablet Missed 2015 *2 tablet Missed 08/15/24 07 *Not included in total Held by provider 0900 *2 tablet Missed 2099 *2 tablet Missed 08/16/24 09 *2 tablet Missed 2100 *2 tablet Missed 08/17/24 0900 *2 tablet Missed 2100 *2 tablet Missed 08/18/24 0900 *2 tablet Missed magnesium sulfate 2 g [...] 5 Units Given 1558 5 Units Given 6 *Not included in total Missed 08/12/24 0751 [...] 20 mg Given 08/12/242005 20 mg Given 08/13/242127 20 mg Given 08/14/242204 20 mg Given 08/15/242015 20 mg Given 08/16/242051 20 mg Given 08/17/242044 20 mg Given calcium gluconate 100 mg/mL [...] 10mL Dosing weight: 81.3 Date/Time Rate/Dose/Volume Action 08/15/242015 10 mL Given multivitamin with minerals 1 [...] & Plan Note - Vita Hernandez Cap, APRN-ENVIRONMENTAL SYSTEMS COORDINATOR - 08/17/2024 9:18 AM EST Associated Problem(s): [...] completed Dispo: SDU status; anticipating home with C mid to late week Seen & Discussed [...] Outcome: Progressing . * Significant Event - Eh Mckeon APRN-ENVIRONMENTAL SYSTEMS COORDINATOR - 08/12/2024 5:18 PM EST Near syncope [...] Window Operative Note Date: 08/10/2024 OR Location: [facility] A OR Name: Karla Cai, : 1950, Age: 73 y.o., , Sex: Female Diagnosis Pre-op Diagnosis * Ascending aortic aneurysm Post-op Diagnosis * Ascending aortic aneurysm Procedures Ascending aortic replacement with 30mm Hemashield graft Left atrial appendage clip with 45mm AtriClip Posterior pericardial window Surgeons * Joaquim Galloway MD - Primary Resident/Fellow/Other Hot Dipper: * ROSALIND Patterson - Assisting * JUAQUIN Payton - Assisting Staff: Collection Team Lead: Mayra Faust Person: Eamon Cold Roll Operator: Pamela Cold Roll Operator: Yuri Anesthesia Staff: Anesthesiologist: DO Andree Cadena-AA: SUHAIL Flynn In Shop Service Technician: Bette Sue SON: Howard Mijares Procedure Summary Anesthesia: [...] PLATELETS 500.00 mL LR bolus 1000.00 mL [id number] IV solution 1500.00 mL Norepinephrine Drip 0.00 [...] Fr. (Active) Site Assessment Clean;Skin intact 08/10/24 1530 Collection Container Urometer 08/10/24 1530 Securement Method Securing device (Describe) 08/10/24 1530 Reason for Continuing Urinary Catheterization accurate hourly measurement of urine volume in a critically ill patient that cannot be assessed by other volumes and urine collection strategies 530 Output (mL) 50 mL 08/10/24 1800 Implants: Implants Type Name Action Serial No. Heart Valve CARDIOPLEGIA SET - [id number] Implanted Implant PATCH, FELT, 1 X 6 IN, EPTFE - [id number] Implanted Other Cardiac Implant DEVICE, ATRICLIP FLEX V, 45MM - [id number] Implanted Implant GRAFT, VASCUTEK GELWEAVE 30 X 30 - [id number] - [id number] Implanted [id number] Findings: Normal biventricular function pre- and post-bypass Mild aortic regurgitation pre-bypass. No aortic regurgitation post-bypass. Chest Tubes/Drains: - 24 Comoran left pleural Duncan drain - 28 Comoran mediastinal chest tube Temporary Pacing Wires: Ventricular [...] was achieved throughout the mediastinum. A 24 [place] Duncan drain was placed in the left pleural space and a 28 [place] chest tube was placed in the mediastinum. [...] x2. [facility] Complications: None; patient tolerated the procedure well. Disposition: ICU - intubated and hemodynamically stable. Condition: Stable Task Performed by JUAQUIN or Cold Roll Operator: Assistance with ascending aortic replacement and performance of chest closure Additional Details: None Attending Attestation: I performed the procedure. Joaquim Galloway MD * Brief Op Note - JUAQUIN Johns - 08/10/2024 8:30 AM EST Date: 08/10/2024 OR Location: [facility] OR Name: Karla Cai, : 1950, Age: 73 y.o., , Sex: female Diagnosis Pre-op Diagnosis * Aneurysm of ascending aorta without rupture (CMS-HCC) [I71.21] Post-op Diagnosis * Aneurysm of ascending aorta without rupture (CMS-HCC) [I71.21] Procedures Ascending Aorta Replacement; Left Atrial Appendage Closure; Postereior Pericardial Window 57834 - NJ -AORT GRF W/CARD BYP F/AORTIC DS OTH/THN [...] Surgeons * Joaquim Galloway - Primary Resident/Fellow/Other Hot Dipper: Chrystal REZA Staff: Collection Team Lead: Mayra Jeffriesub Person: Eamon Cold Roll Operator: Pamela Cold Roll Operator: Yuri Anesthesia Staff: Anesthesiologist: Jah Olmedo DO C-AA: SUHAIL Flynn In Shop Service Technician: Adriana Sue SON: Howard Mijares Procedure Summary [...] AORTA SURGICAL PATHOLOGY EXAM Joaquim Galloway MD 08/10/2024829 Findings: Asc Ao Aneurysm Complications: None; patient tolerated the procedure well. Disposition: ICU - intubated and hemodynamically stable. Condition: stable Specimens Collected: ID Type Source Tests Collected by Time 1 : AORTIC TISSUE Tissue AORTA SURGICAL PATHOLOGY EXAM Joaquim Galloway MD 08/10/2024 08 Attending Attestation: I was present and scrubbed for the carvajal portions of the procedure. Joaquim Galloway Cosigned by Joaquim Galloway MD at 08/10/2024 11:44 AM EST documented in this [facility] Work Phone: 1(423) 345-696112-14-2024 Hospital course Narrative* Adriana Garnica PA-C - 08/22/2024 6:34 AM EST Discharge Diagnosis Aneurysm of ascending aorta without rupture (CMS-HCC) Issues Requiring Follow-Up Asc Ao aneurysm s/p replacement Postoperative arrhythmias including Afib Test Results Pending At Discharge Pending Labs Order Current Status Extra Urine Bai Tube Collected (08/21/24 1228) Urinalysis with Reflex Culture and Microscopic In process Hospital Course Karla (CharleyGita Cai is a 73yo female with known ascending [...] Time Provider Department Center 08/27/2024 12:00 PM [facility] [id number] NURSE [id number] Academic 10/07/2024 3:45 PM Joaquim Galloway MD [id number] [facility] Adriana Garnica PA-C documented in this [facility] Work Phone: 1(504) 352-183712-10-2024 History and physical note* JESSE Navarro - 08/18/2024 2:51 PM EST H&P reviewed. The patient was examined and there are no changes to the H&P. Source Note - Barry Orr RN - 08/14/2024 1:01 PM EST Karla Cai is a 73 y.o. female on day 3 of admission presenting with Aneurysm of ascending aorta without rupture ([facility]). No PMH of DM, A1C is 6.1%, [...] flare ups since 2019). Pt admitted to [facility] ICU s/p Asc Ao replacement (30mm [...] and LV; Surgeon: Flaquita Hendrix MD; Location: [facility] Cardiac Money Order Clerk; Service: Cardiovascular; Laterality: N/A; preop asc aorta replacement. [facility] Jun AT 11:00 AM PT WILL [...] Plan Aneurysm of ascending aorta without rupture ([facility]) Karla Cai is a 73 y.o. female presenting for elective outpatient Asc Ao replacement, LAAC,PPW. PMHx ascending aortic aneurysm, HTN, HLD, CKD, breast cancer s/p lumpectomy with XRT, diverticulitis (no flare ups since 2019). Pt admitted to [facility] ICU s/p Asc Ao replacement (30mm [...] Hannah PA-C - 07/29/2024 9:30 AM EST CPM/PAT Evaluation Name: Karla Cai (Karla Cai) /Age: 312/07/1950/73 y.o. In-Person Chief Complaint: Aneurysm of ascending aorta without rupture HPI Date of Consult: 07/29/24 Referring Provider: Dr. Galloway Surgery, Date, and Length: Ascending Aorta Replacement; Left Atrial Appendage Closure; 08/10/24; 330minutes Karla Cai is a 73 year-old female who presents to the [facility] for perioperative risk assessment prior to surgery. [...] History: Procedure Laterality Date BREAST LUMPECTOMY Right 2010 BREAST RECONSTRUCTION Right BREAST SURGERY Left reduction CARDIAC CATHETERIZATION N/A 06/09/2024 Procedure: Left Heart Cath with Coronary Angiography and LV; Surgeon: Flaquita Hendrix MD; Location: [facility] Cardiac Money Order Clerk; Service: Cardiovascular; Laterality: N/A; preop asc aorta replacement. [facility] Jun AT 11:00 AM PT WILL [...] Resource Strain: Low Risk (02/18/2024) Received from [facility] Overall Financial Resource Strain (CARDIA) Difficulty of Paying Living Expenses: Not hard at all Food Insecurity: No Food Insecurity (02/18/2024) Received from [facility] Hunger Vital Sign Worried About Running Out of Food in the Last Year: Never true Ran Out of Food in the Last Year: Never true Transportation Needs: No Transportation Needs (02/18/2024) Received from [facility] PRAPARE - Transportation Lack of Transportation (Medical): No Lack of Transportation (Non-Medical): No Physical Activity: Sufficiently Active (02/18/2024) Received from [facility] Exercise Vital Sign Days of Exercise per Week: 4 days Minutes of Exercise per Session: 60 min Stress: No Stress Concern Present (02/18/2024) Received from [facility] Salvadorean Pauline of Occupational Health - Occupational Stress Questionnaire Feeling of Stress : Only a little Social Connections: Socially Integrated (02/18/2024) Received from [facility] Social Connection and Isolation Panel [NHANES] Frequency of Communication with Friends and Family: More than three times a week Frequency of Social Gatherings with Friends and Family: More than three times a week Attends Restorationism Services: More than 4 times per year [...] Key Ram 07/30/2024 6:59 PM Dictation workstation: [id number] EKG 07/29/24 Sinus bradycardia at 59 BPM [...] in a speech recognition. documented in this encounterGreen Cross Hospital Work Phone: 1([phone]) 238-413412-08-2024 Hospital Discharge instructions* Discharge Instructions* Eh Mckeon, CONSULTING SOLUTION MANAGER-ENVIRONMENTAL SYSTEMS COORDINATOR - 08/16/2024 1:36 PM EST Images from [...] Do not drive in the front seat (Supervisor Roving or Passenger side) until you are cleared [...] questions or concerns please call the ICU ([phone]) to speak with the Nurse Practitioner or Physician Hot Dipper. Keep Your Move in the Tube!! and think of a T. Ihsan dinosaur! Please refer to the Move in [...] Call the Cardiac Surgery Nurse Practitioner/ Physician Hot Dipper ([phone]) if you gain 3 or more pounds [...] Oseguera RN - 08/22/2024 9:59 AM EST [facility]. They have 1-3 days to call You to schedule a visit. documented in this [facility] Work Phone: 1(729) 214-112412-06-2024 Consult note* Barry Orr RN - 08/14/2024 1:01 PM ESTAssociated Order(s): IP CONSULT TO CASH SALES AUDIT CLERK Karla Cai is a 73 y.o. female on day 3 of admission presenting with Aneurysm of ascending aorta without rupture ([facility]). No PMH of DM, A1C is 6.1%, BS well controlled. Pt not in need of DMeducation. Will sign off. Barry Orr RN documented in this encounterGreen Cross Hospital Work Phone: 1(264) 466-197912-06-2024 Nurse Note* Rob Masterson RN - 08/14/2024 [...] oncoming nurse know time documented in this encounterGreen [facility] Hospital Work Phone: 1(276) 746-432111-14-2024 History of Present illness Narrative* Cora Nielsen [...] PATIENT PRESENTS WITH AN IMPLANTABLE OR ATTACHED TAKE OFF WORKER: No RADIOLOGY DEPARTMENT: Mammography PERIPHERAL IV DATA: Not applicable SIGNED BY: Mary Hunt July 23, 2024 9:04 AM documented [facility]2024 NoteHNO ID: [id number] Author: CORA NIELSEN Mammo Tech Service: ? Author Type: Plug Machine Operator Type: Progress Notes Filed: 07/23/2024 09:04 Note [...] PATIENT PRESENTS WITH AN IMPLANTABLE OR ATTACHED TAKE OFF WORKER: No RADIOLOGY DEPARTMENT: Mammography PERIPHERAL IV DATA: Not applicable SIGNED BY: Mary Hunt July 23, 2024 9:04 [facility]10-16-2024 History of Present illness Narrative* Joaquim Galloway [...] and LV; Surgeon: Flaquita Hendrix MD; Location: [facility] Cardiac Money Order Clerk; Service: Cardiovascular; Laterality: N/A; preop asc [facility] WILL ARRIVE AT [...] Resource Strain: Low Risk (02/18/2024) Received from [facility] Overall Financial Resource Strain (CARDIA) Difficulty of Paying Living Expenses: Not hard at all Food Insecurity: No Food Insecurity (02/18/2024) Received from [facility] Hunger Vital Sign Worried About Running Out of Food in the Last Year: Never true Ran Out of Food in the Last Year: Never true Transportation Needs: No Transportation Needs (02/18/2024) Received from [facility] PRAPARE - Transportation Lack of Transportation (Medical): No Lack of Transportation (Non-Medical): No Physical Activity: Sufficiently Active (02/18/2024) Received from [facility] Exercise Vital Sign Days of Exercise per Week: 4 days Minutes of Exercise per Session: 60 min Stress: No Stress Concern Present (02/18/2024) Received from [facility] Salvadorean Pauline of Occupational Health - Occupational Stress Questionnaire Feeling of Stress : Only a little Social Connections: Socially Integrated (02/18/2024) Received from [facility] Social Connection and Isolation Panel [NHANES] Frequency of Communication with Friends and Family: More than three times a week Frequency of Social Gatherings with Friends and Family: More than three times a week Attends Restorationism Services: More than 4 times per year [...] Transthoracic Echo (TTE) Complete Result Date: 06/05/2024 [facility], [address] [place] [address], [address] [address] and TRANSTHORACIC ECHOCARDIOGRAM REPORT Patient Name: KARLA Hancock Physician: [id number] Rob Jones MD Study Date: 06/03/2024 Ordering Provider: [id number] JOAQUIM GALLOWAY MRN/PID: [id number] Fellow: Nurse: Date of /Age: 3 1950 / 73 years Networks Software Consultant: Joycelyn JIMENEZ Gender: F Additional Staff: Height: 175.26 cm Admit Date: Weight: 78.02 kg Admission Status: Outpatient BSA / BMI: 1.94 m2 / 25.40 kg/m2 Blood Pressure: 120/63 mmHgDepartment Location: [facility] Study Type: TRANSTHORACIC ECHO (TTE) COMPLETE Diagnosis/ICD: 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; Nonrheumatic aortic (valve) insufficiency- I35.1; Nonrheumatic mitral (valve) insufficiency-I34.0 Indication: Asc AO Dilatation CPT Code: Echo Complete w Full Doppler-23920 Patient History: Pertinent History: HTN, ASC AO [...] LA Area A2C: 14.0 cm2 LA Major Seward A4C: 5.4 cm LA Major Seward A2C: 5.1 cm LA Volume Index: 19.3 [...] cm AORTA: Asc Ao Diam 4.49 cm [id number] Rob Jones MD Electronically signed on 06/05/2024 [...] clip. The surgery will be performed at [facility] based on the complexity of the procedure and patient'spreference. In preparation for surgery, she will require a PAT visit. I am hopeful surgery can be scheduled for08/10/24 as the patient has requested that we delay surgery until after Thanksgi. Joaquim Galloway MD Cardiac Surgeon documented in this encounterGreen Cross Hospital Work Phone: 1([phone]) 719-352110-01-2024 Nurse Note* Mariella Moy RN - 06/09/2024 5:02 PM EDT ENVIRONMENTAL SYSTEMS COORDINATOR here to assess and speak with patient. [facility]10-01-[facility] Nurse Note* Mariella Moy RN - 06/09/2024 5:02 PM EDT ENVIRONMENTAL SYSTEMS COORDINATOR here to assess and speak with patient. [...] complaints from the patient. Charge nurse and ENVIRONMENTAL SYSTEMS COORDINATOR updated. Physician is in procedure at this [...] Moy RN - 06/09/2024 2:05 PM EDT ENVIRONMENTAL SYSTEMS COORDINATOR upated on BP with new order to bolus 500cc IVF. Same started. documented in this [facility] Work Phone: 1([phone]) 665-308210-01-2024 Nurse Note* Mariella Moy RN - 06/09/2024 4:40 PM EDT Meal ordered [facility] Work Phone: 1(171) 366-968610-01-2024 Nurse Note* Mariella Moy RN - 06/09/2024 4:22 PM EDT After patient had gone to the bathroom and was getting dressed to go home, the radial artery accesssite began to bleed profusely. Immediate pressure applied above the site and pressure band reapplied with 8cc of air. VS resumed. No complaints from the patient. Charge nurse and ENVIRONMENTAL SYSTEMS COORDINATOR updated. Physician is in procedure at this time. [facility] Work Phone: 1(752) 401-514310-01-2024 Nurse Note* Mariella Moy RN - 06/09/2024 4:09 PM EDT Patient ambulated with the bathroom with stand-by assistance. Voided. [facility] Work Phone: [phone]) 143-629610-01-2024 Nurse Note* Mariella Moy RN - 06/09/2024 4:08 PM EDT Home going instructions specific to procedure given. Easily arousable; responding appropriately. Vs+/- 20% of pre procedure status. Significant complications are absent. Ambulates without dizziness/age appropriate activity, pulse ox above or equal to 92% on room air/ordered oxygen treatment. Care Plan Complete. Discharge to home accompanied by (family). Discharged via wheelchair. [facility] Work Phone: 1(424) 875-732310-01-2024 Nurse Note* Mariella Moy RN - 06/09/2024 2:05 PM EDT ENVIRONMENTAL SYSTEMS COORDINATOR upated on BP with new order to bolus 500cc IVF. Same started. [facility] Work Phone: 1([phone]) 444-946610-01-2024 Hospital Discharge instructions* Discharge Instructions* Anita Hernandez Raphael, EDWARD-ENVIRONMENTAL SYSTEMS COORDINATOR - 06/09/2024 1:45 PM EDT Images from [...] for any reason without talking to your electronic science teacher first. If any of these were prescribed, [...] have any concerns, you may contact the Money Order Clerk or if any of these symptoms become excessive, contact your electronic science teacher or go to the emergency room. OTHER [...] DO NOT have an appointment with your electronic science teacher within 2-4 weeks following your procedure, please contact their office. documented in this [facility] Work Phone: 1(954) 699-544110-01-2024 History and physical note* JESSE Callaway - 06/09/2024 11:58 AM EDT History Of Present Illness Karla Cai is a 73 y.o. female presenting with ascending aortic aneuyrsm, here for [facility] as part of pre-op workup for aortic [...] 20 mg tablet 1 tablet, oral, Daily (0630) spironolactone (Aldactone) 50 mg tablet 1 tablet, [...] LDL, VLDL, TRIG, NHDL in the last 25478 hours. Cardiac No lab exists for component: CK, CKMBP Hemoglobin A1C: Recent Labs 05/29/24 1124 02/24/24 0722 08/29/23 0847 08/29/22 0737 08/25/21 0841 HGBA1C 5.9* 6.1* 6.0* 6.0* 6.1* TSH/ Free T4: No results for input(s): TSH, FREET4 in the last 54995 hours. Iron: No results for input(s): FERRITIN, TIBC, IRONSAT, BNP in the last 17364 hours. Coag: Results from last 7 days Lab Units 06/03/24 0930 INR 1.0 ABO: No results found for: ABO Past Cardiology Tests (Last 3 Years): EKG: No results for input(s): ATRRATE, VENTRATE, PRINT, QRSDUR, QTCFRED, QTCCALCB in the last 72399 hours.No results found for this or any previous visit (from the past 4464 hour(s)). Echo: Echocardiogram: Transthoracic Echo (TTE) Complete [facility] [address] [place] [address], [address] [address] and TRANSTHORACIC ECHOCARDIOGRAM REPORT Patient Name: KARLA Hancock Physician: [id number] Rob Jones MD Study Date: 06/03/2024 Ordering Provider: [id number] JOAQUIM GALLOWAY MRN/PID: [id number] Fellow: Nurse: Date of /Age: 3 1950 / 73 years Networks Software Consultant: Yenny Vyas RDCS Gender: F Additional Staff: Height: 175.26 cm Admit Date: Weight: 78.02 kg Admission Status: Outpatient BSA / BMI: 1.94 m2 / 25.40 kg/m2 Blood Pressure: 120/63 mmHg Department Location: [facility] Study Type: TRANSTHORACIC ECHO (TTE) COMPLETE Diagnosis/ICD: Ascending aorta dilatation-I77.810; Nonrheumatic aortic (valve) insufficiency-I35.1; Nonrheumatic mitral (valve) insufficiency-I34.0 Indication: Asc AO Dilatation CPT Code: Echo Complete w Full Doppler-15758 Patient History: Pertinent History: HTN, ASC AO [...] LA Area A2C: 14.0 cm2 LA Major [place]ard A4C: 5.4 cm LA Major [place] A2C: 5.1 cm LA Volume Index: 19.3 [...] cm AORTA: Asc Ao Diam 4.49 cm [id number] Rob Jones MD Electronically signed on 06/05/2024 [...] Nonrheumatic aortic valve insufficiency #Ascending Aortic Aneurysm -[facility] with Dr. Yao as part of pre-op workup for aortic aneurysm surgery. -ASA 324 mg PO pre-procedure MEAT SERVICE TEAM MEMBER discussed with Dr. Hendrix regarding plan of care/ discharge plan I spent 30 minutes in the professional and overall care of this patient. JESSE Callaway [facility] Work Phone: 1(144) 999-884410-01-2024 History and physical note* JESSE Callaway - 06/09/2024 11:58 AM EDT History Of Present Illness Krala Cai is a 73 y.o. female presenting with ascending aortic aneuyrsm, here for [facility] as part of pre-op workup for aortic [...] 300 mg tablet 1 tablet, oral, Daily (0630) metoprolol succinate XL (Toprol-XL) 100 mg 24 hr tablet 1 tablet, oral, Daily (0630) multivitamin tablet 1 tablet, oral, Daily mv-min/FA/vit K/lutein/zeaxant (PRESERVISION AREDS 2 PLUS MV ORAL) 1 tablet, oral, Daily olopatadine (Patanol) 0.1 % ophthalmic solution 1 drop, Both Eyes, 2 times daily pravastatin (Pravachol) 20 mg tablet 1 tablet, oral, Daily (629) spironolactone (Aldactone) 50 mg tablet 1 tablet, [...] LDL, VLDL, TRIG, NHDL in the last 53389 hours. Cardiac No lab exists for component: CK, CKMBP Hemoglobin A1C: Recent Labs 05/29/24 1124 02/24/24 0722 08/29/23 0847 08/29/22 0737 08/25/21 0841 HGBA1C 5.9* 6.1* 6.0* 6.0* 6.1* TSH/ Free T4: No results for input(s): TSH, FREET4 in the last 50541 hours. Iron: No results for input(s): FERRITIN, TIBC, IRONSAT, BNP in the last 82817 hours. Coag: Results from last 7 days Lab Units 06/03/24 0930 INR 1.0 ABO: No results found for: ABO Past Cardiology Tests (Last 3 Years): EKG: No results for input(s): ATRRATE, VENTRATE, PRINT, QRSDUR, QTCFRED, QTCCALCB in the last 92143 hours.No results found for this or any previous visit (from the past 4464 hour(s)). Echo: Echocardiogram: Transthoracic Echo (TTE) Complete 06/03/2024 [facility] [address] [place] [address], [address] [address] and TRANSTHORACIC ECHOCARDIOGRAM REPORT Patient Name: KARLA Hancock Physician: [id number] Rob Jones MD Study Date: 06/03/2024 Ordering Provider: [id number] JOAQUIM GALLOWAY MRN/PID: [id number] Fellow: Nurse: Date of /Age: 3 1950 / 73 years Networks Software Consultant: Yenny Vyas [facility] Gender: F Additional Staff: Height: 175.26 cm Admit Date: Weight: 78.02 kg Admission Status: Outpatient BSA / BMI: 1.94 m2 / 25.40 kg/m2 Blood Pressure: 120/63 mmHg Department Location: [facility] Study Type: TRANSTHORACIC ECHO (TTE) COMPLETE Diagnosis/ICD: Ascending aorta dilatation-I77.810; Nonrheumatic aortic (valve) insufficiency-I35.1; Nonrheumatic mitral (valve) insufficiency-I34.0 Indication: Asc AO Dilatation CPT Code: Echo Complete w Full Doppler-[id number] Patient History: Pertinent History: HTN, ASC AO [...] LA Area A2C: 14.0 cm2 LA Major Seward A4C: 5.4 cm LA Major Seward A2C: 5.1 cm LA Volume Index: 19.3 [...] cm AORTA: Asc Ao Diam 4.49 cm [id number] Rob Jones MD Electronically signed on 06/05/2024 [...] Nonrheumatic aortic valve insufficiency #Ascending Aortic Aneurysm -[facility] with Dr. Yao as part of pre-op workup for aortic aneurysm surgery. -ASA 324 mg PO pre-procedure MEAT SERV[employer] TEAM MEMBER discussed with Dr. Hendrix regarding plan of care/ discharge plan I spent 30 minutes in the professional and overall care of this patient. JESSE Callaway documented in this [facility] Work Phone: 1(326) 700-189409-20-2024 NoteHNO ID: [id number] Author: JAE BELCHER MD Service: ? Author Type: Physician Type: Progress Notes Filed: 05/29/2024 14:00 Note Text: This note was created using Formlabsriter. Subjective Patient presents with: F/U 3 Month [...] Her vascular specialist referred her to in [place] for consideration of thoracic aneurysm repair. Review [...] to each eye twice daily as needed uz-hnx-dwign-calcium carb-K1 (WOMEN'S 50 PLUS MULTIVITAMIN) 400 mcg-500 [...] 441.2, ICD10: I71.21 - Evaluation ongoing at [facility]. Jae Belcher [facility]09-20-2024 History of Present illness Narrative* Jae Belcher [...] Her vascular specialist referred her to in [place] for consideration of thoracic aneurysm repair. Review [...] to each eye twice daily as needed vl-jue-hdqdf-calcium carb-K1 (WOMEN'S 50 PLUS MULTIVITAMIN) 400 mcg-500 [...] 441.2, ICD10: I71.21 - Evaluation ongoing at [facility]. Jae Belcher MD documented [facility] History of Present illness Narrative* Joaquim Galloway [...] Resource Strain: Low Risk (02/18/2024) [facility] from [facility] Overall Financial Resource Strain (CARDIA) Difficulty of Paying Living Expenses: Not hard at all Food Insecurity: No Food Insecurity (02/18/2024) Received from [facility] Hunger Vital Sign Worried About Running Out of Food in the Last Year: Never true Ran Out of Food in the Last Year: Never true Transportation Needs: No Transportation Needs (02/18/2024) Received from [facility] PRAPARE - Transportation Lack of Transportation (Medical): No Lack of Transportation (Non-Medical): No Physical Activity: Sufficiently Active (02/18/2024) Received from [facility] Exercise Vital Sign Days of Exercise per Week: 4 days Minutes of Exercise per Session: 60 min Stress: No Stress Concern Present (02/18/2024) Received from [facility]ational [facility] - Occupational Stress Questionnaire Feeling of Stress : Only a little Social Connections: Socially Integrated (02/18/2024) Received from [facility] Social Connection and Isolation Panel [NHANES] Frequency of Communication with Friends and Family: More than three times a week Frequency of Social Gatherings with Friends and Family: More than three times a week Attends Restorationism Services: More than 4 times per year [...] previous visit (from the past 4464 hour(s)). No results found for: WBC, HGB, [...] Galloway MD Cardiac Surgery [facility] Work Phone: 1(253) 149-320309-16-2024 Telephone encounter Note* Telephone Encounter - Chad Delgado MA - 05/25/2024 1:44 PM EDT Patient active MyChart. Patient notified via [employer] message. Chad Delgado MA [facility]09-16-2024 Miscellaneous Notes* Telephone Encounter - Chad Delgado MA - 05/25/2024 1:44 PM EDT Patient active MyChart. Patient notified via [employer] message. Chad Delgado MA * Telephone Encounter [...] follow-up with primary care. documented in this encounterPremier Health09-14-2024 Telephone encounter Note * Telephone Encounter - Elizabeth Dash MA - 05/23/2024 3:30 PM EDT Left message for patient to return call. Elizabeth Dash MA [facility]09-14-2024 Telephone encounter Note* Telephone Encounter - Claribel Hooper APRN.CNP - 05/23/2024 3:17 PM EDT Please call patient and let her know she is on the correct antibiotic according to urine culture. Please let her know if her symptoms are not improving she needs to follow-up with primary care. [facility] Work Phone: [phone]) 230-510209-11-2024 NoteHNO ID: [id number] Author: TORRI FERRER PA Service: ? Author Type: Physician Hot Dipper Type: Progress Notes Filed: 05/20/2024 11:40 Note Text: This note was created using Islet Sciencester. Subjective Karla Cai is a 73 year [...] 1 tablet by mouth once daily. Per [facility] VITAMIN A ORAL Take 400 [...] is warm and dry. (more content not included)...[facility]09-11-2024 History of Present illness Narrative* Torri Ferrer PA - 05/20/2024 11:38 AM EDT This note was created using m-spatial. Subjective Karla Cai is a 73 year [...] valve insufficiency 08/26/2023: Osteopenia PAST SURGICAL HISTORY 1987: BIOPSY BREAST OPEN INCISIONAL Comment: Left Breast [...] ER evaluation. WILY Guillen documented [place] encounterStephen [place] [address]-30-2024 Telephone encounter Note * Telephone Encounter - [...] Roca MA May 08, 2024 10:45 AM [facility]08-30-2024 Miscellaneous Notes* Telephone Encounter - Teodoro Roca [...] 08, 2024 10:45 AM documented in this encounterPremier Health07-16-2024 Telephone encounter Note * Telephone Encounter - Teodoro Roca MA - 03/24/2024 10:08 AM EDT Patient notified, verbalized understanding. [facility]07-16-2024 Miscellaneous Notes* Telephone Encounter - Teodoro Roca [...] comment. Within normal limits. documented in this encounterPremier Health07-15-2024 Telephone encounter Note * Telephone Encounter - Jae Belcher MD - 03/23/2024 8:06 PM EDT Kidney cysts are common, benign, and not expected to be an issue. These have been noted on CT [place] early as 2018. [facility]07-15-2024 Telephone encounter Note* Telephone Encounter - Odilia Cox LPN - 03/23/2024 8:40 AM EDT Patient returned call and went over ultrasound results from Dr Belcher with understanding. Patient concerned report says lesions in both kidneys one 2.0 cm and other 6.1 cm is that going to be a problem down the road? [facility]07-15-2024 Telephone encounter Note* Telephone Encounter - Mandie Recinos LPN - 03/23/2024 8:14 AM EDT Left a message for pt to call the office and ask to speak to a nurse. Mandie Recinos LPN [facility]07-15-2024 Telephone encounter Note* Telephone Encounter - Mandie Recinos LPN - 03/23/2024 8:13 AM EDT ----- Message from Jae Belcher MD sent at 03/21/2024 10:50 AM EDT ----- See comment. Within normal limits. [facility]07-03-2024 NoteHNO ID: [id number] Author: ABDIFATAH AVELAR RN Service: ? Author Type: Registered Nurse Type: Progress Notes Filed: 03/11/2024 13:34 Note Text: DIABETES CARE AND EDUCATION VISIT Location: [place] Type of visit: In person individual PATIENT'S [...] Cai DATE: March 11, 2024 TIME: 12:45 [facility]07-03-2024 History of Present illness Narrative* Abdifatah Avelar RN - 03/11/2024 12:45 PM EDT DIABETES CARE AND EDUCATION VISIT Location: [place] Type of visit: In person individual PATIENT'S [...] 2024 TIME: 12:45 PM documented in this encounterPremier Health06-18-2024 NoteHNO ID: [id number] Author: JAE BELCHER MD Service: ? Author Type: Physician Type: Progress Notes Filed: 02/26/2024 00:07 Note Text: This note was created using m-spatial. Subjective Karla Cai is a 73 year [...] complication, without long-term current use of insulin ([facility]) - ICD9: 250.00, ICD10: E11.9 (primary diagnosis) - New diagnosis - Discussed diabetic education issues of diabetes complications and monitoring required, medication-specific side effects and monitoring. - Shared Medical Decision Making was done: Medication: Options include Jardiance, Ozempic, metformin. 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 Risks: Possible side effects were discussed including [...] 30 or more, all for discussion. Jae Belcher, [facility]06-18-2024 History of Present illness Narrative* Jae Belcher MD - 02/25/2024 9:42 AM EDT This note was created using NoteWriter. Subjective Karla Cai is a 73 year [...] and CV or renal risk in the longwall headgate operator. Risks: Possible side effects were discussed including [...] discussion. Jae Belcher MD documented in this encounterPremier Health06-10-2024 Telephone encounter Note * Telephone Encounter - Joanie Garcia - 02/17/2024 4:25 PM EDT Pt got notification on MyChart she is due for Mammmogram although it is not until July. Will need order placed. [facility] Work Phone: [phone]) 470-240306-10-2024 Miscellaneous Notes* Telephone Encounter - Joanie Garcia - 02/17/2024 4:25 PM EDT Pt got notification on MyChart she is due for Mammmogram although it is not until July. Will need order placed. documented in this encounterPremier Health04-25-2024 Instructions* Patient Instructions* Amanda Fleming - 01/02/2024 2:14 PM EDT Continue with firm sole shoes, ie holm or hoka with carbon fiber inlay Could consider steroid injection Could consider surgery. documented in this encounterPremier Health04-25-2024 NoteHNO ID: [id number] Author: AMANDA FLEMING, ? Service: ? Author [...] 1 tablet by mouth once daily. Per [facility] VITAMIN A ORAL Take 400 [...] goiter. NEURO: negative Physic (more content not included)...[facility]04-25-2024 History of Present illness Narrative* Amanda [...] subsides. Amanda Fleming DPM Podiatry [address] [place] [address] Dept: [phone] Dept * Zora Comer RN - 01/02/2024 1:36 PM EDT AMB ROOMING INTAKE FLOWSHEET DATA Pain Pain [...] it may be fractured. documented in this encounterPremier Health04-25-2024 NoteHNO ID: [id number] Author: ZORA COMER RN Service: ? Author Type: Registered Nurse Type: Progress Notes Filed: 01/02/2024 22:50 Note Text: AMB ROOMING INTAKE FLOWSHEET DATA Pain Pain [...] and blue. Patient concerned it may be fractured.[facility]04-25-2024 History of Present illness Narrative* Kirby Arias RT(R) - 01/02/2024 1:10 PM EDT Radiology Service [...] PATIENT PRESENTS WITH AN IMPLANTABLE OR ATTACHED TAKE OFF WORKER: No RADIOLOGY DEPARTMENT: General X-ray: Exam(s) Completed: Lower Extremity X- Ray(s): Foot, Bilateral and Wt. Bearing PERIPHERAL IV DATA: Not applicable SIGNED BY: LALIT Chua) January 02, 2024 1:11 PM documented in this encounterPremier Health04-25-2024 NoteHNO ID: [id number] Author: KIRBY ARIAS RT(R) Service: Radiology Author [...] PATIENT PRESENTS WITH AN IMPLANTABLE OR ATTACHED TAKE OFF WORKER: No RADIOLOGY DEPARTMENT: General X-ray: Exam(s) Completed: Lower Extremity X-Ray(s): Foot, Bilateral and Wt. Bearing PERIPHERAL IV DATA: Not applicable SIGNED BY: RT Harshil(R) January 02, 2024 1:11 [facility]04-11-2024 Miscellaneous Notes* Telephone Encounter - Anne Dorsey [...] function improved with blood wok 11/15/2023. Sonia Juares, RN documented in this encounterPremier Health04-02-2024 Instructions* Patient Instructions* Mendoza Puente RD - [...] dessert, and unsweetened beverages. documented in this encounterPremier Health04-02-2024 NoteEducation (NUTRMM) KARLA CAI ([id number]) 1950 F Date Time Provider Department 12/10/23 11:00 AM MENDOZA PUENTE NUTR Reason for Visit: Nutrition Assessment [1591] Patient Education [91] Primary Visit Diagnosis:Impaired fasting glucose [R73.01] Order(s):CONSULT TO NUTRITION THERAPY [9020] Order #: [id number]: 4 During your visit today, we recorded [...] for Encounter Date Provider Department Center 12/10/2023 [id number] PUENTE [facility] Encounter Status:Closed by MENDOZA PUENTE on 12/10/23[facility] 12-10-2023 NoteHNO ID: [id number] Author: MENDOZA PUENTE RD Service: ? Author [...] History: Breakfast - 8 am coffee with barbadian yogurt and berries and piece of toast [...] Foods, and [address] (more content not included)...[facility]04-02-2024 History of Present illness Narrative* Mendoza Puente, FAN - 12/10/2023 10:59 AM EDT Nutrition Therapy [...] History: Breakfast - 8 am coffee with barbadian yogurt and berries and piece of toast [...] 2023 TIME: 10:59 AM documented in this encounterPremier Health03-16-2024 Miscellaneous Notes* Telephone Encounter - Jae Belcher [...] 02/25/2024. Faiza Morgan LPN documented in this encounterPremier Health03-04-2024 Miscellaneous Notes* Telephone Encounter - Faiza Morgan [...] you. Faiza Morgan LPN. documented in this encounterPremier Health02-19-2024 Miscellaneous Notes* Telephone Encounter - Bernie Prather [...] advise, Skyla Hodgson RN documented in this encounterPremier Health02-08-2024 Evaluation note* Diagnosis Chronic renal impairment, stage 3a (HCC)- Primary documented in this encounter [facility]11-14-2023 Miscellaneous Notes* Letter - Coordinator, Mammography - 07/23/2023 10:32 AM EST July 24, 2023 PID: [id number] Karla Cai [address] [place] [address] [place] [address] Dear Ms. Cai, We are pleased to [...] report will be kept on file at [facility] as part of your permanent medical record and are available for your continuing care. Thank you for allowing us to help in meeting your health care needs. Sincerely, Dr. Newman Interpreting Radiologist [facility] (Normal over 40) documented in this encounterPremier Health11-14-2023 History of Present illness Narrative* Anderson Champion [...] 23, 2023 8:57 AM documented in this encounterPremier Health09-05-2023 Miscellaneous Notes* Telephone Encounter - Faiza Morgan [...] you. Faiza Morgan LPN documented in this encounterPremier Health08-21-2023 Miscellaneous Notes* Addendum Note - Savanna Do [...] you. Faiza Morgan LPN documented in this encounterPremier Health06-27-2023 Miscellaneous Notes* Telephone Encounter - Teodoro Roca Ma - 03/05/2023 2:39 PM EDT [place]: 08/22/2022 Last refill: 08/22/2022 QTY: 30 Refills: 1 documented in this encounterPremier Health03-07-2023 Miscellaneous Notes* Telephone Encounter - Faiza Morgan [...] you. Faiza Morgan LPN documented in this encounterPremier Health12-20-2022 History of Present illness Narrative* Rosalina Nolan LPN - 08/28/2022 1:56 PM EST Patient presents for COVID vaccine. Denies any problems at this time. Tolerated injection well. Rosalina Nolan LPN documented in this encounterPremier Health12-14-2022 Instructions* Patient Instructions* Savanna Do APRN.TYRA - [...] review all the medicines you take, even tflj-wqo-vdbtxes medicines. As you get older, the way [...] have certain medical conditions. documented in this encounterPremier Health12-14-2022 History of Present illness Narrative* Savanna Do APRN.CNP - 08/22/2022 6:01 PM EST Karla Cai is a 71 year old female here for a Medicare Subsequent Annual Wellness Visit Health Risk Assessment In general, health is: Very good Concerns with balance:Not at all Concerns with teeth or dentures:going to the dentist Concerns with sexual function:Not at all [place] anxious, stressed, angry, irritable, lonely, isolated, or [...] Fleming-podiatry Dr. Moon-general surgeon Outside specialists seen: [facility], [facility] [place]-Dr. Leigh, Medical/Family history review Reviewed and updated [...] A1C Savanna Do APRN.CNP documented in this encounterPremier Health11-30-2022 Miscellaneous Notes* Telephone Encounter - Faiza Korey Morgan LPN - 08/08/2022 2:09 PM EST [...] you. Faiza Morgan LPN documented in this encounterPremier Health11-15-2022 History of Present illness Narrative* Jennifer LuongEDWARD.ENVIRONMENTAL SYSTEMS COORDINATOR - 07/24/2022 8:37 AM EST Chief Complaint [...] high nuclear grade. Necrosis was noted. ER--29%; NJ 0% and HER2 3+. The patient subsequently [...] as needed. Pt. will follow up with [facility] for yearly CBE/mammogram. - Pt. aware to call office with any questions/concerns. The patient indicates understanding of these issues and agrees with the plan. All documentation from previous visit of 07/21/21-Dr. Juarez/myself was copied and pasted, documentation has been reviewed and edited as necessary for today's visit. Jennifer Luong APRN.ENVIRONMENTAL SYSTEMS COORDINATOR documented in this encounterPremier Health08-30-2022 Miscellaneous Notes* Telephone Encounter - Mendoza Nam LPN - 05/08/2022 2:23 PM EDT Patient phones requesting refills as follows: Requested Prescriptions Pending Prescriptions Disp Refills irbesartan (AVAPRO) 300 mg tablet 90 tablet 3 Sig: Take 1 tablet by mouth once daily. [place] 08/22/21 No upcoming appointment scheduled. Please review and advise. Mendoza Nam LPN documented in this encounterPremier Health08-30-2022 Miscellaneous Notes* Telephone Encounter - Mendoza Nam LPN - 05/08/2022 2:12 PM EDT Patient phones requesting refills as follows: Requested Prescriptions Pending Prescriptions Disp Refills metoprolol succinate ER (TOPROL XL) 100 mg 90 tablet 3 Sig: Take 1 tablet by mouth once daily. [place] 08/22/21 No upcoming office visit scheduled. Please review and advise. Mendoza Nam LPN documented in this encounterPremier Health11-18-2019 History of Past illness Narrative* Problem Noted Date Diagnosed Date Resolved Date Diverticulosis 07/27/2019 08/26/2023 History of colonoscopy with polypectomy 07/28/2015 08/26/2023 Bunion of great toe of left foot 07/18/2013 07/27/2014 Symptomatic menopausal or fe male climacteric states 07/25/2011 08/26/2023 Eczematous dermatitis of eyelid 07/26/2009 08/22/2021 documented as of this encounter (statuses as of 10/17/2023) [facility]11-18-[facility] History of Past illness Narrative* Problem Noted Date Diagnosed Date Resolved Date Diverticulosis 07/27/2019 08/26/2023 History of colonoscopy with polypectomy 07/28/2015 08/26/2023 Bunion of great toe of left foot 07/18/2013 07/27/2014 Symptomatic menopausal or fe male climacteric states 07/25/2011 08/26/2023 Eczematous dermatitis of eyelid 07/26/2009 08/22/2021 documented as of this encounter (statuses as of 10/28/2023) [facility]-18-[facility] History of Past illness Narrative* Problem Noted Date Diagnosed Date Resolved Date Diverticulosis 07/27/2019 08/26/2023 History of colonoscopy with polypectomy 07/28/2015 08/26/2023 Bunion of great toe of left foot 07/18/2013 07/27/2014 Symptomatic menopausal or fe male climacteric states 07/25/2011 08/26/2023 Eczematous dermatitis of eyelid 07/26/2009 08/22/2021 documented as of this encounter (statuses as of 11/12/2023) [facility] History of Past illness Narrative* Problem Noted Date Diagnosed Date Resolved Date Diverticulosis 07/27/2019 08/26/2023 History of colonoscopy with polypectomy 07/28/2015 08/26/2023 Bunion of great toe of left foot 07/18/2013 07/27/2014 Symptomatic menopausal or fe male climacteric states 07/25/2011 08/26/2023 Eczematous dermatitis of eyelid 07/26/2009 08/22/2021 documented as of this encounter (statuses as of 11/25/2023) [facility] History of Past illness Narrative* Problem Noted Date Diagnosed Date Resolved Date Diverticulosis 07/27/2019 08/26/2023 History of colonoscopy with polypectomy 07/28/2015 08/26/2023 Bunion of great toe of left foot 07/18/2013 07/27/2014 Symptomatic menopausal or fe male climacteric states 07/25/2011 08/26/2023 Eczematous dermatitis of eyelid 07/26/2009 08/22/2021 documented as of this encounter (statuses as of 12/10/2023) [facility] History of Past illness Narrative* Problem Noted Date Diagnosed Date Resolved Date Diverticulosis 07/27/2019 08/26/2023 History of colonoscopy with polypectomy 07/28/2015 08/26/2023 Bunion of great toe of left foot 07/18/2013 07/27/2014 Symptomatic menopausal or fe male climacteric states 07/25/2011 08/26/2023 Eczematous dermatitis of eyelid 07/26/2009 08/22/2021 documented as of this encounter (statuses as of 12/19/2023) [facility] History of Past illness Narrative* Problem Noted Date Resolved Date Bunion of great toe of left foot 07/18/2013 07/27/2014 Eczematous dermatitis of eyelid 07/26/2009 08/22/2021 documented as of this encounter (statuses as of 05/09/2022) [facility] History of Past illness Narrative* Problem Noted Date Resolved Date Bunion of great toe of left foot 07/18/2013 07/27/2014 Eczematous dermatitis of eyelid 07/26/2009 08/22/2021 documented as of this encounter (statuses as of 05/09/2022) [facility] History of Past illness Narrative* Problem Noted Date Resolved Date Bunion of great toe of left foot 07/18/2013 07/27/2014 Eczematous dermatitis of eyelid 07/26/2009 08/22/2021 documented as of this encounter (statuses as of 07/24/2022) [facility] History of Past illness Narrative* Problem Noted Date Resolved Date Bunion of great toe of left foot 07/18/2013 07/27/2014 Eczematous dermatitis of eyelid 07/26/2009 08/22/2021 documented as of this encounter (statuses as of 08/08/2022) [facility] History of Past illness Narrative* Problem Noted Date Resolved Date Bunion of great toe of left foot 07/18/2013 07/27/2014 Eczematous dermatitis of eyelid 07/26/2009 08/22/2021 documented as of this encounter (statuses as of 08/22/2022) [facility] History of Past illness Narrative* Problem Noted Date Resolved Date Bunion of great toe of left foot 07/18/2013 07/27/2014 Eczematous dermatitis of eyelid 07/26/2009 08/22/2021 documented as of this encounter (statuses as of 08/28/2022) [facility] History of Past illness Narrative* Problem Noted Date Resolved Date Bunion of great toe of left foot 07/18/2013 07/27/2014 Eczematous dermatitis of eyelid 07/26/2009 08/22/2021 documented as of this encounter (statuses as of 11/13/2022) [address]09-[address] History of Past illness Narrative* Problem Noted Date Resolved Date Bunion of great toe of left foot 07/18/2013 07/27/2014 Eczematous dermatitis of eyelid 07/26/2009 08/22/2021 documented as of this encounter (statuses as of 03/06/2023) [address]09-[address] History of Past illness Narrative* Problem Noted Date Diagnosed Date Resolved Date Bunion of great toe of left foot 07/18/2013 07/27/2014 Eczematous dermatitis of eyelid 07/26/2009 08/22/2021 documented as of this encounter (statuses as of 04/29/2023) [facility] History of [facility] illness Narrative* Problem Noted Date Diagnosed Date Resolved Date Bunion of great toe of left foot 07/18/2013 07/27/2014 Eczematous dermatitis of eyelid 07/26/2009 08/22/2021 documented as of this encounter (statuses as of 05/15/2023) [facility] History of Past illness Narrative* Problem Noted Date Diagnosed Date Resolved Date Bunion of great toe of left foot 07/18/2013 07/27/2014 Eczematous dermatitis of eyelid 07/26/2009 08/22/2021 documented as of this encounter (statuses as of 07/24/2023) [facility] History of Past illness Narrative* Problem Noted Date Diagnosed Date Resolved Date Bunion of great toe of left foot 07/18/2013 07/27/2014 Eczematous dermatitis of eyelid 07/26/2009 08/22/2021 documented as of this encounter (statuses as of 07/26/2023) [facility] Diagnosis 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 documented in this encounter [facility]* Diagnosis Onset Date Resolution Status Essential hypertension chron ic Thoracic aortic aneurysm without rupture [facility] Work Phone: Evaluation note* Diagnosis Medicare annual wellness visit, subsequent- Primary Routine general medical examination at a health care facility Essential hypertension, benign Impaired fasting glucose documented in this encounter [facility]* Diagnosis Need for vaccination- Primary Need for prophylactic vaccination and inoculation against unspecified single disease [facility] Diagnosis Onset Date Resolution Status Mitral valve insufficiency a cute Essential hypertension chron ic Thoracic aortic aneurysm without rupture [facility] Work Phone: Evaluation note* Diagnosis Encounter for screening mammogram for malignant neoplasm of breast Other screening mammogram documented [facility] encounter [facility]* Diagnosis Dysuria- Primary documented in this encounter [facility]* Diagnosis Impaired fasting glucose- Primary [facility] in [facility]* Diagnosis Impaired fasting glucose- Primary [facility] in [facility]* Diagnosis Hallux rigidus of both feet- Primary Contusion of lesser toe of left foot without damage to nail, initial encounter [facility] this [facility]* Diagnosis Pain Generalized pain [facility]* Diagnosis Screening mammogram for breast cancer- Primary [facility]* Diagnosis Controlled type 2 diabetes mellitus without complication, without long-term current use of insulin (HCC)- Primary Chronic renal impairment, stage 3a (HCC) [facility]* Diagnosis Prediabetes- Primary Other abnormal glucose [facility]* Diagnosis Chronic renal impairment, stage 3a (HCC) [facility]* Diagnosis Essential hypertension, benign- Primary Impaired fasting glucose Overweight (BMI 25.0-29.9) Overweight Encounter for lipid screening for cardiovascular disease Screening for lipoid disorders Aortic heart murmur Aortic valve disorders Dilated aortic root (HCC) Thoracic aortic 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, unspecified laterality Urinary frequency- Primary [facility] Diagnosis Essential hypertension, benign- Primary Impaired [...] without rupture (HCC) [facility]* Diagnosis Ascending aorta dilation (CMS-HCC)- Primary Thoracic aneurysm without mention of rupture Nonrheumatic mitral valve regurgitation Nonrheumatic tricuspid valve regurgitation Nonrheumatic aortic valve insufficiency Aneurysm of the ascending aorta, without rupture (CMS-HCC) Ascending aorta dilation (CMS-HCC) Thoracic aneurysm without mention of rupture Nonrheumatic mitral valve regurgitation Nonrheumatic tricuspid valve regurgitation Nonrheumatic aortic valve insufficiency documented in this encounter [facility] Work Phone: Evaluation note* Diagnosis Aneurysm of the ascending aorta, without rupture (CMS-HCC) Aneurysm of ascending aorta without rupture (CMS-HCC)- Primary Aneurysm of ascending aorta without rupture (CMS-HCC) documented in this encounter [facility] Work Phone: Evaluation note* Diagnosis Essential hypertension, benign- Primary Impaired fasting glucose Overweight (BMI 25.0-29.9) Overweight Encounter for lipid screening for cardiovascular disease Screening for lipoid disorders Aortic heart murmur Aortic valve disorders Dilated aortic root (HCC) Thoracic aortic 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, unspecified laterality Screening mammogram for breast cancer [facility]* Diagnosis Aneurysm of ascending aorta without rupture (CMS-HCC)- Primary Aneurysm of ascending aorta without rupture (CMS-HCC) Aneurysm of ascending aorta without rupture (CMS-HCC) documented in this encounter [facility] Work Phone: Evaluation note* Diagnosis Aneurysm of ascending aorta without rupture (CMS-HCC)- Primary Aneurysm of ascending aorta without rupture (CMS-HCC) Postprocedural hypotension History of aortic arch replacement S/P ascending aortic replacement Blood vessel replaced by other means Postoperative atrial fibrillation (Multi) Acute respiratory distress syndrome (ARDS) (Multi) documented in this encounter [facility] Work Phone: Evaluation note* Diagnosis Ascending aortic aneurysm, unspecified whether ruptured (CMS-HCC) documented in this encounter [facility] Work Phone: Evaluation note* Diagnosis Ascending aortic aneurysm, unspecified whether ruptured (CMS-HCC) documented in this encounter [facility] Work Phone: Evaluation note* Diagnosis Ascending aorta dilation (CMS-HCC) Thoracic aneurysm without mention of rupture Nonrheumatic mitral valve regurgitation Nonrheumatic tricuspid valve regurgitation Nonrheumatic aortic valve insufficiency Shortness of breath documented in this encounter [facility] Work Phone: Evaluation note* Diagnosis Ascending [...] aortic valve insufficiency documented in this encounter [facility] Work Phone: Evaluation note* Diagnosis Essential [...] blood loss (chronic) [facility]* Diagnosis Essential hypertension, benign- Primary Impaired fasting glucose Overweight (BMI 25.0-29.9) Overweight Encounter for lipid screening for cardiovascular disease Screening for lipoid disorders Aortic heart murmur Aortic valve disorders Dilated aortic root (HCC) Thoracic aortic 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, unspecified laterality Elevated LDL cholesterol level Pure hypercholesterolemia documented [facility]* Diagnosis Aneurysm of ascending aorta without rupture (CMS-HCC)- Primary Aneurysm of ascending aorta without rupture (CMS-HCC) Postprocedural hypotension History of aortic arch replacement S/P ascending aortic replacement Blood vessel replaced by other means Postoperative atrial fibrillation (Multi) Acute respiratory distress syndrome (ARDS) (Multi) Aneurysm of the ascending aorta, without rupture (CMS-HCC) documented in this encounter [facility] Work Phone: Evaluation note* Diagnosis Aneurysm of ascending aorta without rupture (CMS-HCC)- Primary Aneurysm of ascending aorta without rupture (CMS-HCC) Postprocedural hypotension History of aortic arch replacement S/P ascending aortic replacement Blood vessel replaced by other means Postoperative atrial fibrillation (Multi) Acute respiratory distress syndrome (ARDS) (Multi) S/P ascending aortic replacement Blood vessel replaced by other means documented in this encounter [facility] Work Phone: Evaluation note* Diagnosis Aneurysm of ascending aorta without rupture (CMS-HCC)- Primary Aneurysm of ascending aorta without rupture (CMS-HCC) Postprocedural hypotension History of aortic arch replacement S/P ascending aortic replacement Blood vessel replaced by other means Postoperative atrial fibrillation (Multi) Acute respiratory distress syndrome (ARDS) (Multi) Aneurysm of the ascending aorta, without rupture (CMS-HCC) documented in this encounter [facility] Work Phone: Evaluation note* Diagnosis Essential [...] unspecified hyperlipidemia type documented in this encounter [facility] Discharge instructionsAmbulatory Orders* Podiatry Location: None Selected [facility] Work Phone: Reason for referral (narrative)* Diagnostic Procedure Only (Routine) - Pending Review Specialty Diagnoses / Procedures Referred By Ilene t Referred To Contact BR IMAGING Diagnoses Screening mammogram for breast cancer Procedures DAVID SCREENING W OSVALDO SCREENING DIGITAL BREAST TOMOSYNTHESIS BI SCREENING MAMMOGRAPHY BI 2-VIEW BREAST INC Jae Mayorga MD [address] [place] [address] Br Imaging [address] [place] [address] Referral ID Status Reason Start Date Expiration Date Visits Requested Visits Authorized [id number] Pending Review Auto-Generat ed Referral 07/10/2024 03/18/2025 1 1 [facility] for referral (narrative)* Consultation (Routine) - Authorized Specialty Diagnoses / Procedures Referred By Contact Referred To Contact Cardiothoracic Surgery / Cardiac Surgery Diagnoses Aneurysm of the ascending aorta, without rupture ([facility]-HCC) Anita Lim, CONSULTING SOLUTION MANAGER-ENVIRONMENTAL SYSTEMS COORDINATOR [address] [place] [address] [place] [address] [address] [facility] Department [place] [address] Referral ID Status Reason Start Date Expiration Date Visits Requested Visits Authorized [id number] Authorized Specialty Services Required 06/09/2024 06/09/2025 1 1 Electronically signed by Anita Lim CONSULTING SOLUTION MANAGER-ENVIRONMENTAL SYSTEMS COORDINATOR at 06/09/2024 1:46 PM EDT [facility] Work Phone: Reason for visit Narrative* Diagnostic Procedure Only (Routine) - Closed Specialty Diagnoses / Procedures Referred By Ilene hernandez Referred To Contact BR IMAGING Diagnoses Encounter for screening mammogram for malignant neoplasm of breast Procedures DAVID SCREENING SCREENING MAMMOGRAPHY BI 2-VIEW BREAST INC Savanna Koch, CONSULTING SOLUTION MANAGER.ENVIRONMENTAL SYSTEMS COORDINATOR [address] [place] [address] Br Imaging [address] [facility] [place] [address] Referral ID Status Reason Start Date Expiration Date V isits Requested Visits Authorized [id number] Closed Auto-Generate d Referral 05/06/2023 06/04/2024 1 1 [facility] for visit Narrative* Diagnostic Procedure Only (Routine) - Closed Specialty Diagnoses / Procedures Referred By Contac t Referred To Contact XR IMAGING Diagnoses Pain Procedures XR FOOT GENERAL 3V AP/LAT/OBL BILATERAL RADEX FOOT COMPLETE MINIMUM 3 VIEWS Amanda Fleming [address] [place] [address] [place] [address] Referral ID Status Reason Start Date Expiration Date V isits Requested Visits Authorized [id number] Closed Auto-Generate d Referral 12/12/2023 01/10/2025 1 1 [facility] for visit Narrative* Diagnostic Procedure Only (Routine) - Closed Specialty Diagnoses / Procedures Referred By Contac t Referred To Contact US IMAGING Diagnoses Chronic renal impairment, stage 3a (HCC) Procedures US KIDNEY/BLADDER US RETROPERITONEAL REAL TIME W/IMAGE COMPLETE Jae Belcher MD [address] [place] [address] [place] [address] Referral ID Status Reason Start Date Expiration Date V isits Requested Visits Authorized [id number] Closed Auto-Generate d Referral 02/25/2024 03/26/2025 1 1 [facility] for visit Narrative* Auth/Cert Specialty Diagnoses / Procedures Referred By Contac t Referred To Contact Diagnoses Ascending aorta dilation (CMS-HCC) Nonrheumatic mitral valve regurgitation Nonrheumatic tricuspid valve regurgitation Nonrheumatic aortic valve insufficiency Ascending aorta dilation (CMS-HCC) [I77.810] Nonrheumatic mitral valve regurgitation [I34.0] Nonrheumatic tricuspid valve regurgitation [I36.1] Nonrheumatic aortic valve insufficiency [I35.1] Procedures NJ CATH PLMT L HRT & ARTS W/NJX & ANGIO IMG S&I Left Heart Cath with Coronary Angiography and LV [facility] Service Area [address] [place] [address] u Cvepinv [address] [place] [address] Referral ID Status Reason Start Date Expiration Date Visits Re quested Visits Authorized [id number] 1 1 [facility] Work Phone: Reason for visit Narrative* Diagnostic Procedure Only (Routine) - Closed Specialty Diagnoses / Procedures Referred By Ilene hernandez Referred To Contact BR IMAGING Diagnoses Screening mammogram for breast cancer Procedures DAVID SCREENING W OSVALDO SCREENING DIGITAL BREAST TOMOSYNTHESIS BI SCREENING MAMMOGRAPHY BI 2-VIEW BREAST INC CAD Jae Belcher MD [address] [place] [address] Br Imaging [address] [place] [address] Referral ID Status Reason Start Date Expiration Date V isits Requested Visits Authorized [id number] Closed Auto-Generate d Referral 07/10/2024 03/18/2025 1 1 [facility] for visit Narrative* Imaging (Routine) - Authorized Specialty Diagnoses / Procedures Referred By Ilene hernandez Referred To Contact Radiology Diagnoses Aneurysm of ascending aorta without rupture (CMS-HCC) Procedures XR chest 2 [place] [address] [facility] [place] [address] Phone: tel: fax: Referral ID Status Reason Start Date Expiration Date Visits Requested Visits Authorized [id number] Authorized Perform Procedure 06/11/2024 06/11/2025 1 1 [facility] Work Phone: [employer] for visit Narrative* Auth/Cert Specialty Diagnoses / Procedures Referred By Ilene hernandez Referred To Contact Diagnoses Aneurysm of ascending aorta without rupture (CMS-HCC) Aneurysm of ascending aorta without rupture (CMS-HCC) [I71.21] Procedures NJ -AORT GRF W/CARD BYP F/AORTIC DS OTH/THN DSJ Ascending Aorta Replacement; Left Atrial [place] [address] [facility] Department [place] [address] Phone: tel: fax: [facility] [place] [address] [place] [address] fax: Referral ID Status Reason Start Date Expiration Date Visits Re quested Visits Authorized [id number] 1 1 [facility] Work Phone: Remktm for visit Narrative* Auth/Cert Specialty Diagnoses / Procedures Referred By Contac t Referred To Contact Diagnoses Aneurysm of ascending aorta without rupture (CMS-HCC) Aneurysm of ascending aorta without rupture (CMS-HCC) [I71.21] Procedures NJ -AORT GRF W/CARD BYP F/AORTIC DS OTH/THN DSJ Ascending Aorta Replacement; Left Atrial [place] [address] [address] [facility] [place] [id number] Phone: tel: fax: [facility] [place] [facility] [place] [address] fax: Referral ID Status Reason Start Date Expiration Date Visits Re quested Visits Authorized [id number] 1 1 [facility] Work Phone: Reason for visit Narrative* Imaging (Routine) - Authorized Specialty Diagnoses / Procedures Referred By Contac t Referred To Contact Radiology Diagnoses Aneurysm of the ascending aorta, without rupture (CMS-HCC) Procedures CT angio chest w [place] [address] [address] [facility] [place] [address] Phone: tel: fax: Referral ID Status Reason Start Date Expiration Date Visits Requested Visits Authorized [id number] Authorized Perform Procedure 4 08/25/2025 1 1 [facility] Work Phone: Reason for visit Narrative* Imaging (Routine) - Authorized Specialty Diagnoses / Procedures Referred By Contac t Referred To Contact Radiology Diagnoses Aneurysm of the ascending aorta, without rupture (CMS-HCC) Procedures XR chest 2 [place] [address] [facility] [place] [address] Phone: tel: fax: Referral ID Status Reason Start Date Expiration Date Visits Requested Visits Authorized [id number] Authorized Perform Procedure 09/16/2024 09/16/2025 1 1 [facility] Work Phone: Summary Purpose Family History [...] February 05, 2019 1 :33pm Power of Fixed Route Bus Operator No February 05, 2019 1:33pm Advance Directive Response Recorded Date/ Time Advance Directives No October 11:23am Living Will Yes February 05, 2019 2 :33pm Power of Fixed Route Bus Operator No February 05, 2019 2:33pm Date Activated [...] February 05, 2019 2 :33pm Power of Fixed Route Bus Operator No February 05, 2019 2:33pm Advance Directives on File No [email or web address] 3:04pm Living Will Yes November 02, 025 3:19pm Power of Fixed Route Bus Operator Yes November 02, 2024 3:19pm Advance Directives No October 11:23am Advance Directive Response Recorded Date/ Time Living Will Yes February 05, 2019 2 :33pm Do you have a Healthcare Power of Fixed Route Bus Operator? No February 05, 2019 2:33pm Advance Directives on File No 2024 3:04pm Living Will Yes November 02, 025 3:19pm Do you have a Healthcare Power of Fixed Route Bus Operator? Yes November 02, 2024 3:19pm Advance Directives No October 11:23am Advance Directive Response Recorded Date/ Time Advance Directives on File No 2024 3:04pm Living Will Yes November 02, 025 3:19pm Do you have a Healthcare Power of Fixed Route Bus Operator? Yes November 02, 2024 3:19pm Advance Directives No October 11:23am Advance Directive Response Recorded Date/ Time Advance Directives No October 11:23am Chief Complaint [...] 29, 2024 10:24am Heart valve replacement November 02 025 1:50pm Heart valve replacement November 11, [...] 12 11:53am Chief Complaint Admit Date S/P Yara 08/22September [...] 29, 2024 10:24am Heart valve replacement November 02 1:50pm Heart valve replacement November 11, 2024 [...] 16, 2024 10:19am Postoperative atrial fibrillation Januar 2024 10:19am Essential hypertension September 16, 2024 [...] November 12 11:53am Bilateral pleural effusion December 22 025 9:23am Mitral valve insufficiency December 22 025 9:23am Postoperative atrial fibrillation December 22, 2024 9:23am Essential hypertension December 22, 2024 9:23am Thoracic aortic aneurysm without rupture December 22, 2024 9:23am Chief Complaint Admit Date 1 M FU OK PER MMM October 29, 2024 10:24am Heart valve replacement November 02 025 1:50pm Heart valve replacement November 11, 2024 11:15am R1IGHT PLEURAL EFFUSION November 12, 2024 11:53am R1IGHT PLEURAL EFFUSION November 12, 2024 12:54pm PLEURAL EFFUSION November 16, 2024 7:5 8am 2 M FU PER MMM December 22, 2024 9:2 3am A FIB, PE December 31, 2024 6:2 5am E ORDER January 05, 2025 9:0 5am DWD January 14, 2025 8:47am 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 January 18, 2025 1 :45pm Reason for Visit Admit Date Bilateral pleural effusion October 10:24am Mitral valve insufficiency October 10:24am Postoperative atrial fibrillation ua 2024 10:24am Essential hypertension October 29 10:24am Thoracic aortic aneurysm without rupture October 29, 2024 10:24am Bilateral pleural effusion November 12 11:53am Bilateral pleural effusion December 22 025 9:23am Mitral valve insufficiency December 22 025 9:23am Postoperative atrial fibrillation December 22, [...] tingling of both feet January 072024 1:45pm Chief Complaint Admit Date A FIB, PE December 31, 2024 6:2 5am 30 DAY MONITOR December 31, 2024 8:0 0am E ORDER January 05, 2025 9:0 5am DWD January 14, 2025 8:47am 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 January 18, 2025 1 :45pm BLE; PARESTHESIA/ANESTHESIA April 21, 2025 7:01am BLE; PARESTHESIA/ANESTHESIA April 21, 2025 1:52pm Reason for Visit Admit Date Bilateral pleural effusion January 18 1:45pm Postoperative [...] Referred By Ilene hernandez Referred To Contact Nutrition Diagnoses Impaired fasting glucose Procedures CONSULT TO NUTRITION THERAPY MEDICAL NUTRITION ASSMT&IVNTJ INDIV EACH 15 ID Jae Belcher MD [address] [place] [address] Referral ID Status Reason Start Date Expiration Date Visits Requested Visits Authorized [id number] Authorized PCP Requested Referral 11/23/2023 11/22/2024 1 4 Specialty Diagnoses / Procedures Referred By Ilene hernandez Referred To Contact Diagnoses Controlled type 2 diabetes mellitus without complication, without long-term current use of insulin (HCC) Procedures CONSULT TO DIABETES EDUCATION DSME/MNT MEDICAL NUTRITION ASSMT&IVNTJ INDIV EACH 15 ID MEDICAL NUTRITION ASSMT&IVNTJ INDIV EACH 15 ID MEDICAL NUTRITION ASSMT&IVNTJ INDIV EACH 15 ID MEDICAL NUTRITION ASSMT&IVNTJ INDIV EACH 15 ID Jae Belcher MD [address] [place] [address] Referral ID Status Reason Start Date Expiration Date Visits Requested Visits Authorized [id number] Authorized PCP Requested Referral 02/25/2024 02/24/2025 1 1 Specialty Diagnoses / Procedures Referred By Contac t Referred To Contact US IMAGING Diagnoses Chronic renal impairment, stage 3a (HCC) Procedures US KIDNEY/BLADDER US RETROPERITONEAL REAL TIME W/IMAGE COMPLETE Jae Belcher MD [address] [place] [address] Us Imaging [place] [address] Referral ID Status Reason Start Date Expiration Date Visits Requested Visits Authorized [id number] Authorized Auto-Generat ed Referral 02/25/2024 03/26/2025 1 1 Specialty Diagnoses / Procedures Referred By Contac t Referred To Contact Cardiology Diagnoses Ascending aortic aneurysm, unspecified whether ruptured (CMS-HCC) Procedures Echocardiogram Non Bill Outside [place] [address] [address] [facility] [place] [address] Referral ID Status Reason Start Date Expiration Date Visits Requested Visits Authorized [id number] Pending Review Perform Procedure 05/22/2024 05/22/2025 1 1 Specialty Diagnoses / Procedures Referred By Contac t Referred To Contact Cardiology Diagnoses Ascending aorta dilation (CMS-HCC) Nonrheumatic mitral valve regurgitation Nonrheumatic tricuspid valve regurgitation Nonrheumatic aortic valve insufficiency Procedures Transthoracic Echo (TTE) Complete NJ ECHO TTHRC R-T 2D W/WOM-MODE COMPL SPEC&[place] [address] [employer] [facility] Department [place] [address] Referral ID Status Reason Start Date Expiration Date Visits Requested Visits Authorized [id number] Pending Review Perform Procedure 05/27/2024 05/27/2025 1 1 Referral ID Status Reason Start Date Expiration Date Visits Requested Visits Authorized [id number] Authorized Perform Procedure 05/27/2024 05/27/2025 1 1 Additional Source Comments INFORMATION SOURCE (unrecogn ized section and content) DATE CREATED AUTHOR 09/04/2018 [facility] DATE CREATED AUTHOR AUTHOR'S ORGANIZ ATION 12/10/2020 [facility] DATE CREATED AUTHOR AUTHOR'S ORGANIZ ATION 08/24/2024 [facility] DATE CREATED AUTHOR AUTHOR'S ORGANIZ ATION 08/29/2024 [facility] DATE CREATED AUTHOR AUTHOR'S ORGANIZ ATION 10/12/2024 [facility] DATE CREATED AUTHOR AUTHOR'S ORGANIZ ATION 10/30/2024 [facility] DATE CREATED AUTHOR AUTHOR'S ORGANIZ ATION 04/30/2025 [facility] Source Comments (unrecognize d section and content) In the event this informatio n is protected by the Federal Confidentiality of Alcohol and Drug Abuse Patient Records regulations: The Federal rules restrict any use of the information to criminally investigate or prosecute any alcohol or drug abuse patient.[facility] the event this information is protected by the Federal Confidentiality of Alcohol and Drug Abuse Patient Records regulations: The Federal rules restrict any use of the information to criminally investigate or prosecute any alcohol or drug abuse patient.[facility] the event this information is protected by the Federal Confidentiality of Alcohol and Drug Abuse Patient Records regulations: The Federal rules restrict any use of the information to criminally investigate or prosecute any alcohol or drug abuse patient.[facility] the event this information is protected by the Federal Confidentiality of Alcohol and Drug Abuse Patient Records regulations: The Federal rules restrict any use of the information to criminally investigate or prosecute any alcohol or drug abuse patient.[facility] the event this information is protected by the Federal Confidentiality of Alcohol and Drug Abuse Patient Records regulations: The Federal rules restrict any use of the information to criminally investigate or prosecute any alcohol or drug abuse patient.[facility] the event this information is protected by the Federal Confidentiality of Alcohol and Drug Abuse Patient Records regulations: The Federal rules restrict any use of the information to criminally investigate or prosecute any alcohol or drug abuse patient.[facility] the event this information is protected by the Federal Confidentiality of Alcohol and Drug Abuse Patient Records regulations: The Federal rules restrict any use of the information to criminally investigate or prosecute any alcohol or drug abuse patient.[facility] the event this information is protected by the Federal Confidentiality of Alcohol and Drug Abuse Patient Records regulations: The Federal rules restrict any use of the information to criminally investigate or prosecute any alcohol or drug abuse patient.Premier HealthIn the event this information is protected by the Federal Confidentiality of Alcohol and Drug Abuse Patient Records regulations: The Federal rules restrict any use of the information to criminally investigate or prosecute any alcohol or drug abuse patient.Premier HealthIn the event this information is protected by the Federal Confidentiality of Alcohol and Drug Abuse Patient Records regulations: The Federal rules restrict any use of the information to criminally investigate or prosecute any alcohol or drug abuse patient.Prem[facility] HealthIn the event this information is protected by the Federal Confidentiality of Alcohol and Drug Abuse Patient Records regulations: The Federal rules restrict any use of the information to criminally investigate or prosecute any alcohol or drug abuse patient.Premier HealthIn the event this information is protected by the Federal Confidentiality of Alcohol and Drug Abuse Patient Records regulations: The Federal rules restrict any use of the information to criminally investigate or prosecute any alcohol or drug abuse patient.Prem[facility] HealthIn the event this information is protected by the Federal Confidentiality of Alcohol and Drug Abuse Patient Records regulations: The Federal rules restrict any use of the information to criminally investigate or prosecute any alcohol or drug abuse patient.Prem[facility] HealthIn the event this information is protected by the Federal Confidentiality of Alcohol and Drug Abuse Patient Records regulations: The Federal rules restrict any use of the information to criminally investigate or prosecute any alcohol or drug abuse patient.Premier HealthIn the event this information is protected by the Federal Confidentiality of Alcohol and Drug Abuse Patient Records regulations: The Federal rules restrict any use of the information to criminally investigate or prosecute any alcohol or drug abuse patient.[facility] the event this information is protected by the Federal Confidentiality of Alcohol and Drug Abuse Patient Records regulations: The Federal rules restrict any use of the information to criminally investigate or prosecute any alcohol or drug abuse patient.Prem[facility] HealthIn the event this information is protected by the Federal Confidentiality of Alcohol and Drug Abuse Patient Records regulations: The Federal rules restrict any use of the information to criminally investigate or prosecute any alcohol or drug abuse patient.Prem[facility] HealthIn the event this information is protected by the Federal Confidentiality of Alcohol and Drug Abuse Patient Records regulations: The Federal rules restrict any use of the information to criminally investigate or prosecute any alcohol or drug abuse patient.[facility] the event this information is protected by the Federal Confidentiality of Alcohol and Drug Abuse Patient Records regulations: The Federal rules restrict any use of the information to criminally investigate or prosecute any alcohol or drug abuse patient.Prem[facility] HealthIn the event this information is protected by the Federal Confidentiality of Alcohol and Drug Abuse Patient Records regulations: The Federal rules restrict any use of the information to criminally investigate or prosecute any alcohol or drug abuse patient.Premier HealthIn the event this information is protected by the Federal Confidentiality of Alcohol and Drug Abuse Patient Records regulations: The Federal rules restrict any use of the information to criminally investigate or prosecute any alcohol or drug abuse patient.Prem[facility] HealthIn the event this information is protected by the Federal Confidentiality of Alcohol and Drug Abuse Patient Records regulations: The Federal rules restrict any use of the information to criminally investigate or prosecute any alcohol or drug abuse patient.Prem[facility] HealthIn the event this information is protected by the Federal Confidentiality of Alcohol and Drug Abuse Patient Records regulations: The Federal rules restrict any use of the information to criminally investigate or prosecute any alcohol or drug abuse patient.Prem[facility] HealthIn the event this information is protected by the Federal Confidentiality of Alcohol and Drug Abuse Patient Records regulations: The Federal rules restrict any use of the information to criminally investigate or prosecute any alcohol or drug abuse patient.Prem[facility] HealthIn the event this information is protected by the Federal Confidentiality of Alcohol and Drug Abuse Patient Records regulations: The Federal rules restrict any use of the information to criminally investigate or prosecute any alcohol or drug abuse patient.Prem[facility] HealthIn the event this information is protected by the Federal Confidentiality of Alcohol and Drug Abuse Patient Records regulations: The Federal rules restrict any use of the information to criminally investigate or prosecute any alcohol or drug abuse patient.Prem[facility] HealthIn the event this information is protected by the Federal Confidentiality of Alcohol and Drug Abuse Patient Records regulations: The Federal rules restrict any use of the information to criminally investigate or prosecute any alcohol or drug abuse patient.Prem[facility] HealthIn the event this information is protected by the Federal Confidentiality of Alcohol and Drug Abuse Patient Records regulations: The Federal rules restrict any use of the information to criminally investigate or prosecute any alcohol or drug abuse patient.Prem[facility] HealthIn the event this information is protected by the Federal Confidentiality of Alcohol and Drug Abuse Patient Records regulations: The Federal rules restrict any use of the information to criminally investigate or prosecute any alcohol or drug abuse patient.[facility] HealthIn the event this information is protected by the Federal Confidentiality of Alcohol and Drug Abuse Patient Records regulations: The Federal rules restrict any use of the information to criminally investigate or prosecute any alcohol or drug abuse patient.Prem[facility] HealthIn the event this information is protected by the Federal Confidentiality of Alcohol and Drug Abuse Patient Records regulations: The Federal rules restrict any use of the information to criminally investigate or prosecute any alcohol or drug abuse patient.Prem[facility] HealthIn the event this information is protected by the Federal Confidentiality of Alcohol and Drug Abuse Patient Records regulations: The Federal rules restrict any use of the information to criminally investigate or prosecute any alcohol or drug abuse patient.Prem[facility] HealthIn the event this information is protected by the Federal Confidentiality of Alcohol and Drug Abuse Patient Records regulations: The Federal rules restrict any use of the information to criminally investigate or prosecute any alcohol or drug abuse patient.Prem[facility] HealthIn the event this information is protected by the Federal Confidentiality of Alcohol and Drug Abuse Patient Records regulations: The Federal rules restrict any use of the information to criminally investigate or prosecute any alcohol or drug abuse patient.Prem[facility] HealthIn the event this information is protected by the Federal Confidentiality of Alcohol and Drug Abuse Patient Records regulations: The Federal rules restrict any use of the information to criminally investigate or prosecute any alcohol or drug abuse patient.[facility] Reason for Visit (unrecogniz ed section and [...] THERAPY MEDICAL NUTRITION ASSMT&IVNTJ INDIV EACH 15 Jae Danielson MD [address] [place] [address] Referral ID Status Reason Start Date Expiration Date Visits Requested Visits Authorized [id number] Authorized PCP Requested Referral 11/23/2023 11/22/2024 1 4 Reason Comments Patient Question Reason Comments New Patient Pain Reason Comments Orders Reason Comments F/U 6 months Specialty Diagnoses / Procedures Referred By Ilene t Referred To Contact Diagnoses Controlled type 2 diabetes mellitus without complication, without long-term current use of insulin (HCC) Procedures CONSULT TO DIABETES EDUCATION DSME/MNT MEDICAL NUTRITION ASSMT&IVNTJ INDIV EACH 15 ID MEDICAL NUTRITION ASSMT&IVNTJ INDIV EACH 15 ID MEDICAL NUTRITION ASSMT&IVNTJ INDIV EACH 15 ID MEDICAL NUTRITION ASSMT&IVNTJ INDIV EACH 15 ID Jae Belcher MD [address] [place] [address] Referral ID Status Reason Start Date Expiration Date V isits Requested Visits Authorized [id number] Closed PCP Requested Referral 02/25/2024 02/24/2025 1 1 Reason Comments Results Reason Onset Date Comments Refill Request 05/08/2024 Reason Comments Urinary Frequency burning with urinati on x 2 days Reason Comments F/U 3 Month Reason Comments Follow-up Specialty Diagnoses / Procedures Referred By Contact Referred To Contact Cardiothoracic Surgery / Cardiac Surgery Diagnoses Aneurysm of the ascending aorta, without rupture ([facility]) Anita Lim, CONSULTING SOLUTION MANAGER-[facility] [address] [place] [address] Phone: tel: fax: [place] [address] [address] [place] [address] Phone: tel: fax: Referral ID Status Reason Start Date Expiration Date Visits Requested Visits Authorized [id number] Authorized Specialty Services Required 06/09/2024 06/09/2025 1 1 Specialty Diagnoses / Procedures Referred By Ilene t Referred To Contact Cardiology Diagnoses Ascending aortic aneurysm, unspecified whether ruptured ([facility]) Procedures Echocardiogram Non Bill [place] [address] [address] Department [place] [address] Referral ID Status Reason Start Date Expiration Date Visits Requested Visits Authorized [id number] Pending Review Perform Procedure 05/22/2024 05/22/2025 1 1 Reason Comments Consult Specialty Diagnoses / Procedures Referred By Ilene t Referred To Contact Cardiology Diagnoses Ascending aorta dilation ([facility]) Nonrheumatic mitral valve regurgitation Nonrheumatic tricuspid valve regurgitation Nonrheumatic aortic valve insufficiency Procedures Transthoracic Echo (TTE) Complete [place] ECHO [facility] R-T 2D W/WOM-MODE COMPL SPEC&[place] [address] [address] Department [place] [address] Referral ID Status Reason Start Date Expiration Date Visits Requested Visits Authorized [id number] Authorized Perform Procedure 05/27/2024 05/27/2025 1 1 Reason Comments Hospital F/U [facility] Dr. Galloway.Has been having some dizziness off and on. Reason Onset Date Comments Refill Request 09/13/2024 Reason Comments Post-op Visit Care Teams (unrecognized sec tion and content) Research Center Director Relationship Specialty Start Date End Date Jae Belcher MD [address] [place] [address] PCP - General Internal Medicine 08/22/21 Research Center Director Relationship Specialty Start Date End Date Jae Belcher MD [address] [place] [address] PCP - General Internal Medicine 08/22/21 Research Center Director Relationship Specialty Start Date End Date Jae Belcher MD [address] [place] [address] PCP - General Internal Medicine 08/22/21 Research Center Director Relationship Specialty Start Date End Date Jae Belcher MD [address] [place] [address] PCP - General Internal Medicine 08/22/21 Research Center Director Relationship Specialty Start Date End Date Jae Belcher MD [address] [place] [address] PCP - General Internal Medicine 08/22/21 Team [...] PA Attending Provider, Referr ing Provider Active Research Center Director Relationship Specialty Start Date End Date Jae Belcher MD [address] [place] [address] PCP - General Internal Medicine 08/22/21 Research Center Director Relationship Specialty Start Date End Date Jae Belcher MD [address] [place] [address] PCP - General Internal Medicine 08/22/21 Research Center Director Relationship Specialty Start Date End Date Jae Belcher MD [address] [place] [address] PCP - General Internal Medicine 08/22/21 Research Center Director Relationship Specialty Start Date End Date Jae Belcher MD [address] [place] [address] PCP - General Internal Medicine 08/22/21 Research Center Director Relationship Specialty Start Date End Date Jae Belcher MD [address] [place] [address] PCP - General Internal Medicine 08/22/21 Research Center Director Relationship Specialty Start Date End Date Jae Belcher MD [address] [place] [address] PCP - General Internal Medicine 08/22/21 Research Center Director Relationship Specialty Start Date End Date Jae Belcher MD [address] [place] [address] PCP - General Internal Medicine 08/22/21 Research Center Director Relationship Specialty Start Date End Date Jae Belcher MD [address] [facility] [place] [address] PCP - General Internal Medicine 08/22/21 Research Center Director Relationship Specialty Start Date End Date Jae Belcher MD [address] [facility] [place] [address] PCP - General Internal Medicine 08/22/21 Research Center Director Relationship Specialty Start Date End Date Jae Belcher MD [address] [facility] [place] [address] PCP - General Internal Medicine 08/22/21 Research Center Director Relationship Specialty Start Date End Date Jae Belcher MD [address] [facility] [place] [address] PCP - General Internal Medicine 08/22/21 Research Center Director Relationship Specialty Start Date End Date Jae Belcher MD [address] [facility] [place] [address] PCP - General Internal Medicine 08/22/21 Research Center Director Relationship Specialty Start Date End Date Jae Belcher MD [address] [facility] [place] [address] PCP - General Internal Medicine 08/22/21 Research Center Director Relationship Specialty Start Date End Date Jae Belcher MD [address] [facility] [place] [address] PCP - General Internal Medicine 08/22/21 Research Center Director Relationship Specialty Start Date End Date Jae Belcher MD [address] [place] [address] PCP - General Internal Medicine 08/22/21 Research Center Director Relationship Specialty Start Date End Date Jae Belcher MD [address] [place] [address] PCP - General Internal Medicine 08/22/21 Research Center Director Relationship Specialty Start Date End Date Jae Belcher MD [address] [place] [address] PCP - General Internal Medicine 08/22/21 Research Center Director Relationship Specialty Start Date End Date Jae Belcher MD [address] [place] [address] PCP - General Internal Medicine 08/22/21 Research Center Director Relationship Specialty Start Date End Date Jae Belcher MD [address] [place] [address] PCP - General Internal Medicine 05/27/24 [place] [address] [address] [place] [address] Surgeon Cardiothoracic Surgery 06/09/24 Research Center Director Relationship Specialty Start Date End Date Jae Belcher MD [address] [place] [address] PCP - General Internal Medicine 05/27/24 [place] [address] [address] Department [place] [address] Surgeon Cardiothoracic Surgery 06/09/24 Research Center Director Relationship Specialty Start Date End Date Jae Belcher MD [address] [place] [address] PCP - General Internal Medicine 08/22/21 Research Center Director Relationship Specialty Start Date End Date Jae Belcher MD [address] [place] [address] PCP - General Internal Medicine 05/27/24 [place] [address] [facility] [place] [address] Surgeon Cardiothoracic Surgery 06/09/24 Research Center Director Relationship Specialty Start Date End Date Jae Belcher MD [address] [place] [address] PCP - General Internal Medicine 05/27/24 [place] [address] [facility] [place] [address] Surgeon Cardiothoracic Surgery 06/09/24 Research Center Director Relationship Specialty Start Date End Date Jae Belcher MD [address] [place] [address] PCP - General Internal Medicine 05/27/24 [place] [address] [facility] [place] [address] Surgeon Cardiothoracic Surgery 06/09/24 Research Center Director Relationship Specialty Start Date End Date Jae Belcher MD [address] [place] [address] PCP - General Internal Medicine 05/27/24 Research Center Director Relationship Specialty Start Date End Date Jae Belcher MD [address] [place] [address] PCP - General Internal Medicine 05/27/24 Research Center Director Relationship Specialty Start Date End Date Jae Belcher MD [address] [place] [address] PCP - General Internal Medicine 08/22/21 Savanna Kothari, CONSULTING SOLUTION MANAGER.ENVIRONMENTAL SYSTEMS COORDINATOR [address] [place] [address] Alarm Service Technician Internal Medicine 08/17/24 Research Center Director Relationship Specialty Start Date End Date Jae Belcher MD [address] [place] [address] PCP - General Internal Medicine 08/22/21 Savanna Kothari, CONSULTING SOLUTION MANAGER.ENVIRONMENTAL SYSTEMS COORDINATOR [address] [place] [address] Alarm Service Technician Internal Medicine 08/17/24 Research Center Director Relationship Specialty Start Date End Date Jae Belcher MD [address] [place] [address] PCP - General Internal Medicine 05/27/24 [place] [address] [address] Department [place] [address] Surgeon Cardiothoracic Surgery 06/09/24 Research Center Director Relationship Specialty Start Date End Date Jae Belcher MD [address] [place] [address] PCP - General Internal Medicine 05/27/24 [place] [address] [address] Department [place] [address] Surgeon Cardiothoracic Surgery 06/09/24 Research Center Director Relationship Specialty Start Date End Date Jae Belcher MD [address] [place] [address] PCP - General Internal Medicine 08/22/21 Savanna Kothari, CONSULTING SOLUTION MANAGER.ENVIRONMENTAL SYSTEMS COORDINATOR [address] [place] [address] Alarm Service Technician Internal Medicine 08/17/24 Research Center Director Relationship Specialty Start Date End Date Jae Belcher MD [address] [place] [address] PCP - General Internal Medicine 08/22/21 Savanna Kothari, CONSULTING SOLUTION MANAGER.ENVIRONMENTAL SYSTEMS COORDINATOR [address] [place] [address] Alarm Service Technician Internal Medicine 08/17/24 Team Status: Active Member Role Status Dates Dr. Jae Belcher MD Primary Care Provider Active Team Status: Inactive Member Role Status Dates Dr. Jae Belcher MD Primary Care Provider Active Start: September 03, 2024 End: September 03, 2024 Dr. Jae Belcher MD Referring Provider Active Start: September 03, 2024 End: September 03, 2024 Mendoza M Boogie PA, PA Attending Provider Active Start: [...] Active Start: September 07, 2024 Christina Chapman MEAT SERVICE TEAM MEMBER, MEAT SERVICE TEAM MEMBER-C Attending Provider Active Start: September 07, 2024 Team Status: Inactive Member Role Status Dates Dr. Jae Belcher MD Primary Care Provider Active Start: September 08, 2024 End: September 08, 2024 Mendoza Booige PA, PA Attending Provider Active Start: September [...] Active Start: September 08, 2024 Christina Chapman NP, MEAT SERVICE TEAM MEMBER-C Attending Provider Active Start: September 08, 2024 [...] Active Start: September 22, 2024 Christina Chapman MEAT SERVICE TEAM MEMBER, MEAT SERVICE TEAM MEMBER-C Attending Provider Active Start: September 22, 2024 [...] Active Start: September 23, 2024 Christina Chapman MEAT SERVICE TEAM MEMBER, MEAT SERVICE TEAM MEMBER-C Attending Provider Active Start: September 23, 2024 Team Status: Inactive Member Role Status Dates Dr. Jae Belcher MD Primary Care Provider Active Start: October 29, 2024 End: October 29, 2024 Dr. Jae Belcher MD Referring Provider Active Start: October 29, 2024 End: October 29, 2024 Mendoza Booige PA, PA Attending Provider Active Start: October [...] 16, 2024 End: November 16, 2024 Mendoza Boogie PA, PA Attending Provider Active Start: November 16, 2024 End: November 16, 2024 Mendoza Boogie PA, PA [...] End: December 21, 2024 Mendoza JULIEN PA Attending Provider Active Start: December 21, [...] 22, 2024 End: December 22, 2024 Mendoza JULIEN PA Attending Provider Active Start: December 22, 2024 End: December 22, 2024 Research Center Director Relationship Specialty Start Date End Date Jae Belcher MD [address] [place] [address] PCP - General Internal Medicine 08/22/21 Savanna Kothari, CONSULTING SOLUTION MANAGER.ENVIRONMENTAL SYSTEMS COORDINATOR [address] [place] [address] Alarm Service Technician Internal Medicine 08/17/24 Team Status: Active Member [...] 05, 2025 End: January 05, 2025 Mendoza Boogie PA, PA Attending Provider Active Start: January 05, 2025 End: January 05, 2025 Mendoza Boogie PA, PA Referring Provider Active Start: January 05, 2025 [...] January 18, 2025 End: January 18, 2025 Team Status: Active Member Role/Relationship Status Dates Dr. Berna Parsons MD Primary Care Provider Active Team Status: Active Member Role/Relationship Status Dates Dr. Jae Belcher MD Primary Care Provider Active Start: December 31, 2024 Mendoza Boogie PA, PA Attending Provider Active Start: December 31, 2024 Mendoza Boogie PA, PA Referring Provider Active Start: December 31, 2024 Team Status: Active Member Role/Relationship Status Dates Dr. Jae Belcher MD Primary Care Provider Active Start: December 31, 2024 Dr. Tulio Keenan MD Attending Provider Active S tart: December 31, 2024 Mendoza Boogie PA, PA Referring Provider Active Start: December 31, 2024 Team Status: Inactive Member Role/Relationship Status Dates Dr. Jae Belcher MD Primary Care Provider Active Start: January 05, 2025 End: January 05, 2025 Mendoza Boogie PA, PA Attending Provider Active Start: January 05, 2025 End: January 05, 2025 Mendoza Boogie PA, PA Referring Provider Active Start: January 05, 2025 End: January 05, 2025 Team Status: Inactive Member Role/Relationship Status Dates Dr. Jae Belcher MD Primary Care Provider Active Start: January 14, 2025 End: February 06, 2025 Self Referred Attending Provider Active Start: M diann 2024 End: February 06, 2025 Team Status: Inactive Member Role/Relationship Status Dates Dr. Jae Belcher MD Primary Care Provider Active Start: January 18, 2025 End: January 18, 2025 Dr. Jae Belcher MD Referring Provider Active Start: January 18, 2025 End: January 18, 2025 Dr. Berna Parsons MD Attending Provider Active Start: January 18, 2025 End: January 18, 2025 Team Status: Inactive Member Role/Relationship Status Dates Dr. Berna Parsons MD Primary Care Provider Active Start: April 21, 2025 End: April 21, 2025 Dr. Berna Parsons MD Attending Provider Active Start: April 21, 2025 End: April 21, 2025 Dr. Berna Parsons MD Referring Provider Active Start: April 21, 2025 End: April 21, 2025 Team Status: Active Member Role/Relationship Status Dates Dr. Berna Parsons MD Primary Care Provider Active Start: April 21, 2025 Dr. Berna Parsons MD Referring Provider Active Start: April 21, 2025 Dr. Berna Parsons MD Other Provider Active St art: April 21, 2025 Dr. Bonifacio Alvarez MD Attending Provider Active S tart: April 21, 2025 Goals (unrecognized section and content) Goals [...] RN)1343 (Due: Stopped - Provider: Anita Lim APRN-[facility]) sodium chloride 0.9% infusion 1.5 mL/kg/hr 78 [...] Diana RN) 0946 (Given - Provider: Meng Mcghee RN)2100 (Due) apixaban (Eliquis) tablet 5 mg 5 mg, oral, 2 times daily, First dose on Sat08/20/24 at 0900 0851 (Given - Provider: Moose Guardado RN)2011 (Given - Provider: Patrick Retana RN) 0907 (Given - Provider: Meng Mcghee RN)2034 (Given - Provider: Harika Diana RN) 0946 (Given - Provider: Meng Mcghee RN)2100 (Due) aspirin chewable tablet 81 mg 81 mg, oral, Daily, First dose on Sat08/10/24 at 1300, Phase II/On Unit, Hold for platelets less than 50,000 0849 (Given - Provider: Moose Guardado RN) 0907 (Given - Provider: Meng Mcghee RN) 0946 (Given - Provider: Meng Mcghee RN) furosemide (Lasix) injection 20 mg (CANCELED) 20 mg, intravenous, 2 times daily (morning and midday), First dose (after last modification) on Sat08/20/24 at 0900 0852 (Given - Provider: Moose Guardado RN)1437 (Given - Provider: Moose Guardado, DANIEL) furosemide (Lasix) tablet 20 mg 20 mg, oral, 2 times daily (morning and late afternoon), First dose on Sat08/21/24 at 0800 0907 (Given - Provider: Meng Mcghee RN)1644 (Given - Provider: Meng Mcghee, RN) 0946 (Given - Provider: Meng Mcghee, RN)1700 (Due) guaiFENesin (Mucinex) 12 hr tablet 1,200 mg (COMPLETED) 1,200 mg, oral, 2 times daily, First dose on Sat08/18/24 at 2100, For 6 doses, Administer with plenty of fluids to ensure proper action. Do not crush, chew, or split. 0849 (Given - Provider: Moose Guardado RN)2010 (Given - Provider: Patrick Retana, DANIEL) 09 (Given - Provider: Meng Mcghee, RN) magnesium sulfate 2 g in sterile [...] at 2100 0851 (Given - Provider: Moose Guardado, DANIEL)2010 (Given - Provider: Patrick Retana, DANIEL) 09 (Given - Provider: Meng Mcghee, DANIEL)203 (Given - Provider: Harika Diana RN) 0946 (Given - Provider: Meng Mcghee, RN)2100 (Due) multivitamin with minerals 1 tablet 1 tablet, oral, Daily, First dose on Sat08/16/24 at 0900 0850 (Given - Provider: Moose Guardado RN) 0906 (Given - Provider: Meng Mcghee, DANIEL) 0947 (Given - Provider: Meng Mcghee, RN) polyethylene glycol (Glycolax, Miralax) packet 17 g 17 g, oral, Daily, First dose on Sat08/10/24 at 1300, Phase II/On Unit, Bowel Regimen - for prevention of constipation. 0851 (Not Given - Provider: Moose Guardado RN - Reason: Other - Comment: 4 bm's) 09 (Not Given - Provider: Meng Mcghee RN [...] oral, Nightly, First dose on Sat08/11/24 at 2100 2010 (Given - Provider: Patrick Retana RN) 2034 (Given - Provider: Harika Diana RN) 2099 (Due) sennosides-docusate sodium (Zoie-Colace) 8.6-50 mg per tablet 2 tablet 2 tablet, oral, 2 times daily, First dose on Sat08/10/24 at 1300, Phase II/On Unit, Bowel Regimen - for prevention of constipation Hold for loose stools, On hold since Sat08/15/2024 at 0719 until manually unheld 09 (Not Given - Provider: Moose Guardado RN - Reason: Other - Comment: marked as held by provider)2099 (Not Given - Provider: Patrick Retana RN - Reason: See Provider Order) 09 (Not Given - Provider: Meng Mcghee RN - Reason: See Provider Order)2100 (Not Given - Provider: Harika Diana RN - Reason: See Provider Order) 0900 (Not Given - Provider: Meng Mcghee RN - Reason: See Provider Order)2100 (Dose Auto Held - Provider: Eh Mckeon, CONSULTING SOLUTION MANAGER-ENVIRONMENTAL SYSTEMS COORDINATOR) PRN Medication Order 08/20/2024 08/21/2024 08/22/2024 acetaminophen [...] BE BASED ON THE PRIMARY CLINICAL RECORDS. [employer] provides no warranty or guarantee of the accuracy or completeness of information in this document.
[2025-05-03 08:34] LABS: AST(SGOT) 34 U/L (<=31); Alanine Aminotransfer ALT/SGPT 33 U/L (<=34); Albumin, Serum 4.4 g/dL (3.4-4.8); Alkaline Phosphatase 106 U/L (35-104); Bilirubin, Direct 0.20 mg/dL (0.00-0.30); Cholesterol 136 mg/dL (<=200); Globulin 2.8 g/dL (2.2-4.2); Low Density Lipoprotein Calc. 59 mg/dL; Triglycerides 92 mg/dL; Very Low Density Lipoprotein 18 mg/dL (5-40); cholesterol:hdl ratio screen 2.30
[2025-05-03 08:38] LABS: CRP < 3.00 mg/L (0.0-3.0)
[2025-05-04 13:08] LABS: ANTINUCLEAR ANTIBODIES DIRECT Negative (Negative); Anti-Chromatin <0.2 AI (0.0-0.9); Anti-Jo <0.2 AI (0.0-0.9); Anti-dsDNA Ab <1 IU/mL (0-9); SJOGREN'S Anti-SS-A test 0.4 AI (0.0-0.9); SJOGREN'S Anti-SS-B test < 0.2 AI (0.0-0.9)
[2025-05-04 16:09] LABS: Lyme Scn Total Ab w/Rflx Negative (Negative)
== END | disposition home or self-care (01) ==
LOC: LAB 07:13
PROVIDERS: PCP Internal Medicine; Referring Provider Internal Medicine Cardiovascular Disease; Visit Provider Internal Medicine Cardiovascular Disease
DX: G62.9 Polyneuropathy, unspecified (principal); E78.5 Hyperlipidemia, unspecified
CPT/HCPCS: 36415; 80061; 80076; 85652; 86038; 86140; 86200; 86225; 86235; 86618

== ENCOUNTER → 2025-05-17 | Outpatient (CLI) | payer MEDICARE, SELFPAY ==
[2024-11-02 14:51] VITALS: BMI 23.1
--- NOTE | 2025-05-17 14:10 | CT_ITS ---
PROCEDURE: CTA CHST, ABD, PEL W AND/OR WO 05/17/2025 REASON FOR EXAM: AAA REPAIR History of thoracic aortic aneurysm repair. Breast cancer. TECHNIQUE: Chest, abdomen and pelvis CT with intravenous contrast. Coronal and Sagittal reconstruction series were provided. One or more dose reduction techniques were used (e.g., Automated exposure control, adjustment of the mA and/or kV according to patient size, use of iterative reconstruction technique. PATIENT PREPARATION: Per protocol CONTRAST: Isovue 370 VOLUME: 100 mL RADIATION DOSE SUMMARY: CTDlvol: 14.6 mGy DLP: 1061.93 mGycm COMPARISON: Prior study dated May 05, 2024. FINDINGS: CT CHEST: Hardware: None Lymph nodes: Stable small benign-appearing bilateral axillary lymph nodes. Heart and Vasculature: Midline sternotomy. The patient is status post repair of the ascending aortic aneurysm. No evidence of leak or dissection. Atherosclerotic calcification of the aortic arch. Prominence of the central pulmonary artery. A left atrial clip is seen. Cardiomegaly. There is enlargement of the right atrium. Lungs and Airways: Increased markings at the lung bases worse on the left side suggestive of either atelectasis and/or scarring. Pleura: Tiny right pleural effusion. Bones: Degenerative changes of the thoracic spine. CT ABDOMEN/PELVIS: Liver: Normal size. No mass. Gallbladder: Unremarkable. The gallbladder is contracted. Spleen: Normal size. Pancreas: Diffuse fatty atrophy. Adrenals: Unremarkable Kidneys: Stable 5.4 cm cyst in the medial right kidney. Bladder: The urinary bladder is empty. Reproductive Organs: Prior hysterectomy. Adnexal regions are unremarkable. Bowel: Unremarkable Appendix: The appendix is not identified. There is no inflammatory process identified in the right lower quadrant to suggest appendicitis. Lymph nodes: Unremarkable. Vasculature: Mild diffuse atherosclerotic calcifications are noted. Peritoneum / Retroperitoneum: Unremarkable Bones: Degenerative changes of the spine. CT/CTA Chst, Abd, Pel W and/or WO IMPRESSION: Status post aneurysmal repair of the ascending thoracic aorta. The remainder of the examination is unchanged. Reading Location: [id number]
[2025-05-17 14:31] LABS: CREATININE FINGERSTICK < 1.0 mg/dL (0.55-1.02); EGFR FINGERSTICK > 60.0000 mL/min (>60)
== END | disposition home or self-care (01) ==
LOC: CT 13:45
PROVIDERS: PCP Internal Medicine; Referring Provider Internal Medicine Cardiovascular Disease; Visit Provider Internal Medicine Cardiovascular Disease
DX: I71.21 Aneurysm of the ascending aorta, without rupture (principal); I10 Essential (primary) hypertension
CPT/HCPCS: 71275; 74174; Q9967

== ENCOUNTER → 2025-05-24 | Outpatient (CLI) | payer MEDICARE, SELFPAY ==
[2024-11-02 14:51] VITALS: BMI 23.1
--- NOTE | 2025-05-24 13:45 | MRI_ITS ---
PROCEDURE: SPINE LUMBAR (ROUTINE) 05/24/2025 REASON FOR EXAM: DEMYELINATING NEUROPATHY TECHNIQUE: Procedure Code: MRISPL Modality: MR Procedure: SPINE LUMBAR (ROUTINE) COMPARISON: None. FINDINGS: Vertebrae: Preserved in height and signal. A focus of hyperintense signal on T2 and T1 at L3 vertebral body consistent with a hemangioma. Alignment: Unremarkable. Conus Medullaris: Unremarkable. T12-L1: Disc desiccation. Disc bulge. Facet joints arthropathy. No significant foraminal or canal stenosis. L1-2: Disc bulge. Facet joint arthropathy. Ligamentum flavum hypertrophy. Mild inferior bilateral foramina stenosis. Mild canal stenosis. L2-3: Disc desiccation. Disc bulge. Ligamentum flavum hypertrophy. Facet joint arthropathy. Mild inferior bilateral foramina stenosis. Mild canal stenosis. L3-4: Disc desiccation. Disc bulge. Facet joint arthropathy. Ligamentum flavum hypertrophy. Facet arthropathy. Mild inferior bilateral foramina stenosis. Mild canal stenosis. L4-5: Disc desiccation. Disc bulge. Facet joint arthropathy. Ligamentum flavum hypertrophy. Mild bilateral foramina stenosis. No significant canal stenosis. L5-S1: Disc desiccation. Disc bulge. Facet joint arthropathy. No significant foraminal or canal stenosis. Sacrum: Unremarkable. MRI/Spine Lumbar (Routine) IMPRESSION: Degenerate changes, predominantly for disc bulges and mild canal stenoses at L1 -L2 and L2-L3. The remainder levels are as detailed. Reading Location: [id number]
== END | disposition home or self-care (01) ==
LOC: MRI 13:17
PROVIDERS: PCP Internal Medicine; Referring Provider Internal Medicine; Visit Provider Internal Medicine
DX: G37.9 Demyelinating disease of central nervous system, unspecified (principal)
CPT/HCPCS: 72148

== ENCOUNTER 2025-06-04 20:35 | Observation (INO) | payer MEDICARE, SELFPAY ==
--- OUTSIDE RECORDS SUMMARY | 2024-10-28 09:00 | XMS RPT_ITS ---
Author Name Auto Generated Organization OHIP Care Team Providers Care Twister Doffer Name Role Phone JAE CAUSEY Primary Care Unavailable FLY BLUE Admitting Unavailable FLY BLUE Attending Unavailable TANIA CEDILLO R Admitting Unavailable TANIA CEDILLO R Attending Unavailable JAE CAUSEY Primary Care Unavailable NGUYEN, TANIA R Referring Unavailable JAE CAUSEY Primary Care Unavailable BECKY ARMENTA A Attending Unavailable JAE CAUSEY Primary Care Unavailable KATHI, BECKY A Referring Unavailable NGUYEN, TANIA R Referring Unavailable AJE CAUSEY Primary Care Unavailable BONIFACIO OLMEDO Referring Unavailable JAE CAUSEY Primary Care Unavailable NGUYEN, TANIA R Attending Unavailable ISAIAS HURST Referring Unavailable CAUSEY, JAE OLINDARADHA PATTERSONHailey Primary Care Unavailable CAUSEY, JAE PATTERSONHailey Primary Care Unavailable EH COLON Referring Unavailable CAUSEY, JAE PATTERSONHailey Primary Care Unavailable CAUSEY, JAE PATTERSONHailey Primary Care Unavailable TANIA CEDILLO Referring Unavailable CAUSEY, JAE SCHMIDTRADHA PATTERSONHailey Primary Care Unavailable TANIA CEDILLO Referring Unavailable CAUSEY, JAE PRAKASH YESENIAHailey Primary Care Unavailable TANIA CEDILLO Attending Unavailable CAUSEY, JAE PRAKASH KAJALGEREMIAS Primary Care Unavailable CAUSEY, DHARA Referring Unavailable CAUSEY, DHARA Primary Care Unavailable CAUSEY, DHARA Primary Care Unavailable SAVANNA MELVIN Attending Unavailable MARIUM, DHARA Primary Care Unavailable SAVANNA MELVIN Referring Unavailable CAUSEY, DHARA Primary Care Unavailable SAVANNA MELVIN Attending Unavailable CAUSEY, DHARA Primary Care Unavailable CAUSEY, DHARA Referring Unavailable CAUSEY, DHARA Primary Care Unavailable CAUSEY, DHARA Referring Unavailable PROBLEMS DATE TYPE CONDITION / CODE ATTENDING STATUS [facility] 10/28/2024 Active Thrombocytosis / D75.839(ICD-10) NA Active [facility] 05/29/2024 Active Controlled type 2 diabetes mellitus without complication, without long-term current use of insulin (HCC) / E11.9(ICD-10) NA Active [facility] 09/04/2023 Active Elevated LDL cholesterol level / E78.00(ICD-10) NA Active [facility] 06/21/2009 Active Essential hypertension, benign / I10(ICD-10) NA Active [facility] 10/07/2024 Admitting Diagnosis Presence of other vascular implants and grafts / Z95.828(ICD-10) TANIA CEDILLO Active [facility] 08/28/2024 Active S/P aortic aneur ysm repair / Z98.890(ICD-10) SAVANNA MELVIN Active [facility] 08/28/2024 Active S/P aortic aneur ysm repair / Z86.79(ICD-10) SAVANNA MELVIN Active [facility] 08/28/2024 Active Bilateral lower extremity edema / R60.0(ICD-10) SAVANNA MELVIN Bucky Active [facility] 08/28/2024 Active Palpitations / R00.2(ICD-10) SAVANNA MELVIN Bucky Active [facility] 08/28/2024 Active Dyspnea on exert ion / R06.09(ICD-10) SAVANNA MELVIN Active [facility] 08/28/2024 Active Positional lightheadedness / R42(ICD-10) SAVANNA MELVIN Bucky Active [facility] 08/28/2024 Active Venous insuffici ency / I87.2(ICD-10) SAVANNA MLEVIN Active [facility] 08/28/2024 Active Weakness / R53.1(ICD-10) SAVANNA MELVIN Bucky Active [facility] 08/28/2024 Active Pleural effusion / J90(ICD-10) SAVANNA MELVIN Active [facility] 08/28/2024 Active Blood loss anemi a / D50.0(ICD-10) SAVANNA MELVIN Active [facility] 08/27/2024 Admitting Diagnosis Nurse Visit / FREETEXT() NA [facility] 07/29/2024 Admitting Diagnosis Shortness of breath / R06.02(ICD-10) NA [facility] 07/29/2024 Admitting Diagnosis Frequency of micturition / R35.0(ICD-10) NA [facility] 07/29/2024 Admitting Diagnosis Encounter for other preprocedural examination / Z01.818(ICD-10) BECKY ARMENTA [facility] 07/23/2024 Active Screening mammog adilson for breast cancer / Z12.31(ICD-10) NA [facility] 06/24/2024 Admitting Diagnosis Aneurysm of the ascending aorta, without rupture (CMS-HCC) / I71.21(ICD-10) [facility] 06/09/2024 Admitting Diagnosis Thoracic aortic ectasia (CMS-HCC) / I77.810(ICD-10) FLY BLUE [facility] 05/28/2024 Admitting Diagnosis Nonrheumatic mitral (valve) insufficiency / I34.0(ICD-10) [facility] 05/28/2024 Admitting Diagnosis Nonrheumatic tricuspid (valve) insufficiency / I36.1(ICD-10) [facility] 05/28/2024 Admitting Diagnosis Nonrheumatic aortic (valve) insufficiency / I35.1(ICD-10) [facility] PROCEDURES No Procedure Records Found RESULTS ALBUMIN/CREATININE RATIO, URINE Collect ed: 10/28/2024 8:10 AM Status: F Source: [facility] Order Comment: Specimen Type : URINE SPECIMEN Ordering Facility: [facility] Address: [address] [place] [address] TYPE CODE TESTS RESULT OUT OF RANGE REFERENCE UNITS LAB 2161-8(LOINC) Creat Ur-mCnc 287.1 20.0-300.0 m g/dL LAB 05509-4(LOINC ) Microalbumin Ur-mCnc 87.4 mg/L LAB 9318-7(LOINC) Albumin/Creat Ur 30 High <30 mg/g Result Comment: Adult Male a nd Female Nephrotic Criteria: <30 mg/g is considered normal to mildly increased 30-300 mg/g is considered moderately increased >300 mg/g is considered severely increased KDIGO. (2013). KDIGO 2012 Clinical Practice Guideline for the Evaluation and Management of Chronic Kidney Disease. Official Journal of the International Society of Nephrology, 3(1), 1-150. Performed By: #### UACR #### [facility] CLIA [id number] [address] [place] [id number] [place] CBC W AUTO DIFF BLD Collected: 10/28/2024 8:[address] atus: F Source: [facility] Order Comment: Specimen Type : BLOOD SPECIMEN Ordering Facility: [facility] Address: [address] [place] [address] TYPE CODE TESTS RESULT OUT OF RANGE REFERENCE UNITS LAB 6690-2(LOINC) WBC # Bld Auto 8.22 3.70-11.00 k/uL LAB 789-8([facility]) RBC # Bld Auto 4.55 3.90-5.20 m/ uL LAB 718-7([facility]) Hgb Bld-mCnc 13.0 11.5-15.5 g/dL LAB 4544-3([facility]) Hct VFr Bld Auto 42.0 36.0-46.0 % LAB 787-2([facility]) MCV RBC Auto 92.3 80.0-100.0 fL LAB 785-6([facility]) MCH RBC Qn Auto 28.6 26.0-34.0 p g LAB 786-4([facility]) MCHC RBC Auto-mCnc 31.0 30.5-36.0 g/dL LAB 14528-3([facility]) RDW RBC-Rto 16.9 High 11.5-15.0 % LAB 777-3([facility]) Platelet # Bld Auto 397 150-400 k/uL LAB 79062-4([facility]) PMV Bld Auto 10.4 9.0-12.7 fL LAB 770-8([facility]) Neutrophils/leuk NFr Bld Auto 56.6 % LAB 751-8([facility]) Neutrophils # Bld Auto 4.66 1.45-7.50 k/uL LAB 736-9([facility]) Lymphocytes/leuk NFr Bld Auto 29.0 % LAB 731-0([facility]) Lymphocytes # Bld Auto 2.38 1.00-4.00 k/uL LAB 5905-5([facility]) Monocytes/leuk NFr Bld Auto 10.7 % LAB 742-7([facility]) Monocytes # Bld Auto 0.88 High <0.87 k/uL LAB 713-8([facility]) Eosinophil/leuk NFr Bld Auto 2.6 % LAB 711-2([facility]) Eosinophil # Bld Auto 0.21 <0.46 k/uL LAB 706-2([facility]) Basophils/leuk NFr Bld Auto 0.7 % LAB 704-7([facility]) Basophils # Bld Auto 0.06 <0.11 k/uL LAB 18479-4([facility]) Imm Granulocytes/celena k NFr Bld Auto 0.4 % LAB 91533-8([facility]) Imm Granulocytes # Bld Auto 0.03 <0.10 k/uL LAB 09775-3([facility]) nRBC/100 WBC Bld-Rto 0.0 /100 WBC LAB 771-6([facility]) nRBC # Bld Auto <0.01 <0.01 k/u L LAB 89392-2([facility]) Differential method Bld Auto Performed By: #### 75524-5 # ### [facility] CLIA [id number] [address] [place] [address] [place] DEPRECATED HGB A1C BLD Collected: 10/28 8:04 AM Status: F Source: [facility] Order Comment: Specimen Type : BLOOD SPECIMEN Ordering Facility: [facility] Address: [address] [place] [address] TYPE CODE TESTS RESULT OUT OF RANGE REFERENCE UNITS LAB 4548-4([facility]) HbA1c MFr Bld 5.3 4.3-5.6 % Result Comment: [place] [employer] betes Association guidelines indicate that patients with HgbA1c in the range 5.7-6.4% are at increased risk for development of diabetes, and intervention by lifestyle modification may be beneficial. HgbA1c greater or equal to 6.5% is considered diagnostic of diabetes. LAB 23701-1([facility]) Est. average glucose Bld gHb Est-mCnc 105 mg/dL Result Comment: eAG: (Estima jose average glucose) is a calculated value from HgbA1c and is patient financial representative of the average blood glucose level in the last 2-3 month period. Performed By: #### 44908-2 # ### [facility] CLIA [id number] [address] [place] [address] [place] COMP METAB 2000 PNL SERPL Collected: 8:04 AM Status: F Source: [facility] Order Comment: Specimen Type : BLOOD SPECIMEN Ordering Facility: [facility] Address: [address] [place] [address] TYPE CODE TESTS RESULT OUT OF RANGE REFERENCE UNITS LAB 2885-2(LOINC) Prot SerPl-mCnc 7.4 6.3-8.0 g/dL LAB 1751-7(LOINC) Albumin SerPl-mCnc 4.0 3.9-4.9 g/dL LAB 24114-0(LOINC) Calcium SerPl-mCnc 10.0 8.5-10.2 mg/dL LAB 1975-2(LOINC) Bilirub SerPl-mCnc 0.4 0.2-1.3 mg/dL LAB 6768-6(LOINC) ALP SerPl-cCnc 95 34-123 U/L LAB 1920-8(LOINC) AST SerPl-cCnc 27 13-35 U/L LAB 1742-6(LOINC) ALT SerPl-cCnc 24 7-38 U/L LAB 2345-7(LOINC) Glucose SerPl-mCnc 105 High 74-99 mg/dL Result Comment: The [place] Diabetes Association (ADA) provides guidance for cutoff values for fasting glucose and random glucose. The ADA defines fasting as no caloric intake for at least 8 hours. Fasting plasma glucose results between 100 to 125 mg/dL indicate increased risk for diabetes (prediabetes). Fasting plasma glucose results greater than or equal to 126 mg/dL meet the criteria for diagnosis of diabetes. In the absence of unequivocal hyperglycemia, results should be confirmed by repeat testing. In a patient with classic symptoms of hyperglycemia or hyperglycemic crisis, random plasma glucose results greater than or equal to 200 mg/dL meet the criteria for diagnosis of diabetes. Reference: Standards of Medical Care in Diabetes 2016, [place] Diabetes Association. Diabetes Care. 2016.39(Suppl 1). LAB 3094-0(LOINC) BUN SerPl-mCnc 34 High 7-21 mg/ dL LAB 2160-0(LOINC) Creat SerPl-mCnc 0.99 High 0.58-0.96 mg/dL LAB 2951-2(LOINC) Sodium SerPl-sCnc 138 136-144 mmol/L LAB 2823-3(LOINC) Potassium SerPl-sCnc 4.4 3.7-5.1 mmol/L LAB 2075-0(LOINC) Chloride SerPl-sCnc 103 98-107 mmol/L LAB 2028-9(LOINC) CO2 SerPl-sCnc 24 22-30 mmo l/L LAB 40624-2(LOINC) Anion Gap SerPl-sCnc 11 8-15 mmol/L LAB 87755-6(LOINC) Creatinine + eGFR Pnl SerPlBld 60 >=60 mL/min/1 .73m??? Result Comment: Estimated Gl omerular Filtration Rate (eGFR) is calculated using the 2020 CKD-EPI creatinine equation. This equation utilizes serum creatinine, sex, and age as parameters. The creatinine assay has traceable calibration to isotope dilution-mass spectrometry. Refer to KDIGO guidelines for clinical interpretation. In patients with unstable renal function, e.g. those with acute kidney injury, the eGFR may not accurately reflect actual GFR. Performed By: #### 32110-8, 2276-4, 36311-7 #### [facility] CLIA [id number] [address] [place] [address] [place] LIPID 1996 PNL SERPL Collected: 025 8:04 AM Status: F Source: [facility] Order Comment: Specimen Type : BLOOD SPECIMEN Ordering Facility: [facility] Address: [address] [place] [address] TYPE CODE TESTS RESULT OUT OF RANGE REFERENCE UNITS LAB 2093-3(LOINC) Cholest SerPl-mCnc 142 <200 mg/dL Result Comment: <200 mg/dL, Desirable 200-239 mg/dL, Borderline high >239 mg/dL, High LAB 2571-8(LOINC) Trigl SerPl-mCnc 100 <150 mg/dL Result Comment: <150 mg/dL, Normal 150-199 mg/dL, Borderline high 200-499 mg/dL, High >499 mg/dL, Very high LAB 2085-9(LOINC) HDLc SerPl-mCnc 45 >39 mg/dL Result Comment: 40-59 mg/dL, Acceptable >59 mg/dL, High: Negative risk factor for coronary heart disease <40 mg/dL, Low: Positive risk factor for coronary heart disease LAB 98392-4(LOINC) NonHDLc SerPl-mCnc 97 <130 mg/dL Result Comment: <130 mg/dL, Optimal 130-159 mg/dL, Near optimal/above optimal 160-189 mg/dL, Borderline high 190-219 mg/dL, High >219 mg/dL, Very high Secondary prevention optimal non HDL Cholesterol levels are recommended to be <100 mg/dL LAB FT FASTING TIME 12 hrs LAB 42934-2(LOINC) VLDLc SerPl Calc-mCnc 20 <30 mg/dL LAB 9830-1(LOINC) Cholest/HDLc SerPl 3.16 <5.10 LAB 2089-1(LOINC) LDLc SerPl-mCnc 77 <100 mg/dL Result Comment: <100 mg/dL, Optimal 100-129 mg/dL, Near optimal/above optimal 130-159 mg/dL, Borderline high 160-189 mg/dL, High >189 mg/dL, Very high Secondary prevention optimal LDL Cholesterol levels are recommended to be < 70 mg/dL LAB 76068-8(LOINC) LDLc/HDLc SerPl 1.71 <2.54 Result Comment: Reference: 1. National Cholesterol Education Program ATP III Guideline At-A-Glance Quick Desk Reference: National Heart, Lung, and Blood [place]. National Institutes of Health. 2001: NIH Publication No. 01-3305. 2. An International Atherosclerosis Society position paper: global recommendations for the management of dyslipidemia: executive summary, Atherosclerosis. 2014: 232(2):410-413. Performed By: #### 95072-8, 2276-4, 60645-5 #### [facility] CLIA [id number] [address] [place] [address] [place] FERRITIN SERPL-MCNC Collected: 10/28/19 8:04 AM Status: F Source: [facility] Order Comment: Specimen Type : BLOOD SPECIMEN Ordering Facility: [facility] Address: [address] [place] [address] TYPE CODE TESTS RESULT OUT OF RANGE REFERENCE UNITS LAB 2276-4([facility]) Ferritin SerPl-mCnc 107.0 14.7-205.1 ng/mL Performed By: #### 36440-6, 2276-4, 71230-8 #### [facility] CLIA [id number] [address] [place] [address] [place] PROGRESS Observed: 10/13/2024 12:34 PM Status: COMPLETED Source: [facility] HNO ID: [id number] Author: SAVANNA MELVIN APRN.CNP Service: ? Author Type: Nurse Practitioner Type: Progress Notes Filed: 10/13/2024 12:52 Note Text: Bob Jacob is a 73 year old female here for a Medicare wellness visit. Medicare Health Risk Assessment General Health Good Exercise: Minutes/Day 20 min Exercise: Days/Week 7 days Alcohol: Daily Use Never Alcohol: Drinks/Day Patient does not drink Alcohol: 6 or more drinks Never Feel off balance No Concerns: Teeth/Dentures No Concerns: Sexual function No Troubled by feelings None of the above Frequency: Eating healthy diet Nearly every day ADLs requiring help None of the above Safety precautions in home/vehicle Yes Smoke, vape, chews tobacco No Difficulty hearing Yes Difficulty seeing No Current Providers Specialists: I have reviewed specialist-related care of the patient in the medical record. Current care team: Patient Care Team: Jae Causey MD as PCP - General (Internal Medicine) Savanna Melvin APRN.CNP as Vault Teller (Internal Medicine) Dr. Fleming-podiatry Dr. Moon-general surgeon Outside specialists seen: [facility], [facility]-Dr. Goldberg, Medical/Family history review Reviewed and updated problem list, medical/surgical/family/social history, medications, and allergies. Opioid use review Opioid Medications (last 90 days) 08/22/2024 Opioid Medications oxycodone HCl 5 mg, ORAL, EVERY 4 HOURS NEEDED, Until 08/22/24 at 1218, pain - breakthrough -Discontinued Details Hospital medication Anxiety/Depression screening Recommendation: no further intervention at this time Cognitive screening Mini Cog Score: 5 Cognitive screening reviewed and No further action needed (score 3-5). Functional Observation Was the patient's Timed Up AND Go test unsteady or >= 12 seconds? No Advance Care Planning Patient was not able to provide a surrogate decision maker or written advance directives Measurements BP 114/70 Pulse 80 Resp 12 Ht 172 cm (5' 7.72") Wt 69.1 kg (152 lb 5.4 oz) SpO2 96% BMI 23.36 kg/m? Vision Screening: Follows with optometry/ophthalmology Assessment/Plan Medicare annual wellness visit, subsequent (Z00.00) - Counseled on healthy diet and regular exercise - Fall avoidance information provided - Personalized prevention plan provided Additional Concerns The following concerns were also discussed with the patient: She is doing well since ascending aortic aneurysm repair in August. Taking medications as prescribed, denies side effects. She does not check her BP or blood sugars at home. Platelets are elevated on routine labs. Denies blood clots or unusual bleeding. PHYSICAL EXAM BP 114/70 Pulse 80 Resp 12 Ht 172 cm (5' 7.72") Wt 69.1 kg (152 lb 5.4 oz) SpO2 96% BMI 23.36 kg/m? GENERAL: well appearing, alert, in no acute distress CARDIOVASCULAR: regular rate and rhythm. No murmur, rubs or gallops. PULMONARY: clear to auscultation, no wheezing, rhonchi, or crackles ASSESSMENT/PLAN: 1. Medicare annual wellness visit, subsequent - ICD9: V70.0, ICD10: Z00.00 (primary diagnosis) See medicare wellness note 2. Thrombocytosis - ICD9: 238.71, ICD10: D75.839 Recheck in two weeks 3. Chronic renal impairment, stage 3a (HCC) - ICD9: 585.3, ICD10: N18.31 - eGFR: 61 Stable - Counseled on avoiding NSAIDs, adequate hydration - Counseled on low sodium diet 4. Aneurysm of ascending aorta without rupture (HCC) - ICD9: 441.2, ICD10: I71.21 Successful repair. Patient doing well post op 5. Controlled type 2 diabetes mellitus without complication, without long-term current use of insulin (HCC) - ICD9: 250.00, ICD10: E11.9 Diet controlled 6. Essential hypertension, benign - ICD9: 401.1, ICD10: I10 - Controlled - Continue current medications - Recommend home blood pressure monitoring, to bring results to next visit - Encouraged sodium restriction, DASH or Mediterranean diet - Recommend regular aerobic exercise 7. Hyperlipidemia, unspecified hyperlipidemia type - ICD9: 272.4, ICD10: E78.5 - Controlled - Continue current medications Savanna Melvin, EDWARD.HVAC SERVICE TECH Medical Decision Making: Problems: Moderate: 2+ stable chronic illnesses Risk: Low: Low risk from testing/treatment Medical Decision Making Level: 3 - Low CNOV Observed: 10/13/2024 12:20 PM Status: COMPLETED Source: [facility] Office Visit (INTMWS) BOB JACOB ([id number]) 1950 F Date Time Provider Department 10/13/24 12:20 PM SAVANNA MELVIN During your visit today, we recorded the following information about you: Pulse Respiration Blood pressure Weight 80/minute 12/minute 114/70 69.1 kg Height 1.72 m Savanna Melvin, EDWARD.HVAC SERVICE TECH 10/13/2024 12:52 PM Signed Bob Jacob is a 73 year old female here for a Medicare wellness visit. Medicare Health Risk Assessment General Health Good Exercise: Minutes/Day 20 min Exercise: Days/Week 7 days Alcohol: Daily Use Never Alcohol: Drinks/Day Patient does not drink Alcohol: 6 or more drinks Never Feel off balance No Concerns: Teeth/Dentures No Concerns: Sexual function No Troubled by feelings None of the above Frequency: Eating healthy diet Nearly every day ADLs requiring help None of the above Safety precautions in home/vehicle Yes Smoke, vape, chews tobacco No Difficulty hearing Yes Difficulty seeing No Current Providers Specialists: I have reviewed specialist-related care of the patient in the medical record. Current care team: Patient Care Team: Jae Causey MD as PCP - General (Internal Medicine) Savanna Melvin APRN.CNP as Vault Teller (Internal Medicine) Dr. Fleming-podiatry Dr. Moon-general surgeon Outside specialists seen: [facility], [facility]-Dr. Goldberg, Medical/Family history review Reviewed and updated problem list, medical/surgical/family/social history, medications, and allergies. Opioid use review Opioid Medications (last 90 days) 08/22/2024 Opioid Medications oxycodone HCl 5 mg, ORAL, EVERY 4 HOURS NEEDED, Until 08/22/24 at 1218, pain - breakthrough -Discontinued Details Hospital medication Anxiety/Depression screening Recommendation: no further intervention at this time Cognitive screening Mini Cog Score: 5 Cognitive screening reviewed and No further action needed (score 3-5). Functional Observation Was the patient's Timed Up AND Go test unsteady or >= 12 seconds? No Advance Care Planning Patient was not able to provide a surrogate decision maker or written advance directives Measurements BP 114/70 Pulse 80 Resp 12 Ht 172 cm (5' 7.72") Wt 69.1 kg (152 lb 5.4 oz) SpO2 96% BMI 23.36 kg/m? Vision Screening: Follows with optometry/ophthalmology Assessment/Plan Medicare annual wellness visit, subsequent () - Counseled on healthy diet and regular exercise - Fall avoidance information provided - Personalized prevention plan provided Additional Concerns The following concerns were also discussed with the patient: She is doing well since ascending aortic aneurysm repair in August. Taking medications as prescribed, denies side effects. She does not check her BP or blood sugars at home. Platelets are elevated on routine labs. Denies blood clots or unusual bleeding. PHYSICAL EXAM BP 114/70 Pulse 80 Resp 12 Ht 172 cm (5' 7.72") Wt 69.1 kg (152 lb 5.4 oz) SpO2 96% BMI 23.36 kg/m? GENERAL: well appearing, alert, in no acute distress CARDIOVASCULAR: regular rate and rhythm. No murmur, rubs or gallops. PULMONARY: clear to auscultation, no wheezing, rhonchi, or crackles ASSESSMENT/PLAN: 1. Medicare annual wellness visit, subsequent - ICD9: V70.0, ICD10: Z00.00 (primary diagnosis) See medicare wellness note 2. Thrombocytosis - ICD9: 238.71, ICD10: D75.839 Recheck in two weeks 3. Chronic renal impairment, stage 3a (HCC) - ICD9: 585.3, ICD10: N18.31 - eGFR: 61 Stable - Counseled on avoiding NSAIDs, adequate hydration - Counseled on low sodium diet 4. Aneurysm of ascending aorta without rupture (HCC) - ICD9: 441.2, ICD10: I71.21 Successful repair. Patient doing well post op 5. Controlled type 2 diabetes mellitus without complication, without long-term current use of insulin (HCC) - ICD9: 250.00, ICD10: E11.9 Diet controlled 6. Essential hypertension, benign - ICD9: 401.1, ICD10: I10 - Controlled - Continue current medications - Recommend home blood pressure monitoring, to bring results to next visit - Encouraged sodium restriction, DASH or Mediterranean diet - Recommend regular aerobic exercise 7. Hyperlipidemia, unspecified hyperlipidemia type - ICD9: 272.4, ICD10: E78.5 - Controlled - Continue current medications Savanna Melvin APRN.CNP Medical Decision Making: Problems: Moderate: 2+ stable chronic illnesses Risk: Low: Low risk from testing/treatment Medical Decision Making Level: 3 - Low Savanna Melvin APRN.CNP 10/13/2024 12:44 PM Addendum Screening schedule The following prevention plan is recommended: DTaP,Tdap,Td Vaccine(2 - Td or Tdap) due on 06/21/2019 WHAT YOU CAN DO TO PREVENT FALLS Many falls can be prevented. By making some changes, you can lower your chances of falling. Four things YOU can do to prevent falls for you* and your caregiver 1. Begin a regular exercise program Exercise is one of the most important ways to lower your chances of falling. It makes you stronger and helps you feel better. Exercises that improve balance and coordination (like Barry Chi) are the most helpful. Lack of exercise leads to weakness and increases your chances of falling. Ask your doctor or health care provider about the best type of exercise program for you. 2. Have your health care provider review your medicines Have your doctor or pharmacist review all the medicines you take, even eiat-qst-zsjpowa medicines. As you get older, the way medicines work in your body can change. Some medicines, or combinations of medicines, can make you sleepy or dizzy and can cause you to fall. 3. Have your vision checked Have your eyes checked by an eye doctor at least once a year. You may be wearing the wrong glasses or have a condition like glaucoma or cataracts that limits your vision. Poor vision can increase your chances of falling. 4. Make your home safer About half of all falls happen at home. To make your home safer: Remove things you can trip over (like papers, books, clothes, and shoes) from stairs and places where you walk. Remove small throw rugs or use double-sided tape to keep the rugs from slipping. Keep items you use often in cabinets you can reach easily without using a step stool. Have grab bars put in next to your toilet and in the tub or shower. Use non-slip mats in the bathtub and on shower floors. Improve the lighting in your home. As you get older, you need brighter lights to see well. Hang light-weight curtains or shades to reduce glare. Have handrails and lights put in on all staircases. Wear shoes both inside and outside the house. Avoid going barefoot or wearing slippers. For more information, contact: Centers for Disease Control and Prevention www.cdc.gov/injury * This information may not apply if you have certain medical conditions. Allergies As of Date: 10/13/2024 Noted Allergy Reaction ADHESIVE 11/06/2018 2 - Rash Comments: Redness, swelling, blisters MELOXICAM 01/02/2024 17 - Myalgia Comments: Kidney damage HOUSE DUST MITE 08/26/2023 3 - Cough LISINOPRIL 03/09/2010 3 - Cough NORVASC (AMLODIPINE BESYLATE) 01/30/2010 7 - Swelling Comments: pedal edema Date Reviewed: 10/13/2024 Reviewed by: Savanna Melvin, SIGHT EFFECTS SPECIALIST.HVAC SERVICE TECH - Fully Assessed Reason for Visit: Medicare Wellness Exam [4060] Primary Visit Diagnosis:Medicare annual wellness visit, subsequent [Z00.00] Other Visit Diagnoses:Thrombocytosis [D75.839] Chronic renal impairment, stage 3a (HCC) [N18.31] Aneurysm of ascending aorta without rupture (HCC) [I71.21] Controlled type 2 diabetes mellitus without complication, without long-term current use of insulin (HCC) [E11.9] Essential hypertension, benign [I10] Hyperlipidemia, unspecified hyperlipidemia type [E78.5] Order(s):ADVANCE CARE PLAN DISCUSSION [1305297] Order #: [id number]: 1 COMPLETE BLOOD COUNT AND DIFFERENTIAL [SQCBCDIF] Order #: [id number] FUTURE FERRITIN [SQFERR] Order #: [id number] FUTURE Prescriptions as of 10/13/2024 - aspirin, enteric coated (ASPIRIN, ENTERIC COATED) 81 mg EC tablet Take 81 mg by mouth once daily. - multivitamin (VITAMIN A DAY ORAL) Take 3,000 mcg by mouth once daily. - fluticasone (FLONASE) 50 mcg/actuation nasal spray Use 1 Moro in each nostril once daily. - furosemide (LASIX) 40 mg tablet Take 40 mg by mouth once daily. - loratadine 10 mg dissolvable tablet Take 10 mg by mouth. - polyethylene glycol 3350 17 gram packet Take 17 g by mouth at bedtime as needed. - simethicone, chewable (MYLICON) 80 mg chewable tablet Take 120 mg by mouth. - spironolactone (ALDACTONE) 25 mg tablet Take 25 mg by mouth once daily. - pravastatin (PRAVACHOL) 20 mg tablet Take 1 tablet by mouth once daily. - apixaban (ELIQUIS) 5 mg tab(s) Take 5 mg by mouth two times a day. - potassium chloride 20 mEq TbER Take 40 mEq by mouth two times a day. - Vit B Cmplx 3-FA-Vit C-Biotin tablet Take 1 tablet by mouth daily with breakfast. - gj-yfs-lguqy-calcium carb-K1 (WOMEN'S 50 PLUS MULTIVITAMIN) 400 mcg-500 mg calcium-20 mcg tab Take 1 tablet by mouth once daily. - vit C/E/Zn/coppr/lutein/zeaxan (PRESERVISION AREDS-2 ORAL) Take 1 tablet by mouth two times a day. - VITAMIN A ORAL Take 400 mg by mouth once daily. 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] 03/13/2011 Symptomatic menopausal or female climacteric st*07/25/2011 08/26/2023 Bunion of great toe of left foot [M21.612] 07/18/2013 07/27/2014 History of colonoscopy with polypectomy [Z98.89*07/28/2015 08/26/2023 History of breast cancer [Z85.3] 06/05/2018 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] 06/05/2018 Adenoma of ascending colon [D12.2] 07/01/2018 Aneurysm of ascending aorta without rupture (HC*08/27/2018 Impaired fasting glucose [R73.01] 07/27/2019 05/29/2024 Diverticulosis [K57.90] 07/27/2019 08/26/2023 Overweight (BMI 25.0-29.9) [E66.3] 08/22/2021 Osteopenia [M85.80] 08/26/2023 Mitral valve insufficiency [I34.0] 11/29/2022 Diagnosed: 08/26/2023 Arthritis of metatarsophalangeal (MTP) joint of*08/30/2020 Elevated LDL cholesterol level [E78.00] 09/04/2023 Chronic kidney insufficiency [N18.9] 10/17/2023 Controlled type 2 diabetes mellitus without com*05/29/2024 S/P aortic aneurysm repair [Z98.890, Z86.79] 08/28/2024 Chronic renal impairment, stage 3a (HCC) [N18.3*10/13/2024 Other instructions from your clinician: Screening schedule The following prevention plan is recommended: DTaP,Tdap,Td Vaccine(2 - Td or Tdap) due on 06/21/2019 WHAT YOU CAN DO TO PREVENT FALLS Many falls can be prevented. By making some changes, you can lower your chances of falling. Four things YOU can do to prevent falls for you* and your caregiver 1. Begin a regular exercise program Exercise is one of the most important ways to lower your chances of falling. It makes you stronger and helps you feel better. Exercises that improve balance and coordination (like Barry Chi) are the most helpful. Lack of exercise leads to weakness and increases your chances of falling. Ask your doctor or health care provider about the best type of exercise program for you. 2. Have your health care provider review your medicines Have your doctor or pharmacist review all the medicines you take, even exlk-lof-jdvavgd medicines. As you get older, the way medicines work in your body can change. Some medicines, or combinations of medicines, can make you sleepy or dizzy and can cause you to fall. 3. Have your vision checked Have your eyes checked by an eye doctor at least once a year. You may be wearing the wrong glasses or have a condition like glaucoma or cataracts that limits your vision. Poor vision can increase your chances of falling. 4. Make your home safer About half of all falls happen at home. To make your home safer: Remove things you can trip over (like papers, books, clothes, and shoes) from stairs and places where you walk. Remove small throw rugs or use double-sided tape to keep the rugs from slipping. Keep items you use often in cabinets you can reach easily without using a step stool. Have grab bars put in next to your toilet and in the tub or shower. Use non-slip mats in the bathtub and on shower floors. Improve the lighting in your home. As you get older, you need brighter lights to see well. Hang light-weight curtains or shades to reduce glare. Have handrails and lights put in on all staircases. Wear shoes both inside and outside the house. Avoid going barefoot or wearing slippers. For more information, contact: Centers for Disease Control and Prevention www.cdc.gov/injury * This information may not apply if you have certain medical conditions. Medications Discontinued During This Encounter Prescriptions - amiodarone (PACERONE) 200 mg tablet (Discontinued) Take 400 mg by mouth two times a day. for 10 days and then 200 mg daily for 20 days - metoprolol succinate ER (TOPROL XL) 25 mg 24 hr tablet (Discontinued) Take 25 mg by mouth two times a day. Disposition: Return in about 6 months (around 04/12/2025) for routine follow-up. Follow-up and Disposition History for Encounter Date Provider Department Center 10/13/2024 [id number] MELVIN [facility] Encounter Status:Closed by SAVANNA MELVIN on 10/13/24 DEPRECATED HGB A1C BLD Collected: 10/12 8:54 AM Status: F Source: [facility] Order Comment: Specimen Type : BLOOD SPECIMEN Ordering Facility: [facility] Address: [address] [place], [place] [id number] TYPE CODE TESTS RESULT OUT OF RANGE REFERENCE UNITS LAB 4548-4(LOINC) HbA1c MFr Bld 5.3 4.3-5.6 % Result Comment: [place] [employer] betes Association guidelines indicate that patients with HgbA1c in the range 5.7-6.4% are at increased risk for development of diabetes, and intervention by lifestyle modification may be beneficial. HgbA1c greater or equal to 6.5% is considered diagnostic of diabetes. LAB 32451-8(INC) Est. average glucose Bld gHb Est-mCnc 105 mg/dL Result Comment: eAG: (Estima jose average glucose) is a calculated value from HgbA1c and is patient financial representative of the average blood glucose level in the last 2-3 month period. Performed By: #### 56104-4 # ### [facility] CLIA [id number] [address] [place], [place] [address] [address] STATES OF [facility] COMP METAB 2000 PNL SERPL Collected: 8:54 AM Status: F Source: [facility] Order Comment: Specimen Type : BLOOD SPECIMEN Ordering Facility: [facility] Address: [address] [place] [address] TYPE CODE TESTS RESULT OUT OF RANGE REFERENCE UNITS LAB 2885-2(LOINC) Prot SerPl-mCnc 7.2 6.3-8.0 g/dL LAB 1751-7(LOINC) Albumin SerPl-mCnc 4.0 3.9-4.9 g/dL LAB 03937-9(LOINC) Calcium SerPl-mCnc 9.3 8.5-10.2 mg/dL LAB 1975-2(LOINC) Bilirub SerPl-mCnc 0.3 0.2-1.3 mg/dL LAB 6768-6(INC) ALP SerPl-cCnc 100 34-123 U/L LAB 1920-8(LOINC) AST SerPl-cCnc 28 13-35 U/L LAB 1742-6(LOINC) ALT SerPl-cCnc 27 7-38 U/L LAB 2345-7(LOINC) Glucose SerPl-mCnc 148 High 74-99 mg/dL Result Comment: The [place] Diabetes Association (ADA) provides guidance for cutoff values for fasting glucose and random glucose. The ADA defines fasting as no caloric intake for at least 8 hours. Fasting plasma glucose results between 100 to 125 mg/dL indicate increased risk for diabetes (prediabetes). Fasting plasma glucose results greater than or equal to 126 mg/dL meet the criteria for diagnosis of diabetes. In the absence of unequivocal hyperglycemia, results should be confirmed by repeat testing. In a patient with classic symptoms of hyperglycemia or hyperglycemic crisis, random plasma glucose results greater than or equal to 200 mg/dL meet the criteria for diagnosis of diabetes. Reference: Standards of Medical Care in Diabetes 2016, [place] Diabetes Association. Diabetes Care. 2016.39(Suppl 1). LAB 3094-0(LOINC) BUN SerPl-mCnc 35 High 7-21 mg/ dL LAB 2160-0(LOINC) Creat SerPl-mCnc 0.98 High 0.58-0.96 mg/dL LAB 2951-2(LOINC) Sodium SerPl-sCnc 138 136-144 mmol/L LAB 2823-3(LOINC) Potassium SerPl-sCnc 4.1 3.7-5.1 mmol/L LAB 2075-0(LOINC) Chloride SerPl-sCnc 103 98-107 mmol/L LAB 2028-9(LOINC) CO2 SerPl-sCnc 21 Low 22-30 mmo l/L LAB 12924-8(LOINC) Anion Gap SerPl-sCnc 14 8-15 mmol/L LAB 11515-5(LOINC) Creatinine + eGFR Pnl SerPlBld 61 >=60 mL/min/1 .73m??? Result Comment: Estimated Gl omerular Filtration Rate (eGFR) is calculated using the 2020 CKD-EPI creatinine equation. This equation utilizes serum creatinine, sex, and age as parameters. The creatinine assay has traceable calibration to isotope dilution-mass spectrometry. Refer to KDIGO guidelines for clinical interpretation. In patients with unstable renal function, e.g. those with acute kidney injury, the eGFR may not accurately reflect actual GFR. Performed By: #### 33034-8, LIPNF #### [facility] CLIA [id number] [address] [place] [address] [place] LIPID PANEL, NONFASTING Collected: 10/12/2024 8:54 AM Status: F Source: [facility] Order Comment: Specimen Type : BLOOD SPECIMEN Ordering Facility: [facility] Address: [facility] [place] [address] TYPE CODE TESTS RESULT OUT OF RANGE REFERENCE UNITS LAB CHOLNF TOTAL CHOLESTEROL NF 136 <200 mg/dL Result Comment: <200 mg/dL, Desirable 200-239 mg/dL, Borderline high >239 mg/dL, High LAB TRIGNF TRIGLYCERIDES, NF 97 <150 mg/dL Result Comment: <150 mg/dL, Normal 150-199 mg/dL, Borderline high 200-499 mg/dL, High >499 mg/dL, Very high LAB HDLNF HDL CHOLESTEROL, NF 47 >39 mg/dL Result Comment: 40-59 mg/dL, Acceptable >59 mg/dL, High: Negative risk factor for coronary heart disease <40 mg/dL, Low: Positive risk factor for coronary heart disease LAB LDLNF LDL CHOLESTEROL, NF 70 <100 mg/dL Result Comment: <100 mg/dL, Optimal 100-129 mg/dL, Near optimal/above optimal 130-159 mg/dL, Borderline high 160-189 mg/dL, High >189 mg/dL, Very high Secondary prevention optimal LDL Cholesterol levels are recommended to be < 70 mg/dL LAB NOHDLN NON HDL CHOL, NF 89 <130 mg/dL Result Comment: <130 mg/dL, Optimal 130-159 mg/dL, Near optimal/above optimal 160-189 mg/dL, Borderline high 190-219 mg/dL, High >219 mg/dL, Very high Secondary prevention optimal non HDL Cholesterol levels are recommended to be <100 mg/dL LAB VLDLNF VLDL CHOLESTEROL, NF 19 <30 mg/dL LAB TCHDLN T CHOL/HDL RATIO NF 2.89 <5.10 mg/dL LAB LDLHDN LDL/HDL RATIO, NF 1.49 <2.54 mg/dL Result Comment: Reference: 1. National Cholesterol Education Program ATP III Guideline At-A-Glance Quick Desk Reference: National Heart, Lung, and Blood [place]. National Institutes of Health. 2001: NIH Publication No. 01-3305. 2. An International Atherosclerosis Society position paper: global recommendations for the management of dyslipidemia: executive summary, Atherosclerosis. 2014: 232(2):410-413. Performed By: #### 80150-1, LIPNF #### [facility] CLIA [id number] [address] [place] [address] [place] CBC PNL BLD AUTO Collected: 8:54 AM Status: F Source: [facility] Order Comment: Specimen Type : BLOOD SPECIMEN Ordering Facility: [facility] Address: [address] [place] [address] TYPE CODE TESTS RESULT OUT OF RANGE REFERENCE UNITS LAB 6690-2(INC) WBC # Bld Auto 7.37 3.70-11.00 k/uL LAB 789-8(LOINC) RBC # Bld Auto 4.43 3.90-5.20 m/uL LAB 718-7(INC) Hgb Bld-mCnc 12.9 11.5-15.5 g/dL LAB 4544-3(INC) Hct VFr Bld Auto 40.4 36.0-46.0 % LAB 787-2(LOINC) MCV RBC Auto 91.2 80.0-100.0 fL LAB 785-6(LOINC) MCH RBC Qn Auto 29.1 26.0-34.0 pg LAB 786-4(LOINC) MCHC RBC Auto-mCnc 31.9 30.5-36.0 g/dL LAB 08992-1(INC) RDW RBC-Rto 17.9 High 11.5-15.0 % LAB 777-3(LOINC) Platelet # Bld Auto 497 High 150-400 k/uL LAB 54338-2([facility]) PMV Bld Auto 10.3 9.0-12.7 fL LAB 771-6(LOINC) nRBC # Bld Auto <0.01 <0.01 k/uL Performed By: #### 63716-1 # ### [facility] CLIA [id number] [address] [place] [address] [place] ALBUMIN/CREATININE RATIO, URINE Collect ed: 10/12/2024 8:54 AM Status: F Source: [facility] Order Comment: Specimen Type : URINE SPECIMEN Ordering Facility: [facility] Address: [address] [place] [address] TYPE CODE TESTS RESULT OUT OF RANGE REFERENCE UNITS LAB 2161-8(LOINC) Creat Ur-mCnc 139.6 20.0-300.0 m g/dL LAB 26944-7(LOINC ) Microalbumin Ur-mCnc 49.4 mg/L LAB 9318-7(LOINC) Albumin/Creat Ur 35 High <30 mg/g Result Comment: Adult Male a nd Female Nephrotic Criteria: <30 mg/g is considered normal to mildly increased 30-300 mg/g is considered moderately increased >300 mg/g is considered severely increased KDIGO. (2013). KDIGO 2012 Clinical Practice Guideline for the Evaluation and Management of Chronic Kidney Disease. Official Journal of the International Society of Nephrology, 3(1), 1-150. Performed By: #### UACR #### [facility] CLIA [id number] [address] [place] [address] [place] XR CHEST 2 VIEWS Observed: 10/07/2024 3:06 PM Status: F Source: [facility] Interpreted By: Miladis Rey, STUDY: XR CHEST 2 VIEWS; 10/07/2024 3:16 pm INDICATION: Signs/Symptoms:postop. ,I71.21 Aneurysm of the ascending aorta, without rupture ([facility]) COMPARISON: 08/21/2024 ACCESSION NUMBER(S): [id number] ORDERING CLINICIAN: TANIA CEDILLO FINDINGS: Median sternotomy wires present CARDIOMEDIASTINAL SILHOUETTE: Cardiomediastinal silhouette is normal in size and configuration. LUNGS: The lungs are hyperinflated. There is bilateral small pleural effusions. Associated atelectasis. ABDOMEN: No remarkable upper abdominal findings. BONES: No acute osseous changes. IMPRESSION: 1. Bilateral small pleural effusions with atelectatic changes MACRO: None Signed by: Ayo Rey 10/08/2024 6:25 PM Dictation workstation: [id number] CT ANGIO CHEST W AND WO IV CONTRAST Observed: 09/30/2024 1:09 PM Status: F Source: [facility] Order Comment: GATED CTA BEHZAD ST PLEASE Interpreted By: Brenda Currie, STUDY: CT ANGIO CHEST W AND WO IV CONTRAST; 09/30/2024 1:25 pm INDICATION: Signs/Symptoms:s/p asc aorta replacement. ,I71.21 Aneurysm of the ascending aorta, without rupture ([facility]) COMPARISON: None. ACCESSION NUMBER(S): [id number] ORDERING CLINICIAN: TANIA CEDILLO TECHNIQUE: Using multi-detector CT technology, axial, sequential imaging with prospective gating was performed of the chest following the intravenous administration of 75 ML Omnipaque 350. For optimization of anatomic evaluation, multiplanar reconstruction, maximum intensity projections, and advanced 3-D off-line postprocessing were performed on a dedicated stand-alone workstation by the interpreting physician. FINDINGS: Potential study limitations: None. THORACIC AORTA: The patient is status post ascending aorta interposition graft placement. The sinotubular junction is postsurgical There is no evidence for acute aortic pathology, such as dissection, intramural hematoma, or contained rupture. The arch vessel branching pattern is conventional. All of the arch branch vessels appear widely patent in their proximal portions. Visualized proximal abdominal aorta is normal. The celiac trunk, SMA and bilateral renal arteries are normal in caliber. COIL TESTER MEASUREMENTS OF THE AORTA: Annulus x cm Root (Sinus of Valsalva) 3.4 cm Sinotubular junction 3.4 cm Mid ascending ascending interposition graft measures 3.0 x 3.0 cm Distal ascending 3.9 x 4.0 cm Distal descending (hiatus) 2.5 cm CORONARY ARTERIES: The examination is not optimized for assessment of the coronary arteries. Normal coronary artery origins. Right dominant system. PULMONARY ARTERIES: The central pulmonary arteries appear normal (MPA- cm, RPA- cm, LPA- cm). SYSTEMIC AND PULMONARY VEINS: Normal systemic venous and pulmonary venous return. The SVC and IVC are of normal caliber. Normal pulmonary venous anatomy. CARDIAC CHAMBERS: Normal atrioventricular and ventriculoarterial concordance. LEFT ATRIUM: Normal size the patient is status post left atrial appendage occlusion device placement.) RIGHT ATRIUM: Normal size (Area- cm2) INTERATRIAL SEPTUM: Intact. LEFT VENTRICLE: Normal size (YA- cm) RIGHT VENTRICLE: Normal size (YA- cm) INTERVENTRICULAR SEPTUM: Intact. AORTIC VALVE: The aortic valve is trileaflet in morphology. No calcifications. MITRAL VALVE: No thickening/calcification. PERICARDIUM: There is no pericardial effusion or thickening. CHEST: Trachea and central airways are patent. No endobronchial lesion. There are moderate-sized bilateral pleural effusions. There is bibasilar atelectasis. There is no significant axillary or mediastinal lymph nodes. No hilar adenopathy. There is postsurgical perigraft mediastinal fluid. Visualized thyroid is intact. Esophagus is normal. UPPER ABDOMEN: Limited imaging through the upper abdomen reveals no abnormalities of the visualized organs. BONE AND SOFT TISSUE: No suspicious osseous abnormality There is mild soft tissue anasarca. Postsurgical changes consistent with recent median sternotomy. IMPRESSION: 1. Findings consistent with postsurgical changes of valve sparing ascending aorta interposition graft. 2. There is a small amount of postsurgical perigraft fluid without evidence of leak/extravasation. 3. Postsurgical moderate-sized bilateral pleural effusions with basilar atelectasis. MACRO: None Signed by: Hung Currie 09/30/2024 3:06 PM Dictation workstation: [id number] CNOV Observed: 08/28/2024 1:20 PM Status: COMPLETED Source: [facility] Office Visit (INTMWS) BOB JACOB ([id number]) 1950 F Date Time Provider Department 08/28/24 1:20 PM SAVANNA MELVIN INTMWS During your visit today, we recorded the following information about you: Temperature Pulse Blood pressure Weight 98.3 degrees 66/minute 122/68 79.4 kg Savanna Melvin, SIGHT EFFECTS SPECIALIST.HVAC SERVICE TECH 08/28/2024 2:06 PM Signed CC: Patient presents with: Hospital F/U: [facility] Dr. Cedillo. Has been having some dizziness off and on. SAVANNA Bob Jacob is a 73 year old female who presents today for above. She was admitted to after elective outpatient ascending aortic aneurysm repair on 08/10. Postoperative course was complicated by new LBBB, vasoplegia requiring pressor support, arrhythmia, anemia requiring transfusion, acute hypoxic respiratory failure secondary to moderate ARDS requiring Airvo and large left pleural effusion s/p thoracentesis (08/18 for 850cc). She was discharged home on 08/22 with new prescriptions for amiodarone, Eliquis, aspirin, and Lasix. She was also given a prescription for oxycodone for post operative pain control. Metoprolol dose was was decreased from 100 mg to 25 mg. Irbesartan and Aldactone were discontinued. [facility]. She is scheduled for follow-up with the secretary of state on 09/03 and the surgeon on 10/07. Today patient reports she is slowly improving as far as energy level and appetite however both are still poor. She is supplementing with protein shakes. BLE edema is staying about the same, worse by the end of the day and a little better in the morning. She has some positional lightheadedness that is fleeting and denies feeling faint or passing out. SOB with exertion is improving. Last night she had an episode of palpitations causing her breath to "catch" but resolved quickly. Incisional pain is controlled and manageable with Tylenol. BLE edema Review of Systems Constitutional: Negative for chills, diaphoresis, fever and unexpected weight change. HENT: Negative for trouble swallowing. Respiratory: Negative for cough, choking and wheezing. Cardiovascular: Negative for chest pain. No PND or orthopnea Gastrointestinal: Negative for abdominal pain, blood in stool, constipation, diarrhea, nausea and vomiting. Genitourinary: Negative for decreased urine volume, difficulty urinating, dysuria, frequency, hematuria and urgency. Psychiatric/Behavioral: Negative for dysphoric mood. The patient is not nervous/anxious. 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 Diverticulitis Diverticulosis 07/27/2019 Eczematous dermatitis of eyelid 07/26/2009 Essential hypertension, benign History of colonoscopy with polypectomy 08/27/2013 tubular adenoma, patient prefers prep with least amount of sodium Impaired fasting glucose 07/27/2019 Mitral valve insufficiency 11/29/2022 Osteopenia 08/26/2023 PAST SURGICAL HISTORY Procedure Laterality Date BIOPSY BREAST OPEN INCISIONAL 1986 Left Breast cyst BX BREAST PERC VACUUM/ROTN 03/07/2011 Right - DCIS COLONOSCOPY 2004 Per repeat in 10 yrs (1-2013) COLONOSCOPY FLX DX W/COLLJ SPEC WHEN PFRMD 08/08/2018 Colonoscopy, patient prefers prep with least amount of sodium DIAGNOSIS/HISTORY Left 12/15/1997 acoustic neuroma unilateral, 48 EXC BREAST LES PREOP PLMT RAD MARKER OPEN 1 LES 04/12/2011 RIght Needle Loc - Excisional EYE SURGERY HX 10/10/2013 right/left cararact surgery HEMORRHOIDECTOMY XTRNL 2/> COLUMN/GROUP 1999 PUNCTURE ASPIRATION CYST BREAST 1992 Right breast VAGINAL HYSTERECTOMY UTERUS 250 GM/< 10/10/2000 Hysterectomy, vaginal ALLERGIES Adhesive, Meloxicam, House Dust Mite, Lisinopril, and Norvasc [Amlodipine Besylate] MEDICATIONS dh-bpe-fwolv-calcium carb-K1 (WOMEN'S 50 PLUS MULTIVITAMIN) 400 mcg-500 mg calcium-20 mcg tab Take 1 tablet by mouth once daily. metoprolol succinate ER (TOPROL XL) 100 mg Take 1 tablet by mouth once daily. Biotin 10,000 mcg cap Take 1 capsule by mouth once daily. irbesartan (AVAPRO) 300 mg tablet Take 1 tablet by mouth once daily. pravastatin (PRAVACHOL) 20 mg tablet Take 1 tablet by mouth once daily. vit C/E/Zn/coppr/lutein/zeaxan (PRESERVISION AREDS-2 ORAL) Take 1 tablet by mouth two times a day. spironolactone (ALDACTONE) 50 mg tablet Take 1 tablet by mouth once daily. Per [facility] VITAMIN A ORAL Take 400 mg by mouth once daily. olopatadine hcl(PATANOL 0.1 % EYE DROPS) 1 to 2 drops to each eye twice daily as needed FAMILY HISTORY Problem Relation Age of Onset Cancer Mother small intestine Hypertension Mother Ischemic Heart Disease Father Prostate Cancer Father Hypertension Father Cervical Cancer Sister Thyroid Cancer Sister Breast Cancer Sister Thyroid Cancer Sister Diabetes Brother Hypertension Brother Leukemia Maternal Grandmother other (Uterine fibroids) Daughter Breast Cancer Daughter Graves Disease Daughter Breast Cancer Paternal Aunt Social History Tobacco Use Smoking status: Never Smokeless tobacco: Never Vaping Use Vaping status: Never Used Substance Use Topics Alcohol use: Yes Alcohol/week: 2.0 standard drinks of alcohol Types: 2 Glasses of wine per week Comment: 1-2/week Drug use: No BP 122/68 Pulse 66 Wt 79.4 kg (175 lb) SpO2 96% BMI 26.61 kg/m? Physical Exam Vitals reviewed. Constitutional: General: She is not in acute distress. Appearance: She is ill-appearing. She is not toxic-appearing. Cardiovascular: Rate and Rhythm: Regular rhythm. Bradycardia present. Pulses: Normal pulses. Heart sounds: Normal heart sounds. No murmur heard. Comments: 2+ pitting edema bilateral lower legs. No tenderness or erythema. Pulmonary: Effort: Pulmonary effort is normal. No tachypnea. Breath sounds: Decreased breath sounds (bibasilar) present. No wheezing, rhonchi or rales. Abdominal: General: Bowel sounds are normal. There is no distension. Tenderness: There is no abdominal tenderness. Skin: General: Skin is warm and dry. Neurological: Mental Status: She is alert. Psychiatric: Mood and Affect: Mood normal. I have reviewed the patient?s records from including diagnostic testing performed, their discharge medications, and my assessment and plan with the patient and any family members present at today?s visit. ASSESSMENT/PLAN: 1. Bilateral lower extremity edema - ICD9: 782.3, ICD10: R60.0 (primary diagnosis) Dependent edema. Keep legs elevated and wear compression socks. If OTC socks are not effective she should fill prescription that was given to her today - COMPRESSION STOCKINGS 2. Palpitations - ICD9: 785.1, ICD10: R00.2 Patient reports she had a few episodes of A-fib during admission. It is possible this is what she was experiencing last night however it was fleeting and has not reoccurred. She should go to the ER or call 911 if episodes become persistent or more intense. Recommend discussing further with her secretary of state at appointment on 09/03 3. Dyspnea on exertion - ICD9: 786.09, ICD10: R06.09 Multifactorial, no worsening. Continue with incentive spirometer and activity as tolerated. 4. Positional lightheadedness - ICD9: 780.4, ICD10: R42 Multifactorial including medications, recent surgery/hospitalizations, anemia 5. Venous insufficiency - ICD9: 459.81, ICD10: I87.2 See #1 - COMPRESSION STOCKINGS 6. Weakness - ICD9: 780.79, ICD10: R53.1 improving 7. Pleural effusion - ICD9: 511.9, ICD10: J90 Chest x-ray on 08/22 indicated stable bilateral effusions. Continue to monitor symptoms 8. S/P aortic aneurysm repair - ICD9: V45.89, ICD10: Z98.890, Z86.79 Medications and follow-ups as advised at discharge 9. Blood loss anemia - ICD9: 280.0, ICD10: D50.0 Transfused during admission, Hgb trending up at discharge. Prescription instructions reviewed with patient as applicable. Potential red flag symptoms discussed with the patient. Reviewed appropriate action plan to take if red flag symptoms occur. Patient agreeable to treatment plan. Savanna Melvin APRN.Savanna Solo APRN.CNP 08/28/2024 1:52 PM Signed Elevate your toes above your nose! Sit in a recliner with your legs up. Avoid sitting for long periods of time. Wear compression socks. Apply them first things in the morning and remove them at bedtime. If swelling does not improve with over the counter socks fill the prescription for the compression stockings you were given today at any medical supply company. Avoid sitting or standing for long periods of time If palpitations with breathing difficulty becomes more persistent, intense or does not resolve you should go to the ER or call 911 Allergies As of Date: 08/28/2024 Noted Allergy Reaction ADHESIVE 11/06/2018 2 - Rash Comments: Redness, swelling, blisters MELOXICAM 01/02/2024 17 - Myalgia Comments: Kidney damage HOUSE DUST MITE 08/26/2023 3 - Cough LISINOPRIL 03/09/2010 3 - Cough NORVASC (AMLODIPINE BESYLATE) 01/30/2010 7 - Swelling Comments: pedal edema Date Reviewed: 08/28/2024 Reviewed by: Savanna Melvin APRN.CNP - Fully Assessed Reason for Visit: Hospital F/U [57] Cmt: [facility] Dr. Cedillo. Has been having some dizziness off and on. Primary Visit Diagnosis:Bilateral lower extremity edema [R60.0] Other Visit Diagnoses:Palpitations [R00.2] Dyspnea on exertion [R06.09] Positional lightheadedness [R42] Venous insufficiency [I87.2] Weakness [R53.1] Pleural effusion [J90] S/P aortic aneurysm repair [Z98.890, Z86.79] Blood loss anemia [D50.0] Order(s):metoprolol succinate ER (TOPROL XL) 25 mg 24 hr tabletTake 1 tablet by mouth once daily.Disp: Rfl: COMPRESSION STOCKINGS [1121178] Order #: [id number] Prescriptions as of 08/28/2024 - amiodarone (PACERONE) 200 mg tablet Take 400 mg by mouth two times a day. for 10 days and then 200 mg daily for 20 days - apixaban (ELIQUIS) 5 mg tab(s) Take 5 mg by mouth two times a day. - aspirin 81 mg chewable tablet Take 81 mg by mouth once daily. - furosemide (LASIX) 20 mg tablet Take 20 mg by mouth two times a day. - potassium chloride 20 mEq TbER Take 40 mEq by mouth two times a day. - Vit B Cmplx 3-FA-Vit C-Biotin tablet Take 1 tablet by mouth daily with breakfast. - metoprolol succinate ER (TOPROL XL) 25 mg 24 hr tablet Take 1 tablet by mouth once daily. - bg-uox-kkjgt-calcium carb-K1 (WOMEN'S 50 PLUS MULTIVITAMIN) 400 mcg-500 mg calcium-20 mcg tab Take 1 tablet by mouth once daily. - pravastatin (PRAVACHOL) 20 mg tablet Take 1 tablet by mouth once daily. - vit C/E/Zn/coppr/lutein/zeaxan (PRESERVISION AREDS-2 ORAL) Take 1 tablet by mouth two times a day. - VITAMIN A ORAL Take 400 mg by mouth once daily. 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] 03/13/2011 Symptomatic menopausal or female climacteric st*07/25/2011 08/26/2023 Bunion of great toe of left foot [M21.612] 07/18/2013 07/27/2014 History of colonoscopy with polypectomy [Z98.89*07/28/2015 08/26/2023 History of breast cancer [Z85.3] 06/05/2018 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] 06/05/2018 Adenoma of ascending colon [D12.2] 07/01/2018 Aneurysm of ascending aorta without rupture (HC*08/27/2018 Impaired fasting glucose [R73.01] 07/27/2019 05/29/2024 Diverticulosis [K57.90] 07/27/2019 08/26/2023 Overweight (BMI 25.0-29.9) [E66.3] 08/22/2021 Osteopenia [M85.80] 08/26/2023 Mitral valve insufficiency [I34.0] 11/29/2022 Diagnosed: 08/26/2023 Arthritis of metatarsophalangeal (MTP) joint of*08/30/2020 Elevated LDL cholesterol level [E78.00] 09/04/2023 Chronic kidney insufficiency [N18.9] 10/17/2023 Controlled type 2 diabetes mellitus without com*05/29/2024 S/P aortic aneurysm repair [Z98.890, Z86.79] 08/28/2024 Other instructions from your clinician: Elevate your toes above your nose! Sit in a recliner with your legs up. Avoid sitting for long periods of time. Wear compression socks. Apply them first things in the morning and remove them at bedtime. If swelling does not improve with over the counter socks fill the prescription for the compression stockings you were given today at any [employer] company. Avoid sitting or standing for long periods of time If palpitations with breathing difficulty becomes more persistent, intense or does not resolve you should go to the ER or call 911 Prescriptions ordered this encounter Disp Refills Start End METOPROLOL SUCCINATE ER 25 MG TABLET* 08/28/2024 Class: Med Update Route: ORAL Sig: Take 1 tablet by mouth once daily. Medications Discontinued During This Encounter Prescriptions - spironolactone (ALDACTONE) 50 mg tablet (Discontinued) Reported on 08/28/2024 - Biotin 10,000 mcg cap (Discontinued) Reported on 08/28/2024 - irbesartan (AVAPRO) 300 mg tablet (Discontinued) Reported on 08/28/2024 - metoprolol succinate ER (TOPROL XL) 100 mg (Discontinued) Reported on 08/28/2024 Disposition: Return in about 4 weeks (around 09/25/2024) for medicare wellness exam. Follow-up and Disposition History for Encounter Date Provider Department Center 08/28/2024 [id number] MELVIN [facility]ra Encounter Status:Closed by SAVANNA MELVIN on 08/28/24 PROGRESS Observed: 08/28/2024 1:01 PM Status: COMPLETED Source: [facility] ID: [id number] Author: SAVANNA MELVIN APRN.HVAC SERVICE TECH Service: ? Author Type: Nurse Practitioner Type: Progress Notes Filed: 08/28/2024 14:06 Note Text: CC: Patient presents with: Hospital F/U: [facility] Dr. Cedillo. Has been having some dizziness off and on. HPI Bob Jacob is a 73 year old female who presents today for above. She was admitted to after elective outpatient ascending aortic aneurysm repair on 08/10. Postoperative course was complicated by new LBBB, vasoplegia requiring pressor support, arrhythmia, anemia requiring transfusion, acute hypoxic respiratory failure secondary to moderate ARDS requiring Airvo and large left pleural effusion s/p thoracentesis (08/18 for 850cc). She was discharged home on 08/22 with new prescriptions for amiodarone, Eliquis, aspirin, and Lasix. She was also given a prescription for oxycodone for post operative pain control. Metoprolol dose was was decreased from 100 mg to 25 mg. Irbesartan and Aldactone were discontinued. She had a telehealth hospital follow-up with the cardiac nurse yesterday. She is scheduled for follow-up with the secretary of state on 09/03 and the surgeon on 10/07. Today patient reports she is slowly improving as far as energy level and appetite however both are still poor. She is supplementing with protein shakes. BLE edema is staying about the same, worse by the end of the day and a little better in the morning. She has some positional lightheadedness that is fleeting and denies feeling faint or passing out. SOB with exertion is improving. Last night she had an episode of palpitations causing her breath to "catch" but resolved quickly. Incisional pain is controlled and manageable with Tylenol. BLE edema Review of Systems Constitutional: Negative for chills, diaphoresis, fever and unexpected weight change. HENT: Negative for trouble swallowing. Respiratory: Negative for cough, choking and wheezing. Cardiovascular: Negative for chest pain. No PND or orthopnea Gastrointestinal: Negative for abdominal pain, blood in stool, constipation, diarrhea, nausea and vomiting. Genitourinary: Negative for decreased urine volume, difficulty urinating, dysuria, frequency, hematuria and urgency. Psychiatric/Behavioral: Negative for dysphoric mood. The patient is not nervous/anxious. 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 08/30/2020 Controlled type 2 diabetes mellitus without complication, without long-term current use of insulin ([facility]) 05/29/2024 DCIS (ductal carcinoma in situ) 03/2011 Diverticulitis Diverticulosis 07/27/2019 Eczematous dermatitis of eyelid 07/26/2009 Essential hypertension, benign History of colonoscopy with polypectomy 08/27/2013 tubular adenoma, patient prefers prep with least amount of sodium Impaired fasting glucose 07/27/2019 Mitral valve insufficiency 11/29/2022 Osteopenia 08/26/2023 PAST SURGICAL HISTORY Procedure Laterality Date BIOPSY BREAST OPEN INCISIONAL 1987 Left Breast cyst BX BREAST PERC VACUUM/ROTN 03/07/2011 Right - DCIS COLONOSCOPY 2004 Per repeat in 10 yrs (1-2013) COLONOSCOPY FLX DX W/COLLJ SPEC WHEN PFRMD 08/08/2018 Colonoscopy, patient prefers prep with least amount of sodium DIAGNOSIS/HISTORY Left 12/15/1997 acoustic neuroma unilateral, 48 EXC BREAST LES PREOP PLMT RAD MARKER OPEN 1 LES 04/12/2011 RIght Needle Loc - Excisional EYE SURGERY HX 10/10/2013 right/left cararact surgery HEMORRHOIDECTOMY XTRNL 2/> COLUMN/GROUP 1999 PUNCTURE ASPIRATION CYST BREAST 1992 Right breast VAGINAL HYSTERECTOMY UTERUS 250 GM/< 10/10/2000 Hysterectomy, vaginal ALLERGIES Adhesive, Meloxicam, House Dust Mite, Lisinopril, and Norvasc [Amlodipine Besylate] MEDICATIONS yl-knc-lwurq-calcium carb-K1 (WOMEN'S 50 PLUS MULTIVITAMIN) 400 mcg-500 mg calcium-20 mcg tab Take 1 tablet by mouth once daily. metoprolol succinate ER (TOPROL XL) 100 mg Take 1 tablet by mouth once daily. Biotin 10,000 mcg cap Take 1 capsule by mouth once daily. irbesartan (AVAPRO) 300 mg tablet Take 1 tablet by mouth once daily. pravastatin (PRAVACHOL) 20 mg tablet Take 1 tablet by mouth once daily. vit C/E/Zn/coppr/lutein/zeaxan (PRESERVISION AREDS-2 ORAL) Take 1 tablet by mouth two times a day. spironolactone (ALDACTONE) 50 mg tablet Take 1 tablet by mouth once daily. Per [facility] VITAMIN A ORAL Take 400 mg by mouth once daily. olopatadine hcl(PATANOL 0.1 % EYE DROPS) 1 to 2 drops to each eye twice daily as needed FAMILY HISTORY Problem Relation Age of Onset Cancer Mother small intestine Hypertension Mother Ischemic Heart Disease Father Prostate Cancer Father Hypertension Father Cervical Cancer Sister Thyroid Cancer Sister Breast Cancer Sister Thyroid Cancer Sister Diabetes Brother Hypertension Brother Leukemia Maternal Grandmother other (Uterine fibroids) Daughter Breast Cancer Daughter Graves Disease Daughter Breast Cancer Paternal Aunt Social History Tobacco Use Smoking status: Never Smokeless tobacco: Never Vaping Use Vaping status: Never Used Substance Use Topics Alcohol use: Yes Alcohol/week: 2.0 standard drinks of alcohol Types: 2 Glasses of wine per week Comment: 1-2/week Drug use: No BP 122/68 Pulse 66 Wt 79.4 kg (175 lb) SpO2 96% BMI 26.61 kg/m? Physical Exam Vitals reviewed. Constitutional: General: She is not in acute distress. Appearance: She is ill-appearing. She is not toxic-appearing. Cardiovascular: Rate and Rhythm: Regular rhythm. Bradycardia present. Pulses: Normal pulses. Heart sounds: Normal heart sounds. No murmur heard. Comments: 2+ pitting edema bilateral lower legs. No tenderness or erythema. Pulmonary: Effort: Pulmonary effort is normal. No tachypnea. Breath sounds: Decreased breath sounds (bibasilar) present. No wheezing, rhonchi or rales. Abdominal: General: Bowel sounds are normal. There is no distension. Tenderness: There is no abdominal tenderness. Skin: General: Skin is warm and dry. Neurological: Mental Status: She is alert. Psychiatric: Mood and Affect: Mood normal. I have reviewed the patient?s records from including diagnostic testing performed, their discharge medications, and my assessment and plan with the patient and any family members present at today?s visit. ASSESSMENT/PLAN: 1. Bilateral lower extremity edema - ICD9: 782.3, ICD10: R60.0 (primary diagnosis) Dependent edema. Keep legs elevated and wear compression socks. If OTC socks are not effective she should fill prescription that was given to her today - COMPRESSION STOCKINGS 2. Palpitations - ICD9: 785.1, ICD10: R00.2 Patient reports she had a few episodes of A-fib during admission. It is possible this is what she was experiencing last night however it was fleeting and has not reoccurred. She should go to the ER or call 911 if episodes become persistent or more intense. Recommend discussing further with her secretary of state at appointment on 09/03 3. Dyspnea on exertion - ICD9: 786.09, ICD10: R06.09 Multifactorial, no worsening. Continue with incentive spirometer and activity as tolerated. 4. Positional lightheadedness - ICD9: 780.4, ICD10: R42 Multifactorial including medications, recent surgery/hospitalizations, anemia 5. Venous insufficiency - ICD9: 459.81, ICD10: I87.2 See #1 - COMPRESSION STOCKINGS 6. Weakness - ICD9: 780.79, ICD10: R53.1 improving 7. Pleural effusion - ICD9: 511.9, ICD10: J90 Chest x-ray on 08/22 indicated stable bilateral effusions. Continue to monitor symptoms 8. S/P aortic aneurysm repair - ICD9: V45.89, ICD10: Z98.890, Z86.79 Medications and follow-ups as advised at discharge 9. Blood loss anemia - ICD9: 280.0, ICD10: D50.0 Transfused during admission, Hgb trending up at discharge. Prescription instructions reviewed with patient as applicable. Potential red flag symptoms discussed with the patient. Reviewed appropriate action plan to take if red flag symptoms occur. Patient agreeable to treatment plan. Savanna Melvin APRN.HVAC SERVICE TECH COMPLETE BLOOD COUNT PANEL Collected: 08/22/2024 5:04 AM Status: F Source: [facility] TYPE CODE TESTS RESULT OUT OF RANGE REFERENCE UNITS LAB 6690-2(LOINC) Leukocytes 15.8 High 4.4-11.3 x10*3/ uL LAB 99878-4(LOINC) Erythrocytes.nuc l eated/100 leukocytes 0.0 0.0-0.0 /100 WBCs LAB 789-8(LOINC) Erythrocytes 3.01 Low 4.00-5.20 x10* 6/uL LAB 718-7(LOINC) Hemoglobin 9.1 Low 12.0-16.0 g/dL LAB 4544-3(LOINC) Hematocrit 28.1 Low 36.0-46.0 % LAB 787-2(LOINC) Erythrocyte mean corpuscular volume 93 80-100 fL LAB 785-6(LOINC) Erythrocyte mean corpuscular hemoglobin 30.2 26.0-34.0 pg LAB 786-4(LOINC) Erythrocyte mean corpuscular hemoglobin concentration 32.4 32.0-36.0 g/dL LAB 788-0(LOINC) Erythrocyte distribution width 16.9 High 11.5-14.5 % LAB 777-3(LOINC) Platelets 539 High 150-450 x10*3/uL Performed By: #### 20969-3 # ### STEFANO TROY ([id number]) [facility] ([facility]) [address] [place] [address] MAGNESIUM Collected: 5:04 AM Status: F Source: [facility] TYPE CODE TESTS RESULT OUT OF RANGE REFERENCE UNITS LAB 86875-6(LOINC) Magnesium 1.90 1.60-2.40 mg/dL Performed By: #### 68486-1 # ### STEFANO TROY ([id number]) [facility] ([facility]) [address] [place] [address] RENAL FUNCTION 2000 PANEL Collected: 5:04 AM Status: F Source: [facility] TYPE CODE TESTS RESULT OUT OF RANGE REFERENCE UNITS LAB 2345-7(LOINC) Glucose 109 High 74-99 mg/dL LAB 2951-2(LOINC) Sodium 140 136-145 mmol/L LAB 2823-3(LOINC) Potassium 4.3 3.5-5.3 mmol/L LAB 2075-0(LOINC) Chloride 108 High 98-107 mmol/L LAB 2028-9(LOINC) Carbon dioxide 24 21-32 mmol/L LAB 04454-9(LOINC) Anion gap 12 10-20 mmol/L LAB 3094-0(LOINC) Urea nitrogen 32 High 6-23 mg/d L LAB 2160-0(LOINC) Creatinine 0.74 0.50-1.05 mg/dL LAB 22134-6(LOINC) Glomerular filtration rate/1.73 sq M.predicted 85 >60 mL/min/1 .73m*2 Result Comment: Calculations of estimated GFR are performed using the 2020 CKD- EPI Study Refit equation without the race variable for the IDMS-Traceable creatinine methods. https://jasn.asnjournals.org/content/early//ASN.4063929863 LAB 04277-1(LOINC) Calcium 7.9 Low 8.6-10.3 mg/dL LAB 2777-1(LOINC) Phosphate 3.6 2.5-4.9 mg/dL Result Comment: The performa nce characteristics of phosphorus testing in heparinized plasma have been validated by the individual laboratory site where testing is performed. Testing on heparinized plasma is not approved by the FDA; however, such approval is not necessary. LAB 14945-2(LOINC) Albumin 2.7 Low 3.4-5.0 g/dL Performed By: #### 05588-3 # ### STEFANO SYDNI ([id number]) [facility] ([facility]) [address] [place] [address] URINALYSIS COMPLETE W REFLEX CULTURE PANEL Collected: 08/21/2024 12:28 PM Status: F Source: [facility] TYPE CODE TESTS RESULT OUT OF RANGE REFERENCE UNITS LAB 5778-6(LOINC) Color Yellow Light- Yellow , Yellow, Dark-Yellow LAB 5767-9(LOINC) Appearance Clear Clear LAB 39336-7(LOINC) Specific gravity 1.019 1.005-1. 035 LAB 27219-2(LOINC) pH 5.0 5.0, 5.5, 6.0, 6.5, 7.0, 7.5, 8.0 LAB 71294-0(LOINC) Protein NEGATIVE NEGAT ELLEN, 10 (TRACE), 20 (TRACE) mg/dL LAB 31636-5(LOINC) Glucose Normal Normal mg/dL LAB 34731-6(LOINC) Erythrocytes NEGATIVE NEGATIVE LAB 33009-6(LOINC) Ketones NEGATIVE NEGATIVE mg/dL LAB 42331-2(LOINC) Bilirubin NEGATIVE NEGATIVE LAB 62978-1(LOINC) Urobilinogen Normal Normal mg/d L LAB 84681-0(LOINC) Nitrite NEGATIVE NEGATIVE LAB 45308-5(LOINC) Leukocyte esterase NEGATIVE NEGATIVE Performed By: #### 17618-4 # ### STEFANO TROY ([id number]) [facility] ([facility]) [facility] [place] [address] XR CHEST 1 VIEW Observed: 08/21/2024 11:34 AM Status: F Source: [facility] Interpreted By: Miller Hussein, STUDY: XR CHEST 1 VIEW; 08/21/2024 12:15 pm INDICATION: Signs/Symptoms:Increasing leukocytosis. COMPARISON: Most recent prior is from 08/19/2024. ACCESSION NUMBER(S): [id number] ORDERING CLINICIAN: TAMI NELSON TECHNIQUE: Single AP portable view of the chest was obtained. FINDINGS: MEDIASTINUM/ LUNGS/ PATRIC: Previous heart surgery. Stable cardiomegaly. Persistent pleural effusions with associated bibasilar atelectasis/infiltrates, left greater than right, slightly progressed. No gross vascular congestion. No pneumothorax. No tracheal deviation. No abnormal hilar fullness or gross mass on either side. BONES: No lytic or blastic destructive bone lesion. UPPER ABDOMEN: Grossly intact. IMPRESSION: Previous heart surgery. Stable cardiomegaly without gross vascular congestion. Bilateral pleural effusions with associated atelectasis/infiltrates at the lung bases, left greater than right, slightly progressed. MACRO: None Signed by: Rob Hussein 08/21/2024 12:29 PM Dictation workstation: [id number] COMPLETE BLOOD COUNT PANEL Collected: 08/21/2024 10:0 8 AM Status: F Source: [facility] TYPE CODE TESTS RESULT OUT OF RANGE REFERENCE UNITS LAB 6690-2(LOINC) Leukocytes 17.1 High 4.4-11.3 x10*3/ uL LAB 11410-5(LOINC) Erythrocytes.nuc l eated/100 leukocytes 0.0 0.0-0.0 /100 WBCs LAB 789-8(LOINC) Erythrocytes 3.37 Low 4.00-5.20 x10* 6/uL LAB 718-7(LOINC) Hemoglobin 9.9 Low 12.0-16.0 g/dL LAB 4544-3(LOINC) Hematocrit 31.8 Low 36.0-46.0 % LAB 787-2(LOINC) Erythrocyte mean corpuscular volume 94 80-100 fL LAB 785-6(LOINC) Erythrocyte mean corpuscular hemoglobin 29.4 26.0-34.0 pg LAB 786-4(LOINC) Erythrocyte mean corpuscular hemoglobin concentration 31.1 Low 32.0-36.0 g/dL LAB 788-0(LOINC) Erythrocyte distribution width 16.6 High 11.5-14.5 % LAB 777-3(LOINC) Platelets 614 High 150-450 x10*3/uL Performed By: #### 48074-9 # ### STEFANO TROY ([id number]) [facility] ([facility]) [address] [place] [address] GLUCOSE Collected: 7:37 AM Status: F Source: [facility] TYPE CODE TESTS RESULT OUT OF RANGE REFERENCE UNITS LAB 2341-6(LOINC) Glucose 118 High 74-99 mg/dL Performed By: #### 2341-6 ## ## STEFANO TROY ([id number]) [facility] ([facility]) [address] [place] [address] RENAL FUNCTION 2000 PANEL Collected: 5:14 AM Status: F Source: [facility] TYPE CODE TESTS RESULT OUT OF RANGE REFERENCE UNITS LAB 2345-7(LOINC) Glucose 114 High 74-99 mg/dL LAB 2951-2(LOINC) Sodium 138 136-145 mmol/L LAB 2823-3(LOINC) Potassium 3.7 3.5-5.3 mmol/L LAB 2075-0(LOINC) Chloride 107 98-107 mmol/L LAB 8-9(LOINC) Carbon dioxide 24 21-32 mmol/L LAB 56822-6(LOINC) Anion gap 11 10-20 mmol/L LAB 3094-0(LOINC) Urea nitrogen 34 High 6-23 mg/d L LAB 2160-0(LOINC) Creatinine 0.79 0.50-1.05 mg/dL LAB 83000-2(LOINC) Glomerular filtration rate/1.73 sq M.predicted 79 >60 mL/min/1 .73m*2 Result Comment: Calculations of estimated GFR are performed using the 2020 CKD- EPI Study Refit equation without the race variable for the IDMS-Traceable creatinine methods. https://jasn.asnjournals.org/content/early/ASN.7259048343 LAB 20842-7(LOINC) Calcium 7.7 Low 8.6-10.3 mg/dL LAB 2777-1(LOINC) Phosphate 3.5 2.5-4.9 mg/dL Result Comment: The performa nce characteristics of phosphorus testing in heparinized plasma have been validated by the individual laboratory site where testing is performed. Testing on heparinized plasma is not approved by the FDA; however, such approval is not necessary. LAB 72039-4(LOINC) Albumin 2.7 Low 3.4-5.0 g/dL Performed By: #### 66831-8 # ### STEFANO TROY ([id number]) [facility] ([facility]) [address] [place] [address] MAGNESIUM Collected: 4 5:14 AM Status: F Source: [facility] TYPE CODE TESTS RESULT OUT OF RANGE REFERENCE UNITS LAB 77915-6(LOINC) Magnesium 2.20 1.60-2.40 mg/dL Performed By: #### 71856-0 # ### STEFANO TROY ([id number]) [facility] ([facility]) [address] [place] [address] GLUCOSE Collected: 4 3:54 PM Status: F Source: [facility] TYPE CODE TESTS RESULT OUT OF RANGE REFERENCE UNITS LAB 2341-6(LOINC) Glucose 144 High 74-99 mg/dL Performed By: #### 2341-6 ## ## STEFANO TROY ([id number]) [facility] ([facility]) [address] [place] [address] GLUCOSE Collected: 11:43 AM Status: F Source: [facility] TYPE CODE TESTS RESULT OUT OF RANGE REFERENCE UNITS LAB 2341-6(LOINC) Glucose 114 High 74-99 mg/dL Performed By: #### 2341-6 ## ## STEFANO TROY ([id number]) [facility] ([facility]) [address] [place] [address] GLUCOSE Collected: 4 8:05 AM Status: F Source: [facility] TYPE CODE TESTS RESULT OUT OF RANGE REFERENCE UNITS LAB 2341-6(LOINC) Glucose 140 High 74-99 mg/dL Performed By: #### 2341-6 ## ## STEFANO TROY ([id number]) [facility] ([facility]) [address] [place], [place] [id number] RENAL FUNCTION 2000 PANEL Collected: 6:18 AM Status: F Source: [facility] TYPE CODE TESTS RESULT OUT OF RANGE REFERENCE UNITS LAB 2345-7(LOINC) Glucose 142 High 74-99 mg/dL LAB 2951-2(LOINC) Sodium 137 136-145 mmol/L LAB 2823-3(LOINC) Potassium 4.6 3.5-5.3 mmol/L LAB 2075-0(LOINC) Chloride 106 98-107 mmol/L LAB 2027-9(LOINC) Carbon dioxide 23 21-32 mmol/L LAB 38985-5(LOINC) Anion gap 13 10-20 mmol/L LAB 3094-0(LOINC) Urea nitrogen 36 High 6-23 mg/d L LAB 2160-0(LOINC) Creatinine 0.97 0.50-1.05 mg/dL LAB 84091-5(LOINC) Glomerular filtration rate/1.73 sq M.predicted 61 >60 mL/min/1 .73m*2 Result Comment: Calculations of estimated GFR are performed using the 2020 CKD- EPI Study Refit equation without the race variable for the IDMS-Traceable creatinine methods. https://jasn.asnjournals.org/content//ASN.6103791424 LAB 01243-7(LOINC) Calcium 8.3 Low 8.6-10.3 mg/dL LAB 2777-1(LOINC) Phosphate 3.6 2.5-4.9 mg/dL Result Comment: The performa nce characteristics of phosphorus testing in heparinized plasma have been validated by the individual laboratory site where testing is performed. Testing on heparinized plasma is not approved by the FDA; however, such approval is not necessary. LAB 89875-6(LOINC) Albumin 3.0 Low 3.4-5.0 g/dL Performed By: #### 26997-4 # ### STEFANO TROY ([id number]) [facility] ([facility]) [address] [place] [address] MAGNESIUM Collected: 6:18 AM Status: F Source: [facility] Order Comment: 2 hours after infusion complete. TYPE CODE TESTS RESULT OUT OF RANGE REFERENCE UNITS LAB 39793-4(LOINC) Magnesium 2.16 1.60-2.40 mg/dL Performed By: #### 56033-5 # ### STEFANO TROY ([id number]) [facility] ([facility]) [address] [place] [address] COMPLETE BLOOD COUNT PANEL Collected: 08/20/2024 6:18 AM Status: F Source: [facility] TYPE CODE TESTS RESULT OUT OF RANGE REFERENCE UNITS LAB 6690-2(LOINC) Leukocytes 15.1 High 4.4-11.3 x10*3/ uL LAB 21418-7(LOINC) Erythrocytes.nuc l eated/100 leukocytes 0.0 0.0-0.0 /100 WBCs LAB 789-8(LOINC) Erythrocytes 3.10 Low 4.00-5.20 x10* 6/uL LAB 718-7(LOINC) Hemoglobin 9.3 Low 12.0-16.0 g/dL LAB 4544-3(LOINC) Hematocrit 29.7 Low 36.0-46.0 % LAB 787-2(LOINC) Erythrocyte mean corpuscular volume 96 80-100 fL LAB 785-6(LOINC) Erythrocyte mean corpuscular hemoglobin 30.0 26.0-34.0 pg LAB 786-4(LOINC) Erythrocyte mean corpuscular hemoglobin concentration 31.3 Low 32.0-36.0 g/dL LAB 788-0(LOINC) Erythrocyte distribution width 16.7 High 11.5-14.5 % LAB 777-3(LOINC) Platelets 542 High 150-450 x10*3/uL Performed By: #### 41740-2 # ### STEFANO TROY ([id number]) [facility] ([facility]) [address] [place] [address] GLUCOSE Collected: 4:38 PM Status: F Source: [facility] TYPE CODE TESTS RESULT OUT OF RANGE REFERENCE UNITS LAB 2341-6(LOINC) Glucose 121 High 74-99 mg/dL Performed By: #### 2341-6 ## ## STEFANO TROY ([id number]) [facility] ([facility]) [address] [place] [address] XR CHEST 1 VIEW Observed: 08/19/2024 12:02 PM Status: F Source: [facility] Interpreted By: Rudi Lambert, STUDY: XR CHEST 1 VIEW; 08/19/2024 12:15 pm INDICATION: Signs/Symptoms:s/p thoracentesis. COMPARISON: 08/18/2024 ACCESSION NUMBER(S): [id number] ORDERING CLINICIAN: EH COLON FINDINGS: Artifact from overlying monitoring leads noted. Hazy bibasilar opacities with blunting of the left costophrenic angle again seen. No definite pneumothorax. The cardiomediastinal silhouette remains enlarged with overlying sternotomy wires and atrial closure device again seen. IMPRESSION: Persistent bibasilar infiltrates and/or pleural effusions. No definite pneumothorax. MACRO: None. Signed by: Fernanda Lambert 08/19/2024 12:17 PM Dictation workstation: [id number] GLUCOSE Collected: 11:36 AM Status: F Source: [facility] TYPE CODE TESTS RESULT OUT OF RANGE REFERENCE UNITS LAB 2341-6(LOINC) Glucose 137 High 74-99 mg/dL Performed By: #### 2341-6 ## ## STEFANO TROY ([id number]) [facility] ([facility]) [address] [place] [id number] GLUCOSE Collected: 7:54 AM Status: F Source: [facility] TYPE CODE TESTS RESULT OUT OF RANGE REFERENCE UNITS LAB 2341-6(LOINC) Glucose 128 High 74-99 mg/dL Performed By: #### 2341-6 ## ## STEFANO TROY ([id number]) [facility] ([facility]) [address] [place] [id number] ECG 12-LEAD Observed: 08/19/2024 6:06 AM Status: F Source: [facility] Ventricular Rate 109 Atrial Rate 117 QRS Duration 144 Q-T Interval 334 QTC Calculation(Bazett) 449 R Aurora 113 T Aurora -38 QRS Count 18 Q Onset 213 T Offset 380 QTC Fredericia 407 Diagnosis Atrial fibrillation with rapid ventricular response with premature ventricular or aberrantly conducted complexes Nonspecific intraventricular block Cannot rule out Septal infarct (cited on or before 14-AUG-2024) Possible Lateral infarct (cited on or before 14-AUG-2024) T wave abnormality, consider inferior ischemia or digitalis effect Abnormal ECG When compared with ECG of 14-AUG-2024 05:29, Significant changes have occurred Confirmed by Gurjit Bower ([id number]) on 08/25/2024 5:44:02 PM COMPLETE BLOOD COUNT PANEL Collected: 08/19/2024 5:08 AM Status: F Source: [facility] TYPE CODE TESTS RESULT OUT OF RANGE REFERENCE UNITS LAB 6690-2(LOINC) Leukocytes 11.8 High 4.4-11.3 x10*3/ uL LAB 29663-1(LOINC) Erythrocytes.nuc l eated/100 leukocytes 0.2 High 0.0-0.0 /100 WBCs LAB 789-8(LOINC) Erythrocytes 2.94 Low 4.00-5.20 x10* 6/uL LAB 718-7(LOINC) Hemoglobin 9.0 Low 12.0-16.0 g/dL LAB 4544-3(LOINC) Hematocrit 27.6 Low 36.0-46.0 % LAB 787-2(LOINC) Erythrocyte mean corpuscular volume 94 80-100 fL LAB 785-6(LOINC) Erythrocyte mean corpuscular hemoglobin 30.6 26.0-34.0 pg LAB 786-4(LOINC) Erythrocyte mean corpuscular hemoglobin concentration 32.6 32.0-36.0 g/dL LAB 788-0(LOINC) Erythrocyte distribution width 16.0 High 11.5-14.5 % LAB 777-3(LOINC) Platelets 433 150-450 x10*3/uL Performed By: #### 23374-4 # ### STEFANO TROY ([id number]) [facility] ([facility]) [address] [place] [address] MAGNESIUM Collected: 5:08 AM Status: F Source: [facility] TYPE CODE TESTS RESULT OUT OF RANGE REFERENCE UNITS LAB 79900-1(LOINC) Magnesium 1.91 1.60-2.40 mg/dL Performed By: #### 86004-6 # ### STEFANO TROY ([id number]) [facility] ([facility]) [address] [place] [address] RENAL FUNCTION 2000 PANEL Collected: 5:08 AM Status: F Source: [facility] TYPE CODE TESTS RESULT OUT OF RANGE REFERENCE UNITS LAB 2345-7(LOINC) Glucose 104 High 74-99 mg/dL LAB 2951-2(LOINC) Sodium 139 136-145 mmol/L LAB 2823-3(LOINC) Potassium 4.0 3.5-5.3 mmol/L LAB 2075-0(LOINC) Chloride 107 98-107 mmol/L LAB 2027-9(LOINC) Carbon dioxide 24 21-32 mmol/L LAB 90201-0(LOINC) Anion gap 12 10-20 mmol/L LAB 3094-0(LOINC) Urea nitrogen 33 High 6-23 mg/d L LAB 2160-0(LOINC) Creatinine 0.81 0.50-1.05 mg/dL LAB 83485-1(LOINC) Glomerular filtration rate/1.73 sq M.predicted 76 >60 mL/min/1 .73m*2 Result Comment: Calculations of estimated GFR are performed using the 2020 CKD- EPI Study Refit equation without the race variable for the IDMS-Traceable creatinine methods. https://jasn.asnjournals.org/content//ASN.2544267961 LAB 41206-3(LOINC) Calcium 7.6 Low 8.6-10.3 mg/dL LAB 2777-1(LOINC) Phosphate 4.0 2.5-4.9 mg/dL Result Comment: The performa nce characteristics of phosphorus testing in heparinized plasma have been validated by the individual laboratory site where testing is performed. Testing on heparinized plasma is not approved by the FDA; however, such approval is not necessary. LAB 89973-7(LOINC) Albumin 2.7 Low 3.4-5.0 g/dL Performed By: #### 16010-2 # ### STEFANO TROY ([id number]) [facility] ([facility]) [address] [place] [address] GLUCOSE Collected: 4 12:23 AM Status: F Source: [facility] TYPE CODE TESTS RESULT OUT OF RANGE REFERENCE UNITS LAB 2341-6(LOINC) Glucose 122 High 74-99 mg/dL Performed By: #### 2341-6 ## ## STEFANO LI ([id number]) [facility] ([facility]) [address] [place] [address] GLUCOSE Collected: 4 7:38 PM Status: F Source: [facility] TYPE CODE TESTS RESULT OUT OF RANGE REFERENCE UNITS LAB 2341-6(LOINC) Glucose 138 High 74-99 mg/dL Performed By: #### 2341-6 ## ## STEFANO LI ([id number]) [facility] ([facility]) [address] [place] [address] GLUCOSE Collected: 4 4:02 PM Status: F Source: [facility] TYPE CODE TESTS RESULT OUT OF RANGE REFERENCE UNITS LAB 2341-6(LOINC) Glucose 137 High 74-99 mg/dL Performed By: #### 2341-6 ## ## STEFANO LI ([id number]) [facility] ([facility]) [address] [place] [address] XR CHEST 1 VIEW Observed: 08/18/2024 3:07 PM Status: F Source: [facility] Interpreted By: Miller Hussein, STUDY: XR CHEST 1 VIEW; 08/18/2024 3:17 pm INDICATION: Signs/Symptoms:post thora. COMPARISON: Chest x-ray from 08/18/2024 at 11:52 a.m. ACCESSION NUMBER(S): [id number] ORDERING CLINICIAN: CATHLEEN TAVARES TECHNIQUE: Single AP portable view of the chest was obtained. FINDINGS: MEDIASTINUM/ LUNGS/ PATRIC: Status post interval left-sided thoracentesis. Previous heart surgery. Stable cardiomegaly without vascular congestion. There is mild hazy opacity at the medial right base, unchanged. Decrease in pleural and parenchymal opacities at the left base. No pneumothorax. No tracheal deviation. No abnormal hilar fullness or gross mass on either side. BONES: No lytic or blastic destructive bone lesion. UPPER ABDOMEN: Grossly intact. IMPRESSION: Status post left-sided thoracentesis. No pneumothorax. Mild residual pleural and parenchymal opacities at the left base, improved. Mild stable infiltrate versus atelectasis at the medial right lung base. Previous heart surgery. Stable cardiomegaly. MACRO: None Signed by: Rob Husseni 08/18/2024 3:37 PM Dictation workstation: [id number] US THORACENTESIS Observed: 08/18/2024 12:18 PM Status: F Source: [facility] Interpreted By: Skip Tavares, STUDY: US [id number]/79613:[id number] pm INDICATION: Signs/Symptoms:worsening left pleural effusion COMPARISON: Chest Xray 08/18/2024 ACCESSION NUMBER(S): [id number] ORDERING CLINICIAN: EH COLON TECHNIQUE: INTERVENTIONALIST(S): Cathleen Tavares CONSENT: The patient/patient's POA/next of kin was informed of the nature of the proposed procedure. The purposes, alternatives, risks, and benefits were explained and discussed. All questions were answered and consent was obtained. SEDATION: None MEDICATION/CONTRAST: 1% lidocaine was used to anesthetize subcutaneously. TIME OUT: A time out was performed immediately prior to procedure start with the interventional team, correctly identifying the patient name, date of , MRN, procedure, anatomy (including marking of site and side), patient position, procedure consent form, relevant laboratory and imaging test results, antibiotic administration, safety precautions, and procedure-specific equipment needs. FINDINGS: The patient was placed in the sitting position. The pleural space was examined with selby scale ultrasound, and the most accessible fluid identified and marked for thoracentesis. The skin was prepped and draped in usual manner. Local anesthesia with lidocaine was administered and a left-sided thoracentesis was performed. A 5 Spanish One-Step Valved thoracentesis needle/catheter was then placed where marked. Approximately 850 mL of Allyson colored fluid was removed. The needle/catheter was then withdrawn. The patient tolerated the procedure well and there were no immediate complications. IMPRESSION: Uneventful thoracentesis, as detailed above. Left pleural space, 850 mL I personally performed and/or directly supervised this study and was present for the entire procedure. Performed and dictated at [facility]. Signed by: Cathleen Tavares 08/18/2024 4:08 PM Dictation workstation: [id number] GLUCOSE Collected: 11:52 AM Status: F Source: [facility] TYPE CODE TESTS RESULT OUT OF RANGE REFERENCE UNITS LAB 2341-6([facility]) Glucose 121 High 74-99 mg/dL Performed By: #### 2341-6 ## ## STEFANO SYDNI ([id number]) [facility] ([facility]) [address] [place] [address] XR CHEST 2 VIEWS Observed: 08/18/2024 11:13 AM Status: F Source: [facility] Interpreted By: Fariha Borges, STUDY: XR CHEST 2 VIEWS; 08/18/2024 11:39 am INDICATION: Signs/Symptoms:follow pleural effusion. COMPARISON: 08/17/2024 ACCESSION NUMBER(S): [id number] ORDERING CLINICIAN: EH COLON FINDINGS: Sternotomy wires and atrial closure device is again seen. Bilateral pleural effusions are noted, left greater than right. The heart is probably enlarged though difficult to tell due to the large left pleural effusion. No pneumothorax is seen. IMPRESSION: Cardiomegaly. Bilateral pleural effusions, left greater than right. Underlying infiltrates or atelectasis can not be excluded. MACRO: None Signed by: Eilsabet Borges 08/18/2024 11:54 AM Dictation workstation: [id number] GLUCOSE Collected: 8:20 AM Status: F Source: [facility] TYPE CODE TESTS RESULT OUT OF RANGE REFERENCE UNITS LAB 2341-6(LOINC) Glucose 161 High 74-99 mg/dL Performed By: #### 2341-6 ## ## STEFANO TROY ([id number]) [facility] ([facility]) [address] [place] [address] GLUCOSE Collected: 6:32 AM Status: F Source: [facility] TYPE CODE TESTS RESULT OUT OF RANGE REFERENCE UNITS LAB 2341-6(LOINC) Glucose 113 High 74-99 mg/dL Performed By: #### 2341-6 ## ## STEFANO TROY ([id number]) [facility] ([facility]) [address] [place] [address] COMPLETE BLOOD COUNT PANEL Collected: 08/18/2024 5:29 AM Status: F Source: [facility] TYPE CODE TESTS RESULT OUT OF RANGE REFERENCE UNITS LAB 6690-2(LOINC) Leukocytes 11.5 High 4.4-11.3 x10*3/ uL LAB 35113-1(LOINC) Erythrocytes.nuc l eated/100 leukocytes 0.3 High 0.0-0.0 /100 WBCs LAB 789-8(LOINC) Erythrocytes 3.05 Low 4.00-5.20 x10* 6/uL LAB 718-7(LOINC) Hemoglobin 8.9 Low 12.0-16.0 g/dL LAB 4544-3(LOINC) Hematocrit 27.8 Low 36.0-46.0 % LAB 787-2(LOINC) Erythrocyte mean corpuscular volume 91 80-100 fL LAB 785-6(LOINC) Erythrocyte mean corpuscular hemoglobin 29.2 26.0-34.0 pg LAB 786-4(LOINC) Erythrocyte mean corpuscular hemoglobin concentration 32.0 32.0-36.0 g/dL LAB 788-0(LOINC) Erythrocyte distribution width 15.9 High 11.5-14.5 % LAB 777-3(LOINC) Platelets 409 150-450 x10*3/uL Performed By: #### 67536-4 # ### STEFANO TROY ([id number]) [facility] ([facility]) [address] [place] [address] MAGNESIUM Collected: 5:29 AM Status: F Source: [facility] TYPE CODE TESTS RESULT OUT OF RANGE REFERENCE UNITS LAB 18115-5(LOINC) Magnesium 2.08 1.60-2.40 mg/dL Performed By: #### 05720-4 # ### STEFANO SYDNI ([id number]) [facility] ([facility]) [address] [place] [id number] RENAL FUNCTION 2000 PANEL Collected: 5:29 AM Status: F Source: [facility] TYPE CODE TESTS RESULT OUT OF RANGE REFERENCE UNITS LAB 2345-7(LOINC) Glucose 118 High 74-99 mg/dL LAB 2951-2(LOINC) Sodium 139 136-145 mmol/L LAB 2823-3(LOINC) Potassium 4.2 3.5-5.3 mmol/L LAB 2075-0(LOINC) Chloride 106 98-107 mmol/L LAB 2027-9(LOINC) Carbon dioxide 25 21-32 mmol/L LAB 07005-9(LOINC) Anion gap 12 10-20 mmol/L LAB 3094-0(LOINC) Urea nitrogen 35 High 6-23 mg/d L LAB 2160-0(LOINC) Creatinine 0.79 0.50-1.05 mg/dL LAB 29148-3(LOINC) Glomerular filtration rate/1.73 sq M.predicted 79 >60 mL/min/1 .73m*2 Result Comment: Calculations of estimated GFR are performed using the 2020 CKD- EPI Study Refit equation without the race variable for the IDMS-Traceable creatinine methods. https://jasn.asnjournals.org/content///ASN.8142024280 LAB 97246-5(LOINC) Calcium 7.8 Low 8.6-10.3 mg/dL LAB 2777-1(LOINC) Phosphate 3.6 2.5-4.9 mg/dL Result Comment: The performa nce characteristics of phosphorus testing in heparinized plasma have been validated by the individual laboratory site where testing is performed. Testing on heparinized plasma is not approved by the FDA; however, such approval is not necessary. LAB 22040-5(LOINC) Albumin 3.0 Low 3.4-5.0 g/dL Performed By: #### 31711-2 # ### STEFANO TROY ([id number]) [facility] ([facility]) [address] [place] [address] GLUCOSE Collected: 4 8:50 PM Status: F Source: [facility] TYPE CODE TESTS RESULT OUT OF RANGE REFERENCE UNITS LAB 2341-6(LOINC) Glucose 117 High 74-99 mg/dL Performed By: #### 2341-6 ## ## STEFANO TROY ([id number]) [facility] ([facility]) [address] [place] [address] GLUCOSE Collected: 4 4:58 PM Status: F Source: [facility] TYPE CODE TESTS RESULT OUT OF RANGE REFERENCE UNITS LAB 2341-6(LOINC) Glucose 156 High 74-99 mg/dL Performed By: #### 2341-6 ## ## STEFANO TROY ([id number]) [facility] ([facility]) [address] [place] [address] GLUCOSE Collected: 4 11:35 AM Status: F Source: [facility] TYPE CODE TESTS RESULT OUT OF RANGE REFERENCE UNITS LAB 2341-6(LOINC) Glucose 122 High 74-99 mg/dL Performed By: #### 2341-6 ## ## STEFANO TROY ([id number]) [facility] ([facility]) [address] [place] [address] GLUCOSE Collected: 4 6:22 AM Status: F Source: [facility] TYPE CODE TESTS RESULT OUT OF RANGE REFERENCE UNITS LAB 2341-6(LOINC) Glucose 116 High 74-99 mg/dL Performed By: #### 2341-6 ## ## STEFANO TROY ([id number]) [facility] ([facility]) [address] [place] [id number] XR CHEST 2 VIEWS Observed: 08/17/2024 6:00 AM Status: F Source: [facility] Interpreted By: Rudi Lambert, STUDY: XR CHEST 2 VIEWS; 08/17/2024 10:22 am INDICATION: Signs/Symptoms:pleural effsuions s/p Aortic arch replacment. COMPARISON: 08/14/2024 ACCESSION NUMBER(S): [id number] ORDERING CLINICIAN: EH COLON FINDINGS: Artifact from overlying monitoring leads noted. Interval removal of right jugular central line and bilateral chest tubes. Ucmk-yhkmatt-mwiz-right lower chest opacities with blunting of the costophrenic angles increased from prior. No definite pneumothorax. The cardiac silhouette is prominent with overlying sternotomy wires and atrial closure device again seen. Degenerative endplate spurring in the thoracic spine. IMPRESSION: Interval removal of support devices. Status post sternotomy. Zgkc-cojreiq-szii-right basilar infiltrates and/or pleural effusions. MACRO: None. Signed by: Fernanda Lambert 08/17/2024 11:22 AM Dictation workstation: [id number] COMPLETE BLOOD COUNT PANEL Collected: 08/17/2024 5:23 AM Status: F Source: [facility] TYPE CODE TESTS RESULT OUT OF RANGE REFERENCE UNITS LAB 6690-2(LOINC) Leukocytes 11.9 High 4.4-11.3 x10*3/ uL LAB 56875-8(LOINC) Erythrocytes.nuc l eated/100 leukocytes 0.4 High 0.0-0.0 /100 WBCs LAB 789-8(LOINC) Erythrocytes 2.77 Low 4.00-5.20 x10* 6/uL LAB 718-7(LOINC) Hemoglobin 8.4 Low 12.0-16.0 g/dL LAB 4544-3(LOINC) Hematocrit 25.5 Low 36.0-46.0 % LAB 787-2(LOINC) Erythrocyte mean corpuscular volume 92 80-100 fL LAB 785-6(LOINC) Erythrocyte mean corpuscular hemoglobin 30.3 26.0-34.0 pg LAB 786-4(LOINC) Erythrocyte mean corpuscular hemoglobin concentration 32.9 32.0-36.0 g/dL LAB 788-0(LOINC) Erythrocyte distribution width 15.3 High 11.5-14.5 % LAB 777-3(LOINC) Platelets 342 150-450 x10*3/uL Performed By: #### 53537-0 # ### STEFANO TROY ([id number]) [facility] ([facility]) [address] [place] [address] MAGNESIUM Collected: 5:23 AM Status: F Source: [facility] TYPE CODE TESTS RESULT OUT OF RANGE REFERENCE UNITS LAB 29795-7(LOINC) Magnesium 2.22 1.60-2.40 mg/dL Performed By: #### 92211-4 # ### STEFANO TROY ([id number]) [facility] ([facility]) [address] [place] [address] RENAL FUNCTION 2000 PANEL Collected: 5:23 AM Status: F Source: [facility] TYPE CODE TESTS RESULT OUT OF RANGE REFERENCE UNITS LAB 2345-7(LOINC) Glucose 119 High 74-99 mg/dL LAB 2951-2(LOINC) Sodium 135 Low 136-145 mmol/L LAB 2823-3(LOINC) Potassium 3.9 3.5-5.3 mmol/L LAB 2075-0(LOINC) Chloride 103 98-107 mmol/L LAB 2027-9(LOINC) Carbon dioxide 23 21-32 mmol/L LAB 07962-4(LOINC) Anion gap 13 10-20 mmol/L LAB 3094-0(LOINC) Urea nitrogen 38 High 6-23 mg/d L LAB 2160-0(LOINC) Creatinine 0.83 0.50-1.05 mg/dL LAB 94807-6(LOINC) Glomerular filtration rate/1.73 sq M.predicted 74 >60 mL/min/1 .73m*2 Result Comment: Calculations of estimated GFR are performed using the 2020 CKD- EPI Study Refit equation without the race variable for the IDMS-Traceable creatinine methods. https://jasn.asnjournals.org/content///ASN.3595620749 LAB 49415-8(LOINC) Calcium 7.6 Low 8.6-10.3 mg/dL LAB 2777-1(LOINC) Phosphate 3.0 2.5-4.9 mg/dL Result Comment: The performa nce characteristics of phosphorus testing in heparinized plasma have been validated by the individual laboratory site where testing is performed. Testing on heparinized plasma is not approved by the FDA; however, such approval is not necessary. LAB 55906-2(LOINC) Albumin 3.0 Low 3.4-5.0 g/dL Performed By: #### 55400-8 # ### STEFANO TROY ([id number]) [facility] ([facility]) [address] [place] [address] GLUCOSE Collected: 4 8:55 PM Status: F Source: [facility] TYPE CODE TESTS RESULT OUT OF RANGE REFERENCE UNITS LAB 2341-6(LOINC) Glucose 122 High 74-99 mg/dL Performed By: #### 2341-6 ## ## STEFANO TROY ([id number]) [facility] ([facility]) [address] [place] [address] GLUCOSE Collected: 4 4:05 PM Status: F Source: [facility] TYPE CODE TESTS RESULT OUT OF RANGE REFERENCE UNITS LAB 2341-6(LOINC) Glucose 130 High 74-99 mg/dL Performed By: #### 2341-6 ## ## STEFANO TROY ([id number]) [facility] ([facility]) [address] [place], [place] [id number] GLUCOSE Collected: 4 10:53 AM Status: F Source: [facility] TYPE CODE TESTS RESULT OUT OF RANGE REFERENCE UNITS LAB 2341-6(LOINC) Glucose 126 High 74-99 mg/dL Performed By: #### 2341-6 ## ## STEFANO TROY ([id number]) [facility] ([facility]) [address] [place] [id number] GLUCOSE Collected: 4 7:55 AM Status: F Source: [facility] TYPE CODE TESTS RESULT OUT OF RANGE REFERENCE UNITS LAB 2341-6(LOINC) Glucose 122 High 74-99 mg/dL Performed By: #### 2341-6 ## ## STEFANO TROY ([id number]) [facility] ([facility]) [address] [place] [address] MAGNESIUM Collected: 4 5:29 AM Status: F Source: [facility] TYPE CODE TESTS RESULT OUT OF RANGE REFERENCE UNITS LAB 22665-0(LOINC) Magnesium 2.34 1.60-2.40 mg/dL Performed By: #### 42458-8 # ### STEFANO TROY ([id number]) [facility] ([facility]) [address] [place] [address] RENAL FUNCTION 2000 PANEL Collected: 5:29 AM Status: F Source: [facility] TYPE CODE TESTS RESULT OUT OF RANGE REFERENCE UNITS LAB 2345-7(LOINC) Glucose 119 High 74-99 mg/dL LAB 2951-2(LOINC) Sodium 132 Low 136-145 mmol/L LAB 2823-3(LOINC) Potassium 4.0 3.5-5.3 mmol/L LAB 2075-0(LOINC) Chloride 102 98-107 mmol/L LAB 8-9(LOINC) Carbon dioxide 22 21-32 mmol/L LAB 44066-1(LOINC) Anion gap 12 10-20 mmol/L LAB 3094-0(LOINC) Urea nitrogen 40 High 6-23 mg/d L LAB 2160-0(LOINC) Creatinine 0.81 0.50-1.05 mg/dL LAB 43262-0(LOINC) Glomerular filtration rate/1.73 sq M.predicted 76 >60 mL/min/1 .73m*2 Result Comment: Calculations of estimated GFR are performed using the 2020 CKD- EPI Study Refit equation without the race variable for the IDMS-Traceable creatinine methods. https://jasn.asnjournals.org/content//ASN.1438466474 LAB 34310-6(LOINC) Calcium 7.5 Low 8.6-10.3 mg/dL LAB 2777-1(LOINC) Phosphate 3.4 2.5-4.9 mg/dL Result Comment: The performa nce characteristics of phosphorus testing in heparinized plasma have been validated by the individual laboratory site where testing is performed. Testing on heparinized plasma is not approved by the FDA; however, such approval is not necessary. LAB 07995-6(LOINC) Albumin 3.0 Low 3.4-5.0 g/dL Performed By: #### 55990-3 # ### STEFANO TROY ([id number]) [facility] ([facility]) [address] [place] [address] COMPLETE BLOOD COUNT W AUTO DIFFERENTIAL PANEL Collected: 08/16/2024 5:28 AM Status: F Source: [facility] TYPE CODE TESTS RESULT OUT OF RANGE REFERENCE UNITS LAB 6690-2(LOINC) Leukocytes 10.2 4.4-11.3 x10*3/ uL LAB 87003-4(LOINC ) Erythrocytes.nuc leated/100 leukocytes 0.6 High 0.0-0.0 /100 WBCs LAB 789-8(LOINC) Erythrocytes 2.79 Low 4.00-5.20 x10* 6/uL LAB 718-7(LOINC) Hemoglobin 8.5 Low 12.0-16.0 g/dL LAB 4544-3(LOINC) Hematocrit 25.2 Low 36.0-46.0 % LAB 787-2(LOINC) Erythrocyte mean corpuscular volume 90 80-100 fL LAB 785-6(LOINC) Erythrocyte mean corpuscular hemoglobin 30.5 26.0-34.0 pg LAB 786-4(LOINC) Erythrocyte mean corpuscular hemoglobin concentration 33.7 32.0-36.0 g/dL LAB 788-0(LOINC) Erythrocyte distribution width 15.2 High 11.5-14.5 % LAB 777-3(LOINC) Platelets 287 150-450 x10*3/uL LAB 770-8(LOINC) Neutrophils/100 leukocytes 68.7 40.0-80.0 % LAB 81947-9(LOINC ) Granulocytes.imm ature/100 leukocytes 0.9 0.0-0.9 % Result Comment: Immature Gra nulocyte Count (IG) includes promyelocytes, myelocytes and metamyelocytes but does not include bands. Percent differential counts (%) should be interpreted in the context of the absolute cell counts (cells/UL). LAB 736-9(LOINC) Lymphocytes/100 leukocytes 17.3 13.0-44.0 % LAB 5905-5(LOINC) Monocytes/100 leukocytes 10.3 2.0-10.0 % LAB 713-8(LOINC) Eosinophils/100 leukocytes 2.6 0.0-6.0 % LAB 706-2(LOINC) Basophils/100 leukocytes 0.2 0.0-2.0 % LAB 751-8(LOINC) Neutrophils 7.01 High 1.60-5.50 x10*3 /uL Result Comment: Percent diff erential counts (%) should be interpreted in the context of the absolute cell counts (cells/uL). LAB 58181-7(LOINC ) Granulocytes.imm ature 0.09 0.00-0.50 x10*3/uL LAB 731-0(LOINC) Lymphocytes 1.76 0.80-3.00 x10*3 /uL LAB 742-7(LOINC) Monocytes 1.05 High 0.05-0.80 x10*3/u L LAB 711-2(LOINC) Eosinophils 0.27 0.00-0.40 x10*3 /uL LAB 704-7(LOINC) Basophils 0.02 0.00-0.10 x10*3/u L Performed By: #### 96689-9 # ### STEFANO TROY ([id number]) [facility] ([facility]) [address] [place] [address] GLUCOSE Collected: 4 7:26 PM Status: F Source: [facility] TYPE CODE TESTS RESULT OUT OF RANGE REFERENCE UNITS LAB 2341-6(LOINC) Glucose 136 High 74-99 mg/dL Performed By: #### 2341-6 ## ## STEFANO TROY ([id number]) [facility] ([facility]) [address] [place] [address] GLUCOSE Collected: 4 4:22 PM Status: F Source: [facility] TYPE CODE TESTS RESULT OUT OF RANGE REFERENCE UNITS LAB 2341-6(LOINC) Glucose 133 High 74-99 mg/dL Performed By: #### 2341-6 ## ## STEFANO LI ([id number]) [facility] ([facility]) [address] [place] [address] GLUCOSE Collected: 4 10:52 AM Status: F Source: [facility] TYPE CODE TESTS RESULT OUT OF RANGE REFERENCE UNITS LAB 2341-6(LOINC) Glucose 111 High 74-99 mg/dL Performed By: #### 2341-6 ## ## STEFANO LI ([id number]) [facility] ([facility]) [address] [place] [address] GLUCOSE Collected: 7:44 AM Status: F Source: [facility] TYPE CODE TESTS RESULT OUT OF RANGE REFERENCE UNITS LAB 2341-6(LOINC) Glucose 108 High 74-99 mg/dL Performed By: #### 2341-6 ## ## STEFAON TROY ([id number]) [facility] ([facility]) [address] [place] [id number] COMPLETE BLOOD COUNT W AUTO DIFFERENTIAL PANEL Collected: 08/15/2024 5:26 AM Status: F Source: [facility] TYPE CODE TESTS RESULT OUT OF RANGE REFERENCE UNITS LAB 6690-2(LOINC) Leukocytes 10.3 4.4-11.3 x10*3/ uL LAB 31485-7(LOINC ) Erythrocytes.nuc leated/100 leukocytes 0.6 High 0.0-0.0 /100 WBCs LAB 789-8(LOINC) Erythrocytes 2.94 Low 4.00-5.20 x10* 6/uL LAB 718-7(LOINC) Hemoglobin 8.7 Low 12.0-16.0 g/dL LAB 4544-3(LOINC) Hematocrit 26.6 Low 36.0-46.0 % LAB 787-2(LOINC) Erythrocyte mean corpuscular volume 91 80-100 fL LAB 785-6(LOINC) Erythrocyte mean corpuscular hemoglobin 29.6 26.0-34.0 pg LAB 786-4(LOINC) Erythrocyte mean corpuscular hemoglobin concentration 32.7 32.0-36.0 g/dL LAB 788-0(LOINC) Erythrocyte distribution width 15.5 High 11.5-14.5 % LAB 777-3(LOINC) Platelets 283 150-450 x10*3/uL LAB 770-8(LOINC) Neutrophils/100 leukocytes 62.3 40.0-80.0 % LAB 01888-2(LOINC ) Granulocytes.imm ature/100 leukocytes 0.5 0.0-0.9 % Result Comment: Immature Gra nulocyte Count (IG) includes promyelocytes, myelocytes and metamyelocytes but does not include bands. Percent differential counts (%) should be interpreted in the context of the absolute cell counts (cells/UL). LAB 736-9(LOINC) Lymphocytes/100 leukocytes 24.1 13.0-44.0 % LAB 5905-5(LOINC) Monocytes/100 leukocytes 10.7 2.0-10.0 % LAB 713-8(LOINC) Eosinophils/100 leukocytes 2.2 0.0-6.0 % LAB 706-2(LOINC) Basophils/100 leukocytes 0.2 0.0-2.0 % LAB 751-8(LOINC) Neutrophils 6.41 High 1.60-5.50 x10*3 /uL Result Comment: Percent diff erential counts (%) should be interpreted in the context of the absolute cell counts (cells/uL). LAB 93129-8(LOINC ) Granulocytes.imm ature 0.05 0.00-0.50 x10*3/uL LAB 731-0(LOINC) Lymphocytes 2.48 0.80-3.00 x10*3 /uL LAB 742-7(LOINC) Monocytes 1.10 High 0.05-0.80 x10*3/u L LAB 711-2(LOINC) Eosinophils 0.23 0.00-0.40 x10*3 /uL LAB 704-7(LOINC) Basophils 0.02 0.00-0.10 x10*3/u L Performed By: #### 80817-5 # ### STEFANO TROY ([id number]) [facility] ([facility]) [address] [place] [address] MAGNESIUM Collected: 5:26 AM Status: F Source: [facility] TYPE CODE TESTS RESULT OUT OF RANGE REFERENCE UNITS LAB 66528-7(LOINC) Magnesium 2.37 1.60-2.40 mg/dL Performed By: #### 22071-2 # ### STEFANO TROY ([id number]) [facility] ([facility]) [address] [place] [address] RENAL FUNCTION 2000 PANEL Collected: 5:26 AM Status: F Source: [facility] TYPE CODE TESTS RESULT OUT OF RANGE REFERENCE UNITS LAB 2345-7(LOINC) Glucose 108 High 74-99 mg/dL LAB 2951-2(LOINC) Sodium 134 Low 136-145 mmol/L LAB 2823-3(LOINC) Potassium 4.4 3.5-5.3 mmol/L LAB 2075-0(LOINC) Chloride 101 98-107 mmol/L LAB 2028-9(LOINC) Carbon dioxide 25 21-32 mmol/L LAB 89231-2(LOINC) Anion gap 12 10-20 mmol/L LAB 3094-0(LOINC) Urea nitrogen 41 High 6-23 mg/d L LAB 2160-0(LOINC) Creatinine 0.86 0.50-1.05 mg/dL LAB 84705-1(LOINC) Glomerular filtration rate/1.73 sq M.predicted 71 >60 mL/min/1 .73m*2 Result Comment: Calculations of estimated GFR are performed using the 2020 CKD- EPI Study Refit equation without the race variable for the IDMS-Traceable creatinine methods. https://jasn.asnjournals.org/content/early//ASN.4406989334 LAB 30718-6(LOINC) Calcium 7.8 Low 8.6-10.3 mg/dL LAB 2777-1(LOINC) Phosphate 3.1 2.5-4.9 mg/dL Result Comment: The performa nce characteristics of phosphorus testing in heparinized plasma have been validated by the individual laboratory site where testing is performed. Testing on heparinized plasma is not approved by the FDA; however, such approval is not necessary. LAB 23705-6(LOINC) Albumin 3.2 Low 3.4-5.0 g/dL Performed By: #### 83779-7 # ### STEFANO TROY ([id number]) [facility] ([facility]) [address] [place] [address] GLUCOSE Collected: 8:22 PM Status: F Source: [facility] TYPE CODE TESTS RESULT OUT OF RANGE REFERENCE UNITS LAB 2341-6(LOINC) Glucose 149 High 74-99 mg/dL Performed By: #### 2341-6 ## ## STEFANO TROY ([id number]) [facility] ([facility]) [address] [place] [id number] BACTERIA IDENTIFIED Observed: 08/14/2024 5:47 PM Status: F Source: [facility] Test: Respiratory Culture/Sm ear Specimen Source: [facility] Specimen Type: Fluid Specimen Date: 08/14/20241746 Result Date: 08/15/2024450 Result Status: Final result Abnormal: Yes Resulting Lab: [facility] [address] [place] [address] CULTURE Culture not performed. See Gram stain findings. Recollect if clinically indicated. (Abnormal) STAIN Gram stain indicates specimen contains significant salivary contamination. Performed By: #### 40660-8 # ### ZABRINA Villalba ([id number]) [facility] ([facility]) [id number] [place] [address] GLUCOSE Collected: 2:51 PM Status: F Source: [facility] TYPE CODE TESTS RESULT OUT OF RANGE REFERENCE UNITS LAB 2341-6(LOINC) Glucose 111 High 74-99 mg/dL Performed By: #### 2341-6 ## ## STEFANO TROY ([id number]) [facility] ([facility]) [address] [place] [address] GAS AND CO AND ELECTROLYTES PANEL Collected: 08/14/2024 2:37 PM Status: F Source: [facility] TYPE CODE TESTS RESULT OUT OF RANGE REFERENCE UNITS LAB 2744-1(LOINC) pH 7.50 High 7.38-7.42 pH LAB 2019-8(LOINC) Carbon dioxide 28 Low 38-42 mm Hg LAB 2703-7(LOINC) Oxygen 95 85-95 mm Hg LAB 2708-6(LOINC) Oxygen saturation 99 94-100 % LAB 2714-4(LOINC) Oxyhemoglobin/ Hemoglobin.tot al 97.1 94.0-98.0 % LAB 44710-1(LOINC) Hematocrit 27.0 Low 36.0-46.0 % LAB 78564-5(LOINC) Sodium 131 Low 136-145 mmol/L LAB 09799-0(LOINC) Potassium 3.9 3.5-5.3 mmol/L LAB 77590-1([facility]) Chloride 102 98-107 mmol/L LAB 56777-6([facility]) Calcium.ionize d 1.14 1.10-1.33 mmol/L LAB 43819-3([facility]) Glucose 121 High 74-99 mg/dL LAB 2518-9([facility]) Lactate 1.4 0.4-2.0 mmol/L LAB 1925-7([facility]) Base excess -0.8 -2.0-3.0 mmol/ L LAB 1960-4([facility]) Bicarbonate 21.8 Low 22.0-26.0 mmol /L LAB 42549-8([facility]) Hemoglobin 8.9 Low 12.0-16.0 g/dL LAB 01828-8([facility]) Anion gap 4 11 10-25 mmo/L LAB 8310-5([facility]) Body temperature 37.0 degrees Celsius LAB 3150-0([facility]) Oxygen/Gas.tot al 40 % LAB FLOWA FLOW 40.0 LPM Performed By: #### 88610-0 # ### STEFANO TROY ([id number]) [facility] ([facility]) [address] [place] [address] GLUCOSE Collected: 11:17 AM Status: F Source: [facility] TYPE CODE TESTS RESULT OUT OF RANGE REFERENCE UNITS LAB 2341-6([facility]) Glucose 163 High 74-99 mg/dL Performed By: #### 2341-6 ## ## STEFANO TROY ([id number]) [facility] ([facility]) [address] [place] [address] GAS AND CO AND ELECTROLYTES PANEL Collected: 08/14/2024 7:42 AM Status: F Source: [facility] TYPE CODE TESTS RESULT OUT OF RANGE REFERENCE UNITS LAB 2744-1([facility]) pH 7.50 High 7.38-7.42 pH LAB 2019-8([facility]) Carbon dioxide 29 Low 38-42 mm Hg LAB 2703-7([facility]) Oxygen 81 Low 85-95 mm Hg LAB 2708-6([facility]) Oxygen saturation 98 94-100 % LAB 2714-4([facility]) Oxyhemoglobin/ Hemoglobin.tot al 95.9 94.0-98.0 % LAB 95755-3(LOINC) Hematocrit 28.0 Low 36.0-46.0 % LAB 99713-2(INC) Sodium 130 Low 136-145 mmol/L LAB 72583-4(LOINC) Potassium 3.6 3.5-5.3 mmol/L LAB 59431-4([facility]) Chloride 100 98-107 mmol/L LAB 75549-9([facility]) Calcium.ionize d 1.14 1.10-1.33 mmol/L LAB 02855-6([facility]) Glucose 153 High 74-99 mg/dL LAB 2518-9([facility]) Lactate 1.4 0.4-2.0 mmol/L LAB 1925-7([facility]) Base excess -0.1 -2.0-3.0 mmol/ L LAB 1960-4([facility]) Bicarbonate 22.6 22.0-26.0 mmol /L LAB 36614-3([facility]) Hemoglobin 9.2 Low 12.0-16.0 g/dL LAB 26891-5([facility]) Anion gap 4 11 10-25 mmo/L LAB 8310-5([facility]) Body temperature 37.0 degrees Celsius LAB 3150-0([facility]) Oxygen/Gas.tot al 50 % LAB FLOWA FLOW 60.0 LPM Performed By: #### 59000-8 # ### STEFANO TROY ([id number]) [facility] ([facility]) [address] [place] [address] GLUCOSE Collected: 7:32 AM Status: F Source: [facility] TYPE CODE TESTS RESULT OUT OF RANGE REFERENCE UNITS LAB 2341-6([facility]) Glucose 142 High 74-99 mg/dL Performed By: #### 2341-6 ## ## STEFANO TROY ([id number]) [facility] ([facility]) [address] [place] [address] XR CHEST 1 VIEW Observed: 08/14/2024 7:06 AM Status: F Source: [facility] Interpreted By: Sharon Munguia, STUDY: XR CHEST 1 VIEW; 08/14/2024 7:36 am INDICATION: Signs/Symptoms: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 COMPARISON: X-ray chest 10/14/2023 ACCESSION NUMBER(S): [id number] ORDERING CLINICIAN: EH COLON FINDINGS: AP radiograph of the chest was provided. The heart is upper limits normal in size. Patchy bibasilar opacities and small left pleural effusion. No pneumothorax. Patient is status post sternotomy. Calcifications are seen in the aortic arch. Lines and tubes are unchanged in position. No perceptible pneumothorax. IMPRESSION: 1. Patchy bibasilar opacities may represent atelectasis, edema, aspiration, or infection. 2. Small left pleural effusion. MACRO: None Signed by: Lenard Munguia 08/14/2024 8:07 AM Dictation workstation: [id number] ECG 12-LEAD Observed: 08/14/2024 5:29 AM Status: F Source: [facility] Ventricular Rate 92 Atrial Rate 92 P-R Interval 168 QRS Duration 134 Q-T Interval 430 QTC Calculation(Bazett) 531 P Aurora 40 R Aurora 136 T Aurora 47 QRS Count 15 Q Onset 214 P Onset 130 P Offset 179 T Offset 429 QTC Fredericia 495 Diagnosis Normal sinus rhythm Right axis deviation Nonspecific intraventricular block Cannot rule out Anteroseptal infarct , age undetermined ST elevation in Inferior leads ACUTE MN Abnormal ECG When compared with ECG of 13-AUG-2024 08:21, (unconfirmed) Sinus rhythm has replaced Junctional rhythm QRS axis Shifted right Nonspecific T wave abnormality now evident in Anterior leads Confirmed by Kevin Kenyon ([id number]) on 08/19/2024 7:28:14 PM COMPLETE BLOOD COUNT W AUTO DIFFERENTIAL PANEL Collected: 08/14/2024 5:10 AM Status: F Source: [facility] TYPE CODE TESTS RESULT OUT OF RANGE REFERENCE UNITS LAB 6690-2(LOINC) Leukocytes 11.9 High 4.4-11.3 x10*3/ uL LAB 79382-6(LOINC ) Erythrocytes.nuc leated/100 leukocytes 0.3 High 0.0-0.0 /100 WBCs LAB 789-8(LOINC) Erythrocytes 2.99 Low 4.00-5.20 x10* 6/uL LAB 718-7(LOINC) Hemoglobin 9.0 Low 12.0-16.0 g/dL LAB 4544-3(LOINC) Hematocrit 24.9 Low 36.0-46.0 % LAB 787-2(LOINC) Erythrocyte mean corpuscular volume 83 80-100 fL LAB 785-6(LOINC) Erythrocyte mean corpuscular hemoglobin 30.1 26.0-34.0 pg LAB 786-4(LOINC) Erythrocyte mean corpuscular hemoglobin concentration 36.1 High 32.0-36.0 g/dL LAB 788-0(LOINC) Erythrocyte distribution width 15.0 High 11.5-14.5 % LAB 777-3(LOINC) Platelets 224 150-450 x10*3/uL LAB 770-8(LOINC) Neutrophils/100 leukocytes 73.4 40.0-80.0 % LAB 38145-3(LOINC ) Granulocytes.imm ature/100 leukocytes 0.6 0.0-0.9 % Result Comment: Immature Gra nulocyte Count (IG) includes promyelocytes, myelocytes and metamyelocytes but does not include bands. Percent differential counts (%) should be interpreted in the context of the absolute cell counts (cells/UL). LAB 736-9(LOINC) Lymphocytes/100 leukocytes 15.5 13.0-44.0 % LAB 5905-5(LOINC) Monocytes/100 leukocytes 9.5 2.0-10.0 % LAB 713-8(LOINC) Eosinophils/100 leukocytes 0.9 0.0-6.0 % LAB 706-2(LOINC) Basophils/100 leukocytes 0.1 0.0-2.0 % LAB 751-8(LOINC) Neutrophils 8.77 High 1.60-5.50 x10*3 /uL Result Comment: Percent diff erential counts (%) should be interpreted in the context of the absolute cell counts (cells/uL). LAB 17798-3(LOINC ) Granulocytes.imm ature 0.07 0.00-0.50 x10*3/uL LAB 731-0(LOINC) Lymphocytes 1.85 0.80-3.00 x10*3 /uL LAB 742-7(LOINC) Monocytes 1.13 High 0.05-0.80 x10*3/u L LAB 711-2(LOINC) Eosinophils 0.11 0.00-0.40 x10*3 /uL LAB 704-7(LOINC) Basophils 0.01 0.00-0.10 x10*3/u L Performed By: #### 39530-3 # ### STEFANO TROY ([id number]) [facility] ([facility]) [address] [place] [address] RENAL FUNCTION 2000 PANEL Collected: 5:10 AM Status: F Source: [facility] TYPE CODE TESTS RESULT OUT OF RANGE REFERENCE UNITS LAB 2345-7(LOINC) Glucose 138 High 74-99 mg/dL LAB 2951-2(LOINC) Sodium 130 Low 136-145 mmol/L LAB 2823-3(LOINC) Potassium 3.6 3.5-5.3 mmol/L LAB 2075-0(LOINC) Chloride 100 98-107 mmol/L LAB 2028-9(LOINC) Carbon dioxide 22 21-32 mmol/L LAB 20340-6(LOINC) Anion gap 12 10-20 mmol/L LAB 3094-0(LOINC) Urea nitrogen 39 High 6-23 mg/d L LAB 2160-0(LOINC) Creatinine 0.79 0.50-1.05 mg/dL LAB 06005-4(LOINC) Glomerular filtration rate/1.73 sq M.predicted 79 >60 mL/min/1 .73m*2 Result Comment: Calculations of estimated GFR are performed using the 2020 CKD- EPI Study Refit equation without the race variable for the IDMS-Traceable creatinine methods. https://jasn.asnjournals.org/content///ASN.9419272977 LAB 67052-9(LOINC) Calcium 7.6 Low 8.6-10.3 mg/dL LAB 2777-1(LOINC) Phosphate 2.9 2.5-4.9 mg/dL Result Comment: The performa nce characteristics of phosphorus testing in heparinized plasma have been validated by the individual laboratory site where testing is performed. Testing on heparinized plasma is not approved by the FDA; however, such approval is not necessary. LAB 22631-5(LOINC) Albumin 3.1 Low 3.4-5.0 g/dL Performed By: #### 10387-3 # ### STEFANO TROY ([id number]) [facility] ([facility]) [address] [place] [id number] MAGNESIUM Collected: 4 5:10 AM Status: F Source: [facility] TYPE CODE TESTS RESULT OUT OF RANGE REFERENCE UNITS LAB 57132-9(LOINC) Magnesium 2.22 1.60-2.40 mg/dL Performed By: #### 02353-2 # ### STEFANO TROY ([id number]) [facility] ([facility]) [address] [place], [place] [id number] GLUCOSE Collected: 4 7:56 PM Status: F Source: [facility] TYPE CODE TESTS RESULT OUT OF RANGE REFERENCE UNITS LAB 2341-6(LOINC) Glucose 150 High 74-99 mg/dL Performed By: #### 2341-6 ## ## STEFANO TROY ([id number]) [facility] ([facility]) [address] [place], [place] [id number] GLUCOSE Collected: 4 4:43 PM Status: F Source: [facility] TYPE CODE TESTS RESULT OUT OF RANGE REFERENCE UNITS LAB 2341-6(LOINC) Glucose 142 High 74-99 mg/dL Performed By: #### 2341-6 ## ## STEFANO TROY ([id number]) [facility] ([facility]) [address] [place] [id number] GLUCOSE Collected: 4 11:37 AM Status: F Source: [facility] TYPE CODE TESTS RESULT OUT OF RANGE REFERENCE UNITS LAB 2341-6(LOINC) Glucose 127 High 74-99 mg/dL Performed By: #### 2341-6 ## ## STEFANO TROY ([id number]) [facility] ([facility]) [address] [place], [place] [id number] GAS AND CO AND ELECTROLYTES PANEL Collected: 08/13/2024 10:21 AM Status: F Source: [facility] TYPE CODE TESTS RESULT OUT OF RANGE REFERENCE UNITS LAB 2744-1(LOINC) pH 7.51 High 7.38-7.42 pH LAB 2019-8(LOINC) Carbon dioxide 25 Low 38-42 mm Hg LAB 2703-7(LOINC) Oxygen 72 Low 85-95 mm Hg LAB 2708-6(LOINC) Oxygen saturation 97 94-100 % LAB 2714-4(LOINC) Oxyhemoglobin/ Hemoglobin.tot al 95.3 94.0-98.0 % LAB 26054-3(LOINC) Hematocrit 29.0 Low 36.0-46.0 % LAB 03456-1(LOINC) Sodium 131 Low 136-145 mmol/L LAB 21000-6(LOINC) Potassium 3.7 3.5-5.3 mmol/L LAB 53428-0(INC) Chloride 100 98-107 mmol/L LAB 47480-5([facility]) Calcium.ionize d 1.14 1.10-1.33 mmol/L LAB 05353-5(LOINC) Glucose 148 High 74-99 mg/dL LAB 2518-9(INC) Lactate 2.0 0.4-2.0 mmol/L LAB 1925-7(LOINC) Base excess -2.2 Low -2.0-3.0 mmol/ L LAB 1960-4(LOINC) Bicarbonate 19.9 Low 22.0-26.0 mmol /L LAB 84247-7(INC) Hemoglobin 9.7 Low 12.0-16.0 g/dL LAB 77990-7(LOINC) Anion gap 4 15 10-25 mmo/L LAB 8310-5(LOINC) Body temperature 37.0 degrees Celsius LAB 3150-0([facility] [facility]) Oxygen/Gas.tot al 65 % Performed By: #### 34720-9 # ### STEFANO SYDNI ([id number]) [facility] ([facility]) [address] [place] [address] ECG 12-LEAD Observed: 08/13/2024 8:21 AM Status: F Source: [facility] Ventricular Rate 104 Atrial Rate 104 P-R Interval 130 QRS Duration 146 Q-T Interval 410 QTC Calculation(Bazett) 539 P Aurora 270 R Aurora 96 T Aurora -2 QRS Count 17 Q Onset 211 P Onset 146 P Offset 206 T Offset 416 QTC Fredericia 492 Diagnosis Unusual P axis and short MI, probable junctional tachycardia Rightward axis Nonspecific intraventricular block Abnormal ECG When compared with ECG of 13-AUG-2024 06:22, (unconfirmed) Junctional rhythm has replaced Sinus rhythm QRS axis Shifted left Criteria for Lateral infarct are no longer Present Criteria for Inferior infarct are no longer Present QT has lengthened Confirmed by Cassius Mei ([id number]) on 08/17/2024 11:26:11 AM GLUCOSE Collected: 7:40 AM Status: F Source: [facility] TYPE CODE TESTS RESULT OUT OF RANGE REFERENCE UNITS LAB 2341-6(LOINC) Glucose 179 High 74-99 mg/dL Performed By: #### 2341-6 ## ## STEFANO TROY ([id number]) [facility] ([facility]) [address] [place] [address] XR CHEST 1 VIEW Observed: 08/13/2024 7:24 AM Status: F Source: [facility] Interpreted By: Caitlin Ortega, STUDY: XR CHEST 1 VIEW; 08/13/2024 7:55 am INDICATION: Signs/Symptoms:Chest tube in place. COMPARISON: 08/12/2024 ACCESSION NUMBER(S): [id number] ORDERING CLINICIAN: EH COLON FINDINGS: AP portable view of the chest is obtained. Limited exam due to portable nature. Magnified cardiac silhouette. Sternal wires. Left atrial appendage clip, unchanged. Left basilar effusion and infiltrate. Likely a small right basilar infiltrate. Right apical pneumothorax appears improved with question of very tiny residual.. IMPRESSION: 1. Near-total resolution of the right apical pneumothorax with question of tiny residual. 2. Persistent left basilar effusion and infiltrate for which continued follow-up recommended. Question subtle right basilar infiltrate. MACRO: None Signed by: Chirag Ortega 08/13/2024 8:06 AM Dictation workstation: [id number] ECG 12-LEAD Observed: 08/13/2024 6:22 AM Status: F Source: [facility] Ventricular Rate 99 Atrial Rate 99 P-R Interval 128 QRS Duration 138 Q-T Interval 296 QTC Calculation(Bazett) 379 R Aurora 145 T Aurora 44 QRS Count 16 Q Onset 218 P Onset 96 P Offset 132 T Offset 366 QTC Fredericia 349 Diagnosis Suspect arm lead reversal, interpretation assumes no reversal Normal sinus rhythm Nonspecific intraventricular block Possible Right ventricular hypertrophy Cannot rule out Septal infarct (cited on or before 12-AUG-2024) Lateral infarct (cited on or before 12-AUG-2024) Inferior infarct , age undetermined ACUTE [place] Abnormal ECG When compared with ECG of 12-AUG-2024 17:34, (unconfirmed) MI interval has decreased Serial changes of Septal infarct Present Confirmed by Cassius Mei ([id number]) on 08/17/2024 11:25:29 AM COMPLETE BLOOD COUNT W AUTO DIFFERENTIAL PANEL Collected: 08/13/2024 5:14 AM Status: F Source: [facility] TYPE CODE TESTS RESULT OUT OF RANGE REFERENCE UNITS LAB 6690-2(LOINC) Leukocytes 17.1 High 4.4-11.3 x10*3/ uL LAB 66833-7(LOINC ) Erythrocytes.nuc leated/100 leukocytes 0.0 0.0-0.0 /100 WBCs LAB 789-8(LOINC) Erythrocytes 3.23 Low 4.00-5.20 x10* 6/uL LAB 718-7(LOINC) Hemoglobin 9.9 Low 12.0-16.0 g/dL LAB 4544-3(LOINC) Hematocrit 28.0 Low 36.0-46.0 % LAB 787-2(LOINC) Erythrocyte mean corpuscular volume 87 80-100 fL LAB 785-6(LOINC) Erythrocyte mean corpuscular hemoglobin 30.7 26.0-34.0 pg LAB 786-4(LOINC) Erythrocyte mean corpuscular hemoglobin concentration 35.4 32.0-36.0 g/dL LAB 788-0(LOINC) Erythrocyte distribution width 15.9 High 11.5-14.5 % LAB 777-3(LOINC) Platelets 247 150-450 x10*3/uL LAB 770-8(LOINC) Neutrophils/100 leukocytes 76.2 40.0-80.0 % LAB 10261-3(LOINC ) Granulocytes.imm ature/100 leukocytes 0.9 0.0-0.9 % Result Comment: Immature Gra nulocyte Count (IG) includes promyelocytes, myelocytes and metamyelocytes but does not include bands. Percent differential counts (%) should be interpreted in the context of the absolute cell counts (cells/UL). LAB 736-9(LOINC) Lymphocytes/100 leukocytes 12.8 13.0-44.0 % LAB 5905-5(LOINC) Monocytes/100 leukocytes 9.8 2.0-10.0 % LAB 713-8(LOINC) Eosinophils/100 leukocytes 0.2 0.0-6.0 % LAB 706-2(LOINC) Basophils/100 leukocytes 0.1 0.0-2.0 % LAB 751-8(LOINC) Neutrophils 12.98 High 1.60-5.50 x10*3 /uL Result Comment: Percent diff erential counts (%) should be interpreted in the context of the absolute cell counts (cells/uL). LAB 85383-7(LOINC ) Granulocytes.imm ature 0.16 0.00-0.50 x10*3/uL LAB 731-0(LOINC) Lymphocytes 2.19 0.80-3.00 x10*3 /uL LAB 742-7(LOINC) Monocytes 1.68 High 0.05-0.80 x10*3/u L LAB 711-2(LOINC) Eosinophils 0.03 0.00-0.40 x10*3 /uL LAB 704-7(LOINC) Basophils 0.02 0.00-0.10 x10*3/u L Performed By: #### 18010-8 # ### STEFANO TROY ([id number]) [facility] ([facility]) [address] [place] [address] RENAL FUNCTION 2000 PANEL Collected: 5:14 AM Status: F Source: [facility] TYPE CODE TESTS RESULT OUT OF RANGE REFERENCE UNITS LAB 2345-7(LOINC) Glucose 161 High 74-99 mg/dL LAB 2951-2(LOINC) Sodium 130 Low 136-145 mmol/L LAB 2823-3(LOINC) Potassium 4.0 3.5-5.3 mmol/L LAB 2075-0(LOINC) Chloride 101 98-107 mmol/L LAB 8-9(LOINC) Carbon dioxide 21 21-32 mmol/L LAB 38844-3(LOINC) Anion gap 12 10-20 mmol/L LAB 3094-0(LOINC) Urea nitrogen 37 High 6-23 mg/d L LAB 2160-0(LOINC) Creatinine 0.88 0.50-1.05 mg/dL LAB 93957-9(LOINC) Glomerular filtration rate/1.73 sq M.predicted 69 >60 mL/min/1 .73m*2 Result Comment: Calculations of estimated GFR are performed using the 2020 CKD- EPI Study Refit equation without the race variable for the IDMS-Traceable creatinine methods. https://jasn.asnjournals.org/content/early/ASN.4679475925 LAB 55678-5(LOINC) Calcium 7.7 Low 8.6-10.3 mg/dL LAB 2777-1(LOINC) Phosphate 3.3 2.5-4.9 mg/dL Result Comment: The performa nce characteristics of phosphorus testing in heparinized plasma have been validated by the individual laboratory site where testing is performed. Testing on heparinized plasma is not approved by the FDA; however, such approval is not necessary. LAB 62915-4(LOINC) Albumin 3.4 3.4-5.0 g/dL Performed By: #### 81740-8 # ### STEFANO TROY ([id number]) [facility] ([facility]) [address] [place] [address] BACTERIA IDENTIFIED Observed: 08/12/2024 11:07 PM Status: F Source: [facility] Test: Blood Culture Specimen Source: Peripheral Arterial Puncture Specimen Type: Blood culture Specimen Date: 08/12/20242306 Result Date: 08/17/2024200 Result Status: Final result Abnormal: No Resulting Lab: [facility] [id number] [place] [address] CULTURE No growth at 4 days - FINAL REPORT Performed By: #### 600-7 ### # ZABRINA Villalba ([id number]) [facility] ([facility]) [id number] [place] [address] URINALYSIS MICROSCOPIC PANEL Collected: 08/12/2024 11:06 PM Status: F Source: [facility] TYPE CODE TESTS RESULT OUT OF RANGE REFERENCE UNITS LAB 57660-2(LOINC) Leukocytes 1-5 1-5, NONE /HPF LAB 25124-5(LOINC) Erythrocytes 1-2 NO NE, 1-2, 3-5 /HPF LAB 86101-4(LOINC) Mucus FEW Refer ence range not established. /LPF Performed By: #### 06791-8 # ### STEFANO TROY ([id number]) [facility] ([facility]) [address] [place] [id number] URINALYSIS COMPLETE PANEL Collected: 11:06 PM Status: F Source: [facility] TYPE CODE TESTS RESULT OUT OF RANGE REFERENCE UNITS LAB 5778-6(LOINC) Color Light-Yellow Lig ht-Yellow , Yellow, Dark-Yellow LAB 5767-9(LOINC) Appearance Turbid Normal Clear LAB 27401-5(LOINC) Specific gravity 1.021 1.005-1.035 LAB 67311-0(LOINC) pH 5.0 5.0, 5.5, 6.0, 6.5, 7.0, 7.5, 8.0 LAB 30454-8(LOINC) Protein 20 (TRACE) NEGA TIVE, 10 (TRACE), 20 (TRACE) mg/dL LAB 16686-7(LOINC) Glucose Normal Normal mg/dL LAB 29773-6(LOINC) Erythrocytes 0.2 (2+) Abnormal NEGATIVE LAB 48260-9(LOINC) Ketones NEGATIVE NEGATIVE mg/dL LAB 49359-7(LOINC) Bilirubin NEGATIVE NEGATIVE LAB 83324-5(LOINC) Urobilinogen Normal Normal mg/d L LAB 93060-8(LOINC) Nitrite NEGATIVE NEGATIVE LAB 44265-5(LOINC) Leukocyte esterase NEGATIVE NEGATIVE Performed By: #### 24724-8 # ### STEFANO TROY ([id number]) [facility] ([facility]) [address] [place] [address] LEGIONELLA SP AG Observed: 08/12/2024 11:06 PM Status: F Source: [facility] Legionella sp Ag Negative Performed By: #### 60252-8 # ### ZABRINA Villalba ([id number]) [facility] ([facility]) [id number] [place] [address] STREPTOCOCCUS PNEUMONIAE AG Observed: 11:06 PM Status: F Source: [facility] Streptococcus pneumoniae Ag Negative Performed By: #### 83946-1 # ### ZABRINA Villalba ([id number]) [facility] ([facility]) [address] [place] [address] GLUCOSE Collected: 8:47 PM Status: F Source: [facility] TYPE CODE TESTS RESULT OUT OF RANGE REFERENCE UNITS LAB 2341-6(LOINC) Glucose 151 High 74-99 mg/dL Performed By: #### 2341-6 ## ## STEFANO TROY ([id number]) [facility] ([facility]) [address] [place] [place] [id number] MAGNESIUM Collected: 4 8:02 PM Status: F Source: [facility] TYPE CODE TESTS RESULT OUT OF RANGE REFERENCE UNITS LAB 13789-6(LOINC) Magnesium 2.90 High 1.60-2.40 mg/dL Performed By: #### 48709-4 # ### STEFANO TROY ([id number]) [facility] ([facility]) [address] [place], [place] [id number] RENAL FUNCTION 2000 PANEL Collected: 8:02 PM Status: F Source: [facility] TYPE CODE TESTS RESULT OUT OF RANGE REFERENCE UNITS LAB 2345-7(LOINC) Glucose 180 High 74-99 mg/dL LAB 2951-2(LOINC) Sodium 132 Low 136-145 mmol/L LAB 2823-3(LOINC) Potassium 4.0 3.5-5.3 mmol/L LAB 2075-0(LOINC) Chloride 102 98-107 mmol/L LAB 2027-9(LOINC) Carbon dioxide 21 21-32 mmol/L LAB 31581-1(LOINC) Anion gap 13 10-20 mmol/L LAB 3094-0(LOINC) Urea nitrogen 34 High 6-23 mg/d L LAB 2160-0(LOINC) Creatinine 0.92 0.50-1.05 mg/dL LAB 91114-5(LOINC) Glomerular filtration rate/1.73 sq M.predicted 65 >60 mL/min/1 .73m*2 Result Comment: Calculations of estimated GFR are performed using the 2020 CKD- EPI Study Refit equation without the race variable for the IDMS-Traceable creatinine methods. https://jasn.asnjournals.org/content///ASN.6506445152 LAB 80504-0(LOINC) Calcium 7.9 Low 8.6-10.3 mg/dL LAB 2777-1(LOINC) Phosphate 2.9 2.5-4.9 mg/dL Result Comment: The performa nce characteristics of phosphorus testing in heparinized plasma have been validated by the individual laboratory site where testing is performed. Testing on heparinized plasma is not approved by the FDA; however, such approval is not necessary. LAB 25784-2(LOINC) Albumin 3.4 3.4-5.0 g/dL Performed By: #### 18538-9 # ### STEFANO TROY ([id number]) [facility] ([facility]) [address] [place] [id number] COMPLETE BLOOD COUNT PANEL Collected: 08/12/2024 6:12 PM Status: F Source: [facility] TYPE CODE TESTS RESULT OUT OF RANGE REFERENCE UNITS LAB 6690-2(LOINC) Leukocytes 19.2 High 4.4-11.3 x10*3/ uL LAB 45863-6(LOINC) Erythrocytes.nuc l eated/100 leukocytes 0.0 0.0-0.0 /100 WBCs LAB 789-8(LOINC) Erythrocytes 3.42 Low 4.00-5.20 x10* 6/uL LAB 718-7(LOINC) Hemoglobin 10.3 Low 12.0-16.0 g/dL LAB 4544-3(LOINC) Hematocrit 30.2 Low 36.0-46.0 % LAB 787-2(LOINC) Erythrocyte mean corpuscular volume 88 80-100 fL LAB 785-6(LOINC) Erythrocyte mean corpuscular hemoglobin 30.1 26.0-34.0 pg LAB 786-4(LOINC) Erythrocyte mean corpuscular hemoglobin concentration 34.1 32.0-36.0 g/dL LAB 788-0(LOINC) Erythrocyte distribution width 16.0 High 11.5-14.5 % LAB 777-3(LOINC) Platelets 237 150-450 x10*3/uL Performed By: #### 62124-8 # ### STEFANO TROY ([id number]) [facility] ([facility]) [address] [place] [address] COMPLETE BLOOD COUNT W AUTO DIFFERENTIAL PANEL Collected: 08/12/2024 6:12 PM Status: F Source: [facility] TYPE CODE TESTS RESULT OUT OF RANGE REFERENCE UNITS LAB 6690-2(LOINC) Leukocytes 19.2 High 4.4-11.3 x10*3/ uL LAB 97874-0(LOINC ) Erythrocytes.nuc leated/100 leukocytes 0.0 0.0-0.0 /100 WBCs LAB 789-8(LOINC) Erythrocytes 3.42 Low 4.00-5.20 x10* 6/uL LAB 718-7(LOINC) Hemoglobin 10.3 Low 12.0-16.0 g/dL LAB 4544-3(LOINC) Hematocrit 30.2 Low 36.0-46.0 % LAB 787-2(LOINC) Erythrocyte mean corpuscular volume 88 80-100 fL LAB 785-6(LOINC) Erythrocyte mean corpuscular hemoglobin 30.1 26.0-34.0 pg LAB 786-4(LOINC) Erythrocyte mean corpuscular hemoglobin concentration 34.1 32.0-36.0 g/dL LAB 788-0(LOINC) Erythrocyte distribution width 16.0 High 11.5-14.5 % LAB 777-3(LOINC) Platelets 237 150-450 x10*3/uL LAB 770-8(LOINC) Neutrophils/100 leukocytes 75.1 40.0-80.0 % LAB 01715-1(LOINC ) Granulocytes.imm ature/100 leukocytes 0.7 0.0-0.9 % Result Comment: Immature Gra nulocyte Count (IG) includes promyelocytes, myelocytes and metamyelocytes but does not include bands. Percent differential counts (%) should be interpreted in the context of the absolute cell counts (cells/UL). LAB 736-9(LOINC) Lymphocytes/100 leukocytes 12.3 13.0-44.0 % LAB 5905-5(LOINC) Monocytes/100 leukocytes 11.7 2.0-10.0 % LAB 713-8(LOINC) Eosinophils/100 leukocytes 0.1 0.0-6.0 % LAB 706-2(LOINC) Basophils/100 leukocytes 0.1 0.0-2.0 % LAB 751-8(LOINC) Neutrophils 13.84 High 1.60-5.50 x10*3 /uL Result Comment: Percent diff erential counts (%) should be interpreted in the context of the absolute cell counts (cells/uL). LAB 66068-3(LOINC ) Granulocytes.imm ature 0.13 0.00-0.50 x10*3/uL LAB 731-0(LOINC) Lymphocytes 2.27 0.80-3.00 x10*3 /uL LAB 742-7(LOINC) Monocytes 2.16 High 0.05-0.80 x10*3/u L LAB 711-2(LOINC) Eosinophils 0.02 0.00-0.40 x10*3 /uL LAB 704-7(LOINC) Basophils 0.02 0.00-0.10 x10*3/u L Performed By: #### 52019-2 # ### STEFANO TROY ([id number]) [facility] ([facility]) [facility] [place] [address] GAS PANEL Collected: 08/12/2024 6:02 PM Status: F Source: [facility] Order Comment: Please obtain from distal port of CVC Bedside RN to obtain sample TYPE CODE TESTS RESULT OUT OF RANGE REFERENCE UNITS LAB 2746-6(LOINC) pH 7.39 7.33-7.43 pH LAB 2020-4(LOINC) Carbon dioxide 33 Low 41-51 mm Hg LAB 2705-2(LOINC) Oxygen 30 Low 35-45 mm Hg LAB 2711-0(LOINC) Oxygen saturation 50 45-75 % LAB 2716-9(LOINC) Oxyhemoglobin/H emoglobin.total 49.5 45.0-75.0 % LAB 02925-0(LOINC) Hematocrit 31.0 Low 36.0-46.0 % LAB 33710-9(LOINC) Sodium 130 Low 136-145 mmol/L LAB 44658-1(LOINC) Potassium 4.0 3.5-5.3 mmol/L LAB 30519-5(LOINC) Chloride 103 98-107 mmol/L LAB 07900-6(LOINC) Calcium.ionized 1.11 1.10-1.33 mmol/L LAB 46340-6([facility]) Glucose 189 High 74-99 mg/dL LAB 2519-7([facility]) Lactate 2.3 High 0.4-2.0 mmol/L LAB 1927-3([facility]) Base excess -4.3 Low -2.0-3.0 mmol/ L LAB 09554-7([facility]) Bicarbonate 20.0 Low 22.0-26.0 mmo l/L LAB 25394-6([facility]) Hemoglobin 10.2 Low 12.0-16.0 g/dL LAB 78150-8([facility]) Anion gap 4 11.0 10.0-25.0 mmo l/L LAB 8310-5([facility]) Body temperature 37.0 degrees Celsius LAB 3150-0([facility]) Oxygen/Gas.tota l 90 % LAB FLOWA FLOW 60.0 LPM Performed By: #### 70610-9 # ### STEFANO TROY ([id number]) [facility] ([facility]) [address] [place] [address] LACTATE Collected: 6:02 PM Status: F Source: [facility] TYPE CODE TESTS RESULT OUT OF RANGE REFERENCE UNITS LAB 2519-7([facility]) Lactate 2.3 High 0.4-2.0 mmol/L Performed By: #### 2519-7 ## ## STEFANO TROY ([id number]) [facility] ([facility]) [address] [place] [address] GAS AND CO AND ELECTROLYTES PANEL Collected: 08/12/2024 5:59 PM Status: F Source: [facility] TYPE CODE TESTS RESULT OUT OF RANGE REFERENCE UNITS LAB 2744-1([facility]) pH 7.46 High 7.38-7.42 pH LAB 2019-8([facility]) Carbon dioxide 26 Low 38-42 mm Hg LAB 2703-7(INC) Oxygen 117 High 85-95 mm Hg LAB 2708-6([facility]) Oxygen saturation 100 94-100 % LAB 2714-4([facility]) Oxyhemoglobin/ Hemoglobin.tot al 97.3 94.0-98.0 % LAB 27716-4([facility]) Hematocrit 31.0 Low 36.0-46.0 % LAB 18462-5(INC) Sodium 130 Low 136-145 mmol/L LAB 80144-4(INC) Potassium 4.3 3.5-5.3 mmol/L LAB 87809-9(INC) Chloride 100 98-107 mmol/L LAB 79128-8([facility]) Calcium.ionize d 1.17 1.10-1.33 mmol/L LAB 00064-9([facility]) Glucose 213 High 74-99 mg/dL LAB 2518-9(INC) Lactate 2.4 High 0.4-2.0 mmol/L LAB 1925-7([facility]) Base excess -4.2 Low -2.0-3.0 mmol/ L LAB 1960-4([facility]) Bicarbonate 18.5 Low 22.0-26.0 mmol /L LAB 52279-3(INC) Hemoglobin 10.4 Low 12.0-16.0 g/dL LAB 43430-9([facility]) Anion gap 4 16 10-25 mmo/L LAB 8310-5([facility]) Body temperature 37.0 degrees Celsius LAB 3150-0([facility]) Oxygen/Gas.tot al 90 % LAB APPAR APPARATUS HIGH FLOW CANNULA LAB FLOWA FLOW 60.0 LPM LAB 13993-7([facility]) Specimen drawn from Arterial Line Performed By: #### 83110-2 # ### STEFANO TROY ([id number]) [facility] ([facility]) [address] [place] [address] ECG 12-LEAD Observed: 08/12/2024 5:34 PM Status: F Source: [facility] Ventricular Rate 99 Atrial Rate 99 P-R Interval 288 QRS Duration 132 Q-T Interval 318 QTC Calculation(Bazett) 408 R Aurora 106 T Aurora 22 QRS Count 16 Q Onset 217 T Offset 376 QTC Fredericia 375 Diagnosis Sinus rhythm with 1st degree AV block Nonspecific intraventricular block Anterolateral infarct (cited on or before 12-AUG-2024) Abnormal ECG When compared with ECG of 12-AUG-2024 08:32, Sinus rhythm has replaced Atrial fibrillation Questionable change in initial forces of Anterolateral leads Confirmed by Alexy Montana ([id number]) on 08/13/2024 10:22:47 AM PT AND APTT PANEL Collected: 4:54 PM Status: F Source: [facility] Order Comment: The APTT is n o longer used for monitoring Unfractionated Heparin Therapy. For monitoring Heparin Therapy, use the Heparin Assay. TYPE CODE TESTS RESULT OUT OF RANGE REFERENCE UNITS LAB 5902-2(LOINC) Coagulation tissue factor induced 17.0 High 9.8-12.8 seconds LAB 6301-6(LOINC) Coagulation tissue factor induced.INR 1.5 High 0.9-1.1 NA LAB 44496-7(LOINC) Coagulation surface induced 31 27-38 seconds Performed By: #### 84982-6 # ### STEFANO SYDNI ([id number]) [facility] ([facility]) [address] [place] [address] GAS AND CO AND ELECTROLYTES PANEL Collected: 08/12/2024 4:47 PM Status: F Source: [facility] TYPE CODE TESTS RESULT OUT OF RANGE REFERENCE UNITS LAB 2744-1(LOINC) pH 7.55 High 7.38-7.42 pH LAB 2019-8(LOINC) Carbon dioxide 20 Low 38-42 mm Hg LAB 2703-7(LOINC) Oxygen 58 Low 85-95 mm Hg LAB 2708-6(LOINC) Oxygen saturation 94 94-100 % LAB 2714-4(LOINC) Oxyhemoglobin/ Hemoglobin.tot al 91.6 Low 94.0-98.0 % LAB 95316-1(LOINC) Hematocrit 33.0 Low 36.0-46.0 % LAB 40926-3(LOINC) Sodium 128 Low 136-145 mmol/L LAB 71130-4(LOINC) Potassium 4.2 3.5-5.3 mmol/L LAB 41853-4(LOINC) Chloride 105 98-107 mmol/L LAB 37266-6(LOINC) Calcium.ionize d 1.13 1.10-1.33 mmol/L LAB 93674-8(LOINC) Glucose 214 High 74-99 mg/dL LAB 2518-9(LOINC) Lactate 2.4 High 0.4-2.0 mmol/L LAB 1925-7(LOINC) Base excess -3.2 Low -2.0-3.0 mmol/ L LAB 1960-4(LOINC) Bicarbonate 17.5 Low 22.0-26.0 mmol /L LAB 93826-3(LOINC) Hemoglobin 11.1 Low 12.0-16.0 g/dL LAB 99422-5(LOINC) Anion gap 4 10 10-25 mmo/L LAB 8310-5(LOINC) Body temperature 37.0 degrees Celsius LAB 3150-0(LOINC) Oxygen/Gas.tot al 80 % Performed By: #### 86995-6 # ### STEFANO SYDNI ([id number]) [facility] ([facility]) [address] [place] [address] XR CHEST 1 VIEW Observed: 08/12/2024 4:45 PM Status: F Source: [facility] Interpreted By: Ezra Sharp [facility] zuly, STUDY: XR CHEST 1 VIEW; 08/12/2024 5:11 pm INDICATION: Signs/Symptoms:SPO2 88% and hypotensive. COMPARISON: X-ray chest 08/12/2024 ACCESSION NUMBER(S): [id number] ORDERING CLINICIAN: AGUS GRAHAM FINDINGS: Stable cardiomediastinal silhouette. Small right apical pneumothorax. Right IJ central venous catheter tip stable in position. Bibasilar opacities and small bilateral pleural effusions. IMPRESSION: 1. Stable exam. Small right apical pneumothorax. MACRO: None Signed by: Lenard Munguia 08/12/2024 6:05 PM Dictation workstation: [id number] TRANSTHORACIC ECHO (TTE) LIMITED Observed: 08/12/2024 4:14 PM Status: F Source: [facility], [address] [place] [address] and TRANSTHORACIC ECHOCARDIOGRAM REPORT Patient Name: BOB Hancock Physician: [id number] Kevin Kenyon MD Study Date: 08/12/2024 Ordering Provider: [id number] EH COLON MRN/PID: [id number] Fellow: Nurse: Date of /Age: 3 1950 [employer] Specialist: Erik smith RDCS Gender assigned at F Additional Staff: Nelson Flores : Height: 175.00 cm Admit Date: 08/10/2024 Weight: 83.00 kg Admission Status: Inpatient - STAT BSA / BMI: 1.99 m2 / 27.10 kg/m2 Blood Pressure: 101/61 mmHg Department Location: [facility] Study Type: TRANSTHORACIC ECHO (TTE) LIMITED Diagnosis/ICD: Postprocedural hypotension-I95.81 Indication: Hypotension S/P Ascending Aorta Replacement CPT Code: Echo Limited-20715; Doppler Limited-82681; Color Doppler-33703 Patient History: Pertinent History: Aneurysm of ascending aorta, PHTN,. 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 Study Detail: The following Echo studies were performed: 2D, M-Mode, Doppler and color flow. Unable to obtain subcostal and suprasternal notch view. A bubble study was not performed. PHYSICIAN INTERPRETATION: Left Ventricle: Left ventricular ejection fraction is mildly decreased, calculated by Torres's biplane at 49%. There are no regional left ventricular wall motion abnormalities. The left ventricular cavity size was not assessed. Abnormal (paradoxical) septal motion consistent with post-operative status. Left ventricular diastolic filling was not assessed. Left Atrium: The left atrium was not assessed. A bubble study using agitated saline was not performed. Right Ventricle: The right ventricle was not assessed. There is reduced right ventricular systolic function. Right Atrium: The right atrium was not assessed. Aortic Valve: The aortic valve is trileaflet. There is no evidence of aortic valve regurgitation. Mitral Valve: The mitral valve is normal in structure. There is mild mitral valve regurgitation. Tricuspid Valve: The tricuspid valve was not well visualized. There is trace tricuspid regurgitation. Pulmonic Valve: The pulmonic valve is not well visualized. Pulmonic valve regurgitation was not assessed. Pericardium: Trivial pericardial effusion posterior to the left ventricle. Pleural: There is a large left pleural effusion. Aorta: The aortic root was not assessed. In comparison to the previous echocardiogram(s): Compared with study dated 08/10/2024, there is a large pleural effusion now present. The ejection fraction is somewhat lower. There is less tricuspid regurgitation. CONCLUSIONS: 1. Poorly visualized anatomical structures due to suboptimal image quality. 2. Left ventricular ejection fraction is mildly decreased, calculated by Torres's biplane at 49%. 3. Abnormal septal motion consistent with post-operative status. 4. There is reduced right ventricular systolic function. 5. There is a large pleural effusion. 6. Trivial pericardial effusion. 7. Mild mitral valve regurgitation. QUANTITATIVE DATA SUMMARY: 2D MEASUREMENTS: Normal Ranges: LVEDV Index: 43 ml/m2 LV SYSTOLIC FUNCTION BY 2D PLANIMETRY (MOD): Normal Ranges: EF-A4C View: 58 % (>=55%) EF-A2C View: 44 % EF-Biplane: 49 % LV EF Reported: 49 % RIGHT VENTRICLE: TAPSE: 20.9 mm [id number] Kevin Kenyon MD Electronically signed on 08/12/2024 at 6:18:22 PM Final GLUCOSE Collected: 3:27 PM Status: F Source: [facility] TYPE CODE TESTS RESULT OUT OF RANGE REFERENCE UNITS LAB 2341-6(LOINC) Glucose 193 High 74-99 mg/dL Performed By: #### 2341-6 ## ## STEFANO TROY ([id number]) [facility] ([facility]) [address] [place] [address] HEMOGLOBIN AND HEMATOCRIT PANEL Collect ed: 08/12/2024 2:51 PM Status: F Source: [facility] TYPE CODE TESTS RESULT OUT OF RANGE REFERENCE UNITS LAB 718-7(LOINC) Hemoglobin 10.3 Low 12.0-16.0 g/dL LAB 4544-3(LOINC) Hematocrit 30.1 Low 36.0-46.0 % Performed By: #### 53007-2 # ### STEFANO TROY ([id number]) [facility] ([facility]) [address] [place], [place] [id number] GLUCOSE Collected: 4 11:51 AM Status: F Source: [facility] TYPE CODE TESTS RESULT OUT OF RANGE REFERENCE UNITS LAB 2341-6(LOINC) Glucose 178 High 74-99 mg/dL Performed By: #### 2341-6 ## ## STEFANO TROY ([id number]) [facility] ([facility]) [address] [place], [place] [id number] ECG 12-LEAD Observed: 08/12/2024 8:32 AM Status: F Source: [facility] Ventricular Rate 121 Atrial Rate 133 QRS Duration 130 Q-T Interval 350 QTC Calculation(Bazett) 497 R Aurora 89 T Aurora 47 QRS Count 20 Q Onset 213 T Offset 388 QTC Fredericia 442 Diagnosis Atrial fibrillation with rapid ventricular response Low voltage QRS Nonspecific intraventricular block Cannot rule out Septal infarct , age undetermined Possible Lateral infarct , age undetermined Abnormal ECG Confirmed by Garrick Díaz ([id number]) on 08/12/2024 11:41:30 AM GLUCOSE Collected: 7:48 AM Status: F Source: [facility] TYPE CODE TESTS RESULT OUT OF RANGE REFERENCE UNITS LAB 2341-6(LOINC) Glucose 130 High 74-99 mg/dL Performed By: #### 2341-6 ## ## STEFANO SYDNI ([id number]) [facility] ([facility]) [facility] [place] [address] XR CHEST 1 VIEW Observed: 08/12/2024 7:27 AM Status: F Source: [facility] Interpreted By: Miller Hussein, STUDY: XR CHEST 1 VIEW; 08/12/2024 7:39 am INDICATION: Signs/Symptoms:ct in place s/p Aortic root replacement. COMPARISON: Chest x-rays, most recent from 08/11/2024 at 4:24 a.m. ACCESSION NUMBER(S): [id number] ORDERING CLINICIAN: EH COLON TECHNIQUE: Single AP portable view of the chest was obtained. FINDINGS: MEDIASTINUM/ LUNGS/ PATRIC: Status post heart surgery. Stable left basilar chest tube. Stable medial right basilar chest tube. Right IJ vein catheter is stable. There is a tiny sliver of right apical pneumothorax, slightly improved. No left-sided pneumothorax. Stable cardiomegaly. No gross vascular congestion. Stable atelectasis at the medial right base. Pleural and parenchymal opacities at the left base, unchanged. No tracheal deviation. No abnormal hilar fullness or gross mass on either side. BONES: No lytic or blastic destructive bone lesion. UPPER ABDOMEN: Grossly intact. IMPRESSION: Recent heart surgery. Stable right IJ vein catheter and bibasilar chest tubes. Decrease in size of now tiny right apical pneumothorax. Stable pleural and parenchymal opacities at the left base. Stable atelectasis at the medial right lung base. Cardiomegaly. MACRO: None Signed by: Rob Hussein 08/12/2024 8:04 AM Dictation workstation: [id number] MAGNESIUM Collected: 6:06 AM Status: F Source: [facility] TYPE CODE TESTS RESULT OUT OF RANGE REFERENCE UNITS LAB 70893-7(LOINC) Magnesium 1.87 1.60-2.40 mg/dL Performed By: #### 61947-2 # ### STEFANO SYDNI ([id number]) [facility] ([facility]) [address] [place] [address] RENAL FUNCTION 2000 PANEL Collected: 6:06 AM Status: F Source: [facility] TYPE CODE TESTS RESULT OUT OF RANGE REFERENCE UNITS LAB 2345-7(LOINC) Glucose 127 High 74-99 mg/dL LAB 2951-2(LOINC) Sodium 136 136-145 mmol/L LAB 2823-3(LOINC) Potassium 4.2 3.5-5.3 mmol/L LAB 2075-0(LOINC) Chloride 105 98-107 mmol/L LAB 2027-9(LOINC) Carbon dioxide 25 21-32 mmol/L LAB 82532-1(LOINC) Anion gap 10 10-20 mmol/L LAB 3094-0(LOINC) Urea nitrogen 29 High 6-23 mg/d L LAB 2160-0(LOINC) Creatinine 0.64 0.50-1.05 mg/dL LAB 90431-9(LOINC) Glomerular filtration rate/1.73 sq M.predicted >90 >60 mL/min/1 .73m*2 Result Comment: Calculations of estimated GFR are performed using the 2020 CKD- EPI Study Refit equation without the race variable for the IDMS-Traceable creatinine methods. https://jasn.asnjournals.org/content/early//ASN.9403024337 LAB 40785-4(LOINC) Calcium 8.2 Low 8.6-10.3 mg/dL LAB 2777-1(LOINC) Phosphate 2.0 Low 2.5-4.9 mg/dL Result Comment: The performa nce characteristics of phosphorus testing in heparinized plasma have been validated by the individual laboratory site where testing is performed. Testing on heparinized plasma is not approved by the FDA; however, such approval is not necessary. LAB 78348-1(LOINC) Albumin 3.4 3.4-5.0 g/dL Performed By: #### 63878-8 # ### STEFANO TROY ([id number]) [facility] ([facility]) [address] [place] [address] COMPLETE BLOOD COUNT PANEL Collected: 08/12/2024 6:06 AM Status: F Source: [facility] TYPE CODE TESTS RESULT OUT OF RANGE REFERENCE UNITS LAB 6690-2(LOINC) Leukocytes 12.4 High 4.4-11.3 x10*3/ uL LAB 10868-0(LOINC) Erythrocytes.nuc l eated/100 leukocytes 0.0 0.0-0.0 /100 WBCs LAB 789-8(LOINC) Erythrocytes 3.05 Low 4.00-5.20 x10* 6/uL LAB 718-7(LOINC) Hemoglobin 9.0 Low 12.0-16.0 g/dL LAB 4544-3(LOINC) Hematocrit 27.7 Low 36.0-46.0 % LAB 787-2(LOINC) Erythrocyte mean corpuscular volume 91 80-100 fL LAB 785-6(LOINC) Erythrocyte mean corpuscular hemoglobin 29.5 26.0-34.0 pg LAB 786-4(LOINC) Erythrocyte mean corpuscular hemoglobin concentration 32.5 32.0-36.0 g/dL LAB 788-0(LOINC) Erythrocyte distribution width 16.1 High 11.5-14.5 % LAB 777-3(LOINC) Platelets 186 150-450 x10*3/uL Performed By: #### 02172-0 # ### STEFANO TROY ([id number]) [facility] ([facility]) [address] [place] [place] [id number] COMPLETE BLOOD COUNT PANEL Collected: 08/12/2024 1:40 AM Status: F Source: [facility] TYPE CODE TESTS RESULT OUT OF RANGE REFERENCE UNITS LAB 6690-2(LOINC) Leukocytes 11.0 4.4-11.3 x10*3/ uL LAB 67751-4(LOINC) Erythrocytes.nuc l eated/100 leukocytes 0.0 0.0-0.0 /100 WBCs LAB 789-8(LOINC) Erythrocytes 2.99 Low 4.00-5.20 x10* 6/uL LAB 718-7(LOINC) Hemoglobin 9.0 Low 12.0-16.0 g/dL LAB 4544-3(LOINC) Hematocrit 25.4 Low 36.0-46.0 % LAB 787-2(LOINC) Erythrocyte mean corpuscular volume 85 80-100 fL LAB 785-6(LOINC) Erythrocyte mean corpuscular hemoglobin 30.1 26.0-34.0 pg LAB 786-4(LOINC) Erythrocyte mean corpuscular hemoglobin concentration 35.4 32.0-36.0 g/dL LAB 788-0(LOINC) Erythrocyte distribution width 14.8 High 11.5-14.5 % LAB 777-3(LOINC) Platelets 182 150-450 x10*3/uL Performed By: #### 86723-5 # ### STEFANO TROY ([id number]) [facility] ([facility]) [address] [place] [address] GLUCOSE Collected: 8:23 PM Status: F Source: [facility] TYPE CODE TESTS RESULT OUT OF RANGE REFERENCE UNITS LAB 2341-6([facility]) Glucose 123 High 74-99 mg/dL Performed By: #### 2341-6 ## ## STEFANO TROY ([id number]) [facility] ([facility]) [address] [place] [id number] GAS PANEL Collected: 08/11/2024 3:59 PM Status: F Source: [facility] Order Comment: Place draw fr om CVP port TYPE CODE TESTS RESULT OUT OF RANGE REFERENCE UNITS LAB 2746-6(LOINC) pH 7.41 7.33-7.43 pH LAB 2020-4(LOINC) Carbon dioxide 38 Low 41-51 mm Hg LAB 2705-2(LOINC) Oxygen 36 35-45 mm Hg LAB 2711-0(LOINC) Oxygen saturation 58 45-75 % LAB 2716-9(LOINC) Oxyhemoglobin/H emoglobin.total 57.2 45.0-75.0 % LAB 09638-5(LOINC) Hematocrit 29.0 Low 36.0-46.0 % LAB 38928-6(LOINC) Sodium 134 Low 136-145 mmol/L LAB 22467-5([facility]) Potassium 4.2 3.5-5.3 mmol/L LAB 06097-5([facility]) Chloride 104 98-107 mmol/L LAB 74989-9([facility]) Calcium.ionized 1.21 1.10-1.33 mmol/L LAB 69074-9([facility]) Glucose 172 High 74-99 mg/dL LAB 2519-7([facility]) Lactate 2.7 High 0.4-2.0 mmol/L LAB 1927-3([facility]) Base excess -0.4 -2.0-3.0 mmol/ L LAB 30612-7([facility]) Bicarbonate 24.1 22.0-26.0 mmo l/L LAB 60306-7([facility]) Hemoglobin 9.6 Low 12.0-16.0 g/dL LAB 52204-2([facility]) Anion gap 4 10.0 10.0-25.0 mmo l/L LAB 8310-5([facility]) Body temperature 37.0 degrees Celsius LAB 3150-0([facility]) Oxygen/Gas.tota l 28 % Result Comment: 1L NC Performed By: #### 53840-4 # ### STEFANO TROY ([id number]) [facility] ([facility]) [address] [place], [place] [id number] GLUCOSE Collected: 4 3:36 PM Status: F Source: [facility] TYPE CODE TESTS RESULT OUT OF RANGE REFERENCE UNITS LAB 2341-6([facility]) Glucose 155 High 74-99 mg/dL Performed By: #### 2341-6 ## ## STEFANO TROY ([id number]) [facility] ([facility]) [address] [place] [address] GLUCOSE Collected: 4 11:32 AM Status: F Source: [facility] TYPE CODE TESTS RESULT OUT OF RANGE REFERENCE UNITS LAB 2341-6([facility]) Glucose 151 High 74-99 mg/dL Performed By: #### 2341-6 ## ## STEFANO SYDNI ([id number]) [facility] ([facility]) [address] [place] [address] GLUCOSE Collected: 4 7:55 AM Status: F Source: [facility] TYPE CODE TESTS RESULT OUT OF RANGE REFERENCE UNITS LAB 2341-6(LOINC) Glucose 158 High 74-99 mg/dL Performed By: #### 2341-6 ## ## STEFANO TROY ([id number]) [facility] ([facility]) [address] [place] [address] COMPLETE BLOOD COUNT PANEL Collected: 08/11/2024 4:17 AM Status: F Source: [facility] TYPE CODE TESTS RESULT OUT OF RANGE REFERENCE UNITS LAB 6690-2(LOINC) Leukocytes 9.5 4.4-11.3 x10*3/ uL LAB 22834-7(LOINC) Erythrocytes.nuc l eated/100 leukocytes 0.0 0.0-0.0 /100 WBCs LAB 789-8(LOINC) Erythrocytes 2.54 Low 4.00-5.20 x10* 6/uL LAB 718-7(LOINC) Hemoglobin 7.6 Low 12.0-16.0 g/dL LAB 4544-3(LOINC) Hematocrit 23.6 Low 36.0-46.0 % LAB 787-2(LOINC) Erythrocyte mean corpuscular volume 93 80-100 fL LAB 785-6(LOINC) Erythrocyte mean corpuscular hemoglobin 29.9 26.0-34.0 pg LAB 786-4(LOINC) Erythrocyte mean corpuscular hemoglobin concentration 32.2 32.0-36.0 g/dL LAB 788-0(LOINC) Erythrocyte distribution width 13.4 11.5-14.5 % LAB 777-3(LOINC) Platelets 230 150-450 x10*3/uL Performed By: #### 39097-7 # ### STEFANO TROY ([id number]) [facility] ([facility]) [address] [place] [address] MAGNESIUM Collected: 4:17 AM Status: F Source: [facility] TYPE CODE TESTS RESULT OUT OF RANGE REFERENCE UNITS LAB 68393-3(LOINC) Magnesium 2.16 1.60-2.40 mg/dL Performed By: #### 98639-1 # ### STEFANO TROY ([id number]) [facility] ([facility]) [address] [place] [address] RENAL FUNCTION 2000 PANEL Collected: 4:17 AM Status: F Source: [facility] TYPE CODE TESTS RESULT OUT OF RANGE REFERENCE UNITS LAB 2345-7(LOINC) Glucose 187 High 74-99 mg/dL LAB 2951-2(LOINC) Sodium 137 136-145 mmol/L LAB 2823-3(LOINC) Potassium 4.1 3.5-5.3 mmol/L LAB 2075-0(LOINC) Chloride 107 98-107 mmol/L LAB 2028-9(LOINC) Carbon dioxide 22 21-32 mmol/L LAB 30110-8(LOINC) Anion gap 12 10-20 mmol/L LAB 3094-0(LOINC) Urea nitrogen 24 High 6-23 mg/d L LAB 2160-0(LOINC) Creatinine 0.76 0.50-1.05 mg/dL LAB 03199-0(LOINC) Glomerular filtration rate/1.73 sq M.predicted 82 >60 mL/min/1 .73m*2 Result Comment: Calculations of estimated GFR are performed using the 2020 CKD- EPI Study Refit equation without the race variable for the IDMS-Traceable creatinine methods. https://jasn.asnjournals.org/content/early//ASN.0050504356 LAB 43036-1(LOINC) Calcium 7.7 Low 8.6-10.3 mg/dL LAB 2777-1(LOINC) Phosphate 3.3 2.5-4.9 mg/dL Result Comment: The performa nce characteristics of phosphorus testing in heparinized plasma have been validated by the individual laboratory site where testing is performed. Testing on heparinized plasma is not approved by the FDA; however, such approval is not necessary. LAB 91629-9(LOINC) Albumin 3.6 3.4-5.0 g/dL Performed By: #### 73262-7 # ### STEFANO SYDNI ([id number]) [facility] ([facility]) [address] [place] [address] COAGULATION FACTOR VIII ACTIVITY ACTUAL/NORMAL Collected: 08/11/2024 4:17 AM Status: F Sour e: [facility] TYPE CODE TESTS RESULT OUT OF RANGE REFERENCE UNITS LAB 3209-4(LOINC) Coagulation factor VIII activity actual/Normal 108 55-180 % Performed By: #### 3209-4 ## ## ZABRINA Villalba ([id number]) [facility] ([facility]) [address] [place] [address] XR CHEST 1 VIEW Observed: 08/11/2024 12:00 AM Status: F Source: [facility] Order Comment: Tomorrow in [facility] Interpreted By: Miller Hussein, STUDY: XR CHEST 1 VIEW; 08/11/2024 4:53 am INDICATION: Signs/Symptoms:Post op cardiac surgery. COMPARISON: Most recent prior is from 08/10/2024. ACCESSION NUMBER(S): [id number] ORDERING CLINICIAN: TAMI NELSON TECHNIQUE: Single AP portable view of the chest was obtained. FINDINGS: MEDIASTINUM/ LUNGS/ PATRIC: Status post recent heart surgery. Stable cardiomegaly without gross vascular congestion. Progression of pleural and parenchymal opacities at the left base. Mild stable haziness at the medial right base. Endotracheal tube and nasogastric tube have been removed. Stable right IJ vein catheter. Stable chest tubes and mediastinal drainage catheter. No identifiable left-sided pneumothorax today. However, there is a small right apical pneumothorax which is mildly improved in retrospect. No tracheal deviation. No abnormal hilar fullness or gross mass on either side. BONES: No lytic or blastic destructive bone lesion. UPPER ABDOMEN: Grossly intact. IMPRESSION: Recent heart surgery. ET tube and NG tube have been removed. Remaining tubes and lines in place as described. No identifiable left-sided pneumothorax today. Small right apical pneumothorax, improved in retrospect compared to the prior exam. Progression of left pleural effusion with associated atelectasis/pneumonia at the left lung base. Mild stable hazy atelectasis versus infiltrate at the medial right base. MACRO: None Signed by: Rob Hussein 08/11/2024 8:18 AM Dictation workstation: [id number] GLUCOSE Collected: 7:42 PM Status: F Source: [facility] TYPE CODE TESTS RESULT OUT OF RANGE REFERENCE UNITS LAB 2341-6(LOINC) Glucose 173 High 74-99 mg/dL Performed By: #### 2341-6 ## ## STEFANO TROY ([id number]) [facility] ([facility]) [address] [place] [id number] GLUCOSE Collected: 3:52 PM Status: F Source: [facility] TYPE CODE TESTS RESULT OUT OF RANGE REFERENCE UNITS LAB 2341-6(LOINC) Glucose 182 High 74-99 mg/dL Performed By: #### 2341-6 ## ## STEFANO TROY ([id number]) [facility] ([facility]) [address] [place] [id number] COMPLETE BLOOD COUNT PANEL Collected: 08/10/2024 3:44 PM Status: F Source: [facility] TYPE CODE TESTS RESULT OUT OF RANGE REFERENCE UNITS LAB 6690-2(LOINC) Leukocytes 13.6 High 4.4-11.3 x10*3/ uL LAB 54695-7(LOINC) Erythrocytes.nuc l eated/100 leukocytes 0.0 0.0-0.0 /100 WBCs LAB 789-8(LOINC) Erythrocytes 2.93 Low 4.00-5.20 x10* 6/uL LAB 718-7(LOINC) Hemoglobin 9.0 Low 12.0-16.0 g/dL LAB 4544-3(LOINC) Hematocrit 27.5 Low 36.0-46.0 % LAB 787-2(LOINC) Erythrocyte mean corpuscular volume 94 80-100 fL LAB 785-6(LOINC) Erythrocyte mean corpuscular hemoglobin 30.7 26.0-34.0 pg LAB 786-4(LOINC) Erythrocyte mean corpuscular hemoglobin concentration 32.7 32.0-36.0 g/dL LAB 788-0(LOINC) Erythrocyte distribution width 13.1 11.5-14.5 % LAB 777-3(LOINC) Platelets 286 150-450 x10*3/uL Performed By: #### 89907-6 # ### STEFANO TROY ([id number]) [facility] ([facility]) [address] [place] [id number] GAS AND CO AND ELECTROLYTES PANEL Collected: 08/10/2024 2:55 PM Status: F Source: [facility] TYPE CODE TESTS RESULT OUT OF RANGE REFERENCE UNITS LAB 2744-1(LOINC) pH 7.32 Low 7.38-7.42 pH LAB 2019-8([facility]) Carbon dioxide 39 38-42 mm Hg LAB 2703-7([facility]) Oxygen 154 High 85-95 mm Hg LAB 2708-6([facility]) Oxygen saturation 100 94-100 % LAB 2714-4([facility]) Oxyhemoglobin/ Hemoglobin.tot al 97.5 94.0-98.0 % LAB 52813-9([facility]) Hematocrit 27.0 Low 36.0-46.0 % LAB 07675-6([facility]) Sodium 137 136-145 mmol/L LAB 57938-8([facility]) Potassium 4.0 3.5-5.3 mmol/L LAB 12315-8([facility]) Chloride 110 High 98-107 mmol/L LAB 47612-7([facility]) Calcium.ionize d 1.10 1.10-1.33 mmol/L LAB 02459-2([facility]) Glucose 234 High 74-99 mg/dL LAB 2518-9([facility]) Lactate 1.9 0.4-2.0 mmol/L LAB 1925-7([facility]) Base excess -5.5 Low -2.0-3.0 mmol/ L LAB 1960-4([facility]) Bicarbonate 20.1 Low 22.0-26.0 mmol /L LAB 99897-3([facility]) Hemoglobin 9.1 Low 12.0-16.0 g/dL LAB 58080-9([facility]) Anion gap 4 11 10-25 mmo/L LAB 8310-5([facility]) Body temperature 37.0 degrees Celsius LAB 3150-0([facility]) Oxygen/Gas.tot al 40 % LAB VRATE VENTILATOR RATE 14 bpm LAB TLVOL TIDAL VOLUME 400 mL LAB PEEP PEEP CMH2O 5.0 cm H2O Performed By: #### 80381-8 # ### STEFANO TROY ([id number]) [facility] ([facility]) [address] [place] [id number] FIBRINOGEN Collected: 4 2:54 PM Status: F Source: [facility] TYPE CODE TESTS RESULT OUT OF RANGE REFERENCE UNITS LAB 3255-7([facility]) Fibrinogen 185 Low 200-400 mg/dL Performed By: #### 3255-7 ## ## STEFANO TROY ([id number]) [facility] ([facility]) [address] [place] [address] PT AND APTT PANEL Collected: 2:54 PM Status: F Source: [facility] Order Comment: The APTT is n o longer used for monitoring Unfractionated Heparin Therapy. For monitoring Heparin Therapy, use the Heparin Assay. TYPE CODE TESTS RESULT OUT OF RANGE REFERENCE UNITS LAB 5902-2(LOINC) Coagulation tissue factor induced 14.5 High 9.8-12.8 seconds LAB 6301-6(LOINC) Coagulation tissue factor induced.INR 1.3 High 0.9-1.1 NA LAB 31365-8(LOINC) Coagulation surface induced 27 27-38 seconds Performed By: #### 82693-8 # ### STEFANO TROY ([id number]) [facility] ([facility]) [address] [place] [address] COMPLETE BLOOD COUNT PANEL Collected: 08/10/2024 1:42 PM Status: F Source: [facility] Order Comment: On admit to I [facility] TYPE CODE TESTS RESULT OUT OF RANGE REFERENCE UNITS LAB 6690-2(LOINC) Leukocytes 15.8 High 4.4-11.3 x10*3/ uL LAB 20601-5(LOINC) Erythrocytes.nuc l eated/100 leukocytes 0.0 0.0-0.0 /100 WBCs LAB 789-8(LOINC) Erythrocytes 3.06 Low 4.00-5.20 x10* 6/uL LAB 718-7(LOINC) Hemoglobin 9.1 Low 12.0-16.0 g/dL LAB 4544-3(LOINC) Hematocrit 27.5 Low 36.0-46.0 % LAB 787-2(LOINC) Erythrocyte mean corpuscular volume 90 80-100 fL LAB 785-6(LOINC) Erythrocyte mean corpuscular hemoglobin 29.7 26.0-34.0 pg LAB 786-4(LOINC) Erythrocyte mean corpuscular hemoglobin concentration 33.1 32.0-36.0 g/dL LAB 788-0(LOINC) Erythrocyte distribution width 13.0 11.5-14.5 % LAB 777-3(LOINC) Platelets 273 150-450 x10*3/uL Performed By: #### 06014-2 # ### STEFANO TROY ([id number]) [facility] ([facility]) [address] [place] [address] MAGNESIUM Collected: 1:42 PM Status: F Source: [facility] Order Comment: On admit to I CU TYPE CODE TESTS RESULT OUT OF RANGE REFERENCE UNITS LAB 16109-8(LOINC) Magnesium 2.39 1.60-2.40 mg/dL Performed By: #### 52656-4 # ### STEFANO TROY ([id number]) [facility] ([facility]) [address] [place] [address] RENAL FUNCTION 2000 PANEL Collected: 1:42 PM Status: F Source: [facility] Order Comment: On admit to I CU TYPE CODE TESTS RESULT OUT OF RANGE REFERENCE UNITS LAB 2345-7(LOINC) Glucose 180 High 74-99 mg/dL LAB 2951-2(LOINC) Sodium 141 136-145 mmol/L LAB 2823-3(LOINC) Potassium 3.6 3.5-5.3 mmol/L LAB 2075-0(LOINC) Chloride 112 High 98-107 mmol/L LAB 2027-9(LOINC) Carbon dioxide 23 21-32 mmol/L LAB 10420-1(LOINC) Anion gap 10 10-20 mmol/L LAB 3094-0(LOINC) Urea nitrogen 21 6-23 mg/d L LAB 2160-0(LOINC) Creatinine 0.73 0.50-1.05 mg/dL LAB 55009-0(LOINC) Glomerular filtration rate/1.73 sq M.predicted 86 >60 mL/min/1 .73m*2 Result Comment: Calculations of estimated GFR are performed using the 2020 CKD- EPI Study Refit equation without the race variable for the IDMS-Traceable creatinine methods. https://jasn.asnjournals.org/content///ASN.8932653601 LAB 63118-3(LOINC) Calcium 7.3 Low 8.6-10.3 mg/dL LAB 2777-1(LOINC) Phosphate 3.0 2.5-4.9 mg/dL Result Comment: The performa nce characteristics of phosphorus testing in heparinized plasma have been validated by the individual laboratory site where testing is performed. Testing on heparinized plasma is not approved by the FDA; however, such approval is not necessary. LAB 53242-7(LOINC) Albumin 3.4 3.4-5.0 g/dL Performed By: #### 91017-6 # ### STEFANO SYDNI ([id number]) [facility] ([facility] [place]) [address] [place] [address] GAS AND CO AND ELECTROLYTES PANEL Collected: 08/10/2024 1:41 PM Status: F Source: [facility] TYPE CODE TESTS RESULT OUT OF RANGE REFERENCE UNITS LAB 2744-1(LOINC) pH 7.31 Low 7.38-7.42 pH LAB 2019-8(LOINC) Carbon dioxide 43 High 38-42 mm Hg LAB 2703-7(LOINC) Oxygen 149 High 85-95 mm Hg LAB 2708-6(LOINC) Oxygen saturation 99 94-100 % LAB 2714-4(LOINC) Oxyhemoglobin/ Hemoglobin.tot al 97.2 94.0-98.0 % LAB 13271-0(LOINC) Hematocrit 29.0 Low 36.0-46.0 % LAB 33903-3(LOINC) Sodium 140 136-145 mmol/L LAB 13946-0(LOINC) Potassium 3.7 3.5-5.3 mmol/L LAB 39520-9(LOINC) Chloride 110 High 98-107 mmol/L LAB 04991-7(LOINC) Calcium.ionize d 1.04 Low 1.10-1.33 mmol/L LAB 27313-0(LOINC) Glucose 202 High 74-99 mg/dL LAB 2518-9(LOINC) Lactate 1.2 0.4-2.0 mmol/L LAB 1925-7(LOINC) Base excess -4.4 Low -2.0-3.0 mmol/ L LAB 1960-4(LOINC) Bicarbonate 21.7 Low 22.0-26.0 mmol /L LAB 89255-1(LOINC) Hemoglobin 9.6 Low 12.0-16.0 g/dL LAB 93259-1(LOINC) Anion gap 4 12 10-25 mmo/L LAB 8310-5([facility]) Body temperature 37.0 degrees Celsius LAB 3150-0([facility]) Oxygen/Gas.tot al 50 % LAB VRATE VENTILATOR RATE 14 bpm LAB TLVOL TIDAL VOLUME 450 mL LAB PEEP PEEP CMH2O 5.0 cm H2O LAB 30550-3([facility]) Specimen drawn from Arterial Line Performed By: #### 06528-5 # ### STEFANO TROY ([id number]) [facility] [facility] [address] [place] [address] ECG 12-LEAD Observed: 08/10/2024 12:57 PM Status: F Source: [facility] Ventricular Rate 71 Atrial Rate 71 P-R Interval 204 QRS Duration 148 Q-T Interval 508 QTC Calculation(Bazett) 552 P Aurora 75 R Aurora -23 T Aurora 72 QRS Count 12 Q Onset 212 P Onset 110 P Offset 167 T Offset 466 QTC Fredericia 537 Diagnosis Normal sinus rhythm Left bundle branch block Abnormal ECG Confirmed by Garrick Díaz ([id number]) on 08/10/2024 4:54:53 PM GLUCOSE Collected: 12:52 PM Status: F Source: [facility] TYPE CODE TESTS RESULT OUT OF RANGE REFERENCE UNITS LAB 2341-6([facility]) Glucose 167 High 74-99 mg/dL Performed By: #### 2341-6 ## ## STEFANO TROY ([id number]) [facility] ([facility]) [address] [place] [address] XR CHEST 1 VIEW Observed: 08/10/2024 12:40 PM Status: F Source: [facility] Order Comment: On arrival to ICU Interpreted By: Rudi Lambert, STUDY: XR CHEST 1 VIEW; 08/10/2024 1:51 pm INDICATION: Signs/Symptoms:Post op cardiac surgery. COMPARISON: 07/29/2024 ACCESSION NUMBER(S): [id number] ORDERING CLINICIAN: TAMI NELSON FINDINGS: Multiple new support devices in place including ET tube with tip approximately 5.9 cm above the dominick, NG tube extending into the upper abdomen, right jugular central line with tip overlying the SVC, and bilateral chest tubes. Additional presumed overlying monitoring/support devices. New median sternotomy wires and atrial closure device near the left heart border. Possible small left apical pneumothorax. Retrocardiac and minimal right infrahilar opacities. The cardiac silhouette is normal in size. IMPRESSION: Status post sternotomy with multiple support devices in place as above. Questionable small left apical pneumothorax. Iywj-mewegyg-pbmd-right basilar infiltrates or atelectasis. MACRO: None. Signed by: Fernanda Lambert 08/10/2024 2:44 PM Dictation workstation: [id number] GAS AND CO AND ELECTROLYTES PANEL Collected: 08/10/2024 12:11 PM Status: F Source: [facility] TYPE CODE TESTS RESULT OUT OF RANGE REFERENCE UNITS LAB 2744-1(LOINC) pH 7.32 Low 7.38-7.42 pH LAB 2019-8(LOINC) Carbon dioxide 43 High 38-42 mm Hg LAB 2703-7(LOINC) Oxygen 298 High 85-95 mm Hg LAB 2708-6(LOINC) Oxygen saturation 100 94-100 % LAB 2714-4(LOINC) Oxyhemoglobin/ Hemoglobin.tot al 97.4 94.0-98.0 % LAB 16189-6(LOINC) Hematocrit 30.0 Low 36.0-46.0 % LAB 25224-4(LOINC) Sodium 139 136-145 mmol/L LAB 60766-3(LOINC) Potassium 3.7 3.5-5.3 mmol/L LAB 28661-3(LOINC) Chloride 108 High 98-107 mmol/L LAB 69678-2(LOINC) Calcium.ionize d 1.17 1.10-1.33 mmol/L LAB 19211-2(LOINC) Glucose 162 High 74-99 mg/dL LAB 2518-9(LOINC) Lactate 2.2 High 0.4-2.0 mmol/L LAB 1925-7(LOINC) Base excess -3.8 Low -2.0-3.0 mmol/ L LAB 1960-4(LOINC) Bicarbonate 22.2 22.0-26.0 mmol /L LAB 13742-4(LOINC) Hemoglobin 10.1 Low 12.0-16.0 g/dL LAB 23314-3(LOINC) Anion gap 4 13 10-25 mmo/L LAB 8310-5(LOINC) Body temperature 37.0 degrees Celsius Result Comment: NOTE: Patien t Results are Not Corrected for Temperature LAB 3150-0(LOINC) Oxygen/Gas.tot al 100 % Performed By: #### 35102-5 # ### STEFANO TROY ([id number]) [facility] ([facility]) [address] [id number] CARBOXYHEMOGLOBIN/HEMOGLOBIN.TOTAL Rosmery ected: 08/10/2024 12:11 PM Status: F Source: [facility] TYPE CODE TESTS RESULT OUT OF RANGE REFERE NCE UNITS LAB 62011-3([facility]) Hemoglobin 10.1 Low 12.0-1 6.0 g/dL LAB 2714-4(LOIN C) Oxyhemoglob in/Hemoglob in.total 97.4 94.0-9 8.0 % LAB 2030-5(LOIN C) Carboxyhemo globin/Hemo globin.tota l 1.2 % Result Comment: Ref Values Non-Smokers 0.5-1.5% Smokers 0.5-10.0% LAB 2615-3(LOIN C) Methemoglob in/Hemoglob in.total 0.9 0.0-1. 5 % LAB 10661-5([facility]) Deoxyhemogl obin/Hemogl obin.total 0.5 0.0-5. 0 % Performed By: #### 2030-5 ## ## STEFANO TROY ([id number]) [facility] ([facility]) [address] [id number] COMPLETE BLOOD COUNT PANEL Collected: 08/10/2024 12:0 0 PM Status: F Source: [facility] TYPE CODE TESTS RESULT OUT OF RANGE REFERENCE UNITS LAB 6690-2(LOINC) Leukocytes 18.3 High 4.4-11.3 x10*3/ uL LAB 70882-9(LOINC) Erythrocytes.nuc l eated/100 leukocytes 0.0 0.0-0.0 /100 WBCs LAB 789-8(LOINC) Erythrocytes 3.19 Low 4.00-5.20 x10* 6/uL LAB 718-7(LOINC) Hemoglobin 9.8 Low 12.0-16.0 g/dL LAB 4544-3(LOINC) Hematocrit 29.8 Low 36.0-46.0 % LAB 787-2(LOINC) Erythrocyte mean corpuscular volume 93 80-100 fL LAB 785-6(LOINC) Erythrocyte mean corpuscular hemoglobin 30.7 26.0-34.0 pg LAB 786-4(LOINC) Erythrocyte mean corpuscular hemoglobin concentration 32.9 32.0-36.0 g/dL LAB 788-0(LOINC) Erythrocyte distribution width 12.9 11.5-14.5 % LAB 777-3(LOINC) Platelets 229 150-450 x10*3/uL Performed By: #### 44818-9 # ### STEFANO TROY ([id number]) [facility] ([facility]) [address] [place] [address] FIBRINOGEN Collected: 12:00 PM Status: F Source: [facility] TYPE CODE TESTS RESULT OUT OF RANGE REFERENCE UNITS LAB 3255-7(LOINC) Fibrinogen 151 Low 200-400 mg/dL Performed By: #### 3255-7 ## ## STEFANO TROY ([id number]) [facility] ([facility]) [address] [place] [address] COAGULATION TISSUE FACTOR INDUCED Collected: 08/10/2024 12:00 PM Status: F Source: [facility] TYPE CODE TESTS RESULT OUT OF RANGE REFERENCE UNITS LAB 5902-2(LOINC) Coagulation tissue factor induced 19.0 High 9.8-12.8 seconds LAB 6301-6(LOINC) Coagulation tissue factor induced.INR 1.7 High 0.9-1.1 NA Performed By: #### 5902-2 ## ## STEFANO TROY ([id number]) [facility] ([facility]) [address] [place] [address] COAGULATION SURFACE INDUCED Collected: 08/10/2024 12:00 PM Status: F Source: [facility] Order Comment: The APTT is n o longer used for monitoring Unfractionated Heparin Therapy. For monitoring Heparin Therapy, use the Heparin Assay. TYPE CODE TESTS RESULT OUT OF RANGE REFERENCE UNITS LAB 09856-8(LOINC) Coagulation surface induced 34 27-38 seconds Performed By: #### 92499-9 # ### STEFANO TROY ([id number]) [facility] ([facility]) [address] [place] [address] GAS AND CO AND ELECTROLYTES PANEL Collected: 08/10/2024 11:22 AM Status: F Source: [facility] TYPE CODE TESTS RESULT OUT OF RANGE REFERENCE UNITS LAB 2744-1([facility]) pH 7.33 Low 7.38-7.42 pH LAB 2019-8(INC) Carbon dioxide 42 38-42 mm Hg LAB 2703-7([facility]) Oxygen 266 High 85-95 mm Hg LAB 2708-6(INC) Oxygen saturation 100 94-100 % LAB 2714-4([facility]) Oxyhemoglobin/ Hemoglobin.tot al 98.2 High 94.0-98.0 % LAB 41484-3([facility]) Hematocrit 25.0 Low 36.0-46.0 % LAB 18757-6(INC) Sodium 140 136-145 mmol/L LAB 17662-6(INC) Potassium 4.0 3.5-5.3 mmol/L LAB 09485-7(INC) Chloride 108 High 98-107 mmol/L LAB 33804-9(INC) Calcium.ionize d 1.19 1.10-1.33 mmol/L LAB 23911-3(LOINC) Glucose 144 High 74-99 mg/dL LAB 2518-9(LOINC) Lactate 2.9 High 0.4-2.0 mmol/L LAB 1925-7(LOINC) Base excess -3.6 Low -2.0-3.0 mmol/ L LAB 1960-4(LOINC) Bicarbonate 22.1 22.0-26.0 mmol /L LAB 82391-1(INC) Hemoglobin 8.3 Low 12.0-16.0 g/dL LAB 97770-7(LOINC) Anion gap 4 14 10-25 mmo/L LAB 8310-5(LOINC) Body temperature 37.0 degrees Celsius Result Comment: NOTE: Uriel t Results are Not Corrected for Temperature LAB 3150-0([facility]) Oxygen/Gas.tot al 100 % Performed By: #### 43014-8 # ### STEFANO TROY ([id number]) [facility] ([facility]) [address] [place] [address] CARBOXYHEMOGLOBIN/HEMOGLOBIN.TOTAL Rosmery ected: 08/10/2024 11:22 AM Status: F Source: [facility] TYPE CODE TESTS RESULT OUT OF RANGE REFERE NCE UNITS LAB 07711-0([facility]) Hemoglobin 8.3 Low 12.0-1 6.0 g/dL LAB 2714-4(LOIN C) Oxyhemoglob in/Hemoglob in.total 98.2 High 94.0-9 8.0 % LAB 2030-5(LOIN C) Carboxyhemo globin/Hemo globin.tota l 1.1 % Result Comment: Ref Values Non-Smokers 0.5-1.5% Smokers 0.5-10.0% LAB 2615-3(LOIN C) Methemoglob in/Hemoglob in.total 0.6 0.0-1. 5 % LAB 03728-4([facility]) Deoxyhemogl obin/Hemogl obin.total 0.2 0.0-5. 0 % Performed By: #### 2030-5 ## ## STEFANO TROY ([id number]) [facility] ([facility]) [address] [place] [address] ACTIVATED CLOTTING TIME Collected: 10/2023 10:48 AM Status: F Source: [facility] TYPE CODE TESTS RESULT OUT OF RANGE REFERENCE UNITS LAB 3184-9(LOINC) Activated clotting time 115 82-174 sec Result Comment: Target ACT r damion will vary based on the patient population, clinical status, and surgical intervention occurring. Performed By: #### 3184-9 ## ## STEFANO TROY ([id number]) [facility] ([facility]) [address] [place], [place] [id number] GAS AND CO AND ELECTROLYTES PANEL Collected: 08/10/2024 10:42 AM Status: F Source: [facility] TYPE CODE TESTS RESULT OUT OF RANGE REFERENCE UNITS LAB 2744-1(LOINC) pH 7.30 Low 7.38-7.42 pH LAB 2019-8(LOINC) Carbon dioxide 45 High 38-42 mm Hg LAB 2703-7(LOINC) Oxygen 281 High 85-95 mm Hg LAB 2708-6(LOINC) Oxygen saturation 100 94-100 % LAB 2714-4(LOINC) Oxyhemoglobin/ Hemoglobin.tot al 97.8 94.0-98.0 % LAB 46132-9(LOINC) Hematocrit 27.0 Low 36.0-46.0 % LAB 08375-0(INC) Sodium 137 136-145 mmol/L LAB 88854-3(INC) Potassium 4.7 3.5-5.3 mmol/L LAB 19704-7([facility]) Chloride 109 High 98-107 mmol/L LAB 23634-8([facility]) Calcium.ionize d 1.15 1.10-1.33 mmol/L LAB 52773-5([facility]) Glucose 188 High 74-99 mg/dL LAB 2518-9(INC) Lactate 2.7 High 0.4-2.0 mmol/L LAB 1925-7([facility]) Base excess -4.2 Low -2.0-3.0 mmol/ L LAB 1960-4([facility]) Bicarbonate 22.1 22.0-26.0 mmol /L LAB 56063-7([facility]) Hemoglobin 9.1 Low 12.0-16.0 g/dL LAB 19183-8([facility]) Anion gap 4 11 10-25 mmo/L LAB 8310-5([facility]) Body temperature 37.0 degrees Celsius Result Comment: NOTE: Patien t Results are Not Corrected for Temperature LAB 3150-0([facility]) Oxygen/Gas.tot al 100 % Performed By: #### 38388-5 # ### STEFANO TROY ([id number]) [facility] ([facility]) [address] [place] [address] CARBOXYHEMOGLOBIN/HEMOGLOBIN.TOTAL Rosmery ected: 08/10/2024 10:42 AM Status: F Source: [facility] TYPE CODE TESTS RESULT OUT OF RANGE REFERE NCE UNITS LAB 30517-3([facility]) Hemoglobin 9.1 Low 12.0-1 6.0 g/dL LAB 2714-4(LOIN C) Oxyhemoglob in/Hemoglob in.total 97.8 94.0-9 8.0 % LAB 2030-5(LOIN C) Carboxyhemo globin/Hemo globin.tota l 1.6 % Result Comment: Ref Values Non-Smokers 0.5-1.5% Smokers 0.5-10.0% LAB 2615-3(LOIN C) Methemoglob in/Hemoglob in.total 0.6 0.0-1. 5 % LAB 54067-1([facility]) Deoxyhemogl obin/Hemogl obin.total 0.0 0.0-5. 0 % Performed By: #### 2030-5 ## ## STEFANO TROY ([id number]) [facility] ([facility]) [address] [place] [address] ACTIVATED CLOTTING TIME Collected: 10/2023 10:40 AM Status: F Source: [facility] TYPE CODE TESTS RESULT OUT OF RANGE REFERENCE UNITS LAB 3184-9([facility]) Activated clotting time 129 82-174 sec Result Comment: Target ACT r damion will vary based on the patient population, clinical status, and surgical intervention occurring. Performed By: #### 3184-9 ## ## STEFANO TROY ([id number]) [facility] ([facility]) [address] [place] [address] GAS AND CO AND ELECTROLYTES PANEL Collected: 08/10/2024 10:06 AM Status: F Source: [facility] TYPE CODE TESTS RESULT OUT OF RANGE REFERENCE UNITS LAB 2744-1(LOINC) pH 7.42 7.38-7.42 pH LAB 2019-8(LOINC) Carbon dioxide 35 Low 38-42 mm Hg LAB 2703-7(LOINC) Oxygen 350 High 85-95 mm Hg LAB 2708-6(LOINC) Oxygen saturation 100 94-100 % LAB 2714-4(LOINC) Oxyhemoglobin/ Hemoglobin.tot al 97.4 94.0-98.0 % LAB 28621-4(LOINC) Hematocrit 26.0 Low 36.0-46.0 % LAB 19916-4(LOINC) Sodium 135 Low 136-145 mmol/L LAB 27960-3(LOINC) Potassium 5.3 3.5-5.3 mmol/L LAB 91506-2(LOINC) Chloride 109 High 98-107 mmol/L LAB 09544-1(LOINC) Calcium.ionize d 1.14 1.10-1.33 mmol/L LAB 08037-4(LOINC) Glucose 182 High 74-99 mg/dL LAB 2518-9(LOINC) Lactate 1.2 0.4-2.0 mmol/L LAB 1925-7(LOINC) Base excess -1.5 -2.0-3.0 mmol/ L LAB 1960-4(LOINC) Bicarbonate 22.7 22.0-26.0 mmol /L LAB 99036-8(LOINC) Hemoglobin 8.8 Low 12.0-16.0 g/dL LAB 99635-8(LOINC) Anion gap 4 9 Low 10-25 mmo/L LAB 8310-5(LOINC) Body temperature 37.0 degrees Celsius Result Comment: NOTE: Patien t Results are Not Corrected for Temperature LAB 3150-0(LOINC) Oxygen/Gas.tot al 80 % Performed By: #### 94562-5 # ### STEFANO TROY ([id number]) [facility] ([facility]) [address] [place] [address] CARBOXYHEMOGLOBIN/HEMOGLOBIN.TOTAL Rosmery ected: 08/10/2024 10:06 AM Status: F Source: [facility] TYPE CODE TESTS RESULT OUT OF RANGE REFERE NCE UNITS LAB 76442-1([facility]) Hemoglobin 8.8 Low 12.0-1 6.0 g/dL LAB 2714-4(LOIN C) Oxyhemoglob in/Hemoglob in.total 97.4 94.0-9 8.0 % LAB 2030-5(LOIN C) Carboxyhemo globin/Hemo globin.tota l 1.6 % Result Comment: Ref Values Non-Smokers 0.5-1.5% Smokers 0.5-10.0% LAB 2615-3(LOIN C) Methemoglob in/Hemoglob in.total 1.0 0.0-1. 5 % LAB 10557-1([facility]) Deoxyhemogl obin/Hemogl obin.total 0.0 0.0-5. 0 % Performed By: #### 2030-5 ## ## STEFANO TROY ([id number]) [facility] ([facility]) [address] [place] [address] ACTIVATED CLOTTING TIME Collected: 10/2023 10:04 AM Status: F Source: [facility] TYPE CODE TESTS RESULT OUT OF RANGE REFERENCE UNITS LAB 3184-9(LOINC) Activated clotting time 625 High 82-174 sec Result Comment: Target ACT r damion will vary based on the patient population, clinical status, and surgical intervention occurring. Performed By: #### 3184-9 ## ## STEFANO TROY ([id number]) [facility] ([facility]) [address] [place] [address] GAS AND CO AND ELECTROLYTES PANEL Collected: 08/10/2024 9:40 AM Status: F Source: [facility] TYPE CODE TESTS RESULT OUT OF RANGE REFERENCE UNITS LAB 2744-1([facility]) pH 7.42 7.38-7.42 pH LAB 2019-8([facility]) Carbon dioxide 35 Low 38-42 mm Hg LAB 2703-7(INC) Oxygen 356 High 85-95 mm Hg LAB 2708-6([facility]) Oxygen saturation 100 94-100 % LAB 2714-4(INC) Oxyhemoglobin/ Hemoglobin.tot al 97.6 94.0-98.0 % LAB 74292-3(LOINC) Hematocrit 26.0 Low 36.0-46.0 % LAB 54436-3(LOINC) Sodium 136 136-145 mmol/L LAB 45399-8(LOINC) Potassium 5.0 3.5-5.3 mmol/L LAB 30198-8(LOINC) Chloride 108 High 98-107 mmol/L LAB 01915-8(INC) Calcium.ionize d 1.12 1.10-1.33 mmol/L LAB 45880-8(LOINC) Glucose 175 High 74-99 mg/dL LAB 2518-9(LOINC) Lactate 1.2 0.4-2.0 mmol/L LAB 1925-7(LOINC) Base excess -1.5 -2.0-3.0 mmol/ L LAB 1960-4(LOINC) Bicarbonate 22.7 22.0-26.0 mmol /L LAB 97121-6(LOINC) Hemoglobin 8.8 Low 12.0-16.0 g/dL LAB 18700-6(LOINC) Anion gap 4 10 10-25 mmo/L LAB 8310-5(LOINC) Body temperature 37.0 degrees Celsius Result Comment: NOTE: Uriel t Results are Not Corrected for Temperature Performed By: #### 30666-3 # ### STEFANO TROY ([id number]) [facility] ([facility]) [address] [place] [address] CARBOXYHEMOGLOBIN/HEMOGLOBIN.TOTAL Rosmery ected: 08/10/2024 9:40 AM Status: F Source: [facility] TYPE CODE TESTS RESULT OUT OF RANGE REFERE NCE UNITS LAB 13278-2([facility]) Hemoglobin 8.8 Low 12.0-1 6.0 g/dL LAB 2714-4(LOIN C) Oxyhemoglob in/Hemoglob in.total 97.6 94.0-9 8.0 % LAB 2030-5(LOIN C) Carboxyhemo globin/Hemo globin.tota l 1.4 % Result Comment: Ref Values Non-Smokers 0.5-1.5% Smokers 0.5-10.0% LAB 2615-3(LOIN C) Methemoglob in/Hemoglob in.total 0.8 0.0-1. 5 % LAB 75807-6([facility]) Deoxyhemogl obin/Hemogl obin.total 0.2 0.0-5. 0 % Performed By: #### 2030-5 ## ## STEFANO TROY ([id number]) [facility] ([facility]) [address] [place] [address] ACTIVATED CLOTTING TIME Collected: 08/10/2024 9:37 AM Status: F Source: [facility] TYPE CODE TESTS RESULT OUT OF RANGE REFERENCE UNITS LAB 3184-9(LOINC) Activated clotting time 612 High 82-174 sec Result Comment: Target ACT r damion will vary based on the patient population, clinical status, and surgical intervention occurring. Performed By: #### 3184-9 ## ## STEFANO TROY ([id number]) [facility] ([facility]) [address] [place] [address] GAS PANEL Collected: 08/10/2024 9:31 AM Status: F Source: [facility] TYPE CODE TESTS RESULT OUT OF RANGE REFERENCE UNITS LAB 2746-6(LOINC) pH 7.40 7.33-7.43 pH LAB 2020-4(LOINC) Carbon dioxide 39 Low 41-51 mm Hg LAB 2705-2(LOINC) Oxygen 53 High 35-45 mm Hg LAB 2711-0([facility]) Oxygen saturation 88 High 45-75 % LAB 2716-9([facility]) Oxyhemoglobin/H emoglobin.total 86.3 High 45.0-75.0 % LAB 80660-7([facility]) Hematocrit 26.0 Low 36.0-46.0 % LAB 85885-2([facility]) Sodium 136 136-145 mmol/L LAB 69190-3(INC) Potassium 5.3 3.5-5.3 mmol/L LAB 47289-1([facility]) Chloride 106 98-107 mmol/L LAB 48978-5([facility]) Calcium.ionized 1.13 1.10-1.33 mmol/L LAB 07337-7([facility]) Glucose 176 High 74-99 mg/dL LAB 2519-7([facility]) Lactate 1.1 0.4-2.0 mmol/L LAB 1927-3([facility]) Base excess -0.5 -2.0-3.0 mmol/ L LAB 54678-5([facility]) Bicarbonate 24.2 22.0-26.0 mmo l/L LAB 15906-9([facility]) Hemoglobin 8.7 Low 12.0-16.0 g/dL LAB 86820-0([facility]) Anion gap 4 11.0 10.0-25.0 mmo l/L LAB 8310-5([facility]) Body temperature 37.0 degrees Celsius Result Comment: NOTE: Patien t Results are Not Corrected for Temperature LAB 3150-0([facility]) Oxygen/Gas.tota l 75 % Performed By: #### 45215-3 # ### STEFANO TROY ([id number]) [facility] ([facility]) [address] [place] [address] CARBOXYHEMOGLOBIN/HEMOGLOBIN.TOTAL Rosmery ected: 08/10/2024 9:31 AM Status: F Source: [facility] TYPE CODE TESTS RESULT OUT OF RANGE REFERENC E UNITS LAB 2031-09(LOIN C) Carboxyh emoglobi n/Hemogl obin.tot al 1.5 % Result Comment: Ref Values Non-Smokers 0.5-1.5% Smokers 0.5-10.0% LAB 2617-9(LOIN C) Methemog lobin/He moglobin .total 0.7 0.0-1.5 % Performed By: #### 2032-1 ## ## STEFANO TROY ([id number]) [facility] ([facility]) [address] [place] [address] GAS AND CO AND ELECTROLYTES PANEL Collected: 08/10/2024 9:27 AM Status: F Source: [facility] TYPE CODE TESTS RESULT OUT OF RANGE REFERENCE UNITS LAB 2744-1(LOINC) pH 7.45 High 7.38-7.42 pH LAB 2019-8(LOINC) Carbon dioxide 34 Low 38-42 mm Hg LAB 2703-7([facility]) Oxygen 396 High 85-95 mm Hg LAB 2708-6(LOINC) Oxygen saturation 100 94-100 % LAB 2714-4(INC) Oxyhemoglobin/ Hemoglobin.tot al 98.0 94.0-98.0 % LAB 04237-9(LOINC) Hematocrit 26.0 Low 36.0-46.0 % LAB 38918-8(LOINC) Sodium 135 Low 136-145 mmol/L LAB 36688-1(LOINC) Potassium 6.0 High 3.5-5.3 mmol/L LAB 41597-4(LOINC) Chloride 108 High 98-107 mmol/L LAB 81239-0(LOINC) Calcium.ionize d 1.09 Low 1.10-1.33 mmol/L LAB 10083-4(LOINC) Glucose 174 High 74-99 mg/dL LAB 2518-9(LOINC) Lactate 1.2 0.4-2.0 mmol/L LAB 1925-7(LOINC) Base excess -0.2 -2.0-3.0 mmol/ L LAB 1960-4(LOINC) Bicarbonate 23.6 22.0-26.0 mmol /L LAB 07426-1(LOINC) Hemoglobin 8.6 Low 12.0-16.0 g/dL LAB 37685-6(LOINC) Anion gap 4 9 Low 10-25 mmo/L LAB 8310-5(LOINC) Body temperature 37.0 degrees Celsius Result Comment: NOTE: Patien t Results are Not Corrected for Temperature LAB 3150-0(LOINC) Oxygen/Gas.tot al 75 % Performed By: #### 85628-1 # ### STEFANO TROY ([id number]) [facility] ([facility]) [address] [place] [address] CARBOXYHEMOGLOBIN/HEMOGLOBIN.TOTAL Rosmery ected: 08/10/2024 9:27 AM Status: F Source: [facility] TYPE CODE TESTS RESULT OUT OF RANGE REFERE NCE UNITS LAB 39316-2([facility]) Hemoglobin 8.6 Low 12.0-1 6.0 g/dL LAB 2714-4(LOIN C) Oxyhemoglob in/Hemoglob in.total 98.0 94.0-9 8.0 % LAB 2030-5(LOIN C) Carboxyhemo globin/Hemo globin.tota l 1.5 % Result Comment: Ref Values Non-Smokers 0.5-1.5% Smokers 0.5-10.0% LAB 2615-3(LOIN C) Methemoglob in/Hemoglob in.total 0.4 0.0-1. 5 % LAB 93667-4(KM [facility]) Deoxyhemogl obin/Hemogl obin.total 0.0 0.0-5. 0 % Performed By: #### 2030-5 ## ## STEFANO TROY ([id number]) [facility] ([facility]) [address] [place], [place] [id number] ACTIVATED CLOTTING TIME Collected: 08/10/2024 9:25 AM Status: F Source: [facility] TYPE CODE TESTS RESULT OUT OF RANGE REFERENCE UNITS LAB 3184-9(LOINC) Activated clotting time 693 High 82-174 sec Result Comment: Target ACT r damion will vary based on the patient population, clinical status, and surgical intervention occurring. Performed By: #### 3184-9 ## ## STEFANO TROY ([id number]) [facility] ([facility]) [address] [place] [address] ANESTHESIA INTRAOPERATIVE ANASTASIA Observed: 08/10/2024 9:10 AM Status: F Source: [facility] - Dept of Anesthesiology [facility] [address] and TRANSESOPHAGEAL ECHOCARDIOGRAM REPORT Patient Name: BOB Hancock Physician: [id number] Bonifacio Olmedo DO Study Date: 08/10/2024 Ordering Provider: [id number] BONIFACIO OLMEDO MRN/PID: [id number] Fellow: Nurse: Date of /Age: 3 1950 / 73 years [employer] Specialist: Gender assigned at F Additional Staff: : BSA / BMI: m2 / kg/m2 Study Type: ANESTHESIA INTRAOPERATIVE ANASTASIA Diagnosis/ICD: Aneurysm of the ascending aorta, without rupture-I71.21 CPT Code: ANASTASIA Complete-93125; Doppler Limited-37669; Color Doppler-57864 PHYSICIAN INTERPRETATION: Left Ventricle: The left ventricular systolic function is normal, with a visually estimated ejection fraction of 55-60%. Left venticular wall motion is abnormal. The left ventricular cavity size is mildly dilated. The left ventricular septal wall thickness is normal. Spectral Doppler shows a Grade I (impaired relaxation pattern) of left ventricular diastolic filling with normal left atrial filling pressure. Left Atrium: The left atrium is moderately dilated. There is no evidence of a patent foramen ovale. The left atrial appendage Doppler velocities are normal and there is no thrombus visualized in the left atrial appendage. Right Ventricle: The right ventricle is normal in size. There is normal right ventricular global systolic function. Right Atrium: The right atrium is moderately to severely dilated. Aortic Valve: The aortic valve is trileaflet. There is no evidence of aortic valve stenosis. The aortic valve dimensionless index is 0.45. There is mild aortic valve regurgitation. The peak instantaneous gradient of the aortic valve is 6 mmHg. The mean gradient of the aortic valve is 3 mmHg. The estimated AoV mean PG is 4 mmHg. Mitral Valve: The mitral valve is normal in structure. There is mild to moderate mitral valve regurgitation. Tricuspid Valve: The tricuspid valve is structurally normal. There is mild to moderate tricuspid regurgitation. Pulmonic Valve: The pulmonic valve is structurally normal. There is no indication of pulmonic valve regurgitation. Pericardium: There is no pericardial effusion noted. Aorta: The aortic root is abnormal. There is no evidence of aortic dissection. The ascending Ao diameter is 4.7 cm. The descending aorta is classified as a Grade 2 [mild (focal or diffuse) intimal thickening of 2-3 mm] atherosclerosis. In comparison to the previous echocardiogram(s): Not performed on intraoperative study. CONCLUSIONS: 1. The left ventricular systolic function is normal, with a visually estimated ejection fraction of 55-60%. 2. Abnormal left venticular wall motion. 3. Spectral Doppler shows a Grade I (impaired relaxation pattern) of left ventricular diastolic filling with normal left atrial filling pressure. 4. Left ventricular cavity size is mildly dilated. 5. There is normal right ventricular global systolic function. 6. The left atrium is moderately dilated. 7. The right atrium is moderately to severely dilated. 8. Mild to moderate mitral valve regurgitation. 9. Mild to moderate tricuspid regurgitation visualized. 10. Aortic valve stenosis is not present. 11. Mild aortic valve regurgitation. POST PROCEDURE REPORT: Patient is being paced. Patient is on an epinephrine drip. LV function is unchanged from pre-pump exam. RV function is unchanged from pre-pump exam. RVSP decreased to 31 with initiation of epi. There is no aortic regurgitation. Improved coaptation of cusp tips following ascending replacement. There is mild mitral regurgitation. There is mild tricuspid regurgitation. No evidence of post aortic cannulation dissection. All transesophageal echocardiogram findings discussed with surgeon. QUANTITATIVE DATA SUMMARY: AORTA MEASUREMENTS: Normal Ranges: Asc Ao, d: 4.25 cm (2.1-3.4cm) LV SYSTOLIC FUNCTION BY 2D PLANIMETRY (MOD): Normal Ranges: EF-Visual: 58 % LV EF Reported: 58 % LV DIASTOLIC FUNCTION: Normal Ranges: PulmV Sys Camron: 33.20 cm/s PulmV Diaz Camron: 32.70 cm/s PulmV S/D Camron: 1.00 PulmV A Revs Camron: 18.80 cm/s PulmV A Revs Dur: 148.00 msec AORTIC VALVE: Normal Ranges: AoV Vmax: 1.20 m/s (<=1.7m/s) AoV Peak P.8 mmHg (<20mmHg) AoV Mean P.0 mmHg (1.7-11.5mmHg) LVOT Max Camron: 0.60 m/s (<=1.1m/s) AoV VTI: 27.90 cm (18-25cm) LVOT VTI: 12.60 cm LVOT Diameter: 1.90 cm (1.8-2.4cm) AoV Area, VTI: 1.28 cm2 (2.5-5.5cm2) AoV Area,Vmax: 1.41 cm2 (2.5-4.5cm2) AoV Dimensionless Index: 0.45 TRICUSPID VALVE/RVSP: Normal Ranges: Peak TR Velocity: 3.10 m/s RV Syst Pressure: 41 mmHg (< 30mmHg) Pulmonary Veins: PulmV A Revs Dur: 148.00 msec PulmV A Revs Camron: 18.80 cm/s PulmV Diaz Camron: 32.70 cm/s PulmV S/D Camron: 1.00 PulmV Sys Camron: 33.20 cm/s [id number] Bonifacio Olmedo Electronically signed on 08/10/2024 at 1:09:56 PM Final GAS AND CO AND ELECTROLYTES PANEL Collected: 08/10/2024 8:47 AM Status: F Source: [facility] TYPE CODE TESTS RESULT OUT OF RANGE REFERENCE UNITS LAB 2744-1(LOINC) pH 7.38 7.38-7.42 pH LAB 2019-8(LOINC) Carbon dioxide 38 38-42 mm Hg LAB 2703-7(LOINC) Oxygen 318 High 85-95 mm Hg LAB 2708-6(LOINC) Oxygen saturation 100 94-100 % LAB 2714-4(LOINC) Oxyhemoglobin/ Hemoglobin.tot al 97.6 94.0-98.0 % LAB 40831-1(LOINC) Hematocrit 33.0 Low 36.0-46.0 % LAB 17607-9(LOINC) Sodium 138 136-145 mmol/L LAB 02981-6(LOINC) Potassium 3.6 3.5-5.3 mmol/L LAB 76956-2(LOINC) Chloride 108 High 98-107 mmol/L LAB 21847-6(LOINC) Calcium.ionize d 1.21 1.10-1.33 mmol/L LAB 24612-9(LOINC) Glucose 141 High 74-99 mg/dL LAB 2518-9(LOINC) Lactate 1.2 0.4-2.0 mmol/L LAB 1925-7(LOINC) Base excess -2.3 Low -2.0-3.0 mmol/ L LAB 1960-4(LOINC) Bicarbonate 22.5 22.0-26.0 mmol /L LAB 00569-3(LOINC) Hemoglobin 10.9 Low 12.0-16.0 g/dL LAB 09013-4(LOINC) Anion gap 4 11 10-25 mmo/L LAB 8310-5(LOINC) Body temperature 37.0 degrees Celsius Result Comment: NOTE: Patien t Results are Not Corrected for Temperature LAB 3150-0(LOINC) Oxygen/Gas.tot al 100 % Performed By: #### 75225-9 # ### STEFANO TROY ([id number]) [facility] ([facility]) [address] [place] [address] CARBOXYHEMOGLOBIN/HEMOGLOBIN.TOTAL Rosmery ected: 08/10/2024 8:47 AM Status: F Source: [facility] TYPE CODE TESTS RESULT OUT OF RANGE REFERE NCE UNITS LAB 08021-3(KM NC) Hemoglobin 10.9 Low 12.0-1 6.0 g/dL LAB 2714-4(LOIN C) Oxyhemoglob in/Hemoglob in.total 97.6 94.0-9 8.0 % LAB 2030-5(LOIN C) Carboxyhemo globin/Hemo globin.tota l 1.7 % Result Comment: Ref Values Non-Smokers 0.5-1.5% Smokers 0.5-10.0% LAB 2615-3(LOIN C) Methemoglob in/Hemoglob in.total 0.7 0.0-1. 5 % LAB 61876-5(KM NC) Deoxyhemogl obin/Hemogl obin.total 0.0 0.0-5. 0 % Performed By: #### 2030-5 ## ## STEFANO TROY ([id number]) [facility] ([facility]) [address] [id number] ACTIVATED CLOTTING TIME Collected: 08/10/2024 8:44 AM Status: F Source: [facility] TYPE CODE TESTS RESULT OUT OF RANGE REFERENCE UNITS LAB 3184-9(LOINC) Activated clotting time 579 High 82-174 sec Result Comment: Target ACT r damion will vary based on the patient population, clinical status, and surgical intervention occurring. Performed By: #### 3184-9 ## ## STEFANO TROY ([id number]) [facility] ([facility]) [address] [id number] SURGICAL PATHOLOGY STUDY Observed: 08/10 8:30 AM Status: F Source: [facility] Order Comment: Pre-op diagno sis: Aneurysm of ascending aorta without rupture ([facility]) [I71.21] Pathology report.total SEE COMMENT Surgical Pathology Case: [id number] Authorizing Provider: Tania Cedillo MD Collected: 08/10/2024 0830 Ordering Location: [facility] OR Received: 08/10/2024 1303 Pathologist: Marisela Orlando MD Specimen: AORTA, AORTIC TISSUE Path report.final diagnosis SEE COMMENT A. ASCENDING AORTIC TISSUE: -- BENIGN AORTIC WALL, CLINICALLY ANEURYSM REPAIR. Laboratory comment By the signature on this report, the individual or group listed as making the Final Interpretation/Diagnosis certifies that they have reviewed this case. Path report.relevant Hx SEE COMMENT Pre-op diagnosis: Aneurysm of ascending aorta without rupture ([facility]) [I71.21] Path report.gross observation SEE COMMENT A: Received in formalin, labeled with the patient's name and hospital number and "aortic tissue", are multiple segments of aortic tissue aggregating to 12.2 x 6.8 x 0.2 cm. The wall is 0.2 cm in thickness. The intimal surface does not demonstrate calcific atherosclerosis. The advential surface demonstrates an area of mild hemorrhage. Book Cutter sections are submitted in one cassette. TAVO CARBOXYHEMOGLOBIN/HEMOGLOBIN.TOTAL Rosmery ected: 08/10/2024 7:59 AM Status: F Source: [facility] TYPE CODE TESTS RESULT OUT OF RANGE REFERE NCE UNITS LAB 56830-6(KM NC) Hemoglobin 12.0 12.0-1 6.0 g/dL LAB 2714-4(LOIN C) Oxyhemoglob in/Hemoglob in.total 98.2 High 94.0-9 8.0 % LAB 2030-5(LOIN C) Carboxyhemo globin/Hemo globin.tota l 1.5 % Result Comment: Ref Values Non-Smokers 0.5-1.5% Smokers 0.5-10.0% LAB 2615-3(LOIN C) Methemoglob in/Hemoglob in.total 0.3 0.0-1. 5 % LAB 39499-2(KM NC) Deoxyhemogl obin/Hemogl obin.total 0.0 0.0-5. 0 % Performed By: #### 2030-5 ## ## STEFANO TROY ([id number]) [facility] ([facility]) [address] [place] [address] GAS AND CO AND ELECTROLYTES PANEL Collected: 08/10/2024 7:59 AM Status: F Source: [facility] TYPE CODE TESTS RESULT OUT OF RANGE REFERENCE UNITS LAB 2744-1(LOINC) pH 7.41 7.38-7.42 pH LAB 2019-8(LOINC) Carbon dioxide 35 Low 38-42 mm Hg LAB 2703-7(LOINC) Oxygen 225 High 85-95 mm Hg LAB 2708-6(LOINC) Oxygen saturation 100 94-100 % LAB 2714-4(INC) Oxyhemoglobin/ Hemoglobin.tot al 98.2 High 94.0-98.0 % LAB 39007-0(LOINC) Hematocrit 36.0 36.0-46.0 % LAB 79767-8(LOINC) Sodium 139 136-145 mmol/L LAB 32284-3(LOINC) Potassium 3.6 3.5-5.3 mmol/L LAB 08799-2(LOINC) Chloride 107 98-107 mmol/L LAB 50292-1(LOINC) Calcium.ionize d 1.23 1.10-1.33 mmol/L LAB 90743-9(LOINC) Glucose 127 High 74-99 mg/dL LAB 2518-9(LOINC) Lactate 1.5 0.4-2.0 mmol/L LAB 1925-7(LOINC) Base excess -2.0 -2.0-3.0 mmol/ L LAB 1960-4(LOINC) Bicarbonate 22.2 22.0-26.0 mmol /L LAB 59316-8(LOINC) Hemoglobin 12.0 12.0-16.0 g/dL LAB 53719-5(LOINC) Anion gap 4 13 10-25 mmo/L LAB 8310-5(LOINC) Body temperature 37.0 degrees Celsius Result Comment: NOTE: Patinesha t Results are Not Corrected for Temperature LAB 3150-0(LOINC) Oxygen/Gas.tot al 60 % Performed By: #### 93652-5 # ### STEFANO TROY ([id number]) [facility] ([facility]) [address] [place] [address] ACTIVATED CLOTTING TIME Collected: 08/10/2024 7:57 AM Status: F Source: [facility] TYPE CODE TESTS RESULT OUT OF RANGE REFERENCE UNITS LAB 3184-9([facility]) Activated clotting time 93 82-174 sec Result Comment: Target ACT r damion will vary based on the patient population, clinical status, and surgical intervention occurring. Performed By: #### 3184-9 ## ## STEFANO TROY ([id number]) [facility] ([facility]) [address] [place] [address] VERAB/VERIFY ABORH Collected: 7:11 AM Status: F Source: [facility] Order Comment: This is for confirming/verifying history of ABORh on file for transfusion of blood products. If this is not for transfusion, please order an ABO/RH [[id number]]. If you have any questions or unsure what to order, please call the blood bank. TYPE CODE TESTS RESULT OUT OF RANGE REFERENCE UNITS LAB 883-9([facility]) ABO group O LAB 1305-2([facility]) D Ag POS Performed By: #### VERAB ### # STEFANO TROY ([id number]) [facility] ([facility]) [address] [place] [address] [place] GLUCOSE Collected: 7:07 AM Status: F Source: [facility] TYPE CODE TESTS RESULT OUT OF RANGE REFERENCE UNITS LAB 2341-6([facility]) Glucose 113 High 74-99 mg/dL Performed By: #### 2341-6 ## ## STEFANO TROY ([id number]) [facility] ([facility]) [address] [place] [address] ECG 12-LEAD Observed: 07/29/2024 10:46 AM Status: F Source: [facility] Ventricular Rate 59 Atrial Rate 59 P-R Interval 182 QRS Duration 86 Q-T Interval 428 QTC Calculation(Bazett) 423 P Aurora 44 R Aurora 2 T Aurora 12 QRS Count 10 Q Onset 220 P Onset 129 P Offset 200 T Offset 434 QTC Fredericia 425 Diagnosis Sinus bradycardia Nonspecific ST and T wave abnormality Abnormal ECG No previous ECGs available Confirmed by Santo Hargrove ([id number]) on 07/29/2024 2:34:55 PM STAPHYLOCOCCUS AUREUS.METHICILLIN RESISTANT ISOLATE Observed: 07/29/2024 10:41 AM Status: F Source: [facility] Test: Staphylococcus aureus/ MRSA colonization, Culture Specimen Source: Nares/Axilla/Groin Specimen Type: Swab Specimen Date: 07/29/2024 1041 Result Date: 07/31/2024 0741 Result Status: Final result Abnormal: No Resulting Lab: [facility] [address] [place] [address] CULTURE No Staphylococcus aureus isolated Performed By: #### 22108-8 # ### ZABRINA Villalba ([id number]) [facility] ([facility]) [address] [place] [address] XR CHEST 2 VIEWS Observed: 07/29/2024 10:18 AM Status: F Source: [facility] Interpreted By: Ni Ram, STUDY: Chest, 2 views. INDICATION: Signs/Symptoms:preop. COMPARISON: None. ACCESSION NUMBER(S): [id number] ORDERING CLINICIAN: TANIA CEDILLO FINDINGS: The cardiomediastinal silhouette size is within normal limits. There is no focal consolidation, edema or pneumothorax. No sizeable pleural effusion. IMPRESSION: 1. No acute cardiopulmonary process. MACRO: None. Signed by: Key Ram 07/30/2024 6:59 PM Dictation workstation: [id number] URINALYSIS COMPLETE W REFLEX CULTURE PANEL Collected: 07/29/2024 10:16 AM Status: F Source: [facility] TYPE CODE TESTS RESULT OUT OF RANGE REFERENCE UNITS LAB 31790-4(LOINC) Leukocytes 1-5 1-5, NONE /HPF LAB 72379-0(LOINC) Erythrocytes 1-2 NO NE, 1-2, 3-5 /HPF LAB 90396-4(LOINC) Epithelial cells.squamous 1-9 (SPARSE) Reference range not established. /HPF LAB 84558-5(LOINC) Mucus FEW Refer ence range not established. /LPF Performed By: #### 05421-6 # ### STEFANO TROY ([id number]) [facility] ([facility]) [address] [place] [address] URINALYSIS COMPLETE W REFLEX CULTURE PANEL Collected: 07/29/2024 10:16 AM Status: F Source: [facility] TYPE CODE TESTS RESULT OUT OF RANGE REFERENCE UNITS LAB 5778-6(LOINC) Color Light-Yellow Lig ht-Yellow , Yellow, Dark-Yellow LAB 5767-9(LOINC) Appearance Clear Clear LAB 47505-5(LOINC) Specific gravity 1.029 1.005-1. 035 LAB 15747-8(LOINC) pH 5.5 5.0, 5.5, 6.0, 6.5, 7.0, 7.5, 8.0 LAB 54357-6(LOINC) Protein 10 (TRACE) NEGA TIVE, 10 (TRACE), 20 (TRACE) mg/dL LAB 35071-5(LOINC) Glucose Normal Normal mg/dL LAB 73375-0(LOINC) Erythrocytes NEGATIVE NEGATIVE LAB 19475-0(LOINC) Ketones NEGATIVE NEGATIVE mg/dL LAB 57482-5(LOINC) Bilirubin NEGATIVE NEGATIVE LAB 99409-6(LOINC) Urobilinogen Normal Normal mg/d L LAB 06120-8(LOINC) Nitrite NEGATIVE NEGATIVE LAB 63809-3(LOINC) Leukocyte esterase NEGATIVE NEGATIVE Performed By: #### 29120-8 # ### STEFANO TROY ([id number]) [facility] ([facility]) [address] [place] [address] COMPLETE BLOOD COUNT W AUTO DIFFERENTIAL PANEL Collected: 07/29/2024 10:16 AM Status: F Source: [facility] TYPE CODE TESTS RESULT OUT OF RANGE REFERENCE UNITS LAB 6690-2(LOINC) Leukocytes 5.5 4.4-11.3 x10*3/ uL LAB 75486-9(LOINC ) Erythrocytes.nuc leated/100 leukocytes 0.0 0.0-0.0 /100 WBCs LAB 789-8(LOINC) Erythrocytes 4.41 4.00-5.20 x10* 6/uL LAB 718-7(LOINC) Hemoglobin 12.9 12.0-16.0 g/dL LAB 4544-3(LOINC) Hematocrit 41.4 36.0-46.0 % LAB 787-2(LOINC) Erythrocyte mean corpuscular volume 94 80-100 fL LAB 785-6(LOINC) Erythrocyte mean corpuscular hemoglobin 29.3 26.0-34.0 pg LAB 786-4(LOINC) Erythrocyte mean corpuscular hemoglobin concentration 31.2 Low 32.0-36.0 g/dL LAB 788-0(LOINC) Erythrocyte distribution width 13.2 11.5-14.5 % LAB 777-3(LOINC) Platelets 317 150-450 x10*3/uL LAB 770-8(LOINC) Neutrophils/100 leukocytes 54.4 40.0-80.0 % LAB 39209-1(LOINC ) Granulocytes.imm ature/100 leukocytes 0.4 0.0-0.9 % Result Comment: Immature Gra nulocyte Count (IG) includes promyelocytes, myelocytes and metamyelocytes but does not include bands. Percent differential counts (%) should be interpreted in the context of the absolute cell counts (cells/UL). LAB 736-9(LOINC) Lymphocytes/100 leukocytes 32.5 13.0-44.0 % LAB 5905-5(LOINC) Monocytes/100 leukocytes 9.6 2.0-10.0 % LAB 713-8(LOINC) Eosinophils/100 leukocytes 2.7 0.0-6.0 % LAB 706-2(LOINC) Basophils/100 leukocytes 0.4 0.0-2.0 % LAB 751-8(LOINC) Neutrophils 3.00 1.60-5.50 x10*3 /uL Result Comment: Percent diff erential counts (%) should be interpreted in the context of the absolute cell counts (cells/uL). LAB 24052-3(LOINC ) Granulocytes.imm ature 0.02 0.00-0.50 x10*3/uL LAB 731-0(LOINC) Lymphocytes 1.79 0.80-3.00 x10*3 /uL LAB 742-7(LOINC) Monocytes 0.53 0.05-0.80 x10*3/u L LAB 711-2(LOINC) Eosinophils 0.15 0.00-0.40 x10*3 /uL LAB 704-7(LOINC) Basophils 0.02 0.00-0.10 x10*3/u L Performed By: #### 56539-2 # ### STEFANO TROY ([id number]) [facility] ([facility]) [address] [place] [address] PT AND APTT PANEL Collected: 10:16 AM Status: F Source: [facility] Order Comment: The APTT is n o longer used for monitoring Unfractionated Heparin Therapy. For monitoring Heparin Therapy, use the Heparin Assay. TYPE CODE TESTS RESULT OUT OF RANGE REFERENCE UNITS LAB 5902-2(LOINC) Coagulation tissue factor induced 11.2 9.8-12.8 seconds LAB 6301-6(LOINC) Coagulation tissue factor induced.INR 1.0 0.9-1.1 NA LAB 30750-7(LOINC) Coagulation surface induced 34 27-38 seconds Performed By: #### 18150-4 # ### STEFANO TROY ([id number]) [facility] ([facility]) [address] [place] [address] C REACTIVE PROTEIN Collected: 10:16 AM Status: F Source: [facility] TYPE CODE TESTS RESULT OUT OF RANGE REFERENCE UNITS LAB 1987-(LOINC) C reactive protein <0.10 <1.00 mg/dL Performed By: #### 1988-01 ## ## STEFANO TROY ([id number]) [facility] ([facility]) [address] [place] [address] COMPREHENSIVE METABOLIC 2000 PANEL Collected: 07/29/2024 10:16 AM Status: F Source: [facility] TYPE CODE TESTS RESULT OUT OF RANGE REFERENCE UNITS LAB 2345-7(LOINC) Glucose 105 High 74-99 mg/dL LAB 2951-2(LOINC) Sodium 137 136-145 mmol/L LAB 2823-3(LOINC) Potassium 4.5 3.5-5.3 mmol/L LAB 2075-0(LOINC) Chloride 104 98-107 mmol/L LAB 2027-9(LOINC) Carbon dioxide 28 21-32 mmo l/L LAB 44926-6(LOINC ) Anion gap 10 10-20 mmol/L LAB 3094-0(LOINC) Urea nitrogen 29 High 6-23 mg/d L LAB 2160-0(LOINC) Creatinine 0.89 0.50-1.05 mg/dL LAB 67372-5(LOINC ) Glomerular filtration rate/1.73 sq M.predicted 68 >60 mL/min/ 1.73m*2 Result Comment: Calculations of estimated GFR are performed using the 2020 CKD- EPI Study Refit equation without the race variable for the IDMS-Traceable creatinine methods. https://jasn.asnjournals.org/content/early//ASN.9182391753 LAB 13751-6(LOINC ) Calcium 9.6 8.6-10.3 mg/dL LAB 26953-2(LOINC ) Albumin 4.5 3.4-5.0 g/dL LAB 6768-6(LOINC) Alkaline phosphatase 85 33-136 U/L LAB 2885-2(LOINC) Protein 6.7 6.4-8.2 g/dL LAB 95443-4(LOINC ) Aspartate aminotransferase 18 9-39 U/L LAB 1975-2(LOINC) Bilirubin 0.7 0.0-1.2 mg/dL LAB 1743-4(LOINC) Alanine aminotransferase 17 7-45 U/L Result Comment: Patients kannan ated with Sulfasalazine may generate falsely decreased results for ALT. Performed By: #### 55151-1 # ### STEFANO TROY ([id number]) [facility] ([facility]) [address] [place] [address] BLOOD TYPE AND INDIRECT ANTIBODY SCREEN PANEL Collected: 07/29/2024 10:16 AM Status: F Source: [facility] TYPE CODE TESTS RESULT OUT OF RANGE REFERENCE UNITS LAB 883-9(LOINC) ABO group O LAB 1305-2(LOINC) D Ag POS Result Comment: 2nd ABO test required. Order and Collect VERAB LAB 890-4(LOINC) Blood group antibody screen NEG Performed By: #### 60218-1 # ### STEFANO TROY ([id number]) [facility] ([facility]) [address] [place] [address], [place] [address] DAVID SCREENING W OSVALDO Observed: 9:38 AM Status: F Source: [facility] * * *Final Report* * * DATE OF EXAM: Jul 23 2024 9:38AM WRW [id number] - DAVID SCREENING W OSVALDO / PROCEDURE REASON: Screening mammogram for breast cancer * * * * Physician Interpretation * * * * RESULT: [facility] [address] [place] [id number] HISTORY: Patient is 73 years old and is seen for screening and is asymptomatic in both breasts. The patient has a history of right breast cancer in 2010. COMPARISON STUDIES: The present examination has been compared to prior imaging studies dated 07/16/2019 (mammogram), 07/18/2020 (mammogram), 07/20/2021 (mammogram), 07/23/2022 (mammogram) and 07/23/2023 (mammogram). MAMMOGRAM TECHNIQUE: The study was acquired using full field digital technology and interpreted from soft copy. Digital Breast Tomosynthesis (DBT) images were obtained and used to assist in the interpretation of this examination. Computer-aided detection was utilized by the radiologist in the interpretation of this examination. MAMMOGRAM FINDINGS: There are scattered areas of fibroglandular density. There are post-operative changes in the right breast. No suspicious masses, calcifications or other abnormalities are seen in either breast. IMPRESSION: There is no mammographic evidence of malignancy. Routine screening mammogram is recommended. Annual mammogram will be due in 1 year. BI-RADS Category 2: Benign Interpreting Radiologist: Etta Garrison M.D. Electronically signed on: 07/24/2024 Meat Washer: JOANN Transcribe Date/Time: Jul 23 2024 9:07A Dictated by: ETTA GARRISON MD This examination was interpreted and the report reviewed and electronically signed by: ETTA GARRISON MD on Jul 24 2024 4:33PM EST [id number] Observed: 07/23/2024 9:10 AM Status: COMPLETED Source: [facility] HNO ID: [id number] Author: CORA BAIRD, Mammo [place] Service: ? Author Type: Mender Hand Type: Progress Notes Filed: 07/23/2024 09:04 Note Text: Radiology Service Progress Note PATIENT NAME: Bob Jacob DATE OF SERVICE: July 23, 2024 TIME: 9:04 AM PATIENT IDENTITY VERIFICATION COMPLETED USING TWO (2) IDENTIFIERS: Name and Date of confirmed by patient verbally. FALL SCREENING: Has the patient had 2 falls in the last year or 1 fall with injury or currently using an Ambulatory Assistive Device (Walker, Cane, Wheelchair, Crutches, etc.)? No PATIENT GENDER DATA: Female. status: : No status: NO. 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: No RADIOLOGY DEPARTMENT: Mammography PERIPHERAL IV DATA: Not applicable SIGNED BY: Mary Hunt July 23, 2024 9:04 AM CARDIAC CATHETERIZATION PROCEDURE Observed: 06/09/2024 12:09 PM Status: F Source: [facility], Cath L , [address] [place] [address] Cardiovascular Catheterization Report Patient Name: BOB JACOB Performing Physician: [id number] Blue MD Study Date: 06/09/2024 Verifying Physician: Elizabeth Blue MD MRN/PID: [id number] Exercise Physiologist/Co-Scrub: Ordering Provider: [id number] CEDILLO Date of /Age: 3 1950 / 73 years Exercise Physiologist: Gender: F Fellow: Surgeon: Study: Left Heart Cath Additional Study: Coronary Arteriogram Indications: BOB JACOB is a 74 year old female who presents with peripheral artery disease and an asymptomatic chest pain assessment. Pre-operative evaluation. Appropriate Use Criteria: Pre-op coronary evaluation for vascular surgery in a patient with <4 METS functional capacity, no noninvasive testing performed with =3 risk factors; AUC score = 6. Procedure Description: After infiltration with 1% Lidocaine, the right radial artery was cannulated with a modified Seldinger technique. Subsequently a 6 Spanish sheath was placed retrograde in the right radial artery. Selective coronary catheterization was performed using a 5 Fr catheter(s) exchanged over a guide wire to cannulate the coronary arteries. A JL 5 tip catheter was used for left coronary injections. A JR 4 tip catheter was used for right coronary injections. Multiple injections of contrast were made into the left and right coronary arteries with angiograms recorded in multiple projections. Coronary Angiography: The coronary circulation is left dominant. Left Main Coronary Artery: The left main coronary artery is a normal caliber vessel. The left main arises normally from the left coronary sinus of Valsalva and bifurcates into the LAD and circumflex coronary arteries. The left main coronary artery showed no significant disease or stenosis greater than 30%. The entire left main coronary artery showed <10% stenosis. Left Anterior Descending Coronary Artery Distribution: The left anterior descending coronary artery is a normal caliber vessel. The LAD arises normally from the left main coronary artery. The LAD demonstrated no significant disease or stenosis greater than 30%. The entire left anterior descending coronary artery showed 10 to 30% stenosis. The 1st diagonal branch showed no significant disease or stenosis greater than 30%. The 2nd diagonal branch demonstrated no significant disease or stenosis greater than 30%. The 3rd diagonal branch revealed no significant disease or stenosis greater than 30%. Circumflex Coronary Artery Distribution: The circumflex coronary artery is a normal caliber vessel. The circumflex arises normally from the left main coronary artery and terminates in the AV groove. The circumflex revealed no significant disease or stenosis greater than 30%. The entire circumflex coronary artery showed 10 to 30% stenosis. The 1st obtuse marginal branch showed no significant disease or stenosis greater than 30%. The 2nd obtuse marginal branch demonstrated no significant disease or stenosis greater than 30%. The 3rd obtuse marginal branch revealed no significant disease or stenosis greater than 30%. The left posterior descending artery showed no significant disease or stenosis greater than 30%. Right Coronary Artery Distribution: The right coronary artery is a normal caliber vessel. The RCA arises normally from the right sinus of Valsalva. The RCA showed no significant disease or stenosis greater than 30%. The entire right coronary artery showed 10 to 30% stenosis. The acute marginal branch showed no significant disease or stenosis greater than 30%. Coronary Lesion Summary: Vessel Stenosis Vessel Segment Left Main <10% stenosis entire LAD 10 to 30% stenosis entire Circumflex 10 to 30% stenosis entire RCA 10 to 30% stenosis entire Complications: No in-lab complications observed. Cardiac Cath Post Procedure Notes: Post Procedure Diagnosis: Left dominant coronary circulation with trivial non-obstructive CAD LVEDP 17 mm Hg. Blood Loss: Estimated blood loss during the procedure was 10 mls. Specimens Removed: Number of specimen(s) removed: none. Recommendations: Maximize medical therapy. Agressive risk factor modification efforts. Telemetry monitoring. Monitor vitals and arterial access site/pulses. Prompt evaluation for recurrent chest pain. Patient counseled and advised to discontinue smoking. ____ CONCLUSIONS: 1. Left dominant coronary circulation with trivial diffuse non-obstructive CAD, as described above. 2. LVEDP 17 mm Hg. ICD 10 Codes: Aneurysm of the ascending aorta, without rupture-I71.21 CPT Codes: Left Heart Cath (visualization of coronaries) and LV-28230 38187 Fly Blue MD Performing Physician Final ALLERGIES DATE TYPE / CODE NAME / CODE REACTION SEVERITY SOURCE 05/14/2024 DRUG/182303652( SNOMED CT) ADHESIVE TAPE-SILICONES Itching [facility] 05/14/2024 DRUG INGREDI/7565380 03(SNOMED CT) AMLODIPINE Swelling [facility] 05/14/2024 DRUG INGREDI/4481432 03(SNOMED CT) DOXAZOSIN Dizziness [facility] 05/14/2024 DRUG INGREDI/4277008 03(SNOMED CT) LISINOPRIL Cough [facility] 05/14/2024 DRUG INGREDI/9049582 03(SNOMED CT) MELOXICAM Other [facility] 01/02/2024 DRUG INGREDI/4860181 03(SNOMED CT) MELOXICAM Myalgia [facility] 08/26/2023 DRUG INGREDI/8601920 03(SNOMED CT) HOUSE DUST MITE COUGH Low [facility] 11/06/2018 Drug Class/974711051 (SNOMED CT) ADHESIVE RASH Med [facility] 03/09/2010 DRUG INGREDI/8086404 03(SNOMED CT) LISINOPRIL COUGH Low [facility] 01/30/2010 DRUG INGREDI/6071883 03(SNOMED CT) AMLODIPINE BESYLATE SWELLING [facility] ENCOUNTERS ADMIT/DISCHARGE ACCOUNT NUMBER ADMITTING ENCOUNTER CLASS LOCATION SOURCE 10/28/2024/10/28/19 [id number] Ambulatory [facility] HospitalBuil ding:GAVIN [facility] 10/27/2024 [id number] Ambulatory [facility] Hospital[facility] ding:GAVIN [facility] 10/13/2024/10/13/19 [id number] [facility] 10/12/2024/10/12/19 [id number] [facility] 10/07/2024/10/07/19 [id number] [id number]10/07/19 25 [id number] Ambulatory Building:[facility] [id number] [facility] 09/30/2024/09/30/19 [id number] [id number] 08/28/2024/08/28/20 24 [id number] [facility] 08/27/2024/08/27/20 24 [id number] Ambulatory Building:[facility] [id number] [facility] 08/25/2024 [id number] Ambulatory Building:[facility] 08/10/2024/08/10/20 24 [id number] Inpatient Encounter Building:[facility] 08/10/2024 [id number] TANIA CEDILLO Inpatient Encounter Building:[facility] Hughm: J Luis d: [id number] [facility] 07/29/2024/07/29/20 24 [id number] Ambulatory Building:[facility] 07/29/2024/07/29/20 24 [id number] Ambulatory Building:[facility] 07/29/2024/07/29/20 24 [id number] Ambulatory Building:[facility] 07/23/2024/07/23/20 24 [id number] Ambulatory [facility] HospitalBuil ding:WODM [facility] 07/22/2024/07/22/20 24 [id number] Ambulatory Building:[facility] 06/24/2024/06/24/20 24 [id number] Ambulatory Building:[facility] [id number] [facility] 06/09/2024/06/09/20 24 [id number] FLY BLUE Ambulatory Building:[facility] CVEPIRoom: AHUACVEPINVP OOLBed: [id number] [facility] PAYERS ENCOUNTER GUARANTOR PAYER SUBSCRIBER SOURCE 10/28/2024 Primary Insurance:[facility] MEDICARE ADVANTAGE [facility] Number: [id number] Date:5298-05-28Ovle Name:Hailey ZAPATA: [id number] [place] [id number] [facility] 10/27/2024 Primary Insurance:[facility] MEDICARE ADVANTAGE OPolicy Number: [id number] Date:7089-44-24Spbi Name:Hailey ZAPATA: [id number] [place] [address] [facility] 10/13/2024 Primary Insurance:[facility] MEDICARE ADVANTAGE OPolicy Number: [id number] Date:8217-42-00Qyvh Name:Hailey ZAPATA: [id number] [place] [address] [facility] 10/12/2024 Primary Insurance:[facility] MEDICARE ADVANTAGE OPolicy Number: [id number] Date:0182-72-06Syob Name:Hailey ZAPATA: [id number] [place] [address] [facility] 10/07/2024 BOB BETTENCOURTB: [place], [place] [address]Vto: (HP) Primary Insurance:[employer] MEDICAREPolicy Number: [id number] Date:2023-09-09 BOB BETTENCOURTB: [id number] [place], [place] [address]Afl: (HP) [facility] 10/07/2024 BOB ZAPATA: [place], [place] [address]Ndc: (HP) Primary Insurance:[employer] MEDICAREPolicy Number: [id number] Date:2023-09-09 BOB BETTENCOURTB: [id number] [place], [place] [address]Awo: (HP) [facility] 09/30/2024 BOB ZAPATA: [place], [place] [address]Xez: (HP) Primary Insurance:[employer] MEDICAREPolicy Number: [id number] Date:2023-09-09 BOB BETTENCOURTB: [id number] [place], [place] [address]Juv: (HP) [facility] 08/28/2024 Primary Insurance:[employer] MED[employer]ARE ADVANTAGE HMOPolicy Number: [id number] Date:3276-67-83Qnky Name:Hailey ZAPATA: [id number] [place] [address] [facility] 08/27/2024 BOB BETTENCOURTB: [place], [place] [address]Xrh: () Primary Insurance:[facility] MEDICAREPolicy Number: [id number] Date:2023-09-09 BOB DREWRENITAB: [id number] [place], [place] [address]Oaq: () [facility] 08/25/2024 BOB MARQUIS SGB: [place], [place] [address]Enw: () Primary Insurance:[facility] MEDICAREPolicy Number: [id number] Date:2023-09-09 BOB MARQUIS SGB: [id number] [place], [place] [address]Umd: () [facility] 08/10/2024 BOB BENITEZ BETTENCOURTB: [place], [place] [address]Dxw: () Primary Insurance:[facility] MEDICAREPolicy Number: [id number] Date:2023-09-09 BOB BENITEZ ZAPATA: [id number] [place], [place] [address]Qij: () [facility] 08/10/2024 BOB BETTENCOURTB: [place], [place] [address]Bus: () Primary Insurance:[facility] MEDICAREPolicy Number: [id number] Date:2023-09-09 BOB ZAPATA: [id number] [place], [place] [address]Otj: () [facility] 07/29/2024 BOB BETTENCOURTB: [place], [place] [address]Nnk: () Primary Insurance:[facility] MEDICAREPolicy Number: [id number] Date:2023-09-09 BOB MARQUIS SGB: [id number] [place], [place] [address]Xff: (HP) [facility] 07/29/2024 BOB MARQUIS SGB: [place], [place] [address]Jmg: (HP) Primary Insurance:[employer] MEDICAREPolicy Number: [id number] Date:2023-09-09 BOB MARQUIS SGB: [id number] [place], [place] [address]Jrl: (HP) [facility] 07/29/2024 BOB ANNE SGB: [place], [place] [address]Qcy: () Primary Insurance:[employer] MEDICAREPolicy Number: [id number] Date:2023-09-09 BOB MARQUIS SGB: [id number] [place], [place] [address]Pgu: (HP) [facility] 07/23/2024 Primary Insurance:[facility] MEDICARE ADVANTAGE OPolicy Number: [id number] Date:6761-16-02Mslj Name:Hailey ZAPATA: [id number] [place] [address] [facility] 07/22/2024 BOB BETTENCOURTB: [place], [place] [address]Omg: () Primary Insurance:[employer] MEDICAREPolicy Number: [id number] Date:2023-09-09 BOB ZAPATA: [id number] [place], [place] [address]Amd: () [facility] 06/24/2024 BOB ZAPATA: [place], [place] [address]Ris: () Primary Insurance:[employer] MEDICAREPolicy Number: [id number] Date:2023-09-09 BOB BETTENCOURTB: [id number] [place], [place] [address]Sbl: () [facility] 06/09/2024 BOB ZAPATA: [place], [place] [address]Nau: () Primary Insurance:[employer] MEDICAREPolicy Number: [id number] Date:2023-09-09 BOB ZAPATA: [id number] [place] [address] [facility]
--- OUTSIDE RECORDS SUMMARY | 2024-10-28 09:00 | XMS RPT_ITS ---
Author Name Auto Generated Organization OHIP Care Team Providers Care Community Relations Liaison Name Role Phone JAE CAUSEY Primary Care Unavailable FLY BLUE Admitting Unavailable FLY BLUE Attending Unavailable NGUYEN, TANIA R Admitting Unavailable NGUYEN, TANIA R Attending Unavailable JAE CAUSEY Primary Care Unavailable NGUYEN, TANIA R Referring Unavailable JAE CAUSEY Primary Care Unavailable BECKY ARMENTA Attending Unavailable JAE CAUSEY Primary Care Unavailable BECKY ARMENTA Referring Unavailable NGUYEN, TANIA R Referring Unavailable JAE CAUSEY Primary Care Unavailable BONIFACIO OLMEDO Referring Unavailable JAE CAUSEY Primary Care Unavailable JAE CAUSEY Referring Unavailable CAUSEY, DHARA Primary Care Unavailable CAUSEY, DHARA Primary Care Unavailable SAVANNA MELVIN Attending Unavailable MARIUM, DHARA Primary Care Unavailable SAVANNA MELVIN Referring Unavailable CAUSEY, DHARA Primary Care Unavailable SAVANNA MELVIN Attending Unavailable CAUSEY, DHARA Primary Care Unavailable CAUSEY, DHARA Referring Unavailable CAUSEY, DHARA Primary Care Unavailable CAUSEY, DHARA Referring Unavailable TANIA CEDILLO Attending Unavailable ISAIAS HURST Referring Unavailable CAUSEY, JAE JIMÉNEZ Primary Care Unavailable CAUSEY, JAE PRAKASH KAJALZOHailey Primary Care Unavailable EH COLON Referring Unavailable CAUSEY, JAE PRAKASH KAJALZOHailey Primary Care Unavailable CAUSEY, JAE RDZZOHailey Primary Care Unavailable TANIA CEDILLO Referring Unavailable CAUSEY, JAE PRAKASH KAJALZON Primary Care Unavailable TANIA CEDILLO Referring Unavailable CAUSEY, JAE PRAKASH KAJALZOHailey Primary Care Unavailable TANIA CEDILLO Attending Unavailable CAUSEY, JAE PRAKASH KAJALZOHailey Primary Care Unavailable PROBLEMS DATE TYPE CONDITION / CODE ATTENDING STATUS [facility] 10/28/2024 Active Thrombocytosis / D75.839(ICD-10) NA Active [facility] 05/29/2024 Active Controlled type 2 diabetes mellitus without complication, without long-term current use of insulin (HCC) / E11.9(ICD-10) NA Active [facility] 09/04/2023 Active Elevated LDL cholesterol level / E78.00(ICD-10) NA Active [facility] 06/21/2009 Active Essential hypertension, benign / I10(ICD-10) NA Active [facility] 10/07/2024 Admitting Diagnosis Presence of other vascular implants and grafts / Z95.828(ICD-10) TANIA CEDILLO Active [facility] 08/28/2024 Active S/P aortic aneur ysm repair / Z98.890(ICD-10) SAVANNA MELVIN Active [facility] 08/28/2024 Active S/P aortic aneur ysm repair / Z86.79(ICD-10) SAVANNA MELVIN Active [facility] 08/28/2024 Active Bilateral lower extremity edema / R60.0(ICD-10) SAVANNA MELVIN Bucky Active [facility] 08/28/2024 Active Palpitations / R00.2(ICD-10) SAVANNA MELVIN Bucky Active [facility] 08/28/2024 Active Dyspnea on exert ion / R06.09(ICD-10) SAVANNA MELVIN Active [facility] 08/28/2024 Active Positional lightheadedness / R42(ICD-10) SAVANNA MELVIN Bucky Active [facility] 08/28/2024 Active Venous insuffici ency / I87.2(ICD-10) SAVANNA MELVIN Active [facility] 08/28/2024 Active Weakness / R53.1(ICD-10) SAVANNA MELVIN Bucky Active [facility] 08/28/2024 Active Pleural effusion / J90(ICD-10) SAVANNA MELVIN Active [facility] 08/28/2024 Active Blood loss anemi a / D50.0(ICD-10) SAVANNA MELVIN Active [facility] 08/27/2024 Admitting Diagnosis Nurse Visit / FREETEXT() NA [facility] 07/29/2024 Admitting Diagnosis Shortness of breath / R06.02(ICD-10) NA [facility] 07/29/2024 Admitting Diagnosis Frequency of micturition / R35.0(ICD-10) NA [facility] 07/29/2024 Admitting Diagnosis Encounter for other preprocedural examination / Z01.818(ICD-10) BECKY AMRENTA [facility] 07/23/2024 Active Screening mammog adilson for breast cancer / Z12.31(ICD-10) NA [facility] 06/24/2024 Admitting Diagnosis Aneurysm of the ascending aorta, without rupture (CMS-HCC) / I71.21(ICD-10) [facility] 06/09/2024 Admitting Diagnosis Thoracic aortic ectasia (CMS-HCC) / I77.810(ICD-10) FLY BLUE [facility] 05/28/2024 Admitting Diagnosis Nonrheumatic mitral (valve) insufficiency / I34.0(ICD-10) [facility] 05/28/2024 Admitting Diagnosis Nonrheumatic tricuspid (valve) insufficiency / I36.1(ICD-10) [facility] 05/28/2024 Admitting Diagnosis Nonrheumatic aortic (valve) insufficiency / I35.1(ICD-10) [facility] PROCEDURES No Procedure Records Found RESULTS ALBUMIN/CREATININE RATIO, URINE Collect ed: 10/28/2024 8:10 AM Status: F Source: [facility] Order Comment: Specimen Type : URINE SPECIMEN Ordering Facility: [facility] Address: [address] [place] [address] TYPE CODE TESTS RESULT OUT OF RANGE REFERENCE UNITS LAB 2161-8(LOINC) Creat Ur-mCnc 287.1 20.0-300.0 m g/dL LAB 65384-1(LOINC ) Microalbumin Ur-mCnc 87.4 mg/L LAB 9318-7(LOINC) [...] 3(1), 1-150. Performed By: #### UACR #### [facility] CLIA [id number] [address] [place] [address] [place] CBC W AUTO DIFF BLD Collected: 10/28/2024 8:[address] atus: F Source: [facility] Order Comment: Specimen Type : BLOOD SPECIMEN Ordering Facility: [facility] Address: [address] [place] [address] TYPE CODE TESTS RESULT OUT OF RANGE REFERENCE UNITS LAB 6690-2(LOINC) WBC # Bld Auto 8.22 3.70-11.00 k/uL LAB 789-8([facility]) RBC # Bld Auto 4.55 3.90-5.20 m/ uL LAB 718-7([facility]) Hgb Bld-mCnc 13.0 11.5-15.5 g/dL LAB 4544-3([facility]) Hct VFr Bld Auto 42.0 36.0-46.0 % LAB 787-2([facility]) MCV RBC Auto 92.3 80.0-100.0 fL LAB 785-6([facility]) MCH RBC Qn Auto 28.6 26.0-34.0 p g LAB 786-4([facility]) MCHC RBC Auto-mCnc 31.0 30.5-36.0 g/dL LAB 19930-2([facility]) RDW RBC-Rto 16.9 High 11.5-15.0 % LAB 777-3([facility]) Platelet # Bld Auto 397 150-400 k/uL LAB 02172-8([facility]) PMV Bld Auto 10.4 9.0-12.7 fL LAB 770-8([facility]) Neutrophils/leuk NFr Bld Auto 56.6 % LAB 751-8([facility]) Neutrophils # Bld Auto 4.66 1.45-7.50 k/uL LAB 736-9([facility]) Lymphocytes/leuk NFr Bld Auto 29.0 % LAB 731-0([facility]) Lymphocytes # Bld Auto 2.38 1.00-4.00 k/uL LAB 5905-5([facility]) Monocytes/leuk NFr Bld Auto 10.7 % LAB 742-7([facility]) Monocytes # Bld Auto 0.88 High <0.87 k/uL LAB 713-8([facility]) Eosinophil/leuk NFr Bld Auto 2.6 % LAB 711-2([facility]) Eosinophil # Bld Auto 0.21 <0.46 k/uL LAB 706-2([facility]) Basophils/leuk NFr Bld Auto 0.7 % LAB 704-7([facility]) Basophils # Bld Auto 0.06 <0.11 k/uL LAB 47529-8([facility]) Imm Granulocytes/celena k NFr Bld Auto 0.4 % LAB 04083-8(INC) Imm Granulocytes # Bld Auto 0.03 <0.10 k/uL LAB 99669-2(INC) nRBC/100 WBC Bld-Rto 0.0 /100 WBC LAB 771-6([facility]) nRBC # Bld Auto <0.01 <0.01 k/u L LAB 89668-2([facility]) Differential method Bld Auto Performed By: #### 74494-4 # ### [facility] CLIA [id number] [address] [place] [address] [place] DEPRECATED HGB A1C BLD Collected: 10/28 8:04 AM Status: F Source: [facility] Order Comment: Specimen Type : BLOOD SPECIMEN Ordering Facility: [facility] Address: [address] [place] [address] TYPE CODE TESTS RESULT OUT OF RANGE REFERENCE UNITS LAB 4548-4([facility]) HbA1c MFr Bld 5.3 4.3-5.6 % Result Comment: [place] Leslie betes Association guidelines indicate that patients with HgbA1c in the range 5.7-6.4% are at increased risk for development of diabetes, and intervention by lifestyle modification may be beneficial. HgbA1c greater or equal to 6.5% is considered diagnostic of diabetes. LAB 52698-0(INC) Est. average glucose Bld gHb Est-mCnc 105 mg/dL Result Comment: eAG: (Estima jose average glucose) is a calculated value from HgbA1c and is herbicide service sales representative of the average blood glucose level in the last 2-3 month period. Performed By: #### 55206-0 # ### [facility] CLIA [id number] [address] [place] [address] [place] COMP METAB 2000 PNL SERPL Collected: 8:04 AM Status: F Source: [facility] Order Comment: Specimen Type : BLOOD SPECIMEN Ordering Facility: [facility] Address: [address] [place] [address] TYPE CODE TESTS RESULT OUT OF RANGE REFERENCE UNITS LAB 2885-2(LOINC) Prot SerPl-mCnc 7.4 6.3-8.0 g/dL LAB 1751-7(LOINC) Albumin SerPl-mCnc 4.0 3.9-4.9 g/dL LAB 83672-5(LOINC) Calcium SerPl-mCnc 10.0 8.5-10.2 mg/dL LAB 1975-2(LOINC) Bilirub SerPl-mCnc 0.4 0.2-1.3 mg/dL LAB 6768-6(LOINC) ALP SerPl-cCnc 95 34-123 U/L LAB 1920-8(LOINC) AST SerPl-cCnc 27 13-35 U/L LAB 1742-6(LOINC) ALT SerPl-cCnc 24 7-38 U/L LAB 2345-7(LOINC) Glucose SerPl-mCnc 105 High 74-99 mg/dL Result Comment: The [place] Diabetes Association (ADA) provides guidance for cutoff [...] Standards of Medical Care in Diabetes 2016, [place] Diabetes Association. Diabetes Care. 2016.39(Suppl 1). LAB 3094-0(LOINC) BUN SerPl-mCnc 34 High 7-21 mg/ dL LAB 2160-0(LOINC) Creat SerPl-mCnc 0.99 High 0.58-0.96 mg/dL LAB 2951-2(LOINC) Sodium SerPl-sCnc 138 136-144 mmol/L LAB 2823-3(LOINC) Potassium SerPl-sCnc 4.4 3.7-5.1 mmol/L LAB 2075-0(LOINC) Chloride SerPl-sCnc 103 98-107 mmol/L LAB 2028-9(LOINC) CO2 SerPl-sCnc 24 22-30 mmo l/L LAB 63353-3(LOINC) Anion Gap SerPl-sCnc 11 8-15 mmol/L LAB 19786-6(LOINC) Creatinine + eGFR Pnl SerPlBld 60 >=60 [...] accurately reflect actual GFR. Performed By: #### 84726-0, 2276-4, 00674-4 #### [facility] CLIA [id number] [address] [place] [address] [place] LIPID 1996 PNL SERPL Collected: 025 8:04 AM Status: F Source: [facility] Order Comment: Specimen Type : BLOOD SPECIMEN Ordering Facility: [facility] Address: [address] [place] [address] TYPE CODE TESTS RESULT OUT OF RANGE [...] risk factor for coronary heart disease LAB 60121-6(LOINC) NonHDLc SerPl-mCnc 97 <130 mg/dL Result Comment: <130 mg/dL, Optimal 130-159 mg/dL, Near optimal/above optimal 160-189 mg/dL, Borderline high 190-219 mg/dL, High >219 mg/dL, Very high Secondary prevention optimal non HDL Cholesterol levels are recommended to be <100 mg/dL LAB FT FASTING TIME 12 hrs LAB 05857-1(LOINC) VLDLc SerPl Calc-mCnc 20 <30 mg/dL LAB 9830-1(LOINC) Cholest/HDLc SerPl 3.16 <5.10 LAB 2089-1(LOINC) LDLc SerPl-mCnc 77 <100 mg/dL Result Comment: <100 mg/dL, Optimal 100-129 mg/dL, Near optimal/above optimal 130-159 mg/dL, Borderline high 160-189 mg/dL, High >189 mg/dL, Very high Secondary prevention optimal LDL Cholesterol levels are recommended to be < 70 mg/dL LAB 03645-9(LOINC) LDLc/HDLc SerPl 1.71 <2.54 Result Comment: Reference: 1. National Cholesterol Education Program ATP III Guideline At-A-Glance Quick Desk Reference: National Heart, Lung, and Blood [place]. National Institutes of Health. 2001: NIH Publication No. 01-3305. 2. An International Atherosclerosis Society position paper: global recommendations for the management of dyslipidemia: executive summary, Atherosclerosis. 2014: 232(2):410-413. Performed By: #### 25264-9, 2276-4, 48614-6 #### [facility] CLIA [id number] [address] [place] [address] [place] FERRITIN SERPL-MCNC Collected: 10/28/19 8:04 AM Status: F Source: [facility] Order Comment: Specimen Type : BLOOD SPECIMEN Ordering Facility: [facility] Address: [address] [place] [address] TYPE CODE TESTS RESULT OUT OF RANGE REFERENCE UNITS LAB 2276-4([facility]) Ferritin SerPl-mCnc 107.0 14.7-205.1 ng/mL Performed By: #### 95739-2, 2276-4, 77920-1 #### [facility] CLIA [id number] [address] [place] [address] [place] PROGRESS Observed: 10/13/2024 12:34 PM Status: COMPLETED Source: [facility] HNO ID: [id number] Author: SAVANNA MELVIN APRN.CNP Service: ? Author [...] General (Internal Medicine) Savanna Melvin APRN.CNP as Manager Field (Internal Medicine) Dr. Fleming-podiatry Dr. Moon-general surgeon Outside specialists seen: [facility], [facility]-Dr. Goldberg, Medical/Family history review Reviewed and updated [...] Controlled - Continue current medications Savanna Melvin, EDWRAD.LENS SHAPER GRINDER Medical Decision Making: Problems: Moderate: 2+ stable chronic illnesses Risk: Low: Low risk from testing/treatment Medical Decision Making Level: 3 - Low CNOV Observed: 10/13/2024 12:20 PM Status: COMPLETED Source: [facility] Office Visit (INTMWS) BOB JACOB ([id number]) 1950 F Date Time Provider Department 10/13/24 12:20 PM SAVANNA MELVIN During your visit today, we recorded the following information about you: Pulse Respiration Blood pressure Weight 80/minute 12/minute 114/70 69.1 kg Height 1.72 m Savanna Melvin, EDWARD.LENS SHAPER GRINDER 10/13/2024 12:52 PM Signed Bob Jacob is [...] General (Internal Medicine) Savanna Melvin APRN.CNP as Manager Field (Internal Medicine) Dr. Fleming-podiatry Dr. Moon-general surgeon Outside specialists seen: [facility], [facility]-Dr. Goldberg, Medical/Family history review Reviewed and updated [...] review all the medicines you take, even vwyy-fui-bgqhfqy medicines. As you get older, the way [...] Date Reviewed: 10/13/2024 Reviewed by: Savanna Melvin, GAUGE AND WEIGH MACHINE ADJUSTER.LENS SHAPER GRINDER - Fully Assessed Reason for Visit: Medicare [...] hyperlipidemia type [E78.5] Order(s):ADVANCE CARE PLAN DISCUSSION [[id number]] Order #: [id number]: 1 COMPLETE BLOOD COUNT AND DIFFERENTIAL [SQCBCDIF] Order #: [id number] FUTURE FERRITIN [SQFERR] Order #: [id number] FUTURE Prescriptions as of 10/13/2024 - aspirin, enteric coated (ASPIRIN, ENTERIC COATED) 81 mg EC tablet Take 81 mg by mouth once daily. - multivitamin (VITAMIN A DAY ORAL) Take 3,000 mcg by mouth once daily. - fluticasone (FLONASE) 50 mcg/actuation nasal spray Use 1 Pratt in each nostril once daily. - furosemide [...] tablet by mouth daily with breakfast. - pi-swo-ioimd-calcium carb-K1 (WOMEN'S 50 PLUS MULTIVITAMIN) 400 mcg-500 [...] review all the medicines you take, even jdco-bqd-jtkafdw medicines. As you get older, the way [...] for Encounter Date Provider Department Center 10/13/2024 [id number] MELVIN [facility] Encounter Status:Closed by SAVANNA MELVIN on 10/13/24 DEPRECATED HGB A1C BLD Collected: 10/12 8:54 AM Status: F Source: [facility] Order Comment: Specimen Type : BLOOD SPECIMEN Ordering Facility: [facility] Address: [address] [place], [place] [address] TYPE CODE TESTS RESULT OUT OF RANGE REFERENCE UNITS LAB 4548-4(LOINC) HbA1c MFr Bld 5.3 4.3-5.6 % Result Comment: [place] Leslie betes Association guidelines indicate that patients with HgbA1c in the range 5.7-6.4% are at increased risk for development of diabetes, and intervention by lifestyle modification may be beneficial. HgbA1c greater or equal to 6.5% is considered diagnostic of diabetes. LAB 49391-7(INC) Est. average glucose Bld gHb Est-mCnc 105 mg/dL Result Comment: eAG: (Estima jose average glucose) is a calculated value from HgbA1c and is herbicide service sales representative of the average blood glucose level in the last 2-3 month period. Performed By: #### 93131-0 # ### [facility] CLIA [id number] [address] [place], [place] [address] [address] STATES OF [facility] COMP METAB 2000 PNL SERPL Collected: 8:54 AM Status: F Source: [facility] Order Comment: Specimen Type : BLOOD SPECIMEN Ordering Facility: [facility] Address: [address] [place] [address] TYPE CODE TESTS RESULT OUT OF RANGE REFERENCE UNITS LAB 2885-2(LOINC) Prot SerPl-mCnc 7.2 6.3-8.0 g/dL LAB 1751-7(LOINC) Albumin SerPl-mCnc 4.0 3.9-4.9 g/dL LAB 55127-6(LOINC) Calcium SerPl-mCnc 9.3 8.5-10.2 mg/dL LAB 1975-2(LOINC) Bilirub SerPl-mCnc 0.3 0.2-1.3 mg/dL LAB 6768-6(INC) ALP SerPl-cCnc 100 34-123 U/L LAB 1920-8(LOINC) AST SerPl-cCnc 28 13-35 U/L LAB 1742-6(LOINC) ALT SerPl-cCnc 27 7-38 U/L LAB 2345-7(LOINC) Glucose SerPl-mCnc 148 High 74-99 mg/dL Result Comment: The [place] Diabetes Association (ADA) provides guidance for cutoff [...] Standards of Medical Care in Diabetes 2016, [place] Diabetes Association. Diabetes Care. 2016.39(Suppl 1). LAB 3094-0(LOINC) BUN SerPl-mCnc 35 High 7-21 mg/ dL LAB 2160-0(LOINC) Creat SerPl-mCnc 0.98 High 0.58-0.96 mg/dL LAB 2951-2(LOINC) Sodium SerPl-sCnc 138 136-144 mmol/L LAB 2823-3(LOINC) Potassium SerPl-sCnc 4.1 3.7-5.1 mmol/L LAB 2075-0(LOINC) Chloride SerPl-sCnc 103 98-107 mmol/L LAB 2028-9(LOINC) CO2 SerPl-sCnc 21 Low 22-30 mmo l/L LAB 61553-6(LOINC) Anion Gap SerPl-sCnc 14 8-15 mmol/L LAB 47006-5(LOINC) Creatinine + eGFR Pnl SerPlBld 61 >=60 [...] accurately reflect actual GFR. Performed By: #### 58666-6, LIPNF #### [facility] CLIA [id number] [address] [place] [address] [place] LIPID PANEL, NONFASTING Collected: 10/12/2024 8:54 AM Status: F Source: [facility] Order Comment: Specimen Type : BLOOD SPECIMEN Ordering Facility: [facility] Address: [facility] [place] [address] TYPE CODE TESTS RESULT OUT OF RANGE [...] Desk Reference: National Heart, Lung, and Blood [place]. National Institutes of Health. 2001: NIH Publication No. 01-3305. 2. An International Atherosclerosis Society position paper: global recommendations for the management of dyslipidemia: executive summary, Atherosclerosis. 2014: 232(2):410-413. Performed By: #### 71056-0, LIPNF #### [facility] CLIA [id number] [address] [place] [address] [place] CBC PNL BLD AUTO Collected: 8:54 AM Status: F Source: [facility] Order Comment: Specimen Type : BLOOD SPECIMEN Ordering Facility: [facility] Address: [address] [place] [address] TYPE CODE TESTS RESULT OUT OF RANGE [...] MCHC RBC Auto-mCnc 31.9 30.5-36.0 g/dL LAB 51213-9(INC) RDW RBC-Rto 17.9 High 11.5-15.0 % LAB 777-3(LOINC) Platelet # Bld Auto 497 High 150-400 k/uL LAB 50111-4([facility]) PMV Bld Auto 10.3 9.0-12.7 fL LAB 771-6(LOINC) nRBC # Bld Auto <0.01 <0.01 k/uL Performed By: #### 45133-8 # ### [facility] CLIA [id number] [address] [place] [address] [place] ALBUMIN/CREATININE RATIO, URINE Collect ed: 10/12/2024 8:54 AM Status: F Source: [facility] Order Comment: Specimen Type : URINE SPECIMEN Ordering Facility: [facility] Address: [address] [place] [address] TYPE CODE TESTS RESULT OUT OF RANGE REFERENCE UNITS LAB 2161-8(LOINC) Creat Ur-mCnc 139.6 20.0-300.0 m g/dL LAB 43833-4(LOINC ) Microalbumin Ur-mCnc 49.4 mg/L LAB 9318-7(LOINC) [...] 3(1), 1-150. Performed By: #### UACR #### [facility] CLIA [id number] [address] [place] [address] [place] XR CHEST 2 VIEWS Observed: 10/07/2024 3:06 PM Status: F Source: [facility] Interpreted By: Miladis Rey, STUDY: XR CHEST 2 VIEWS; 10/07/2024 3:16 pm INDICATION: Signs/Symptoms:postop. ,I71.21 Aneurysm of the ascending aorta, without rupture ([facility]) COMPARISON: 08/21/2024 ACCESSION NUMBER(S): [id number] ORDERING CLINICIAN: TANIA CEDILLO FINDINGS: Median sternotomy wires present CARDIOMEDIASTINAL SILHOUETTE: Cardiomediastinal silhouette is normal in size and configuration. LUNGS: The lungs are hyperinflated. There is bilateral small pleural effusions. Associated atelectasis. ABDOMEN: No remarkable upper abdominal findings. BONES: No acute osseous changes. IMPRESSION: 1. Bilateral small pleural effusions with atelectatic changes MACRO: None Signed by: Ayo Rey 10/08/2024 6:25 PM Dictation workstation: [id number] CT ANGIO CHEST W AND WO IV CONTRAST Observed: 09/30/2024 1:09 PM Status: F Source: [facility] Order Comment: GATED CTA BEHZAD ST PLEASE Interpreted By: Brenda Currie, STUDY: CT ANGIO CHEST W AND WO IV CONTRAST; 09/30/2024 1:25 pm INDICATION: Signs/Symptoms:s/p asc aorta replacement. ,I71.21 Aneurysm of the ascending aorta, without rupture ([facility]) COMPARISON: None. ACCESSION NUMBER(S): [id number] ORDERING CLINICIAN: TANIA CEDILLO TECHNIQUE: Using multi-detector [...] bilateral renal arteries are normal in caliber. VESSEL MASTER MEASUREMENTS OF THE AORTA: Annulus x cm [...] Hung Currie 09/30/2024 3:06 PM Dictation workstation: [id number] CNOV Observed: 08/28/2024 1:20 PM Status: COMPLETED Source: [facility] Office Visit (INTMWS) BOB JACOB ([id number]) 1950 F Date Time Provider Department 08/28/24 1:20 PM SAVANNA MELVIN INTMWS During your visit today, we recorded the following information about you: Temperature Pulse Blood pressure Weight 98.3 degrees 66/minute 122/68 79.4 kg Savanna Melvin, GAUGE AND WEIGH MACHINE ADJUSTER.LENS SHAPER GRINDER 08/28/2024 2:06 PM Signed CC: Patient presents with: Hospital F/U: [facility] Dr. Cedillo. Has been having some [...] and Aldactone were discontinued. [facility] with the cardiac nurse yesterday. She is scheduled for follow-up with the salary manager on 09/03 and the surgeon on 10/07. [...] Mite, Lisinopril, and Norvasc [Amlodipine Besylate] MEDICATIONS bn-uol-rmzej-calcium carb-K1 (WOMEN'S 50 PLUS MULTIVITAMIN) 400 mcg-500 [...] 1 tablet by mouth once daily. Per [facility] VITAMIN A ORAL Take 400 [...] more intense. Recommend discussing further with her salary manager at appointment on 09/03 3. Dyspnea on [...] Reason for Visit: Hospital F/U [57] Cmt: [facility] Dr. Cedillo. Has been having some [...] by mouth once daily.Disp: Rfl: COMPRESSION STOCKINGS [[id number]] Order #: [id number] Prescriptions as of 08/28/2024 - amiodarone (PACERONE) [...] 1 tablet by mouth once daily. - gn-ilg-zqnav-calcium carb-K1 (WOMEN'S 50 PLUS MULTIVITAMIN) 400 mcg-500 [...] stockings you were given today at any [employer] company. Avoid sitting or standing for long [...] for Encounter Date Provider Department Center 08/28/2024 [id number] MELVIN [facility] Tamra Encounter Status:Closed by SAVANNA MELVIN on 08/28/24 PROGRESS Observed: 08/28/2024 1:01 PM Status: [facility]TED [facility] [id number] Author: SAVANNA MELVIN APRN.[employer] Service: ? Author Type: Nurse Practitioner Type: Progress Notes Filed: 08/28/2024 14:06 Note Text: CC: Patient presents with: Hospital F/U: [facility] Dr. Cedillo. Has been having some [...] She is scheduled for follow-up with the salary manager on 09/03 and the surgeon on 10/07. [...] Mite, Lisinopril, and Norvasc [Amlodipine Besylate] MEDICATIONS [id number]-calcium carb-K1 (WOMEN'S 50 PLUS MULTIVITAMIN) 400 mcg-500 [...] more intense. Recommend discussing further with her salary manager at appointment on 09/03 3. Dyspnea on [...] Patient agreeable to treatment plan. Savanna Melvin APRN.LENS [employer]ER COMPLETE BLOOD COUNT PANEL Collected: 08/22/2024 5:04 AM Status: F Source: [facility] TYPE CODE TESTS RESULT OUT OF RANGE REFERENCE UNITS LAB 6690-2(LOINC) Leukocytes 15.8 High 4.4-11.3 x10*3/ uL LAB 20785-7(LOINC) Erythrocytes.nuc l eated/100 leukocytes 0.0 0.0-0.0 /100 [...] 539 High 150-450 x10*3/uL Performed By: #### 89639-9 # ### STEFANO TROY ([id number]) [facility] [place] [address] [place] [address] MAGNESIUM Collected: 5:04 AM Status: F Source: [facility] TYPE CODE TESTS RESULT OUT OF RANGE REFERENCE UNITS LAB 88317-4(LOINC) Magnesium 1.90 1.60-2.40 mg/dL Performed By: #### 91094-1 # ### STEFANO TROY ([id number]) [facility] ([facility] [address] [place] [address] RENAL FUNCTION 2000 PANEL Collected: 5:04 AM Status: F Source: [facility] TYPE CODE TESTS RESULT OUT OF RANGE REFERENCE UNITS LAB 2345-7(LOINC) Glucose 109 High 74-99 mg/dL LAB 2951-2(LOINC) Sodium 140 136-145 mmol/L LAB 2823-3(LOINC) Potassium 4.3 3.5-5.3 mmol/L LAB 2075-0(LOINC) Chloride 108 High 98-107 mmol/L LAB 2028-9(LOINC) Carbon dioxide 24 21-32 mmol/L LAB 84014-8(LOINC) Anion gap 12 10-20 mmol/L LAB 3094-0(LOINC) Urea nitrogen 32 High 6-23 mg/d L LAB 2160-0(LOINC) Creatinine 0.74 0.50-1.05 mg/dL LAB 88672-5(LOINC) Glomerular filtration rate/1.73 sq M.predicted 85 >60 mL/min/1 .73m*2 Result Comment: Calculations of estimated GFR are performed using the 2020 CKD- EPI Study Refit equation without the race variable for the IDMS-Traceable creatinine methods. https://jasn.asnjournals.org/content/early//ASN.0033269390 LAB 92019-6(LOINC) Calcium 7.9 Low 8.6-10.3 mg/dL LAB 2777-1(LOINC) Phosphate 3.6 2.5-4.9 mg/dL Result Comment: The performa nce characteristics of phosphorus testing in heparinized plasma have been validated by the individual laboratory site where testing is performed. Testing on heparinized plasma is not approved by the FDA; however, such approval is not necessary. LAB 14726-6(LOINC) Albumin 2.7 Low 3.4-5.0 g/dL Performed By: #### 64657-9 # ### STEFANO SYDNI ([id number]) [facility] ([facility] [address] [place] [address] URINALYSIS COMPLETE W REFLEX CULTURE PANEL Collected: 08/21/2024 12:28 PM Status: F Source: [facility] TYPE CODE TESTS RESULT OUT OF RANGE REFERENCE UNITS LAB 5778-6(LOINC) Color Yellow Light- Yellow , Yellow, Dark-Yellow LAB 5767-9(LOINC) Appearance Clear Clear LAB 07917-5(LOINC) Specific gravity 1.019 1.005-1. 035 LAB 94389-2(LOINC) pH 5.0 5.0, 5.5, 6.0, 6.5, 7.0, 7.5, 8.0 LAB 11964-7(LOINC) Protein NEGATIVE NEGAT ELLEN, 10 (TRACE), 20 (TRACE) mg/dL LAB 60509-0(LOINC) Glucose Normal Normal mg/dL LAB 94434-5(LOINC) Erythrocytes NEGATIVE NEGATIVE LAB 90632-7(LOINC) Ketones NEGATIVE NEGATIVE mg/dL LAB 53370-2(LOINC) Bilirubin NEGATIVE NEGATIVE LAB 95561-2(LOINC) Urobilinogen Normal Normal mg/d L LAB 16831-4(LOINC) Nitrite NEGATIVE NEGATIVE LAB 12161-1(LOINC) Leukocyte esterase NEGATIVE NEGATIVE Performed By: #### 63604-1 # ### STEFANO TROY ([id number]) [facility] ([facility] [place] [address] XR CHEST 1 VIEW Observed: 08/21/2024 11:34 AM Status: F Source: [facility] Interpreted By: Miller Hussein, STUDY: XR CHEST 1 VIEW; 08/21/2024 12:15 pm INDICATION: Signs/Symptoms:Increasing leukocytosis. COMPARISON: Most recent prior is from 08/19/2024. ACCESSION NUMBER(S): [id number] ORDERING CLINICIAN: TAMI NELSON TECHNIQUE: Single AP [...] Rob Hussein 08/21/2024 12:29 PM Dictation workstation: [id number] COMPLETE BLOOD COUNT PANEL Collected: 08/21/2024 10:0 8 AM Status: F Source: [facility] TYPE CODE TESTS RESULT OUT OF RANGE REFERENCE UNITS LAB 6690-2(LOINC) Leukocytes 17.1 High 4.4-11.3 x10*3/ uL LAB 61904-2(LOINC) Erythrocytes.nuc l eated/100 leukocytes 0.0 0.0-0.0 /100 [...] 614 High 150-450 x10*3/uL Performed By: #### 99381-8 # ### STEFANO TROY ([id number]) [facility] ([facility] [address] [place] [address] GLUCOSE Collected: 7:37 AM Status: F Source: [facility] TYPE CODE TESTS RESULT OUT OF RANGE REFERENCE UNITS LAB 2341-6(LOINC) Glucose 118 High 74-99 mg/dL Performed By: #### 2341-6 ## ## STEFANO TROY ([id number]) [facility] ([facility] [address] [place] [address] RENAL FUNCTION 2000 PANEL Collected: 5:14 AM Status: F Source: [facility] TYPE CODE TESTS RESULT OUT OF RANGE REFERENCE UNITS LAB 2345-7(LOINC) Glucose 114 High 74-99 mg/dL LAB 2951-2(LOINC) Sodium 138 136-145 mmol/L LAB 2823-3(LOINC) Potassium 3.7 3.5-5.3 mmol/L LAB 2075-0(LOINC) Chloride 107 98-107 mmol/L LAB 8-9(LOINC) Carbon dioxide 24 21-32 mmol/L LAB 25815-3(LOINC) Anion gap 11 10-20 mmol/L LAB 3094-0(LOINC) Urea nitrogen 34 High 6-23 mg/d L LAB 2160-0(LOINC) Creatinine 0.79 0.50-1.05 mg/dL LAB 32688-5(LOINC) Glomerular filtration rate/1.73 sq M.predicted 79 >60 mL/min/1 .73m*2 Result Comment: Calculations of estimated GFR are performed using the 2020 CKD- EPI Study Refit equation without the race variable for the IDMS-Traceable creatinine methods. https://jasn.asnjournals.org/content/early/ASN.1196539991 LAB 84751-9(LOINC) Calcium 7.7 Low 8.6-10.3 mg/dL LAB 2777-1(LOINC) Phosphate 3.5 2.5-4.9 mg/dL Result Comment: The performa nce characteristics of phosphorus testing in heparinized plasma have been validated by the individual laboratory site where testing is performed. Testing on heparinized plasma is not approved by the FDA; however, such approval is not necessary. LAB 44568-7(LOINC) Albumin 2.7 Low 3.4-5.0 g/dL Performed By: #### 72389-1 # ### STEFANO TROY ([id number]) [facility] [address] [place] [address] MAGNESIUM Collected: 4 5:14 AM Status: F Source: [facility] TYPE CODE TESTS RESULT OUT OF RANGE REFERENCE UNITS LAB 37863-1(LOINC) Magnesium 2.20 1.60-2.40 mg/dL Performed By: #### 94075-7 # ### STEFANO TROY ([id number]) [facility] ([facility] [address] [place] [address] GLUCOSE Collected: 4 3:54 PM Status: F Source: [facility] TYPE CODE TESTS RESULT OUT OF RANGE REFERENCE UNITS LAB 2341-6(LOINC) Glucose 144 High 74-99 mg/dL Performed By: #### 2341-6 ## ## STEFANO TROY ([id number]) [facility] ([facility] [address] [place] [address] GLUCOSE Collected: 11:43 AM Status: F Source: [facility] TYPE CODE TESTS RESULT OUT OF RANGE REFERENCE UNITS LAB 2341-6(LOINC) Glucose 114 High 74-99 mg/dL Performed By: #### 2341-6 ## ## STEFANO TROY ([id number]) [facility] ([facility] [address] [place] [address] GLUCOSE Collected: 4 8:05 AM Status: F Source: [facility] TYPE CODE TESTS RESULT OUT OF RANGE REFERENCE UNITS LAB 2341-6(LOINC) Glucose 140 High 74-99 mg/dL Performed By: #### 2341-6 ## ## STEFANO TROY ([id number]) [facility] ([facility] [address] [place], [place] [id number] RENAL FUNCTION 2000 PANEL Collected: 6:18 AM Status: F Source: [facility] TYPE CODE TESTS RESULT OUT OF RANGE REFERENCE UNITS LAB 2345-7(LOINC) Glucose 142 High 74-99 mg/dL LAB 2951-2(LOINC) Sodium 137 136-145 mmol/L LAB 2823-3(LOINC) Potassium 4.6 3.5-5.3 mmol/L LAB 2075-0(LOINC) Chloride 106 98-107 mmol/L LAB 2027-9(LOINC) Carbon dioxide 23 21-32 mmol/L LAB 69070-9(LOINC) Anion gap 13 10-20 mmol/L LAB 3094-0(LOINC) Urea nitrogen 36 High 6-23 mg/d L LAB 2160-0(LOINC) Creatinine 0.97 0.50-1.05 mg/dL LAB 63987-7(LOINC) Glomerular filtration rate/1.73 sq M.predicted 61 >60 mL/min/1 .73m*2 Result Comment: Calculations of estimated GFR are performed using the 2020 CKD- EPI Study Refit equation without the race variable for the IDMS-Traceable creatinine methods. https://jasn.asnjournals.org/content//ASN.1881237637 LAB 16121-5(LOINC) Calcium 8.3 Low 8.6-10.3 mg/dL LAB 2777-1(LOINC) Phosphate 3.6 2.5-4.9 mg/dL Result Comment: The performa nce characteristics of phosphorus testing in heparinized plasma have been validated by the individual laboratory site where testing is performed. Testing on heparinized plasma is not approved by the FDA; however, such approval is not necessary. LAB 36522-5(LOINC) Albumin 3.0 Low 3.4-5.0 g/dL Performed By: #### 11461-4 # ### STEFANO TROY ([id number]) [facility] ([facility] [address] [place] [address] MAGNESIUM Collected: 6:18 AM Status: F Source: [facility] Order Comment: 2 hours after infusion complete. TYPE CODE TESTS RESULT OUT OF RANGE REFERENCE UNITS LAB 49950-9(LOINC) Magnesium 2.16 1.60-2.40 mg/dL Performed By: #### 39117-2 # ### STEFANO TROY ([id number]) [facility] ([facility] [address] [place] [address] COMPLETE BLOOD COUNT PANEL Collected: 08/20/2024 6:18 AM Status: F Source: [facility] TYPE CODE TESTS RESULT OUT OF RANGE REFERENCE UNITS LAB 6690-2(LOINC) Leukocytes 15.1 High 4.4-11.3 x10*3/ uL LAB 88354-3(LOINC) Erythrocytes.nuc l eated/100 leukocytes 0.0 0.0-0.0 /100 [...] 542 High 150-450 x10*3/uL Performed By: #### 85692-4 # ### STEFANO TROY ([id number]) [facility] ([facility] [address] [place] [address] GLUCOSE Collected: 4:38 PM Status: F Source: [facility] TYPE CODE TESTS RESULT OUT OF RANGE REFERENCE UNITS LAB 2341-6(LOINC) Glucose 121 High 74-99 mg/dL Performed By: #### 2341-6 ## ## STEFANO TROY ([id number]) [facility] ([facility] [address] [place] [address] XR CHEST 1 VIEW Observed: 08/19/2024 12:02 PM Status: F Source: [facility] Interpreted By: Rudi Lambert, STUDY: XR CHEST 1 VIEW; 08/19/2024 12:15 pm INDICATION: Signs/Symptoms:s/p thoracentesis. COMPARISON: 08/18/2024 ACCESSION NUMBER(S): [id number] ORDERING CLINICIAN: EH COLON FINDINGS: Artifact from overlying monitoring leads noted. Hazy bibasilar opacities with blunting of the left costophrenic angle again seen. No definite pneumothorax. The cardiomediastinal silhouette remains enlarged with overlying sternotomy wires and atrial closure device again seen. IMPRESSION: Persistent bibasilar infiltrates and/or pleural effusions. No definite pneumothorax. MACRO: None. Signed by: Fernanda Lambert 08/19/2024 12:17 PM Dictation workstation: [id number] GLUCOSE Collected: 11:36 AM Status: F Source: [facility] TYPE CODE TESTS RESULT OUT OF RANGE REFERENCE UNITS LAB 2341-6(LOINC) Glucose 137 High 74-99 mg/dL Performed By: #### 2341-6 ## ## STEFANO TROY ([id number]) [facility] ([facility] [address] [place] [id number] GLUCOSE Collected: 7:54 AM Status: F Source: [facility] TYPE CODE TESTS RESULT OUT OF RANGE REFERENCE UNITS LAB 2341-6(LOINC) Glucose 128 High 74-99 mg/dL Performed By: #### 2341-6 ## ## STEFANO TROY ([id number]) [facility] ([facility] [address] [place] [id number] ECG 12-LEAD Observed: 08/19/2024 6:06 AM Status: F Source: [facility] Ventricular Rate 109 Atrial Rate 117 QRS Duration 144 Q-T Interval 334 QTC Calculation(Bazett) 449 R Verbank 113 T Verbank -38 QRS Count 18 Q Onset 213 [...] Collected: 08/19/2024 5:08 AM Status: F Source: [facility] TYPE CODE TESTS RESULT OUT OF RANGE REFERENCE UNITS LAB 6690-2(LOINC) Leukocytes 11.8 High 4.4-11.3 x10*3/ uL LAB 03068-3(LOINC) Erythrocytes.nuc l eated/100 leukocytes 0.2 High 0.0-0.0 [...] Platelets 433 150-450 x10*3/uL Performed By: #### 41849-0 # ### STEFANO TROY ([id number]) [facility] ([facility] [address] [place] [address] MAGNESIUM Collected: 5:08 AM Status: F Source: [facility] TYPE CODE TESTS RESULT OUT OF RANGE REFERENCE UNITS LAB 32399-7(LOINC) Magnesium 1.91 1.60-2.40 mg/dL Performed By: #### 74759-6 # ### STEFANO TROY ([id number]) [facility] ([facility] [address] [place] [address] RENAL FUNCTION 2000 PANEL Collected: 5:08 AM Status: F Source: [facility] TYPE CODE TESTS RESULT OUT OF RANGE REFERENCE UNITS LAB 2345-7(LOINC) Glucose 104 High 74-99 mg/dL LAB 2951-2(LOINC) Sodium 139 136-145 mmol/L LAB 2823-3(LOINC) Potassium 4.0 3.5-5.3 mmol/L LAB 2075-0(LOINC) Chloride 107 98-107 mmol/L LAB 2027-9(LOINC) Carbon dioxide 24 21-32 mmol/L LAB 47584-3(LOINC) Anion gap 12 10-20 mmol/L LAB 3094-0(LOINC) Urea nitrogen 33 High 6-23 mg/d L LAB 2160-0(LOINC) Creatinine 0.81 0.50-1.05 mg/dL LAB 91132-1(LOINC) Glomerular filtration rate/1.73 sq M.predicted 76 >60 mL/min/1 .73m*2 Result Comment: Calculations of estimated GFR are performed using the 2020 CKD- EPI Study Refit equation without the race variable for the IDMS-Traceable creatinine methods. https://jasn.asnjournals.org/content//ASN.3731847031 LAB 44958-7(LOINC) Calcium 7.6 Low 8.6-10.3 mg/dL LAB 2777-1(LOINC) Phosphate 4.0 2.5-4.9 mg/dL Result Comment: The performa nce characteristics of phosphorus testing in heparinized plasma have been validated by the individual laboratory site where testing is performed. Testing on heparinized plasma is not approved by the FDA; however, such approval is not necessary. LAB 46132-1(LOINC) Albumin 2.7 Low 3.4-5.0 g/dL Performed By: #### 23114-8 # ### STEFANO TROY ([id number]) [facility] ([facility] [address] [place] [address] GLUCOSE Collected: 4 12:23 AM Status: F Source: [facility] TYPE CODE TESTS RESULT OUT OF RANGE REFERENCE UNITS LAB 2341-6(LOINC) Glucose 122 High 74-99 mg/dL Performed By: #### 2341-6 ## ## STEFANO LI (55269) [facility] ([facility] [address] [place] [address] GLUCOSE Collected: 4 7:38 PM Status: F Source: [facility] TYPE CODE TESTS RESULT OUT OF RANGE REFERENCE UNITS LAB 2341-6(LOINC) Glucose 138 High 74-99 mg/dL Performed By: #### 2341-6 ## ## STEFANO LI ([id number]) [facility] ([facility] [address] [place] [address] GLUCOSE Collected: 4 4:02 PM Status: F Source: [facility] TYPE CODE TESTS RESULT OUT OF RANGE REFERENCE UNITS LAB 2341-6(LOINC) Glucose 137 High 74-99 mg/dL Performed By: #### 2341-6 ## ## STEFANO LI ([id number]) [facility] ([facility] [address] [place] [address] XR CHEST 1 VIEW Observed: 08/18/2024 3:07 PM Status: F Source: [facility] Interpreted By: Miller Hussein, STUDY: XR CHEST 1 VIEW; 08/18/2024 3:17 pm INDICATION: Signs/Symptoms:post thora. COMPARISON: Chest x-ray from 08/18/2024 at 11:52 a.m. ACCESSION NUMBER(S): [id number] ORDERING CLINICIAN: CATHLEEN TAVARES TECHNIQUE: Single AP [...] Stable cardiomegaly. MACRO: None Signed by: Rob Hussein 08/18/2024 3:37 PM Dictation workstation: [id number] US THORACENTESIS Observed: 08/18/2024 12:18 PM Status: F Source: [facility] Interpreted By: Skip Tavares, STUDY: US [id number]/10/81790:07 pm INDICATION: Signs/Symptoms:worsening left pleural effusion COMPARISON: Chest Xray 08/18/2024 ACCESSION NUMBER(S): [id number] ORDERING CLINICIAN: EH COLON TECHNIQUE: INTERVENTIONALIST(S): Cathleen [...] a left-sided thoracentesis was performed. A 5 Kiswahili One-Step Valved thoracentesis needle/catheter was then placed [...] the entire procedure. Performed and dictated at [facility]. Signed by: Cathleen Tavares 08/18/2024 4:08 PM Dictation workstation: [id number] GLUCOSE Collected: 11:52 AM Status: F Source: [facility] TYPE CODE TESTS RESULT OUT OF RANGE REFERENCE UNITS LAB 2341-6([facility]) Glucose 121 High 74-99 mg/dL Performed By: #### 2341-6 ## ## STEFANO SYDNI ([id number]) [facility] ([facility] [address] [place] [address] XR CHEST 2 VIEWS Observed: 08/18/2024 11:13 AM Status: F Source: [facility] Interpreted By: Fariha Borges, STUDY: XR CHEST 2 VIEWS; 08/18/2024 11:39 am INDICATION: Signs/Symptoms:follow pleural effusion. COMPARISON: 08/17/2024 ACCESSION NUMBER(S): [id number] ORDERING CLINICIAN: EH COLON FINDINGS: Sternotomy wires [...] not be excluded. MACRO: None Signed by: Elisabet Borges 08/18/2024 11:54 AM Dictation workstation: [id number] GLUCOSE Collected: 8:20 AM Status: F Source: [facility] TYPE CODE TESTS RESULT OUT OF RANGE REFERENCE UNITS LAB 2341-6(LOINC) Glucose 161 High 74-99 mg/dL Performed By: #### 2341-6 ## ## STEFANO TROY ([id number]) [facility] ([facility] [address] [place] [address] GLUCOSE Collected: 6:32 AM Status: F Source: [facility] TYPE CODE TESTS RESULT OUT OF RANGE REFERENCE UNITS LAB 2341-6(LOINC) Glucose 113 High 74-99 mg/dL Performed By: #### 2341-6 ## ## STEFANO TROY ([id number]) [facility] ([facility] [address] [place] [address] COMPLETE BLOOD COUNT PANEL Collected: 08/18/2024 5:29 AM Status: F Source: [facility] TYPE CODE TESTS RESULT OUT OF RANGE REFERENCE UNITS LAB 6690-2(LOINC) Leukocytes 11.5 High 4.4-11.3 x10*3/ uL LAB 43748-9(LOINC) Erythrocytes.nuc l eated/100 leukocytes 0.3 High 0.0-0.0 [...] Platelets 409 150-450 x10*3/uL Performed By: #### 36877-5 # ### STEFANO TROY ([id number]) [facility] ([facility] [address] [place] [address] MAGNESIUM Collected: 5:29 AM Status: F Source: [facility] TYPE CODE TESTS RESULT OUT OF RANGE REFERENCE UNITS LAB 15208-8(LOINC) Magnesium 2.08 1.60-2.40 mg/dL Performed By: #### 87959-3 # ### STEFANO SYDNI (23086) [facility] ([facility] [address] [place] [id number] RENAL FUNCTION 2000 PANEL Collected: 5:29 AM Status: F Source: [facility] TYPE CODE TESTS RESULT OUT OF RANGE REFERENCE UNITS LAB 2345-7(LOINC) Glucose 118 High 74-99 mg/dL LAB 2951-2(LOINC) Sodium 139 136-145 mmol/L LAB 2823-3(LOINC) Potassium 4.2 3.5-5.3 mmol/L LAB 2075-0(LOINC) Chloride 106 98-107 mmol/L LAB 2027-9(LOINC) Carbon dioxide 25 21-32 mmol/L LAB 56437-4(LOINC) Anion gap 12 10-20 mmol/L LAB 3094-0(LOINC) Urea nitrogen 35 High 6-23 mg/d L LAB 2160-0(LOINC) Creatinine 0.79 0.50-1.05 mg/dL LAB 36810-1(LOINC) Glomerular filtration rate/1.73 sq M.predicted 79 >60 mL/min/1 .73m*2 Result Comment: Calculations of estimated GFR are performed using the 2020 CKD- EPI Study Refit equation without the race variable for the IDMS-Traceable creatinine methods. https://jasn.asnjournals.org/content///ASN.3487137452 LAB 25110-4(LOINC) Calcium 7.8 Low 8.6-10.3 mg/dL LAB 2777-1(LOINC) Phosphate 3.6 2.5-4.9 mg/dL Result Comment: The performa nce characteristics of phosphorus testing in heparinized plasma have been validated by the individual laboratory site where testing is performed. Testing on heparinized plasma is not approved by the FDA; however, such approval is not necessary. LAB 47117-8(LOINC) Albumin 3.0 Low 3.4-5.0 g/dL Performed By: #### 80986-6 # ### STEFANO TROY ([id number]) [facility] ([facility] [address] [place] [address] GLUCOSE Collected: 4 8:50 PM Status: F Source: [facility] TYPE CODE TESTS RESULT OUT OF RANGE REFERENCE UNITS LAB 2341-6(LOINC) Glucose 117 High 74-99 mg/dL Performed By: #### 2341-6 ## ## STEFANO TROY (41226) [facility] ([facility] [address] [place] [address] GLUCOSE Collected: 4 4:58 PM Status: F Source: [facility] TYPE CODE TESTS RESULT OUT OF RANGE REFERENCE UNITS LAB 2341-6(LOINC) Glucose 156 High 74-99 mg/dL Performed By: #### 2341-6 ## ## STEFANO TROY ([id number]) [facility] ([facility] [address] [place] [address] GLUCOSE Collected: 4 11:35 AM Status: F Source: [facility] TYPE CODE TESTS RESULT OUT OF RANGE REFERENCE UNITS LAB 2341-6(LOINC) Glucose 122 High 74-99 mg/dL Performed By: #### 2341-6 ## ## STEFANO TROY ([id number]) [facility] ([facility] [address] [place] [address] GLUCOSE Collected: 4 6:22 AM Status: F Source: [facility] TYPE CODE TESTS RESULT OUT OF RANGE REFERENCE UNITS LAB 2341-6(LOINC) Glucose 116 High 74-99 mg/dL Performed By: #### 2341-6 ## ## STEFANO TROY ([id number]) [facility] [place] [place] [address] [place] [id number] XR CHEST 2 VIEWS Observed: 08/17/2024 6:00 AM Status: F Source: [facility] Interpreted By: Rudi Lambert, STUDY: XR CHEST 2 VIEWS; 08/17/2024 10:22 am INDICATION: Signs/Symptoms:pleural effsuions s/p Aortic arch replacment. COMPARISON: 08/14/2024 ACCESSION NUMBER(S): [id number] ORDERING CLINICIAN: EH COLON FINDINGS: Artifact from overlying monitoring leads noted. Interval removal of right jugular central line and bilateral chest tubes. Lhua-uhkhdii-uqba-right lower chest opacities with blunting of the costophrenic angles increased from prior. No definite pneumothorax. The cardiac silhouette is prominent with overlying sternotomy wires and atrial closure device again seen. Degenerative endplate spurring in the thoracic spine. IMPRESSION: Interval removal of support devices. Status post sternotomy. Wano-xexouze-xbez-right basilar infiltrates and/or pleural effusions. MACRO: None. Signed by: Fernanda Lambert 08/17/2024 11:22 AM Dictation workstation: [id number] COMPLETE BLOOD COUNT PANEL Collected: 08/17/2024 5:23 AM Status: F Source: [facility] TYPE CODE TESTS RESULT OUT OF RANGE REFERENCE UNITS LAB 6690-2(LOINC) Leukocytes 11.9 High 4.4-11.3 x10*3/ uL LAB 63824-3(LOINC) Erythrocytes.nuc l eated/100 leukocytes 0.4 High 0.0-0.0 [...] Platelets 342 150-450 x10*3/uL Performed By: #### 17067-9 # ### STEFANO TROY ([id number]) [facility] [place] [place] [address] [place] [address] MAGNESIUM Collected: 5:23 AM Status: F Source: [facility] TYPE CODE TESTS RESULT OUT OF RANGE REFERENCE UNITS LAB 41793-3(LOINC) Magnesium 2.22 1.60-2.40 mg/dL Performed By: #### 46194-9 # ### STEFANO TROY ([id number]) [facility] [address] [place] [address] RENAL FUNCTION 2000 PANEL Collected: 5:23 AM Status: F Source: [facility] TYPE CODE TESTS RESULT OUT OF RANGE REFERENCE UNITS LAB 2345-7(LOINC) Glucose 119 High 74-99 mg/dL LAB 2951-2(LOINC) Sodium 135 Low 136-145 mmol/L LAB 2823-3(LOINC) Potassium 3.9 3.5-5.3 mmol/L LAB 2075-0(LOINC) Chloride 103 98-107 mmol/L LAB 2027-9(LOINC) Carbon dioxide 23 21-32 mmol/L LAB 07958-4(LOINC) Anion gap 13 10-20 mmol/L LAB 3094-0(LOINC) Urea nitrogen 38 High 6-23 mg/d L LAB 2160-0(LOINC) Creatinine 0.83 0.50-1.05 mg/dL LAB 75412-4(LOINC) Glomerular filtration rate/1.73 sq M.predicted 74 >60 mL/min/1 .73m*2 Result Comment: Calculations of estimated GFR are performed using the 2020 CKD- EPI Study Refit equation without the race variable for the IDMS-Traceable creatinine methods. https://jasn.asnjournals.org/content///ASN.8749498920 LAB 17962-5(LOINC) Calcium 7.6 Low 8.6-10.3 mg/dL LAB 2777-1(LOINC) Phosphate 3.0 2.5-4.9 mg/dL Result Comment: The performa nce characteristics of phosphorus testing in heparinized plasma have been validated by the individual laboratory site where testing is performed. Testing on heparinized plasma is not approved by the FDA; however, such approval is not necessary. LAB 38813-9(LOINC) Albumin 3.0 Low 3.4-5.0 g/dL Performed By: #### 29886-9 # ### STEFANO TROY ([id number]) [facility] ([facility] [address] [place] [address] GLUCOSE Collected: 4 8:55 PM Status: F Source: [facility] TYPE CODE TESTS RESULT OUT OF RANGE REFERENCE UNITS LAB 2341-6(LOINC) Glucose 122 High 74-99 mg/dL Performed By: #### 2341-6 ## ## STEFANO TROY ([id number]) [facility] ([facility] [address] [place] [address] GLUCOSE Collected: 4 4:05 PM Status: F Source: [facility] TYPE CODE TESTS RESULT OUT OF RANGE REFERENCE UNITS LAB 2341-6(LOINC) Glucose 130 High 74-99 mg/dL Performed By: #### 2341-6 ## ## STEFANO TROY ([id number]) [facility] ([facility] [address] [place], [place] [id number] GLUCOSE Collected: 4 10:53 AM Status: F Source: [facility] TYPE CODE TESTS RESULT OUT OF RANGE REFERENCE UNITS LAB 2341-6(LOINC) Glucose 126 High 74-99 mg/dL Performed By: #### 2341-6 ## ## STEFANO TROY ([id number]) [facility] ([facility] [address] [place] [id number] GLUCOSE Collected: 4 7:55 AM Status: F Source: [facility] TYPE CODE TESTS RESULT OUT OF RANGE REFERENCE UNITS LAB 2341-6(LOINC) Glucose 122 High 74-99 mg/dL Performed By: #### 2341-6 ## ## STEFANO TROY ([id number]) [facility] ([facility] [address] [place] [address] MAGNESIUM Collected: 4 5:29 AM Status: F Source: [facility] TYPE CODE TESTS RESULT OUT OF RANGE REFERENCE UNITS LAB 98443-0(LOINC) Magnesium 2.34 1.60-2.40 mg/dL Performed By: #### 03036-6 # ### STEFANO TROY ([id number]) [facility] ([facility] [address] [place] [address] RENAL FUNCTION 2000 PANEL Collected: 5:29 AM Status: F Source: [facility] TYPE CODE TESTS RESULT OUT OF RANGE REFERENCE UNITS LAB 2345-7(LOINC) Glucose 119 High 74-99 mg/dL LAB 2951-2(LOINC) Sodium 132 Low 136-145 mmol/L LAB 2823-3(LOINC) Potassium 4.0 3.5-5.3 mmol/L LAB 2075-0(LOINC) Chloride 102 98-107 mmol/L LAB 8-9(LOINC) Carbon dioxide 22 21-32 mmol/L LAB 14343-4(LOINC) Anion gap 12 10-20 mmol/L LAB 3094-0(LOINC) Urea nitrogen 40 High 6-23 mg/d L LAB 2160-0(LOINC) Creatinine 0.81 0.50-1.05 mg/dL LAB 23714-2(LOINC) Glomerular filtration rate/1.73 sq M.predicted 76 >60 mL/min/1 .73m*2 Result Comment: Calculations of estimated GFR are performed using the 2020 CKD- EPI Study Refit equation without the race variable for the IDMS-Traceable creatinine methods. https://jasn.asnjournals.org/content//ASN.1705325728 LAB 56141-3(LOINC) Calcium 7.5 Low 8.6-10.3 mg/dL LAB 2777-1(LOINC) Phosphate 3.4 2.5-4.9 mg/dL Result Comment: The performa nce characteristics of phosphorus testing in heparinized plasma have been validated by the individual laboratory site where testing is performed. Testing on heparinized plasma is not approved by the FDA; however, such approval is not necessary. LAB 56521-1(LOINC) Albumin 3.0 Low 3.4-5.0 g/dL Performed By: #### 61793-4 # ### STEFANO TROY ([id number]) [facility] ([facility] [address] [place] [address] COMPLETE BLOOD COUNT W AUTO DIFFERENTIAL PANEL Collected: 08/16/2024 5:28 AM Status: F Source: [facility] TYPE CODE TESTS RESULT OUT OF RANGE REFERENCE UNITS LAB 6690-2(LOINC) Leukocytes 10.2 4.4-11.3 x10*3/ uL LAB 88289-0(LOINC ) Erythrocytes.nuc leated/100 leukocytes 0.6 High 0.0-0.0 [...] 770-8(LOINC) Neutrophils/100 leukocytes 68.7 40.0-80.0 % LAB 65096-2(LOINC ) Granulocytes.imm ature/100 leukocytes 0.9 0.0-0.9 % [...] of the absolute cell counts (cells/uL). LAB 42480-9(LOINC ) Granulocytes.imm ature 0.09 0.00-0.50 x10*3/uL LAB 731-0(LOINC) Lymphocytes 1.76 0.80-3.00 x10*3 /uL LAB 742-7(LOINC) Monocytes 1.05 High 0.05-0.80 x10*3/u L LAB 711-2(LOINC) Eosinophils 0.27 0.00-0.40 x10*3 /uL LAB 704-7(LOINC) Basophils 0.02 0.00-0.10 x10*3/u L Performed By: #### 61772-0 # ### STEFANO TROY ([id number]) [facility] ([facility] [address] [place] [address] GLUCOSE Collected: 4 7:26 PM Status: F Source: [facility] TYPE CODE TESTS RESULT OUT OF RANGE REFERENCE UNITS LAB 2341-6(LOINC) Glucose 136 High 74-99 mg/dL Performed By: #### 2341-6 ## ## STEFANO TROY ([id number]) [facility] ([facility] [address] [place] [address] GLUCOSE Collected: 4 4:22 PM Status: F Source: [facility] TYPE CODE TESTS RESULT OUT OF RANGE REFERENCE UNITS LAB 2341-6(LOINC) Glucose 133 High 74-99 mg/dL Performed By: #### 2341-6 ## ## STEFANO LI ([id number]) [facility] ([facility] [address] [place] [address] GLUCOSE Collected: 4 10:52 AM Status: F Source: [facility] TYPE CODE TESTS RESULT OUT OF RANGE REFERENCE UNITS LAB 2341-6(LOINC) Glucose 111 High 74-99 mg/dL Performed By: #### 2341-6 ## ## STEFANO LI ([id number]) [facility] ([facility] [address] [place] [address] GLUCOSE Collected: 7:44 AM Status: F Source: [facility] TYPE CODE TESTS RESULT OUT OF RANGE REFERENCE UNITS LAB 2341-6(LOINC) Glucose 108 High 74-99 mg/dL Performed By: #### 2341-6 ## ## STEFANO TROY ([id number]) [facility] ([facility] [address] [place] [id number] COMPLETE BLOOD COUNT W AUTO DIFFERENTIAL PANEL Collected: 08/15/2024 5:26 AM Status: F Source: [facility] TYPE CODE TESTS RESULT OUT OF RANGE REFERENCE UNITS LAB 6690-2(LOINC) Leukocytes 10.3 4.4-11.3 x10*3/ uL LAB 10719-0(LOINC ) Erythrocytes.nuc leated/100 leukocytes 0.6 High 0.0-0.0 [...] 770-8(LOINC) Neutrophils/100 leukocytes 62.3 40.0-80.0 % LAB 94466-1(LOINC ) Granulocytes.imm ature/100 leukocytes 0.5 0.0-0.9 % [...] of the absolute cell counts (cells/uL). LAB 55998-4(LOINC ) Granulocytes.imm ature 0.05 0.00-0.50 x10*3/uL LAB 731-0(LOINC) Lymphocytes 2.48 0.80-3.00 x10*3 /uL LAB 742-7(LOINC) Monocytes 1.10 High 0.05-0.80 x10*3/u L LAB 711-2(LOINC) Eosinophils 0.23 0.00-0.40 x10*3 /uL LAB 704-7(LOINC) Basophils 0.02 0.00-0.10 x10*3/u L Performed By: #### 55333-4 # ### STEFANO TROY ([id number]) [facility] ([facility] [address] [place] [address] MAGNESIUM Collected: 5:26 AM Status: F Source: [facility] TYPE CODE TESTS RESULT OUT OF RANGE REFERENCE UNITS LAB 10912-7(LOINC) Magnesium 2.37 1.60-2.40 mg/dL Performed By: #### 39226-0 # ### STEFANO TROY ([id number]) [facility] ([facility] [address] [place] [address] RENAL FUNCTION 2000 PANEL Collected: 5:26 AM Status: F Source: [facility] TYPE CODE TESTS RESULT OUT OF RANGE REFERENCE UNITS LAB 2345-7(LOINC) Glucose 108 High 74-99 mg/dL LAB 2951-2(LOINC) Sodium 134 Low 136-145 mmol/L LAB 2823-3(LOINC) Potassium 4.4 3.5-5.3 mmol/L LAB 2075-0(LOINC) Chloride 101 98-107 mmol/L LAB 2028-9(LOINC) Carbon dioxide 25 21-32 mmol/L LAB 71574-1(LOINC) Anion gap 12 10-20 mmol/L LAB 3094-0(LOINC) Urea nitrogen 41 High 6-23 mg/d L LAB 2160-0(LOINC) Creatinine 0.86 0.50-1.05 mg/dL LAB 21141-7(LOINC) Glomerular filtration rate/1.73 sq M.predicted 71 >60 mL/min/1 .73m*2 Result Comment: Calculations of estimated GFR are performed using the 2020 CKD- EPI Study Refit equation without the race variable for the IDMS-Traceable creatinine methods. https://jasn.asnjournals.org/content/early//ASN.7408931064 LAB 57086-6(LOINC) Calcium 7.8 Low 8.6-10.3 mg/dL LAB 2777-1(LOINC) Phosphate 3.1 2.5-4.9 mg/dL Result Comment: The performa nce characteristics of phosphorus testing in heparinized plasma have been validated by the individual laboratory site where testing is performed. Testing on heparinized plasma is not approved by the FDA; however, such approval is not necessary. LAB 10453-9(LOINC) Albumin 3.2 Low 3.4-5.0 g/dL Performed By: #### 46736-7 # ### STEFANO TROY ([id number]) [facility] ([facility] [address] [place] [address] GLUCOSE Collected: 8:22 PM Status: F Source: [facility] TYPE CODE TESTS RESULT OUT OF RANGE REFERENCE UNITS LAB 2341-6(LOINC) Glucose 149 High 74-99 mg/dL Performed By: #### 2341-6 ## ## STEFANO TROY ([id number]) [facility] ([facility] [address] [place] [id number] BACTERIA IDENTIFIED Observed: 08/14/2024 5:47 PM Status: F Source: [facility] Test: Respiratory Culture/Sm ear Specimen Source: SPUTUM Specimen Type: Fluid Specimen Date: 08/14/20241746 Result Date: 08/15/2024450 Result Status: Final result Abnormal: Yes Resulting Lab: [facility] [id number] [place] [address] CULTURE Culture not performed. See Gram stain findings. Recollect if clinically indicated. (Abnormal) STAIN Gram stain indicates specimen contains significant salivary contamination. Performed By: #### 82435-2 # ### ZABRINA Villalba ([id number]) [facility] ([facility]) [id number] [place] [address] GLUCOSE Collected: 2:51 PM Status: F Source: [facility] TYPE CODE TESTS RESULT OUT OF RANGE REFERENCE UNITS LAB 2341-6(LOINC) Glucose 111 High 74-99 mg/dL Performed By: #### 2341-6 ## ## STEFANO TROY ([id number]) [facility] ([facility] [address] [place] [address] GAS AND CO AND ELECTROLYTES PANEL Collected: 08/14/2024 2:37 PM Status: F Source: [facility] TYPE CODE TESTS RESULT OUT OF RANGE REFERENCE UNITS LAB 2744-1(LOINC) pH 7.50 High 7.38-7.42 pH LAB 2019-8(LOINC) Carbon dioxide 28 Low 38-42 mm Hg LAB 2703-7(LOINC) Oxygen 95 85-95 mm Hg LAB 2708-6(LOINC) Oxygen saturation 99 94-100 % LAB 2714-4(LOINC) Oxyhemoglobin/ Hemoglobin.tot al 97.1 94.0-98.0 % LAB 54788-1(LOINC) Hematocrit 27.0 Low 36.0-46.0 % LAB 64316-2(LOINC) Sodium 131 Low 136-145 mmol/L LAB 38099-0(LOINC) Potassium 3.9 3.5-5.3 mmol/L LAB 76004-6([facility]) Chloride 102 98-107 mmol/L LAB 36544-5([facility]) Calcium.ionize d 1.14 1.10-1.33 mmol/L LAB 56097-2([facility]) Glucose 121 High 74-99 mg/dL LAB 2518-9([facility]) Lactate 1.4 0.4-2.0 mmol/L LAB 1925-7([facility]) Base excess -0.8 -2.0-3.0 mmol/ L LAB 1960-4([facility] Bicarbonate 21.8 Low 22.0-26.0 mmol /L LAB 71714-3([facility]) Hemoglobin 8.9 Low 12.0-16.0 g/dL LAB 06995-2([facility]) Anion gap 4 11 10-25 mmo/L LAB 8310-5([facility]) Body temperature 37.0 degrees Celsius LAB 3150-0([facility]) Oxygen/Gas.tot al 40 % LAB FLOWA FLOW 40.0 LPM Performed By: #### 32388-4 # ### STEFANO TROY ([id number]) [facility] ([facility] [address] [place] [address] GLUCOSE Collected: 11:17 AM Status: F Source: [facility] TYPE CODE TESTS RESULT OUT OF RANGE REFERENCE UNITS LAB 2341-6([facility]) Glucose 163 High 74-99 mg/dL Performed By: #### 2341-6 ## ## STEFANO TROY ([id number]) [facility] ([facility] [address] [place] [address] GAS AND CO AND ELECTROLYTES PANEL Collected: 08/14/2024 7:42 AM Status: F Source: [facility] TYPE CODE TESTS RESULT OUT OF RANGE REFERENCE UNITS LAB 2744-1([facility]) pH 7.50 High 7.38-7.42 pH LAB 2019-8([facility]) Carbon dioxide 29 Low 38-42 mm Hg LAB 2703-7([facility]) Oxygen 81 Low 85-95 mm Hg LAB 2708-6([facility]) Oxygen saturation 98 94-100 % LAB 2714-4([facility]) Oxyhemoglobin/ Hemoglobin.tot al 95.9 94.0-98.0 % LAB 33309-6(LOINC) Hematocrit 28.0 Low 36.0-46.0 % LAB 46754-1(INC) Sodium 130 Low 136-145 mmol/L LAB 41348-7(LOINC) Potassium 3.6 3.5-5.3 mmol/L LAB 76175-7(INC) Chloride 100 98-107 mmol/L LAB 30851-5(INC) Calcium.ionize d 1.14 1.10-1.33 mmol/L LAB 89162-5([facility]) Glucose 153 High 74-99 mg/dL LAB 2518-9(INC) Lactate 1.4 0.4-2.0 mmol/L LAB 1925-7([facility]) Base excess -0.1 -2.0-3.0 mmol/ L LAB 1960-4([facility]) Bicarbonate 22.6 22.0-26.0 mmol /L LAB 10688-1([facility]) Hemoglobin 9.2 Low 12.0-16.0 g/dL LAB 77992-3([facility]) Anion gap 4 11 10-25 mmo/L LAB 8310-5([facility]) Body temperature 37.0 degrees Celsius LAB 3150-0([facility]) Oxygen/Gas.tot al 50 % LAB FLOWA FLOW 60.0 LPM Performed By: #### 50007-7 # ### STEFANO TROY ([id number]) [facility] ([facility] [address] [place] [address] GLUCOSE Collected: 7:32 AM Status: F Source: [facility] TYPE CODE TESTS RESULT OUT OF RANGE REFERENCE UNITS LAB 2341-6([facility]) Glucose 142 High 74-99 mg/dL Performed By: #### 2341-6 ## ## STEFANO TROY ([id number]) [facility] ([facility] [address] [place] [address] XR CHEST 1 VIEW Observed: 08/14/2024 7:06 AM Status: F Source: [facility] Interpreted By: Sharon Munguia, STUDY: XR CHEST 1 VIEW; 08/14/2024 7:36 am INDICATION: Signs/Symptoms: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 COMPARISON: X-ray chest 10/14/2023 ACCESSION NUMBER(S): [id number] ORDERING CLINICIAN: EH COLON FINDINGS: AP radiograph [...] Lenard Munguia 08/14/2024 8:07 AM Dictation workstation: [id number] ECG 12-LEAD Observed: 08/14/2024 5:29 AM Status: F Source: [facility] Ventricular Rate 92 Atrial Rate 92 P-R Interval 168 QRS Duration 134 Q-T Interval 430 QTC Calculation(Bazett) 531 P Verbank 40 R Verbank 136 T Verbank 47 QRS Count 15 Q Onset 214 P Onset 130 P Offset 179 T Offset 429 QTC Fredericia 495 Diagnosis Normal sinus rhythm Right axis deviation Nonspecific intraventricular block Cannot rule out Anteroseptal infarct , age undetermined ST elevation in Inferior leads ACUTE NV Abnormal ECG When compared with ECG of 13-AUG-2024 08:21, (unconfirmed) Sinus rhythm has replaced Junctional rhythm QRS axis Shifted right Nonspecific T wave abnormality now evident in Anterior leads Confirmed by Kevin Kenyon ([id number]) on 08/19/2024 7:28:14 PM COMPLETE BLOOD COUNT W AUTO DIFFERENTIAL PANEL Collected: 08/14/2024 5:10 AM Status: F Source: [facility] TYPE CODE TESTS RESULT OUT OF RANGE REFERENCE UNITS LAB 6690-2(LOINC) Leukocytes 11.9 High 4.4-11.3 x10*3/ uL LAB 42804-4(LOINC ) Erythrocytes.nuc leated/100 leukocytes 0.3 High 0.0-0.0 [...] 770-8(LOINC) Neutrophils/100 leukocytes 73.4 40.0-80.0 % LAB 57446-5(LOINC ) Granulocytes.imm ature/100 leukocytes 0.6 0.0-0.9 % [...] of the absolute cell counts (cells/uL). LAB 82920-7(LOINC ) Granulocytes.imm ature 0.07 0.00-0.50 x10*3/uL LAB 731-0(LOINC) Lymphocytes 1.85 0.80-3.00 x10*3 /uL LAB 742-7(LOINC) Monocytes 1.13 High 0.05-0.80 x10*3/u L LAB 711-2(LOINC) Eosinophils 0.11 0.00-0.40 x10*3 /uL LAB 704-7(LOINC) Basophils 0.01 0.00-0.10 x10*3/u L Performed By: #### 51890-2 # ### STEFANO TROY ([id number]) [facility] ([facility] [address] [place] [address] RENAL FUNCTION 2000 PANEL Collected: 5:10 AM Status: F Source: [facility] TYPE CODE TESTS RESULT OUT OF RANGE REFERENCE UNITS LAB 2345-7(LOINC) Glucose 138 High 74-99 mg/dL LAB 2951-2(LOINC) Sodium 130 Low 136-145 mmol/L LAB 2823-3(LOINC) Potassium 3.6 3.5-5.3 mmol/L LAB 2075-0(LOINC) Chloride 100 98-107 mmol/L LAB 2028-9(LOINC) Carbon dioxide 22 21-32 mmol/L LAB 49254-9(LOINC) Anion gap 12 10-20 mmol/L LAB 3094-0(LOINC) Urea nitrogen 39 High 6-23 mg/d L LAB 2160-0(LOINC) Creatinine 0.79 0.50-1.05 mg/dL LAB 03177-1(LOINC) Glomerular filtration rate/1.73 sq M.predicted 79 >60 mL/min/1 .73m*2 Result Comment: Calculations of estimated GFR are performed using the 2020 CKD- EPI Study Refit equation without the race variable for the IDMS-Traceable creatinine methods. https://jasn.asnjournals.org/content///ASN.5211097025 LAB 31668-8(LOINC) Calcium 7.6 Low 8.6-10.3 mg/dL LAB 2777-1(LOINC) Phosphate 2.9 2.5-4.9 mg/dL Result Comment: The performa nce characteristics of phosphorus testing in heparinized plasma have been validated by the individual laboratory site where testing is performed. Testing on heparinized plasma is not approved by the FDA; however, such approval is not necessary. LAB 26948-9(LOINC) Albumin 3.1 Low 3.4-5.0 g/dL Performed By: #### 89742-3 # ### STEFANO TROY ([id number]) [facility] ([facility] [address] [place] [id number] MAGNESIUM Collected: 4 5:10 AM Status: F Source: [facility] TYPE CODE TESTS RESULT OUT OF RANGE REFERENCE UNITS LAB 86982-9(LOINC) Magnesium 2.22 1.60-2.40 mg/dL Performed By: #### 37497-7 # ### STEFANO TROY ([id number]) [facility] ([facility]) [address] [place], [place] [id number] GLUCOSE Collected: 4 7:56 PM Status: F Source: [facility] TYPE CODE TESTS RESULT OUT OF RANGE REFERENCE UNITS LAB 2341-6(LOINC) Glucose 150 High 74-99 mg/dL Performed By: #### 2341-6 ## ## STEFANO TROY ([id number]) [facility] ([facility]) [address] [place], [place] [id number] GLUCOSE Collected: 4 4:43 PM Status: F Source: [facility] TYPE CODE TESTS RESULT OUT OF RANGE REFERENCE UNITS LAB 2341-6(LOINC) Glucose 142 High 74-99 mg/dL Performed By: #### 2341-6 ## ## STEFANO TROY ([id number]) [facility] ([facility] [address] [place] [address] GLUCOSE Collected: 4 11:37 AM Status: F Source: [facility] TYPE CODE TESTS RESULT OUT OF RANGE REFERENCE UNITS LAB 2341-6(LOINC) Glucose 127 High 74-99 mg/dL Performed By: #### 2341-6 ## ## STEFANO TROY ([id number]) [facility] ([facility]) [address] [place], [place] [id number] GAS AND CO AND ELECTROLYTES PANEL Collected: 08/13/2024 10:21 AM Status: F Source: [facility] TYPE CODE TESTS RESULT OUT OF RANGE REFERENCE UNITS LAB 2744-1(LOINC) pH 7.51 High 7.38-7.42 pH LAB 2019-8(LOINC) Carbon dioxide 25 Low 38-42 mm Hg LAB 2703-7(LOINC) Oxygen 72 Low 85-95 mm Hg LAB 2708-6(LOINC) Oxygen saturation 97 94-100 % LAB 2714-4(LOINC) Oxyhemoglobin/ Hemoglobin.tot al 95.3 94.0-98.0 % LAB 16267-3(LOINC) Hematocrit 29.0 Low 36.0-46.0 % LAB 39147-0(LOINC) Sodium 131 Low 136-145 mmol/L LAB 32558-8(LOINC) Potassium 3.7 3.5-5.3 mmol/L LAB 53412-2(INC) Chloride 100 98-107 mmol/L LAB 77001-3([facility]) Calcium.ionize d 1.14 1.10-1.33 mmol/L LAB 46492-0(LOINC) Glucose 148 High 74-99 mg/dL LAB 2518-9(INC) Lactate 2.0 0.4-2.0 mmol/L LAB 1925-7(LOINC) Base excess -2.2 Low -2.0-3.0 mmol/ L LAB 1960-4(LOINC) Bicarbonate 19.9 Low 22.0-26.0 mmol /L LAB 54905-4(INC) Hemoglobin 9.7 Low 12.0-16.0 g/dL LAB 31806-7(LOINC) Anion gap 4 15 10-25 mmo/L LAB 8310-5(LOINC) Body temperature 37.0 degrees Celsius LAB 3150-0([facility]) Oxygen/Gas.tot al 65 % Performed By: #### 86168-3 # ### STEFANO SYDNI ([id number]) [facility] [place] [address] [place] [address] ECG 12-LEAD Observed: 08/13/2024 8:21 AM Status: F Source: [facility] Ventricular Rate 104 Atrial Rate 104 P-R Interval 130 QRS Duration 146 Q-T Interval 410 QTC Calculation(Bazett) 539 P Verbank 270 R Verbank 96 T Verbank -2 QRS Count 17 Q Onset 211 P Onset 146 P Offset 206 T Offset 416 QTC Fredericia 492 Diagnosis Unusual P axis and short VA, probable junctional tachycardia Rightward axis Nonspecific intraventricular block Abnormal ECG When compared with ECG of 13-AUG-2024 06:22, (unconfirmed) Junctional rhythm has replaced Sinus rhythm QRS axis Shifted left Criteria for Lateral infarct are no longer Present Criteria for Inferior infarct are no longer Present QT has lengthened Confirmed by Cassius Mei ([id number]) on 08/17/2024 11:26:11 AM GLUCOSE Collected: 7:40 AM Status: F Source: [facility] TYPE CODE TESTS RESULT OUT OF RANGE REFERENCE UNITS LAB 2341-6(LOINC) Glucose 179 High 74-99 mg/dL Performed By: #### 2341-6 ## ## STEFANO TROY ([id number]) [facility] [place] [place] [address] [place] [address] XR CHEST 1 VIEW Observed: 08/13/2024 7:24 AM Status: F Source: [facility] Interpreted By: Caitlin Ortega, STUDY: XR CHEST 1 VIEW; 08/13/2024 7:55 am INDICATION: Signs/Symptoms:Chest tube in place. COMPARISON: 08/12/2024 ACCESSION NUMBER(S): [id number] ORDERING CLINICIAN: EH COLON FINDINGS: AP portable [...] Chirag Ortega 08/13/2024 8:06 AM Dictation workstation: [id number] ECG 12-LEAD Observed: 08/13/2024 6:22 AM Status: F Source: [facility] Ventricular Rate 99 Atrial Rate 99 P-R Interval 128 QRS Duration 138 Q-T Interval 296 QTC Calculation(Bazett) 379 R Verbank 145 T Verbank 44 QRS Count 16 Q Onset 218 P Onset 96 P Offset 132 T Offset 366 QTC Fredericia 349 Diagnosis Suspect arm lead reversal, interpretation assumes no reversal Normal sinus rhythm Nonspecific intraventricular block Possible Right ventricular hypertrophy Cannot rule out Septal infarct (cited on or before 12-AUG-2024) Lateral infarct (cited on or before 12-AUG-2024) Inferior infarct , age undetermined ACUTE NV Abnormal ECG When compared with ECG of 12-AUG-2024 17:34, (unconfirmed) VA interval has decreased Serial changes of Septal infarct Present Confirmed by Cassius Mei ([id number]) on 08/17/2024 11:25:29 AM COMPLETE BLOOD COUNT W AUTO DIFFERENTIAL PANEL Collected: 08/13/2024 5:14 AM Status: F Source: [facility] TYPE CODE TESTS RESULT OUT OF RANGE REFERENCE UNITS LAB 6690-2(LOINC) Leukocytes 17.1 High 4.4-11.3 x10*3/ uL LAB 38949-3(LOINC ) Erythrocytes.nuc leated/100 leukocytes 0.0 0.0-0.0 /100 [...] 770-8(LOINC) Neutrophils/100 leukocytes 76.2 40.0-80.0 % LAB 70490-8(LOINC ) Granulocytes.imm ature/100 leukocytes 0.9 0.0-0.9 % [...] of the absolute cell counts (cells/uL). LAB 71663-0(LOINC ) Granulocytes.imm ature 0.16 0.00-0.50 x10*3/uL LAB 731-0(LOINC) Lymphocytes 2.19 0.80-3.00 x10*3 /uL LAB 742-7(LOINC) Monocytes 1.68 High 0.05-0.80 x10*3/u L LAB 711-2(LOINC) Eosinophils 0.03 0.00-0.40 x10*3 /uL LAB 704-7(LOINC) Basophils 0.02 0.00-0.10 x10*3/u L Performed By: #### 59113-8 # ### STEFANO TROY ([id number]) [facility] ([facility] [address] [place] [address] RENAL FUNCTION 2000 PANEL Collected: 5:14 AM Status: F Source: [facility] TYPE CODE TESTS RESULT OUT OF RANGE REFERENCE UNITS LAB 2345-7(LOINC) Glucose 161 High 74-99 mg/dL LAB 2951-2(LOINC) Sodium 130 Low 136-145 mmol/L LAB 2823-3(LOINC) Potassium 4.0 3.5-5.3 mmol/L LAB 2075-0(LOINC) Chloride 101 98-107 mmol/L LAB 8-9(LOINC) Carbon dioxide 21 21-32 mmol/L LAB 20808-5(LOINC) Anion gap 12 10-20 mmol/L LAB 3094-0(LOINC) Urea nitrogen 37 High 6-23 mg/d L LAB 2160-0(LOINC) Creatinine 0.88 0.50-1.05 mg/dL LAB 61810-7(LOINC) Glomerular filtration rate/1.73 sq M.predicted 69 >60 mL/min/1 .73m*2 Result Comment: Calculations of estimated GFR are performed using the 2020 CKD- EPI Study Refit equation without the race variable for the IDMS-Traceable creatinine methods. https://jasn.asnjournals.org/content/early/ASN.7370566390 LAB 85148-4(LOINC) Calcium 7.7 Low 8.6-10.3 mg/dL LAB 2777-1(LOINC) Phosphate 3.3 2.5-4.9 mg/dL Result Comment: The performa nce characteristics of phosphorus testing in heparinized plasma have been validated by the individual laboratory site where testing is performed. Testing on heparinized plasma is not approved by the FDA; however, such approval is not necessary. LAB 97318-6(LOINC) Albumin 3.4 3.4-5.0 g/dL Performed By: #### 93563-3 # ### STEFANO TROY ([id number]) [facility] ([facility] [address] [place] [address] BACTERIA IDENTIFIED Observed: 08/12/2024 11:07 PM Status: F Source: [facility] Test: Blood Culture Specimen Source: Peripheral Arterial Puncture Specimen Type: Blood culture Specimen Date: 08/12/20242306 Result Date: 08/17/2024200 Result Status: Final result Abnormal: No Resulting Lab: [facility] [id number] [place] [address] CULTURE No growth at 4 days - FINAL REPORT Performed By: #### 600-7 ### # ZABRINA Villalba ([id number]) [facility] ([facility]) [id number] [place] [address] URINALYSIS MICROSCOPIC PANEL Collected: 08/12/2024 11:06 PM Status: F Source: [facility] TYPE CODE TESTS RESULT OUT OF RANGE REFERENCE UNITS LAB 64328-3(LOINC) Leukocytes 1-5 1-5, NONE /HPF LAB 69029-6(LOINC) Erythrocytes 1-2 NO NE, 1-2, 3-5 /HPF LAB 56063-6(LOINC) Mucus FEW Refer ence range not established. /LPF Performed By: #### 36480-0 # ### STEFANO TROY ([id number]) [facility] ([facility] [address] [place] [id number] URINALYSIS COMPLETE PANEL Collected: 11:06 PM Status: F Source: [facility] TYPE CODE TESTS RESULT OUT OF RANGE REFERENCE UNITS LAB 5778-6(LOINC) Color Light-Yellow Lig ht-Yellow , Yellow, Dark-Yellow LAB 5767-9(LOINC) Appearance Turbid Normal Clear LAB 09291-1(LOINC) Specific gravity 1.021 1.005-1.035 LAB 02546-2(LOINC) pH 5.0 5.0, 5.5, 6.0, 6.5, 7.0, 7.5, 8.0 LAB 72739-6(LOINC) Protein 20 (TRACE) NEGA TIVE, 10 (TRACE), 20 (TRACE) mg/dL LAB 03840-9(LOINC) Glucose Normal Normal mg/dL LAB 19446-3(LOINC) Erythrocytes 0.2 (2+) Abnormal NEGATIVE LAB 06854-7(LOINC) Ketones NEGATIVE NEGATIVE mg/dL LAB 12965-5(LOINC) Bilirubin NEGATIVE NEGATIVE LAB 26764-2(LOINC) Urobilinogen Normal Normal mg/d L LAB 78319-3(LOINC) Nitrite NEGATIVE NEGATIVE LAB 42216-0(LOINC) Leukocyte esterase NEGATIVE NEGATIVE Performed By: #### 70040-2 # ### STEFANO TROY ([id number]) [facility] ([facility] [address] [place] [address] LEGIONELLA SP AG Observed: 08/12/2024 11:06 PM Status: F Source: [facility] Legionella sp Ag Negative Performed By: #### 29067-2 # ### ZABRINA Villalba ([id number]) [facility] ([facility]) [address] [place] [address]687 STREPTOCOCCUS PNEUMONIAE AG Observed: 11:06 PM Status: F Source: [facility] Streptococcus pneumoniae Ag Negative Performed By: #### 20568-5 # ### ZABRINA Villalba ([id number]) [facility] ([facility]) [address] [place] [address] GLUCOSE Collected: 8:47 PM Status: F Source: [facility] TYPE CODE TESTS RESULT OUT OF RANGE REFERENCE UNITS LAB 2341-6(LOINC) Glucose 151 High 74-99 mg/dL Performed By: #### 2341-6 ## ## STEFANO TROY ([id number]) [facility] ([facility] [address] [place] [id number] MAGNESIUM Collected: 4 8:02 PM Status: F Source: [facility] TYPE CODE TESTS RESULT OUT OF RANGE REFERENCE UNITS LAB 28182-6(LOINC) Magnesium 2.90 High 1.60-2.40 mg/dL Performed By: #### 79992-0 # ### STEFANO TROY ([id number]) [facility] ([facility]) [address] [place], [place] [id number] RENAL FUNCTION 2000 PANEL Collected: 8:02 PM Status: F Source: [facility] TYPE CODE TESTS RESULT OUT OF RANGE REFERENCE UNITS LAB 2345-7(LOINC) Glucose 180 High 74-99 mg/dL LAB 2951-2(LOINC) Sodium 132 Low 136-145 mmol/L LAB 2823-3(LOINC) Potassium 4.0 3.5-5.3 mmol/L LAB 2075-0(LOINC) Chloride 102 98-107 mmol/L LAB 2027-9(LOINC) Carbon dioxide 21 21-32 mmol/L LAB 68089-0(LOINC) Anion gap 13 10-20 mmol/L LAB 3094-0(LOINC) Urea nitrogen 34 High 6-23 mg/d L LAB 2160-0(LOINC) Creatinine 0.92 0.50-1.05 mg/dL LAB 96703-5(LOINC) Glomerular filtration rate/1.73 sq M.predicted 65 >60 mL/min/1 .73m*2 Result Comment: Calculations of estimated GFR are performed using the 2020 CKD- EPI Study Refit equation without the race variable for the IDMS-Traceable creatinine methods. https://jasn.asnjournals.org/content///ASN.6510546374 LAB 28304-8(LOINC) Calcium 7.9 Low 8.6-10.3 mg/dL LAB 2777-1(LOINC) Phosphate 2.9 2.5-4.9 mg/dL Result Comment: The performa nce characteristics of phosphorus testing in heparinized plasma have been validated by the individual laboratory site where testing is performed. Testing on heparinized plasma is not approved by the FDA; however, such approval is not necessary. LAB 12441-5(LOINC) Albumin 3.4 3.4-5.0 g/dL Performed By: #### 54650-3 # ### STEFANO TROY ([id number]) [facility] ([facility] [address] [place] [id number] COMPLETE BLOOD COUNT PANEL Collected: 08/12/2024 6:12 PM Status: F Source: [facility] TYPE CODE TESTS RESULT OUT OF RANGE REFERENCE UNITS LAB 6690-2(LOINC) Leukocytes 19.2 High 4.4-11.3 x10*3/ uL LAB 97751-9(LOINC) Erythrocytes.nuc l eated/100 leukocytes 0.0 0.0-0.0 /100 [...] Platelets 237 150-450 x10*3/uL Performed By: #### 13685-9 # ### STEFANO TROY ([id number]) [facility] ([facility] [address] [place] [address] COMPLETE BLOOD COUNT W AUTO DIFFERENTIAL PANEL Collected: 08/12/2024 6:12 PM Status: F Source: [facility] TYPE CODE TESTS RESULT OUT OF RANGE REFERENCE UNITS LAB 6690-2(LOINC) Leukocytes 19.2 High 4.4-11.3 x10*3/ uL LAB 45184-8(LOINC ) Erythrocytes.nuc leated/100 leukocytes 0.0 0.0-0.0 /100 [...] 770-8(LOINC) Neutrophils/100 leukocytes 75.1 40.0-80.0 % LAB 04926-3(LOINC ) Granulocytes.imm ature/100 leukocytes 0.7 0.0-0.9 % [...] of the absolute cell counts (cells/uL). LAB 17275-9(LOINC ) Granulocytes.imm ature 0.13 0.00-0.50 x10*3/uL LAB 731-0(LOINC) Lymphocytes 2.27 0.80-3.00 x10*3 /uL LAB 742-7(LOINC) Monocytes 2.16 High 0.05-0.80 x10*3/u L LAB 711-2(LOINC) Eosinophils 0.02 0.00-0.40 x10*3 /uL LAB 704-7(LOINC) Basophils 0.02 0.00-0.10 x10*3/u L Performed By: #### 67662-6 # ### STEFANO TROY ([id number]) [facility] ([facility] [facility] [place] [address] GAS PANEL Collected: 08/12/2024 6:02 PM Status: F Source: [facility] Order Comment: Please obtain from distal port of CVC Bedside RN to obtain sample TYPE CODE TESTS RESULT OUT OF RANGE REFERENCE UNITS LAB 2746-6(LOINC) pH 7.39 7.33-7.43 pH LAB 2020-4(LOINC) Carbon dioxide 33 Low 41-51 mm Hg LAB 2705-2(LOINC) Oxygen 30 Low 35-45 mm Hg LAB 2711-0(LOINC) Oxygen saturation 50 45-75 % LAB 2716-9(LOINC) Oxyhemoglobin/H emoglobin.total 49.5 45.0-75.0 % LAB 63310-1(LOINC) Hematocrit 31.0 Low 36.0-46.0 % LAB 70843-6(LOINC) Sodium 130 Low 136-145 mmol/L LAB 48963-6(LOINC) Potassium 4.0 3.5-5.3 mmol/L LAB 32195-2(LOINC) Chloride 103 98-107 mmol/L LAB 50949-5(LOINC) Calcium.ionized 1.11 1.10-1.33 mmol/L LAB 34683-7([facility]) Glucose 189 High 74-99 mg/dL LAB 2519-7([facility]) Lactate 2.3 High 0.4-2.0 mmol/L LAB 1927-3([facility]) Base excess -4.3 Low -2.0-3.0 mmol/ L LAB 75594-1([facility]) Bicarbonate 20.0 Low 22.0-26.0 mmo l/L LAB 80833-1([facility]) Hemoglobin 10.2 Low 12.0-16.0 g/dL LAB 78852-9([facility]) Anion gap 4 11.0 10.0-25.0 mmo l/L LAB 8310-5([facility]) Body temperature 37.0 degrees Celsius LAB 3150-0([facility]) Oxygen/Gas.tota l 90 % LAB FLOWA FLOW 60.0 LPM Performed By: #### 99025-8 # ### STEFANO TROY ([id number]) [facility] ([facility] [address] [place] [address] LACTATE Collected: 6:02 PM Status: F Source: [facility] TYPE CODE TESTS RESULT OUT OF RANGE REFERENCE UNITS LAB 2519-7([facility]) Lactate 2.3 High 0.4-2.0 mmol/L Performed By: #### 2519-7 ## ## STEFANO RTOY ([id number]) [facility] ([facility] [address] [place] [address] GAS AND CO AND ELECTROLYTES PANEL Collected: 08/12/2024 5:59 PM Status: F Source: [facility] TYPE CODE TESTS RESULT OUT OF RANGE REFERENCE UNITS LAB 2744-1([facility]) pH 7.46 High 7.38-7.42 pH LAB 2019-8([facility]) Carbon dioxide 26 Low 38-42 mm Hg LAB 2703-7([facility]) Oxygen 117 High 85-95 mm Hg LAB 2708-6([facility]) Oxygen saturation 100 94-100 % LAB 2714-4([facility]) Oxyhemoglobin/ Hemoglobin.tot al 97.3 94.0-98.0 % LAB 47521-6([facility]) Hematocrit 31.0 Low 36.0-46.0 % LAB 15693-1([facility]) Sodium 130 Low 136-145 mmol/L LAB 88223-6(INC) Potassium 4.3 3.5-5.3 mmol/L LAB 60400-0(INC) Chloride 100 98-107 mmol/L LAB 97927-8([facility]) Calcium.ionize d 1.17 1.10-1.33 mmol/L LAB 59755-2([facility]) Glucose 213 High 74-99 mg/dL LAB 2518-9([facility]) Lactate 2.4 High 0.4-2.0 mmol/L LAB 1925-7([facility]) Base excess -4.2 Low -2.0-3.0 mmol/ L LAB 1960-4([facility]) Bicarbonate 18.5 Low 22.0-26.0 mmol /L LAB 37350-0(INC) Hemoglobin 10.4 Low 12.0-16.0 g/dL LAB 22360-3([facility]) Anion gap 4 16 10-25 mmo/L LAB 8310-5([facility]) Body temperature 37.0 degrees Celsius LAB 3150-0([facility]) Oxygen/Gas.tot al 90 % LAB APPAR APPARATUS HIGH FLOW CANNULA LAB FLOWA FLOW 60.0 LPM LAB 32659-6([facility]) Specimen drawn from Arterial Line Performed By: #### 60581-0 # ### STEFANO TROY ([id number]) [facility] ([facility] [address] [place] [address] ECG 12-LEAD Observed: 08/12/2024 5:34 PM Status: F Source: [facility] Ventricular Rate 99 Atrial Rate 99 P-R Interval 288 QRS Duration 132 Q-T Interval 318 QTC Calculation(Bazett) 408 R Verbank 106 T Verbank 22 QRS Count 16 Q Onset 217 T Offset 376 QTC Fredericia 375 Diagnosis Sinus rhythm with 1st degree AV block Nonspecific intraventricular block Anterolateral infarct (cited on or before 12-AUG-2024) Abnormal ECG When compared with ECG of 12-AUG-2024 08:32, Sinus rhythm has replaced Atrial fibrillation Questionable change in initial forces of Anterolateral leads Confirmed by Alexy Montana ([id number]) on 08/13/2024 10:22:47 AM PT AND APTT PANEL Collected: 4:54 PM Status: F Source: [facility] Order Comment: The APTT is n o longer used for monitoring Unfractionated Heparin Therapy. For monitoring Heparin Therapy, use the Heparin Assay. TYPE CODE TESTS RESULT OUT OF RANGE REFERENCE UNITS LAB 5902-2(LOINC) Coagulation tissue factor induced 17.0 High 9.8-12.8 seconds LAB 6301-6(LOINC) Coagulation tissue factor induced.INR 1.5 High 0.9-1.1 NA LAB 42203-4(LOINC) Coagulation surface induced 31 27-38 seconds Performed By: #### 99166-7 # ### STEFANO SYDNI ([id number]) [facility] ([facility] [address] [place] [address] GAS AND CO AND ELECTROLYTES PANEL Collected: 08/12/2024 4:47 PM Status: F Source: [facility] TYPE CODE TESTS RESULT OUT OF RANGE REFERENCE UNITS LAB 2744-1(LOINC) pH 7.55 High 7.38-7.42 pH LAB 2019-8(LOINC) Carbon dioxide 20 Low 38-42 mm Hg LAB 2703-7(LOINC) Oxygen 58 Low 85-95 mm Hg LAB 2708-6(LOINC) Oxygen saturation 94 94-100 % LAB 2714-4(LOINC) Oxyhemoglobin/ Hemoglobin.tot al 91.6 Low 94.0-98.0 % LAB 73914-3(LOINC) Hematocrit 33.0 Low 36.0-46.0 % LAB 12808-6(LOINC) Sodium 128 Low 136-145 mmol/L LAB 93773-9(LOINC) Potassium 4.2 3.5-5.3 mmol/L LAB 38702-6(LOINC) Chloride 105 98-107 mmol/L LAB 82108-3(LOINC) Calcium.ionize d 1.13 1.10-1.33 mmol/L LAB 82901-7(LOINC) Glucose 214 High 74-99 mg/dL LAB 2518-9(LOINC) Lactate 2.4 High 0.4-2.0 mmol/L LAB 1925-7(LOINC) Base excess -3.2 Low -2.0-3.0 mmol/ L LAB 1960-4(LOINC) Bicarbonate 17.5 Low 22.0-26.0 mmol /L LAB 75180-9(LOINC) Hemoglobin 11.1 Low 12.0-16.0 g/dL LAB 91929-2(LOINC) Anion gap 4 10 10-25 mmo/L LAB 8310-5(LOINC) Body temperature 37.0 degrees Celsius LAB 3150-0(LOINC) Oxygen/Gas.tot al 80 % Performed By: #### 07300-4 # ### STEFANO SYDNI ([id number]) [facility] ([facility] [address] [place] [address] XR CHEST 1 VIEW Observed: 08/12/2024 4:45 PM Status: F Source: [facility] Interpreted By: Ezra [facility] zuly, STUDY: XR CHEST 1 VIEW; 08/12/2024 5:11 pm INDICATION: Signs/Symptoms:SPO2 88% and hypotensive. COMPARISON: X-ray chest 08/12/2024 ACCESSION NUMBER(S): [id number] ORDERING CLINICIAN: AGUS GRAHAM FINDINGS: Stable cardiomediastinal silhouette. Small right apical pneumothorax. Right IJ central venous catheter tip stable in position. Bibasilar opacities and small bilateral pleural effusions. IMPRESSION: 1. Stable exam. Small right apical pneumothorax. MACRO: None Signed by: Lenard Munguia 08/12/2024 6:05 PM Dictation workstation: [id number] TRANSTHORACIC ECHO (TTE) LIMITED Observed: 08/12/2024 4:14 PM Status: F Source: [facility], [address] [place] [address] and TRANSTHORACIC ECHOCARDIOGRAM REPORT Patient Name: BOB Hancock Physician: [id number] Kevin Kenyon MD Study Date: 08/12/2024 Ordering Provider: [id number] EH COLON MRN/PID: [id number] Fellow: Nurse: Date of /Age: 3 1950 General Matcher: Erik smith RDCS Gender assigned at F Additional Staff: Nelson Flores : Height: 175.00 cm Admit Date: 08/10/2024 Weight: 83.00 kg Admission Status: Inpatient - STAT BSA / BMI: 1.99 m2 / 27.10 kg/m2 Blood Pressure: 101/61 mmHg Department Location: [facility] Study Type: TRANSTHORACIC ECHO (TTE) LIMITED Diagnosis/ICD: Postprocedural hypotension-I95.81 Indication: Hypotension S/P Ascending Aorta Replacement CPT Code: Echo Limited-37195; Doppler Limited-56106; Color Doppler-93192 Patient History: Pertinent History: Aneurysm of ascending [...] 49 % RIGHT VENTRICLE: TAPSE: 20.9 mm [id number] Kevin Kenyon MD Electronically signed on 08/12/2024 at 6:18:22 PM Final GLUCOSE Collected: 3:27 PM Status: F Source: [facility] TYPE CODE TESTS RESULT OUT OF RANGE REFERENCE UNITS LAB 2341-6(LOINC) Glucose 193 High 74-99 mg/dL Performed By: #### 2341-6 ## ## STEFANO TROY ([id number]) [facility] ([facility] [address] [place] [address] HEMOGLOBIN AND HEMATOCRIT PANEL Collect ed: 08/12/2024 2:51 PM Status: F Source: [facility] TYPE CODE TESTS RESULT OUT OF RANGE REFERENCE UNITS LAB 718-7(LOINC) Hemoglobin 10.3 Low 12.0-16.0 g/dL LAB 4544-3(LOINC) Hematocrit 30.1 Low 36.0-46.0 % Performed By: #### 24240-5 # ### STEFANO TROY ([id number]) [facility] ([facility] [address] [place], [place] [id number] GLUCOSE Collected: 4 11:51 AM Status: F Source: [facility] TYPE CODE TESTS RESULT OUT OF RANGE REFERENCE UNITS LAB 2341-6(LOINC) Glucose 178 High 74-99 mg/dL Performed By: #### 2341-6 ## ## STEFANO TROY ([id number]) [facility] ([facility] [address] [place], [place] [id number] ECG 12-LEAD Observed: 08/12/2024 8:32 AM Status: F Source: [facility] Ventricular Rate 121 Atrial Rate 133 QRS Duration 130 Q-T Interval 350 QTC Calculation(Bazett) 497 R Verbank 89 T Verbank 47 QRS Count 20 Q Onset 213 T Offset 388 QTC Fredericia 442 Diagnosis Atrial fibrillation with rapid ventricular response Low voltage QRS Nonspecific intraventricular block Cannot rule out Septal infarct , age undetermined Possible Lateral infarct , age undetermined Abnormal ECG Confirmed by Garrick Díaz ([id number]) on 08/12/2024 11:41:30 AM GLUCOSE Collected: 7:48 AM Status: F Source: [facility] TYPE CODE TESTS RESULT OUT OF RANGE REFERENCE UNITS LAB 2341-6(LOINC) Glucose 130 High 74-99 mg/dL Performed By: #### 2341-6 ## ## STEFANO SYDNI ([id number]) [facility] ([facility] [place] [address] XR CHEST 1 VIEW Observed: 08/12/2024 7:27 AM Status: F Source: [facility] Interpreted By: Miller Hussein, STUDY: XR CHEST 1 VIEW; 08/12/2024 7:39 am INDICATION: Signs/Symptoms:ct in place s/p Aortic root replacement. COMPARISON: Chest x-rays, most recent from 08/11/2024 at 4:24 a.m. ACCESSION NUMBER(S): [id number] ORDERING CLINICIAN: EH COLON TECHNIQUE: Single AP [...] Rob Hussein 08/12/2024 8:04 AM Dictation workstation: [id number] MAGNESIUM Collected: 6:06 AM Status: F Source: [facility] TYPE CODE TESTS RESULT OUT OF RANGE REFERENCE UNITS LAB 89322-3(LOINC) Magnesium 1.87 1.60-2.40 mg/dL Performed By: #### 28375-8 # ### STEFANO SYDNI ([id number]) [facility] ([facility] [address] [place] [address] RENAL FUNCTION 2000 PANEL Collected: 6:06 AM Status: F Source: [facility] TYPE CODE TESTS RESULT OUT OF RANGE REFERENCE UNITS LAB 2345-7(LOINC) Glucose 127 High 74-99 mg/dL LAB 2951-2(LOINC) Sodium 136 136-145 mmol/L LAB 2823-3(LOINC) Potassium 4.2 3.5-5.3 mmol/L LAB 2075-0(LOINC) Chloride 105 98-107 mmol/L LAB 2027-9(LOINC) Carbon dioxide 25 21-32 mmol/L LAB 97281-1(LOINC) Anion gap 10 10-20 mmol/L LAB 3094-0(LOINC) Urea nitrogen 29 High 6-23 mg/d L LAB 2160-0(LOINC) Creatinine 0.64 0.50-1.05 mg/dL LAB 94837-1(LOINC) Glomerular filtration rate/1.73 sq M.predicted >90 >60 mL/min/1 .73m*2 Result Comment: Calculations of estimated GFR are performed using the 2020 CKD- EPI Study Refit equation without the race variable for the IDMS-Traceable creatinine methods. https://jasn.asnjournals.org/content/early//ASN.4955108020 LAB 01196-9(LOINC) Calcium 8.2 Low 8.6-10.3 mg/dL LAB 2777-1(LOINC) Phosphate 2.0 Low 2.5-4.9 mg/dL Result Comment: The performa nce characteristics of phosphorus testing in heparinized plasma have been validated by the individual laboratory site where testing is performed. Testing on heparinized plasma is not approved by the FDA; however, such approval is not necessary. LAB 92629-2(LOINC) Albumin 3.4 3.4-5.0 g/dL Performed By: #### [id number] # ### STEFANO TROY ([id number]) [facility] [place] [place] [address] [place] [address] COMPLETE BLOOD COUNT PANEL Collected: 08/12/2024 6:06 AM Status: F Source: [facility] TYPE CODE TESTS RESULT OUT OF RANGE REFERENCE UNITS LAB 6690-2(LOINC) Leukocytes 12.4 High 4.4-11.3 x10*3/ uL LAB 30047-4(LOINC) Erythrocytes.nuc l eated/100 leukocytes 0.0 0.0-0.0 /100 [...] Platelets 186 150-450 x10*3/uL Performed By: #### 53228-3 # ### STEFANO TROY ([id number]) [facility] [place] [place] [address] [id number] COMPLETE BLOOD COUNT PANEL Collected: 08/12/2024 1:40 AM Status: F Source: [facility] TYPE CODE TESTS RESULT OUT OF RANGE REFERENCE UNITS LAB 6690-2(LOINC) Leukocytes 11.0 4.4-11.3 x10*3/ uL LAB 91767-3(LOINC) Erythrocytes.nuc l eated/100 leukocytes 0.0 0.0-0.0 /100 [...] Platelets 182 150-450 x10*3/uL Performed By: #### 74198-8 # ### STEFANO TROY ([id number]) [facility] [place] [place] [address] [place] [address] GLUCOSE Collected: 8:23 PM Status: F Source: [facility] TYPE CODE TESTS RESULT OUT OF RANGE REFERENCE UNITS LAB 2341-6([facility]) Glucose 123 High 74-99 mg/dL Performed By: #### 2341-6 ## ## STEFANO TROY ([id number]) [facility] [place] [place] [address] [id number] GAS PANEL Collected: 08/11/2024 3:59 PM Status: F Source: [facility] Order Comment: Place draw fr om CVP port TYPE CODE TESTS RESULT OUT OF RANGE REFERENCE UNITS LAB 2746-6(LOINC) pH 7.41 7.33-7.43 pH LAB 2020-4(LOINC) Carbon dioxide 38 Low 41-51 mm Hg LAB 2705-2(LOINC) Oxygen 36 35-45 mm Hg LAB 2711-0(LOINC) Oxygen saturation 58 45-75 % LAB 2716-9(LOINC) Oxyhemoglobin/H emoglobin.total 57.2 45.0-75.0 % LAB 53012-9(LOINC) Hematocrit 29.0 Low 36.0-46.0 % LAB 39842-7(LOINC) Sodium 134 Low 136-145 mmol/L LAB 46709-6([facility]) Potassium 4.2 3.5-5.3 mmol/L LAB 64067-5([facility]) Chloride 104 98-107 mmol/L LAB 65330-7([facility]) Calcium.ionized 1.21 1.10-1.33 mmol/L LAB 65054-6([facility]) Glucose 172 High 74-99 mg/dL LAB 2519-7([facility]) Lactate 2.7 High 0.4-2.0 mmol/L LAB 1927-3([facility]) Base excess -0.4 -2.0-3.0 mmol/ L LAB 12411-6([facility]) Bicarbonate 24.1 22.0-26.0 mmo l/L LAB 10153-6([facility]) Hemoglobin 9.6 Low 12.0-16.0 g/dL LAB 14367-7([facility]) Anion gap 4 10.0 10.0-25.0 mmo l/L LAB 8310-5([facility]) Body temperature 37.0 degrees Celsius LAB 3150-0([facility]) Oxygen/Gas.tota l 28 % Result Comment: 1L NC Performed By: #### 87392-0 # ### STEFANO TROY ([id number]) [facility] [place] [address] [place], [place] [id number] GLUCOSE Collected: 4 3:36 PM Status: F Source: [facility] TYPE CODE TESTS RESULT OUT OF RANGE REFERENCE UNITS LAB 2341-6([facility]) Glucose 155 High 74-99 mg/dL Performed By: #### 2341-6 ## ## STEFANO TROY ([id number]) [facility] [place] [address] [place] [address] GLUCOSE Collected: 4 11:32 AM Status: F Source: [facility] TYPE CODE TESTS RESULT OUT OF RANGE REFERENCE UNITS LAB 2341-6([facility]) Glucose 151 High 74-99 mg/dL Performed By: #### 2341-6 ## ## STEFANO SYDNI ([id number]) [facility] [place] [address] [place] [address] GLUCOSE Collected: 4 7:55 AM Status: F Source: [facility] TYPE CODE TESTS RESULT OUT OF RANGE REFERENCE UNITS LAB 2341-6(LOINC) Glucose 158 High 74-99 mg/dL Performed By: #### 2341-6 ## ## STEFANO TROY ([id number]) [facility] [place] [address] [place] [address] COMPLETE BLOOD COUNT PANEL Collected: 08/11/2024 4:17 AM Status: F Source: [facility] TYPE CODE TESTS RESULT OUT OF RANGE REFERENCE UNITS LAB 6690-2(LOINC) Leukocytes 9.5 4.4-11.3 x10*3/ uL LAB 51216-5(LOINC) Erythrocytes.nuc l eated/100 leukocytes 0.0 0.0-0.0 /100 [...] Platelets 230 150-450 x10*3/uL Performed By: #### 32762-0 # ### STEFANO TROY ([id number]) [facility] [place] [address] [place] [address] MAGNESIUM Collected: 4:17 AM Status: F Source: [facility] TYPE CODE TESTS RESULT OUT OF RANGE REFERENCE UNITS LAB 40897-6(LOINC) Magnesium 2.16 1.60-2.40 mg/dL Performed By: #### 98094-7 # ### STEFANO TROY ([id number]) [facility] [place] [address] [place] [address] RENAL FUNCTION 2000 PANEL Collected: 4:17 AM Status: F Source: [facility] TYPE CODE TESTS RESULT OUT OF RANGE REFERENCE UNITS LAB 2345-7(LOINC) Glucose 187 High 74-99 mg/dL LAB 2951-2(LOINC) Sodium 137 136-145 mmol/L LAB 2823-3(LOINC) Potassium 4.1 3.5-5.3 mmol/L LAB 2075-0(LOINC) Chloride 107 98-107 mmol/L LAB 2028-9(LOINC) Carbon dioxide 22 21-32 mmol/L LAB 65719-9(LOINC) Anion gap 12 10-20 mmol/L LAB 3094-0(LOINC) Urea nitrogen 24 High 6-23 mg/d L LAB 2160-0(LOINC) Creatinine 0.76 0.50-1.05 mg/dL LAB 32645-8(LOINC) Glomerular filtration rate/1.73 sq M.predicted 82 >60 mL/min/1 .73m*2 Result Comment: Calculations of estimated GFR are performed using the 2020 CKD- EPI Study Refit equation without the race variable for the IDMS-Traceable creatinine methods. https://jasn.asnjournals.org/content/early//ASN.0944199857 LAB 89937-0(LOINC) Calcium 7.7 Low 8.6-10.3 mg/dL LAB 2777-1(LOINC) Phosphate 3.3 2.5-4.9 mg/dL Result Comment: The performa nce characteristics of phosphorus testing in heparinized plasma have been validated by the individual laboratory site where testing is performed. Testing on heparinized plasma is not approved by the FDA; however, such approval is not necessary. LAB 45954-7(LOINC) Albumin 3.6 3.4-5.0 g/dL Performed By: #### 78209-4 # ### STEFANO SYDNI ([id number]) [facility] [place] [address] [place] [address] COAGULATION FACTOR VIII ACTIVITY ACTUAL/NORMAL Collected: 08/11/2024 4:17 AM Status: F Sour e: [facility] TYPE CODE TESTS RESULT OUT OF RANGE REFERENCE UNITS LAB 3209-4(LOINC) Coagulation factor VIII activity actual/Normal 108 55-180 % Performed By: #### 3209-4 ## ## ZABRINA Villalba ([id number]) [facility] ([facility]) [address] [place] [address] XR CHEST 1 VIEW Observed: 08/11/2024 12:00 AM Status: F Source: [facility] Order Comment: Tomorrow in I CU Interpreted By: Miller Hussein, STUDY: XR CHEST 1 VIEW; 08/11/2024 4:53 am INDICATION: Signs/Symptoms:Post op cardiac surgery. COMPARISON: Most recent prior is from 08/10/2024. ACCESSION NUMBER(S): [id number] ORDERING CLINICIAN: TAMI NELSON TECHNIQUE: Single AP [...] Rob Hussein 08/11/2024 8:18 AM Dictation workstation: [id number] GLUCOSE Collected: 7:42 PM Status: F Source: [facility] TYPE CODE TESTS RESULT OUT OF RANGE REFERENCE UNITS LAB 2341-6(LOINC) Glucose 173 High 74-99 mg/dL Performed By: #### 2341-6 ## ## STEFANO TROY ([id number]) [facility] [place] [address] [place] [id number] GLUCOSE Collected: 3:52 PM Status: F Source: [facility] TYPE CODE TESTS RESULT OUT OF RANGE REFERENCE UNITS LAB 2341-6(LOINC) Glucose 182 High 74-99 mg/dL Performed By: #### 2341-6 ## ## STEFANO TROY ([id number]) [facility] ([facility] [address] [place] [id number] COMPLETE BLOOD COUNT PANEL Collected: 08/10/2024 3:44 PM Status: F Source: [facility] TYPE CODE TESTS RESULT OUT OF RANGE REFERENCE UNITS LAB 6690-2(LOINC) Leukocytes 13.6 High 4.4-11.3 x10*3/ uL LAB 49924-0(LOINC) Erythrocytes.nuc l eated/100 leukocytes 0.0 0.0-0.0 /100 [...] Platelets 286 150-450 x10*3/uL Performed By: #### 01060-1 # ### STEFANO TROY ([id number]) [facility] [place] [address] [place] [id number] GAS AND CO AND ELECTROLYTES PANEL Collected: 08/10/2024 2:55 PM Status: F Source: [facility] TYPE CODE TESTS RESULT OUT OF RANGE REFERENCE UNITS LAB 2744-1(LOINC) pH 7.32 Low 7.38-7.42 pH LAB 2019-8([facility]) Carbon dioxide 39 38-42 mm Hg LAB 2703-7([facility]) Oxygen 154 High 85-95 mm Hg LAB 2708-6([facility]) Oxygen saturation 100 94-100 % LAB 2714-4([facility]) Oxyhemoglobin/ Hemoglobin.tot al 97.5 94.0-98.0 % LAB 86763-6([facility]) Hematocrit 27.0 Low 36.0-46.0 % LAB 87326-2([facility]) Sodium 137 136-145 mmol/L LAB 78417-8([facility]) Potassium 4.0 3.5-5.3 mmol/L LAB 80252-0([facility]) Chloride 110 High 98-107 mmol/L LAB 46970-8([facility]) Calcium.ionize d 1.10 1.10-1.33 mmol/L LAB 19452-4([facility]) Glucose 234 High 74-99 mg/dL LAB 2518-9([facility]) Lactate 1.9 0.4-2.0 mmol/L LAB 1925-7([facility]) Base excess -5.5 Low -2.0-3.0 mmol/ L LAB 1960-4([facility]) Bicarbonate 20.1 Low 22.0-26.0 mmol /L LAB 77401-8([facility]) Hemoglobin 9.1 Low 12.0-16.0 g/dL LAB 93063-7([facility]) Anion gap 4 11 10-25 mmo/L LAB 8310-5([facility]) Body temperature 37.0 degrees Celsius LAB 3150-0([facility]) Oxygen/Gas.tot al 40 % LAB VRATE VENTILATOR RATE 14 bpm LAB TLVOL TIDAL VOLUME 400 mL LAB PEEP PEEP CMH2O 5.0 cm H2O Performed By: #### 16033-4 # ### STEFANO TROY ([id number]) [facility] ([facility] [address] [place] [address] FIBRINOGEN Collected: 4 2:54 PM Status: F Source: [facility] TYPE CODE TESTS RESULT OUT OF RANGE REFERENCE UNITS LAB 3255-7([facility]) Fibrinogen 185 Low 200-400 mg/dL Performed By: #### 3255-7 ## ## STEFANO TROY ([id number]) [facility] [address] [place] [address] PT AND APTT PANEL Collected: 2:54 PM Status: F Source: [facility] Order Comment: The APTT is n o longer used for monitoring Unfractionated Heparin Therapy. For monitoring Heparin Therapy, use the Heparin Assay. TYPE CODE TESTS RESULT OUT OF RANGE REFERENCE UNITS LAB 5902-2(LOINC) Coagulation tissue factor induced 14.5 High 9.8-12.8 seconds LAB 6301-6(LOINC) Coagulation tissue factor induced.INR 1.3 High 0.9-1.1 NA LAB 18642-4(LOINC) Coagulation surface induced 27 27-38 seconds Performed By: #### 84034-2 # ### STEFANO TROY ([id number]) [facility] ([facility] [address] [place] [address] COMPLETE BLOOD COUNT PANEL Collected: 08/10/2024 1:42 PM Status: F Source: [facility] Order Comment: On admit to I CU TYPE CODE TESTS RESULT OUT OF RANGE REFERENCE UNITS LAB 6690-2(LOINC) Leukocytes 15.8 High 4.4-11.3 x10*3/ uL LAB 88683-0(LOINC) Erythrocytes.nuc l eated/100 leukocytes 0.0 0.0-0.0 /100 [...] Platelets 273 150-450 x10*3/uL Performed By: #### 93074-3 # ### STEFANO TROY ([id number]) [facility] ([facility] [address] [place] [address] MAGNESIUM Collected: 1:42 PM Status: F Source: [facility] Order Comment: On admit to I CU TYPE CODE TESTS RESULT OUT OF RANGE REFERENCE UNITS LAB 08767-1(LOINC) Magnesium 2.39 1.60-2.40 mg/dL Performed By: #### 16342-5 # ### STEFANO TROY ([id number]) [facility] [address] [place] [address] RENAL FUNCTION 2000 PANEL Collected: 1:42 PM Status: F Source: [facility] Order Comment: On admit to I CU TYPE CODE TESTS RESULT OUT OF RANGE REFERENCE UNITS LAB 2345-7(LOINC) Glucose 180 High 74-99 mg/dL LAB 2951-2(LOINC) Sodium 141 136-145 mmol/L LAB 2823-3(LOINC) Potassium 3.6 3.5-5.3 mmol/L LAB 2075-0(LOINC) Chloride 112 High 98-107 mmol/L LAB 2027-9(LOINC) Carbon dioxide 23 21-32 mmol/L LAB 96995-2(LOINC) Anion gap 10 10-20 mmol/L LAB 3094-0(LOINC) Urea nitrogen 21 6-23 mg/d L LAB 2160-0(LOINC) Creatinine 0.73 0.50-1.05 mg/dL LAB 30294-3(LOINC) Glomerular filtration rate/1.73 sq M.predicted 86 >60 mL/min/1 .73m*2 Result Comment: Calculations of estimated GFR are performed using the 2020 CKD- EPI Study Refit equation without the race variable for the IDMS-Traceable creatinine methods. https://jasn.asnjournals.org/content///ASN.8769430308 LAB 44524-6(LOINC) Calcium 7.3 Low 8.6-10.3 mg/dL LAB 2777-1(LOINC) Phosphate 3.0 2.5-4.9 mg/dL Result Comment: The performa nce characteristics of phosphorus testing in heparinized plasma have been validated by the individual laboratory site where testing is performed. Testing on heparinized plasma is not approved by the FDA; however, such approval is not necessary. LAB 84622-3(LOINC) Albumin 3.4 3.4-5.0 g/dL Performed By: #### 90597-2 # ### STEFANO SYDNI ([id number]) [facility] ([facility] [address] [place] [address] GAS AND CO AND ELECTROLYTES PANEL Collected: 08/10/2024 1:41 PM Status: F Source: [facility] TYPE CODE TESTS RESULT OUT OF RANGE REFERENCE UNITS LAB 2744-1(LOINC) pH 7.31 Low 7.38-7.42 pH LAB 2019-8(LOINC) Carbon dioxide 43 High 38-42 mm Hg LAB 2703-7(LOINC) Oxygen 149 High 85-95 mm Hg LAB 2708-6(LOINC) Oxygen saturation 99 94-100 % LAB 2714-4(LOINC) Oxyhemoglobin/ Hemoglobin.tot al 97.2 94.0-98.0 % LAB 98951-4(LOINC) Hematocrit 29.0 Low 36.0-46.0 % LAB 03077-0(LOINC) Sodium 140 136-145 mmol/L LAB 28810-3(LOINC) Potassium 3.7 3.5-5.3 mmol/L LAB 86908-1(LOINC) Chloride 110 High 98-107 mmol/L LAB 12603-3(LOINC) Calcium.ionize d 1.04 Low 1.10-1.33 mmol/L LAB 15183-3(LOINC) Glucose 202 High 74-99 mg/dL LAB 2518-9(LOINC) Lactate 1.2 0.4-2.0 mmol/L LAB 1925-7(LOINC) Base excess -4.4 Low -2.0-3.0 mmol/ L LAB 1960-4(LOINC) Bicarbonate 21.7 Low 22.0-26.0 mmol /L LAB 27837-6(LOINC) Hemoglobin 9.6 Low 12.0-16.0 g/dL LAB 17032-4(LOINC) Anion gap 4 12 10-25 mmo/L LAB 8310-5([facility]) Body temperature 37.0 degrees Celsius LAB 3150-0([facility]) Oxygen/Gas.tot al 50 % LAB VRATE VENTILATOR RATE 14 bpm LAB TLVOL TIDAL VOLUME 450 mL LAB PEEP PEEP CMH2O 5.0 cm H2O LAB 94269-7([facility]) Specimen drawn from Arterial Line Performed By: #### 96961-4 # ### STEFANO TROY ([id number]) [facility] ([facility] [address] [place] [address] ECG 12-LEAD Observed: 08/10/2024 12:57 PM Status: F Source: [facility] Ventricular Rate 71 Atrial Rate 71 P-R Interval 204 QRS Duration 148 Q-T Interval 508 QTC Calculation(Bazett) 552 P Verbank 75 R Verbank -23 T Verbank 72 QRS Count 12 Q Onset 212 P Onset 110 P Offset 167 T Offset 466 QTC Fredericia 537 Diagnosis Normal sinus rhythm Left bundle branch block Abnormal ECG Confirmed by Garrick Díaz ([id number]) on 08/10/2024 4:54:53 PM GLUCOSE Collected: 12:52 PM Status: F Source: [facility] TYPE CODE TESTS RESULT OUT OF RANGE REFERENCE UNITS LAB 2341-6([facility]) Glucose 167 High 74-99 mg/dL Performed By: #### 2341-6 ## ## STEFANO TROY ([id number]) [facility] [address] [place] [address] XR CHEST 1 VIEW Observed: 08/10/2024 12:40 PM Status: F Source: [facility] Order Comment: On arrival to ICU Interpreted By: Rudi Lambert, STUDY: XR CHEST 1 VIEW; 08/10/2024 1:51 pm INDICATION: Signs/Symptoms:Post op cardiac surgery. COMPARISON: 07/29/2024 ACCESSION NUMBER(S): [id number] ORDERING CLINICIAN: TAMI NELSON FINDINGS: Multiple new [...] as above. Questionable small left apical pneumothorax. Tsgn-hraxwsr-lbrq-right basilar infiltrates or atelectasis. MACRO: None. Signed by: Fernanda Lambetr 08/10/2024 2:44 PM Dictation workstation: [id number] GAS AND CO AND ELECTROLYTES PANEL Collected: 08/10/2024 12:11 PM Status: F Source: [facility] TYPE CODE TESTS RESULT OUT OF RANGE REFERENCE UNITS LAB 2744-1(LOINC) pH 7.32 Low 7.38-7.42 pH LAB 2019-8(LOINC) Carbon dioxide 43 High 38-42 mm Hg LAB 2703-7(LOINC) Oxygen 298 High 85-95 mm Hg LAB 2708-6(LOINC) Oxygen saturation 100 94-100 % LAB 2714-4(LOINC) Oxyhemoglobin/ Hemoglobin.tot al 97.4 94.0-98.0 % LAB 65086-9(LOINC) Hematocrit 30.0 Low 36.0-46.0 % LAB 04085-2(LOINC) Sodium 139 136-145 mmol/L LAB 99051-2(LOINC) Potassium 3.7 3.5-5.3 mmol/L LAB 44441-5(LOINC) Chloride 108 High 98-107 mmol/L LAB 01864-3(LOINC) Calcium.ionize d 1.17 1.10-1.33 mmol/L LAB 84834-0(LOINC) Glucose 162 High 74-99 mg/dL LAB 2518-9(LOINC) Lactate 2.2 High 0.4-2.0 mmol/L LAB 1925-7(LOINC) Base excess -3.8 Low -2.0-3.0 mmol/ L LAB 1960-4(LOINC) Bicarbonate 22.2 22.0-26.0 mmol /L LAB 95433-5(LOINC) Hemoglobin 10.1 Low 12.0-16.0 g/dL LAB 46850-2(LOINC) Anion gap 4 13 10-25 mmo/L LAB 8310-5(LOINC) Body temperature 37.0 degrees Celsius Result Comment: NOTE: Patien t Results are Not Corrected for Temperature LAB 3150-0(LOINC) Oxygen/Gas.tot al 100 % Performed By: #### 10490-3 # ### STEFANO TROY ([id number]) [facility] [address] [id number] CARBOXYHEMOGLOBIN/HEMOGLOBIN.TOTAL Rosmery ected: 08/10/2024 12:11 PM Status: F Source: [facility] TYPE CODE TESTS RESULT OUT OF RANGE REFERE NCE UNITS LAB 84202-9([facility]) Hemoglobin 10.1 Low 12.0-1 6.0 g/dL LAB 2714-4(LOIN C) Oxyhemoglob in/Hemoglob in.total 97.4 94.0-9 8.0 % LAB 2030-5(LOIN C) Carboxyhemo globin/Hemo globin.tota l 1.2 % Result Comment: Ref Values Non-Smokers 0.5-1.5% Smokers 0.5-10.0% LAB 2615-3(LOIN C) Methemoglob in/Hemoglob in.total 0.9 0.0-1. 5 % LAB 31027-4(KM [facility]) Deoxyhemogl obin/Hemogl obin.total 0.5 0.0-5. 0 % Performed By: #### 2030-5 ## ## STEFANO TROY ([id number]) [facility] ([facility] [address] [id number] COMPLETE BLOOD COUNT PANEL Collected: 08/10/2024 12:0 0 PM Status: F Source: [facility] TYPE CODE TESTS RESULT OUT OF RANGE REFERENCE UNITS LAB 6690-2(LOINC) Leukocytes 18.3 High 4.4-11.3 x10*3/ uL LAB 96519-2(LOINC) Erythrocytes.nuc l eated/100 leukocytes 0.0 0.0-0.0 /100 [...] Platelets 229 150-450 x10*3/uL Performed By: #### 73213-9 # ### STEFANO TROY ([id number]) [facility] ([facility] [address] [place] [address] FIBRINOGEN Collected: 12:00 PM Status: F Source: [facility] TYPE CODE TESTS RESULT OUT OF RANGE REFERENCE UNITS LAB 3255-7(LOINC) Fibrinogen 151 Low 200-400 mg/dL Performed By: #### 3255-7 ## ## STEFANO TROY ([id number]) [facility] ([facility] [address] [place] [address] COAGULATION TISSUE FACTOR INDUCED Collected: 08/10/2024 12:00 PM Status: F Source: [facility] TYPE CODE TESTS RESULT OUT OF RANGE REFERENCE UNITS LAB 5902-2(LOINC) Coagulation tissue factor induced 19.0 High 9.8-12.8 seconds LAB 6301-6(LOINC) Coagulation tissue factor induced.INR 1.7 High 0.9-1.1 NA Performed By: #### 5902-2 ## ## STEFANO TROY ([id number]) [facility] ([facility] [address] [place] [address] COAGULATION SURFACE INDUCED Collected: 08/10/2024 12:00 PM Status: F Source: [facility] Order Comment: The APTT is n o longer used for monitoring Unfractionated Heparin Therapy. For monitoring Heparin Therapy, use the Heparin Assay. TYPE CODE TESTS RESULT OUT OF RANGE REFERENCE UNITS LAB 62906-3(LOINC) Coagulation surface induced 34 27-38 seconds Performed By: #### 19206-5 # ### STEFANO TROY ([id number]) [facility] ([facility] [address] [place] [address] GAS AND CO AND ELECTROLYTES PANEL Collected: 08/10/2024 11:22 AM Status: F Source: [facility] TYPE CODE TESTS RESULT OUT OF RANGE REFERENCE UNITS LAB 2744-1([facility]) pH 7.33 Low 7.38-7.42 pH LAB 2019-8(INC) Carbon dioxide 42 38-42 mm Hg LAB 2703-7([facility]) Oxygen 266 High 85-95 mm Hg LAB 2708-6(INC) Oxygen saturation 100 94-100 % LAB 2714-4([facility]) Oxyhemoglobin/ Hemoglobin.tot al 98.2 High 94.0-98.0 % LAB 98340-0([facility]) Hematocrit 25.0 Low 36.0-46.0 % LAB 65830-1(INC) Sodium 140 136-145 mmol/L LAB 65399-9(INC) Potassium 4.0 3.5-5.3 mmol/L LAB 75028-1(INC) Chloride 108 High 98-107 mmol/L LAB 70643-7(INC) Calcium.ionize d 1.19 1.10-1.33 mmol/L LAB 83292-4(LOINC) Glucose 144 High 74-99 mg/dL LAB 2518-9(LOINC) Lactate 2.9 High 0.4-2.0 mmol/L LAB 1925-7(LOINC) Base excess -3.6 Low -2.0-3.0 mmol/ L LAB 1960-4(LOINC) Bicarbonate 22.1 22.0-26.0 mmol /L LAB 77251-7(INC) Hemoglobin 8.3 Low 12.0-16.0 g/dL LAB 59556-8(LOINC) Anion gap 4 14 10-25 mmo/L LAB 8310-5(LOINC) Body temperature 37.0 degrees Celsius Result Comment: NOTE: Uriel t Results are Not Corrected for Temperature LAB 3150-0([facility]) Oxygen/Gas.tot al 100 % Performed By: #### 46484-0 # ### STEFANO TROY ([id number]) [facility] [place] [place] [address] [place] [address] CARBOXYHEMOGLOBIN/HEMOGLOBIN.TOTAL Rosmery ected: 08/10/2024 11:22 AM Status: F Source: [facility] TYPE CODE TESTS RESULT OUT OF RANGE REFERE NCE UNITS LAB 79758-8(KM NC) Hemoglobin 8.3 Low 12.0-1 6.0 g/dL LAB 2714-4(LOIN C) Oxyhemoglob in/Hemoglob in.total 98.2 High 94.0-9 8.0 % LAB 2030-5(LOIN C) Carboxyhemo globin/Hemo globin.tota l 1.1 % Result Comment: Ref Values Non-Smokers 0.5-1.5% Smokers 0.5-10.0% LAB 2615-3(LOIN C) Methemoglob in/Hemoglob in.total 0.6 0.0-1. 5 % LAB 26058-3(KM [place]) Deoxyhemogl obin/Hemogl obin.total 0.2 0.0-5. 0 % Performed By: #### 2030-5 ## ## STEFANO TROY ([id number]) [facility] [place] [place] [address] [place] [address] ACTIVATED CLOTTING TIME Collected: 10/2023 10:48 AM Status: F Source: [facility] TYPE CODE TESTS RESULT OUT OF RANGE REFERENCE UNITS LAB 3184-9(LOINC) Activated clotting time 115 82-174 sec Result Comment: Target ACT r damion will vary based on the patient population, clinical status, and surgical intervention occurring. Performed By: #### 3184-9 ## ## STEFANO TROY ([id number]) [facility] [place] [place] [address] [place], [place] [id number] GAS AND CO AND ELECTROLYTES PANEL Collected: 08/10/2024 10:42 AM Status: F Source: [facility] TYPE CODE TESTS RESULT OUT OF RANGE REFERENCE UNITS LAB 2744-1(LOINC) pH 7.30 Low 7.38-7.42 pH LAB 2019-8(LOINC) Carbon dioxide 45 High 38-42 mm Hg LAB 2703-7(LOINC) Oxygen 281 High 85-95 mm Hg LAB 2708-6(LOINC) Oxygen saturation 100 94-100 % LAB 2714-4(LOINC) Oxyhemoglobin/ Hemoglobin.tot al 97.8 94.0-98.0 % LAB 96848-6(LOINC) Hematocrit 27.0 Low 36.0-46.0 % LAB 95334-8(INC) Sodium 137 136-145 mmol/L LAB 65729-2(INC) Potassium 4.7 3.5-5.3 mmol/L LAB 71599-1([facility]) Chloride 109 High 98-107 mmol/L LAB 69545-1([facility]) Calcium.ionize d 1.15 1.10-1.33 mmol/L LAB 27729-6([facility]) Glucose 188 High 74-99 mg/dL LAB 2518-9(INC) Lactate 2.7 High 0.4-2.0 mmol/L LAB 1925-7([facility]) Base excess -4.2 Low -2.0-3.0 mmol/ L LAB 1960-4([facility]) Bicarbonate 22.1 22.0-26.0 mmol /L LAB 88012-7([facility]) Hemoglobin 9.1 Low 12.0-16.0 g/dL LAB 59397-7([facility]) Anion gap 4 11 10-25 mmo/L LAB 8310-5([facility]) Body temperature 37.0 degrees Celsius Result Comment: NOTE: Patien t Results are Not Corrected for Temperature LAB 3150-0[facility] [facility]) Oxygen/Gas.tot al 100 % Performed By: #### 52236-5 # ### STEFANO TROY ([id number]) [facility] [place] [address] [place] [address] CARBOXYHEMOGLOBIN/HEMOGLOBIN.TOTAL Rosmery ected: 08/10/2024 10:42 AM Status: F Source: [facility] TYPE CODE TESTS RESULT OUT OF RANGE REFERE NCE UNITS LAB 30944-9(KM NC) Hemoglobin 9.1 Low 12.0-1 6.0 g/dL LAB 2714-4(LOIN C) Oxyhemoglob in/Hemoglob in.total 97.8 94.0-9 8.0 % LAB 2030-5(LOIN C) Carboxyhemo globin/Hemo globin.tota l 1.6 % Result Comment: Ref Values Non-Smokers 0.5-1.5% Smokers 0.5-10.0% LAB 2615-3(LOIN C) Methemoglob in/Hemoglob in.total 0.6 0.0-1. 5 % LAB 33075-3(KM NC) Deoxyhemogl obin/Hemogl obin.total 0.0 0.0-5. 0 % Performed By: #### 2030-5 ## ## STEFANO TROY ([id number]) [facility] ([facility] [address] [place] [address] ACTIVATED CLOTTING TIME Collected: 10/2023 10:40 AM Status: F Source: [facility] TYPE CODE TESTS RESULT OUT OF RANGE REFERENCE UNITS LAB 3184-9([facility]) Activated clotting time 129 82-174 sec Result Comment: Target ACT r damion will vary based on the patient population, clinical status, and surgical intervention occurring. Performed By: #### 3184-9 ## ## STEFANO TROY ([id number]) [facility] ([facility] [address] [place] [address] GAS AND CO AND ELECTROLYTES PANEL Collected: 08/10/2024 10:06 AM Status: F Source: [facility] TYPE CODE TESTS RESULT OUT OF RANGE REFERENCE UNITS LAB 2744-1(LOINC) pH 7.42 7.38-7.42 pH LAB 2019-8(LOINC) Carbon dioxide 35 Low 38-42 mm Hg LAB 2703-7(LOINC) Oxygen 350 High 85-95 mm Hg LAB 2708-6(LOINC) Oxygen saturation 100 94-100 % LAB 2714-4(LOINC) Oxyhemoglobin/ Hemoglobin.tot al 97.4 94.0-98.0 % LAB 83939-8(LOINC) Hematocrit 26.0 Low 36.0-46.0 % LAB 55855-6(LOINC) Sodium 135 Low 136-145 mmol/L LAB 13802-0(LOINC) Potassium 5.3 3.5-5.3 mmol/L LAB 21773-5(LOINC) Chloride 109 High 98-107 mmol/L LAB 93963-0(LOINC) Calcium.ionize d 1.14 1.10-1.33 mmol/L LAB 42581-9(LOINC) Glucose 182 High 74-99 mg/dL LAB 2518-9(LOINC) Lactate 1.2 0.4-2.0 mmol/L LAB 1925-7(LOINC) Base excess -1.5 -2.0-3.0 mmol/ L LAB 1960-4(LOINC) Bicarbonate 22.7 22.0-26.0 mmol /L LAB 83920-8(LOINC) Hemoglobin 8.8 Low 12.0-16.0 g/dL LAB 68743-5(LOINC) Anion gap 4 9 Low 10-25 mmo/L LAB 8310-5(LOINC) Body temperature 37.0 degrees Celsius Result Comment: NOTE: Patien t Results are Not Corrected for Temperature LAB 3150-0(LOINC) Oxygen/Gas.tot al 80 % Performed By: #### 53835-0 # ### STEFANO TROY ([id number]) [facility] ([facility] [address] [place] [address] CARBOXYHEMOGLOBIN/HEMOGLOBIN.TOTAL Rosmery ected: 08/10/2024 10:06 AM Status: F Source: [facility] TYPE CODE TESTS RESULT OUT OF RANGE REFERE NCE UNITS LAB 53004-7(KM NC) Hemoglobin 8.8 Low 12.0-1 6.0 g/dL LAB 2714-4(LOIN C) Oxyhemoglob in/Hemoglob in.total 97.4 94.0-9 8.0 % LAB 2030-5(LOIN C) Carboxyhemo globin/Hemo globin.tota l 1.6 % Result Comment: Ref Values Non-Smokers 0.5-1.5% Smokers 0.5-10.0% LAB 2615-3(LOIN C) Methemoglob in/Hemoglob in.total 1.0 0.0-1. 5 % LAB 95542-9(KM NC) Deoxyhemogl obin/Hemogl obin.total 0.0 0.0-5. 0 % Performed By: #### 2030-5 ## ## STEFANO TROY ([id number]) [facility] ([facility] [address] [place] [address] ACTIVATED CLOTTING TIME Collected: 10/2023 10:04 AM Status: F Source: [facility] TYPE CODE TESTS RESULT OUT OF RANGE REFERENCE UNITS LAB 3184-9(LOINC) Activated clotting time 625 High 82-174 sec Result Comment: Target ACT r damion will vary based on the patient population, clinical status, and surgical intervention occurring. Performed By: #### 3184-9 ## ## STEFANO TROY ([id number]) [facility] [address] [place] [address] GAS AND CO AND ELECTROLYTES PANEL Collected: 08/10/2024 9:40 AM Status: F Source: [facility] TYPE CODE TESTS RESULT OUT OF RANGE REFERENCE UNITS LAB 2744-1([facility]) pH 7.42 7.38-7.42 pH LAB 2019-8([facility]) Carbon dioxide 35 Low 38-42 mm Hg LAB 2703-7(INC) Oxygen 356 High 85-95 mm Hg LAB 2708-6([facility]) Oxygen saturation 100 94-100 % LAB 2714-4(INC) Oxyhemoglobin/ Hemoglobin.tot al 97.6 94.0-98.0 % LAB 58476-7(LOINC) Hematocrit 26.0 Low 36.0-46.0 % LAB 97887-4(LOINC) Sodium 136 136-145 mmol/L LAB 96662-8(LOINC) Potassium 5.0 3.5-5.3 mmol/L LAB 48265-2(LOINC) Chloride 108 High 98-107 mmol/L LAB 95176-1(INC) Calcium.ionize d 1.12 1.10-1.33 mmol/L LAB 26274-5(LOINC) Glucose 175 High 74-99 mg/dL LAB 2518-9(LOINC) Lactate 1.2 0.4-2.0 mmol/L LAB 1925-7(LOINC) Base excess -1.5 -2.0-3.0 mmol/ L LAB 1960-4(LOINC) Bicarbonate 22.7 22.0-26.0 mmol /L LAB 07374-8(LOINC) Hemoglobin 8.8 Low 12.0-16.0 g/dL LAB 96631-6(LOINC) Anion gap 4 10 10-25 mmo/L LAB 8310-5(LOINC) Body temperature 37.0 degrees Celsius Result Comment: NOTE: Ureil t Results are Not Corrected for Temperature Performed By: #### 31957-9 # ### STEFANO TROY ([id number]) [facility] ([facility] [address] [place] [address] CARBOXYHEMOGLOBIN/HEMOGLOBIN.TOTAL Rosmery ected: 08/10/2024 9:40 AM Status: F Source: [facility] TYPE CODE TESTS RESULT OUT OF RANGE REFERE NCE UNITS LAB 26856-7(KM NC) Hemoglobin 8.8 Low 12.0-1 6.0 g/dL LAB 2714-4(LOIN C) Oxyhemoglob in/Hemoglob in.total 97.6 94.0-9 8.0 % LAB 2030-5(LOIN C) Carboxyhemo globin/Hemo globin.tota l 1.4 % Result Comment: Ref Values Non-Smokers 0.5-1.5% Smokers 0.5-10.0% LAB 2615-3(LOIN C) Methemoglob in/Hemoglob in.total 0.8 0.0-1. 5 % LAB 32836-4(KM NC) Deoxyhemogl obin/Hemogl obin.total 0.2 0.0-5. 0 % Performed By: #### 2030-5 ## ## STEFANO TROY ([id number]) [facility] ([facility] [address] [place] [address] ACTIVATED CLOTTING TIME Collected: 08/10/2024 9:37 AM Status: F Source: [facility] TYPE CODE TESTS RESULT OUT OF RANGE REFERENCE UNITS LAB 3184-9(LOINC) Activated clotting time 612 High 82-174 sec Result Comment: Target ACT r damion will vary based on the patient population, clinical status, and surgical intervention occurring. Performed By: #### 3184-9 ## ## STEFANO TROY ([id number]) [facility] ([facility] [address] [place] [address] GAS PANEL Collected: 08/10/2024 9:31 AM Status: F Source: [facility] TYPE CODE TESTS RESULT OUT OF RANGE REFERENCE UNITS LAB 2746-6(LOINC) pH 7.40 7.33-7.43 pH LAB 2020-4(LOINC) Carbon dioxide 39 Low 41-51 mm Hg LAB 2705-2(LOINC) Oxygen 53 High 35-45 mm Hg LAB 2711-0([facility]) Oxygen saturation 88 High 45-75 % LAB 2716-9([facility]) Oxyhemoglobin/H emoglobin.total 86.3 High 45.0-75.0 % LAB 49108-2([facility]) Hematocrit 26.0 Low 36.0-46.0 % LAB 50900-7([facility]) Sodium 136 136-145 mmol/L LAB 71302-2(INC) Potassium 5.3 3.5-5.3 mmol/L LAB 12138-6([facility]) Chloride 106 98-107 mmol/L LAB 64526-4([facility]) Calcium.ionized 1.13 1.10-1.33 mmol/L LAB 10669-9([facility]) Glucose 176 High 74-99 mg/dL LAB 2519-7([facility]) Lactate 1.1 0.4-2.0 mmol/L LAB 1927-3([facility]) Base excess -0.5 -2.0-3.0 mmol/ L LAB 18480-2([facility]) Bicarbonate 24.2 22.0-26.0 mmo l/L LAB 19237-4([facility]) Hemoglobin 8.7 Low 12.0-16.0 g/dL LAB 44309-0([facility]) Anion gap 4 11.0 10.0-25.0 mmo l/L LAB 8310-5([facility]) Body temperature 37.0 degrees Celsius Result Comment: NOTE: Patien t Results are Not Corrected for Temperature LAB 3150-0([facility]) Oxygen/Gas.tota l 75 % Performed By: #### 97076-9 # ### STEFANO TROY ([id number]) [facility] ([facility] [address] [place] [address] CARBOXYHEMOGLOBIN/HEMOGLOBIN.TOTAL Rosmery ected: 08/10/2024 9:31 AM Status: F Source: [facility] TYPE CODE TESTS RESULT OUT OF RANGE REFERENC E UNITS LAB 2031-09(LOIN C) Carboxyh emoglobi n/Hemogl obin.tot al 1.5 % Result Comment: Ref Values Non-Smokers 0.5-1.5% Smokers 0.5-10.0% LAB 2617-9(LOIN C) Methemog lobin/He moglobin .total 0.7 0.0-1.5 % Performed By: #### 2032-1 ## ## STEFANO TROY ([id number]) [facility] ([facility] [address] [place] [address] GAS AND CO AND ELECTROLYTES PANEL Collected: 08/10/2024 9:27 AM Status: F Source: [facility] TYPE CODE TESTS RESULT OUT OF RANGE REFERENCE UNITS LAB 2744-1(LOINC) pH 7.45 High 7.38-7.42 pH LAB 2019-8(LOINC) Carbon dioxide 34 Low 38-42 mm Hg LAB 2703-7([facility]) Oxygen 396 High 85-95 mm Hg LAB 2708-6(LOINC) Oxygen saturation 100 94-100 % LAB 2714-4(INC) Oxyhemoglobin/ Hemoglobin.tot al 98.0 94.0-98.0 % LAB 25199-8(LOINC) Hematocrit 26.0 Low 36.0-46.0 % LAB 51632-9(LOINC) Sodium 135 Low 136-145 mmol/L LAB 23628-6(LOINC) Potassium 6.0 High 3.5-5.3 mmol/L LAB 66288-2(LOINC) Chloride 108 High 98-107 mmol/L LAB 42971-6(LOINC) Calcium.ionize d 1.09 Low 1.10-1.33 mmol/L LAB 06698-1(LOINC) Glucose 174 High 74-99 mg/dL LAB 2518-9(LOINC) Lactate 1.2 0.4-2.0 mmol/L LAB 1925-7(LOINC) Base excess -0.2 -2.0-3.0 mmol/ L LAB 1960-4(LOINC) Bicarbonate 23.6 22.0-26.0 mmol /L LAB 49194-2(LOINC) Hemoglobin 8.6 Low 12.0-16.0 g/dL LAB 93870-4(LOINC) Anion gap 4 9 Low 10-25 mmo/L LAB 8310-5(LOINC) Body temperature 37.0 degrees Celsius Result Comment: NOTE: Patien t Results are Not Corrected for Temperature LAB 3150-0(LOINC) Oxygen/Gas.tot al 75 % Performed By: #### 27117-8 # ### STEFANO TROY ([id number]) [facility] ([facility] [address] [place] [address] CARBOXYHEMOGLOBIN/HEMOGLOBIN.TOTAL Rosmery ected: 08/10/2024 9:27 AM Status: F Source: [facility] TYPE CODE TESTS RESULT OUT OF RANGE REFERE NCE UNITS LAB 31618-2(KM NC) Hemoglobin 8.6 Low 12.0-1 6.0 g/dL LAB 2714-4(LOIN C) Oxyhemoglob in/Hemoglob in.total 98.0 94.0-9 8.0 % LAB 2030-5(LOIN C) Carboxyhemo globin/Hemo globin.tota l 1.5 % Result Comment: Ref Values Non-Smokers 0.5-1.5% Smokers 0.5-10.0% LAB 2615-3(LOIN C) Methemoglob in/Hemoglob in.total 0.4 0.0-1. 5 % LAB 56663-1(KM NC) Deoxyhemogl obin/Hemogl obin.total 0.0 0.0-5. 0 % Performed By: #### 2030-5 ## ## STEFANO TROY ([id number]) [facility] ([facility] [address] [place], [place] [id number] ACTIVATED CLOTTING TIME Collected: 08/10/2024 9:25 AM Status: F Source: [facility] TYPE CODE TESTS RESULT OUT OF RANGE REFERENCE UNITS LAB 3184-9(LOINC) Activated clotting time 693 High 82-174 sec Result Comment: Target ACT r damion will vary based on the patient population, clinical status, and surgical intervention occurring. Performed By: #### 3184-9 ## ## STEFANO TROY ([id number]) [facility] ([facility] [address] [place] [address] ANESTHESIA INTRAOPERATIVE ANASTASIA Observed: 08/10/2024 9:10 AM Status: F Source: [facility] - Dept of Anesthesiology [facility] [address] and TRANSESOPHAGEAL ECHOCARDIOGRAM REPORT Patient Name: BOB Hancock Physician: [id number] Bonifacio Olmedo DO Study Date: 08/10/2024 Ordering Provider: [id number] BONIFACIO OLMEDO MRN/PID: [id number] Fellow: Nurse: Date of /Age: 3 1950 / 73 years General Matcher: Gender assigned at F Additional Staff: : BSA / BMI: m2 / kg/m2 Study Type: ANESTHESIA INTRAOPERATIVE ANASTASIA Diagnosis/ICD: Aneurysm of the ascending aorta, without rupture-I71.21 CPT Code: ANASTASIA Complete-01275; Doppler Limited-08517; Color Doppler-48925 PHYSICIAN INTERPRETATION: Left Ventricle: The left ventricular [...] Camron: 1.00 PulmV Sys Camron: 33.20 cm/s 15054 Bonifacio Olmedo Electronically signed on 08/10/2024 at 1:09:56 PM Final GAS AND CO AND ELECTROLYTES PANEL Collected: 08/10/2024 8:47 AM Status: F Source: [facility] TYPE CODE TESTS RESULT OUT OF RANGE REFERENCE UNITS LAB 2744-1(LOINC) pH 7.38 7.38-7.42 pH LAB 2019-8(LOINC) Carbon dioxide 38 38-42 mm Hg LAB 2703-7(LOINC) Oxygen 318 High 85-95 mm Hg LAB 2708-6(LOINC) Oxygen saturation 100 94-100 % LAB 2714-4(LOINC) Oxyhemoglobin/ Hemoglobin.tot al 97.6 94.0-98.0 % LAB 56288-8(LOINC) Hematocrit 33.0 Low 36.0-46.0 % LAB 20344-5(LOINC) Sodium 138 136-145 mmol/L LAB 97393-4(LOINC) Potassium 3.6 3.5-5.3 mmol/L LAB 59456-9(LOINC) Chloride 108 High 98-107 mmol/L LAB 90465-4(LOINC) Calcium.ionize d 1.21 1.10-1.33 mmol/L LAB 33965-8(LOINC) Glucose 141 High 74-99 mg/dL LAB 2518-9(LOINC) Lactate 1.2 0.4-2.0 mmol/L LAB 1925-7(LOINC) Base excess -2.3 Low -2.0-3.0 mmol/ L LAB 1960-4(LOINC) Bicarbonate 22.5 22.0-26.0 mmol /L LAB 11580-5(LOINC) Hemoglobin 10.9 Low 12.0-16.0 g/dL LAB 52053-8(LOINC) Anion gap 4 11 10-25 mmo/L LAB 8310-5(LOINC) Body temperature 37.0 degrees Celsius Result Comment: NOTE: Patien t Results are Not Corrected for Temperature LAB 3150-0(LOINC) Oxygen/Gas.tot al 100 % Performed By: #### 08865-9 # ### STEFANO TROY ([id number]) [facility] ([facility] [address] [place] [address] CARBOXYHEMOGLOBIN/HEMOGLOBIN.TOTAL Rosmery ected: 08/10/2024 8:47 AM Status: F Source: [facility] TYPE CODE TESTS RESULT OUT OF RANGE REFERE NCE UNITS LAB 48025-7(KM NC) Hemoglobin 10.9 Low 12.0-1 6.0 g/dL LAB 2714-4(LOIN C) Oxyhemoglob in/Hemoglob in.total 97.6 94.0-9 8.0 % LAB 2030-5(LOIN C) Carboxyhemo globin/Hemo globin.tota l 1.7 % Result Comment: Ref Values Non-Smokers 0.5-1.5% Smokers 0.5-10.0% LAB 2615-3(LOIN C) Methemoglob in/Hemoglob in.total 0.7 0.0-1. 5 % LAB 83922-8(KM NC) Deoxyhemogl obin/Hemogl obin.total 0.0 0.0-5. 0 % Performed By: #### 2030-5 ## ## STEFANO TROY ([id number]) [facility] ([facility] [address] [id number] ACTIVATED CLOTTING TIME Collected: 08/10/2024 8:44 AM Status: F Source: [facility] TYPE CODE TESTS RESULT OUT OF RANGE REFERENCE UNITS LAB 3184-9(LOINC) Activated clotting time 579 High 82-174 sec Result Comment: Target ACT r damion will vary based on the patient population, clinical status, and surgical intervention occurring. Performed By: #### 3184-9 ## ## STEFANO TROY ([id number]) [facility] ([facility] [address] [id number] SURGICAL PATHOLOGY STUDY Observed: 08/10 8:30 AM Status: F Source: [facility] Order Comment: Pre-op diagno sis: Aneurysm of ascending aorta without rupture ([facility]) [I71.21] Pathology report.total SEE COMMENT Surgical Pathology Case: [id number] Authorizing Provider: Tania Cedillo MD Collected: 08/10/2024 0830 Ordering Location: [facility] OR Received: 08/10/2024 1303 Pathologist: Marisela Orlando [...] diagnosis: Aneurysm of ascending aorta without rupture ([facility]) [I71.21] Path report.gross observation SEE COMMENT A: Received in formalin, labeled with the patient's name and hospital number and "aortic tissue", are multiple segments of aortic tissue aggregating to 12.2 x 6.8 x 0.2 cm. The wall is 0.2 cm in thickness. The intimal surface does not demonstrate calcific atherosclerosis. The advential surface demonstrates an area of mild hemorrhage. [place] sections are submitted in one cassette. TAVO CARBOXYHEMOGLOBIN/HEMOGLOBIN.TOTAL Rosmery ected: 08/10/2024 7:59 AM Status: F Source: [facility] TYPE CODE TESTS RESULT OUT OF RANGE REFERE NCE UNITS LAB 21944-3(KM NC) Hemoglobin 12.0 12.0-1 6.0 g/dL LAB 2714-4(LOIN C) Oxyhemoglob in/Hemoglob in.total 98.2 High 94.0-9 8.0 % LAB 2030-5(LOIN C) Carboxyhemo globin/Hemo globin.tota l 1.5 % Result Comment: Ref Values Non-Smokers 0.5-1.5% Smokers 0.5-10.0% LAB 2615-3(LOIN C) Methemoglob in/Hemoglob in.total 0.3 0.0-1. 5 % LAB 65088-1(KM NC) Deoxyhemogl obin/Hemogl obin.total 0.0 0.0-5. 0 % Performed By: #### 2030-5 ## ## STEFANO TROY ([id number]) [facility] ([facility] [address] [place] [address] GAS AND CO AND ELECTROLYTES PANEL Collected: 08/10/2024 7:59 AM Status: F Source: [facility] TYPE CODE TESTS RESULT OUT OF RANGE REFERENCE UNITS LAB 2744-1(LOINC) pH 7.41 7.38-7.42 pH LAB 2019-8(LOINC) Carbon dioxide 35 Low 38-42 mm Hg LAB 2703-7(LOINC) Oxygen 225 High 85-95 mm Hg LAB 2708-6(LOINC) Oxygen saturation 100 94-100 % LAB 2714-4(INC) Oxyhemoglobin/ Hemoglobin.tot al 98.2 High 94.0-98.0 % LAB 01853-7(LOINC) Hematocrit 36.0 36.0-46.0 % LAB 75928-6(LOINC) Sodium 139 136-145 mmol/L LAB 71406-5(LOINC) Potassium 3.6 3.5-5.3 mmol/L LAB 61920-0(LOINC) Chloride 107 98-107 mmol/L LAB 96932-8(LOINC) Calcium.ionize d 1.23 1.10-1.33 mmol/L LAB 26611-0(LOINC) Glucose 127 High 74-99 mg/dL LAB 2518-9(LOINC) Lactate 1.5 0.4-2.0 mmol/L LAB 1925-7(LOINC) Base excess -2.0 -2.0-3.0 mmol/ L LAB 1960-4(LOINC) Bicarbonate 22.2 22.0-26.0 mmol /L LAB 90596-4(LOINC) Hemoglobin 12.0 12.0-16.0 g/dL LAB 53092-1(LOINC) Anion gap 4 13 10-25 mmo/L LAB 8310-5(LOINC) Body temperature 37.0 degrees Celsius Result Comment: NOTE: Patinesha t Results are Not Corrected for Temperature LAB 3150-0(LOINC) Oxygen/Gas.tot al 60 % Performed By: #### 86283-3 # ### STEFANO TROY ([id number]) [facility] ([facility] [address] [place] [address] ACTIVATED CLOTTING TIME Collected: 08/10/2024 7:57 AM Status: F Source: [facility] TYPE CODE TESTS RESULT OUT OF RANGE REFERENCE UNITS LAB 3184-9([facility]) Activated clotting time 93 82-174 sec Result Comment: Target ACT r damion will vary based on the patient population, clinical status, and surgical intervention occurring. Performed By: #### 3184-9 ## ## STEFANO TROY ([id number]) [facility] ([facility] [address] [place] [address] VERAB/VERIFY ABORH Collected: 7:11 AM Status: F Source: [facility] Order Comment: This is for confirming/verifying history of ABORh on file for transfusion of blood products. If this is not for transfusion, please order an ABO/RH [[id number]]. If you have any questions or unsure what to order, please call the blood bank. TYPE CODE TESTS RESULT OUT OF RANGE REFERENCE UNITS LAB 883-9([facility]) ABO group O LAB 1305-2([facility]) D Ag POS Performed By: #### VERAB ### # STEFANO TROY ([id number]) [facility] ([facility]) [address] [place] [address] [place] GLUCOSE Collected: 7:07 AM Status: F Source: [facility] TYPE CODE TESTS RESULT OUT OF RANGE REFERENCE UNITS LAB 2341-6([facility]) Glucose 113 High 74-99 mg/dL Performed By: #### 2341-6 ## ## STEFANO TROY ([id number]) [facility] ([facility] [address] [place] [address] ECG 12-LEAD Observed: 07/29/2024 10:46 AM Status: F Source: [facility] Ventricular Rate 59 Atrial Rate 59 P-R Interval 182 QRS Duration 86 Q-T Interval 428 QTC Calculation(Bazett) 423 P Verbank 44 R Verbank 2 T Verbank 12 QRS Count 10 Q Onset 220 P Onset 129 P Offset 200 T Offset 434 QTC Fredericia 425 Diagnosis Sinus bradycardia Nonspecific ST and T wave abnormality Abnormal ECG No previous ECGs available Confirmed by Santo Hargrove ([id number]) on 07/29/2024 2:34:55 PM STAPHYLOCOCCUS AUREUS.METHICILLIN RESISTANT ISOLATE Observed: 07/29/2024 10:41 AM Status: F Source: [facility] Test: Staphylococcus aureus/ MRSA colonization, Culture Specimen Source: Nares/Axilla/Groin Specimen Type: Swab Specimen Date: 07/29/2024 1041 Result Date: 07/31/2024 0741 Result Status: Final result Abnormal: No Resulting Lab: [facility] [address] [place] [address] CULTURE No Staphylococcus aureus isolated Performed By: #### 28753-9 # ### ZABRINA Villalba ([id number]) [facility] ([facility]) [address] [place] [address] XR CHEST 2 VIEWS Observed: 07/29/2024 10:18 AM Status: F Source: [facility] Interpreted By: Ni Ram, STUDY: Chest, 2 views. INDICATION: Signs/Symptoms:preop. COMPARISON: None. ACCESSION NUMBER(S): [id number] ORDERING CLINICIAN: TANIA CEDILLO FINDINGS: The cardiomediastinal silhouette size is within normal limits. There is no focal consolidation, edema or pneumothorax. No sizeable pleural effusion. IMPRESSION: 1. No acute cardiopulmonary process. MACRO: None. Signed by: Key Ram 07/30/2024 6:59 PM Dictation workstation: [id number] URINALYSIS COMPLETE W REFLEX CULTURE PANEL Collected: 07/29/2024 10:16 AM Status: F Source: [facility] TYPE CODE TESTS RESULT OUT OF RANGE REFERENCE UNITS LAB 03616-8(LOINC) Leukocytes 1-5 1-5, NONE /HPF LAB 67786-3(LOINC) Erythrocytes 1-2 NO NE, 1-2, 3-5 /HPF LAB 01050-3(LOINC) Epithelial cells.squamous 1-9 (SPARSE) Reference range not established. /HPF LAB 22604-0(LOINC) Mucus FEW Refer ence range not established. /LPF Performed By: #### 02267-5 # ### STEFANO TROY ([id number]) [facility] [place] [address] [place] [address] URINALYSIS COMPLETE W REFLEX CULTURE PANEL Collected: 07/29/2024 10:16 AM Status: F Source: [facility] TYPE CODE TESTS RESULT OUT OF RANGE REFERENCE UNITS LAB 5778-6(LOINC) Color Light-Yellow Lig ht-Yellow , Yellow, Dark-Yellow LAB 5767-9(LOINC) Appearance Clear Clear LAB 03659-2(LOINC) Specific gravity 1.029 1.005-1. 035 LAB 06843-0(LOINC) pH 5.5 5.0, 5.5, 6.0, 6.5, 7.0, 7.5, 8.0 LAB 62853-1(LOINC) Protein 10 (TRACE) NEGA TIVE, 10 (TRACE), 20 (TRACE) mg/dL LAB 91159-7(LOINC) Glucose Normal Normal mg/dL LAB 04964-6(LOINC) Erythrocytes NEGATIVE NEGATIVE LAB 81480-1(LOINC) Ketones NEGATIVE NEGATIVE mg/dL LAB 98595-0(LOINC) Bilirubin NEGATIVE NEGATIVE LAB 35031-6(LOINC) Urobilinogen Normal Normal mg/d L LAB 91323-8(LOINC) Nitrite NEGATIVE NEGATIVE LAB 17076-0(LOINC) Leukocyte esterase NEGATIVE NEGATIVE Performed By: #### 36826-8 # ### STEFANO TROY ([id number]) [facility] [place] [address] [place] [address] COMPLETE BLOOD COUNT W AUTO DIFFERENTIAL PANEL Collected: 07/29/2024 10:16 AM Status: F Source: [facility] TYPE CODE TESTS RESULT OUT OF RANGE REFERENCE UNITS LAB 6690-2(LOINC) Leukocytes 5.5 4.4-11.3 x10*3/ uL LAB 77039-2(LOINC ) Erythrocytes.nuc leated/100 leukocytes 0.0 0.0-0.0 /100 [...] 770-8(LOINC) Neutrophils/100 leukocytes 54.4 40.0-80.0 % LAB 49608-9(LOINC ) Granulocytes.imm ature/100 leukocytes 0.4 0.0-0.9 % [...] of the absolute cell counts (cells/uL). LAB 26336-7(LOINC ) Granulocytes.imm ature 0.02 0.00-0.50 x10*3/uL LAB 731-0(LOINC) Lymphocytes 1.79 0.80-3.00 x10*3 /uL LAB 742-7(LOINC) Monocytes 0.53 0.05-0.80 x10*3/u L LAB 711-2(LOINC) Eosinophils 0.15 0.00-0.40 x10*3 /uL LAB 704-7(LOINC) Basophils 0.02 0.00-0.10 x10*3/u L Performed By: #### 97504-5 # ### STEFANO TROY ([id number]) [facility] [place] [address] [place] [address] PT AND APTT PANEL Collected: 10:16 AM Status: F Source: [facility] Order Comment: The APTT is n o longer used for monitoring Unfractionated Heparin Therapy. For monitoring Heparin Therapy, use the Heparin Assay. TYPE CODE TESTS RESULT OUT OF RANGE REFERENCE UNITS LAB 5902-2(LOINC) Coagulation tissue factor induced 11.2 9.8-12.8 seconds LAB 6301-6(LOINC) Coagulation tissue factor induced.INR 1.0 0.9-1.1 NA LAB 05634-7(LOINC) Coagulation surface induced 34 27-38 seconds Performed By: #### 70332-9 # ### STEFANO TROY ([id number]) [facility] [place] [address] [place] [address] C REACTIVE PROTEIN Collected: 10:16 AM Status: F Source: [facility] TYPE CODE TESTS RESULT OUT OF RANGE REFERENCE UNITS LAB 1987-(LOINC) C reactive protein <0.10 <1.00 mg/dL Performed By: #### 1988-01 ## ## STEFANO TROY ([id number]) [facility] [place] [address] [place] [address] COMPREHENSIVE METABOLIC 2000 PANEL Collected: 07/29/2024 10:16 AM Status: F Source: [facility] TYPE CODE TESTS RESULT OUT OF RANGE REFERENCE UNITS LAB 2345-7(LOINC) Glucose 105 High 74-99 mg/dL LAB 2951-2(LOINC) Sodium 137 136-145 mmol/L LAB 2823-3(LOINC) Potassium 4.5 3.5-5.3 mmol/L LAB 2075-0(LOINC) Chloride 104 98-107 mmol/L LAB 2027-9(LOINC) Carbon dioxide 28 21-32 mmo l/L LAB 62283-2(LOINC ) Anion gap 10 10-20 mmol/L LAB 3094-0(LOINC) Urea nitrogen 29 High 6-23 mg/d L LAB 2160-0(LOINC) Creatinine 0.89 0.50-1.05 mg/dL LAB 00975-3(LOINC ) Glomerular filtration rate/1.73 sq M.predicted 68 >60 mL/min/ 1.73m*2 Result Comment: Calculations of estimated GFR are performed using the 2020 CKD- EPI Study Refit equation without the race variable for the IDMS-Traceable creatinine methods. https://jasn.asnjournals.org/content/early//ASN.6892724845 LAB 19966-9(LOINC ) Calcium 9.6 8.6-10.3 mg/dL LAB 22203-6(LOINC ) Albumin 4.5 3.4-5.0 g/dL LAB 6768-6(LOINC) Alkaline phosphatase 85 33-136 U/L LAB 2885-2(LOINC) Protein 6.7 6.4-8.2 g/dL LAB 72942-1(LOINC ) Aspartate aminotransferase 18 9-39 U/L LAB 1975-2(LOINC) Bilirubin 0.7 0.0-1.2 mg/dL LAB 1743-4(LOINC) Alanine aminotransferase 17 7-45 U/L Result Comment: Patients kannan ated with Sulfasalazine may generate falsely decreased results for ALT. Performed By: #### 22700-7 # ### STEFANO TROY ([id number]) [facility] ([facility] [address] [place] [address] BLOOD TYPE AND INDIRECT ANTIBODY SCREEN PANEL Collected: 07/29/2024 10:16 AM Status: F Source: [facility] TYPE CODE TESTS RESULT OUT OF RANGE REFERENCE UNITS LAB 883-9(LOINC) ABO group O LAB 1305-2(LOINC) D Ag POS Result Comment: 2nd ABO test required. Order and Collect VERAB LAB 890-4(LOINC) Blood group antibody screen NEG Performed By: #### 29209-1 # ### STEFANO TROY ([id number]) [facility] ([facility]) [address] [place] [address], [place] [address] DAVID SCREENING W OSVALDO Observed: 9:38 AM Status: F Source: [facility] * * *Final Report* * * DATE OF EXAM: Jul 23 2024 9:38AM WRW 0582 - DAVID SCREENING W OSVALDO / PROCEDURE REASON: Screening mammogram for breast cancer * * * * Physician Interpretation * * * * RESULT: [facility] [address] [place] [address] HISTORY: Patient is 73 years old and [...] Etta Garrison M.D. Electronically signed on: 07/24/2024 Targeting Acquisition Officer: JOANN Transcribe Date/Time: Jul 23 2024 9:07A Dictated by: ETTA GARRISON MD This examination was interpreted and the report reviewed and electronically signed by: ETTA GARRISON MD on Jul 24 2024 4:33PM EST [id number] Observed: 07/23/2024 9:10 AM Status: COMPLETED Source: [facility] HNO ID: [id number] Author: CORA BAIRD, Mammo Coty Service: ? Author Type: Cage Fighter Type: Progress Notes Filed: 07/23/2024 09:04 Note [...] PATIENT PRESENTS WITH AN IMPLANTABLE OR ATTACHED BED AND BREAKFAST INNKEEPER: No RADIOLOGY DEPARTMENT: Mammography PERIPHERAL IV DATA: Not applicable SIGNED BY: Mary Hunt July 23, 2024 9:04 AM CARDIAC CATHETERIZATION PROCEDURE Observed: 06/09/2024 12:09 PM Status: F Source: [facility], Cath L , [address] [place] [address] Cardiovascular Catheterization Report Patient Name: BOB JACOB Performing Physician: [id number] Blue MD Study Date: 06/09/2024 Verifying Physician: Elizabeth Blue MD MRN/PID: [id number] Senior Product Manager/Co-Scrub: Ordering Provider: [id number] CEDILLO Date of /Age: 3 1950 / 73 years Senior Product Manager: Gender: F Fellow: Surgeon: Study: Left Heart Cath Additional Study: Coronary Arteriogram Indications: BBO JACOB is a 74 year old female [...] a modified Seldinger technique. Subsequently a 6 Kiswahili sheath was placed retrograde in the right [...] Left Heart Cath (visualization of coronaries) and [id number] Fly Blue MD Performing Physician Final ALLERGIES DATE TYPE / CODE NAME / CODE REACTION SEVERITY SOURCE 05/14/2024 DRUG/612833625( SNOMED CT) ADHESIVE TAPE-SILICONES Itching [facility] 05/14/2024 DRUG INGREDI/9852215 03(SNOMED CT) AMLODIPINE Swelling [facility] 05/14/2024 DRUG INGREDI/6185957 03(SNOMED CT) DOXAZOSIN Dizziness [facility] 05/14/2024 DRUG INGREDI/2180203 03(SNOMED CT) LISINOPRIL Cough [facility] 05/14/2024 DRUG INGREDI/4627736 03(SNOMED CT) MELOXICAM Other [facility] 01/02/2024 DRUG INGREDI/4504185 03(SNOMED CT) MELOXICAM Myalgia [facility] 08/26/2023 DRUG INGREDI/0186100 03(SNOMED CT) HOUSE DUST MITE COUGH Low [facility] 11/06/2018 Drug Class/161400292 (SNOMED CT) ADHESIVE RASH Med [facility] 03/09/2010 DRUG INGREDI/3499238 03(SNOMED CT) LISINOPRIL COUGH Low [facility] 01/30/2010 DRUG INGREDI/0874015 03(SNOMED CT) AMLODIPINE BESYLATE SWELLING Low [facility] ENCOUNTERS ADMIT/DISCHARGE ACCOUNT NUMBER ADMITTING ENCOUNTER CLASS LOCATION SOURCE 10/28/2024/10/28/19 [id number] Ambulatory [facility]GAV[facility] 10/27/2024 [id number] Ambulatory [facility]:GAVIN [facility] 10/13/2024/10/13/19 [id number] [facility] 10/12/2024/10/12/19 [id number] [facility] 10/07/2024/10/07/19 [id number] [id number]10[facility]07[facility]19 25 [id number] [facility] [id number] [facility] 09/30/2024/09/30/19 [id number] Ambulatory Building[id number] 08/28/2024/08/28/20 24 [id number] [facility] 08/27/2024/08/27/20 24 [id number] Ambulatory [facility] [id number] [facility] 08/25/2024 [id number] Ambulatory Building:[facility] 08/10/2024/08/10/20 24 [id number] Inpatient Encounter Building:[facility] 08/10/2024 [id number] TANIA CEDILLO Inpatient Encounter Building:[facility] Hughm: J Luis d: [address] [facility] 07/29/2024/07/29/20 24 [id number] Ambulatory Building:[facility] 07/29/2024/07/29/20 24 [id number] Ambulatory Building:[facility] 07/29/2024/07/29/20 24 [id number] Ambulatory Building:[facility] 07/23/2024/07/23/20 24 [id number] Ambulatory [facility] HospitalBuil ding:WODM [facility] 07/22/2024/07/22/20 24 [id number] Ambulatory Building:[facility] 06/24/2024/06/24/20 24 [id number] Ambulatory [facility] [id number] [facility] 06/09/2024/06/09/20 24 [id number] FLY BLUE Ambulatory Building:[facility] CVEPIRoom: [id number] OOLBed: [address] [facility] PAYERS ENCOUNTER GUARANTOR PAYER SUBSCRIBER SOURCE 10/28/2024 Primary Insurance:[facility] MEDICARE ADVANTAGE [facility] Number: [id number] Date:8716-13-12Qpmw Name:Hailey ZAPATA: [id number] [place] [id number] [facility] 10/27/2024 Primary Insurance:[facility] MEDICARE ADVANTAGE OPolicy Number: [id number] Date:1425-99-99Zcmw Name:Hailey ZAPATA: [id number] [place] [address] [facility] 10/13/2024 Primary Insurance:[facility] MEDICARE ADVANTAGE OPolicy Number: [id number] Date:0830-89-22Efvq Name:Hailey ZAPATA: [id number] [place] [address] [facility] 10/12/2024 Primary Insurance:[facility] MEDICARE ADVANTAGE OPolicy Number: [id number] Date:2162-65-83Snbi Name:Hailey ZAPATA: [id number] [place] [address] [facility] 10/07/2024 BOB BETTENCOURTB: [place], [place] [address]Cin: (HP) Primary Insurance:[employer] MEDICAREPolicy Number: [id number] Date:2023-09-09 BOB BETTENCOURTB: [id number] [place], [place] [address]Xme: (HP) [facility] 10/07/2024 BOB ZAPATA: [place], [place] [address]Qwx: (HP) Primary Insurance:[employer] MEDICAREPolicy Number: [id number] Date:2023-09-09 BOB BETTENCOURTB: [id number] [place], [place] [address]Yrj: (HP) [facility] 09/30/2024 BOB ZAPATA: [place], [place] [address]Maa: (HP) Primary Insurance:[employer] MEDICAREPolicy Number: [id number] Date:2023-09-09 BOB BETTENCOURTB: [id number] [place], [place] [address]Tng: (HP) [facility] 08/28/2024 Primary Insurance:[employer] MED[employer] ADVANTAGE HMOPolicy Number: [id number] Date:7663-26-47Ofow Name:Hailey ZAPATA: [id number] [place] [address] [facility] 08/27/2024 BOB BETTENCOURTB: [place], [place] [address]Fpc: () Primary Insurance:[facility] MEDICAREPolicy Number: [id number] Date:2023-09-09 BOB DREWRENITAB: [id number] [place], [place] [address]Rip: () [facility] 08/25/2024 BOB MARQUIS SGB: [place], [place] [address]Guy: () Primary Insurance:[facility] MEDICAREPolicy Number: [id number] Date:2023-09-09 BOB MARQUIS SGB: [id number] [place], [place] [address]Pvt: () [facility] 08/10/2024 BOB BENITEZ BETTENCOURTB: [place], [place] [address]Eym: () Primary Insurance:[facility] MEDICAREPolicy Number: [id number] Date:2023-09-09 BOB BENITEZ ZAPATA: [id number] [place], [place] [address]Omv: () [facility] 08/10/2024 BOB BETTENCOURTB: [place], [place] [address]Fjg: () Primary Insurance:[facility] MEDICAREPolicy Number: [id number] Date:2023-09-09 BOB ZAPATA: [id number] [place], [place] [address]Nrj: () [facility] 07/29/2024 BOB BETTENCOURTB: [place], [place] [address]Duw: () Primary Insurance:[facility] MEDICAREPolicy Number: [id number] Date:2023-09-09 BOB MARQUIS SGB: [id number] [place], [place] [address]Ufx: (HP) [facility] 07/29/2024 BOB MARQUIS SGB: [place], [place] [address]Asj: (HP) Primary Insurance:[employer] MEDICAREPolicy Number: [id number] Date:2023-09-09 BOB MARQUIS SGB: [id number] [place], [place] [address]Vxq: (HP) [facility] 07/29/2024 BOB ANNE SGB: [place], [place] [address]Dqs: () Primary Insurance:[employer] MEDICAREPolicy Number: [id number] Date:2023-09-09 BOB MARQUIS SGB: [id number] [place], [place] [address]Kif: (HP) [facility] 07/23/2024 Primary Insurance:[facility] MEDICARE ADVANTAGE OPolicy Number: [id number] Date:5781-97-45Wvhd Name:Hailey ZAPATA: [id number] [place] [address] [facility] 07/22/2024 BOB BETTENCOURTB: [place], [place] [address]Ifq: () Primary Insurance:[employer] MEDICAREPolicy Number: [id number] Date:2023-09-09 BOB ZAPATA: [id number] [place], [place] [address]Zny: () [facility] 06/24/2024 BOB ZAPATA: [place], [place] [address]Glg: () Primary Insurance:[employer] MEDICAREPolicy Number: [id number] Date:2023-09-09 BOB BETTENCOURTB: [id number] [place], [place] [address]Ahv: () [facility] 06/09/2024 BOB ZAPATA: [place], [place] [address]Obq: () Primary Insurance:[employer] MEDICAREPolicy Number: [id number] Date:2023-09-09 BOB ZAPATA: [id number] [place] [address] [facility]
[2024-11-02 14:51] VITALS: BMI 23.1
[2025-06-04 20:36] VITALS: BP 148/79; PULSE 82; RESP 16; TEMP 36.8; O2SAT 100; BMI 24.5
[2025-06-04 21:30] VITALS: BP 133/59; PULSE 70; RESP 18; TEMP 36.7
[2025-06-04] MEDS: 0.9% Normal Saline (1000mL) 1,000 ML 1000 ML IV (22:11)
[2025-06-04] MEDS: Ampicillin/Sulbactam 3 GM in 0.9% Normal Saline (100mL MB+) 100 ML IV (22:25)
[2025-06-04 22:29] LABS: Hematocrit 41.9 % (37-47); Hemoglobin 13.6 g/dL (12.0-15.0); Immature Granulocytes Count 0.020 X10^3/uL (0.0-0.0); Mean Corp Hgb Conc 32.5 g/dL (32-36); Mean Corpuscular Volume 91.7 fL (81-99); Mean Platelet Vol. 9.7 fl (6.2-12.0); NRBC Flagged by Analyzer 0 % (0-5); Platelet Count 295 K/mm3 (150-450); RBC Distribution Width CV 13.3 % (11.6-14.6); RBC Distribution Width SD 44.7 fl (35.1-43.9); Red Blood Count 4.57 M/mm3 (4.2-5.4); White Blood Count 8.2 K/mm3 (4.4-11.0)
[2025-06-04 22:35] VITALS: BP 145/67; PULSE 64; RESP 12; TEMP 36.8; O2SAT 100
[2025-06-04 22:41] LABS: Anion Gap 13 (5-15); BUN 29 mg/dL (4-19); BUN/Creat Ratio 31.4 RATIO (10-20); Calcium,Total 9.2 mg/dL (7.6-11.0); Carbon Dioxide 21.9 mmol/L (21.0-32.0); Chloride 106 mmol/L (98-108); Estimated Creatinine Clearance 55.82 ml/min (50-250); Glucose 127 mg/dL (70-99); Potassium 3.6 mmol/L (3.3-5.1)
[2025-06-04 23:00] VITALS: BP 144/72; PULSE 70; RESP 17; TEMP 36.6; O2SAT 97
[2025-06-04 23:10] VITALS: BP 144/72; PULSE 72; RESP 19; TEMP 36.6; O2SAT 97
--- NOTE | 2025-06-04 23:53 | EX.ED.DYSGE1 ---
HPI History of Present Illness Chief Complaint: Itching Narrative Narrative: Patient is a 74-year-old female presenting to the emergency department for right upper extremity swelling and redness. Patient has a past medical history as below. Patient states that she was stung by a bee in the right thumb yesterday. She states that last night she had right thumb swelling but then today started to have swelling of her arm and redness streaking up her arm. She went to urgent care and they gave her a Kenalog shot and told her to take Benadryl. She states she took some Benadryl at 4 PM for some itching. She denies any GI symptoms including nausea, vomiting, diarrhea, abdominal pain, respiratory symptoms including shortness of breath or wheezing. Denies any other areas of itching or urticaria. Denies fever, chills, nausea, vomiting. Feels well otherwise. [facility] Medical History Kidney disease Arthritis CKD (chronic kidney disease) Bilateral pleural effusion Postoperative atrial fibrillation Mitral valve insufficiency Thoracic aortic aneurysm without rupture Breast cancer Essential hypertension Hypokalemia Acute diverticulitis Home Medications Medication Instructions Recorded Last Taken Type olopatadine 0.1 % eye drops 1 drp ophthalmic (eye) BID PRN dry 04/30/19 Unknown History eye(s) multivitamin 1 tab PO DAILY 03/11/24 Unknown History pravastatin 20 mg tablet 20 mg PO QDAY 03/11/24 Unknown History vit C 250 mg-vit E 90 mg-zinc 40 1 tab PO BID 03/11/24 Unknown History mg-copper 1 [id number] capsule (PreserVision AREDS-2) aspirin 81 mg tablet,delayed 81 mg PO QDAY 09/03/24 Unknown History release (Adult Low Dose Aspirin) beta carotene 10,000 unit capsule 7,500 mcg PO QDAY 09/03/24 Unknown History loratadine 10 mg capsule (Allergy 10 mg PO QDAY PRN allergy symptoms 09/03/24 Unknown History Relief (loratadine)) vitamin B complex-folic acid 1 1 tab PO DAILY 09/03/24 Unknown History mg-vit C 60 mg-biotin 300 mcg tablet metoprolol tartrate 25 mg tablet 25 mg PO BID #180 tabs 09/21/24 Unknown Rx spironolactone 25 mg tablet 25 mg PO DAILY #90 tabs 12/08/24 Unknown Rx acetaminophen 500 mg tablet 500 mg PO BID Aug 2024 01/18/25 Unknown History biotin 1,000 mcg chewable tablet 1,000 mcg PO QDAY 01/18/25 Unknown History fluticasone propionate 50 1 spray intranasal QDAY PRN nasal 01/18/25 Unknown History mcg/actuation nasal congestion spray,suspension Allergy/AdvReac Type Severity Reaction Status Date / Time adhesive tape Allergy Intermediate Itching Verified 06/04/25 20:36 Environmental Allergies: Allergy Itching Verified 06/04/25 20:36 Uncoded amlodipine AdvReac Severe pedal edema Verified 06/04/25 20:36 lisinopril AdvReac Severe Cough Verified 06/04/25 20:36 doxazosin AdvReac Unknown dizzy, Verified 06/04/25 20:36 loopy meloxicam AdvReac Unknown kidney Verified 06/04/25 20:36 problems Family History Mother Hypertension Colon cancer Father Heart disease Cancer Prostate Hypertension Brother Diabetes Hypertension Sister Cancer Ovarian, thyroid Retina hole Sister Cancer Thyroid Breast cancer Other Hypokalemia Surgical History Hx of CABG Hx of ascending aorta replacement (08/10/24) Surgical procedures, elective History of thoracentesis S/P left atrial appendage ligation History of lumpectomy of right breast History of breast reconstruction History of hysterectomy Acoustic neuroma Social History adopted: No household members: spouse number of children: 3 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 No acute distress HEENT: Head is normocephalic and atraumatic, sinuses nontender, pupils equal round and reactive. Nares are patent. Oropharynx and throat exams normal. Neck: Supple without lymphadenopathy nontender Cardiovascular: Regular rate and rhythm, no murmurs. No rubs or gallops. Normal S1 and S2 Respiratory: Clear to auscultation bilaterally. No wheezes, rales, rhonchi Abdominal: Soft and nontender. Normal bowel sounds. No guarding or rebound. Nonsurgical abdomen Extremities: There is swelling and erythema noted to the patient's right thumb, dorsal aspect of the hand and erythematous streaking up the inner arm from the hand to the axillary region. Radial pulses intact. Sensation and motor intact. Skin: No rash or redness. Neurological: Cranial nerves II through XII are grossly intact. Normal strength and sensation. Normal cerebellar function The rest of the physical exam is unremarkable Const Vital Signs: 06/04/25 20:36 06/04/25 21:30 06/04/25 22:35 Temperature 98.2 F 98.1 F 98.2 F Temperature Source Oral Oral Oral Pulse Rate 82 70 64 Respiratory Rate 16 18 12 Blood Pressure 148/79 H 133/59 H 145/67 H Blood Pressure Mean 102 83 93 Pulse Ox 100 100 Oxygen Delivery Method Room Air Room Air Room Air 06/04/25 23:00 06/04/25 23:10 Temperature 98 F 98 F Temperature Source Oral Pulse Rate 70 72 Respiratory Rate 17 19 H Blood Pressure 144/72 H 144/72 H Blood Pressure Mean 96 96 Pulse Ox 97 97 Oxygen Delivery Method Room Air MDM MDM MDM Narrative Medical decision making narrative: Patient is a 74-year-old female presenting to the emergency department for right hand swelling and erythema. Patient was seen and examined. Vitals are stable. Patient resting bed comfortably no acute distress. Differential includes but is not limited to: Localized allergic reaction, cellulitis, lymphangitis, no evidence of necrotizing fasciitis on exam. Less likely DVT With the erythema and warmth extending up the arm into the axillary region I think this is likely a cellulitis/lymphangitis. Fluid bolus given. Claritin given for itching. She has no other signs of an allergic reaction and the erythema and swelling is not only localized to the thumb where she was stung at. Considered DVT however the patient has evidence of cellulitis of the arm and this occurred after a bee sting. There are no signs of crepitus or necrotizing fasciitis on exam. Labs were ordered and patient was given IV antibiotics. CBC with no leukocytosis and normal hemoglobin. BMP with no significant abnormalities. Lactic within normal limits. Given the significant streaking up the arm and the patient and family reporting that it all worsened since this morning fairly acutely I do think the patient should be admitted for IV antibiotics and monitoring. They are agreeable. Patient admitted to the hospitalist, Dr. Leung for further management. Clinical impression: Cellulitis History & Record Review Discussion w/independent historian: Patient Lab Data Attestation: I reviewed the patient's lab results. Labs: Laboratory Results - last 24 hr 06/04/25 22:05 WBC 8.2 RBC 4.57 Hgb 13.6 Hct 41.9 MCV 91.7 MCH 29.8 MCHC 32.5 RDW Std Deviation 44.7 H RDW Coeff of Mark 13.3 Plt Count 295 MPV 9.7 Immature Gran % (Auto) 0.200 Neut % (Auto) 66.0 Lymph % (Auto) 20.9 [place] % (Auto) 9.4 Eos % (Auto) 3.4 Baso % (Auto) 0.1 Absolute Neuts (auto) 5.4 Absolute Lymphs (auto) 1.72 Nucleated RBC % 0 Sodium 140 Potassium 3.6 Chloride 106 Carbon Dioxide 21.9 Anion Gap 13 BUN 29 H Creatinine 0.91 Estim Creat Clear Calc 55.82 Est GFR (MDRD) Non-Af 66 BUN/Creatinine Ratio 31.4 H Glucose 127 H Lactic Acid 1.2 Calcium 9.2 Discharge Plan Triage Chief Complaint: Itching ED Provider: Julissa Mercado Dx/Rx/DC Orders Prescriptions: No Action olopatadine 0.1 % drops 1 drp OPHTHALMIC BID PRN (Reason: dry eye(s)) PreserVision AREDS-2 250-90-40-1 mg capsule 1 tab PO BID pravastatin 20 mg tablet 20 mg PO QDAY multivitamin Tablet 1 tab PO DAILY aspirin [Adult Low Dose Aspirin] 81 mg tablet,delayed release (DR/EC) 81 mg PO QDAY vit B complx-folic ac-C-biotin 1 mg-60 mg- 300 mcg tablet 1 tab PO DAILY beta carotene 10,000 unit capsule 7,500 mcg PO QDAY Rx Instructions: administer with a meal Allergy Relief (loratadine) 10 mg capsule 10 mg PO QDAY PRN (Reason: allergy symptoms) fluticasone propionate 50 mcg/actuation spray,suspension 1 spray intranasal QDAY PRN (Reason: nasal congestion) Rx Instructions: administer into each nostril acetaminophen 500 mg tablet 500 mg PO BID biotin 1,000 mcg tablet,chewable 1,000 mcg PO QDAY metoprolol tartrate 25 mg tablet 25 mg PO BID Qty: 180 3RF spironolactone 25 mg tablet 25 mg PO DAILY Qty: 90 3RF Primary Care Provider: Berna Parsons Referrals: Berna Parsons MD [Primary Care Provider, Internal Medicine] Print Language: Guyanese
[2025-06-05] VITALS (10 sets, daily range): BP systolic 119–176; BP diastolic 46–97; PULSE 56–79; RESP 15–17; TEMP 36.3–36.8; O2SAT 94–98; BMI 24.2; BMI 24.3
--- NOTE | 2025-06-05 00:07 | HP.PCM.HOS_ITS ---
[facility] - General General Date of Admission: 06/05/25 Date of Service: 06/05/25 Chief Complaint: Redness Streaking up Arm after Bee Sting. HPI Narrative BOB JACOB, is a 74 F with a past medical history of essential hypertension; on metoprolol twice daily plus spironolactone, hyperlipidemia; on pravastatin, CAD; s/p CABG, history of postoperative atrial fibrillation, history of ascending aortic aneurysm; s/p repair (08/2024), history of mitral valve insufficiency, CKD; stage I-II, history of Right breast cancer (2010); s/p lumpectomy and reconstruction, history of hysterectomy, history of acoustic neuroma; s/p removal, history of recurrent bilateral pleural effusions with subsequent eighth thoracentesis; with ~650 mL of blood-tinged fluid aspirated from the Right lung done here on November 16, 2024 and recent bee sting on her Right thumb on June 03, 2025 for which she was evaluated in urgent care on June 04, 2025 patient noted to have been complaining of increased itching and redness around the area with patient injected with Kenalog and advised to take as needed diphenhydramine for 7 to 10 days who presents to [facility] ER complaining of redness streaking up her right arm into her axilla with worsening itching. The patient states that she took some Benadryl at ~4 PM on June 04, 2025 for itching without significant lasting improvement so she decided to come back in for further evaluation and treatment. There was no report of fever, chills, nausea, vomiting, diarrhea, constipation, abdominal pain, chest pain, shortness of breath, palpitations, heart racing, lower extremity edema, dysuria, hematuria, headache or rash. In the ER she was noted to have warmth extending up her right arm into her axillary region with ER physician suspecting Cellulitis/Lymphangitis in the setting of recent bee sting with otherwise unremarkable laboratory studies and vital signs. She was then started on empiric IV ampicillin-sulbactam and admitted to the general medical floor with telemetric monitoring for ongoing care for state that is expected to extend beyond 2 midnights. [facility] [place] Medical History Kidney disease Arthritis CKD (chronic kidney disease) Bilateral pleural effusion Postoperative atrial fibrillation Mitral valve insufficiency Thoracic aortic aneurysm without rupture Breast cancer Essential hypertension Hypokalemia Acute diverticulitis Home Medications Medication Instructions Recorded Last Taken Type olopatadine 0.1 % eye drops 1 drp ophthalmic (eye) BID PRN dry 04/30/19 Unknown History eye(s) multivitamin 1 tab PO DAILY 03/11/24 Unkn own History pravastatin 20 mg tablet 20 mg PO QDAY 03/11/24 Unkno wn History vit C 250 mg-vit E 90 mg-zinc 40 1 tab PO BID 03/11/24 Unknown History mg-copper 1 cm-bbhzva-ythoem capsule (PreserVision AREDS-2) aspirin 81 mg tablet,delayed 81 mg PO QDAY 09/03/24 Un known History release (Adult Low Dose Aspirin) beta carotene 10,000 unit capsule 7,500 mcg PO QDAY Unknown History loratadine 10 mg capsule (Allergy 10 mg PO QDAY PRN al lergy symptoms 09/03/24 Unknown History Relief (loratadine)) vitamin B complex-folic acid 1 1 tab PO DAILY 09/03/24 Unknown History mg-vit C 60 mg-biotin 300 mcg tablet metoprolol tartrate 25 mg tablet 25 mg PO BID #180 tab s 09/21/24 Unknown Rx spironolactone 25 mg tablet 25 mg PO DAILY #90 tabs Unknown Rx acetaminophen 500 mg tablet 500 mg PO BID Aug 202409/02 Unknown History biotin 1,000 mcg chewable tablet 1,000 mcg PO QDAY 09/02 Unknown History fluticasone propionate 50 1 spray intranasal QDAY PRN nasal 01/18/25 Unknown History mcg/actuation nasal congestion spray,suspension Allergy/AdvReac Type Severity Reaction Status Date / Time adhesive tape Allergy Intermediate Itching Verified 06/04/25 20:36 Environmental Allergies: Allergy Itching Verified 06/04/25 20:36 Uncoded amlodipine AdvReac Severe pedal edema Verified 06/04/25 20:36 lisinopril AdvReac Severe Cough Verified 06/04/25 20:36 doxazosin AdvReac Unknown dizzy, Verified 06/04/25 20:36 loopy meloxicam AdvReac Unknown kidney Verified 06/04/25 20:36 problems Family History Mother Hypertension Colon cancer Father Heart disease Cancer Prostate Hypertension Brother Diabetes Hypertension Sister Cancer Ovarian, thyroid Retina hole Sister Cancer Thyroid Breast cancer Other Hypokalemia Surgical History Hx of CABG Hx of ascending aorta replacement (08/10/24) Surgical procedures, elective History of thoracentesis S/P left atrial appendage ligation History of lumpectomy of right breast History of breast reconstruction History of hysterectomy Acoustic neuroma Social History adopted: No household members: spouse number of children: 3 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 Eyes: Patient denies change in vision or discharge from eyes. ENT: Patient denies runny nose, sore throat or ear pain. Resp: Patient denies shortness of breath or cough. CV: Patient denies chest pain, palpitations, heart racing or lower extremity edema. GI: Patient denies abdominal pain, nausea, vomiting, diarrhea or constipation. : Patient denies dysuria or hematuria. MSK: Patient admits to redness and swelling of Right upper extremity after recent bee sting as per HPI. Skin: Patient has redness and streaking from her Right thumb to her axilla as per HPI. Psych: Patient denies symptoms uncontrolled depression or anxiety. Neuro: Patient denies headache, paresthesias or focal neurologic deficits. Allergy: Patient admits to persistent itching after recent bee sting but she denies lip swelling, tongue swelling or urticaria. Hematology: Patient denies easy bleeding or easy bruisability. Endocrinology: Patient denies polyuria, polydipsia, polyphagia or heat/cold intolerance. 14 point ROS otherwise negative except for positives noted above in HPI. Vital Signs Vital Signs Vital Signs: 06/04/25 20:36 06/04/25 21:30 06/04/25 22:35 Temperature 98.2 F 98.1 F 98.2 F Temperature Source Oral Oral Oral Pulse Rate 82 70 64 Respiratory Rate 16 18 12 Blood Pressure 148/79 H 133/59 H 145/67 H Blood Pressure Mean 102 83 93 Pulse Ox 100 100 Oxygen Delivery Method Room Air Room Air Room Air 06/04/25 23:00 06/04/25 23:10 Temperature 98 F 98 F Temperature Source Oral Pulse Rate 70 72 Respiratory Rate 17 19 H Blood Pressure 144/72 H 144/72 H Blood Pressure Mean 96 96 Pulse Ox 97 97 Oxygen Delivery Method Room Air Weight Weight: 166 lb 8 oz Body Mass Index (BMI) 24.5 Physical Exam Const alert, oriented x3, no apparent distress, average body habitus and healthy appearing General Appearance: cooperative HEENT normocephalic, head/scalp atraumatic, hearing grossly normal bilaterally and moist oral mucous membranes Eyes PERRL, EOMs intact bilaterally and conjunctivae normal Neck no lymphadenopathy and supple Resp normal respiratory effort, no retractions, no use of accessory muscles and clear to auscultation bilaterally Cardio regular rate and regular rhythm GI normal to inspection, nondistended, normoactive bowel sounds, soft to palpation, non-tender and non-distended Extremity Extremity Narrative: Patient has redness and warmth from the Right thumb extending into the Right axillary region. Skin Skin Narrative: Patient has redness and warmth from the Right thumb extending into the Right axillary region. Neuro oriented x3, CN's II-XII intact bilaterally, moves all extremities and no focal motor deficits Sensorium / Orientation: awake, alert, oriented to person, oriented to place and oriented to time Speech: speech normal Psych affect normal Results Medical Records Data Attestation: I reviewed the patient's medical records Lab / Micro Data Attestation: I reviewed the patient's lab results. 06/04/25 22:05 06/04/25 22:05 Labs: Laboratory Results - last 24 hr 06/04/25 22:05: WBC 8.2, RBC 4.57, Hgb 13.6, Hct 41.9, MCV 91.7, MCH 29.8, MCHC 32.5, RDW Std Deviation 44.7 H, RDW Coeff of Mark 13.3, Plt Count 295, MPV 9.7, Immature Gran % (Auto) 0.200, Neut % (Auto) 66.0, Lymph % (Auto) 20.9, [place] % (Auto) 9.4, Eos % (Auto) 3.4, Baso % (Auto) 0.1, Absolute Neuts (auto) 5.4, Absolute Lymphs (auto) 1.72, Nucleated RBC % 0, Sodium 140, Potassium 3.6, Chloride 106, Carbon Dioxide 21.9, Anion Gap 13, BUN 29 H, Creatinine 0.91, Estim Creat Clear Calc 55.82, Est GFR (MDRD) Non-Af 66, BUN/Creatinine Ratio 31.4 H, Glucose 127 H, Lactic Acid 1.2, Calcium 9.2 Assessment & Plan Assessment/Plan (1) Cellulitis: QUALIFIERS: Site of cellulitis: extremity Site of cellulitis of extremity: upper extremity Laterality: right Qualified Code(s): L03.113 - Cellulitis of right upper limb (2) Lymphangitis: (3) Bee sting reaction: QUALIFIERS: Encounter type: sequela Injury intent: undetermined intent Qualified Code(s): T63.444S - Toxic effect of venom of bees, undetermined, sequela (4) Allergic reaction: QUALIFIERS: Encounter type: sequela Qualified Code(s): T78.40XS - Allergy, unspecified, sequela PLAN: Plan 1. Cellulitis/Lymphangitis in the setting of recent Bee Sting with resultant Allergic Reaction - Admit to general medical floor with telemetric monitoring. Continue empiric IV ampicillin-sulbactam begun in ER. Give acetaminophen prn for [id number] (level 1-5/10) pain or fever. Give morphine IV prn for severe (level 6-10/10) pain. Continue as needed IV diphenhydramine. 2. Essential hypertension; on metoprolol twice daily plus spironolactone - Maintain home regimen. 3. Hyperlipidemia; on pravastatin - Resume statin. 4. CAD; s/p CABG - Noted. 5. History of postoperative atrial fibrillation - Noted. 6. History of ascending aortic aneurysm; s/p repair (08/2024) - Stable. 7. History of mitral valve insufficiency - Noted. 8. CKD; stage I-II - Stable with serum creatinine of 0.91 mg/dL, BUN 29 mg/dL and eGFR of 66 mL/min all present on admission which are near her baseline levels. 9. History of Right breast cancer (2010); s/p lumpectomy and reconstruction - Noted. 10. History of hysterectomy - Noted for the sake of completeness. 11. History of acoustic neuroma; s/p removal - Noted. 12. History of recurrent bilateral pleural effusions with subsequent eighth thoracentesis; with ~650 mL of blood-tinged fluid aspirated from the Right lung done here on November 16, 2024 - Noted. 13. DVT prophylaxis - Enoxaparin 40 mg sq daily. Total time: Approximately (but not less than) 40 minutes. Charges/Coding Visit Charges Inpatient E&M: 78402 Init Hosp L1
[2025-06-05 01:42] LABS: Magnesium 2.1 mg/dL (1.5-2.2)
[2025-06-05] MEDS: 0.9% Normal Saline (1000mL) 1,000 ML 70 ML IV (02:09)
[2025-06-05] MEDS: Hydrocortisone 2.5% Ointment 20 gm tube 1 APPLIC TOPICAL ×3 (04:23→20:15)
[2025-06-05 05:45] LABS: Hematocrit 37.9 % (37-47); Hemoglobin 12.7 g/dL (12.0-15.0); Immature Granulocytes Count 0.020 X10^3/uL (0.0-0.0); Mean Corp Hgb Conc 33.5 g/dL (32-36); Mean Corpuscular Volume 91.5 fL (81-99); Mean Platelet Vol. 9.9 fl (6.2-12.0); NRBC Flagged by Analyzer 0 % (0-5); Platelet Count 252 K/mm3 (150-450); RBC Distribution Width CV 13.3 % (11.6-14.6); RBC Distribution Width SD 44.7 fl (35.1-43.9); Red Blood Count 4.14 M/mm3 (4.2-5.4); White Blood Count 7.8 K/mm3 (4.4-11.0)
[2025-06-05] MEDS: Ampicillin/Sulbactam 3 GM in 0.9% Normal Saline (100mL MB+) 100 ML IV ×3 (06:09→22:23)
[2025-06-05] MEDS: 0.9% Saline Lock 10 ML Syringe IV (06:09)
[2025-06-05 06:29] LABS: AST(SGOT) 30 U/L (<=31); Alanine Aminotransfer ALT/SGPT 33 U/L (<=34); Albumin, Serum 3.8 g/dL (3.4-4.8); Alkaline Phosphatase 86 U/L (35-104); Anion Gap 11 (5-15); BUN 23 mg/dL (4-19); BUN/Creat Ratio 29.9 RATIO (10-20); Calcium,Total 8.8 mg/dL (7.6-11.0); Carbon Dioxide 20.7 mmol/L (21.0-32.0); Chloride 109 mmol/L (98-108); Estimated Creatinine Clearance 63.50 ml/min (50-250); Globulin 2.4 g/dL (2.2-4.2); Glucose 102 mg/dL (70-99); Potassium 3.8 mmol/L (3.3-5.1)
--- NOTE | 2025-06-05 07:39 | PN.HOSP_ITS ---
Reason for Visit Chief Complaint: Redness Streaking up Arm after Bee Sting. Objective Data Objective Data Vital Signs: Vital Signs Temp Pulse Resp BP Pulse Ox O2 Del Method 98.3 F 56 L 16 142/82 H 98 Room Air 06/05/25 06:08 06/05/25 06:08 06/05/25 06:08 06/05/25 06:08 06/05/25 06:08 06/05/25 06:08 Oxygen Delivery Method Room Air Weight: 163 lb 12.855 oz Body Mass Index (BMI) 24.3 Intake & Output: Intake and Output for Last 24 Hours 06/03/25 06/04/25 06/05/25 23:59 23:59 23:59 Intake Total 100 / 100 1400 / 1400 Balance 100 / 100 1400 / 1400 Lab / Micro Data 06/05/25 05:10 06/05/25 05:10 Labs: Laboratory Results - last 24 hr 06/04/25 22:05: WBC 8.2, RBC 4.57, Hgb 13.6, Hct 41.9, MCV 91.7, MCH 29.8, MCHC 32.5, RDW Std Deviation 44.7 H, RDW Coeff of Mark 13.3, Plt Count 295, MPV 9.7, Immature Gran % (Auto) 0.200, Neut % (Auto) 66.0, Lymph % (Auto) 20.9, [place] % (Auto) 9.4, Eos % (Auto) 3.4, Baso % (Auto) 0.1, Absolute Neuts (auto) 5.4, Absolute Lymphs (auto) 1.72, Nucleated RBC % 0, Sodium 140, Potassium 3.6, Chloride 106, Carbon Dioxide 21.9, Anion Gap 13, BUN 29 H, Creatinine 0.91, Estim Creat Clear Calc 55.82, Est GFR (MDRD) Non-Af 66, BUN/Creatinine Ratio 31.4 H, Glucose 127 H, Lactic Acid 1.2, Calcium 9.2, Magnesium 2.1 06/05/25 05:10: WBC 7.8, RBC 4.14 L, Hgb 12.7, Hct 37.9, MCV 91.5, MCH 30.7, MCHC 33.5, RDW Std Deviation 44.7 H, RDW Coeff of Mark 13.3, Plt Count 252, MPV 9.9, Immature Gran % (Auto) 0.300, Neut % (Auto) 61.5, Lymph % (Auto) 23.9, [place] % (Auto) 9.9, Eos % (Auto) 4.3, Baso % (Auto) 0.1, Absolute Neuts (auto) 4.8, Absolute Lymphs (auto) 1.85, Nucleated RBC % 0, Sodium 141, Potassium 3.8, C hloride 109 H, Carbon Dioxide 20.7 L, Anion Gap 11, BUN 23 H, Creatinine 0.77, Estim Creat Clear Calc 63.50, Est GFR (MDRD) Non-Af 80, BUN/Creatinine Ratio 29.9 H, Glucose 102 H, Calcium 8.8, Phosphorus 3.8, Total Bilirubin 0.53, AST 30, ALT 33, Alkaline Phosphatase 86, Total Protein 6.2, Albumin 3.8, Globulin 2.4, Albumin/Globulin Ratio 1.6, TSH 1.480 Physical Exam Narrative Seen and examined General: Alert, Oriented x3, Cooperative HEENT: Atraumatic, PERRLA, EOMI, Normocephalic. Oral: No Gingival or Mucosal Lesions/ Ulcerations Neck: Supple, No JVD, Negative Carotid Bruits Chest wall/Lungs: Air entry diminished in bilateral lung bases. No crepitation/rhonchi Cardiovascular: Regular rate and rhythm, Normal S1,S2, No M/G/R Abdomen: Bowel Sounds Present, Soft, Non Tender, Non-Distended : No dysuria. No renal angle tenderness. No suprapubic tenderness. Extremities: No edema, Capillary Refill Less than 3 Seconds Skin: Localized linear area of redness, tenderness mild induration from right thumb to all the way to axillary area. Mild right axillary lymphadenitis with tenderness. Tiny swelling over right thumb over bee sting but no open ulcer. Musculoskeletal: No Tenderness to Palpation of Joints or Extremities Neurological: Cranial nerves II-XII grossly intact, DTR 2+/4. No acute focal neurological deficit. Psych/Mental Status: Normal Affect, Appropriate. Assessment & Plan Assessment/Plan (1) Cellulitis: QUALIFIERS: Laterality: right Site of cellulitis: extremity Site of cellulitis of extremity: upper extremity Qualified Code(s): L03.113 - Cellulitis of right upper limb (2) Lymphangitis: (3) Bee sting reaction: QUALIFIERS: Encounter type: sequela Injury intent: undetermined intent Qualified Code(s): T63.444S - Toxic effect of venom of bees, undetermined, sequela (4) Allergic reaction: QUALIFIERS: Encounter type: sequela Qualified Code(s): T78.40XS - Allergy, unspecified, sequela PLAN: Plan 74-year-old female came to ED after she had a bee sting and left upper extremity cellulitis 1. cellulitis/Lymphangitis in the setting of recent Bee Sting with resultant Allergic Reaction - Admit to general medical floor with telemetric monitoring. On exam, she has increased tenderness swelling over the lateral aspect of forearm, arm proximally advanced from thumb with mild tender axillary lymphadenopathy. Continue empiric IV ampicillin-sulbactam begun in ER. On pain management. Continue as needed IV diphenhydramine. 2. Essential hypertension; on metoprolol twice daily plus spironolactone - Maintain home regimen. 3. Hyperlipidemia; on pravastatin - Resume statin. 4. CAD; s/p CABG, mild MR, ascending aortic aneurysm; s/p repair (08/2024) with transient postop G-hhv-[id number] home cardiac medications DVT prophylaxis - Enoxaparin 40 mg sq daily. Charges/Coding Visit Charges Inpatient E&M: 47486 Subs Hosp L2
[2025-06-05] MEDS: Lactobacillis Acidophilus 1 CAP PO ×4 (07:55→22:22)
[2025-06-05] MEDS: Aspirin E.C. 81 MG Tablet PO (07:55)
[2025-06-05] MEDS: Multivitamin (Healthy Eyes) Capsule 1 CAP PO ×2 (07:55→22:21)
--- NOTE | 2025-06-05 14:00 | CASEMGMT ---
DANIEL HENLEY ASSESSMENT RN CM to room to meet with patient for initial transition planning/care coordination assessment. DANIEL HENLEY introduced self and role at [facility]. Pt voices understanding and consents to assessment at this time. Pt resting in bed in no distress at this time. and daughter @ bedside, visiting. Pt agreeable to both being present during assessment. Pt is A/O at this time and answers all questions appropriately. Care providers, pharmacy, and demographics verified/updated at this time. PCP: Dr Parsons Specialists:[facility]/Cardiology Preferred [facility]acy: [facility] Insurance: Adri GUZMAN Prescription Benefit: yes LNOK: Dominic. 3 adult children. Living Arrangements: Lives w/ in tri-level home w/1-2 steps to enter. There are 7 steps to get from family room to bedrooms. Pt is independent w/ADL's and IADL's. Transportation: Pt states drives self and states no transportation concerns at this time. also drives. DME: Denies using any DME and denies needs. HHC/SNF: No hx of either. No needs identified. 6 clicks: 24. No therapy ordered. Rt hand & arm edematous, elevated on pillow. Pt states if she would have any limitations w/movement to her right hand that her oldest daughter is an OT and is a hand specialist. She states she would f/u with her re: OP OT exercises, if needed. Pt wishes to return home and states has no concerns with going home at time of discharge. Pt and family voices no concerns/needs at this time. PLAN: Home. Josh VELÁSQUEZ RN, CM
[2025-06-06 03:00] VITALS: BP 139/68; PULSE 58; RESP 16; TEMP 36.6; O2SAT 98
[2025-06-06 06:00] VITALS: BMI 23.8
[2025-06-06] MEDS: Ampicillin/Sulbactam 3 GM in 0.9% Normal Saline (100mL MB+) 100 ML IV ×2 (06:17→13:03)
[2025-06-06 08:00] VITALS: PULSE 56
[2025-06-06 08:12] VITALS: BP 152/68; PULSE 56; RESP 18; TEMP 36.3; O2SAT 98
[2025-06-06] MEDS: Lactobacillis Acidophilus 1 CAP PO ×2 (08:25→13:06)
[2025-06-06] MEDS: Multivitamin (Healthy Eyes) Capsule 1 CAP PO (08:25)
[2025-06-06] MEDS: Aspirin E.C. 81 MG Tablet PO (08:26)
--- NOTE | 2025-06-06 09:46 | PCM.DC ---
Discharge Instructions DC O2, CPAP, BIPAP needs Home O2 Discharge instructions: No Dressing / Incision Discharge Activity: Return to Normal Activity Weight Bearing Status: Weight bearing as tolerated Dressing / Incision Call your doctor if you observe: Fever of 101 or Higher, Coldness, Increased Pain, Numbness or Tingling, Change in Color, Inability to urinate, Inability to have a bowel movement, Shortness of breath, Dizziness, Fainting spells, Swelling in the ankles, Chest pain, Prolonged hiccupping, Increased palpitations (irregular heartbeat) and Calf discomfort Follow Up Care When: IN 2 WEEKS Test Results: Test results from this visit will be discussed in further detail at your follow-up appointment, if applicable. Discharge Plan Admission Admit Date/Time: 06/05/25 00:33 Attending Provider: Hu Perez Primary Care Provider: Berna Parsons Consulting Providers: Nelson Hua Discharge Orders/Prescriptions Prescriptions: New L.acidoph,saliva-B.bif-S.therm 175 mg Capsule 1 cap PO 2XD Qty: 0 0RF Rx Instructions: Outg-nsx-lvunioe probiotic amoxicillin-pot clavulanate 875-125 mg tablet 1 tab PO BID 6 Days Qty: 12 0RF Continued olopatadine 0.1 % drops 1 drp OPHTHALMIC BID PRN (Reason: dry eye(s)) PreserVision AREDS-2 250-90-40-1 mg capsule 1 tab PO BID pravastatin 20 mg tablet 20 mg PO QDAY multivitamin Tablet 1 tab PO DAILY aspirin [Adult Low Dose Aspirin] 81 mg tablet,delayed release (DR/EC) 81 mg PO QDAY vit B complx-folic ac-C-biotin 1 mg-60 mg- 300 mcg tablet 1 tab PO DAILY beta carotene 10,000 unit capsule 7,500 mcg PO QDAY Rx Instructions: administer with a meal Allergy Relief (loratadine) 10 mg capsule 10 mg PO QDAY PRN (Reason: allergy symptoms) fluticasone propionate 50 mcg/actuation spray,suspension 1 spray intranasal QDAY PRN (Reason: nasal congestion) Rx Instructions: administer into each nostril acetaminophen 500 mg tablet 500 mg PO BID metoprolol tartrate 25 mg tablet 25 mg PO BID Qty: 180 3RF spironolactone 25 mg tablet 25 mg PO DAILY Qty: 90 3RF Held biotin 1,000 mcg tablet,chewable 1,000 mcg PO QDAY Hold Instructions: Hold while taking antibiotic as it impairs the absorption. Referrals / Follow Up: Berna Parsons MD [Primary Care Provider, Internal Medicine] - Within 2 Weeks Disposition Disposition (needs filled in before D/C Order can be placed): Home, Self Care
--- NOTE | 2025-06-06 09:51 | PCM.DC.SUM ---
Providers Date of Admission: 06/04/25 Date of Discharge: 06/06/25 Primary Care Physician: Dr. Berna Parsons MD Reason For Visit: CELLULITIS/LYMPHAGITIS OF RUE AFTER BEE STING Diagnosis Discharge Diagnosis (1) Cellulitis: Status: Acute Code(s): L03.90 - Cellulitis, unspecified Qualifiers: Site of cellulitis: extremity Site of cellulitis of extremity: upper extremity Laterality: right Qualified Code(s): L03.113 - Cellulitis of right upper limb (2) Lymphangitis: Status: Acute Code(s): I89.1 - Lymphangitis (3) Bee sting reaction: Status: Acute Code(s): T63.441A - Toxic effect of venom of bees, accidental (unintentional), initial encounter Qualifiers: Encounter type: sequela Injury intent: undetermined intent Qualified Code(s): T63.444S - Toxic effect of venom of bees, undetermined, sequela (4) Allergic reaction: Status: Acute Code(s): T78.40XA - Allergy, unspecified, initial encounter Qualifiers: Encounter type: sequela Qualified Code(s): T78.40XS - Allergy, unspecified, sequela Plan 74-year-old female came to ED after she had a bee sting and left upper extremity cellulitis 1. cellulitis/Lymphangitis in the setting of recent Bee Sting with resultant Allergic Reaction - Admit to general medical floor with telemetric monitoring. On exam, she has increased tenderness swelling over the lateral aspect of forearm, arm proximally advanced from thumb with mild tender axillary lymphadenopathy. Continue empiric IV ampicillin-sulbactam begun in ER. On pain management. Continue as needed IV diphenhydramine. 06/06: Lymphangitis and cellulitis has 80 to 90% improved with no redness tenderness or swelling. Right axillar lymphadenopathy also not tender or palpable. Patient is discharged on 6 more days of Augmentin. Follow with PCP 05/31 continue home medications. Home medication reconciliation done 2. Essential hypertension; on metoprolol twice daily plus spironolactone - Maintain home regimen. 3. Hyperlipidemia; on pravastatin - Resume statin. 4. CAD; s/p CABG, mild MR, ascending aortic aneurysm; s/p repair (08/2024) with transient postop [id number] home cardiac medications DVT prophylaxis - Enoxaparin 40 mg sq daily. Discharge medication reconciliation done. Discharge follow-up instructions completed. Discharge process discussed with the patient and all questions were answered to patient's satisfaction. Follow with PCP in 1 to 2 weeks Total time spent, exact 35 minutes on discharge meds reconciliation, examination, coordination of care with nurses and ancillary staff, review of imaging and blood test and discussion with the patient on follow-up instructions. Medications at Discharge Home Medications olopatadine 0.1 % eye drops 1 drp ophthalmic (eye) BID PRN dry eye(s) 04/30/19 multivitamin 1 tab PO DAILY 03/11/24 pravastatin 20 mg tablet 20 mg PO QDAY 03/11/24 vit C 250 mg-vit E 90 mg-zinc 40 mg-copper 1 zs-bvgrsh-jyjxzh capsule (PreserVision AREDS-2) 1 tab PO BID 03/11/24 aspirin 81 mg tablet,delayed release (Adult Low Dose Aspirin) 81 mg PO QDAY 09/03/24 beta carotene 10,000 unit capsule 7,500 mcg PO QDAY 09/03/24 loratadine 10 mg capsule (Allergy Relief (loratadine)) 10 mg PO QDAY PRN allergy symptoms 09/03/24 vitamin B complex-folic acid 1 mg-vit C 60 mg-biotin 300 mcg tablet 1 tab PO DAILY 09/03/24 metoprolol tartrate 25 mg tablet 25 mg PO BID #180 tabs 09/21/24 spironolactone 25 mg tablet 25 mg PO DAILY #90 tabs 12/08/24 acetaminophen 500 mg tablet 500 mg PO BID Aug 2024 01/18/25 biotin 1,000 mcg chewable tablet 1,000 mcg PO QDAY 01/18/25 Held on 06/06/25. Instructions: Hold while taking antibiotic as it impairs the absorption. fluticasone propionate 50 mcg/actuation nasal spray,suspension 1 spray intranasal QDAY PRN nasal congestion 01/18/25 L.acidophil,salivari-Bifido bifidum-Strep thermoph 175 mg capsule 1 cap PO 2XD #0 caps 06/06/25 amoxicillin 875 mg-potassium clavulanate 125 mg tablet 1 tab PO BID 6 days #12 tabs 06/06/25 Physical Exam Narrative Seen and examined 8090% resolution of redness of right lower extremity including pain and tenderness. Physical exam: General: Alert, Oriented x3, Cooperative HEENT: Atraumatic, PERRLA, EOMI, Normocephalic. Oral: No Gingival or Mucosal Lesions/ Ulcerations Neck: Supple, No JVD, Negative Carotid Bruits Chest wall/Lungs: Air entry diminished in bilateral lung bases. No crepitation/rhonchi Cardiovascular: Regular rate and rhythm, Normal S1,S2, No M/G/R Abdomen: Bowel Sounds Present, Soft, Non Tender, Non-Distended : No dysuria. No renal angle tenderness. No suprapubic tenderness. Extremities: No edema, Capillary Refill Less than 3 Seconds Skin: Redness tenderness and induration as resolved on the right upper extremity. Tiny swelling over right thumb over bee sting but no open ulcer looks more dry. Musculoskeletal: No Tenderness to Palpation of Joints or Extremities Neurological: Cranial nerves II-XII grossly intact, DTR 2+/4. No acute focal neurological deficit. Psych/Mental Status: Normal Affect, Appropriate. Weight / BMI Weight Weight: 160 lb 14.999 oz Body Mass Index (BMI) 23.8 ABG / Lab / Microbiology Data 06/05/25 05:10 06/05/25 05:10 D/C Instructions Weight Bearing Status: Weight bearing as tolerated Call your doctor if you observe: Fever of 101 or Higher, Coldness, Increased Pain, Numbness or Tingling, Change in Color, Inability to urinate, Inability to have a bowel movement, Shortness of breath, Dizziness, Fainting spells, Swelling in the ankles, Chest pain, Prolonged hiccupping, Increased palpitations (irregular heartbeat) and Calf discomfort DC O2, CPAP, BIPAP Needs Home O2 Discharge instructions: No When: IN 2 WEEKS Meaningful Use Info Meaningful Use Meaningful Use Diagnoses (Choose all that apply): None applicable Discharge Plan Admission Admit Date/Time: 06/05/25 00:33 Attending Provider: Hu Perez Primary Care Provider: Berna Parsons Consulting Providers: Nelson Hua Discharge Orders/Prescriptions Prescriptions: New L.acidoph,saliva-B.bif-S.therm 175 mg Capsule 1 cap PO 2XD Qty: 0 0RF Rx Instructions: Bkha-ril-ycbmbdr probiotic amoxicillin-pot clavulanate 875-125 mg tablet 1 tab PO BID 6 Days Qty: 12 0RF Continued olopatadine 0.1 % drops 1 drp OPHTHALMIC BID PRN (Reason: dry eye(s)) PreserVision AREDS-2 250-90-40-1 mg capsule 1 tab PO BID pravastatin 20 mg tablet 20 mg PO QDAY multivitamin Tablet 1 tab PO DAILY aspirin [Adult Low Dose Aspirin] 81 mg tablet,delayed release (DR/EC) 81 mg PO QDAY vit B complx-folic ac-C-biotin 1 mg-60 mg- 300 mcg tablet 1 tab PO DAILY beta carotene 10,000 unit capsule 7,500 mcg PO QDAY Rx Instructions: administer with a meal Allergy Relief (loratadine) 10 mg capsule 10 mg PO QDAY PRN (Reason: allergy symptoms) fluticasone propionate 50 mcg/actuation spray,suspension 1 spray intranasal QDAY PRN (Reason: nasal congestion) Rx Instructions: administer into each nostril acetaminophen 500 mg tablet 500 mg PO BID metoprolol tartrate 25 mg tablet 25 mg PO BID Qty: 180 3RF spironolactone 25 mg tablet 25 mg PO DAILY Qty: 90 3RF Held biotin 1,000 mcg tablet,chewable 1,000 mcg PO QDAY Hold Instructions: Hold while taking antibiotic as it impairs the absorption. Referrals / Follow Up: Berna Parsons MD [Primary Care Provider, Internal Medicine] - Within 2 Weeks Disposition Disposition (needs filled in before D/C Order can be placed): Home, Self Care Charges/Coding Visit Charges Inpatient E&M: 79283 Disch Hosp >30min
[2025-06-06] MEDS: Hydrocortisone 2.5% Ointment 20 gm tube 1 APPLIC TOPICAL (10:24)
[2025-06-06 10:25] VITALS: PULSE 62
[2025-06-06 13:15] VITALS: BP 143/64; PULSE 57; RESP 17; TEMP 36.4; O2SAT 98
== END 2025-06-06 14:13 | disposition home or self-care (01) ==
LOC: ED 22:45 → MS3 06-05 07:18
PROVIDERS: Admitting Provider Internal Medicine; Emergency Provider Student in an Organized Health Care Education/Training Program; PCP Internal Medicine; Visit Provider Internal Medicine
DX: L03.113 Cellulitis of right upper limb (principal); E78.5 Hyperlipidemia, unspecified; I12.9 Hypertensive chronic kidney disease with stage 1 through stage 4 chronic kidney disease, or unspecified chronic kidney disease; N18.2 Chronic kidney disease, stage 2 (mild); I25.10 Atherosclerotic heart disease of native coronary artery without angina pectoris; I89.1 Lymphangitis; Z95.1 Presence of aortocoronary bypass graft; Z79.899 Other long term (current) drug therapy; Z85.3 Personal history of malignant neoplasm of breast; Z79.82 Long term (current) use of aspirin; T63.441A Toxic effect of venom of bees, accidental (unintentional), initial encounter; Z79.51 Long term (current) use of inhaled steroids
CPT/HCPCS: 36415; 80048; 80053; 83605; 83735; 84100; 84443; 85025; 87040; 94668; 96361; 96365; 96366; 96372; 99221; 99284; A4216; G0378; J0295

== ENCOUNTER → 2025-07-06 | Outpatient (CLI) | payer MEDICARE, SELFPAY ==
[2024-11-02 14:51] VITALS: BMI 23.1
--- NOTE | 2025-07-06 10:28 | BD_ITS ---
PROCEDURE: DEXA BONE DENSITY STUDY 07/06/2025 REASON FOR EXAM: OSTEOPOROSIS F, age 74 y/o . Postmenopausal. TECHNIQUE: Procedure Code: BDDBD Modality: DX Procedure: DEXA BONE DENSITY STUDY COMPARISON: August 16, 2022 FINDINGS: BMD and T-SCORES Lumbar spine: 1.091 g/cm2, T-score 0.4 Levels: L1 through L4 Change from prior: Loss of 1.6%. Left femoral neck: 0.648 g/cm2, T-score -1.8 Femoral neck comparison data not recommended for monitoring change. Left total hip: 0.767 g/cm2, T-score -1.4 Change from prior: Loss of 3.1%. Right femoral neck: 0.653 g/cm2, T-score -1.8 Femoral neck comparison data not recommended for monitoring change. Right total hip: 0.741 g/cm2, T-score -1.6 Change from prior: Loss of 10.6%. The World Health Organization has defined the following categories based on bone density: Normal bone density: T-score equal to or greater than -1.0 Osteopenia: T-score between -1.0 and -2.5 Osteoporosis: T-score equal to or less than -2.5 FRAX (or Comparable) Fracture Risk Assessment: 10 Year Probability of Fracture: Major Osteoporotic Fracture: 30% Hip Fracture: 60% (Note: FRAX is not to be reported in setting of normal range bone density, osteoporosis on DEXA, known history of osteoporosis, prior osteoporotic hip or vertebral fracture, or for any patient undergoing pharmacological treatment for bone loss.) The National Osteoporosis Foundation (NOF) recommends pharmacological treatment for patients with a FRAX 10-year risk of 3% or higher for a hip fracture, or 20% or higher for a major osteoporotic fracture, to prevent osteoporosis and reduce fracture risk. The patient does meet the pharmacological treatment recommendations for prevention of osteoporosis. BD/Dexa Bone Density Study IMPRESSION: OSTEOPENIA. Recommend follow-up as clinically warranted. Reading Location: [id number]
== END | disposition home or self-care (01) ==
LOC: OPBD 10:24
PROVIDERS: PCP Internal Medicine; Referring Provider Student in an Organized Health Care Education/Training Program; Visit Provider Student in an Organized Health Care Education/Training Program
DX: M81.0 Age-related osteoporosis without current pathological fracture (principal)
CPT/HCPCS: 77080

== ENCOUNTER 2025-07-08 12:01 | Outpatient (RCR) | payer SELFPAY ==
[2024-11-02 14:51] VITALS: BMI 23.1
== END 2025-07-09 23:59 ==
LOC: NS 12:01
PROVIDERS: PCP Internal Medicine
DX: Z71.3 Dietary counseling and surveillance (principal)

== ENCOUNTER → 2025-07-30 | Outpatient (CLI) | payer MEDICARE, SELFPAY ==
[2024-11-02 14:51] VITALS: BMI 23.1
[2025-07-30 11:03] LABS: Vitamin D,25 Hydroxy 32.6 ng/mL (30-100)
== END | disposition home or self-care (01) ==
LOC: LAB 09:04
PROVIDERS: PCP Internal Medicine; Referring Provider Internal Medicine; Visit Provider Internal Medicine
DX: M85.80 Other specified disorders of bone density and structure, unspecified site (principal)
CPT/HCPCS: 36415; 82306

== ENCOUNTER 2025-08-10 14:00 | Outpatient (RCR) | payer MEDICARE, SELFPAY ==
[2024-11-02 14:51] VITALS: BMI 23.1
--- NOTE | 2025-06-22 12:23 | HP.PTEVAL ---
Patient's Visit Information Visit Information Visit Information: BOB JACOB is a 74 year old F referred to Physical Therapy by CHRISTIAN Monique with a diagnosis of DDD. Date of Evaluation: 06/22/25 Physical Therapist: Roman Pickard, DPT, OCS, CSCS Visit Plan Frequency: 2-3x /Week Duration: 2-4 Weeks Plan: 2-3x/week for 2-4 weeks for Teach and progress mat based core strength(supeerman, bugs, quadruped, hips, crunches to HEP) then general ex band pulls, pull downs, squats, heel raises, lat band walks, RDL to HEP with picslist Subjective Subjective: Has feet numbness in toes. Trying to figure out why as she had NCT. Said it was not her back. Sent to ortho anyway and MRI found bulging discs and stenosis but not explaining her foot numbness. Open heart surgery last August. Walks for that purpose. walks 3 miles per day. Tires easily. Is also painful in feet if doesn't take tylenool. 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 Surgery wouod be an option for that. Wanted to put her on diabetic medication. Goal is to find reason for foot numbness. MRI showed DDD and 6 bulges. Not much back pain unless twists wrong way or picking it up wrong. Hurts afterwards for a day or so 4/10. Back pain slows her down but most activites are normal due to back. tingling in calf L but otherwise legs are good adn that is new. ortho recommended neuro visit, will geet it scheduled. Sleep is OK , normal for her. 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 Hobbies: knit basic aDLs, dress, bathroom, shower all I. No falls, no spinning . Pain foot pain: Pain Intensity (Out of 10): 2 Pain Intensity Range: 1 and 4 Objective Objective: Walks into PT I without gait deviations and 2/10 pain in toes 2/3 B. Trasnfer chair and bed I, steps reciprocal with one rail without deficits. Lumbar AROM normal and no pain. HS mild tight at -20 90/90 test. Core weak at 3 in flexion adn 3 in ext. Hip and knee and ankle aROM WFL and functional without pain. reflexees 1/3 B patella joy achilles Snsation LE WNL but toes are tingly and numby 2/3 L>R. Coordination to reciprocal tapping heels and toes is good. strength hips 4- abd and ext, 4- with core instability in flexion. knees 4- knee ext adn flexion without pain, ankls 4+/5 all directions Pulse in feet is good pedally and medial lateral B. Overall no obvious deficits leading to foot numbnmess but management of infrequent back pain and general activity is neded. Balance/Special Test Scores Oswestry Low Back Score: 10 Goals Goal 1:: I appropriate HEP for core strength adn general ex via HEP with pics and list. Goal Time Frame: 4-6 Weeks Goal 2:: Patient feel confidence in workout and back with lifting 50% better Goal Time Frame: 4-6 Weeks Goal 3:: 6 or btter oswestry score Goal Time Frame: 2-4 Weeks Rehabilitation Potential Physical Therapy Diagnosis: some weakness of core obviou and may be contributing to back pain Rehabilitation Potential: Fair Anticipated Interventions Patient/Client Instruction: Educate patient on: Condition and Plan of Care For the Purpose of:: To decrease pain, To improve nutrient delivery to tissue, To improve muscle performance and motor function, To improve ability of physical actions for home/community/work/leisure and To improve health of tissue Therapeutic Exercise to Include: Strength training, Postural training, Flexibilty training and Dynamic Lumbar Stabilization For the Purpose of:: To decrease pain, To improve nutrient delivery to tissue, To improve muscle performance and motor function, To increase tolerance to activity/condition/position and To improve gait and locomotor functions Text: Thank you for the opportunity to evaluate your patient. For Medicare and Medicare HMO plans, please review the plan of care and approve it. It will need to be FAXED BACK to us at [phone] for Medicare purposes. For Medicare only, by signing this I certify the plan of care. Please let me know if there are questions or concerns regarding this plan of care. Physician Signature: Date:
--- NOTE | 2025-08-10 14:25 | HP.PTDCSUM ---
Discharge Summary D/C summary: It has been my pleasure to treat BOB JACOB referred by Alicia Roldan NP-Andree, with the diagnosis of DDD for a total of 7 visit(s). Discharge Date: 08/10/25 Please see the following information for a summary of their discharge status. Subjective Subjective: Doing OK. HEP going well. Not as much as I should. Not too much pain lately. To neuro in October. Sleeping well. Sometimes gets cramps in legs and needs to straighten legs. Numbnss persists in calf L and cramping in calf. Pain foot pain: Pain Intensity (Out of 10): 7 Overall Improvement % Improvement: 85 Objective Objective/Function: Good LB ROM today with just slight pinch with extension on L central LB transiently. walking well, bending well. No pain today. Been doing HEP for the last month I and feels she can continue herself. Goals Goal 1:: I appropriate HEP for core strength adn general ex via HEP with pics and list. Goal Progress: Goal Met Goal 2:: Patient feel confidence in workout and back with lifting 50% better Goal Progress: Goal Met Goal 3:: 6 or btter oswestry score Goal Progress: Progressing Plan Plan: d/c to HEP D/C Information d/c sentence: If there are questions or concerns regarding this patient's physical therapy, please feel free to call me at [phone]. Thank you for the referral of this patient. Sincerely, Roman Pickard, DPT, OCS, CSCS Balance/Gait/Functional tests Balance/Special Test Scores Oswestry Low Back Score: 7 Improvement % Improvement: 85
== END 2025-08-10 19:00 | disposition home or self-care (01) ==
LOC: PT 14:00
PROVIDERS: PCP Internal Medicine; Referring Provider Nurse Practitioner Family; Visit Provider Nurse Practitioner Family
DX: M51.369 Other intervertebral disc degeneration, lumbar region without mention of lumbar back pain or lower extremity pain (principal)
CPT/HCPCS: 97110; 97162; 97164; 97530